=== PATIENT | female | born 1950 | race Caucasian/White ===

== ENCOUNTER 2022-12-22 08:38 | Outpatient (OUT) | payer OTHER, SELFPAY ==
--- NOTE | 2022-12-22 08:52 | US_ITS ---
The [address] [address] Patient Name: BHUPENDRA MIRANDA MRN: [id number] date: 1950 Sex: F Assigned Patient Location: US Current Patient Location: US Accession/Order Number: [id number] Exam Date: 12/22/2022 08:53 Report Date: 12/22/2022 09:41 At the request of: SHAIKH AMRITA Procedure: US right upper quadrant Ultrasound abdomen right upper quadrant HISTORY: Abdominal Pain In Female R10.9 right upper quadrant pain for one year. COMPARISON: None. TECHNIQUE: Dedicated transabdominal right upper quadrant ultrasound was performed. FINDINGS: Gallbladder is surgically absent. The proximal common bile duct measures 5 mm in diameter. There is no intrahepatic bile duct dilatation. Liver demonstrates diffusely increased echogenicity. No discrete liver lesion is seen. The visualized pancreas is normal. Portions of the pancreas are obscured by overlying bowel gas. The right kidney measures 10.3 x 4.8 x 4.5 cm, with a small cyst at the upper pole measuring 0.9 cm. There is no hydronephrosis in the right kidney. There is no fluid in the right upper quadrant. IMPRESSION: 1. Cholecystectomy with normal caliber common bile duct at 5 mm. 2. Diffuse fatty infiltration of the liver. 3. Right kidney with a 0.9 cm cyst. No hydronephrosis. Electronically authenticated by: JUWAN RIOS Date: 12/22/2022 09:41
== END 2022-12-22 08:39 ==
PROVIDERS: PCP Internal Medicine; Visit Provider Internal Medicine
DX: R10.9 Unspecified abdominal pain (principal); Z90.49 Acquired absence of other specified parts of digestive tract
CPT/HCPCS: 76705

== ENCOUNTER 2023-06-26 10:20 | Outpatient (OUT) | payer OTHER, SELFPAY ==
[2023-06-26 10:58] LABS: Basophils Absolute Auto 0.1 10^3/uL (0.0-0.1); Basophils Percent Auto 0.8 % (0.2-2.0); Eosinophils Absolute Auto 0.1 10^3/uL (0.0-0.7); Eosinophils Percent Auto 0.8 % (0.9-7.0); Hematocrit 47.2 % (36.0-48.0); Hemoglobin 14.4 g/dL (12.0-16.0); Immature Granulocytes Abs Auto 0.04 10^3/uL (0.00-0.03); Immature Granulocytes Pct Auto 0.3 % (0.0-0.5); Lymphocytes Absolute Auto 3.2 10^3/uL (1.2-3.8); Lymphocytes Percent Auto 26.1 % (20.5-60.0); Mean Corpuscular HGB Conc 30.5 g/dL (29.9-35.2); Mean Corpuscular Hemoglobin 28.3 pg (26.7-34.0); Mean Corpuscular Volume 92.9 fL (81.0-99.0); Mean Platelet Volume 10.1 fL (9.5-13.5); Monocytes Percent Auto 8.3 % (1.7-12.0); Neutrophils Absolute Auto 7.9 10^3/uL (1.4-6.5); Neutrophils Percent Auto 63.7 % (43.0-75.0); Platelet Count 402 10^3/uL (150-450); Red Blood Count 5.08 10^6/uL (4.20-5.40); Red Cell Distribution Width 15.9 % (11.0-15.0); White Blood Count 12.4 10^3/uL (4.0-11.0)
[2023-06-26 10:59] LABS: Cholesterol 213 mg/dL (<=200); HDL Cholesterol 53 mg/dL (40-60); Thyroid Stimulating Hormone 1.944 uIU/mL (0.358-3.740); Triglycerides 153 mg/dL (<=150); VLDL CHOLESTEROL 30.6 mg/dL
== END 2023-06-26 10:21 | disposition home or self-care (01) ==
LOC: LAB 10:21
PROVIDERS: PCP Internal Medicine; Visit Provider Internal Medicine
DX: D72.829 Elevated white blood cell count, unspecified (principal); G62.9 Polyneuropathy, unspecified; E78.5 Hyperlipidemia, unspecified; G25.81 Restless legs syndrome; K59.04 Chronic idiopathic constipation
CPT/HCPCS: 36415; 80061; 82607; 82728; 82746; 84443; 85025

== ENCOUNTER 2024-01-25 14:31 | Outpatient (OUT) | payer MEDICARE, SELFPAY ==
--- NOTE | 2024-01-25 14:40 | PE_ITS ---
The [address] [address] Patient Name: BHUPENDRA MIRANDA MRN: [id number] date: 1950 Sex: F Assigned Patient Location: PETCT Current Patient Location: PETCT Accession/Order Number: [id number] Exam Date: 01/25/2024 15:39 Report Date: 01/25/2024 23:12 At the request of: SHAIKH AMRITA Procedure: PET skull to mid thigh PET/CT: HISTORY: Pulmonary nodule. COMPARISON: CT chest 12/27/2023, 11/11/2022, CTA abdomen 11/11/2022, CT chest 07/24/2022. TECHNIQUE: The patient was injected with 13.58 mCi of F-18 fluorodeoxyglucose (FDG), and an emission scan was performed from the base of the skull to the mid thigh. Noncontrast CT was performed for attenuation correction and anatomic localization. The blood glucose level was 93 mg/dl. The uptake time was 52 minutes. FINDINGS: HEAD AND NECK: There is a hypermetabolic right parotid nodule on image 20, SUV max 7.1 measuring 6 mm. CHEST: The SUVmax of the mediastinum = 3.2 using the patient's body weight as the normalization method. There is a hypermetabolic pulmonary nodule in the left upper lobe on image 93, SUV max 21.2 measuring 2.4 x 1.8 cm. There is no hypermetabolic mediastinal or hilar adenopathy. ABDOMEN AND PELVIS: There is a focus of increased activity within the ascending colon on image 182 with SUV max 22.4. There is no definite CT correlate. Otherwise normal distribution of activity. MUSCULOSKELETAL SYSTEM: There is intense increased activity adjacent to the right AC joint in the shoulder consistent with degenerative changes. There is an otherwise normal distribution of FDG in the bone marrow. ADDITIONAL CT FINDINGS: There is mild mucosal thickening of the left maxillary sinus consistent with chronic sinusitis. There is severe coronary artery calcification and there is diffuse calcification throughout the thoracoabdominal aorta, iliac and femoral arteries. There is an infrarenal abdominal aortic aneurysm measuring 3.6 x 3.1 cm. This is slightly increased in size compared to the CTA from 11/11/2022 where it was 3.3 x 3.3 cm. The patient is status post hysterectomy. PET/PET skull to mid thigh IMPRESSION: 1. Hypermetabolic left upper lobe pulmonary nodule consistent with malignancy. 2. Hypermetabolic right parotid lesion which may represent a benign parotid neoplasm but a primary malignancy and metastatic disease are not entirely excluded. Consider follow-up CT or MRI of the neck with contrast in 3 months. 3. Focus of increased activity in the ascending colon which may be physiologic in nature but a benign or malignant polyp cannot be excluded. Consider colonoscopy. 4. Additional CT findings as described above including a 3.6 x 3.1 cm abdominal aortic aneurysm. Recommend follow-up every one year. ABDOMINAL AORTIC ANEURYSM MANAGEMENT RECOMMENDATIONS: 2.6-2.9 cm: Follow-up every 5 years* 3.0-3.4 cm: Follow-up every 3 years. 3.5-3.9 cm: Follow-up every 1 year. 4.0-4.4 cm: Follow-up every 1 year. Recommend vascular consultation. 4.5-5.4 cm: Follow-up every 6 months. Recommend vascular consultation. Greater than or equal to 5.5 cm: Referral to vascular surgeon. *For abdominal aortas with maximum diameter of 2.6-2.9 cm meeting criteria for AAA (>50% of proximal normal segment). Reference: J Vasc Surg. 2009 Apr;50(4 Suppl):S2-49 Electronically authenticated by: ROMEL ACOSTA Date: 01/25/2024 23:12
== END 2024-01-25 14:32 | disposition home or self-care (01) ==
PROVIDERS: PCP Internal Medicine; Visit Provider Internal Medicine
DX: R91.8 Other nonspecific abnormal finding of lung field (principal)
CPT/HCPCS: 78815; A9552

== ENCOUNTER 2024-02-12 13:19 | Outpatient (OUT) | payer MEDICARE, SELFPAY ==
--- OUTSIDE RECORDS SUMMARY | 2024-02-12 13:29 | XMS_ITS | CCD ---
Author Organization [facility] Care Team Providers Care Sensor Technician Name Role Phone FAWWAD, RO H Admitting Unavailable FAWWAD, RO H Attending Unavailable FAWWAD, RO H Primary Care Unavailable FAWWAD, RO H Consulting Unavailable FAWWAD, RO H Admitting Unavailable FAWWAD, RO H Attending Unavailable FAWWAD, RO H Primary Care Unavailable DR ROMEL CERVANTES Consulting Unavailable FAWWAD, RO H Consulting Unavailable FAWWAD, RO H Admitting Unavailable FAWWAD, RO H Attending Unavailable FAWWAD, RO H Primary Care Unavailable DR ROMEL CERVANTES Consulting Unavailable FAWWAD, RO H Consulting Unavailable SAMSA ., LEIGH Admitting Unavailable SAMSA ., LEIGH Attending Unavailable FAWWAD, RO H Primary Care Unavailable SAMSA ., LEIGH Consulting Unavailable RASTEGAR, RADHA Consulting Unavailable FAWWAD, RO H Admitting Unavailable FAWWAD, RO H Attending Unavailable FAWWAD, RO H Primary Care Unavailable FAWWAD, RO H Primary Care Unavailable AMANDA PINEDO Admitting Unavailable AMANDA PINEDO Attending Unavailable TIAGO THOMSON Consulting UnavailAMANDA Penn Consulting Unavailable LAYNE HO Consulting Unavailable THOMAS, ANDRES Consulting Unavailable DR ARMANDO EASLEY Admitting Unavailable TRISTA Morgan, DR ROBERTS Attending Unavailable FAWWAD, RO H Primary Care Unavailable DR ARMANDO EASLEY Consulting Unavailable FAWWAD, RO H Admitting Unavailable FAWWAD, RO H Attending Unavailable FAWWAD, RO H Primary Care Unavailable FAWWAD, RO Primary Care Physician Cherelle Bautista Unavailable Nigel Valladares Unavailable [phone] Armando RIVERA Attending Unavailable [facility], [facility] Primary Care Unavailable Lianet, Brigette A Attending Unavailable Lianet, Brigette A Admitting Unavailable [facility], [facility] Primary Care [facility]available [facility] Primary Care Unavailable FAWWAD, [facility] Primary Care Unavailable Lianet, Brigette A Attending Unavailable Armando RIVERA Attending Unavailable FAWWAD, [facility] Primary Care Unavailable Lianet, Brigette A Attending Unavailable FAWWAD, [facility] Primary Care Unavailable Lianet, Brigette A Referring Unavailable Lianet, Brigette A Admitting Unavailable Lianet, Brigette A Attending Unavailable Lianet, Brigette A Referring Unavailable Lianet, Brigette A Admitting Unavailable [facility] Primary Care Unavailable Lianet, Brigette A Attending Unavailable Lianet, Brigette A Admitting Unavailable [facility], [facility] Primary Care Unavailable Aung FARFAN, [facility] Primary Care Provider Shaikh Horan MD Unavailable MD Aung [facility] Primary Care Provider [phone] MD Bernardino Gifford Emergency Provider VONDA Bautista Attending Provider SHAIKH HORAN Attending Unavailable SHAIKH HORAN Attending Unavailable AUNG RO Attending Unavailable SHAIK HORANH Attending Unavailable Bernardino Gifford Attending Unavailable Bernardino Gifford Admitting Unavailable [facility] Primary Care Unavailable [facility], [facility] Primary Care Unavailable Cherelle Bautista Attending Unavailable Cherelle Bautista Admitting Unavailable Cherelle Bautista Attending Unavailable Cherelle Bautista Admitting Unavailable Allergies Allergy Classification Reported Allergen(s) Allergy Type Date of Onset Reaction(s) Facility (1 source) No Known Medication Allergies; 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: [No Known Medication Allergies] Propensity to adverse reactions (disorder) [facility] Repository Medications Current Medications Medication Drug Class(es) Dates Sig (Normalized) Sig (Original) 30 ACTUAT fluticasone furoate 0.2 MG/ACTUAT / umeclidinium 0.0625 MG/ACTUAT / vilanterol 0.025 MG/ACTUAT Dry Powder Inhaler [Trelegy] (2 sources) Trelegy Ellipta 200-62.5-25 MCG/ACT Inhalation for 30 Days Active [id number] 200 actuat albuterol 0.09 mg/actuat metered dose inhaler (3 sources) beta2-Adrenergic Agonist Start: 12-30-2023 Albuterol Sulfate Active INHALATION December 30, 2023 12:00am Start: 07-02-2023 take 2 puff(s) by in halation every four hours albuterol HFA 90 mcg/act inhaler Inhale 2 puffs every 4 (four) hours if needed for shortness of breath 0 07/02/2023 Active aspirin 81 mg delayed release oral tablet (4 sources) Platelet Aggregation Inhibitor, Nonsteroidal Anti-inflammatory Drug Start: 12-27-2023 take 81 mg by mouth once daily Aspirin Active 81 MG PO Daily December 27, 2023 12:00am Baby Aspirin Act thelma atorvastatin 80 mg oral tablet (13 sources) HMG-CoA Reductase Inhibitor Start: 12-27-2023 take 1 tablet by mouth once daily Atorvastatin Active 80 MG PO Daily December 27, 2023 12:00am FreeTextSig: Oral; Note: Source Status: Taking; Qty: 90 Tablet; Provider: Jacquelyn Manning ( ) Start: 07-02-2023 take 1 tablet by edelmira th in the morning atorvastatin (Lipitor) 80 MG tablet Take 1 tablet by mouth in the morning. 0 07/02/2023 Active Start: 06-09-2022 take 1 mg by mouth once daily atorvastatin 80 mg Tab mg tab(s), Oral, Daily, Refills(s) 0 Start Date: 06/09/22 Status: Ordered dicyclomine hydrochloride 20 mg oral tablet (5 sources) Anticholinergic Start: 12-27-2023 take 1 tablet by mouth three times daily Dicyclomine Active 20 MG PO Three times daily December 27, 2023 12:00am FreeTextSig: TAKE 1 TABLET BY MOUTH THREE TIMES DAILY Oral; Note: Source Status: Taking; Refills: 0; Qty: 90 Each; Provider: Aung Ro take 1 tablet by edelmira th three times daily Dicyclomine HCl 20 MG TAKE 1 TABLET BY M OUT THREE TIMES DAILY Oral for 30 Days Active esomeprazole 40 mg delayed release oral capsule (7 sources) Proton Pump Inhibitor Start: 12-24-2022 End: 03-24-2023 take 1 capsule by mouth once daily esomeprazole 40 mg Cap-EC 40 mg = 1 cap(s), Oral, Daily, # 90 cap(s), Refills(s) 0, [facility], 12/24/22 10:00:00 EDT, Height/Length Dosing, 67.6, kg, 12/24/22 10:00:00 EDT, Weight Dosing Start Date: 02/18/23 Status: Ordered ezetimibe 10 mg oral tablet (4 sources) Dietary Cholesterol Absorption Inhibitor Start: 12-27-2023 take 10 mg by mouth once daily in the morning Ezetimibe Active 10 MG PO Every morning December 27, 2023 12:00am Start: 07-09-2023 End: 10-07-2023 take 1 tablet by mouth in the morning ezetimibe (Zetia) 10 MG tablet Indications: Hyperlipidemia, unspecified hyperlipidemia type (CMS/HCC) Take 1 tablet (10 mg) by mouth in the morning. 30 tablet 2 07/09/2023 10/07/2023 Active ferrous sulfate 325 mg delayed release oral tablet (4 sources) Start: 01-06-2023 End: 05-19-2023 take 1 tablet by mouth once daily ferrous sulfate 325 mg oral enteric coated tablet 325 mg = 1 tab(s), Oral, Daily, X 90 day(s), # 90 tab(s), Refills(s) 0, [facility], cm, 12/24/22 10:00:00 EDT, Height/Length Dosing, 67.6, kg, 12/24/22 10:00:00 EDT, Weight Dosing Start Date: 02/18/23 Stop Date: 05/19/23 Status: Ordered Fluticasone-Umec lidin-Vilanter (2 sources) Anticholinergic , Corticosteroid, beta2-Adrenergi c Agonist Start: 12-30-2023 Fluticasone-Umeclidi n-Vilanter (Trelegy Ellipta) 100-62.5-25 mcg blister with device Active INHALATION December 30, 2023 12:00am Fluticasone-Umec lidin-Vilant (Trelegy Ellipta) 200-62.5-25 MCG/ACT aerosol powder (1 source) Start: 08-20-2023 End: 11-18-2023 take 1 puff(s) by inhalation in the morning Fluticasone-Umeclidi n-Vilant (Trelegy Ellipta) 200-62.5-25 MCG/ACT aerosol powder Indications: Moderate COPD (chronic obstructive pulmonary disease) (CMS/HCC) Inhale 1 puff in the morning. 28 each 2 08/20/2023 11/18/2023 Active Fluticasone-Umec lidin-Vilanter (3 sources) Start: 12-27-2023 Fluticasone-Um eclidi n-Vilanter (Trelegy Ellipta) 200-62.5-25 mcg blister with device Active 1 INH INHALATION Daily December 27, 2023 12:00am FreeTextSig: Inhalation; Note: Source Status: Taking; Qty: 60 Each; Provider: Jacquelyn Manning ( ) folic acid 1 mg oral tablet (7 sources) Start: 12-27-2023 take 1 tablet by mouth once daily Folic Acid Active 1 MG PO Daily December 27, 2023 12:00am FreeTextSig: TAKE 1 TABLET BY MOUTH DAILY Oral; Note: Source Status: Taking; Refills: 0; Qty: 30 Each; Provider: Lianet Machuca Start: 02-18-2023 take 1 tablet by edelmira th once daily folic acid 1 mg Tab 1 mg = 1 tab(s), Oral, Daily, # 90 tab(s), Refills(s) 0, Pharmacy: [facility], 159, cm, 12/24/22 10:00:00 EDT, Height/Length Dosing, 67.6, kg, 12/24/22 10:00:00 EDT, Weight Dosing Start Date: 02/18/23 Status: Ordered Start: 01-06-2023 End: 02-05-2023 take 1 tablet by mouth once daily folic acid 1 mg Tab 1 mg = 1 tab(s), Oral, Daily, X 30 day(s), # 30 tab(s), Refills(s) 0, Pharmacy: [facility], 159, cm, 12/24/22 10:00:00 EDT, Height/Length Dosing, 67.6, kg, 12/24/22 10:00:00 EDT, Weight Dosing Start Date: 01/06/23 Stop Date: 02/05/23 Status: Ordered gabapentin 300 mg oral capsule (11 sources) Anti-epileptic Agent Start: 12-27-2023 take 300 mg by mouth three times daily Gabapentin Active 300 MG PO Three times daily December 27, 2023 12:00am Start: 08-04-2023 take 1 capsule by mo uth in the morning, then take 1 capsule by mouth in the evening, then take 1 capsule by mouth at bedtime gabapentin (Neurontin) 300 MG capsule Indications: Other polyneuropathy Take 1 capsule (300 mg) by mouth in the morning and 1 capsule (300 mg) in the evening and 1 capsule (300 mg) before bedtime. 90 capsule 2 08/04/2023 Active Start: 06-09-2022 take 1 mg by mouth t hree times daily gabapentin 300 mg Cap mg cap(s), Oral, TID, Refills(s) 0 Start Date: 06/09/22 Status: Ordered nicotine 4 mg oral lozenge (2 sources) Cholinergic Nicotinic Agonist Start: 07-09-2023 nicotine (Nicotine S tep 1) 21 MG/24HR patch Indications: Tobacco dependency Place 1 patch over 24 hours on the skin 1 (one) time each day at the same time 30 patch 0 07/09/2023 Active Start: 07-09-2023 nicotine polac rilex (Commit) 4 MG lozenge Indications: Tobacco dependency Dissolve 1 lozenge (4 mg) in the mouth every 2 (two) hours if needed for smoking cessation 30 lozenge 1 07/09/2023 Active pantoprazole 40 mg delayed release oral tablet (6 sources) Proton Pump Inhibitor Start: 12-27-2023 take 1 tablet by mouth once daily Pantoprazole Active 40 MG PO Daily December 27, 2023 12:00am FreeTextSig: TAKE 1 TABLET BY MOUTH DAILY Oral; Note: Source Status: Taking; Refills: 0; Qty: 30 Each; Provider: Aung Ro Start: 08-04-2023 take 1 tablet by edelmira th once daily pantoprazole (ProtoNix) 40 MG EC tablet Indications: Gastroesophageal reflux disease without esophagitis TAKE 1 TABLET BY MOUTH EVERY DAY 30 tablet 0 08/04/2023 Active take 1 tablet by edelmira th once daily Pantoprazole Sodium 40 MG TAKE 1 TABLET BY MOUTH DAILY Oral for 30 Days Active Miralax (6 sources) Osmotic Laxative Start: 12-24-2022 MiraLax Refil l(s) 0 Start Date: 12/24/22 Status: Ordered rOPINIRole 0.5 mg oral tablet (5 sources) Nonergot Dopamine Agonist Start: 12-27-2023 take 0.5 mg by mouth once daily at bedtime Ropinirole Active 0.5 MG PO Daily at bedtime December 27, 2023 12:00am Start: 08-20-2023 End: 11-18-2023 take 1 tablet by mouth at bedtime rOPINIRole (Requip) 0.5 MG tablet Indications: Restless Leg Syndrome Take 1 tablet (0.5 mg) by mouth at bedtime 90 tablet 0 08/20/2023 11/18/2023 Active traZODone hydrochloride 100 mg oral tablet (13 sources) Serotonin Reuptake Inhibitor Start: 12-27-2023 take 1 tablet by mouth once daily Trazodone Active 100 MG PO Daily December 27, 2023 12:00am FreeTextSig: TAKE 1 TABLET BY MOUTH DAILY Oral; Note: Source Status: Taking; Refills: 0; Qty: 30 Each; Provider: Aung Ro Start: 07-02-2023 take 1 tablet by edelmira th at bedtime traZODone (Desyrel) 100 MG tablet Take 1 tablet by mouth at bedtime 0 07/02/2023 Active Start: 06-09-2022 traZODONE 100 mg Tab mg tab(s), Oral, Refills(s) 0 Start Date: 06/09/22 Status: Ordered varenicline (2 sources) Partial Cholinergic Nicotinic Agonist Start: 12-30-2023 Varenicline Active TAB PO December 30, 2023 12:00am zolpidem tartrate 10 mg oral tablet (3 sources) gamma-Aminobutyric Acid-ergic Agonist Start: 12-27-2023 take 10 mg by mouth once daily at bedtime Zolpidem Active 10 MG PO Daily at bedtime December 27, 2023 12:00am Completed/Discontinued Medications Medication Drug Class(es) Dates Sig (Normalized) Sig (Original) Albuterol (Eqv-ProAir HFA) 90 mcg/inh inhalation aerosol (6 sources) Start: 08-11-2022 take 2 puff(s) by mouth every four hours as needed Albuterol (Eqv-ProAir HFA) 90 mcg/inh inhalation aerosol Refill(s) 0, 8 gm, INHALE 2 PUFFS BY MOUTH EVERY 4 HOURS NEEDED for SHORTNESS OF BREATH Start Date: 08/11/22 Status: Ordered amLODIPine 10 mg oral tablet (4 sources) Dihydropyridine Calcium Channel Tristian Start: 12-27-2023 End: 12-30-2023 take 10 mg by mouth once daily in the morning Amlodipine Discontinued 10 MG PO Every morning December 27, 2023 12:00am December 30, 2023 9:41am Start: 08-04-2023 End: 11-02-2023 take 1 tablet by mouth in the morning amLODIPine (Norvasc) 10 MG tablet Indications: Primary hypertension (CMS/HCC) Take 1 tablet (10 mg) by mouth in the morning. 30 tablet 2 08/04/2023 11/02/2023 Active ciprofloxacin 500 mg oral tablet (6 sources) Quinolone Antimicrobial Start: 08-14-2022 take 1 tablet by mouth once daily Cipro 500 mg Tab 500 mg = 1 tab(s), Oral, Daily, Take 1 tablet the day before the procedure and 1 tablet after the procedure, # 2 tab(s), Refills(s) 0, Pharmacy: [id number], 159, cm, 08/11/22 13:12:00 EST, Height/Length Dosing, 64, kg, 08/11/22 13:12:0... Start Date: 08/14/22 Status: Ordered polyethylene glycol 3350 [id number] mg / potassium chloride 1480 mg / sodium bicarbonate 5720 mg / sodium chloride 54335 mg powder for oral solution (6 sources) Osmotic Laxative Start: 12-24-2022 NuLYTELY Fuentes oral powder for reconstitution See Instructions, 1 EA, Refill(s) 0, Prior to colonoscopy., [facility], 159, cm, 12/24/22 10:00:00 EDT, Height/Length Dosing, 67.6, kg, 12/24/22 10:00:00 EDT, Weight Dosing Start Date: 12/24/22 Status: Ordered Problems Active Problems Problem Classification Problem Date Documented Date Episodic/Chronic Abdominal pain (14 sources) Unspecified abdominal pain; 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: [Upper abdominal pain] Onset: 11-13-2022 Episodic Aortic; peripheral; and visceral artery aneurysms (3 sources) Aneurysm of infrarenal abdominal aorta ; 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: [Infrarenal abdominal aortic aneurysm, without rupture] Onset: 07-09-2023 07-09-2023 Chronic Chronic obstructive pulmonary disease and bronchiectasis (3 sources) Centrilobular emphysema; 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: [Moderate chronic obstructive pulmonary disease] Onset: 11-02-2022 08-20-2023 Chronic Disorders of lipid metabolism (13 sources) Hyperlipidemia; 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: [Hyperlipidemia, unspecified] Onset: 05-07-2022 06-09-2022 Chronic Esophageal disorders (8 sources) Gastroesophageal reflux disease without esophagitis; 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: [Gastro-esophageal reflux disease without esophagitis] Onset: 12-24-2022 Chronic Essential hypertension (10 sources) Hypertensive disorder; 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: [Essential (primary) hypertension] Onset: 09-03-2022 06-09-2022 Chronic Genitourinary symptoms and ill-defined conditions (12 sources) Mixed incontinence; 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: [Incontinence] Onset: 06-09-2022 Chronic Genitourinary symptoms and ill-defined conditions (20 sources) H/O: urinary disease; 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: [Personal history of other diseases of urinary system] Onset: 05-11-2022 Episodic Malaise and fatigue (1 source) Weakness; 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: [Weakness] Onset: 12-27-2023 Episodic Menopausal disorders (1 source) Postmenopausal atrophic vaginitis; 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: [POSTMENOPAUSAL ATROPHIC VAGINITIS] Onset: 09-03-2022 Chronic Nonspecific chest pain (3 sources) Chest pain, unspecified; 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: [CHEST PAIN UNSPECIFIED] Onset: 11-11-2022 Episodic Occlusion or stenosis of precerebral arteries (5 sources) Left carotid artery stenosis; 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: [Occlusion and stenosis of left carotid artery] Chronic Other aftercare (1 source) Other [facility] (current) drug therapy; 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: [OTH CLOTH FEEDER CURRENT DRUG THERAPY] Onset: 11-13-2022 Episodic Other aftercare (1 source) longterm (current) use of aspirin; 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: [LONGTERM CURRENT USE OF ASPIRIN] Onset: 11-13-2022 Episodic Other and ill-defined heart disease (7 sources) Heart disease 06-09-2022 Chronic Other and unspecified benign neoplasm (7 sources) History of polyp of colon; 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: [Personal history of colonic polyps] Onset: 12-24-2022 Episodic Other circulatory disease (1 source) Personal history of transient ischemic attack (TIA), and cerebral infarction without residual deficits; 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: [PERS HX TIA AND CI NO RESID DEFICIT] Onset: 09-03-2022 Episodic Other circulatory disease (1 source) History of cerebrovascular accident; 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: [Personal history of transient ischemic attack (TIA), and cerebral infarction without residual deficits] Onset: 07-09-2023 07-09-2023 Episodic Other circulatory disease (3 sources) Low blood pressure; 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: [Hypotension, unspecified] 12-27-2023 Episodic Other hereditary and degenerative nervous system conditions (2 sources) Restless legs; 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: [Restless legs syndrome] Onset: 07-09-2023 08-20-2023 Chronic Other lower respiratory disease (4 sources) Other nonspecific abnormal finding of lung field; 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: [OTH NONSPECIFIC ABN FIND LNG FIELD] Onset: 10-27-2022 Episodic Other lower respiratory disease (3 sources) Lung mass; 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: [Other nonspecific abnormal finding of lung field] 12-27-2023 Episodic Other nervous system disorders (1 source) Polyneuropathy; 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: [Polyneuropathy, unspecified] Onset: 07-09-2023 07-09-2023 Chronic Other screening for suspected conditions (not mental disorders or infectious disease) (6 sources) Encounter for screening for malignant neoplasm of respiratory organs; 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: [Encounter for screening mammogram for malignant neoplasm of breast] Onset: 07-09-2022 Episodic Prolapse of female genital organs (2 sources) Cystocele, unspecified; 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: [Rectocele] Onset: 09-03-2022 Chronic Residual codes; unclassified (1 source) Acquired absence of other specified parts of digestive tract; 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: [ACQ ABSENCE OTH PART DIGESTV TRACT] Onset: 11-13-2022 Episodic Residual codes; unclassified (1 source) Acquired absence of both cervix and uterus; 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: [ACQUIRED ABSENCE BOTH CERVIX AND UTERUS] Onset: 09-03-2022 Episodic Substance-related disorders (9 sources) Nicotine dependence, cigarettes, uncomplicated; 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: [Smoker] Onset: 07-24-2022 Chronic Unclassified (1 source) Abdominal aortic aneurysm, without rupture, unspecified; 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: [Abdominal aortic aneurysm, without rupture, unspecified] Onset: 12-30-2023 Unclassified (1 source) Occlusion and stenosis of bilateral carotid arteries; 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: [Occlusion and stenosis of bilateral carotid arteries] Onset: 03-25-2023 Past or Other Problems Problem Classification Problem Date Documented Da te Episodic/Chronic Mood disorders (1 source) Mood disorders Onset: 07-09-2023 07-09-2023 Other circulatory disease (6 sources) History of transient ischemic attack Onset: 05-11-2022 08-11-2022 Episodic Unclassified (1 source) Abdominal aortic aneurysm (AAA) without rupture, unspecified part I71.40 Results Test Name Value Interpretation Reference Range Facility US aortaon 12-30-2023 US aorta [facility] [address] [place] [address] Ultrasound Report Signed Patient: Bhupendra Rubi MR#: [id number] : 1950 Acct:[id number] Age/Sex: 73 / F ADM Date: 12/30/23 Loc: [facility] Room: Type: [facility] Attending Dr: Cherelle Bautista FIELD ENUMERATOR-C Ordering Provider: Cherelle Bautista APRN Date of Service: 12/30/23 US/US aorta: I71.4 Copies to: Cherelle Bautista APRN ULTRASOUND OF THE ABDOMINAL AORTA: CLINICAL INFORMATION: Follow-up known abdominal aortic aneurysm COMPARISON : CT scan 2022 TECHNIQUE AND FINDINGS: Multiple ultrasonographic scans of the abdominal aorta were obtained and show small abdominal aortic aneurysm Following measurement were obtained: Proximal height: 2.59 cm width : 2.6 Mid height: 2.56 cm width : 2.5 Distal height: 3.38 cm width : 3.4 Bilateral common iliac arteries showmild aneurysmal change and measure 1.4 in height and 1.3 in width on the right and 1.6 in height and 1.1 in width on the left US/US aorta IMPRESSION: SMALL ABDOMINAL AORTIC ANEURYSM. BY CT SCAN THIS ANEURYSM IS JUXTARENAL. SMALL BILATERAL ILIAC ANEURYSMS. NO SIGNIFICANT CHANGE FROM PRIOR STUDY. Impression dictated by: Adam Keller M.D.12/30/2023 9:53 AM Dictation Location: [place] [address] Tech: Yakelin Gibson Transcribed By: JOSE MIGUEL 12/30/2353 Dictated By: Adam Keller MD 12/30/2349 Signed By: 12/30/2353 Normal [facility] ABO/Rh Retypeon 12-27-2023 ABO/RH Recheck Result Positive Normal [facility] Comment on above: Result Comment: PERF ORMED BY: [address] [id number] PATHOLOGIST CREAMERY WORKER JENNIFER ALANIZ M.D. Activated partial thrombopla stin time (aPTT) in platelet poor plasma by coagulation aOrdered By: Bernardino Gifford on 12-27-2023 aPTT Coag (PPP) [Time] 24.6 s 25.1-36.5 [facility] Comment on above: A hematocrit value g reater than 55% may lead to inaccurate results in coagulation testing. Patients having hematocrit values >55% require a special collection tube for coagulation studies. Please contact the laboratory at [phone] for redraw instructions. Alanine aminotransferase [En zymatic activity/volume] in Serum or PlasmaOrdered By: Bernardino Gifford on 12-27-2023 ALT [Catalytic activity/Vol] 10 U/L Normal 7-52 [facility] Comment on above: Performed By: #### C MP, CBC, HS TROP, CK #### [address] Albumin [Mass/volume] in Ser um or Plasma by Bromocresol green (BCG) dye binding methoOrdered By: Bernardino Gifford on 12-27-2023 Albumin BCG dye [Mass/Vol] 4.0 g/dL 3.5-5.7 [facility] Alkaline phosphatase [Enzyma tic activity/volume] in Serum or PlasmaOrdered By: Bernardino Gifford on 12-27-2023 ALP [Catalytic activity/Vol] 105 U/L High 34-104 [facility] Comment on above: Performed By: #### C MP, CBC, HS TROP, CK #### [address] Arterial Blood [place] 024 ABG Base Excess -2.4 mmol/L Normal -3.0-3.0 [facility] Comment on above: Performed By: #### C MP, CBC, HS TROP, CK #### [address] ABG Frac Inspired O2 32 % Normal [facility] Comment on above: Performed By: #### C MP, CBC, HS TROP, CK #### [address] ABG Liter Flow 3 Normal [facility] Comment on above: Performed By: #### C MP, CBC, HS TROP, CK #### [address] ABG Oxygen Content 7.5 mmol/L Normal 6.6-9.7 [facility] Comment on above: Performed By: #### C MP, CBC, HS TROP, CK #### [address] ABG Oxygen Saturation 95.5 % Normal 95.0-100.0 [facility] Comment on above: Performed By: #### C MP, CBC, HS TROP, CK #### [address] ABG PCO2 46.7 mm[Hg] High 35.0-45.0 [facility] Comment on above: Performed By: #### C MP, CBC, HS TROP, CK #### [address] ABG PH 7.33 Low 7.35-7.45 [facility] Comment on above: Performed By: #### C MP, CBC, HS TROP, CK #### [address] ABG PO2 84.0 mm[Hg] Normal 80.0-100.0 [facility] Comment on above: Performed By: #### C MP, CBC, HS TROP, CK #### [address] Oxygen Device Nasal Cannula Normal [facility] Comment on above: Performed By: #### C MP, CBC, HS TROP, CK #### [address] Respiratory Critical Normal [facility] Comment on above: Result Comment: Crit ical Value called on: 12/27/2023 at 11:36 PERFORMED BY: [place] [address] PATHOLOGIST CREAMERY WORKER JENNIFER ALANIZ M.D. Performed By: #### C MP, CBC, HS TROP, CK #### [address] VBG Draw Site Left Radial Normal [facility] Comment on above: Performed By: #### C MP, CBC, HS TROP, CK #### [address] Arterial Blood GasOrdered By : Bernardino Gifford on 12-27-2023 CO2 [Moles/Vol] 25.3 mmol/L Normal 23.0-27.0 [facility] Comment on above: Performed By: #### C MP, CBC, HS TROP, CK #### [address] HCO3 (Bld) [Moles/Vol] 23.8 mmol/L Normal 23.0-29.0 [facility] Comment on above: Performed By: #### C MP, CBC, HS TROP, CK #### [address] Aspartate aminotransferase [ Enzymatic activity/volume] in Serum or PlasmaOrdered By: Bernardino Gifford on 12-27-2023 AST [Catalytic activity/Vol] 10 U/L Low 13-39 [facility] Comment on above: Performed By: #### C MP, CBC, HS TROP, CK #### [address] Automated basophil %Ordered By: Bernardino Gifford on 12-27-2023 Basophils/100 WBC (Bld) 0.6 % Normal . [facility] Comment on above: Performed By: #### C MP, CBC, HS TROP, CK #### [address] Automated basophil countOrde red By: Bernardino Gifford on 12-27-2023 Basophils (Bld) [#/Vol] 0.1 10*3/uL Normal 0.0-0.2 [facility] Comment on above: Result Comment: PERF ORMED BY: [place] [address] PATHOLOGIST CREAMERY WORKER JENNIFER ALANIZ M.D. Performed By: #### C MP, CBC, HS TROP, CK #### [address] Automated blood monocyte cou ntOrdered By: Bernardino Gifford on 12-27-2023 Monocytes (Bld) [#/Vol] 1.3 10*3/uL High 0.0-0.8 [facility] Comment on above: Performed By: #### C MP, CBC, HS TROP, CK #### [address] Automated eosinophil %Ordere d By: Bernardino Gifford on 12-27-2023 Eosinophils/100 WBC (Bld) 0.6 % Normal . [facility] Comment on above: Performed By: #### C MP, CBC, HS TROP, CK #### [address] Automated eosinophil countOr dered By: Bernardino Gifford on 12-27-2023 Eosinophils (Bld) [#/Vol] 0.1 10*3/uL Normal 0.0-0.45 [facility] Comment on above: Performed By: #### C MP, CBC, HS TROP, CK #### [address] [place] [address] [place] Automated monocyte %Ordered By: Bernardino Gifford on 12-27-2023 Monocytes/100 WBC (Bld) 9.8 % Normal . [facility] Comment on above: Performed By: #### C MP, CBC, HS TROP, CK #### [address] Automated neutrophil %Ordere d By: Bernardino Gifford on 12-27-2023 Neutrophils/100 WBC (Bld) 61.6 % Normal . [facility] Comment on above: Performed By: #### C MP, CBC, HS TROP, CK #### [address] BNP ser/plasOrdered By: Urbano Gifford on 12-27-2023 Natriuretic peptide B (Bld) [Mass/Vol] 32.0 pg/mL Normal 5-100 [facility] Comment on above: Result Comment: PERF ORMED BY: [place] [address] PATHOLOGIST CREAMERY WORKER JENNIFER ALANIZ M.D. Performed By: #### C MP, CBC, HS TROP, CK #### [address] Bacteria [Presence] in Urine sediment by Light microscopyOrdered By: Bernardino Gifford on 12-27-2023 Bacteria LM Ql (Urine sed) 1+ [HPF] None Seen [facility] Comment on above: Microscopic results may be affected due to low specimen volume. Bilirubin Test strip Ql (U)O rdered By: Bernardino Gifford on 12-27-2023 Bilirubin Ql (U) Negative Negative [facility] Bilirubin.total [Mass/volume ] in Serum or PlasmaOrdered By: Bernardino Gifford on 12-27-2023 Bilirubin [Mass/Vol] 0.3 mg/dL Normal 0.3-1.0 [facility] Comment on above: Performed By: #### C MP, CBC, HS TROP, CK #### [address] Blood Cultureon 12-27-2023 Bacteria identified Cx Nom (Bld) NO GROWTH 5 DAYS PERFORMED BY: [place] [address] PATHOLOGIST CREAMERY WORKER JENNIFER ALANIZ M.D. Normal [facility] Comment on above: Performed By: #### C MP, CBC, HS TROP, CK #### [address] Bacteria identified Cx Nom (Bld) NO GROWTH 5 DAYS PERFORMED BY: [place] [address] PATHOLOGIST CREAMERY WORKER JENNIFER ALANIZ M.D. Normal [facility] Comment on above: Performed By: #### C MP, CBC, HS TROP, CK #### [address] angio chest PE protocolon 12-27-2023 CT angio chest PE protocol [facility] [place] [address] [place] [address] CT Scan Report Signed Patient: Bhupendra Rubi MR#: [id number] 306 : 1950 Acct:[id number] Age/Sex: 73 / F ADM Date: 12/27/23 Loc: ER Room: Type: [facility] ER Attending Dr: Copies to: Bernardino Gifford MD Ordering Provider: Bernardino Gifford MD Date of Service: 12/27/23 CT/CT angio chest PE protocol: Hypotension, elevated D-dimer CTA Chest with PE protocol TECHNIQUE: Axial imaging with 2-D and 3-D reconstruction. 90cc of Isovue-[address] exam was performed using one or more the following dose reduction techniques: Automated exposure control, adjustment of the MA and/or Kv according to patient size, or use of the iterative reconstruction technique. History: Hypertension. Elevated d-dimer COMPARISON: 11/11/22 THYROID: Unremarkable TRACHEA AND BRONCHI: Patent ESOPHAGUS: Unremarkable. HEART: Within normal limits PERICARDIAL EFFUSION: None CORONARY ARTERY CALCIFICATION: None MEDIASTINUM: No adenopathy. No pneumoperitoneum. No mediastinal hematoma. PULMONARY MALCOLM: No hilar mass or adenopathy is seen. THORACIC AORTA Unremarkable PULMONARY EMBOLUS: None LUNG NODULE 2.2 cm mass in the lateral portion of the LEFT upper lobe near the fissure identified. LUNGS: Mild atelectasis. PLEURAL EFFUSION: None PNEUMOTHORAX: No pneumothorax seen. CHEST WALL: No abnormality AXILLA: Unremarkable BONY STRUCTURES Intact UPPER ABDOMEN: Hepatic steatosis. CT/CT angio chest PE protocol IMPRESSION: No acute pulmonary embolus. Development of 2.2 cm LEFT upper lobe peripheral mass. Concern for malignancy. This could be further assessed with PET CT imaging. The basilar atelectasis. Impression dictated by: Adam Berger M.D.12/27/2023 12:14 PM Dictation Location: [place] [address] Transcribed By: [facility] 12/27/23 121 Dictated By: Adam Berger DO 12/27/23 1210 Signed By: 12/27/23 121 Normal [facility] Calcium [Mass/volume] in Ser um or PlasmaOrdered By: Bernardino Gifford on 12-27-2023 Calcium [Mass/Vol] 9.3 mg/dL Normal 8.6-10.3 [facility] Comment on above: Performed By: #### C MP, CBC, HS TROP, CK #### [facility] [address] [place] [address] [place] Carbon dioxide, total [Moles /volume] in Serum or PlasmaOrdered By: Bernardino Gifford on 12-27-2023 CO2 [Moles/Vol] 26.9 mmol/L Normal 21.0-31.0 [facility] Comment on above: Performed By: #### C MP, CBC, HS TROP, CK #### [facility] [address] [place] [address] [place] Chloride [Moles/volume] in S [place] or PlasmaOrdered By: Bernardino Gifford on 12-27-2023 Chloride [Moles/Vol] 104 mmol/L Normal 98-107 [facility] Comment on above: Performed By: #### C MP, CBC, HS TROP, CK #### [facility] [address] [place] [address] [place] Color of Urine by AutoOrdere d By: Bernardino Gifford on 12-27-2023 Color (U) Yellow Normal Yellow [facility] Comment on above: Order Comment: Name Collection Type:: Clean-Voided Midstream Performed By: #### A DDONUAPLUS, CUU #### [address] Complete Blood Count Auto Di ffon 12-27-2023 Mean Corpuscular HGB Conc 33.0 g/dL Normal 32.0-35.0 [facility] Comment on above: Performed By: #### C MP, CBC, HS TROP, CK #### [address] Monocytes/100 WBC (Bld) 19.53 % Normal 0.00-20.00 [facility] Comment on above: Performed By: #### C MP, CBC, HS TROP, CK #### [address] NRBC% 0.1 /100{WBC} Normal 0-0.5 [facility] Comment on above: Performed By: #### C MP, CBC, HS TROP, CK #### [address] Comprehensive Metabolic Pane agata 12-27-2023 Albumin [Mass/Vol] 4.0 g/dL Normal 3.5-5.7 [facility] Comment on above: Performed By: #### C MP, CBC, HS TROP, CK #### [address] Creatinine Clr Calc Pharmacy 50.59 Normal [facility] Comment on above: Result Comment: PERF ORMED BY: [place] [address] PATHOLOGIST CREAMERY WORKER JENNIFER ALANIZ M.D. Performed By: #### C MP, CBC, HS TROP, CK #### [address] GFR/1.73 sq M.predicted MDRD (S/P/Bld) [Vol rate/Area] mL/min/{1.73_m2} Normal [facility] Comment on above: Performed By: #### C MP, CBC, HS TROP, CK #### [address] Creatine kinase [Enzymatic a ctivity/volume] in Serum or PlasmaOrdered By: Bernardino Gifford on 12-27-2023 CK [Catalytic activity/Vol] 41 U/L Normal 30-223 [facility] Comment on above: Performed By: #### C MP, CBC, HS TROP, CK #### [facility] [address] Creatinine [Mass/volume] in Serum or PlasmaOrdered By: Bernardino Gifford on 12-27-2023 Creatinine [Mass/Vol] 0.94 mg/dL Normal 0.60-1.20 [facility] Comment on above: Performed By: #### C MP, CBC, HS TROP, CK #### [facility] [address] D-Dimer High Sensitivityon 0 12-27-2023 D-Dimer High Sensitivity 480 ng/mL High 0-243 [facility] Comment on above: Result Comment: The reference range for D-dimer is <243 ng/mL D-dimer units. D-dimer results must be used in conjunction with a clinical pretest probability (PTP) assessment model for deep vein thrombosis (DVT) and pulmonary embolism (PE). Results <230 ng/mL d-dimer units can be used as a negative predictor in patients with low or moderate probability for DVT/PE. Results above the exclusion threshold of 230 ng/ml D-dimer units for DVT/PE may indicate the need for further diagnostic testing. D-Dimer can be increased in hospitalized patients due to co-morbid conditions. A hematocrit value greater than 55% may lead to inaccurate results in coagulation testing. Patients having hematocrit values >55% require a special collection tube for coagulation studies. Please contact the laboratory at [phone] for redraw instructions. PERFORMED BY: [place] [address] PATHOLOGIST CREAMERY WORKER JENNIFER ALANIZ M.D. Performed By: #### C MP, CBC, HS TROP, CK #### [address] Dipstick and Microscopicon 0 12-27-2023 Bacteria,Urine 1+ High None Seen [facility] Comment on above: Order Comment: Name Collection Type:: Clean-Voided Midstream Result Comment: Micr oscopic results may be affected due to low specimen volume. PERFORMED BY: [place] [address] PATHOLOGIST CREAMERY WORKER JENNIFER ALANIZ M.D. Performed By: #### A DDONUAPLUS, CUU #### [place] [address] [place] Bilirubin,Urine Negative Normal Negative [facility] Comment on above: Order Comment: Name Collection Type:: Clean-Voided Midstream Performed By: #### A DDONUAPLUS, CUU #### [address] Glucose Ql (U) Normal Normal Normal [facility] Comment on above: Order Comment: Name Collection Type:: Clean-Voided Midstream Performed By: #### A DDONUAPLUS, CUU #### [place] [address] [place] Nitrite,Urine Negative Normal Negative [facility] Comment on above: Order Comment: Name Collection Type:: Clean-Voided Midstream Performed By: #### A DDONUAPLUS, CUU #### [place] [address] [place] Occult Blood,Urine Negative Normal Negative [facility] Comment on above: Order Comment: Name Collection Type:: Clean-Voided Midstream Result Comment: PERF ORMED BY: [place] [address] PATHOLOGIST CREAMERY WORKER JENNIFER ALANIZ M.D. Performed By: #### A DDONUAPLUS, CUU #### [place] [address] [place] Protein,Urine Negative Normal Negative [facility] Comment on above: Order Comment: Name Collection Type:: Clean-Voided Midstream Performed By: #### A DDONUAPLUS, CUU #### [address] RBC,Urine None Seen Normal 0-4 [facility] Comment on above: Order Comment: Name Collection Type:: Clean-Voided Midstream Result Comment: Micr oscopic results may be affected due to low specimen volume. Performed By: #### A DDONUAPLUS, CUU #### [address] Specificy [place],Urine 1.043 High 1.00 1-1.03 0 [facility] Comment on above: Order Comment: Name Collection Type:: Clean-Voided Midstream Performed By: #### A DDONUAPLUS, CUU #### [place] [address] [place] Squamous Epithelial Cell,Urine 5-9 High 0-2 [facility] Comment on above: Order Comment: Name Collection Type:: Clean-Voided Midstream Result Comment: Micr oscopic results may be affected due to low specimen volume. Performed By: #### A DDONUAPLUS, CUU #### [address] Urobilinogen,Urine Normal Normal Normal [facility] Comment on above: Order Comment: Name Collection Type:: Clean-Voided Midstream Performed By: #### A DDONUAPLUS, CUU #### [place] [address] [place] WBC,Urine 5-9 High 0-4 [facility] Comment on above: Order Comment: Name Collection Type:: Clean-Voided Midstream Result Comment: Micr oscopic results may be affected due to low specimen volume. Performed By: #### A DDONUAPLUS, CUU #### [address] ECG 12 lead ECGon 12-27-2023 ECG 12 lead ECG [facility] [place] [address] [place] [address] Electrocardiograph Report Signed Patient: Bhupendra Rubi MR#: [id number] 306 : 1950 Acct:[id number] Age/Sex: 73 / F ADM Date: 12/27/23 Loc: ER Room: Type: [facility] ER Attending Dr: Ordering Provider: Bernardino Gifford MD Date of Service: 12/27/23 ECG/ECG 12 lead ECG: Recheck/Abnormal Lab/Rx Copies to: Test Reason : Blood Pressure : 070/050 mmHG Vent. Rate : 079 BPM Atrial Rate : 079 BPM P-R Int : 170 ms QRS Dur : 076 ms QT Int : 366 ms P-R-T Axes : 076 143 072 degrees QTc Int : 419 ms Normal sinus rhythm Possible Right ventricular hypertrophy Abnormal ECG No previous ECGs available Confirmed by BERNARDINO GIFFORD MD ([id number]) on 12/27/2023 7:14:47 PM Referred By: Electronically Signed By:BERNARDINO GIFFORD MD Transcribed By: [facility] Signed By Bernardino Gifford MD 12/11 Normal [facility] Epithelial cells.squamous [# /area] in Urine sediment by Microscopy high power fieldOrdered By: Bernardino Gifford on 12-27-2023 Epithelial cells.squamous LM.HPF (Urine sed) [#/Area] 5-9 [HPF] 0-2 [facility] Comment on above: Microscopic results may be affected due to low specimen volume. Erythrocyte distribution wid th [Ratio] by Automated countOrdered By: Bernardino Gifford on 12-27-2023 Erythrocyte distribution width (RBC) [Ratio] 15.6 % High 11.9-15.3 [facility] Comment on above: Performed By: #### C MP, CBC, HS TROP, CK #### [facility] [address] [place] [address] Erythrocytes [#/area] in Uri ne sediment by Microscopy high power fieldOrdered By: Bernardino Gifford on 12-27-2023 RBC LM.HPF (Urine sed) [#/Area] None seen [HPF] 0-4 [facility] Comment on above: Microscopic results may be affected due to low specimen volume. Erythrocytes [#/volume] in B lood by Automated countOrdered By: Bernardino Gifford on 12-27-2023 RBC (Bld) [#/Vol] 5.03 10*6/uL High 3.60-5.00 [facility] Comment on above: Performed By: #### C MP, CBC, HS TROP, CK #### [facility] [address] [place] [address] Fecal occult blood detection by immunochemistryOrdered By: Bernardino Gifford on 12-27-2023 Hemoglobin.gastrointesti nal Ql (Stl) [facility] Fibrin D-dimer [Presence] in Platelet poor plasma by Latex agglutinationOrdered By: Bernardino Gifford on 12-27-2023 Fibrin D-dimer LA Ql (PPP) 480 ng/mL 0-243 [facility] Comment on above: The reference range for D-dimer is <243 ng/mL D-dimer units.D-dimer results must be used in conjunction with a clinicalpretest probability (PTP) assessment model for deep veinthrombosis (DVT) and pulmonary embolism (PE). Results <230ng/mL d-dimer units can be used as a negative predictor inpatients with low or moderate probability for DVT/PE.Results above the exclusion threshold of 230 ng/ml D-dimerunits for DVT/PE may indicate the need for furtherdiagnostic testing.D-Dimer can be increased in hospitalized patients due toco-morbid conditions.A hematocrit value greater than 55% may lead to inaccurate results in coagulation testing. Patients having hematocrit values >55% require a special collection tube for coagulation studies. Please contact the laboratory at [phone] for redraw instructions. Glucose [Mass/volume] in Ser um or PlasmaOrdered By: Bernardino Gifford on 12-27-2023 Glucose [Mass/Vol] 120 mg/dL High 70-100 [facility] Comment on above: ADA recommended refe rence rangeRandom Glucose Reference Range is dependent on time and content of last meal. Glucose of more than 200 mg/dL in a nonstressed, ambulatory subject supports the diagnosis of Diabetes Mellitus. Result Comment: [place] Glucose Reference Range is dependent on time and content of last meal. Glucose of more than 200 mg/dL in a nonstressed, ambulatory subject supports the diagnosis of Diabetes Mellitus. ADA recommended reference range Performed By: #### C MP, CBC, HS TROP, CK #### [address] Glucose [Mass/volume] in Uri ne by Test stripOrdered By: Bernardino Gifford on 12-27-2023 Glucose Test strip (U) [Mass/Vol] Normal mg/dL Normal [facility] Hematocrit [Volume Fraction] of Blood by Automated countOrdered By: Bernardino Gifford on 12-27-2023 Hematocrit (Bld) [Volume fraction] 44.0 % Normal 34.0-46.4 [facility] Comment on above: Performed By: #### C MP, CBC, HS TROP, CK #### [facility] [address] Hemoglobin Test strip Ql (U) Ordered By: Bernardino Gifford on 12-27-2023 Hemoglobin Ql (U) Negative Negative [facility] Hemoglobin [Mass/volume] in BloodOrdered By: Bernardino Gifford on 12-27-2023 Hemoglobin (Bld) [Mass/Vol] 14.5 g/dL Normal 11.8-15.4 [facility] Comment on above: Performed By: #### C MP, CBC, HS TROP, CK #### [address] INR in Platelet poor plasma by Coagulation assayOrdered By: Bernardino Gifford on 12-27-2023 INR Coag (PPP) [Relative time] 1.0 {INR} Normal [facility] Comment on above: INR Therapeutic Rang e A) Pre- and Peroperative OAT started two weeks before surgery. NOT HIP SURGERY: 1.5 - 2.5 HIP SURGERY: 2 - 3B) Primary and secondary prevention of venous THROMBOSIS: 2 - 3C) Active venous thrombosis, pulmonary embolismand prevention of recurrent venous thrombosis: 2 - 3D) Prevention of arterial thromboembolismincluding patients with mechanical heart valves: 3 - 4.5 Result Comment: INR Therapeutic Range A) Pre- and Peroperative OAT started two weeks before surgery. NOT HIP SURGERY: 1.5 - 2.5 HIP SURGERY: 2 - 3 B) Primary and secondary prevention of venous THROMBOSIS: 2 - 3 C) Active venous thrombosis, pulmonary embolism and prevention of recurrent venous thrombosis: 2 - 3 D) Prevention of arterial thromboembolism including patients with mechanical heart valves: 3 - 4.5 Performed By: #### C MP, CBC, HS TROP, CK #### [address] Ketones [Presence] in Urine by Test stripOrdered By: Bernardino Gifford on 12-27-2023 Ketones Ql (U) Negative Normal Negative [facility] Comment on above: Order Comment: Name Collection Type:: Clean-Voided Midstream Performed By: #### A DDONUAPLUS, CUU #### [place] [address] [place] Lactate [Moles/volume] in Se rum or PlasmaOrdered By: Bernardino Gifford on 12-27-2023 Lactate [Moles/Vol] 1.6 mmol/L Normal 0.5-2.2 [facility] Comment on above: Result Comment: PERF ORMED BY: [place] [address] PATHOLOGIST CREAMERY WORKER JENNIFER ALANIZ M.D. Performed By: #### C MP, CBC, HS TROP, CK #### [address] Leukocyte esterase [Presence ] in Urine by Test stripOrdered By: Bernardino Gifford on 12-27-2023 Leukocyte esterase Test strip Ql (U) 4+ High Negative [facility] Comment on above: Order Comment: Name Collection Type:: Clean-Voided Midstream Performed By: #### A DDONUAPLUS, CUU #### [address] Leukocytes [#/area] in Urine sediment by Microscopy high power fieldOrdered By: Bernardino Gifford on 12-27-2023 WBC LM.HPF (Urine sed) [#/Area] 5-9 [HPF] 0-4 [facility] Comment on above: Microscopic results may be affected due to low specimen volume. Leukocytes [#/volume] correc pilar for nucleated erythrocytes in Blood by Automated counOrdered By: Bernardino Gifford on 12-27-2023 WBC corrected for nucl RBC Auto (Bld) [#/Vol] 13.4 10*3/uL 3.8-11.6 [facility] Leukocytes [#/volume] in Blo od by Automated countOrdered By: Bernardino Gifford on 12-27-2023 WBC (Bld) [#/Vol] 13.4 10*3/uL High 3.8-11.6 [facility] Comment on above: Performed By: #### C MP, CBC, HS TROP, CK #### [address] Lymphocytes [#/volume] in Bl ood by Automated countOrdered By: Bernardino Gifford on 12-27-2023 Lymphocytes (Bld) [#/Vol] 3.7 10*3/uL Normal 1.00-4.8 [facility] Comment on above: Performed By: #### C MP, CBC, HS TROP, CK #### [facility] [address] Lymphocytes/100 leukocytes i n Blood by Automated countOrdered By: Bernardino Gifford on 12-27-2023 Lymphocytes/100 WBC (Bld) 27.4 % Normal . [facility] Comment on above: Performed By: #### C MP, CBC, HS TROP, CK #### [facility] [address] MCH [Entitic mass] by Automa pilar countOrdered By: Bernardino Gifford on 12-27-2023 MCH (RBC) [Entitic mass] 28.9 pg Normal 24.7-34.3 [facility] Comment on above: Performed By: #### C MP, CBC, HS TROP, CK #### [facility] [address] MCHC Auto (RBC) [Mass/Vol]Or dered By: Bernardino Gifford on 12-27-2023 MCHC (RBC) [Mass/Vol] 33.0 g/dL 32.0-35.0 [facility] MCV [Entitic volume] by Auto mated countOrdered By: Bernardino Gifford on 12-27-2023 MCV (RBC) [Entitic vol] 87.6 fL Normal 80-100 [facility] Comment on above: Performed By: #### C MP, CBC, HS TROP, CK #### [facility] [address] [place] [address] Monocyte distribution width [Entitic volume] in Blood by AutomatedOrdered By: Bernardino Gifford on 12-27-2023 Monocyte distribution width Auto (Bld) [Entitic vol] 19.53 % 0.00-20.00 [facility] Neutrophils [#/volume] in Bl ood by Automated countOrdered By: Bernardino Gifford on 12-27-2023 Neutrophils (Bld) [#/Vol] 8.3 10*3/uL High 1.8-7.7 [facility] Comment on above: Performed By: #### C MP, CBC, HS TROP, CK #### [address] Nitrite Test strip Ql (U)Ord ered By: Bernardino Gifford on 12-27-2023 Nitrite Ql (U) Negative Negative [facility] [facility] No Panel InformationOrdered By: Bernardino Gifford on 12-27-2023 Arterial Blood Base Excess -2.4 mmol/L -3.0-3.0 [facility] Arterial Blood Oxygen Content 7.5 mmol/L 6.6-9.7 [facility] Arterial Blood Oxygen Saturation 95.5 % 95.0-100.0 [facility] Arterial Blood Partial Pressure CO2 46.7 mm[Hg] 35.0-45.0 [facility] Arterial Blood Partial Pressure O2 84.0 mm[Hg] 80.0-100.0 [facility] Arterial Blood pH 7.33 7.35-7.45 [facility] Blood Gas Critical Value See comment [facility] Comment on above: Critical Value cahves d on: 12/27/2023 at 11:36 Blood Gas Liter Flow 3 L/min [facility] Blood Gas Sample Site Left radial [facility] FiO2 32 % [facility] Oxygen Delivery Device Nasal cannula [facility] Estimated GFR (CKD-EPI) > 60.0 mL/Min [facility] Creatinine Clearance (Chem 50.59 [facility] Nucleated erythrocytes [Pres ence] in Blood by Automated countOrdered By: Bernardino Gifford on 12-27-2023 Nucleated RBC Auto Ql (Bld) 0.1 /100{WBC} 0-0.5 [facility] Partial Thromboplastin Timeo n 12-27-2023 aPTT Coag (Bld) [Time] 24.6 s Low 25.1-36.5 [facility] Comment on above: Result Comment: A he matocrit value greater than 55% may lead to inaccurate results in coagulation testing. Patients having hematocrit values >55% require a special collection tube for coagulation studies. Please contact the laboratory at [phone] for redraw instructions. Performed By: #### C MP, CBC, HS TROP, CK #### [facility] [address] Platelet mean volume [Entiti c volume] in Blood by Automated countOrdered By: Bernardino Gifford on 12-27-2023 Platelet mean volume (Bld) [Entitic vol] 8.3 fL Normal 6.3-10.7 [facility] Comment on above: Performed By: #### C MP, CBC, HS TROP, CK #### [facility] [address] Platelets [#/volume] in Bloo d by Automated countOrdered By: Bernardino Gifford on 12-27-2023 Platelets (Bld) [#/Vol] 399 10*3/uL Normal 150-450 [facility] Comment on above: Performed By: #### C MP, CBC, HS TROP, CK #### [address] Potassium [Moles/volume] in Serum or PlasmaOrdered By: Bernardino Gifford on 12-27-2023 Potassium [Moles/Vol] 3.7 mmol/L Normal 3.5-5.1 [facility] Comment on above: Performed By: #### C MP, CBC, HS TROP, CK #### [address] Protein Test strip (U) [Mass /Vol]Ordered By: Bernardino Gifford on 12-27-2023 Protein (U) [Mass/Vol] Negative Negative [facility] Protein [Mass/volume] in Ser um or PlasmaOrdered By: Bernardino Gifford on 12-27-2023 Protein [Mass/Vol] 6.8 g/dL Normal 6.4-8.9 [facility] Comment on above: Performed By: #### C MP, CBC, HS TROP, CK #### [address] Prothrombin time (PT)Ordered By: Bernardino Gifford on 12-27-2023 PT Coag (PPP) [Time] 11.5 s Normal 9.0-12.9 [facility] Comment on above: A hematocrit value g reater than 55% may lead to inaccurate results in coagulation testing. Patients having hematocrit values >55% require a special collection tube for coagulation studies. Please contact the laboratory at [phone] for redraw instructions. Result Comment: A he matocrit value greater than 55% may lead to inaccurate results in coagulation testing. Patients having hematocrit values >55% require a special collection tube for coagulation studies. Please contact the laboratory at [phone] for redraw instructions. Performed By: #### C MP, CBC, HS TROP, CK #### [address] Serum globulin measurement b y calculation (mass/volume)Ordered By: Bernardino Gifford on 12-27-2023 Globulin (S) [Mass/Vol] 2.8 g/dL Normal [facility] Comment on above: Performed By: #### C MP, CBC, HS TROP, CK #### [address] Serum or plasma albumin/glob ulin mass ratioOrdered By: Bernardino Gifford on 12-27-2023 Albumin/Globulin [Mass ratio] 1.4 {ratio} Normal [facility] Comment on above: Performed By: #### C MP, CBC, HS TROP, CK #### [address] Serum or plasma anion gap de terminationOrdered By: Bernardino Gifford on 12-27-2023 Anion gap [Moles/Vol] 12.8 mmol/L Normal 6.0-15.0 [facility] Comment on above: Performed By: #### C MP, CBC, HS TROP, CK #### [address] Sodium [Moles/volume] in Ser um or PlasmaOrdered By: Bernardino Gifford on 12-27-2023 Sodium [Moles/Vol] 140 mmol/L Normal 136-145 [facility] Comment on above: Performed By: #### C MP, CBC, HS TROP, CK #### [address] Specific gravity Test strip (U) [Rel density]Ordered By: Bernardino Gifford on 12-27-2023 Specific gravity (U) [Rel density] 1.043 1.001-1.03 0 [facility] Stool Occult Blood (Guaiac)o n 12-27-2023 Stool Occult Blood (Guaiac) Occult Blood Negative for Occult Blood by Guaiac Methodology ---- Reference range = Negative PERFORMED BY: [place] [address] PATHOLOGIST CREAMERY WORKER JENNIFER ALANIZ M.D. Normal [facility] Comment on above: Performed By: #### O B(GUAIAC) #### [address] Troponin I High Sensitivityo n 12-27-2023 Troponin I High Sensitivity < 2.3 Normal 0.0-15.0 [facility] Comment on above: Result Comment: PERF ORMED BY: [place] [address] PATHOLOGIST CREAMERY WORKER JENNIFER ALANIZ M.D. Performed By: #### C MP, CBC, HS TROP, CK #### [place] [id number] Troponin I.cardiac [Mass/vol ume] in Serum or Plasma by Detection limit <= 0.01 ng/Ordered By: Bernardino Gifford on 12-27-2023 Troponin I.cardiac DL <= 0.01 ng/mL [Mass/Vol] < 2.3 pg/mL 0.0-15.0 [facility] Type and Screenon 12-27-2023 ABO and Rh group Nom (Bld) Blood group A Rh(D) positive Normal [facility] Urea nitrogen [Mass/volume] in Serum or PlasmaOrdered By: Bernardino Gifford on 12-27-2023 Urea nitrogen [Mass/Vol] 13 mg/dL Normal 7-25 [facility] Comment on above: Performed By: #### C MP, CBC, HS TROP, CK #### [facility] [address] [place] [address] Urine Cultureon 12-27-2023 Bacteria identified Cx Nom (U) 50,000 colonies/ml mixed bacterial skin contaminants 2 Days PERFORMED BY: [place] [address] PATHOLOGIST CREAMERY WORKER JENNIFER ALANIZ M.D. Normal [facility] Comment on above: Performed By: #### A DDONUAPLUS, CUU #### [address] Urine appearanceOrdered By: Bernardino Gifford on 12-27-2023 Appearance (U) Cloudy Critically abnormal Clear [facility] Comment on above: Order Comment: Name Collection Type:: Clean-Voided Midstream Performed By: #### A DDONUAPLUS, CUU #### [address] Urine culture routineOrdered By: Bernardino Gifford on 12-27-2023 Bacteria identified Cx Nom (U) 2 Days [facility] Urobilinogen Test strip (U) [Mass/Vol]Ordered By: Bernardino Gifford on 12-27-2023 Urobilinogen (U) [Mass/Vol] Normal mg/dL Normal [facility] XR chest 1V portableon 12-26 XR chest 1V portable [facility] [place] [address] XRay Report Signed Patient: Bhupendra Rubi MR#: [id number] : 1950 Acct:[id number] Age/Sex: 73 / F ADM Date: 12/27/23 Loc: ER Room: Type: [facility] ER Attending Dr: Copies to: Bernardino Gifford MD Ordering Provider: Bernardino Gifford MD Date of Service: 12/27/23 XR/XR chest 1V portable: Recheck/Abnormal Lab/Rx Plain film chest Single view HISTORY: RIGHT hand weakness. Low blood pressure. COMPARISON: None FINDINGS: SUPPORT DEVICES: None POSTSURGICAL CHANGES: None HEART: Within normal limits PULMONARY MALCOLM: Within normal limits MEDIASTINUM: Unremarkable LUNGS AND PLEURA: Basilar atelectasis. No pleural effusion. No pneumothorax. Peripheral nodularity of the LEFT midlung. BONY STRUCTURES: Intact ADDITIONAL FINDINGS None XR/XR chest 1V portable IMPRESSION: Moderate LEFT basilar pleural-parenchymal change. Concerning peripheral nodularity of the LEFT midlung seen with CT of the chest. Impression dictated by: Adam Berger M.D.12/27/2023 12:16 PM Dictation Location: [place] [address] Transcribed By: [facility] 12/27/23 1216 Dictated By: Adam Berger DO 12/27/23 1204 Signed By: 12/27/23 1216 Normal [facility] pH of Urine by Test stripOrd ered By: Bernardino Gifford on 12-27-2023 pH (U) 6.0 [pH] Normal 5.0-9.0 [facility] Comment on above: Order Comment: Name Collection Type:: Clean-Voided Midstream Performed By: #### A ETTA HIDALGOU #### [facility] [address] Provider Letteron 06-23-2023 Provider Letter (Inserted Image. Es ble to display) June 23, 2023 BHUPENDRA RUBI [address] [place] [id number] : 1950 Dear Bhupendra, We are reaching out to inform you that Dr. Turner is now approved and credentialed with your insurance. Please call our office at your earliest convenience to schedule the EGD that was recommended at your last visit. Thank you for your prompt attention to this matter. Sincerely, [facility] [phone] Normal [facility] Reminderson 06-17-2023 Reminders - From: Nitza Gilmore To: [facility] - Reminders/Recalls; Sent: 02/16/2023 09:10:01 EDT Show up: 04/01/2023 09:09:00 EDT Subject: Ambulatory Reminder Reminder/Recall PT needs to be called and rescheduled with Dr. Turner when [employer] is a approved insurance. EGD and Colon LVM for pt to call back to schedule. Normal [facility] US carotid doppler BIon 03-13 US carotid doppler BI [facility] [place] [address] [place] [address] Ultrasound Report Signed Patient: Bhupendra Rubi MR#: [id number] : 1950 Acct:[id number] Age/Sex: 72 / U ADM Date: 03/25/23 Loc: [facility] Room: Type: [facility] CLI Attending Dr: Cherelle Bautista FIELD ENUMERATOR-C Ordering Provider: Cherelle Bautista APRN Date of Service: 03/25/23 US/US carotid doppler BI: I65.23 Copies to: Cherelle Bautista APRN CAROTID DUPLEX INDICATION: Left carotid surgery, surveillance study PROCEDURE: Color-flow duplex scanning is used to interrogate the extracranial carotid arterial system, as well as both vertebral arteries. Both carotid bifurcations show some smooth homogeneous plaque formation. The proximal right internal carotid artery shows a highest peak systolic velocity of 130 cm/s with an end-diastolic velocity of 37.3 cm/s . The mid internal carotid artery measures 125 cm/s peak systolic with an end diastolic velocity of 42.5 cm/s . The distal segment measures 116 cm/s peak systolic with an end diastolic velocity of 40.7 cm/s . The velocities of the right common carotid artery are 105 cm/s peak systolic and 23 cm/s end-diastolic and 81.4 cm/s peak systolic and 24.2 cm/s end diastolic distally. The peak systolic velocity ratio of the internal to the common carotid artery is 1.24 . The external carotid artery measures 174 cm/s peak systolic. The right vertebral artery is patent at 73.3 cm/s peak systolic with antegrade flow. The proximal left internal carotid artery shows a highest peak systolic velocity of 82.7 cm/s with an end-diastolic velocity of 23.4 cm/s . The mid internal carotid artery measures 124 cm/s peak systolic with an end diastolic velocity of 36.2 cm/s . The distal segment measures 105 cm/s peak systolic with an end diastolic velocity of 32.5 cm/s . The velocities of the left common carotid artery are 109 cm/s peak systolic and 25.2 cm/s end-diastolic and 96.1 cm/s peak systolic and 25.8 cm/s end diastolic distally. The peak systolic velocity ratio of the internal to the common carotid artery is 1.14 . The external carotid artery measures 91.4 cm/s peak systolic. The left vertebral artery is patent at 49.6 cm/s peak systolic with antegrade flow. US/US carotid doppler BI IMPRESSION: MILD PLAQUE FORMATION IS NOTED BILATERALLY, WITH LESS THAN 50% STENOSIS OF BOTH EXTRACRANIAL INTERNAL CAROTID ARTERY. BOTH VERTEBRAL ARTERIES ARE PATENT WITH ANTEGRADE FLOW. Impression dictated by: Nigel Valladares MD03/25/2023 1:50 PM [facility] Tech: Yakelin Gibson Transcribed By: JOSE MIGUEL 03/25/23 135 Dictated By: Nigel Valladares MD 03/25/23 135 Signed By: 03/25/23 1350 Normal [facility] Physician Referralon 023 Physician Referral [id number]:12 7 Normal [facility] CT Abdomen w/ Contraston CT Abdomen w/ Contrast Exam Date/Time: 01/07/2023 11:09 EDT Reason for Exam: upper abdominal pain;Other (please specify) Report IMPRESSION: PARARENAL/INFILTRATE ABDOMINAL AORTIC ANEURYSM MEASURING UP TO 3.4 X 3.4 CM. RECOMMENDATIONS BELOW. DIFFUSE AORTOILIAC ATHEROSCLEROTIC CHANGE. CT ABDOMEN WITH INTRAVENOUS CONTRAST MEDIUM. History: upper abdominal pain. Generalized abdominal pain for months. Constipation. Technical Factors: CT imaging of the abdomen were obtained and formatted as 5 mm contiguous axial images from the domes of the diaphragm to the pelvic brim. Sagittal and coronal reconstructions were also obtained. Oral contrast medium: Barium sulfate, 900 mL.. Intravenous contrast medium: Isovue-300, 100 mL. Comparison: None Findings: Lungs: Lung bases are clear. Liver: Normal in size, shape, and attenuation. Bile Ducts: Normal in caliber. Gallbladder: Surgically absent. Pancreas: Normal without masses, cysts, ductal dilatation or calcification. Spleen: Normal in size without masses or calcifications. No splenules. Kidneys: Normal in size and enhancement. No hydronephrosis or calculi. Right renal cortical cysts, largest measuring 4 mm lateral midpole. Simple cortical cysts left kidney, largest measuring 1.4 cm, anterior midpole.. Adrenals: Normal. Small bowel: Normal in caliber. Appendix: Not visualized. Colon: Normal in caliber. Report Peritoneum: No ascites, free air, or fluid collections. Vessels: Dilatation abdominal aorta ending at level of renal ostia with maximum AP and transverse dimension 3.4 x 3.4 cm. Diffuse aortoiliac atherosclerotic change. Portal vein, splenic vein, superior mesenteric vein are patent. Lymph nodes: Retroperitoneal: No enlarged retroperitoneal lymph nodes. Mesenteric: No enlarged mesenteric lymph nodes. Ureters: Normal in course and caliber. No calcifications. Abdominal Wall: 8 mm fat-containing periumbilical anterior abdominal wall defect. Bones: No bone lesions. No degenerative changes. No post operative changes. ...... SOCI[employer]Y OF VASCULAR [employer]GERY AAA FOLLOW-UP RECOMMENDATIONS (2009): 2.6 to 2.9 cm: Every 5 years* 3.0 to 3.4 cm: Every 3 years 3.5 to 4.4 cm: Every 12 months 4.5 to 5.4 cm: Every 6 months \X2265\5.5 cm: Referral to vascular surgeon *For aortas with maximum diameter of 2.6 to 2.9 cm meeting the criteria for AAA (\X2265\1.5 times proximal normal segment). Vascular consultation recommended for AAA measuring \X2265\[address] scans at this facility use dose modulation, iterative reconstruction, and/or weight based dosing when appropriate to reduce radiation dose to as low as reasonably achievable. Ordering Provider: , FINAL REPORT Dictated: 01/09/2023 10:42 am Keegan Nunez MD Signed (Electronic Signature): 01/09/2023 10:42 am Signed by: Keegan Nunez MD Transcribed by: WESTON Technologist: WALLY Technical Comments GFR (mL/min/1/73m2) >60 Contrast: Isovue 300 Contrast amount in ml's: 100 Oral contrast amount in ml's: 900 Normal [facility] Consent for Treatmenton 12-12 Consent for Treatment [id number]#[id number]:12 7 Normal [facility] CHEMISTRYOrdered By: SYSTEM SYSTEM on 01-01-2023 Ferritin [Mass/Vol] 20 ng/mL Normal 11 - 307 ng/mL [facility] Remisol Folate [Mass/Vol] 5.0 ng/mL Low >=6.7ng/mL [facility] Remisol Iron [Mass/Vol] 61 ug/dL Normal 35 - 153 mcg/dL [facility] Remisol Iron binding capacity [Mass/Vol] 333 ug/dL Normal 250 - 400 mcg/dL [facility] Remisol Iron saturation [Mass fraction] 18 % Low 20 - 50 % [facility] Remisol Transferrin [Mass/Vol] 238 mg/dL Normal 200 - 370 mg/dL [facility] Remisol Consent for Treatmenton 12-12 Consent for Treatment [id number]:12 7 Normal [facility] Ferritinon 01-01-2023 Ferritin [Mass/Vol] 20 ng/mL Normal 11-307 [facility] Comment on above: Result Comment: NORM ALS MEN <30 YRS 16-132 ng/mL MEN >30 YRS 8-338 ng/mL WOMEN (PREMEN) 6-104 ng/mL WOMEN (POSTMEN) 12-210 ng/mL Performed By: #### 2 [id number], [id number], [id number], [id number], [id number] ####[facility] [address] [place] [address] Folateon 01-01-2023 Folate [Mass/Vol] 5.0 ng/mL Low >=6.7 [facility] Comment on above: Performed By: #### 2 [id number], [id number], 5674110, 8250369, [id number] ####[facility] [address] [place] [address] Ironon 01-01-2023 Iron [Mass/Vol] 61 microgram/dL Normal 35-153 [facility] Comment on above: Performed By: #### 2 [id number], [id number], 6255041, 8155375, [id number] ####[facility] [address] [place] [address] Iron Saturationon 01-01-2023 Iron binding capacity [Mass/Vol] 333 microgram/dL Normal 250-400 [facility] Comment on above: Performed By: #### 2 087926, 1074343, [id number], 2487300, 6374702 ####[facility] [address] [place] [address] Iron saturation [Mass fraction] 18 % Low 20-50 [facility] Comment on above: Performed By: #### 2 038057, 1383851, 8956122, 2828327, 0722918 ####[facility] [address] [place] [address] Transferrinon 01-01-2023 Transferrin [Mass/Vol] 238 mg/dL Normal 200-370 [facility] Comment on above: Performed By: #### 2 895514, 8658663, 3738465, 8579951, 1908040 ####[facility] [address] [place] [address] Pre-Certification Formon Pre-Certification Form [id number]#[id number]:1 27 Normal [facility] Consent for Treatmenton 12-11 Consent for Treatment [id number]:12 7 Normal [facility] US Abdomen, Limitedon 2022 US Abdomen, Limited Exam Date/Time: 12/29/2022 10:46 EDT Reason for Exam: upper abdominal ultrasound for upper abdominal pain;Abdominal pain Report IMPRESSION: NEGATIVE SONOGRAM OF LIVER. SUBOPTIMAL IMAGES OF THE PANCREAS. CLINICAL HISTORY: Abdominal pain, upper abdominal ultrasound for upper abdominal pain COMPARISON: NONE. FINDINGS: Multiple sonographic images of the right upper abdomen were obtained. The liver measures 14.9 cm in length. Echogenicity throughout the liver is unremarkable. Patient is status post cholecystectomy. Common duct is not dilated. Pancreas is not seen because of the overlying bowel gas. There is no hydronephrosis of the right kidney. Ordering Provider: , FINAL REPORT Dictated: 12/29/2022 2:45 pm Ernesto Engel M.D. Signed (Electronic Signature): 12/29/2022 2:45 pm Signed by: Ernesto Engel M.D. Transcribed by: WESTON Technologist: ED Henao [facility] Ambulatory Visit Summaryon 0 12-24-2022 Ambulatory Visit Summary BHUPENDRA RUBI :1950 Visit Date:12/24/2022 Ambulatory Visit Instructions Your Diagnosis Upper abdominal pain Acid reflux History of colon polyps Your Care Team Attending Physician - Brigette Martini CNP Primary Care Physician - SHAIKH HORAN This Is Your Medications List esomeprazole (Nexium 40 mg Cap-EC) polyethylene glycol 3350 with electrolytes (NuLYTELY Fuentes oral powder for reconstitution) Contact prescribing physician if questions or concerns albuterol (Albuterol (Eqv-ProAir HFA) 90 mcg/inh inhalation aerosol) atorvastatin (atorvastatin 80 mg Tab) ciprofloxacin (Cipro 500 mg Tab) gabapentin (gabapentin 300 mg Cap) polyethylene glycol 3350 (MiraLax) trazodone (traZODONE 100 mg Tab) Procedures Performed Introduction of tension free vaginal tape (1989), Cholecystectomy, Hysterectomy, Rotator cuff. Discharge Vitals Temperature (Temporal Artery) 36.4 ?C Heart Rate (Peripheral) 86 Blood Pressure 146/86 Height 63 in Height 159 cm Weight 148.72 lb Weight 67.6 kg BMI 26.74 What to do next Scheduled Follow-Up Appointments Thursday 10:30 AM EDT Where: [facility] Thursday 8:15 AM EDT Where: [facility] You Need to Schedule the Following Appointments Follow Up with Brigette Martini CNP When: Within 1 month Where: You Need to Complete the Following CBC w/ Auto Diff, Blood, Routine collect, 12/24/22, Order for future visit, Lab Collect, Upper abdominal pain, Print Label By Order Location Comprehensive Metabolic Panel, Blood, Routine collect, 12/24/22, Order for future visit, Lab Collect, Upper abdominal pain, Print Label By Order Location US Abdomen, Limited, 12/29/22, Routine, Order for future visit, Transport Mode: Ambulatory, Reason: Abdominal pain, Reason: upper abdominal ultrasound for upper abdominal pain, No, Upper abdominal pain, pp_set_radiology_subspeci alty, Not Required, [facility] Medications What How Much When Why Instructions New esomeprazole (Nexium 40 mg Cap-EC) 1 Capsules By Mouth Every day Acid reflux Duration: 90 Days Pickup at [facility] New polyethylene glycol 3350 with electrolytes (NuLYTELY Fuentes oral powder for reconstitution) See instructions Prior to colonoscopy. Pickup at [facility] Unchanged albuterol (Albuterol (Eqv-ProAir HFA) 90 mcg/ inh inhalation aerosol) 8 gm, INHALE 2 PUFFS BY MOUTH EVERY 4 HOURS NEEDED for SHORTNESS OF BREATH Contact prescribing physician if questions or concerns Unchanged atorvastatin (atorvastatin 80 mg Tab) By Mouth Every day Contact prescribing physician if questions or concerns Unchanged ciprofloxacin (Cipro 500 mg Tab) 1 Tablets By Mouth Every day Take 1 tablet the day before the procedure and 1 tablet after the procedure Contact prescribing physician if questions or concerns Unchanged gabapentin (gabapentin 300 mg Cap) By Mouth 3 times a day Contact prescribing physician if questions or concerns Unchanged polyethylene glycol 3350 (MiraLax) Contact prescribing physician if questions or concerns Unchanged trazodone (traZODONE 100 mg Tab) By Mouth Contact prescribing physician if questions or concerns Pharmacy Information [facility]: [address] [place], [place] [id number] [phone] Allergies No Known Allergies No Known Medication Allergies Problems Ongoing - Any problem that you are currently receiving treatment for. Acid reflux Bilateral flank pain Dysuria Heart disease History of colon polyps History of prolapse of bladder Hyperlipidemia Hypertension Infrequent urination Mixed incontinence Personal history of transient ischemic attack Upper abdominal pain Education Materials Abdominal Pain, Adult Pain in the abdomen (abdominal pain) can be caused by many things. Often, abdominal pain is not serious and it gets better with no treatment or by being treated at home. However, sometimes abdominal pain is serious. Your health care provider will ask questions about your medical history and do a physical exam to try to determine the cause of your abdominal pain. Follow these instructions at home: Medicines ? Take pwmv-yrl-ytlwiii and prescription medicines only as told by your health care provider. ? Do not take a laxative unless told by your health care provider. General instructions ? Watch your condition for any changes. ? Drink enough fluid to keep your urine pale yellow. ? Keep all follow-up visits as told by your health care provider. This is important. Contact a health care provider if: ? Your abdominal pain changes or gets worse. ? You are not hungry or you lose weight without trying. ? You are constipated or have diarrhea for more than 2?3 days. ? You have pain when you urinate or have a bowel movement. ? Your abdominal pain wakes you up at night. ? Your pain (more content not included)... Normal [facility] Auto Diffon 12-24-2022 Basophils/100 WBC (Bld) 1.4 % Normal 0.0-2.[address] [facility] Comment on above: Order Comment: Order Added by Discern Expert. Performed By: #### 2 527692, [id number], 3336220, 7528683 ####[facility] [address] [place] [address] Basophils/Leukocytes Auto (Bld) [Pure # fraction] 0.2 E9/L Normal 0.0-0.2 [facility] Comment on above: Order Comment: Order Added by Discern Expert. Performed By: #### 2 453155, [id number], 3938046, 4552441 ####[facility] [address] [place] [address] Eosinophils/100 WBC (Bld) 0.7 % Normal 0.0-8.0 [facility] Comment on above: Order Comment: Order Added by Abhishek Expert. Performed By: #### 2 986521, 81797516, 4529240, 4997867 ####[facility] [address] [place] [address] Eosinophils/Leukocytes Auto (Bld) [Pure # fraction] 0.1 E9/L Normal 0.0-0.5 [facility] Comment on above: Order Comment: Order Added by Discern Expert. Performed By: #### 2 092337, 87687269, 2149675, 5657374 ####[facility] [address] [place] [address] Lymphocytes/100 WBC (Bld) 19.3 % Normal 14.0-50.0 [facility] Comment on above: Order Comment: Order Added by Discern Expert. Performed By: #### 2 695219, 87042951, 4919528, 1878040 ####[address] [place] [address] Lymphocytes/Leukocytes Auto (Bld) [Pure # fraction] 2.6 E9/L Normal 1.0-4.0 [facility] Comment on above: Order Comment: Order Added by Discern Expert. Performed By: #### 2 836580, 35933921, 5276753, 0296051 ####[address] [address] Monocytes/100 WBC (Bld) 7.8 % Normal 4.0-14.0 [facility] Comment on above: Order Comment: Order Added by Abhishek Expert. Performed By: #### 2 778128, 95443892, 3198828, 7867943 ####[address] [address] Monocytes/Leukocytes Auto (Bld) [Pure # fraction] 1.1 E9/L High 0.2-1.0 [facility] Comment on above: Order Comment: Order Added by Abhishek Expert. Performed By: #### 2 023880, 28094394, 3009167, 1767466 ####[address] [address] Neutrophils/100 WBC (Bld) 70.8 % Normal 36.0-75.0 [facility] Comment on above: Order Comment: Order Added by Abhishek Expert. Performed By: #### 2 407101, 50162955, 2693554, 8122867 ####[address] [place] [address] Neutrophils/Leukocytes Auto (Bld) [Pure # fraction] 9.6 E9/L High 2.0-7.5 [facility] Comment on above: Order Comment: Order Added by Abhishek Expert. Performed By: #### 2 142068, 46054365, 8053289, 8076978 ####[address] [address] CBC w/ Auto Diffon 3 Erythrocyte distribution width (RBC) [Ratio] 15.0 % High 10.9-14.2 [facility] Comment on above: Performed By: #### 2 087602, 89834181, 8633877, 1279303 ####[facility] [address] [place] [address] Hematocrit (Bld) [Volume fraction] 45.9 % Normal 34.0-46.0 [facility] Comment on above: Performed By: #### 2 740607, 11589839, 4042232, 4372778 ####[id number] Hemoglobin (Bld) [Mass/Vol] 14.9 g/dL Normal 12.0-16.0 [facility] Comment on above: Performed By: #### 2 178840, 11022145, 7335969, 0413847 ####[place] MCH (RBC) [Entitic mass] 29.2 pg Normal 27.0-34.0 [facility] Comment on above: Performed By: #### 2 612123, 44453544, 7985643, 0302901 ####[facility] [address] [place] [address] MCHC (RBC) [Mass/Vol] 32.6 g/dL Normal 31.4-36.0 [facility] Comment on above: Performed By: #### 2 880233, 13597655, 1068994, 5301479 ####[facility] [address] [place] [address] MCV (RBC) [Entitic vol] 89.8 fL Normal 80.0-100.[address] [facility] Comment on above: Performed By: #### 2 750420, 39285710, 6230977, 8407791 ####[facility] [address] [place] [address] Platelet mean volume (Bld) [Entitic vol] 8.4 fL Normal 6.4-10.8 [facility] Comment on above: Performed By: #### 2 509420, 74757607, 4366867, 8046125 ####[facility] [address] [place] [address] Platelets (Bld) [#/Vol] 408.0 E9/L Normal 150. 0-500. 0 [facility] Comment on above: Performed By: #### 2 288402, 73456553, 0951900, 0693307 ####[facility] [address] [place] [address] RBC (Bld) [#/Vol] 5.1 E12/L Normal 4.3-5.9 [facility] Comment on above: Performed By: #### 2 206496, 11745453, 3580149, 8247773 ####[facility] [address] [place] [address] WBC corrected for nucl RBC Auto (Bld) [#/Vol] 13.6 E9/L High 4.0-11.0 [facility] Comment on above: Performed By: #### 2 896501, 77010323, 8527769, 3499652 ####[facility] [address] [place] [address] CHEMISTRYOrdered By: SYSTEM SYSTEM on 12-24-2022 Albumin [Mass/Vol] 4.0 g/dL Normal 3.3 - 5.0 gm/dL [facility] Albumin/Globulin [Mass ratio] 1.1 {ratio} Normal 1.1 - 2.2 [facility] ALP [Catalytic activity/Vol] 106 [iU]/d High 21 - 98 Int._Unit/ L [facility] ALT No additional P-5'-P [Catalytic activity/Vol] 16 [iU]/d Normal 6 - 46 Int._Unit/ L [facility] Anion gap [Moles/Vol] 10 mmol/L Normal 6 - 16 mEq/L [facility] AST [Catalytic activity/Vol] 15 [iU]/d Normal 5 - 43 Int._Unit/ L [facility] Bilirubin [Mass/Vol] 0.5 mg/dL Normal 0.0 - 1 .1 mg/dL [facility] Calcium [Mass/Vol] 9.7 mg/dL Normal 8.9 - 11. 1 mg/dL [facility] Chloride [Moles/Vol] 105 mmol/L Normal 101 - 1 11 mmol/L [facility] CO2 [Moles/Vol] 31 mmol/L Normal 21 - 31 mmol/L [facility] Creatinine [Mass/Vol] 1.0 mg/dL Normal 0.5 - 1.3 mg/dL [facility] GFR/1.73 sq M.predicted among non-blacks MDRD (S/P/Bld) [Vol rate/Area] 61 mL/min/1.73 m2 Normal >=59mL/min /1.73 m2 [facility] Chem S Globulin (S) [Mass/Vol] 3.5 g/dL Normal 1.4 - 4.0 gm/dL [facility] Glucose [Mass/Vol] 100 mg/dL Normal 55 - 199 mg/dL [facility] Potassium [Moles/Vol] 4.3 mmol/L Normal 3.5 - 5.3 mmol/L [facility] Protein [Mass/Vol] 7.5 g/dL Normal 6.0 - 7.8 gm/dL [facility] Sodium [Moles/Vol] 142 mmol/L Normal 135 - 145 mmol/L [facility] Urea nitrogen [Mass/Vol] 12 mg/dL Normal 5 - 21 mg/dL [facility] Urea nitrogen/Creatinine [Mass ratio] 12 mg/mg Normal 10 - 20 [facility] CMPon 12-24-2022 Albumin [Mass/Vol] 4.0 g/dL Normal 3.3-5.0 [facility] Comment on above: Performed By: #### 2 802117, 53067693, 2152378, 5833385 ####[facility] [address] [place] [address] Albumin/Globulin (S) [Mass conc ratio] 1.1 Normal 1.1-2.2 [facility] Comment on above: Performed By: #### 2 037442, 46677521, 9736427, 5297137 ####[facility] [address] [place] [address] ALP [Catalytic activity/Vol] 106 Int._Unit/L High 21-98 [facility] Comment on above: Performed By: #### 2 742501, 65644973, 8749536, 7449245 ####[facility] [address] [place] [address] ALT No additional P-5'-P [Catalytic activity/Vol] 16 Int._Unit/L Normal 6-46 [facility] Comment on above: Performed By: #### 2 638586, 09907995, 1806544, 4405519 ####[facility] [address] [place] [address] Anion gap [Moles/Vol] 10 mmol/L Normal 6-16 [facility] Comment on above: Performed By: #### 2 750901, 10737030, 7328321, 3384593 ####[address] [address] AST [Catalytic activity/Vol] 15 Int._Unit/L Normal 5-43 [facility] Comment on above: Performed By: #### 2 134066, 24360791, 8735074, 8477538 ####[facility] [address] [place] [address] Bilirubin [Mass/Vol] 0.5 mg/dL Normal 0.0-1.1 [facility] Comment on above: Performed By: #### 2 457520, 63774858, 4147375, 5101812 ####[facility] [address] [place] [address] Calcium [Mass/Vol] 9.7 mg/dL Normal 8.9-11.1 [facility] Comment on above: Performed By: #### 2 849572, 83642100, 1840637, 8020563 ####[facility] [address] [place] [address] Chloride [Moles/Vol] 105 mmol/L Normal 101-111 [facility] Comment on above: Performed By: #### 2 185880, 25907104, 6933833, 2244824 ####[facility] [address] [place] [address] CO2 [Moles/Vol] 31 mmol/L Normal 21-31 [facility] Comment on above: Performed By: #### 2 102633, 31724649, 1133391, 0883686 ####[facility] [address] [place] [address] Creatinine [Mass/Vol] 1.0 mg/dL Normal 0.5-1.3 [facility] Comment on above: Performed By: #### 2 547576, 28214195, 3408656, 6092448 ####[facility] [address] [place] [address] Globulin (S) [Mass/Vol] 3.5 g/dL Normal 1.4-4.0 [facility] Comment on above: Performed By: #### 2 840948, 35971932, 2996325, 2449362 ####[facility] [address] [place] [address] Glucose [Mass/Vol] 100 mg/dL Normal 55-199 [facility] Comment on above: Result Comment: If t his glucose result represents a fasting glucose, interpretation should refer to the following reference range: 55-99 mg/dL Performed By: #### 2 897340, 95823007, 3289721, 3372858 ####[facility] [address] [place] [address] Potassium [Moles/Vol] 4.3 mmol/L Normal 3.5-5.3 [facility] Comment on above: Performed By: #### 2 889559, 06249144, 8723062, 9696619 ####[facility] [address] [place] [address] Protein [Mass/Vol] 7.5 g/dL Normal 6.0-7.8 [facility] Comment on above: Performed By: #### 2 128411, 06556222, 0001662, 9872336 ####[facility] [address] [place] [address] Sodium [Moles/Vol] 142 mmol/L Normal 135-145 [facility] Comment on above: Performed By: #### 2 595249, 56113028, 5062411, 7554902 ####[facility] [address] [place] [address] Urea nitrogen [Mass/Vol] 12 mg/dL Normal 5-21 [facility] Comment on above: Performed By: #### 2 338340, 30055659, 2208662, 5291828 ####[facility] [address] [place] [address] Urea nitrogen/Creatinine [Mass ratio] 12 No Units Normal 10-20 [facility] Comment on above: Performed By: #### 2 351648, 00402900, 0438779, 0451853 ####[facility] [address] [place] [address] Consent for Procedure/Surger yon 12-24-2022 Consent for Procedure/Surgery [id number]:127 Normal [facility] Consent for Treatmenton 12-11 Consent for Treatment [id number]#[id number]:12 7 Normal [facility] Gastroenterology Office/Clin ic Noteon 12-24-2022 Gastroenterology Office/Clinic Note Chief Complaint Abdominal pain and constipation. HPI Staff Patient is a year old _ who was referred by Dr Horan for abdominal pain that starts on the left side and constipation. History of Present Illness Patient is a 72-year-old female who presents for further evaluation of RUQ pain?referred by her PCP?Dr. Horan. Review of outside records indicates patient with abdominal pain in epigastric and RUQ region. Note indicated patient had CTA of abdomen that was negative for dissection/rupture however showed 3.4 cm abdominal aneurysm?patient to follow-up with PCP regarding. Patient was referred to us here in GI for possible EGD/colonoscopy. PMH of HLD- managed by patient's PCP. Family history of colon cancer: Denies. Family history of colon polyps: Denies. Personal history of colon cancer: Denies. Personal history of colon polyps: Yes, per patient. Anticoagulation therapy: Denies. Antiplatelet therapy: Denies. During today's visit, patient reports over the last 2 years, she has been having upper abdominal pain described as achy and is occurring daily. Abdominal pain occurs without regard to food. She reports having previous colonoscopy over 10 years ago in [place] that was reportedly showed polyps- no record of previous colonoscopy available to review during today's encounter. Is having 1 BM daily or every other day that are formed. She reports having acid reflux that is uncontrolled with nexium 20mg OTC. Is still having acid reflux daily over the last 15-20 years. Denies fevers/chills, nausea/vomiting, black/bloody stools. Denies having any other GI complaints. Review of Systems PHQ Score Initial Depression Screen Score: 0 ROS - Provider Constitutional: no fever, no chills. Skin: no Jaundice. ENMT: Denies dysphagia. Yes acid reflux. Respiratory: no shortness of breath. Cardiovascular: no chest pain. Gastrointestinal: no nausea, no vomiting, no diarrhea, no GI bleeding. Physical Exam Vitals & Measurements T: 36.4 ?C(Temporal Artery) HR: 86(Peripheral) BP: 146/86 HT: 63 in HT: 159 cm WT: 67.6 kg WT: 148.72 lb BMI: 26.74 General: Well developed, well nourished, in no acute distress Head: Normocephalic/atraumatic Lungs: Normal respiratory effort and clear to auscultation Cardio: Regular rate and rhythm, normal S1 and S2, no murmur, no rub Abdomen: Soft, non-distended, non-tender. Normoactive bowel sounds present in all 4 abdominal quadrants, bilaterally. Mental Status: Alert and oriented x3. Normal mood and affect Assessment/Plan BP elevated today at 146/86- BP managed by patient's PCP. Patient to follow-up with PCP regarding elevated BP. 1. Upper abdominal pain (R10.10: Upper abdominal pain, unspecified) Over the last 2 years, has been having upper abdominal pain described as achy and is occurring daily. Abdominal pain occurs without regard to food. Ordered CBC/CMP. Hx. cholecystectomy 25 years ago per patient. Ordered ultrasound of upper abdomen. Ordered EGD to evaluate for PUD. Ordered: CBC w/ Auto Diff Colonoscopy (Hospital Procedure) Comprehensive Metabolic Panel EGD Endoscopy (Hospital Procedure) US Abdomen, Limited 2. Acid reflux (K21.9: Gastro-esophageal reflux disease without esophagitis) Is having acid reflux that is uncontrolled with nexium 20mg OTC. Acid reflux occurring daily despite nexium 20mg daily. Ordered EGD to evaluate for PUD. Educated to stop nexium 20mg OTC. Ordered for patient to start nexium 40mg daily. Ordered: esomeprazole, 40 mg = 1 cap(s), Oral, Daily, X 90 day(s), # 90 cap(s), Refills(s) 0, Pharmacy: [facility], 159, cm, 12/24/22 10:00:00 EDT, Height/Length Dosing, 67.6, kg, 12/24/22 10:00:00 EDT, Weight Dosing EGD Endoscopy (Hospital Procedure) 3. History of colon polyps (Z86.010: Personal history of colonic polyps) Reportedly had previous colonoscopy over 10 years ago in [place] that was reportedly showed polyps- no record of previous colonoscopy available to review during today's encounter. Ordered Colonoscopy. Denies anticoagulation therapy. Ordered: Colonoscopy (Hospital Procedure) Orders: polyethylene glycol 3350 with electrolytes, See Instructions, 1 EA, Refill(s) 0, Prior to colonoscopy., [facility], 159, cm, 12/24/22 10:00:00 EDT, Height/Length Dosing, 67.6, kg, 12/24/22 10:00:00 EDT, Weight Dosing Follow-up With When Contact Information Brigette Martini CNP Within 1 month Additional Instructions: Patient Education Abdominal Pain, Adult Problem List/Past Medical History Ongoing Acid reflux Bilateral flank pain Dysuria Heart disease History of colon polyps History of prolapse of bladder Hyperlipidemia Hypertension Infrequent urination Mixed incontinence Personal history of transient ischemic attack Upper abdominal pain Historical No qualifying data Procedure/Surgical History Introduction of tension free vaginal tape (1989), Cholecystectomy, Hysterectomy, Rotator (more content not included)... Normal [facility] Comment on above: Result Comment: Elec tronically Signed By: Brigette Martini CNP\.br\Date and Time Signed: 12/24/22 10:17 EDT HEMATOLOGYOrdered By: SYSTEM SYSTEM on 12-24-2022 Basophils/100 WBC (Bld) 1.4 % Normal 0.0 - 2.0 % [facility] HemeAutoSS Basophils/Leukocytes Auto (Bld) [Pure # fraction] 0.2 E9/L Normal 0.0 - 0.2 E9/L [facility] HemeAutoSS Eosinophils/100 WBC (Bld) 0.7 % Normal 0.0 - 8.0 % [facility] HemeAutoSS Eosinophils/Leukocytes Auto (Bld) [Pure # fraction] 0.1 E9/L Normal 0.0 - 0.5 E9/L [facility]eAutoSS Lymphocytes/100 WBC (Bld) 19.3 % Normal 14.0 - 50.0 % [facility] HemeAutoSS Lymphocytes/Leukocytes Auto (Bld) [Pure # fraction] 2.6 E9/L Normal 1.0 - 4.0 E9/L [facility]eAutoSS Monocytes/100 WBC (Bld) 7.8 % Normal 4.0 - 14.0 % [facility]eAutoSS Monocytes/Leukocytes Auto (Bld) [Pure # fraction] 1.1 E9/L High 0.2 - 1.0 E9/L [facility]eAutoSS Neutrophils/100 WBC (Bld) 70.8 % Normal 36.0 - 75.0 % [facility] HemeAutoSS Neutrophils/Leukocytes Auto (Bld) [Pure # fraction] 9.6 E9/L High 2.0 - 7.5 E9/L [facility] HemeAutoSS HEMATOLOGYOrdered By: Rolly Ray on 12-24-2022 Erythrocyte distribution width (RBC) [Ratio] 15.0 % High 10.9 - 14.2 % [facility]eAutoSS Hematocrit (Bld) [Volume fraction] 45.9 % Normal 34.0 - 46.0 % [facility] HemeAutoSS Hemoglobin (Bld) [Mass/Vol] 14.9 g/dL Normal 12.0 - 16.0 gm/dL [facility] HemeAutoSS MCH (RBC) [Entitic mass] 29.2 pg Normal 27. 0 - 34.0 pg [facility] HemeAutoSS MCHC (RBC) [Mass/Vol] 32.6 g/dL Normal 31.4 - 36.0 gm/dL [facility] HemeAutoSS MCV (RBC) [Entitic vol] 89.8 fL Normal 80.0 - 100.0 fL [facility] HemeAutoSS Platelet mean volume (Bld) [Entitic vol] 8.4 fL Normal 6.4 - 10.8 fL [facility] HemeAutoSS Platelets (Bld) [#/Vol] 408.0 E9/L Normal 150. 0 - 500.0 E9/L [facility] HemeAutoSS RBC (Bld) [#/Vol] 5.1 E12/L Normal 4.3 - 5.9 E12/L [facility] HemeAutoSS WBC corrected for nucl RBC Auto (Bld) [#/Vol] 13.6 E9/L High 4.0 - 11.0 E9/L [facility] HemeAutoSS Patient Educationon 12-25-19 Patient Education Gastroenterology Abdominal Pain, Adult Pain in the abdomen (abdominal pain) can be caused by many things. Often, abdominal pain is not serious and it gets better with no treatment or by being treated at home. However, sometimes abdominal pain is serious. Your health care provider will ask questions about your medical history and do a physical exam to try to determine the cause of your abdominal pain. Follow these instructions at home: Medicines ? Take hrhh-nom-kcewoen and prescription medicines only as told by your health care provider. ? Do not take a laxative unless told by your health care provider. General instructions ? Watch your condition for any changes. ? Drink enough fluid to keep your urine pale yellow. ? Keep all follow-up visits as told by your health care provider. This is important. Contact a health care provider if: ? Your abdominal pain changes or gets worse. ? You are not hungry or you lose weight without trying. ? You are constipated or have diarrhea for more than 2?3 days. ? You have pain when you urinate or have a bowel movement. ? Your abdominal pain wakes you up at night. ? Your pain gets worse with meals, after eating, or with certain foods. ? You are vomiting and cannot keep anything down. ? You have a fever. ? You have blood in your urine. Get help right away if: ? Your pain does not go away as soon as your health care provider told you to expect. ? You cannot stop vomiting. ? Your pain is only in areas of the abdomen, such as the right side or the left lower portion of the abdomen. Pain on the right side could be caused by appendicitis. ? You have bloody or black stools, or stools that look like tar. ? You have severe pain, cramping, or bloating in your abdomen. ? You have signs of dehydration, such as: ? Dark urine, very little urine, or no urine. ? Cracked lips. ? Dry mouth. ? Sunken eyes. ? Sleepiness. ? Weakness. ? You have trouble breathing or chest pain. Summary ? Often, abdominal pain is not serious and it gets better with no treatment or by being treated at home. However, sometimes abdominal pain is serious. ? Watch your condition for any changes. ? Take cygw-ysk-pirjbjl and prescription medicines only as told by your health care provider. ? Contact a health care provider if your abdominal pain changes or gets worse. ? Get help right away if you have severe pain, cramping, or bloating in your abdomen. This information is not intended to replace advice given to you by your health care provider. Make sure you discuss any questions you have with your health care provider. Document Revised: 08/17/2020 Document Reviewed: 11/07/2019 [employer] Patient Education ? 2022 [employer]. Normal [facility] eGFRon 12-24-2022 GFR/1.73 sq M.predicted among non-blacks MDRD (S/P/Bld) [Vol rate/Area] 61 mL/min/1.73 m2 Normal >=59 [facility] Comment on above: Order Comment: Order added by Discern Expert. Result Comment: Field Coordinator hannah kidney disease could be indicated at eGFR's of less than 60 mL/min/1.73m2. Kidney failure is indicated at less than 15 mL/min/1.73m2. Performed By: #### 2 017941, [id number], 6773917, 9971733 ####[facility] [address] [place] [address] Physician Referralon 023 Physician Referral [id number]#[id number]:12 7 Normal [facility] CBC AUTO DIFFon 11-11-2022 BASO # 0.1 103/ul Normal 0.0-0.1 [facility] Comment on above: Performed By: #### C BC #### [facility] [address] [place] [address] Dr. Anisa Gomez Basophils/100 WBC (Bld) 0.5 % Normal 0.2-2.0 [facility] Comment on above: Performed By: #### C BC #### [facility] [address] [place] [address] Dr. Anisa Gomez EO # 0.1 103/ul Normal 0.0-0.7 [facility] Comment on above: Performed By: #### C BC #### [facility] [address] [place] [address] Dr. Anisa Gomez Eosinophils/100 WBC (Bld) 0.8 % Critically low 0.9-7.0 [facility] Comment on above: Performed By: #### C BC #### [facility] [address] [place] [address] Dr. Anisa Gomez Erythrocyte distribution width (RBC) [Ratio] 15.2 % Critically high 11.0-15.0 [facility] Comment on above: Performed By: #### C BC #### [facility] [address] [place] [address] Dr. Anisa Gomez Hematocrit (Bld) [Volume fraction] 48.8 % Critically high 36.0-48.0 [facility] Comment on above: Performed By: #### C BC #### [facility] [address] [place] [address] Dr. Anisa Gomez Hemoglobin (Bld) [Mass/Vol] 15.8 g/dL Normal 12.0-16.0 [facility] Comment on above: Performed By: #### C BC #### [facility] [address] [place] [address] Dr. Anisa Gomez IG # 0.03 10e3/ul Normal 0.00-0.03 [facility] Comment on above: Performed By: #### C BC #### [facility] [address] [place] [address] Dr. Anisa Gomez IG % 0.2 % Normal 0.0-0.5 [facility] Comment on above: Performed By: #### C BC #### [facility] [address] [place] [address] Dr. Anisa Gomez LYMPH # 3.2 103/ul Normal 1.2-3.8 [facility] Comment on above: Performed By: #### C BC #### [facility] [address] [place] [address] Dr. Anisa Gomez Lymphocytes/100 WBC (Bld) 21.9 % Normal 20.5-60.0 [facility] Comment on above: Performed By: #### C BC #### [facility] [address] [place] [address] Dr. Anisa Gomez MANUAL DIFF REQ NO Normal [facility] Comment on above: Performed By: #### C BC #### [facility] [address] [place] [address] Dr. Anisa Gomez MCH (RBC) [Entitic mass] 29.9 pg Normal 26.7-34.0 [facility] Comment on above: Performed By: #### C BC #### [facility] [address] [place] [address] Dr. Anisa Gomez MCHC (RBC) [Mass/Vol] 32.4 g/dL Normal 29.9-35.2 [facility] Comment on above: Performed By: #### C BC #### [facility] [address] [place] [address] Dr. Anisa Gomez MCV (RBC) [Entitic vol] 92.2 fL Normal 81.0-99.0 [facility] Comment on above: Performed By: #### C BC #### [facility] [address] [place] [address] Dr. Anisa Gomez MONO # 1.2 103/ul Critically high 0.3-0.8 [facility] Comment on above: Performed By: #### C BC #### [facility] [address] [place] [address] Dr. Anisa Gomez Monocytes/100 WBC (Bld) 8.0 % Normal 1.7-12.0 [facility] Comment on above: Performed By: #### C BC #### [facility] [address] [place] [address] Dr. Anisa Gomez NEUT # 9.9 103/ul Critically high 1.4-6.5 [facility] Comment on above: Performed By: #### C BC #### [facility] [address] [place], [place] [id number] Dr. Anisa Gomez Neutrophils/100 WBC (Bld) 68.6 % Normal 43.0-75.0 [facility] Comment on above: Performed By: #### C BC #### [facility] [address] [place] [address] Dr. Anisa Gomez Platelet mean volume (Bld) [Entitic vol] 10.6 fL Normal 9.5-13.5 [facility] Comment on above: Performed By: #### C BC #### [facility] [address] [place] [address] Dr. Anisa Gomez PLT 336 103/ul Normal 150-450 [facility] Comment on above: Performed By: #### C BC #### [facility] [address] [place] [address] Dr. Anisa Gomez RBC 5.29 106/ul Normal 4.20-5.40 [facility] Comment on above: Performed By: #### C BC #### [facility] [address] [place] [address] Dr. Anisa Gomez WBC 14.4 103/ul Critically high 4.0-11.0 [facility] Comment on above: Performed By: #### C BC #### [facility] [address] [place] [address] Dr. Anisa Gomez CTA ABD/PELVIS WO W CONon CTA ABD/PELVIS WO W CON EXAM: CTA ABD/PE LVIS WO W CON TECHNIQUE: Axial angiographic CT images were obtained of the abdomen and pelvis following intravenous contrast administration. Sagittal and coronal reformatted images were also obtained. Dose reduction techniques were achieved by using automated exposure control and/or adjustment of mA and/or kV according to patient size and/or use of iterative reconstruction technique. HISTORY: CHEST PAIN, UNSPECIFIED COMPARISON: None. FINDINGS: Liver: The liver is mildly enlarged up to 19 cm in length. No hepatic mass lesion. Gallbladder: Status post cholecystectomy. No significant biliary dilatation. Pancreas: The pancreas is homogeneous without evidence for mass lesion or inflammation. Spleen: The spleen is unremarkable without evidence for mass lesion. Adrenal glands: The adrenal glands are unremarkable Kidneys and bladder: A couple small benign cortical renal cysts bilaterally. The ureters demonstrate normal caliber. The urinary bladder is unremarkable. GI Tract: Stomach is unremarkable. Visualized small bowel is unremarkable without evidence for obstruction or active inflammation. The appendix is unremarkable.The visualized portion of the large bowel is unremarkable. Reproductive: The uterus has been removed. Lymph nodes: No retroperitoneal or abdominal lymphadenopathy. Vascular: Mild aneurysmal dilatation of the infrarenal abdominal aorta measuring 3.4 cm AP. The celiac, superior mesenteric and inferior mesenteric arteries are patent. Mild atherosclerotic narrowing at the origin of the left renal artery. The right renal arteries widely patent. Iliac arteries are patent bilaterally. Peritoneum: No free intraperitoneal air or fluid. No acute inflammation. Abdominal wall: Degenerative changes of the lumbar spine. IMPRESSION: Mild aneurysmal dilatation of the infrarenal abdominal aorta. No evidence for aortic dissection. No acute inflammatory process of the abdomen or pelvis. Electronically authenticated by: LAYNE HO Date: 2022-11-11 18:26 Normal [facility] CTA CHEST WO W CONon 023 CTA CHEST WO W CON EXAMINATION: CTA [facility] ST WO W CON HISTORY: CHEST PAIN, UNSPECIFIED COMPARISON: CT chest 10/27/2022, 07/24/2022 TECHNIQUE: Thin section transaxial slices were acquired through the chest with intravenous contrast per PE protocol. Coronal and sagittal reconstructed images were reviewed. FINDINGS: PULMONARY ARTERIES: There is good opacification of the pulmonary vasculature. No pulmonary arterial filling defects are present. LUNGS/AIRWAYS: No areas of consolidation are seen. There are a few small nodules in bilateral upper lobes, largest measures 4 mm in the left upper lobe, unchanged since 07/24/2022. No new nodules are seen. Mild centrilobular emphysematous changes are seen. There are bibasilar scarring/mild atelectasis and mild subpleural reticulations in bilateral lower lobes. The central airways are patent. PLEURAL CAVITY: No pleural effusion or pneumothorax. HEART/PERICARDIUM: The heart is normal in size. Trace pericardial effusion. Severe atherosclerotic calcifications in the LAD coronary artery. MEDIASTINAL/HILAR LYMPH NODES: No pathologically enlarged lymph nodes. CHEST WALL/AXILLA/LOWER NECK: Normal. VISUALIZED UPPER ABDOMEN: No acute abnormality. Status post cholecystectomy. Partially visualized abdominal aorta aneurysm. BONES: No acute process.. IMPRESSION: 1. No evidence of pulmonary embolism. 2. No evidence of pneumonia. 3.. Stable small nodules in bilateral upper lobes, measuring up to 4 mm. No new nodules. 4. Coronary atherosclerosis. Trace pericardial effusion Electronically authenticated by: ANDRES UNLU Date: 2022-11-11 17:48 Normal [facility] URINE PROFILEon 3 Bilirubin Ql (U) Negative Normal NEGATIVE [facility] Comment on above: Performed By: #### E RUR ####[facility] [address] [place], [place] [address]Dr. Anisa Gomez Clarity (U) CLEAR Normal CLEAR [facility] Comment on above: Performed By: #### E RUR ####[facility] [address] [place], [place] [address]Dr. Anisa Gomez Color (U) LT. YELLOW Normal YELLOW [facility] Comment on above: Performed By: #### E RUR ####[facility] [address] [place], [place] [address]Dr. Anisa Gomez ERUAHD A micrscopic examina tion will be performed if indicated. Normal [facility] Comment on above: Performed By: #### E RUR ####[facility] [address] [place], [place] [address]Dr. Anisa Gomez Glucose Ql (U) Negative Normal NEGATIVE [facility] Comment on above: Performed By: #### E RUR ####[facility] [address] [place], [place] [address]Dr. Anisa Gomez Hemoglobin Ql (U) Negative Normal NEGATIVE [facility] Comment on above: Performed By: #### E RUR ####[facility] [address] [place], [place] [address]Dr. Anisa Gomez Ketones Ql (U) Negative Normal NEGATIVE [facility] Comment on above: Performed By: #### E RUR ####[facility] [address] [place] [address]Dr. Anisa Gomez LEUKOCYTES Negative Normal NEGATIVE [facility] Comment on above: Performed By: #### E RUR ####[facility] [address] [place], [place] [address]Dr. Anisa Gomez Nitrite Ql (U) Negative Normal NEGATIVE [facility] Comment on above: Performed By: #### E RUR ####[facility] [address] [place], [place] [address]Dr. Anisa Gomez pH (U) 5.5 [pH] Normal 5-9 [facility] Comment on above: Performed By: #### E RUR ####[facility] [address] [place], [place] [address]Dr. Anisa Gomez SPEC GRAVITY >=1.030 Abnormal 1.005-<=1. 025 [facility] Comment on above: Performed By: #### E RUR ####[facility] [address] [place], [place] [address]Dr. Anisa Gomez UA PROTEIN Negative Normal NEGATIVE/ TRACE [facility] Comment on above: Performed By: #### E RUR ####[facility] [address] [place], [place] [address]Dr. Anisa Gomez UR MICRO IND NOT INDICATED Normal [facility] Comment on above: Performed By: #### E RUR ####[facility] [address] [place], [place] [address]Dr. Anisa Gomez Urobilinogen Qn (U) 0.2 {Agustin'U}/dL Normal 0.2 - 1. 0 [facility] Comment on above: Performed By: #### E RUR ####[facility] [address] [place], [place] [address]Dr. Anisa Gomez LIPASEon 11-11-2022 Lipase [Catalytic activity/Vol] 100.0 U/L Normal 73.0-393.0 [facility] Comment on above: Performed By: #### L JANET OVALLE #### [facility] [address] [address] [address] Anisa Gomez LIVER PROFILEon 11-11-2022 Albumin [Mass/Vol] 3.8 g/dL Normal 3.4-5.0 [facility] Comment on above: Performed By: #### L IVER, LIPA #### [facility] [address] [address] [address] Anisa Gomez Albumin/Globulin [Mass ratio] 0.9 {ratio} Normal [facility] Comment on above: Performed By: #### L IVER, LIPA #### [facility] [address] [address] [address] Anisa Gomez ALP [Catalytic activity/Vol] 107 U/L Normal 46-116 [facility] Comment on above: Performed By: #### L IVER, LIPA #### [facility] [address] [place] [address] Dr. Anisa Gomez ALT [Catalytic activity/Vol] 25 U/L Normal 14-59 [facility] Comment on above: Performed By: #### L IVER, LIPA #### [facility] [address] [address] [address] Anisa Gomez AST [Catalytic activity/Vol] 25 U/L Normal 15-37 [facility] Comment on above: Performed By: #### L IVER, LIPA #### [facility] [address] [address] [address] Anisa Gomez BILI, CONJUGATED 0.1 mg/dL Normal 0.0-0.2 [facility] Comment on above: Performed By: #### L IVER, LIPA #### [facility] [address] [address] [address] Anisa Gomez Bilirubin [Mass/Vol] 0.5 mg/dL Normal 0.2-1.0 [facility] Comment on above: Performed By: #### L IVER, LIPA #### [facility] [address] [address] [address] Anisa Gomez Globulin (S) [Mass/Vol] 4.0 g/dL Normal T [facility] Comment on above: Performed By: #### L JAENT OVALLE #### [facility] [address] [place] [address] Dr. Anisa Gomez Protein [Mass/Vol] 7.8 g/dL Normal 6.4-8.2 [facility] Comment on above: Performed By: #### L JANET OVALLE #### [facility] [address] [place] [address] Dr. Anisa Gomez PROF CHEM 8 (BAS METB)on Anion gap [Moles/Vol] 13.2 mmol/L Normal [facility] Comment on above: Performed By: #### B MP #### [facility] [address] [place] [address] Dr. Anisa Gomez Calcium [Mass/Vol] 9.4 mg/dL Normal 8.5-10.1 [facility] Comment on above: Performed By: #### B MP #### [facility] [address] [place] [address] Dr. Anisa Gomez Chloride [Moles/Vol] 103 mmol/L Normal 98-107 [facility] Comment on above: Performed By: #### B MP #### [facility] [address] [place] [address] Dr. Anisa Gomez CO2 [Moles/Vol] 29.3 mmol/L Normal 21.0-32.0 [facility] Comment on above: Performed By: #### B MP #### [facility] [address] [place] [address] Dr. Anisa Gomez Creatinine [Mass/Vol] 1.02 mg/dL Normal 0.55-1.02 [facility] Comment on above: Performed By: #### B MP #### [facility] [address] [place] [address] Dr. Anisa Gomez EGFR-AF SLOVAK 60 mL/min/1.73m2 Normal >=60 [facility] Comment on above: Performed By: #### B MP #### [facility] [address] [place] [address] Dr. Ainsa Gomez EGFR-NON AF SLOVAK 54 mL/min/1.73m2 Critically low >=60 [facility] Comment on above: Performed By: #### B MP #### [facility] [address] [address] [address] Anisa Gomez Glucose [Mass/Vol] 102 mg/dL Normal 74-106 [facility] Comment on above: Performed By: #### B MP #### [facility] [address] [address] [address] Anisa Gomez Potassium [Moles/Vol] 4.5 mmol/L Normal 3.5-5.1 [facility] Comment on above: Performed By: #### B MP #### [facility] [address] [address] [address] Anisa Gomez Sodium [Moles/Vol] 141 mmol/L Normal 136-145 [facility] Comment on above: Performed By: #### B MP #### [facility] [address] [address] [address] Anisa Gomez Urea nitrogen [Mass/Vol] 16.0 mg/dL Normal 7.0-18.0 [facility] Comment on above: Performed By: #### B MP #### [facility] [address] [place] [address] Dr. Anisa Gomez Urea nitrogen/Creatinine [Mass ratio] 15.7 mg/mg Normal [facility] Comment on above: Performed By: #### B MP #### [facility] [address] [place] [address] CHEST WO CONon 11-05-2022 CT CHEST WO CON Begin Addendum # 1 Comparison is done with prior study from 07/24/2022. Previously noted 0.6 cm left upper lobe pulmonary nodule is unchanged in size and appearance. Previously noted right upper lobe nodule is not visualized on the current study. There are multiple nodular opacities in the right upper lobe measuring up to 0.4 cm, likely inflammatory/infectious in etiology. There is right basilar atelectasis. Unchanged partially visualized abdominal aortic aneurysm measuring 2.6 cm. There appears focal displacement of the mural calcification and may represent chronic dissection. Original Report EXAMINATION: CT CHEST WO CON HISTORY: Lung field abnormal COMPARISON: None. TECHNIQUE: CT examination of the chest without IV contrast. Coronal and sagittal reformations were performed. Dose reduction techniques were achieved by using automated exposure control and/or adjustment of mA and/or kV according to patient size and/or use of iterative reconstruction technique. FINDINGS: Lungs: No consolidation, mass, or effusion. There is bilateral centrilobular emphysema. There are multiple bilateral nodular opacities measuring up to 0.4 cm, likely post infectious/inflammatory in etiology. Airways: Normal. Mediastinum: No adenopathy. Aorta: No aneurysm. Cardiac: Normal size. No pericardial effusion. Pulmonary vasculature: Normal morphology. Bones: No acute bony abnormality. Axilla: No adenopathy. Thyroid gland: No abnormality demonstrated on provided imaging. Soft tissues: Unremarkable. Upper abdomen: Small hiatal hernia. Cholecystectomy. Partially visualized abdominal aortic aneurysm measuring 2.6 cm. There appears focal displacement of the mural calcification and may represent chronic dissection. (Series 3, image 96). Other findings: None. IMPRESSION: multiple bilateral nodular opacities measuring up to 0.4 cm, likely post infectious/inflammatory in etiology. Small hiatal hernia. Partially visualized abdominal aortic aneurysm measuring 2.6 cm. There appears focal displacement of the mural calcification and may represent chronic dissection. CT angiogram is recommended for better evaluation. Normal [facility] HEMOGLOBINon 10-27-2022 Hemoglobin (Bld) [Mass/Vol] 14.5 g/dL Normal 12.0-16.0 [facility] Comment on above: Performed By: #### H GB ####[facility] [address] [place], [place] [address]TsCathy Anisa Gomez Operative Reporton 3 Operative Report [id number]:12 7 Normal [facility] Consent for Procedure/Surger yon 08-15-2022 Consent for Procedure/Surgery [id number]:12 7 Normal [facility] Physician Referralon 023 Physician Referral [id number]:12 7 Normal [facility] Ambulatory Visit Summaryon 0 08-11-2022 Ambulatory Visit Summary BHUPENDRA RUBI :1950 Visit Date:08/11/2022 Ambulatory Visit Instructions Your Diagnosis Mixed incontinence Bilateral flank pain Dysuria Infrequent urination Tests Performed Urnls Dip Stick Auto w/o Microscopy POC 98906 Your Care Team Attending Physician - TRISTA FARFAN, Armando Mckay Primary Care Physician - SHAIKH HORAN This Is Your Medications List Contact prescribing physician if questions or concerns albuterol (Albuterol (Eqv-ProAir HFA) 90 mcg/inh inhalation aerosol) atorvastatin (atorvastatin 80 mg Tab) gabapentin (gabapentin 300 mg Cap) trazodone (traZODONE 100 mg Tab) Procedures Performed Introduction of tension free vaginal tape (1989), Cholecystectomy, Hysterectomy, Rotator cuff. Discharge Vitals Heart Rate (Peripheral) 68 Respiratory Rate 16 Blood Pressure 137/80 Height 159 cm Height 63 in Weight 64 kg Weight 140.8 lb BMI 25.32 What to do next You Need to Schedule the Following Appointments Follow Up with TRISTA FARFAN, Armando Mckay, AIDEN When: Where: [facility] [address], [place] [address]- Medications What How Much When Instructions Unchanged albuterol (Albuterol (Eqv-ProAir HFA) 90 mcg/ inh inhalation aerosol) 8 gm, INHALE 2 PUFFS BY MOUTH EVERY 4 HOURS NEEDED for SHORTNESS OF BREATH Contact prescribing physician if questions or concerns Unchanged atorvastatin (atorvastatin 80 mg Tab) Every day Contact prescribing physician if questions or concerns Unchanged gabapentin (gabapentin 300 mg Cap) 3 times a day Contact prescribing physician if questions or concerns Unchanged trazodone (traZODONE 100 mg Tab) Contact prescribing physician if questions or concerns Test Results Urnls Dip Stick Auto w/o Microscopy POC 78057 (08/11/2022) Bilirubin Urine Dipstick - Negative Blood Urine Dipstick - Negative Glucose Urine Dipstick - Negative Ketones Urine Dipstick - Negative Leukocytes Urine Dipstick - Negative Nitrite Urine Dipstick - Negative Protein Urine Dipstick - Negative Specific [place] Urine Dipstick - <=1.005 Urine Appearance Urine Dipstick - Clear Urine Color Urine Dipstick - Light yellow Urobilinogen Urine Dipstick - Normal 0.2-1 EU/dl pH Urine Dipstick - 5.5 Allergies No Known Allergies No Known Medication Allergies Problems Ongoing - Any problem that you are currently receiving treatment for. Bilateral flank pain Dysuria Heart disease History of prolapse of bladder Hyperlipidemia Hypertension Infrequent urination Mixed incontinence Personal history of transient ischemic attack Education Materials Kegel Exercises Kegel exercises can help strengthen your pelvic floor muscles. The pelvic floor is a group of muscles that support your rectum, small intestine, and bladder. In females, pelvic floor muscles also help support the womb (uterus). These muscles help you control the flow of urine and stool. Kegel exercises are painless and simple, and they do not require any equipment. Your provider may suggest Kegel exercises to: ? Improve bladder and bowel control. ? Improve sexual response. ? Improve weak pelvic floor muscles after surgery to remove the uterus (hysterectomy) or (females). ? Improve weak pelvic floor muscles after prostate gland removal or surgery (males). Kegel exercises involve squeezing your pelvic floor muscles, which are the same muscles you squeeze when you try to stop the flow of urine or keep from passing gas. The exercises can be done while sitting, standing, or lying down, but it is best to vary your position. Exercises How to do Kegel exercises: 1. Squeeze your pelvic floor muscles tight. You should feel a tight lift in your rectal area. If you are a female, you should also feel a tightness in your vaginal area. Keep your stomach, buttocks, and legs relaxed. 2. Hold the muscles tight for up to 10 seconds. 3. Breathe normally. 4. Relax your muscles. 5. Repeat as told by your health care provider. Repeat this exercise daily as told by your health care provider. Continue to do this exercise for at least 4?6 weeks, or for as long as told by your health care provider. You may be referred to a physical therapist who can help you learn more about how to do Kegel exercises. Depending on your condition, your health care provider may recommend: ? Varying how long you squeeze your muscles. ? Doing several sets of exercises every day. ? Doing exercises for several weeks. ? Making Kegel exercises a part of your regular exercise routine. This information is not intended to replace advice given to you by your health care provider. Make sure you discuss any questions you have with your health care provider. Document Released: 06/15/2013 Document Revised: 02/16/2019 Document Reviewed: 02/16/2019 [employer] Patient Education ? 2020 [employer] Juliano Clark [facility] Patient Educationon 08-11-19 Patient Education Obstetrics and Gynec ology Kegel Exercises Kegel exercises can help strengthen your pelvic floor muscles. The pelvic floor is a group of muscles that support your rectum, small intestine, and bladder. In females, pelvic floor muscles also help support the womb (uterus). These muscles help you control the flow of urine and stool. Kegel exercises are painless and simple, and they do not require any equipment. Your provider may suggest Kegel exercises to: ? Improve bladder and bowel control. ? Improve sexual response. ? Improve weak pelvic floor muscles after surgery to remove the uterus (hysterectomy) or (females). ? Improve weak pelvic floor muscles after prostate gland removal or surgery (males). Kegel exercises involve squeezing your pelvic floor muscles, which are the same muscles you squeeze when you try to stop the flow of urine or keep from passing gas. The exercises can be done while sitting, standing, or lying down, but it is best to vary your position. Exercises How to do Kegel exercises: 1. Squeeze your pelvic floor muscles tight. You should feel a tight lift in your rectal area. If you are a female, you should also feel a tightness in your vaginal area. Keep your stomach, buttocks, and legs relaxed. 2. Hold the muscles tight for up to 10 seconds. 3. Breathe normally. 4. Relax your muscles. 5. Repeat as told by your health care provider. Repeat this exercise daily as told by your health care provider. Continue to do this exercise for at least 4?6 weeks, or for as long as told by your health care provider. You may be referred to a physical therapist who can help you learn more about how to do Kegel exercises. Depending on your condition, your health care provider may recommend: ? Varying how long you squeeze your muscles. ? Doing several sets of exercises every day. ? Doing exercises for several weeks. ? Making Kegel exercises a part of your regular exercise routine. This information is not intended to replace advice given to you by your health care provider. Make sure you discuss any questions you have with your health care provider. Document Released: 06/15/2013 Document Revised: 02/16/2019 Document Reviewed: 02/16/2019 [employer] Patient Education ? 2019 [employer] Normal [facility] CT LUNG CANCER SCREENINGon 0 07-24-2022 CT LUNG CANCER SCREENING EXAMINATION: CT LUNG CANCER SCREENING HISTORY: Tobacco dependence caused by cigarettes COMPARISON: No relevant comparison available. TECHNIQUE: Axial, Coronal, and Sagittal images were created without the administration of IV contrast material. Dose reduction techniques were achieved by using automated exposure control and/or adjustment of mA and/or kV according to patient size and/or use of iterative reconstruction technique. FINDINGS: LUNGS: 3 small irregular opacities within close proximity to one another within the posterior segment of right upper lobe, largest is 4 mm. Within the inferior lateral aspect of the left upper lobe at level of hilum is a 6 mm irregular opacity with adjacent 3 mm opacity. Mild emphysematous changes and a few scattered blebs and bulla. PLEURA: No mass, effusion, or pneumothorax. VASCULATURE: No abnormality. MALCOLM: No mass or pathologic adenopathy. MEDIASTINUM: No mass or pathologic adenopathy. CARDIAC: No enlargement, pericardial thickening, or significant calcification. AORTA: No aneurysm or dissection. CHEST WALL: No mass or axillary adenopathy BONES: No bone lesion or fracture. LIMITED ABDOMEN: No suspicious findings. Limited images of the upper abdomen. OTHER: Negative. IMPRESSION: 1. Lung-RADS Category 4A- Suspicious. Findings for which additional diagnostic testing and/ or tissue sampling is recommended. 3 month LDCT; PET/CT may be used when there is a >= 8 mm solid component. 2. Irregular nodules versus infiltrates within right upper lobe and left upper lobe as detailed above. Follow-up CT chest without contrast in 3 months is recommended to document stability versus change. Electronically authenticated by: ROMEL CERVANTES Date: 2022-07-24 17:20 Normal [facility] MG MAMM SCREEN 3D BRISSA CADon 07-09-2022 MG MAMM SCREEN 3D BRISSA CAD Patient: BHUPENDRA RUBI Exam Date: 07/09/2022 : 1950 Gender:F Ordering : SHAIKH Eddie HORAN . Admission #: [id number] Family : Order #: [id number] CLICK HERE TO VIEW EXAM RADIOLOGY REPORT PROCEDURE: MAMMOGRAM SCREENING 3D BILATERAL CAD COMPARISON: MG MAMM SCREEN BRISSA W CAD, 05/21/2015. MG MAMM SCREEN BRISSA W CAD, 08/10/2017. INDICATIONS: Screening mammography Calculator Name NCI Breast Cancer Risk Assessment Tool 5 Year Breast Cancer Risk Not Reported. Lifetime Breast Cancer Risk Not Reported. Personal Breast Cancer No Personal Ovarian Cancer No Treatments None Family Cancers None LOCATION: [facility] BREAST COMPOSITION: Heterogeneously dense,which may obscure small masses. FINDINGS: DIAGNOSTIC CATEGORY 1--NEGATIVE. RIGHT BREAST: No significant suspicious finding. No significant change has occurred. LEFT BREAST: No significant suspicious finding. No significant change has occurred. RECOMMENDATIONS: ROUTINE MAMMOGRAM AND CLINICAL EVALUATION IN 12 MONTHS. PLEASE NOTE: A NORMAL MAMMOGRAM DOES NOT EXCLUDE THE POSSIBILITY OF BREAST CANCER. A CLINICALLY SUSPICIOUS PALPABLE LUMP SHOULD BE BIOPSIED. Dictated by: Romel Cervantes M.D. on 07/25/2022 at 08:48 Approved by: Romel Cervantes M.D. on 07/25/2022 at 08:51 Normal [facility] CBC AUTO DIFFon 05-07-2022 BASO # 0.1 103/ul Normal 0.0-0.1 [facility] Comment on above: Performed By: #### C BC #### [facility] [address] [place] [address] Dr. Anisa Gomez Basophils/100 WBC (Bld) 0.7 % Normal 0.2-2.0 [facility] Comment on above: Performed By: #### C BC #### [facility] [address] [place] [address] Dr. Anisa Gomez EO # 0.1 103/ul Normal 0.0-0.7 [facility] Comment on above: Performed By: #### C BC #### [facility] [address] [address] [address] Anisa Gomez Eosinophils/100 WBC (Bld) 0.6 % Critically low 0.9-7.0 [facility] Comment on above: Performed By: #### C BC #### [facility] [address] [place] [address] Dr. Anisa Gomez Erythrocyte distribution width (RBC) [Ratio] 14.9 % Normal 11.0-15.0 [facility] Comment on above: Performed By: #### C BC #### [facility] [address] [place] [address] Dr. Anisa Gomez Hematocrit (Bld) [Volume fraction] 48.4 % Critically high 36.0-48.0 [facility] Comment on above: Performed By: #### C BC #### [facility] [address] [place] [address] Dr. Anisa Gomez Hemoglobin (Bld) [Mass/Vol] 15.6 g/dL Normal 12.0-16.0 [facility] Comment on above: Performed By: #### C BC #### [facility] [address] [place] [address] Dr. Anisa Gomez IG # 0.02 10e3/ul Normal 0.00-0.03 [facility] Comment on above: Performed By: #### C BC #### [facility] [address] [place] [address] Dr. Anisa Gomez IG % 0.2 % Normal 0.0-0.5 [facility] Comment on above: Performed By: #### C BC #### [facility] [address] [place] [address] Dr. Anisa Gomez LYMPH # 2.9 103/ul Normal 1.2-3.8 [facility] Comment on above: Performed By: #### C BC #### [facility] [address] [place] [address] Dr. Anisa Gomez Lymphocytes/100 WBC (Bld) 28.6 % Normal 20.5-60.0 [facility] Comment on above: Performed By: #### C BC #### [facility] [address] [place] [address] Dr. Anisa Gomez MANUAL DIFF REQ NO Normal [facility] Comment on above: Performed By: #### C BC #### [facility] [address] [place] [address] Dr. Anisa Gomez MCH (RBC) [Entitic mass] 29.2 pg Normal 26.7-34.0 [facility] Comment on above: Performed By: #### C BC #### [facility] [address] [address] [address] Anisa Gomez MCHC (RBC) [Mass/Vol] 32.2 g/dL Normal 29.9-35.2 [facility] Comment on above: Performed By: #### C BC #### [facility] [address] [place] [address] Dr. Anisa Gomez MCV (RBC) [Entitic vol] 90.5 fL Normal 81.0-99.0 [facility] Comment on above: Performed By: #### C BC #### [facility] [address] [place] [address] Dr. Anisa Gomez MONO # 1.0 103/ul Critically high 0.3-0.8 [facility] Comment on above: Performed By: #### C BC #### [facility] [address] [place] [address] Dr. Anisa Gomez Monocytes/100 WBC (Bld) 9.5 % Normal 1.7-12.0 [facility] Comment on above: Performed By: #### C BC #### [facility] [address] [place] [address] Dr. Anisa Gomez NEUT # 6.2 103/ul Normal 1.4-6.5 [facility] Comment on above: Performed By: #### C BC #### [facility] [address] [place] [address] Dr. Anisa Gomez Neutrophils/100 WBC (Bld) 60.4 % Normal 43.0-75.0 [facility] Comment on above: Performed By: #### C BC #### [facility] [address] [place] [address] Dr. Anisa Gomez Platelet mean volume (Bld) [Entitic vol] 10.1 fL Normal 9.5-13.5 [facility] Comment on above: Performed By: #### C BC #### [facility] [address] [place] [address] Dr. Anisa Gomez PLT 403 103/ul Normal 150-450 [facility] Comment on above: Performed By: #### C BC #### [facility] [address] [address] [address] Anisa Gomez RBC 5.35 106/ul Normal 4.20-5.40 [facility] Comment on above: Performed By: #### C BC #### [facility] [address] [address] [address] Anisa Gomez WBC 10.2 103/ul Normal 4.0-11.0 [facility] Comment on above: Performed By: #### C BC #### [facility] [address] [address] [address] Anisa Gomez LIPID PROFILEon 05-07-2022 CHOL-HDL RATIO NORM SEE BELOW Normal [facility] Comment on above: Result Comment: 3.3 - 4.4 LOW RISK 4.4 - 7.1 AVERAGE RISK 7.1 - 11.0 MODERATE RISK >11.0 HIGH RISK Performed By: #### L IPID, CMP ####[facility] [address] [id number]. Anisa Gomez Cholesterol [Mass/Vol] 242 mg/dL Critically high <=200 [facility] Comment on above: Performed By: #### L IPID, CMP ####[facility] [address] [id number] Gomez Cholesterol in HDL [Mass/Vol] 49 mg/dL Normal 40-60 [facility] Comment on above: Performed By: #### L IPID, CMP ####[facility] [address] [id number]. Anisa Gomez Cholesterol in LDL [Mass/Vol] 148.4 mg/dL Normal [facility] Comment on above: Performed By: #### L IPID, CMP ####[facility] [address] [id number]. Anisa Gomez Cholesterol.total/Choles terol in HDL [Mass ratio] 4.9 {ratio} Normal [facility] Comment on above: Performed By: #### L IPID, CMP ####[facility] [address] [id number]. Anisa Gomez HDL NORMAL > or = 60 mg/dl - LO W CARDIOVASCULAR RISK <40 mg/dl - HIGH CARDIOVASCULAR RISK Normal [facility] Comment on above: Performed By: #### L IPID, CMP ####[facility] [address] [address]Dr. Anisa Gomez LDL CALC NORMAL SEE BELOW Normal [facility] Comment on above: Result Comment: <100 mg/dl OPTIMAL 100 - 129 mg/dl NEAR OR ABOVE OPTIMAL 130 - 159 mg/dl BORDERLINE HIGH 160 - 189 mg/dl HIGH >190 mg/dl VERY HIGH Performed By: #### L IPID, CMP ####[facility] [address] [id number]. Anisa Gomez Triglyceride [Mass/Vol] 223 mg/dL Critically high <=150 [facility] Comment on above: Performed By: #### L IPID, CMP ####[facility] [address] [address]Dr. Anisa Gomez VLDL CALC 44.6 mg/dL Normal [facility] Comment on above: Performed By: #### L IPID, CMP ####[facility] [address] [address]Dr. Anisa Gomez PROF 14(COMP METB)on 022 Albumin [Mass/Vol] 3.6 g/dL Normal 3.4-5.0 [facility] Comment on above: Performed By: #### L IPID, CMP ####[facility] [address] [address]Dr. Anisa Gomez Albumin/Globulin [Mass ratio] 1.0 {ratio} Normal [facility] Comment on above: Performed By: #### L IPID, CMP ####[facility] [address] [id number]. Anisa Gomez ALP [Catalytic activity/Vol] 95 U/L Normal 46-116 [facility] Comment on above: Performed By: #### L IPID, CMP ####[facility] [address] [id number]. Anisa Gomez ALT [Catalytic activity/Vol] 21 U/L Normal 14-59 [facility] Comment on above: Performed By: #### L IPID, CMP ####[facility] [address] [address]Dr. Anisa Gomez Anion gap [Moles/Vol] 6.3 mmol/L Normal [facility] Comment on above: Performed By: #### L IPID, CMP ####[facility] [address] [address]Dr. Anisa Jason AST [Catalytic activity/Vol] 15 U/L Normal 15-37 [facility] Comment on above: Performed By: #### L IPID, CMP ####[facility] [address] [place], [place] [address]Dr. Anisa Gomez Bilirubin [Mass/Vol] 0.5 mg/dL Normal 0.2-1.0 [facility] Comment on above: Performed By: #### L IPID, CMP ####[facility] [address] [place], [place] [address]Dr. Anisa Gomez Calcium [Mass/Vol] 9.1 mg/dL Normal 8.5-10.1 [facility] Comment on above: Performed By: #### L IPID, CMP ####[facility] [address] [place], [place] [address]Dr. Anisa Gomez Chloride [Moles/Vol] 104 mmol/L Normal 98-107 [facility] Comment on above: Performed By: #### L IPID, CMP ####[facility] [address] [place], [place] [address]Dr. Anisa Gomez CO2 [Moles/Vol] 33.4 mmol/L Critically high 21.0-32.0 [facility] Comment on above: Performed By: #### L IPID, CMP ####[facility] [address] [place], [place] [address]Dr. Anisa Gomez Creatinine [Mass/Vol] 0.90 mg/dL Normal 0.55-1.02 [facility] Comment on above: Performed By: #### L IPID, CMP ####[facility] [address] [place], [place] [address]Dr. Anisa Gomez EGFR-AF SLOVAK >60 Normal >=60 [facility] Comment on above: Performed By: #### L IPID, CMP ####[facility] [address] [address]Dr. Anisa Gomez EGFR-NON AF SLOVAK >60 Normal >=60 [facility] Comment on above: Performed By: #### L IPID, CMP ####[facility] [address] [address]Dr. Anisa Gomez Globulin (S) [Mass/Vol] 3.7 g/dL Normal T [facility] Comment on above: Performed By: #### L IPID, CMP ####[facility] [address] [place], [place] [address]Dr. Anisa Gomez Glucose [Mass/Vol] 67 mg/dL Critically low 74-106 Th [facility] Comment on above: Performed By: #### L IPID, CMP ####[facility] [address] [place], [place] [address]Dr. Anisa Gomez Potassium [Moles/Vol] 3.7 mmol/L Normal 3.5-5.1 [facility] Comment on above: Performed By: #### L IPID, CMP ####[facility] [address] [place], [place] [address]Dr. Anisa Gomez Protein [Mass/Vol] 7.3 g/dL Normal 6.4-8.2 [facility] Comment on above: Performed By: #### L IPID, CMP ####[facility] [address] [place], [place] [address]Dr. Anisa Gomez Sodium [Moles/Vol] 140 mmol/L Normal 136-145 [facility] Comment on above: Performed By: #### L IPID, CMP ####[facility] [address] [place], [place] [address]Dr. Anisa Gomez Urea nitrogen [Mass/Vol] 13.0 mg/dL Normal 7.0-18.0 [facility] Comment on above: Performed By: #### L IPID, CMP ####[facility] [address] [place] [id number] Anisa Gomez Urea nitrogen/Creatinine [Mass ratio] 14.4 mg/mg Normal [facility] Comment on above: Performed By: #### L IPID, CMP ####[facility] [address] [address]Dr. Anisa Gomez UA RANDOM W/MICROSCOPICon BACTERIA NONE SEEN Normal NONE SEEN [facility] Comment on above: Performed By: #### U AMIC #### [facility] [address] [place] [address] Dr. Anisa Gomez Bilirubin Ql (U) Negative Normal NEGATIVE [facility] Comment on above: Performed By: #### U AMIC #### [facility] [address] [place] [address] Dr. Anisa Gomez CAST NONE SEEN Normal NONE SEEN [facility] Comment on above: Performed By: #### U AMIC #### [facility] [address] [place] [address] Dr. Anisa Gomez Clarity (U) CLEAR Normal CLEAR [facility] Comment on above: Performed By: #### U AMIC #### [facility] [address] [address] [address] Anisa Gomez Color (U) YELLOW Normal YELLOW [facility] Comment on above: Performed By: #### U AMIC #### [facility] [address] [place] [address] Dr. Anisa Gomez Crystals LM Nom (Urine sed) NONE SEEN Normal NONE SEEN [facility] Comment on above: Performed By: #### U AMIC #### [facility] [address] [place] [address] Dr. Anisa Gomez Epithelial cells LM Ql (Urine sed) RARE Normal NONE SEEN /RARE [facility] Comment on above: Performed By: #### U AMIC #### [facility] [address] [place] [address] Dr. Anisa Gomez Glucose Ql (U) Negative Normal NEGATIVE [facility] Comment on above: Performed By: #### U AMIC #### [facility] [address] [place] [address] Dr. Anisa Gomez Hemoglobin Ql (U) Negative Normal NEGATIVE [facility] Comment on above: Performed By: #### U AMIC #### [facility] [address] [place] [address] Dr. Anisa Gomez Ketones Ql (U) Negative Normal NEGATIVE [facility] Comment on above: Performed By: #### U AMIC #### [facility] [address] [place] [address] Dr. Anisa Gomez LEUKOCYTES Negative Normal NEGATIVE [facility] Comment on above: Performed By: #### U AMIC #### [facility] [address] [place] [address] Dr. Anisa Gomez MUCOUS NONE SEEN Normal NONE SEEN [facility] Comment on above: Performed By: #### U AMIC #### [facility] [address] [place] [address] Dr. Anisa Gomez Nitrite Ql (U) Negative Normal NEGATIVE [facility] Comment on above: Performed By: #### U AMIC #### [facility] [address] [place] [address] Dr. Anisa Gomez pH (U) 7.0 [pH] Normal 5-9 [facility] Comment on above: Performed By: #### U AMIC #### [facility] [address] [place] [address] Dr. Anisa Gomez RBC 0-2 Normal 0-2 [facility] Comment on above: Performed By: #### U AMIC #### [facility] [address] [place] [address] Dr. Anisa Gomez SPEC GRAVITY 1.010 Normal 1.005-<=1. 025 [facility] Comment on above: Performed By: #### U AMIC #### [facility] [address] [place] [address] Dr. Anisa Gomez UA PROTEIN Negative Normal NEGATIVE/ TRACE [facility] Comment on above: Performed By: #### U AMIC #### [facility] [address] [place] [address] Dr. Anisa Gomez Urobilinogen Qn (U) 0.2 {Agustin'U}/dL Normal 0.2 - 1. 0 [facility] Comment on above: Performed By: #### U AMIC #### [facility] [address] [place], [place] [address] Dr. Anisa Gomez WBC 0-2 Abnormal NONE SEEN [facility] Comment on above: Performed By: #### U AMIC #### [facility] [address] [place], [place] [address] Dr. Anisa Gomez Vital Signs Date Time Vital Sign Value Performing Clinician Facility 12-30-2023 09:35-0400 Body height 157.48 cm MD Shaikh Horan Work Phone: [facility] 12-30-2023 09:35-0400 Body mass index (BMI) [Ratio] 27.4 kg/m2 MD Shaikh Horan Work Phone: [facility] 12-30-2023 09:35-0400 Body temperature 97.3 [degF] MD Shaikh Horan Work Phone: [facility] 12-30-2023 09:35-0400 Body weight 68.03 kg MD Shaikh Horan Work Phone: [facility] 12-30-2023 09:35-0400 Diastolic blood pressure 50 mm[Hg] MD Shaikh Horan Work Phone: [facility] 12-30-2023 09:35-0400 Heart rate 106 /min MD Shaikh Horan Work Phone: [facility] 12-30-2023 09:35-0400 Respiratory rate 18 /min MD Shaikh Horan Work Phone: [facility] 12-30-2023 09:35-0400 SaO2% (BldA) [Mass fraction] 85 % MD Shaikh Horan Work Phone: [facility] 12-30-2023 09:35-0400 Systolic blood pressure 76 mm[Hg] MD Shaikh Horan Work Phone: [facility] 12-27-2023 15:46-0400 Diastolic blood pressure 57 mm[Hg] MD Shaikh Horan Work Phone: [facility] 12-27-2023 15:46-0400 Heart rate 65 /min MD Shaikh Horna Work Phone: [facility] 12-27-2023 15:46-0400 Respiratory rate 20 /min MD Shaikh Horan Work Phone: [facility] 12-27-2023 15:46-0400 Systolic blood pressure 112 mm[Hg] MD Shaikh Horan Work Phone: [facility] 12-27-2023 14:59-0400 Inhaled oxygen flow rate 2 L/min MD Shaikh Horan Work Phone: [facility] 12-27-2023 14:59-0400 SaO2% (BldA) [Mass fraction] 92 % MD Shaikh Horan Work Phone: [facility] 12-27-2023 11:20-0400 Body temperature 97.7 [degF] MD Shaikh Horan Work Phone: [facility] 12-27-2023 10:48-0400 Body height 157.48 cm MD Shaikh Horan Work Phone: [facility] 12-27-2023 10:48-0400 Body weight 70.8 kg MD Shaikh Horan Work Phone: [facility] 03-25-2023 10:00-0400 Body height 157.48 cm Nigel Valladares Other [facility] Other 03-25-2023 10:00-0400 Body mass index (BMI) [Ratio] 27.43 kg/m2 Nigel Valladares Other [facility] Other 03-25-2023 10:00-0400 Body temperature 97.2 [degF] Nigel Jacquelyn Other [facility] Other 03-25-2023 10:00-0400 Body weight 68.04 kg Nigel Jacquelyn Other [facility] Other 03-25-2023 10:00-0400 Diastolic blood pressure 82 mm[Hg] Nigel Valladares Other [facility] Other 03-25-2023 10:00-0400 SaO2% (BldA) [Mass fraction] 91 % Nigel Jacquelyn Other [facility] Other 03-25-2023 10:00-0400 Systolic blood pressure 158 mm[Hg] Nigel Jacquelyn Other [facility] Other 02-09-2023 11:00-0400 Body height 157.48 cm Cherelle Bautista Other [facility] Other 02-09-2023 11:00-0400 Body mass index (BMI) [Ratio] 27.43 kg/m2 Cherelle Bautista Other [facility] Other 02-09-2023 11:00-0400 Body temperature 97.6 [degF] Cherelle Bautista Other [facility] Other 02-09-2023 11:00-0400 Body weight 68.04 kg Cherelle Bautista Other [facility] Other 07-31-2023 11:00-0400 Diastolic blood pressure 74 mm[Hg] Cherelle Bautista Other [facility] Other 02-09-2023 11:00-0400 SaO2% (BldA) [Mass fraction] 92 % Cherelle Bautista Other [facility] Other 02-09-2023 11:00-0400 Systolic blood pressure 122 mm[Hg] Cherelle Bautista Other [facility] Other 12-24-2022 10:00-0400 Diastolic blood pressure 86 mm[Hg] Brigette Esparzametz [facility] 12-24-2022 10:00-0400 Mean blood pressure 106 mm[Hg] Brigette Lianet [facility] 12-24-2022 10:00-0400 Systolic blood pressure 146 mm[Hg] Brigette Lianet [facility] 12-24-2022 09:57-0400 Blood Pressure Location Brigette Lianet [facility] 12-24-2022 09:57-0400 Body temperature 97.52 [degF] Brigette Lianet [facility] 12-24-2022 09:57-0400 Diastolic blood pressure 82 mm[Hg] Brigette Lianet [facility] 12-24-2022 09:57-0400 Heart rate 86 /min Brigette Lianet [facility] 12-24-2022 09:57-0400 Systolic blood pressure 150 mm[Hg] Brigette Lianet [facility] Encounters Encounter Date Encounter Type Care Provider Facility Start: 01-04-2024 End: 01-04-2024 ambulatory SHAIKH AUNG Not Available Start: 12-30-2023 End: 12-30-2023 Patient encounter procedure MD Shaikh Horan Work Phone: [facility] Vascular Surgery Work Phone: Start: 12-30-2023 End: 12-30-2023 ambulatory MD Shaikh Horan Work Phone: [facility] Work Phone: Start: 12-27-2023 End: 12-27-2023 Emergency department patient visit MD Shaikh Horan Work Phone: [facility] Work Phone: Start: 11-09-2023 End: 11-09-2023 ambulatory SHAIKH AUNG Not Available Start: 10-12-2023 End: 10-12-2023 ambulatory RO AUNG Not Available Start: 08-20-2023 Orders Only Shaikh Aung FARFAN Work Phone: [facility] Comment on above: RLS (restless legs s yndrome) (Primary Dx); Moderate COPD (chronic obstructive pulmonary disease) ([facility]) Start: 07-09-2023 Patient encounter procedure Shaikh Aung FARFAN Work Phone: [facility] Start: 07-09-2023 End: 07-09-2023 ambulatory SHAIKH AUNG Not Available Start: 03-25-2023 Office outpatient vi sit 15 minutes Nigel Valladares [facility] Vascular Surgery Start: 03-25-2023 End: 03-25-2023 ambulatory Cherelle Bautista [facility] Other Start: 02-09-2023 End: 02-09-2023 ambulatory Cherelle Bautista Other [facility] Other Start: 02-09-2023 [facility] visit new patient Cherelle grissom [facility] V[facility] Surgery Start: 01-07-2023 End: 01-08-2023 ambulatory Brigette Annette Lianet Facility:[facility] Start: 01-07-2023 End: 01-07-2023 Patient encounter procedure Brigette A Lianet [facility] Start: 01-01-2023 End: 01-02-2023 ambulatory Brigette A Lianet Facility:[facility] Start: 01-01-2023 End: 01-01-2023 Patient encounter procedure Brigette A Lianet [facility] Start: 12-29-2022 End: 12-30-2022 ambulatory Brigetteanju Esparzametz Facility:[facility] Start: 12-29-2022 End: 12-29-2022 Patient encounter procedure Brigette A Lianet [facility] Start: 12-24-2022 End: 12-25-2022 ambulatory Brigette A Lianet Facility:[facility] Start: 12-24-2022 End: 12-25-2022 ambulatory SHAIKH AUNG Facility:[facility] Start: 12-24-2022 End: 12-24-2022 Patient encounter procedure Brigette Annette Lianet [facility] Start: 12-24-2022 End: 02-19-2023 Pre-admission assessment Jorge MERCEDES [facility] Start: 12-24-2022 End: 12-24-2022 Patient encounter procedure Brigette Annette Lianet [facility] Start: 12-12-2022 ambulatory SHAIKH EPID Facility: [facility] Start: 11-11-2022 End: 11-11-2022 ambulatory SHAIKH Anju CHOWDARYD Facility:[facility] Start: 10-27-2022 End: 10-28-2022 ambulatory LEIGHDIANA THOMPSON . Facility:[facility] Start: 09-01-2022 End: 09-02-[address] ARMANDO RIVERA . Facility:[facility] Start: 08-11-2022 End: 08-12-2022 ambulatory Armando RIVERA Facility:[facility] Start: 07-24-2022 End: 07-25-2022 ambulatory SHAIKH Anju FARobertoWAD Facility:[facility] Start: 07-14-2022 ambulatory RO H FAWWAD Facilit y:[facility] Start: 07-09-2022 End: 07-10-2022 ambulatory RO H FAWWAD Facility:[facility] Start: 07-04-2022 ambulatory RO H FAWWAD Facilit y:[facility] Start: 06-09-2022 End: 06-09-2022 Patient encounter procedure Armando RIVERA [facility] Start: 05-07-2022 End: 05-08-2022 ambulatory SHAIKH Anju CHOWDARYD Facility:[facility] Procedures Date Procedure Procedure Detail Performing Clinician Start: 12-30-2023 US scan of aorta MD Reynaldo Horan Work Phone: Start: 12-27-2023 Screening for occult blood in feces MD Shaikh Horan Work Phone: Start: 12-27-2023 Urine culture MD Shaikh Horan Work Phone: Start: 12-27-2023 Antibody screen Bernardino Gifford Comment on above: Result Comment: PERF ORMED BY: [facility] [address] [place] [address] PATHOLOGIST [employer] WORKER JENNIFER ALANIZ M.D. Start: 12-27-2023 CT angiography of thorax MD Shaikh Horan Work Phone: Start: 12-27-2023 Plain chest X-ray MD Janett Horan Work Phone: Start: 07-03-2022 Mammography Shaikh Kendra flowers MD Work Phone: Start: 07-13-1989 Introduction of tens ion free vaginal tape Brigette Cerratoz Cholecystectomy Brigette Magallon saad Hysterectomy Brigette Martini Rotator cuff includi ng muscles and tendons (body structure) Brigette Martini Plan of Treatment Date Care Activity Detail Author Start: 04-12-2026 Screening for malign ant neoplasm of colon [facility] Start: 07-09-2024 Medicare Annual Well ness (AWV) Medicare Annual Wellness (AWV) [facility] Start: 01-10-2024 Influenza vaccination Influenz a Vaccine (#1) [facility] Comment on above: Postponed from 03/13 (Patient Refused) Start: 12-27-2023 Bacteria identified in Blood by Culture [facility] Start: 12-27-2023 Bacteria identified in Urine by Culture [facility] Start: 12-27-2023 Blood culture for bacteria, including anaerobic screen Blood Culture [facility] Start: 10-08-2023 End: 10-08-2023 Patient encounter procedure 10/08/2023 2:00 PM EDT Office Visit [facility] [address] [place] [id number] Shaikh Horan MD [address] [place] [id number] [facility] Start: 07-03-2023 Screening for malign ant neoplasm of breast Mammogram [facility] Start: 1950 Screening for malign ant neoplasm of colon [facility] Patient Education Dealing with L ow Blood Pressure from the Drugs You Take [facility] Work Phone: Patient referral [facility] Work Phone: [place] Thoracic and abdominal aorta [facility] Immunizations Immunization Date Immunization Notes Care Provider Fa cilifatmata 07-09-2022 pneumococcal 20-ananya nt conjugate vaccine Brigette Martini [facility] 07-03-2022 pneumococcal conjuga te vaccine, 13 valent Brigette Martini [facility] Payers Date Payer Category Payer Private Health Insurance [id number] 2023 Private Health Insurance [id number] 2023 Medicare [id number] 2022 Medicare [id number] 2022 Unknown [employer] D [employer] [id number] 2022-Present [address] [place] [address] [id number] 2020 Unknown [id number] Self-pay 1952 Unknown [id number] 2.16.840.1.871202.3.579.2 .593 1952 Unknown [id number] 2.16.840.1.827613.3.579.2 .593 1952 Unknown [id number] 2.16.840.1.792015.3.579.2 .593 1952 Unknown [id number] 2.16.840.1.979441.3.579.2 .593 1952 Unknown [id number] 2.16.840.1.588269.3.579.2 .593 1952 Unknown [id number] 2.16.840.1.108441.3.579.2 .593 1952 Unknown [id number] 2.16.840.1.206698.3.579.2 .593 1952 Unknown [id number] 2.16.840.1.463900.3.579.2 .593 1952 Unknown [id number] 2.16.840.1.390816.3.579.2 .727 1952 Unknown [id number] 2.16.840.1.239917.3.579.2 .727 1952 Unknown [id number] 2.16.840.1.336774.3.579.2 .727 1952 Unknown [id number] 2.16.840.1.380594.3.579.2 .727 1952 Unknown [id number] 2.16.840.1.143735.3.579.2 .727 1952 Unknown [id number] 2.16.840.1.398416.3.579.2 .727 1952 Unknown [id number] 2.16.840.1.071880.3.579.2 .727 1952 Unknown [id number] 2.16.840.1.700262.3.579.2 .1259 1952 Unknown [id number] 2.16.840.1.887921.3.579.2 .1259 1952 Unknown [id number] 2.16.840.1.001814.3.579.2 .1259 1952 Unknown [id number] 2.16.840.1.531458.3.579.2 .1259 Unknown [id number] 2.16.840.1.524490.3.579.2 .531 Unknown [id number] 2.16.840.1.103062.3.579.2 .531 Unknown [id number] 2.16.840.1.784997.3.579.2 .531 Social History Date Type Detail Facility Tobacco smoking status [facility] [employer] Start: 07-09-2023 Sex Assigned At Female F [facility] Start: 12-24-2022 Tobacco smoking status Heavy t obacco smoker (finding) [facility] Tobacco smoking status Never [facility] Start: 07-09-2023 Tobacco smoking stat [facility] Smokes tobacco daily [facility] History of tobacco use Cigarette Smoker [facility] Start: 07-09-2023 Cigarettes smoked current (pack per day) - Reported 1 [facility] Start: 07-09-2023 Tobacco use and exposure Smokeless tobacco non-user [facility] Start: 07-09-2023 Alcohol intake Lifetime non-d meghan (finding) [facility] Start: 1950 Sex Assigned At Not on file [facility] Start: 1950 Sex Assigned At Female F [facility] Start: 12-27-2023 Tobacco smoking stat [facility] Smoker (finding) [facility] Functional Status Date Assessment Result Facility 12-24-2022 Functional Status N/A [facility] Clinical Notes 06-09-2022 to 03-25-2023 Note Date & Type Note Facility 03-25-2023 Evaluation note Encounter Date Diagnosis Assessment Notes Mar, Stenosis of carotid artery, unspecified laterality (ICD-10 - I65.29) This patient has had a prior left carotid surgery 11 years ago. I did review the carotid duplex results with her today. There is no indication for any recurrent stenoses. I will see her back in 2 years I did recommend smoking cessation. She states that she is trying. All her questions were addressed she understands agrees the plan. [facility] Other 07-31-2023 Evaluation note* Encounter Date Diagnosis Assessment Notes Treatment Notes Treatment Clinical Notes Jan, Abdominal aortic aneurysm (AAA) without rupture, unspecified part (ICD-10 - I71.40) We reviewed her abdominal CT imaging from outside facility at the [place] which shows AAA 3.4 cm in greatest diameter. Her risk factors for AAA growth include her daily smoking. We reviewed the AAA handout page by page and all questions were addressed. We will continue to follow her along with routine surveillance testing and obtain repeat duplex studies in our office in 1 year. Depending on size of AAA next year in our office, we will consider 2-year follow-up thereafter. She understands that her smoking does increase the possibility of faster than normal growth. She understands normal growth rate of AAA is about 3 mm/year. She verbalizes understanding of all discussion, agrees with plan, and denies any questions. Jan, Carotid stenosis, left (ICD-10 - I65.22) Patient has had previous stroke and a left carotid endarterectomy in the past. She has not had any and follow-up per her reports. We will obtain carotid duplex studies in our office and continue annual surveillance testing is recommended per SVS guidelines. She remains asymptomatic of her carotid occlusive disease and on good medical therapy. Jan, Current smoker (ICD-10 - F17.200) We reviewed the health risks associated with tobacco smoking. She understands her risk and is unmotivated to quit. [facility] Other 06-14-2023 Hospital Discharge instructions Patient Education 12/24/2022 10:14:32 Abdominal Pain, Adult Abdominal Pain, Adult Pain in the abdomen (abdominal pain) can be caused by many things. Often, abdominal pain is not serious and it gets better with no treatment or by being treated at home. However, sometimes abdominal pain is serious. Your health care provider will ask questions about your medical history and do a physical exam to try to determine the cause of your abdominal pain. Follow these instructions at home: Medicines Take zqxp-yfw-jakmtzn and prescription medicines only as told by your health care provider. Do not take a laxative unless told by your health care provider. General instructions Watch your condition for any changes. Drink enough fluid to keep your urine pale yellow. Keep all follow-up visits as told by your health care provider. This is important. Contact a health care provider if: Your abdominal pain changes or gets worse. You are not hungry or you lose weight without trying. You are constipated or have diarrhea for more than 2 3 days. You have pain when you urinate or have a bowel movement. Your abdominal pain wakes you up at night. Your pain gets worse with meals, after eating, or with certain foods. You are vomiting and cannot keep anything down. You have a fever. You have blood in your urine. Get help right away if: Your pain does not go away as soon as your health care provider told you to expect. You cannot stop vomiting. Your pain is only in areas of the abdomen, such as the right side or the left lower portion of the abdomen. Pain on the right side could be caused by appendicitis. You have bloody or black stools, or stools that look like tar. You have severe pain, cramping, or bloating in your abdomen. You have signs of dehydration, such as: ?Dark urine, very little urine, or no urine. ?Cracked lips. ?Dry mouth. ?Sunken eyes. ?Sleepiness. ?Weakness. You have trouble breathing or chest pain. Summary Often, abdominal pain is not serious and it gets better with no treatment or by being treated at home. However, sometimes abdominal pain is serious. Watch your condition for any changes. Take cbxc-hpo-jkdgomt and prescription medicines only as told by your health care provider. Contact a health care provider if your abdominal pain changes or gets worse. Get help right away if you have severe pain, cramping, or bloating in your abdomen. This information is not intended to replace advice given to you by your health care provider. Make sure you discuss any questions you have with your health care provider. Document Revised: 08/17/2020 Document Reviewed: 11/07/2019 [employer] Patient Education 2022 [employer] System[employer]. Follow Up Care 12/15/2022 11:25:23 With:Brigette Martini CNP Address: When:1 month [facility] 01-30-2023 NoteChief Complaint Referral *Incontinence HPI Staff Evaluation requested by Dr Shaikh Horan due to mixed incontinence, Hx of bladder prolapse, flank pain and S/P pain. Pt is a new pt, never before seen in our office. Does have Hx of TVT Sling 30 yrs ago in [place]. BL flank pain for 1yr. Denies Hx of Kidney Stones. Burning with urination for the past couple of months. Denies Hx of UTI's. Denies Hx of visible blood. Occasional leaking with urgency for 6m. Does not wear protection. Denies Hx of Bladder Medication. PVR today 26 cc. History of Present Illness Tests reviewed: reviewed UA, referral records. I have reviewed the previous health record information and history for this patient from Dr. Diaz. I have reviewed and verified the staff HPI to be accurate for this encounter. There have been no associated fever, chills, flank pain, or blood in the urine. Denies any urinary infections since last encounter. Review of Systems PHQ Score Initial Depression Screen Score: 0 ROS - Provider Constitutional: denies weight loss, denies hot flashes. Eyes: denies eye problems. Gastrointestinal: denies nausea, denies vomiting. Cardiovascular: denies chest pain or angina. Integumentary: no dryness Musculoskeletal: denies musculoskeletal symptoms. ENMT: denies otolaryngeal symptoms. Respiratory: no shortness of breath. Heme/Lymph: denies easy bleeding tendency, denies easy bruising tendency. Psychiatric: no confusion, no anxiety. Genitourinary: See HPI. Physical Exam Vitals & Measurements HR: 68(Peripheral) RR: 16 BP: 137/80 HT: 63 in HT: 159 cm WT: 64 kg WT: 140.8 lb BMI: 25.32 General Appearance: alert , no acute distress, well nourished, well developed female. Head: normocephalic . Eyes: normal orbit and globe. ENMT: normal examination of external ears. Chest: Lungs CTA, respirations non labored . Cardiovascular: regular rate and rhythm. Abdomen: soft, non distended, no tenderness, no mass or organomegaly, no hernia. Genitourinary: bladder nonpalpable, no flank tenderness. Lymph Nodes: unremarkable palpation of the cervical area. Skin: warm, dry, no bruising. Psychiatric: cooperative, affect appropriate for age, normal judgement, euthymic mood. Assessment/Plan 1. Mixed incontinence (N39.46: Mixed incontinence) New patient referred by Dr. Shaikh Horan due to mixed incontinence, hx of bladder prolapse, flank pain and S/P pain. Does have hx of TVT Sling(possible bladder mesh also) 30 yrs ago in [place]. Occasional leaking with urgency ongoing for 6 mos. Does not wear protection, sometimes has to change underwear. Denies hx of bladder medication. PVR today 26 cc. Urge > stress. Mild RANDY. Ongoing for 1 year, worsening. Will schedule cysto with pelvic exam and possible UD. The risks and benefits for cystoscopy have been discussed. The risks include bleeding, infection, and irritation of the bladder and urinary channel, among others. The patient, after being informed of procedural details and after questions have been answered, wishes to proceed. Full informed consent has been obtained. Will order Local anesthesia. 2. Bilateral flank pain (R10.9: Unspecified abdominal pain) Ongoing for 1 yr. Denies hx of kidney stones. Constant. uncertain etiology 3. Dysuria (R30.0: Dysuria) Mild burning with urination for the past couple of months. Denies hx of UTIs. Denies hx of visible blood. UA today negative for blood and infection. 4. Infrequent urination (R39.198: Other difficulties with micturition) Pt voids typically only 3 times per day. Educated the pt on the importance of voiding more frequently. Occasional straining with urination. -start timed voids q2-3hrs Follow-up With When Contact Information TRISTA FARFAN, Armando Mckay, [facility] [address], [place] [address]- Additional Instructions: schedule cysto with possible UD Patient Education Kegel Kathie Chatman, personally scribed for Dr. Rivera on 08/11/2022 14:11:00. . Documentation recorded by the scribe, Kathie Riggs, accurately reflects the services(s) I performed and decisions made by me. Authenticated by Dr. Rivera on 08/11/2022 14:13:27. Problem List/Past Medical History Ongoing Bilateral flank pain Dysuria Heart disease History of prolapse of bladder Hyperlipidemia Hypertension Infrequent urination Mixed incontinence Personal history of transient ischemic attack Historical No qualifying data Procedure/Surgical History Introduction of tension free vaginal tape (1989), Cholecystectomy, Hysterectomy, Rotator cuff. Medications Albuterol (Eqv-ProAir HFA) 90 mcg/inh inhalation aerosol atorvastatin 80 mg Tab, Oral, Daily gabapentin 300 mg Cap, Oral, TID traZODONE 100 mg Tab, Oral Allergies No Known Allergies No Known Medication Allergies Social History Tobacco 10 or more cigarettes (1/2 pack or mo (more content not included)...[facility]Result Comment: Electronically Signed By: Armando RIVERA MD\.br\Date and Time Signed: 08/11/22 14:13 EST\.br\Electronically Co-Signed By: Kathie Riggs\.br\Date and Time Co-Signed: 08/11/22 14:11 EST 06-09-2022 Hospital Discharge instructions Patient Education 06/09/2022 08:13:08 Overactive Bladder, Adult Overactive Bladder, Adult Overactive bladder refers to a condition in which a person has a sudden need to pass urine. The person may leak urine if he or she cannot get to the bathroom fast enough (urinary incontinence). A person with this condition may also wake up several times in the night to go to the bathroom. Overactive bladder is associated with poor nerve signals between your bladder and your brain. Your bladder may get the signal to empty before it is full. You may also have very sensitive muscles thatmake your bladder squeeze too soon. These symptoms might interfere with daily work or social activities. What are the causes? This condition may be associated with or caused by: Urinary tract infection. Infection of nearby tissues, such as the prostate. Prostate enlargement. Surgery on the uterus or urethra. Bladder stones, inflammation, or tumors. Drinking too much caffeine or alcohol. Certain medicines, especially medicines that get rid of extra fluid in the body (diuretics). Muscle or nerve weakness, especially from: ?A spinal cord injury. ?Stroke. ?Multiple sclerosis. ?Parkinson's disease. Diabetes. Constipation. What increases the risk? You may be at greater risk for overactive bladder if you: Are an older adult. Smoke. Are going through menopause. Have prostate problems. Have a neurological disease, such as stroke, dementia, Parkinson's disease, or multiple sclerosis (MS). Eat or drink things that irritate the bladder. These include alcohol, spicy food, and caffeine. Are overweight or obese. What are the signs or symptoms? Symptoms of this condition include: Sudden, strong urge to urinate. Leaking urine. Urinating 8 or more times a day. Waking up to urinate 2 or more times a night. How is this diagnosed? Your health care provider may suspect overactive bladder based on your symptoms. He or she will diagnose this condition by: A physical exam and medical history. Blood or urine tests. You might need bladder or urine tests to help determine what is causing your overactive bladder. You might also need to see a health care provider who specializes in urinary tract problems (urologist). How is this treated? Treatment for overactive bladder depends on the cause of your condition and whether it is mild or severe. You can also make lifestyle changes at home. Options include: Bladder training. This may include: ?Learning to control the urge to urinate by following a schedule that directs you to urinate at regular intervals (timed voiding). ?Doing Kegel exercises to strengthen your pelvic floor muscles, which support your bladder. Toning these muscles can help you control urination, even if your bladder muscles are overactive. Special devices. This may include: ?Biofeedback, which uses sensors to help you become aware of your body's signals. ?Electrical stimulation, which uses electrodes placed inside the body (implanted) or outside the body. These electrodes send gentle pulses of electricity to strengthen the nerves or muscles that control the bladder. ?Women may use a plastic device that fits into the vagina and supports the bladder (pessary). Medicines. ?Antibiotics to treat bladder infection. ?Antispasmodics to stop the bladder from releasing urine at the wrong time. ?Tricyclic antidepressants to relax bladder muscles. ?Injections of botulinum toxin type A directly into the bladder tissue to relax bladder muscles. Lifestyle changes. This may include: ?Weight loss. Talk to your health care provider about weight loss methods that would work best for you. ?Diet changes. This may include reducing how much alcohol and caffeine you consume, or drinking fluids at different times of the day. ?Not smoking. Do not use any products that contain nicotine or tobacco, such as cigarettes and e-cigarettes. If you need help quitting, ask your health care provider. Surgery. ?A device may be implanted to help manage the nerve signals that control urination. ?An electrode may be implanted to stimulate electrical signals in the bladder. ?A procedure may be done to change the shape of the bladder. This is done only in very severe cases. Follow these instructions at home: Lifestyle Make any diet or lifestyle changes that are recommended by your health care provider. These may include: ?Drinking less fluid or drinking fluids at different times of the day. ?Cutting down on caffeine or alcohol. ?Doing Kegel exercises. ?Losing weight if needed. ?Eating a healthy and balanced diet to prevent constipation. This may include: ?Eating foods that are high in fiber, such as fresh fruits and vegetables, whole grains, and beans. ?Limiting foods that are high in fat and processed sugars, such as fried and sweet foods. General instructions Take ntpy-siy-rxivzli and prescription medicines only as told by your health care provider. If you were prescribed an antibiotic medicine, take it as told by your health care provider. Do notstop taking the antibiotic even if you start to feel better. Use any implants or pessary as told by your health care provider. If needed, wear pads to absorb urine leakage. Keep a journal or log to track how much and when you drink and when you feel the need to urinate. This will help your health care provider monitor your condition. Keep all follow-up visits as told by your health care provider. This is important. Contact a health care provider if: You have a fever. Your symptoms do not get better with treatment. Your pain and discomfort get worse. You have more frequent urges to urinate. Get help right away if: You are not able to control your bladder. Summary Overactive bladder refers to a condition in which a person has a sudden need to pass urine. Several conditions may lead to an overactive bladder. Treatment for overactive bladder depends on the cause and severity of your condition. Follow your health care provider's instructions about lifestyle changes, doing Kegel exercises, keeping a journal, and taking medicines. This information is not intended to replace advice given to you by your health care provider. Make sure you discuss any questions you have with your health care provider. Document Released: 04/25/2010 Document Revised: 10/20/2019 Document Reviewed: 07/15/2018 [employer] Patient Education 2020 GCD Systeme. Follow Up Care 05/09/2022 11:00:12 With:TRISTA FARFAN, Armando Mckay, URL Address: [facility] [address] , [place] [address]- When: Unknown [facility] evaluation + Plan note No data available for this section [facility] evaluation + Plan note Future Appointments Appointment Date:12/29/2022 10:30:00 AM Scheduled Provider: Location:[facility] Appointment Type:US Abdominal/Pelvis (FT) Appointment Date:02/18/2023 08:15:00 AM Scheduled Provider: Location:[facility] Appointment Type:Surgery FT Future Scheduled Tests Radiology* US Abdomen, Limited 12/29/22 [facility] Evaluation + Plan note Future Appointments Appointment Date:02/18/2023 08:15:00 AM Scheduled Provider: Location:[facility] Future Appointments Appointment Date:01/07/2023 11:00:00 AM Scheduled Provider: Location:.[facility] Appointment Type:CT Abdomen (FT) Appointment Date:02/18/2023 08:15:00 AM Scheduled Provider: Location:[facility] Appointment Type:Surgery FT Future Scheduled Tests Radiology* CT Abdomen w/ Contrast [facility]07/23 [facility] Diagnosis RLS (restless legs syndrome)- Primary Restless legs syndrome (RLS) Moderate COPD (chronic obstructive pulmonary disease) ([facility]) documented in this encounter [facility] HealthcareEvaluation noteNo assessment information availableFirMercy Health St. [facility] Work Phone: Evaluation note* Diagnosis Onset Date Resolution Status Abdominal aortic aneurysm (A AA) 3.0 cm to 5.0 cm in diameter in female acute [facility] Work Phone: [facility] general Narrative - Reported* Type Description Date Medical History GERD Medical History hypercholesterolemia Surgical History cholecystectomy Surgical History tubal ligation Surgical History shoulder surgery Hospitalization History see above [facility] Other [facility] Narrative - Reported* Type Description Date Medical History GERD Medical History hypercholesterolemia Medical History Carotid stenosis Surgical History cholecystectomy Surgical History tubal ligation Surgical History shoulder surgery Hospitalization History see above [facility] Other Hospital Discharge instructions No data available for this section [facility] Additional Instructions Stop your blood pressure medicine. Follow-up with your doctor without fail for reevaluation of blood pressure and left lung mass.[facility] Work Phone: Progress note No data available for this section [facility] Summary Purpose Family History No Family History Records Found Relationship Condition Age at Onset Recorded Date/T violette father Unknown Not Specified Unknown Advance Directives No Advanced Directives Records Found Advance Directive Response Recorded Date/ Time Advance Directives No March 4:03pm Chief Complaint and Reason for Visit Chief Complaint low bp Chief Complaint low bp I71.4 7 MONTH F/U AAA, ABD US Chief Complaint low bp I71.4 7 MONTH F/U AAA, ABD US Reason for Visit Abdominal aortic ane urysm (AAA) 3.0 cm to 5.0 cm in diameter in female Additional Source Comments INFORMATION SOURCE (unrecogn ized section and content) DATE CREATED AUTHOR 11/24/2022 [facility] DATE CREATED AUTHOR AUTHOR'S ORGANIZ ATION 06/25/2023 [facility] DATE CREATED AUTHOR AUTHOR'S ORGANIZ ATION 01/05/2024 [facility] EPIC DATE CREATED AUTHOR AUTHOR'S ORGANIZ ATION 01/11/2024 [facility] Patient Care team informatio n (unrecognized section and content) Team Status: Active Member Role Status Dates Shaikh Aung MD Primary Care Provider Active Team Status: Inactive Member Role Status Dates Shaikh Anug MD Primary Care Provider Active Start: December 27, 2023 End: December 27, 2023 Bernardino Gifford MD Emergency Provider Active St art: December 27, 2023 End: December 27, 2023 Sensor Technician Relationship Specialty Start Date End Date Shaikh Horan MD PCP - General Internal Medicine 01/26/23 Shaikh Horan MD [address] [place] [address] PCP - Devoted 04/12/23 Personnel Name: SHAIKH HORAN Address: Address: [address] [place] [address] [place] REASON FOR VISIT (unrecogniz ed section and content) Referred by Dr. Horan for 3 .4cm AAA; CTA done at [facility] U/S 930 AM Goals (unrecognized section and content) Goals may be documented in a n alternate section FOR RECORDS PERTAINING TO PATIENTS WHO ARE OR HAVE BEEN ENROLLED IN A CHEMICAL DEPENDENCY/SUBSTANCEABUSE PROGRAM, SOME INFORMATION MAY BE OMITTED. This clinical summary was aggregated from multiple sources. Caution should be exercised in using it in the provision of clinical care. This summary normalizes information from multiple sources, and as a consequence, information in this document may materially change the coding, format and clinical context of patient data. In addition, data may be omitted in some cases. CLINICAL DECISIONS SHOULD BE BASED ON THE PRIMARY CLINICAL RECORDS. [facility] [employer] provides no warranty or guarantee of the accuracy or completeness of information in this document.
--- NOTE | 2024-02-12 14:00 | CA_ITS ---
Patient Name: BHUPENDRA MIRANDA MR#: [id number] : 1950 Exam Date: 02/12/2024 Ordering Doctor: Shaikh Eddie Horan . ECHOCARDIOGRAM REPORT PROCEDURE: CA ECHO DOPPLER COMPLETE INDICATIONS: Syncope and collapse COMPARISON: None. DESCRIPTION: COMPLETE ECHOCARDIOGRAM Real-time transthoracic echocardiography with 2D, M-mode, spectral and color flow Doppler performed. QUALITY: Technical quality was good. LEFT VENTRICLE: Normal chamber size. Proximal septal hypertrophy (sigmoid septum). Mild concentric hypertrophy. Normal systolic function. LV EF: Normal left ventricular ejection fraction, (60%). DIASTOLIC: Normal diastolic function. ATRIAL SEPTUM: Visually appears intact. LEFT ATRIUM: Normal chamber size. RIGHT ATRIUM: Normal chamber size. RIGHT VENTRICLE: Normal chamber size. Normal right ventricular systolic function. TRICUSPID VALVE: Normal mobility and thickness. No stenosis with trivial regurgitation. No evidence of pulmonary hypertension. RVSP 18 mmHg MITRAL VALVE: Normal mobility and thickness. No evidence of mitral valve stenosis. There is no mitral annular calcification. No mitral regurgitation. AORTIC VALVE: Normal trileaflet appearance. Mildly calcified aortic valve. Normal leaflet mobility. No evidence of aortic valve stenosis. No aortic regurgitation. AORTIC ROOT: Normal diameter and appearance. Ascending aorta is normal in size. PULMONIC VALVE: Normal thickness and mobility. No stenosis. No regurgitation. PERICARDIUM: Trivial pericardial effusion. Anterior pericardial fat pad. IVC: Collapses with inspirations. PLEURA: CONCLUSION: 1. Mild concentric left ventricular hypertrophy with normal systolic function. LVEF is estimated at 60%. 2. Normal right ventricular size and systolic function. 3. Normal diastolic function. 4. No significant valvular dysfunction. 5. Normal right-sided pressures. Adult Echocardiography Procedure Report Left Ventricle LVEDD (3.7 - 5.6 cm): 3.59 cm LVESD (2.2 - 4.0 cm): 2.62 cm LVIVS thickness (0.6 - 1.2 cm): 1.29 cm LVPW thickness (0.5 - 1.0 cm): 1.12 cm e': 0.04 m/s E - e': 13.23 LVOT Max Gradient: 2.15 mm[Hg] LVOT Area (cm2): 0.73 m/s Peak Velocity (LVOT): 0.73 m/s Mean Velocity (LVOT): 0.49 m/s LVOT Diameter 2.11 cm Left Atrium LA Volume Index (2D A2C): 17.39 ml/m2 Left Atrium Systolic Dimension: 3.59 cm Mitral Valve MV E to A Ratio: 0.68 Mitral Valve A-Wave Peak Velocity: 0.77 m/s Mitral Valve E-Wave Peak Velocity: 0.52 m/s Right Ventricle Aorta AO Root Diam: 2.69 cm Ascending Ao Diam: 2.56 cm Aortic Valve AoV Area (Peak Kristofer): 2.78 cm2, 2.78 cm2 AoV Area (VTI): 2.83 cm2, 2.83 cm2 Peak Velocity(Antegrade Flow): 0.92 m/s Peak Gradient(Antegrade Flow): 3.40 mm[Hg] Mean Velocity(Antegrade Flow): 0.61 m/s Mean Gradient(Antegrade Flow): 1.71 mm[Hg] Velocity Time Integral: 17.10 cm Tricuspid Valve Peak Velocity (Regurgitant Flow): 1.97 m/s Pulmonic Valve Mean Gradient: 0.76 mm[Hg] Mean Velocity: 0.40 m/s Peak Velocity: 0.61 m/s, 0.62 m/s Peak Gradient: 1.56 mm[Hg], 1.49 mm[Hg] Right Atrium Right Atrium Systolic Pressure: 18.46 ml, 18.46 ml Dictated by: Long Laguerre M.D. on 02/12/2024 at 17:19 Approved by: Long Laguerre M.D. on 02/12/2024 at 17:23
== END 2024-02-12 13:20 | disposition home or self-care (01) ==
LOC: CARD 13:19
PROVIDERS: PCP Internal Medicine; Visit Provider Internal Medicine
DX: R55 Syncope and collapse (principal)
CPT/HCPCS: 93242; 93306

== ENCOUNTER 2024-03-01 07:24 | Outpatient (RCR) | payer MEDICARE, SELFPAY | END 2024-03-12 23:59 | disposition home or self-care (01) | LOC: HEMC 07:24 | PROVIDERS: PCP Internal Medicine; Visit Provider Internal Medicine Hematology & Oncology | DX: R91.1 Solitary pulmonary nodule (principal); D72.829 Elevated white blood cell count, unspecified | CPT/HCPCS: G0463 ==

== ENCOUNTER 2024-03-01 09:29 | Outpatient (OUT) | payer MEDICARE, SELFPAY ==
[2024-03-01 10:07] LABS: Basophils Absolute Auto 0.1 10^3/uL (0.0-0.1); Basophils Percent Auto 0.9 % (0.2-2.0); Eosinophils Absolute Auto 0.1 10^3/uL (0.0-0.7); Eosinophils Percent Auto 1.1 % (0.9-7.0); Hematocrit 43.8 % (36.0-48.0); Hemoglobin 14.2 g/dL (12.0-16.0); Immature Granulocytes Abs Auto 0.03 10^3/uL (0.00-0.03); Immature Granulocytes Pct Auto 0.3 % (0.0-0.5); Lymphocytes Absolute Auto 2.6 10^3/uL (1.2-3.8); Mean Corpuscular HGB Conc 32.4 g/dL (29.9-35.2); Mean Corpuscular Hemoglobin 28.8 pg (26.7-34.0); Mean Corpuscular Volume 88.8 fL (81.0-99.0); Mean Platelet Volume 9.9 fL (9.5-13.5); Monocytes Percent Auto 8.5 % (1.7-12.0); Neutrophils Absolute Auto 7.5 10^3/uL (1.4-6.5); Neutrophils Percent Auto 66.2 % (43.0-75.0); Platelet Count 331 10^3/uL (150-450); Red Blood Count 4.93 10^6/uL (4.20-5.40); Red Cell Distribution Width 14.9 % (11.0-15.0); White Blood Count 11.2 10^3/uL (4.0-11.0)
[2024-03-01 10:17] LABS: Estimated Average Glucose 131 mg/dL; Glycohemoglobin A1C 6.2 % (4.5-6.2)
[2024-03-01 10:43] LABS: Alanine Aminotransferase 26 U/L (14-59); Albumin Globulin Ratio 0.9; Albumin Level 3.2 g/dL (3.4-5.0); Alkaline Phosphatase 100 U/L (46-116); Anion Gap 11.1; Aspartate Amino Transferase 16 U/L (15-37); BUN Creatinine Ratio 14.4; Bilirubin Total 0.5 mg/dL (0.2-1.0); Calcium 9.1 mg/dL (8.5-10.1); Chloride 104 mmol/L (98-107); Cholesterol 237 mg/dL (<=200); Estimated GFR (African America >60 (>=60); Estimated GFR (Non-African Ame >60 (>=60); Globulin 3.5 g/dL; Glucose 103 mg/dL (74-106); HDL Cholesterol 60 mg/dL (40-60); Potassium 4.1 mmol/L (3.5-5.1); Sodium 140 mmol/L (136-145); Total Protein 6.7 g/dL (6.4-8.2); Triglycerides 225 mg/dL (<=150)
== END 2024-03-01 09:30 | disposition home or self-care (01) ==
LOC: LAB 09:32
PROVIDERS: PCP Internal Medicine
DX: Z00.00 Encounter for general adult medical examination without abnormal findings (principal); I10 Essential (primary) hypertension; E78.5 Hyperlipidemia, unspecified; Z86.73 Personal history of transient ischemic attack (TIA), and cerebral infarction without residual deficits; J44.9 Chronic obstructive pulmonary disease, unspecified
CPT/HCPCS: 36415; 80053; 80061; 83036; 84443; 85025

== ENCOUNTER 2024-03-02 12:04 | Outpatient (OUT) | payer MEDICARE, SELFPAY ==
--- OUTSIDE RECORDS SUMMARY | 2024-03-02 12:25 | XMS_ITS | CCD ---
Author Organization [facility] Care Team Providers Care Wood Polisher Name Role Phone FAWWAD, RO H Admitting Unavailable FAWWAD, RO H Attending Unavailable FAWWAD, RO H Primary Care Unavailable FAWWAD, RO H Consulting Unavailable FAWWAD, RO H Admitting Unavailable FAWWAD, RO H Attending Unavailable FAWWAD, RO H Primary Care Unavailable DR CLAUDIO CERVANTES Consulting Unavailable FAWWAD, RO H Consulting Unavailable FAWWAD, RO H Admitting Unavailable FAWWAD, RO H Attending Unavailable FAWWAD, RO H Primary Care Unavailable DR CLAUDIO CERVANTES Consulting Unavailable FAWWAD, RO H Consulting Unavailable SAMSA ., LEIGH Admitting Unavailable SAMSA .LEIGH Attending Unavailable FAWWAD, RO H Primary Care Unavailable SAMSA .LEIGH Consulting Unavailable RASTEGAR, RADHA Consulting Unavailable FAWWAD, RO H Admitting Unavailable FAWWAD, RO H Attending Unavailable FAWWAD, RO H Primary Care Unavailable FAWWAD, RO H Primary Care Unavailable AMANDA PINEDO Admitting Unavailable AMANDA PINEDO Attending Unavailable TIAGO THOMSON Consulting UnavailAMANDA Penn Consulting Unavailable LAYNE HO Consulting Unavailable ANDRES GUZMAN Consulting Unavailable DR JERMAIN EASLEY Admitting Unavailable TRISTA ., DR ROBERTS Attending Unavailable FAWWAD, RO H Primary Care Unavailable DR JERMAIN EASLEY Consulting Unavailable FAWWAD, RO H Admitting Unavailable FAWWAD, RO H Attending Unavailable FAWWAD, RO H Primary Care Unavailable FAWWAD, RO Primary Care Physician Cherelle Bautista Unavailable Nigel Valladares Unavailable [phone] Shaikh Horan MD Primary Care Provider Shaikh Horan MD Unavailable MD Jia Horan Primary Care Provider MD Bernardino Gifford Emergency Provider [phone] VONDA Bautista Attending Provider SHAIKH HOARN Attending Unavailable SHAIKH HORAN Attending Unavailable SHAIKH HORAN Attending Unavailable SHAIKH HORAN Attending Unavailable CHRIS BERMAN Attending UnavailBernardino Marino Attending Unavailable Bernardino Gifford Admitting Unavailable Shaikh Horan Primary Care Unavailable Cherelle Bautista Admitting Unavailable Cherelle Bautista Attending Unavailable Shaikh Horan Primary Care Unavailable Cherelle Bautista Admitting Unavailable Cherelle Bautista Attending Unavailable SHAIKH HORAN Referring Unavailable Arden De Leon Attending Unavailable Allergies Allergy Classification Reported Allergen(s) Allergy Type Date of Onset Reaction(s) Facility (1 source) No Known Medication Allergies; 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: [No Known Medication Allergies] Propensity to adverse reactions (disorder) [facility] Repository Medications Current Medications Medication Drug Class(es) Dates Sig (Normalized) Sig (Original) 30 ACTUAT fluticasone furoate 0.2 MG/ACTUAT / umeclidinium 0.0625 MG/ACTUAT / vilanterol 0.025 MG/ACTUAT Dry Powder Inhaler [Trelegy] (2 sources) Trelegy Ellipta 200-62.5-25 MCG/ACT Inhalation for 30 Days Active [id number] 200 actuat albuterol 0.09 mg/actuat metered dose [...] Act thelma atorvastatin 80 mg oral tablet (14 sources) HMG-CoA Reductase Inhibitor Start: 12-27-2023 take 1 tablet by mouth once daily Atorvastatin Active 80 MG PO Daily December 27, 2023 12:00am FreeTextSig: Oral; Note: Source Status: Taking; Qty: 90 Tablet; Provider: Jacquelyn Manning ( ) Start: 06-09-2022 take 1 tablet by edelmira th in the morning atorvastatin (Lipitor) 80 MG tablet Take 1 tablet by mouth in the morning. 0 07/02/2023 Active dicyclomine hydrochloride 20 mg oral tablet (5 [...] 20 MG TAKE 1 TABLET BY M OUTH THREE TIMES DAILY Oral for 30 Days Active esomeprazole 40 mg delayed release oral capsule (8 sources) Proton Pump Inhibitor Start: 12-24-2022 End: 03-24-2023 take 1 capsule by mouth once daily esomeprazole 40 mg Cap-EC 40 mg = 1 cap(s), Oral, Daily, # 90 cap(s), Refills(s) 0, [facility], cm, 12/24/22 10:00:00 EDT, Height/Length Dosing, [...] day(s), # 90 tab(s), Refills(s) 0, Pharmacy: [facility], 159, cm, 12/24/22 10:00:00 EDT, Height/Length Dosing, [...] ) folic acid 1 mg oral tablet (8 sources) Start: 02-18-2023 take 1 tablet by mouth once daily Folic Acid Active 1 MG PO Daily December 27, 2023 12:00am FreeTextSig: TAKE 1 TABLET BY MOUTH DAILY Oral; Note: Source Status: Taking; Refills: 0; Qty: 30 Each; Provider: Lianet Machuca Start: 01-06-2023 End: 02-05-2023 take 1 tablet by mouth once daily folic acid 1 mg Tab 1 mg = 1 tab(s), Oral, Daily, X 30 day(s), # 30 tab(s), Refills(s) 0, Pharmacy: [id number], 159, cm, 12/24/22 10:00:00 EDT, Height/Length Dosing, 67.6, kg, 12/24/22 10:00:00 EDT, Weight Dosing Start Date: 01/06/23 Stop Date: 02/05/23 Status: Ordered gabapentin 300 mg oral capsule (12 sources) Anti-epileptic Agent Start: 12-27-2023 take 300 mg by mouth three times daily Gabapentin Active 300 MG PO Three times daily December 27, 2023 12:00am Start: 06-09-2022 take 1 capsule by [facility] in the morning, then take 1 capsule by mouth in the evening, then take 1 capsule by mouth at bedtime gabapentin (Neurontin) 300 MG capsule Indications: Other polyneuropathy Take 1 capsule (300 mg) by mouth in the morning and 1 capsule (300 mg) in the evening and 1 capsule (300 mg) before bedtime. 90 capsule 2 08/04/2023 Active nicotine 4 mg oral lozenge (2 sources) [...] DAILY Oral for 30 Days Active Miralax (7 sources) Osmotic Laxative Start: 12-24-2022 MiraLax Refil [...] Active traZODone hydrochloride 100 mg oral tablet (14 sources) Serotonin Reuptake Inhibitor Start: 12-27-2023 take 1 tablet by mouth once daily Trazodone Active 100 MG PO Daily December 27, 2023 12:00am FreeTextSig: TAKE 1 TABLET BY MOUTH DAILY Oral; Note: Source Status: Taking; Refills: 0; Qty: 30 Each; Provider: Aung Ro Start: 06-09-2022 take 1 tablet by edelmira th at bedtime traZODone (Desyrel) 100 MG tablet Take 1 tablet by mouth at bedtime 0 07/02/2023 Active varenicline (2 sources) Partial Cholinergic Nicotinic Agonist [...] Albuterol (Eqv-ProAir HFA) 90 mcg/inh inhalation aerosol (7 sources) Start: 08-11-2022 take 2 puff(s) by [...] 11/02/2023 Active ciprofloxacin 500 mg oral tablet (7 sources) Quinolone Antimicrobial Start: 08-14-2022 take 1 tablet by mouth once daily Cipro 500 mg Tab 500 mg = 1 tab(s), Oral, Daily, Take 1 tablet the day before the procedure and 1 tablet after the procedure, # 2 tab(s), Refills(s) 0, Pharmacy: [id number], 159, cm, 08/11/22 13:12:00 EST, Height/Length Dosing, 64, kg, 08/11/22 13:12:00 EST, Weight Dosing Start Date: 08/14/22 Status: Ordered polyethylene glycol 3350 230087 mg / potassium chloride 1480 mg / sodium bicarbonate 5720 mg / sodium chloride 69263 mg powder for oral solution (7 sources) Osmotic Laxative Start: 12-24-2022 NuLYTELY Fuentes oral powder for reconstitution See Instructions, 1 EA, Refill(s) 0, Prior to colonoscopy., [id number], 159, cm, 12/24/22 10:00:00 EDT, Height/Length Dosing, 67.6, kg, 12/24/22 10:00:00 EDT, Weight Dosing Start Date: 12/24/22 Status: Ordered Problems Active Problems Problem Classification Problem Date Documented Date Episodic/Chronic Abdominal pain (16 sources) Unspecified abdominal pain; 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: [Upper abdominal pain] Onset: 11-13-2022 Episodic Aortic; peripheral; and visceral artery aneurysms (3 sources) Aneurysm of infrarenal abdominal aorta ; 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: [Infrarenal abdominal aortic aneurysm, without rupture] Onset: 07-09-2023 07-09-2023 Chronic Chronic obstructive pulmonary disease and bronchiectasis (3 sources) Centrilobular emphysema; 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: [Moderate chronic obstructive pulmonary disease] Onset: 11-02-2022 08-20-2023 Chronic Disorders of lipid metabolism (14 sources) Hyperlipidemia; 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: [Hyperlipidemia, unspecified] Onset: 05-07-2022 06-09-2022 Chronic Esophageal disorders (9 sources) Gastroesophageal reflux disease without esophagitis; 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: [Gastro-esophageal reflux disease without esophagitis] Onset: 12-24-2022 Chronic Essential hypertension (11 sources) Hypertensive disorder; 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: [Essential (primary) hypertension] Onset: 09-03-2022 06-09-2022 Chronic Genitourinary symptoms and ill-defined conditions (13 sources) Mixed incontinence; 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: [Incontinence] Onset: 06-09-2022 [...] artery] Chronic Other aftercare (1 source) Other swimmer (current) drug therapy; 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: [OTH [facility] CURRENT DRUG THERAPY] Onset: 11-13-2022 Episodic Other aftercare (1 source) long-term (current) use of aspirin; 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: [[employer] CURRENT USE OF ASPIRIN] Onset: 11-13-2022 Episodic Other and ill-defined heart disease (8 sources) Heart disease 06-09-2022 Chronic Other and unspecified benign neoplasm (8 sources) History of polyp of colon; 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: [...] disorders Onset: 07-09-2023 07-09-2023 Other circulatory disease (7 sources) History of transient ischemic attack Onset: 05-11-2022 08-11-2022 Episodic Unclassified (1 source) Abdominal aortic aneurysm (AAA) without rupture, unspecified part I71.40 Results Test Name Value Interpretation Reference Range Facility aortaon 12-30-2023 aorta [facility] [address] [place] [address] Ultrasound Report Signed Patient: Bhupendra Rubi MR#: [id number] 306 : 1950 Acct:[id number] Age/Sex: 73 / F ADM Date: 12/30/23 Loc: EMILIA Room: Type: [facility] Attending Dr: Cherelle FERRARI Ordering Provider: Cherelle Bautista APRN Date of [...] Adam Keller M.D.12/30/2023 9:53 AM Dictation Location: [place] [address] Tech: Yakelindaniela Gibson Transcribed By: JOSE MIGUEL 12/30/23 0953 Dictated By: Adam Keller MD 12/30/23 0949 Signed By: 12/30/23 0953 Normal [facility] ABO/Rh Retypeon 12-27-2023 ABO/RH Recheck Result Positive Normal [facility] Comment on above: Result Comment: PERF ORMED BY: [facility] [address] [place] [address] PATHOLOGIST REFRIGERATION PERSON JENNIFER ALANIZ M.D. Activated partial thrombopla stin time (aPTT) in platelet poor plasma by coagulation aOrdered By: Bernardino Gifford on 12-27-2023 aPTT Coag (PPP) [Time] 24.6 s 25.1-36.5 [facility] Comment on above: A hematocrit value g reater than 55% may lead to inaccurate results in coagulation testing. Patients having hematocrit values >55% require a special collection tube for coagulation studies. Please contact the laboratory at [phone] for redraw instructions. Alanine aminotransferase [En zymatic activity/volume] in Serum or PlasmaOrdered By: Bernardino Gifford on 12-27-2023 ALT [Catalytic activity/Vol] 10 U/L Normal 7-52 [facility] Comment on above: Performed By: #### C MP, CBC, HS TROP, CK #### [address] Albumin [Mass/volume] in Ser um or Plasma by Bromocresol green (BCG) dye binding methoOrdered By: Bernardino Gifford on 12-27-2023 Albumin BCG dye [Mass/Vol] 4.0 g/dL 3.5-5.7 [facility] Alkaline phosphatase [Enzyma tic activity/volume] in Serum or PlasmaOrdered By: Bernardino Gifford on 12-27-2023 ALP [Catalytic activity/Vol] 105 U/L High 34-104 [facility] Comment on above: Performed By: #### C MP, CBC, HS TROP, CK #### [address] Arterial Blood Gason 024 ABG Base Excess -2.4 mmol/L Normal -3.0-3.0 [facility] Comment on above: Performed By: #### C MP, CBC, HS TROP, CK #### [address] ABG Frac Inspired O2 32 % Normal [facility] Comment on above: Performed By: #### C MP, CBC, HS TROP, CK #### [address] ABG Liter Flow 3 Normal [facility] Comment on above: Performed By: #### C MP, CBC, HS TROP, CK #### [address] ABG Oxygen Content 7.5 mmol/L Normal 6.6-9.7 [facility] Comment on above: Performed By: #### C MP, CBC, HS TROP, CK #### [address] ABG Oxygen Saturation 95.5 % Normal 95.0-100.0 [facility] Comment on above: Performed By: #### C MP, CBC, HS TROP, CK #### [address] ABG PCO2 46.7 mm[Hg] High 35.0-45.0 [facility] Comment on above: Performed By: #### C MP, CBC, HS TROP, CK #### [address] ABG PH 7.33 Low 7.35-7.45 [facility] Comment on above: Performed By: #### C MP, CBC, HS TROP, CK #### [address] ABG PO2 84.0 mm[Hg] Normal 80.0-100.0 [facility] Comment on above: Performed By: #### C MP, CBC, HS TROP, CK #### [address] Oxygen Device Nasal Cannula Normal [facility] Comment on above: Performed By: #### C MP, CBC, HS TROP, CK #### [address] Respiratory Critical Normal [facility] Comment on above: Result Comment: Crit ical Value called on: 12/27/2023 at 11:36 PERFORMED BY: [place] [address] PATHOLOGIST REFRIGERATION PERSON JENNIFER ALANIZ M.D. Performed By: #### C MP, CBC, HS TROP, CK #### [address] VBG Draw Site Left Radial Normal [facility] Comment on above: Performed By: #### C MP, CBC, HS TROP, CK #### [address] Arterial Blood GasOrdered By : Bernardino Gifford on 12-27-2023 CO2 [Moles/Vol] 25.3 mmol/L Normal 23.0-27.0 [facility] Comment on above: Performed By: #### C MP, CBC, HS TROP, CK #### [address] HCO3 (Bld) [Moles/Vol] 23.8 mmol/L Normal 23.0-29.0 [facility] Comment on above: Performed By: #### C MP, CBC, HS TROP, CK #### [address] Aspartate aminotransferase [ Enzymatic activity/volume] in Serum or PlasmaOrdered By: Bernardino Gifford on 12-27-2023 AST [Catalytic activity/Vol] 10 U/L Low 13-39 [facility] Comment on above: Performed By: #### C MP, CBC, HS TROP, CK #### [address] Automated basophil %Ordered By: Bernardino Gifford on 12-27-2023 Basophils/100 WBC (Bld) 0.6 % Normal . [facility] Comment on above: Performed By: #### C MP, CBC, HS TROP, CK #### [address] Automated basophil countOrde red By: Bernardino Gifford on 12-27-2023 Basophils (Bld) [#/Vol] 0.1 10*3/uL Normal 0.0-0.2 [facility] Comment on above: Result Comment: PERF ORMED BY: [place] [address] PATHOLOGIST REFRIGERATION PERSON JENNIFER ALANIZ M.D. Performed By: #### C MP, CBC, HS TROP, CK #### [address] Automated blood monocyte cou ntOrdered By: Bernardino Gifford on 12-27-2023 Monocytes (Bld) [#/Vol] 1.3 10*3/uL High 0.0-0.8 [facility] Comment on above: Performed By: #### C MP, CBC, HS TROP, CK #### [address] Automated eosinophil %Ordere d By: Bernardino Gifford on 12-27-2023 Eosinophils/100 WBC (Bld) 0.6 % Normal . [facility] Comment on above: Performed By: #### C MP, CBC, HS TROP, CK #### [facility] [address] [place] [address] Automated eosinophil countOr dered By: Bernardino Gifford on 12-27-2023 Eosinophils (Bld) [#/Vol] 0.1 10*3/uL Normal 0.0-0.45 [facility] Comment on above: Performed By: #### C MP, CBC, HS TROP, CK #### [facility] [address] [place] [address] Automated monocyte %Ordered By: Bernardino Gifford on 12-27-2023 Monocytes/100 WBC (Bld) 9.8 % Normal . [facility] Comment on above: Performed By: #### C MP, CBC, HS TROP, CK #### [facility] [address] [place] [address] Automated neutrophil %Ordere d By: Bernardino Gifford on 12-27-2023 Neutrophils/100 WBC (Bld) 61.6 % Normal . [facility] Comment on above: Performed By: #### C MP, CBC, HS TROP, CK #### [address] BNP ser/plasOrdered By: Urbano Gifford on 12-27-2023 Natriuretic peptide B (Bld) [Mass/Vol] 32.0 pg/mL Normal 5-100 [facility] Comment on above: Result Comment: PERF ORMED BY: [place] [address] PATHOLOGIST REFRIGERATION PERSON JENNIFER ALANIZ M.D. Performed By: #### C MP, CBC, HS TROP, CK #### [address] Bacteria [Presence] in Urine sediment by Light microscopyOrdered By: Bernardino Gifford on 12-27-2023 Bacteria LM Ql (Urine sed) 1+ [HPF] None Seen [facility] Comment on above: Microscopic results may be affected due to low specimen volume. Bilirubin Test strip Ql (U)O rdered By: Bernardino Gifford on 12-27-2023 Bilirubin Ql (U) Negative Negative [facility] Bilirubin.total [Mass/volume ] in Serum or PlasmaOrdered By: Bernardino Gifford on 12-27-2023 Bilirubin [Mass/Vol] 0.3 mg/dL Normal 0.3-1.0 [facility] Comment on above: Performed By: #### C MP, CBC, HS TROP, CK #### [facility] [address] [place] [address] Blood Cultureon 12-27-2023 Bacteria identified Cx Nom (Bld) NO GROWTH 5 DAYS PERFORMED BY: [place] [address] PATHOLOGIST REFRIGERATION PERSON JENNIFER ALANIZ M.D. Normal [facility] Comment on above: Performed By: #### C MP, CBC, HS TROP, CK #### [address] Bacteria identified Cx Nom (Bld) NO GROWTH 5 DAYS PERFORMED BY: [place] [address] PATHOLOGIST REFRIGERATION PERSON JENNIFER ALANIZ M.D. Normal [facility] Comment on above: Performed By: #### C MP, CBC, HS TROP, CK #### [address] angio chest PE protocolon 12-27-2023 CT angio chest PE protocol [facility] [place] [address] CT Scan Report Signed Patient: Bhupendra Rubi MR#: [id number] 306 : 1950 Acct:[id number] Age/Sex: 73 / F ADM Date: 12/27/23 Loc: ER Room: Type: [facility] ER Attending Dr: Copies to: [...] Adam Berger M.D.12/27/2023 12:14 PM Dictation Location: [place] [address] Transcribed By: [facility] 12/27/23 1214 Dictated By: Adam Berger DO 12/27/23 1210 Signed By: 12/27/23 1214 Normal [facility] Calcium [Mass/volume] in Ser um or PlasmaOrdered By: Bernardino Gifford on 12-27-2023 Calcium [Mass/Vol] 9.3 mg/dL Normal 8.6-10.3 [facility] Comment on above: Performed By: #### C MP, CBC, HS TROP, CK #### [facility] [address] [place] [address] [place] Carbon dioxide, total [Moles /volume] in Serum or PlasmaOrdered By: Bernardino Gifford on 12-27-2023 CO2 [Moles/Vol] 26.9 mmol/L Normal 21.0-31.0 [facility] Comment on above: Performed By: #### C MP, CBC, HS TROP, CK #### [facility] [address] [place] [address] [place] Chloride [Moles/volume] in S [place] or PlasmaOrdered By: Bernardino Gifford on 12-27-2023 Chloride [Moles/Vol] 104 mmol/L Normal 98-107 [facility] Comment on above: Performed By: #### C MP, CBC, HS TROP, CK #### [address] Color of Urine by AutoOrdere d By: Bernardino Gifford on 12-27-2023 Color (U) Yellow Normal Yellow [facility] Comment on above: Order Comment: Name Collection Type:: Clean-Voided Midstream Performed By: #### A DDONUAPLUS, CUU #### [address] Complete Blood Count Auto Di ffon 12-27-2023 Mean Corpuscular HGB Conc 33.0 g/dL Normal 32.0-35.0 [facility] Comment on above: Performed By: #### C MP, CBC, HS TROP, CK #### [address] Monocytes/100 WBC (Bld) 19.53 % Normal 0.00-20.00 [facility] Comment on above: Performed By: #### C MP, CBC, HS TROP, CK #### [address] NRBC% 0.1 /100{WBC} Normal 0-0.5 [facility] Comment on above: Performed By: #### C MP, CBC, HS TROP, CK #### [address] Comprehensive Metabolic Pane agata 12-27-2023 Albumin [Mass/Vol] 4.0 g/dL Normal 3.5-5.7 [facility] Comment on above: Performed By: #### C MP, CBC, HS TROP, CK #### [address] Creatinine Clr Calc Pharmacy 50.59 Normal [facility] Comment on above: Result Comment: PERF ORMED BY: [place] [address] PATHOLOGIST REFRIGERATION PERSON JENNIFER ALANIZ M.D. Performed By: #### C MP, CBC, HS TROP, CK #### [address] [place] [address] [place] GFR/1.73 sq M.predicted MDRD (S/P/Bld) [Vol rate/Area] mL/min/{1.73_m2} Normal [facility] Comment on above: Performed By: #### C MP, CBC, HS TROP, CK #### [facility] [address] Creatine kinase [Enzymatic a ctivity/volume] in Serum or PlasmaOrdered By: Bernardino Gifford on 12-27-2023 CK [Catalytic activity/Vol] 41 U/L Normal 30-223 [facility] Comment on above: Performed By: #### C MP, CBC, HS TROP, CK #### [facility] [address] Creatinine [Mass/volume] in Serum or PlasmaOrdered By: Bernardino Gifford on 12-27-2023 Creatinine [Mass/Vol] 0.94 mg/dL Normal 0.60-1.20 [facility] Comment on above: Performed By: #### C MP, CBC, HS TROP, CK #### [place] [id number] [facility]imer High Sensitivityon 0 12-27-2023 D-Dimer High Sensitivity 480 ng/mL High 0-243 [facility] Comment on above: Result Comment: [...] coagulation studies. Please contact the laboratory at [phone] for redraw instructions. PERFORMED BY: [address] [address] PATHOLOGIST REFRIGERATION PERSON JENNIFER ALANIZ M.D. Performed By: #### C MP, CBC, HS TROP, CK #### [facility] [address] [place] [address] [place] Dipstick and Microscopicon 0 12-27-2023 Bacteria,Urine 1+ High None Seen [facility] Comment on above: Order Comment: Name Collection Type:: Clean-Voided Midstream Result Comment: Micr oscopic results may be affected due to low specimen volume. PERFORMED BY: [place] [address] PATHOLOGIST REFRIGERATION PERSON JENNIFER ALANIZ M.D. Performed By: #### A DDONUAPLUS, CUU #### [place] [address] [place] Bilirubin,Urine Negative Normal Negative [facility] Comment on above: Order Comment: Name Collection Type:: Clean-Voided Midstream Performed By: #### A DDONUAPLUS, CUU #### [place] [address] [place] Glucose Ql (U) Normal Normal Normal [facility] Comment on above: Order Comment: Name Collection Type:: Clean-Voided Midstream Performed By: #### A DDONUAPLUS, CUU #### [place] [address] [place] Nitrite,Urine Negative Normal Negative [facility] Comment on above: Order Comment: Name Collection Type:: Clean-Voided Midstream Performed By: #### A DDONUAPLUS, CUU #### [place] [address] [place] Occult Blood,Urine Negative Normal Negative [facility] Comment on above: Order Comment: Name Collection Type:: Clean-Voided Midstream Result Comment: PERF ORMED BY: [place] [address] PATHOLOGIST REFRIGERATION PERSON JENNIFER ALANIZ M.D. Performed By: #### A DDONUAPLUS, CUU #### [place] [address] [place] Protein,Urine Negative Normal Negative [facility] Comment on above: Order Comment: Name Collection Type:: Clean-Voided Midstream Performed By: #### A DDONUAPLUS, CUU #### [address] RBC,Urine None Seen Normal 0-4 [facility] Comment on above: Order Comment: Name Collection Type:: Clean-Voided Midstream Result Comment: Micr oscopic results may be affected due to low specimen volume. Performed By: #### A DDONUAPLUS, CUU #### [address] Specificy [place],Urine 1.043 High 1.00 1-1.03 0 [facility] Comment on above: Order Comment: Name Collection Type:: Clean-Voided Midstream Performed By: #### A DDONUAPLUS, CUU #### [place] [address] [place] Squamous Epithelial Cell,Urine 5-9 High 0-2 [facility] Comment on above: Order Comment: Name Collection Type:: Clean-Voided Midstream Result Comment: Micr oscopic results may be affected due to low specimen volume. Performed By: #### A DDONUAPLUS, CUU #### [address] Urobilinogen,Urine Normal Normal Normal [facility] Comment on above: Order Comment: Name Collection Type:: Clean-Voided Midstream Performed By: #### A DDONUAPLUS, CUU #### [place] [address] [place] WBC,Urine 5-9 High 0-4 [facility] Comment on above: Order Comment: Name Collection Type:: Clean-Voided Midstream Result Comment: Micr oscopic results may be affected due to low specimen volume. Performed By: #### A DDONUAPLUS, CUU #### [address] ECG 12 lead ECGon 12-27-2023 ECG 12 lead ECG [facility] [place] [address] [place] [address] Electrocardiograph Report Signed Patient: Bhupendra Rubi MR#: [id number] 306 : 1950 Acct:[id number] Age/Sex: 73 / F ADM Date: 12/27/23 Loc: ER Room: Type: [facility] ER Attending Dr: Ordering Provider: Bernardino Gifford [...] By Bernardino Gifford MD 12/11 Normal [facility] Epithelial cells.squamous [# /area] in Urine sediment by Microscopy high power fieldOrdered By: Bernardino Gifford on 12-27-2023 Epithelial cells.squamous LM.HPF (Urine sed) [#/Area] 5-9 [HPF] 0-2 [facility] Comment on above: Microscopic results may be affected due to low specimen volume. Erythrocyte distribution wid th [Ratio] by Automated countOrdered By: Bernardino Gifford on 12-27-2023 Erythrocyte distribution width (RBC) [Ratio] 15.6 % High 11.9-15.3 [facility] Comment on above: Performed By: #### C MP, CBC, HS TROP, CK #### [facility] [address] [place] [address] [place] Erythrocytes [#/area] in Uri ne sediment by Microscopy high power fieldOrdered By: Bernardino Gifford on 12-27-2023 RBC LM.HPF (Urine sed) [#/Area] None seen [HPF] 0-4 [facility] Comment on above: Microscopic results may be affected due to low specimen volume. Erythrocytes [#/volume] in B lood by Automated countOrdered By: Bernardino Gifford on 12-27-2023 RBC (Bld) [#/Vol] 5.03 10*6/uL High 3.60-5.00 [facility] Comment on above: Performed By: #### C MP, CBC, HS TROP, CK #### [facility] [address] Fecal occult blood detection by immunochemistryOrdered By: Bernardino Gifford on 12-27-2023 Hemoglobin.gastrointesti nal Ql (Stl) [facility] Fibrin D-dimer [Presence] in Platelet poor plasma by Latex agglutinationOrdered By: Bernardino Gifford on 12-27-2023 Fibrin D-dimer LA Ql (PPP) 480 ng/mL 0-243 [facility] Comment on above: The reference range for [...] coagulation studies. Please contact the laboratory at [phone] for redraw instructions. Glucose [Mass/volume] in Ser um or PlasmaOrdered By: Bernardino Gifford on 12-27-2023 Glucose [Mass/Vol] 120 mg/dL High 70-100 [facility] Comment on above: ADA recommended refe rence rangeRandom Glucose Reference Range is dependent on time and content of last meal. Glucose of more than 200 mg/dL in a nonstressed, ambulatory subject supports the diagnosis of Diabetes Mellitus. Result Comment: [place] Glucose Reference Range is dependent on time and content of last meal. Glucose of more than 200 mg/dL in a nonstressed, ambulatory subject supports the diagnosis of Diabetes Mellitus. ADA recommended reference range Performed By: #### C MP, CBC, HS TROP, CK #### [facility] [address] Glucose [Mass/volume] in Uri ne by Test stripOrdered By: Bernardino Gifford on 12-27-2023 Glucose Test strip (U) [Mass/Vol] Normal mg/dL Normal [facility] Hematocrit [Volume Fraction] of Blood by Automated countOrdered By: Bernardino Gifford on 12-27-2023 Hematocrit (Bld) [Volume fraction] 44.0 % Normal 34.0-46.4 [facility] Comment on above: Performed By: #### C MP, CBC, HS TROP, CK #### [facility] [address] [place] [address] Hemoglobin Test strip Ql (U) Ordered By: Bernardino Gifford on 12-27-2023 Hemoglobin Ql (U) Negative Negative [facility] Hemoglobin [Mass/volume] in BloodOrdered By: Bernardino Gifford on 12-27-2023 Hemoglobin (Bld) [Mass/Vol] 14.5 g/dL Normal 11.8-15.4 [facility] Comment on above: Performed By: #### C MP, CBC, HS TROP, CK #### [facility] [address] [place] [address] INR in Platelet poor plasma by Coagulation assayOrdered By: Bernardino Gifford on 12-27-2023 INR Coag (PPP) [Relative time] 1.0 {INR} Normal [facility] Comment on above: INR Therapeutic Rang e [...] C MP, CBC, HS TROP, CK #### [facility] [address] [place] [address] [place] Ketones [Presence] in Urine by Test stripOrdered By: Bernardino Gifford on 12-27-2023 Ketones Ql (U) Negative Normal Negative [facility] Comment on above: Order Comment: Name Collection Type:: Clean-Voided Midstream Performed By: #### A DDONUAPLUS, CUU #### [facility] [address] [place] [address] [place] Lactate [Moles/volume] in Se rum or PlasmaOrdered By: Bernardino Gifford on 12-27-2023 Lactate [Moles/Vol] 1.6 mmol/L Normal 0.5-2.2 [facility] Comment on above: Result Comment: PERF ORMED BY: [place] [address] PATHOLOGIST REFRIGERATION PERSON JENNIFER ALNAIZ M.D. Performed By: #### C MP, CBC, HS TROP, CK #### [place] [address] [place] Leukocyte esterase [Presence ] in Urine by Test stripOrdered By: Bernardino Gifford on 12-27-2023 Leukocyte esterase Test strip Ql (U) 4+ High Negative [facility] Comment on above: Order Comment: Name Collection Type:: Clean-Voided Midstream Performed By: #### A DDONUAPLUS, CUU #### [place] [address] [place] Leukocytes [#/area] in Urine sediment by Microscopy high power fieldOrdered By: Bernardino Gifford on 12-27-2023 WBC LM.HPF (Urine sed) [#/Area] 5-9 [HPF] 0-4 [facility] Comment on above: Microscopic results may be affected due to low specimen volume. Leukocytes [#/volume] correc pilar for nucleated erythrocytes in Blood by Automated counOrdered By: Bernardino Gifford on 12-27-2023 WBC corrected for nucl RBC Auto (Bld) [#/Vol] 13.4 10*3/uL 3.8-11.6 [facility] Leukocytes [#/volume] in Blo od by Automated countOrdered By: Bernardino Gifford on 12-27-2023 WBC (Bld) [#/Vol] 13.4 10*3/uL High 3.8-11.6 [facility] Comment on above: Performed By: #### C MP, CBC, HS TROP, CK #### [facility] [address] Lymphocytes [#/volume] in Bl ood by Automated countOrdered By: Bernardino Gifford on 12-27-2023 Lymphocytes (Bld) [#/Vol] 3.7 10*3/uL Normal 1.00-4.8 [facility] Comment on above: Performed By: #### C MP, CBC, HS TROP, CK #### [address] Lymphocytes/100 leukocytes i n Blood by Automated countOrdered By: Bernardino Gifford on 12-27-2023 Lymphocytes/100 WBC (Bld) 27.4 % Normal . [facility] Comment on above: Performed By: #### C MP, CBC, HS TROP, CK #### [facility] [address] [place] [address] MCH [Entitic mass] by Automa pilar countOrdered By: Bernardino Gifford on 12-27-2023 MCH (RBC) [Entitic mass] 28.9 pg Normal 24.7-34.3 [facility] Comment on above: Performed By: #### C MP, CBC, HS TROP, CK #### [facility] [address] [place] [address] MCHC Auto (RBC) [Mass/Vol]Or dered By: Bernardino Gifford on 12-27-2023 MCHC (RBC) [Mass/Vol] 33.0 g/dL 32.0-35.0 [facility] MCV [Entitic volume] by Auto mated countOrdered By: Bernardino Gifford on 12-27-2023 MCV (RBC) [Entitic vol] 87.6 fL Normal 80-100 [facility] Comment on above: Performed By: #### C MP, CBC, HS TROP, CK #### [address] [place] [address] [facility] Monocyte distribution width [Entitic volume] in Blood by AutomatedOrdered By: Bernardino Gifford on 12-27-2023 Monocyte distribution width Auto (Bld) [Entitic vol] 19.53 % 0.00-20.00 [facility] Neutrophils [#/volume] in Bl ood by Automated countOrdered By: Bernardino Gifford on 12-27-2023 Neutrophils (Bld) [#/Vol] 8.3 10*3/uL High 1.8-7.7 [facility] Comment on above: Performed By: #### C MP, CBC, HS TROP, CK #### [facility] [address] Nitrite Test strip Ql (U)Ord ered By: Bernardino Gifford on 12-27-2023 Nitrite Ql (U) Negative Negative [facility] No Panel InformationOrdered By: Bernardino Gifford on 12-27-2023 Arterial Blood Base Excess -2.4 mmol/L -3.0-3.0 [facility] Arterial Blood Oxygen Content 7.5 mmol/L 6.6-9.7 [facility] Arterial Blood Oxygen Saturation 95.5 % 95.0-100.0 [facility] Arterial Blood Partial Pressure CO2 46.7 mm[Hg] 35.0-45.0 [facility] Arterial Blood Partial Pressure O2 84.0 mm[Hg] 80.0-100.0 [facility] Arterial Blood pH 7.33 7.35-7.45 [facility] Blood Gas Critical Value See comment [facility] Comment on above: Critical Value chaves d on: 12/27/2023 at 11:36 Blood Gas Liter Flow 3 L/min [facility] Blood Gas Sample Site Left radial [facility] FiO2 32 % [facility] Oxygen Delivery Device Nasal cannula [facility] Estimated GFR (CKD-EPI) > 60.0 mL/Min [facility] Creatinine Clearance (Chem 50.59 [facility] Nucleated erythrocytes [Pres ence] in Blood by Automated countOrdered By: Bernardino Gifford on 12-27-2023 Nucleated RBC Auto Ql (Bld) 0.1 /100{WBC} 0-0.5 [facility] Partial Thromboplastin Timeo n 12-27-2023 aPTT Coag (Bld) [Time] 24.6 s Low 25.1-36.5 [facility] Comment on above: Result Comment: A he matocrit value greater than 55% may lead to inaccurate results in coagulation testing. Patients having hematocrit values >55% require a special collection tube for coagulation studies. Please contact the laboratory at [phone] for redraw instructions. Performed By: #### C MP, CBC, HS TROP, CK #### [facility] [address] Platelet mean volume [Entiti c volume] in Blood by Automated countOrdered By: Bernardino Gifford on 12-27-2023 Platelet mean volume (Bld) [Entitic vol] 8.3 fL Normal 6.3-10.7 [facility] Comment on above: Performed By: #### C MP, CBC, HS TROP, CK #### [facility] [address] [place] [address] Platelets [#/volume] in Bloo d by Automated countOrdered By: Bernardino Gifford on 12-27-2023 Platelets (Bld) [#/Vol] 399 10*3/uL Normal 150-450 [facility] Comment on above: Performed By: #### C MP, CBC, HS TROP, CK #### [facility] [address] [place] [address] Potassium [Moles/volume] in Serum or PlasmaOrdered By: Bernardino Gifford on 12-27-2023 Potassium [Moles/Vol] 3.7 mmol/L Normal 3.5-5.1 [facility] Comment on above: Performed By: #### C MP, CBC, HS TROP, CK #### [place] [address] [place] Protein Test strip (U) [Mass /Vol]Ordered By: Bernardino Gifford on 12-27-2023 Protein (U) [Mass/Vol] Negative Negative [facility] Protein [Mass/volume] in Ser um or PlasmaOrdered By: Bernardino Gifford on 12-27-2023 Protein [Mass/Vol] 6.8 g/dL Normal 6.4-8.9 [facility] Comment on above: Performed By: #### C MP, CBC, HS TROP, CK #### [address] Prothrombin time (PT)Ordered By: Bernardino Gifford on 12-27-2023 PT Coag (PPP) [Time] 11.5 s Normal 9.0-12.9 [facility] Comment on above: A hematocrit value g reater than 55% may lead to inaccurate results in coagulation testing. Patients having hematocrit values >55% require a special collection tube for coagulation studies. Please contact the laboratory at [phone] for redraw instructions. Result Comment: A he matocrit value greater than 55% may lead to inaccurate results in coagulation testing. Patients having hematocrit values >55% require a special collection tube for coagulation studies. Please contact the laboratory at [phone] for redraw instructions. Performed By: #### C MP, CBC, HS TROP, CK #### [address] Serum globulin measurement b y calculation (mass/volume)Ordered By: Bernardino Gifford on 12-27-2023 Globulin (S) [Mass/Vol] 2.8 g/dL Normal [facility] Comment on above: Performed By: #### C MP, CBC, HS TROP, CK #### [address] Serum or plasma albumin/glob ulin mass ratioOrdered By: Bernardino Gifford on 12-27-2023 Albumin/Globulin [Mass ratio] 1.4 {ratio} Normal [facility] Comment on above: Performed By: #### C MP, CBC, HS TROP, CK #### [address] Serum or plasma anion gap de terminationOrdered By: Bernardino Gifford on 12-27-2023 Anion gap [Moles/Vol] 12.8 mmol/L Normal 6.0-15.0 [facility] Comment on above: Performed By: #### C MP, CBC, HS TROP, CK #### [place] [address] [place] Sodium [Moles/volume] in Ser um or PlasmaOrdered By: Bernardino Gifford on 12-27-2023 Sodium [Moles/Vol] 140 mmol/L Normal 136-145 [facility] Comment on above: Performed By: #### C MP, CBC, HS TROP, CK #### [facility] [address] [place] [address] Specific gravity Test strip (U) [Rel density]Ordered By: Bernardino Gifford on 12-27-2023 Specific gravity (U) [Rel density] 1.043 1.001-1.03 0 [facility] Stool Occult Blood (Guaiac)o n 12-27-2023 Stool Occult Blood (Guaiac) Occult Blood Negative for Occult Blood by Guaiac Methodology ---- Reference range = Negative PERFORMED BY: [place] [address] PATHOLOGIST REFRIGERATION PERSON JENNIFER AALNIZ M.D. Normal [facility] Comment on above: Performed By: #### O B(GUAIAC) #### [address] Troponin I High Sensitivityo n 12-27-2023 Troponin I High Sensitivity < 2.3 Normal 0.0-15.0 [facility] Comment on above: Result Comment: PERF ORMED BY: [place] [address] PATHOLOGIST REFRIGERATION PERSON JENNIFER ALANIZ M.D. Performed By: #### C MP, CBC, HS TROP, CK #### [address] Troponin I.cardiac [Mass/vol ume] in Serum or Plasma by Detection limit <= 0.01 ng/Ordered By: Bernardino Gifford on 12-27-2023 Troponin I.cardiac DL <= 0.01 ng/mL [Mass/Vol] < 2.3 pg/mL 0.0-15.0 [facility] Type and Screenon 12-27-2023 ABO and Rh group Nom (Bld) Blood group A Rh(D) positive Normal [facility] Urea nitrogen [Mass/volume] in Serum or PlasmaOrdered By: Bernardino Gifford on 12-27-2023 Urea nitrogen [Mass/Vol] 13 mg/dL Normal 7-25 [facility] Comment on above: Performed By: #### C MP, CBC, HS TROP, CK #### [facility] [address] [place] [address] Urine Cultureon 12-27-2023 Bacteria identified Cx Nom (U) 50,000 colonies/ml mixed bacterial skin contaminants 2 Days PERFORMED BY: [place] [address] PATHOLOGIST REFRIGERATION PERSON JENNIFER ALANIZ M.D. Normal [facility] Comment on above: Performed By: #### A DDONUAPLUS, CUU #### [address] Urine appearanceOrdered By: Bernardino Gifford on 12-27-2023 Appearance (U) Cloudy Critically abnormal Clear [facility] Comment on above: Order Comment: Name Collection Type:: Clean-Voided Midstream Performed By: #### A DDONUAPLUS, CUU #### [address] Urine culture routineOrdered By: Bernardino Gifford on 12-27-2023 Bacteria identified Cx Nom (U) 2 Days [facility] Urobilinogen Test strip (U) [Mass/Vol]Ordered By: Bernardino Gifford on 12-27-2023 Urobilinogen (U) [Mass/Vol] Normal mg/dL Normal [facility] XR chest 1V portableon 12-26 XR chest 1V portable [facility] [place] [address] XRay Report Signed Patient: Bhupendra Rubi MR#: [id number] 306 : 1950 Acct:[id number] Age/Sex: 73 / F ADM Date: 12/27/23 Loc: ER Room: Type: REG ER Attending Dr: Copies to: Bernardino Gifford [...] Adam Berger M.D.12/27/2023 12:16 PM Dictation Location: [place] [address] Transcribed By: [facility] 12/27/23 1216 Dictated By: Adam Berger DO 12/27/23 1204 Signed By: 12/27/23 1216 Normal [facility] pH of Urine by Test stripOrd ered By: Bernardino Gifford on 12-27-2023 pH (U) 6.0 [pH] Normal 5.0-9.0 [facility] Comment on above: Order Comment: Name Collection Type:: Clean-Voided Midstream Performed By: #### A DDETTA AGU #### [facility] [address] [place] [id number] [facility] Provider Letteron 06-23-2023 Provider Letter (Inserted Image. Es ble to display) June 23, 2023 BHUPENDRA RUBI [address] [place] [id number] : 1950 Dear Bhupendra, We are reaching out to inform you that Dr. Turner is now approved and credentialed with your insurance. Please call our office at your earliest convenience to schedule the EGD that was recommended at your last visit. Thank you for your prompt attention to this matter. Sincerely, [facility] [phone] Normal [facility] US carotid doppler BIon 09- US carotid doppler BI [facility] [address] [place] [address] [place] [address] Ultrasound Report Signed Patient: Bhupendra Rubi MR#: [id number] 6 : 1950 Acct:[id number] Age/Sex: 72 / U ADM Date: 03/25/23 Loc: [facility] Room: Type: [facility] Attending Dr: Cherelle Bautista [employer] Ordering Provider: Cherelle Bautista APRN Date of [...] Nigel Valladares MD03/25/2023 1:50 PM Dictation Location: [place] [address] Tech: Yakelin Gibson Transcribed By: [facility] 03/25/23 135 Dictated By: Nigel Valladares MD 03/25/231349 Signed By: 03/25/23 135 Normal [facility] CHEMISTRYOrdered By: [employer] SYSTEM on 01-01-2023 Ferritin [Mass/Vol] 20 ng/mL [...] Normal 200 - 370 mg/dL [facility] CHEMISTRYOrdered By: SYSTEM SYSTEM on 12-24-2022 Albumin [Mass/Vol] 4.0 g/dL Normal 3.3 - 5.0 gm/dL [facility] Albumin/Globulin [Mass ratio] 1.1 {ratio} Normal [...] 31 mmol/L Normal 21 - 31 mmol/L [facility] Creatinine [Mass/Vol] 1.0 mg/dL Normal 0.5 - 1.3 mg/dL [facility] GFR/1.73 sq M.predicted among non-blacks MDRD (S/P/Bld) [Vol rate/Area] 61 mL/min/1.73 m2 Normal >=59mL/min /1.73 m2 [facility] Chem S Globulin (S) [Mass/Vol] 3.5 g/dL Normal 1.4 - 4.0 gm/dL [facility] Glucose [Mass/Vol] 100 mg/dL Normal 55 - 199 mg/dL [facility] Potassium [Moles/Vol] 4.3 mmol/L Normal 3.5 - 5.3 mmol/L [facility] Protein [Mass/Vol] 7.5 g/dL Normal 6.0 - 7.8 gm/dL [facility] Sodium [Moles/Vol] 142 mmol/L Normal 135 - 145 mmol/L [facility] Urea nitrogen [Mass/Vol] 12 mg/dL Normal 5 - 21 mg/dL [facility] Urea nitrogen/Creatinine [Mass ratio] 12 mg/mg Normal 10 - 20 [facility] HEMATOLOGYOrdered By: SYSTEM SYSTEM on 12-24-2022 Basophils/100 [...] 89.8 fL Normal 80.0 - 100.0 fL [facility] Platelet mean volume (Bld) [Entitic vol] 8.4 fL Normal 6.4 - 10.8 fL [facility] Platelets (Bld) [#/Vol] 408.0 E9/L Normal 150. 0 - 500.0 E9/L [facility] RBC (Bld) [#/Vol] 5.1 E12/L Normal 4.3 - 5.9 E12/L [facility] WBC corrected for nucl RBC Auto (Bld) [#/Vol] 13.6 E9/L High 4.0 - 11.0 E9/L [facility] CBC AUTO DIFFon 11-11-2022 BASO # 0.1 103/ul Normal 0.0-0.1 [facility] Comment on above: Performed By: #### C BC #### [facility] [address] [place] [address] [address] Anisa Gomez Basophils/100 WBC (Bld) 0.5 % Normal 0.2-2.0 [facility] Comment on above: Performed By: #### C BC #### [facility] [address] [place] [address] [address] Anisa Gomez EO # 0.1 103/ul Normal 0.0-0.7 [facility] Comment on above: Performed By: #### C BC #### [facility] [address] [place] [address] Dr. Anisa Gomez Eosinophils/100 WBC (Bld) 0.8 % Critically low 0.9-7.0 [facility] Comment on above: Performed By: #### C BC #### [facility] [address] [place] [address] Dr. Anisa Gomez Erythrocyte distribution width (RBC) [Ratio] 15.2 % Critically high 11.0-15.0 [facility] Comment on above: Performed By: #### C BC #### [facility] [address] [place] [address] Dr. Anisa Gomez Hematocrit (Bld) [Volume fraction] 48.8 % Critically high 36.0-48.0 [facility] Comment on above: Performed By: #### C BC #### [facility] [address] [place] [address] Dr. Anisa Gomez Hemoglobin (Bld) [Mass/Vol] 15.8 g/dL Normal 12.0-16.0 [facility] Comment on above: Performed By: #### C BC #### [facility] [address] [place] [address] Dr. Anisa Gomez IG # 0.03 10e3/ul Normal 0.00-0.03 [facility] Comment on above: Performed By: #### C BC #### [facility] [address] [place] [address] Dr. Anisa Gomez IG % 0.2 % Normal 0.0-0.5 [facility] Comment on above: Performed By: #### C BC #### [facility] [address] [place] [address] Dr. Anisa Gomez LYMPH # 3.2 103/ul Normal 1.2-3.8 [facility] Comment on above: Performed By: #### C BC #### [facility] [address] [place] [address] Dr. Anisa Gomez Lymphocytes/100 WBC (Bld) 21.9 % Normal 20.5-60.0 [facility] Comment on above: Performed By: #### C BC #### [facility] [address] [place] [address] Dr. Anisa Gomez MANUAL DIFF REQ NO Normal [facility] Comment on above: Performed By: #### C BC #### [facility] [address] [place] [address] Dr. Anisa Gomez MCH (RBC) [Entitic mass] 29.9 pg Normal 26.7-34.0 [facility] Comment on above: Performed By: #### C BC #### [facility] [address] [place] [address] Dr. Anisa Gomez MCHC (RBC) [Mass/Vol] 32.4 g/dL Normal 29.9-35.2 [facility] Comment on above: Performed By: #### C BC #### [facility] [address] [place] [address] Dr. Anisa Gomez MCV (RBC) [Entitic vol] 92.2 fL Normal 81.0-99.0 [facility] Comment on above: Performed By: #### C BC #### [facility] [address] [place] [address] Dr. Anisa Gomez MONO # 1.2 103/ul Critically high 0.3-0.8 [facility] Comment on above: Performed By: #### C BC #### [facility] [address] [place] [address] Dr. Anisa Gomez Monocytes/100 WBC (Bld) 8.0 % Normal 1.7-12.0 [facility] Comment on above: Performed By: #### C BC #### [facility] [address] [place] [address] Dr. Anisa Gomez NEUT # 9.9 103/ul Critically high 1.4-6.5 [facility] Comment on above: Performed By: #### C BC #### [facility] [address] [place] [address] Dr. Anisa Gomez Neutrophils/100 WBC (Bld) 68.6 % Normal 43.0-75.0 [facility] Comment on above: Performed By: #### C BC #### [facility] [address] [place] [address] Dr. Anisa Gomez Platelet mean volume (Bld) [Entitic vol] 10.6 fL Normal 9.5-13.5 [facility] Comment on above: Performed By: #### C BC #### [facility] [address] [place] [address] Dr. Anisa Gomez PLT 336 103/ul Normal 150-450 [facility] Comment on above: Performed By: #### C BC #### [facility] [address] [place] [address] Dr. Anisa Gomez RBC 5.29 106/ul Normal 4.20-5.40 [facility] Comment on above: Performed By: #### C BC #### [facility] [address] [place] [address] Dr. Anisa Gomez WBC 14.4 103/ul Critically high 4.0-11.0 [facility] Comment on above: Performed By: #### C BC #### [facility] [address] [place] [address] Dr. Anisa Gomez CTA ABD/PELVIS WO W [...] by: LAYNE HO Date: 2022-11-11 18:26 Normal [facility] CTA CHEST WO W CONon 023 CTA CHEST WO W CON EXAMINATION: CTA PHYLLIS ST WO W CON HISTORY: CHEST PAIN, [...] ANDRES UNLU Date: 2022-11-11 17:48 Normal [facility] ER URINE PROFILEon 3 Bilirubin Ql (U) Negative Normal NEGATIVE [facility] Comment on above: Performed By: #### E RUR ####[facility] [id number] [place], [place] [address]Dr. Anisa Gomez Clarity (U) CLEAR Normal CLEAR [facility] Comment on above: Performed By: #### E RUR ####[facility] [address] [place], [place] [address]Dr. Anisa Gomez Color (U) LT. YELLOW Normal YELLOW [facility] Comment on above: Performed By: #### E RUR ####[facility] [id number] [address] [place], [place] [address]Dr. Anisa Gomez ERUAHD A micrscopic examina tion will be performed if indicated. Normal [facility] Comment on above: Performed By: #### E RUR ####[facility] [address] [place], [place] [address]Dr. Anisa Gomez Glucose Ql (U) Negative Normal NEGATIVE [facility] Comment on above: Performed By: #### E RUR ####[facility] Sr[address]rr[address]ne[address] [place], [place] [address]Dr. Anisa Gomez Hemoglobin Ql (U) Negative Normal NEGATIVE [facility] Comment on above: Performed By: #### E RUR ####[facility] [address] [place] [address]Dr. Anisa Gomez Ketones Ql (U) Negative Normal NEGATIVE [facility] Comment on above: Performed By: #### E RUR ####[facility] [address] [place] [address]Dr. Anisa Gomez LEUKOCYTES Negative Normal NEGATIVE [facility] Comment on above: Performed By: #### E RUR ####[facility] [address] [place], [place] [address]Dr. Anisa Gomez Nitrite Ql (U) Negative Normal NEGATIVE [facility] Comment on above: Performed By: #### E RUR ####[facility] Rvwckiosdo[address] [place], [place] [address]Dr. Anisa Gomez pH (U) 5.5 [pH] Normal 5-9 [facility] Comment on above: Performed By: #### E RUR ####[facility] Uc[address]ys[address] [place], [place] [address]Dr. Anisa Gomez SPEC GRAVITY >=1.030 Abnormal 1.005-<=1. 025 [facility] Comment on above: Performed By: #### E RUR ####[facility] [address] [place], [place] [address]Dr. Anisa Gomez UA PROTEIN Negative Normal NEGATIVE/ TRACE [facility] Comment on above: Performed By: #### E RUR ####[facility] Davsawctdb[address] [place], [place] [address]Dr. Anisa Gomez UR MICRO IND NOT INDICATED Normal [facility] Comment on above: Performed By: #### E RUR ####[facility] Q[address] [place], [place] [address]Dr. Anisa Gomez Urobilinogen Qn (U) 0.2 {Agustin'U}/dL Normal 0.2 - 1. 0 [facility] Comment on above: Performed By: #### E RUR ####[facility] V[address]afsuzn[address] [place], [place] [address]Dr. Anisa Gomez LIPASEon 05-02-2023 Lipase [Catalytic activity/Vol] 100.0 U/L Normal 73.0-393.0 [facility] Comment on above: Performed By: #### Debbi OVALLE LIPA #### [facility] [address] [place] [address] Dr. Anisa Gomez LIVER PROFILEon 11-11-2022 Albumin [Mass/Vol] 3.8 g/dL Normal 3.4-5.0 [facility] Comment on above: Performed By: #### L YAMILE LIPA #### [facility] [address] [place] [address] Dr. Anisa Gomez Albumin/Globulin [Mass ratio] 0.9 {ratio} Normal [facility] Comment on above: Performed By: #### Debbi OVALLE LIPA #### [facility] [address] [place] [address] Dr. Anisa Gomez ALP [Catalytic activity/Vol] 107 U/L Normal 46-116 [facility] Comment on above: Performed By: #### Debbi OVALLE LIPA #### [facility] [address] [place] [address] Dr. Anisa Gomez ALT [Catalytic activity/Vol] 25 U/L Normal 14-59 [facility] Comment on above: Performed By: #### Debbi OVALLE LIPA #### [facility] [address] [place] [address] Dr. Anisa Gomez AST [Catalytic activity/Vol] 25 U/L Normal 15-37 [facility] Comment on above: Performed By: #### L YAMILE LIPA #### [facility] [address] [place] [address] Dr. Anisa Gomez BILI, CONJUGATED 0.1 mg/dL Normal 0.0-0.2 [facility] Comment on above: Performed By: #### L YAMILE, LIPA #### [facility] [address] [place] [address] Dr. Anisa Gomez Bilirubin [Mass/Vol] 0.5 mg/dL Normal 0.2-1.0 [facility] Comment on above: Performed By: #### L JANET OVALLE #### [facility] [address] [place] [address] Dr. Anisa Gomez Globulin (S) [Mass/Vol] 4.0 g/dL Normal [facility] Comment on above: Performed By: #### L JANET OVALLE #### [facility] [address] [place] [address] Dr. Anisa Gomez Protein [Mass/Vol] 7.8 g/dL Normal 6.4-8.2 [facility] Comment on above: Performed By: #### L JANET OVALLE #### [facility] [address] [place] [address] Dr. Anisa Gomez PROF CHEM 8 (BAS METB)on Anion gap [Moles/Vol] 13.2 mmol/L Normal [facility] Comment on above: Performed By: #### B MP #### [facility] [address] [place] [address] Dr. Anisa Gomez Calcium [Mass/Vol] 9.4 mg/dL Normal 8.5-10.1 [facility] Comment on above: Performed By: #### B MP #### [facility] [address] [place] [address] Dr. Anisa Gomez Chloride [Moles/Vol] 103 mmol/L Normal 98-107 [facility] Comment on above: Performed By: #### B MP #### [facility] [address] [place] [address] Dr. Anisa Gomez CO2 [Moles/Vol] 29.3 mmol/L Normal 21.0-32.0 [facility] Comment on above: Performed By: #### B MP #### [facility] [address] [place] [address] Dr. Anisa Gomez Creatinine [Mass/Vol] 1.02 mg/dL Normal 0.55-1.02 [facility] Comment on above: Performed By: #### B MP #### [facility] [address] [place] [address] Dr. Anisa Gomez EGFR-AF CAMBODIAN 60 mL/min/1.73m2 Normal >=60 [facility] Comment on above: Performed By: #### B MP #### [facility] [address] [address] [address] Anisa Gomez EGFR-NON AF CAMBODIAN 54 mL/min/1.73m2 Critically low >=60 [facility] Comment on above: Performed By: #### B MP #### [facility] [address] [address] [address] Anisa Gomez Glucose [Mass/Vol] 102 mg/dL Normal 74-106 [facility] Comment on above: Performed By: #### B MP #### [facility] [address] [address] [address] Anisa Gomez Potassium [Moles/Vol] 4.5 mmol/L Normal 3.5-5.1 [facility] Comment on above: Performed By: #### B MP #### [facility] [address] [address] [address] Anisa Gomez Sodium [Moles/Vol] 141 mmol/L Normal 136-145 [facility] Comment on above: Performed By: #### B MP #### [facility] [address] [address] [address] Anisa Gomez Urea nitrogen [Mass/Vol] 16.0 mg/dL Normal 7.0-18.0 [facility] Comment on above: Performed By: #### B MP #### [facility] [id number] Anisa Gomez Urea nitrogen/Creatinine [Mass ratio] 15.7 mg/mg Normal [facility] Comment on above: Performed By: #### B MP #### [facility] [id number] Anisa Gomez [address] CHEST WO CONon [...] is recommended for better evaluation. Normal [facility] HEMOGLOBINon 10-27-2022 Hemoglobin (Bld) [Mass/Vol] 14.5 g/dL Normal 12.0-16.0 [facility] Comment on above: Performed By: #### H GB ####[facility] [address] [place], [place] [address]Qh[address] Cherryann Gomez CT LUNG CANCER SCREENINGon 0 07-24-2022 CT [...] document stability versus change. Electronically authenticated by: CLAUDIO CERVANTES Date: 2022-07-24 17:20 Normal [facility] MAMM SCREEN 3D BRISSA CADon 07-09-2022 MAMM SCREEN 3D BRISSA CAD Patient: BHUPENDRA RUBI Exam Date: 07/09/2022 : 1950 Gender:F Ordering : SHAIKH Eddie HORAN . Admission #: [id number] Family : Order #: [id number] CLICK HERE TO VIEW EXAM RADIOLOGY REPORT [...] No Treatments None Family Cancers None LOCATION: [facility] BREAST COMPOSITION: Heterogeneously dense,which may obscure small [...] PALPABLE LUMP SHOULD BE BIOPSIED. Dictated by: Claudio Cervantes M.D. on 07/25/2022 at 08:48 Approved by: Claudio Cervantes M.D. on 07/25/2022 at 08:51 Normal [facility] CBC AUTO DIFFon 05-07-2022 BASO # 0.1 103/ul Normal 0.0-0.1 [facility] Comment on above: Performed By: #### C BC #### [facility] [address] [place] [address] Dr. Anisa Gomez Basophils/100 WBC (Bld) 0.7 % Normal 0.2-2.0 [facility] Comment on above: Performed By: #### C BC #### [facility] [address] [place] [address] Dr. Anisa Gomez EO # 0.1 103/ul Normal 0.0-0.7 [facility] Comment on above: Performed By: #### C BC #### [facility] [address] [place] [address] Dr. Anisa Gomez Eosinophils/100 WBC (Bld) 0.6 % Critically low 0.9-7.0 [facility] Comment on above: Performed By: #### C BC #### [facility] [address] [place] [address] Dr. Anisa Gomez Erythrocyte distribution width (RBC) [Ratio] 14.9 % Normal 11.0-15.0 [facility] Comment on above: Performed By: #### C BC #### [facility] [address] [place] [address] Dr. Anisa Gomez Hematocrit (Bld) [Volume fraction] 48.4 % Critically high 36.0-48.0 [facility] Comment on above: Performed By: #### C BC #### [facility] [address] [place] [address] Dr. Anisa Gomez Hemoglobin (Bld) [Mass/Vol] 15.6 g/dL Normal 12.0-16.0 [facility] Comment on above: Performed By: #### C BC #### [facility] [address] [place] [address] Dr. Anisa Gomez IG # 0.02 10e3/ul Normal 0.00-0.03 [facility] Comment on above: Performed By: #### C BC #### [facility] [address] [place] [address] Dr. Anisa Gomez IG % 0.2 % Normal 0.0-0.5 [facility] Comment on above: Performed By: #### C BC #### [facility] [address] [place] [address] Dr. Anisa Gomez LYMPH # 2.9 103/ul Normal 1.2-3.8 [facility] Comment on above: Performed By: #### C BC #### [facility] [address] [place] [address] Dr. Anisa Gomez Lymphocytes/100 WBC (Bld) 28.6 % Normal 20.5-60.0 [facility] Comment on above: Performed By: #### C BC #### [facility] [address] [place] [address] Dr. Anisa Gomez MANUAL DIFF REQ NO Normal [facility] Comment on above: Performed By: #### C BC #### [facility] [address] [place] [address] Dr. Anisa Gomez MCH (RBC) [Entitic mass] 29.2 pg Normal 26.7-34.0 [facility] Comment on above: Performed By: #### C BC #### [facility] [address] [place] [address] Dr. Anisa Gomez MCHC (RBC) [Mass/Vol] 32.2 g/dL Normal 29.9-35.2 [facility] Comment on above: Performed By: #### C BC #### [facility] [address] [place] [address] Dr. Anisa Gomez MCV (RBC) [Entitic vol] 90.5 fL Normal 81.0-99.0 [facility] Comment on above: Performed By: #### C BC #### [facility] [address] [address] [address] Anisa Gomez MONO # 1.0 103/ul Critically high 0.3-0.8 [facility] Comment on above: Performed By: #### C BC #### [facility] [address] [place] [address] Dr. Anisa Gomez Monocytes/100 WBC (Bld) 9.5 % Normal 1.7-12.0 [facility] Comment on above: Performed By: #### C BC #### [facility] [address] [place] [address] Dr. Anisa Gomez NEUT # 6.2 103/ul Normal 1.4-6.5 [facility] Comment on above: Performed By: #### C BC #### [facility] [address] [place] [address] Dr. Anisa Gomez Neutrophils/100 WBC (Bld) 60.4 % Normal 43.0-75.0 [facility] Comment on above: Performed By: #### C BC #### [facility] [address] [place] [address] Dr. Anisa Gomez Platelet mean volume (Bld) [Entitic vol] 10.1 fL Normal 9.5-13.5 [facility] Comment on above: Performed By: #### C BC #### [facility] [address] [place] [address] Dr. Anisa Gomez PLT 403 103/ul Normal 150-450 [facility] Comment on above: Performed By: #### C BC #### [facility] [address] [place] [address] Dr. Anisa Gomez RBC 5.35 106/ul Normal 4.20-5.40 [facility] Comment on above: Performed By: #### C BC #### [facility] [address] [place] [address] Dr. Anisa Gomez WBC 10.2 103/ul Normal 4.0-11.0 [facility] Comment on above: Performed By: #### C BC #### [facility] [address] [place], [place] [address] Dr. Anisa Gomez LIPID PROFILEon 05-07-2022 CHOL-HDL RATIO NORM SEE BELOW Normal [facility] Comment on above: Result Comment: 3.3 - 4.4 LOW RISK 4.4 - 7.1 AVERAGE RISK 7.1 - 11.0 MODERATE RISK >11.0 HIGH RISK Performed By: #### L IPID, CMP ####[facility] [address] [place] [id number]. Anisa Gomez Cholesterol [Mass/Vol] 242 mg/dL Critically high <=200 [facility] Comment on above: Performed By: #### L IPID, CMP ####[facility] [address] [place] [address]DrCathy Gomez Cholesterol in HDL [Mass/Vol] 49 mg/dL Normal 40-60 [facility] Comment on above: Performed By: #### L IPID, CMP ####[facility] [address] [place] [address]Dr. Anisa Gomez Cholesterol in LDL [Mass/Vol] 148.4 mg/dL Normal [facility] Comment on above: Performed By: #### L IPID, CMP ####[facility] [address] [place] [id number]. Anisa Gomez Cholesterol.total/Choles terol in HDL [Mass ratio] 4.9 {ratio} Normal [facility] Comment on above: Performed By: #### L IPID, CMP ####[facility] [address] [place] [id number]. Anisa Gomez HDL NORMAL > or = 60 mg/dl - LO W CARDIOVASCULAR RISK <40 mg/dl - HIGH CARDIOVASCULAR RISK Normal [facility] Comment on above: Performed By: #### L IPID, CMP ####[facility] [address] [place] [address]Dr. Anisa Gomez LDL CALC NORMAL SEE BELOW Normal [facility] Comment on above: Result Comment: <100 mg/dl OPTIMAL 100 - 129 mg/dl NEAR OR ABOVE OPTIMAL 130 - 159 mg/dl BORDERLINE HIGH 160 - 189 mg/dl HIGH >190 mg/dl VERY HIGH Performed By: #### L IPID, CMP ####[facility] [address] [place] [address]Dr. Anisa Gomez Triglyceride [Mass/Vol] 223 mg/dL Critically high <=150 [facility] Comment on above: Performed By: #### L IPID, CMP ####[facility] [address] [place] [address]Dr. Anisa Gomez VLDL CALC 44.6 mg/dL Normal [facility] Comment on above: Performed By: #### L IPID, CMP ####[facility] [address] [place] [address]Dr. Anisa Gomez PROF 14(COMP METB)on 022 Albumin [Mass/Vol] 3.6 g/dL Normal 3.4-5.0 [facility] Comment on above: Performed By: #### L IPID, CMP ####[facility] [address]xcys[address] [place], [place] [address]Dr. Anisa Gomez Albumin/Globulin [Mass ratio] 1.0 {ratio} Normal [facility] Comment on above: Performed By: #### L IPID, CMP ####[facility] [address]ucnr[address] [place], [place] [address]Dr. Anisa Gomez ALP [Catalytic activity/Vol] 95 U/L Normal 46-116 [facility] Comment on above: Performed By: #### L IPID, CMP ####[facility] [address]fa[address] [place], [place] [address]Dr. Anisa Gomez ALT [Catalytic activity/Vol] 21 U/L Normal 14-59 [facility] Comment on above: Performed By: #### L IPID, CMP ####[facility] [address] [place] [address]Dr. Anisa Gomez Anion gap [Moles/Vol] 6.3 mmol/L Normal [facility] Comment on above: Performed By: #### L IPID, CMP ####[facility] [address]jl[address] [place], [place] [address]Dr. Anisa Gomez AST [Catalytic activity/Vol] 15 U/L Normal 15-37 [facility] Comment on above: Performed By: #### L IPID, CMP ####[facility] [address] [place], [place] [address]Dr. Cherryann Gomez Bilirubin [Mass/Vol] 0.5 mg/dL Normal 0.2-1.0 [facility] Comment on above: Performed By: #### L IPID, CMP ####[facility] [address]ktqe[address] [place], [place] [address]Dr. Cherryann Gomez Calcium [Mass/Vol] 9.1 mg/dL Normal 8.5-10.1 [facility] Comment on above: Performed By: #### L IPID, CMP ####[facility] [address]ft[address] [place], [place] [address]Dr. Anisa Gomez Chloride [Moles/Vol] 104 mmol/L Normal 98-107 [facility] Comment on above: Performed By: #### L IPID, CMP ####[facility] [address] [place], [place] [address]Dr. Anisa Gomez CO2 [Moles/Vol] 33.4 mmol/L Critically high 21.0-32.0 [facility] Comment on above: Performed By: #### L IPID, CMP ####[facility] [address]fhq[address] [place], [place] [address]Dr. Anisa Gomez Creatinine [Mass/Vol] 0.90 mg/dL Normal 0.55-1.02 [facility] Comment on above: Performed By: #### L IPID, CMP ####[facility] [address]ozma[address] [place], [place] [address]Dr. Anisa Gomez EGFR-AF CAMBODIAN >60 Normal >=60 [facility] Comment on above: Performed By: #### L IPID, CMP ####[facility] [address]zdav[address] [place], [place] [address]Dr. Anisa Gomez EGFR-NON AF CAMBODIAN >60 Normal >=60 [facility] Comment on above: Performed By: #### L IPID, CMP ####[facility] [address] [place], [place] [address]Dr. Anisa Gomez Globulin (S) [Mass/Vol] 3.7 g/dL Normal [facility] Comment on above: Performed By: #### L IPID, CMP ####[facility] [address] [place] [address]Dr. Anisa Gomez Glucose [Mass/Vol] 67 mg/dL Critically low 74-106 [facility] Comment on above: Performed By: #### L IPID, CMP ####[facility] [address] [place] [address]Dr. Cherryann Gomez Potassium [Moles/Vol] 3.7 mmol/L Normal 3.5-5.1 [facility] Comment on above: Performed By: #### L IPID, CMP ####[facility] [address] [place], [place] [address]Dr. Anisa Gomez Protein [Mass/Vol] 7.3 g/dL Normal 6.4-8.2 [facility] Comment on above: Performed By: #### L IPID, CMP ####[facility] [address] [place], [place] [address]Dr. Anisa Gomez Sodium [Moles/Vol] 140 mmol/L Normal 136-145 [facility] Comment on above: Performed By: #### L IPID, CMP ####[facility] [address] [place] [address]Dr. Anisa Gomez Urea nitrogen [Mass/Vol] 13.0 mg/dL Normal 7.0-18.0 [facility] Comment on above: Performed By: #### L IPID, CMP ####[facility] [address] [place] [address]Dr. Anisa Gomez Urea nitrogen/Creatinine [Mass ratio] 14.4 mg/mg Normal [facility] Comment on above: Performed By: #### L IPID, CMP ####[facility] [address] [place] [address]Dr. Anisa Gomez UA RANDOM W/MICROSCOPICon BACTERIA NONE SEEN Normal NONE SEEN [facility] Comment on above: Performed By: #### U AMIC #### [facility] [address] [address] [address] nAisa Gomez Bilirubin Ql (U) Negative Normal NEGATIVE [facility] Comment on above: Performed By: #### U AMIC #### [facility] [address] [address] [address] Anisa Gomez CAST NONE SEEN Normal NONE SEEN [facility] Comment on above: Performed By: #### U AMIC #### [facility] [address] [place] [address] Dr. Anisa Gomez Clarity (U) CLEAR Normal CLEAR [facility] Comment on above: Performed By: #### U AMIC #### [facility] [address] [address] [address] Anisa Gomez Color (U) YELLOW Normal YELLOW [facility] Comment on above: Performed By: #### U AMIC #### [facility] [address] [place] [address] Dr. Anisa Gomez Crystals LM Nom (Urine sed) NONE SEEN Normal NONE SEEN [facility] Comment on above: Performed By: #### U AMIC #### [facility] [address] [place] [address] Dr. Anisa Gomez Epithelial cells LM Ql (Urine sed) RARE Normal NONE SEEN /RARE [facility] Comment on above: Performed By: #### U AMIC #### [facility] [address] [place] [address] Dr. Anisa Gomez Glucose Ql (U) Negative Normal NEGATIVE [facility] Comment on above: Performed By: #### U AMIC #### [facility] [address] [place] [address] Dr. Anisa Gomez Hemoglobin Ql (U) Negative Normal NEGATIVE [facility] Comment on above: Performed By: #### U AMIC #### [facility] [address] [place] [address] Dr. Anisa Gomez Ketones Ql (U) Negative Normal NEGATIVE [facility] Comment on above: Performed By: #### U AMIC #### [facility] [address] [place] [address] Dr. Anisa Gomez LEUKOCYTES Negative Normal NEGATIVE [facility] Comment on above: Performed By: #### U AMIC #### [facility] [address] [address] [address] Anisa Gomez MUCOUS NONE SEEN Normal NONE SEEN [facility] Comment on above: Performed By: #### U AMIC #### [facility] [address] [place] [address] Dr. Anisa Gomez Nitrite Ql (U) Negative Normal NEGATIVE [facility] Comment on above: Performed By: #### U AMIC #### [facility] [address] [place] [address] Dr. nAisa Gomez pH (U) 7.0 [pH] Normal 5-9 [facility] Comment on above: Performed By: #### U AMIC #### [facility] [address] [place] [address] Dr. Anisa Gomez RBC 0-2 Normal 0-2 [facility] Comment on above: Performed By: #### U AMIC #### [facility] [address] [place] [address] Dr. Anisa Gomez SPEC GRAVITY 1.010 Normal 1.005-<=1. 025 [facility] Comment on above: Performed By: #### U AMIC #### [facility] [address] [place] [address] Dr. Anisa Gomez UA PROTEIN Negative Normal NEGATIVE/ TRACE [facility] Comment on above: Performed By: #### U AMIC #### [facility] [address] [place] [address] Dr. Anisa Gomez Urobilinogen Qn (U) 0.2 {Agustin'U}/dL Normal 0.2 - 1. 0 [facility] Comment on above: Performed By: #### U AMIC #### [facility] [address] [place] [address] Dr. Anisa Gomez WBC 0-2 Abnormal NONE SEEN [facility] Comment on above: Performed By: #### U AMIC #### [facility] [address] [place] [address] Dr. Anisa Gomez Vital Signs Date Time Vital Sign Value Performing Clinician Facility 12-30-2023 09:35-0400 Body height 157.48 cm MD Shaikh Horan Work Phone: [facility] 12-30-2023 09:35-0400 Body mass index (BMI) [Ratio] 27.4 kg/m2 MD Shaikh Horan Work Phone: [facility] 12-30-2023 09:35-0400 Body temperature 97.3 [degF] MD Shaikh Horan Work Phone: [facility] 12-30-2023 09:35-0400 Body weight 68.03 kg MD Shaikh Horan Work Phone: [facility] 12-30-2023 09:35-0400 Diastolic blood pressure 50 mm[Hg] MD Shaikh Horan Work Phone: [facility] 12-30-2023 09:35-0400 Heart rate 106 /min MD Shaikh Horan Work Phone: [facility] 12-30-2023 09:35-0400 Respiratory rate 18 /min MD Shaikh Horan Work Phone: [facility] 12-30-2023 09:35-0400 SaO2% (BldA) [Mass fraction] 85 % MD Shaikh Horan Work Phone: [facility] 12-30-2023 09:35-0400 Systolic blood pressure 76 mm[Hg] MD Shaikh Horan Work Phone: [facility] 12-27-2023 15:46-0400 Diastolic blood pressure 57 mm[Hg] MD Shaikh Horan Work Phone: [facility] 12-27-2023 15:46-0400 Heart rate 65 /min MD Shaikh Horan Work Phone: [facility] 12-27-2023 15:46-0400 Respiratory rate 20 /min MD Shaikh Horan Work Phone: [facility] 12-27-2023 15:46-0400 Systolic blood pressure 112 mm[Hg] MD Shaikh Horan Work Phone: [facility] 12-27-2023 14:59-0400 Inhaled oxygen flow rate 2 L/min MD Shaikh Horan Work Phone: [facility] 12-27-2023 14:59-0400 SaO2% (BldA) [Mass fraction] 92 % MD Shaikh Horan Work Phone: [facility] 12-27-2023 11:20-0400 Body temperature 97.7 [degF] MD Shaikh Horan Work Phone: [facility] 12-27-2023 10:48-0400 Body height 157.48 cm MD Shaikh Horan Work Phone: [facility] 12-27-2023 10:48-0400 Body weight 70.8 kg MD Shaikh Horan Work Phone: [facility] 03-25-2023 10:00-0400 Body height 157.48 cm Nigel Valladares Other [facility] Other 03-25-2023 10:00-0400 Body mass index (BMI) [Ratio] 27.43 kg/m2 Nigel Valladares Other [facility] Other 03-25-2023 10:00-0400 Body temperature 97.2 [degF] Nigel Valladares Other [facility] Other 03-25-2023 10:00-0400 Body weight 68.04 kg Nigel Valladares Other [facility] Other 03-25-2023 10:00-0400 Diastolic blood pressure 82 mm[Hg] Nigel Becerraeleanor Other [facility] Other 03-25-2023 10:00-0400 SaO2% (BldA) [Mass fraction] 91 % Nigel Becerraeleanor Other [facility] Other 03-25-2023 10:00-0400 Systolic blood pressure 158 mm[Hg] Nigel Becerraeleanor Other [facility] Other 02-09-2023 11:00-0400 Body height 157.48 cm Cherelle Bautista Other [facility] Other 02-09-2023 11:00-0400 Body mass index (BMI) [Ratio] 27.43 kg/m2 Cherelle Bautista Other [facility] Other 02-09-2023 11:00-0400 Body temperature 97.6 [degF] Cherelle Bautista Other [facility] Other 02-09-2023 11:00-0400 Body weight 68.04 kg Cherelle Bautista Other [facility] Other 02-09-2023 11:00-0400 Diastolic blood pressure 74 mm[Hg] Cherelle Bautista Other [facility] Other 02-09-2023 11:00-0400 SaO2% (BldA) [Mass fraction] 92 % Cherelle Bautista Other [facility] Other 02-09-2023 11:00-0400 Systolic blood pressure 122 mm[Hg] Cherelle Bautista Other [facility] Other 12-24-2022 10:00-0400 Diastolic blood pressure 86 mm[Hg] Brigetteenrique EsparzaLianet [facility] 12-24-2022 10:00-0400 Mean blood pressure 106 mm[Hg] Brigette Lianet [facility] 12-24-2022 10:00-0400 Systolic blood pressure 146 mm[Hg] Brigette Lianet [facility] 12-24-2022 09:57-0400 Blood Pressure Location Brigette Lianet [facility] 12-24-2022 09:57-0400 Body temperature 97.52 [degF] Brigetteenrique EsparzaLianet [facility] 12-24-2022 09:57-0400 Diastolic blood pressure 82 mm[Hg] Brigette Lianet [facility] 12-24-2022 09:57-0400 Heart rate 86 /min Brigette Lianet [facility] 12-24-2022 09:57-0400 Systolic blood pressure 150 mm[Hg] Brigetteenrique EsparzaLianet [facility] Encounters Encounter Date Encounter Type Care Provider Facility Start: 03-01-2024 ambulatory RO AUNG Facility: [facility] Start: 03-01-2024 End: 03-01-2024 Patient encounter procedure Arden De Leon [facility] Start: 02-22-2024 End: 02-22-2024 ambulatory CHRIS BERMAN Not Available Start: 02-19-2024 ambulatory SHAIKH AUNG Facility: [facility] Start: 01-04-2024 End: 01-04-2024 ambulatory SHAIKH AUNG Not Available Start: 12-30-2023 End: 12-30-2023 Patient encounter procedure MD Shaikh Horan Work Phone: [facility] Vascular Surgery Work Phone: Start: 12-30-2023 End: 12-30-2023 ambulatory MD Shaikh Horan Work Phone: [facility] Work Phone: Start: 12-27-2023 End: 12-27-2023 Emergency department patient visit MD Shaikh Horan Work Phone: [facility]Emergency [facility] Work Phone: Start: 11-09-2023 End: 11-09-2023 ambulatory SHAIKH AUNG Not Available Start: 10-12-2023 End: 10-12-2023 ambulatory SHAIKH AUNG Not Available Start: 08-20-2023 Orders Only Shaikh Aung FARFAN Work Phone: [facility] IM Comment on above: RLS (restless legs s yndrome) (Primary Dx); Moderate COPD (chronic obstructive pulmonary disease) ([facility]) Start: 07-09-2023 Patient encounter procedure Shaikh Aung FARFAN Work Phone: [facility] Start: 07-09-2023 End: 07-09-2023 ambulatory SHAIKH AUNG Not Available Start: 03-25-2023 Office outpatient visit 15 minutes Nigel Valladares [facility] Vascular Surgery Start: 03-25-2023 End: 03-25-2023 ambulatory Cherelle Bautista [facility] Other Start: 02-09-2023 End: 02-09-2023 ambulatory Cherelle Bautista Other [facility] Other Start: 02-09-2023 [facility] visit new patient Cherelle Goldstein jaciel STARR Vascular Surgery Start: 01-07-2023 End: 01-07-2023 Patient encounter procedure Brigette Martini [facility] Start: 01-01-2023 End: 01-01-2023 Patient encounter procedure Brigette Matrini [facility] Start: 12-29-2022 End: 12-29-2022 Patient encounter procedure Brigette Martini [facility] Start: 12-24-2022 End: 12-24-2022 Patient encounter procedure Brigette Martini [facility] Start: 12-24-2022 End: 02-19-2023 Pre-admission assessment Jorge MERCEDES [facility] Start: 12-24-2022 End: 12-24-2022 Patient encounter procedure Brigette Martini [facility] Start: 11-11-2022 End: 11-11-2022 ambulatory SHAIKH Enrique HORAN Facility:[facility] Start: 10-27-2022 End: 10-28-2022 ambulatory LEIGH THOMPSON . Facility:[facility] Start: 09-01-2022 End: 09-01-[address] JERMAIN WESTON . Facility:[facility] Start: 07-24-2022 End: 07-25-2022 ambulatory SHAIKH Enrique HORAN Facility:[facility] Start: 07-14-2022 ambulatory SHAIKH Enrique HORAN Facilit y:[facility] Start: 07-09-2022 End: 07-10-2022 ambulatory SHAIKH Enrique HORAN Facility:[facility] Start: 12-23-2022 ambulatory SHAIKH Enrique HORAN Facilit y:[facility] Start: 06-09-2022 End: 06-09-2022 Patient encounter procedure Jermain Mckay TRI[facility] Start: 05-07-2022 End: 05-08-2022 ambulatory SHAIKH Enrique PERCYRENNY Facility:[facility] Procedures Date Procedure Procedure Detail Performing Clinician Start: 12-30-2023 US scan of aorta MD Reynaldo Horan Work Phone: Start: 12-27-2023 Screening for occult blood in feces MD Shaikh Horan Work Phone: Start: 12-27-2023 Urine culture MD Shaikh Horan Work Phone: Start: 12-27-2023 Antibody screen Bernardino Gifford Comment on above: Result Comment: PERF ORMED BY: [facility] [address] [place] [address] PATHOLOGIST REFRIGERATION PERSON JENNIFER ALANIZ M.D. Start: 12-27-2023 CT angiography of thorax MD Shaikh Horan Work Phone: Start: 12-27-2023 Plain chest X-ray MD Janett Horan Work Phone: Start: 07-03-2022 Mammography Shaikh Kendra flowers MD Work Phone: Start: 07-13-1989 Introduction of tens ion free vaginal tape Brigette Martini Cholecystectomy Brigette nash Hysterectomy Brigette Martini Rotator cuff includi ng muscles and tendons (body structure) Brigette Martini Plan of Treatment Date Care Activity Detail Author Start: 04-12-2026 Screening for malign ant neoplasm of colon [facility] Start: 07-09-2024 Medicare Annual Well ness (AWV) Medicare Annual Wellness (AWV) [facility] Start: 01-10-2024 Influenza vaccination Influenz a Vaccine (#1) [facility] Comment on above: Postponed from 03/13 (Patient Refused) Start: 12-27-2023 Bacteria identified in Blood by Culture [facility] Start: 12-27-2023 Bacteria identified in Urine by Culture [facility] Start: 12-27-2023 Blood culture for bacteria, including anaerobic screen Blood Culture [facility] Start: 10-08-2023 End: 10-08-2023 Patient encounter procedure 10/08/2023 2:00 PM EDT Office Visit [facility] [address] [place] [id number] Shaikh Horan MD [address] [place] [id number] [facility] Start: 07-03-2023 Screening for malign ant neoplasm of breast Mammogram [facility] Start: 1950 Screening for malign ant neoplasm of colon [facility] Patient Education Dealing with L ow Blood Pressure from the Drugs You Take [facility] Work Phone: Patient referral [facility] Work Phone: US Thoracic and abdominal aorta [facility] Immunizations Immunization Date Immunization Notes Care Provider Fa [facility] 07-09-2022 pneumococcal 20-ananya nt conjugate vaccine Brigette Martini [facility] 07-03-2022 pneumococcal conjuga te vaccine, 13 valent Brigette Martini [facility] Payers Date Payer Category Payer Private Health Insurance [id number] 2023 Private Health Insurance [id number] 2023 Medicare [id number] 2022 Unknown [employer] [id number] 2022-Present [address] [place] [address] [id number] 2020 Unknown [id number] Self-pay 1950 Unknown [id number] 2.16.840.1.782571.3.579.2 .593 1952 Unknown [id number] 2.16.840.1.930895.3.579.2 .593 1952 Unknown [id number] 2.16.840.1.211105.3.579.2 .593 1952 Unknown [id number] 2.16.840.1.504230.3.579.2 .593 1952 Unknown [id number] 2.16.840.1.858891.3.579.2 .593 1952 Unknown [id number] 2.16.840.1.244849.3.579.2 .593 1952 Unknown [id number] 2.16.840.1.703181.3.579.2 .593 1952 Unknown [id number] 2.16.840.1.913877.3.579.2 .593 1952 Unknown [id number] 2.16.840.1.199084.3.579.2 .1259 1952 Unknown [id number] 2.16.840.1.756189.3.579.2 .1259 1952 Unknown [id number] 2.16.840.1.943102.3.579.2 .1259 1952 Unknown [id number] 2.16.840.1.739476.3.579.2 .1259 1952 Unknown [id number] 2.16.840.1.292740.3.579.2 .1259 1952 Unknown [id number] 2.16.840.1.036468.3.579.2 .727 1952 Unknown [id number] 2.16.840.1.304424.3.579.2 .727 Unknown [id number] 2.16.840.1.287516.3.579.2 .531 Unknown [id number] 2.16.840.1.304674.3.579.2 .531 Unknown [id number] 2.16.840.1.875542.3.579.2 .531 Social History Date Type Detail Facility Tobacco smoking status [facility] Start: 07-09-2023 Sex Assigned At Female F [facility] Start: 12-24-2022 Tobacco smoking status Heavy t obacco smoker (finding) [facility] Tobacco smoking status Never [facility] Start: 07-09-2023 Tobacco smoking stat [facility] Smokes tobacco daily [facility] History of tobacco use Cigarette Smoker [facility] Start: 07-09-2023 Cigarettes smoked current (pack per day) - Reported 1 [facility] Start: 07-09-2023 Tobacco use and exposure Smokeless tobacco non-user [facility] Start: 07-09-2023 Alcohol intake Lifetime non-d meghan (finding) [facility] Start: 1950 Sex Assigned At Not on file [facility] Start: 1950 Sex Assigned At Female F [facility] Start: 12-27-2023 Tobacco smoking stat [facility] Smoker (finding) [facility] Functional Status Date Assessment Result Facility 12-24-2022 Functional Status N/A [facility] Clinical Notes 06-09-2022 to 03-25-2023 [...] were addressed she understands agrees the plan. [facility] Other 07-31-2023 Evaluation note* Encounter Date Diagnosis Assessment Notes Treatment Notes Treatment Clinical Notes Jan, Abdominal aortic aneurysm (AAA) without rupture, unspecified part (ICD-10 - I71.40) We reviewed her abdominal CT imaging from outside facility at the [facility] which shows AAA 3.4 cm in greatest [...] her risk and is unmotivated to quit. [facility] Other 06-14-2023 Hospital Discharge instructions Patient Education [...] Follow these instructions at home: Medicines Take lpji-kpj-pkwefbc and prescription medicines only as told by [...] Watch your condition for any changes. Take jgtu-tiu-xvospsg and prescription medicines only as told by [...] provider. Document Revised: 08/17/2020 Document Reviewed: 11/07/2019 [employer] Patient Education 2022 [employer]. Follow Up Care 12/15/2022 11:25:23 With:Brigette Martini CNP Address: When:1 month [facility] 11-28-2022 Hospital Discharge instructions Patient Education 06/09/2022 08:13:08 [...] fried and sweet foods. General instructions Take coup-pkd-eyqpmkd and prescription medicines only as told by [...] 04/25/2010 Document Revised: 10/20/2019 Document Reviewed: 07/15/2018 [employer] Patient Education 2020 [employer]. Follow Up Care 05/09/2022 11:00:12 With:TRISTA FARFAN, Jermain Mckay, URL Address: [facility] [address] , [place] [address]- When: Unknown [facility] evaluation + Plan note No data available for this section [facility] evaluation + Plan note Future Appointments Appointment Date:12/29/2022 10:30:00 AM Scheduled Provider: Location:.[facility] Appointment Type:US Abdominal/Pelvis (FT) Appointment Date:02/18/2023 08:15:00 AM Scheduled Provider: Location:[facility] Appointment Type:Surgery FT Future Scheduled Tests Radiology* US Abdomen, Limited 12/29/22 [facility] Evaluation + Plan note Future Appointments Appointment Date:02/18/2023 08:15:00 AM Scheduled Provider: Location:[facility] Future Appointments Appointment Date:01/07/2023 11:00:00 AM Scheduled Provider: Location:.[facility] Appointment Type:CT Abdomen (FT) Appointment Date:02/18/2023 08:15:00 AM Scheduled Provider: Location:[facility] Appointment Type:Surgery FT Future Scheduled Tests Radiology* CT Abdomen w/ Contrast [facility]07[facility]23 [facility] Diagnosis RLS (restless legs syndrome)- Primary Restless legs syndrome (RLS) Moderate COPD (chronic obstructive pulmonary disease) (CMS/HCC) documented in this encounter [facility] noteNo assessment information availableFirOhio[facility] Work Phone: Evaluation note* Diagnosis Onset Date Resolution Status Abdominal aortic aneurysm (A AA) 3.0 cm to 5.0 cm in diameter in female acute [facility] Work Phone: [facility] general Narrative - Reported* Type Description Date Medical History GERD Medical History hypercholesterolemia Surgical History cholecystectomy Surgical History tubal ligation Surgical History shoulder surgery Hospitalization History see above [facility] Other [facility] Narrative - Reported* Type Description Date Medical History GERD Medical History hypercholesterolemia Medical History Carotid stenosis Surgical History cholecystectomy Surgical History tubal ligation Surgical History shoulder surgery Hospitalization History see above [facility] Other Hospital Discharge instructions No data available for this section [facility] Additional Instructions Stop your blood pressure medicine. Follow-up with your doctor without fail for reevaluation of blood pressure and left lung mass.[facility] Work Phone: Progress note No data available for this section [facility] [place] Summary Purpose Family History Relationship Condition Age at Onset Recorded Date/T violette father Unknown Not Specified Unknown Advance Directives Advance Directive Response Recorded Date/ Time Advance [...] and content) DATE CREATED AUTHOR 11/24/2022 [facility] DATE CREATED AUTHOR AUTHOR'S ORGANIZ ATION 02/24/2024 [facility] EPIC DATE CREATED AUTHOR AUTHOR'S ORGANIZ ATION 02/28/2024 [facility] DATE CREATED AUTHOR AUTHOR'S ORGANIZ ATION 02/29/2024 [facility] Patient Care team informatio n (unrecognized section and content) Personnel Name: SHAIKH HORAN MD Address: Address: [address] [place] [address] Team Status: Active Member Role Status Dates Shaikh Aung MD Primary Care Provider Active Team Status: Inactive Member Role Status Dates Shaikh Aung MD Primary Care Provider Active Start: December 27, 2023 End: December 27, 2023 Bernardino Gifford MD Emergency Provider Active St art: December 27, 2023 End: December 27, 2023 [employer] Relationship Specialty Start Date End Date Shaikh Horan MD PCP - General Internal Medicine 01/26/23 Shaikh Horan MD [address] [place] [id number] PCP - Devoted 04/12/23 Personnel Name: SHAIKH HORAN Address: Address: [address] [place] [address] REASON FOR VISIT (unrecogniz ed section and content) Referred by Dr. Horan for 3 .4cm AAA; CTA done at [facility] U/S 930 AM Goals (unrecognized section [...] BE BASED ON THE PRIMARY CLINICAL RECORDS. [facility] [employer] [facility]. provides no warranty or guarantee of the accuracy or completeness of information in this document.
== END 2024-03-02 12:05 | disposition home or self-care (01) ==
LOC: PST 12:05
PROVIDERS: Visit Provider Internal Medicine
DX: Z01.818 Encounter for other preprocedural examination (principal); R91.8 Other nonspecific abnormal finding of lung field

== ENCOUNTER 2024-03-09 10:39 | Day surgery (SDC) | payer MEDICARE, SELFPAY ==
[2024-03-02 12:57] VITALS: BP 116/67; PULSE 99; TEMP 36.4; O2SAT 94; BMI 27.4
[2024-03-09] VITALS (18 sets, daily range): BP systolic 118–194; BP diastolic 43–94; PULSE 72–97; TEMP 36.2–36.8; O2SAT 90–97; BMI 26.9
--- OUTSIDE RECORDS SUMMARY | 2024-03-09 11:01 | XMS_ITS | CCD ---
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 Phone FAWWAD, RO H Admitting [...] Physician Cherelle Bautista Unavailable Nigel Valladares Unavailable Shaikh Horan MD Primary Care Provider Shaikh Horan MD Unavailable MD Jia Horan Primary Care Provider MD Bernardino Gifford Emergency Provider VONDA Bautista [...] Medication Allergies] Propensity to adverse reactions (disorder) [facility] Repository Medications Current Medications Medication Drug Class(es) Dates Sig (Normalized) Sig (Original) 30 ACTUAT fluticasone furoate 0.2 MG/ACTUAT / umeclidinium 0.0625 MG/ACTUAT / vilanterol 0.025 MG/ACTUAT Dry Powder Inhaler [Trelegy] (2 sources) Trelegy Ellipta 200-62.5-25 MCG/ACT Inhalation for 30 Days Active [id number] 200 actuat albuterol 0.09 mg/actuat metered dose [...] Daily, # 90 cap(s), Refills(s) 0, [facility], cm, 12/24/22 10:00:00 EDT, Height/Length [...] day(s), # 90 tab(s), Refills(s) 0, Pharmacy: [facility], 159, cm, 12/24/22 10:00:00 EDT, Height/Length Dosing, [...] day(s), # 30 tab(s), Refills(s) 0, Pharmacy: [email or web address], 159, cm, 12/24/22 10:00:00 EDT, Height/Length Dosing, 67.6, kg, 12/24/22 10:00:00 EDT, Weight Dosing Start Date: 01/06/23 Stop Date: 02/05/23 Status: Ordered gabapentin 300 mg oral capsule (12 sources) Anti-epileptic Agent Start: 12-27-2023 take 300 mg by mouth three times daily Gabapentin Active 300 MG PO Three times daily December 27, 2023 12:00am Start: 06-09-2022 take 1 capsule by [facility] in the morning, then take 1 capsule [...] procedure, # 2 tab(s), Refills(s) 0, Pharmacy: [facility], 159, cm, 08/11/22 13:12:00 EST, Height/Length Dosing, 64, kg, 08/11/22 13:12:00 EST, Weight Dosing Start Date: 08/14/22 Status: Ordered polyethylene glycol 3350 192994 mg / potassium chloride 1480 mg / sodium bicarbonate 5720 mg / sodium chloride 36187 mg powder for oral solution (7 sources) Osmotic Laxative Start: 12-24-2022 NuLYTELY Fuentes oral powder for reconstitution See Instructions, 1 EA, Refill(s) 0, Prior to colonoscopy., [email or web address], 159, cm, 12/24/22 10:00:00 EDT, Height/Length [...] artery] Chronic Other aftercare (1 source) 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; 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: [OTH NURSING HOME CURRENT DRUG THERAPY] Onset: 11-13-2022 Episodic Other aftercare (1 source) penitentiary (current) use of aspirin; 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] Onset: 11-13-2022 Episodic [...] Interpretation Reference Range Facility aortaon 12-30-2023 aorta [facility] [address] [place] [address] Ultrasound Report Signed Patient: Bhupendra Rubi MR#: [id number] 306 : 1950 Acct:[id number] Age/Sex: 73 / F ADM Date: 12/30/23 Loc: EMIILA Room: Type: [facility] Attending Dr: Cherelle FERRARI Ordering Provider: Cherelle [...] Adam Keller M.D.12/30/2023 9:53 AM Dictation Location: [place] [address] Tech: Yakelindaniela Gibson Transcribed By: JOSE MIGUEL 12/30/23 0953 Dictated By: Adam Keller MD 12/30/23 0949 Signed By: 12/30/23 0953 Normal [facility] ABO/Rh Retypeon 12-27-2023 ABO/RH Recheck Result Positive Normal [facility] Comment on above: Result Comment: PERF ORMED BY: [facility] [address] [place] [address] PATHOLOGIST FILM TECHNICIAN JENNIFER ALANIZ M.D. Activated partial thrombopla stin time (aPTT) in platelet poor plasma by coagulation aOrdered By: Bernardino Gifford on 12-27-2023 aPTT Coag (PPP) [Time] 24.6 s 25.1-36.5 [facility] Comment on above: A hematocrit value g reater than 55% may lead to inaccurate results in coagulation testing. Patients having hematocrit values >55% require a special collection tube for coagulation studies. Please contact the laboratory at [phone] for redraw instructions. Alanine aminotransferase [En zymatic activity/volume] in Serum or PlasmaOrdered By: Bernardino Gifford on 12-27-2023 ALT [Catalytic activity/Vol] 10 U/L Normal 7-52 [facility] Comment on above: Performed By: #### C MP, CBC, HS TROP, CK #### [address] Albumin [Mass/volume] in Ser um or Plasma by Bromocresol green (BCG) dye binding methoOrdered By: Bernardino Gifford on 12-27-2023 Albumin BCG dye [Mass/Vol] 4.0 g/dL 3.5-5.7 [facility] Alkaline phosphatase [Enzyma tic activity/volume] in Serum or PlasmaOrdered By: Bernardino Gifford on 12-27-2023 ALP [Catalytic activity/Vol] 105 U/L High 34-104 [facility] Comment on above: Performed By: #### C MP, CBC, HS TROP, CK #### [address] Arterial Blood Gason 024 ABG Base Excess -2.4 mmol/L Normal -3.0-3.0 [facility] Comment on above: Performed By: #### C MP, CBC, HS TROP, CK #### [address] ABG Frac Inspired O2 32 % Normal [facility] Comment on above: Performed By: #### C MP, CBC, HS TROP, CK #### [address] ABG Liter Flow 3 Normal [facility] Comment on above: Performed By: #### C MP, CBC, HS TROP, CK #### [address] ABG Oxygen Content 7.5 mmol/L Normal 6.6-9.7 [facility] Comment on above: Performed By: #### C MP, CBC, HS TROP, CK #### [address] ABG Oxygen Saturation 95.5 % Normal 95.0-100.0 [facility] Comment on above: Performed By: #### C MP, CBC, HS TROP, CK #### [address] ABG PCO2 46.7 mm[Hg] High 35.0-45.0 [facility] Comment on above: Performed By: #### C MP, CBC, HS TROP, CK #### [address] ABG PH 7.33 Low 7.35-7.45 [facility] Comment on above: Performed By: #### C MP, CBC, HS TROP, CK #### [address] ABG PO2 84.0 mm[Hg] Normal 80.0-100.0 [facility] Comment on above: Performed By: #### C MP, CBC, HS TROP, CK #### [address] Oxygen Device Nasal Cannula Normal [facility] Comment on above: Performed By: #### C MP, CBC, HS TROP, CK #### [address] Respiratory Critical Normal [facility] Comment on above: Result Comment: Crit ical Value called on: 12/27/2023 at 11:36 PERFORMED BY: [place] [address] PATHOLOGIST FILM TECHNICIAN JENNIFER ALANIZ M.D. Performed By: #### C MP, CBC, HS TROP, CK #### [address] VBG Draw Site Left Radial Normal [facility] Comment on above: Performed By: #### C MP, CBC, HS TROP, CK #### [address] Arterial Blood GasOrdered By : Bernardino Gifford on 12-27-2023 CO2 [Moles/Vol] 25.3 mmol/L Normal 23.0-27.0 [facility] Comment on above: Performed By: #### C MP, CBC, HS TROP, CK #### [address] HCO3 (Bld) [Moles/Vol] 23.8 mmol/L Normal 23.0-29.0 [facility] Comment on above: Performed By: #### C MP, CBC, HS TROP, CK #### [address] Aspartate aminotransferase [ Enzymatic activity/volume] in Serum or PlasmaOrdered By: Bernardino Gifford on 12-27-2023 AST [Catalytic activity/Vol] 10 U/L Low 13-39 [facility] Comment on above: Performed By: #### C MP, CBC, HS TROP, CK #### [address] Automated basophil %Ordered By: Bernardino Gifford on 12-27-2023 Basophils/100 WBC (Bld) 0.6 % Normal . [facility] Comment on above: Performed By: #### C MP, CBC, HS TROP, CK #### [address] Automated basophil countOrde red By: Bernardino Gifford on 12-27-2023 Basophils (Bld) [#/Vol] 0.1 10*3/uL Normal 0.0-0.2 [facility] Comment on above: Result Comment: PERF ORMED BY: [place] [address] PATHOLOGIST FILM TECHNICIAN JENNIFER ALANIZ M.D. Performed By: #### C MP, CBC, HS TROP, CK #### [address] Automated blood monocyte cou ntOrdered By: Bernardino Gifford on 12-27-2023 Monocytes (Bld) [#/Vol] 1.3 10*3/uL High 0.0-0.8 [facility] Comment on above: Performed By: #### C MP, CBC, HS TROP, CK #### [address] Automated eosinophil %Ordere d By: Bernardino Gifford on 12-27-2023 Eosinophils/100 WBC (Bld) 0.6 % Normal . [facility] Comment on above: Performed By: #### C MP, CBC, HS TROP, CK #### [facility] [address] [place] [address] Automated eosinophil countOr dered By: Bernardino Gifford on 12-27-2023 Eosinophils (Bld) [#/Vol] 0.1 10*3/uL Normal 0.0-0.45 [facility] Comment on above: Performed By: #### C MP, CBC, HS TROP, CK #### [facility] [address] [place] [address] Automated monocyte %Ordered By: Bernardino Gifford on 12-27-2023 Monocytes/100 WBC (Bld) 9.8 % Normal . [facility] Comment on above: Performed By: #### C MP, CBC, HS TROP, CK #### [facility] [address] [place] [address] Automated neutrophil %Ordere d By: Bernardino Gifford on 12-27-2023 Neutrophils/100 WBC (Bld) 61.6 % Normal . [facility] Comment on above: Performed By: #### C MP, CBC, HS TROP, CK #### [address] BNP ser/plasOrdered By: Urbano Gifford on 12-27-2023 Natriuretic peptide B (Bld) [Mass/Vol] 32.0 pg/mL Normal 5-100 [facility] Comment on above: Result Comment: PERF ORMED BY: [place] [address] PATHOLOGIST FILM TECHNICIAN JENNIFER ALANIZ M.D. Performed By: #### C MP, CBC, HS TROP, CK #### [address] Bacteria [Presence] in Urine sediment by Light microscopyOrdered By: Bernardino Gifford on 12-27-2023 Bacteria LM Ql (Urine sed) 1+ [HPF] None Seen [facility] Comment on above: Microscopic results may be affected due to low specimen volume. Bilirubin Test strip Ql (U)O rdered By: Bernardino Gifford on 12-27-2023 Bilirubin Ql (U) Negative Negative [facility] Bilirubin.total [Mass/volume ] in Serum or PlasmaOrdered By: Bernardino Gifford on 12-27-2023 Bilirubin [Mass/Vol] 0.3 mg/dL Normal 0.3-1.0 [facility] Comment on above: Performed By: #### C MP, CBC, HS TROP, CK #### [facility] [address] [place] [address] Blood Cultureon 12-27-2023 Bacteria identified Cx Nom (Bld) NO GROWTH 5 DAYS PERFORMED BY: [place] [address] PATHOLOGIST FILM TECHNICIAN JENNIFER ALANIZ M.D. Normal [facility] Comment on above: Performed By: #### C MP, CBC, HS TROP, CK #### [address] Bacteria identified Cx Nom (Bld) NO GROWTH 5 DAYS PERFORMED BY: [place] [address] PATHOLOGIST FILM TECHNICIAN JENNIFER ALANIZ M.D. Normal [facility] Comment on above: Performed By: #### C MP, CBC, HS TROP, CK #### [address] angio chest PE protocolon 12-27-2023 CT angio chest PE protocol [place] [address] CT Scan Report Signed Patient: Bhupendra Rubi MR#: [id number] 306 : 1950 Acct:[id number] Age/Sex: 73 / F ADM Date: 12/27/23 Loc: ER Room: Type: [facility] ER Attending Dr: Copies to: Bernardino Gifford [...] Adam Berger M.D.12/27/2023 12:14 PM Dictation Location: [place] [address] Transcribed By: [facility] 12/27/23 1214 Dictated By: Adam Berger DO 12/27/23 1210 Signed By: 12/27/23 1214 Normal [facility] Calcium [Mass/volume] in Ser um or PlasmaOrdered By: Bernardino Gifford on 12-27-2023 Calcium [Mass/Vol] 9.3 mg/dL Normal 8.6-10.3 [facility] Comment on above: Performed By: #### C MP, CBC, HS TROP, CK #### [facility] [address] [place] [address] [place] Carbon dioxide, total [Moles /volume] in Serum or PlasmaOrdered By: Bernardino Gifford on 12-27-2023 CO2 [Moles/Vol] 26.9 mmol/L Normal 21.0-31.0 [facility] Comment on above: Performed By: #### C MP, CBC, HS TROP, CK #### [facility] [address] [place] [address] [place] Chloride [Moles/volume] in S [place] or PlasmaOrdered By: Bernardino Gifford on 12-27-2023 Chloride [Moles/Vol] 104 mmol/L Normal 98-107 [facility] Comment on above: Performed By: #### C MP, CBC, HS TROP, CK #### [address] Color of Urine by AutoOrdere d By: Bernardino Gifford on 12-27-2023 Color (U) Yellow Normal Yellow [facility] Comment on above: Order Comment: Name Collection Type:: Clean-Voided Midstream Performed By: #### A DDONUAPLUS, CUU #### [address] Complete Blood Count Auto Di ffon 12-27-2023 Mean Corpuscular HGB Conc 33.0 g/dL Normal 32.0-35.0 [facility] Comment on above: Performed By: #### C MP, CBC, HS TROP, CK #### [address] Monocytes/100 WBC (Bld) 19.53 % Normal 0.00-20.00 [facility] Comment on above: Performed By: #### C MP, CBC, HS TROP, CK #### [address] NRBC% 0.1 /100{WBC} Normal 0-0.5 [facility] Comment on above: Performed By: #### C MP, CBC, HS TROP, CK #### [address] Comprehensive Metabolic Pane agata 12-27-2023 Albumin [Mass/Vol] 4.0 g/dL Normal 3.5-5.7 [facility] Comment on above: Performed By: #### C MP, CBC, HS TROP, CK #### [address] Creatinine Clr Calc Pharmacy 50.59 Normal [facility] Comment on above: Result Comment: PERF ORMED BY: [place] [address] PATHOLOGIST FILM TECHNICIAN JENNIFER ALANIZ M.D. Performed By: #### C MP, CBC, HS TROP, CK #### [address] [place] [address] [place] GFR/1.73 sq M.predicted MDRD (S/P/Bld) [Vol rate/Area] mL/min/{1.73_m2} Normal [facility] Comment on above: Performed By: #### C MP, CBC, HS TROP, CK #### [facility] [address] Creatine kinase [Enzymatic a ctivity/volume] in Serum or PlasmaOrdered By: Bernardino Gifford on 12-27-2023 CK [Catalytic activity/Vol] 41 U/L Normal 30-223 [facility] Comment on above: Performed By: #### C MP, CBC, HS TROP, CK #### [facility] [address] Creatinine [Mass/volume] in Serum or PlasmaOrdered By: Bernardino Gifford on 12-27-2023 Creatinine [Mass/Vol] 0.94 mg/dL Normal 0.60-1.20 [facility] Comment on above: Performed By: #### C MP, CBC, HS TROP, CK #### [place] [id number] [facility] D-Dimer High Sensitivityon 0 12-27-2023 D-Dimer High Sensitivity 480 ng/mL High 0-243 [facility] Comment on above: Result [...] coagulation studies. Please contact the laboratory at [phone] for redraw instructions. PERFORMED BY: [address] [address] PATHOLOGIST FILM TECHNICIAN JENNIFER ALANIZ M.D. Performed By: #### C MP, CBC, HS TROP, CK #### [facility] [address] [place] [address] [place] Dipstick and Microscopicon 0 12-27-2023 Bacteria,Urine 1+ High None Seen [facility] Comment on above: Order Comment: Name Collection Type:: Clean-Voided Midstream Result Comment: Micr oscopic results may be affected due to low specimen volume. PERFORMED BY: [place] [address] PATHOLOGIST FILM TECHNICIAN JENNIFER ALANIZ M.D. Performed By: #### A DDONUAPLUS, CUU #### [place] [address] [place] Bilirubin,Urine Negative Normal Negative [facility] Comment on above: Order Comment: Name Collection Type:: Clean-Voided Midstream Performed By: #### A DDONUAPLUS, CUU #### [place] [address] [place] Glucose Ql (U) Normal Normal Normal [facility] Comment on above: Order Comment: Name Collection Type:: Clean-Voided Midstream Performed By: #### A DDONUAPLUS, CUU #### [place] [address] [place] Nitrite,Urine Negative Normal Negative [facility] Comment on above: Order Comment: Name Collection Type:: Clean-Voided Midstream Performed By: #### A DDONUAPLUS, CUU #### [place] [address] [place] Occult Blood,Urine Negative Normal Negative [facility] Comment on above: Order Comment: Name Collection Type:: Clean-Voided Midstream Result Comment: PERF ORMED BY: [place] [address] PATHOLOGIST FILM TECHNICIAN JENNIFER ALANIZ M.D. Performed By: #### A DDONUAPLUS, CUU #### [place] [address] [place] Protein,Urine Negative Normal Negative [facility] Comment on above: Order Comment: Name Collection Type:: Clean-Voided Midstream Performed By: #### A DDONUAPLUS, CUU #### [address] RBC,Urine None Seen Normal 0-4 [facility] Comment on above: Order Comment: Name Collection Type:: Clean-Voided Midstream Result Comment: Micr oscopic results may be affected due to low specimen volume. Performed By: #### A DDONUAPLUS, CUU #### [address] Specificy Anatone,Urine 1.043 High 1.00 1-1.03 0 [facility] Comment on above: Order Comment: Name Collection Type:: Clean-Voided Midstream Performed By: #### A DDONUAPLUS, CUU #### [place] [address] [place] Squamous Epithelial Cell,Urine 5-9 High 0-2 [facility] Comment on above: Order Comment: Name Collection Type:: Clean-Voided Midstream Result Comment: Micr oscopic results may be affected due to low specimen volume. Performed By: #### A DDONUAPLUS, CUU #### [address] Urobilinogen,Urine Normal Normal Normal [facility] Comment on above: Order Comment: Name Collection Type:: Clean-Voided Midstream Performed By: #### A DDONUAPLUS, CUU #### [place] [address] [place] WBC,Urine 5-9 High 0-4 [facility] Comment on above: Order Comment: Name Collection Type:: Clean-Voided Midstream Result Comment: Micr oscopic results may be affected due to low specimen volume. Performed By: #### A DDONUAPLUS, CUU #### [address] ECG 12 lead ECGon 12-27-2023 ECG 12 lead ECG [facility] [place] [address] [place] [address] Electrocardiograph Report Signed Patient: Bhupendra Rubi MR#: [id number] 306 : 1950 Acct:[id number] Age/Sex: 73 / F ADM Date: 12/27/23 Loc: ER Room: Type: [facility] ER Attending Dr: Ordering Provider: Bernardino Gifford [...] By Bernardino Gifford MD 12/11 Normal [facility] Epithelial cells.squamous [# /area] in Urine sediment by Microscopy high power fieldOrdered By: Bernardino Gifford on 12-27-2023 Epithelial cells.squamous LM.HPF (Urine sed) [#/Area] 5-9 [HPF] 0-2 [facility] Comment on above: Microscopic results may be affected due to low specimen volume. Erythrocyte distribution wid th [Ratio] by Automated countOrdered By: Bernardino Gifford on 12-27-2023 Erythrocyte distribution width (RBC) [Ratio] 15.6 % High 11.9-15.3 [facility] Comment on above: Performed By: #### C MP, CBC, HS TROP, CK #### [facility] [address] [place] [address] [place] Erythrocytes [#/area] in Uri ne sediment by Microscopy high power fieldOrdered By: Bernardino Gifford on 12-27-2023 RBC LM.HPF (Urine sed) [#/Area] None seen [HPF] 0-4 [facility] Comment on above: Microscopic results may be affected due to low specimen volume. Erythrocytes [#/volume] in B lood by Automated countOrdered By: Bernardino Gifford on 12-27-2023 RBC (Bld) [#/Vol] 5.03 10*6/uL High 3.60-5.00 [facility] Comment on above: Performed By: #### C MP, CBC, HS TROP, CK #### [facility] [address] Fecal occult blood detection by immunochemistryOrdered By: Bernardino Gifford on 12-27-2023 Hemoglobin.gastrointesti nal Ql (Stl) [facility] Fibrin D-dimer [Presence] in Platelet poor plasma by Latex agglutinationOrdered By: Bernardino Gifford on 12-27-2023 Fibrin D-dimer LA Ql (PPP) 480 ng/mL 0-243 [facility] Comment on above: The reference [...] coagulation studies. Please contact the laboratory at [phone] for redraw instructions. Glucose [Mass/volume] in Ser um or PlasmaOrdered By: Bernardino Gifford on 12-27-2023 Glucose [Mass/Vol] 120 mg/dL High 70-100 [facility] Comment on above: ADA recommended refe rence rangeRandom Glucose Reference Range is dependent on time and content of last meal. Glucose of more than 200 mg/dL in a nonstressed, ambulatory subject supports the diagnosis of Diabetes Mellitus. Result Comment: [place] om Glucose Reference Range is dependent on time and content of last meal. Glucose of more than 200 mg/dL in a nonstressed, ambulatory subject supports the diagnosis of Diabetes Mellitus. ADA recommended reference range Performed By: #### C MP, CBC, HS TROP, CK #### [facility] [address] Glucose [Mass/volume] in Uri ne by Test stripOrdered By: Bernardino Gifford on 12-27-2023 Glucose Test strip (U) [Mass/Vol] Normal mg/dL Normal [facility] Hematocrit [Volume Fraction] of Blood by Automated countOrdered By: Bernardino Gifford on 12-27-2023 Hematocrit (Bld) [Volume fraction] 44.0 % Normal 34.0-46.4 [facility] Comment on above: Performed By: #### C MP, CBC, HS TROP, CK #### [facility] [address] [place] [address] Hemoglobin Test strip Ql (U) Ordered By: Bernardino Gifford on 12-27-2023 Hemoglobin Ql (U) Negative Negative [facility] Hemoglobin [Mass/volume] in BloodOrdered By: Bernardino Gifford on 12-27-2023 Hemoglobin (Bld) [Mass/Vol] 14.5 g/dL Normal 11.8-15.4 [facility] Comment on above: Performed By: #### C MP, CBC, HS TROP, CK #### [facility] [address] [place] [address] INR in Platelet poor plasma by Coagulation assayOrdered By: Bernardino Gifford on 12-27-2023 INR Coag (PPP) [Relative time] 1.0 {INR} Normal [facility] Comment on above: INR Therapeutic [...] C MP, CBC, HS TROP, CK #### [facility] [address] [place] [address] [place] Ketones [Presence] in Urine by Test stripOrdered By: Bernardino Gifford on 12-27-2023 Ketones Ql (U) Negative Normal Negative [facility] Comment on above: Order Comment: Name Collection Type:: Clean-Voided Midstream Performed By: #### A DDONUAPLUS, CUU #### [facility] [address] [place] [address] [place] Lactate [Moles/volume] in Se rum or PlasmaOrdered By: Bernardino Gifford on 12-27-2023 Lactate [Moles/Vol] 1.6 mmol/L Normal 0.5-2.2 [facility] Comment on above: Result Comment: PERF ORMED BY: [place] [address] PATHOLOGIST FILM TECHNICIAN JENNIFER ALANIZ M.D. Performed By: #### C MP, CBC, HS TROP, CK #### [place] [address] [place] Leukocyte esterase [Presence ] in Urine by Test stripOrdered By: Bernardino Gifford on 12-27-2023 Leukocyte esterase Test strip Ql (U) 4+ High Negative [facility] Comment on above: Order Comment: Name Collection Type:: Clean-Voided Midstream Performed By: #### A DDONUAPLUS, CUU #### [place] [address] [place] Leukocytes [#/area] in Urine sediment by Microscopy high power fieldOrdered By: Bernardino Gifford on 12-27-2023 WBC LM.HPF (Urine sed) [#/Area] 5-9 [HPF] 0-4 [facility] Comment on above: Microscopic results may be affected due to low specimen volume. Leukocytes [#/volume] correc pilar for nucleated erythrocytes in Blood by Automated counOrdered By: Bernardino Gifford on 12-27-2023 WBC corrected for nucl RBC Auto (Bld) [#/Vol] 13.4 10*3/uL 3.8-11.6 [facility] Leukocytes [#/volume] in Blo od by Automated countOrdered By: Bernardino Gifford on 12-27-2023 WBC (Bld) [#/Vol] 13.4 10*3/uL High 3.8-11.6 [facility] Comment on above: Performed By: #### C MP, CBC, HS TROP, CK #### [facility] [address] Lymphocytes [#/volume] in Bl ood by Automated countOrdered By: Bernardino Gifford on 12-27-2023 Lymphocytes (Bld) [#/Vol] 3.7 10*3/uL Normal 1.00-4.8 [facility] Comment on above: Performed By: #### C MP, CBC, HS TROP, CK #### [address] Lymphocytes/100 leukocytes i n Blood by Automated countOrdered By: Bernardino Gifford on 12-27-2023 Lymphocytes/100 WBC (Bld) 27.4 % Normal . [facility] Comment on above: Performed By: #### C MP, CBC, HS TROP, CK #### [facility] [address] [place] [address] MCH [Entitic mass] by Automa pilar countOrdered By: Bernardino Gifford on 12-27-2023 MCH (RBC) [Entitic mass] 28.9 pg Normal 24.7-34.3 [facility] Comment on above: Performed By: #### C MP, CBC, HS TROP, CK #### [facility] [address] [place] [address] MCHC Auto (RBC) [Mass/Vol]Or dered By: Bernardino Gifford on 12-27-2023 MCHC (RBC) [Mass/Vol] 33.0 g/dL 32.0-35.0 [facility] MCV [Entitic volume] by Auto mated countOrdered By: Bernardino Gifford on 12-27-2023 MCV (RBC) [Entitic vol] 87.6 fL Normal 80-100 F [facility] Comment on above: Performed By: #### C MP, CBC, HS TROP, CK #### [address] [place] [address] [facility] Monocyte distribution width [Entitic volume] in Blood by AutomatedOrdered By: Bernardino Gifford on 12-27-2023 Monocyte distribution width Auto (Bld) [Entitic vol] 19.53 % 0.00-20.00 [facility] Neutrophils [#/volume] in Bl ood by Automated countOrdered By: Bernardino Gifford on 12-27-2023 Neutrophils (Bld) [#/Vol] 8.3 10*3/uL High 1.8-7.7 [facility] Comment on above: Performed By: #### C MP, CBC, HS TROP, CK #### [facility] [address] Nitrite Test strip Ql (U)Ord ered By: Bernardino Gifford on 12-27-2023 Nitrite Ql (U) Negative Negative [facility] No Panel InformationOrdered By: Bernardino Gifford on 12-27-2023 Arterial Blood Base Excess -2.4 mmol/L -3.0-3.0 [facility] Arterial Blood Oxygen Content 7.5 mmol/L 6.6-9.7 [facility] Arterial Blood Oxygen Saturation 95.5 % 95.0-100.0 [facility] Arterial Blood Partial Pressure CO2 46.7 mm[Hg] 35.0-45.0 [facility] Arterial Blood Partial Pressure O2 84.0 mm[Hg] 80.0-100.0 [facility] Arterial Blood pH 7.33 7.35-7.45 [facility] Blood Gas Critical Value See comment [facility] Comment on above: Critical Value chaves d on: 12/27/2023 at 11:36 Blood Gas Liter Flow 3 L/min [facility] Blood Gas Sample Site Left radial [facility] FiO2 32 % [facility] Oxygen Delivery Device Nasal cannula [facility] Estimated GFR (CKD-EPI) > 60.0 mL/Min [facility] Creatinine Clearance (Chem 50.59 [facility] Nucleated erythrocytes [Pres ence] in Blood by Automated countOrdered By: Bernardino Gifford on 12-27-2023 Nucleated RBC Auto Ql (Bld) 0.1 /100{WBC} 0-0.5 [facility] Partial Thromboplastin Timeo n 12-27-2023 aPTT Coag (Bld) [Time] 24.6 s Low 25.1-36.5 Th e [facility] Comment on above: Result Comment: A he matocrit value greater than 55% may lead to inaccurate results in coagulation testing. Patients having hematocrit values >55% require a special collection tube for coagulation studies. Please contact the laboratory at [phone] for redraw instructions. Performed By: #### C MP, CBC, HS TROP, CK #### [facility] [address] Platelet mean volume [Entiti c volume] in Blood by Automated countOrdered By: Bernardino Gifford on 12-27-2023 Platelet mean volume (Bld) [Entitic vol] 8.3 fL Normal 6.3-10.7 [facility] Comment on above: Performed By: #### C MP, CBC, HS TROP, CK #### [facility] [address] [place] [address] Platelets [#/volume] in Bloo d by Automated countOrdered By: Bernardino Gifford on 12-27-2023 Platelets (Bld) [#/Vol] 399 10*3/uL Normal 150-450 [facility] Comment on above: Performed By: #### C MP, CBC, HS TROP, CK #### [facility] [address] [place] [address] Potassium [Moles/volume] in Serum or PlasmaOrdered By: Bernardino Gifford on 12-27-2023 Potassium [Moles/Vol] 3.7 mmol/L Normal 3.5-5.1 [facility] Comment on above: Performed By: #### C MP, CBC, HS TROP, CK #### [place] [address] [place] Protein Test strip (U) [Mass /Vol]Ordered By: Bernardino Gifford on 12-27-2023 Protein (U) [Mass/Vol] Negative Negative [facility] Protein [Mass/volume] in Ser um or PlasmaOrdered By: Bernardino Gifford on 12-27-2023 Protein [Mass/Vol] 6.8 g/dL Normal 6.4-8.9 [facility] Comment on above: Performed By: #### C MP, CBC, HS TROP, CK #### [address] Prothrombin time (PT)Ordered By: Bernardino Gifford on 12-27-2023 PT Coag (PPP) [Time] 11.5 s Normal 9.0-12.9 [facility] Comment on above: A hematocrit value g reater than 55% may lead to inaccurate results in coagulation testing. Patients having hematocrit values >55% require a special collection tube for coagulation studies. Please contact the laboratory at [phone] for redraw instructions. Result Comment: A he matocrit value greater than 55% may lead to inaccurate results in coagulation testing. Patients having hematocrit values >55% require a special collection tube for coagulation studies. Please contact the laboratory at [phone] for redraw instructions. Performed By: #### C MP, CBC, HS TROP, CK #### [address] Serum globulin measurement b y calculation (mass/volume)Ordered By: Bernardino Gifford on 12-27-2023 Globulin (S) [Mass/Vol] 2.8 g/dL Normal [facility] Comment on above: Performed By: #### C MP, CBC, HS TROP, CK #### [address] Serum or plasma albumin/glob ulin mass ratioOrdered By: Bernardino Gifford on 12-27-2023 Albumin/Globulin [Mass ratio] 1.4 {ratio} Normal [facility] Comment on above: Performed By: #### C MP, CBC, HS TROP, CK #### [address] Serum or plasma anion gap de terminationOrdered By: Bernardino Gifford on 12-27-2023 Anion gap [Moles/Vol] 12.8 mmol/L Normal 6.0-15.0 [facility] Comment on above: Performed By: #### C MP, CBC, HS TROP, CK #### [place] [address] [place] Sodium [Moles/volume] in Ser um or PlasmaOrdered By: Bernardino Gifford on 12-27-2023 Sodium [Moles/Vol] 140 mmol/L Normal 136-145 [facility] Comment on above: Performed By: #### C MP, CBC, HS TROP, CK #### [facility] [address] [place] [address] Specific gravity Test strip (U) [Rel density]Ordered By: Bernardino Gifford on 12-27-2023 Specific gravity (U) [Rel density] 1.043 1.001-1.03 0 [facility] Stool Occult Blood (Guaiac)o n 12-27-2023 Stool Occult Blood (Guaiac) Occult Blood Negative for Occult Blood by Guaiac Methodology ---- Reference range = Negative PERFORMED BY: [place] [address] PATHOLOGIST FILM TECHNICIAN JENNIFER ALANIZ M.D. Normal [facility] Comment on above: Performed By: #### O B(GUAIAC) #### [address] Troponin I High Sensitivityo n 12-27-2023 Troponin I High Sensitivity < 2.3 Normal 0.0-15.0 [facility] Comment on above: Result Comment: PERF ORMED BY: [place] [address] PATHOLOGIST FILM TECHNICIAN JENNIFER ALANIZ M.D. Performed By: #### C MP, CBC, HS TROP, CK #### [address] Troponin I.cardiac [Mass/vol ume] in Serum or Plasma by Detection limit <= 0.01 ng/Ordered By: Bernardino Gifford on 12-27-2023 Troponin I.cardiac DL <= 0.01 ng/mL [Mass/Vol] < 2.3 pg/mL 0.0-15.0 [facility] Type and Screenon 12-27-2023 ABO and Rh group Nom (Bld) Blood group A Rh(D) positive Normal [facility] Urea nitrogen [Mass/volume] in Serum or PlasmaOrdered By: Bernardino Gifford on 12-27-2023 Urea nitrogen [Mass/Vol] 13 mg/dL Normal 7-25 [facility] Comment on above: Performed By: #### C MP, CBC, HS TROP, CK #### [facility] [address] [place] [address] Urine Cultureon 12-27-2023 Bacteria identified Cx Nom (U) 50,000 colonies/ml mixed bacterial skin contaminants 2 Days PERFORMED BY: [place] [address] PATHOLOGIST FILM TECHNICIAN JENNIFER ALANIZ M.D. Normal [facility] Comment on above: Performed By: #### A DDONUAPLUS, CUU #### [address] Urine appearanceOrdered By: Bernardino Gifford on 12-27-2023 Appearance (U) Cloudy Critically abnormal Clear [facility] Comment on above: Order Comment: Name Collection Type:: Clean-Voided Midstream Performed By: #### A DDONUAPLUS, CUU #### [address] Urine culture routineOrdered By: Bernardino Gifford on 12-27-2023 Bacteria identified Cx Nom (U) 2 Days [facility] Urobilinogen Test strip (U) [Mass/Vol]Ordered By: Bernardino Gifford on 12-27-2023 Urobilinogen (U) [Mass/Vol] Normal mg/dL Normal [facility] XR chest 1V portableon 12-26 XR chest 1V portable [place] [address] XRay Report Signed Patient: Bhupendra Rubi MR#: [id number] : 1950 Acct:[id number] Age/Sex: 73 / F ADM Date: 12/27/23 [...] Adam Berger M.D.12/27/2023 12:16 PM Dictation Location: [place] [address] Transcribed By: [facility] 12/27/23 1216 Dictated By: Adam Berger DO 12/27/23 1204 Signed By: 12/27/23 1216 Normal [facility] pH of Urine by Test stripOrd ered By: Bernardino Gifford on 12-27-2023 pH (U) 6.0 [pH] Normal 5.0-9.0 [facility] Comment on above: Order Comment: Name Collection Type:: Clean-Voided Midstream Performed By: #### A DDETTA AGU #### [facility] [address] [place] [id number] [facility] Provider Letteron 06-23-2023 Provider Letter (Inserted Image. Es ble to display) June 23, 2023 BHUPENDRA RUBI [address] [place] [id number] : 1950 Dear Bhupendra, We are reaching out to inform you that Dr. Turner is now approved and credentialed with your insurance. Please call our office at your earliest convenience to schedule the EGD that was recommended at your last visit. Thank you for your prompt attention to this matter. Sincerely, [facility] [phone] [facility] US carotid doppler BIon 09- US carotid doppler BI [facility] [place] [address] [place] [address] Ultrasound Report Signed Patient: Bhupendra Rubi MR#: [id number] 6 : 1950 Acct:[id number] Age/Sex: 72 / U ADM Date: 03/25/23 Loc: [facility] Room: Type: [facility] Attending Dr: Cherelle Bautista DOCUMENTATION SPEC-C Ordering Provider: Cherelle Bautista APRN Date of [...] Nigel Valladares MD03/25/2023 1:50 PM Dictation Location: [place] [address] Tech: Yakelin Gibson Transcribed By: [facility] 03/25/23 135 Dictated By: Nigel Valladares MD 03/25/231349 Signed By: 03/25/23 135 Normal [facility] CHEMISTRYOrdered By: [employer] on 01-01-2023 Ferritin [Mass/Vol] 20 ng/mL [...] 61 mL/min/1.73 m2 Normal >=59mL/min /1.73 m2 [facility] Chem S Globulin (S) [Mass/Vol] 3.5 g/dL [...] 11-11-2022 BASO # 0.1 103/ul Normal 0.0-0.1 [facility] Comment on above: Performed By: #### C BC #### [facility] [address] [place] [address] [address] Anisa Gomez Basophils/100 WBC (Bld) 0.5 % Normal 0.2-2.0 [facility] Comment on above: Performed By: #### C BC #### [facility] [address] [place] [address] [address] Anisa Gomez EO # 0.1 103/ul Normal 0.0-0.7 [facility] Comment on above: Performed By: #### C BC #### [facility] [address] [place] [address] Dr. Anisa Gomez Eosinophils/100 WBC (Bld) 0.8 % Critically low 0.9-7.0 [facility] Comment on above: Performed By: #### C BC #### [facility] [address] [place] [address] Dr. Anisa Gomez Erythrocyte distribution width (RBC) [Ratio] 15.2 % Critically high 11.0-15.0 [facility] Comment on above: Performed By: #### C BC #### [facility] [address] [place] [address] Dr. Anisa Gomez Hematocrit (Bld) [Volume fraction] 48.8 % Critically high 36.0-48.0 [facility] Comment on above: Performed By: #### C BC #### [facility] [address] [place] [address] Dr. Anisa Gomez Hemoglobin (Bld) [Mass/Vol] 15.8 g/dL Normal 12.0-16.0 [facility] Comment on above: Performed By: #### C BC #### [facility] [address] [place] [address] Dr. Anisa Gomez IG # 0.03 10e3/ul Normal 0.00-0.03 [facility] Comment on above: Performed By: #### C BC #### [facility] [address] [place] [address] Dr. Anisa Gomez IG % 0.2 % Normal 0.0-0.5 [facility] Comment on above: Performed By: #### C BC #### [facility] [address] [place] [address] Dr. Anisa Gomez LYMPH # 3.2 103/ul Normal 1.2-3.8 [facility] Comment on above: Performed By: #### C BC #### [facility] [address] [place] [address] Dr. Anisa Gomez Lymphocytes/100 WBC (Bld) 21.9 % Normal 20.5-60.0 [facility] Comment on above: Performed By: #### C BC #### [facility] [address] [place] [address] Dr. Anisa Gomez MANUAL DIFF REQ NO Normal [facility] Comment on above: Performed By: #### C BC #### [facility] [address] [place] [address] Dr. Anisa Gomez MCH (RBC) [Entitic mass] 29.9 pg Normal 26.7-34.0 [facility] Comment on above: Performed By: #### C BC #### [facility] [address] [place] [address] Dr. Anisa Gomez MCHC (RBC) [Mass/Vol] 32.4 g/dL Normal 29.9-35.2 [facility] Comment on above: Performed By: #### C BC #### [facility] [address] [place] [address] Dr. Anisa Gomez MCV (RBC) [Entitic vol] 92.2 fL Normal 81.0-99.0 [facility] Comment on above: Performed By: #### C BC #### [facility] [address] [place] [address] Dr. Anisa Gomez MONO # 1.2 103/ul Critically high 0.3-0.8 [facility] Comment on above: Performed By: #### C BC #### [facility] [address] [place] [address] Dr. Anisa Gomez Monocytes/100 WBC (Bld) 8.0 % Normal 1.7-12.0 [facility] Comment on above: Performed By: #### C BC #### [facility] [address] [place] [address] Dr. Anisa Gomez NEUT # 9.9 103/ul Critically high 1.4-6.5 [facility] Comment on above: Performed By: #### C BC #### [facility] [address] [place] [address] Dr. Anisa Gomez Neutrophils/100 WBC (Bld) 68.6 % Normal 43.0-75.0 [facility] Comment on above: Performed By: #### C BC #### [facility] [address] [place] [address] Dr. Anisa Gomez Platelet mean volume (Bld) [Entitic vol] 10.6 fL Normal 9.5-13.5 [facility] Comment on above: Performed By: #### C BC #### [facility] [address] [place] [address] Dr. Anisa Gomez PLT 336 103/ul Normal 150-450 [facility] Comment on above: Performed By: #### C BC #### [facility] [address] [place] [address] Dr. Anisa Gomez RBC 5.29 106/ul Normal 4.20-5.40 [facility] Comment on above: Performed By: #### C BC #### [facility] [address] [place] [address] Dr. Anisa Gomez WBC 14.4 103/ul Critically high 4.0-11.0 [facility] Comment on above: Performed By: #### C BC #### [facility] [address] [place] [address] Dr. Anisa Gomez CTA ABD/PELVIS WO W [...] by: LAYNE HO Date: 2022-11-11 18:26 Normal [facility] CTA CHEST WO W CONon 023 [...] ANDRES UNLU Date: 2022-11-11 17:48 Normal [facility] ER URINE PROFILEon 3 Bilirubin Ql (U) Negative Normal NEGATIVE [facility] Comment on above: Performed By: #### E RUR ####[facility] [address] [place], [place] [address]Dr. Anisa Gomez Clarity (U) CLEAR Normal CLEAR [facility] Comment on above: Performed By: #### E RUR ####[facility] [address] [place], [place] [address]Dr. Anisa Gomez Color (U) LT. YELLOW Normal YELLOW [facility] Comment on above: Performed By: #### E RUR ####[facility] [address] [place], [place] [address]Dr. Anisa Gomez ERUAHD A micrscopic examina tion will be performed if indicated. Normal [facility] Comment on above: Performed By: #### E RUR ####[facility] [address] [place], [place] [address]Dr. Anisa Gomez Glucose Ql (U) Negative Normal NEGATIVE [facility] Comment on above: Performed By: #### E RUR ####[facility] [address] [place], [place] [address]Dr. Anisa Gomez Hemoglobin Ql (U) Negative Normal NEGATIVE [facility] Comment on above: Performed By: #### E RUR ####[facility] [address] [place] [address]Dr. Anisa Gomez Ketones Ql (U) Negative Normal NEGATIVE [facility] Comment on above: Performed By: #### E RUR ####[facility] [address] [place] [address]Dr. Anisa Gomez LEUKOCYTES Negative Normal NEGATIVE [facility] Comment on above: Performed By: #### E RUR ####[facility] [address] [place], [place] [address]Dr. Anisa Gomez Nitrite Ql (U) Negative Normal NEGATIVE [facility] Comment on above: Performed By: #### E RUR ####[facility] [address] [place], [place] [address]Dr. Anisa Gomez pH (U) 5.5 [pH] Normal 5-9 [facility] Comment on above: Performed By: #### E RUR ####[facility] [address] [place], [place] [address]Dr. Anisa Gomez SPEC GRAVITY >=1.030 Abnormal 1.005-<=1. 025 [facility] Comment on above: Performed By: #### E RUR ####[facility] [address] [place], [place] [address]Dr. Anisa Gomez UA PROTEIN Negative Normal NEGATIVE/ TRACE [facility] Comment on above: Performed By: #### E RUR ####[facility] [address] [place], [place] [address]Dr. Anisa Gomez UR MICRO IND NOT INDICATED Normal [facility] Comment on above: Performed By: #### E RUR ####[facility] [address] [place], [place] [address]Dr. Anisa Gomez Urobilinogen Qn (U) 0.2 {Agustin'U}/dL Normal 0.2 - 1. 0 [facility] Comment on above: Performed By: #### E RUR ####[facility] [address] [place], [place] [address]Dr. Anisa Gomez LIPASEon 05-02-2023 Lipase [Catalytic activity/Vol] 100.0 U/L Normal 73.0-393.0 [facility] Comment on above: Performed By: #### Debbi OVALLE LIPA #### [facility] [address] [place] [address] Dr. Anisa Gomez LIVER PROFILEon 11-11-2022 Albumin [Mass/Vol] 3.8 g/dL Normal 3.4-5.0 [facility] Comment on above: Performed By: #### L YAMILE LIPA #### [facility] [address] [place] [address] Dr. Anisa Gomez Albumin/Globulin [Mass ratio] 0.9 {ratio} Normal [facility] Comment on above: Performed By: #### Debbi OVALLE LIPA #### [facility] [address] [place] [address] Dr. Anisa Gomez ALP [Catalytic activity/Vol] 107 U/L Normal 46-116 [facility] Comment on above: Performed By: #### Debbi OVALLE LIPA #### [facility] [address] [place] [address] Dr. Anisa Gomez ALT [Catalytic activity/Vol] 25 U/L Normal 14-59 [facility] Comment on above: Performed By: #### Debbi OVALLE LIPA #### [facility] [address] [place] [address] Dr. Anisa Gomez AST [Catalytic activity/Vol] 25 U/L Normal 15-37 [facility] Comment on above: Performed By: #### L YAMILE LIPA #### [facility] [address] [place] [address] Dr. Anisa Gomez BILI, CONJUGATED 0.1 mg/dL Normal 0.0-0.2 [facility] Comment on above: Performed By: #### L YAMILE, LIPA #### [facility] [address] [place] [address] Dr. Anisa Gomez Bilirubin [Mass/Vol] 0.5 mg/dL Normal 0.2-1.0 [facility] Comment on above: Performed By: #### L JANET OVALLE #### [facility] [address] [place] [address] Dr. Anisa Gomez Globulin (S) [Mass/Vol] 4.0 g/dL Normal T [facility] Comment on above: Performed By: #### L JANET OVALLE #### [facility] [address] [place] [address] Dr. Anisa Gomez Protein [Mass/Vol] 7.8 g/dL Normal 6.4-8.2 [facility] Comment on above: Performed By: #### L JANET OVALLE #### [facility] [address] [place] [address] Dr. Anisa Gomez PROF CHEM 8 (BAS METB)on Anion gap [Moles/Vol] 13.2 mmol/L Normal [facility] Comment on above: Performed By: #### B MP #### [facility] [address] [place] [address] Dr. Anisa Gomez Calcium [Mass/Vol] 9.4 mg/dL Normal 8.5-10.1 [facility] Comment on above: Performed By: #### B MP #### [facility] [address] [place] [address] Dr. Anisa Gomez Chloride [Moles/Vol] 103 mmol/L Normal 98-107 [facility] Comment on above: Performed By: #### B MP #### [facility] [address] [place] [address] Dr. Anisa Gomez CO2 [Moles/Vol] 29.3 mmol/L Normal 21.0-32.0 [facility] Comment on above: Performed By: #### B MP #### [facility] [address] [place] [address] Dr. Anisa Gomez Creatinine [Mass/Vol] 1.02 mg/dL Normal 0.55-1.02 [facility] Comment on above: Performed By: #### B MP #### [facility] [address] [place] [address] Dr. Anisa Gomez EGFR-AF FINNISH 60 mL/min/1.73m2 Normal >=60 [facility] Comment on above: Performed By: #### B MP #### [facility] [address] [place] [address] [address] Anisa Gomez EGFR-NON AF FINNISH 54 mL/min/1.73m2 Critically low >=60 [facility] Comment on above: Performed By: #### B MP #### [facility] [address] [place] [address] [address] Anisa Gomez Glucose [Mass/Vol] 102 mg/dL Normal 74-106 [facility] Comment on above: Performed By: #### B MP #### [facility] [address] [place] [address] [address] Anisa Gomez Potassium [Moles/Vol] 4.5 mmol/L Normal 3.5-5.1 [facility] Comment on above: Performed By: #### B MP #### [facility] [address] [place] [address] [address] Anisa Gomez Sodium [Moles/Vol] 141 mmol/L Normal 136-145 [facility] Comment on above: Performed By: #### B MP #### [facility] [address] [place] [address] [address] Anisa Gomez Urea nitrogen [Mass/Vol] 16.0 mg/dL Normal 7.0-18.0 [facility] Comment on above: Performed By: #### B MP #### [facility] [id number] Anisa Gomez Urea nitrogen/Creatinine [Mass ratio] 15.7 mg/mg Normal [facility] Comment on above: Performed By: #### B MP #### [facility] [id number] Anisa Gomez [address] CHEST WO CONon [...] is recommended for better evaluation. Normal [facility] HEMOGLOBINon 10-27-2022 Hemoglobin (Bld) [Mass/Vol] 14.5 g/dL Normal 12.0-16.0 [facility] Comment on above: Performed By: #### H GB ####[facility] [address] [place], [place] [address] LUNG CANCER SCREENINGon 0 [...] CLAUDIO CERVANTES Date: 2022-07-24 17:20 Normal [facility] MAMM SCREEN 3D BRISSA CADon 07-09-2022 MAMM SCREEN 3D BRISSA CAD Patient: BHUPENDRA RUBI Exam Date: 07/09/2022 : 1950 Gender:F Ordering : SHAIKH Eddie HORAN . Admission #: [id number] Family : Order #: [id number] CLICK HERE TO VIEW EXAM RADIOLOGY REPORT [...] No Treatments None Family Cancers None LOCATION: [facility] BREAST COMPOSITION: Heterogeneously dense,which may obscure [...] Cervantes M.D. on 07/25/2022 at 08:51 Normal [facility] CBC AUTO DIFFon 05-07-2022 BASO # 0.1 103/ul Normal 0.0-0.1 [facility] Comment on above: Performed By: #### C BC #### [facility] [address] [place] [address] Dr. Anisa Gomez Basophils/100 WBC (Bld) 0.7 % Normal 0.2-2.0 [facility] Comment on above: Performed By: #### C BC #### [facility] [address] [place] [address] Dr. Anisa Gomez EO # 0.1 103/ul Normal 0.0-0.7 [facility] Comment on above: Performed By: #### C BC #### [facility] [address] [place] [address] Dr. Anisa Gomez Eosinophils/100 WBC (Bld) 0.6 % Critically low 0.9-7.0 [facility] Comment on above: Performed By: #### C BC #### [facility] [address] [place] [address] Dr. Anisa Gomez Erythrocyte distribution width (RBC) [Ratio] 14.9 % Normal 11.0-15.0 [facility] Comment on above: Performed By: #### C BC #### [facility] [address] [place] [address] Dr. Anisa Gomez Hematocrit (Bld) [Volume fraction] 48.4 % Critically high 36.0-48.0 [facility] Comment on above: Performed By: #### C BC #### [facility] [address] [place] [address] Dr. Anisa Gomez Hemoglobin (Bld) [Mass/Vol] 15.6 g/dL Normal 12.0-16.0 [facility] Comment on above: Performed By: #### C BC #### [facility] [address] [place] [address] Dr. Anisa Gomez IG # 0.02 10e3/ul Normal 0.00-0.03 [facility] Comment on above: Performed By: #### C BC #### [facility] [address] [place] [address] Dr. Anisa Gomez IG % 0.2 % Normal 0.0-0.5 [facility] Comment on above: Performed By: #### C BC #### [facility] [address] [place] [address] Dr. Anisa Gomez LYMPH # 2.9 103/ul Normal 1.2-3.8 [facility] Comment on above: Performed By: #### C BC #### [facility] [address] [place] [address] Dr. Anisa Gomez Lymphocytes/100 WBC (Bld) 28.6 % Normal 20.5-60.0 [facility] Comment on above: Performed By: #### C BC #### [facility] [address] [place] [address] Dr. Anisa Gomez MANUAL DIFF REQ NO Normal [facility] Comment on above: Performed By: #### C BC #### [facility] [address] [place] [address] Dr. Anisa Gomez MCH (RBC) [Entitic mass] 29.2 pg Normal 26.7-34.0 [facility] Comment on above: Performed By: #### C BC #### [facility] [address] [place] [address] Dr. Anisa Gomez MCHC (RBC) [Mass/Vol] 32.2 g/dL Normal 29.9-35.2 [facility] Comment on above: Performed By: #### C BC #### [facility] [address] [place] [address] Dr. Anisa Gomez MCV (RBC) [Entitic vol] 90.5 fL Normal 81.0-99.0 [facility] Comment on above: Performed By: #### C BC #### [facility] [address] [address] [address] Anisa Gomez MONO # 1.0 103/ul Critically high 0.3-0.8 [facility] Comment on above: Performed By: #### C BC #### [facility] [address] [place] [address] Dr. Anisa Gomez Monocytes/100 WBC (Bld) 9.5 % Normal 1.7-12.0 [facility] Comment on above: Performed By: #### C BC #### [facility] [address] [place] [address] Dr. Anisa Gomez NEUT # 6.2 103/ul Normal 1.4-6.5 [facility] Comment on above: Performed By: #### C BC #### [facility] [address] [place] [address] Dr. Anisa Gomez Neutrophils/100 WBC (Bld) 60.4 % Normal 43.0-75.0 [facility] Comment on above: Performed By: #### C BC #### [facility] [address] [place] [address] Dr. Anisa Gomez Platelet mean volume (Bld) [Entitic vol] 10.1 fL Normal 9.5-13.5 [facility] Comment on above: Performed By: #### C BC #### [facility] [address] [place] [address] Dr. Anisa Gomez PLT 403 103/ul Normal 150-450 [facility] Comment on above: Performed By: #### C BC #### [facility] [address] [place] [address] Dr. Anisa Gomez RBC 5.35 106/ul Normal 4.20-5.40 [facility] Comment on above: Performed By: #### C BC #### [facility] [address] [place] [address] Dr. Anisa Gomez WBC 10.2 103/ul Normal 4.0-11.0 [facility] Comment on above: Performed By: #### C BC #### [facility] [address] [place], [place] [address] Dr. Anisa Gomez LIPID PROFILEon 05-07-2022 CHOL-HDL RATIO NORM SEE BELOW Normal [facility] Comment on above: Result Comment: 3.3 - 4.4 LOW RISK 4.4 - 7.1 AVERAGE RISK 7.1 - 11.0 MODERATE RISK >11.0 HIGH RISK Performed By: #### L IPID, CMP ####[facility] [address] [id number]. Anisa Gomez Cholesterol [Mass/Vol] 242 mg/dL Critically high <=200 [facility] Comment on above: Performed By: #### L IPID, CMP ####[facility] [address] [address]DrCathy Gomez Cholesterol in HDL [Mass/Vol] 49 mg/dL Normal 40-60 [facility] Comment on above: Performed By: #### L IPID, CMP ####[facility] [address] [address]Dr. Anisa Gomez Cholesterol in LDL [Mass/Vol] 148.4 mg/dL Normal [facility] Comment on above: Performed By: #### L IPID, CMP ####[facility] [address] [id number]. Anisa Gomez Cholesterol.total/Choles terol in HDL [Mass ratio] 4.9 {ratio} Normal [facility] Comment on above: Performed By: #### L IPID, CMP ####[facility] [address] [id number]. Anisa Gomez HDL NORMAL > or = 60 mg/dl - LO W CARDIOVASCULAR RISK <40 mg/dl - HIGH CARDIOVASCULAR RISK Normal [facility] Comment on above: Performed By: #### L IPID, CMP ####[facility] [address] [address]Dr. Anisa Gomez LDL CALC NORMAL SEE BELOW Normal [facility] Comment on above: Result Comment: <100 mg/dl OPTIMAL 100 - 129 mg/dl NEAR OR ABOVE OPTIMAL 130 - 159 mg/dl BORDERLINE HIGH 160 - 189 mg/dl HIGH >190 mg/dl VERY HIGH Performed By: #### L IPID, CMP ####[facility] [address] [address]Dr. Anisa Gomez Triglyceride [Mass/Vol] 223 mg/dL Critically high <=150 [facility] Comment on above: Performed By: #### L IPID, CMP ####[facility] [address] [address]Dr. Anisa Gomez VLDL CALC 44.6 mg/dL Normal [facility] Comment on above: Performed By: #### L IPID, CMP ####[facility] [address] [address]Dr. Anisa Gomez PROF 14(COMP METB)on 022 Albumin [Mass/Vol] 3.6 g/dL Normal 3.4-5.0 [facility] Comment on above: Performed By: #### L IPID, CMP ####[facility] [address] [place], [place] [address]Dr. Anisa Gomez Albumin/Globulin [Mass ratio] 1.0 {ratio} Normal [facility] Comment on above: Performed By: #### L IPID, CMP ####[facility] [address] [place], [place] [address]Dr. Anisa Gomez ALP [Catalytic activity/Vol] 95 U/L Normal 46-116 [facility] Comment on above: Performed By: #### L IPID, CMP ####[facility] [address] [place], [place] [address]Dr. Anisa Gomez ALT [Catalytic activity/Vol] 21 U/L Normal 14-59 [facility] Comment on above: Performed By: #### L IPID, CMP ####[facility] [address] [address]Dr. Anisa Gomez Anion gap [Moles/Vol] 6.3 mmol/L Normal [facility] Comment on above: Performed By: #### L IPID, CMP ####[facility] [address] [place], [place] [address]Dr. Anisa Gomez AST [Catalytic activity/Vol] 15 U/L Normal 15-37 [facility] Comment on above: Performed By: #### L IPID, CMP ####[facility] [address] [place], [place] [address]Dr. Cherryann Gomez Bilirubin [Mass/Vol] 0.5 mg/dL Normal 0.2-1.0 [facility] Comment on above: Performed By: #### L IPID, CMP ####[facility] [address] [place], [place] [address]Dr. Cherryann Gomez Calcium [Mass/Vol] 9.1 mg/dL Normal 8.5-10.1 [facility] Comment on above: Performed By: #### L IPID, CMP ####[facility] [address] [place], [place] [address]Dr. Anisa Gomez Chloride [Moles/Vol] 104 mmol/L Normal 98-107 [facility] Comment on above: Performed By: #### L IPID, CMP ####[facility] [address] [place], [place] [address]Dr. Anisa Gomez CO2 [Moles/Vol] 33.4 mmol/L Critically high 21.0-32.0 [facility] Comment on above: Performed By: #### L IPID, CMP ####[facility] [address] [place], [place] [address]Dr. Anisa Gomez Creatinine [Mass/Vol] 0.90 mg/dL Normal 0.55-1.02 [facility] Comment on above: Performed By: #### L IPID, CMP ####[facility] [address] [place], [place] [address]Dr. Anisa Gomez EGFR-AF FINNISH >60 Normal >=60 [facility] Comment on above: Performed By: #### L IPID, CMP ####[facility] [address] [place], [place] [address]Dr. Anisa Gomez EGFR-NON AF FINNISH >60 Normal >=60 [facility] Comment on above: Performed By: #### L IPID, CMP ####[facility] [address] [place], [place] [address]Dr. Anisa Gomez Globulin (S) [Mass/Vol] 3.7 g/dL Normal T [facility] Comment on above: Performed By: #### L IPID, CMP ####[facility] [address] [address]Dr. Anisa Gomez Glucose [Mass/Vol] 67 mg/dL Critically low 74-106 Th [facility] Comment on above: Performed By: #### L IPID, CMP ####[facility] [address] [address]Dr. Cherryann Gomez Potassium [Moles/Vol] 3.7 mmol/L Normal 3.5-5.1 [facility] Comment on above: Performed By: #### L IPID, CMP ####[facility] [address] [place], [place] [address]Dr. Anisa Gomez Protein [Mass/Vol] 7.3 g/dL Normal 6.4-8.2 [facility] Comment on above: Performed By: #### L IPID, CMP ####[facility] [address] [place], [place] [address]Dr. Anisa Gomez Sodium [Moles/Vol] 140 mmol/L Normal 136-145 [facility] Comment on above: Performed By: #### L IPID, CMP ####[facility] [address] [address]Dr. Anisa Gomez Urea nitrogen [Mass/Vol] 13.0 mg/dL Normal 7.0-18.0 [facility] Comment on above: Performed By: #### L IPID, CMP ####[facility] [address] [address]Dr. Anisa Gomez Urea nitrogen/Creatinine [Mass ratio] 14.4 mg/mg Normal [facility] Comment on above: Performed By: #### L IPID, CMP ####[facility] [address] [address]Dr. Anisa Gomez UA RANDOM W/MICROSCOPICon BACTERIA NONE SEEN Normal NONE SEEN [facility] Comment on above: Performed By: #### U AMIC #### [facility] [address] [address] [address] Anisa Gomez Bilirubin Ql (U) Negative Normal NEGATIVE [facility] Comment on above: Performed By: #### U AMIC #### [facility] [address] [address] [address] Anisa Gomez CAST NONE SEEN Normal NONE SEEN [facility] Comment on above: Performed By: #### U AMIC #### [facility] [address] [place] [address] Dr. Anisa Gomez Clarity (U) CLEAR Normal CLEAR [facility] Comment on above: Performed By: #### U AMIC #### [facility] [address] [address] [address] Anisa Gomez Color (U) YELLOW Normal YELLOW [facility] Comment on above: Performed By: #### U AMIC #### [facility] [address] [place] [address] Dr. Anisa Gomez Crystals LM Nom (Urine sed) NONE SEEN Normal NONE SEEN [facility] Comment on above: Performed By: #### U AMIC #### [facility] [address] [place] [address] Dr. Anisa Gomez Epithelial cells LM Ql (Urine sed) RARE Normal NONE SEEN /RARE [facility] Comment on above: Performed By: #### U AMIC #### [facility] [address] [place] [address] Dr. Anisa Gomez Glucose Ql (U) Negative Normal NEGATIVE [facility] Comment on above: Performed By: #### U AMIC #### [facility] [address] [place] [address] Dr. Anisa Gomez Hemoglobin Ql (U) Negative Normal NEGATIVE [facility] Comment on above: Performed By: #### U AMIC #### [facility] [address] [place] [address] Dr. Anisa Gomez Ketones Ql (U) Negative Normal NEGATIVE [facility] Comment on above: Performed By: #### U AMIC #### [facility] [address] [place] [address] Dr. Anisa Gomez LEUKOCYTES Negative Normal NEGATIVE [facility] Comment on above: Performed By: #### U AMIC #### [facility] [address] [address] [address] Anisa Gomez MUCOUS NONE SEEN Normal NONE SEEN [facility] Comment on above: Performed By: #### U AMIC #### [facility] [address] [place] [address] Dr. Anisa Gomez Nitrite Ql (U) Negative Normal NEGATIVE [facility] Comment on above: Performed By: #### U AMIC #### [facility] [address] [place] [address] Dr. Anisa Gomez pH (U) 7.0 [pH] Normal 5-9 [facility] Comment on above: Performed By: #### U AMIC #### [facility] [address] [place] [address] Dr. Anisa Gomez RBC 0-2 Normal 0-2 [facility] Comment on above: Performed By: #### U AMIC #### [facility] [address] [place] [address] Dr. Anisa Gomez SPEC GRAVITY 1.010 Normal 1.005-<=1. 025 [facility] Comment on above: Performed By: #### U AMIC #### [facility] [address] [place] [address] Dr. Anisa Gmoez UA PROTEIN Negative Normal NEGATIVE/ TRACE [facility] Comment on above: Performed By: #### U AMIC #### [facility] [address] [place] [address] Dr. Anisa Gomez Urobilinogen Qn (U) 0.2 {Agustin'U}/dL Normal 0.2 - 1. 0 [facility] Comment on above: Performed By: #### U AMIC #### [facility] [address] [place] [address] Dr. Anisa Gomez WBC 0-2 Abnormal NONE SEEN [facility] Comment on above: Performed By: #### U AMIC #### [facility] [address] [place] [address] Dr. Anisa Gomez Vital Signs Date Time Vital Sign Value Performing Clinician Facility 12-30-2023 09:35-0400 Body height 157.48 cm MD Shaikh Horan Work Phone: [facility] 12-30-2023 09:35-0400 Body mass index (BMI) [Ratio] 27.4 kg/m2 MD Shaikh Horan Work Phone: [facility] 12-30-2023 09:35-0400 Body temperature 97.3 [degF] MD Shaikh Horan Work Phone: [facility] 12-30-2023 09:35-0400 Body weight 68.03 kg MD Shaikh Horan Work Phone: [facility] 12-30-2023 09:35-0400 Diastolic blood pressure 50 mm[Hg] MD Shaikh Horan Work Phone: [facility] 12-30-2023 09:35-0400 Heart rate 106 /min MD Shaikh Horan Work Phone: [facility] 12-30-2023 09:35-0400 Respiratory rate 18 /min MD Shaikh Horan Work Phone: [facility] 12-30-2023 09:35-0400 SaO2% (BldA) [Mass fraction] 85 % MD Shaikh Horan Work Phone: [facility] 12-30-2023 09:35-0400 Systolic blood pressure 76 mm[Hg] MD Shaikh Horan Work Phone: [facility] 12-27-2023 15:46-0400 Diastolic blood pressure 57 mm[Hg] MD Shaikh Horan Work Phone: [facility] 12-27-2023 15:46-0400 Heart rate 65 /min MD Shaikh Horan Work Phone: [facility] 12-27-2023 15:46-0400 Respiratory rate 20 /min MD Shaikh Horan Work Phone: [facility] 12-27-2023 15:46-0400 Systolic blood pressure 112 mm[Hg] MD Shaikh Horan Work Phone: [facility] 12-27-2023 14:59-0400 Inhaled oxygen flow rate 2 L/min MD Shaikh Horan Work Phone: [facility] 12-27-2023 14:59-0400 SaO2% (BldA) [Mass fraction] 92 % MD Shaikh Horan Work Phone: [facility] 12-27-2023 11:20-0400 Body temperature 97.7 [degF] MD Shaikh Horan Work Phone: [facility] 12-27-2023 10:48-0400 Body height 157.48 cm MD Shaikh Horan Work Phone: [facility] 12-27-2023 10:48-0400 Body weight 70.8 kg MD Shaikh Horan Work Phone: [facility] 03-25-2023 10:00-0400 Body height 157.48 cm Nigel Valladares Other [employer] Other 03-25-2023 10:00-0400 Body mass index (BMI) [Ratio] 27.43 kg/m2 Nigel Valladares Other [employer] Other 03-25-2023 10:00-0400 Body temperature 97.2 [degF] Nigel Valladares Other [employer] Other 03-25-2023 10:00-0400 Body weight 68.04 kg Nigel Valladares Other [employer] Other 03-25-2023 10:00-0400 Diastolic blood pressure 82 mm[Hg] Nigel Becerraeleanor Other [employer] Other 03-25-2023 10:00-0400 SaO2% (BldA) [Mass fraction] 91 % Nigel Becerraeleanor Other [employer] Other 03-25-2023 10:00-0400 Systolic blood pressure 158 mm[Hg] Nigel Becerraeleanor Other [employer] Other 02-09-2023 11:00-0400 Body height 157.48 cm Cherelle Bautista Other [employer] Other 02-09-2023 11:00-0400 Body mass index (BMI) [Ratio] 27.43 kg/m2 Cherelle Bautista Other [employer] Other 02-09-2023 11:00-0400 Body temperature 97.6 [degF] Cherelle Bautista Other [employer] Other 02-09-2023 11:00-0400 Body weight 68.04 kg Cherelle Bautista Other [employer] Other 02-09-2023 11:00-0400 Diastolic blood pressure 74 mm[Hg] Cherelle Bautista Other [employer] Other 02-09-2023 11:00-0400 SaO2% (BldA) [Mass fraction] 92 % Cherelle Bautista Other [employer] Other 02-09-2023 11:00-0400 Systolic blood pressure 122 mm[Hg] Cherelle Bautista Other [facility] [employer] Other 12-24-2022 10:00-0400 Diastolic blood pressure 86 mm[Hg] Brigetteenrique [facility]ianet [facility] 12-24-2022 10:00-0400 Mean blood pressure 106 mm[Hg] Brigette Lianet [facility] 12-24-2022 10:00-0400 Systolic blood pressure 146 mm[Hg] Brigette Lianet [facility] 12-24-2022 09:57-0400 Blood Pressure Location Brigette Lianet [facility] 12-24-2022 09:57-0400 Body temperature 97.52 [degF] Brigetteenrique EsparzaLianet [facility] 12-24-2022 09:57-0400 Diastolic blood pressure 82 mm[Hg] Brigette Lianet [facility] 12-24-2022 09:57-0400 Heart rate 86 /min Brigette Lianet [facility] 12-24-2022 09:57-0400 Systolic blood pressure 150 mm[Hg] Brigetteenrique EsparzaLianet [facility] Encounters Encounter Date Encounter Type Care Provider Facility Start: 03-01-2024 End: 03-01-2024 ambulatory SHAIKH AUNG Facility:[facility] Start: 03-01-2024 End: 03-01-2024 Patient encounter procedure Arden De Leon [facility] Start: 02-22-2024 End: 02-22-2024 ambulatory CHRIS BERMAN Not Available Start: 02-19-2024 ambulatory SHAIKH AUNG Facility: [facility] Start: 01-04-2024 End: 01-04-2024 ambulatory SHAIKH AUNG Not Available Start: 12-30-2023 End: 12-30-2023 Patient encounter procedure MD Shaikh Horan Work Phone: [facility] V[facility] Work Phone: Start: 12-30-2023 End: 12-30-2023 ambulatory MD Shaikh Horan Work Phone: [facility] Work Phone: Start: 12-27-2023 End: 12-27-2023 Emergency department patient visit MD Shaikh Horan Work Phone: [facility] Work Phone: Start: 11-09-2023 End: 11-09-2023 ambulatory SHAIKH AUNG Not Available Start: 10-12-2023 End: 10-12-2023 ambulatory SHAIKH AUNG Not Available Start: 08-20-2023 Orders Only Shaikh Aung FARFAN Work Phone: [facility] Comment on above: RLS (restless legs s yndrome) (Primary Dx); Moderate COPD (chronic obstructive pulmonary disease) ([facility]) Start: 07-09-2023 Patient encounter procedure Shaikh Aung FARFAN Work Phone: [facility] Start: 07-09-2023 End: 07-09-2023 ambulatory SHAIKH AUNG Not Available Start: 03-25-2023 Office outpatient visit 15 minutes Nigel Valladares [facility] Vascular Surgery Start: 03-25-2023 End: 03-25-2023 ambulatory Cherelle Bautista [employer] Other Start: 02-09-2023 End: 02-09-2023 ambulatory Cherelle Bautista Other [employer] Other Start: 02-09-2023 [facility] visit new patient Cherelle grissom RO Vascular Surgery Start: 01-07-2023 End: 01-07-2023 Patient encounter procedure Brigette Martini [facility] Start: 01-01-2023 End: 01-01-2023 Patient encounter procedure Brigette Martini [facility] Start: 12-29-2022 End: 12-29-2022 Patient encounter procedure Brigette Martini [facility] Start: 12-24-2022 End: 12-24-2022 Patient encounter procedure Brigette Martini [facility] Start: 12-24-2022 End: 02-19-2023 Pre-admission assessment Jorge MERCEDES [facility] Start: 12-24-2022 End: 12-24-2022 Patient encounter procedure Brigette Martini [facility] Start: 11-11-2022 End: 11-11-2022 ambulatory SHAIKH Enrique HORAN Facility:[facility] Start: 10-27-2022 End: 10-28-2022 ambulatory LEIGH THOMPSON . Facility:[facility] Start: 09-01-2022 End: 09-01-[address] JERMAIN WESTON . Facility:[facility] Start: 07-24-2022 End: 07-25-2022 ambulatory SHAIKH Enrique HORAN Facility:[facility] Start: 07-14-2022 ambulatory SHAIKH Enrique HORAN Facilit y:[facility] Start: 07-09-2022 End: 07-10-2022 ambulatory SHAIKH Enrique HORAN Facility:[facility] Start: 07-04-2022 ambulatory Enrique EPIMaximiliano Facilit y:[facility] Start: 06-09-2022 End: 06-09-2022 Patient encounter procedure Jermain WESTON [facility] Start: 05-07-2022 End: 05-08-2022 ambulatory RO Enrique HORAN Facility:[facility] Procedures Date Procedure Procedure Detail Performing Clinician Start: 12-30-2023 US scan of aorta MD Reynaldo Horan Work Phone: Start: 12-27-2023 Screening for occult blood in feces MD Shaikh Horan Work Phone: Start: 12-27-2023 Urine culture MD Shaikh Horan Work Phone: Start: 12-27-2023 Antibody screen Bernardino Gifford Comment on above: Result Comment: PERF ORMED BY: [address] [place] [address] PATHOLOGIST FILM TECHNICIAN JENNIFER ALANIZ M.D. Start: 12-27-2023 CT angiography [...] 01-10-2024 Influenza vaccination Influenz a Vaccine (#1) [facility] Comment on above: Postponed from 03/13 (Patient Refused) Start: 12-27-2023 Bacteria identified in Blood by Culture [facility] Start: 12-27-2023 Bacteria identified in Urine by Culture [facility] Start: 12-27-2023 Blood culture for bacteria, including anaerobic screen Blood Culture [facility] Start: 10-08-2023 End: 10-08-2023 Patient encounter procedure 10/08/2023 2:00 PM EDT Office Visit [facility] [address] [place] [address] Shaikh Horan MD [address] [place] [address] [facility] Start: 07-03-2023 Screening for malign ant neoplasm of breast Mammogram [facility] Start: 1950 Screening for malign ant neoplasm of colon [facility] Patient Education Dealing with L ow Blood Pressure from the Drugs You Take [facility] Work Phone: Patient referral [facility] Work Phone: US Thoracic and abdominal aorta [facility] Immunizations Immunization Date Immunization Notes Care Provider Fa [facility] 07-09-2022 pneumococcal 20-ananya nt conjugate vaccine Brigette Martini [facility] 07-03-2022 pneumococcal conjuga te vaccine, [address] [facility] Payers Date Payer Category Payer Private Health Insurance [id number] 2023 Private Health Insurance [id number] 2023 Medicare [id number] 2022 Unknown [employer] [id number] 2022-Present [address] [place] JEAN [id number] [id number] 2020 Unknown [id number] Self-pay 1950 Unknown [id number] 1950 Unknown [id number] 2.16.840.1.278171.3.579.2 .593 1950 Unknown [id number] 2.16.840.1.301694.3.579.2 .593 1950 Unknown [id number] 2.16.840.1.389042.3.579.2 .593 1950 Unknown [id number] 2.16.840.1.175084.3.579.2 .593 1950 Unknown [id number] 2.16.840.1.206534.3.579.2 .593 1950 Unknown [id number] 2.16.840.1.968833.3.579.2 .593 1952 Unknown [id number] 2.16.840.1.317485.3.579.2 .593 1950 Unknown [id number] 2.16.840.1.523638.3.579.2 .1259 1950 Unknown [id number] 2.16.840.1.297274.3.579.2 .1259 1950 Unknown [id number] 2.16.840.1.353381.3.579.2 .1259 1950 Unknown [id number] 2.16.840.1.891546.3.579.2 .1259 1950 Unknown [id number] 2.16.840.1.974613.3.579.2 .1259 1950 Unknown [id number] 2.16.840.1.623390.3.579.2 .727 1950 Unknown [id number] 2.16.840.1.640727.3.579.2 .727 Unknown [id number] 2.16.840.1.896586.3.579.2 .531 Unknown [id number] 2.16.840.1.333903.3.579.2 .531 Unknown [id number] 2.16.840.1.384961.3.579.2 .531 Social History Date Type Detail Facility Tobacco smoking status [facility] Start: 07-09-2023 Sex Assigned At Female F [facility] Start: 12-24-2022 Tobacco smoking status Heavy t obacco smoker (finding) [facility] Tobacco smoking status Never [facility] Start: 07-09-2023 Tobacco smoking stat [facility] Smokes tobacco daily [facility] History of tobacco use Cigarette Smoker [facility] Start: 07-09-2023 Cigarettes smoked current (pack per day) - Reported 1 [facility] Start: 07-09-2023 Tobacco use and exposure Smokeless tobacco non-user [facility] Start: 07-09-2023 Alcohol intake Lifetime non-d meghan (finding) [facility] Start: 1950 Sex Assigned At Not on file [facility] Start: 1950 Sex Assigned At Female F [facility] Start: 12-27-2023 Tobacco smoking stat [facility] Smoker (finding) [facility] Functional Status Date Assessment Result Facility 12-24-2022 Functional Status N/A [facility] Clinical Notes 06-09-2022 to 03-25-2023 Note Date & Type Note Facility 03-25-2023 Evaluation note Encounter Date Diagnosis Assessment Notes 13 Mar, 2023 Stenosis of carotid artery, unspecified laterality (ICD-10 [...] were addressed she understands agrees the plan. [employer] Other 07-31-2023 Evaluation note* Encounter Date Diagnosis Assessment Notes Treatment Notes Treatment Clinical Notes Jan, Abdominal aortic aneurysm (AAA) without rupture, unspecified part (ICD-10 - I71.40) We reviewed her abdominal CT imaging from outside facility at the [facility] which shows AAA 3.4 cm in greatest [...] her risk and is unmotivated to quit. [employer] Other 06-14-2023 Hospital Discharge instructions Patient Education [...] Follow these instructions at home: Medicines Take xsba-cxr-noofrlt and prescription medicines only as told by [...] Watch your condition for any changes. Take wobk-maf-jbnjcrp and prescription medicines only as told by [...] provider. Document Revised: 08/17/2020 Document Reviewed: 11/07/2019 [employer] Patient Education 2022 [employer]. Follow Up Care 12/15/2022 11:25:23 With:Brigette Martini CNP Address: When:[address] [facility] 11-28-2022 Hospital Discharge instructions [...] fried and sweet foods. General instructions Take mhnw-gbd-sbgrkin and prescription medicines only as told by [...] 04/25/2010 Document Revised: 10/20/2019 Document Reviewed: 07/15/2018 [employer] Patient Education 2020 [employer]. Follow Up Care 05/09/2022 11:00:12 With:TRISTA FARFAN, Jermain Mckay, URL Address: [facility] [address] , [place] [address]- When: Unknown [facility] evaluation + Plan note No data available for this section [facility] evaluation + Plan note Future Appointments Appointment Date:12/29/2022 10:30:00 AM Scheduled Provider: Location:.[facility] Appointment Type:US Abdominal/Pelvis (FT) Appointment Date:02/18/2023 08:15:00 AM Scheduled Provider: Location:[facility] Appointment Type:Surgery FT Future Scheduled Tests Radiology* US Abdomen, Limited 12/29/22 [facility] Evaluation + Plan note Future Appointments Appointment Date:02/18/2023 08:15:00 AM Scheduled Provider: Location:[facility]ments Appointment Date:01/07/2023 11:00:00 AM Scheduled Provider: Location:.[facility] Appointment Type:CT Abdomen (FT) Appointment Date:02/18/2023 08:15:00 AM Scheduled Provider: Location:[facility] Appointment Type:Surgery FT Future Scheduled Tests Radiology* CT Abdomen w/ Contrast [facility] Diagnosis RLS (restless legs syndrome)- Primary Restless legs syndrome (RLS) Moderate COPD (chronic obstructive pulmonary disease) ([facility]) documented in this encounter [facility] HealthcareEvaluation noteNo assessment information availableFirKettering Health [facility] Work Phone: Evaluation note* Diagnosis Onset Date Resolution Status Abdominal aortic aneurysm (A AA) 3.0 cm to 5.0 cm in diameter in female acute [facility] Work Phone: History general Narrative - Reported* Type Description Date Medical History GERD Medical History hypercholesterolemia Surgical History cholecystectomy Surgical History tubal ligation Surgical History shoulder surgery Hospitalization History see above [employer] Other [facility] general Narrative - Reported* Type Description Date Medical History GERD Medical History hypercholesterolemia Medical History Carotid stenosis Surgical History cholecystectomy Surgical History tubal ligation Surgical History shoulder surgery Hospitalization History see above [employer] Other Hospital Discharge instructions No data available for this section [facility] Additional Instructions Stop your blood pressure medicine. Follow-up with your doctor without fail for reevaluation of blood pressure and left lung mass.[facility] Work Phone: Progress note No data available for this section [facility] [place] Summary Purpose Family History No Family History [...] DATE CREATED AUTHOR AUTHOR'S ORGANIZ ATION 02/24/2024 [facility] EPIC DATE CREATED AUTHOR AUTHOR'S ORGANIZ ATION 02/28/2024 [facility] DATE CREATED AUTHOR AUTHOR'S ORGANIZ ATION 03/03/2024 [facility] Patient Care team informatio n (unrecognized section and content) Personnel Name: SHAIKH HORAN MD Address: Address: [address] [place] [address] Team Status: Active Member Role Status Dates Shaikh Aung MD Primary Care Provider Active Team Status: Inactive Member Role Status Dates Shaikh Aung MD Primary Care Provider Active Start: December 27, 2023 End: December 27, 2023 Bernardino Gifford MD Emergency Provider Active St art: December 27, 2023 End: December 27, 2023 [employer] Relationship Specialty Start Date End Date Shaikh Horan MD PCP - General Internal Medicine 01/26/23 Shaikh Horan MD [address] [place] [address] PCP - Devoted 04/12/23 Personnel Name: SHAIKH HORAN Address: Address: [address] [place] [address] REASON FOR VISIT (unrecogniz ed section and content) Referred by Dr. Horan for 3 .4cm AAA; CTA done at [facility] U/S 930 AM Goals (unrecognized section [...] BE BASED ON THE PRIMARY CLINICAL RECORDS. [facility]. provides no warranty or guarantee of the accuracy or completeness of information in this document.
[2024-03-09] MEDS: LACTATED RINGER'S SOLUTION 1,000 ML 50 ML IV (11:17)
--- NOTE | 2024-03-09 12:40 | FL_ITS ---
[address] [address] Patient Name: BHUPENDRA MIRANDA MRN: [id number] date: 1950 Sex: F Assigned Patient Location: [facility] Current Patient Location: Accession/Order Number: [id number] Exam Date: 03/09/2024 12:45 Report Date: 03/10/2024 07:34 At the request of: LEIGH THOMPSON Procedure: FL Bronchoscopy NO CHARGE EXAM: FL Bronchoscopy NO CHARGE HISTORY: Bronchoscopy COMPARISON: None. TECHNIQUE: 12.5 seconds of fluoroscopy. 1.56 mg FINDINGS: Single intraprocedural image of the chest, situs is not level. Bronchoscopy catheter projects over the mid thorax FL/FL Bronchoscopy NO CHARGE IMPRESSION: Intraprocedural image from bronchoscopy Electronically authenticated by: JEFF MELTON Date: 03/10/2024 07:34
[2024-03-09] MEDS: EPINEPHrine 1 MG/10 ML SYRINGE 2 MG INJ (13:10)
[2024-03-09] MEDS: TRANEXAMIC ACID 1,000 MG/10 ML AMPUL 200 MG IH (13:13)
[2024-03-09] MEDS: LIDOCAINE HCL 1% 100 MG/10 ML MDV 5 ML INJ (13:13)
--- NOTE | 2024-03-09 13:42 | XR_ITS ---
The [address] [address] Patient Name: BHUPENDRA MIRANDA MRN: [id number] date: 1950 Sex: F [facility] Current Patient Location: [facility] Accession/Order Number: [id number] Exam Date: 03/09/2024 14:00 Report Date: 03/09/2024 14:47 At the request of: LEIGH THOMPSON Procedure: XR chest 1V EXAMINATION: XR chest 1V HISTORY: HÉCTOR mass, s/p bronchoscopy -eval for PTX COMPARISON: 12/27/2023 TECHNIQUE: AP portable FINDINGS: LUNGS: The right lung is clear. Focal mass in the left lung measuring 11.4 x 4.2 cm. Left lung volume loss VASCULATURE: No increased pulmonary vasculature. PLEURA: No pneumothorax, effusion, or pleural thickening. CARDIAC: Dominant heart size MEDIASTINUM: No visible mass or adenopathy. Aortic atherosclerosis BONES: No fracture or visible bone lesion. OTHER: Negative. XR/XR chest 1V IMPRESSION: Left lung density/mass No pneumothorax Electronically authenticated by: JEFF MELTON Date: 03/09/2024 14:47
[2024-03-09 14:10] LABS: Hematocrit 38.5 % (36.0-48.0); Hemoglobin 12.3 g/dL (12.0-16.0)
--- NOTE | 2024-03-09 15:45 | P.ON_ITS ---
Date of procedure: 03/09/24 Procedure: Procedure Diagnostic fiberoptic bronchoscopy with bronchoalveolar lavage and transbronc hial biopsies Indication Left upper lung mass Findings 1. No endobronchial lesions 2. Final diagnosis pending pathology Anesthesia 1. General anesthesia - please see their records 2. Lidocaine 1% - 5mL Additional medications: -Epinephrine 2mg -Tranexamic acid 200mg Specimens 1. Bronchoalveolar lavage of the left upper lobe 2. Transbronchial biopsies of the left upper lobe Estimated blood loss 20mL Complications 1. Intra-procedural hypertension 2. Moderate hemorrhage after transbronchial biopsies. Fluoroscopy time 12 seconds History The patient has a left upper lobe mass. It is peripherally based and appeared difficult to reach via standard bronchoscopy with transbronchial biopsies. Discussed with patient risks including pain, bleeding, infection, and pneumothorax - she would be at a higher risk of complications given the location with background emphysema; as well as the risk of a non-diagnostic study given the peripheral location. Informed consent was obtained after risks, benefits, and alternatives were discussed with the patient.? Description Time out was initiated to confirm the correct patient, site, and procedure with all present voicing in the affirmative. Patient was brought to the operating room suite where noninvasive monitoring was utilized.? Sedation & anesthesia were administered by the anesthesia department- please refer to their records for further information.? Tape was placed over the patient's eyes to prevent spillage of secretions.? An 8.5 endotracheal tube was placed by anesthesia. Due to the endotracheal tube, the larynx, vocal cords, and proximal trachea were unable to be examined. The distal trachea was visualized without any gross tracheal lesions. 5mL of 1% lidocaine were instilled topically to the main ulisses.? The main ulisses was sharp without splaying or evidence of underlying mass. The bronchoscope was then advanced through the right main bronchus to the right upper lobe, where the apical, posterior, and anterior segments were visualized.? The bronchoscope was advanced through the bronchus intermedius to the right middle lobe or the medial and lateral segments visualized.? The bronchoscope was then advanced to the right lower lobe superior, medial, anterior, lateral, and posterior basilar segments.? No endobronchial lesions, exudate, or other abnormalities were noted. The bronchoscope was retracted to the main ulisses and advanced through the left main bronchus to the left upper lobe where the upper division apicoposterior and anterior, as well as lingular superior and inferior segments were visualized.? The bronchoscope was then advanced into the left lower lobe where the superior, anteromedial, lateral, and posterior basilar segments visualized.? No endobronchial lesions, exudate, or other abnormalities were noted. By this time, anesthesia noted that the patient was having increased blood pressures. She was administered esmolol and labetalol. Blood pressure and heart rate improved, after which I proceeded to wedge the bronchoscope into the left upper lobe where a bronchoalveolar lavage was obtained. The blood pressure increased again, and additional beta-blockade was administered. The case was discussed with anesthesia, to which we agreed that the patient was acceptable to proceed with transbronchial biopsies. Utilizing fluoroscopy, the biopsy forceps were advanced to a bronchus that appeared to be in the location of the mass seen on the fluoroscopy screen. After the first biopsy was obtained, there was mild bleeding noted in the area. Hemostasis was achieved with simple suctioning.Utilizing fluoroscopy again, a second transbronchial biopsy was obtained. After this biopsy, the patient experienced significant bleeding. Despite performing suction tamponade with the bronchoscope, the bleeding did not subside. The bleeding was constant but non- pulsatile. The bronchoscope was wedged into the subbronchus and 1mg of epinephrine was instilled topically.The bleeding did not subside, and a second 1 mg dose of epinephrine was instilled. Despite this, bleeding remained. Suction tamponade was once again applied via the bronchoscope.The patient was positioned on her left side to reduce bleeding. Next, 200 mg tranexamic acid was instilled which finally stopped the bleeding. The area was observed for 2 minutes and no further bleeding was noted. There was remnant blood throughout the bronchial tree which was suctioned. The bronchoscope was returned back to the bleeding bronchopulmonary segment and no further blood was noted. No further transbronchial biopsies were even considered at this point. The bronchoscope was withdrawn. Family was notified of the patient's condition.The patient was observed closely by anesthesia and was able to be extubated.Oxygen was weaned off in PACU.Postoperative chest x-ray revealed no iatrogenic pneumothorax.H&H was checked, with acceptable hemoglobin of 12.3g/dL. Fungal Serum/urinary labs were ordered. Patient did not remember her follow-up visit; I informed PACU that it is 03/23/2024 at 1100.Patient was ultimately discharged home. Anesthesia: JAREDA Surgeon: Roberto Grossman Condition: stable Disposition: same day
--- NOTE | 2024-03-09 16:20 | PC.NURSE ---
1455: spoke with regarding pts chest xray results,per Dr.Samsa banerjee for pt to lay on her back.
[2024-03-12 20:08] LABS: Coccidioides Ab, IgG, EIA 0.5 EIA Units (.)
[2024-03-13 14:07] LABS: Blastomyces Abs, Qn, DID Negative (Neg:<1:1)
== END 2024-03-09 16:00 | disposition home or self-care (01) ==
PROVIDERS: Visit Provider Internal Medicine
PROC: (CPT 31624; principal; 2024-03-09 12:00)
DX: R91.8 Other nonspecific abnormal finding of lung field (principal); I10 Essential (primary) hypertension; J95.61 Intraoperative hemorrhage and hematoma of a respiratory system organ or structure complicating a respiratory system procedure; Z87.891 Personal history of nicotine dependence; J43.2 Centrilobular emphysema; K11.8 Other diseases of salivary glands; I71.43 Infrarenal abdominal aortic aneurysm, without rupture; R93.3 Abnormal findings on diagnostic imaging of other parts of digestive tract; Z86.73 Personal history of transient ischemic attack (TIA), and cerebral infarction without residual deficits; Z79.51 Long term (current) use of inhaled steroids; Z90.710 Acquired absence of both cervix and uterus; Z90.49 Acquired absence of other specified parts of digestive tract; Z98.51 Tubal ligation status; E78.5 Hyperlipidemia, unspecified; M79.7 Fibromyalgia; G25.81 Restless legs syndrome
CPT/HCPCS: 31624; 31628; 36415; 71045; 85014; 85018; 86612; 86635; 86698; 87385; 88112; 88305; 99999; J0171; J0360; J1290; J1805; J2250; J2405; J2704; J3010

== ENCOUNTER 2024-03-15 14:08 | Outpatient (OUT) | payer MEDICARE, SELFPAY | END 2024-03-15 14:09 | disposition home or self-care (01) | LOC: LAB 14:08 | PROVIDERS: Visit Provider Internal Medicine | DX: R91.8 Other nonspecific abnormal finding of lung field (principal) | CPT/HCPCS: 87385 ==

== ENCOUNTER 2024-04-05 07:25 | Outpatient (RCR) | payer MEDICARE, SELFPAY ==
--- OUTSIDE RECORDS SUMMARY | 2024-03-15 07:31 | XMS_ITS | CCD ---
Author Organization [facility] Care Team Providers Care Caddymaster Name Role Phone FAWWAD, RO H Admitting [...] HO Consulting Unavailable ANDRES GUZMAN Consulting Unavailable TRISTA Morgan, DR ROBERTS Admitting Unavailable TRISTA Morgan, DR ROBERTS Attending Unavailable FAWWAD, RO H Primary Care Unavailable DR ARMANDO EASLEY Consulting Unavailable FAWWAD, RO H Admitting Unavailable FAWWAD, RO H Attending Unavailable FAWWAD, RO H Primary Care Unavailable FAWWAD, RO Primary Care Physician [phone] Cherelle Bautista Unavailable Nigel Valladares Unavailable [phone] Shaikh Horan MD Primary Care Provider Shaikh Horan MD Unavailable MD Jia Horan Primary Care Provider MD Bernardino Gifford Emergency Provider VONDA Bautista Attending Provider SHAIKH HORAN Attending Unavailable AUNG, Attending Unavailable SHAIKH HORAN Attending Unavailable AUNG, Attending Unavailable CHRIS BERMAN Attending UnavailBernardino Marino Attending Unavailable Bernardino Gifford Admitting Unavailable Shaikh Horan Primary Care Unavailable Cherelle Bautista Admitting Unavailable Cherelle Bautista Attending Unavailable Shaikh Horan Primary Care Unavailable Cherelle Bautista Admitting Unavailable Cherelle Bautista Attending Unavailable SHAIKH HORAN Referring Unavailable Arden De Leon Attending Unavailable DO Leigh Thompson Attending Provider Allergies Allergy Classification Reported Allergen(s) Allergy Type Date of Onset Reaction(s) Facility (1 source) No Known Medication Allergies; 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: [No Known Medication Allergies] Propensity to adverse reactions (disorder) [facility] Repository Medications Current Medications Medication Drug Class(es) Dates Sig (Normalized) Sig (Original) 30 ACTUAT fluticasone furoate 0.2 MG/ACTUAT / umeclidinium 0.0625 MG/ACTUAT / vilanterol 0.025 MG/ACTUAT Dry Powder Inhaler [Trelegy] (2 sources) Trelegy Ellipta 200-62.5-25 MCG/ACT Inhalation for 30 Days Active [id number] 200 actuat albuterol 0.09 mg/actuat metered dose inhaler (5 sources) beta2-Adrenergic Agonist Start: 12-30-2023 Albuterol Sulfate Active INHALATION December 30, 2023 12:00am Start: 07-02-2023 take 2 puff(s) by in halation every four hours albuterol HFA 90 mcg/act inhaler Inhale 2 puffs every 4 (four) hours if needed for shortness of breath 0 07/02/2023 Active aspirin 81 mg delayed release oral tablet (6 sources) Platelet Aggregation Inhibitor, Nonsteroidal Anti-inflammatory Drug Start: 12-27-2023 take 81 mg by mouth once daily Aspirin Active 81 MG PO Daily December 27, 2023 12:00am Baby Aspirin Act thelma atorvastatin 80 mg oral tablet (16 sources) HMG-CoA Reductase Inhibitor Start: 06-09-2022 take 1 tablet by mouth once daily Atorvastatin Active 80 MG PO Daily December 27, 2023 12:00am FreeTextSig: Oral; Note: Source Status: Taking; Qty: 90 Tablet; Provider: Jacquelyn Manning ( ) dicyclomine hydrochloride 20 mg oral tablet (7 sources) Anticholinergic Start: 12-27-2023 take 1 tablet by mouth three times daily Dicyclomine Active 20 MG PO Three times daily December 27, 2023 12:00am FreeTextSig: TAKE 1 TABLET BY MOUTH THREE TIMES DAILY Oral; Note: Source Status: Taking; Refills: 0; Qty: 90 Each; Provider: Aung Ro take 1 tablet by [facility] three times daily Dicyclomine HCl 20 MG TAKE 1 TABLET BY [facility] THREE TIMES DAILY Oral for 30 Days Active esomeprazole 40 mg delayed release oral capsule (8 sources) Proton Pump Inhibitor Start: 12-24-2022 End: 03-24-2023 take 1 capsule by mouth once daily esomeprazole 40 mg Cap-EC 40 mg = 1 cap(s), Oral, Daily, # 90 cap(s), Refills(s) 0, Pharmacy: [facility], 159, cm, 12/24/22 10:00:00 EDT, Height/Length Dosing, 67.6, kg, 12/24/22 10:00:00 EDT, Weight Dosing Start Date: 02/18/23 Status: Ordered ezetimibe 10 mg oral tablet (6 sources) Dietary Cholesterol Absorption Inhibitor Start: 12-27-2023 [...] day(s), # 90 tab(s), Refills(s) 0, Pharmacy: [facility], 159, cm, 12/24/22 10:00:00 EDT, Height/Length Dosing, 67.6, kg, 12/24/22 10:00:00 EDT, Weight Dosing Start Date: 02/18/23 Stop Date: 05/19/23 Status: Ordered Fluticasone-Umec lidin-Vilanter (4 sources) Anticholinergic , Corticosteroid, beta2-Adrenergi c Agonist [...] each 2 08/20/2023 11/18/2023 Active Fluticasone-Umec lidin-Vilanter (5 sources) Start: 12-27-2023 Fluticasone-Um eclidi n-Vilanter (Trelegy Ellipta) 200-62.5-25 mcg blister with device Active 1 INH INHALATION Daily December 27, 2023 12:00am FreeTextSig: Inhalation; Note: Source Status: Taking; Qty: 60 Each; Provider: Jacquelyn Manning ( ) folic acid 1 mg oral tablet (10 sources) Start: 02-18-2023 take 1 tablet by [...] day(s), # 30 tab(s), Refills(s) 0, Pharmacy: [id number], 159, cm, 12/24/22 10:00:00 EDT, Height/Length Dosing, 67.6, kg, 12/24/22 10:00:00 EDT, Weight Dosing Start Date: 01/06/23 Stop Date: 02/05/23 Status: Ordered gabapentin 300 mg oral capsule (14 sources) Anti-epileptic Agent Start: 06-09-2022 take 300 mg by mouth three times daily Gabapentin Active 300 MG PO Three times daily December 27, 2023 12:00am nicotine 4 mg oral lozenge (2 sources) Cholinergic Nicotinic Agonist Start: 07-09-2023 nicotine (Nicotine Step 1) 21 MG/24HR patch Indications: Tobacco dependency [...] pantoprazole 40 mg delayed release oral tablet (8 sources) Proton Pump Inhibitor Start: 12-27-2023 take [...] Status: Ordered rOPINIRole 0.5 mg oral tablet (7 sources) Nonergot Dopamine Agonist Start: 12-27-2023 take 0.5 mg by mouth once daily at bedtime Ropinirole Active 0.5 MG PO Daily at bedtime December 27, 2023 12:00am Start: 08-20-2023 End: 11-18-2023 take 1 tablet by mouth at bedtime rOPINIRole (Requip) 0.5 MG tablet Indications: Restless Leg Syndrome Take 1 tablet (0.5 mg) by mouth at bedtime 90 tablet 0 08/20/2023 11/18/2023 Active Sod Picosulf-Mag Ox-Citric Ac (2 sources) Start: 03-01-2024 take 1 dose by mouth once daily Sod Picosulf-Mag Ox-Citric Ac (Clenpiq) 10 mg-3.5 gram- 12 gram/175 mL solution Active 175 ML PO Daily 350 0 March 01, 2024 12:00am take first dose at 3PM evening before colonoscopy; 2nd dose at 9pm the night before colonoscopy traZODone hydrochloride 100 mg oral tablet (16 sources) Serotonin Reuptake Inhibitor Start: 06-09-2022 take 1 tablet by mouth once daily Trazodone Active 100 MG PO Daily December 27, 2023 12:00am FreeTextSig: TAKE 1 TABLET BY MOUTH DAILY Oral; Note: Source Status: Taking; Refills: 0; Qty: 30 Each; Provider: Aung Ro varenicline (4 sources) Partial Cholinergic Nicotinic Agonist Start: 12-30-2023 Varenicline Active TAB PO December 30, 2023 12:00am zolpidem tartrate 10 mg oral tablet (5 sources) gamma-Aminobutyric Acid-ergic Agonist Start: 12-27-2023 take [...] Status: Ordered amLODIPine 10 mg oral tablet (6 sources) Dihydropyridine Calcium Channel Tristian Start: 12-27-2023 [...] procedure, # 2 tab(s), Refills(s) 0, Pharmacy: [id number], 159, cm, 08/11/22 13:12:00 EST, Height/Length Dosing, 64, kg, 08/11/22 13:12:00 EST, Weight Dosing Start Date: 08/14/22 Status: Ordered polyethylene glycol 3350 [id number] mg / potassium chloride 1480 mg / sodium bicarbonate 5720 mg / sodium chloride 67643 mg powder for oral solution (7 sources) Osmotic Laxative Start: 12-24-2022 NuLYTELY Fuentes oral powder for reconstitution See Instructions, 1 EA, Refill(s) 0, Prior to colonoscopy., [id number], 159, cm, 12/24/22 10:00:00 EDT, Height/Length Dosing, 67.6, kg, 12/24/22 10:00:00 EDT, Weight Dosing Start Date: 12/24/22 Status: Ordered Problems Active Problems Problem Classification Problem Date Documented Date Episodic/Chronic Abdominal pain (16 sources) Unspecified abdominal pain; 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: [Upper abdominal pain] Onset: 11-13-2022 Episodic Aortic; peripheral; and visceral artery aneurysms (7 sources) Aneurysm of infrarenal abdominal aorta ; [...] care facility (current) drug therapy; 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: [OTH USP CURRENT DRUG THERAPY] Onset: 11-13-2022 Episodic Other aftercare (1 source) 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; 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: [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] Onset: 11-13-2022 Episodic [...] Onset: 07-09-2023 07-09-2023 Episodic Other circulatory disease (5 sources) Low blood pressure; 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: [Hypotension, unspecified] 12-27-2023 Episodic Other hereditary and degenerative nervous system conditions (2 sources) Restless legs; 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: [Restless legs syndrome] Onset: 07-09-2023 08-20-2023 Chronic Other lower respiratory disease (4 sources) Other nonspecific abnormal finding of lung field; 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: [OTH NONSPECIFIC ABN FIND LNG FIELD] Onset: 10-27-2022 Episodic Other lower respiratory disease (5 sources) Lung mass; 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: [Other nonspecific abnormal [...] Range Facility US aortaon 12-30-2023 US aorta [facility] [address] [place] [address] Ultrasound Report Signed Patient: Bhupendra Rubi MR#: [id number] 306 : 1950 Acct:[id number] Age/Sex: 73 / F ADM Date: 12/30/23 Loc: [facility] Room: [facility] Attending Dr: Cherelle Bautista CORE ASSEMBLY SUPERVISOR-C Ordering Provider: Cherelle Bautista APRN Date [...] Adam Keller M.D.12/30/2023 9:53 AM Dictation Location: [place] [address] Tech: Yakelin Gibson Transcribed By: JOSE MIGUEL 12/30/2353 Dictated By: Adam Keller MD 12/30/2349 Signed By: 12/30/2353 Normal [facility] ABO/Rh Retypeon 12-27-2023 ABO/RH Recheck Result Positive Normal [facility] Comment on above: Result Comment: PERF ORMED BY: [place] [address] PATHOLOGIST GEOTHERMAL OPERATIONS ENGINEER JENNIFER ALANIZ M.D. Activated partial thrombopla stin time (aPTT) in platelet poor plasma by coagulation aOrdered By: Bernardino Gifford on 12-27-2023 aPTT Coag (PPP) [Time] 24.6 s Low 25.1-36.5 [facility] Comment on above: A hematocrit value g reater than 55% may lead to inaccurate results in coagulation testing. Patients having hematocrit values >55% require a special collection tube for coagulation studies. Please contact the laboratory at [phone] for redraw instructions. Alanine aminotransferase [En zymatic activity/volume] in Serum or PlasmaOrdered By: Bernardino Gifford on 12-27-2023 ALT [Catalytic activity/Vol] 10 U/L [facility] Comment on above: Performed By: #### C MP, CBC, HS TROP, CK #### [place] [id number] [facility] Albumin [Mass/volume] in Ser um or Plasma by Bromocresol green (BCG) dye binding methoOrdered By: Bernardino Gifford on 12-27-2023 Albumin BCG dye [Mass/Vol] 4.0 g/dL 3.5-5.7 [facility] Alkaline phosphatase [Enzyma tic activity/volume] in Serum or PlasmaOrdered By: Bernardino Gifford on 12-27-2023 ALP [Catalytic activity/Vol] 105 U/L High 34-104 [facility] Comment on above: Performed By: #### C MP, CBC, HS TROP, CK #### [address] Arterial Blood [place] 024 ABG Base Excess -2.4 mmol/L Normal -3.0-3.0 [facility] Comment on above: Performed By: #### C MP, CBC, HS TROP, CK #### [address] ABG Frac Inspired O2 32 % Normal [facility] Comment on above: Performed By: #### C MP, CBC, HS TROP, CK #### [address] ABG Liter Flow 3 Normal [facility] Comment on above: Performed By: #### C MP, CBC, HS TROP, CK #### [address] ABG Oxygen Content 7.5 mmol/L Normal 6.6-9.7 [facility] Comment on above: Performed By: #### C MP, CBC, HS TROP, CK #### [address] ABG Oxygen Saturation 95.5 % Normal 95.0-100.0 [facility] Comment on above: Performed By: #### C MP, CBC, HS TROP, CK #### [address] ABG PCO2 46.7 mm[Hg] High 35.0-45.0 [facility] Comment on above: Performed By: #### C MP, CBC, HS TROP, CK #### [address] ABG PH 7.33 Low 7.35-7.45 [facility] Comment on above: Performed By: #### C MP, CBC, HS TROP, CK #### [address] ABG PO2 84.0 mm[Hg] Normal 80.0-100.0 [facility] Comment on above: Performed By: #### C MP, CBC, HS TROP, CK #### [address] Oxygen Device Nasal Cannula Normal [facility] Comment on above: Performed By: #### C MP, CBC, HS TROP, CK #### [address] Respiratory Critical Normal [facility] Comment on above: Result Comment: Crit ical Value called on: 12/27/2023 at 11:36 PERFORMED BY: [place] [address] PATHOLOGIST GEOTHERMAL OPERATIONS ENGINEER JENNIFER ALANIZ M.D. Performed By: #### C MP, CBC, HS TROP, CK #### [address] VBG Draw Site Left Radial Normal [facility] Comment on above: Performed By: #### C MP, CBC, HS TROP, CK #### [address] Arterial Blood GasOrdered By : Bernardino Gifford on 12-27-2023 CO2 [Moles/Vol] 25.3 mmol/L 23.0-27.0 [facility] Comment on above: Performed By: #### C MP, CBC, HS TROP, CK #### [address] HCO3 (Bld) [Moles/Vol] 23.8 mmol/L 23.0-29.0 [facility] Comment on above: Performed By: #### C MP, CBC, HS TROP, CK #### [address] Aspartate aminotransferase [ Enzymatic activity/volume] in Serum or PlasmaOrdered By: Bernardino Gifford on 12-27-2023 AST [Catalytic activity/Vol] 10 U/L Low 13-39 [facility] Comment on above: Performed By: #### C MP, CBC, HS TROP, CK #### [address] Automated basophil %Ordered By: Bernardino Gifford on 12-27-2023 Basophils/100 WBC (Bld) 0.6 % . [facility] Comment on above: Performed By: #### C MP, CBC, HS TROP, CK #### [address] Automated basophil countOrde red By: Bernardino Gifford on 12-27-2023 Basophils (Bld) [#/Vol] 0.1 10*3/uL 0.0-0.2 [facility] Comment on above: Result Comment: PERF ORMED BY: [place] [address] PATHOLOGIST GEOTHERMAL OPERATIONS ENGINEER JENNIFER ALANIZ M.D. Performed By: #### C MP, CBC, HS TROP, CK #### [address] Automated blood monocyte cou ntOrdered By: Bernardino Gifford on 12-27-2023 Monocytes (Bld) [#/Vol] 1.3 10*3/uL High 0.0-0.8 [facility] Comment on above: Performed By: #### C MP, CBC, HS TROP, CK #### [address] Automated eosinophil %Ordere d By: Bernardino Gifford on 12-27-2023 Eosinophils/100 WBC (Bld) 0.6 % . [facility] Comment on above: Performed By: #### C MP, CBC, HS TROP, CK #### [address] Automated eosinophil countOr dered By: Bernardino Gifford on 12-27-2023 Eosinophils (Bld) [#/Vol] 0.1 10*3/uL 0.0-0.45 [facility] Comment on above: Performed By: #### C MP, CBC, HS TROP, CK #### [facility] [address] Automated monocyte %Ordered By: Bernardino Gifford on 12-27-2023 Monocytes/100 WBC (Bld) 9.8 % . [facility] Comment on above: Performed By: #### C MP, CBC, HS TROP, CK #### [facility] [address] [place] [address] Automated neutrophil %Ordere d By: Bernardino Gifford on 12-27-2023 Neutrophils/100 WBC (Bld) 61.6 % . [facility] Comment on above: Performed By: #### C MP, CBC, HS TROP, CK #### [address] BNP ser/plasOrdered By: Urbano Gifford on 12-27-2023 Natriuretic peptide B (Bld) [Mass/Vol] 32.0 pg/mL 5-100 [facility] Comment on above: Result Comment: PERF ORMED BY: [place] [address] PATHOLOGIST GEOTHERMAL OPERATIONS ENGINEER JENNIFER ALANIZ M.D. Performed By: #### C MP, CBC, HS TROP, CK #### [address] Bacteria [Presence] in Urine sediment by Light microscopyOrdered By: Bernardino Gifford on 12-27-2023 Bacteria LM Ql (Urine sed) 1+ [HPF] High None Seen [facility] Comment on above: Microscopic results may be affected due to low specimen volume. Bacterial blood cultureOrder ed By: Bernardino Gifford on 12-27-2023 Bacteria identified Cx Nom (Bld) NO GROWTH 5 DAYS [facility] Bacteria identified Cx Nom (Bld) NO GROWTH 5 DAYS [facility] Bilirubin Test strip Ql (U)O rdered By: Bernardino Gifford on 12-27-2023 Bilirubin Ql (U) Negative Negative [facility] Bilirubin.total [Mass/volume ] in Serum or PlasmaOrdered By: Bernardino Gifford on 12-27-2023 Bilirubin [Mass/Vol] 0.3 mg/dL 0.3-1.0 [facility] Comment on above: Performed By: #### C MP, CBC, HS TROP, CK #### [address] Blood Cultureon 12-27-2023 Bacteria identified Cx Nom (Bld) NO GROWTH 5 DAYS PERFORMED BY: [place] [address] PATHOLOGIST GEOTHERMAL OPERATIONS ENGINEER JENNIFER ALANIZ M.D. Normal [facility] Comment on above: Performed By: #### C MP, CBC, HS TROP, CK #### [address] Bacteria identified Cx Nom (Bld) NO GROWTH 5 DAYS PERFORMED BY: [place] [address] PATHOLOGIST GEOTHERMAL OPERATIONS ENGINEER JENNIFER ALANIZ M.D. Normal [facility] Comment on above: Performed By: #### C MP, CBC, HS TROP, CK #### [address] angio chest PE protocolon 12-27-2023 CT angio chest PE protocol [facility] Main [place] [address] [place] [address] CT Scan Report Signed Patient: Bhupendra Rubi MR#: [id number] 306 : 1950 Acct:[id number] Age/Sex: 73 / F ADM Date: 12/27/23 Loc: ER Room: Type: [facility] Attending Dr: Copies to: Bernardino Gifford MD [...] The basilar atelectasis. Impression dictated by: Adam eBrger M.D.12/27/2023 12:14 PM Dictation Location: [place] [address] Transcribed By: [facility] 12/27/23 1214 Dictated By: Adam Berger DO 12/27/23 1210 Signed By: 12/27/23 1214 Normal [facility] Calcium [Mass/volume] in Ser um or PlasmaOrdered By: Bernardino Gifford on 12-27-2023 Calcium [Mass/Vol] 9.3 mg/dL 8.6-10.3 [facility] Comment on above: Performed By: #### C MP, CBC, HS TROP, CK #### [facility] [address] [place] [address] [place] Carbon dioxide, total [Moles /volume] in Serum or PlasmaOrdered By: Bernardino Gifford on 12-27-2023 CO2 [Moles/Vol] 26.9 mmol/L 21.0-31.0 [facility] Comment on above: Performed By: #### C MP, CBC, HS TROP, CK #### [facility] [address] [place] [address] [place] Chloride [Moles/volume] in S [place] or PlasmaOrdered By: Bernardino Gifford on 12-27-2023 Chloride [Moles/Vol] 104 mmol/L 98-107 [facility] Comment on above: Performed By: #### C MP, CBC, HS TROP, CK #### [facility] [address] [place] [address] [place] Color of Urine by AutoOrdere d By: Bernardino Gifford on 12-27-2023 Color (U) Yellow Yellow [facility] Comment on above: Order Comment: Name Collection Type:: Clean-Voided Midstream Performed By: #### A ETTA HIDALGOU #### [address] Complete Blood Count Auto Di ffon 12-27-2023 Mean Corpuscular HGB Conc 33.0 g/dL Normal 32.0-35.0 [facility] Comment on above: Performed By: #### C MP, CBC, HS TROP, CK #### [place] [address] [place] Monocytes/100 WBC (Bld) 19.53 % Normal 0.00-20.00 [facility] Comment on above: Performed By: #### C MP, CBC, HS TROP, CK #### [address] NRBC% 0.1 /100{WBC} Normal 0-0.5 [facility] Comment on above: Performed By: #### C MP, CBC, HS TROP, CK #### [address] Comprehensive Metabolic Pane agata 12-27-2023 Albumin [Mass/Vol] 4.0 g/dL Normal 3.5-5.7 [facility] Comment on above: Performed By: #### C MP, CBC, HS TROP, CK #### [place] [address] [place] Creatinine Clr Calc Pharmacy 50.59 Normal [facility] Comment on above: Result Comment: PERF ORMED BY: [place] [address] PATHOLOGIST GEOTHERMAL OPERATIONS ENGINEER JENNIFER ALANIZ M.D. Performed By: #### C MP, CBC, HS TROP, CK #### [address] GFR/1.73 sq M.predicted MDRD (S/P/Bld) [Vol rate/Area] mL/min/{1.73_m2} Normal [facility] Comment on above: Performed By: #### C MP, CBC, HS TROP, CK #### [address] Creatine kinase [Enzymatic a ctivity/volume] in Serum or PlasmaOrdered By: Bernardino Gifford on 12-27-2023 CK [Catalytic activity/Vol] 41 U/L 30-223 [facility] Comment on above: Performed By: #### C MP, CBC, HS TROP, CK #### [address] Creatinine [Mass/volume] in Serum or PlasmaOrdered By: Bernardino Gifford on 12-27-2023 Creatinine [Mass/Vol] 0.94 mg/dL 0.60-1.20 [facility] Comment on above: Performed By: #### C MP, CBC, HS TROP, CK #### [address] D-Dimer High Sensitivityon 0 12-27-2023 D-Dimer High Sensitivity 480 ng/mL High 0-243 [facility] Comment on above: Result [...] coagulation studies. Please contact the laboratory at [phone] for redraw instructions. PERFORMED BY: [place] [address] PATHOLOGIST GEOTHERMAL OPERATIONS ENGINEER JENNIFER ALANIZ M.D. Performed By: #### C MP, CBC, HS TROP, CK #### [place] [address] [place] Dipstick and Microscopicon 0 12-27-2023 Bacteria,Urine 1+ High None Seen [facility] Comment on above: Order Comment: Name Collection Type:: Clean-Voided Midstream Result Comment: Micr oscopic results may be affected due to low specimen volume. PERFORMED BY: [place] [address] PATHOLOGIST GEOTHERMAL OPERATIONS ENGINEER JENNIFER ALANIZ M.D. Performed By: #### A DDONUAPLUS, CUU #### [place] [address] [place] Bilirubin,Urine Negative Normal Negative [facility] Comment on above: Order Comment: Name Collection Type:: Clean-Voided Midstream Performed By: #### A DDONUAPLUS, CUU #### [place] [address] [place] Glucose Ql (U) Normal Normal Normal [facility] Comment on above: Order Comment: Name Collection Type:: Clean-Voided Midstream Performed By: #### A DDONUAPLUS, CUU #### [place] [address] [place] Nitrite,Urine Negative Normal Negative [facility] Comment on above: Order Comment: Name Collection Type:: Clean-Voided Midstream Performed By: #### A DDONUAPLUS, CUU #### [place] [address] [place] Occult Blood,Urine Negative Normal Negative [facility] Comment on above: Order Comment: Name Collection Type:: Clean-Voided Midstream Result Comment: PERF ORMED BY: [place] [address] PATHOLOGIST GEOTHERMAL OPERATIONS ENGINEER JENNIFER ALANIZ M.D. Performed By: #### A DDONUAPLUS, CUU #### [place] [address] [place] Protein,Urine Negative Normal Negative [facility] Comment on above: Order Comment: Name Collection Type:: Clean-Voided Midstream Performed By: #### A DDONUAPLUS, CUU #### [address] RBC,Urine None Seen Normal 0-4 [facility] Comment on above: Order Comment: Name Collection Type:: Clean-Voided Midstream Result Comment: Micr oscopic results may be affected due to low specimen volume. Performed By: #### A DDONUAPLUS, CUU #### [address] Specificy [place],Urine 1.043 High 1.00 1-1.03 0 [facility] Comment on above: Order Comment: Name Collection Type:: Clean-Voided Midstream Performed By: #### A DDONUAPLUS, CUU #### [place] [address] [place] Squamous Epithelial Cell,Urine 5-9 High 0-2 [facility] Comment on above: Order Comment: Name Collection Type:: Clean-Voided Midstream Result Comment: Micr oscopic results may be affected due to low specimen volume. Performed By: #### A DDONUAPLUS, CUU #### [place] [address] [place] Urobilinogen,Urine Normal Normal Normal [facility] Comment on above: Order Comment: Name Collection Type:: Clean-Voided Midstream Performed By: #### A DDONUAPLUS, CUU #### [place] [address] [place] WBC,Urine 5-9 High 0-4 [facility] Comment on above: Order Comment: Name Collection Type:: Clean-Voided Midstream Result Comment: Micr oscopic results may be affected due to low specimen volume. Performed By: #### A DDONUAPLUS, CUU #### [address] ECG 12 lead ECGon 12-27-2023 ECG 12 lead ECG [facility] Main [facility] [address] [place] [address] Electrocardiograph Report Signed Patient: Bhupendra Rubi MR#: [id number] 306 : 1950 Acct:[id number] Age/Sex: 73 / F ADM Date: 12/27/23 Loc: ER Room: Type: [facility] ER Attending Dr: Ordering Provider: [...] By Bernardino Gifford MD 12/11 Normal [facility] Epithelial cells.squamous [# /area] in Urine sediment by Microscopy high power fieldOrdered By: Bernardino Gifford on 12-27-2023 Epithelial cells.squamous LM.HPF (Urine sed) [#/Area] 5-9 [HPF] High 0-2 [facility] Comment on above: Microscopic results may be affected due to low specimen volume. Erythrocyte distribution wid th [Ratio] by Automated countOrdered By: Bernardino Gifford on 12-27-2023 Erythrocyte distribution width (RBC) [Ratio] 15.6 % High 11.9-15.3 [facility] Comment on above: Performed By: #### C MP, CBC, HS TROP, CK #### [facility] [address] [place] [address] Erythrocytes [#/area] in Uri ne sediment by Microscopy high power fieldOrdered By: Bernardino Gifford on 12-27-2023 RBC LM.HPF (Urine sed) [#/Area] None seen [HPF] 0-4 [facility] Comment on above: Microscopic results may be affected due to low specimen volume. Erythrocytes [#/volume] in B lood by Automated countOrdered By: Bernardino Gifford on 12-27-2023 RBC (Bld) [#/Vol] 5.03 10*6/uL High 3.60-5.00 [facility] Comment on above: Performed By: #### C MP, CBC, HS TROP, CK #### [facility] [address] [id number] [place] Fecal occult blood detection by immunochemistryOrdered By: Bernardino Gifford on 12-27-2023 Hemoglobin.gastrointesti nal Ql (Stl) [facility] Fibrin D-dimer [Presence] in Platelet poor plasma by Latex agglutinationOrdered By: Bernardino Gifford on 12-27-2023 Fibrin D-dimer LA Ql (PPP) 480 ng/mL High 0-243 [facility] Comment on above: The reference range [...] coagulation studies. Please contact the laboratory at [phone] for redraw instructions. Glucose [Mass/volume] in Ser um or PlasmaOrdered By: Bernardino Gifford on 12-27-2023 Glucose [Mass/Vol] 120 mg/dL High 70-100 [facility] Comment on above: ADA recommended refe rence rangeRandom Glucose Reference Range is dependent on time and content of last meal. Glucose of more than 200 mg/dL in a nonstressed, ambulatory subject supports the diagnosis of Diabetes Mellitus. Result Comment: [place] om Glucose Reference Range is dependent on time and content of last meal. Glucose of more than 200 mg/dL in a nonstressed, ambulatory subject supports the diagnosis of Diabetes Mellitus. ADA recommended reference range Performed By: #### C MP, CBC, HS TROP, CK #### [facility] [address] [place] [address] [place] Glucose [Mass/volume] in Uri ne by Test stripOrdered By: Bernardino Gifford on 12-27-2023 Glucose Test strip (U) [Mass/Vol] Normal mg/dL Normal [facility] Hematocrit [Volume Fraction] of Blood by Automated countOrdered By: Bernardino Gifford on 12-27-2023 Hematocrit (Bld) [Volume fraction] 44.0 % 34.0-46.4 [facility] Comment on above: Performed By: #### C MP, CBC, HS TROP, CK #### [facility] [address] Hemoglobin Test strip Ql (U) Ordered By: Bernardino Gifford on 12-27-2023 Hemoglobin Ql (U) Negative Negative [facility] Hemoglobin [Mass/volume] in BloodOrdered By: Bernardino Gifford on 12-27-2023 Hemoglobin (Bld) [Mass/Vol] 14.5 g/dL 11.8-15.4 [facility] Comment on above: Performed By: #### C MP, CBC, HS TROP, CK #### [facility] [address] INR in Platelet poor plasma by Coagulation assayOrdered By: Bernardino Gifford on 12-27-2023 INR Coag (PPP) [Relative time] 1.0 {INR} [facility] Comment on above: INR Therapeutic Rang [...] C MP, CBC, HS TROP, CK #### [facility] [address] Ketones [Presence] in Urine by Test stripOrdered By: Bernardino Gifford on 12-27-2023 Ketones Ql (U) Negative Negative [facility] Comment on above: Order Comment: Name Collection Type:: Clean-Voided Midstream Performed By: #### A GWEN, CUU #### [facility] [address] [place] [address] [place] Lactate [Moles/volume] in Se rum or PlasmaOrdered By: Bernardino Gifford on 12-27-2023 Lactate [Moles/Vol] 1.6 mmol/L 0.5-2.2 [facility] Comment on above: Result Comment: PERF ORMED BY: [place] [address] PATHOLOGIST GEOTHERMAL OPERATIONS ENGINEER JENNIFER ALANIZ M.D. Performed By: #### C MP, CBC, HS TROP, CK #### [facility] [address] [place] [address] [place] Leukocyte esterase [Presence ] in Urine by Test stripOrdered By: Bernardino Gifford on 12-27-2023 Leukocyte esterase Test strip Ql (U) 4+ High Negative [facility] Comment on above: Order Comment: Name Collection Type:: Clean-Voided Midstream Performed By: #### A MELONIEUACEZAR, CUU #### [facility] [address] [place] [address] Leukocytes [#/area] in Urine sediment by Microscopy high power fieldOrdered By: Bernardino Gifford on 12-27-2023 WBC LM.HPF (Urine sed) [#/Area] 5-9 [HPF] High 0-4 [facility] Comment on above: Microscopic results may be affected due to low specimen volume. Leukocytes [#/volume] correc pilar for nucleated erythrocytes in Blood by Automated counOrdered By: Bernardino Gifford on 12-27-2023 WBC corrected for nucl RBC Auto (Bld) [#/Vol] 13.4 10*3/uL High 3.8-11.6 [facility] Leukocytes [#/volume] in Blo od by Automated countOrdered By: Bernardino Gifford on 12-27-2023 WBC (Bld) [#/Vol] 13.4 10*3/uL High 3.8-11.6 [facility] Comment on above: Performed By: #### C MP, CBC, HS TROP, CK #### [facility] [address] Lymphocytes [#/volume] in Bl ood by Automated countOrdered By: Bernardino Gifford on 12-27-2023 Lymphocytes (Bld) [#/Vol] 3.7 10*3/uL 1.00-4.8 [facility] Comment on above: Performed By: #### C MP, CBC, HS TROP, CK #### [address] Lymphocytes/100 leukocytes i n Blood by Automated countOrdered By: Bernardino Gifford on 12-27-2023 Lymphocytes/100 WBC (Bld) 27.4 % . [facility] Comment on above: Performed By: #### C MP, CBC, HS TROP, CK #### [facility] [address] [place] [address] MCH [Entitic mass] by Automa pilar countOrdered By: Bernardino Gifford on 12-27-2023 MCH (RBC) [Entitic mass] 28.9 pg 24.7-34.3 [facility] Comment on above: Performed By: #### C MP, CBC, HS TROP, CK #### [address] MCHC Auto (RBC) [Mass/Vol]Or dered By: Bernardino Gifford on 12-27-2023 MCHC (RBC) [Mass/Vol] 33.0 g/dL 32.0-35.0 [facility] MCV [Entitic volume] by Auto mated countOrdered By: Bernardino Gifford on 12-27-2023 MCV (RBC) [Entitic vol] 87.6 fL 80-100 [facility] Comment on above: Performed By: #### C MP, CBC, HS TROP, CK #### [address] Monocyte distribution width [Entitic volume] in Blood by AutomatedOrdered By: Bernardino Gifford on 12-27-2023 Monocyte distribution width Auto (Bld) [Entitic vol] 19.53 % 0.00-20.00 [facility] Neutrophils [#/volume] in Bl ood by Automated countOrdered By: Bernardino Gifford on 12-27-2023 Neutrophils (Bld) [#/Vol] 8.3 10*3/uL High 1.8-7.7 [facility] Comment on above: Performed By: #### C MP, CBC, HS TROP, CK #### [facility] [address] Nitrite Test strip Ql (U)Ord ered By: Bernardino Gifford on 12-27-2023 Nitrite Ql (U) Negative Negative [facility] No Panel InformationOrdered By: Bernardino Gifford on 12-27-2023 Arterial Blood Base Excess -2.4 mmol/L -3.0-3.0 [facility] Arterial Blood Oxygen Content 7.5 mmol/L 6.6-9.7 [facility] Arterial Blood Oxygen Saturation 95.5 % 95.0-100.0 [facility] Arterial Blood Partial Pressure CO2 46.7 mm[Hg] High 35.0-45.0 [facility] Arterial Blood Partial Pressure O2 84.0 mm[Hg] 80.0-100.0 [facility] Arterial Blood pH 7.33 Low 7.35-7.45 [facility] Blood Gas Critical Value See comment [facility] Comment on above: Critical Value chaves d on: 12/27/2023 at 11:36 Blood Gas Liter Flow 3 L/min [facility] Blood Gas Sample Site Left radial [facility] FiO2 32 % [facility] Oxygen Delivery Device Nasal cannula [facility] Estimated GFR (CKD-EPI) > 60.0 mL/Min [facility] Creatinine Clearance (Chem 50.59 [facility] Nucleated erythrocytes [Pres ence] in Blood by Automated countOrdered By: Bernardino Gifford on 12-27-2023 Nucleated RBC Auto Ql (Bld) 0.1 /100{WBC} 0-0.5 [facility] Partial Thromboplastin Timeo n 12-27-2023 aPTT Coag (Bld) [Time] 24.6 s Low 25.1-36.5 [facility] Comment on above: Result Comment: A he matocrit value greater than 55% may lead to inaccurate results in coagulation testing. Patients having hematocrit values >55% require a special collection tube for coagulation studies. Please contact the laboratory at [phone] for redraw instructions. Performed By: #### C MP, CBC, HS TROP, CK #### [address] Platelet mean volume [Entiti c volume] in Blood by Automated countOrdered By: Bernardino Gifford on 12-27-2023 Platelet mean volume (Bld) [Entitic vol] 8.3 fL 6.3-10.7 [facility] Comment on above: Performed By: #### C MP, CBC, HS TROP, CK #### [address] Platelets [#/volume] in Bloo d by Automated countOrdered By: Bernardino Gifford on 12-27-2023 Platelets (Bld) [#/Vol] 399 10*3/uL 150-450 [facility] Comment on above: Performed By: #### C MP, CBC, HS TROP, CK #### [address] Potassium [Moles/volume] in Serum or PlasmaOrdered By: Bernardino Gifford on 12-27-2023 Potassium [Moles/Vol] 3.7 mmol/L 3.5-5.1 [facility] Comment on above: Performed By: #### C MP, CBC, HS TROP, CK #### [address] Protein Test strip (U) [Mass /Vol]Ordered By: Bernardino Gifford on 12-27-2023 Protein (U) [Mass/Vol] Negative Negative [facility] Protein [Mass/volume] in Ser um or PlasmaOrdered By: Bernardino Gifford on 12-27-2023 Protein [Mass/Vol] 6.8 g/dL 6.4-8.9 [facility] Comment on above: Performed By: #### C MP, CBC, HS TROP, CK #### [address] Prothrombin time (PT)Ordered By: Bernardino Gifford on 12-27-2023 PT Coag (PPP) [Time] 11.5 s 9.0-12.9 [facility] Comment on above: A hematocrit value g reater than 55% may lead to inaccurate results in coagulation testing. Patients having hematocrit values >55% require a special collection tube for coagulation studies. Please contact the laboratory at [phone] for redraw instructions. Result Comment: A he matocrit value greater than 55% may lead to inaccurate results in coagulation testing. Patients having hematocrit values >55% require a special collection tube for coagulation studies. Please contact the laboratory at [phone] for redraw instructions. Performed By: #### C MP, CBC, HS TROP, CK #### [address] Serum globulin measurement b y calculation (mass/volume)Ordered By: Bernardino Gifford on 12-27-2023 Globulin (S) [Mass/Vol] 2.8 g/dL [facility] Comment on above: Performed By: #### C MP, CBC, HS TROP, CK #### [address] Serum or plasma albumin/glob ulin mass ratioOrdered By: Bernardino Gifford on 12-27-2023 Albumin/Globulin [Mass ratio] 1.4 {ratio} [facility] Comment on above: Performed By: #### C MP, CBC, HS TROP, CK #### [address] Serum or plasma anion gap de terminationOrdered By: Bernardino Gifford on 12-27-2023 Anion gap [Moles/Vol] 12.8 mmol/L 6.0-15.0 [facility] Comment on above: Performed By: #### C MP, CBC, HS TROP, CK #### [address] Sodium [Moles/volume] in Ser um or PlasmaOrdered By: Bernardino Gifford on 12-27-2023 Sodium [Moles/Vol] 140 mmol/L 136-145 [facility] Comment on above: Performed By: #### C MP, CBC, HS TROP, CK #### [address] Specific gravity Test strip (U) [Rel density]Ordered By: Bernardino Gifford on 12-27-2023 Specific gravity (U) [Rel density] 1.043 High 1.001-1.03 0 [facility] Stool Occult Blood (Guaiac)o n 12-27-2023 Stool Occult Blood (Guaiac) Occult Blood Negative for Occult Blood by Guaiac Methodology ---- Reference range = Negative PERFORMED BY: [place] [address] PATHOLOGIST GEOTHERMAL OPERATIONS ENGINEER JENNIFER ALANIZ M.D. Normal [facility] Comment on above: Performed By: #### O B(GUAIAC) #### [address] Troponin I High Sensitivityo n 12-27-2023 Troponin I High Sensitivity < 2.3 Normal 0.0-15.0 [facility] Comment on above: Result Comment: PERF ORMED BY: [place] [address] PATHOLOGIST GEOTHERMAL OPERATIONS ENGINEER JENNIFER ALANIZ M.D. Performed By: #### C MP, CBC, HS TROP, CK #### [address] Troponin I.cardiac [Mass/vol ume] in Serum or Plasma by Detection limit <= 0.01 ng/Ordered By: Bernardino Gifford on 12-27-2023 Troponin I.cardiac DL <= 0.01 ng/mL [Mass/Vol] < 2.3 pg/mL 0.0-15.0 [facility] Type and Screenon 12-27-2023 ABO and Rh group Nom (Bld) Blood group A Rh(D) positive Normal [facility] Urea nitrogen [Mass/volume] in Serum or PlasmaOrdered By: Bernardino Gifford on 12-27-2023 Urea nitrogen [Mass/Vol] 13 mg/dL 7-25 [facility] Comment on above: Performed By: #### C MP, CBC, HS TROP, CK #### [facility] [address] [place] [address] Urine Cultureon 12-27-2023 Bacteria identified Cx Nom (U) 50,000 colonies/ml mixed bacterial skin contaminants 2 Days PERFORMED BY: [place] [address] PATHOLOGIST GEOTHERMAL OPERATIONS ENGINEER JENNIFER ALANIZ M.D. Normal [facility] Comment on above: Performed By: #### A DDONUACEZAR, CUU #### [address] Urine appearanceOrdered By: Bernardino Gifford on 12-27-2023 Appearance (U) Cloudy Abnormal Clear [facility] Comment on above: Order Comment: Name Collection Type:: Clean-Voided Midstream Performed By: #### A DDONUAPLUS, CUU #### [address] Urine culture routineOrdered By: Bernardino Gifford on 12-27-2023 Bacteria identified Cx Nom (U) 2 Days [facility] Urobilinogen Test strip (U) [Mass/Vol]Ordered By: Bernardino Gifford on 12-27-2023 Urobilinogen (U) [Mass/Vol] Normal mg/dL Normal [facility] XR chest 1V portableon 12-26 XR chest 1V portable [facility] [place] [address] XRay Report Signed Patient: Bhupendra Rubi MR#: [id number] 306 : 1950 Acct:[id number] Age/Sex: 73 / F ADM Date: 12/27/23 Loc: ER Room: Type: [facility] ER Attending Dr: Copies to: Bernardino Gifford [...] Adam Berger M.D.12/27/2023 12:16 PM Dictation Location: [place] [address] Transcribed By: [facility] 12/27/23 1216 Dictated By: Adam Berger DO 12/27/23 1204 Signed By: 12/27/23 1216 Normal [facility] pH of Urine by Test stripOrd ered By: Bernardino Gifford on 12-27-2023 pH (U) 6.0 [pH] 5.0-9.0 [facility] Comment on above: Order Comment: Name Collection Type:: Clean-Voided Midstream Performed By: #### A DDONUACEZAR, CUU #### [address] Provider Letteron 06-23-2023 Provider Letter (Inserted Image. Es ble to display) June 23, 2023 BHUPENDRA RUBI [address] [place] [id number] : 1950 Dear Bhupendra, We are reaching out to inform you that Dr. Turner is now approved and credentialed with your insurance. Please call our office at your earliest convenience to schedule the EGD that was recommended at your last visit. Thank you for your prompt attention to this matter. Sincerely, [facility] [phone] Normal [facility] US carotid doppler BIon 03-13 US carotid doppler BI [facility] Main [place] [address] [id number] Ultrasound Report Signed Patient: Bhupendra Rubi MR#: [id number] 6 : 1950 Acct:[id number] Age/Sex: 72 / U ADM Date: 03/25/23 Loc: [facility] Room: Type[facility] Attending Dr: Cherelle Bautista [employer]ORE [employer]SEM[employer] SUPERVISOR-C Ordering Provider: Cherelle Bautista APRN Date [...] Nigel Valladares MD03/25/2023 1:50 PM Dictation Location: [place] [address] Tech: Yakelin Gibson Transcribed By: [facility] 03/25/23 1350 Dictated By: Nigel Valladares MD 03/25/23 135 Signed By: 03/25/23 135 Normal [facility] CHEMISTRYOrdered By: SYSTEM SYSTEM on 01-01-2023 Ferritin [...] mmol/L Normal 101 - 1 11 mmol/L [facility] CO2 [Moles/Vol] 31 mmol/L Normal 21 - 31 mmol/L [facility] Creatinine [Mass/Vol] 1.0 mg/dL Normal 0.5 - 1.3 mg/dL [facility] GFR/1.73 sq M.predicted among non-blacks MDRD (S/P/Bld) [Vol rate/Area] 61 mL/min/1.73 m2 Normal >=59mL/min /1.73 m2 [facility] Chem S Globulin (S) [Mass/Vol] 3.5 g/dL [...] 12 mg/dL Normal 5 - 21 mg/dL [facility] Remisol Urea nitrogen/Creatinine [Mass ratio] 12 mg/mg [...] 11-11-2022 BASO # 0.1 103/ul Normal 0.0-0.1 [facility] Comment on above: Performed By: #### C BC #### [facility] [address] [address] [address] Anisa Gomez Basophils/100 WBC (Bld) 0.5 % Normal 0.2-2.0 [facility] Comment on above: Performed By: #### C BC #### [facility] [address] [place] [address] Dr. Anisa Gomez EO # 0.1 103/ul Normal 0.0-0.7 [facility] Comment on above: Performed By: #### C BC #### [facility] [address] [place] [address] Dr. Anisa Gomez Eosinophils/100 WBC (Bld) 0.8 % Critically low 0.9-7.0 [facility] Comment on above: Performed By: #### C BC #### [facility] [address] [place] [address] Dr. Anisa Gomez Erythrocyte distribution width (RBC) [Ratio] 15.2 % Critically high 11.0-15.0 [facility] Comment on above: Performed By: #### C BC #### [facility] [address] [place] [address] Dr. Anisa Gomez Hematocrit (Bld) [Volume fraction] 48.8 % Critically high 36.0-48.0 [facility] Comment on above: Performed By: #### C BC #### [facility] [address] [place] [address] Dr. Anisa Gomez Hemoglobin (Bld) [Mass/Vol] 15.8 g/dL Normal 12.0-16.0 [facility] Comment on above: Performed By: #### C BC #### [facility] [address] [place] [address] Dr. Anisa Gomez IG # 0.03 10e3/ul Normal 0.00-0.03 [facility] Comment on above: Performed By: #### C BC #### [facility] [address] [place] [address] Dr. Anisa Gomez IG % 0.2 % Normal 0.0-0.5 [facility] Comment on above: Performed By: #### C BC #### [facility] [address] [place] [address] Dr. Anisa Gomez LYMPH # 3.2 103/ul Normal 1.2-3.8 [facility] Comment on above: Performed By: #### C BC #### [facility] [address] [place] [address] Dr. Anisa Gomez Lymphocytes/100 WBC (Bld) 21.9 % Normal 20.5-60.0 [facility] Comment on above: Performed By: #### C BC #### [facility] [address] [place] [address] Dr. Anisa Gomez MANUAL DIFF REQ NO Normal [facility] Comment on above: Performed By: #### C BC #### [facility] [address] [place] [address] Dr. Anisa Gomez MCH (RBC) [Entitic mass] 29.9 pg Normal 26.7-34.0 [facility] Comment on above: Performed By: #### C BC #### [facility] [address] [place] [address] Dr. Anisa Gomez MCHC (RBC) [Mass/Vol] 32.4 g/dL Normal 29.9-35.2 [facility] Comment on above: Performed By: #### C BC #### [facility] [address] [place] [address] Dr. Anisa Gomez MCV (RBC) [Entitic vol] 92.2 fL Normal 81.0-99.0 [facility] Comment on above: Performed By: #### C BC #### [facility] [address] [place] [address] Dr. Anisa Gomez MONO # 1.2 103/ul Critically high 0.3-0.8 [facility] Comment on above: Performed By: #### C BC #### [facility] [address] [place] [address] Dr. Anisa Gomez Monocytes/100 WBC (Bld) 8.0 % Normal 1.7-12.0 [facility] Comment on above: Performed By: #### C BC #### [facility] [address] [place] [address] Dr. Anisa Gomez NEUT # 9.9 103/ul Critically high 1.4-6.5 [facility] Comment on above: Performed By: #### C BC #### [facility] [address] [place] [address] Dr. Anisa Gomez Neutrophils/100 WBC (Bld) 68.6 % Normal 43.0-75.0 [facility] Comment on above: Performed By: #### C BC #### [facility] [address] [place] [address] Dr. Anisa Gomez Platelet mean volume (Bld) [Entitic vol] 10.6 fL Normal 9.5-13.5 [facility] Comment on above: Performed By: #### C BC #### [facility] [address] [place] [address] Dr. Anisa Gomez PLT 336 103/ul Normal 150-450 [facility] Comment on above: Performed By: #### C BC #### [facility] [address] [place] [address] Dr. Anisa Gomez RBC 5.29 106/ul Normal 4.20-5.40 [facility] Comment on above: Performed By: #### C BC #### [facility] [address] [place] [address] Dr. Anisa Gomez WBC 14.4 103/ul Critically high 4.0-11.0 [facility] Comment on above: Performed By: #### C BC #### [facility] [address] [place] [address] Dr. Anisa Gomez CTA ABD/PELVIS WO W [...] by: LAYNE HO Date: 2022-11-11 18:[address] [facility] CTA CHEST WO W CONon 023 CTA CHEST WO W CON EXAMINATION: CTA [facility] ST WO W CON HISTORY: CHEST [...] ANDRES UNLU Date: 2022-11-11 17:48 Normal [facility] ER URINE PROFILEon 3 Bilirubin Ql (U) Negative Normal NEGATIVE [facility] Comment on above: Performed By: #### E RUR ####[facility] [address] [place], [place] [address]Dr. Anisa Gomez Clarity (U) CLEAR Normal CLEAR [facility] Comment on above: Performed By: #### E RUR ####[facility] [address] [place], [place] [address]Dr. Anisa Gomez Color (U) LT. YELLOW Normal YELLOW [facility] Comment on above: Performed By: #### E RUR ####[facility] [address] [place], [place] [address]Dr. Anisa SHANKSAHD A micrscopic examina tion will be performed if indicated. Normal [facility] Comment on above: Performed By: #### E RUR ####[facility] [address] [place], [place] [address]Dr. Anisa Gomez Glucose Ql (U) Negative Normal NEGATIVE [facility] Comment on above: Performed By: #### E RUR ####[facility] [address] [place], [place] [address]Dr. Ainsa Gomez Hemoglobin Ql (U) Negative Normal NEGATIVE [facility] Comment on above: Performed By: #### E RUR ####[facility] [address] [place], [place] [address]Dr. Anisa Gomez Ketones Ql (U) Negative Normal NEGATIVE [facility] Comment on above: Performed By: #### E RUR ####[facility] [address] [place] [address]Dr. Anisa Gomez LEUKOCYTES Negative Normal NEGATIVE [facility] Comment on above: Performed By: #### E RUR ####[facility] [id number] [place] [address]Dr. Anisa Gomez Nitrite Ql (U) Negative Normal NEGATIVE [facility] Comment on above: Performed By: #### E RUR ####[facility] [address] [address]Dr. Anisa Gomez pH (U) 5.5 [pH] Normal 5-9 [facility] Comment on above: Performed By: #### E RUR ####[facility] [address] [address]Dr. Anisa Gomez SPEC GRAVITY >=1.030 Abnormal 1.005-<=1. 025 [facility] Comment on above: Performed By: #### E RUR ####[facility] [address] [place], [place] [address]Dr. Anisa Gomez UA PROTEIN Negative Normal NEGATIVE/ TRACE [facility] Comment on above: Performed By: #### E RUR ####[facility] [address] [place], [place] [address]Dr. Anisa Gomez UR MICRO IND NOT INDICATED Normal [facility] Comment on above: Performed By: #### E RUR ####[facility] [address] [address]Dr. Anisa Gomez Urobilinogen Qn (U) 0.2 {Agustin'U}/dL Normal 0.2 - 1. 0 [facility] Comment on above: Performed By: #### E RUR ####[facility] [address] [place], [place] [address]Dr. Anisa Gomez LIPASEon 11-11-2022 Lipase [Catalytic activity/Vol] 100.0 U/L Normal 73.0-393.0 [facility] Comment on above: Performed By: #### JANET BOOTH #### [facility] [address] [address] [address] Anisa Gomez LIVER PROFILEon 11-11-2022 Albumin [Mass/Vol] 3.8 g/dL Normal 3.4-5.0 [facility] Comment on above: Performed By: #### L IVER, LIPA #### [facility] [address] [address] [address] Anisa Gomez Albumin/Globulin [Mass ratio] 0.9 {ratio} Normal [facility] Comment on above: Performed By: #### L IVER, LIPA #### [facility] [address] [address] [address] Anisa Gomez ALP [Catalytic activity/Vol] 107 U/L Normal 46-116 [facility] Comment on above: Performed By: #### L IVKAMRAN, LIPA #### [facility] [address] [place] [address] Dr. Anisa Gomez ALT [Catalytic activity/Vol] 25 U/L Normal 14-59 [facility] Comment on above: Performed By: #### L IVKAMRAN, LIPA #### [facility] [address] [place] [address] Dr. Anisa Gomez AST [Catalytic activity/Vol] 25 U/L Normal 15-37 [facility] Comment on above: Performed By: #### L IVKAMRAN, LIPA #### [facility] [address] [place] [address] Dr. Anisa Gomez BILI, CONJUGATED 0.1 mg/dL Normal 0.0-0.2 [facility] Comment on above: Performed By: #### L IVKAMRAN, LIPA #### [facility] [address] [place] [address] Dr. Anisa Gomez Bilirubin [Mass/Vol] 0.5 mg/dL Normal 0.2-1.0 [facility] Comment on above: Performed By: #### L IVKAMRAN, LIPA #### [facility] [address] [place] [address] Dr. Anisa Gomez Globulin (S) [Mass/Vol] 4.0 g/dL Normal T [facility] Comment on above: Performed By: #### L IVKAMRAN, LIPA #### [facility] [address] [address] [address] Anisa Gomez Protein [Mass/Vol] 7.8 g/dL Normal 6.4-8.2 [facility] Comment on above: Performed By: #### L JANET OVALLE #### [facility] [address] [place] [address] Dr. Anisa Gomez PROF CHEM 8 (BAS METB)on Anion gap [Moles/Vol] 13.2 mmol/L Normal [facility] Comment on above: Performed By: #### B MP #### [facility] [address] [place] [address] Dr. Anisa Gomez Calcium [Mass/Vol] 9.4 mg/dL Normal 8.5-10.1 [facility] Comment on above: Performed By: #### B MP #### [facility] [address] [place] [address] Dr. Anisa Gomez Chloride [Moles/Vol] 103 mmol/L Normal 98-107 [facility] Comment on above: Performed By: #### B MP #### [facility] [address] [place] [address] Dr. Anisa Gomez CO2 [Moles/Vol] 29.3 mmol/L Normal 21.0-32.0 [facility] Comment on above: Performed By: #### B MP #### [facility] [address] [place] [address] Dr. Anisa Gomez Creatinine [Mass/Vol] 1.02 mg/dL Normal 0.55-1.02 [facility] Comment on above: Performed By: #### B MP #### [facility] [address] [place] [address] Dr. Anisa Gomez EGFR-AF ANDORRAN 60 mL/min/1.73m2 Normal >=60 [facility] Comment on above: Performed By: #### B MP #### [facility] [address] [place] [address] Dr. Anisa Gomez EGFR-NON AF ANDORRAN 54 mL/min/1.73m2 Critically low >=60 [facility] Comment on above: Performed By: #### B MP #### [facility] [address] [address] [address] Anisa Gomez Glucose [Mass/Vol] 102 mg/dL Normal 74-106 [facility] Comment on above: Performed By: #### B MP #### [facility] [id number] Anisa Gomez Potassium [Moles/Vol] 4.5 mmol/L Normal 3.5-5.1 [facility] Comment on above: Performed By: #### B MP #### [facility] [address] [address] [address] Anisa Gomez Sodium [Moles/Vol] 141 mmol/L Normal 136-145 [facility] Comment on above: Performed By: #### B MP #### [facility] [address] [address] [address] Anisa Gomez Urea nitrogen [Mass/Vol] 16.0 mg/dL Normal 7.0-18.0 [facility] Comment on above: Performed By: #### B MP #### [facility] [id number] Anisa Gomez Urea nitrogen/Creatinine [Mass ratio] 15.7 mg/mg Normal [facility] Comment on above: Performed By: #### B MP #### [facility] [address] [address] [address] CHEST WO CONon [...] is recommended for better evaluation. Normal [facility] HEMOGLOBINon 10-27-2022 Hemoglobin (Bld) [Mass/Vol] 14.5 g/dL Normal 12.0-16.0 [facility] Comment on above: Performed By: #### H GB ####[facility] [address] [place], [place] [address] CT LUNG CANCER SCREENINGon 0 07-24-2022 [...] by: ROMEL CERVANTES Date: 2022-07-24 17:20 Normal [facility] MAMM SCREEN 3D BRISSA CADon 07-09-2022 MAMM SCREEN 3D BRISSA CAD Patient: BHUPENDRA RUBI Exam Date: 07/09/2022 : 1950 Gender:F Ordering : SHAIKH Eddie HORAN . Admission #: [id number] Family : Order #: [id number] CLICK HERE TO VIEW EXAM RADIOLOGY REPORT PROCEDURE: MAMMOGRAM SCREENING 3D BILATERAL CAD COMPARISON: MAMM SCREEN BRISSA W CAD, 05/21/2015. MAMM SCREEN BRISSA W CAD, 08/10/2017. INDICATIONS: Screening mammography Calculator Name NCI Breast Cancer Risk Assessment Tool 5 Year Breast Cancer Risk Not Reported. Lifetime Breast Cancer Risk Not Reported. Personal Breast Cancer No Personal Ovarian Cancer No Treatments None Family Cancers None LOCATION: [facility] BREAST COMPOSITION: Heterogeneously dense,which may obscure small [...] Cervantes M.D. on 07/25/2022 at 08:51 Normal [facility] CBC AUTO DIFFon 05-07-2022 BASO # 0.1 103/ul Normal 0.0-0.1 [facility] Comment on above: Performed By: #### C BC #### [facility] [address] [place] [address] Dr. Anisa Gomez Basophils/100 WBC (Bld) 0.7 % Normal 0.2-2.0 [facility] Comment on above: Performed By: #### C BC #### [facility] [address] [place] [address] Dr. Anisa Gomez EO # 0.1 103/ul Normal 0.0-0.7 [facility] Comment on above: Performed By: #### C BC #### [facility] [address] [place] [address] Dr. Anisa Gomez Eosinophils/100 WBC (Bld) 0.6 % Critically low 0.9-7.0 [facility] Comment on above: Performed By: #### C BC #### [facility] [address] [place] [address] Dr. Anisa Gomez Erythrocyte distribution width (RBC) [Ratio] 14.9 % Normal 11.0-15.0 [facility] Comment on above: Performed By: #### C BC #### [facility] [address] [place] [address] Dr. Anisa Gomez Hematocrit (Bld) [Volume fraction] 48.4 % Critically high 36.0-48.0 [facility] Comment on above: Performed By: #### C BC #### [facility] [address] [place] [address] Dr. Anisa Gomez Hemoglobin (Bld) [Mass/Vol] 15.6 g/dL Normal 12.0-16.0 [facility] Comment on above: Performed By: #### C BC #### [facility] [address] [place] [address] Dr. Anisa Gomez IG # 0.02 10e3/ul Normal 0.00-0.03 [facility] Comment on above: Performed By: #### C BC #### [facility] [address] [place] [address] Dr. Anisa Gomez IG % 0.2 % Normal 0.0-0.5 [facility] Comment on above: Performed By: #### C BC #### [facility] [address] [place] [address] Dr. Anisa Gomez LYMPH # 2.9 103/ul Normal 1.2-3.8 [facility] Comment on above: Performed By: #### C BC #### [facility] [address] [place] [address] Dr. Anisa Gomez Lymphocytes/100 WBC (Bld) 28.6 % Normal 20.5-60.0 [facility] Comment on above: Performed By: #### C BC #### [facility] [address] [place] [address] Dr. Anisa Gomez MANUAL DIFF REQ NO Normal [facility] Comment on above: Performed By: #### C BC #### [facility] [address] [place] [address] Dr. Anisa Gomez MCH (RBC) [Entitic mass] 29.2 pg Normal 26.7-34.0 [facility] Comment on above: Performed By: #### C BC #### [facility] [address] [place] [address] Dr. Anisa Gomez MCHC (RBC) [Mass/Vol] 32.2 g/dL Normal 29.9-35.2 [facility] Comment on above: Performed By: #### C BC #### [facility] [address] [place] [address] Dr. Anisa Gomez MCV (RBC) [Entitic vol] 90.5 fL Normal 81.0-99.0 [facility] Comment on above: Performed By: #### C BC #### [facility] [address] [place] [address] Dr. Anisa Gomez MONO # 1.0 103/ul Critically high 0.3-0.8 [facility] Comment on above: Performed By: #### C BC #### [facility] [address] [address] [address] Anisa Gomez Monocytes/100 WBC (Bld) 9.5 % Normal 1.7-12.0 [facility] Comment on above: Performed By: #### C BC #### [facility] [address] [address] [address] Anisa Gomez NEUT # 6.2 103/ul Normal 1.4-6.5 [facility] Comment on above: Performed By: #### C BC #### [facility] [address] [address] [address] Anisa Gomez Neutrophils/100 WBC (Bld) 60.4 % Normal 43.0-75.0 [facility] Comment on above: Performed By: #### C BC #### [facility] [address] [place] [address] Dr. Anisa Gomez Platelet mean volume (Bld) [Entitic vol] 10.1 fL Normal 9.5-13.5 [facility] Comment on above: Performed By: #### C BC #### [facility] [address] [place] [address] Dr. Anisa Gomez PLT 403 103/ul Normal 150-450 [facility] Comment on above: Performed By: #### C BC #### [facility] [address] [place] [address] Dr. Anisa Gmoez RBC 5.35 106/ul Normal 4.20-5.40 [facility] Comment on above: Performed By: #### C BC #### [facility] [address] [place] [address] Dr. Anisa Gomez WBC 10.2 103/ul Normal 4.0-11.0 [facility] Comment on above: Performed By: #### C BC #### [facility] [address] [place] [address] Dr. Anisa Gomez LIPID PROFILEon 05-07-2022 CHOL-HDL RATIO NORM SEE BELOW Normal [facility] Comment on above: Result Comment: 3.3 - 4.4 LOW RISK 4.4 - 7.1 AVERAGE RISK 7.1 - 11.0 MODERATE RISK >11.0 HIGH RISK Performed By: #### L IPID, CMP ####[facility] [address] [address]Dr. Anisa Gomez Cholesterol [Mass/Vol] 242 mg/dL Critically high <=200 [facility] Comment on above: Performed By: #### L IPID, CMP ####[facility] [address] [place], [place] [address]Dr. Anisa Gomez Cholesterol in HDL [Mass/Vol] 49 mg/dL Normal 40-60 [facility] Comment on above: Performed By: #### L IPID, CMP ####[facility] [address] [place], [place] [address]Dr. Anisa Gomez Cholesterol in LDL [Mass/Vol] 148.4 mg/dL Normal [facility] Comment on above: Performed By: #### L IPID, CMP ####[facility] [address] [place], [place] [address]Dr. Anisa Gomez Cholesterol.total/Choles terol in HDL [Mass ratio] 4.9 {ratio} Normal [facility] Comment on above: Performed By: #### L IPID, CMP ####[facility] [address] [place], [place] [address]Dr. Anisa Gomez HDL NORMAL > or = 60 mg/dl - LO W CARDIOVASCULAR RISK <40 mg/dl - HIGH CARDIOVASCULAR RISK Normal [facility] Comment on above: Performed By: #### L IPID, CMP ####[facility] [address] [place], [place] [address]Dr. Anisa Gomez LDL CALC NORMAL SEE BELOW Normal [facility] Comment on above: Result Comment: <100 mg/dl OPTIMAL 100 - 129 mg/dl NEAR OR ABOVE OPTIMAL 130 - 159 mg/dl BORDERLINE HIGH 160 - 189 mg/dl HIGH >190 mg/dl VERY HIGH Performed By: #### L IPID, CMP ####[facility] [address] [place], [place] [address]Dr. Anisa Gomez Triglyceride [Mass/Vol] 223 mg/dL Critically high <=150 [facility] Comment on above: Performed By: #### L IPID, CMP ####[facility] [address] [address]Dr. Anisa Gomez VLDL CALC 44.6 mg/dL Normal [facility] Comment on above: Performed By: #### L IPID, CMP ####[facility] [address] [address]Dr. Anisa Gomez PROF 14(COMP METB)on 022 Albumin [Mass/Vol] 3.6 g/dL Normal 3.4-5.0 [facility] Comment on above: Performed By: #### L IPID, CMP ####[facility] [address] [address]Dr. Anisa Gomez Albumin/Globulin [Mass ratio] 1.0 {ratio} Normal [facility] Comment on above: Performed By: #### L IPID, CMP ####[facility] [address] [place], [place] [address]Dr. Anisa Gomez ALP [Catalytic activity/Vol] 95 U/L Normal 46-116 [facility] Comment on above: Performed By: #### L IPID, CMP ####[facility] [address] [place], [place] [address]Dr. Anisa Gomez ALT [Catalytic activity/Vol] 21 U/L Normal 14-59 [facility] Comment on above: Performed By: #### L IPID, CMP ####[facility] [address] [place], [place] [address]Dr. Anisa Gomez Anion gap [Moles/Vol] 6.3 mmol/L Normal [facility] Comment on above: Performed By: #### L IPID, CMP ####[facility] [address] [place], [place] [address]Dr. Anisa Gomez AST [Catalytic activity/Vol] 15 U/L Normal 15-37 [facility] Comment on above: Performed By: #### L IPID, CMP ####[facility] [address] [place], [place] [address]Dr. Anisa Gomez Bilirubin [Mass/Vol] 0.5 mg/dL Normal 0.2-1.0 [facility] Comment on above: Performed By: #### L IPID, CMP ####[facility] [address] [place], [place] [address]Dr. Anisa Gomez Calcium [Mass/Vol] 9.1 mg/dL Normal 8.5-10.1 [facility] Comment on above: Performed By: #### L IPID, CMP ####[facility] [address] [place], [place] [address]Dr. Anisa Gomez Chloride [Moles/Vol] 104 mmol/L Normal 98-107 [facility] Comment on above: Performed By: #### L IPID, CMP ####[facility] [address] [place], [place] [address]Dr. Anisa Gomez CO2 [Moles/Vol] 33.4 mmol/L Critically high 21.0-32.0 [facility] Comment on above: Performed By: #### L IPID, CMP ####[facility] [address] [place], [place] [address]Dr. Anisa Gomez Creatinine [Mass/Vol] 0.90 mg/dL Normal 0.55-1.02 [facility] Comment on above: Performed By: #### L IPID, CMP ####[facility] [address] [place], [place] [address]Dr. Anisa Gomez EGFR-AF ANDORRAN >60 Normal >=60 [facility] Comment on above: Performed By: #### L IPID, CMP ####[facility] [address] [place], [place] [address]Dr. Anisa Gomez EGFR-NON AF ANDORRAN >60 Normal >=60 [facility] Comment on above: Performed By: #### L IPID, CMP ####[facility] [address] [place], [place] [address]Dr. Anisa Gomez Globulin (S) [Mass/Vol] 3.7 g/dL Normal T [facility] Comment on above: Performed By: #### L IPID, CMP ####[facility] [address] [place], [place] [address]Dr. Anisa Gomez Glucose [Mass/Vol] 67 mg/dL Critically low 74-106 Th e [facility] Comment on above: Performed By: #### L IPID, CMP ####[facility] [address] [address]Dr. Anisa Gomez Potassium [Moles/Vol] 3.7 mmol/L Normal 3.5-5.1 [facility] Comment on above: Performed By: #### L IPID, CMP ####[facility] [address] [address]Dr. Anisa Gomez Protein [Mass/Vol] 7.3 g/dL Normal 6.4-8.2 [facility] Comment on above: Performed By: #### L IPID, CMP ####[facility] [address] [place], [place] [address]DrCathy Gomez Sodium [Moles/Vol] 140 mmol/L Normal 136-145 [facility] Comment on above: Performed By: #### L IPID, CMP ####[facility] [address] [address]DrCathy Gomez Urea nitrogen [Mass/Vol] 13.0 mg/dL Normal 7.0-18.0 [facility] Comment on above: Performed By: #### L IPID, CMP ####[facility] [address] [place], [place] [address]Dr. Anisa Gomez Urea nitrogen/Creatinine [Mass ratio] 14.4 mg/mg Normal [facility] Comment on above: Performed By: #### L IPID, CMP ####[facility] [address] [address]DrCathy Gomez UA RANDOM W/MICROSCOPICon BACTERIA NONE SEEN Normal NONE SEEN [facility] Comment on above: Performed By: #### U AMIC #### [facility] [address] [place] [address] Dr. Anisa Gomez Bilirubin Ql (U) Negative Normal NEGATIVE [facility] Comment on above: Performed By: #### U AMIC #### [facility] [address] [place] [address] Dr. Yilan Gomez CAST NONE SEEN Normal NONE SEEN [facility] Comment on above: Performed By: #### U AMIC #### [facility] [address] [place] [address] Dr. Anisa Gomez Clarity (U) CLEAR Normal CLEAR [facility] Comment on above: Performed By: #### U AMIC #### [facility] [address] [place] [address] Dr. Anisa Gomez Color (U) YELLOW Normal YELLOW [facility] Comment on above: Performed By: #### U AMIC #### [facility] [address] [place] [address] Dr. Anisa Gomez Crystals LM Nom (Urine sed) NONE SEEN Normal NONE SEEN [facility] Comment on above: Performed By: #### U AMIC #### [facility] [address] [place] [address] Dr. Anisa Gomez Epithelial cells LM Ql (Urine sed) RARE Normal NONE SEEN /RARE [facility] Comment on above: Performed By: #### U AMIC #### [facility] [address] [place] [address] Dr. Anisa Gomez Glucose Ql (U) Negative Normal NEGATIVE [facility] Comment on above: Performed By: #### U AMIC #### [facility] [address] [place] [address] Dr. Anisa Gomez Hemoglobin Ql (U) Negative Normal NEGATIVE [facility] Comment on above: Performed By: #### U AMIC #### [facility] [address] [place] [address] Dr. Anisa Gomez Ketones Ql (U) Negative Normal NEGATIVE [facility] Comment on above: Performed By: #### U AMIC #### [facility] [address] [place] [address] Dr. Anisa Gomez LEUKOCYTES Negative Normal NEGATIVE [facility] Comment on above: Performed By: #### U AMIC #### [facility] [address] [place] [address] Dr. Anisa Gomez MUCOUS NONE SEEN Normal NONE SEEN [facility] Comment on above: Performed By: #### U AMIC #### [facility] [address] [address] [address] Anisa Gomez Nitrite Ql (U) Negative Normal NEGATIVE [facility] Comment on above: Performed By: #### U AMIC #### [facility] [address] [place] [address] Dr. Anisa Gomez pH (U) 7.0 [pH] Normal 5-9 [facility] Comment on above: Performed By: #### U AMIC #### [facility] [address] [place] [address] Dr. Anisa Gomez RBC 0-2 Normal 0-2 [facility] Comment on above: Performed By: #### U AMIC #### [facility] [address] [place] [address] Dr. Anisa Gomez SPEC GRAVITY 1.010 Normal 1.005-<=1. 025 [facility] Comment on above: Performed By: #### U AMIC #### [facility] [address] [place] [address] Dr. Anisa Gomez UA PROTEIN Negative Normal NEGATIVE/ TRACE [facility] Comment on above: Performed By: #### U AMIC #### [facility] [address] [place] [address] Dr. Anisa Gomez Urobilinogen Qn (U) 0.2 {Agustin'U}/dL Normal 0.2 - 1. 0 [facility] Comment on above: Performed By: #### U AMIC #### [facility] [address] [place] [address] Dr. Anisa Gomez WBC 0-2 Abnormal NONE SEEN [facility] Comment on above: Performed By: #### U AMIC #### [facility] [address] [place] [address] Dr. Anisa Gomez Vital Signs Date Time Vital Sign Value Performing Clinician Facility 12-30-2023 09:35-0400 Body height 157.48 cm MD Shaikh Horan Work Phone: [facility] 12-30-2023 09:35-0400 Body mass index (BMI) [Ratio] 27.4 kg/m2 MD Shaikh Horan Work Phone: [facility] 12-30-2023 09:35-0400 Body temperature 97.3 [degF] MD Shaikh Horan Work Phone: [facility] 12-30-2023 09:35-0400 Body weight 68.03 kg MD Shaikh Horan Work Phone: [facility] 12-30-2023 09:35-0400 Diastolic blood pressure 50 mm[Hg] MD Shaikh Horan Work Phone: [facility] 12-30-2023 09:35-0400 Heart rate 106 /min MD Shaikh Horan Work Phone: [facility] 12-30-2023 09:35-0400 Respiratory rate 18 /min MD Shaikh Horan Work Phone: [facility] 12-30-2023 09:35-0400 SaO2% (BldA) [Mass fraction] 85 % MD Shaikh Horan Work Phone: [facility] 12-30-2023 09:35-0400 Systolic blood pressure 76 mm[Hg] MD Shaikh Horan Work Phone: [facility] 12-27-2023 15:46-0400 Diastolic blood pressure 57 mm[Hg] MD Shaikh Horan Work Phone: [facility] 12-27-2023 15:46-0400 Heart rate 65 /min MD Shaikh Horan Work Phone: [facility] 12-27-2023 15:46-0400 Respiratory rate 20 /min MD Shaikh Horan Work Phone: [facility] 12-27-2023 15:46-0400 Systolic blood pressure 112 mm[Hg] MD Shaikh Horan Work Phone: [facility] 12-27-2023 14:59-0400 Inhaled oxygen flow rate 2 L/min MD Shaikh Horan Work Phone: [facility] 12-27-2023 14:59-0400 SaO2% (BldA) [Mass fraction] 92 % MD Shaikh Horan Work Phone: [facility] 12-27-2023 11:20-0400 Body temperature 97.7 [degF] MD Shaikh Horan Work Phone: [facility] 12-27-2023 10:48-0400 Body height 157.48 cm MD Shaikh Horan Work Phone: [facility] 12-27-2023 10:48-0400 Body weight 70.8 kg MD Shaikh Horan Work Phone: [facility] 03-25-2023 10:00-0400 Body height 157.48 cm Nigel Valladares Other [facility] Other 03-25-2023 10:00-0400 Body mass index (BMI) [Ratio] 27.43 kg/m2 Nigel Valladares Other [facility] Other 03-25-2023 10:00-0400 Body temperature 97.2 [degF] Nigel Valladares Other [facility] Other 03-25-2023 10:00-0400 Body weight 68.04 kg Nigel Valladares Other [facility] Other 03-25-2023 10:00-0400 Diastolic blood pressure 82 mm[Hg] Nigel Valladares Other [facility] Other 03-25-2023 10:00-0400 SaO2% (BldA) [Mass fraction] 91 % Nigel Becerraeleanor Other [facility] Other 03-25-2023 10:00-0400 Systolic blood pressure 158 mm[Hg] Nigel Becerraeleanor Other [facility] Other 02-09-2023 11:00-0400 Body height 157.48 cm Cherelle Michele Other [facility] Other 02-09-2023 11:00-0400 Body mass index (BMI) [Ratio] 27.43 kg/m2 Cherelle Michele Other [facility] Other 02-09-2023 11:00-0400 Body temperature 97.6 [degF] Cherelle Michele Other [facility] Other 02-09-2023 11:00-0400 Body weight 68.04 kg Cherelle Singhdylan Other [facility] Other 02-09-2023 11:00-0400 Diastolic blood pressure 74 mm[Hg] Cherelle Michele Other [facility] Other 02-09-2023 11:00-0400 SaO2% (BldA) [Mass fraction] 92 % Cherelle Michele Other [facility] Other 02-09-2023 11:00-0400 Systolic blood pressure 122 mm[Hg] Cherelle Bautista Other [facility] Other 12-24-2022 10:00-0400 Diastolic blood pressure 86 mm[Hg] Brigette Martini [facility] 12-24-2022 10:00-0400 Mean blood pressure 106 mm[Hg] Brigette Martini [facility] 12-24-2022 10:00-0400 Systolic blood pressure 146 mm[Hg] Brigette Martini [facility] 12-24-2022 09:57-0400 Blood Pressure Location Brigetteanju Martini [facility] 12-24-2022 09:57-0400 Body temperature 97.52 [degF] Brigette Martini [facility] 12-24-2022 09:57-0400 Diastolic blood pressure 82 mm[Hg] Brigette Martini [facility] 12-24-2022 09:57-0400 Heart rate 86 /min Brigette Martini [facility] 12-24-2022 09:57-0400 Systolic blood pressure 150 mm[Hg] Brigette Martini [facility] Encounters Encounter Date Encounter Type Care Provider Facility Start: 03-09-2024 End: 03-09-2024 ambulatory MD Shaikh Horan Work Phone: [facility] Work Phone: Start: 03-09-2024 End: 03-09-2024 Departed Referred MD Shaikh Horan Work Phone: [facility] Start: 03-01-2024 End: 03-01-2024 ambulatory SHAIKH AUNG Facility:[facility] Start: 03-01-2024 End: 03-01-2024 Patient encounter procedure Arden De Leon [facility] Start: 02-22-2024 End: 02-22-2024 ambulatory CHRIS BERMAN Not Available Start: 02-19-2024 ambulatory RO FARENNY Facility: [facility] Start: 01-04-2024 End: 01-04-2024 ambulatory SHAIKH EPIMaximiliano Not Available Start: 12-30-2023 End: 12-30-2023 Patient encounter procedure MD Shaikh Horan Work Phone: [facility] V[facility] Surgery Work Phone: Start: 12-30-2023 End: 12-30-2023 ambulatory MD Shaikh Horan Work Phone: [facility] Work Phone: Start: 12-27-2023 End: 12-27-2023 Emergency department patient visit MD Shaikh Horan Work Phone: [facility] Work Phone: Start: 11-09-2023 End: 11-09-2023 ambulatory SHAIKH JOSHGERMÁN Not Available Start: 10-12-2023 End: 10-12-2023 ambulatory RO AUNG Not Available Start: 08-20-2023 Orders Only Shaikh Aung FARFAN Work Phone: [facility] Comment on above: RLS (restless legs s yndrome) (Primary Dx); Moderate COPD (chronic obstructive pulmonary disease) ([facility]) Start: 07-09-2023 Patient encounter procedure Shaikh Aung FARFAN Work Phone: [facility] Start: 07-09-2023 End: 07-09-2023 ambulatory SHAIKH AUNG Not Available Start: 03-25-2023 Office outpatient visit 15 minutes Nigel Valladares [facility] Start: 03-25-2023 End: 03-25-2023 ambulatory Cherelle Bautista [facility] Other Start: 02-09-2023 End: 02-09-2023 ambulatory Cherelle Bautista Other [facility] Other Start: 02-09-2023 [facility] visit new patient Cherelle grissom [facility] Start: 01-07-2023 End: 01-07-2023 Patient encounter procedure Brigette Cerratoz [facility] Start: 01-01-2023 End: 01-01-2023 Patient encounter procedure Brigette Cerratoz [facility] Start: 12-29-2022 End: 12-29-2022 Patient encounter procedure Brigette Cerratoz [facility] Start: 12-24-2022 End: 12-24-2022 Patient encounter procedure Brigette Martini [facility] Start: 12-24-2022 End: 02-19-2023 Pre-admission assessment Jorge MERCEDES [facility] Start: 12-24-2022 End: 12-24-2022 Patient encounter procedure Brigette Martini [facility] Start: 11-11-2022 End: 11-11-2022 ambulatory SHAIKH Anju HORAN Facility:[facility] Start: 10-27-2022 End: 10-28-2022 ambulatory LEIGH THOMPSON . Facility:[facility] Start: 09-01-2022 End: 09-01-[address] ARMANDO WESTON . Facility:[facility] Start: 07-24-2022 End: 07-25-2022 ambulatory SHAIKH Anju HORAN Facility:[facility] Start: 07-14-2022 ambulatory SHAIKH Anju HORAN Facilit y:[facility] Start: 07-09-2022 End: 07-10-2022 ambulatory SHAIKH Anju HORAN Facility:[facility] Start: 07-04-2022 ambulatory SHAIKH Anju HORAN Facilit y:[facility] Start: 06-09-2022 End: 06-09-2022 Patient encounter procedure Armando WESTON [facility] Start: 05-07-2022 End: 05-08-2022 ambulatory SHAIKH Anju HORAN Facility:[facility] Procedures Date Procedure Procedure Detail Performing Clinician Start: 12-30-2023 US scan of aorta MD Reynaldo Horan Work Phone: Start: 12-27-2023 Blood culture for ba cteria, including anaerobic screen MD Shaikh Horan Work Phone: Start: 12-27-2023 Screening for occult blood in feces MD Shaikh Horan Work Phone: Start: 12-27-2023 Stool Occult Blood (BAILEE) MD Shaikh Horan Work Phone: Start: 12-27-2023 Urine culture MD Shaikh Horan Work Phone: Start: 12-27-2023 Antibody screen Bernardino Gifford Comment on above: Result Comment: PERF ORMED BY: [facility] [address] [place] [address] PATHOLOGIST GEOTHERMAL OPERATIONS ENGINEER JENNIFER ALANIZ M.D. Start: 12-27-2023 CT angiography of thorax MD Shaikh Horan Work Phone: Start: 12-27-2023 Plain chest X-ray MD Janett Horan Work Phone: Start: 07-03-2022 Mammography Shaikh Josh flowers MD Work Phone: Start: 07-13-1989 Introduction of tens ion free vaginal tape Brigette Martini Cholecystectomy Brigette Magallon saad Hysterectomy Brigette Martini Rotator cuff includi ng muscles and tendons (body structure) Brigette Martini Plan of Treatment Date Care Activity Detail Author Start: 04-12-2026 Screening for malign ant neoplasm of colon [facility] Start: 07-09-2024 Medicare Annual Well ness (AWV) Medicare Annual Wellness (AWV) [facility] Start: 01-10-2024 Influenza vaccination Influenz a Vaccine (#1) [facility] Comment on above: Postponed from 03/13 (Patient Refused) Start: 12-27-2023 Bacteria identified in Blood by Culture [facility] Start: 12-27-2023 Bacteria identified in Urine by Culture [facility] Start: 12-27-2023 Blood culture for bacteria, including anaerobic screen Blood Culture [facility] Start: 10-08-2023 End: 10-08-2023 Patient encounter procedure 10/08/2023 2:00 PM EDT Office Visit [facility] [address] [place] [address] Shaikh Horan MD [address] [place] [id number] [facility] Start: 07-03-2023 Screening for malign ant neoplasm of breast Mammogram [facility] Start: 1950 Screening for malign ant neoplasm of colon [facility] Patient Education Dealing with L ow Blood Pressure from the Drugs You Take [facility] Work Phone: Patient referral [facility] Work Phone: US Thoracic and abdominal aorta [facility] Immunizations Immunization Date Immunization Notes Care Provider Fa brenda 07-09-2022 pneumococcal 20-ananya nt conjugate vaccine Brigette Lianet [facility] 07-03-2022 pneumococcal conjuga te vaccine, 13 valent Brigette Esparzametz [facility] Payers Date Payer Category Payer Private Health Insurance [id number] 2023 Private Health Insurance [id number] 2023 Medicare [id number] 2022 Unknown [employer] [id number] 2022-Present [address] [place] [address] [id number] 2020 Unknown [id number] 1959 Self-pay 1950 Unknown [id number] 2.16.840.1.967448.3.579.2 .593 1952 Unknown [id number] 2.16.840.1.581984.3.579.2 .593 1952 Unknown [id number] 2.16.840.1.551205.3.579.2 .593 1952 Unknown [id number] 2.16.840.1.370331.3.579.2 .593 1952 Unknown [id number] 2.16.840.1.469330.3.579.2 .593 1952 Unknown [id number] 2.16.840.1.249799.3.579.2 .593 1952 Unknown [id number] 2.16.840.1.598088.3.579.2 .593 1952 Unknown [id number] 2.16.840.1.233183.3.579.2 .593 1952 Unknown [id number] 2.16.840.1.502071.3.579.2 .1259 1952 Unknown [id number] 2.16.840.1.326192.3.579.2 .1259 1952 Unknown [id number] 2.16.840.1.162112.3.579.2 .1259 1952 Unknown [id number] 2.16.840.1.982256.3.579.2 .1259 1952 Unknown [id number] 2.16.840.1.853544.3.579.2 .1259 1952 Unknown [id number] 2.16.840.1.622554.3.579.2 .727 1952 Unknown [id number] 2.16.840.1.303146.3.579.2 .727 Medicare Medicare [id number] Unknown [id number] 2.16.840.1.284715.3.579.2 .531 Unknown [id number] 2.16.840.1.965112.3.579.2 .531 Unknown [id number] 2.16.840.1.873864.3.579.2 .531 Social History Date Type Detail Facility Tobacco smoking status [facility] Start: 07-09-2023 Sex Assigned At Female F [facility] Start: 12-24-2022 Tobacco smoking status Heavy t obacco smoker (finding) [facility] Tobacco smoking status Never [facility] Start: 07-09-2023 Tobacco smoking stat NHIS Smokes tobacco daily [facility] History of tobacco use Cigarette Smoker [facility] Start: 07-09-2023 Cigarettes smoked current (pack per day) - Reported 1 [facility] Start: 07-09-2023 Tobacco use and exposure Smokeless tobacco non-user [facility] Start: 07-09-2023 Alcohol intake Lifetime non-d meghan (finding) [facility] Start: 1950 Sex Assigned At Not on file [facility] Start: 1950 Sex Assigned At Female F [facility] Start: 12-27-2023 Tobacco smoking stat [facility] Smoker (finding) [facility] Functional Status Date Assessment Result Facility 12-24-2022 Functional Status N/A [facility] Clinical Notes 06-09-2022 to [...] were addressed she understands agrees the plan. [facility] Other 07-31-2023 Evaluation note* Encounter Date Diagnosis Assessment Notes Treatment Notes Treatment Clinical Notes Jan, Abdominal aortic aneurysm (AAA) without rupture, unspecified part (ICD-10 - I71.40) We reviewed her abdominal CT imaging from outside facility at the [facility] which shows AAA 3.4 cm in greatest [...] her risk and is unmotivated to quit. [facility] Other 06-14-2023 Hospital Discharge instructions Patient Education [...] Follow these instructions at home: Medicines Take fsqx-jzl-xoxwxvd and prescription medicines only as told by [...] Watch your condition for any changes. Take ndam-xyj-jmhtdri and prescription medicines only as told by [...] provider. Document Revised: 08/17/2020 Document Reviewed: 11/07/2019 [employer] Patient Education 2022 [employer]. Follow Up Care 12/15/2022 11:25:23 With:Brigette Martini CNP Address: When:1 month [facility] 11-28-2022 Hospital Discharge instructions [...] fried and sweet foods. General instructions Take qnpc-rmq-pofvvek and prescription medicines only as told by [...] 04/25/2010 Document Revised: 10/20/2019 Document Reviewed: 07/15/2018 [employer] Patient Education 2020 [employer]. Follow Up Care 05/09/2022 11:00:12 With:TRISTA FARFAN, Armando Mckay, URL Address: [facility] [address], [place] [address]- When: Unknown [facility] evaluation + Plan note No data available for this section [facility] evaluation + Plan note Future Appointments Appointment Date:12/29/2022 10:30:00 AM Scheduled Provider: Location:.[facility] Appointment Type:US Abdominal/Pelvis (FT) Appointment Date:02/18/2023 08:15:00 AM Scheduled Provider: Location:[facility] Appointment Type:Surgery FT Future Scheduled Tests Radiology* US Abdomen, Limited 12/29/22 [facility] Evaluation + Plan note Future Appointments Appointment Date:02/18/2023 08:15:00 AM Scheduled Provider: Location:[facility] Future Appointments Appointment Date:01/07/2023 11:00:00 AM Scheduled Provider: Location:.[facility] Appointment Type:CT Abdomen (FT) Appointment Date:02/18/2023 08:15:00 AM Scheduled Provider: Location:[facility] Appointment Type:Surgery FT Future Scheduled Tests Radiology* CT Abdomen w/ Contrast [facility]07[facility]23 [facility] Diagnosis RLS (restless legs syndrome)- Primary Restless legs syndrome (RLS) Moderate COPD (chronic obstructive pulmonary disease) ([facility]) [facility]: Evaluation note* Diagnosis Onset Date Resolution Status Abdominal aortic aneurysm (A AA) 3.0 cm to 5.0 cm in diameter in female acute [facility] Work Phone: History general Narrative - Reported* Type Description Date Medical History GERD Medical History hypercholesterolemia Surgical History cholecystectomy Surgical History tubal ligation Surgical History shoulder surgery Hospitalization History see above [facility] Other History general Narrative - Reported* Type Description Date Medical History GERD Medical History hypercholesterolemia Medical History Carotid stenosis Surgical History cholecystectomy Surgical History tubal ligation Surgical History shoulder surgery Hospitalization History see above [facility] Other Hospital Discharge instructions No data available for this section [facility] Additional Instructions Stop your blood pressure medicine. Follow-up with your doctor without fail for reevaluation of blood pressure and left lung mass.[facility] Work Phone: Progress note No data available for this section [facility] Summary Purpose Family History Relationship Condition Age at Onset Recorded Date/T violette father Unknown Not Specified Unknown Relationship Condition Age at Onset Recorded Date/T violette father Unknown mother Unknown Advance Directives Advance Directive Response Recorded Date/ Time Advance Directives No March 4:03pm Chief Complaint and Reason for Visit Chief Complaint low bp Chief Complaint low bp I71.4 7 MONTH F/U AAA, ABD US Chief Complaint low bp I71.4 7 MONTH F/U AAA, ABD US Reason for Visit Abdominal aortic ane urysm (AAA) 3.0 cm to 5.0 cm in diameter in female Chief Complaint low bp I71.4 7 MONTH F/U AAA, ABD US Unknown Unknown Reason for Visit Abdominal aortic ane urysm (AAA) 3.0 cm to 5.0 cm in diameter in female Additional Source Comments INFORMATION SOURCE (unrecogn ized section and content) DATE CREATED AUTHOR 11/24/2022 [facility] DATE CREATED AUTHOR AUTHOR'S ORGANIZ ATION 02/24/2024 [facility] EPIC DATE CREATED AUTHOR AUTHOR'S ORGANIZ ATION 02/28/2024 [facility] DATE CREATED AUTHOR AUTHOR'S ORGANIZ ATION 03/03/2024 [facility] Patient Care team informatio n (unrecognized section and content) Personnel Name: SHAIKH HORAN MD Address: Address: [address] [place], [place] [address] [place] [address] [place] Team Status: Active Member Role Status Dates Shaikh Aung MD Primary Care Provider Active Team Status: Inactive Member Role Status Dates Shaikh Aung MD Primary Care Provider Active Start: December 27, 2023 End: December 27, 2023 Bernardino Gifford MD Emergency Provider Active St art: December 27, 2023 End: December 27, 2023 Caddymaster Relationship Specialty Start Date End Date Shaikh Horan MD PCP - General Internal Medicine 01/26/23 Shaikh Horan MD [address] [place] [id number] PCP - Devoted 04/12/23 Personnel Name: SHAIKH HORAN Address: Address: [address] [place] [address] REASON FOR VISIT (unrecogniz ed section and content) Referred by Dr. Horan for 3 .4cm AAA; CTA done at [facility] U/S 930 AM Goals (unrecognized section [...] BE BASED ON THE PRIMARY CLINICAL RECORDS. [employer] provides no warranty or guarantee of the accuracy or completeness of information in this document.
== END 2024-04-11 23:59 | disposition home or self-care (01) ==
LOC: HEMC 07:25
PROVIDERS: Visit Provider Internal Medicine Hematology & Oncology
DX: R91.8 Other nonspecific abnormal finding of lung field (principal); Z87.891 Personal history of nicotine dependence; D72.829 Elevated white blood cell count, unspecified; R91.1 Solitary pulmonary nodule
CPT/HCPCS: 87385; G0463

== ENCOUNTER 2024-05-03 07:37 | Outpatient (RCR) | payer MEDICARE, SELFPAY | END 2024-05-12 23:59 | disposition home or self-care (01) | LOC: HEMC 07:37 | PROVIDERS: Visit Provider Internal Medicine Hematology & Oncology | DX: D72.829 Elevated white blood cell count, unspecified (principal); R91.1 Solitary pulmonary nodule; Z90.710 Acquired absence of both cervix and uterus; Z90.722 Acquired absence of ovaries, bilateral; J44.9 Chronic obstructive pulmonary disease, unspecified; F17.210 Nicotine dependence, cigarettes, uncomplicated; Z80.1 Family history of malignant neoplasm of trachea, bronchus and lung | CPT/HCPCS: G0463 ==

== ENCOUNTER 2024-05-31 07:40 | Outpatient (RCR) | payer MEDICARE, SELFPAY ==
--- OUTSIDE RECORDS SUMMARY | 2024-05-31 07:43 | XMS_ITS | CCD ---
Author Organization [facility] Care Team Providers Care Carbonation Tester Name Role Phone FAWWAD, HURTADO H Admitting Unavailable FAWWAD, HURTADO H Attending Unavailable FAWWAD, HURTADO H Primary Care Unavailable FAWWAD, HURTADO H Consulting Unavailable FAWWAD, HURTADO H Admitting Unavailable FAWWAD, HURTADO H Attending Unavailable FAWWAD, HURTADO H Primary Care Unavailable DR ROMEL ALONZO Consulting Unavailable FAWWAD, HURTADO H Consulting Unavailable FAWWAD, HURTADO H Admitting Unavailable FAWWAD, HURTADO H Attending Unavailable FAWWAD, HURTADO H Primary Care Unavailable DR ROMEL ALONZO Consulting Unavailable FAWWAD, HURTADO H Consulting Unavailable SAMSA ., LEIGH Admitting Unavailable SAMSA ., LEIGH Attending Unavailable FAWWAD, HURTADO H Primary Care Unavailable SAMSA ., LEIGH Consulting Unavailable RASTEGAR, RADHA Consulting Unavailable FAWWAD, HURTADO H Admitting Unavailable FAWWAD, HURTADO H Attending Unavailable FAWWAD, HURTADO H Primary Care Unavailable FAWWAD, HURTADO H Primary Care Unavailable AMANDA PINEDO Admitting Unavailable AMANDA PINEDO Attending Unavailable TIAGO THOMSON Consulting UnavailAMANDA Penn Consulting Unavailable LAYNE HO Consulting Unavailable ANDRES GUZMAN Consulting Unavailable TRISTA Morgan, DR ROBERTS Admitting Unavailable TRISTA Morgan, DR ROBERTS Attending Unavailable FAWWAD, HURTADO H Primary Care Unavailable DR ARMANDO EASLEY Consulting Unavailable FAWWAD, HURTADO H Admitting Unavailable FAWWAD, HURTADO H Attending Unavailable FAWWAD, HURTADO H Primary Care Unavailable FAWWAD, HURTADO Primary Care Physician [phone] Cherelle Bautista Unavailable Nigel Valladares Unavailable Aung FARFAN, [facility] Primary Care Provider Shaikh Horan MD Unavailable MD Aung [facility] Primary Care Provider MD Bernardino Bhakta Emergency Provider [phone] SANDRA BautistaC Cherelle Mckay Attending Provider AUNG [facility] Referring Unavailable Arden De Leon Attending Unavailable Ngoc DO Leigh German Attending Provider [phone] MD Mikhail Moon Attending Provider [phone] MD Aung [facility] Primary Care Provider April FARFAN [facility] Primary Care Provider Chris Singh NP Unavailable Anne Hartley LPN Unavailable Unavailable [facility] Care Unavailable Asaad, Imad Admitting Unavailable Asaad, Imad Attending Unavailable [facility] Care Unavailable Asaad, Imad Referring Unavailable Drew, Nitza Attending Unavailable Drew, Nitza Admitting Unavailable [facility] Care Unavailable Asaad, Imad Admitting Unavailable Asaad, Imad Attending Unavailable [facility] Care Unavailable Bernardino Bhakta Attending Unavailable Bernardino Bhakta Admitting Unavailable [facility] Primary Care Unavailable Samsa, Leigh P Attending Unavailable Samsa, Leigh P Admitting Unavailable [facility] Primary Care Unavailable Samsa, Leigh P Attending Unavailable Samsa, Leigh P Admitting Unavailable [facility] Primary Care Unavailable Cherelle Bautista Admitting Unavailable Cherelle Bautista Attending Unavailable AUNG, Attending Unavailable AUNG, HURTADO Attending Unavailable SHAIK HORANH Attending Unavailable AUNG, HURTADO Attending Unavailable CHRIS SINGH Attending CHRIS Chiang Attending JAVIER Whitley Attending Unavailable ASAAD, IMAD Referring Unavailable CHRIS SINGH Attending Unavaileduardo WARREN, MOHAMED Referring Unavailable OMBALLI, MOHAMED Attending Unavailable OMBALLI, NEFTALIAMED Attending Unavailable OMBALLI, MOHAMED Referring Unavailable OMBALLI, MOHAMED Referring Unavailable OMBALLI, MOHAMED Referring Unavailable Naeem SURGICAL DENTAL ASSISTANT, Anne Unavailable Unavailable Allergies Allergy Classification Reported Allergen(s) Allergy Type Date of Onset Reaction(s) Facility (1 source) No Known Medication Allergies; 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: [No Known Medication Allergies] Propensity to adverse reactions (disorder) [facility] Repository (1 source) ALLERGIES NOT ON FILE; 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: [ALLERGIES NOT ON FILE] Propensity to adverse reactions (disorder) [facility] Repository Medications Current Medications Medication Drug Class(es) Dates Sig (Normalized) Sig (Original) 30 ACTUAT fluticasone furoate 0.2 MG/ACTUAT / umeclidinium 0.0625 MG/ACTUAT / vilanterol 0.025 MG/ACTUAT Dry Powder Inhaler [Trelegy] (2 sources) Trelegy Ellipta 200-62.5-25 MCG/ACT Inhalation for 30 Days Active [id number] 200 actuat albuterol 0.09 mg/actuat metered dose inhaler (12 sources) beta2-Adrenergic Agonist Start: 12-30-2023 Albuterol Sulfate Active 1 PUFF INHALATION As Directed December 30, 2023 12:00am Start: 12-30-2023 Albuterol Sulf ate Active INHALATION December 30, 2023 12:00am Start: 11-26-2023 take 2 puff(s) by in halation every four hours for wheezing albuterol HFA 90 mcg/act inhaler Indications: Moderate COPD (chronic obstructive pulmonary disease) ([facility]) Inhale 2 puffs every 4 (four) hours if needed for wheezing or shortness of breath 6.7 g 11/26/2023 Active Start: 07-02-2023 take 2 puff(s) by in halation every four hours albuterol HFA 90 mcg/act inhaler Inhale 2 puffs every 4 (four) hours if needed for shortness of breath 0 07/02/2023 Active aspirin 81 mg delayed release oral tablet (10 sources) Platelet Aggregation Inhibitor, Nonsteroidal Anti-inflammatory Drug Start: 12-27-2023 take 81 mg by mouth once daily Aspirin Active 81 MG PO Daily December 27, 2023 12:00am Baby Aspirin Act thelma atorvastatin 80 mg oral tablet (20 sources) HMG-CoA Reductase Inhibitor Start: 06-09-2022 End: 06-05-2024 take 1 tablet by mouth once daily atorvastatin (Lipitor) 80 MG tablet Indications: Hyperlipidemia, unspecified hyperlipidemia type ([facility]) Take 1 tablet (80 mg) by mouth Daily 90 tablet 03/07/2024 06/05/2024 Active 120 actuat budesonide 0.16 mg/actuat / formoterol fumarate 0.0048 mg/actuat / glycopyrrolate 0.009 mg/actuat metered dose inhaler (7 sources) Corticosteroid, beta2-Adrenergi c Agonist Start: 03-11-2024 Wncdkwtxrg-Qbriipcj-P ormoterol (Breztri Aerosphere) 160-9-4.8 mcg/actuation HFA aerosol inhaler Active 2 INH INHALATION every day in the morning and in the evening March 11, 2024 12:00am Start: 03-02-2024 take 2 puff(s) by inhalation in the morning Glkljfy-Dqbxhyyzdvx-Shkqolrmup (Breztri Aerosphere) 160-9-4.8 MCG/ACT aerosol Indications: Moderate COPD (chronic obstructive pulmonary disease) ([facility]) Inhale 2 puffs in the morning and 2 puffs before bedtime. 10.7 g 2 03/02/2024 Active dicyclomine hydrochloride 20 mg oral tablet (11 sources) Anticholinergic Start: 12-27-2023 take 1 tablet by mouth three times daily Dicyclomine Active 20 MG PO Three times daily December 27, 2023 12:00am FreeTextSig: TAKE 1 TABLET BY MOUTH THREE TIMES DAILY Oral; Note: Source Status: Taking; Refills: 0; Qty: 90 Each; Provider: Aung Hurtado take 1 tablet by three times daily Dicyclomine HCl 20 MG TAKE 1 TABLET BY OUTH THREE TIMES DAILY Oral for 30 Days Active esomeprazole 40 mg delayed release oral capsule (8 sources) Proton Pump Inhibitor Start: 12-24-2022 End: 03-24-2023 take 1 capsule by mouth once daily esomeprazole 40 mg Cap-EC 40 mg = 1 cap(s), Oral, Daily, # 90 cap(s), Refills(s) 0, Pharmacy: [facility], 159, cm, 12/24/22 10:00:00 EDT, Height/Length Dosing, 67.6, kg, 12/24/22 10:00:00 EDT, Weight Dosing Start Date: 02/18/23 Status: Ordered ezetimibe 10 mg oral tablet (13 sources) Dietary Cholesterol Absorption Inhibitor Start: 07-09-2023 End: 10-07-2023 take 10 mg by mouth once daily in the morning Ezetimibe Active 10 MG PO Every morning December 27, 2023 12:00am fenofibrate 48 mg oral tablet (3 sources) Peroxisome Proliferator Receptor alpha Agonist Start: 03-07-2024 End: 03-07-2025 take 1 tablet by mouth once daily fenofibrate (Tricor) 48 MG tablet Indications: Mixed hyperlipidemia (CMS/HCC) Take 1 tablet (48 mg) by mouth Daily 30 tablet 03/07/2024 03/07/2025 Active ferrous sulfate 325 mg delayed release oral tablet (4 sources) Start: 01-06-2023 End: 05-19-2023 take 1 tablet by mouth once daily ferrous sulfate 325 mg oral enteric coated tablet 325 mg = 1 tab(s), Oral, Daily, X 90 day(s), # 90 tab(s), Refills(s) 0, Pharmacy: [facility], 159, cm, 12/24/22 10:00:00 EDT, Height/Length Dosing, 67.6, kg, 12/24/22 10:00:00 EDT, Weight Dosing Start Date: 02/18/23 Stop Date: 05/19/23 Status: Ordered Fluticasone-Umecli din-Vilant (Trelegy Ellipta) 200-62.5-25 MCG/ACT aerosol powder (1 source) Start: 08-20-2023 End: 11-18-2023 take 1 puff(s) by inhalation in the morning Fluticasone-Umeclid in-Vilant (Trelegy Ellipta) 200-62.5-25 MCG/ACT aerosol powder Indications: Moderate COPD (chronic obstructive pulmonary disease) ([facility]) Inhale 1 puff in the morning. 28 each 2 08/20/2023 11/18/2023 Active gabapentin 300 mg oral capsule (20 sources) Anti-epileptic Agent Start: 06-09-2022 take 1 capsule by mouth in the morning, then take 1 capsule by mouth in the evening, then take 1 capsule by mouth at bedtime gabapentin (Neurontin) 300 MG capsule Indications: Other polyneuropathy Take 1 capsule (300 mg) by mouth in the morning and 1 capsule (300 mg) in the evening and 1 capsule (300 mg) before bedtime. 270 capsule 11/26/2023 Active linaclotide 0.145 mg oral capsule (3 sources) Guanylate Cyclase-C Agonist Start: 11-26-2023 take 1 capsule by mouth before mealtime linaCLOtide (Linzess) 145 MCG capsule Indications: Irritable bowel syndrome with predominant constipation Take 1 capsule (145 mcg) by mouth in the morning. Take before meals. 90 capsule 11/26/2023 Active nicotine 4 mg oral lozenge (2 [...] pantoprazole 40 mg delayed release oral tablet (16 sources) Proton Pump Inhibitor Start: 11-25-2023 End: 10-29-2024 take 1 tablet by mouth before mealtime pantoprazole (Protonix) 40 MG EC tablet Indications: Gastroesophageal reflux disease without esophagitis Take 1 tablet (40 mg) by mouth in the morning. Take before meals. Do not crush, chew, or split.. 90 tablet 1 05/02/2024 10/29/2024 Active Start: 08-04-2023 take 1 tablet by edelmira once daily pantoprazole (ProtoNix) 40 MG EC tablet Indications: Gastroesophageal reflux disease without esophagitis TAKE 1 TABLET BY MOUTH EVERY DAY 30 tablet 0 08/04/2023 Active take 1 tablet by [facility] once daily Pantoprazole Sodium 40 MG TAKE 1 TABLET BY MOUTH DAILY Oral for 30 Days Active Miralax (7 sources) Osmotic Laxative Start: 12-24-2022 MiraLax Refill(s) 0 Start Date: 12/24/22 Status: Ordered rOPINIRole 0.5 mg oral tablet (14 sources) Nonergot Dopamine Agonist Start: 08-20-2023 End: 11-18-2023 take 0.5 mg by mouth once daily at bedtime Ropinirole Active 0.5 MG PO Daily at bedtime December 27, 2023 12:00am traZODone hydrochloride 100 mg oral tablet (20 sources) Serotonin Reuptake Inhibitor Start: 06-09-2022 End: 05-24-2024 take 1 tablet by mouth at bedtime traZODone (Desyrel) 100 MG tablet Indications: Psychophysiological insomnia Take 1 tablet (100 mg) by mouth at bedtime 90 tablet 1 11/26/2023 Active zolpidem tartrate 10 mg oral tablet (12 sources) gamma-Aminobuty paulette Acid-ergic Agonist Start: 12-14-2023 zolpidem (Ambien) 10 MG tablet Indications: Psychophysiological insomnia Take 1 tablet (10 mg) by mouth as needed at bedtime for sleep 90 tablet 12/14/2023 Active Completed/Discontinued Medications Medication Drug Class(es) Dates Sig [...] Status: Ordered amLODIPine 10 mg oral tablet (10 sources) Dihydropyridine Calcium Channel Tristian Start: 12-27-2023 [...] procedure, # 2 tab(s), Refills(s) 0, Pharmacy: [id number], 159, cm, 08/11/22 13:12:00 EST, Height/Length Dosing, 64, kg, 08/11/22 13:12:00 EST, Weight Dosing Start Date: 08/14/22 Status: Ordered Fluticasone-Umeclid in-Vilanter (8 sources) Anticholinergic, Corticosteroid, beta2-Adrenergic Agonist Start: 12-30-2023 End: 03-11-2024 Fluticasone-Umeclid in-Vilanter (Trelegy Ellipta) 100-62.5-25 mcg blister with device Discontinued INHALATION December 30, 2023 12:00am March 11, 2024 8:20am Start: 12-30-2023 Fluticasone-Um eclidin-Vilanter (Trelegy Ellipta) 100-62.5-25 mcg blister with device Active INHALATION December 30, 2023 12:00am Qszyritbvto-Dpebtzxcu-Zsfnzs er (9 sources) Start: 12-27-2023 End: 03-11-2024 Ulztvawqwdo-Vniaqapzv-Khxddh er (Trelegy Ellipta) 200-62.5-25 mcg blister with device Discontinued 1 INH INHALATION Daily December 27, 2023 12:00am March 11, 2024 8:20am FreeTextSig: Inhalation; Note: Source Status: Taking; Qty: 60 Each; Provider: Jacquelyn Manning ( ) Start: 12-27-2023 Fluticasone-Um eclidin-Vilanter (Trelegy Ellipta) 200-62.5-25 mcg blister with device Active 1 INH INHALATION Daily December 27, 2023 12:00am FreeTextSig: Inhalation; Note: Source Status: Taking; Qty: 60 Each; Provider: Jacquelyn Manning ( ) folic acid 1 mg oral tablet (17 sources) Start: 02-18-2023 End: 05-23-2024 take 1 tablet by mouth once daily folic acid (Folvite) 1 MG tablet Indications: Folic acid deficiency TAKE 1 TABLET (1 MG) BY MOUTH DAILY 30 tablet 2 02/22/2024 05/23/2024 Start: 01-06-2023 End: 02-05-2023 take 1 tablet by mouth once daily folic acid 1 mg Tab 1 mg = 1 tab(s), Oral, Daily, X 30 day(s), # 30 tab(s), Refills(s) 0, Pharmacy: [id number], 159, cm, 12/24/22 10:00:00 EDT, Height/Length Dosing, 67.6, kg, 12/24/22 10:00:00 EDT, Weight Dosing Start Date: 01/06/23 Stop Date: 02/05/23 Status: Ordered polyethylene glycol 3350 [id number] mg / potassium chloride 1480 mg / sodium bicarbonate 5720 mg / sodium chloride 75406 mg powder for oral solution (7 sources) Osmotic Laxative Start: 12-24-2022 NuLYTELY Fuentes oral powder for reconstitution See Instructions, 1 EA, Refill(s) 0, Prior to colonoscopy., [facility], 159, cm, 12/24/22 10:00:00 EDT, Height/Length Dosing, 67.6, kg, 12/24/22 10:00:00 EDT, Weight Dosing Start Date: 12/24/22 Status: Ordered Sod Picosulf-Mag Ox-Citric Ac (6 sources) Start: 03-01-2024 End: 03-11-2024 take 1 dose by mouth once daily Sod Picosulf-Mag Ox-Citric Ac (Clenpiq) 10 mg-3.5 gram- 12 gram/175 mL solution Discontinued 175 ML PO Daily 350 0 March 01, 2024 12:00am March 11, 2024 8:19am take first dose at 3PM evening before colonoscopy; 2nd dose at 9pm the night before colonoscopy Start: 03-01-2024 take 1 dose by mouth once daily Sod Picosulf-Mag Ox-Citric Ac (Clenpiq) 10 mg-3.5 gram- 12 gram/175 mL solution Active 175 ML PO Daily 350 0 March 01, 2024 12:00am take first dose at 3PM evening before colonoscopy; 2nd dose at 9pm the night before colonoscopy varenicline (8 sources) Partial Cholinergic Nicotinic Agonist Start: 12-30-2023 End: 03-11-2024 Varenicline Discontinued TAB PO December 30, 2023 12:00am March 11, 2024 8:23am Start: 12-30-2023 Varenicline Ac tive TAB PO December 30, 2023 12:00am Problems Active Problems Problem Classification Problem Date Documented Date Episodic/Chronic Aortic; peripheral; and visceral artery aneurysms (15 sources) Aneurysm of infrarenal abdominal aorta ; 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: [Infrarenal abdominal aortic aneurysm, without rupture] Onset: 07-09-2023 07-09-2023 Chronic Cancer of colon (3 sources) Carcinoma in situ of ascending colon; 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: [Carcinoma in situ of colon] Onset: 05-10-2024 05-10-2024 Chronic Chronic obstructive pulmonary disease and bronchiectasis (8 sources) Centrilobular emphysema; 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: [Moderate chronic obstructive pulmonary disease] Onset: 11-02-2022 08-20-2023 Chronic Disorders of lipid metabolism (17 sources) Hyperlipidemia; 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: [Hyperlipidemia, unspecified] Onset: 05-07-2022 06-09-2022 Chronic Esophageal disorders (13 sources) Gastroesophageal reflux disease without esophagitis; 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: [Gastro-esophageal reflux disease without esophagitis] Onset: 12-24-2022 Chronic Essential hypertension (14 sources) Hypertensive disorder; 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: [Essential (primary) hypertension] Onset: 09-03-2022 06-09-2022 Chronic Genitourinary symptoms and ill-defined conditions (16 sources) Mixed incontinence; 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: [Incontinence] Onset: 06-09-2022 Chronic Menopausal disorders (1 source) Postmenopausal atrophic vaginitis; 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: [POSTMENOPAUSAL ATROPHIC VAGINITIS] Onset: 09-03-2022 Chronic Nonspecific chest pain (3 sources) Chest pain, unspecified; 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: [CHEST PAIN UNSPECIFIED] Onset: 11-11-2022 Episodic Occlusion or stenosis of precerebral arteries (5 sources) Left carotid artery stenosis; 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: [Occlusion and stenosis of left carotid artery] Chronic Other aftercare (1 source) Other fdc (current) drug therapy; 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: [OTH SENIOR LIVING CURRENT DRUG THERAPY] Onset: 11-13-2022 Episodic Other aftercare (1 source) MCC (current) use of aspirin; 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: [SENIOR LIVING CURRENT USE OF ASPIRIN] Onset: 11-13-2022 Episodic Other and ill-defined heart disease (8 sources) Heart disease 06-09-2022 Chronic Other and unspecified benign neoplasm (1 source) Benign neoplasm of colon, unspecified; 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: [Benign neoplasm of colon, unspecified] Onset: 04-21-2024 Episodic Other circulatory disease (1 source) Personal history of transient ischemic attack (TIA), and cerebral infarction without residual deficits; 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: [PERS HX TIA AND CI NO RESID DEFICIT] Onset: 09-03-2022 Episodic Other circulatory disease (9 sources) Low blood pressure; 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: [Hypotension, unspecified] 12-27-2023 Episodic Other hereditary and degenerative nervous system conditions (5 sources) Restless legs; 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: [Restless legs syndrome] Onset: 07-09-2023 08-20-2023 Chronic Other lower respiratory disease (5 sources) Other nonspecific abnormal finding of lung field; 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: [OTH NONSPECIFIC ABN FIND LNG FIELD] Onset: 10-27-2022 Episodic Other lower respiratory disease (2 sources) Solitary pulmonary nodule; 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: [Solitary pulmonary nodule] Onset: 04-28-2024 Episodic Other nervous system disorders (4 sources) Polyneuropathy; 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: [Polyneuropathy, unspecified] Onset: 07-09-2023 07-09-2023 Chronic Prolapse of female genital organs (2 sources) Cystocele, unspecified; 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: [Rectocele] Onset: 09-03-2022 Chronic Residual codes; unclassified (1 source) Acquired absence of other specified parts of digestive tract; 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: [ACQ ABSENCE OTH PART DIGESTV TRACT] Onset: 11-13-2022 Episodic Residual codes; unclassified (1 source) Acquired absence of both cervix and uterus; 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: [ACQUIRED ABSENCE BOTH CERVIX AND UTERUS] Onset: 09-03-2022 Episodic Substance-related disorders (12 sources) Nicotine dependence, cigarettes, uncomplicated; 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: [Smoker] Onset: 07-24-2022 Chronic Unclassified (1 source) Abdominal aortic aneurysm, without rupture, unspecified; 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: [Abdominal aortic aneurysm, without rupture, unspecified] Onset: 12-30-2023 Past or Other Problems Problem Classification Problem Date Documented Date Episodic/Chronic Abdominal pain (19 sources) Unspecified abdominal pain; 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: [Upper abdominal pain] Onset: 11-13-2022 Episodic Genitourinary symptoms and ill-defined conditions (20 sources) H/O: urinary disease; 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: [Personal history of other diseases of urinary system] Onset: 05-11-2022 Episodic Malaise and fatigue (1 source) Weakness; 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: [Weakness] Onset: 12-27-2023 Episodic Mood disorders (4 sources) Mood disorders Onset: 07-09-2023 07-09-2023 Other and unspecified benign neoplasm (11 sources) History of polyp of colon; 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: [Personal history of colonic polyps] Onset: 12-24-2022 Episodic Other circulatory disease (7 sources) History of transient ischemic attack Onset: 05-11-2022 08-11-2022 Episodic Other circulatory disease (4 sources) History of cerebrovascular accident; 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: [Personal history of transient ischemic attack (TIA), and cerebral infarction without residual deficits] Onset: 07-09-2023 07-09-2023 Episodic Other lower respiratory disease (12 sources) Lung mass; 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: [Other nonspecific abnormal finding of lung field] Onset: 01-04-2024 12-27-2023 Episodic Other screening for suspected conditions (not mental disorders or infectious disease) (10 sources) Encounter for screening for malignant neoplasm of respiratory organs; 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: [Encounter for screening mammogram for malignant neoplasm of breast] Onset: 07-09-2022 Episodic Syncope (3 sources) Syncope and collapse; 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: [Syncope and collapse] Onset: 01-04-2024 01-04-2024 Episodic Unclassified (1 source) Abdominal aortic aneurysm (AAA) without rupture, unspecified part I71.40 Unclassified (3 sources) Onset: 12-08-2023 12-08-2023 Results Test Name Value Interpretation Reference Range Facility Orders Onlyon 05-27-2024 Orders Only [id number] Maximiliano Rubi 1950 F Date Provider Department Center 05/27/2024 CarineMesfin-MARTELL ROJO [facility] [place] Family History Problem Relation Age of Onset Lung cancer Mother Other Sister Family Status - Relation Status Age at Mother Sister [facility] 38on 05-18-2024 38 Attempted to contact patient to schedule a colonoscopy with EMR. Patient is at [facility] already today for an EBUS, and tells me she is having the colonoscopy today, attempted to explain to her the difference in the procedures but she ended up hanging up on me. Will try her tomorrow. [facility] Anesthesiaon 05-18-2024 Anesthesia [id number] Maximiliano Rubi 1950 Provider Department [place] 05/18/[id number], TAYL*[facility] OR [facility] C Family History Problem Relation Age of Onset Lung cancer Mother Other Sister Family Status - Relation Status Age at Mother Sister [facility] HISTOLOGY - TISSUE EXAMon LAB AP ASR DISCLAIMER The interpretation of this case included the use of immunohistochemistry or special stains. These tests have not been cleared or approved by the U.S. Food and Drug Administration. The FDA has determined that such clearance or approval is not necessary. These tests are used for clinical purposes and should not be regarded as investigational or for research. This laboratory is certified to perform high complexity testing under the Clinical Laboratory Improvement Amendments of 1998. [facility] Comment on above: Performed By: #### L [id number] #### [facility] (BEAKER) [address] [place] [address] LAB AP CASE REPORT Normal [facility] Comment on above: Result Comment: Surg ical Pathology Case: [id number] Authorizing Provider: Diana Warren MD Collected: 05/18/2024 1331 Ordering Location: [facility] Main Operating Room Received: 05/18/2024 1432 Pathologist: Javier Mensah MD Specimen: Lung, Left Upper Lobe, Left Upper Lung Mass bx r/o Cancer Performed By: #### L [id number] #### [facility] ([facility]) [address] [place] [address] LAB AP CLINICAL INFORMATION Order Diagnoses [facility] Comment on above: Result Comment: R91. 1 - Lung nodule [ICD-10-CM] Performed By: #### L [id number] #### [facility] ([facility]) [address] [place] [address] LAB AP DIAGNOSIS COMMENT [facility] Comment on above: Result Comment: Immu nohistochemical staining shows the tumor cells are positive for TTF-1 and negative for CK5/6. The controls are satisfactory. PD-L1 testing has been requested with results to follow in an addendum. There is a moderate amount of tumor present in the tissue block which may be suitable for additional ancillary testing, if clinically indicated. Performed By: #### L [id number] #### [facility] ([facility]) [address] [place] [address] LAB AP GROSS DESCRIPTION [facility] Comment on above: Result Comment: A. L chantel, Left Upper Lobe. Received in formalin labeled with the patient's name Bhupendra Rubi and left upper lung mass BX rule out cancer, is a 2.0 x 0.3 x 0.1 cm aggregate of chandler-pink, feathery soft tissue fragments. The specimen is filtered and submitted in toto in 1 cassette. Saniya Carson, Pathologists' Mental Health Director Student Performed By: #### L [id number] #### [facility] ([facility]) [address] [place] [address] LAB AP MICROSCOPIC DESCRIPTION Microscopic examination performed. [facility] Comment on above: Performed By: #### L [id number] #### [facility] ([facility]) [address] [place] [address] LAB AP REPORT FINAL DIAGNOSIS NARRATIVE [facility] Comment on above: Result Comment: A. L chantel, left upper lobe, biopsy: -Adenocarcinoma. Preliminary result electronically signed by Javier Mensah MD on 05/20/2024 at 12:17 PM Performed By: #### L [id number] #### [facility] ([facility]) [address] [place] [address] HPon 05-18-2024 HP ----- ----- Attestation signed by Diana Warren MD at 05/18/2024 11:17 AM Re-explained the procedure to the patient along with the associated risk of pneumothorax, bleeding, hypoxia, and respiratory failure. Patient is agreeable and will proceed with the scheduled robotic bronchoscopy, TBBx, and Ebus TBNA Diana Warren MD Interventional Pulmonary Medicine Pulmonary and Critical Care Medicine [facility] ----- History Reviewed reviewed. The patient was examined and there are no changes. Physical exam as below General: Patient is alert and oriented x3, not in acute distress. HEENT: Atraumatic, normocephalic, PERRLA Neck: Supple neck. Respiratory: Clear breathing sound bilaterally, no wheezing no crackles. Heart: Regular rhythm, no murmur, no rub. Neurology: Can move all extremities, no focal deficit. Abdomen: Soft, not distended, not tender, French sign is negative. Extremities: No cyanosis, no edema. Skin: Warm and dry. Normal [facility] NON-LEATHER LEVELER CYTOLOGY - CELLULAR EXAMon 05-18-2024 LAB AP CASE REPORT Normal [facility] Comment on above: Result Comment: Non- gynecologic Cytology Case: [id number] Authorizing Provider: Diana Warren MD Collected: 05/18/2024 1309 Ordering Location: [facility] Main Operating Room Received: 05/19/2024 1251 Pathologist: Javier Mensah MD Specimens: A) - Lung, Left Upper Lobe B) - Lung, Left Upper Lobe C) - Lymph Node Station 7, Lymph Node Station 7 FNA D) - Lymph Node Station 4R, Lymph Node Station 4R FNA Performed By: #### L [id number] ####[facility] ([facility])[address] [facility] [place] [address] LAB AP CLINICAL INFORMATION Normal [facility] Comment on above: Result Comment: PET avid left upper lobe lung nodule that has increased in size (2.2 cm), 40 pack-year smoking history Performed By: #### L [id number] ####[facility] ([facility])[address] [facility] [place] [place] [address] LAB AP DIAGNOSIS COMMENT Normal [facility] Comment on above: Result Comment: Ther e is a moderate amount of tumor cells present in the cell block of part A and scant tumor in the cell block of part B for additional studies, if clinically indicated. See also concurrent biopsy, [id number]. Performed By: #### L [id number] ####[facility] ([facility])[address] [facility] [place] [address] LAB AP GROSS DESCRIPTION [facility] Comment on above: Result Comment: A. 2 air-dried slides, 2 alcohol-fixed slides, 30 mL CytoLyt with clear, red fluid and clots B. 15 mL cloudy, red fluid C. 30 mL CytoLyt with clear, pink fluid D. 30 mL CytoLyt with clear, pink fluid and white flecks Performed By: #### L [id number] ####[facility] ([facility])[address] [facility] [place] [address] LAB AP INTRAOPERATIVE CONSULTATION [facility] Comment on above: Result Comment: A. L chantel, Left Upper Lobe. Rapid on-site evaluation was performed by Monisha Simmons MD. The material examined during rapid on-site evaluation was deemed adequate for diagnosis. Pass #1: Adequate Pass #2: Adequate Pass #3: Defer - cell block Pass #4: Defer - cell block Pass #5: Defer - cell block Pass #6: Defer - cell block *Only select material is examined during the on-site evaluation. Final diagnosis is pending the review of all material submitted.* Performed By: #### L [id number] ####[facility] ([facility])[address] [place] [address] LAB AP MICROSCOPIC DESCRIPTION [facility] Comment on above: Result Comment: A. S atisfactory for evaluation. Examination of the prepared smears and cell block reveals numerous tumor cells arranged in clusters and as single cells with moderately abundant, vacuolated cytoplasm and enlarged nuclei exhibitng irregular chromatin and prominent nucleoli in a background of lymphocytes, benign bronchial cells, and blood. B. Satisfactory for evaluation. Examination of the ThinPrep slide and cell block reveals tumor cells with similar morphology to those identified in part A. C. Satisfactory for evaluation. Examination of the ThinPrep slide and cell block reveals numerous lymphocytes in a background of benign bronchial cells, cartilage, and blood. D. Satisfactory for evaluation. Examination of the ThinPrep slide and cell block reveals numerous lymphocytes in a background of benign bronchial cells, cartilage, and blood. Performed By: #### L [id number] ####[facility] ([facility])[address] [place] [address] LAB AP REPORT FINAL DIAGNOSIS NARRATIVE [facility] Comment on above: Result Comment: A. L chantel, Left Upper Lobe, Ion-guided fine needle aspiration: - Non-small cell carcinoma. See concurrent surgical biopsy [id number] for results of immunohistochemistry. B. Lung, Left Upper Lobe, bronchoalveolar lavage: - Non-small cell carcinoma C. Lymph Node, Station 7, EBUS-guided fine needle aspiration: - Negative for metastatic malignancy. - Cellular evidence of a lymph node. D. Lymph Node, Station 4R, EBUS-guided fine needle aspiration: - Negative for metastatic malignancy. - Cellular evidence of a lymph node. Performed By: #### L [id number] ####[facility] ([facility])[address] [place] [address] NURSNOTEon 05-18-2024 NURSZACK Warren viewed c hest xray at bedside and gave communications writer verbal permission to discharge patient home. RN reviewed discharge instructions with patient and significant other at bedside. No questions or concerns expressed at this time. [facility] NURSNOTE X ray is at bedside Normal [facility] NURSNOTE STAT Portable Chest X-Ray in PACU. Follow up at [facility] with Carrol Kunz, for lab results in 2-4 weeks. May resume a Regular Diet and home medications if Chest X-Ray is normal. Normal [facility] NURSNOTE Bronch/EBUS Findings : Left Upper Lung Mass Normal [facility] POCT GLUCOSE METER UNSOLICIT ED RESULTSon 05-18-2024 Glucose [Mass/Vol] 96 mg/dL Normal 70-105 [facility] Comment on above: Order Comment: Waive d Testing in the ED is performed under the ED CLIA certificate #[id number]. Result Comment: aepp ink Performed By: #### L [id number] ####[facility] ([facility])[address] [place] [address] Telephoneon 05-18-2024 Telephone [phone] Maximiliano Rubi 1950 F Date Provider Department Center 05/18/2024 [facility]LL [facility] Family History Problem Relation Age of Onset Lung cancer Mother Other Sister Family Status - Relation Status Age at Mother Sister Normal [facility] Prep for Procedureon 024 Prep for Procedure [id number] Maximiliano Rubi 1950 F Date Provider Department Center 05/12/2024 383DIANA OSORIO [facility] Family History Problem Relation Age of Onset Lung cancer Mother Other Sister Family Status - Relation Status Age at Mother Sister Normal [facility] CT CHEST WO IV CONTRASTon CT CHEST WO IV CONTRAST CT CHEST WITHOUT CONTRAST HISTORY: Lung nodule, prebiopsy COMPARISON: PET/CT 01/25/2024 TECHNIQUE: Routine CT chest without contrast. All CT scans at this facility use dose modulation, iterative reconstruction, and/or weight based dosing when appropriate to reduce radiation dose to as low as reasonably achievable. FINDINGS: Emphysema. Mass in the lateral aspect of the left upper lobe measuring 3.2 cm contacting the pleural surface. No additional lung nodules. The central airways are patent. No enlarged thoracic lymph nodes. Visualized chest wall structures are unremarkable. Partially visualized small left renal cyst. Partially visualized infrarenal abdominal aortic aneurysm measuring up to at least 3.2 cm in size. Diffuse atherosclerotic disease in the thoracic aorta. Extensive coronary artery calcifications. No pleural or pericardial effusions. No acute osseous abnormalities or aggressive osseous lesions. IMPRESSION: *Lateral left upper lobe mass measuring 3.2 cm contacting the pleural surface compatible with malignancy. *Emphysema. *Partially visualized infrarenal abdominal aortic aneurysm measuring 3.2 cm. Electronically signed: Leigh Menon MD. Not Vldtd Invalid Interpretation Code [facility] HPon 04-28-2024 HP ----- ----- Attestation signed by Diana Warren MD at 04/29/2024 8:53 AM Total time spent on day of encounter: 30 minutes Attending attestation: GC: I personally spoke with this patient via telephone on the day of the encounter, performed the vazquez portion(s) of the service and participated in the management and confirm the fellow's documentation. Physical examination was not performed and may limit some portions of the clinical encounter. Please note there may be an additional personal documentation from me. ----- Pulmonary Clinic Visit Note Patient: Bhupendra Rubi Age: 73 y.o. : 1950 Account No.: [id number] Referring physician: Dr. Lundberg Chief complaint: Lung nodule HPI Date of phone call: 04/28/24 Chief Complaint: History of Present Illness: 73-year-old female seen with past medical history of centrilobular emphysema/COPD, chronic smoker, hypertension, lung nodule who was referred by Dr. Lundberg for evaluation of the lung nodule. Patient underwent a bronchoscopy with transbronchial biopsy on February 2024, patient had moderate bleeding episode after the endobronchial biopsies. Requiring epinephrine and tranexamic acid. Pathology returned nondiagnostic. For that reason patient was referred to us for further evaluation. Patient initially had CT scan on November 2022 which showed 0.4-0.6 cm left upper lobe nodule which has increased in size and following up CT scan on December 2023 which is 2.2 cm, PET scan on January 2024 FDG avid positive at SUV 21. Was referred to interventional radiology for tissue sampling and because of the location subscapular it was deferred. Transbronchial bronchoscopy in February 2024 nondiagnostic. Today patient feels relatively well. At her baseline. No recent ER visit or hospitalization. No recent worsening of her symptoms. She is currently on Brester inhaler along with albuterol. Does not use a blood thinner. Not on oxygen at home. She is former smoker with extensive history of smoking, quit 4 months ago. Used to smoke about 1 to 2 pack/day for more than 40 years. Patient has family history of lung cancer. Pmhx: COPD Family hx: lung cancer Total time spent in Medical Discussion including obtaining history from the patient, review of labs, tests with the patient, discussion of assessment and plan . The visit was initiated by the patient and conducted [id number] with use of audio-only real time telephone communication between patient and provider for a virtual visit. Verbal consent to provide and bill this service was obtained on: 04/28/24 No signature was obtained due to the COVID-19 pandemic. Past Medical History: Diagnosis Date Anxiety with depression Centrilobular emphysema (CMS/HCC) GERD (gastroesophageal reflux disease) Hyperlipidemia Hypertension Infrarenal abdominal aortic aneurysm (AAA) without rupture (CMS/HCC) Mass of right parotid gland Multiple pulmonary nodules Past Surgical History: Procedure Laterality Date BRONCHOSCOPY 03/09/2024 CHOLECYSTECTOMY COLONOSCOPY HYSTERECTOMY LUNG BIOPSY 03/2024 ROTATOR CUFF REPAIR Bilateral TUBAL LIGATION Allergies: Patient has no known allergies. Prior to Admission medications Medication Sig Start Date End Date Taking? Authorizing Provider albuterol 90 mcg/actuation inhaler every 4 (four) hours. Yes Historical Provider, aspirin 81 mg EC tablet 1 (one) time each day at the same time. 12/27/23 Yes Historical Provider, atorvastatin (Lipitor) 80 mg tablet 1 (one) time each day at the same time. Yes Historical Provider, MD Ponce Aerosphere 160-9-4.8 mcg/actuation HFA aerosol inhaler every 12 (twelve) hours. 03/02/24 Yes Historical Provider, gabapentin (Neurontin) 300 mg capsule 1 capsule 1 (one) time each day at the same time. Yes Historical Provider, pantoprazole (ProtoNix) 40 mg EC tablet Oral for 90 Days 11/25/23 Yes Historical Provider, traZODone (Desyrel) 100 mg tablet 1 (one) time each day at the same time. 06/09/22 Yes Historical Provider, Social history: reports that she has quit smoking. Her smoking use included cigarettes. She does not have any smokeless tobacco history on file. She reports that she does not currently use alcohol. She reports that she does not use drugs. Family History Problem Relation Name Age of Onset Lung cancer Mother Other (blood clots) Sister Review of Systems: CONSTITUTIONAL: no weight loss, no fever, no chills HEENT: no vision changes, no ear pain, no runny nose, no sore throat RESPIRATORY: no dyspnea, no cough, no wheeze, no sputum production CV: no chest pain, no palpitations, no syncope GI: no abdominal pain, no nausea, no vomiting, no diarrhea. MSK: no myalgia, no joint pain. SKIN: no rash, no pruritus. Physical examination (more content not included)... 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6 - Benign neoplasm of colon, unspecified CT CHEST, ABDOMEN AND PELVIS WITH INTRAVENOUS CONTRAST: CLINICAL HISTORY: Abdominal pain. 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 COMPARISON: CT chest 12/27/2023 aortic ultrasound 12/30/2023. TECHNIQUE: TECHNIQUE: Spiral images were obtained through the chest, abdomen and pelvis following the administration of IV contrast. This CT exam was performed using one or more following dose reduction techniques: Automated exposure control, adjustment of the mA and/or kV according to patient size, or use of iterative reconstruction technique. FINDINGS: CT chest: Mediastinum:Thoracic aorta demonstrate moderate calcification without aneurysm. Pulmonary trunk appears nondilated. Small amount of pericardial fluid noted. Prominent right hilar lymph node measuring 6 mm in short axis. No pathologically enlarged lymph nodes are seen. The esophagus is grossly unremarkable. Tiny hiatal hernia. Lungs:Mild increase in size of the subpleural nodule involving the left upper lobe now measuring 2.6 cm in greatest axial dimension, once measuring 2.2 cm on the prior study. No satellite nodules are seen. This appears to be superimposed on emphysema/reticular changes. Bibasilar scarring. No pneumothorax or pleural effusion. Soft tissues/Bones: Soft tissues surrounding the chest wall demonstrate no acute findings. Osseous structures demonstrate degenerative change. CT abdomen and pelvis: Organs:Hepatic steatosis. Gallbladder has been removed. Portal vein pancreas spleen and adrenal glands appear unremarkable. Small cyst left kidney. Subcentimeter low-attenuation lesions involving both kidneys too small for accurate characterization. Fusiform type infrarenal abdominal aortic aneurysm measuring 3.4 cm in greatest axial dimension.[ GI: Distal stomach is grossly unremarkable. Small bowel appears nondilated. Oral contrast is reaching the right colon. Appendix is normal. No acute colonic abnormality is seen. No abnormal wall thickening or inflammatory changes.[ Pelvis:[Urinary bladder is grossly unremarkable. Uterus has been removed. No adnexal mass.] Peritoneum/Retroperitoneu m:No free air or free fluid or lymphadenopathy.[ Abd wall/Bones:Abdominal wall demonstrate no acute findings. Osseous structures demonstrate degenerative change.[ CT/CT chest w con IMPRESSION: Interval increase in size of the subpleural nodule involving the left upper lobe since the prior CT study suspicious for malignancy. Further evaluation with PET/CT is recommended. No acute findings seen within the abdomen or pelvis. 3.4 cm fusiform type infrarenal abdominal aortic aneurysm similar in size to a prior ultrasound study of 12/30/2023. Impression dictated by: Napoleon Jalloh Jr., ElenaOCathy04/21/2024 4:03 PM Dictation Location: [place] [address] Transcribed By: [facility] 04/21/24 1603 Dictated By: Napoleon Jalloh Jr, DO 04/21/24 1556 Signed By: 04/21/24 1603 Normal [facility] Creatinineon 04-21-2024 GFR/1.73 sq M.predicted MDRD (S/P/Bld) [Vol rate/Area] mL/min/{1.73_m2} Normal [facility] Comment on above: Order Comment: STAT FOR CT Result Comment: PERF ORMED BY: [place] [address] PATHOLOGIST CREATIVE STRATEGIST JENNIFER ALANIZ M.D. Performed By: #### C EA #### [address] Creatinine [Mass/volume] in Serum or PlasmaOrdered By: Mikhail Moon on 04-21-2024 Creatinine [Mass/Vol] 0.91 mg/dL Normal 0.60-1.20 [facility] Comment on above: Order Comment: STAT FOR CT Performed By: #### C EA #### [address] No Panel InformationOrdered By: Mikhail Moon on 04-21-2024 Estimated GFR (CKD-EPI) > 60.0 mL/Min [facility] Creatinine Clearance (Chem N/A [facility] Serum or plasma carcinoembry onic antigen measurement (mass/volume)Ordered By: Mikhail Moon on 04-21-2024 Carcinoembryonic Ag [Mass/Vol] 10.0 ng/mL High 0.0-3.0 [facility] Comment on above: Serial tumor marker results determined by assays using different manufacturers or methods may not be comparable.[facility] human services program specialist and method:ANTIONE UNICEL DXI, 2 SITE IMMUNOENZYMATIC SANDWICH ASSAY. Urea nitrogen [Mass/volume] in Serum or PlasmaOrdered By: Mikhail Moon on 04-21-2024 Urea nitrogen [Mass/Vol] 18 mg/dL Normal 7-25 [facility] Comment on above: Order Comment: STAT FOR CT Performed By: #### C EA #### [facility] [address] [place] [address] No Panel InformationOrdered By: Mikhail Moon on 03-25-2024 Miscellaneous Pathology Test See comment [facility] Comment on above: See report. Scanned copy available in EMR. Pathology Request for Lab Co rpon 03-25-2024 Pathology Request for Lab Crys Normal [facility] Comment on above: Order Comment: PATHO LOGY GI SPECIMEN Result Comment: See report. Scanned copy available in EMR. PERFORMED BY: [place] [address] PATHOLOGIST CREATIVE STRATEGIST JENNIFER ALANIZ M.D. Performed By: #### P ATH TO [facility] #### [facility] [address] [place] [address] Perez 03-09-2024 L Specimen: [id number] Received: 03/10/24 Status: TRINIDAD Araiza Num: [id number] Spec Type: Surgical Subm Dr: Leigh Thompson DO Tissues: A Lung CT-Guided Biopsy (BAL HÉCTOR) Procedures: HE/2, Gross/Micro L4 Age/ Patient Sex Location Account Attending Physician Bhupendra Rubi 73/F LABELL [id number] Leigh Thompson DO SPEC NUM: [id number] RECD: 03/10/24 STATUS: TRINIDAD ARAIZA NUM: [id number] LORA: 03/09/[address] [facility] DR: Leigh Thompson DO ENTERED: 03/10/24-[address] [facility] [address]: Praveen Torres SPEC TYPE: Surgical DEPT: JADE [facility] ENTERED BY: [id number] RECV BY: [id number] ORDERED: HE/2, Gross/Micro L4 ORDERED: HE/2, Gross/Micro L4 Pathological Diagnosis Left upper lobe of lung, endobronchial biopsy: -Fragments of benign bronchial mucosa with focal mild stromal chronic inflammation (mild nonspecific chronic bronchitis) in at least 1 fragment, otherwise without malignancy or any glandular dysplasia identified Clinical Information No intrabronchial lesion, bronchoscopy with BAL using fluoroscopy Gross Description The specimen was received in formalin with the patient's name and left upper lobe biopsy and consists of 2 chandler portions of chandler soft tissue both measuring 0.2 cm in greatest dimension. The specimen is entirely submitted in cassette A1. Microscopic Description Microscopic examinations are performed supporting the above interpretation Specimen: [id number] Received: 03/10/24 Status: TRINIDAD Arguellesshonda Num: [id number] Spec Type: Surgical Subm Dr: Leigh Thompson DO Tissues: A Lung CT-Guided Biopsy (BAL HÉCTOR) Procedures: HE/2, Gross/Micro L4 Patient: GreysonBhupendra Akila [id number] (Continued) Specimen: [id number] Received: 03/10/24 (Continued) Signed (signature on file) Jason Gomez MD 03/18/24 0936 Specimen: [id number] Received: 03/10/24 Status: TRINIDAD Araiza Num: [id number] Spec Type: Surgical Subm Dr: Leigh Thompson DO Tissues: A Lung CT-Guided Biopsy (BAL HÉCTOR) Procedures: Carmelo PAYTON/Griffin L4 Patient: Bhupendra Rubi [id number] (Continued) Specimen: [id number] Received: 03/10/24 (Continued) CPT Codes 23018 Specimen: [id number] Received: 03/10/24 Status: TRINIDAD Araiza Num: [id number] Spec Type: Surgical Subm Dr: Leigh Thompson DO Tissues: A Lung CT-Guided Biopsy (BAL HÉCTOR) Procedures: PAMELA/Carmelo Delatorre/Griffin L4 Patient: Bhupendra Rubi [id number] (Continued) Signed (signature on file) Cha_ Jason Gomez MD 03/18/24 0936 [facility] L Specimen: Received: 03/15/24 Status: TRINIDAD Araiza Num: [id number] Spec Type: Cytology Subm Dr: Leigh Thompson DO Tissues: A [facility] ([facility]) Procedures: HE/2, Gross/Micro L4, Cyto Prepstain, PAPSTN Age/ Patient Sex Location Account Attending Physician GreysonBhupendra Akila 73/F LABELL [id number] Leigh Thompson DO SPEC NUM: [id number] RECD: 03/15/24 STATUS: TRINIDAD ARAIZA NUM: [id number] LORA: 03/09/24-[address]: Leigh Thompson DO ENTERED: 03/15/[address]: Praveen Torres SPEC TYPE: Cytology DEPT: [facility] ENTERED BY: [id number] RECV BY: [id number] ORDERED: HE/2, Gross/Micro L4, Cyto Prepstain, PAPSTN ORDERED: HE/2, Gross/Micro L4, Cyto Prepstain, PAPSTN Pathological Diagnosis Left lung upper lobe cytology: Negative for malignant cells. Gross Description Received fresh is 13 ml clear colorless unfixed fluid for cytology said to have been obtained as left upper lobe for cytology. ThinPrep and cell block preparations are prepared for microscopic examination.(ID/wy) CPT Codes 08866 Specimen: Received: 03/15/24 Status: TRINIDAD Araiza Num: [id number] Spec Type: Cytology Subm Dr: Leigh Thompson DO Tissues: A BRONWASH (LEFT UPPER LOBE) Procedures: HE/2, Gross/Micro L4, Cyto Prepstain, PAPSTN Patient: Bhupendra Rubi [id number] (Continued) Signed (signature on file) Diana Massey MD 03/16/24 1430 Normal [facility] US aortaon 12-30-2023 aorta [facility] [address] [place] [address] Ultrasound Report Signed Patient: Bhupendra Rubi MR#: [id number] 306 : 1950 Acct:[id number] Age/Sex: 73 / F ADM Date: 12/30/23 Loc: [facility] Room: Type: [facility] Attending Dr: Cherelle Bautista SENIOR ORACLE ADF DEVELOPERScarletC Ordering Provider: Cherelle Bautista APRN Date of Service: 12/30/23 US/ aorta: I71.4 Copies to: Cherelle Bautista APRN [...] Adam Keller M.D.12/30/2023 9:53 AM Dictation Location: [place] [address] Tech: Yakelin Gibson Transcribed By: JOSE MIGUEL 12/30/2353 Dictated By: Adam Keller MD 12/30/23 0949 Signed By: 12/30/2353 Normal [facility] ABO/Rh Retypeon 12-27-2023 ABO/RH Recheck Result Positive Normal [facility] Comment on above: Result Comment: PERF ORMED BY: [place] [address] PATHOLOGIST CREATIVE STRATEGIST JENNIFER ALANIZ M.D. Activated partial thrombopla stin time (aPTT) in platelet poor plasma by coagulation aOrdered By: Bernardino Bhakta on 12-27-2023 aPTT Coag (PPP) [Time] 24.6 s Low 25.1-36.5 [facility] Comment on above: A hematocrit value g reater than 55% may lead to inaccurate results in coagulation testing. Patients having hematocrit values >55% require a special collection tube for coagulation studies. Please contact the laboratory at [phone] for redraw instructions. Alanine aminotransferase [En zymatic activity/volume] in Serum or PlasmaOrdered By: Bernardino Bhakta on 12-27-2023 ALT [Catalytic activity/Vol] 10 U/L Normal 7-52 [facility] Comment on above: Performed By: #### H S TROP, CK, CMP, CBC #### [facility] [address] [place] [address] [place] Albumin [Mass/volume] in Ser um or Plasma by Bromocresol green (BCG) dye binding methoOrdered By: Bernardino Bhakta on 12-27-2023 Albumin BCG dye [Mass/Vol] 4.0 g/dL 3.5-5.7 [facility] Alkaline phosphatase [Enzyma tic activity/volume] in Serum or PlasmaOrdered By: Bernardino Bhakta on 12-27-2023 ALP [Catalytic activity/Vol] 105 U/L High 34-104 [facility] Comment on above: Performed By: #### H S TROP, CK, CMP, CBC #### [facility] [address] Arterial Blood [place] 024 ABG Base Excess -2.4 mmol/L Normal -3.0-3.0 [facility] Comment on above: Performed By: #### A BG #### Point of Care testing , ABG Frac Inspired O2 32 % Normal [facility] Comment on above: Performed By: #### A BG #### Point of Care testing , ABG Liter Flow 3 Normal [facility] Comment on above: Performed By: #### A BG #### Point of Care testing , ABG Oxygen Content 7.5 mmol/L Normal 6.6-9.7 [facility] Comment on above: Performed By: #### A BG #### Point of Care testing , ABG Oxygen Saturation 95.5 % Normal 95.0-100.0 [facility] Comment on above: Performed By: #### A BG #### Point of Care testing , ABG PCO2 46.7 mm[Hg] High 35.0-45.0 [facility] Comment on above: Performed By: #### A BG #### Point of Care testing , ABG PH 7.33 Low 7.35-7.45 [facility] Comment on above: Performed By: #### A BG #### Point of Care testing , ABG PO2 84.0 mm[Hg] Normal 80.0-100.0 [facility] Comment on above: Performed By: #### A BG #### Point of Care testing , Oxygen Device Nasal Cannula Normal [facility] Comment on above: Performed By: #### A BG #### Point of Care testing , Respiratory Critical Normal [facility] Comment on above: Result Comment: Crit ical Value called on: 12/27/2023 at 11:36 PERFORMED BY: [address] [place] [address] PATHOLOGIST CREATIVE STRATEGIST JENNIFER ALANIZ M.D. Performed By: #### A BG #### Point of Care testing , VBG Draw Site Left Radial Normal [facility] Comment on above: Performed By: #### A BG #### Point of Care testing , Arterial Blood GasOrdered By : Bernardino Bhakta on 12-27-2023 CO2 [Moles/Vol] 25.3 mmol/L Normal 23.0-27.0 [facility] Comment on above: Performed By: #### A BG #### Point of Care testing , HCO3 (Bld) [Moles/Vol] 23.8 mmol/L Normal 23.0-29.0 [facility] Comment on above: Performed By: #### A BG #### Point of Care testing , Aspartate aminotransferase [ Enzymatic activity/volume] in Serum or PlasmaOrdered By: Bernardino Bhakta on 12-27-2023 AST [Catalytic activity/Vol] 10 U/L Low 13-39 [facility] Comment on above: Performed By: #### H S TROP, CK, CMP, CBC #### [facility] [address] [place] [address] Automated basophil %Ordered By: Bernardino Bhakta on 12-27-2023 Basophils/100 WBC (Bld) 0.6 % Normal . [facility] Comment on above: Performed By: #### H S TROP, CK, CMP, CBC #### [facility] [address] Automated basophil countOrde red By: Bernardino Bhakta on 12-27-2023 Basophils (Bld) [#/Vol] 0.1 10*3/uL Normal 0.0-0.2 [facility] Comment on above: Result Comment: PERF ORMED BY: [address] [place] [address] PATHOLOGIST CREATIVE STRATEGIST JENNIFER ALANIZ M.D. Performed By: #### H S TROP, CK, CMP, CBC #### [address] Automated blood monocyte cou ntOrdered By: Bernardino Bhakta on 12-27-2023 Monocytes (Bld) [#/Vol] 1.3 10*3/uL High 0.0-0.8 [facility] Comment on above: Performed By: #### H S TROP, CK, CMP, CBC #### [address] Automated eosinophil %Ordere d By: Bernardino Bhakta on 12-27-2023 Eosinophils/100 WBC (Bld) 0.6 % Normal . [facility] Comment on above: Performed By: #### H S TROP, CK, CMP, CBC #### [address] Automated eosinophil countOr dered By: Bernardino Bhakta on 12-27-2023 Eosinophils (Bld) [#/Vol] 0.1 10*3/uL Normal 0.0-0.45 [facility] Comment on above: Performed By: #### H S TROP, CK, CMP, CBC #### [address] Automated monocyte %Ordered By: Bernardino Bhakta on 12-27-2023 Monocytes/100 WBC (Bld) 9.8 % Normal . [facility] Comment on above: Performed By: #### H S TROP, CK, CMP, CBC #### [address] Automated neutrophil %Ordere d By: Bernardino Bhakta on 12-27-2023 Neutrophils/100 WBC (Bld) 61.6 % Normal . [facility] Comment on above: Performed By: #### H S TROP, CK, CMP, CBC #### [address] BNP ser/plasOrdered By: Urbano Bhakta on 12-27-2023 Natriuretic peptide B (Bld) [Mass/Vol] 32.0 pg/mL Normal 5-100 [facility] Comment on above: Result Comment: PERF ORMED BY: [place] [address] PATHOLOGIST CREATIVE STRATEGIST JENNIFER ALANIZ M.D. Performed By: #### B SENIOR ORACLE ADF DEVELOPER #### [address] Bacteria [Presence] in Urine sediment by Light microscopyOrdered By: Bernardino Bhakta on 12-27-2023 Bacteria LM Ql (Urine sed) 1+ [HPF] High None Seen [facility] Comment on above: Microscopic results may be affected due to low specimen volume. Bacterial blood cultureOrder ed By: Bernardino Bhakta on 12-27-2023 Bacteria identified Cx Nom (Bld) NO GROWTH 5 DAYS [facility] Bacteria identified Cx Nom (Bld) NO GROWTH 5 DAYS [facility] Bilirubin Test strip Ql (U)O rdered By: Bernardino Bhakta on 12-27-2023 Bilirubin Ql (U) Negative Negative [facility] Bilirubin.total [Mass/volume ] in Serum or PlasmaOrdered By: Bernardino Bhakta on 12-27-2023 Bilirubin [Mass/Vol] 0.3 mg/dL Normal 0.3-1.0 [facility] Comment on above: Performed By: #### H S TROP, CK, CMP, CBC #### [address] Blood Cultureon 12-27-2023 Bacteria identified Cx Nom (Bld) NO GROWTH 5 DAYS PERFORMED BY: [place] [address] PATHOLOGIST CREATIVE STRATEGIST JENNIFER ALANIZ M.D. Normal [facility] Comment on above: Performed By: #### C EA #### [address] Bacteria identified Cx Nom (Bld) NO GROWTH 5 DAYS PERFORMED BY: [place] [address] PATHOLOGIST CREATIVE STRATEGIST JENNIFER ALANIZ M.D. Normal [facility] Comment on above: Performed By: #### C EA #### [facility] [address] [place] [id number] [facility] CT angio chest PE protocolon 12-27-2023 CT angio chest PE protocol [facility] [place] [address] [place] [id number] Scan Report Signed Patient: Bhupendra Rubi MR#: [id number] 306 : 1950 Acct:[id number] Age/Sex: 73 / F ADM Date: 12/27/23 Loc: ER Room: Type: [facility] ER Attending Dr: Copies to: Bernardino Bhakta MD Ordering Provider: Bernardino Bhakta MD Date of Service: 12/27/23 CT/CT angio [...] Adam Berger M.D.12/27/2023 12:14 PM Dictation Location: [place] [address] Transcribed By: [facility] 12/27/23 1214 Dictated By: Adam Berger DO 12/27/23 1210 Signed By: 12/27/23 1214 Normal [facility] Calcium [Mass/volume] in Ser um or PlasmaOrdered By: Bernardino Bhakta on 12-27-2023 Calcium [Mass/Vol] 9.3 mg/dL Normal 8.6-10.3 [facility] Comment on above: Performed By: #### H S TROP, CK, CMP, CBC #### [facility] [address] Carbon dioxide, total [Moles /volume] in Serum or PlasmaOrdered By: Bernardino Bhakta on 12-27-2023 CO2 [Moles/Vol] 26.9 mmol/L Normal 21.0-31.0 [facility] Comment on above: Performed By: #### H S TROP, CK, CMP, CBC #### [address] Chloride [Moles/volume] in S [place] or PlasmaOrdered By: Bernardino Bhakta on 12-27-2023 Chloride [Moles/Vol] 104 mmol/L Normal 98-107 [facility] Comment on above: Performed By: #### H S TROP, CK, CMP, CBC #### [address] Color of Urine by AutoOrdere d By: Bernardino Bhakta on 12-27-2023 Color (U) Yellow Normal Yellow [facility] Comment on above: Order Comment: Name Collection Type:: Clean-Voided Midstream Performed By: #### O B(GUAIAC) #### [address] Complete Blood Count Auto Di ffon 12-27-2023 Mean Corpuscular HGB Conc 33.0 g/dL Normal 32.0-35.0 [facility] Comment on above: Performed By: #### H S TROP, CK, CMP, CBC #### [address] Monocytes/100 WBC (Bld) 19.53 % Normal 0.00-20.00 [facility] Comment on above: Performed By: #### H S TROP, CK, CMP, CBC #### [address] NRBC% 0.1 /100{WBC} Normal 0-0.5 [facility] Comment on above: Performed By: #### H S TROP, CK, CMP, CBC #### [address] Comprehensive Metabolic Pane perez 12-27-2023 Albumin [Mass/Vol] 4.0 g/dL Normal 3.5-5.7 [facility] Comment on above: Performed By: #### H S TROP, CK, CMP, CBC #### [address] Creatinine Clr Calc Pharmacy 50.59 Normal [facility] Comment on above: Result Comment: PERF ORMED BY: [place] [address] PATHOLOGIST CREATIVE STRATEGIST JENNIFER ALANIZ M.D. Performed By: #### H S TROP, CK, CMP, CBC #### [address] GFR/1.73 sq M.predicted MDRD (S/P/Bld) [Vol rate/Area] mL/min/{1.73_m2} Normal [facility] Comment on above: Performed By: #### H S TROP, CK, CMP, CBC #### [address] Creatine kinase [Enzymatic a ctivity/volume] in Serum or PlasmaOrdered By: Bernardino Bhakta on 12-27-2023 CK [Catalytic activity/Vol] 41 U/L Normal 30-223 [facility] Comment on above: Performed By: #### H S TROP, CK, CMP, CBC #### [address] Creatinine [Mass/volume] in Serum or PlasmaOrdered By: Bernardino Bhakta on 12-27-2023 Creatinine [Mass/Vol] 0.94 mg/dL Normal 0.60-1.20 [facility] Comment on above: Performed By: #### H S TROP, CK, CMP, CBC #### [place] [id number] [facility] D-Dimer High Sensitivityon 0 12-27-2023 D-Dimer High Sensitivity 480 ng/mL High 0-243 [facility] Comment on above: Result Comment: [...] coagulation studies. Please contact the laboratory at [phone] for redraw instructions. PERFORMED BY: [place] [address] PATHOLOGIST CREATIVE STRATEGIST JENNIFER ALANIZ M.D. Performed By: #### C EA #### [place] [address] [place] Dipstick and Microscopicon 0 12-27-2023 Bacteria,Urine 1+ High None Seen [facility] Comment on above: Order Comment: Name Collection Type:: Clean-Voided Midstream Result Comment: Micr oscopic results may be affected due to low specimen volume. PERFORMED BY: [place] [address] PATHOLOGIST CREATIVE STRATEGIST JENNIFER ALANIZ M.D. Performed By: #### O B(GUAIAC) #### [address] Bilirubin,Urine Negative Normal Negative [facility] Comment on above: Order Comment: Name Collection Type:: Clean-Voided Midstream Performed By: #### O B(GUAIAC) #### [address] Glucose Ql (U) Normal Normal Normal [facility] Comment on above: Order Comment: Name Collection Type:: Clean-Voided Midstream Performed By: #### O B(GUAIAC) #### [address] Nitrite,Urine Negative Normal Negative [facility] Comment on above: Order Comment: Name Collection Type:: Clean-Voided Midstream Performed By: #### O B(GUAIAC) #### [address] Occult Blood,Urine Negative Normal Negative [facility] Comment on above: Order Comment: Name Collection Type:: Clean-Voided Midstream Result Comment: PERF ORMED BY: [place] [address] PATHOLOGIST CREATIVE STRATEGIST JENNIFER ALANIZ M.D. Performed By: #### O B(GUAIAC) #### [address] Protein,Urine Negative Normal Negative [facility] Comment on above: Order Comment: Name Collection Type:: Clean-Voided Midstream Performed By: #### O B(GUAIAC) #### [address] RBC,Urine None Seen Normal 0-4 [facility] Comment on above: Order Comment: Name Collection Type:: Clean-Voided Midstream Result Comment: Micr oscopic results may be affected due to low specimen volume. Performed By: #### O B(GUAIAC) #### [address] Specificy [place],Urine 1.043 High 1.00 1-1.03 0 [facility] Comment on above: Order Comment: Name Collection Type:: Clean-Voided Midstream Performed By: #### O B(GUAIAC) #### [address] Squamous Epithelial Cell,Urine 5-9 High 0-2 [facility] Comment on above: Order Comment: Name Collection Type:: Clean-Voided Midstream Result Comment: Micr oscopic results may be affected due to low specimen volume. Performed By: #### O B(GUAIAC) #### [address] Urobilinogen,Urine Normal Normal Normal [facility] Comment on above: Order Comment: Name Collection Type:: Clean-Voided Midstream Performed By: #### O B(GUAIAC) #### [address] WBC,Urine 5-9 High 0-4 [facility] Comment on above: Order Comment: Name Collection Type:: Clean-Voided Midstream Result Comment: Micr oscopic results may be affected due to low specimen volume. Performed By: #### O B(GUAIAC) #### [address] ECG 12 lead ECGon 12-27-2023 ECG 12 lead ECG [facility] Main [place] [address] [place] [address] Electrocardiograph Report Signed Patient: Bhupendra Rubi MR#: [id number] 306 : 1950 Acct:[id number] Age/Sex: 73 / F ADM Date: 12/27/23 Loc: ER Room: Type: [facility] ER Attending Dr: Ordering Provider: Bernardino Bhakta MD Date of Service: 12/27/23 ECG/ECG 12 [...] No previous ECGs available Confirmed by BERNARDINO BHAKTA MD ([id number]) on 12/27/2023 7:14:47 PM Referred By: Electronically Signed By:BERNARDINO BHAKTA MD Transcribed By: MUS Signed By Bernardino Bhakta MD 12/11 Normal [facility] Epithelial cells.squamous [# /area] in Urine sediment by Microscopy high power fieldOrdered By: Bernardino Bhakta on 12-27-2023 Epithelial cells.squamous LM.HPF (Urine sed) [#/Area] 5-9 [HPF] High 0-2 [facility] Comment on above: Microscopic results may be affected due to low specimen volume. Erythrocyte distribution wid th [Ratio] by Automated countOrdered By: Bernardino Bhakta on 12-27-2023 Erythrocyte distribution width (RBC) [Ratio] 15.6 % High 11.9-15.3 [facility] Comment on above: Performed By: #### H S TROP, CK, CMP, CBC #### [facility] [address] Erythrocytes [#/area] in Uri ne sediment by Microscopy high power fieldOrdered By: Bernardino Bhakta on 12-27-2023 RBC LM.HPF (Urine sed) [#/Area] None seen [HPF] 0-4 [facility] Comment on above: Microscopic results may be affected due to low specimen volume. Erythrocytes [#/volume] in B lood by Automated countOrdered By: Bernardino Bhakta on 12-27-2023 RBC (Bld) [#/Vol] 5.03 10*6/uL High 3.60-5.00 [facility] Comment on above: Performed By: #### H S TROP, CK, CMP, CBC #### [facility] [address] [place] [address] Fecal occult blood detection by immunochemistryOrdered By: Bernardino Bhakta on 12-27-2023 Hemoglobin.gastrointesti nal Ql (Stl) [facility] Fibrin D-dimer [Presence] in Platelet poor plasma by Latex agglutinationOrdered By: Bernardino Bhakta on 12-27-2023 Fibrin D-dimer LA Ql (PPP) 480 ng/mL High 0-243 [facility] Comment on above: The reference range [...] coagulation studies. Please contact the laboratory at [phone] for redraw instructions. Glucose [Mass/volume] in Ser um or PlasmaOrdered By: Bernardino Bhakta on 12-27-2023 Glucose [Mass/Vol] 120 mg/dL High 70-100 [facility] Comment on above: ADA recommended refe rence rangeRandom Glucose Reference Range is dependent on time and content of last meal. Glucose of more than 200 mg/dL in a nonstressed, ambulatory subject supports the diagnosis of Diabetes Mellitus. Result Comment: [place] om Glucose Reference Range is dependent on time and content of last meal. Glucose of more than 200 mg/dL in a nonstressed, ambulatory subject supports the diagnosis of Diabetes Mellitus. ADA recommended reference range Performed By: #### H S TROP, CK, CMP, CBC #### [facility] [address] [place] [address] Glucose [Mass/volume] in Uri ne by Test stripOrdered By: Bernardino Bhakta on 12-27-2023 Glucose Test strip (U) [Mass/Vol] Normal mg/dL Normal [facility] Hematocrit [Volume Fraction] of Blood by Automated countOrdered By: Bernardino Bhakta on 12-27-2023 Hematocrit (Bld) [Volume fraction] 44.0 % Normal 34.0-46.4 [facility] Comment on above: Performed By: #### H S TROP, CK, CMP, CBC #### [address] Hemoglobin Test strip Ql (U) Ordered By: Bernardino Bhakta on 12-27-2023 Hemoglobin Ql (U) Negative Negative [facility] Hemoglobin [Mass/volume] in BloodOrdered By: Bernardino Bhakta on 12-27-2023 Hemoglobin (Bld) [Mass/Vol] 14.5 g/dL Normal 11.8-15.4 [facility] Comment on above: Performed By: #### H S TROP, CK, CMP, CBC #### [facility] [address] [place] [address] [place] INR in Platelet poor plasma by Coagulation assayOrdered By: Bernardino Bhakta on 12-27-2023 INR Coag (PPP) [Relative time] 1.0 {INR} Normal [facility] Comment on above: INR Therapeutic Rang [...] 3 - 4.5 Performed By: #### C EA #### [place] [address] [place] Ketones [Presence] in Urine by Test stripOrdered By: Bernardino Bhakta on 12-27-2023 Ketones Ql (U) Negative Normal Negative [facility] Comment on above: Order Comment: Name Collection Type:: Clean-Voided Midstream Performed By: #### O B(GUAIAC) #### [place] [address] [place] Lactate [Moles/volume] in Se rum or PlasmaOrdered By: Bernardino Bhakta on 12-27-2023 Lactate [Moles/Vol] 1.6 mmol/L Normal 0.5-2.2 [facility] Comment on above: Result Comment: PERF ORMED BY: [place] [address] PATHOLOGIST CREATIVE STRATEGIST JENNIFER ALANIZ M.D. Performed By: #### C EA #### [place] [address] [place] Leukocyte esterase [Presence ] in Urine by Test stripOrdered By: Bernardino Bhakta on 12-27-2023 Leukocyte esterase Test strip Ql (U) 4+ High Negative [facility] Comment on above: Order Comment: Name Collection Type:: Clean-Voided Midstream Performed By: #### O B(GUAIAC) #### [address] Leukocytes [#/area] in Urine sediment by Microscopy high power fieldOrdered By: Bernardino Bhakta on 12-27-2023 WBC LM.HPF (Urine sed) [#/Area] 5-9 [HPF] High 0-4 [facility] Comment on above: Microscopic results may be affected due to low specimen volume. Leukocytes [#/volume] correc pilar for nucleated erythrocytes in Blood by Automated counOrdered By: Bernardino Bhakta on 12-27-2023 WBC corrected for nucl RBC Auto (Bld) [#/Vol] 13.4 10*3/uL High 3.8-11.6 [facility] Leukocytes [#/volume] in Blo od by Automated countOrdered By: Bernardino Bhakta on 12-27-2023 WBC (Bld) [#/Vol] 13.4 10*3/uL High 3.8-11.6 [facility] Comment on above: Performed By: #### H S TROP, CK, CMP, CBC #### [facility] [address] [place] [address] Lymphocytes [#/volume] in Bl ood by Automated countOrdered By: Bernardino Bhakta on 12-27-2023 Lymphocytes (Bld) [#/Vol] 3.7 10*3/uL Normal 1.00-4.8 [facility] Comment on above: Performed By: #### H S TROP, CK, CMP, CBC #### [facility] [address] [place] [address] [place] Lymphocytes/100 leukocytes i n Blood by Automated countOrdered By: Bernardino Bhakta on 12-27-2023 Lymphocytes/100 WBC (Bld) 27.4 % Normal . [facility] Comment on above: Performed By: #### H S TROP, CK, CMP, CBC #### [facility] [address] [place] [address] [place] MCH [Entitic mass] by Automa pilar countOrdered By: Bernardino Bhakta on 12-27-2023 MCH (RBC) [Entitic mass] 28.9 pg Normal 24.7-34.3 [facility] Comment on above: Performed By: #### H S TROP, CK, CMP, CBC #### [facility] [address] MCHC Auto (RBC) [Mass/Vol]Or dered By: Bernardino Bhakta on 12-27-2023 MCHC (RBC) [Mass/Vol] 33.0 g/dL 32.0-35.0 [facility] MCV [Entitic volume] by Auto mated countOrdered By: Bernardino Bhakta on 12-27-2023 MCV (RBC) [Entitic vol] 87.6 fL Normal 80-100 [facility] Comment on above: Performed By: #### H S TROP, CK, CMP, CBC #### [facility] [address] [place] [address] Monocyte distribution width [Entitic volume] in Blood by AutomatedOrdered By: Bernardino Bhakta on 12-27-2023 Monocyte distribution width Auto (Bld) [Entitic vol] 19.53 % 0.00-20.00 [facility] Neutrophils [#/volume] in Bl ood by Automated countOrdered By: Bernardino Bhakta on 12-27-2023 Neutrophils (Bld) [#/Vol] 8.3 10*3/uL High 1.8-7.7 [facility] Comment on above: Performed By: #### H S TROP, CK, CMP, CBC #### [facility] [address] [place] [address] Nitrite Test strip Ql (U)Ord ered By: Bernardino Bhakta on 12-27-2023 Nitrite Ql (U) Negative Negative [facility] No Panel InformationOrdered By: Bernardino Bhakta on 12-27-2023 Arterial Blood Base Excess -2.4 mmol/L -3.0-3.0 [facility] Arterial Blood Oxygen Content 7.5 mmol/L 6.6-9.7 [facility] Arterial Blood Oxygen Saturation 95.5 % 95.0-100.0 [facility] Arterial Blood Partial Pressure CO2 46.7 mm[Hg] High 35.0-45.0 [facility] Arterial Blood Partial Pressure O2 84.0 mm[Hg] 80.0-100.0 [facility] Arterial Blood pH 7.33 Low 7.35-7.45 [facility] Blood Gas Critical Value See comment [facility] Comment on above: Critical Value chaves d on: 12/27/2023 at 11:36 Blood Gas Liter Flow 3 L/min [facility] Blood Gas Sample Site Left radial Fi [facility] FiO2 32 % [facility] Oxygen Delivery Device Nasal cannula [facility] Estimated GFR (CKD-EPI) > 60.0 mL/Min [facility] Creatinine Clearance (Chem 50.59 [facility] Nucleated erythrocytes [Pres ence] in Blood by Automated countOrdered By: Bernardino Bhakta on 12-27-2023 Nucleated RBC Auto Ql (Bld) 0.1 /100{WBC} 0-0.5 [facility] Partial Thromboplastin Timeo n 12-27-2023 aPTT Coag (Bld) [Time] 24.6 s Low 25.1-36.5 [facility] Comment on above: Result Comment: A he matocrit value greater than 55% may lead to inaccurate results in coagulation testing. Patients having hematocrit values >55% require a special collection tube for coagulation studies. Please contact the laboratory at [phone] for redraw instructions. Performed By: #### C EA #### [facility] [address] [place] [address] [place] Platelet mean volume [Entiti c volume] in Blood by Automated countOrdered By: Bernardino Bhakta on 12-27-2023 Platelet mean volume (Bld) [Entitic vol] 8.3 fL Normal 6.3-10.7 [facility] Comment on above: Performed By: #### H S TROP, CK, CMP, CBC #### [facility] [address] [place] [address] [place] Platelets [#/volume] in Bloo d by Automated countOrdered By: Bernardino Bhakta on 12-27-2023 Platelets (Bld) [#/Vol] 399 10*3/uL Normal 150-450 [facility] Comment on above: Performed By: #### H S TROP, CK, CMP, CBC #### [address] Potassium [Moles/volume] in Serum or PlasmaOrdered By: Bernardino Bhakta on 12-27-2023 Potassium [Moles/Vol] 3.7 mmol/L Normal 3.5-5.1 [facility] Comment on above: Performed By: #### H S TROP, CK, CMP, CBC #### [address] Protein Test strip (U) [Mass /Vol]Ordered By: Bernardino Bhakta on 12-27-2023 Protein (U) [Mass/Vol] Negative Negative [facility] Protein [Mass/volume] in Ser um or PlasmaOrdered By: Bernardino Bhakta on 12-27-2023 Protein [Mass/Vol] 6.8 g/dL Normal 6.4-8.9 [facility] Comment on above: Performed By: #### H S TROP, CK, CMP, CBC #### [address] Prothrombin time (PT)Ordered By: Bernardino Bhakta on 12-27-2023 PT Coag (PPP) [Time] 11.5 s Normal 9.0-12.9 [facility] Comment on above: A hematocrit value g reater than 55% may lead to inaccurate results in coagulation testing. Patients having hematocrit values >55% require a special collection tube for coagulation studies. Please contact the laboratory at [phone] for redraw instructions. Result Comment: A he matocrit value greater than 55% may lead to inaccurate results in coagulation testing. Patients having hematocrit values >55% require a special collection tube for coagulation studies. Please contact the laboratory at [phone] for redraw instructions. Performed By: #### C EA #### [address] Serum globulin measurement b y calculation (mass/volume)Ordered By: Bernardino Bhakta on 12-27-2023 Globulin (S) [Mass/Vol] 2.8 g/dL Normal [facility] Comment on above: Performed By: #### H S TROP, CK, CMP, CBC #### [facility] [address] [place] [address] Serum or plasma albumin/glob ulin mass ratioOrdered By: Bernardino Bhakta on 12-27-2023 Albumin/Globulin [Mass ratio] 1.4 {ratio} Normal [facility] Comment on above: Performed By: #### H S TROP, CK, CMP, CBC #### [address] Serum or plasma anion gap de terminationOrdered By: Bernardino Bhakta on 12-27-2023 Anion gap [Moles/Vol] 12.8 mmol/L Normal 6.0-15.0 [facility] Comment on above: Performed By: #### H S TROP, CK, CMP, CBC #### [address] Sodium [Moles/volume] in Ser um or PlasmaOrdered By: Bernardino Bhakta on 12-27-2023 Sodium [Moles/Vol] 140 mmol/L Normal 136-145 [facility] Comment on above: Performed By: #### H S TROP, CK, CMP, CBC #### [address] Specific gravity Test strip (U) [Rel density]Ordered By: Bernardino Bhakta on 12-27-2023 Specific gravity (U) [Rel density] 1.043 High 1.001-1.03 0 [facility] Stool Occult Blood (Guaiac)o n 12-27-2023 Stool Occult Blood (Guaiac) Occult Blood Negative for Occult Blood by Guaiac Methodology ---- Reference range = Negative PERFORMED BY: [place] [address] PATHOLOGIST CREATIVE STRATEGIST JENNIFER ALANIZ M.D. Normal [facility] Comment on above: Performed By: #### O B(GUAIAC) #### [facility] [address] [place] [address] Troponin I High Sensitivityo n 12-27-2023 Troponin I High Sensitivity < 2.3 Normal 0.0-15.0 [facility] Comment on above: Result Comment: PERF ORMED BY: [place] [address] PATHOLOGIST CREATIVE STRATEGIST JENNIFER ALANIZ M.D. Performed By: #### H S TROP, CK, CMP, CBC #### [address] Troponin I.cardiac [Mass/vol ume] in Serum or Plasma by Detection limit <= 0.01 ng/Ordered By: Bernardino Bhakta on 12-27-2023 Troponin I.cardiac DL <= 0.01 ng/mL [Mass/Vol] < 2.3 pg/mL 0.0-15.0 [facility] Type and Screenon 12-27-2023 ABO and Rh group Nom (Bld) Blood group A Rh(D) positive Normal [facility] Urea nitrogen [Mass/volume] in Serum or PlasmaOrdered By: Bernardino Bhakta on 12-27-2023 Urea nitrogen [Mass/Vol] 13 mg/dL Normal 7-25 [facility] Comment on above: Performed By: #### H S TROP, CK, CMP, CBC #### [facility] [address] [place], [place] [id number] [place] Urine Cultureon 12-27-2023 Bacteria identified Cx Nom (U) 50,000 colonies/ml mixed bacterial skin contaminants 2 Days PERFORMED BY: [place] [address] PATHOLOGIST CREATIVE STRATEGIST JENNIFER ALANIZ M.D. Normal [facility] Comment on above: Performed By: #### O B(GUAIAC) #### [facility] [address] [place] [address] Urine appearanceOrdered By: Bernardino Bhakta on 12-27-2023 Appearance (U) Cloudy Critically abnormal Clear [facility] Comment on above: Order Comment: Name Collection Type:: Clean-Voided Midstream Performed By: #### O B(GUAIAC) #### [place] [id number] [facility] Urine culture routineOrdered By: Bernardino Bhakta on 12-27-2023 Bacteria identified Cx Nom (U) 2 Days [facility] Urobilinogen Test strip (U) [Mass/Vol]Ordered By: Bernardino Bhakta on 12-27-2023 Urobilinogen (U) [Mass/Vol] Normal mg/dL Normal [facility] XR chest 1V portableon 12-26 XR chest 1V portable [facility] Main [place] [address] [place] [id number] XRay Report Signed Patient: Bhupendra Rubi MR#: [id number] : 1950 Acct:[id number] Age/Sex: 73 / F ADM Date: 12/27/23 Loc: ER Room: Type: [facility] ER Attending Dr: Copies to: Bernardino Bhakta MD Ordering Provider: Bernardino Bhakta MD Date of Service: 12/27/23 XR/XR chest [...] Adam Berger M.D.12/27/2023 12:16 PM Dictation Location: [place] [address] Transcribed By: [facility] 12/27/23 1216 Dictated By: Adam Berger DO 12/27/23 1204 Signed By: 12/27/23 1216 Juliano [facility] pH of Urine by Test stripOrd ered By: Bernardino Bhakta on 12-27-2023 pH (U) 6.0 [pH] Normal 5.0-9.0 [facility] Comment on above: Order Comment: Name Collection Type:: Clean-Voided Midstream Performed By: #### O B(GUAIAC) #### [facility] [address] [place] [id number] [facility] Provider Letteron 06-23-2023 Provider Letter (Inserted Image. Es ble to display) June 23, 2023 BHUPENDRA RUBI [address] [place], [place] [address], [place] [address] : 1950 Dear Bhupendra, We are reaching out to inform you that Dr. Turner is now approved and credentialed with your insurance. Please call our office at your earliest convenience to schedule the EGD that was recommended at your last visit. Thank you for your prompt attention to this matter. Sincerely, [facility] [phone] Normal [facility] CHEMISTRYOrdered By: SYSTEM SYSTEM on 01-01-2023 Ferritin [...] 61 mL/min/1.73 m2 Normal >=59mL/min /1.73 m2 [facility] Chem S Globulin (S) [Mass/Vol] 3.5 g/dL Normal 1.4 - 4.0 gm/dL [facility] Glucose [Mass/Vol] 100 mg/dL Normal 55 - 199 mg/dL [facility] Potassium [Moles/Vol] 4.3 mmol/L Normal 3.5 [...] 13.6 E9/L High 4.0 - 11.0 E9/L [facility] HemeAutoSS CBC AUTO DIFFon 11-11-2022 BASO # 0.1 103/ul Normal 0.0-0.1 [facility] Comment on above: Performed By: #### C BC #### [facility] [address] [place] [address] [address] Anisa Gomez Basophils/100 WBC (Bld) 0.5 % Normal 0.2-2.0 [facility] Comment on above: Performed By: #### C BC #### [facility] [address] [place] [address] Dr. Anisa Gomez EO # 0.1 103/ul Normal 0.0-0.7 [facility] Comment on above: Performed By: #### C BC #### [facility] [address] [place] [address] Dr. Anisa Gomez Eosinophils/100 WBC (Bld) 0.8 % Critically low 0.9-7.0 [facility] Comment on above: Performed By: #### C BC #### [facility] [address] [place] [address] Dr. Anisa Gomez Erythrocyte distribution width (RBC) [Ratio] 15.2 % Critically high 11.0-15.0 [facility] Comment on above: Performed By: #### C BC #### [facility] [address] [place] [address] Dr. Anisa Gomez Hematocrit (Bld) [Volume fraction] 48.8 % Critically high 36.0-48.0 [facility] Comment on above: Performed By: #### C BC #### [facility] [address] [place] [address] Dr. Anisa Gomez Hemoglobin (Bld) [Mass/Vol] 15.8 g/dL Normal 12.0-16.0 [facility] Comment on above: Performed By: #### C BC #### [facility] [address] [place] [address] Dr. Anisa Gomez IG # 0.03 10e3/ul Normal 0.00-0.03 [facility] Comment on above: Performed By: #### C BC #### [facility] [address] [place] [address] Dr. Anisa Gomez IG % 0.2 % Normal 0.0-0.5 [facility] Comment on above: Performed By: #### C BC #### [facility] [address] [place] [address] Dr. Anisa Gomez LYMPH # 3.2 103/ul Normal 1.2-3.8 [facility] Comment on above: Performed By: #### C BC #### [facility] [address] [place] [address] Dr. Anisa Gomez Lymphocytes/100 WBC (Bld) 21.9 % Normal 20.5-60.0 [facility] Comment on above: Performed By: #### C BC #### [facility] [address] [place] [address] Dr. Anisa Gomez MANUAL DIFF REQ NO Normal [facility] Comment on above: Performed By: #### C BC #### [facility] [address] [place] [address] Dr. Anisa Gomez MCH (RBC) [Entitic mass] 29.9 pg Normal 26.7-34.0 [facility] Comment on above: Performed By: #### C BC #### [facility] [address] [place] [address] Dr. Anisa Gomez MCHC (RBC) [Mass/Vol] 32.4 g/dL Normal 29.9-35.2 [facility] Comment on above: Performed By: #### C BC #### [facility] [address] [place] [address] Dr. Anisa Gomez MCV (RBC) [Entitic vol] 92.2 fL Normal 81.0-99.0 [facility] Comment on above: Performed By: #### C BC #### [facility] [address] [place] [address] Dr. Anisa Gomez MONO # 1.2 103/ul Critically high 0.3-0.8 [facility] Comment on above: Performed By: #### C BC #### [facility] [address] [place] [address] Dr. Anisa Gomez Monocytes/100 WBC (Bld) 8.0 % Normal 1.7-12.0 [facility] Comment on above: Performed By: #### C BC #### [facility] [address] [place] [address] Dr. Anisa Gomez NEUT # 9.9 103/ul Critically high 1.4-6.5 [facility] Comment on above: Performed By: #### C BC #### [facility] [address] [place] [address] Dr. Anisa Gomez Neutrophils/100 WBC (Bld) 68.6 % Normal 43.0-75.0 [facility] Comment on above: Performed By: #### C BC #### [facility] [address] [place] [address] Dr. Anisa Gomez Platelet mean volume (Bld) [Entitic vol] 10.6 fL Normal 9.5-13.5 [facility] Comment on above: Performed By: #### C BC #### [facility] [address] [place] [address] Dr. Anisa Gomez PLT 336 103/ul Normal 150-450 [facility] Comment on above: Performed By: #### C BC #### [facility] [address] [place] [address] Dr. Anisa Gomez RBC 5.29 106/ul Normal 4.20-5.40 [facility] Comment on above: Performed By: #### C BC #### [facility] [address] [place] [address] Dr. Anisa Gomez WBC 14.4 103/ul Critically high 4.0-11.0 [facility] Comment on above: Performed By: #### C BC #### [facility] [address] [place] [address] Dr. Anisa Gomez CTA ABD/PELVIS WO W [...] by: LAYNE HO Date: 2022-11-11 18:26 Normal [facility] CTA CHEST WO W CONon 023 [...] ANDRES UNLU Date: 2022-11-11 17:48 Normal [facility] ER URINE PROFILEon 3 Bilirubin Ql (U) Negative Normal NEGATIVE [facility] Comment on above: Performed By: #### E RUR ####[facility] [address] [place], [place] [address]Dr. Anisa Gomez Clarity (U) CLEAR Normal CLEAR [facility] Comment on above: Performed By: #### E RUR ####[facility] [address] [place], [place] [address]Dr. Anisa Gomez Color (U) LT. YELLOW Normal YELLOW [facility] Comment on above: Performed By: #### E RUR ####[facility] [address] [place], [place] [address]Dr. Anisa Gomez ERUAHD A micrscopic examina tion will be performed if indicated. Normal [facility] Comment on above: Performed By: #### E RUR ####[facility] Enh[address] [place], [place] [address]Dr. Anisa Gomez Glucose Ql (U) Negative Normal NEGATIVE [facility] Comment on above: Performed By: #### E RUR ####[facility] L[address] [place], [place] [address]Dr. Anisa Gomez Hemoglobin Ql (U) Negative Normal NEGATIVE [facility] Comment on above: Performed By: #### E RUR ####[facility] [address] [place] [address]Dr. Anisa Jason Ketones Ql (U) Negative Normal NEGATIVE [facility] Comment on above: Performed By: #### E RUR ####[facility] H[address] [place], [place] [address]Dr. Anisa Jason LEUKOCYTES Negative Normal NEGATIVE [facility] Comment on above: Performed By: #### E RUR ####[facility] By[address] [place], [place] [address]Dr. Anisa Jason Nitrite Ql (U) Negative Normal NEGATIVE [facility] Comment on above: Performed By: #### E RUR ####[facility] [address] [place], [place] [address]Dr. Anisa Gomez pH (U) 5.5 [pH] Normal 5-9 [facility] Comment on above: Performed By: #### E RUR ####[facility] [address] [place], [place] [address]Dr. Cherryann Gomez SPEC GRAVITY >=1.030 Abnormal 1.005-<=1. 025 [facility] Comment on above: Performed By: #### E RUR ####[facility] [address] [place], [place] [address]Dr. Anisa Gomez UA PROTEIN Negative Normal NEGATIVE/ TRACE [facility] Comment on above: Performed By: #### E RUR ####[facility] [address] [place], [place] [address]Dr. Anisa Gomez UR MICRO IND NOT INDICATED Normal [facility] Comment on above: Performed By: #### E RUR ####[facility] [address] [place], [place] [address]Dr. Anisa Gomez Urobilinogen Qn (U) 0.2 {Agustin'U}/dL Normal 0.2 - 1. 0 [facility] Comment on above: Performed By: #### E RUR ####[facility] [address] [place], [place] [address]Dr. Anisa Gomez LIPASEon 11-11-2022 Lipase [Catalytic activity/Vol] 100.0 U/L Normal 73.0-393.0 [facility] Comment on above: Performed By: #### L IVKAMRAN LIPA #### [facility] [address] [place] [address] Dr. Anisa Gomez LIVER PROFILEon 11-11-2022 Albumin [Mass/Vol] 3.8 g/dL Normal 3.4-5.0 [facility] Comment on above: Performed By: #### L IVKAMRAN, LIPA #### [facility] [address] [place] [address] Dr. Anisa Gomez Albumin/Globulin [Mass ratio] 0.9 {ratio} Normal [facility] Comment on above: Performed By: #### L IVKAMRAN LIPA #### [facility] [address] [place] [address] Dr. Anisa Gomez ALP [Catalytic activity/Vol] 107 U/L Normal 46-116 [facility] Comment on above: Performed By: #### L IVKAMRAN LIPA #### [facility] [address] [place] [address] Dr. Anisa Gomez ALT [Catalytic activity/Vol] 25 U/L Normal 14-59 [facility] Comment on above: Performed By: #### L IVKAMRAN, LIPA #### [facility] [address] [place] [address] Dr. Anisa Gomez AST [Catalytic activity/Vol] 25 U/L Normal 15-37 [facility] Comment on above: Performed By: #### L IVER, LIPA #### [facility] [address] [place] [address] Dr. Anisa Gomez BILI, CONJUGATED 0.1 mg/dL Normal 0.0-0.2 [facility] Comment on above: Performed By: #### L IVER, LIPA #### [facility] [address] [place] [address] Dr. Anisa Gomez Bilirubin [Mass/Vol] 0.5 mg/dL Normal 0.2-1.0 [facility] Comment on above: Performed By: #### L JANET OVALLE #### [facility] [address] [place] [address] Dr. Anisa Gomez Globulin (S) [Mass/Vol] 4.0 g/dL Normal [facility] Comment on above: Performed By: #### L CORNEL OVALLEA #### [facility] [address] [place] [address] Dr. Anisa Gomez Protein [Mass/Vol] 7.8 g/dL Normal 6.4-8.2 [facility] Comment on above: Performed By: #### L JANET OVALLE #### [facility] [address] [place] [address] Dr. Anisa Gomez PROF CHEM 8 (BAS METB)on Anion gap [Moles/Vol] 13.2 mmol/L Normal [facility] Comment on above: Performed By: #### B MP #### [facility] [address] [place] [address] Dr. Anisa Gomez Calcium [Mass/Vol] 9.4 mg/dL Normal 8.5-10.1 [facility] Comment on above: Performed By: #### B MP #### [facility] [address] [place] [address] Dr. Anisa Gomez Chloride [Moles/Vol] 103 mmol/L Normal 98-107 [facility] Comment on above: Performed By: #### B MP #### [facility] [address] [place] [address] Dr. Anisa Gomez CO2 [Moles/Vol] 29.3 mmol/L Normal 21.0-32.0 [facility] Comment on above: Performed By: #### B MP #### [facility] [address] [place] [address] Dr. Anisa Gomez Creatinine [Mass/Vol] 1.02 mg/dL Normal 0.55-1.02 [facility] Comment on above: Performed By: #### B MP #### [facility] [address] [place] [address] Dr. Anisa Gomez EGFR-AF NIGERIEN 60 mL/min/1.73m2 Normal >=60 [facility] Comment on above: Performed By: #### B MP #### [facility] [address] [place] [address] [address] Anisa Gomez EGFR-NON AF NIGERIEN 54 mL/min/1.73m2 Critically low >=60 [facility] Comment on above: Performed By: #### B MP #### [facility] [address] [place] [address] [address] Anisa Gomez Glucose [Mass/Vol] 102 mg/dL Normal 74-106 [facility] Comment on above: Performed By: #### B MP #### [facility] [address] [place] [address] [address] Anisa Gomez Potassium [Moles/Vol] 4.5 mmol/L Normal 3.5-5.1 [facility] Comment on above: Performed By: #### B MP #### [facility] [address] [place] [address] [address] Anisa Gomez Sodium [Moles/Vol] 141 mmol/L Normal 136-145 [facility] Comment on above: Performed By: #### B MP #### [facility] [address] [place] [address] [address] Anisa Gomez Urea nitrogen [Mass/Vol] 16.0 mg/dL Normal 7.0-18.0 [facility] Comment on above: Performed By: #### B MP #### [facility] [address] [place] [address] [address] Anisa Gomez Urea nitrogen/Creatinine [Mass ratio] 15.7 mg/mg Normal [facility] Comment on above: Performed By: #### B MP #### [facility] [address] [address] [address] CHEST WO CONon [...] is recommended for better evaluation. Normal [facility] HEMOGLOBINon 10-27-2022 Hemoglobin (Bld) [Mass/Vol] 14.5 g/dL Normal 12.0-16.0 [facility] Comment on above: Performed By: #### H GB ####[facility] [address] [place], [place] [address] Anisa Gomez CT LUNG CANCER SCREENINGon 0 [...] stability versus change. Electronically authenticated by: ROMEL ALONZO Date: 2022-07-24 17:20 Normal [facility] MAMM SCREEN 3D BRISSA CADon 07-09-2022 MAMM SCREEN 3D BRISSA CAD Patient: BHUPENDRA RUBI Exam Date: 07/09/2022 : 1950 Gender:F Ordering : SHAIKH Eddie HORAN . Admission #: [id number] Family : Order #: [id number] CLICK HERE TO VIEW EXAM RADIOLOGY REPORT [...] No Treatments None Family Cancers None LOCATION: [facility] BREAST COMPOSITION: Heterogeneously dense,which may obscure [...] LUMP SHOULD BE BIOPSIED. Dictated by: Romel Alonzo M.D. on 07/25/2022 at 08:48 Approved by: Romel Alonzo M.D. on 07/25/2022 at 08:51 Normal [facility] CBC AUTO DIFFon 05-07-2022 BASO # 0.1 103/ul Normal 0.0-0.1 [facility] Comment on above: Performed By: #### C BC #### [facility] Laboratory [address] [place] [address] Dr. Anisa Gomez Basophils/100 WBC (Bld) 0.7 % Normal 0.2-2.0 [facility] Comment on above: Performed By: #### C BC #### [facility] [address] [place] [address] Dr. Anisa Gomez EO # 0.1 103/ul Normal 0.0-0.7 [facility] Comment on above: Performed By: #### C BC #### [facility] [address] [place] [address] Dr. Anisa Gomez Eosinophils/100 WBC (Bld) 0.6 % Critically low 0.9-7.0 [facility] Comment on above: Performed By: #### C BC #### [facility] [address] [place] [address] Dr. Anisa Gomez Erythrocyte distribution width (RBC) [Ratio] 14.9 % Normal 11.0-15.0 [facility] Comment on above: Performed By: #### C BC #### [facility] [address] [place] [address] Dr. Anisa Gomez Hematocrit (Bld) [Volume fraction] 48.4 % Critically high 36.0-48.0 [facility] Comment on above: Performed By: #### C BC #### [facility] [address] [place] [address] Dr. Anisa Gomez Hemoglobin (Bld) [Mass/Vol] 15.6 g/dL Normal 12.0-16.0 [facility] Comment on above: Performed By: #### C BC #### [facility] [address] [place] [address] Dr. Anisa Gomez IG # 0.02 10e3/ul Normal 0.00-0.03 [facility] Comment on above: Performed By: #### C BC #### [facility] [address] [place] [address] Dr. Anisa Gomez IG % 0.2 % Normal 0.0-0.5 [facility] Comment on above: Performed By: #### C BC #### [facility] [address] [place] [address] Dr. Anisa Gomez LYMPH # 2.9 103/ul Normal 1.2-3.8 [facility] Comment on above: Performed By: #### C BC #### [facility] [address] [place] [address] Dr. Anisa Gomez Lymphocytes/100 WBC (Bld) 28.6 % Normal 20.5-60.0 [facility] Comment on above: Performed By: #### C BC #### [facility] [address] [place] [address] Dr. Anisa Gomez MANUAL DIFF REQ NO Normal [facility] Comment on above: Performed By: #### C BC #### [facility] [address] [place] [address] Dr. Anisa Gomez MCH (RBC) [Entitic mass] 29.2 pg Normal 26.7-34.0 [facility] Comment on above: Performed By: #### C BC #### [facility] [address] [place] [address] Dr. Anisa Gomez MCHC (RBC) [Mass/Vol] 32.2 g/dL Normal 29.9-35.2 [facility] Comment on above: Performed By: #### C BC #### [facility] [address] [place] [address] Dr. Anisa Gomez MCV (RBC) [Entitic vol] 90.5 fL Normal 81.0-99.0 [facility] Comment on above: Performed By: #### C BC #### [facility] [address] [place] [address] Dr. Anisa Gomez MONO # 1.0 103/ul Critically high 0.3-0.8 [facility] Comment on above: Performed By: #### C BC #### [facility] [address] [place] [address] Dr. Anisa Gomez Monocytes/100 WBC (Bld) 9.5 % Normal 1.7-12.0 [facility] Comment on above: Performed By: #### C BC #### [facility] [address] [place] [address] Dr. Anisa Gomez NEUT # 6.2 103/ul Normal 1.4-6.5 [facility] Comment on above: Performed By: #### C BC #### [facility] [address] [place] [address] Dr. Anisa Gomez Neutrophils/100 WBC (Bld) 60.4 % Normal 43.0-75.0 [facility] Comment on above: Performed By: #### C BC #### [facility] [address] [place] [address] Dr. Anisa Gomez Platelet mean volume (Bld) [Entitic vol] 10.1 fL Normal 9.5-13.5 [facility] Comment on above: Performed By: #### C BC #### [facility] [address] [place] [address] Dr. Anisa Gomez PLT 403 103/ul Normal 150-450 [facility] Comment on above: Performed By: #### C BC #### [facility] [address] [place] [address] Dr. Anisa Gomez RBC 5.35 106/ul Normal 4.20-5.40 [facility] Comment on above: Performed By: #### C BC #### [facility] [address] [place] [address] Dr. Anisa Gomez WBC 10.2 103/ul Normal 4.0-11.0 [facility] Comment on above: Performed By: #### C BC #### [facility] [address] [place], [place] [address] Dr. Anisa Gomez LIPID PROFILEon 05-07-2022 CHOL-HDL RATIO NORM SEE BELOW Normal [facility] Comment on above: Result Comment: 3.3 - 4.4 LOW RISK 4.4 - 7.1 AVERAGE RISK 7.1 - 11.0 MODERATE RISK >11.0 HIGH RISK Performed By: #### L IPID, CMP ####[facility] [id number] [place] [id number]. Anisa Gomez Cholesterol [Mass/Vol] 242 mg/dL Critically high <=200 [facility] Comment on above: Performed By: #### L IPID, CMP ####[facility] [id number] [place] [address]Dr. Anisa Gomez Cholesterol in HDL [Mass/Vol] 49 mg/dL Normal 40-60 [facility] Comment on above: Performed By: #### L IPID, CMP ####[facility] [id number] [place] [address]Dr. Anisa Gomez Cholesterol in LDL [Mass/Vol] 148.4 mg/dL Normal [facility] Comment on above: Performed By: #### L IPID, CMP ####[facility] [id number] [place] [id number]. Anisa Gomez Cholesterol.total/Choles terol in HDL [Mass ratio] 4.9 {ratio} Normal [facility] Comment on above: Performed By: #### L IPID, CMP ####[facility] [id number] [place] [id number]. Anisa Gomez HDL NORMAL > or = 60 mg/dl - LO W CARDIOVASCULAR RISK <40 mg/dl - HIGH CARDIOVASCULAR RISK Normal [facility] Comment on above: Performed By: #### L IPID, CMP ####[facility] [id number] [place] [address]Dr. Anisa Gomez LDL CALC NORMAL SEE BELOW Normal [facility] Comment on above: Result Comment: <100 mg/dl OPTIMAL 100 - 129 mg/dl NEAR OR ABOVE OPTIMAL 130 - 159 mg/dl BORDERLINE HIGH 160 - 189 mg/dl HIGH >190 mg/dl VERY HIGH Performed By: #### L IPID, CMP ####[facility] [id number] [place] [address]Dr. Anisa Gomez Triglyceride [Mass/Vol] 223 mg/dL Critically high <=150 [facility] Comment on above: Performed By: #### L IPID, CMP ####[facility] [id number] [place] [address]Dr. Anisa Gomez VLDL CALC 44.6 mg/dL Normal [facility] Comment on above: Performed By: #### L IPID, CMP ####[facility] [address] [place], [place] [address]Dr. Anisa Gomez PROF 14(COMP METB)on 022 Albumin [Mass/Vol] 3.6 g/dL Normal 3.4-5.0 [facility] Comment on above: Performed By: #### L IPID, CMP ####[facility] [address] [place], [place] [address]Dr. Anisa Gomez Albumin/Globulin [Mass ratio] 1.0 {ratio} Normal [facility] Comment on above: Performed By: #### L IPID, CMP ####[facility] [address] [place], [place] [address]Dr. Anisa Gomez ALP [Catalytic activity/Vol] 95 U/L Normal 46-116 [facility] Comment on above: Performed By: #### L IPID, CMP ####[facility] [address] [place], [place] [address]Dr. Anisa Gomez ALT [Catalytic activity/Vol] 21 U/L Normal 14-59 [facility] Comment on above: Performed By: #### L IPID, CMP ####[facility] [address] [place], [place] [address]Dr. Anisa Gomez Anion gap [Moles/Vol] 6.3 mmol/L Normal [facility] Comment on above: Performed By: #### L IPID, CMP ####[facility] [address] [place], [place] [address]Dr. Anisa Gomez AST [Catalytic activity/Vol] 15 U/L Normal 15-37 [facility] Comment on above: Performed By: #### L IPID, CMP ####[facility] [address] [place], [place] [address]Dr. Anisa Gomez Bilirubin [Mass/Vol] 0.5 mg/dL Normal 0.2-1.0 [facility] Comment on above: Performed By: #### L IPID, CMP ####[facility] [address] [place], [place] [address]Dr. Anisa Gomez Calcium [Mass/Vol] 9.1 mg/dL Normal 8.5-10.1 [facility] Comment on above: Performed By: #### L IPID, CMP ####[facility] [address] [place], [place] [address]Dr. Anisa Gomez Chloride [Moles/Vol] 104 mmol/L Normal 98-107 [facility] Comment on above: Performed By: #### L IPID, CMP ####[facility] [address] [place], [place] [address]Dr. Anisa Gomez CO2 [Moles/Vol] 33.4 mmol/L Critically high 21.0-32.0 [facility] Comment on above: Performed By: #### L IPID, CMP ####[facility] [address] [place], [place] [address]Dr. Ansia Jason Creatinine [Mass/Vol] 0.90 mg/dL Normal 0.55-1.02 [facility] Comment on above: Performed By: #### L IPID, CMP ####[facility] [address] [place], [place] [address]Dr. Anisa Gomez EGFR-AF NIGERIEN >60 Normal >=60 [facility] Comment on above: Performed By: #### L IPID, CMP ####[facility] [address] [place], [place] [address]Dr. Anisa Gomez EGFR-NON AF NIGERIEN >60 Normal >=60 [facility] Comment on above: Performed By: #### L IPID, CMP ####[facility] [address] [place], [place] [address]Dr. Anisa Gomez Globulin (S) [Mass/Vol] 3.7 g/dL Normal T [facility] Comment on above: Performed By: #### L IPID, CMP ####[facility] [id number] [place] [address]Dr. Anisa Gomez Glucose [Mass/Vol] 67 mg/dL Critically low 74-106 [facility] Comment on above: Performed By: #### L IPID, CMP ####[facility] [address] [place] [address]Dr. Anisa Jason Potassium [Moles/Vol] 3.7 mmol/L Normal 3.5-5.1 [facility] Comment on above: Performed By: #### L IPID, CMP ####[facility] [address] [place], [place] [address]Dr. Anisa Gomez Protein [Mass/Vol] 7.3 g/dL Normal 6.4-8.2 [facility] Comment on above: Performed By: #### L IPID, CMP ####[facility] [address] [place], [place] [address]Dr. Cherryann Gomez Sodium [Moles/Vol] 140 mmol/L Normal 136-145 [facility] Comment on above: Performed By: #### L IPID, CMP ####[facility] [address] [place], [place] [address]Dr. Anisa Jason Urea nitrogen [Mass/Vol] 13.0 mg/dL Normal 7.0-18.0 [facility] Comment on above: Performed By: #### L IPID, CMP ####[facility] [id number] [place] [address]Dr. Cherryann Gomez Urea nitrogen/Creatinine [Mass ratio] 14.4 mg/mg Normal [facility] Comment on above: Performed By: #### L IPID, CMP ####[facility] [address] [place] [address]Dr. Cherryann Gomez UA RANDOM W/MICROSCOPICon BACTERIA NONE SEEN Normal NONE SEEN [facility] Comment on above: Performed By: #### U AMIC #### [facility] [address] [place] [address] [address] Anisa Gomez Bilirubin Ql (U) Negative Normal NEGATIVE [facility] Comment on above: Performed By: #### U AMIC #### [facility] [address] [place] [address] [address] Anisa Gomez CAST NONE SEEN Normal NONE SEEN [facility] Comment on above: Performed By: #### U AMIC #### [facility] [address] [place] [address] [address] Anisa Gomez Clarity (U) CLEAR Normal CLEAR [facility] Comment on above: Performed By: #### U AMIC #### [facility] [address] [place] [address] [address] Anisa Gomez Color (U) YELLOW Normal YELLOW [facility] Comment on above: Performed By: #### U AMIC #### [facility] [address] [place] [address] Dr. Anisa Gomez Crystals LM Nom (Urine sed) NONE SEEN Normal NONE SEEN [facility] Comment on above: Performed By: #### U AMIC #### [facility] [address] [place] [address] Dr. Anisa Gomez Epithelial cells LM Ql (Urine sed) RARE Normal NONE SEEN /RARE [facility] Comment on above: Performed By: #### U AMIC #### [facility] [address] [place] [address] Dr. Anisa Gomez Glucose Ql (U) Negative Normal NEGATIVE [facility] Comment on above: Performed By: #### U AMIC #### [facility] [address] [place] [address] Dr. Anisa Gomez Hemoglobin Ql (U) Negative Normal NEGATIVE [facility] Comment on above: Performed By: #### U AMIC #### [facility] [address] [place] [address] Dr. Anisa Gomez Ketones Ql (U) Negative Normal NEGATIVE [facility] Comment on above: Performed By: #### U AMIC #### [facility] [address] [place] [address] Dr. Anisa Gomez LEUKOCYTES Negative Normal NEGATIVE [facility] Comment on above: Performed By: #### U AMIC #### [facility] [address] [place] [address] [address] Anisa Gomez MUCOUS NONE SEEN Normal NONE SEEN [facility] Comment on above: Performed By: #### U AMIC #### [facility] [address] [place] [address] Dr. Anisa Gomez Nitrite Ql (U) Negative Normal NEGATIVE [facility] Comment on above: Performed By: #### U AMIC #### [facility] [address] [place] [address] Dr. Anisa Gomez pH (U) 7.0 [pH] Normal 5-9 [facility] Comment on above: Performed By: #### U AMIC #### [facility] [address] [place] [address] Dr. Anisa Gomez RBC 0-2 Normal 0-2 [facility] Comment on above: Performed By: #### U AMIC #### [facility] [address] [place] [address] Dr. Anisa Gomez SPEC GRAVITY 1.010 Normal 1.005-<=1. 025 [facility] Comment on above: Performed By: #### U AMIC #### [facility] [address] [place] [address] Dr. Anisa Gomez UA PROTEIN Negative Normal NEGATIVE/ TRACE [facility] Comment on above: Performed By: #### U AMIC #### [facility] [address] [place] [address] Dr. Anisa Gomez Urobilinogen Qn (U) 0.2 {Agustin'U}/dL Normal 0.2 - 1. 0 [facility] Comment on above: Performed By: #### U AMIC #### [facility] [address] [place] [address] Dr. Anisa Gomez WBC 0-2 Abnormal NONE SEEN [facility] Comment on above: Performed By: #### U AMIC #### [facility] [address] [place] [address] Dr. Anisa Gomez Vital Signs Date Time Vital Sign Value Performing Clinician Facility 05-11-2024 14:25-0400 Body height 157.48 cm MD Shaikh Horan Work Phone: [facility] 05-11-2024 14:25-0400 Body mass index (BMI) [Ratio] 28.5 kg/m2 MD Shaikh Horan Work Phone: [facility] 05-11-2024 14:25-0400 Body temperature 97.8 [degF] MD Shaikh Horan Work Phone: [facility] 05-11-2024 14:25-0400 Body weight 70.76 kg MD Shaikh Horan Work Phone: [facility] 05-11-2024 14:25-0400 Diastolic blood pressure 78 mm[Hg] MD Shaikh Horan Work Phone: [facility] 05-11-2024 14:25-0400 Heart rate 89 /min MD Shaikh Horan Work Phone: [facility] 05-11-2024 14:25-0400 Respiratory rate 16 /min MD Shaikh Horan Work Phone: [facility] 05-11-2024 14:25-0400 SaO2% (BldA) [Mass fraction] 95 % MD Shaikh Horan Work Phone: [facility] 05-11-2024 14:25-0400 Systolic blood pressure 134 mm[Hg] MD Shaikh Horan Work Phone: [facility] 05-10-2024 14:01-0400 Body height 157.5 cm Javier Villanueva DO Work Phone: [facility] 05-10-2024 14:01-0400 Body mass index (BMI) [Ratio] 27.62 kg/m2 Javier Villanueva DO Work Phone: [facility] 05-10-2024 14:01-0400 Body weight 68.49 kg Javier Villanueva DO Work Phone: [facility] 05-10-2024 14:01-0400 Diastolic blood pressure 90 mm[Hg] Javier Villanueva DO Work Phone: [facility] 05-10-2024 14:01-0400 Systolic blood pressure 130 mm[Hg] Javier Villanueva DO Work Phone: [facility] 03-25-2024 11:45-0400 Diastolic blood pressure 90 mm[Hg] MD Shaikh Horan Work Phone: [facility] 03-25-2024 11:45-0400 Heart rate 85 /min MD Shaikh Horan Work Phone: [facility] 03-25-2024 11:45-0400 Respiratory rate 20 /min MD Shaikh Horan Work Phone: [facility] 03-25-2024 11:45-0400 SaO2% (BldA) [Mass fraction] 95 % MD Shaikh Horan Work Phone: [facility] 03-25-2024 11:45-0400 Systolic blood pressure 152 mm[Hg] MD Shaikh Horan Work Phone: [facility] 03-25-2024 10:06-0400 Body height 157.48 cm MD Shaikh Horan Work Phone: [facility] 03-25-2024 10:06-0400 Body weight 65.77 kg MD Shaikh Horan Work Phone: [facility] 12-30-2023 09:35-0400 Body height 157.48 cm MD Shaikh Horan Work Phone: [facility] 12-30-2023 09:35-0400 Body mass index (BMI) [Ratio] 27.4 kg/m2 MD Shaikh Horan Work Phone: [facility] 12-30-2023 09:35-0400 Body temperature 97.3 [degF] MD Shaikh Horan Work Phone: [facility] 12-30-2023 09:35-0400 Body weight 68.03 kg MD Shaikh Horan Work Phone: [facility] 12-30-2023 09:35-0400 Diastolic blood pressure 50 mm[Hg] MD Shaikh Horan Work Phone: [facility] 12-30-2023 09:35-0400 Heart rate 106 /min MD Shaikh Horan Work Phone: [facility] 12-30-2023 09:35-0400 Respiratory rate 18 /min MD Shaikh Horan Work Phone: [facility] 12-30-2023 09:35-0400 SaO2% (BldA) [Mass fraction] 85 % MD Shaikh Horan Work Phone: [facility] 12-30-2023 09:35-0400 Systolic blood pressure 76 mm[Hg] MD Shaikh Horan Work Phone: [facility] 12-27-2023 15:46-0400 Diastolic blood pressure 57 mm[Hg] MD Shaikh Horan Work Phone: [facility] 12-27-2023 15:46-0400 Heart rate 65 /min MD Shaikh Horan Work Phone: [facility] 12-27-2023 15:46-0400 Respiratory rate 20 /min MD Shaikh Horan Work Phone: [facility] 12-27-2023 15:46-0400 Systolic blood pressure 112 mm[Hg] MD Shaikh Horan Work Phone: [facility] 12-27-2023 14:59-0400 Inhaled oxygen flow rate 2 L/min MD Shaikh Horan Work Phone: [facility] 12-27-2023 14:59-0400 SaO2% (BldA) [Mass fraction] 92 % MD Shaikh Horan Work Phone: [facility] 12-27-2023 11:20-0400 Body temperature 97.7 [degF] MD Shaikh Horan Work Phone: [facility] 12-27-2023 10:48-0400 Body height 157.48 cm MD Shaikh Horan Work Phone: [facility] 12-27-2023 10:48-0400 Body weight 70.8 kg MD Shaikh Horan Work Phone: [facility] 03-25-2023 10:00-0400 Body height 157.48 cm Nigel Valladares Other [facility] Other 03-25-2023 10:00-0400 Body mass index (BMI) [Ratio] 27.43 kg/m2 Nigel Valladares Other [facility] Other 03-25-2023 10:00-0400 Body temperature 97.2 [degF] Nigel Valladares Other [facility] Other 03-25-2023 10:00-0400 Body weight 68.04 kg Nigel Valladares Other [facility] Other 03-25-2023 10:00-0400 Diastolic blood pressure 82 mm[Hg] Nigel Valladares Other [facility] Other 03-25-2023 10:00-0400 SaO2% (BldA) [Mass fraction] 91 % Nigel Valladares Other [facility] Other 03-25-2023 10:00-0400 Systolic blood pressure 158 mm[Hg] Nigel Valladares Other [facility] Other 02-09-2023 11:00-0400 Body height 157.48 cm Cherelle Singhdylan Other [facility] Other 02-09-2023 11:00-0400 Body mass index (BMI) [Ratio] 27.43 kg/m2 Cherelle Michele Other [facility] Other 02-09-2023 11:00-0400 Body temperature 97.6 [degF] Cherelle Michele Other [facility] Other 02-09-2023 11:00-0400 Body weight 68.04 kg Cherelle Singhdylan Other [facility] Other 02-09-2023 11:00-0400 Diastolic blood pressure 74 mm[Hg] Cherelle Michele Other [facility] Other 02-09-2023 11:00-0400 SaO2% (BldA) [Mass fraction] 92 % Cherelle Michele Other [facility] Other 02-09-2023 11:00-0400 Systolic blood pressure 122 mm[Hg] Cherelle Bautista Other [facility] Other 12-24-2022 10:00-0400 Diastolic blood pressure 86 mm[Hg] Brigette Martini [facility] 12-24-2022 10:00-0400 Mean blood pressure 106 mm[Hg] Brigette Esparzametz [facility] 12-24-2022 10:00-0400 Systolic blood pressure 146 mm[Hg] Brigette Esparzametz [facility] 12-24-2022 09:57-0400 Blood Pressure Location Brigetteanju EsparzaLianet [facility] 12-24-2022 09:57-0400 Body temperature 97.52 [degF] Brigette Martini [facility] 12-24-2022 09:57-0400 Diastolic blood pressure 82 mm[Hg] Brigette Esparzametz [facility] 12-24-2022 09:57-0400 Heart rate 86 /min Brigette Martini [facility] 12-24-2022 09:57-0400 Systolic blood pressure 150 mm[Hg] Brigette Martini [facility] Encounters Encounter Date Encounter Type Care Provider Facility Start: 05-23-2024 End: 05-23-2024 Bamboo flowsheet Chris Singh [employer] Work Phone: [facility] Start: 05-23-2024 End: 05-23-2024 Bamboo flowsheet Chris Singh [employer] Work Phone: [facility] Start: 05-23-2024 End: 05-23-2024 ambulatory CHRIS SINGH Not Available Start: 05-18-2024 End: 05-18-2024 ambulatory [facility] Start: 05-18-2024 End: 05-18-2024 ambulatory [facility] Start: 05-11-2024 End: 05-11-2024 Patient encounter procedure MD [facility] Work [facility]: Start: 05-11-2024 End: 05-11-2024 ambulatory MD Shaikh Horan Work Phone: [facility] Work Phone: Start: 05-10-2024 End: 05-10-2024 Office outpatient new 45 minutes Javier Villanueva DO Work Phone: [facility] Comment on above: Carcinoma in situ of ascending colon Start: 05-10-2024 End: 05-10-2024 ambulatory JAVIER VILLANUEVA Not Available Start: 05-02-2024 End: 05-02-2024 Refill Chris Singh [employer] Work Phone: [facility] Comment on above: Gastroesophageal ref lux disease without esophagitis Start: 04-28-2024 ambulatory DIANA escobar of [facility] Start: 04-21-2024 End: 04-21-2024 Patient encounter procedure MD Shaikh Horan Work Phone: [facility] [place] Work Phone: Start: 04-21-2024 End: 04-21-2024 ambulatory MD Shaikh Horan Work Phone: [facility] Work Phone: Start: 04-06-2024 ambulatory MD Shaikh Mackey ad Work Phone: [facility] Work Phone: Start: 04-06-2024 Non-patient / Non-visit MD Reynaldo Horan Work Phone: [facility] Work Phone: Start: 03-25-2024 Non-patient / Non-visit MD Reynaldo Horan [facility] Work Phone: Start: 03-25-2024 End: 03-25-2024 Admission to same day surgery center MD Shaikh Horan Work Phone: [facility] Work Phone: Start: 03-25-2024 End: 03-25-2024 ambulatory MD Shaikh Horan Work Phone: [facility] Work Phone: Start: 03-24-2024 End: 03-24-2024 ambulatory CHRIS SINGH Not Available Start: 03-23-2024 End: 03-23-2024 ambulatory [facility] Start: 03-09-2024 End: 03-09-2024 ambulatory MD Shaikh Horan Work Phone: [facility] Work Phone: Start: 03-09-2024 End: 03-09-2024 Departed Referred MD Shaikh Horan Work Phone: [facility] Start: 03-01-2024 End: 03-01-2024 ambulatory [facility] Facility:[facility] Start: 03-01-2024 End: 03-01-2024 Patient encounter procedure Arden De Leon [facility] Start: 02-23-2024 Non-patient / Non-visit MD Reynaldo Horan Work Phone: [facility] Work Phone: Start: 02-22-2024 End: 02-22-2024 ambulatory CHRIS SINGH Not Available Start: 02-19-2024 [facility] Start: 01-04-2024 End: 01-04-2024 ambulatory SHAIKH AUNG Not Available Start: 12-30-2023 End: 12-30-2023 Patient encounter procedure MD Shaikh Horan Work Phone: [facility] Vascular Surgery Work Phone: Start: 12-30-2023 End: 12-30-2023 ambulatory MD Shaikh Horan Work Phone: [facility] Work Phone: Start: 12-27-2023 End: 12-27-2023 Emergency department patient visit MD Shaikh Horan Work Phone: [facility] Work Phone: Start: 11-09-2023 End: 11-09-2023 ambulatory PERCYRobertoGERMÁN Not Available Start: 10-12-2023 End: 10-12-2023 ambulatory HURTADO AUNG Not Available Start: 08-20-2023 Orders Only Shaikh Aung FARFAN Work Phone: [facility] Comment on above: RLS (restless legs s yndrome) (Primary Dx); Moderate COPD (chronic obstructive pulmonary disease) ([facility]) Start: 07-09-2023 Patient encounter procedure Shaikh Aung FARFAN Work Phone: [facility] Start: 07-09-2023 End: 07-09-2023 ambulatory HURTADO AUNG Not Available Start: 03-25-2023 End: 03-25-2023 ambulatory Nigel Valladares Other [facility] Other Start: 03-25-2023 Office outpatient vi sit 15 minutes Nigel Valladares [facility] Vascular Surgery Start: 02-09-2023 End: 02-09-2023 ambulatory Cherelle Bautista Other [facility] Other Start: 02-09-2023 [facility] visit new patient Cherelle grissom [facility] Start: 01-07-2023 End: 01-07-2023 Patient encounter procedure Brigette Martini [facility] Start: 01-01-2023 End: 01-01-2023 Patient encounter procedure Brigette Martini [facility] Start: 12-29-2022 End: 12-29-2022 Patient encounter procedure Brigette Martini [facility] Start: 12-24-2022 End: 12-24-2022 Patient encounter procedure Brigette Martini [facility] Start: 12-24-2022 End: 02-19-2023 Pre-admission assessment Jorge MERCEDES [facility] Start: 12-24-2022 End: 12-24-2022 Patient encounter procedure Brigette Martini [facility] Start: 11-11-2022 End: 11-11-2022 ambulatory [...] Start: 06-09-2022 End: 06-09-2022 Patient encounter procedure Armnado WESTON [facility] Start: 05-07-2022 End: 05-08-2022 ambulatory SHAIKH Anju HORAN Facility:[facility]1 Procedures Date Procedure Procedure Detail Performing Clinician Start: 04-21-2024 Carcinoembryonic antigen cea Shaikh Aung Comment on above: Result Comment: Baljiti slime tumor marker results determined by assays using different manufacturers or methods may not be comparable. [facility] human services program specialist and method: Avectra UNICNeoCodex DXI, 2 SITE IMMUNOENZYMATIC ?SANDWICH? ASSAY. PERFORMED BY: [place] [address] PATHOLOGIST CREATIVE STRATEGIST JENNIFER ALANIZ M.D. Performed By: #### C EA #### [address] Start: 04-21-2024 Computed tomography of abdomen and pelvis with contrast MD Shaikh Horan Work Phone: Start: 04-21-2024 CT of thorax with contrast MD Shaikh Horan Work Phone: Start: 03-25-2024 End: 03-25-2024 Colonoscopy MD Shaikh Horan Work Phone: Start: 12-30-2023 US scan of aorta MD Reynaldo Horan Work Phone: Start: 12-27-2023 Blood culture for ba cteria, including anaerobic screen MD Shaikh Horan Work Phone: Start: 12-27-2023 Screening for occult blood in feces MD Shaikh Hroan Work Phone: Start: 12-27-2023 Stool Occult Blood (BAILEE) MD Shaikh Horan Work Phone: Start: 12-27-2023 Urine culture MD Shaikh Horan Work Phone: Start: 12-27-2023 Antibody screen Shaikh Aung Comment on above: Result Comment: PERF ORMED BY: [facility] [place] [address] PATHOLOGIST CREATIVE STRATEGIST JENNIFER ALANIZ M.D. Start: 12-27-2023 CT angiography [...] Treatment Date Care Activity Detail Author Start: 03-25-2034 Screening for malign ant neoplasm of colon [facility] Start: 04-12-2026 Screening for malign ant neoplasm of colon [facility] Start: 08-01-2024 End: 08-01-2024 Patient encounter procedure 08/01/2024 10:30 AM EST Office Visit [facility] [address] [place] [address] Chris Singh NP [address] [place] [address] [facility] Start: 07-09-2024 Medicare Annual Well ness (AWV) Medicare Annual Wellness (AWV) [facility] Start: 06-23-2024 End: 06-23-2024 Patient encounter procedure 06/23/2024 10:00 AM EST Office Visit [facility] [address] [place] [id number] Chris Singh, SENIOR ORACLE ADF DEVELOPER [address] [place] [address] [facility] Start: 05-31-2024 End: 05-31-2024 Patient encounter procedure 05/31/2024 10:30 AM EST Office Visit [facility] [address] [place] [id number] Javier Villanueva, DO [address] [place] [address] [facility] Start: 05-03-2024 End: 05-03-2024 Patient encounter procedure 05/03/2024 2:00 PM EDT Consult [facility] [address] [place] [phone] Javier Villanueva, DO [address] [place] [address] [facility] Start: 04-06-2024 Patient referral [facility] Work Phone: Start: 03-25-2024 [facility] Start: 03-13-2024 Influenza vaccination Influenz a Vaccine (#1) [facility] Start: 01-10-2024 Influenza vaccination Influenz a Vaccine (#1) [facility] Comment on above: Postponed from 03/13 (Patient Refused) Start: 12-27-2023 Bacteria identified in Blood by Culture [facility] Start: 12-27-2023 Bacteria identified in Urine by Culture [facility] Start: 12-27-2023 Blood culture for bacteria, including anaerobic screen Blood Culture [facility] Start: 10-08-2023 End: 10-08-2023 Patient encounter procedure 10/08/2023 2:00 PM EDT Office Visit [facility] [address] [place] [address] Shaikh Horan MD [address] [place] [address] [facility] Start: 07-03-2023 Screening for malign ant neoplasm of breast Mammogram [facility] Start: 1950 Screening for malign ant neoplasm of colon [facility] Patient Education [facility] Work Phone: Patient referral [facility] Work Phone: US Thoracic and abdominal aorta [facility] Immunizations Immunization Date Immunization Notes Care Provider Fa cility 07-09-2022 pneumococcal 20-ananya nt conjugate vaccine Brigette Martini [facility] 07-03-2022 pneumococcal conjuga te vaccine, 13 valent Brigette Martini [facility] Payers Date Payer Category Payer Medicare (Managed Care) RAMA Wilburn [employer] [id number] 2023 Private Health Insurance [id number] 2023 Private Health Insurance [id number] 2022 Unknown [employer] [id number] 2022-Present [address] [place] JEAN [address] [id number] 2020 Unknown [id number] 1959 Self-pay 1950 Unknown [id number] 2.16.840.1.119514.3.579. 2.593 1952 Unknown [id number] 2.16.840.1.125539.3.579. 2.593 1952 Unknown [id number] 2.16.840.1.423526.3.579. 2.593 1952 Unknown [id number] 2.16.840.1.076197.3.579. 2.593 1952 Unknown [id number] 2.16.840.1.430666.3.579. 2.593 1952 Unknown [id number] 2.16.840.1.117969.3.579. 2.593 1952 Unknown [id number] 2.16.840.1.134250.3.579. 2.593 1952 Unknown [id number] 2.16.840.1.148391.3.579. 2.593 1952 Unknown [id number] 2.16.840.1.825879.3.579. 2.727 1952 Unknown [id number] 2.16.840.1.686794.3.579. 2.727 1952 Unknown [id number] 2.16.840.1.003937.3.579. 2.1259 1952 Unknown [id number] 2.16.840.1.399873.3.579. 2.1259 1952 Unknown [id number] 2.16.840.1.932925.3.579. 2.1259 1952 Unknown [id number] 2.16.840.1.121491.3.579. 2.1259 1952 Unknown [id number] 2.16.840.1.726238.3.579. 2.1259 1952 Unknown [id number] 2.16.840.1.040795.3.579. 2.1259 1952 Unknown [id number] 2.16.840.1.661574.3.579. 2.1259 1952 Unknown [id number] 2.16.840.1.230432.3.579. 2.1259 Medicare [employer] MCR PFFS [id number] Medicare Medicare [id number] Unknown [id number] 2.16.840.1.483378.3.579. 2.531 Unknown [id number] 2.16.840.1.563739.3.579. 2.531 Unknown [id number] 2.16.840.1.804116.3.579. 2.531 Unknown [id number] 2.16.840.1.230975.3.579. 2.531 Unknown [id number] 2.16.840.1.864766.3.579. 2.531 Unknown [id number] 2.16.840.1.172611.3.579. 2.531 Unknown [id number] 2.16.840.1.437835.3.579. 2.531 Social History Date Type Detail Facility Tobacco smoking status [facility] Start: 07-09-2023 End: 12-08-2023 Sex Assigned At Female [facility] Start: 12-24-2022 Tobacco smoking status Heavy t obacco smoker (finding) [facility] Tobacco smoking status Never [facility] Start: 07-09-2023 Tobacco smoking stat us [facility] Smokes tobacco daily [facility] End: 12-28-2023 History of tobacco use Cigarette Smoker [facility] Start: 07-09-2023 End: 12-08-2023 Cigarettes smoked current (pack per day) - Reported 1 [facility] Start: 07-09-2023 End: 01-04-2024 Tobacco use and exposure Smokeless tobacco non-user [facility] Start: 07-09-2023 End: 05-23-2024 Alcohol intake Lifetime non-drinker (finding) [facility] Start: 1950 Sex Assigned At Not on file [facility] Start: 1950 Sex Assigned At Female F [facility] Start: 12-27-2023 End: 12-28-2023 Tobacco smoking status NHIS Smoker (finding) [facility] Start: 01-04-2024 End: 03-25-2024 Tobacco smoking status [facility] Ex-smoker (finding) [facility] History of tobacco use Passive smoker [facility] Within the last year , have you been afraid of your partner or ex-partner? No [facility] Are you now , , , , never or living with a partner? [facility] How often to you hav e a drink containing alcohol? Never [facility] How hard is it for y ou to pay for the very basics like food, housing, medical care, and heating Somewhat hard [facility] Do you feel stress - tense, restless, nervous, or anxious, or unable to sleep at night because your mind is troubled all the time - these days [OSQ] Not at all [facility] (I/We) worried whesandra er (my/our) food would run out before (I/we) got money to buy more. Never true [facility] Goals Date Patient Goal Desired Activity /State Functional Status Date Assessment Result Facility 12-24-2022 Functional Status N/A [facility] Clinical Notes 06-09-2022 to 05-20-2024 Javier Villanueva, - 05/10/2024 2:30 PM EDT Note Date & Type Note Facility 05-20-2024 Note Addendum created 03/05 1439 by Marilia Pennington MD Intraprocedure Meds edited [facility] 05-18-2024 Note Patient: Bhupendra roberts Procedure Summary Date: 05/18/24 Room / Location: [facility] Main Operating Room Anesthesia Start: 1251 Anesthesia Stop: 1422 Procedure: BRONCHOSCOPY Diagnosis: Lung nodule Scheduled Providers: Diana Warren MD; Micky Hilliard MD Responsible Provider: Micky Hilliard MD Anesthesia Type: general ASA Status: 3 Anesthesia Type: general Vitals Value Taken Time BP 162/82 05/18/24 1500 Temp 36 ???C (96.8 ???F) 05/18/24 1418 Pulse 97 05/18/24 1500 Resp 16 05/18/24 1500 SpO2 95 % 05/18/24 1500 Anesthesia Post Evaluation Patient location during evaluation: PACU Patient participation: complete - patient participated Level of consciousness: awake and alert Pain management: adequate Airway patency: patent Cardiovascular status: acceptable Respiratory status: acceptable and nonlabored ventilation Hydration status: acceptable Patient is hemodynamically stable and is able to be discharged from PACU per anesthesia protocol. No notable events documented. [facility] 05-18-2024 Note Patient's significan t other at bedside. He states he was not updated post procedure by Dr. Warren or his fellow Dr. Hamlin. RN notified physician of family's request for update and chest xray was completed, but needs to be read prior to discharge. [facility] 05-18-2024 Note Airway Date/Time: 05/18/2024 12:57 PM Urgency: elective General Information and Staff Patient location during procedure: OR Anesthesiologist: Micky Hilliard MD Resident/METAL CASTING TRADES WORKER/CAA: Marilia Pennington MD Performed: resident/METAL CASTING TRADES WORKER/CAA Indications and Patient Condition Indications for airway management: anesthesia Spontaneous Ventilation: absent Sedation level: deep Preoxygenated: yes Mask difficulty assessment: 1 - vent by mask Final Airway Details Final airway type: endotracheal airway Successful airway: ETT Cuffed: yes Successful intubation technique: direct laryngoscopy Facilitating devices/methods: intubating stylet Endotracheal tube insertion site: oral Blade: Amato Blade size: #3 ETT size (mm): 8.5 Cormack-Lehane Classification: grade I - full view of glottis Placement verified by: chest auscultation and capnometry Measured from: lips ETT to lips (cm): 22 Number of attempts at approach: 1 Number of other approaches attempted: 0 [facility] 05-18-2024 Note Patient: Bhupendra roberts Procedure Information Date/Time: 05/18/24 1230 Scheduled providers: Diana Warren MD; Micky Hilliard MD Procedure: BRONCHOSCOPY Location: [facility] Main Operating Room Relevant Problems Anesthesia Denies anes issues or KARENA Cardio Denies CAD; can walk possibly 4 mets (+) Abdominal aortic aneurysm (AAA) 3.0 cm to 5.0 cm in diameter in female (CMS/HCC) Endo (within normal limits) GI (+) Gastroesophageal reflux disease /Renal Denies renal issues Neuro/Psych 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 Risks discussed including cardiopulmonary issues, CVA, AAA issues. Pt agrees to proceed.) The patient is not a current smoker. Patient did not smoke on day of procedure. Education provided regarding risk of obstructive sleep apnea. intravenous induction Postoperative administration of opioids is intended. Trial extubation is planned. Anesthetic plan and risks discussed with patient. Use of blood products discussed with patient who consented to blood products. Plan discussed with resident. Additional Equipment Requests [facility] 05-12-2024 Note Medications to take AM day of procedure with sips water only: PROTONIX USE BREZTRI INHALER, BRING RESCUE INHALER Medication Hold instructions: NSAIDs (Motrin,Aleve, Advil, Ibuprofen, Naproxen and Aspirin): 5-7 days prior to procedure Vitamins/Supplements: 5-7 days prior to procedure IF YOU ARE GOING HOME AFTER YOUR SURGERY OR PROCEDURE, FOR YOUR SAFETY, YOUR SURGERY WILL BE CANCELLED IF BOTH OF THE FOLLOWING ARE NOT AVAILABLE: An adult non cdl driver over the age of 18, that can receive information about your care after surgery, and drive you home. A responsible adult to stay with you for 24 hours in case of an emergency. Can be same as above. The highest risk of complications is within the first 24 hours after sedation/anesthesia. Nothing to eat or drink after midnight the night before surgery. This includes gum, candy, mints, and lozenges. No alcohol, marijuana, or tobacco products including vaping for 24 hours. Please brush your teeth; don't swallow the toothpaste or water. If you use dentures, wear them but do not use paste. Please leave any other removable dental hardware at home. Do not put in contact lenses. Do not wear perfume, make-up, nail jordanian, or lotions on the day of your surgery or procedure. Follow skin-prep/wipe instructions as below if required. Bring with you: *Insurance card *Photo ID *Medication list *Co-pay for visit/prescriptions If applicable: *Rescue inhalers *Green bracelet from lab *CPAP or BiPAP machine, if staying overnight *Any braces, splints, or equipment ordered preoperatively *Remote controls for implanted devices Leave at home: *Purse/Wallet/Andre- unless needed for co-pay *Cell phone (can leave with family/friend or place in locker if needed) *Jewelry (including piercings and wedding bands) *If not possible, ask the person who is waiting with you to keep them Children under the age of 12 will not be allowed into patient care areas. We will call you between 3pm and 4pm the day before your surgery to give you an arrival time. If you do not receive this call, have any questions, or need to make any changes, please call [phone]. Notify your surgeon if you develop any illness such as a cold, cough, fever, sore throat or vomiting between now and your surgery. Thank you for entrusting us with your care. [facility] Surgical Services Team [facility] 05-10-2024 History of Present illness Narrative Images from the original note were not included. Bhupendra Rubi 1950 Bhupendra Rubi is a 73 y.o. female presents with chief complaint of Consult (Colon polyp ref'd by Red) HPI: HPI Patient is not exactly sure why she is here. She was told that there might be something bad her colon and there needs to be a deeper look. Her family physician set her up with getting a repeat lung biopsy and repeat colonoscopy at the same time. She has not having any blood in the stool. She has not having any abdominal pain. She has not having any change in bowel habits. She is chronic constipation issues which she takes some kind of laxative tablet 4 daily. She did not have any problems with the colonoscopy. MEDICATIONS: ALLERGIES Current Outpatient Medications Medication Instructions albuterol HFA 90 mcg/act inhaler 2 puffs, Inhalation, Every 4 hours PRN atorvastatin (LIPITOR) 80 mg, Oral, Daily Hqdemos-Ylvdvphktds-Mgikaaourf (Breztri Aerosphere) 160-9-4.8 MCG/ACT aerosol 2 puffs, Inhalation, 2 times daily ezetimibe (ZETIA) 10 mg, Oral, Daily fenofibrate (TRICOR) 48 mg, Oral, Daily folic acid (FOLVITE) 1 mg, Oral, Daily gabapentin (NEURONTIN) 300 mg, Oral, 3 times daily linaCLOtide (LINZESS) 145 mcg, Oral, Daily before breakfast pantoprazole (PROTONIX) 40 mg, Oral, Daily before breakfast, Do not crush, chew, or split. rOPINIRole (REQUIP) 0.5 mg, Oral, Nightly traZODone (DESYREL) 100 mg, Oral, Nightly zolpidem (AMBIEN) 10 mg, Oral, Nightly PRN No Known Allergies PAST MEDICAL HISTORY: SOCIAL HISTORY SURGICAL HISTORY: Past Medical History: Diagnosis Date Abdominal pain in female Anxiety and depression (CMS/HCC) Centrilobular emphysema (CMS/HCC) Chronic cough Chronic idiopathic constipation chronic, ongoing for years now. Uses Miralax daily with no benefit. Associated bloating, abdominal discomfort. Scheduled for EG/colonosocpy. Chronic pain disorder Cigarette nicotine dependence with nicotine-induced disorder 1 PPD x 55 years as of 2022. COPD with emphysema (CMS/HCC) Mod obs lung disease with emphysema Chronic smoker. Currently using Trelegy but she ran out of i.t H/O: CVA (cerebrovascular accident) Previous CVA about 10 years ago Residual RUE weakness, numbness and mild dysarthria. Heart disease Heartburn HLD (hyperlipidemia) (CMS/HCC) On Lipitor 80 daily Hypertension (CMS/HCC) Infrarenal abdominal aortic aneurysm (AAA) without rupture (CMS/HCC) CT chest done in 11/02 by Tamera that showed AAA 2.3 cm with possible chronic dissection for which she was asked to go to ED for CTA abdomen/pelvis. On CTA abdomen - she was noted to have 3.4 cm AAA infra renal - no evidence of rupture or dissection Insomnia Has difficulty going to sleep and staying asleep. On trazodone but it does not help anymore. Leukocytosis Noted on CBC when she presented to ED 12/02. Multiple pulmonary nodules determined by computed tomography of lung Peripheral neuropathy Reports tingling/numbness in RLE and RUE since stroke. On gabapentin. Positive FIT (fecal immunochemical test) Never had Colonoscopy. Positive FIT 05/04 She was scheduled for it but it was cancelled by her for personal reasons. RLS (restless legs syndrome) Reports restless feeling at night, she has to constantly move her feet. Ongoing for many years. Involve both LE, mostly RLE Never been treated with dopamine agonists. On Gabapentin currently. Screening for lung cancer Current smoker, smokes one pack a day Has been smoking for over 40 years now Smoking Currently smoking. Smokes 1/2 pack now. Down from 1 PPD. PPD for over 40 years now. Urinary symptom or sign Hx of bladder prolapse, incontinence - had bladder lift for it - she reports that she continues to have urge and stress incontinence. She also reports pain on both flanks and suprapubic pain with polyuria x last 12 months. Denies hematuria, nausea/vomiting. Negative UA Social History Tobacco Use Smoking status: Former Current packs/day: 0.00 Average packs/day: 0.5 packs/day for 55.0 years (27.5 ttl pk-yrs) Types: Cigarettes Quit date: 12/28/2023 Years since quittin.3 Passive exposure: Current Smokeless tobacco: Never Vaping Use Vaping status: Never Used Substance Use Topics Alcohol use: Never Drug use: Never Past Surgical History: Procedure Laterality Date CHOLECYSTECTOMY COLONOSCOPY W/ POLYPECTOMY 03/25/2024 HYSTERECTOMY ROTATOR CUFF REPAIR Bilateral TUBAL LIGATION REVIEW OF SYMPTOMS: Review of Systems Constitutional: Negative for appetite change, fatigue and fever. HENT: Negative for trouble swallowing. Respiratory: Negative for cough and shortness of breath. Cardiovascular: Negative for chest pain. Gastrointestinal: Negative for abdominal pain. Genitourinary: Negative for hematuria. Musculoskeletal: Negative for back pain. Skin: Negative for wound. Neurological: Positive for weakness. Negative for seizures. OBJECTIVE: Visit Vitals BP 130/90 Ht 5' 2 Wt 151 lb BMI 27.62 kg/m Smoking Status Former BSA 1.73 m Physical Exam Constitutional: Appearance: Normal appearance. HENT: Head: Atraumatic. Eyes: General: No scleral icterus. Cardiovascular: Rate and Rhythm: Regular rhythm. Pulmonary: Effort: No respiratory distress. Abdominal: General: There is no distension. Tenderness: There is no abdominal tenderness. Skin: Findings: No bruising. Neurological: Mental Status: She is alert. Gait: Gait normal. ASSESSMENT AND PLAN: Assessment/Plan Diagnoses and all orders for this visit: Carcinoma in situ of ascending colon - Ambulatory referral to General Surgery Patient had colonoscopy with removal of polyp and ascending colon, this was read as high-grade dysplasia / Carcinoma in Situ. Pathology reads fragments of colonic mucosa with high-grade dysplasia: Can not rule out underlying invasive adenocarcinoma . I Communicated with her chief fundraising officer, he felt this was completely removed. I am sending her pathology to [facility] for 2nd opinion. Patient is having her lung mass worked up with a biopsy in [place] and is supposed to get a 2nd colonoscopy there for re-evaluation. I will see her back after the results of those, she also sees Oncology Dr. Russell tomorrow. If there is invasive cancer and this polyp that had been removed would recommend right colectomy. If there is no invasive cancer and this polyp seems to have been completely removed repeat colonosco in 6 months would be good option, I discussed that with Dr. Moon her chief fundraising officer. documented in this encounter [facility] 04-28-2024 Note Attestation signed by Diana Warren MD at 04/29/2024 8:53 AM Total time spent on day of encounter: 30 minutes Attending attestation: GC: I personally spoke with this patient via telephone on the day of the encounter, performed the vazquez portion(s) of the service and participated in the management and confirm the fellow's documentation. Physical examination was not performed and may limit some portions of the clinical encounter. Please note there may be an additional personal documentation from me. Pulmonary Clinic Visit Note Patient: Bhupendra Rubi Age: 73 y.o. : 1950 Account No.: [id number] Referring physician: Dr. Lundberg Chief complaint: Lung nodule HPI Date of phone call: 04/28/24 Chief Complaint: History of Present Illness: 73-year-old female seen with past medical history of centrilobular emphysema/COPD, chronic smoker, hypertension, lung nodule who was referred by Dr. Lundberg for evaluation of the lung nodule. Patient underwent a bronchoscopy with transbronchial biopsy on February 2024, patient had moderate bleeding episode after the endobronchial biopsies. Requiring epinephrine and tranexamic acid. Pathology returned nondiagnostic. For that reason patient was referred to us for further evaluation. Patient initially had CT scan on November 2022 which showed 0.4-0.6 cm left upper lobe nodule which has increased in size and following up CT scan on December 2023 which is 2.2 cm, PET scan on January 2024 FDG avid positive at SUV 21. Was referred to interventional radiology for tissue sampling and because of the location subscapular it was deferred. Transbronchial bronchoscopy in February 2024 nondiagnostic. Today patient feels relatively well. At her baseline. No recent ER visit or hospitalization. No recent worsening of her symptoms. She is currently on Brester inhaler along with albuterol. Does not use a blood thinner. Not on oxygen at home. She is former smoker with extensive history of smoking, quit 4 months ago. Used to smoke about 1 to 2 pack/day for more than 40 years. Patient has family history of lung cancer. Pmhx: COPD Family hx: lung cancer Total time spent in Medical Discussion including obtaining history from the patient, review of labs, tests with the patient, discussion of assessment and plan . The visit was initiated by the patient and conducted [id number]-[id number] with use of audio-only real time telephone communication between patient and provider for a virtual visit. Verbal consent to provide and bill this service was obtained on: 04/28/24 No signature was obtained due to the COVID-19 pandemic. Past Medical History: Diagnosis Date Anxiety with depression Centrilobular emphysema (CMS/HCC) GERD (gastroesophageal reflux disease) Hyperlipidemia Hypertension Infrarenal abdominal aortic aneurysm (AAA) without rupture (CMS/HCC) Mass of right parotid gland Multiple pulmonary nodules Past Surgical History: Procedure Laterality Date BRONCHOSCOPY 03/09/2024 CHOLECYSTECTOMY COLONOSCOPY HYSTERECTOMY LUNG BIOPSY 03/2024 ROTATOR CUFF REPAIR Bilateral TUBAL LIGATION Allergies: Patient has no known allergies. Prior to Admission medications Medication Sig Start Date End Date Taking? Authorizing Provider albuterol 90 mcg/actuation inhaler every 4 (four) hours. Yes Historical Provider, aspirin 81 mg EC tablet 1 (one) time each day at the same time. 12/27/23 Yes Historical Provider, atorvastatin (Lipitor) 80 mg tablet 1 (one) time each day at the same time. Yes Historical Provider, MD Rosario Tang 160-9-4.8 mcg/actuation HFA aerosol inhaler every 12 (twelve) hours. 03/02/24 Yes Historical Provider, gabapentin (Neurontin) 300 mg capsule 1 capsule 1 (one) time each day at the same time. Yes Historical Provider, pantoprazole (ProtoNix) 40 mg EC tablet Oral for 90 Days 11/25/23 Yes Historical Provider, traZODone (Desyrel) 100 mg tablet 1 (one) time each day at the same time. 06/09/22 Yes Historical Provider, Social history: reports that she has quit smoking. Her smoking use included cigarettes. She does not have any smokeless tobacco history on file. She reports that she does not currently use alcohol. She reports that she does not use drugs. Family History Problem Relation Name Age of Onset Lung cancer Mother Other (blood clots) Sister Review of Systems: CONSTITUTIONAL: no weight loss, no fever, no chills HEENT: no vision changes, no ear pain, no runny nose, no sore throat RESPIRATORY: no dyspnea, no cough, no wheeze, no sputum production CV: no chest pain, no palpitations, no syncope GI: no abdominal pain, no nausea, no vomiting, no diarrhea. MSK: no myalgia, no joint pain. SKIN: no rash, no pruritus. Physical examination (more content not included)... [facility] 03-25-2024 Procedure note [facility] 03-25-2023 Evaluation note Encounter Date Diagnosis Assessment [...] were addressed she understands agrees the plan. [facility] Other 07-31-2023 Evaluation note* Encounter Date Diagnosis Assessment Notes Treatment Notes Treatment Clinical Notes Jan, Abdominal aortic aneurysm (AAA) without rupture, unspecified part (ICD-10 - I71.40) We reviewed her abdominal CT imaging from outside facility at the [facility] which shows AAA 3.4 cm in greatest [...] her risk and is unmotivated to quit. [facility] Other 06-14-2023 Hospital Discharge instructions Patient Education [...] Follow these instructions at home: Medicines Take ynyp-fxj-zgijjdd and prescription medicines only as told by [...] Watch your condition for any changes. Take akip-fpw-bqrqhtj and prescription medicines only as told by [...] provider. Document Revised: 08/17/2020 Document Reviewed: 11/07/2019 [employer] Patient Education 2022 [employer]. Follow Up Care 12/15/2022 11:25:23 With:Brigette Martini CNP Address: When:1 month [facility] 11-28-2022 Hospital Discharge instructions Patient [...] fried and sweet foods. General instructions Take unso-hap-udefbiu and prescription medicines only as told by [...] 04/25/2010 Document Revised: 10/20/2019 Document Reviewed: 07/15/2018 [employer] Patient Education 2019 [employer] Follow Up Care 05/09/2022 11:00:12 With:TRISTA FARFAN, Armando Mckay, URL Address: [facility] [address], [place] [address]- When: Unknown [facility] evaluation + Plan note No data available for this section [facility] evaluation + Plan note Future Appointments Appointment Date:12/29/2022 10:30:00 AM Scheduled Provider: Location:.[facility] Appointment Type:US Abdominal/Pelvis (FT) Appointment Date:02/18/2023 08:15:00 AM Scheduled Provider: Location:[facility] Appointment Type:Surgery FT Future Scheduled Tests Radiology* US Abdomen, Limited 12/29/22 [facility] Evaluation + Plan note Future Appointments Appointment Date:02/18/2023 08:15:00 AM Scheduled Provider: Location:[facility] Future Appointments Appointment Date:01/07/2023 11:00:00 AM Scheduled Provider: Location:.[facility] Appointment Type:CT Abdomen (FT) Appointment Date:02/18/2023 08:15:00 AM Scheduled Provider: Location:[facility] Appointment Type:Surgery FT Future Scheduled Tests Radiology* CT Abdomen w/ Contrast [facility] Diagnosis RLS (restless legs syndrome)- Primary Restless legs syndrome (RLS) Moderate COPD (chronic obstructive pulmonary disease) ([facility]) documented in this encounter [facility] HealthcareEvaluation noteNo assessment information [facility] Work Phone: evaluation note* Diagnosis Onset Date Resolution Status Abdominal aortic aneurysm (A AA) 3.0 cm to 5.0 cm in diameter in female acute [facility] Work Phone: Evdrvvcgrj note* Diagnosis Tobacco dependency- Primary Tobacco use disorder Hyperlipidemia, unspecified hyperlipidemia type ([facility]/HCC) H/O: CVA (cerebrovascular accident) Primary hypertension ([facility]/HCC) Unspecified essential hypertension Moderate COPD (chronic obstructive pulmonary disease) ([facility]/HCC) RLS (restless legs syndrome) Restless legs syndrome (RLS) Peripheral polyneuropathy Screening mammogram for breast cancer Medicare annual wellness visit, subsequent RLS (restless legs syndrome)- Primary Restless legs syndrome (RLS) Peripheral polyneuropathy Moderate COPD (chronic obstructive pulmonary disease) ([facility]/HCC) Hyperlipidemia, unspecified hyperlipidemia type ([facility]/HCC) Primary hypertension ([facility]/HCC) Unspecified essential hypertension Chronic abdominal pain Abdominal pain, unspecified site Moderate COPD (chronic obstructive pulmonary disease) ([facility]/HCC)- Primary Primary hypertension ([facility]/HCC) Unspecified essential hypertension Moderate COPD (chronic obstructive pulmonary disease) ([facility]/HCC)- Primary Mass of left lung Primary hypertension ([facility]) Unspecified essential hypertension Syncope and collapse Mass of left lung- Primary Mass of left lung- Primary Primary hypertension ([facility]/HCC)- Primary Unspecified essential hypertension Moderate COPD (chronic obstructive pulmonary disease) ([facility]) Hyperlipidemia, unspecified hyperlipidemia type ([facility]) Gastroesophageal reflux disease without esophagitis Esophageal reflux H/O: CVA (cerebrovascular accident) Wellness examination History of colon polyps Chronic abdominal pain Abdominal pain, unspecified site Primary hypertension ([facility])- Primary Unspecified essential hypertension Hyperlipidemia, unspecified hyperlipidemia type ([facility]) Gastroesophageal reflux disease without esophagitis Esophageal reflux documented in this encounter [facility] Healthcare[facility] note* Diagnosis Tobacco dependency- Primary Tobacco use disorder Hyperlipidemia, unspecified hyperlipidemia type ([facility]/HCC) H/O: CVA (cerebrovascular accident) Primary hypertension ([facility]) Unspecified essential hypertension Moderate COPD (chronic obstructive pulmonary disease) ([facility]/HCC) RLS (restless legs syndrome) Restless legs syndrome (RLS) Peripheral polyneuropathy Screening mammogram for breast cancer Medicare annual wellness visit, subsequent RLS (restless legs syndrome)- Primary Restless legs syndrome (RLS) Peripheral polyneuropathy Moderate COPD (chronic obstructive pulmonary disease) ([facility]/HCC) Hyperlipidemia, unspecified hyperlipidemia type ([facility]CC) Primary hypertension ([facility]CC) Unspecified essential hypertension Chronic abdominal pain Abdominal pain, unspecified site Moderate COPD (chronic obstructive pulmonary disease) ([facility]/HCC)- Primary Primary hypertension ([facility]) Unspecified essential hypertension Moderate COPD (chronic obstructive pulmonary disease) (CMS/HCC)- Primary Mass of left lung Primary hypertension (CMS/HCC) Unspecified essential hypertension Syncope and collapse Mass of left lung- Primary Mass of left lung- Primary Primary hypertension (CMS/HCC)- Primary Unspecified essential hypertension Moderate COPD (chronic obstructive pulmonary disease) (CMS/HCC) Hyperlipidemia, unspecified hyperlipidemia type (CMS/HCC) Gastroesophageal reflux disease without esophagitis Esophageal reflux H/O: CVA (cerebrovascular accident) Wellness examination History of colon polyps Chronic abdominal pain Abdominal pain, unspecified site Primary hypertension (CMS/HCC)- Primary Unspecified essential hypertension Hyperlipidemia, unspecified hyperlipidemia type (CMS/HCC) Carcinoma in situ of ascending colon documented in this encounter [facility] Author Mikhail Moon [facility] March 25, 2024 10:35am Note Date/Time March 25, 2024 10:35am [facility] [address] [place] [address] Gastroenterology H&P Signed Patient: Bhupendra Rubi MR#: [id number] : 1950 Acct:[id number] Age/Sex: 73 / F Adm Date: 4 Loc: Room: Type: [facility] Attending Dr: Mikhail Moon MD Copies to: MD Shaikh Aung Conrad MD~ Date of Service: 03/25/2024 HISTORY & PHYSICAL: Patient's history with special attention to the cardiovascular, pulmonary systems and the current problem was reviewed with the patient immediately prior to the procedure. Present medications and doses reviewed in the EMR. Allergies and pertinent laboratory tests were also reviewedat this time in the EMR. The physical examination, as below, was then performed. Indication, assessment and HPI: 73-year-old female with history of colonic polyps and family history of colon cancer(brother) here for surveillance colonoscopy Family history of GI malignancy? Yes PHYSICAL EXAMINATION General appearance: NAD Skin: No jaundice Head: NC/AT Eyes: Anicteric Neck: Supple Lungs: Normal respiratory effort, no use of accessory muscles Abdomen: nondistended Neuro: Ox3. REVIEW OF SYSTEMS Constitutional: Denies malaise, fevers Cardiovascular: Denies chest pain, palpitations Respiratory: Denies shortness of breath, wheezing Gastrointestinal: As per HPI Genitourinary: Denies dysuria, polyuria Musculoskeletal: Denies joint swelling, joint stiffness Neurological: Denies confusion, numbness, tingling Endocrine: Denies fatigue Written informed consent obtained from the patient. Risks (including but not limited to perforation, infection, bloating, bleeding, need for emergent surgeryand loss of life), benefits and alternatives explained and questions answered. The patient verbalized understanding. Based on history patient is an appropriate candidate for the procedure. Mikhail Moon M.D. Documented By: Mikhail Moon MD 03/25/24 1034 Signed By: <Electronically signed by Mikhail Moon MD> 03/25/24 1035 [facility] Work Phone: History general Narrative - Reported* Type Description Date Medical History GERD Medical History hypercholesterolemia Surgical History cholecystectomy Surgical History tubal ligation Surgical History shoulder surgery Hospitalization History see above [facility] Other History general Narrative - Reported* Type Description Date Medical History GERD Medical History hypercholesterolemia Medical History Carotid stenosis Surgical History cholecystectomy Surgical History tubal ligation Surgical History shoulder surgery Hospitalization History see above [facility] Other Hospital Discharge instructions No data available for this section [facility] Additional Instructions Stop your blood pressure medicine. Follow-up with your doctor without fail for reevaluation of blood pressure and left lung mass.[facility] Work Phone: Hospital Discharge instructionsAmbulatory Orders* Referral to General Surgery Location: None Selected [facility] Work Phone: Progress note No data available for this section [facility] Summary Purpose Family History Relationship Condition Age at Onset Recorded Date/T [place] father Unknown Not Specified Unknown Relationship Condition Age at Onset Recorded Date/T [place] father Unknown mother Unknown Relationship Condition Age at Onset Recorded Date/T [place] father Unknown Cerebrovascular accident (CVA) Unknown mother Unknown Malignant neoplasm of lung Unknown brother Malignant neoplasm of colon Unknown Unknown brother Myocardial infarction Unknown brother Cerebrovascular accident (CVA) Unknown sister Cerebrovascular accident (CVA) Unknown sister Myocardial infarction Unknown Advance Directives Advance Directive Response Recorded Date/ Time Advance Directives No Carly 15t h, 2023 4:03pm Chief Complaint and Reason for Visit [...] MONTH F/U AAA, ABD US Unknown Unknown hX OF COLON POLYPS, ABDOMINAL PAIN hX OF COLON POLYPS, ABDOMINAL PAIN Reason for Visit Abdominal aortic ane urysm (AAA) 3.0 cm to 5.0 cm in diameter in female Chief Complaint Unknown Unknown hX OF COLON POLYPS, ABDOMINAL PAIN hX OF COLON POLYPS, ABDOMINAL PAIN Chief Complaint Unknown Unknown hX OF COLON POLYPS, ABDOMINAL PAIN hX OF COLON POLYPS, ABDOMINAL PAIN D12.6 Chief Complaint Unknown Unknown hX OF COLON POLYPS, ABDOMINAL PAIN hX OF COLON POLYPS, ABDOMINAL PAIN D12.6 NEW - benign neoplasm of colon Additional Source Comments INFORMATION SOURCE (unrecogn ized section and content) DATE CREATED AUTHOR 11/24/2022 [facility] DATE CREATED AUTHOR AUTHOR'S ORGANIZ ATION 03/03/2024 [facility] DATE CREATED AUTHOR AUTHOR'S ORGANIZ ATION 05/15/2024 [facility] DATE CREATED AUTHOR AUTHOR'S ORGANIZ ATION 05/24/2024 [facility] DATE CREATED AUTHOR AUTHOR'S ORGANIZ ATION 05/30/2024 [facility] Patient Care team informatio n (unrecognized section and content) Carbonation Tester Relationship Specialty Start Date End Date Charanjit Chen MD [address] [place] [address] PCP - General Family Medicine 02/11/24 Chris Singh NP [address] [place] [address] Nurse Practitioner Family Medicine 02/11/24 Anne Hartley LPN Licensed Practical Nurse Family Medicine 03/25/24 Team Status: Active Member Role Status Angelica Horan MD Primary Care Provider Active Team Status: Active Member Role Status Angelica Horan MD Primary Care Provider Active Start: February 23, 2024 Keegan Comer DO Attending Provider Active Sta rt: February 23, 2024 Team Status: Inactive Member Role Status Angelica Horan MD Primary Care Provider Active Start: March 09, 2024 End: March 09, 2024 Leigh Thompson DO Attending Provider Active St art: March 09, 2024 End: March 09, 2024 Team Status: Inactive Member Role Status Angelica Horan MD Primary Care Provider Active Start: March 25, 2024 End: March 25, 2024 Mikhail Moon MD Attending Provider Active Start: March 25, 2024 End: March 25, 2024 Team Status: Active Member Role Status Angelica Horan MD Primary Care Provider Active Start: March 25, 2024 Mikhail Moon MD Attending Provider, Other Provider Active Start: March 25, 2024 Team Status: Active Member Role Status Angelica Horan MD Primary Care Provider Active Start: April 06, 2024 Mikhail Moon MD Attending Provider Active Start: April 06, 2024 Personnel Name: SHAIKH HORAN MD Address: Address: [address] [place] [id number] Team Status: Active Member Role Status Angelica Horan MD Primary Care Provider Active Team Status: Inactive Member Role Status Angelica Horan MD Primary Care Provider Active Start: December 27, 2023 End: December 27, 2023 Bernardino Bhakta MD Emergency Provider Active St art: December 27, 2023 End: December 27, 2023 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 Tester Relationship Specialty Start Date End Date Shaikh Horan MD PCP - General Internal Medicine 01/26/23 Shaikh Horan MD [address] [place] [address] PCP - Devoted 04/12/23 Personnel Name: SHAIKH HORAN Address: Address: [address] [place] [address] REASON FOR VISIT (unrecogniz ed section and content) Reason Onset Date Comments Med Refill 05/02/2024 Reason Comments Consult Colon polyp ref'd by [facility] Specialty Diagnoses / Procedures Referred By Dionne t Referred To Contact General Surgery Diagnoses Benign neoplasm of colon, unspecified Procedures [place] OFFICE/OUTPATIENT NEW HIGH MDM 60 MINUTES Mikhail Moon MD [address] [facility] [address] [place] [address] Phone: tel: fax: [facility] [address] [facility] [address] [place] [address] Phone: tel: fax: Referral ID Status Reason Start Date Expiration Date V isits Requested Visits Authorized [id number] Closed Specialty Services Required 04/11/2024 10/08/2024 1 1 Goals (unrecognized section and content) Goals may [...] BE BASED ON THE PRIMARY CLINICAL RECORDS. [employer] provides no warranty or guarantee of the accuracy or completeness of information in this document.
== END 2024-06-02 09:22 | disposition home or self-care (01) ==
LOC: HEMC 07:40
PROVIDERS: Visit Provider Internal Medicine Hematology & Oncology
DX: R91.1 Solitary pulmonary nodule (principal); D72.829 Elevated white blood cell count, unspecified; J44.9 Chronic obstructive pulmonary disease, unspecified; F17.200 Nicotine dependence, unspecified, uncomplicated; Z90.49 Acquired absence of other specified parts of digestive tract; Z90.710 Acquired absence of both cervix and uterus
CPT/HCPCS: G0463

== ENCOUNTER 2024-06-13 01:22 | Inpatient (IN) | payer MEDICARE, SELFPAY ==
[2024-06-13] VITALS (113 sets, daily range): BP systolic 101–162; BP diastolic 49–106; PULSE 62–105; RESP 16; TEMP 36.7–37; O2SAT 77–100; BMI 28.9; BMI 28.6
--- NOTE | 2024-06-13 01:27 | ECG_ITS ---
The [facility] Test Date: 2024-06-13 Pat Name: BHUPENDRA MIRANDA Department: Room: - Gender: Female Internal Grinder: : 1950 Requested By: Order Number: [id number] Reading MD: SARIAH OVERTON Measurements Intervals [place] Rate: 78 P: 74 MD: 178 QRS: 33 QRSD: 88 T: 76 QT: 372 QTc: 405 Interpretive Statements 1100 Sinus rhythm 8101 Low QRS voltage in limb leads 9120 atypical ECG No previous ECG available for comparison Electronically Signed On 06-13-2024 6:56:53 EST by SARIAH OVERTON
--- NOTE | 2024-06-13 01:27 | XR_ITS ---
The [address] [address] Patient Name: BHUPENDRA MIRANDA MRN: [id number] date: 1950 Sex: F Assigned Patient Location: ER Current Patient Location: ER Accession/Order Number: [id number] Exam Date: 06/13/2024 01:50 Report Date: 06/13/2024 04:38 At the request of: BESS PRABHAKAR Procedure: XR chest 1V EXAM: XR chest 1V HISTORY: ams, hypoxia COMPARISON: Portable chest radiograph dated 03/09/2024. TECHNIQUE: AP erect portable chest radiograph performed. FINDINGS: The patient is rotated to the right which accentuates the mediastinal silhouette. Stable mild to moderate enlargement of the cardiac silhouette. Stable moderate atheromatous calcification at the aortic arch. The previously seen pleural-based masslike density within the lateral aspect of the left mid and upper chest is improved with a residual 3.4 cm nodular density within the lateral aspect of the left mid chest. There is mild patchy density at the left lung base suggesting atelectasis and/or infiltrate. There is no pleural effusion or pulmonary vascular congestion. There is no pneumothorax or acute osseous abnormality. XR/XR chest 1V IMPRESSION: The previously seen pleural-based masslike density within the lateral aspect of the left mid and upper chest is improved with a residual 3.4 cm nodular density within the lateral aspect of the left mid chest. There is mild patchy density at the left lung base suggesting atelectasis and/or infiltrate. Electronically authenticated by: GABY WEBSTER Date: 06/13/2024 04:38
--- NOTE | 2024-06-13 01:27 | CT_ITS ---
The [address] [address] Patient Name: BHUPENDRA MIRANDA MRN: [id number] date: 1950 Sex: F Assigned Patient Location: ER Current Patient Location: ER Accession/Order Number: [id number] Exam Date: 06/13/2024 01:50 Report Date: 06/13/2024 02:40 At the request of: BESS PRABHAKAR Procedure: CT stroke head/brain wo con EXAM: CT stroke head/brain wo con HISTORY: AMS COMPARISON: None. TECHNIQUE: Axial images the brain were obtained from the skull base to the vertex without contrast enhancement. Sagittal and coronal reformations were provided. FINDINGS: No acute intracranial hemorrhage, extra-axial fluid collection, midline shift or mass effect is seen. No space-occupying lesion is demonstrated. Superimposed areas of remote infarction and probable chronic microvascular ischemic change are noted. No CT evidence of an acute ischemic event. There are vascular calcifications along the course of the carotid siphon. Mucosal thickening partially opacifies the left maxillary antrum. The visualized paranasal sinuses and mastoids are otherwise well-aerated. CT/CT stroke head/brain wo con IMPRESSION: 1. No CT evidence of an acute intracranial hemorrhage or acute ischemic event. 2. Intracranial volume loss with superimposed remote infarctions and probable superimposed chronic microvascular ischemic change. Electronically authenticated by: ETIENNE REYES Date: 06/13/2024 02:40
--- OUTSIDE RECORDS SUMMARY | 2024-06-13 01:31 | XMS_ITS | CCD ---
Author Organization [facility] Inform ion Partnership [facility] Care Team Providers Care Pool Hand Name Role Phone FAWWAD, HURTADO H Admitting Unavailable FAWWAD, HURTADO H Attending Unavailable FAWWAD, HURTADO H Primary Care Unavailable FAWWAD, HURTADO H Consulting Unavailable FAWWAD, HURTADO H Admitting Unavailable FAWWAD, HURTADO H Attending Unavailable FAWWAD, HURTADO H Primary Care Unavailable DR RMOEL ALONZO Consulting Unavailable FAWWAD, HURTADO H Consulting [...] Care Unavailable AMANDA PINEDO Admitting Unavailable AMANDA IPNEDO Attending Unavailable TIAGO THOMSON Consulting UnavailAMANDA Penn Consulting Unavailable LAYNE HO Consulting Unavailable ANDRES GUZMAN Consulting Unavailable TRISTA Morgan, DR ROBERTS Admitting Unavailable TRISTA ., DR ROBERTS Attending Unavailable FAWWAD, HURTADO H Primary Care Unavailable DR ARMANDO EASLEY Consulting Unavailable FAWWAD, HURTADO H Admitting Unavailable FAWWAD, HURTADO H Attending Unavailable FAWWAD, HURTADO H Primary Care Unavailable FAWWAD, HURTADO Primary Care Physician Cherelle Bautista Unavailable Nigel Valladares Unavailable Aung FARFAN, [facility] Primary Care Provider Shaikh Horan MD Unavailable MD Aung [facility] Primary Care Provider MD Bernardino Bhakta Emergency Provider CLOTILDE Bautista-Remi Mckay Attending Provider [facility] Referring Unavailable Arden De Leon Attending Unavailable DO Ngoc Leigh P Attending Provider MD Mikhail Moon Attending Provider MD Aung [facility] Primary Care Provider [phone] April FARFAN [facility] Primary Care Provider [phone] Chris Singh NP Unavailable Naeem CASSIDY, Anne Unavailable Unavailable [facility] Unavailable Asaad, Imad Admitting Unavailable Asaad, Imad Attending Unavailable [facility] Unavailable Asaad, Imad Referring Unavailable Drew, Nitza Attending Unavailable Drew, Nitza Admitting Unavailable [facility] Care Unavailable Asaad, Imad Admitting Unavailable Asaad, Imad Attending Unavailable [facility] Care Unavailable Bernardino Bhakta Attending Unavailable Bernardino Bhakta Admitting Unavailable [facility] Primary Care Unavailable Samsa, Leigh P Attending Unavailable Samsa, Leigh P Admitting Unavailable [facility] Primary Care Unavailable Samsa, Leigh P Attending Unavailable Samsa, Leigh P Admitting Unavailable [facility] Primary Care Unavailable Cherelle Bautista Admitting Unavailable Cherelle Bautista Attending Unavailable Naeem CERTIFIED NOVELL ENGINEER, Anne Unavailable Unavailable Henok Hendrix MA Unavailable Unavailable [facility] Attending Unavailable [facility] Attending Unavailable [facility] Attending Unavailable SHAIKH HORAN Attending Unavailable CHRIS SINGH Attending CHRIS Chiang Attending UnavailJAVIER Arreola Attending Unavailable ASAAD, IMAD Referring Unavailable CHRIS SINGH Attending JAVIER Whitley Attending Unavailable OMBALLIDIANA Attending Unavailable OMBALLI, MOHAMED Referring Unavailable OMBALLI, MOHAMED Referring Unavailable OMBALLI, MOHAMED Referring Unavailable OMBALLI, MOHAMED Referring Unavailable OMBALLI, MOHAMED Attending Unavailable Allergies Allergy Classification Reported Allergen(s) Allergy Type Date of Onset Reaction(s) Facility (1 source) No Known Medication Allergies; 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: [No Known Medication Allergies] Propensity to adverse reactions (disorder) [facility] Repository (1 source) ALLERGIES NOT ON FILE; 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: [ALLERGIES NOT ON FILE] Propensity to adverse reactions (disorder) [facility] Repository Medications Current Medications Medication Drug Class(es) Dates Sig (Normalized) Sig (Original) 30 ACTUAT fluticasone furoate 0.2 MG/ACTUAT / umeclidinium 0.0625 MG/ACTUAT / vilanterol 0.025 MG/ACTUAT Dry Powder Inhaler [Trelegy] (2 sources) Trelegy Ellipta 200-62.5-25 MCG/ACT Inhalation for 30 Days Active [id number] 200 actuat albuterol 0.09 mg/actuat metered dose inhaler (17 sources) beta2-Adrenergic Agonist Start: 12-30-2023 Albuterol Sulfate Active 1 PUFF INHALATION As Directed December 30, 2023 12:00am Start: 12-30-2023 Albuterol Sulf ate Active INHALATION December 30, 2023 12:00am Start: 11-26-2023 take 2 puff(s) by in halation every four hours for wheezing albuterol HFA 90 mcg/act inhaler Indications: Moderate COPD (chronic obstructive pulmonary disease) ([facility]) Inhale 2 puffs every 4 (four) hours [...] MG tablet Indications: Hyperlipidemia, unspecified hyperlipidemia type ([facility]/HCC) Take 1 tablet (80 mg) by mouth Daily 90 tablet 03/07/2024 06/05/2024 Active 120 actuat budesonide 0.16 mg/actuat / formoterol fumarate 0.0048 mg/actuat / glycopyrrolate 0.009 mg/actuat metered dose inhaler (12 sources) Corticosteroid, beta2-Adrenergi c Agonist Start: 03-11-2024 Husvepysiw-Hawyeycu-V ormoterol (Breztri Aerosphere) 160-9-4.8 mcg/actuation HFA aerosol inhaler Active 2 INH INHALATION every day in the morning and in the evening March 11, 2024 12:00am Start: 03-02-2024 take 2 puff(s) by inhalation in the morning Ybyuqqp-Wifgbgrrcer-Qnyqgmtcva (Breztri Aerosphere) 160-9-4.8 MCG/ACT aerosol Indications: Moderate COPD (chronic obstructive pulmonary disease) ([facility]) Inhale 2 puffs in the morning and [...] Daily, # 90 cap(s), Refills(s) 0, Pharmacy: [facility] (formerly [facility]3], 159, cm, 12/24/22 10:00:00 EDT, Height/Length Dosing, 67.6, kg, 12/24/22 10:00:00 EDT, Weight Dosing Start Date: 02/18/23 Status: Ordered ezetimibe 10 mg oral tablet (18 sources) Dietary Cholesterol Absorption Inhibitor Start: 07-09-2023 End: 10-07-2023 take 1 tablet by mouth in the morning ezetimibe (Zetia) 10 MG tablet Indications: Hyperlipidemia, unspecified hyperlipidemia type (CMS/HCC) Take 1 tablet (10 mg) by mouth in the morning. 30 tablet 2 07/09/2023 Active fenofibrate 48 mg oral tablet (8 sources) Peroxisome Proliferator Receptor alpha Agonist Start: 03-07-2024 End: 03-07-2025 take 1 tablet by mouth once daily fenofibrate (Tricor) 48 MG tablet Indications: Mixed hyperlipidemia (CMS/HCC) Take 1 tablet (48 mg) by mouth Daily 30 tablet 11 03/07/2024 03/07/2025 Active ferrous sulfate 325 mg delayed release oral tablet (4 sources) Start: 01-06-2023 End: 05-19-2023 take 1 tablet by mouth once daily ferrous sulfate 325 mg oral enteric coated tablet 325 mg = 1 tab(s), Oral, Daily, X 90 day(s), # 90 tab(s), Refills(s) 0, Pharmacy: [facility] (formerly [facility]3], 159, cm, 12/24/22 10:00:00 EDT, Height/Length Dosing, 67.6, kg, 12/24/22 10:00:00 EDT, Weight Dosing Start Date: 02/18/23 Stop Date: 05/19/23 Status: Ordered Fluticasone-Umecli din-Vilant (Trelegy Ellipta) 200-62.5-25 MCG/ACT aerosol powder (1 source) Start: 08-20-2023 End: 11-18-2023 take 1 puff(s) by inhalation in the morning Fluticasone-Umeclid in-Vilant (Trelegy Ellipta) 200-62.5-25 MCG/ACT aerosol powder Indications: Moderate COPD (chronic obstructive pulmonary disease) ([facility]) Inhale 1 puff in the morning. 28 [...] 11/26/2023 Active linaclotide 0.145 mg oral capsule (8 sources) Guanylate Cyclase-C Agonist Start: 11-26-2023 take [...] pantoprazole 40 mg delayed release oral tablet (20 sources) Proton Pump Inhibitor Start: 11-25-2023 End: [...] Status: Ordered rOPINIRole 0.5 mg oral tablet (19 sources) Nonergot Dopamine Agonist Start: 08-20-2023 End: 11-18-2023 take 1 tablet by mouth at bedtime rOPINIRole (Requip) 0.5 MG tablet Indications: Restless Leg Syndrome Take 1 tablet (0.5 mg) by mouth at bedtime 90 tablet 08/20/2023 Active traZODone hydrochloride 100 mg oral tablet (20 sources) Serotonin Reuptake Inhibitor Start: 06-09-2022 End: 05-24-2024 take 1 tablet by mouth at bedtime traZODone (Desyrel) 100 MG tablet Indications: Psychophysiological insomnia Take 1 tablet (100 mg) by mouth at bedtime 90 tablet 1 11/26/2023 Active zolpidem tartrate 10 mg oral tablet (17 sources) gamma-Aminobuty paulette Acid-ergic Agonist Start: 12-14-2023 [...] procedure, # 2 tab(s), Refills(s) 0, Pharmacy: [facility], 159, cm, 08/11/22 13:12:00 EST, Height/Length [...] device Active INHALATION December 30, 2023 12:00am Hzkbdhmlmun-Oppmkxcam-Cvrzwx er (9 sources) Start: 12-27-2023 End: 03-11-2024 Johchoimdjm-Detmcggsf-Inznxu er (Trelegy Ellipta) 200-62.5-25 mcg blister with [...] ) folic acid 1 mg oral tablet (19 sources) Start: 02-18-2023 End: 05-23-2024 take 1 [...] day(s), # 30 tab(s), Refills(s) 0, Pharmacy: [facility], 159, cm, 12/24/22 10:00:00 EDT, Height/Length Dosing, 67.6, kg, 12/24/22 10:00:00 EDT, Weight Dosing Start Date: 01/06/23 Stop Date: 02/05/23 Status: Ordered polyethylene glycol 3350 014324 mg / potassium chloride 1480 mg / sodium bicarbonate 5720 mg / sodium chloride 93881 mg powder for oral solution (7 sources) Osmotic Laxative Start: 12-24-2022 NuLYTELY Fuentes oral powder for reconstitution See Instructions, 1 EA, Refill(s) 0, Prior to colonoscopy., [facility], 159, cm, 12/24/22 10:00:00 EDT, Height/Length [...] Episodic/Chronic Aortic; peripheral; and visceral artery aneurysms (20 sources) Aneurysm of infrarenal abdominal aorta ; 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: [Infrarenal abdominal aortic aneurysm, without rupture] Onset: 07-09-2023 07-09-2023 Chronic Cancer of colon (10 sources) Carcinoma in situ of ascending colon; 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: [Carcinoma in situ of colon] Onset: 05-10-2024 05-10-2024 Chronic Chronic obstructive pulmonary disease and bronchiectasis (13 sources) Centrilobular emphysema; 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: [Moderate chronic obstructive pulmonary disease] Onset: 11-02-2022 08-20-2023 Chronic Disorders of lipid metabolism (20 sources) Hyperlipidemia; 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: [Hyperlipidemia, unspecified] Onset: 05-07-2022 06-09-2022 Chronic Esophageal disorders (18 sources) Gastroesophageal reflux disease without esophagitis; 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: [Gastro-esophageal reflux disease without esophagitis] Onset: 12-24-2022 Chronic Essential hypertension (19 sources) Hypertensive disorder; 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: [Essential (primary) hypertension] Onset: 09-03-2022 06-09-2022 Chronic Genitourinary symptoms and ill-defined conditions (20 sources) Mixed incontinence; 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: [Incontinence] Onset: 06-09-2022 Chronic Menopausal disorders (1 source) Postmenopausal atrophic vaginitis; 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: [POSTMENOPAUSAL ATROPHIC VAGINITIS] Onset: 09-03-2022 Chronic Nonspecific chest pain (3 sources) Chest pain, unspecified; 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: [CHEST PAIN UNSPECIFIED] Onset: 11-11-2022 Episodic Occlusion or stenosis of precerebral arteries (5 sources) Left carotid artery stenosis; 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: [Occlusion and stenosis of left carotid artery] Chronic Other aftercare (1 source) Other remote computer terminal operator (current) drug therapy; 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: [OTH CUSTODIAL CURRENT DRUG THERAPY] Onset: 11-13-2022 Episodic Other aftercare (1 source) computer terminal operator (current) use of aspirin; 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: [CUSTODIAL CURRENT USE OF ASPIRIN] Onset: 11-13-2022 Episodic [...] Other hereditary and degenerative nervous system conditions (10 sources) Restless legs; 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: [Restless legs syndrome] Onset: 07-09-2023 08-20-2023 Chronic Other lower respiratory disease (5 sources) Other nonspecific abnormal finding of lung field; 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: [OTH NONSPECIFIC ABN FIND LNG FIELD] Onset: 10-27-2022 Episodic Other lower respiratory disease (2 sources) Solitary pulmonary nodule; 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: [Solitary pulmonary nodule] Onset: 04-28-2024 Episodic Other nervous system disorders (9 sources) Polyneuropathy; 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: [Polyneuropathy, unspecified] Onset: 07-09-2023 [...] AND UTERUS] Onset: 09-03-2022 Episodic Substance-related disorders (17 sources) Nicotine dependence, cigarettes, uncomplicated; 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: [Smoker] Onset: 07-24-2022 Chronic Unclassified (1 source) Abdominal aortic aneurysm, without rupture, unspecified; 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: [Abdominal aortic aneurysm, without rupture, unspecified] Onset: 12-30-2023 Past or Other Problems Problem Classification Problem Date Documented Date Episodic/Chronic Abdominal pain (20 sources) Unspecified abdominal pain; 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: [Upper abdominal pain] Onset: 11-13-2022 Episodic Genitourinary symptoms and ill-defined conditions (20 sources) H/O: urinary disease; 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: [Personal history of other diseases of urinary system] Onset: 05-11-2022 Episodic Malaise and fatigue (1 source) Weakness; 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: [Weakness] Onset: 12-27-2023 Episodic Mood disorders (9 sources) Mood disorders Onset: 07-09-2023 07-09-2023 Other and unspecified benign neoplasm (16 sources) History of polyp of colon; 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: [Personal history of colonic polyps] Onset: 12-24-2022 Episodic Other circulatory disease (7 sources) History of transient ischemic attack Onset: 05-11-2022 08-11-2022 Episodic Other circulatory disease (9 sources) History of cerebrovascular accident; 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: [Personal history of transient ischemic attack (TIA), and cerebral infarction without residual deficits] Onset: 07-09-2023 07-09-2023 Episodic Other lower respiratory disease (19 sources) Lung mass; 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: [Other nonspecific abnormal finding of lung field] Onset: 01-04-2024 12-27-2023 Episodic Other screening for suspected conditions (not mental disorders or infectious disease) (15 sources) Encounter for screening for malignant neoplasm of respiratory organs; 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: [Encounter for screening mammogram for malignant neoplasm of breast] Onset: 07-09-2022 Episodic Syncope (8 sources) Syncope and collapse; 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: [Syncope and collapse] Onset: 01-04-2024 01-04-2024 Episodic Unclassified (1 source) Abdominal aortic aneurysm (AAA) without rupture, unspecified part I71.40 Unclassified (8 sources) Onset: 12-08-2023 12-08-2023 Results Test Name Value Interpretation Reference Range Facility Orders Onlyon 05-27-2024 Orders Only [id number] Maximiliano Ruib césar Wilburn 1950 F Date Provider Department Center 05/27/2024 CarineMesfinMARTELL [facility] Family History Problem Relation Age of Onset Lung cancer Mother Other Sister Family Status - Relation Status Age at Mother Sister Normal [facility] SURGICAL PATHOLOGY REFER ENCE LAB CONSULTon 05-26-2024 [facility] CASE REPORT [facility] Comment on above: Surgical Pathology R eport Case: [id number] Authorizing Provider: Javier Villanueva Collected: 05/24/2024 11:27 AM Ordering Location: [facility] Main Received: 05/24/2024 11:26 AM [facility] Pathologist: Leroy Zayas MD, PhD Specimen: Slide(s), 16 SLIDES [id number] [facility] CLINICAL HISTORY CONSULT REQUESTED [facility] DIAGNOSIS COMMENT [facility] Comment on above: Thank you for allowi ng us the opportunity to review this case in consultation representing the colon polyp biopsies from the 73-year-old female. Per provided letter and patient note, the manager of distribution felt the polyp was completely removed. Histologic sections of the ascending colon polyp demonstrates adenomatous polypoid colonic mucosa with tubulovillous architecture. Areas of high-grade dysplasia characterized by nuclear enlargement, hyperchromasia, nuclear rounding and loss of polarity are seen. As you noted, there are several additional tissue fragments demonstrate irregular focally angulated glands in the background of fibrosis resembling desmoplasia. These findings are worrisome for submucosal invasion. However, given the superficial nature of the biopsy and poor orientation of the tissue, we agree with you that a definitive diagnosis of invasive adenocarcinoma cannot be rendered in this material. Endoscopic and imaging correlation is necessary to ensure entire excision of the lesion. This case was reviewed at the intradepartmental GI/HPB Pathology consensus conference on 05/26/2024, with agreement on the final diagnostic interpretation among the attendees (Eliecer Jaramillo, Esme, Doron, and Devaughn). Thank you for sending this case in consultation. Please do not hesitate to contact the GI consultation service at [phone] with questions or if additional follow-up information becomes available. This case was reviewed in conjunction with the GI pathology fellow, Sangita Rai M.D. F FINAL DIAGNOSIS [facility] Comment on above: A. 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 - See comment. FINAL PERFORMING LAB [facility] Comment on above: Diagnostic interpret ation performed at: [facility], [address] [place] [address], Desk [place] [address] CLIA# [id number] Stenciler: Henri Mireles MD Specimen Type: FORMALIN-FIXED PARAFFIN-EMBEDDED TISSUE SPECIMEN Ordering Facility: External Submitter Address: , , Original Ordering Provider: JAVIER VILLANUEVA [facility] 36on 05-18-2024 36 Attempted to contact patient to schedule a colonoscopy with EMR. Patient is at [facility] already today for an EBUS, and tells me she is having the colonoscopy today, attempted to explain to her the difference in the procedures but she ended up hanging up on me. Will try her tomorrow. Normal [facility] Anesthesiaon 05-18-2024 Anesthesia [id number] Maximiliano Rubi 1950 F Date Provider Department Center 05/18/[id number], TAYL*[facility] OR [facility] Medical C Family History Problem Relation Age of Onset Lung cancer Mother Other Sister Family Status - Relation Status Age at Mother Sister Normal [facility] HISTOLOGY - TISSUE EXAMon LAB AP ADDENDUM 1 Normal [facility] Comment on above: Result Comment: This case ([id number]) was sent to [facility] for PD-L1 22C3 IHC with tumor proportion score (TPS) interpretation and read by Rosie Azevedo MD. The result reads as follows: Tumor Proportion Score: 91-100% Adequacy of specimen: Adequate Addendum electronically signed by Javier Mensah MD on 06/02/2024 at 10:28 AM Performed By: #### L [id number] #### [facility] ([facility]) [address] [place] [address] LAB AP ASR DISCLAIMER The interpretation of [...] the Clinical Laboratory Improvement Amendments of 1998. [facility] Comment on above: Performed By: #### L [id number] #### [facility] ([facility]) [address] [place] [address] LAB AP CASE REPORT Normal [facility] Comment on above: Result Comment: Surg ical Pathology Case: [id number] Authorizing Provider: Diana Warren MD Collected: 05/18/2024 1331 Ordering Location: [facility] Main Operating Room Received: 05/18/2024 1432 Pathologist: Javier Mensah MD Specimen: Lung, Left Upper Lobe, Left Upper Lung Mass bx r/o Cancer Performed By: #### L [id number] #### [facility] ([facility]) [address] [place] [address] LAB AP CLINICAL INFORMATION Order Diagnoses [facility] Comment on above: Result Comment: R91. 1 - Lung nodule [ICD-10-CM] Performed By: #### L [id number] #### [facility] ([facility]) [address] [place] [address] LAB AP DIAGNOSIS COMMENT [facility] Comment on above: Result Comment: Immu [...] if clinically indicated. Performed By: #### L [id number] #### [facility] ([facility]) [address] [facility] [place] [address] LAB AP GROSS DESCRIPTION [facility] Comment on above: Result Comment: Phillip golden, Left Upper Lobe. Received in formalin labeled with the patient's name Bhupendra Rubi and left upper lung mass BX rule out cancer, is a 2.0 x 0.3 x 0.1 cm aggregate of chandler-pink, feathery soft tissue fragments. The specimen is filtered and submitted in toto in 1 cassette. Saniya Carson, Pathologists' [employer] Sawyer Student Performed By: #### L [id number] #### [facility] ([facility]) [address] [facility] [place] [address] LAB AP MICROSCOPIC DESCRIPTION Microscopic examination performed. [facility] Comment on above: Performed By: #### L [id number] #### [facility] ([facility]) [address] [facility] [place] [address] LAB AP REPORT FINAL DIAGNOSIS NARRATIVE [facility] Comment on above: Result Comment: Phillip golden, left upper lobe, biopsy: -Adenocarcinoma. Preliminary result electronically signed by Javier Mensah MD on 05/20/2024 at 12:17 PM Performed By: #### L [id number] #### [facility] ([facility]) [address] [facility] [place] [address] HPon 05-18-2024 HP ----- ----- Attestation signed by Diana Warren MD at 05/18/2024 11:17 AM Re-explained the procedure to the patient along with the associated risk of pneumothorax, bleeding, hypoxia, and respiratory failure. Patient is agreeable and will proceed with the scheduled robotic bronchoscopy, TBBx, and Ebus TBNA Diana Warren MD Interventional Pulmonary Medicine Pulmonary and Critical Care Medicine [facility] Physicians ----- History Reviewed reviewed. The patient [...] edema. Skin: Warm and dry. Normal [facility] NON-MENTAL HEALTH NURSE PRACTITIONER CYTOLOGY - CELLULAR EXAMon 05-18-2024 LAB AP CASE REPORT Normal [facility] Comment on above: Result Comment: Non- gynecologic Cytology Case: [id number] Authorizing Provider: Diana Warren MD Collected: 05/18/2024 1309 Ordering Location: [facility] Main Operating Room Received: 05/19/2024 1251 Pathologist: Javier Mensah MD Specimens: A) - Lung, Left Upper Lobe B) - Lung, Left Upper Lobe C) - Lymph Node Station 7, Lymph Node Station 7 FNA D) - Lymph Node Station 4R, Lymph Node Station 4R FNA Performed By: #### L [id number] ####[facility] (BEAKER)[address] [place] [address] LAB AP CLINICAL INFORMATION Normal [facility] Comment on above: Result Comment: PET avid left upper lobe lung nodule that has increased in size (2.2 cm), 40 pack-year smoking history Performed By: #### L [id number] ####[facility] (BEAKER)[address] [place] [address] LAB AP DIAGNOSIS COMMENT Normal [facility] Comment on above: Result Comment: Ther e is a moderate amount of tumor cells present in the cell block of part A and scant tumor in the cell block of part B for additional studies, if clinically indicated. See also concurrent biopsy, [id number]. Performed By: #### L [id number] ####[facility] ([facility])[address] [place] [address] LAB AP GROSS DESCRIPTION Normal [facility] Comment on above: Result Comment: A. 2 air-dried slides, 2 alcohol-fixed slides, 30 mL CytoLyt with clear, red fluid and clots B. 15 mL cloudy, red fluid C. 30 mL CytoLyt with clear, pink fluid D. 30 mL CytoLyt with clear, pink fluid and white flecks Performed By: #### L [id number] ####[facility] ([facility])[address] [place] [address] LAB AP INTRAOPERATIVE CONSULTATION [facility] Comment on above: Result Comment: A. [...] material submitted.* Performed By: #### L [id number] ####[facility] CORPORATION)[address] [place] [address] LAB AP MICROSCOPIC DESCRIPTION [facility] Comment on above: Result Comment: A. [...] and blood. Performed By: #### L [id number] ####[facility] ([facility])[address] [place] [address] LAB AP REPORT FINAL DIAGNOSIS NARRATIVE Normal [facility] Comment on above: Result Comment: A. L cahntel, Left Upper Lobe, Ion-guided fine needle aspiration: - Non-small cell carcinoma. See concurrent surgical biopsy [id number] for results of immunohistochemistry. B. Lung, Left Upper Lobe, bronchoalveolar lavage: - Non-small cell carcinoma C. Lymph Node, Station 7, EBUS-guided fine needle aspiration: - Negative for metastatic malignancy. - Cellular evidence of a lymph node. D. Lymph Node, Station 4R, EBUS-guided fine needle aspiration: - Negative for metastatic malignancy. - Cellular evidence of a lymph node. Performed By: #### L AB13 ####[facility] ([facility])[address] [place] [address] NURSNOTEon 05-18-[address] Warren viewed c hest xray at bedside and gave specification writer verbal permission to discharge patient home. RN reviewed discharge instructions with patient and significant other at bedside. No questions or concerns expressed at this time. Normal [facility] NURSNOTE X ray is at bedside Normal [facility] NURSNOTE STAT Portable Chest X-Ray in PACU. Follow up at [facility] with Carrol Kunz, for lab results in 2-4 weeks. May resume a Regular Diet and home medications if Chest X-Ray is normal. Normal [facility] NURSNOTE Bronch/EBUS Findings : Left Upper Lung Mass Normal [facility] POCT GLUCOSE METER UNSOLICIT ED RESULTSon 05-18-2024 Glucose [Mass/Vol] 96 mg/dL Normal 70-105 [facility] Comment on above: Order Comment: Waive d Testing in the ED is performed under the ED CLIA certificate #[id number]. Result Comment: aepp ink Performed By: #### L [id number] ####[facility] (BEAKER)[address] [place] [address] Telephoneon 05-18-2024 Telephone [id number] Maximiliano Rubi 1950 F Date Provider Department Center 05/18/2024 EmilyNICKPHISHANELMARTELL [facility] Family History Problem Relation Age of Onset Lung cancer Mother Other Sister Family Status - Relation Status Age at Mother Sister Normal [facility] Prep for Procedureon 024 Prep for Procedure [id number] Maximilaino Rubi 1950 F Date Provider Department Center 05/12/2024 383-DIANA WARREN [facility] Family History Problem Relation Age of Onset Lung cancer Mother Other Sister Family Status - Relation Status Age at Mother Sister Normal [facility] CT CHEST WO IV CONTRASTon CT [...] cm. Electronically signed: Leigh Menon MD. Not Lawanda Invalid [facility]ation [facility] HP ----- ----- Attestation signed by iDana Warren MD at 04/29/2024 8:53 AM Total [...] Age: 73 y.o. : 1950 Account No.: [id number] Referring physician: Dr. Lundberg Chief complaint: Lung [...] was initiated by the patient and conducted ixi-[id number]-bd-face with use of audio-only real time telephone [...] examination (more content not included)... Normal [facility] Telemedicineon 04-28-2024 Telemedicine [id number] Maximiliano Rubitrupti Kasie 1950 F Date Provider Department Center 04/28/2024 Radha-DIANA WARREN [facility] ONC DCC Family History Problem Relation Age of Onset Lung cancer Mother Other Sister Family Status - Relation Status Age at Mother Sister Level of Service:57542 LA PHYS/QHP TELEPHONE EVALUATION 21-30 MIN () Reason for Visit and Comments: New Patient [632] - ADA ACCOMMODATION CONSULTANT referral for lung nodules Normal [facility] CT abdomen pelvis w conon CT abdomen pelvis w con [facility] Main [place] [address] [place] [address] CT Scan Report Signed Patient: Bhupendra Rubi MR#: [id number] 306 : 1950 Acct:[id number] Age/Sex: 73 / F ADM Date: 04/21/24 Loc: CT Room: Type: [facility] Attending Dr: Mikhail Moon MD Copies to: Mikhail Moon MD Ordering Provider: Mikhail Moon MD Date of Service: 04/21/24 CT/CT abdomen pelvis w con: 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 Impression dictated by: Napoleon Jalloh Jr., D.OCathy04/21/2024 4:03 PM Dictation Location: [place] [address] Transcribed By: [facility] 04/21/24 1603 Dictated By: Napoleon Jalloh Jr, DO 04/21/24 1556 Signed By: 04/21/24 1603 Normal [facility] Creatinineon 04-21-2024 GFR/1.73 sq M.predicted MDRD (S/P/Bld) [Vol rate/Area] mL/min/{1.73_m2} Normal [facility] Comment on above: Order Comment: STAT FOR CT Result Comment: PERF ORMED BY: [place] [address] PATHOLOGIST RN PLACEMENT JENNIFER ALANIZ M.D. Performed By: #### C EA #### [address] Creatinine [Mass/volume] in Serum or PlasmaOrdered By: Mikhail Moon on 04-21-2024 Creatinine [Mass/Vol] 0.91 mg/dL Normal 0.60-1.20 [facility] Comment on above: Order Comment: STAT FOR CT Performed By: #### C EA #### [facility] [address] [place] [address] No Panel InformationOrdered By: Mikhail Moon on 04-21-2024 Estimated GFR (CKD-EPI) > 60.0 mL/Min [facility] Creatinine Clearance (Chem N/A [facility] Serum or plasma carcinoembry onic antigen measurement (mass/volume)Ordered By: Mikhail Moon on 04-21-2024 Carcinoembryonic Ag [Mass/Vol] 10.0 ng/mL High 0.0-3.0 [facility] Comment on above: Serial tumor marker results determined by assays using different manufacturers or methods may not be comparable.[facility] instrument technologist and method:ANTIONE [employer] DXI, 2 SITE IMMUNOENZYMATIC SANDWICH ASSAY. Urea nitrogen [Mass/volume] in Serum or PlasmaOrdered By: Mikhail Moon on 04-21-2024 Urea nitrogen [Mass/Vol] 18 mg/dL Normal 7-25 [facility] Comment on above: Order Comment: STAT FOR CT Performed By: #### C EA #### [facility] [address] [place], [place] [id number] [facility] No Panel InformationOrdered By: Mikhail Moon on 03-25-2024 Miscellaneous Pathology Test See comment [facility] Comment on above: See report. Scanned copy available in EMR. Pathology Request for Lab Co rpon 03-25-2024 Pathology Request for Lab Crys Normal [facility] Comment on above: Order Comment: PATHO LOGY GI SPECIMEN Result Comment: See report. Scanned copy available in EMR. PERFORMED BY: [place] [address] PATHOLOGIST RN PLACEMENT JENNIFER ALANIZ M.D. Performed By: #### P ATH TO [facility] #### [address] Perez 03-09-2024 L Specimen: [id number] Received: 03/10/24 Status: TRINIDAD Araiza Num: [id number] Spec Type: Surgical Subm Dr: Leigh Thompson DO Tissues: A Lung CT-Guided Biopsy (BAL HÉCTOR) Procedures: HE/2, Gross/Micro L4 Age/ Patient Sex Location Account Attending Physician Bhupendra Rubi 73/F LABELL [id number] Leigh Thompson DO SPEC NUM: [id number] RECD: 03/10/24 STATUS: TRINIDAD ARAIZA NUM: [id number] LORA: 03/09/[address]: Leigh Thompson DO ENTERED: 03/10/241350 [facility] DR: Praveen Torres SPEC TYPE: Surgical DEPT: JADE GUERRA ENTERED BY: [id number] RECV BY: [id number] ORDERED: HE/2, Gross/Micro L4 ORDERED: HE/2, Gross/Micro [...] are performed supporting the above interpretation Specimen: [id number] Received: 03/10/24 Status: TRINIDAD Araiza Num: [id number] Spec Type: Surgical Subm Dr: Leigh Thompson DO Tissues: A Lung CT-Guided Biopsy (BAL HÉCTOR) Procedures: HE/2, Gross/Micro L4 Patient: Bhupendra Rubi [id number] (Continued) Specimen: [id number] Received: 03/10/24 (Continued) Signed (signature on file) Eren Gomez MD 03/18/24 0936 Specimen: [id number] Received: 03/10/24 Status: TRINIDAD Araiza Num: [id number] Spec Type: Surgical Subm Dr: Leigh Thompson DO Tissues: A Lung CT-Guided Biopsy (BAL HÉCTOR) Procedures: HE/2, Gross/Micro L4 Patient: GreysonBhupendra [id number] (Continued) Specimen: [id number] Received: 03/10/24 (Continued) CPT Codes 60903 Specimen: [id number] Received: 03/10/24 Status: TRINIDAD Arguellesshonda Num: [id number] Spec Type: Surgical Subm Dr: Leigh Thompson DO Tissues: A Lung CT-Guided Biopsy (BAL HÉCTOR) Procedures: HE/2, Gross/Micro L4 Patient: Bhupendra Rubi [id number] (Continued) Signed (signature on file) Jason Gomez MD 03/18/24935 [facility] L Specimen: [id number] Received: 03/15/24 Status: TRINIDAD Araiza Num: [id number] Spec Type: Cytology Subm Dr: Leigh Thompson DO Tissues: A [facility] (LEFT UPPER LOBE) Procedures: HE/2, Gross/Micro L4, Cyto Prepstain, PAPSTN Age/ Patient Sex Location Account Attending Physician Bhupendra Rubi 73/F LABELL [id number] Leigh Thompson DO SPEC NUM: [id number] RECD: 03/15/24 STATUS: GRIFFINRubina ARAIZA NUM: [id number] LORA: 03/09/24-[address]: Leigh Thompson DO ENTERED: 03/15/[address]: Melissa,Lab SPEC TYPE: Cytology DEPT: JADE HUMPHREY ENTERED BY: [id number] RECV BY: [id number] ORDERED: HE/2, Gross/Micro L4, Cyto Prepstain, PAPSTN ORDERED: HE/2, Gross/Micro L4, Cyto Prepstain, PAPSTN Pathological Diagnosis Left lung upper lobe cytology: Negative for malignant cells. Gross Description Received fresh is 13 ml clear colorless unfixed fluid for cytology said to have been obtained as left upper lobe for cytology. ThinPrep and cell block preparations are prepared for microscopic examination.(FL/co) CPT Codes 43722 Specimen: [id number] Received: 03/15/24 Status: TRINIDAD Araiza Num: [id number] Spec Type: Cytology Subm Dr: Leigh Thompson DO Tissues: A BRONLASHANDA (LEFT UPPER LOBE) Procedures: HE/2, Gross/Micro L4, Cyto Prepstain, PAPSTN Patient: Bhupendra Rubi [id number] (Continued) Signed (signature on file) Diana Massey MD 03/16/24 1430 Normal [facility] US aortaon 12-30-2023 US aorta [facility] [address] [place] [address] Ultrasound Report Signed Patient: Bhupendra Rubi MR#: [id number] 306 : 1950 Acct:[id number] Age/Sex: 73 / F ADM Date: 12/30/23 Loc: [facility] Room: Type: [facility] Attending Dr: Cherelle Bautista ADA ACCOMMODATION CONSULTANT-C Ordering Provider: Cherelle Bautista APRN Date of [...] Adam Keller M.D.12/30/2023 9:53 AM Dictation Location: [place] [address] Tech: Yakelin Gibson Transcribed By: JOSE MIGUEL 12/30/23 0953 Dictated By: Adam Keller MD 12/30/23 0949 Signed By: 12/30/23 0953 Normal [facility] ABO/Rh Retypeon 12-27-2023 ABO/RH Recheck Result Positive Normal [facility] Comment on above: Result Comment: PERF ORMED BY: [place] [address] PATHOLOGIST RN PLACEMENT JENNIFER ALANIZ M.D. Activated partial thrombopla stin time (aPTT) in platelet poor plasma by coagulation aOrdered By: Bernardino Bhakta on 12-27-2023 aPTT Coag (PPP) [Time] 24.6 s Low 25.1-36.5 [facility] Comment on above: A hematocrit value g reater than 55% may lead to inaccurate results in coagulation testing. Patients having hematocrit values >55% require a special collection tube for coagulation studies. Please contact the laboratory at [phone] for redraw instructions. Alanine aminotransferase [En zymatic activity/volume] in Serum or PlasmaOrdered By: Bernardino Bhakta on 12-27-2023 ALT [Catalytic activity/Vol] 10 U/L Normal 7-52 [facility] Comment on above: Performed By: #### H S TROP, CK, CMP, CBC #### [facility] [address] [place] [address] Albumin [Mass/volume] in Ser um or Plasma by Bromocresol green (BCG) dye binding methoOrdered By: Bernardino Bhakta on 12-27-2023 Albumin BCG dye [Mass/Vol] 4.0 g/dL 3.5-5.7 [facility] Alkaline phosphatase [Enzyma tic activity/volume] in Serum or PlasmaOrdered By: Bernardino Bhakta on 12-27-2023 ALP [Catalytic activity/Vol] 105 U/L High 34-104 [facility] Comment on above: Performed By: #### H S TROP, CK, CMP, CBC #### [facility] [address] [place] [address] Arterial Blood Gason 024 ABG Base Excess -2.4 mmol/L Normal -3.0-3.0 [facility] Comment on above: Performed By: #### A BG #### Point of Care testing , ABG Frac Inspired O2 32 % Normal [facility] Comment on above: Performed By: #### A BG #### Point of Care testing , ABG Liter Flow 3 Normal [facility] Comment on above: Performed By: #### A BG #### Point of Care testing , ABG Oxygen Content 7.5 mmol/L Normal 6.6-9.7 [facility] Comment on above: Performed By: #### A BG #### Point of Care testing , ABG Oxygen Saturation 95.5 % Normal 95.0-100.0 [facility] Comment on above: Performed By: #### A BG #### Point of Care testing , ABG PCO2 46.7 mm[Hg] High 35.0-45.0 [facility] Comment on above: Performed By: #### A BG #### Point of Care testing , ABG PH 7.33 Low 7.35-7.45 [facility] Comment on above: Performed By: #### A BG #### Point of Care testing , ABG PO2 84.0 mm[Hg] Normal 80.0-100.0 [facility] Comment on above: Performed By: #### A BG #### Point of Care testing , Oxygen Device Nasal Cannula Normal [facility] Comment on above: Performed By: #### A BG #### Point of Care testing , Respiratory Critical Normal [facility] Comment on above: Result Comment: Crit ical Value called on: 12/27/2023 at 11:36 PERFORMED BY: [facility] [address] [place] [address] PATHOLOGIST RN PLACEMENT JENNIFER ALANIZ M.D. Performed By: #### A BG #### Point of Care testing , VBG Draw Site Left Radial Normal [facility] Comment on above: Performed By: #### A BG #### Point of Care testing , Arterial Blood GasOrdered By : Bernardino Bhakta on 12-27-2023 CO2 [Moles/Vol] 25.3 mmol/L Normal 23.0-27.0 [facility] Comment on above: Performed By: #### A BG #### Point of Care testing , HCO3 (Bld) [Moles/Vol] 23.8 mmol/L Normal 23.0-29.0 [facility] Comment on above: Performed By: #### A BG #### Point of Care testing , Aspartate aminotransferase [ Enzymatic activity/volume] in Serum or PlasmaOrdered By: Bernardino Bhakta on 12-27-2023 AST [Catalytic activity/Vol] 10 U/L Low 13-39 [facility] Comment on above: Performed By: #### H S TROP, CK, CMP, CBC #### [facility] [address] [place] [address] Automated basophil %Ordered By: Bernardino Bhakta on 12-27-2023 Basophils/100 WBC (Bld) 0.6 % Normal . [facility] Comment on above: Performed By: #### H S TROP, CK, CMP, CBC #### [facility] [address] [place] [address] Automated basophil countOrde red By: Bernardino Bhakta on 12-27-2023 Basophils (Bld) [#/Vol] 0.1 10*3/uL Normal 0.0-0.2 [facility] Comment on above: Result Comment: PERF ORMED BY: [place] [address] PATHOLOGIST RN PLACEMENT JENNIFER ALANIZ M.D. Performed By: #### H S TROP, CK, CMP, CBC #### [facility] [address] [place] [address] Automated blood monocyte cou ntOrdered By: Bernardino Bhakta on 12-27-2023 Monocytes (Bld) [#/Vol] 1.3 10*3/uL High 0.0-0.8 [facility] Comment on above: Performed By: #### H S TROP, CK, CMP, CBC #### [address] Automated eosinophil %Ordere d By: Bernardino Bhakta on 12-27-2023 Eosinophils/100 WBC (Bld) 0.6 % Normal . [facility] Comment on above: Performed By: #### H S TROP, CK, CMP, CBC #### [address] Automated eosinophil countOr dered By: Bernardino Bhakta on 12-27-2023 Eosinophils (Bld) [#/Vol] 0.1 10*3/uL Normal 0.0-0.45 [facility] Comment on above: Performed By: #### H S TROP, CK, CMP, CBC #### [address] Automated monocyte %Ordered By: Bernardino Bhakta on 12-27-2023 Monocytes/100 WBC (Bld) 9.8 % Normal . [facility] Comment on above: Performed By: #### H S TROP, CK, CMP, CBC #### [address] Automated neutrophil %Ordere d By: Bernadrino Bhakta on 12-27-2023 Neutrophils/100 WBC (Bld) 61.6 % Normal . [facility] Comment on above: Performed By: #### H S TROP, CK, CMP, CBC #### [address] BNP ser/plasOrdered By: Urbano Bhakta on 12-27-2023 Natriuretic peptide B (Bld) [Mass/Vol] 32.0 pg/mL Normal 5-100 [facility] Comment on above: Result Comment: PERF ORMED BY: [place] [address] PATHOLOGIST RN PLACEMENT JENNIFER ALANIZ M.D. Performed By: #### B ADA ACCOMMODATION CONSULTANT #### [address] Bacteria [Presence] in Urine sediment by Light microscopyOrdered By: Bernardino Bhakta on 12-27-2023 Bacteria LM Ql (Urine sed) 1+ [HPF] High None Seen [facility] Comment on above: Microscopic results may be affected due to low specimen volume. Bacterial blood cultureOrder ed By: Bernardino Bhakta on 12-27-2023 Bacteria identified Cx Nom (Bld) NO GROWTH 5 DAYS [facility] Bacteria identified Cx Nom (Bld) NO GROWTH 5 DAYS [facility] Bilirubin Test strip Ql (U)O rdered By: Bernardino Bhakta on 12-27-2023 Bilirubin Ql (U) Negative Negative [facility] Bilirubin.total [Mass/volume ] in Serum or PlasmaOrdered By: Bernardino Bhakta on 12-27-2023 Bilirubin [Mass/Vol] 0.3 mg/dL Normal 0.3-1.0 [facility] Comment on above: Performed By: #### H S TROP, CK, CMP, CBC #### [facility] [address] [place] [address] Blood Cultureon 12-27-2023 Bacteria identified Cx Nom (Bld) NO GROWTH 5 DAYS PERFORMED BY: [place] [address] PATHOLOGIST RN PLACEMENT JENNIFER ALANIZ M.D. Normal [facility] Comment on above: Performed By: #### C EA #### [address] Bacteria identified Cx Nom (Bld) NO GROWTH 5 DAYS PERFORMED BY: [place] [address] PATHOLOGIST RN PLACEMENT JENNIFER ALANIZ M.D. Normal [facility] Comment on above: Performed By: #### C EA #### [address] angio chest PE protocolon 12-27-2023 CT angio chest PE protocol [facility] [place] [address] CT Scan Report Signed Patient: Bhupendra Rubi MR#: [id number] 306 : 1950 Acct:[id number] Age/Sex: 73 / F ADM Date: 12/27/23 Loc: ER Room: Type: [facility] ER Attending Dr: Copies to: Bernardino Bhakta [...] Adam Berger M.D.12/27/2023 12:14 PM Dictation Location: [place] [address] Transcribed By: [facility] 12/27/23 1214 Dictated By: Adam Berger DO 12/27/23 1210 Signed By: 12/27/23 1214 Normal [facility] Calcium [Mass/volume] in Ser um or PlasmaOrdered By: Bernardino Bhakta on 12-27-2023 Calcium [Mass/Vol] 9.3 mg/dL Normal 8.6-10.3 [facility] Comment on above: Performed By: #### H S TROP, CK, CMP, CBC #### [facility] [address] [place] [address] [place] Carbon dioxide, total [Moles /volume] in Serum or PlasmaOrdered By: Bernardino Bhakta on 12-27-2023 CO2 [Moles/Vol] 26.9 mmol/L Normal 21.0-31.0 [facility] Comment on above: Performed By: #### H S TROP, CK, CMP, CBC #### [facility] [address] [place] [id number] [place] Chloride [Moles/volume] in S [place] or PlasmaOrdered By: Bernardino Bhakta on 12-27-2023 Chloride [Moles/Vol] 104 mmol/L Normal 98-107 [facility] Comment on above: Performed By: #### H S TROP, CK, CMP, CBC #### [address] Color of Urine by AutoOrdere d By: Bernardino Bhakta on 12-27-2023 Color (U) Yellow Normal Yellow [facility] Comment on above: Order Comment: Name Collection Type:: Clean-Voided Midstream Performed By: #### O B(GUAIAC) #### [address] Complete Blood Count Auto Di ffon 12-27-2023 Mean Corpuscular HGB Conc 33.0 g/dL Normal 32.0-35.0 [facility] Comment on above: Performed By: #### H S TROP, CK, CMP, CBC #### [address] Monocytes/100 WBC (Bld) 19.53 % Normal 0.00-20.00 [facility] Comment on above: Performed By: #### H S TROP, CK, CMP, CBC #### [address] NRBC% 0.1 /100{WBC} Normal 0-0.5 [facility] Comment on above: Performed By: #### H S TROP, CK, CMP, CBC #### [address] Comprehensive Metabolic Pane perez 12-27-2023 Albumin [Mass/Vol] 4.0 g/dL Normal 3.5-5.7 [facility] Comment on above: Performed By: #### H S TROP, CK, CMP, CBC #### [address] Creatinine Clr Calc Pharmacy 50.59 Normal [facility] Comment on above: Result Comment: PERF ORMED BY: [place] [address] PATHOLOGIST RN PLACEMENT JENNIFER ALANIZ M.D. Performed By: #### H S TROP, CK, CMP, CBC #### [facility] [address] [place] [address] [place] GFR/1.73 sq M.predicted MDRD (S/P/Bld) [Vol rate/Area] mL/min/{1.73_m2} Normal [facility] Comment on above: Performed By: #### H S TROP, CK, CMP, CBC #### [facility] [address] Creatine kinase [Enzymatic a ctivity/volume] in Serum or PlasmaOrdered By: Bernardino Bhakta on 12-27-2023 CK [Catalytic activity/Vol] 41 U/L Normal 30-223 [facility] Comment on above: Performed By: #### H S TROP, CK, CMP, CBC #### [address] Creatinine [Mass/volume] in Serum or PlasmaOrdered By: Bernardino Bhakta on 12-27-2023 Creatinine [Mass/Vol] 0.94 mg/dL Normal 0.60-1.20 [facility] Comment on above: Performed By: #### H S TROP, CK, CMP, CBC #### [place] [id number] [facility] D-Dimer High Sensitivityon 0 12-27-2023 D-Dimer High Sensitivity 480 ng/mL High 0-243 [facility] Comment on above: Result [...] coagulation studies. Please contact the laboratory at [phone] for redraw instructions. PERFORMED BY: [place] [address] PATHOLOGIST RN PLACEMENT JENNIFER ALANIZ M.D. Performed By: #### C EA #### [place] [address] [place] Dipstick and Microscopicon 0 12-27-2023 Bacteria,Urine 1+ High None Seen [facility] Comment on above: Order Comment: Name Collection Type:: Clean-Voided Midstream Result Comment: Micr oscopic results may be affected due to low specimen volume. PERFORMED BY: [place] [address] PATHOLOGIST RN PLACEMENT JENNIFER ALANIZ M.D. Performed By: #### O B(GUAIAC) #### [address] Bilirubin,Urine Negative Normal Negative [facility] Comment on above: Order Comment: Name Collection Type:: Clean-Voided Midstream Performed By: #### O B(GUAIAC) #### [address] Glucose Ql (U) Normal Normal Normal [facility] Comment on above: Order Comment: Name Collection Type:: Clean-Voided Midstream Performed By: #### O B(GUAIAC) #### [place] [address] [place] Nitrite,Urine Negative Normal Negative [facility] Comment on above: Order Comment: Name Collection Type:: Clean-Voided Midstream Performed By: #### O B(GUAIAC) #### [place] [address] [place] Occult Blood,Urine Negative Normal Negative [facility] Comment on above: Order Comment: Name Collection Type:: Clean-Voided Midstream Result Comment: PERF ORMED BY: [place] [address] PATHOLOGIST RN PLACEMENT JENNIFER ALANIZ M.D. Performed By: #### O B(GUAIAC) #### [place] [address] [place] Protein,Urine Negative Normal Negative [facility] Comment on above: Order Comment: Name Collection Type:: Clean-Voided Midstream Performed By: #### O B(GUAIAC) #### [place] [address] [place] RBC,Urine None Seen Normal 0-4 [facility] Comment on above: Order Comment: Name Collection Type:: Clean-Voided Midstream Result Comment: Micr oscopic results may be affected due to low specimen volume. Performed By: #### O B(GUAIAC) #### [address] Specificy [place],Urine 1.043 High 1.00 1-1.03 0 [facility] Comment on above: Order Comment: Name Collection Type:: Clean-Voided Midstream Performed By: #### O B(GUAIAC) #### [place] [address] [place] Squamous Epithelial Cell,Urine 5-9 High 0-2 [facility] Comment on above: Order Comment: Name Collection Type:: Clean-Voided Midstream Result Comment: Micr oscopic results may be affected due to low specimen volume. Performed By: #### O B(GUAIAC) #### [address] Urobilinogen,Urine Normal Normal Normal [facility] Comment on above: Order Comment: Name Collection Type:: Clean-Voided Midstream Performed By: #### O B(GUAIAC) #### [place] [address] [place] WBC,Urine 5-9 High 0-4 [facility] Comment on above: Order Comment: Name Collection Type:: Clean-Voided Midstream Result Comment: Micr oscopic results may be affected due to low specimen volume. Performed By: #### O B(GUAIAC) #### [address] ECG 12 lead ECGon 12-27-2023 ECG 12 lead ECG [facility] Main [place] [address] [place] [address] Electrocardiograph Report Signed Patient: Bhupendra Rubi MR#: [id number] 306 : 1950 Acct:[id number] Age/Sex: 73 / F ADM Date: 12/27/23 Loc: ER Room: Type: [facility] ER Attending Dr: Ordering Provider: Bernardino Bhakta [...] By Bernardino Bhakta MD 12/11 Normal [facility] Epithelial cells.squamous [# /area] in Urine sediment by Microscopy high power fieldOrdered By: Bernardino Bhakta on 12-27-2023 Epithelial cells.squamous LM.HPF (Urine sed) [#/Area] 5-9 [HPF] High 0-2 [facility] Comment on above: Microscopic results may be affected due to low specimen volume. Erythrocyte distribution wid th [Ratio] by Automated countOrdered By: Bernardino Bhakta on 12-27-2023 Erythrocyte distribution width (RBC) [Ratio] 15.6 % High 11.9-15.3 [facility] Comment on above: Performed By: #### H S TROP, CK, CMP, CBC #### [address] Erythrocytes [#/area] in Uri ne sediment by Microscopy high power fieldOrdered By: Bernardino Bhakta on 12-27-2023 RBC LM.HPF (Urine sed) [#/Area] None seen [HPF] 0-4 [facility] Comment on above: Microscopic results may be affected due to low specimen volume. Erythrocytes [#/volume] in B lood by Automated countOrdered By: Bernardino Bhakta on 12-27-2023 RBC (Bld) [#/Vol] 5.03 10*6/uL High 3.60-5.00 [facility] Comment on above: Performed By: #### H S TROP, CK, CMP, CBC #### [facility] [address] Fecal occult blood detection by immunochemistryOrdered By: Bernardino Bhakta on 12-27-2023 Hemoglobin.gastrointesti nal Ql (Stl) [facility] Fibrin D-dimer [Presence] in Platelet poor plasma by Latex agglutinationOrdered By: Bernardino Bhakta on 12-27-2023 Fibrin D-dimer LA Ql (PPP) 480 ng/mL High 0-243 [facility] Comment on above: The reference [...] coagulation studies. Please contact the laboratory at [phone] for redraw instructions. Glucose [Mass/volume] in Ser um or PlasmaOrdered By: Bernardino Bhakta on 12-27-2023 Glucose [Mass/Vol] 120 mg/dL High 70-100 [facility] Comment on above: ADA recommended refe rence rangeRandom Glucose Reference Range is dependent on time and content of last meal. Glucose of more than 200 mg/dL in a nonstressed, ambulatory subject supports the diagnosis of Diabetes Mellitus. Result Comment: [place] om Glucose Reference Range is dependent on time and content of last meal. Glucose of more than 200 mg/dL in a nonstressed, ambulatory subject supports the diagnosis of Diabetes Mellitus. ADA recommended reference range Performed By: #### H S TROP, CK, CMP, CBC #### [facility] [address] [place] [address] Glucose [Mass/volume] in Uri ne by Test stripOrdered By: Bernardino Bhakta on 12-27-2023 Glucose Test strip (U) [Mass/Vol] Normal mg/dL Normal [facility] Hematocrit [Volume Fraction] of Blood by Automated countOrdered By: Bernardino Bhakta on 12-27-2023 Hematocrit (Bld) [Volume fraction] 44.0 % Normal 34.0-46.4 [facility] Comment on above: Performed By: #### H S TROP, CK, CMP, CBC #### [address] Hemoglobin Test strip Ql (U) Ordered By: Bernardino Bhakta on 12-27-2023 Hemoglobin Ql (U) Negative Negative [facility] Hemoglobin [Mass/volume] in BloodOrdered By: Bernardino Bhakta on 12-27-2023 Hemoglobin (Bld) [Mass/Vol] 14.5 g/dL Normal 11.8-15.4 [facility] Comment on above: Performed By: #### H S TROP, CK, CMP, CBC #### [address] INR in Platelet poor plasma by Coagulation assayOrdered By: Bernardino Bhakta on 12-27-2023 INR Coag (PPP) [Relative time] 1.0 {INR} Normal [facility] Comment on above: INR Therapeutic [...] 4.5 Performed By: #### C EA #### [place] [address] [place] Ketones [Presence] in Urine by Test stripOrdered By: Bernardino Bhakta on 12-27-2023 Ketones Ql (U) Negative Normal Negative [facility] Comment on above: Order Comment: Name Collection Type:: Clean-Voided Midstream Performed By: #### O B(GUAIAC) #### [place] [address] [place] Lactate [Moles/volume] in Se rum or PlasmaOrdered By: Bernardino Bhakta on 12-27-2023 Lactate [Moles/Vol] 1.6 mmol/L Normal 0.5-2.2 [facility] Comment on above: Result Comment: PERF ORMED BY: [place] [address] PATHOLOGIST RN PLACEMENT JENNIFER ALANIZ M.D. Performed By: #### C EA #### [place] [address] [place] Leukocyte esterase [Presence ] in Urine by Test stripOrdered By: Bernardino Bhakta on 12-27-2023 Leukocyte esterase Test strip Ql (U) 4+ High Negative [facility] Comment on above: Order Comment: Name Collection Type:: Clean-Voided Midstream Performed By: #### O B(GUAIAC) #### [place] [address] [place] Leukocytes [#/area] in Urine sediment by Microscopy high power fieldOrdered By: Bernardino Bhakta on 12-27-2023 WBC LM.HPF (Urine sed) [#/Area] 5-9 [HPF] High 0-4 [facility] Comment on above: Microscopic results may be affected due to low specimen volume. Leukocytes [#/volume] correc pilar for nucleated erythrocytes in Blood by Automated counOrdered By: Bernardino Bhakta on 12-27-2023 WBC corrected for nucl RBC Auto (Bld) [#/Vol] 13.4 10*3/uL High 3.8-11.6 [facility] Leukocytes [#/volume] in Blo od by Automated countOrdered By: Bernardino Bhakta on 12-27-2023 WBC (Bld) [#/Vol] 13.4 10*3/uL High 3.8-11.6 [facility] Comment on above: Performed By: #### H S TROP, CK, CMP, CBC #### [facility] [address] [place] [address] Lymphocytes [#/volume] in Bl ood by Automated countOrdered By: Bernardino Bhakta on 12-27-2023 Lymphocytes (Bld) [#/Vol] 3.7 10*3/uL Normal 1.00-4.8 [facility] Comment on above: Performed By: #### H S TROP, CK, CMP, CBC #### [facility] [address] [place] [address] Lymphocytes/100 leukocytes i n Blood by Automated countOrdered By: Bernardino Bhakta on 12-27-2023 Lymphocytes/100 WBC (Bld) 27.4 % Normal . [facility] Comment on above: Performed By: #### H S TROP, CK, CMP, CBC #### [facility] [address] [place] [address] MCH [Entitic mass] by Automa pilar countOrdered By: Bernardino Bhakta on 12-27-2023 MCH (RBC) [Entitic mass] 28.9 pg Normal 24.7-34.3 [facility] Comment on above: Performed By: #### H S TROP, CK, CMP, CBC #### [facility] [address] [place] [address] MCHC Auto (RBC) [Mass/Vol]Or dered By: Bernardino Bhakta on 12-27-2023 MCHC (RBC) [Mass/Vol] 33.0 g/dL 32.0-35.0 [facility] MCV [Entitic volume] by Auto mated countOrdered By: Bernardino Bhakta on 12-27-2023 MCV (RBC) [Entitic vol] 87.6 fL Normal 80-100 [facility] Comment on above: Performed By: #### H S TROP, CK, CMP, CBC #### [facility] [address] Monocyte distribution width [Entitic volume] in Blood by AutomatedOrdered By: Bernardino Bhakta on 12-27-2023 Monocyte distribution width Auto (Bld) [Entitic vol] 19.53 % 0.00-20.00 [facility] Neutrophils [#/volume] in Bl ood by Automated countOrdered By: Bernardino Bhakta on 12-27-2023 Neutrophils (Bld) [#/Vol] 8.3 10*3/uL High 1.8-7.7 [facility] Comment on above: Performed By: #### H S TROP, CK, CMP, CBC #### [facility] [address] Nitrite Test strip Ql (U)Ord ered By: Bernardino Bhakta on 12-27-2023 Nitrite Ql (U) Negative Negative [facility] No Panel InformationOrdered By: Bernardino Bhakta on 12-27-2023 Arterial Blood Base Excess -2.4 mmol/L -3.0-3.0 [facility] Arterial Blood Oxygen Content 7.5 mmol/L 6.6-9.7 [facility] Arterial Blood Oxygen Saturation 95.5 % 95.0-100.0 [facility] Arterial Blood Partial Pressure CO2 46.7 mm[Hg] High 35.0-45.0 [facility] Arterial Blood Partial Pressure O2 84.0 mm[Hg] 80.0-100.0 [facility] Arterial Blood pH 7.33 Low 7.35-7.45 [facility] Blood Gas Critical Value See comment [facility] Comment on above: Critical Value chaves d on: 12/27/2023 at 11:36 Blood Gas Liter Flow 3 L/min [facility] Blood Gas Sample Site Left radial [facility] FiO2 32 % [facility] Oxygen Delivery Device Nasal cannula [facility] Estimated GFR (CKD-EPI) > 60.0 mL/Min [facility] Pharmacy Creatinine Clearance (Chem 50.59 [facility] Nucleated erythrocytes [Pres ence] in Blood by Automated countOrdered By: Bernardino Bhakta on 12-27-2023 Nucleated RBC Auto Ql (Bld) 0.1 /100{WBC} 0-0.5 [facility] Partial Thromboplastin Timeo n 12-27-2023 aPTT Coag (Bld) [Time] 24.6 s Low 25.1-36.5 [facility] Comment on above: Result Comment: A he matocrit value greater than 55% may lead to inaccurate results in coagulation testing. Patients having hematocrit values >55% require a special collection tube for coagulation studies. Please contact the laboratory at [phone] for redraw instructions. Performed By: #### C EA #### [address] Platelet mean volume [Entiti c volume] in Blood by Automated countOrdered By: Bernardino Bahkta on 12-27-2023 Platelet mean volume (Bld) [Entitic vol] 8.3 fL Normal 6.3-10.7 [facility] Comment on above: Performed By: #### H S TROP, CK, CMP, CBC #### [address] Platelets [#/volume] in Bloo d by Automated countOrdered By: Bernardino Bhakta on 12-27-2023 Platelets (Bld) [#/Vol] 399 10*3/uL Normal 150-450 [facility] Comment on above: Performed By: #### H S TROP, CK, CMP, CBC #### [address] Potassium [Moles/volume] in Serum or PlasmaOrdered By: Bernardino Bhakta on 12-27-2023 Potassium [Moles/Vol] 3.7 mmol/L Normal 3.5-5.1 [facility] Comment on above: Performed By: #### H S TROP, CK, CMP, CBC #### [address] Protein Test strip (U) [Mass /Vol]Ordered By: Bernardino Bhakta on 12-27-2023 Protein (U) [Mass/Vol] Negative Negative [facility] Protein [Mass/volume] in Ser um or PlasmaOrdered By: Bernardino Bhakta on 12-27-2023 Protein [Mass/Vol] 6.8 g/dL Normal 6.4-8.9 [facility] Comment on above: Performed By: #### H S TROP, CK, CMP, CBC #### [address] Prothrombin time (PT)Ordered By: Bernardino Bhakta on 12-27-2023 PT Coag (PPP) [Time] 11.5 s Normal 9.0-12.9 [facility] Comment on above: A hematocrit value g reater than 55% may lead to inaccurate results in coagulation testing. Patients having hematocrit values >55% require a special collection tube for coagulation studies. Please contact the laboratory at [phone] for redraw instructions. Result Comment: A he matocrit value greater than 55% may lead to inaccurate results in coagulation testing. Patients having hematocrit values >55% require a special collection tube for coagulation studies. Please contact the laboratory at [phone] for redraw instructions. Performed By: #### C EA #### [address] Serum globulin measurement b y calculation (mass/volume)Ordered By: Bernardino Bhakta on 12-27-2023 Globulin (S) [Mass/Vol] 2.8 g/dL Normal [facility] Comment on above: Performed By: #### H S TROP, CK, CMP, CBC #### [address] Serum or plasma albumin/glob ulin mass ratioOrdered By: Bernardino Bhakta on 12-27-2023 Albumin/Globulin [Mass ratio] 1.4 {ratio} Normal [facility] Comment on above: Performed By: #### H S TROP, CK, CMP, CBC #### [address] Serum or plasma anion gap de terminationOrdered By: Bernardino Bhakta on 12-27-2023 Anion gap [Moles/Vol] 12.8 mmol/L Normal 6.0-15.0 [facility] Comment on above: Performed By: #### H S TROP, CK, CMP, CBC #### [address] [address] [place] Sodium [Moles/volume] in Ser um or PlasmaOrdered By: Bernardino Bhakta on 12-27-2023 Sodium [Moles/Vol] 140 mmol/L Normal 136-145 [facility] Comment on above: Performed By: #### H S TROP, CK, CMP, CBC #### [facility] [address] [place] [address] Specific gravity Test strip (U) [Rel density]Ordered By: Bernardino Bhakta on 12-27-2023 Specific gravity (U) [Rel density] 1.043 High 1.001-1.03 0 [facility] Stool Occult Blood (Guaiac)o n 12-27-2023 Stool Occult Blood (Guaiac) Occult Blood Negative for Occult Blood by Guaiac Methodology ---- Reference range = Negative PERFORMED BY: [place] [address] PATHOLOGIST RN PLACEMENT JENNIFER ALANIZ M.D. Normal [facility] Comment on above: Performed By: #### O B(GUAIAC) #### [address] Troponin I High Sensitivityo n 12-27-2023 Troponin I High Sensitivity < 2.3 Normal 0.0-15.0 [facility] Comment on above: Result Comment: PERF ORMED BY: [place] [address] PATHOLOGIST RN PLACEMENT JENNIFER ALANIZ M.D. Performed By: #### H S TROP, CK, CMP, CBC #### [facility] [address] [place] [address] Troponin I.cardiac [Mass/vol ume] in Serum or Plasma by Detection limit <= 0.01 ng/Ordered By: Bernardino Bhakta on 12-27-2023 Troponin I.cardiac DL <= 0.01 ng/mL [Mass/Vol] < 2.3 pg/mL 0.0-15.0 [facility] Type and Screenon 12-27-2023 ABO and Rh group Nom (Bld) Blood group A Rh(D) positive Normal [facility] Urea nitrogen [Mass/volume] in Serum or PlasmaOrdered By: Bernardino Bhakta on 12-27-2023 Urea nitrogen [Mass/Vol] 13 mg/dL Normal 7-25 [facility] Comment on above: Performed By: #### H S TROP, CK, CMP, CBC #### [facility] [address] [place] [address] Urine Cultureon 12-27-2023 Bacteria identified Cx Nom (U) 50,000 colonies/ml mixed bacterial skin contaminants 2 Days PERFORMED BY: [place] [address] PATHOLOGIST RN PLACEMENT JENNIFER ALANIZ M.D. Normal [facility] Comment on above: Performed By: #### O B(GUAIAC) #### [address] Urine appearanceOrdered By: Bernardino Bhakta on 12-27-2023 Appearance (U) Cloudy Critically abnormal Clear [facility] Comment on above: Order Comment: Name Collection Type:: Clean-Voided Midstream Performed By: #### O B(GUAIAC) #### [address] Urine culture routineOrdered By: Bernardino Bhakta on 12-27-2023 Bacteria identified Cx Nom (U) 2 Days [facility] Urobilinogen Test strip (U) [Mass/Vol]Ordered By: Bernardino Bhakta on 12-27-2023 Urobilinogen (U) [Mass/Vol] Normal mg/dL Normal [facility] XR chest 1V portableon 12-26 XR chest 1V portable [facility] [place] [address] XRay Report Signed Patient: Bhupendra Rubi MR#: [id number] 306 : 1950 Acct:[id number] Age/Sex: 73 / F ADM Date: 12/27/23 Loc: ER Room: Type: [facility] ER Attending Dr: Copies to: Bernardino Bhakta [...] CT of the chest. Impression dictated by: dAam Berger M.D.12/27/2023 12:16 PM Dictation Location: [place] [address] Transcribed By: [facility] 12/27/23 1216 Dictated By: Adam Berger DO 12/27/23 1204 Signed By: 12/27/23 1216 Normal [facility] pH of Urine by Test stripOrd ered By: Bernardino Bhakta on 12-27-2023 pH (U) 6.0 [pH] Normal 5.0-9.0 [facility] Comment on above: Order Comment: Name Collection Type:: Clean-Voided Midstream Performed By: #### O B(GUAIAC) #### [facility] [address] [place] [id number] [facility] Provider Letteron 06-23-2023 Provider Letter (Inserted Image. Es ble to display) June 23, 2023 BHUPENDRA RUBI [address] [place] [id number] : 1950 Dear Bhupendra, We are reaching out to inform you that Dr. Turner is now approved and credentialed with your insurance. Please call our office at your earliest convenience to schedule the EGD that was recommended at your last visit. Thank you for your prompt attention to this matter. Sincerely, [facility] [phone] Normal [facility] CHEMISTRYOrdered By: SYSTEM SYSTEM on 01-01-2023 [...] 61 mL/min/1.73 m2 Normal >=59mL/min /1.73 m2 [facility] Chem S Globulin (S) [Mass/Vol] 3.5 g/dL Normal 1.4 - 4.0 gm/dL [facility] Remisol Glucose [Mass/Vol] 100 mg/dL Normal 55 [...] 15.0 % High 10.9 - 14.2 % [facility] Hematocrit (Bld) [Volume fraction] 45.9 % Normal 34.0 - 46.0 % [facility] Hemoglobin (Bld) [Mass/Vol] 14.9 g/dL Normal 12.0 - 16.0 gm/dL [facility] MCH (RBC) [Entitic mass] 29.2 pg Normal 27. 0 - 34.0 pg [facility] MCHC (RBC) [Mass/Vol] 32.6 g/dL Normal 31.4 - 36.0 gm/dL [facility] MCV (RBC) [Entitic vol] 89.8 fL Normal 80.0 - 100.0 fL [facility] Platelet mean volume (Bld) [Entitic vol] 8.4 fL Normal 6.4 - 10.8 fL [facility] Platelets (Bld) [#/Vol] 408.0 E9/L Normal 150. 0 - 500.0 E9/L [facility] RBC (Bld) [#/Vol] 5.1 E12/L Normal 4.3 - 5.9 E12/L [facility] WBC corrected for nucl RBC Auto (Bld) [#/Vol] 13.6 E9/L High 4.0 - 11.0 E9/L [facility] CBC AUTO DIFFon 11-11-2022 BASO # 0.1 103/ul Normal 0.0-0.1 [facility] Comment on above: Performed By: #### C BC #### [facility] [address] [place] [address] Dr. Anisa Gomez Basophils/100 WBC (Bld) 0.5 % Normal 0.2-2.0 [facility] Comment on above: Performed By: #### C BC #### [facility] [address] [place] [address] Dr. Anisa Gomez EO # 0.1 103/ul Normal 0.0-0.7 [facility] Comment on above: Performed By: #### C BC #### [facility] [address] [place] [address] Dr. Anisa Gomez Eosinophils/100 WBC (Bld) 0.8 % Critically low 0.9-7.0 [facility] Comment on above: Performed By: #### C BC #### [facility] [address] [place] [address] Dr. Anisa Gomez Erythrocyte distribution width (RBC) [Ratio] 15.2 % Critically high 11.0-15.0 [facility] Comment on above: Performed By: #### C BC #### [facility] [address] [place] [address] Dr. Anisa Gomez Hematocrit (Bld) [Volume fraction] 48.8 % Critically high 36.0-48.0 [facility] Comment on above: Performed By: #### C BC #### [facility] [address] [place] [address] Dr. Anisa Gomez Hemoglobin (Bld) [Mass/Vol] 15.8 g/dL Normal 12.0-16.0 [facility] Comment on above: Performed By: #### C BC #### [facility] [address] [place] [address] Dr. Anisa Gomez IG # 0.03 10e3/ul Normal 0.00-0.03 [facility] Comment on above: Performed By: #### C BC #### [facility] [address] [place] [address] Dr. Anisa Gomez IG % 0.2 % Normal 0.0-0.5 [facility] Comment on above: Performed By: #### C BC #### [facility] [address] [place] [address] Dr. Anisa Gomez LYMPH # 3.2 103/ul Normal 1.2-3.8 [facility] Comment on above: Performed By: #### C BC #### [facility] [address] [place] [address] Dr. Anisa Gomez Lymphocytes/100 WBC (Bld) 21.9 % Normal 20.5-60.0 [facility] Comment on above: Performed By: #### C BC #### [facility] [address] [place] [address] Dr. Anisa Gomez MANUAL DIFF REQ NO Normal [facility] Comment on above: Performed By: #### C BC #### [facility] [address] [place] [address] Dr. Anisa Gomez MCH (RBC) [Entitic mass] 29.9 pg Normal 26.7-34.0 [facility] Comment on above: Performed By: #### C BC #### [facility] [address] [place] [address] Dr. Anisa Gomez MCHC (RBC) [Mass/Vol] 32.4 g/dL Normal 29.9-35.2 [facility] Comment on above: Performed By: #### C BC #### [facility] [address] [place] [address] Dr. Anisa Gomez MCV (RBC) [Entitic vol] 92.2 fL Normal 81.0-99.0 [facility] Comment on above: Performed By: #### C BC #### [facility] [address] [place] [address] Dr. Anisa Gomez MONO # 1.2 103/ul Critically high 0.3-0.8 [facility] Comment on above: Performed By: #### C BC #### [facility] [address] [place] [address] Dr. Anisa Gomez Monocytes/100 WBC (Bld) 8.0 % Normal 1.7-12.0 [facility] Comment on above: Performed By: #### C BC #### [facility] [address] [place] [address] Dr. Anisa Gomez NEUT # 9.9 103/ul Critically high 1.4-6.5 [facility] Comment on above: Performed By: #### C BC #### [facility] [address] [place] [address] Dr. Anisa Gomez Neutrophils/100 WBC (Bld) 68.6 % Normal 43.0-75.0 [facility] Comment on above: Performed By: #### C BC #### [facility] [address] [place] [address] Dr. Anisa Gomez Platelet mean volume (Bld) [Entitic vol] 10.6 fL Normal 9.5-13.5 [facility] Comment on above: Performed By: #### C BC #### [facility] [address] [place] [address] Dr. Anisa Gomez PLT 336 103/ul Normal 150-450 [facility] Comment on above: Performed By: #### C BC #### [facility] [address] [place] [address] Dr. Anisa Gomez RBC 5.29 106/ul Normal 4.20-5.40 [facility] Comment on above: Performed By: #### C BC #### [facility] [facility] [address] [place] [address] Dr. Anisa Gomez WBC 14.4 103/ul Critically high 4.0-11.0 [facility] Comment on above: Performed By: #### C BC #### [facility] [address] [place] [address] Dr. Anisa Gomez CTA ABD/PELVIS WO W [...] by: LAYNE HO Date: 2022-11-11 18:26 Normal [facility] CTA CHEST WO W CONon [...] atherosclerosis. Trace pericardial effusion Electronically authenticated by: [facility] Date: 2022-11-11 17:48 Normal [facility] ER URINE PROFILEon 3 Bilirubin Ql (U) Negative Normal NEGATIVE [facility] Comment on above: Performed By: #### E RUR ####[facility] [address] [place], [place] [address]Dr. Cherryann Gomez Clarity (U) CLEAR Normal CLEAR [facility] Comment on above: Performed By: #### E RUR ####[facility] [address] [place], [place] [address]Dr. Anisa Gomez Color (U) LT. YELLOW Normal YELLOW [facility] Comment on above: Performed By: #### E RUR ####[facility] [address] [place], [place] [address]Dr. Anisa Gomez ERUAHD A micrscopic examina tion will be performed if indicated. Normal [facility] Comment on above: Performed By: #### E RUR ####[facility] [address]ox[address] [place], [place] [address]Dr. Cherryann Gomez Glucose Ql (U) Negative Normal NEGATIVE [facility] Comment on above: Performed By: #### E RUR ####[facility] Cedywwmdhf[address] [place], [place] [address]Dr. Cherryann Gomez Hemoglobin Ql (U) Negative Normal NEGATIVE [facility] Comment on above: Performed By: #### E RUR ####[facility] [address]xh[address] [place], [place] [address]Dr. Anisa Gomez Ketones Ql (U) Negative Normal NEGATIVE [facility] Comment on above: Performed By: #### E RUR ####[facility] [address]ncprnbief[address] [place], [place] [address]Dr. Cherrylan Gomez LEUKOCYTES Negative Normal NEGATIVE [facility] Comment on above: Performed By: #### E RUR ####[facility] Qxsibyqhrx[address] [place], [place] [address]Dr. Cherrylan Gomez Nitrite Ql (U) Negative Normal NEGATIVE [facility] Comment on above: Performed By: #### E RUR ####[facility] [address] [place] [address]Dr. Anisa Gomez pH (U) 5.5 [pH] Normal 5-9 [facility] Comment on above: Performed By: #### E RUR ####[facility] [address] [place] [address]DrCathy Gomez SPEC GRAVITY >=1.030 Abnormal 1.005-<=1. 025 [facility] Comment on above: Performed By: #### E RUR ####[facility] N[address]zy[address] [place], [place] [address]Dr. Anisa Gomez UA PROTEIN Negative Normal NEGATIVE/ TRACE [facility] Comment on above: Performed By: #### E RUR ####[facility] H[address] [place], [place] [address]Dr. Anisa Gomez UR MICRO IND NOT INDICATED Normal [facility] Comment on above: Performed By: #### E RUR ####[facility] Eaeajfcbqx[address] [place], [place] [address]Dr. Anisa Gomez Urobilinogen Qn (U) 0.2 {Agustin'U}/dL Normal 0.2 - 1. 0 [facility] Comment on above: Performed By: #### E RUR ####[facility] Jac[address] [place], [place] [address]DrCathy Gomez LIPASEon 11-11-2022 Lipase [Catalytic activity/Vol] 100.0 U/L Normal 73.0-393.0 [facility] Comment on above: Performed By: #### JANET BOOTH #### [facility] [address] [place] [address] Dr. Anisa Gomez LIVER PROFILEon 11-11-2022 Albumin [Mass/Vol] 3.8 g/dL Normal 3.4-5.0 [facility] Comment on above: Performed By: #### JANET BOOTH #### [facility] [address] [place] [address] Dr. Anisa Gomez Albumin/Globulin [Mass ratio] 0.9 {ratio} Normal [facility] Comment on above: Performed By: #### L IVER, LIPA #### [facility] [address] [address] [address] Anisa Gomez ALP [Catalytic activity/Vol] 107 U/L Normal 46-116 [facility] Comment on above: Performed By: #### L IVER, LIPA #### [facility] [address] [address] [address] Anisa Gomez ALT [Catalytic activity/Vol] 25 U/L Normal 14-59 [facility] Comment on above: Performed By: #### L IVER, LIPA #### [facility] [address] [address] [address] Anisa Gomez AST [Catalytic activity/Vol] 25 U/L Normal 15-37 [facility] Comment on above: Performed By: #### L IVER, LIPA #### [facility] [address] [place] [address] Dr. Anisa Gomez BILI, CONJUGATED 0.1 mg/dL Normal 0.0-0.2 [facility] Comment on above: Performed By: #### L IVER, LIPA #### [facility] [address] [address] [address] Anisa Gomez Bilirubin [Mass/Vol] 0.5 mg/dL Normal 0.2-1.0 [facility] Comment on above: Performed By: #### L IVER, LIPA #### [facility] [address] [place] [address] Dr. Anisa Gomez Globulin (S) [Mass/Vol] 4.0 g/dL Normal T [facility] Comment on above: Performed By: #### L IVER, LIPA #### [facility] [address] [place] [address] Dr. Anisa Gomez Protein [Mass/Vol] 7.8 g/dL Normal 6.4-8.2 [facility] Comment on above: Performed By: #### L IVER, LIPA #### [facility] [address] [place] [address] Dr. Anisa Gomez PROF CHEM 8 (BAS METB)on Anion gap [Moles/Vol] 13.2 mmol/L Normal Th [facility] Comment on above: Performed By: #### B MP #### [facility] [address] [address] [address] Anisa Gomez Calcium [Mass/Vol] 9.4 mg/dL Normal 8.5-10.1 [facility] Comment on above: Performed By: #### B MP #### [facility] [address] [address] [address] Anisa Gomez Chloride [Moles/Vol] 103 mmol/L Normal 98-107 [facility] Comment on above: Performed By: #### B MP #### [facility] [address] [address] [address] Anisa Gomez CO2 [Moles/Vol] 29.3 mmol/L Normal 21.0-32.0 [facility] Comment on above: Performed By: #### B MP #### [facility] [address] [address] [address] Anisa Gomez Creatinine [Mass/Vol] 1.02 mg/dL Normal 0.55-1.02 [facility] Comment on above: Performed By: #### B MP #### [facility] [address] [address] [address] Anisa Gomez EGFR-AF GABONESE 60 mL/min/1.73m2 Normal >=60 Th [facility] Comment on above: Performed By: #### B MP #### [facility] [address] [address] [address] Anisa Gomez EGFR-NON AF GABONESE 54 mL/min/1.73m2 Critically low >=60 [facility] Comment on above: Performed By: #### B MP #### [facility] [address] [address] [address] Anisa Gomez Glucose [Mass/Vol] 102 mg/dL Normal 74-106 [facility] Comment on above: Performed By: #### B MP #### [facility] [address] [address] [address] Anisa Gomez Potassium [Moles/Vol] 4.5 mmol/L Normal 3.5-5.1 [facility] Comment on above: Performed By: #### B MP #### [facility] [address] [place], [place] [address] Dr. Anisa oGmez Sodium [Moles/Vol] 141 mmol/L Normal 136-145 [facility] Comment on above: Performed By: #### B MP #### [facility] [address] [place], [place] [address] Dr. Anisa Gomez Urea nitrogen [Mass/Vol] 16.0 mg/dL Normal 7.0-18.0 [facility] Comment on above: Performed By: #### B MP #### [facility] [address] [place], [place] [address] Dr. Anisa Gomez Urea nitrogen/Creatinine [Mass ratio] 15.7 mg/mg Normal [facility] Comment on above: Performed By: #### B MP #### [facility] [address] [place], [place] [address] CHEST WO CONon [...] is recommended for better evaluation. Normal [facility] HEMOGLOBINon 10-27-2022 Hemoglobin (Bld) [Mass/Vol] 14.5 g/dL Normal 12.0-16.0 [facility] Comment on above: Performed By: #### H GB ####[facility] [address] [place], [place] [address]Mw. Anisa Gomez CT LUNG CANCER SCREENINGon 0 [...] by: ROMEL ALONZO Date: 2022-07-24 17:20 Normal [facility] [place] [facility] MAMM SCREEN 3D BRISSA CADon 07-09-2022 MG MAMM SCREEN 3D BRISSA CAD Patient: BHUPENDRA URBI Exam Date: 07/09/2022 : 1950 Gender:F Ordering : SHAIKH Eddie HORAN . Admission #: [id number] Family : Order #: [id number] CLICK HERE TO VIEW EXAM RADIOLOGY REPORT PROCEDURE: MAMMOGRAM SCREENING 3D BILATERAL CAD COMPARISON: MG MAMM SCREEN BRISSA W CAD, 05/21/2015. MAMM SCREEN BRISSA W CAD, 08/10/2017. INDICATIONS: Screening mammography Calculator Name NCI Breast Cancer Risk Assessment Tool 5 Year Breast Cancer Risk Not Reported. Lifetime Breast Cancer Risk Not Reported. Personal Breast Cancer No Personal Ovarian Cancer No Treatments None Family Cancers None LOCATION: [facility] BREAST COMPOSITION: Heterogeneously dense,which may obscure [...] Alonzo M.D. on 07/25/2022 at 08:51 Normal [facility] CBC AUTO DIFFon 05-07-2022 BASO # 0.1 103/ul Normal 0.0-0.1 [facility] Comment on above: Performed By: #### C BC #### [facility] [address] [address] [address] Anisa Gomez Basophils/100 WBC (Bld) 0.7 % Normal 0.2-2.0 T [facility] Comment on above: Performed By: #### C BC #### [facility] [address] [place] [address] Dr. Anisa Gomez EO # 0.1 103/ul Normal 0.0-0.7 [facility] Comment on above: Performed By: #### C BC #### [facility] [address] [place] [address] Dr. Anisa Gomez Eosinophils/100 WBC (Bld) 0.6 % Critically low 0.9-7.0 [facility] Comment on above: Performed By: #### C BC #### [facility] [address] [place] [address] Dr. Anisa Gomez Erythrocyte distribution width (RBC) [Ratio] 14.9 % Normal 11.0-15.0 [facility] Comment on above: Performed By: #### C BC #### [facility] [address] [place] [address] Dr. Anisa Gomez Hematocrit (Bld) [Volume fraction] 48.4 % Critically high 36.0-48.0 [facility] Comment on above: Performed By: #### C BC #### [facility] [address] [place] [address] Dr. Anisa Gomez Hemoglobin (Bld) [Mass/Vol] 15.6 g/dL Normal 12.0-16.0 [facility] Comment on above: Performed By: #### C BC #### [facility] [address] [place] [address] Dr. Anisa Gomez IG # 0.02 10e3/ul Normal 0.00-0.03 [facility] Comment on above: Performed By: #### C BC #### [facility] [address] [place] [address] Dr. Anisa Gomez IG % 0.2 % Normal 0.0-0.5 [facility] Comment on above: Performed By: #### C BC #### [facility] [address] [place] [address] Dr. Anisa Gomez LYMPH # 2.9 103/ul Normal 1.2-3.8 [facility] Comment on above: Performed By: #### C BC #### [facility] [address] [place] [address] Dr. Anisa Gomez Lymphocytes/100 WBC (Bld) 28.6 % Normal 20.5-60.0 [facility] Comment on above: Performed By: #### C BC #### [facility] [address] [place] [address] Dr. Anisa Gomez MANUAL DIFF REQ NO Normal [facility] Comment on above: Performed By: #### C BC #### [facility] [address] [place] [address] Dr. Anisa Gomez MCH (RBC) [Entitic mass] 29.2 pg Normal 26.7-34.0 [facility] Comment on above: Performed By: #### C BC #### [facility] [address] [place] [address] Dr. Anisa Gomez MCHC (RBC) [Mass/Vol] 32.2 g/dL Normal 29.9-35.2 [facility] Comment on above: Performed By: #### C BC #### [facility] [address] [place] [address] Dr. Anisa Gomez MCV (RBC) [Entitic vol] 90.5 fL Normal 81.0-99.0 [facility] Comment on above: Performed By: #### C BC #### [facility] [address] [place] [address] Dr. Anisa Gomez MONO # 1.0 103/ul Critically high 0.3-0.8 [facility] Comment on above: Performed By: #### C BC #### [facility] [address] [place] [address] Dr. Anisa Gomez Monocytes/100 WBC (Bld) 9.5 % Normal 1.7-12.0 [facility] Comment on above: Performed By: #### C BC #### [facility] [address] [place] [address] Dr. Anisa Gomez NEUT # 6.2 103/ul Normal 1.4-6.5 [facility] Comment on above: Performed By: #### C BC #### [facility] [address] [address] [address] Anisa Gomez Neutrophils/100 WBC (Bld) 60.4 % Normal 43.0-75.0 [facility] Comment on above: Performed By: #### C BC #### [facility] [address] [address] [address] Anisa Gomez Platelet mean volume (Bld) [Entitic vol] 10.1 fL Normal 9.5-13.5 [facility] Comment on above: Performed By: #### C BC #### [facility] [address] [address] [address] Anisa Gomez PLT 403 103/ul Normal 150-450 [facility] Comment on above: Performed By: #### C BC #### [facility] [address] [place] [address] Dr. Anisa Gomez RBC 5.35 106/ul Normal 4.20-5.40 [facility] Comment on above: Performed By: #### C BC #### [facility] [address] [address] [address] Anisa Gomez WBC 10.2 103/ul Normal 4.0-11.0 [facility] Comment on above: Performed By: #### C BC #### [facility] [address] [address] [address] Anisa Gomez LIPID PROFILEon 05-07-2022 CHOL-HDL RATIO NORM SEE BELOW Normal [facility] Comment on above: Result Comment: 3.3 - 4.4 LOW RISK 4.4 - 7.1 AVERAGE RISK 7.1 - 11.0 MODERATE RISK >11.0 HIGH RISK Performed By: #### L IPID, CMP ####[facility] [address] [place] [address]Dr. Anisa Gomez Cholesterol [Mass/Vol] 242 mg/dL Critically high <=200 [facility] Comment on above: Performed By: #### L IPID, CMP ####[facility] [address] [place] [address]Dr. Anisa Gomez Cholesterol in HDL [Mass/Vol] 49 mg/dL Normal 40-60 [facility] Comment on above: Performed By: #### L IPID, CMP ####[facility] [address] [place] [address]Dr. Anisa Gomez Cholesterol in LDL [Mass/Vol] 148.4 mg/dL Normal [facility] Comment on above: Performed By: #### L IPID, CMP ####[facility] [address] [place] [address]Dr. Anisa Gomez Cholesterol.total/Choles terol in HDL [Mass ratio] 4.9 {ratio} Normal [facility] Comment on above: Performed By: #### L IPID, CMP ####[facility] [address] [place] [address]Dr. Anisa Gomez HDL NORMAL > or = 60 mg/dl - LO W CARDIOVASCULAR RISK <40 mg/dl - HIGH CARDIOVASCULAR RISK Normal [facility] Comment on above: Performed By: #### L IPID, CMP ####[facility] [address] [place] [address]Dr. Anisa Gomez LDL CALC NORMAL SEE BELOW Normal [facility] Comment on above: Result Comment: <100 mg/dl OPTIMAL 100 - 129 mg/dl NEAR OR ABOVE OPTIMAL 130 - 159 mg/dl BORDERLINE HIGH 160 - 189 mg/dl HIGH >190 mg/dl VERY HIGH Performed By: #### L IPID, CMP ####[facility] [address] [place] [address]Dr. Anisa Gomez Triglyceride [Mass/Vol] 223 mg/dL Critically high <=150 [facility] Comment on above: Performed By: #### L IPID, CMP ####[facility] [address] [address]Dr. Anisa Gomez VLDL CALC 44.6 mg/dL Normal [facility] Comment on above: Performed By: #### L IPID, CMP ####[facility] [address] [place] [address]Dr. Anisa Gomez PROF 14(COMP METB)on 022 Albumin [Mass/Vol] 3.6 g/dL Normal 3.4-5.0 [facility] Comment on above: Performed By: #### L IPID, CMP ####[facility] [address] [place] [address]Dr. Anisa Gomez Albumin/Globulin [Mass ratio] 1.0 {ratio} Normal [facility] Comment on above: Performed By: #### L IPID, CMP ####[facility] [address] [place] [address]Dr. Anisa Gomez ALP [Catalytic activity/Vol] 95 U/L Normal 46-116 [facility] Comment on above: Performed By: #### L IPID, CMP ####[facility] [address] [place] [address]Dr. Anisa Gomez ALT [Catalytic activity/Vol] 21 U/L Normal 14-59 [facility] Comment on above: Performed By: #### L IPID, CMP ####[facility] [address] [place], [place] [address]Dr. Anisa Gomez Anion gap [Moles/Vol] 6.3 mmol/L Normal [facility] Comment on above: Performed By: #### L IPID, CMP ####[facility] [address] [place], [place] [address]Dr. Anisa Gomez AST [Catalytic activity/Vol] 15 U/L Normal 15-37 [facility] Comment on above: Performed By: #### L IPID, CMP ####[facility] [address] [place] [address]Dr. Anisa Gomez Bilirubin [Mass/Vol] 0.5 mg/dL Normal 0.2-1.0 [facility] Comment on above: Performed By: #### L IPID, CMP ####[facility] [address] [place], [place] [address]Dr. Anisa Goemz Calcium [Mass/Vol] 9.1 mg/dL Normal 8.5-10.1 [facility] Comment on above: Performed By: #### L IPID, CMP ####[facility] [address] [place], [place] [address]Dr. Anisa Gomez Chloride [Moles/Vol] 104 mmol/L Normal 98-107 [facility] Comment on above: Performed By: #### L IPID, CMP ####[facility] [address] [place] [address]Dr. Anisa Gomez CO2 [Moles/Vol] 33.4 mmol/L Critically high 21.0-32.0 [facility] Comment on above: Performed By: #### L IPID, CMP ####[facility] [address] [place], [place] [address]Dr. Anisa Gomez Creatinine [Mass/Vol] 0.90 mg/dL Normal 0.55-1.02 [facility] Comment on above: Performed By: #### L IPID, CMP ####[facility] [address] [place], [place] [address]Dr. Anisa Gomez EGFR-AF GABONESE >60 Normal >=60 [facility] Comment on above: Performed By: #### L IPID, CMP ####[facility] [address] [place], [place] [address]Dr. Anisa Gomez EGFR-NON AF GABONESE >60 Normal >=60 [facility] Comment on above: Performed By: #### L IPID, CMP ####[facility] [address] [place], [place] [address]Dr. Anisa Gomez Globulin (S) [Mass/Vol] 3.7 g/dL Normal T [facility] Comment on above: Performed By: #### L IPID, CMP ####[facility] [address] [place], [place] [address]Dr. Anisa Gomez Glucose [Mass/Vol] 67 mg/dL Critically low 74-106 Th [facility] Comment on above: Performed By: #### L IPID, CMP ####[facility] [address] [place], [place] [address]Dr. Anisa Gomez Potassium [Moles/Vol] 3.7 mmol/L Normal 3.5-5.1 [facility] Comment on above: Performed By: #### L IPID, CMP ####[facility] [address] [place], [place] [address]Dr. Anisa Gomez Protein [Mass/Vol] 7.3 g/dL Normal 6.4-8.2 [facility] Comment on above: Performed By: #### L IPID, CMP ####[facility] [address] [place] [address]Dr. Anisa Gomez Sodium [Moles/Vol] 140 mmol/L Normal 136-145 [facility] Comment on above: Performed By: #### L IPID, CMP ####[facility] [address] [place] [address]Dr. Anisa Gomez Urea nitrogen [Mass/Vol] 13.0 mg/dL Normal 7.0-18.0 [facility] Comment on above: Performed By: #### L IPID, CMP ####[facility] [address] [place] [address]Dr. nAisa Gomez Urea nitrogen/Creatinine [Mass ratio] 14.4 mg/mg Normal [facility] Comment on above: Performed By: #### L IPID, CMP ####[facility] [address] [place] [address]Dr. Anisa Gomez UA RANDOM W/MICROSCOPICon BACTERIA NONE SEEN Normal NONE SEEN [facility] Comment on above: Performed By: #### U AMIC #### [facility] [address] [place] [address] Dr. Anisa Gomez Bilirubin Ql (U) Negative Normal NEGATIVE [facility] Comment on above: Performed By: #### U AMIC #### [facility] [address] [address] [address] Anisa Gomez CAST NONE SEEN Normal NONE SEEN [facility] Comment on above: Performed By: #### U AMIC #### [facility] [address] [address] [address] Anisa Gomez Clarity (U) CLEAR Normal CLEAR [facility] Comment on above: Performed By: #### U AMIC #### [facility] [address] [place] [address] Dr. Anisa Gomez Color (U) YELLOW Normal YELLOW [facility] Comment on above: Performed By: #### U AMIC #### [facility] [address] [address] [address] Anisa Gomez Crystals LM Nom (Urine sed) NONE SEEN Normal NONE SEEN [facility] Comment on above: Performed By: #### U AMIC #### [facility] [address] [address] [address] Anisa Gomez Epithelial cells LM Ql (Urine sed) RARE Normal NONE SEEN /RARE [facility] Comment on above: Performed By: #### U AMIC #### [facility] [address] [address] [address] Anisa Gomez Glucose Ql (U) Negative Normal NEGATIVE [facility] Comment on above: Performed By: #### U AMIC #### [facility] [address] [place] [address] Dr. Anisa Gomez Hemoglobin Ql (U) Negative Normal NEGATIVE [facility] Comment on above: Performed By: #### U AMIC #### [facility] [address] [address] [address] Anisa Gomez Ketones Ql (U) Negative Normal NEGATIVE [facility] Comment on above: Performed By: #### U AMIC #### [facility] [address] [address] [address] Anisa Gomez LEUKOCYTES Negative Normal NEGATIVE [facility] Comment on above: Performed By: #### U AMIC #### [facility] [address] [address] [address] Anisa Gomez MUCOUS NONE SEEN Normal NONE SEEN [facility] Comment on above: Performed By: #### U AMIC #### [facility] [address] [address] [address] Anisa Gomez Nitrite Ql (U) Negative Normal NEGATIVE [facility] Comment on above: Performed By: #### U AMIC #### [facility] [address] [place] [address] Dr. Anisa Gomez pH (U) 7.0 [pH] Normal 5-9 [facility] Comment on above: Performed By: #### U AMIC #### [facility] [address] [address] [address] Anisa Gomez RBC 0-2 Normal 0-2 [facility] Comment on above: Performed By: #### U AMIC #### [facility] [address] [place] [address] Dr. Anisa Gomez SPEC GRAVITY 1.010 Normal 1.005-<=1. 025 [facility] Comment on above: Performed By: #### U AMIC #### [facility] [address] [address] [address] Anisa Gomez UA PROTEIN Negative Normal NEGATIVE/ TRACE [facility] Comment on above: Performed By: #### U AMIC #### [facility] [address] [address] [address] Anisa Gomez Urobilinogen Qn (U) 0.2 {Agustin'U}/dL Normal 0.2 - 1. 0 [facility] Comment on above: Performed By: #### U AMIC #### [facility] [address] [place] [address] Dr. Anisa Gomez WBC 0-2 Abnormal NONE SEEN [facility] Comment on above: Performed By: #### U AMIC #### [facility] [address] [place] [address] Dr. Anisa Gomez Vital Signs Date Time Vital Sign Value Performing Clinician Facility 05-23-2024 10:[id number] Body height 157.5 cm Chris Singh ADA ACCOMMODATION CONSULTANT Work Phone: [facility] 05-23-2024 10:17-050 Body mass index (BMI) [Ratio] 28.9 kg/m2 Chris Singh ADA ACCOMMODATION CONSULTANT Work Phone: [facility] 05-23-2024 10:17-0500 Body temperature 96.8 [degF] Chris Singh ADA ACCOMMODATION CONSULTANT Work Phone: [facility] 05-23-2024 10:17-0500 Body weight 71.67 kg Chris Singh ADA ACCOMMODATION CONSULTANT Work Phone: [facility] 05-23-2024 10:17-0500 Diastolic blood pressure 84 mm[Hg] Chris Singh ADA ACCOMMODATION CONSULTANT Work Phone: [facility] 05-23-2024 10:17-0500 Heart rate 78 /min Chris Singh ADA ACCOMMODATION CONSULTANT Work Phone: [facility] 05-23-2024 10:17-0500 Respiratory rate 16 /min Chris Singh ADA ACCOMMODATION CONSULTANT Work Phone: [facility] 05-23-2024 10:17-0500 SaO2% (BldA) [Mass fraction] 90 % Chris Singh ADA ACCOMMODATION CONSULTANT Work Phone: [facility] 05-23-2024 10:17-0500 Systolic blood pressure 128 mm[Hg] Chris Singh ADA ACCOMMODATION CONSULTANT Work Phone: [facility] 05-11-2024 14:25-0400 Body height 157.48 cm MD Shaikh Horan Work Phone: [facility] 05-11-2024 14:25-0400 Body mass index (BMI) [Ratio] 28.5 kg/m2 MD Shaikh Horan Work Phone: [facility] 05-11-2024 14:25-0400 Body temperature 97.8 [degF] MD Shaikh Horan Work Phone: [facility] 05-11-2024 14:25-0400 Body weight 70.76 kg MD Shaikh Horan Work Phone: [facility] 05-11-2024 14:25-0400 Diastolic blood pressure 78 mm[Hg] MD Shaikh Horan Work Phone: [facility] 05-11-2024 14:25-0400 Heart rate 89 /min MD Shaikh Horan Work Phone: [facility] 05-11-2024 14:25-0400 Respiratory rate 16 /min MD Shaikh Horan Work Phone: [facility] 05-11-2024 14:25-0400 SaO2% (BldA) [Mass fraction] 95 % MD Shaikh Horan Work Phone: [facility] 05-11-2024 14:25-0400 Systolic blood pressure 134 mm[Hg] MD Shaikh Horna Work Phone: [facility] 05-10-2024 14:01-0400 Body height 157.5 cm Javier Villanueva [employer] Work Phone: [facility] 05-10-2024 14:01-0400 Body mass index (BMI) [Ratio] 27.62 kg/m2 Javier Villanueva [employer] Work Phone: [facility] 05-10-2024 14:01-0400 Body weight 68.49 kg Javier [employer] Work Phone: [facility] 05-10-2024 14:01-0400 Diastolic blood pressure 90 mm[Hg] Javier Villanueva [employer] Work Phone: [facility] 05-10-2024 14:01-0400 Systolic blood pressure 130 mm[Hg] Javier Villanueva [employer] Work Phone: [facility] 03-25-2024 11:45-0400 Diastolic blood pressure 90 mm[Hg] MD Shaikh Horan Work Phone: [facility] 03-25-2024 11:45-0400 Heart rate 85 /min MD Shaikh Horan Work Phone: [facility] 03-25-2024 11:45-0400 Respiratory rate 20 /min MD Shaikh Horan Work Phone: [facility] 03-25-2024 11:45-0400 SaO2% (BldA) [Mass fraction] 95 % MD Shaikh Horan Work Phone: [facility] 03-25-2024 11:45-0400 Systolic blood pressure 152 mm[Hg] MD Shaikh Hroan Work Phone: [facility] 03-25-2024 10:06-0400 Body height 157.48 cm MD Shaikh Horan Work Phone: [facility] 03-25-2024 10:06-0400 Body weight 65.77 kg MD Shaikh Horan Work Phone: [facility] 12-30-2023 09:35-0400 Body height 157.48 cm MD Shaikh Horan Work Phone: [facility] 12-30-2023 09:35-0400 Body mass index (BMI) [Ratio] 27.4 kg/m2 MD Shaikh Horan Work Phone: [facility] 12-30-2023 09:35-0400 Body temperature 97.3 [degF] MD Shaikh Horan Work Phone: [facility] 12-30-2023 09:35-0400 Body weight 68.03 kg MD Shaikh Horan Work Phone: [facility] 12-30-2023 09:35-0400 Diastolic blood pressure 50 mm[Hg] MD Shaikh Horan Work Phone: [facility] 12-30-2023 09:35-0400 Heart rate 106 /min MD Shaikh Horan Work Phone: [facility] 12-30-2023 09:35-0400 Respiratory rate 18 /min MD Shaikh Horan Work Phone: [facility] 12-30-2023 09:35-0400 SaO2% (BldA) [Mass fraction] 85 % MD Shaikh Horan Work Phone: [facility] 12-30-2023 09:35-0400 Systolic blood pressure 76 mm[Hg] MD Shaikh Horan Work Phone: [facility] 12-27-2023 15:46-0400 Diastolic blood pressure 57 mm[Hg] MD Shaikh Horan Work Phone: [facility] 12-27-2023 15:46-0400 Heart rate 65 /min MD Shaikh Horan Work Phone: [facility] 12-27-2023 15:46-0400 Respiratory rate 20 /min MD Shaikh Horan Work Phone: [facility] 12-27-2023 15:46-0400 Systolic blood pressure 112 mm[Hg] MD Shaikh Horan Work Phone: [facility] 12-27-2023 14:59-0400 Inhaled oxygen flow rate 2 L/min MD Shaikh Horan Work Phone: [facility] 12-27-2023 14:59-0400 SaO2% (BldA) [Mass fraction] 92 % MD Shaikh Horan Work Phone: [facility] 12-27-2023 11:20-0400 Body temperature 97.7 [degF] MD Shaikh Horan Work Phone: [facility] 12-27-2023 10:48-0400 Body height 157.48 cm MD Shaikh Horan Work Phone: [facility] 12-27-2023 10:48-0400 Body weight 70.8 kg MD Shaikh Horan Work Phone: [facility] 03-25-2023 10:00-0400 Body height 157.48 cm Nigel Valladares Other [employer] Other 03-25-2023 10:00-0400 Body mass index (BMI) [Ratio] 27.43 kg/m2 Nigel Jacquelyn Other [employer] Other 03-25-2023 10:00-0400 Body temperature 97.2 [degF] Nigel Jacquelyn Other [employer] Other 03-25-2023 10:00-0400 Body weight 68.04 kg Nigel Jacquelyn Other [employer] Other 03-25-2023 10:00-0400 Diastolic blood pressure 82 mm[Hg] Nigel Jacquelyn Other [employer] Other 03-25-2023 10:00-0400 SaO2% (BldA) [Mass fraction] 91 % Nigel Jacquelyn Other [employer] Other 03-25-2023 10:00-0400 Systolic blood pressure 158 mm[Hg] Nigel Becerraeleanor Other [employer] Other 02-09-2023 11:00-0400 Body height 157.48 cm Cherelle Bautista Other [employer] Other 02-09-2023 11:00-0400 Body mass index (BMI) [Ratio] 27.43 kg/m2 Cherelle Bautista Other [employer] Other 02-09-2023 11:00-0400 Body temperature 97.6 [degF] Cherelle Bautista Other [employer] Other 02-09-2023 11:00-0400 Body weight 68.04 kg Cherelle Bautista Other [employer] Other 02-09-2023 11:00-0400 Diastolic blood pressure 74 mm[Hg] Cherelle Bautista Other [employer] Other 02-09-2023 11:00-0400 SaO2% (BldA) [Mass fraction] 92 % Cherelle Bautista Other [employer] Other 02-09-2023 11:00-0400 Systolic blood pressure 122 mm[Hg] Cherelle Bautista Other [employer] [facility] [employer] Other 12-24-2022 10:00-0400 Diastolic blood pressure 86 mm[Hg] Brigette Esparzametz [facility] 12-24-2022 10:00-0400 Mean blood pressure 106 mm[Hg] Brigette Esparzametz [facility] 12-24-2022 10:00-0400 Systolic blood pressure 146 mm[Hg] Brigette Lianet [facility] 12-24-2022 09:57-0400 Blood Pressure Location Brigette Lianet [facility] 12-24-2022 09:57-0400 Body temperature 97.52 [degF] Brigette Esparzametz [facility] 12-24-2022 09:57-0400 Diastolic blood pressure 82 mm[Hg] Brigette Lianet [facility] 12-24-2022 09:57-0400 Heart rate 86 /min Brigette Lianet [facility] 12-24-2022 09:57-0400 Systolic blood pressure 150 mm[Hg] Brigette Lianet [facility] Encounters Encounter Date Encounter Type Care Provider Facility Start: 05-31-2024 End: 05-31-2024 Office outpatient visit 15 minutes Javier Villanueva DO Work Phone: [facility] Comment on above: 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) Start: 05-31-2024 End: 05-31-2024 ambulatory JAVIER VILLANUEVA Not Available Start: 05-24-2024 End: 05-26-2024 Clinisync Result Encounter Javier Villanueva DO Work Phone: [facility] Unsolicited Start: 05-24-2024 End: 05-26-2024 Clinisync Result Encounter Javier Villanueva DO Work Phone: [facility] Unsolicited Start: 05-23-2024 End: 05-23-2024 Bamboo flowsheet Chris Singh ADA ACCOMMODATION CONSULTANT Work Phone: [facility] Start: 05-23-2024 End: 05-23-2024 Bamboo flowsheet Chris Singh ADA ACCOMMODATION CONSULTANT Work Phone: [facility] Start: 05-23-2024 End: 05-23-2024 Office outpatient visit 15 minutes Chris Singh ADA ACCOMMODATION CONSULTANT Work Phone: [facility] Comment on above: Mass of left lung (P rimary Dx) Start: 05-23-2024 End: 05-23-2024 ambulatory CHRIS SINGH Not Available Start: 05-18-2024 End: 05-18-2024 ambulatory [facility] Start: 05-18-2024 End: 05-18-2024 ambulatory [facility] Start: 05-11-2024 End: 05-11-2024 Patient encounter procedure MD Shaikh Horan [facility] Work Phone: Start: 05-11-2024 End: 05-11-2024 ambulatory MD Shaikh Horan Work Phone: [facility] Work Phone: Start: 05-10-2024 End: 05-10-2024 Office outpatient new 45 minutes Javier Villanueva DO Work Phone: [facility] Comment on above: Carcinoma in situ of ascending colon Start: 05-10-2024 End: 05-10-2024 ambulatory JAVIER VILLANUEVA Not Available Start: 05-02-2024 End: 05-02-2024 Refill Chris Samantha ADA ACCOMMODATION CONSULTANT Work Phone: [facility] Comment on above: Gastroesophageal ref lux disease without esophagitis Start: 04-28-2024 ambulatory DIANA [facility]obar of [facility] Start: 04-21-2024 End: 04-21-2024 Patient encounter procedure MD Shaikh Horan Work Phone: [facility]CT Scan [facility] [place] Work Phone: Start: 04-21-2024 End: 04-21-2024 ambulatory MD Shaikh Horan Work Phone: [facility] Work Phone: Start: 04-06-2024 ambulatory MD Shaikh Key kovacs Work Phone: [facility] Work Phone: Start: 04-06-2024 Non-patient / Non-visit MD Reynaldo Horan Work Phone: [facility] Work Phone: Start: 03-25-2024 Non-patient / Non-visit MD Reynaldo Horan Work Phone: [facility] Gastroenterology Work Phone: Start: 03-25-2024 End: 03-25-2024 Admission to same day surgery center MD Shaikh Horan Work Phone: [facility]-Dig[facility] Work Phone: Start: 03-25-2024 End: 03-25-2024 ambulatory MD Shaikh Horan Work Phone: [facility] Work Phone: Start: 03-24-2024 End: 03-24-2024 ambulatory CHRIS SINGH Not Available Start: 03-23-2024 End: 03-23-2024 [facility] Start: 03-09-2024 End: 03-09-2024 ambulatory MD Shaikh Horan Work Phone: [facility] Work Phone: Start: 03-09-2024 End: 03-09-2024 Departed Referred MD Shaikh Horan Work Phone: [facility]-LAB Path Spec [facility] Start: 03-01-2024 End: 03-01-2024 ambulatory SHAIKH JOSHGERMÁN Facility:[facility] Start: 03-01-2024 End: 03-01-2024 Patient encounter procedure rAden De Leon [facility] Start: 02-23-2024 Non-patient / Non-visit MD Reynaldo Horan Work Phone: [facility] Work Phone: Start: 02-22-2024 End: 02-22-2024 ambulatory CHRIS SINGH Not Available Start: 02-19-2024 ambulatory HURTADO AUNG Facility: [facility] Start: 01-04-2024 End: 01-04-2024 ambulatory SHAIKH EPIMaximiliano Not Available Start: 12-30-2023 End: 12-30-2023 Patient encounter procedure MD Shaikh Horan Work Phone: [facility] Work Phone: Start: 12-30-2023 End: 12-30-2023 ambulatory MD Shaikh Horan Work Phone: [facility] Work Phone: Start: 12-27-2023 End: 12-27-2023 Emergency department patient visit MD Shaikh Horan Work Phone: [facility]-Emergency Room Work Phone: Start: 11-09-2023 End: 11-09-2023 ambulatory SHAIKH AUNG Not Available Start: 10-12-2023 End: 10-12-2023 ambulatory SHAIKH AUNG Not Available Start: 08-20-2023 Orders Only Shaikh Aung FARFAN Work Phone: [facility] Comment on above: RLS (restless legs s yndrome) (Primary Dx); Moderate COPD (chronic obstructive pulmonary disease) ([facility]) Start: 07-09-2023 Patient encounter procedure Shaikh Aung FARFAN Work Phone: [facility] Start: 07-09-2023 End: 07-09-2023 ambulatory SHAIKH AUNG Not Available Start: 03-25-2023 End: 03-25-2023 ambulatory Nigel Valladares Other [employer] Other Start: 03-25-2023 Office outpatient vi sit [address] [facility] Vascular Surgery Start: 02-09-2023 End: 02-09-2023 ambulatory Cherelle Michele Other [employer] Other Start: 02-09-2023 FQ visit new patient Cherelle Singhingrid grissom [facility] Start: 01-07-2023 End: 01-07-2023 Patient encounter procedure [facility] Start: 01-01-2023 End: 01-01-2023 Patient encounter procedure [facility] Start: 12-29-2022 End: 12-29-2022 Patient encounter procedure [facility] Start: 12-24-2022 End: 12-24-2022 Patient encounter procedure [facility] Start: 12-24-2022 End: 02-19-2023 Pre-admission assessment [facility] Start: 12-24-2022 End: 12-24-2022 Patient encounter procedure Brigette Martini [facility] Start: 11-11-2022 End: 11-11-2022 ambulatory SHAIKH Anju HORAN Facility:[facility] Start: 10-27-2022 End: 10-28-2022 ambulatory LEIGH THOMPSON . Facility:[facility] Start: 09-01-2022 End: 09-01-[address] ARMANDO WESTON . Facility:[facility] Start: 07-24-2022 End: 07-25-2022 ambulatory HURTADO H FAWWAD Facility:[facility] Start: 07-14-2022 ambulatory HURTADO H FAWWAD Facilit y:[facility] Start: 07-09-2022 End: 07-10-2022 ambulatory HURTADO H FAWWAD Facility:[facility] Start: 07-04-2022 ambulatory HURTADO H FAWWAD Facilit y:[facility] Start: 06-09-2022 End: 06-09-2022 Patient encounter procedure Armando WESTON [facility] Start: 05-07-2022 End: 05-08-2022 ambulatory SHAIKH Anju HORAN Facility:[facility] Procedures Date Procedure Procedure Detail Performing Clinician Start: 05-24-2024 [facility]OLO [facility] REFERENCE LAB CONSULT Javier Villanueva DO Work Phone: Start: 04-21-2024 Carcinoembryonic antigen cea Shaikh Aung Comment on above: Result Comment: Seri al tumor marker results determined by assays using different manufacturers or methods may not be comparable. [facility] instrument technologist and method: [employer] D[employer], 2 SITE IMMUNOENZYMATIC ?SANDWICH? ASSAY. PERFORMED BY: [place] [address] PATHOLOGIST RN PLACEMENT JENNIFER ALANIZ M.D. Performed By: #### C EA #### [address] Start: 04-21-2024 Computed tomography of abdomen [...] on above: Result Comment: PERF ORMED BY: [facility] [address] [place] [address] PATHOLOGIST RN PLACEMENT JENNIFER ALANIZ M.D. Start: 12-27-2023 CT angiography [...] ant neoplasm of colon [facility] Start: 04-12-2026 Screening for malign ant neoplasm of colon [facility] Start: 08-01-2024 End: 08-01-2024 Patient encounter procedure 08/01/2024 10:30 AM EST Office Visit [facility] [address] [place] [address] Chris Singh NP [address] [place] [address] [facility] Start: 07-09-2024 Medicare Annual Well ness (AWV) Medicare Annual Wellness (AWV) [facility] Start: 06-29-2024 End: 06-29-2024 Patient encounter procedure 06/29/2024 9:45 AM EST Office [facility] [address] [place] [id number] Javier Villanueva DO [address] [place] [address] [facility] Start: 06-23-2024 End: 06-23-2024 Patient encounter procedure 06/23/2024 10:00 AM EST Office Visit [facility] [address] [place] [address] Chris Singh NP [address] [place] [address] [facility] Start: 05-31-2024 End: 05-31-2024 Patient encounter procedure 05/31/2024 10:30 AM EST [facility] [address] [place] [phone] Javier Villanueva, DO [address] [place] [address] [facility] Start: 05-03-2024 End: 05-03-2024 Patient encounter procedure 05/03/2024 2:00 PM EDT Consult [facility] [address] [place] [phone] Javier Villanueva, DO [address] [place] [address] [facility] Start: 04-06-2024 Patient referral [facility] Work Phone: Start: 03-25-2024 [facility] Start: 03-13-2024 Influenza vaccination Influenz a Vaccine (#1) [facility] Start: 01-10-2024 Influenza vaccination Influenz a Vaccine (#1) [facility] Comment on above: Postponed from 03/13 (Patient Refused) Start: 12-27-2023 Bacteria identified in Blood by Culture [facility] Start: 12-27-2023 Bacteria identified in Urine by Culture [facility] Start: 12-27-2023 Blood culture for bacteria, including anaerobic screen Blood Culture [facility] Start: 10-08-2023 End: 10-08-2023 Patient encounter procedure 10/08/2023 2:00 PM EDT Office Visit [facility] [address] [place] [address] Shaikh Horan MD [address] [place] [id number] [facility] Start: 07-03-2023 Screening for malign ant neoplasm of breast Mammogram [facility] Start: 1950 Screening for malign ant neoplasm of colon [facility] Patient Education [facility] Work Phone: Patient referral [facility] Work Phone: US Thoracic and abdominal aorta [facility] Immunizations Immunization Date Immunization Notes Care Provider Fa cility 07-09-2022 pneumococcal 20-ananya nt conjugate vaccine Brigette Martini [facility] 07-03-2022 pneumococcal conjuga te vaccine, 13 valent Brigette Martini [facility] Payers Date Payer Category Payer Medicare (Managed Care) RAMA Wilburn [employer] [id number] 2023 Private Health Insurance [id number] 2023 Private Health Insurance [id number] 2022 Unknown [employer] [id number] 2022-Present [address] [place] JEAN [id number] 2020 Unknown [id number] Self-pay 1950 Unknown [id number] 2.16.840.1.364014.3.579. 2.593 1952 Unknown [id number] 2.16.840.1.148255.3.579. 2.593 1952 Unknown [id number] 2.16.840.1.527542.3.579. 2.593 1952 Unknown [id number] 2.16.840.1.699991.3.579. 2.593 1952 Unknown [id number] 2.16.840.1.316326.3.579. 2.593 1952 Unknown [id number] 2.16.840.1.908615.3.579. 2.593 1952 Unknown [id number] 2.16.840.1.390533.3.579. 2.593 1952 Unknown [id number] 2.16.840.1.262786.3.579. 2.593 1952 Unknown [id number] 2.16.840.1.959693.3.579. 2.727 1952 Unknown [id number] 2.16.840.1.282909.3.579. 2.727 1952 Unknown [id number] 2.16.840.1.534351.3.579. 2.1259 1952 Unknown [id number] 2.16.840.1.916858.3.579. 2.125 1952 Unknown [id number] 2.16.840.1.051518.3.579. 2.1258 1952 Unknown [id number] 2.16.840.1.544289.3.579. 2.1258 1952 Unknown [id number] 2.16.840.1.211316.3.579. 2.1258 1952 Unknown [id number] 2.16.840.1.402913.3.579. 2.1258 1952 Unknown [id number] 2..840.1.608558.3.579. 2.1258 1952 Unknown [id number] 2..840.1.646093.3.579. 2.1258 1952 Unknown [id number] 2.840.1.330826.3.579. 2.1258 Medicare [employer] MCR PFFS [id number] Medicare Medicare [id number] Unknown [id number] 2.840.1.363302.3.579. 2.531 Unknown [id number] 2.840.1.389091.3.579. 2.531 Unknown [id number] 2.840.1.030493.3.579. 2.531 Unknown [id number] 2.16840.1.510299.3.579. 2.531 Unknown [id number] 2.16840.1.784048.3.579. 2.531 Unknown [id number] 2.16.840.1.855684.3.579. 2.531 Unknown [id number] 2.840.1.983607.3.579. 2.531 Social History Date Type Detail Facility Tobacco smoking status [facility] Start: 07-09-2023 End: 12-08-2023 Sex Assigned At Female [facility] Start: 12-24-2022 Tobacco smoking status Heavy t obacco smoker (finding) [facility] Tobacco smoking status Never [facility] Start: 07-09-2023 Tobacco smoking stat us [facility] Smokes tobacco daily [facility] End: 12-28-2023 [...] Start: 1950 Sex Assigned At Female [facility] Start: 12-27-2023 End: 12-28-2023 Tobacco smoking status NHIS Smoker (finding) [facility] Start: 01-04-2024 End: 03-25-2024 Tobacco smoking status [facility] Ex-smoker (finding) [facility] History of tobacco use Passive smoker [facility] [...] Not at all [facility] (I/We) worried wheth er (my/our) food would run out before (I/we) got money to buy more. Never true [facility] Goals Date Patient Goal Desired Activity /State Functional Status Date Assessment Result Facility 12-24-2022 Functional Status N/A [facility] Clinical Notes 06-09-2022 to 05-31-2024 Javier Villanueva, DO - 05/31/2024 10:30 AM Ghassan Singh, ADA ACCOMMODATION CONSULTANT - 05/31/2024 9:44 AM KORINABradelaide Singh, ADA ACCOMMODATION CONSULTANT - 05/23/2024 10:30 AM ESTPatient Instructions Note Date & Type Note Facility 05-31-2024 History of Present illness Narrative Images from the original note were not included. Bhupendra Rubi 1950 Bhupendra Rubi is a 73 y.o. female presents with chief complaint of Follow-up HPI: HPI patient had her lung biopsy. She is waiting for results on that. She is scheduled to have her repeat colonoscopy on June 21. She is having that done in [place]. She has not having any abdominal pain. She has not having any blood in his stool. SUBJECTIVE: MEDICATIONS: ALLERGIES Current Outpatient Medications Medication Instructions albuterol HFA 90 mcg/act inhaler 2 puffs, Inhalation, Every 4 hours PRN atorvastatin (LIPITOR) 80 mg, Oral, Daily Yqlwpnq-Vzbxiwdlacg-Aansjgmjit (Breztri Aerosphere) 160-9-4.8 MCG/ACT aerosol 2 puffs, Inhalation, 2 times daily ezetimibe (ZETIA) 10 mg, Oral, Daily fenofibrate (TRICOR) 48 mg, Oral, Daily gabapentin (NEURONTIN) 300 mg, [...] (CMS/HCC) CT chest done in 11/02 by Pulkasie that showed AAA 2.3 cm with possible [...] Types: Cigarettes Quit date: 12/28/2023 Years since quittin.4 Passive exposure: Current Smokeless tobacco: Never Vaping [...] back pain. Skin: Negative for wound. Neurological: Negative for seizures. OBJECTIVE: Visit Vitals OB Status Hysterectomy Smoking Status Former Physical Exam Constitutional: Appearance: Normal appearance. She is not ill-appearing. HENT: Head: Atraumatic. Eyes: General: No scleral icterus. Cardiovascular: Rate and Rhythm: Regular rhythm. Pulmonary: Effort: No respiratory distress. Abdominal: General: There is no distension. Tenderness: There is no abdominal tenderness. Neurological: Mental Status: She is alert. Gait: Gait normal. ASSESSMENT AND PLAN: Assessment/Plan Diagnoses and all orders for this visit: Carcinoma in situ of ascending colon Patient had polyp with carcinoma in Situ of ascending colon, Dr. Moon had felt this was completely removed. I had this sent for 2nd opinion at [facility] and they did not identify any clear malignancy. It said that there was some findings that were worrisome for submucosal invasion however definitive diagnosis of adenocarcinoma could not be given. Patient will have a repeat colonoscopy to see if any residual or suspicious findings. That will guide next step in management on decision for observation versus colectomy. Additionally she is pending lung biopsy for possible lung cancer. I gave her information on the pathology report and my contact information for her to take to her manager of distribution and I asked her to have them contact me with the results from the procedure. I will see her back a week after her colonoscopy. documented in this encounter [facility] 05-31-2024 History of Present illness Narrative Associated Problem(s): Mass of left lung Bronchoscopy done: PET SCAN indicated advancing growth of lung nodules; Had EBUS. Following with Dr. Lundberg- Ratna closely. Referral sent to GI: Increased activity into ascending colon on PET scan. Had colonoscopy, is scheduled for additional. Pathology reports pending. Images from the original note were not included. Subjective Patient ID: Bhupendra Rubi is a 73 y.o. female who presents for Follow-up. HPI Following with Frank CAICEDO- Dr. Mohr General Surgery- Dr. Villanueva Pulmonology- Dr. Ngoc Kirby is here today for a routine follow up. She recently was referred to kerry, pulmonary, and gen surgery for lung mass. 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 Recently had EBUS at [facility], is scheduled for colonoscopy as well. Is following closely with all specialists. There is pending pathology. She reports she is feeling very overwhelmed and uncertain of all of her diagnosis. I did reach out to kerry Wytat while in office with patient who was very pleasant and offered to see patient in office same week to further discuss ongoing cancer diagnosis in further detail. Pt states she will reach out to office to schedule. Pt requests to wait on influenza vaccine until she discusses with Dr. Lundberg and other specialists . Offered pt support groups and referral for therapy, while she was appreciative she stated she has too much on her plate already to add an additional appointment. Denies any further complaints or concerns at this time. Review of Systems Constitutional: Positive for fatigue. Negative for activity change, appetite change, chills, diaphoresis, fever and unexpected weight change. HENT: Negative for congestion, ear pain, rhinorrhea, sinus pressure, sinus pain, sneezing, sore throat, trouble swallowing and voice change. Eyes: Negative for visual disturbance. Respiratory: Positive for cough and shortness of breath. Negative for chest tightness and wheezing. Cough/shortness of breath with exertion. Baseline for patient Cardiovascular: Negative for chest pain, palpitations and leg swelling. Gastrointestinal: Positive for constipation. Negative for abdominal distention, abdominal pain, blood in stool, diarrhea and vomiting. Genitourinary: Negative for decreased urine volume, dysuria, flank pain, frequency, hematuria and urgency. Musculoskeletal: Negative for arthralgias, gait problem, joint swelling and myalgias. Skin: Negative for rash. Neurological: Negative for dizziness, tremors, syncope, weakness, light-headedness and headaches. Psychiatric/Behavioral: Negative for decreased concentration and suicidal ideas. The patient is not nervous/anxious. Hematological: Does not bruise/bleed easily. Endocrine: Negative for cold intolerance, heat intolerance, polydipsia, polyphagia and polyuria. Objective Physical Exam Vitals reviewed. Constitutional: Appearance: Normal appearance. HENT: Head: Normocephalic and atraumatic. Right Ear: Tympanic membrane normal. Left Ear: Tympanic membrane normal. Nose: Nose normal. Mouth/Throat: Mouth: Mucous membranes are moist. Pharynx: Oropharynx is clear. Eyes: Pupils: Pupils are equal, round, and reactive to light. Cardiovascular: Rate and Rhythm: Normal rate and regular rhythm. Pulses: Normal pulses. Heart sounds: Normal heart sounds. Pulmonary: Effort: Pulmonary effort is normal. Breath sounds: Normal breath sounds. Abdominal: General: Abdomen is flat. Bowel sounds are normal. Palpations: Abdomen is soft. Musculoskeletal: General: Normal range of motion. Cervical back: Normal range of motion. Skin: General: Skin is warm and dry. Capillary Refill: Capillary refill takes less than 2 seconds. Neurological: General: No focal deficit present. Mental Status: She is alert and oriented to person, place, and time. Psychiatric: Mood and Affect: Mood normal. Behavior: Behavior normal. Assessment/Plan Problem List Items Addressed This Visit Mass of left lung - Primary Bronchoscopy done: PET SCAN indicated advancing growth of lung nodules; Had EBUS. Following with Dr. Lundberg- Anisa/onco closely. Referral sent to GI: Increased activity into ascending colon on PET scan. Had colonoscopy, is scheduled for additional. Pathology reports pending. documented in this encounter [facility] 05-23-2024 Instructions Chris Singh NP - 05/23/2024 10:30 AM EST Follow up with Dr. Lundberg's office this week. Have colonoscopy scheduled. Call if you need anything! documented in this encounter [facility] 05-20-2024 Note Addendum created 03/05 1439 by Marilia Pennington MD Intraprocedure Meds edited [facility] 05-18-2024 Note Patient: Bhupendra roberts Procedure Summary Date: 05/18/24 Room / Location: [facility] Main Operating Room Anesthesia Start: 1251 Anesthesia [...] anesthesia protocol. No notable events documented. [facility] 05-18-2024 Note Patient's significan t other at bedside. He states he was not updated post procedure by Dr. Warren or his fellow Dr. Hamlin. RN notified physician of family's request for update and chest xray was completed, but needs to be read prior to discharge. [facility] 05-18-2024 Note Airway Date/Time: 05/18/2024 12:57 PM Urgency: elective General Information and Staff Patient location during procedure: OR Anesthesiologist: Micky Hilliard MD Resident/FREIGHT ADJUSTER/CAA: Marilia Pennington MD Performed: resident/FREIGHT ADJUSTER/CAA Indications and Patient Condition Indications for airway [...] Number of other approaches attempted: 0 [facility] 05-18-2024 Note Patient: Bhupendra roberts Procedure Information Date/Time: 05/18/24 1230 Scheduled providers: Diana Warren MD; Micky Hilliard MD Procedure: BRONCHOSCOPY Location: [facility] Main Operating Room Relevant Problems Anesthesia Denies anes issues or KARENA Cardio Denies CAD; can walk possibly 4 mets (+) Abdominal aortic aneurysm (AAA) 3.0 cm to 5.0 cm in diameter in female (CMS/HCC) Endo (within normal limits) GI (+) Gastroesophageal reflux disease /Renal Denies renal issues Neuro/Psych 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 Do not wear perfume, make-up, nail greek, or lotions on the day of your [...] need to make any changes, please call [phone]. Notify your surgeon if you develop any illness such as a cold, cough, fever, sore throat or vomiting between now and your surgery. Thank you for entrusting us with your care. [facility] Surgical Services Team [facility] 05-10-2024 History of Present illness Narrative [...] PRN atorvastatin (LIPITOR) 80 mg, Oral, Daily Xhynejg-Lxjjulylqcy-Shoxgxnteq (Breztri Aerosphere) 160-9-4.8 MCG/ACT aerosol 2 puffs, [...] Infrarenal abdominal aortic aneurysm (AAA) without rupture ([facility]/HCC) CT chest done in 11/02 by Pulkasie that showed AAA 2.3 cm with possible [...] invasive adenocarcinoma . I Communicated with her manager of distribution, he felt this was completely removed. I am sending her pathology to [facility] for 2nd opinion. Patient is having her lung mass worked up with a biopsy in [place] and is supposed to get a 2nd [...] I discussed that with Dr. Moon her manager of distribution. documented in this encounter [facility] 04-28-2024 Note Attestation signed by Diana Warren [...] Age: 73 y.o. : 1950 Account No.: [id number] Referring physician: Dr. Lundberg Chief complaint: Lung [...] was initiated by the patient and conducted wkc-uzxl-cn-face with use of audio-only real time telephone [...] Physical examination (more content not included)... [facility] 03-25-2024 Procedure note [facility] 03-25-2023 Evaluation note Encounter Date Diagnosis Assessment [...] were addressed she understands agrees the plan. [employer] Other 07-31-2023 Evaluation note* Encounter Date Diagnosis Assessment Notes Treatment Notes Treatment Clinical Notes Jan, Abdominal aortic aneurysm (AAA) without rupture, unspecified part (ICD-10 - I71.40) We reviewed her abdominal CT imaging from outside facility at the [facility] which shows AAA 3.4 cm in [...] her risk and is unmotivated to quit. [employer] Other 06-14-2023 Hospital Discharge instructions Patient Education [...] Follow these instructions at home: Medicines Take fwuj-gav-gihulbt and prescription medicines only as told by [...] Watch your condition for any changes. Take bfym-gxy-xxrzvul and prescription medicines only as told by [...] provider. Document Revised: 08/17/2020 Document Reviewed: 11/07/2019 [employer] Patient Education 2022 [employer]. Follow Up Care 12/15/2022 11:25:23 With:Brigette Martini CNP Address: When:1 month [facility] 11-28-2022 Hospital Discharge instructions [...] fried and sweet foods. General instructions Take pbxr-hbc-vgsxhty and prescription medicines only as told by [...] 04/25/2010 Document Revised: 10/20/2019 Document Reviewed: 07/15/2018 [employer] Patient Education 2020 [employer]. Follow Up Care 05/09/2022 11:00:12 With:TRISTA FARFAN, Armando Mckay, URL Address: [facility] [address], [place] [address]- When: Unknown [facility] evaluation + Plan note No data available for this section [facility] evaluation + Plan note Future Appointments Appointment Date:12/29/2022 10:30:00 AM Scheduled Provider: Location:.[facility] Appointment Type:US Abdominal/Pelvis (FT) Appointment Date:02/18/2023 08:15:00 AM Scheduled Provider: Location:[facility] Appointment Type:Surgery FT Future Scheduled Tests Radiology* US Abdomen, Limited 12/29/22 [facility] Evaluation + Plan note Future Appointments Appointment Date:02/18/2023 08:15:00 AM Scheduled Provider: Location:[facility] Future Appointments Appointment Date:01/07/2023 11:00:00 AM Scheduled Provider: Location:FT.CAT SCAN Appointment Type:CT Abdomen (FT) Appointment Date:02/18/2023 08:15:00 AM Scheduled Provider: Location:[facility] Appointment Type:Surgery FT Future Scheduled Tests Radiology* CT Abdomen w/ Contrast [facility]07[facility]23 [facility] Diagnosis RLS (restless legs syndrome)- Primary Restless legs syndrome (RLS) Moderate COPD (chronic obstructive pulmonary disease) (CMS/[facility]) documented in this encounter [facility] HealthcareEvaluation noteNo assessment information availableW[facility] Work Phone: Evaluation note* Diagnosis Onset Date Resolution Status Abdominal aortic aneurysm (A AA) 3.0 cm to 5.0 cm in diameter in female acute [facility] Work Phone: Evaluation note* Diagnosis Tobacco dependency- Primary Tobacco use disorder Hyperlipidemia, unspecified hyperlipidemia type (CMS/HCC) H/O: CVA (cerebrovascular accident) Primary hypertension (CMS/HCC) Unspecified essential hypertension Moderate COPD (chronic obstructive pulmonary disease) (CMS/HCC) RLS (restless legs syndrome) Restless legs syndrome (RLS) Peripheral polyneuropathy Screening mammogram for breast cancer Medicare annual wellness visit, subsequent RLS (restless legs syndrome)- Primary Restless legs syndrome (RLS) Peripheral polyneuropathy Moderate COPD (chronic obstructive pulmonary disease) (CMS/HCC) Hyperlipidemia, unspecified hyperlipidemia type (CMS/HCC) Primary hypertension (CMS/HCC) Unspecified essential hypertension Chronic abdominal pain Abdominal pain, unspecified site Moderate COPD (chronic obstructive pulmonary disease) (CMS/HCC)- Primary Primary hypertension (CMS/HCC) Unspecified essential hypertension Moderate COPD (chronic obstructive [...] essential hypertension Hyperlipidemia, unspecified hyperlipidemia type (CMS/HCC) Gastroesophageal reflux disease without esophagitis Esophageal reflux documented in this encounter [facility] HealthcareEvaluation note* Diagnosis Tobacco dependency- Primary Tobacco use disorder Hyperlipidemia, unspecified hyperlipidemia type (CMS/HCC) H/O: CVA (cerebrovascular accident) Primary hypertension (CMS/HCC) Unspecified essential hypertension Moderate COPD (chronic obstructive pulmonary disease) (CMS/HCC) RLS (restless legs syndrome) Restless legs syndrome (RLS) Peripheral polyneuropathy Screening mammogram for breast cancer Medicare annual wellness visit, subsequent RLS (restless legs syndrome)- Primary Restless legs syndrome (RLS) Peripheral polyneuropathy Moderate COPD (chronic obstructive pulmonary disease) (CMS/HCC) Hyperlipidemia, unspecified hyperlipidemia type (CMS/HCC) Primary hypertension (CMS/HCC) Unspecified essential hypertension Chronic abdominal pain Abdominal pain, unspecified site Moderate COPD (chronic obstructive pulmonary disease) (CMS/HCC)- Primary Primary hypertension (CMS/HCC) Unspecified essential hypertension Moderate COPD (chronic obstructive [...] of ascending colon documented in this encounter [facility]* Diagnosis Tobacco dependency- Primary Tobacco use disorder Hyperlipidemia, unspecified hyperlipidemia type (CMS/HCC) H/O: CVA (cerebrovascular accident) Primary hypertension (CMS/HCC) Unspecified essential hypertension Moderate COPD (chronic obstructive pulmonary disease) (CMS/HCC) RLS (restless legs syndrome) Restless legs syndrome (RLS) Peripheral polyneuropathy Screening mammogram for breast cancer Medicare annual wellness visit, subsequent RLS (restless legs syndrome)- Primary Restless legs syndrome (RLS) Peripheral polyneuropathy Moderate COPD (chronic obstructive pulmonary disease) (CMS/HCC) Hyperlipidemia, unspecified hyperlipidemia type (CMS/HCC) Primary hypertension (CMS/HCC) Unspecified essential hypertension Chronic abdominal pain Abdominal pain, unspecified site Moderate COPD (chronic obstructive pulmonary disease) (CMS/HCC)- Primary Primary hypertension (CMS/HCC) Unspecified essential hypertension Moderate COPD (chronic obstructive [...] essential hypertension Hyperlipidemia, unspecified hyperlipidemia type (CMS/HCC) Mass of left lung- Primary [facility] encounter [facility]* Diagnosis Tobacco dependency- Primary Tobacco use disorder Hyperlipidemia, unspecified hyperlipidemia type (CMS/HCC) H/O: CVA (cerebrovascular accident) Primary hypertension (CMS/HCC) Unspecified essential hypertension Moderate COPD (chronic obstructive pulmonary disease) (CMS/HCC) RLS (restless legs syndrome) Restless legs syndrome (RLS) Peripheral polyneuropathy Screening mammogram for breast cancer Medicare annual wellness visit, subsequent RLS (restless legs syndrome)- Primary Restless legs syndrome (RLS) Peripheral polyneuropathy Moderate COPD (chronic obstructive pulmonary disease) (CMS/HCC) Hyperlipidemia, unspecified hyperlipidemia type (CMS/HCC) Primary hypertension (CMS/HCC) Unspecified essential hypertension Chronic abdominal pain Abdominal pain, unspecified site Moderate COPD (chronic obstructive pulmonary disease) (CMS/HCC)- Primary Primary hypertension (CMS/HCC) Unspecified essential hypertension Moderate COPD (chronic obstructive [...] essential hypertension Hyperlipidemia, unspecified hyperlipidemia type (CMS/HCC) Mass of left lung- Primary Carcinoma in situ of ascending colon- Primary documented in this encounter [facility] and physical note Author Mikhail Moon [facility] March 25, 2024 10:35am Note Date/Time March 25, 2024 10:35am [facility] [address] [place] [address] Gastroenterology H&P Signed Patient: Bhupendra Rubi MR#: [id number] : 1950 Acct:[id number] Age/Sex: 73 / F Adm Date: 4 Loc: Room: Type: [facility] Attending Dr: Mikhail Moon MD Copies to: [...] signed by Mikhail Moon MD> 03/25/24 1035 [facility] Work Phone: History general Narrative - Reported* Type Description Date Medical History GERD Medical History hypercholesterolemia Surgical History cholecystectomy Surgical History tubal ligation Surgical History shoulder surgery Hospitalization History see above [employer] Other History general Narrative - Reported* Type Description Date Medical History GERD Medical History hypercholesterolemia Medical History Carotid stenosis Surgical History cholecystectomy Surgical History tubal ligation Surgical History shoulder surgery Hospitalization History see above [employer] Other Hospital Discharge instructions No data available for this section [facility] Additional Instructions Stop your blood pressure medicine. Follow-up with your doctor without fail for reevaluation of blood pressure and left lung mass.[facility] Work Phone: Hospital Discharge instructionsAmbulatory Orders* Referral to General Surgery Location: None Selected [facility] Work Phone: Progress note No data available for this section [facility] [place] Summary Purpose Family History No Family History [...] Unknown sister Myocardial infarction Unknown Advance Directives No Advanced Directives Records [...] DATE CREATED AUTHOR AUTHOR'S ORGANIZ ATION 03/03/2024 [facility] DATE CREATED AUTHOR AUTHOR'S ORGANIZ ATION 05/15/2024 [facility] DATE CREATED AUTHOR AUTHOR'S ORGANIZ ATION 06/02/2024 [facility] EPIC DATE CREATED AUTHOR AUTHOR'S ORGANIZ ATION 06/05/2024 [facility] Patient Care team informatio n (unrecognized section and content) Pool Hand Relationship Specialty Start Date End Date Charanjit Chen MD [address] [place] [address] PCP - General Family Medicine 02/11/24 Chris Singh NP [address] [facility] [place] [address] Nurse Practitioner Family Medicine 02/11/24 Anne Hartley LPN Licensed Practical Nurse Family Medicine 03/25/24 Team Status: Active Member Role Status Angelica Horan MD Primary Care Provider Active Team Status: Active Member Role Status Dates Shaikh Aung MD Primary Care Provider Active Start: February 23, 2024 Keegan Comer DO Attending Provider Active Sta rt: February 23, 2024 Team Status: Inactive Member Role Status Dates Shaikh Aung MD Primary Care Provider Active Start: March [...] 2024 Team Status: Active Member Role Status Dates Shaikh Aung MD Primary Care Provider Active Start: March 25, 2024 Mikhail Moon MD Attending Provider, Other Provider Active Start: March 25, 2024 Team Status: Active Member Role Status Dates Shaikh Aung MD Primary Care Provider Active Start: April 06, 2024 Mikhail Moon MD Attending Provider Active Start: April 06, 2024 Personnel Name: SHAIKH HORAN MD Address: Address[address] [place] [id number] Team Status: Active Member Role Status Dates Shaikh Aung MD Primary Care Provider Active Team Status: Inactive Member Role Status Dates Shaikh Aung MD Primary Care Provider Active Start: December 27, 2023 End: December 27, 2023 Bernardino Bhakta MD Emergency Provider Active St art: December 27, 2023 End: December 27, 2023 Pool Hand Relationship Specialty Start Date End Date Shaikh Horan MD PCP - General Internal Medicine 01/26/23 Shaikh Horan MD [address] [place] [address] PCP - Devoted 04/12/23 Personnel Name: SHAIKH HORAN Address: Address: [address] [place] [id number] REASON FOR VISIT (unrecogniz ed section and content) Reason Onset Date Comments Med Refill 05/02/2024 Reason Comments Consult Colon polyp ref'd by Red Specialty Diagnoses / Procedures Referred By Contac t Referred To Contact General Surgery Diagnoses Benign neoplasm of colon, unspecified Procedures LA OFFICE/OUTPATIENT NEW HIGH MDM 60 MINUTES Mikhail Moon MD [address] [address] Phone: tel: fax: [facility] [address] [address] Phone: tel: fax: Referral ID Status Reason Start Date Expiration Date V isits Requested Visits Authorized [id number] Closed Specialty Services Required 04/11/2024 10/08/2024 1 1 Reason Comments Follow-up Goals (unrecognized section and content) Goals may [...] BE BASED ON THE PRIMARY CLINICAL RECORDS. [facility] [employer] [facility]. provides no warranty or guarantee of the accuracy or completeness of information in this document.
[2024-06-13 01:36] LABS: Basophils Absolute Auto 0.1 10^3/uL (0.0-0.1); Basophils Percent Auto 0.5 % (0.2-2.0); Eosinophils Absolute Auto 0.2 10^3/uL (0.0-0.7); Eosinophils Percent Auto 1.5 % (0.9-7.0); Hematocrit 38.9 % (36.0-48.0); Immature Granulocytes Abs Auto 0.04 10^3/uL (0.00-0.03); Immature Granulocytes Pct Auto 0.4 % (0.0-0.5); Lymphocytes Absolute Auto 3.1 10^3/uL (1.2-3.8); Lymphocytes Percent Auto 29.4 % (20.5-60.0); Mean Corpuscular HGB Conc 30.8 g/dL (29.9-35.2); Mean Corpuscular Hemoglobin 28.2 pg (26.7-34.0); Mean Corpuscular Volume 91.3 fL (81.0-99.0); Monocytes Absolute Auto 1.2 10^3/uL (0.3-0.8); Neutrophils Absolute Auto 6.1 10^3/uL (1.4-6.5); Neutrophils Percent Auto 57.2 % (43.0-75.0); Platelet Count 196 10^3/uL (150-450); Red Blood Count 4.26 10^6/uL (4.20-5.40); Red Cell Distribution Width 14.7 % (11.0-15.0); White Blood Count 10.7 10^3/uL (4.0-11.0)
[2024-06-13 01:41] LABS: Glucometer 104 mg/dL (74-106)
[2024-06-13 01:55] LABS: Lactate/Lactic Acid 1.3 mmol/L (0.4-2.0)
[2024-06-13 02:01] LABS: Alanine Aminotransferase 13 U/L (14-59); Albumin Globulin Ratio 0.6; Albumin Level 2.6 g/dL (3.4-5.0); Alkaline Phosphatase 121 U/L (46-116); Anion Gap 8.5; Aspartate Amino Transferase 25 U/L (15-37); BUN Creatinine Ratio 10.4; Bilirubin Total 0.5 mg/dL (0.2-1.0); Calcium 8.8 mg/dL (8.5-10.1); Carbon Dioxide 33.3 mmol/L (21.0-32.0); Chloride 103 mmol/L (98-107); Estimated GFR (African America >60 (>=60 mL/min/1.73m^2); Estimated GFR (Non-African Ame 51 (>=60 mL/min/1.73m^2); Globulin 4.3 g/dL; Glucose 93 mg/dL (74-106); Potassium 4.8 mmol/L (3.5-5.1); Salicylate <2.8 mg/dL (<=19.9); Sodium 140 mmol/L (136-145); Total Protein 6.9 g/dL (6.4-8.2); Troponin I High Sensitivity 6.5 pg/mL (4.0-51.3)
[2024-06-13 02:03] LABS: Acetaminophen <2.0 ug/mL (10.0-30.0)
[2024-06-13 02:10] LABS: Ethanol <3 mg/dL
[2024-06-13 02:18] LABS: Bilirubin Urine NEGATIVE (NEGATIVE); Blood Urine NEGATIVE (NEGATIVE); Clarity Urine CLEAR (CLEAR); Color Urine YELLOW (YELLOW); Glucose Urine UA NEGATIVE (NEGATIVE); Ketones Urine NEGATIVE (NEGATIVE); Leukocyte Esterase Urine NEGATIVE (NEGATIVE); Nitrite Urine NEGATIVE (NEGATIVE); Protein Urine TRACE mg/dL (NEG/TRACE); Specific Gravity Urine >=1.030 (1.005-1.025)
[2024-06-13 02:19] LABS: Allen Test POSITIVE (POSITIVE); Base Excess ABG 4.7 mmol/L (-2.0-2.0); HCO3 ABG 30.6 mmol/L (22.0-26.0); Liters per Minute 3.5; O2 Mode NASAL CANNULA; Oxygen Saturation ABG 95.8 %; PO2 ABG 81.3 mmHg (80.0-100.0); Puncture Site R RADIAL; pH ABG 7.332 (7.350-7.450)
[2024-06-13 02:20] LABS: ABG PCO2 57.8 mmHg (35.0-45.0)
[2024-06-13 02:22] LABS: Urine Microscopic Indicated NO
[2024-06-13 02:26] LABS: Amphetamine Screen Urine NEGATIVE (NEGATIVE); Barbiturates Screen Urine NEGATIVE (NEGATIVE); Benzodiazepines Screen Urine NEGATIVE (NEGATIVE); Buprenorphine Screen Urine NEGATIVE (NEGATIVE); Cannabinoid Screen Urine NEGATIVE (NEGATIVE); Cocaine Screen Urine NEGATIVE (NEGATIVE); Methadone Screen Urine NEGATIVE (NEGATIVE); Methamphetamines Screen Urine NEGATIVE (NEGATIVE); Opiate Screen Urine NEGATIVE (NEGATIVE); Oxycodone Screen Urine NEGATIVE (NEGATIVE); Phencyclidine Screen Urine POSITIVE (NEGATIVE); Tricyclic Antidepressant Urine NEGATIVE (NEGATIVE)
--- NOTE | 2024-06-13 06:42 | CT_ITS ---
The [address] [address] Patient Name: BHUPENDRA MIRANDA MRN: [id number] date: 1950 Sex: F Assigned Patient Location: ER Current Patient Location: Accession/Order Number: [id number] Exam Date: 06/13/2024 07:40 Report Date: 06/13/2024 08:21 At the request of: BESS PRABHAKAR Procedure: CT angio chest EXAM: CT angio chest HISTORY: Hypoxia. COMPARISON: Chest radiographs dated 06/13/2024 and 03/09/2024 and PET/CT examination dated 01/25/2024. TECHNIQUE: Routine CTA chest with intravenous contrast. Dose reduction techniques were achieved by using automated exposure control and/or adjustment of mA and/or kV according to patient size and/or use of iterative reconstruction technique. FINDINGS: There is mild cardiomegaly. There are multivessel coronary calcifications. There is mild aortic valvular calcification. There is moderately severe atheromatous plaque along the thoracic and abdominal aorta and great vessels off the aortic arch. There is contrast within the pulmonary arteries. There is no pulmonary embolus. There is no right heart strain. There is consolidation of both posterior costophrenic angle suggesting atelectasis and/or infiltrates. There is mild right middle lobe and lingular atelectasis. There is paraseptal emphysema. New 6.2 mm noncalcified left upper lobe nodule (series 4 image 28). There is a 2.6 x 2.4 x 3.5 cm spiculated pleural-based left upper lobe mass which is larger compared to the PET/CT examination however more extensive masslike density was seen peripherally within the left mid and upper chest on the previous chest radiograph. This is highly suspicious for malignancy. The irregular areas of hypoattenuation within the mass suggests necrosis. There are no pathologically enlarged lymph nodes. The trachea, esophagus and imaged portions of the thyroid gland are unremarkable. The liver may be fatty infiltrated. There are mild discogenic degenerative changes along the spine. CT/CT angio chest IMPRESSION: There is no pulmonary embolus. There is consolidation at both posterior costophrenic angle suggesting atelectasis and/or infiltrates. There is paraseptal emphysema. New 6.2 mm noncalcified left upper lobe nodule (series 4 image 28). There is a 2.6 x 2.4 x 3.5 cm spiculated pleural-based left upper lobe mass which is larger compared to the PET/CT examination however more extensive masslike density was seen peripherally within the left mid and upper chest on the previous chest radiograph. This is highly suspicious for malignancy. The irregular areas of hypoattenuation within the mass suggests necrosis. There are no pathologically enlarged lymph nodes. Appropriate clinical management is recommended. Mild cardiomegaly. Atherosclerotic disease as described. The liver may be fatty infiltrated. Electronically authenticated by: GABY WEBSTER Date: 06/13/2024 08:21
--- NOTE | 2024-06-13 06:47 | ED_ITS ---
HPI - Altered Mental Status General Chief Complaint: Altered Mental Status Stated Complaint: ALTERED MENTAL Time Seen by Provider: 06/13/24 01:27 Source: other Source comment: EMS Mode of arrival: ambulance Limitations: altered mental status History of Present Illness HPI narrative: 73-year-old female to the emergency department with chief complaint of tremor, altered mental status. Family reports that the patient took her nighttime medications and then had some tremors. They became concerned that she would not respond. She was brought to the emergency department by EMS for evaluation. No falls or injuries. She is otherwise been at her baseline health. She has lung cancer not currently being treated. Related Data Home Medications ?Medication ?Instructions ?Recorded ?Confirmed albuterol sulfate 90 mcg/actuation 2 inh inhalation Q4H PRN shortness 03/02/24 03/09/24 aerosol inhaler of breath or wheezing aspirin 81 mg tablet,delayed 81 mg PO DAILY 03/02/24 03/09/24 release (Adult Aspirin Regimen) atorvastatin 80 mg tablet 80 mg PO DAILY 03/02/24 06/13/24 budesonide 160 mcg-glycopyr 9 2 inh inhalation BID 03/02/24 03/09/24 mcg-formot 4.8 mcg/actuation HFA inhaler (Breztri Aerosphere) gabapentin 300 mg capsule 300 mg PO DAILY 03/02/24 03/09/24 linaclotide 145 mcg capsule 145 mcg PO DAILY PRN diarrhea 03/02/24 03/09/24 (Linzess) pantoprazole 40 mg tablet,delayed 40 mg PO DAILY 03/02/24 06/13/24 release trazodone 100 mg tablet 100 mg PO QPM 03/02/24 06/13/24 zolpidem 10 mg tablet 10 mg PO QPM 03/02/24 06/13/24 baclofen 10 mg tablet 10 mg PO Q8H 06/13/24 06/13/24 dicyclomine 20 mg tablet 20 mg PO QID 06/13/24 06/13/24 fenofibrate nanocrystallized 48 mg 48 mg PO DAILY 06/13/24 06/13/24 tablet ferrous sulfate 325 mg (65 mg 325 mg PO DAILY 06/13/24 06/13/24 iron) tablet,delayed release folic acid 1 mg tablet 1 mg PO DAILY 06/13/24 06/13/24 isosorbide mononitrate 30 mg 30 mg PO DAILY 06/13/24 06/13/24 tablet,extended release 24 hr ropinirole 5 mg tablet 5 mg PO BEDTIME 06/13/24 06/13/24 Allergies Allergy/AdvReac Type Severity Reaction Status Date / Time No Known Drug Allergies Allergy Verified 03/02/24 12:42 Review of Systems ROS Status of ROS 10 or more systems reviewed and unremark able except as noted in history and below [facility] Medical History (Updated 06/13/24 @ 06:53 by Osmel Smith MD) Neck pain ?M54.2 - Cervicalgia (ICD-10) Fibromyalgia ?M79.7 - Fibromyalgia (ICD-10) Back pain ?M54.9 - Dorsalgia, unspecified (ICD-10) Anemia ?D64.9 - Anemia, unspecified (ICD-10) Mass of right parotid gland ?K11.8 - Other diseases of salivary glands (ICD-10) AAA (abdominal aortic aneurysm) ?I71.40 - Abdominal aortic aneurysm, without rupture, unspecified (ICD-10) Bipolar disorder ?F31.9 - Bipolar disorder, unspecified (ICD-10) Dyspnea on exertion ?R06.09 - Other forms of dyspnea (ICD-10) Pulmonary nodule ?R91.1 - Solitary pulmonary nodule (ICD-10) Emphysema lung ?J43.9 - Emphysema, unspecified (ICD-10) Restless leg ?G25.81 - Restless legs syndrome (ICD-10) GERD (gastroesophageal reflux disease) ?K21.9 - Gastro-esophageal reflux disease without esophagitis (ICD-10) Constipation ?K59.00 - Constipation, unspecified (ICD-10) Diarrhea ?R19.7 - Diarrhea, unspecified (ICD-10) IBS (irritable bowel syndrome) ?K58.9 - Irritable bowel syndrome without diarrhea (ICD-10) High cholesterol ?E78.00 - Pure hypercholesterolemia, unspecified (ICD-10) Hypertension ?I10 - Essential (primary) hypertension (ICD-10) Mass of left lung (2023) ?R91.8 - Other nonspecific abnormal finding of lung field (ICD-10) Right arm weakness ?R29.898 - Other symptoms and signs involving the musculoskeletal system (ICD-10) CVA (cerebral vascular accident) (2013) ?I63.9 - Cerebral infarction, unspecified (ICD-10) Surgical History History of colonoscopy ?Z98.890 - Other specified postprocedural states (ICD-10) History of hysterectomy ?Z90.710 - Acquired absence of both cervix and uterus (ICD-10) History of cholecystectomy ?Z90.49 - Acquired absence of other specified parts of digestive tract (ICD- 10) History of repair of rotator cuff ?Z98.890 - Other specified postprocedural states (ICD-10) History of arthroscopy of shoulder ?Z98.890 - Other specified postprocedural states (ICD-10) History of tubal ligation ?Z98.51 - Tubal ligation status (ICD-10) Family History Other Family history of DVT Family history of lung cancer Family history of stroke Social History (Updated 03/09/24 @ 11:07 by Magui Mckeon, RACHELL) Within the past year, how often did you have a drink containing alcohol: monthly or less Smoking status: Former smoker Second hand tobacco smoke exposure: No Non-prescribed substance use: denies use 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 GENERAL: Somnolent female in no distress NEURO: Alert and oriented x4. Arouses to painful stimuli and answers questions appropriately, then falls back asleep quickly. Moves all extremities. Face is symmetric and expressive. EYES: PERRL. No scleral icterus or conjunctival injection. No discharge. HENT: Normocephalic, atraumatic. Hearing is grossly intact. Nares grossly patent and without discharge. Mucous membranes moist. NECK: No JVD. Patient moves neck without restriction. CARDIO: Rhythm regular. Normal rate. No murmur, rub, or gallop. Pulses equal bilaterally in the upper and lower extremity. No lower extremity edema. PULM: Lungs clear to auscultation in all isidro. No wheezes, rales, or rhonchi. No conversational dyspnea. No splinting, stridor, or accessory muscle use. GI/: Abdomen is soft and non-tender. Normoactive bowel sounds. EXTREMITIES: Symmetric muscle bulk. No joint swelling. No clubbing, cyanosis, or deformity. SKIN: Warm and dry. Normal turgor. No rash or lesions appreciated. PSYCH: Mood, affect, and interaction is appropriate to the setting. Constitutional Vital Signs, click to edit/add: Last Vital Signs Temp 98.6 F 06/13/24 01:46 Pulse 70 06/13/24 06:10 Resp 14 06/13/24 05:31 BP 132/67 06/13/24 06:00 Pulse Ox 95 06/13/24 06:10 O2 Del Method Nasal Cannula 06/13/24 05:00 O2 Flow Rate 2 06/13/24 05:00 Course Vital Signs Vital signs: Vital Signs Blood Pressure 111/70 06/13/24 01:24 Temperature 98.6 F 06/13/24 01:46 Pulse Rate 70 06/13/24 06:10 Respiratory Rate 14 06/13/24 05:31 Blood Pressure 132/67 06/13/24 06:00 Pulse Oximetry 95 06/13/24 06:10 Oxygen Delivery Method Nasal Cannula 06/13/24 05:00 Oxygen Delivery Flow Rate 2 06/13/24 05:00 MDM - Altered Mental Status MDM Narrative Medical decision making narrative: 73-year-old female arrives out of concern for tremor and somnolence. She is hypoxic, placed on nasal cannula. Otherwise stable vitals. CT head, chest x- ray, basic labs are ordered. EMS reports that she took baclofen, Ambien prior to arrival. Lab work reviewed and noted. There are no significant abnormalities from her baseline. Chest x-ray redemonstrates her known mass. CT head without acute findings. EKG without evidence of ischemia. After several hours in the department the patient becomes more alert. She is able to answer questions. She has never had hypoxia like this before. Denies any fever, sweats, chills, cough. Given her history of cancer and hypoxia with otherwise clear lungs we will proceed with a CT angiogram for better evaluation to rule out a PE. Patient and her agree with this plan. Care was signed out to Dr. Mckeon. Medical Records Attestation: I reviewed the patient's medical records. Lab Data Attestation: I reviewed the patient's lab results. Labs: Lab Results 06/13/24 06/13/24 06/13/24 Range/Units 01:30 01:40 02:08 WBC 10.7 (4.0-11.0) 10^3/uL RBC 4.26 (4.20-5.40) 10^6/uL Hgb 12.0 (12.0-16.0) g/dL Hct 38.9 (36.0-48.0) % MCV 91.3 (81.0-99.0) fL MCH 28.2 (26.7-34.0) pg MCHC 30.8 (29.9-35.2) g/dL RDW 14.7 (11.0-15.0) % Plt Count 196 (150-450) 10^3/uL MPV 11.0 (9.5-13.5) fL Neut % (Auto) 57.2 (43.0-75.0) % Lymph % (Auto) 29.4 (20.5-60.0) % [place] % (Auto) 11.0 (1.7-12.0) % Eos % (Auto) 1.5 (0.9-7.0) % Baso % (Auto) 0.5 (0.2-2.0) % Neut # (Auto) 6.1 (1.4-6.5) 10^3/uL Lymph # (Auto) 3.1 (1.2-3.8) 10^3/uL [place] # (Auto) 1.2 H (0.3-0.8) 10^3/uL Eos # (Auto) 0.2 (0.0-0.7) 10^3/uL Baso # (Auto) 0.1 (0.0-0.1) 10^3/uL Abs Immat Gran (auto) 0.04 H (0.00-0.03) 10^3/uL Imm/Tot Granulo (auto) 0.4 (0.0-0.5) % Puncture Site ABG pH (7.350-7.450) ABG pCO2 (35.0-45.0) mmHg ABG pO2 (80.0-100.0) mmHg ABG HCO3 (22.0-26.0) mmol/L ABG O2 Saturation % ABG Base Excess (-2.0-2.0) mmol/L Lars Test (POSITIVE) O2 Liters/Min Expiratory Pressure Sodium 140 (136-145) mmol/L Potassium 4.8 (3.5-5.1) mmol/L Chloride 103 (98-107) mmol/L Carbon Dioxide 33.3 H (21.0-32.0) mmol/L Anion Gap 8.5 BUN 11.0 (7.0-18.0) mg/dL Creatinine 1.06 H (0.55-1.02) mg/dL Est GFR ( Amer) >60 (>=60 mL/min/1.73m^2) Est GFR (Non-Af Amer) 51 L (>=60 mL/min/1.73m^2) BUN/Creatinine Ratio 10.4 Glucose 93 (74-106) mg/dL Lactate 1.3 (0.4-2.0) mmol/L Calcium 8.8 (8.5-10.1) mg/dL Total Bilirubin 0.5 (0.2-1.0) mg/dL AST 25 (15-37) U/L ALT 13 L (14-59) U/L Alkaline Phosphatase 121 H (46-116) U/L Troponin I High Sens 6.5 (4.0-51.3) pg/mL Total Protein 6.9 (6.4-8.2) g/dL Albumin 2.6 L (3.4-5.0) g/dL Globulin 4.3 g/dL Albumin/Globulin Ratio 0.6 Urine Color Yellow (YELLOW) Urine Clarity Clear (CLEAR) Urine pH 6.0 (5.0-9.0) Ur Specific [place] >=1.030 A (1.005-1.025) Urine Protein Trace (NEG/TRACE) mg/dL Urine Glucose (UA) Negative (NEGATIVE) mg/dL Urine Ketones Negative (NEGATIVE) mg/dL Urine Occult Blood Negative (NEGATIVE) Urine Nitrite Negative (NEGATIVE) Urine Bilirubin Negative (NEGATIVE) Urine Urobilinogen 1.0 (0.2-1.0) EU/dL Ur Leukocyte Esterase Negative (NEGATIVE) Salicylates <2.8 (<=19.9) mg/dL Urine Opiates Screen Negative (NEGATIVE) Ur Buprenorphine Scrn Negative (NEGATIVE) Ur Oxycodone Screen Negative (NEGATIVE) Urine Methadone Screen Negative (NEGATIVE) Acetaminophen <2.0 L (10.0-30.0) ug/mL Ur Barbiturates Screen Negative (NEGATIVE) U Tricyclic Antidepress Negative (NEGATIVE) Ur Phencyclidine Scrn Positive A (NEGATIVE) Ur Amphetamines Screen Negative (NEGATIVE) U Methamphetamines Scrn Negative (NEGATIVE) U Benzodiazepines Scrn Negative (NEGATIVE) Urine Cocaine Screen Negative (NEGATIVE) U Cannabinoids Screen Negative (NEGATIVE) Ethanol Quant <3 mg/dL POC Glucose 104 (74-106) mg/dL 06/13/24 Range/Units 02:15 WBC (4.0-11.0) 10^3/uL RBC (4.20-5.40) 10^6/uL Hgb (12.0-16.0) g/dL Hct (36.0-48.0) % MCV (81.0-99.0) fL MCH (26.7-34.0) pg MCHC (29.9-35.2) g/dL RDW (11.0-15.0) % Plt Count (150-450) 10^3/uL MPV (9.5-13.5) fL Neut % (Auto) (43.0-75.0) % Lymph % (Auto) (20.5-60.0) % [place] % (Auto) (1.7-12.0) % Eos % (Auto) (0.9-7.0) % Baso % (Auto) (0.2-2.0) % Neut # (Auto) (1.4-6.5) 10^3/uL Lymph # (Auto) (1.2-3.8) 10^3/uL [place] # (Auto) (0.3-0.8) 10^3/uL Eos # (Auto) (0.0-0.7) 10^3/uL Baso # (Auto) (0.0-0.1) 10^3/uL Abs Immat Gran (auto) (0.00-0.03) 10^3/uL Imm/Tot Granulo (auto) (0.0-0.5) % Puncture Site R radial ABG pH 7.332 L (7.350-7.450) ABG pCO2 57.8 H* (35.0-45.0) mmHg ABG pO2 81.3 (80.0-100.0) mmHg ABG HCO3 30.6 H (22.0-26.0) mmol/L ABG O2 Saturation 95.8 % ABG Base Excess 4.7 H (-2.0-2.0) mmol/L Lars Test Positive (POSITIVE) O2 Liters/Min 3.5 Expiratory Pressure Not Reportable Sodium (136-145) mmol/L Potassium (3.5-5.1) mmol/L Chloride (98-107) mmol/L Carbon Dioxide (21.0-32.0) mmol/L Anion Gap BUN (7.0-18.0) mg/dL Creatinine (0.55-1.02) mg/dL Est GFR ( Amer) (>=60 mL/min/1.73m^2) Est GFR (Non-Af Amer) (>=60 mL/min/1.73m^2) BUN/Creatinine Ratio Glucose (74-106) mg/dL Lactate (0.4-2.0) mmol/L Calcium (8.5-10.1) mg/dL Total Bilirubin (0.2-1.0) mg/dL AST (15-37) U/L ALT (14-59) U/L Alkaline Phosphatase (46-116) U/L Troponin I High Sens (4.0-51.3) pg/mL Total Protein (6.4-8.2) g/dL Albumin (3.4-5.0) g/dL Globulin g/dL Albumin/Globulin Ratio Urine Color (YELLOW) Urine Clarity (CLEAR) Urine pH (5.0-9.0) Ur Specific [place] (1.005-1.025) Urine Protein (NEG/TRACE) mg/dL Urine Glucose (UA) (NEGATIVE) mg/dL Urine Ketones (NEGATIVE) mg/dL Urine Occult Blood (NEGATIVE) Urine Nitrite (NEGATIVE) Urine Bilirubin (NEGATIVE) Urine Urobilinogen (0.2-1.0) EU/dL Ur Leukocyte Esterase (NEGATIVE) Salicylates (<=19.9) mg/dL Urine Opiates Screen (NEGATIVE) Ur Buprenorphine Scrn (NEGATIVE) Ur Oxycodone Screen (NEGATIVE) Urine Methadone Screen (NEGATIVE) Acetaminophen (10.0-30.0) ug/mL Ur Barbiturates Screen (NEGATIVE) U Tricyclic Antidepress (NEGATIVE) Ur Phencyclidine Scrn (NEGATIVE) Ur Amphetamines Screen (NEGATIVE) U Methamphetamines Scrn (NEGATIVE) U Benzodiazepines Scrn (NEGATIVE) Urine Cocaine Screen (NEGATIVE) U Cannabinoids Screen (NEGATIVE) Ethanol Quant mg/dL POC Glucose (74-106) mg/dL ABG Data Attestation: I have reviewed the pertinent ABG results. ECG Data Attestation: I personally reviewed and interpreted this ECG as follows: (Normal sinus rhythm. No STEMI. Normal QTc.) Critical Care Time Critical Care Time Critical Care Time: Yes Total Critical Care Time: 32 Attestation: Critical Care Procedure Note Authorized and Performed by: Osmel Smith DO Total critical care time: 32 min Due to a high probability of clinically significant, life threatening deterioration, the patient required my highest level of preparedness to intervene emergently and I personally spent this critical care time directly and personally managing the patient. This critical care time included obtaining a history; examining the patient; pulse oximetry; ordering and review of studies; arranging urgent treatment with development of a management plan; evaluation of patient's response to treatment; frequent reassessment; and, discussions with other providers. This critical care time was performed to assess and manage the high probability of imminent, life-threatening deterioration that could result in multi-organ failure. It was exclusive of separately billable procedures and treating other patients and teaching time. Please see MDM section and the rest of the note for further information on patient assessment and treatment. Discharge Plan Discharge Chief Complaint: Altered Mental Status Clinical Impression: Altered mental status, Acute hypoxemic respiratory failure Patient Disposition: Still a Patient Prescriptions / Home Meds: No Action albuterol sulfate 90 mcg/actuation HFA aerosol inhaler 2 inh INHALATION Q4H PRN (Reason: shortness of breath or wheezing) aspirin [Adult Aspirin Regimen] 81 mg tablet,delayed release (DR/EC) 81 mg PO DAILY atorvastatin 80 mg tablet 80 mg PO DAILY Breztri Aerosphere 160-9-4.8 mcg/actuation HFA aerosol inhaler 2 inh inhalation BID gabapentin 300 mg capsule 300 mg PO DAILY pantoprazole 40 mg tablet,delayed release (DR/EC) 40 mg PO DAILY trazodone 100 mg tablet 100 mg PO QPM Linzess 145 mcg capsule 145 mcg PO DAILY PRN (Reason: diarrhea) zolpidem 10 mg tablet 10 mg PO QPM dicyclomine 20 mg tablet 20 mg PO QID fenofibrate nanocrystallized 48 mg tablet 48 mg PO DAILY isosorbide mononitrate 30 mg tablet extended release 24 hr 30 mg PO DAILY ropinirole 5 mg tablet 5 mg PO BEDTIME baclofen 10 mg tablet 10 mg PO Q8H ferrous sulfate 325 mg (65 mg iron) tablet,delayed release (DR/EC) 325 mg PO DAILY folic acid 1 mg tablet 1 mg PO DAILY Print Language: French Referrals: CHRIS BERMAN [Primary Care Provider] - 1 week
--- NOTE | 2024-06-13 09:00 | ED.GENADUL1 ---
HPI HPI - General Adult General Chief complaint: Altered Mental Status Stated complaint: ALTERED MENTAL Time Seen by Provider: 06/13/24 01:27 Source: other Source information: EMS Mode of arrival: ambulance Limitations: altered mental status History of Present Illness HPI narrative: 73-year-old female presents to the emergency department and was initially seen by Dr. Smith and signed out to me after discussing the case with him thoroughly. Please see his full history and physical exam. Related Data Home Medications ?Medication ?Instructions ?Recorded ?Confirmed albuterol sulfate 90 mcg/actuation 2 inh inhalation Q4H PRN shortness 03/02/24 06/13/24 aerosol inhaler of breath or wheezing aspirin 81 mg tablet,delayed 81 mg PO DAILY 03/02/24 06/13/24 release (Adult Aspirin Regimen) atorvastatin 80 mg tablet 80 mg PO DAILY 03/02/24 06/13/24 budesonide 160 mcg-glycopyr 9 2 inh inhalation BID 03/02/24 06/13/24 mcg-formot 4.8 mcg/actuation HFA inhaler (Breztri Aerosphere) gabapentin 300 mg capsule 300 mg PO Q8H 03/02/24 06/13/24 linaclotide 145 mcg capsule 145 mcg PO DAILY PRN diarrhea 03/02/24 06/13/24 (Linzess) pantoprazole 40 mg tablet,delayed 40 mg PO DAILY 03/02/24 06/13/24 release trazodone 100 mg tablet 100 mg PO QPM 03/02/24 06/13/24 zolpidem 10 mg tablet 10 mg PO QPM 03/02/24 06/13/24 baclofen 10 mg tablet 10 mg PO Q8H 06/13/24 06/13/24 dicyclomine 20 mg tablet 20 mg PO QID 06/13/24 06/13/24 fenofibrate nanocrystallized 48 mg 48 mg PO DAILY 06/13/24 06/13/24 tablet ferrous sulfate 325 mg (65 mg 325 mg PO DAILY 06/13/24 06/13/24 iron) tablet,delayed release folic acid 1 mg tablet 1 mg PO DAILY 06/13/24 06/13/24 isosorbide mononitrate 30 mg 30 mg PO DAILY 06/13/24 06/13/24 tablet,extended release 24 hr ropinirole 5 mg tablet 5 mg PO BEDTIME 06/13/24 06/13/24 Allergies Allergy/AdvReac Type Severity Reaction Status Date / Time No Known Drug Allergies Allergy Verified 03/02/24 12:42 Opioid HPI Opioid Management Most Recent Opioid Data: Last Pain Scale 8 03/09/24 10:59 03/09/24 Ur Phencyclidine Scrn Positive (NEGATIVE) A 06/13/24 02:08 06/13/24 [facility] Medical History (Updated 06/13/24 @ 06:53 by Osmel Smith MD) Neck pain ?M54.2 - Cervicalgia (ICD-10) Fibromyalgia ?M79.7 - Fibromyalgia (ICD-10) Back pain ?M54.9 - Dorsalgia, unspecified (ICD-10) Anemia ?D64.9 - Anemia, unspecified (ICD-10) Mass of right parotid gland ?K11.8 - Other diseases of salivary glands (ICD-10) AAA (abdominal aortic aneurysm) ?I71.40 - Abdominal aortic aneurysm, without rupture, unspecified (ICD-10) Bipolar disorder ?F31.9 - Bipolar disorder, unspecified (ICD-10) Dyspnea on exertion ?R06.09 - Other forms of dyspnea (ICD-10) Pulmonary nodule ?R91.1 - Solitary pulmonary nodule (ICD-10) Emphysema lung ?J43.9 - Emphysema, unspecified (ICD-10) Restless leg ?G25.81 - Restless legs syndrome (ICD-10) GERD (gastroesophageal reflux disease) ?K21.9 - Gastro-esophageal reflux disease without esophagitis (ICD-10) Constipation ?K59.00 - Constipation, unspecified (ICD-10) Diarrhea ?R19.7 - Diarrhea, unspecified (ICD-10) IBS (irritable bowel syndrome) ?K58.9 - Irritable bowel syndrome without diarrhea (ICD-10) High cholesterol ?E78.00 - Pure hypercholesterolemia, unspecified (ICD-10) Hypertension ?I10 - Essential (primary) hypertension (ICD-10) Mass of left lung (2023) ?R91.8 - Other nonspecific abnormal finding of lung field (ICD-10) Right arm weakness ?R29.898 - Other symptoms and signs involving the musculoskeletal system (ICD-10) CVA (cerebral vascular accident) (2013) ?I63.9 - Cerebral infarction, unspecified (ICD-10) Surgical History History of colonoscopy ?Z98.890 - Other specified postprocedural states (ICD-10) History of hysterectomy ?Z90.710 - Acquired absence of both cervix and uterus (ICD-10) History of cholecystectomy ?Z90.49 - Acquired absence of other specified parts of digestive tract (ICD-10) History of repair of rotator cuff ?Z98.890 - Other specified postprocedural states (ICD-10) History of arthroscopy of shoulder ?Z98.890 - Other specified postprocedural states (ICD-10) History of tubal ligation ?Z98.51 - Tubal ligation status (ICD-10) Family History Other Family history of DVT Family history of lung cancer Family history of stroke Social History (Updated 03/09/24 @ 11:07 by Magui Mckeon, RN) Within the past year, how often did you have a drink containing alcohol: monthly or less Smoking status: Former smoker Second hand tobacco smoke exposure: No Non-prescribed substance use: denies use Previous occupational history: [employer] Highest level of school completed/degree received: 10th grade Exam Constitutional Vital Signs, click to edit/add: Last Vital Signs Temp 98.6 F 06/13/24 01:46 Pulse 65 06/13/24 08:30 Resp 11 L 06/13/24 08:30 BP 124/61 06/13/24 08:30 Pulse Ox 91 L 06/13/24 08:30 O2 Del Method Nasal Cannula 06/13/24 05:00 O2 Flow Rate 2 06/13/24 05:00 Course Vital Signs Vital signs: Vital Signs Blood Pressure 111/70 06/13/24 01:24 Temperature 98.6 F 06/13/24 01:46 Pulse Rate 65 06/13/24 08:30 Respiratory Rate 11 L 06/13/24 08:30 Blood Pressure 124/61 06/13/24 08:30 Pulse Oximetry 91 L 06/13/24 08:30 Oxygen Delivery Method Nasal Cannula 06/13/24 05:00 Oxygen Delivery Flow Rate 2 06/13/24 05:00 Medical Decision Making MDM Narrative Medical decision making narrative: CTA shows known lung mass which apparently has been biopsied and is known to be cancerous. She continues to be drowsy though she seems to be increasingly alert when spoken to. She was able to answer all orientation questions correctly. She is however hypoxic when oxygen is taken off and she goes down to 80%. BiPAP is being ordered and she is being admitted to ICU. Differential Diagnosis Differential Diagnosis: Altered mental status, medication side effects, hypoxemia Lab Data Lab results reviewed: Yes I reviewed the patient's lab results Labs: Lab Results 06/13/24 06/13/24 06/13/24 Range/Units 01:30 01:40 02:08 WBC 10.7 (4.0-11.0) 10^3/uL RBC 4.26 (4.20-5.40) 10^6/uL Hgb 12.0 (12.0-16.0) g/dL Hct 38.9 (36.0-48.0) % MCV 91.3 (81.0-99.0) fL MCH 28.2 (26.7-34.0) pg MCHC 30.8 (29.9-35.2) g/dL RDW 14.7 (11.0-15.0) % Plt Count 196 (150-450) 10^3/uL MPV 11.0 (9.5-13.5) fL Neut % (Auto) 57.2 (43.0-75.0) % Lymph % (Auto) 29.4 (20.5-60.0) % [place] % (Auto) 11.0 (1.7-12.0) % Eos % (Auto) 1.5 (0.9-7.0) % Baso % (Auto) 0.5 (0.2-2.0) % Neut # (Auto) 6.1 (1.4-6.5) 10^3/uL Lymph # (Auto) 3.1 (1.2-3.8) 10^3/uL [place] # (Auto) 1.2 H (0.3-0.8) 10^3/uL Eos # (Auto) 0.2 (0.0-0.7) 10^3/uL Baso # (Auto) 0.1 (0.0-0.1) 10^3/uL Abs Immat Gran (auto) 0.04 H (0.00-0.03) 10^3/uL Imm/Tot Granulo (auto) 0.4 (0.0-0.5) % Puncture Site ABG pH (7.350-7.450) ABG pCO2 (35.0-45.0) mmHg ABG pO2 (80.0-100.0) mmHg ABG HCO3 (22.0-26.0) mmol/L ABG O2 Saturation % ABG Base Excess (-2.0-2.0) mmol/L Lars Test (POSITIVE) O2 Liters/Min Expiratory Pressure Sodium 140 (136-145) mmol/L Potassium 4.8 (3.5-5.1) mmol/L Chloride 103 (98-107) mmol/L Carbon Dioxide 33.3 H (21.0-32.0) mmol/L Anion Gap 8.5 BUN 11.0 (7.0-18.0) mg/dL Creatinine 1.06 H (0.55-1.02) mg/dL Est GFR ( Amer) >60 (>=60 mL/min/1.73m^2) Est GFR (Non-Af Amer) 51 L (>=60 mL/min/1.73m^2) BUN/Creatinine Ratio 10.4 Glucose 93 (74-106) mg/dL Lactate 1.3 (0.4-2.0) mmol/L Calcium 8.8 (8.5-10.1) mg/dL Total Bilirubin 0.5 (0.2-1.0) mg/dL AST 25 (15-37) U/L ALT 13 L (14-59) U/L Alkaline Phosphatase 121 H (46-116) U/L Troponin I High Sens 6.5 (4.0-51.3) pg/mL Total Protein 6.9 (6.4-8.2) g/dL Albumin 2.6 L (3.4-5.0) g/dL Globulin 4.3 g/dL Albumin/Globulin Ratio 0.6 Urine Color Yellow (YELLOW) Urine Clarity Clear (CLEAR) Urine pH 6.0 (5.0-9.0) Ur Specific [place] >=1.030 A (1.005-1.025) Urine Protein Trace (NEG/TRACE) mg/dL Urine Glucose (UA) Negative (NEGATIVE) mg/dL Urine Ketones Negative (NEGATIVE) mg/dL Urine Occult Blood Negative (NEGATIVE) Urine Nitrite Negative (NEGATIVE) Urine Bilirubin Negative (NEGATIVE) Urine Urobilinogen 1.0 (0.2-1.0) EU/dL Ur Leukocyte Esterase Negative (NEGATIVE) Salicylates <2.8 (<=19.9) mg/dL Urine Opiates Screen Negative (NEGATIVE) Ur Buprenorphine Scrn Negative (NEGATIVE) Ur Oxycodone Screen Negative (NEGATIVE) Urine Methadone Screen Negative (NEGATIVE) Acetaminophen <2.0 L (10.0-30.0) ug/mL Ur Barbiturates Screen Negative (NEGATIVE) U Tricyclic Antidepress Negative (NEGATIVE) Ur Phencyclidine Scrn Positive A (NEGATIVE) Ur Amphetamines Screen Negative (NEGATIVE) U Methamphetamines Scrn Negative (NEGATIVE) U Benzodiazepines Scrn Negative (NEGATIVE) Urine Cocaine Screen Negative (NEGATIVE) U Cannabinoids Screen Negative (NEGATIVE) Ethanol Quant <3 mg/dL POC Glucose 104 (74-106) mg/dL 06/13/24 Range/Units 02:15 WBC (4.0-11.0) 10^3/uL RBC (4.20-5.40) 10^6/uL Hgb (12.0-16.0) g/dL Hct (36.0-48.0) % MCV (81.0-99.0) fL MCH (26.7-34.0) pg MCHC (29.9-35.2) g/dL RDW (11.0-15.0) % Plt Count (150-450) 10^3/uL MPV (9.5-13.5) fL Neut % (Auto) (43.0-75.0) % Lymph % (Auto) (20.5-60.0) % [place] % (Auto) (1.7-12.0) % Eos % (Auto) (0.9-7.0) % Baso % (Auto) (0.2-2.0) % Neut # (Auto) (1.4-6.5) 10^3/uL Lymph # (Auto) (1.2-3.8) 10^3/uL [place] # (Auto) (0.3-0.8) 10^3/uL Eos # (Auto) (0.0-0.7) 10^3/uL Baso # (Auto) (0.0-0.1) 10^3/uL Abs Immat Gran (auto) (0.00-0.03) 10^3/uL Imm/Tot Granulo (auto) (0.0-0.5) % Puncture Site R radial ABG pH 7.332 L (7.350-7.450) ABG pCO2 57.8 H* (35.0-45.0) mmHg ABG pO2 81.3 (80.0-100.0) mmHg ABG HCO3 30.6 H (22.0-26.0) mmol/L ABG O2 Saturation 95.8 % ABG Base Excess 4.7 H (-2.0-2.0) mmol/L Lars Test Positive (POSITIVE) O2 Liters/Min 3.5 Expiratory Pressure Not Reportable Sodium (136-145) mmol/L Potassium (3.5-5.1) mmol/L Chloride (98-107) mmol/L Carbon Dioxide (21.0-32.0) mmol/L Anion Gap BUN (7.0-18.0) mg/dL Creatinine (0.55-1.02) mg/dL Est GFR ( Amer) (>=60 mL/min/1.73m^2) Est GFR (Non-Af Amer) (>=60 mL/min/1.73m^2) BUN/Creatinine Ratio Glucose (74-106) mg/dL Lactate (0.4-2.0) mmol/L Calcium (8.5-10.1) mg/dL Total Bilirubin (0.2-1.0) mg/dL AST (15-37) U/L ALT (14-59) U/L Alkaline Phosphatase (46-116) U/L Troponin I High Sens (4.0-51.3) pg/mL Total Protein (6.4-8.2) g/dL Albumin (3.4-5.0) g/dL Globulin g/dL Albumin/Globulin Ratio Urine Color (YELLOW) Urine Clarity (CLEAR) Urine pH (5.0-9.0) Ur Specific [place] (1.005-1.025) Urine Protein (NEG/TRACE) mg/dL Urine Glucose (UA) (NEGATIVE) mg/dL Urine Ketones (NEGATIVE) mg/dL Urine Occult Blood (NEGATIVE) Urine Nitrite (NEGATIVE) Urine Bilirubin (NEGATIVE) Urine Urobilinogen (0.2-1.0) EU/dL Ur Leukocyte Esterase (NEGATIVE) Salicylates (<=19.9) mg/dL Urine Opiates Screen (NEGATIVE) Ur Buprenorphine Scrn (NEGATIVE) Ur Oxycodone Screen (NEGATIVE) Urine Methadone Screen (NEGATIVE) Acetaminophen (10.0-30.0) ug/mL Ur Barbiturates Screen (NEGATIVE) U Tricyclic Antidepress (NEGATIVE) Ur Phencyclidine Scrn (NEGATIVE) Ur Amphetamines Screen (NEGATIVE) U Methamphetamines Scrn (NEGATIVE) U Benzodiazepines Scrn (NEGATIVE) Urine Cocaine Screen (NEGATIVE) U Cannabinoids Screen (NEGATIVE) Ethanol Quant mg/dL POC Glucose (74-106) mg/dL Imaging Data Chest x-ray: Radiologist's impression: ITS Impressions Brain CT 06/13/24 01:27 IMPRESSION: 1. No CT evidence of an acute intracranial hemorrhage or acute ischemic event. 2. Intracranial volume loss with superimposed remote infarctions and probable superimposed chronic microvascular ischemic change. Electronically authenticated by: ETIENNE REYES Date: 06/13/2024 02:40 Chest X-Ray 06/13/24 01:27 IMPRESSION: The previously seen pleural-based masslike density within the lateral aspect of the left mid and upper chest is improved with a residual 3.4 cm nodular density within the lateral aspect of the left mid chest. There is mild patchy density at the left lung base suggesting atelectasis and/or infiltrate. Electronically authenticated by: GABY WEBSTER Date: 06/13/2024 04:38 Chest CTA 06/13/24 06:42 IMPRESSION: There is no pulmonary embolus. There is consolidation at both posterior costophrenic angle suggesting atelectasis and/or infiltrates. There is paraseptal emphysema. New 6.2 mm noncalcified left upper lobe nodule (series 4 image 28). There is a 2.6 x 2.4 x 3.5 cm spiculated pleural-based left upper lobe mass which is larger compared to the PET/CT examination however more extensive masslike density was seen peripherally within the left mid and upper chest on the previous chest radiograph. This is highly suspicious for malignancy. The irregular areas of hypoattenuation within the mass suggests necrosis. There are no pathologically enlarged lymph nodes. Appropriate clinical management is recommended. Mild cardiomegaly. Atherosclerotic disease as described. The liver may be fatty infiltrated. Electronically authenticated by: GABY WEBSTER Date: 06/13/2024 08:21 Discharge Plan Discharge Chief Complaint: Altered Mental Status Clinical Impression: Altered mental status, Acute hypoxemic respiratory failure Patient Disposition: Admitted As Inpatient Time of Disposition Decision: 08:59 Condition: Fair
[2024-06-13 13:23] LABS: pH ABG 7.371 (7.350-7.450)
[2024-06-13 13:24] LABS: Allen Test POSITIVE (POSITIVE); Base Excess ABG 6.9 mmol/L (-2.0-2.0); HCO3 ABG 32.2 mmol/L (22.0-26.0); Liters per Minute 3; O2 Mode NC; PO2 ABG 73.9 mmHg (80.0-100.0); Puncture Site RR
[2024-06-13 13:26] LABS: ABG PCO2 55.6 mmHg (35.0-45.0)
--- NOTE | 2024-06-13 13:38 | MR_ITS ---
The [address] [address] Patient Name: BHUPENDRA MIRANDA MRN: [facility]:[id number] date: 1950 Sex: F Assigned Patient Location: ICU Current Patient Location: ICU Accession/Order Number: [id number] Exam Date: 06/13/2024 06:45 Report Date: 06/14/2024 08:09 At the request of: SHAIKH AMRITA Procedure: MR head/brain wo/w con EXAM: MR head/brain wo/w con HISTORY: New onset Seizure, hx of small cell lung cancer COMPARISON: CT head 06/13/2024. TECHNIQUE: Multiplanar multisequence MR imaging of the brain was performed with and without intravenous contrast. FINDINGS: Calvarium/skull base: No focal marrow replacing lesion suggestive of neoplasm. Orbits: Grossly unremarkable. Paranasal sinuses: Imaged portions clear Brain: No restricted diffusion. Remote tiny police patrol lieutenant infarct involving the left cerebellum. Remote infarct involving the posterior left MCA distribution with additional smaller areas of remote infarct involving the right frontal lobe and left greater than right caudate. Small remote lacunar infarct involving the right thalamus. Associated gliosis is noted with superimposed mild T2 FLAIR signal hyperintensities which most commonly relates to sequela of small vessel disease. No abnormal intracranial enhancement. No mass effect, hemorrhage, or hydrocephalus. Grossly normal flow-related signal in the major intracranial arteries and dural sinuses. MR/MR head/brain wo/w con IMPRESSION: 1. No acute intracranial process. Typically no evidence for acute ischemia or mass. 2. Chronic changes described above. Electronically authenticated by: OSCAR CURTIS Date: 06/14/2024 08:09
[2024-06-13] MEDS: BACLOFEN 10 MG TABLET PO ×2 (13:39→21:12)
[2024-06-13] MEDS: CEFTRIAXONE 1,000 MG in 0.9 % SODIUM CHLORIDE 50 ML 100 MG IV (13:39)
[2024-06-13] MEDS: ENOXAPARIN SODIUM 40 MG/0.4 ML SYRINGE SUBQ (13:39)
[2024-06-13] MEDS: GABAPENTIN 300 MG CAPSULE PO ×2 (13:39→21:12)
--- NOTE | 2024-06-13 13:39 | P.HP_ITS ---
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 This was witnessed by her partner who informed me that patient was confused and would not respond to him. The event lasted about 15 minutes and had resolved by the time EMS arrived. Afterwards patient was confused/drowsy and had no recollection of the event. She was brought over to ER for further evaluation. Her work up was unremarkable except for mild hypercapnia noted on ABG. She also had PCP in her urine but she denies using drugs. I know her as a patient when I was doing outpatient and I am inclined towards believing her based on my prior interactions with her. She has no hx of substance abuse in the past. She also had CT chest that revealed possible b/l infiltrates vs atelectasis and worsening/increased size of her lung mass. She had CTH that did not reveal any sig/acute finding. Patient had already become more awake and alert when I got involved in her care. She was briefly placed on BIPAP but then taken off. She also needed 2 L O2 via NC overnight with Pulse OX as low as 87%. She denies any resp complaints and denies cough, fever or SOB. Patient does not remember anything about what happened at home and her first memory is that she was in ED. I spoke to her partner who told me that she had similar incident/event happened in December when she was in the car with him. She had shaking movement of her upper body with confusion that lasted a few minutes. She was taken to [facility] and discharged from ED and was told that low BP had caused her symptoms. Patient is currently on 2 L O2 via NC, and alert/oriented with no active complaints to offer. Opioid HPI Opioid Management Most Recent Pain and Opioid Data: Last Pain Scale 8 03/09/24 10:59 03/09/24 Last Pain Assessment 06/13/24 14:00 Last ORT Total Score 2 06/13/24 10:47 06/13/24 Last ORT Risk Category Low Risk 06/13/24 10:47 06/13/24 Ur Phencyclidine Scrn Positive (NEGATIVE) A 06/13/24 02:08 Review of Systems ROS Status of ROS 10 or more systems reviewed and unremark able except as noted in history and below [facility] Medical History (Updated 06/13/24 @ 14:02 by Shaikh Aung MD) H/O stroke without residual deficits ?Z86.73 - Personal history of transient ischemic attack (TIA), and cerebral infarction without residual deficits (ICD-10) COPD (chronic obstructive pulmonary disease) ?J44.9 - Chronic obstructive pulmonary disease, unspecified (ICD-10) Small cell lung cancer ?C34.90 - Malignant neoplasm of unspecified part of unspecified bronchus or lung (ICD-10) Neck pain ?M54.2 - Cervicalgia (ICD-10) Fibromyalgia ?M79.7 - Fibromyalgia (ICD-10) Back pain ?M54.9 - Dorsalgia, unspecified (ICD-10) Anemia ?D64.9 - Anemia, unspecified (ICD-10) Mass of right parotid gland ?K11.8 - Other diseases of salivary glands (ICD-10) AAA (abdominal aortic aneurysm) ?I71.40 - Abdominal aortic aneurysm, without rupture, unspecified (ICD-10) Bipolar disorder ?F31.9 - Bipolar disorder, unspecified (ICD-10) Dyspnea on exertion ?R06.09 - Other forms of dyspnea (ICD-10) Pulmonary nodule ?R91.1 - Solitary pulmonary nodule (ICD-10) Emphysema lung ?J43.9 - Emphysema, unspecified (ICD-10) Restless leg ?G25.81 - Restless legs syndrome (ICD-10) GERD (gastroesophageal reflux disease) ?K21.9 - Gastro-esophageal reflux disease without esophagitis (ICD-10) Constipation ?K59.00 - Constipation, unspecified (ICD-10) Diarrhea ?R19.7 - Diarrhea, unspecified (ICD-10) IBS (irritable bowel syndrome) ?K58.9 - Irritable bowel syndrome without diarrhea (ICD-10) High cholesterol ?E78.00 - Pure hypercholesterolemia, unspecified (ICD-10) Hypertension ?I10 - Essential (primary) hypertension (ICD-10) Mass of left lung (2023) ?R91.8 - Other nonspecific abnormal finding of lung field (ICD-10) Right arm weakness ?R29.898 - Other symptoms and signs involving the musculoskeletal system (ICD-10) CVA (cerebral vascular accident) (2014) ?I63.9 - Cerebral infarction, unspecified (ICD-10) Surgical History History of colonoscopy ?Z98.890 - Other specified postprocedural states (ICD-10) History of hysterectomy ?Z90.710 - Acquired absence of both cervix and uterus (ICD-10) History of cholecystectomy ?Z90.49 - Acquired absence of other specified parts of digestive tract (ICD- 10) History of repair of rotator cuff ?Z98.890 - Other specified postprocedural states (ICD-10) History of arthroscopy of shoulder ?Z98.890 - Other specified postprocedural states (ICD-10) History of tubal ligation ?Z98.51 - Tubal ligation status (ICD-10) Family History Other Family history of DVT Family history of lung cancer Family history of stroke Social History (Updated 03/09/24 @ 11:07 by Magui Mckeon, RN) Within the past year, how often did you have a drink containing alcohol: monthly or less Smoking status: Former smoker Second hand tobacco smoke exposure: No Non-prescribed substance use: denies use Previous occupational history: [employer] Highest level of school completed/degree received: 10th grade Little interest or pleasure in doing things: not at all Feeling down, depressed, or hopeless: not at all Meds Home Medications and Allergies Home Medications ?Medication ?Instructions ?Recorded ?Confirmed ?Type albuterol sulfate 90 mcg/actuation 2 inh inhalation Q4H PRN shortness 03/02/24 06/13/24 History aerosol inhaler of breath or wheezing aspirin 81 mg tablet,delayed 81 mg PO DAILY 03/02/24 06/13/24 History release (Adult Aspirin Regimen) atorvastatin 80 mg tablet 80 mg PO DAILY 03/02/24 06/13/24 History budesonide 160 mcg-glycopyr 9 2 inh inhalation BID 03/02/24 06/13/24 History mcg-formot 4.8 mcg/actuation HFA inhaler (Breztri Aerosphere) gabapentin 300 mg capsule 300 mg PO Q8H 03/02/24 06/13/24 History linaclotide 145 mcg capsule 145 mcg PO DAILY PRN diarrhea 03/02/24 06/13/24 History (Linzess) pantoprazole 40 mg tablet,delayed 40 mg PO DAILY 03/02/24 06/13/24 History release trazodone 100 mg tablet 100 mg PO QPM 03/02/24 06/13/24 History zolpidem 10 mg tablet 10 mg PO QPM 03/02/24 06/13/24 History baclofen 10 mg tablet 10 mg PO Q8H 06/13/24 06/13/24 History dicyclomine 20 mg tablet 20 mg PO QID 06/13/24 06/13/24 History fenofibrate nanocrystallized 48 mg 48 mg PO DAILY 06/13/24 06/13/24 History tablet ferrous sulfate 325 mg (65 mg 325 mg PO DAILY 06/13/24 06/13/24 History iron) tablet,delayed release folic acid 1 mg tablet 1 mg PO DAILY 06/13/24 06/13/24 History isosorbide mononitrate 30 mg 30 mg PO DAILY 06/13/24 06/13/24 History tablet,extended release 24 hr ropinirole 5 mg tablet 5 mg PO BEDTIME 06/13/24 06/13/24 History Allergies Allergy/AdvReac Type Severity Reaction Status Date / Time No Known Drug Allergies Allergy Verified 03/02/24 12:42 Exam Constitutional Vital Signs, click to edit/add: Last Vital Signs Temp 98.0 F 06/13/24 10:47 Pulse 64 06/13/24 12:20 Resp 20 06/13/24 10:53 BP 156/83 H 06/13/24 12:07 Pulse Ox 98 06/13/24 12:20 O2 Del Method BIPAP 06/13/24 12:33 O2 Flow Rate 3 06/13/24 10:47 FiO2 30 06/13/24 12:33 Documenting provider has reviewed patient's vital signs: yes Common normals: no apparent distress and oriented x3 General appearance: cooperative HENMT Common normals: normocephalic and head/scalp atraumatic Head and scalp: normocephalic and atraumatic Eye Common normals: conjunctivae normal and no scleral icterus Conjunctiva: conjunctiva(e) normal Respiratory Common normals: normal respiratory effort and clear to auscultation bilaterally Effort & inspection: able to speak in complete sentences Auscultation: clear to auscultation bilaterally Cardio Common normals: regular rate, S1 normal heart sound and S2 normal heart sound Rate: regular rate Heart sounds: S1 normal and S2 normal GI Common normals: Normal to inspection, nondistended, normoactive bowel sounds present, soft to palpation, non-tender and no hepatosplenomegaly Palpation: soft and no hepatosplenomegaly Extremity Common normals: no clubbing, cyanosis or edema Neuro Common normals: oriented x3 and moves all extremities Other: Mild left sided weakness, mild dysarthria and expressive aphasia from prior stroke Psych Common normals: mental status grossly normal, denies hallucinations, denies homicidal ideation and denies suicidal ideation Results Labs Labs: Short CBC 06/13/24 Range/Units 01:30 WBC 10.7 (4.0-11.0) 10^3/uL Hgb 12.0 (12.0-16.0) g/dL Hct 38.9 (36.0-48.0) % Plt Count 196 (150-450) 10^3/uL BMP 06/13/24 01:30 Sodium 140 Potassium 4.8 Chloride 103 Carbon Dioxide 33.3 H BUN 11.0 Creatinine 1.06 H Glucose 93 Calcium 8.8 Liver Function 06/13/24 Range/Units 01:30 Total Bilirubin 0.5 (0.2-1.0) mg/dL AST 25 (15-37) U/L ALT 13 L (14-59) U/L Alkaline Phosphatase 121 H (46-116) U/L Albumin 2.6 L (3.4-5.0) g/dL Urine 06/13/24 Range/Units 02:08 Urine Color Yellow (YELLOW) Urine Clarity Clear (CLEAR) Urine pH 6.0 (5.0-9.0) Ur Specific [place] >=1.030 A (1.005-1.025) Urine Protein Trace (NEG/TRACE) mg/dL Urine Glucose (UA) Negative (NEGATIVE) mg/dL ABG ABG results: 06/13/24 06/13/24 02:15 13:17 ABG pH 7.332 L 7.371 ABG pCO2 57.8 H* 55.6 H* ABG pO2 81.3 73.9 L ABG HCO3 30.6 H 32.2 H ABG O2 Saturation 95.8 95.0 ABG Base Excess 4.7 H 6.9 H Assessment and Plan Assessment and Plan (1) Acute hypercapnic respiratory failure: Assessment and Plan: Mild hypercapnia noted on ABG. There likely is mild chronic component to it. Repeat ABG tomorrow. Bipap as needed and qhs. (2) Acute hypoxemic respiratory failure: Assessment and Plan: 87% on RA, was unable to be weaned off. basal infiltrates vs pna on CT chest. Wean off as tolerated. (3) Witnessed seizure-like activity: Assessment and Plan: Suspected generalized seizures - two similar episodes. No prior hx of seizures Currently being worked up for small cell lung cancer. No abnormal finding on CTH. Brain MRI with/w/o contrast ordered as new onset seizures could be due to metastatic lung cancer. Tele neuro consulted. (4) Basal pneumonia of both lungs: Assessment and Plan: Started on rocephin/azithromycin. Associated with hypoxia/hypercapnia. PSI index --> 131 Points, risk class V. Risk of mortality 27-29% Needs close monitoring, treatment given her risk factors including hx of CVA, Neoplastic disease, pH less 7.35. (5) Small cell lung cancer: Assessment and Plan: New diagnosis, has not started treatment yet. MRI brain ordered to r/o metastatic disease. Qualifiers: Laterality: left Lung location: upper lobe of lung Qualified Code(s): C34.12 - Malignant neoplasm of upper lobe, left bronchus or lung (6) Metabolic encephalopathy: Assessment and Plan: This could be post ictal confusion vs mild hypercapnia related. She is back to her baseline. I am leaning more towards post ictal confusion based on the sequence of events and improvement in her mental status before BIPAP was even started. (7) COPD (chronic obstructive pulmonary disease): Assessment and Plan: no active wheezing or bronchospasm. C/w breztri. C/w duonebs as needed Qualifiers: COPD type: emphysema Emphysema type: centrilobular Qualified Code(s): J43.2 - Centrilobular emphysema (8) Dyspnea on exertion: Assessment and Plan: Chronic PRECIADO due to COPD/lung cancer. Requiring O2 supplementation (9) Restless leg: Assessment and Plan: C/w requip (10) IBS (irritable bowel syndrome): Assessment and Plan: On Linzesyanci Qualifiers: Irritable bowel syndrome type: with constipation Qualified Code(s): K58.1 - Irritable bowel syndrome with constipation (11) Hypertension: Assessment and Plan: Stable. IVhydralazine as needed. Resume home medications. Qualifiers: Hypertension type: primary hypertension Qualified Code(s): I10 - Essential (primary) hypertension (12) Fibromyalgia: Assessment and Plan: c.w gabapentin. Monitor closely for hypercapnia (13) H/O stroke without residual deficits: Assessment and Plan: c/w statin, statin
[2024-06-13] MEDS: IPRATROPIUM/ALBUTEROL SULFATE 3 ML AMPUL.NEB IH ×2 (16:30→22:53)
[2024-06-13] MEDS: LACOSAMIDE 50 MG TABLET 200 MG PO (17:24)
[2024-06-13] MEDS: DICYCLOMINE HCL 10 MG CAPSULE 20 MG PO ×2 (17:24→21:12)
[2024-06-13] MEDS: TRAZODONE HCL 50 MG TABLET 100 MG PO (21:11)
[2024-06-13] MEDS: ROPINIROLE HCL 1 MG TABLET 5 MG PO (21:12)
[2024-06-13] MEDS: BUDESONIDE 0.5 MG/2 ML AMPULE NEB IH (22:54)
[2024-06-14] VITALS (31 sets, daily range): BP systolic 108–164; BP diastolic 49–76; PULSE 66–89; RESP 16; TEMP 36.3–36.6; O2SAT 89–99
[2024-06-14] MEDS: IPRATROPIUM/ALBUTEROL SULFATE 3 ML AMPUL.NEB IH ×3 (04:10→16:26)
[2024-06-14 05:56] LABS: Basophils Absolute Auto 0.1 10^3/uL (0.0-0.1); Basophils Percent Auto 0.4 % (0.2-2.0); Eosinophils Absolute Auto 0.1 10^3/uL (0.0-0.7); Eosinophils Percent Auto 0.9 % (0.9-7.0); Hematocrit 39.7 % (36.0-48.0); Immature Granulocytes Abs Auto 0.03 10^3/uL (0.00-0.03); Immature Granulocytes Pct Auto 0.3 % (0.0-0.5); Lymphocytes Absolute Auto 2.6 10^3/uL (1.2-3.8); Mean Corpuscular HGB Conc 30.2 g/dL (29.9-35.2); Mean Corpuscular Hemoglobin 27.5 pg (26.7-34.0); Mean Corpuscular Volume 91.1 fL (81.0-99.0); Mean Platelet Volume 10.6 fL (9.5-13.5); Monocytes Percent Auto 8.3 % (1.7-12.0); Neutrophils Absolute Auto 7.9 10^3/uL (1.4-6.5); Neutrophils Percent Auto 68.1 % (43.0-75.0); Platelet Count 329 10^3/uL (150-450); Red Blood Count 4.36 10^6/uL (4.20-5.40); Red Cell Distribution Width 14.6 % (11.0-15.0); White Blood Count 11.7 10^3/uL (4.0-11.0)
[2024-06-14 06:26] LABS: Alanine Aminotransferase 14 U/L (14-59); Albumin Level 2.6 g/dL (3.4-5.0); Alkaline Phosphatase 124 U/L (46-116); Anion Gap 10.7; Aspartate Amino Transferase 10 U/L (15-37); BUN Creatinine Ratio 9.9; Bilirubin Total 0.4 mg/dL (0.2-1.0); Calcium 8.9 mg/dL (8.5-10.1); Carbon Dioxide 33.7 mmol/L (21.0-32.0); Chloride 103 mmol/L (98-107); Estimated GFR (African America >60 (>=60 mL/min/1.73m^2); Estimated GFR (Non-African Ame 54 (>=60 mL/min/1.73m^2); Glucose 117 mg/dL (74-106); Potassium 4.4 mmol/L (3.5-5.1); Sodium 143 mmol/L (136-145); Total Protein 6.6 g/dL (6.4-8.2)
[2024-06-14 06:29] LABS: Albumin Globulin Ratio 0.7
[2024-06-14] MEDS: GABAPENTIN 300 MG CAPSULE PO ×2 (08:47→21:09)
[2024-06-14] MEDS: OMEPRAZOLE 40 MG CAPSULE.DR PO (08:47)
[2024-06-14] MEDS: FERROUS SULFATE 325 MG TABLET PO (08:47)
[2024-06-14] MEDS: ASPIRIN 81 MG TABLET.DR PO (08:47)
[2024-06-14] MEDS: ENOXAPARIN SODIUM 40 MG/0.4 ML SYRINGE SUBQ (08:47)
[2024-06-14] MEDS: FOLIC ACID 1 MG TABLET PO (08:47)
[2024-06-14] MEDS: LACOSAMIDE 50 MG TABLET 100 MG PO (08:48)
[2024-06-14] MEDS: BACLOFEN 10 MG TABLET PO ×2 (08:48→21:43)
[2024-06-14] MEDS: ISOSORBIDE MONONITRATE 30 MG TAB.ER.24H PO (08:48)
[2024-06-14] MEDS: DICYCLOMINE HCL 10 MG CAPSULE 20 MG PO ×2 (08:48→21:08)
[2024-06-14] MEDS: AZITHROMYCIN 250 MG TABLET 500 MG PO (08:48)
[2024-06-14] MEDS: FENOFIBRATE 54 MG TABLET PO (08:50)
--- NOTE | 2024-06-14 09:40 | CM.NOTE ---
Rounds made with Dr. Horan, pt lethargic this AM. Results of MRI discussed with pt, pt will also need EEG and ABG today. Teleneuro also consulted for further recommendations.
--- NOTE | 2024-06-14 10:32 | PT.DAILY ---
Physical Therapy Daily Note PT Daily Note/Assess Start: 06/14/24 10:29 Freq: Status: Active Protocol: Document 06/14/24 09:00 SALUD (Rec: 06/14/24 10:32 SALUD [id number]) Visit Not Completed Visit Not Completed Visit Not Completed Due to: Pt level of alertness Other Reason Visit Not Completed Patient very tired this AM, hard to arouse. Does wake up and answer some questions but then would doze off. Notified nursing. Physical Therapy Daily Note/Assessment Time In/Time Out Time In 09:00 Time Out 09:00 GG. Functional Abilities and Goals-Complete for Swing Bed Patients Only [id number]. Self-Care [id number]. Mobility
--- NOTE | 2024-06-14 10:35 | PM.IMPN1 ---
Progress Note: A&P Assessment and Plan (1) Acute hypercapnic respiratory failure: Assessment and Plan: Due to PNA/underlying COPD. Was on BIAP at night. Patient drowsy and lethargic in the morning. Ordered ABG (2) Acute hypoxemic respiratory failure: Assessment and Plan: Still needing 3 L, c/w IV abx. Wean off O2 as tolerated. (3) Witnessed seizure-like activity: Assessment and Plan: Neurology consulted. Started on Vimpat. MRI w contrast - no acute finding, no evidence of mets. EEG pending. However, patient drowsy/lethargic in the morning. If her ABG is normal//not indicative of hypercapnia, we will have to consider subclinical seizures overnight resulting in her current mental status and in that case, she may have to be transferred for Video EEG/[facility] monitoring. (4) Basal pneumonia of both lungs: Assessment and Plan: On IV rocephin/azithromycin. Still needing O2. Mild cough but no resp distress. (5) Small cell lung cancer: Assessment and Plan: Increased size on CT. No mets in brain on MRI. Has not started treatment yet. Qualifiers: Laterality: left Lung location: upper lobe of lung Qualified Code(s): C34.12 - Malignant neoplasm of upper lobe, left bronchus or lung (6) Metabolic encephalopathy: Assessment and Plan: Had improved and was at her baseline yesterday. But lethargic/drowsy today in the morning. No acute finding on MRI. Repeat ABG. If no hypercapnia, will discuss with neurology for possible sub clinical seizures, continuous video EEG monitoring. (7) COPD (chronic obstructive pulmonary disease): Assessment and Plan: No active bronchospasm. C/w duonebs Qualifiers: COPD type: emphysema Emphysema type: centrilobular Qualified Code(s): J43.2 - Centrilobular emphysema (8) Dyspnea on exertion: Assessment and Plan: Chronic, unchanged. Monitor. (9) Restless leg: Assessment and Plan: C/w requip (10) IBS (irritable bowel syndrome): Assessment and Plan: On Linzess. Qualifiers: Irritable bowel syndrome type: with constipation Qualified Code(s): K58.1 - Irritable bowel syndrome with constipation (11) Hypertension: Assessment and Plan: Stable BP. Qualifiers: Hypertension type: primary hypertension Qualified Code(s): I10 - Essential (primary) hypertension (12) Fibromyalgia: Assessment and Plan: c/w gabapentin (13) H/O stroke without residual deficits: Assessment and Plan: C/w ASA, statin. Internal Medicine - PN: Subj Subjective Interval history: Seen and examined. No overnight events. Patient used BIPAP overnight. However, lethargic/drowsy in the morning. Still on 3 L O2 via NC. Exam Constitutional Vital Signs, click to edit/add: Last Vital Signs Temp 97.8 F 06/14/24 07:58 Pulse 71 06/14/24 10:00 Resp 19 06/14/24 06:00 BP 164/76 H 06/14/24 07:52 Pulse Ox 94 L 06/14/24 08:00 O2 Del Method BIPAP 06/14/24 04:10 O2 Flow Rate 3 06/14/24 07:58 FiO2 3 06/14/24 04:10 Documenting provider has reviewed patient's vital signs: yes Common normals: no apparent distress and oriented x3 General appearance: cooperative Respiratory Common normals: normal respiratory effort and no use of accessory muscles Effort & inspection: able to speak in complete sentences Other: Coarse breath sounds Cardio Common normals: regular rate, S1 normal heart sound and S2 normal heart sound Rate: regular rate Heart sounds: S1 normal and S2 normal GI Common normals: Normal to inspection, nondistended, normoactive bowel sounds present, soft to palpation, non-tender and no hepatosplenomegaly Palpation: soft and no hepatosplenomegaly Extremity Common normals: no clubbing, cyanosis or edema Neuro Common normals: oriented x3 and moves all extremities Other: Mild left sided weakness, mild dysarthria and expressive aphasia from prior stroke Psych Common normals: mental status grossly normal, denies hallucinations, denies homicidal ideation and denies suicidal ideation Internal Medicine - PN: Obj Da Labs Labs: Laboratory Results - last 24 hr 06/13/24 06/14/24 13:17 04:47 WBC 11.7 H RBC 4.36 Hgb 12.0 Hct 39.7 MCV 91.1 MCH 27.5 MCHC 30.2 RDW 14.6 Plt Count 329 MPV 10.6 Neut % (Auto) 68.1 Lymph % (Auto) 22.0 Perry % (Auto) 8.3 Eos % (Auto) 0.9 Baso % (Auto) 0.4 Neut # (Auto) 7.9 H Lymph # (Auto) 2.6 Perry # (Auto) 1.0 H Eos # (Auto) 0.1 Baso # (Auto) 0.1 Abs Immat Gran (auto) 0.03 Imm/Tot Granulo (auto) 0.3 Puncture Site Rr ABG pH 7.371 ABG pCO2 55.6 H* ABG pO2 73.9 L ABG HCO3 32.2 H ABG O2 Saturation 95.0 ABG Base Excess 6.9 H Lars Test Positive O2 Liters/Min 3 Sodium 143 Potassium 4.4 Chloride 103 Carbon Dioxide 33.7 H Anion Gap 10.7 BUN 10.0 Creatinine 1.01 Est GFR ( Amer) >60 Est GFR (Non-Af Amer) 54 L BUN/Creatinine Ratio 9.9 Glucose 117 H Calcium 8.9 Total Bilirubin 0.4 AST 10 L ALT 14 Alkaline Phosphatase 124 H Total Protein 6.6 Albumin 2.6 L Globulin 4.0 Albumin/Globulin Ratio 0.7
[2024-06-14] MEDS: BUDESONIDE 0.5 MG/2 ML AMPULE NEB IH (10:45)
--- NOTE | 2024-06-14 10:51 | REH.PTDLY ---
Physical Therapy Daily Note PT Daily Note/Assess Start: 06/14/24 10:29 Freq: Status: Active Protocol: Document 06/14/24 10:49 CORBIN (Rec: 06/14/24 10:51 CORBIN [id number]) Visit Not Completed Visit Not Completed Due to: Pt level of alertness Other Reason Visit Not Completed Second attempt from therapy dept to rx pt. Pt is very lethargic, opens eyes for about 15 seconds to say she got sick during the night and is not feeling well and then closes eyes again and does not respond to any further questions. Unable to rx today due to this. Nursing notified. Physical Therapy Daily Note/Assessment Time In 10:48 Time Out 10:51
[2024-06-14 11:04] LABS: Allen Test POSITIVE (POSITIVE); Base Excess ABG 7.9 mmol/L (-2.0-2.0); HCO3 ABG 32.7 mmol/L (22.0-26.0); Oxygen Saturation ABG 94.5 %; pH ABG 7.402 (7.350-7.450)
[2024-06-14 11:05] LABS: ABG PCO2 52.5 mmHg (35.0-45.0); Liters per Minute 3; O2 Mode NC
[2024-06-14] MEDS: CEFTRIAXONE 1,000 MG in 0.9 % SODIUM CHLORIDE 50 ML 100 MG IV (13:25)
--- NOTE | 2024-06-14 13:52 | CM.NOTE ---
Important Message From Medicare discussed with pt, pt verbalizes understanding and signs paper. Original given to pt and copy placed in pt's chart.
--- NOTE | 2024-06-14 15:37 | CT_ITS ---
The [address] [address] Patient Name: BHUPENDRA MIRANDA MRN: [id number] date: 1950 Sex: F Assigned Patient Location: ICU Current Patient Location: ICU Accession/Order Number: [id number] Exam Date: 06/14/2024 16:05 Report Date: 06/14/2024 16:40 At the request of: SHAIKH AMRITA Procedure: CT head/brain wo con CT HEAD WITHOUT CONTRAST. INDICATION: Confused. COMPARISON: 06/13/2022 TECHNIQUE: Axial CT head images from the skull base to the vertex without IV contrast were acquired. Coronal and sagittal reformats were also obtained. FINDINGS: EXTRA-AXIAL SPACE: Age-appropriate ventricles. No acute extra-axial collection. No extra-axial mass. No midline shift. CEREBRUM: There are areas of periventricular and deep white matter low-attenuation, which is nonspecific but likely reflective of chronic microvascular ischemic disease.. There is left frontal parietal lobe encephalomalacia.. No CT evidence of acute large territorial cortical infarct, hemorrhage or mass effect. CEREBELLUM: No focal abnormality. No CT evidence of acute infarct, hemorrhage or mass effect. BRAINSTEM: No focal abnormality. No CT evidence of acute infarct, hemorrhage or mass effect. EXTRACRANIAL STRUCTURES. There is mucosal thickening of the left maxillary sinus. Mastoid air cells are clear. Orbits are unremarkable. No discrete pituitary mass. Intact calvarium. CT/CT head/brain wo con IMPRESSION: No acute intracranial abnormality. Electronically authenticated by: JUNITO WILKINSON Date: 06/14/2024 16:40
--- NOTE | 2024-06-14 17:49 | PC.NURSE ---
drew mcneill made aware of [facility] transport and room number at [facility]
--- NOTE | 2024-06-14 18:13 | P.DS_ITS ---
DS: Providers Provider Date of admission: 06/13/24 10:38 Primary care physician: CHRIS BERMAN Admitting clinician: Shaikh Aung Attending physician on admission: Shaikh Aung Consults: 06/13/24 12:33 Physical Therapy Eval and Treat Routine Reason for consultation: Ambulatory dysfunction/weakness 06/13/24 13:38 Consult to TeleNeurology Routine Reason for consultation: Suspected seizures Attending physician on discharge: Shaikh Aung Discharging clinician: Shaikh Aung Anticipated date of discharge: 06/14/24 DS: Diagnosis Discharge Diagnosis (1) Acute hypercapnic respiratory failure: (2) Acute hypoxemic respiratory failure: (3) Witnessed seizure-like activity: (4) Basal pneumonia of both lungs: (5) Small cell lung cancer: Qualifiers: Laterality: left Lung location: upper lobe of lung Qualified Code(s): C34.12 - Malignant neoplasm of upper lobe, left bronchus or lung (6) Metabolic encephalopathy: (7) COPD (chronic obstructive pulmonary disease): Qualifiers: COPD type: emphysema Emphysema type: centrilobular Qualified Code(s): J43.2 - Centrilobular emphysema (8) Dyspnea on exertion: (9) Restless leg: (10) IBS (irritable bowel syndrome): Qualifiers: Irritable bowel syndrome type: with constipation Qualified Code(s): K58.1 - Irritable bowel syndrome with constipation (11) Hypertension: Qualifiers: Hypertension type: primary hypertension Qualified Code(s): I10 - Essential (primary) hypertension (12) Fibromyalgia: (13) H/O stroke without residual deficits: DS: Summary Hospital Course Hospital Course: 73-year-old female with past medical history of COPD, CVA with residual dysarthria, mild expressive aphasia and hemiparesis, diagnosed with small cell lung cancer recently and has not started on treatment yet was in her usual state of health when she took her nighttime medications at home and afterwards started to started to uncontrollably have shaking movement of her upper body. This was witnessed by her partner who informed me that patient was confused and did not respond to her. The event lasted about 15 minutes and had resolved by the time EMS arrived. Afterwards patient was confused/drowsy and had no recollection of the event. She was brought over to ER for further evaluation. Her work up in was unremarkable except for mild hypercapnia noted on ABG. She also had PCP in her urine but she denies using drugs. I know her as a patient when I was doing outpatient and I am inclined towards believing her based on my prior interactions with her. She has no hx of substance abuse in the past. She also had CT chest that revealed possible b/l basal infiltrates vs atelectasis and worsening/increased size of her lung mass. She had CTH that did not reveal any sig/acute finding. Patient had already become more awake and alert or was more or less at her baseline by the time I evaluated. Her mental status had improved before she was put on BIPAP. Repeat ABG showed chronic hypercapnia that was well compensated. She denies any resp complaints and denies cough, fever or SOB. Patient does not remember anything about what happened at home and her first memory of the event is that she was in ED. I spoke to her partner who told me that she had similar incident/event happened in December when she was in the car with him. She had shaking movement of her upper body with confusion that lasted a few minutes. She was taken to [facility] ED and discharged from ED and was told that low BP had caused her symptoms. Patient was started on Rocephin/azithromycin for CAP, although we have low suspicion for it. She was evaluated by Tele neuro who recommended starting patient on Vimpat as her presenting illness/event was concerning for Seizure. She had an MRI w/w/o contrast - no acute abnormality was noted. Next morning, patient was extremely confused, lethargic, and would barely wake up. Repeat ABG showed chronic hypercapnia that was well compensated. Repeat CTH did not reveal any sig finding. Patient was evaluated by tele neurology again and their recommendation was to transfer patient to tertiary care facility for continuous video EEG monitoring as her current mental status was suspected to be from subclinical seizures. Her Vimpat was increased to 150 mg q12. Patient was accepted for transfer. She is safe for transport and will be discharged to [facility]. During evening, patient had started to wake up more and was more alert but still lethargic and confused. Status at Discharge Overall status at discharge: patient is not back to baseline Time Spent with Patient Time attestation: Total time spent providing and/or coordinating discharge services: Time spent: greater than 30 minutes Exam Constitutional Vital Signs, click to edit/add: Last Vital Signs Temp 97.8 F 06/14/24 07:58 Pulse 74 06/14/24 18:00 Resp 14 06/14/24 14:00 BP 118/63 06/14/24 15:52 Pulse Ox 94 L 06/14/24 16:29 O2 Del Method Nasal Cannula 06/14/24 16:29 O2 Flow Rate 3 06/14/24 16:29 FiO2 3 06/14/24 04:10 Documenting provider has reviewed patient's vital signs: yes Common normals: no apparent distress General appearance: lethargic Orientation/consciousness: Yes confused Respiratory Common normals: normal respiratory effort and no use of accessory muscles Effort & inspection: able to speak in complete sentences Other: Coarse breath sounds Cardio Common normals: regular rate, S1 normal heart sound and S2 normal heart sound Rate: regular rate Heart sounds: S1 normal and S2 normal Extremity Common normals: no clubbing, cyanosis or edema Neuro Common normals: moves all extremities Sensorium/orientation: lethargic and somnolent Other: Mild left sided weakness, mild dysarthria and expressive aphasia from prior stroke Psych Common normals: denies hallucinations DS: Data Data Completed and Pending Labs on day of discharge: Labs from last 24 hours 06/14/24 06/14/24 10:56 04:47 WBC 11.7 H RBC 4.36 Hgb 12.0 Hct 39.7 MCV 91.1 MCH 27.5 MCHC 30.2 RDW 14.6 Plt Count 329 MPV 10.6 Neut % (Auto) 68.1 Lymph % (Auto) 22.0 [place] % (Auto) 8.3 Eos % (Auto) 0.9 Baso % (Auto) 0.4 Neut # (Auto) 7.9 H Lymph # (Auto) 2.6 [place] # (Auto) 1.0 H Eos # (Auto) 0.1 Baso # (Auto) 0.1 Abs Immat Gran (auto) 0.03 Imm/Tot Granulo (auto) 0.3 ABG pH 7.402 ABG pCO2 52.5 H* ABG pO2 70.0 L ABG HCO3 32.7 H ABG O2 Saturation 94.5 ABG Base Excess 7.9 H Lars Test Positive O2 Liters/Min 3 Sodium 143 Potassium 4.4 Chloride 103 Carbon Dioxide 33.7 H Anion Gap 10.7 BUN 10.0 Creatinine 1.01 Est GFR ( Amer) >60 Est GFR (Non-Af Amer) 54 L BUN/Creatinine Ratio 9.9 Glucose 117 H Calcium 8.9 Total Bilirubin 0.4 AST 10 L ALT 14 Alkaline Phosphatase 124 H Total Protein 6.6 Albumin 2.6 L Globulin 4.0 Albumin/Globulin Ratio 0.7 Discharge Plan Discharge Disposition: Xfer Acute Care Hospital Condition: Fair
[2024-06-14] MEDS: ATORVASTATIN CALCIUM 40 MG TABLET 80 MG PO (21:09)
--- NOTE | 2024-06-14 21:22 | PC.NURSE ---
2114 - RN to bedside for VS assessment. Pt updated on pending transfer. Pt displayed a manic episode of anxiety/aggression when told she was being picked up by [facility] and being transferred to [facility] for further testing. She begins to demand to speak with family. Son Mauricio called by phone number provided, . Pt displays rambling speech regarding I am being transferred , and I'm going to [place] . Pt also repeats that I don't know what is going on , and why are they transferring me ? Attempts to reorient patient, and discuss situation with patient and son are unsuccessful. Son hangs up with patient. Pt then demands to speak with Josh . Pathologist Assistant clarifies who Josh is, and finds phone number, . Pt again describes situation to Josh, and repeats same statements to him. Josh asks patient to speak with the RN. Pathologist Assistant discusses situation with significant other with patient's permission. Josh given permission to come up to patient's room until patient is transferred. Josh states that I will be there in 15 minutes .
[2024-06-14] MEDS: TRAZODONE HCL 50 MG TABLET 100 MG PO (21:44)
[2024-06-14] MEDS: ROPINIROLE HCL 1 MG TABLET 5 MG PO (21:44)
[2024-06-14] MEDS: LACOSAMIDE 50 MG TABLET 150 MG PO (21:44)
== END 2024-06-14 22:40 | disposition short-term general hospital (02) | DRG 189 ==
LOC: ER 08:59 → ICU 10:44
PROVIDERS: Student in an Organized Health Care Education/Training Program; Admitting Provider Internal Medicine; Emergency Provider Emergency Medicine; Visit Provider Internal Medicine
DX: J96.02 Acute respiratory failure with hypercapnia (principal); J18.9 Pneumonia, unspecified organism; G93.41 Metabolic encephalopathy; C34.12 Malignant neoplasm of upper lobe, left bronchus or lung; I69.354 Hemiplegia and hemiparesis following cerebral infarction affecting left non-dominant side; J96.01 Acute respiratory failure with hypoxia; R56.9 Unspecified convulsions; J43.2 Centrilobular emphysema; G25.81 Restless legs syndrome; K58.1 Irritable bowel syndrome with constipation; I10 Essential (primary) hypertension; M79.7 Fibromyalgia; I69.322 Dysarthria following cerebral infarction; Z87.891 Personal history of nicotine dependence; Z79.899 Other long term (current) drug therapy; Z79.82 Long term (current) use of aspirin; F31.9 Bipolar disorder, unspecified; E78.00 Pure hypercholesterolemia, unspecified; Z90.710 Acquired absence of both cervix and uterus; Z90.49 Acquired absence of other specified parts of digestive tract; Z98.51 Tubal ligation status; I69.320 Aphasia following cerebral infarction; R40.0 Somnolence; G93.89 Other specified disorders of brain
CPT/HCPCS: 36415; 36600; 51702; 70450; 70553; 71045; 71275; 80053; 80179; 80307; 80320; 80329; 81003; 82805; 83605; 84484; 85025; 93005; 94640; 94660; 94761; 95816; 97162; 99291; 99292; A9575; J0696; J1650; Q9967

== ENCOUNTER 2024-07-19 07:42 | Outpatient (RCR) | payer MEDICARE, SELFPAY | END 2024-07-20 09:22 | disposition home or self-care (01) | LOC: HEMC 07:42 | PROVIDERS: Visit Provider Internal Medicine Hematology & Oncology | DX: C34.12 Malignant neoplasm of upper lobe, left bronchus or lung (principal); R91.1 Solitary pulmonary nodule; D72.829 Elevated white blood cell count, unspecified; J44.9 Chronic obstructive pulmonary disease, unspecified; F17.210 Nicotine dependence, cigarettes, uncomplicated; Z80.1 Family history of malignant neoplasm of trachea, bronchus and lung; Z90.710 Acquired absence of both cervix and uterus; Z90.49 Acquired absence of other specified parts of digestive tract | CPT/HCPCS: G0463 ==

== ENCOUNTER 2024-10-04 07:44 | Outpatient (RCR) | payer MEDICARE, SELFPAY ==
[2024-10-04 13:55] LABS: Basophils Absolute Auto 0.1 10^3/uL (0.0-0.1); Basophils Percent Auto 0.7 % (0.2-2.0); Eosinophils Absolute Auto 0.1 10^3/uL (0.0-0.7); Eosinophils Percent Auto 1.4 % (0.9-7.0); Hematocrit 43.8 % (36.0-48.0); Hemoglobin 13.9 g/dL (12.0-16.0); Immature Granulocytes Abs Auto 0.03 10^3/uL (0.00-0.03); Immature Granulocytes Pct Auto 0.3 % (0.0-0.5); Lymphocytes Absolute Auto 1.9 10^3/uL (1.2-3.8); Lymphocytes Percent Auto 18.9 % (20.5-60.0); Mean Corpuscular HGB Conc 31.7 g/dL (29.9-35.2); Mean Corpuscular Hemoglobin 27.5 pg (26.7-34.0); Mean Corpuscular Volume 86.7 fL (81.0-99.0); Mean Platelet Volume 9.7 fL (9.5-13.5); Monocytes Absolute Auto 0.9 10^3/uL (0.3-0.8); Monocytes Percent Auto 9.2 % (1.7-12.0); Neutrophils Absolute Auto 6.8 10^3/uL (1.4-6.5); Neutrophils Percent Auto 69.5 % (43.0-75.0); Platelet Count 402 10^3/uL (150-450); Red Blood Count 5.05 10^6/uL (4.20-5.40); Red Cell Distribution Width 16.6 % (11.0-15.0); White Blood Count 9.8 10^3/uL (4.0-11.0)
[2024-10-04 14:04] LABS: Erythrocyte Sedimentation Rate 78 mm/hr (<=30)
[2024-10-04 14:28] LABS: Alanine Aminotransferase 16 U/L (14-59); Albumin Globulin Ratio 0.9; Albumin Level 3.5 g/dL (3.4-5.0); Alkaline Phosphatase 133 U/L (46-116); Anion Gap 12.5; Aspartate Amino Transferase 12 U/L (15-37); BUN Creatinine Ratio 14.7; Bilirubin Total 0.3 mg/dL (0.2-1.0); C Reactive Protein 1.02 mg/dL (<=0.50); Calcium 9.4 mg/dL (8.5-10.1); Carbon Dioxide 29.2 mmol/L (21.0-32.0); Chloride 103 mmol/L (98-107); Estimated GFR (African America >60 (>=60 mL/min/1.73m^2); Estimated GFR (Non-African Ame 53 (>=60 mL/min/1.73m^2); Globulin 3.9 g/dL; Glucose 97 mg/dL (74-106); Potassium 3.7 mmol/L (3.5-5.1); Sodium 141 mmol/L (136-145); Total Protein 7.4 g/dL (6.4-8.2)
[2024-10-04 14:35] LABS: Percent Iron Saturation 9.7 %
== END 2024-10-05 07:59 | disposition home or self-care (01) ==
LOC: HEMC 07:44
PROVIDERS: Visit Provider Internal Medicine Hematology & Oncology
DX: C34.12 Malignant neoplasm of upper lobe, left bronchus or lung (principal); R91.1 Solitary pulmonary nodule; D72.829 Elevated white blood cell count, unspecified; Z90.49 Acquired absence of other specified parts of digestive tract; Z98.51 Tubal ligation status; Z90.710 Acquired absence of both cervix and uterus; F17.210 Nicotine dependence, cigarettes, uncomplicated; J44.9 Chronic obstructive pulmonary disease, unspecified; Z80.1 Family history of malignant neoplasm of trachea, bronchus and lung; R56.9 Unspecified convulsions
CPT/HCPCS: 36415; 80053; 82728; 83540; 83550; 85025; 85652; 86140; G0463

== ENCOUNTER 2024-10-04 14:10 | Inpatient (IN) | payer MEDICARE, SELFPAY ==
[2024-10-04] VITALS (20 sets, daily range): BP systolic 145–185; BP diastolic 76–107; PULSE 76–107; TEMP 36.5–36.8; O2SAT 88–100; BMI 27.8
--- NOTE | 2024-10-04 14:12 | ECG_ITS ---
[facility] Test Date: 2024-10-04 Pat Name: BHUPENDRA MIRANDA Department: Room: - Gender: Female [employer]ist: : 1950 Requested By: [id number] Order Number: [id number] Reading MD: ANITRA SOARES M.D. Measurements Intervals [place] Rate: 90 P: 62 WY: 188 QRS: -26 QRSD: 84 T: 81 QT: 346 QTc: 394 Interpretive Statements 1100 Sinus rhythm 7202 Moderate left axis deviation 9110 Borderline ECG Compared to ECG 06/13/2024 01:30:24 Left-axis deviation now present Electronically Signed On 10-04-2024 17:44:31 EDT by ANITRA SOARES M.D.
--- NOTE | 2024-10-04 14:18 | ED_ITS ---
HPI - Neuro Symptoms/Deficit General Chief Complaint: Neuro Symptoms/Deficit Stated Complaint: POSSIBLE STROKE Time Seen by Provider: 10/04/24 14:11 Source: patient Mode of arrival: walk-in Limitations: no limitations History of Present Illness HPI Narrative: Patient is a 74-year-old female with a history of previous CVA, lung cancer who most recently received radiation 1 month ago in [place] sent to the emergency department by her oncologist in clinic. She presented for her regular follow-up today but was noted by the nurse to have worsening expressive aphasia and complaint of worsening weakness in the right upper extremity. She has a history of weakness to the right hand and forearm since a CVA 12 years ago. She was seen in [place] for that. She states she feels in the last several weeks that her right upper arm and shoulder have been more weak. She had a fall in the bathtub several weeks ago and she was not evaluated for this. She thinks she may have passed out. She reports continued right-sided rib pain since the fall. She is able to ambulate. She takes an aspirin daily with no other blood thinners. Patient's is at bedside. She is unable to definitively say when her speech changes and upper extremity weakness have worsened, the patient's is also unable to determine exactly when this may have happened. Nurse from the oncology office states that the patient's symptoms are new since her visit 1 month ago. Related Data Home Medications ?Medication ?Instructions ?Recorded ?Confirmed albuterol sulfate 90 mcg/actuation 2 inh inhalation Q4H PRN shortness 03/02/24 06/13/24 aerosol inhaler of breath or wheezing aspirin 81 mg tablet,delayed 81 mg PO DAILY 03/02/24 06/13/24 release (Adult Aspirin Regimen) atorvastatin 80 mg tablet 80 mg PO DAILY 03/02/24 06/13/24 budesonide 160 mcg-glycopyr 9 2 inh inhalation BID 03/02/24 06/13/24 mcg-formot 4.8 mcg/actuation HFA inhaler (Breztri Aerosphere) gabapentin 300 mg capsule 300 mg PO Q8H 03/02/24 06/13/24 linaclotide 145 mcg capsule 145 mcg PO DAILY PRN diarrhea 03/02/24 06/13/24 (Linzess) pantoprazole 40 mg tablet,delayed 40 mg PO DAILY 03/02/24 06/13/24 release trazodone 100 mg tablet 100 mg PO QPM 03/02/24 06/13/24 zolpidem 10 mg tablet 10 mg PO QPM 03/02/24 06/13/24 baclofen 10 mg tablet 10 mg PO Q8H 06/13/24 06/13/24 dicyclomine 20 mg tablet 20 mg PO QID 06/13/24 06/13/24 fenofibrate nanocrystallized 48 mg 48 mg PO DAILY 06/13/24 06/13/24 tablet ferrous sulfate 325 mg (65 mg 325 mg PO DAILY 06/13/24 06/13/24 iron) tablet,delayed release folic acid 1 mg tablet 1 mg PO DAILY 06/13/24 06/13/24 isosorbide mononitrate 30 mg 30 mg PO DAILY 06/13/24 06/13/24 tablet,extended release 24 hr ropinirole 5 mg tablet 5 mg PO BEDTIME 06/13/24 06/13/24 Allergies Allergy/AdvReac Type Severity Reaction Status Date / Time No Known Drug Allergies Allergy Verified 10/04/24 14:18 Review of Systems ROS Constitutional Denies: fever or chills Ears, nose, mouth, and throat Denies: throat pain or nasal congestion Cardiovascular Reports: chest pain Respiratory Denies: shortness of breath Gastrointestinal Denies: abdominal pain, nausea, vomiting or diarrhea Musculoskeletal Denies: back pain or neck pain Integumentary/Breast Denies: rash Neurological Reports: numbness in extremities, weakness in extremities and dizziness; Denies: headache Hematologic/Lymphatic Denies: easy bruising or easy bleeding [facility] Medical History (Updated 10/04/24 @ 16:33 by TIAGO Olmstead) H/O stroke without residual deficits ?Z86.73 - Personal history of transient ischemic attack (TIA), and cerebral infarction without residual deficits (ICD-10) COPD (chronic obstructive pulmonary disease) ?J44.9 - Chronic obstructive pulmonary disease, unspecified (ICD-10) Small cell lung cancer ?C34.90 - Malignant neoplasm of unspecified part of unspecified bronchus or lung (ICD-10) Neck pain ?M54.2 - Cervicalgia (ICD-10) Fibromyalgia ?M79.7 - Fibromyalgia (ICD-10) Back pain ?M54.9 - Dorsalgia, unspecified (ICD-10) Anemia ?D64.9 - Anemia, unspecified (ICD-10) Mass of right parotid gland ?K11.8 - Other diseases of salivary glands (ICD-10) AAA (abdominal aortic aneurysm) ?I71.40 - Abdominal aortic aneurysm, without rupture, unspecified (ICD-10) Bipolar disorder ?F31.9 - Bipolar disorder, unspecified (ICD-10) Dyspnea on exertion ?R06.09 - Other forms of dyspnea (ICD-10) Pulmonary nodule ?R91.1 - Solitary pulmonary nodule (ICD-10) Emphysema lung ?J43.9 - Emphysema, unspecified (ICD-10) Restless leg ?G25.81 - Restless legs syndrome (ICD-10) GERD (gastroesophageal reflux disease) ?K21.9 - Gastro-esophageal reflux disease without esophagitis (ICD-10) Constipation ?K59.00 - Constipation, unspecified (ICD-10) Diarrhea ?R19.7 - Diarrhea, unspecified (ICD-10) IBS (irritable bowel syndrome) ?K58.9 - Irritable bowel syndrome without diarrhea (ICD-10) High cholesterol ?E78.00 - Pure hypercholesterolemia, unspecified (ICD-10) Hypertension ?I10 - Essential (primary) hypertension (ICD-10) Mass of left lung (2023) ?R91.8 - Other nonspecific abnormal finding of lung field (ICD-10) Right arm weakness ?R29.898 - Other symptoms and signs involving the musculoskeletal system (ICD-10) CVA (cerebral vascular accident) (2013) ?I63.9 - Cerebral infarction, unspecified (ICD-10) Surgical History History of colonoscopy ?Z98.890 - Other specified postprocedural states (ICD-10) History of hysterectomy ?Z90.710 - Acquired absence of both cervix and uterus (ICD-10) History of cholecystectomy ?Z90.49 - Acquired absence of other specified parts of digestive tract (ICD- 10) History of repair of rotator cuff ?Z98.890 - Other specified postprocedural states (ICD-10) History of arthroscopy of shoulder ?Z98.890 - Other specified postprocedural states (ICD-10) History of tubal ligation ?Z98.51 - Tubal ligation status (ICD-10) Family History Other Family history of DVT Family history of lung cancer Family history of stroke Social History Within the past year, how often did you have a drink containing alcohol: monthly or less Smoking status: Former smoker Second hand tobacco smoke exposure: No Non-prescribed substance use: denies use 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 Highest level of school completed/degree received: 10th grade Little interest or pleasure in doing things: not at all Feeling down, depressed, or hopeless: not at all Exam Narrative Exam Narrative: Gen.: Awake, alert, in no distress Head: Normocephalic, atraumatic ENT: Moist mucous membranes Respiratory: No respiratory distress, lungs clear bilaterally Cardio: Regular rate and rhythm Gastrointestinal: Abdomen is soft, nondistended and nontender to palpation Extremities: Patient is unable to AB duct the right arm at the shoulder, she is able to externally rotate the forearm at the elbow with some movement of the hand although 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 Psych: Normal mood and affect Neuro: Mild expressive aphasia noted although the patient is able to follow commands and answer questions. NIH stroke scale of 4 for weakness of the right upper arm, expressive aphasia Skin: Warm, dry, intact Constitutional Vital Signs, click to edit/add: Last Vital Signs Temp 98 F 10/04/24 14:14 Pulse 76 10/04/24 16:10 Resp 14 10/04/24 16:10 BP 146/78 H 10/04/24 16:01 Pulse Ox 97 10/04/24 16:10 O2 Del Method Room Air 10/04/24 14:14 Course Vital Signs Vital signs: Vital Signs Temperature 98 F 10/04/24 14:14 Pulse Rate 107 H 10/04/24 14:14 Respiratory Rate 16 10/04/24 14:14 Blood Pressure 157/103 H 10/04/24 14:14 Pulse Oximetry 100 10/04/24 14:14 Oxygen Delivery Method Room Air 10/04/24 14:14 Temperature 98 F 10/04/24 14:14 Pulse Rate 76 10/04/24 16:10 Respiratory Rate 14 10/04/24 16:10 Blood Pressure 146/78 H 10/04/24 16:01 Pulse Oximetry 97 10/04/24 16:10 Oxygen Delivery Method Room Air 10/04/24 14:14 MDM - Neuro Symptoms/Deficit MDM Narrative Medical decision making narrative: Patient was immediately sent for noncontrast CT of the brain with stroke protocol on arrival to the ER. This shows old chronic changes and old stroke with no evidence of acute process or metastasis. Labs obtained, CT angio of the head and neck show the patient has vessel stenosis with no acute occlusion. CT of the chest was performed due to fall several weeks ago with no evidence of acute lung or rib abnormalities. She is resting comfortably on reevaluation with stable vital signs. I discussed the case with [place] stroke interventionalists, Dr. Short who is in agreement with keeping the patient at this facility for MRI. She likely has had another stroke in the last several weeks. She is agreeable to staying for observation and is hemodynamically stable at time of admission. SUPERVISED APC VISIT, PHYSICIAN ATTESTATION: Based on the medical record the care appears appropriate. ? Medical Records Attestation: I reviewed the patient's medical records. Lab Data Attestation: I reviewed the patient's lab results. Labs: Lab Results 10/04/24 Range/Units 14:35 WBC 9.3 (4.0-11.0) 10^3/uL RBC 4.77 (4.20-5.40) 10^6/uL Hgb 13.4 (12.0-16.0) g/dL Hct 41.6 (36.0-48.0) % MCV 87.2 (81.0-99.0) fL MCH 28.1 (26.7-34.0) pg MCHC 32.2 (29.9-35.2) g/dL RDW 16.6 H (11.0-15.0) % Plt Count 374 (150-450) 10^3/uL MPV 9.5 (9.5-13.5) fL Neut % (Auto) 68.7 (43.0-75.0) % Lymph % (Auto) 20.0 L (20.5-60.0) % Sawyer % (Auto) 8.9 (1.7-12.0) % Eos % (Auto) 1.4 (0.9-7.0) % Baso % (Auto) 0.8 (0.2-2.0) % Neut # (Auto) 6.4 (1.4-6.5) 10^3/uL Lymph # (Auto) 1.9 (1.2-3.8) 10^3/uL Sawyer # (Auto) 0.8 (0.3-0.8) 10^3/uL Eos # (Auto) 0.1 (0.0-0.7) 10^3/uL Baso # (Auto) 0.1 (0.0-0.1) 10^3/uL Abs Immat Gran (auto) 0.02 (0.00-0.03) 10^3/uL Imm/Tot Granulo (auto) 0.2 (0.0-0.5) % PT 10.9 (9.0-11.6) sec INR 1.03 Sodium 139 (136-145) mmol/L Potassium 3.3 L (3.5-5.1) mmol/L Chloride 103 (98-107) mmol/L Carbon Dioxide 27.9 (21.0-32.0) mmol/L Anion Gap 11.4 BUN 14.0 (7.0-18.0) mg/dL Creatinine 1.02 (0.55-1.02) mg/dL Est GFR ( Amer) >60 (>=60 mL/min/1.73m^2) Est GFR (Non-Af Amer) 53 L (>=60 mL/min/1.73m^2) BUN/Creatinine Ratio 13.7 Glucose 97 (74-106) mg/dL Lactate 1.0 (0.4-2.0) mmol/L Calcium 9.0 (8.5-10.1) mg/dL Total Bilirubin 0.3 (0.2-1.0) mg/dL AST 11 L (15-37) U/L ALT 18 (14-59) U/L Alkaline Phosphatase 119 H (46-116) U/L Troponin I High Sens 6.8 (4.0-51.3) pg/mL Total Protein 6.9 (6.4-8.2) g/dL Albumin 3.2 L (3.4-5.0) g/dL Globulin 3.7 g/dL Albumin/Globulin Ratio 0.9 TSH 1.824 (0.358-3.740) uIU/mL ECG Data Attestation: I personally reviewed and interpreted this ECG as follows: (Normal sinus rhythm at a rate of 90, no acute ST elevation or ectopy. EKG reviewed by attending physician) Discharge Plan Discharge Chief Complaint: Neuro Symptoms/Deficit Patient Disposition: Admitted as Observation Time of Disposition Decision: 16:33 Prescriptions / Home Meds: No Action albuterol sulfate 90 mcg/actuation HFA aerosol inhaler 2 inh INHALATION Q4H PRN (Reason: shortness of breath or wheezing) aspirin [Adult Aspirin Regimen] 81 mg tablet,delayed release (DR/EC) 81 mg PO DAILY atorvastatin 80 mg tablet 80 mg PO DAILY Breztri Aerosphere 160-9-4.8 mcg/actuation HFA aerosol inhaler 2 inh inhalation BID gabapentin 300 mg capsule 300 mg PO Q8H pantoprazole 40 mg tablet,delayed release (DR/EC) 40 mg PO DAILY trazodone 100 mg tablet 100 mg PO QPM Linzess 145 mcg capsule 145 mcg PO DAILY PRN (Reason: diarrhea) zolpidem 10 mg tablet 10 mg PO QPM dicyclomine 20 mg tablet 20 mg PO QID fenofibrate nanocrystallized 48 mg tablet 48 mg PO DAILY isosorbide mononitrate 30 mg tablet extended release 24 hr 30 mg PO DAILY ropinirole 5 mg tablet 5 mg PO BEDTIME baclofen 10 mg tablet 10 mg PO Q8H ferrous sulfate 325 mg (65 mg iron) tablet,delayed release (DR/EC) 325 mg PO DAILY folic acid 1 mg tablet 1 mg PO DAILY Print Language: Khmer Referrals: CHRIS BERMAN [Primary Care Provider] - 1 week
[2024-10-04 14:41] LABS: Basophils Absolute Auto 0.1 10^3/uL (0.0-0.1); Basophils Percent Auto 0.8 % (0.2-2.0); Eosinophils Absolute Auto 0.1 10^3/uL (0.0-0.7); Eosinophils Percent Auto 1.4 % (0.9-7.0); Hematocrit 41.6 % (36.0-48.0); Hemoglobin 13.4 g/dL (12.0-16.0); Immature Granulocytes Abs Auto 0.02 10^3/uL (0.00-0.03); Immature Granulocytes Pct Auto 0.2 % (0.0-0.5); Lymphocytes Absolute Auto 1.9 10^3/uL (1.2-3.8); Mean Corpuscular HGB Conc 32.2 g/dL (29.9-35.2); Mean Corpuscular Hemoglobin 28.1 pg (26.7-34.0); Mean Corpuscular Volume 87.2 fL (81.0-99.0); Mean Platelet Volume 9.5 fL (9.5-13.5); Monocytes Absolute Auto 0.8 10^3/uL (0.3-0.8); Monocytes Percent Auto 8.9 % (1.7-12.0); Neutrophils Absolute Auto 6.4 10^3/uL (1.4-6.5); Neutrophils Percent Auto 68.7 % (43.0-75.0); Platelet Count 374 10^3/uL (150-450); Red Blood Count 4.77 10^6/uL (4.20-5.40); Red Cell Distribution Width 16.6 % (11.0-15.0); White Blood Count 9.3 10^3/uL (4.0-11.0)
[2024-10-04 14:55] LABS: INR 1.03; Prothrombin Time 10.9 sec (9.0-11.6)
[2024-10-04 15:03] LABS: Alanine Aminotransferase 18 U/L (14-59); Albumin Globulin Ratio 0.9; Albumin Level 3.2 g/dL (3.4-5.0); Alkaline Phosphatase 119 U/L (46-116); Anion Gap 11.4; Aspartate Amino Transferase 11 U/L (15-37); BUN Creatinine Ratio 13.7; Bilirubin Total 0.3 mg/dL (0.2-1.0); Carbon Dioxide 27.9 mmol/L (21.0-32.0); Chloride 103 mmol/L (98-107); Estimated GFR (African America >60 (>=60 mL/min/1.73m^2); Estimated GFR (Non-African Ame 53 (>=60 mL/min/1.73m^2); Globulin 3.7 g/dL; Glucose 97 mg/dL (74-106); Potassium 3.3 mmol/L (3.5-5.1); Sodium 139 mmol/L (136-145); Total Protein 6.9 g/dL (6.4-8.2)
[2024-10-04 15:09] LABS: Thyroid Stimulating Hormone 1.824 uIU/mL (0.358-3.740); Troponin I High Sensitivity 6.8 pg/mL (4.0-51.3)
--- NOTE | 2024-10-04 17:05 | PC.NURSE ---
swallow eval done at bedside, pt was able to swallow 30ml x 3 of water without difficulty
[2024-10-04 17:06] LABS: Bilirubin Urine NEGATIVE (NEGATIVE); Blood Urine NEGATIVE (NEGATIVE); Clarity Urine CLEAR (CLEAR); Color Urine LT. YELLOW (YELLOW); Glucose Urine UA NEGATIVE (NEGATIVE); Ketones Urine NEGATIVE (NEGATIVE); Leukocyte Esterase Urine SMALL (NEGATIVE); Nitrite Urine NEGATIVE (NEGATIVE); Protein Urine NEGATIVE (NEG/TRACE); Specific Gravity Urine <=1.005 (1.005-1.025); Urobilinogen Urine 0.2 EU/dL (0.2-1.0); pH Urine 6.5 (5.0-9.0)
[2024-10-04 17:20] LABS: Bacteria Urine SMALL #/HPF (NONE SEEN); Cast Seen? NONE SEEN #/LPF (NONE SEEN); Crystals Seen? None Seen #/HPF (None Seen); Mucus Urine NONE SEEN (NONE SEEN); RBC Urine 0-2 #/HPF (0-2); Squamous Epithelial Cell Urine FEW #/LPF (NONE/RARE); Urine Culture Indicated YES-FRMC
--- OUTSIDE RECORDS SUMMARY | 2024-10-04 17:40 | XMS_ITS | CCD ---
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 Name Role Phone FAWWAD, HURTADO H Admitting [...] Physician Cherelle Bautista Unavailable Nigel Valladares Unavailable [phone] Aung FARFAN, Hurtado Primary Care Provider Shaikh Horan MD Unavailable MD [facility] Primary Care Provider [phone] MD Bernardino Bhakta Emergency Provider VONDA Bautista Attending Provider SHAIKH HORAN Referring Unavailable Arden De Leon Attending Unavailable DO Leigh Thompson Attending Provider MD Mikhail Moon Attending Provider MD [facility] Primary Care Provider [phone] Charanjit Chen MD Primary Care Provider Samantha STRUCTURAL RIGGER, Chris Unavailable Naeem MANAGER INPATIENT, Anne Unavailable Unavailable Naeem MANAGER INPATIENT, Anne Unavailable Unavailable Henok Hendrix MA Unavailable Unavailable Roseboom MANAGER INPATIENT, Ardana Unavailable Unavailable Roseboom MANAGER INPATIENT, Ardana Unavailable Unavailable Samantha VEHICLE WASHER-BEHAVIORISTChris Primary Care Pr ovider OMBALLI, MOHAMED Referring Unavailable OMBALLI, MOHAMED Referring Unavailable NURIA, ERYN Referring Unavailable NAWRAS, ALI Attending Unavailable NAWRAS, ALI Admitting Unavailable OMBALLI, MOHAMED Attending Unavailable OMBALLI, MOHAMED Attending Unavailable OMBALLI, MOHAMED Referring Unavailable OMBALLI, MOHAMED Referring Unavailable Reynaldo Horan MDikh Primary Care Provider Nitza Russell MD Attending Provider Mikhail Moon MD Referring Provider [phone] Samantha STRUCTURAL RIGGER, Chris Unavailable CHRIS SINGH Attending UnavailROMEL Vidal Attending Unavailable NURIA, ERYN Referring Unavailable KIANNA ROMAN Attending Unavailable FARENNY, Attending Unavailable AUNG, HURTADO Attending Unavailable AUNG, Attending Unavailable CHRIS SINGH Attending Unavaileduardo SINGH, CHRIS Attending UnavailJAVIER Arreola Attending Unavailable ASAAD, IMAD Referring Unavailable CHRIS SINGH Attending UnavailJAVIER Arreola Attending Unavailable Asaad, Imad Attending Unavailable [facility] Primary Care Unavailable Asaad, Imad Admitting Unavailable Asaad, Imad Referring Unavailable Lianet, Maríaleena R Admitting Unavailable Judit Martini R Attending Unavailable Chris Singh Primary Care Unavaila ble Asaad, Imad Admitting Unavailable Asaad, Imad Attending Unavailable [facility] Primary Care Unavailable Bernardino Bhakta Admitting Unavailable Bernardino Bhakta Attending Unavailable [facility] Care Unavailable Samsa, Leigh P Admitting Unavailable Samsa, Leigh P Attending Unavailable [facility] Primary Care Unavailable Samsa, Leigh P Admitting Unavailable Samsa, Leigh P Attending Unavailable [facility] Unavailable Cherelle Bautista Attending Unavailable [facility] Unavailable Cherelle Bautista Admitting Unavailable Allergies Allergy Classification Reported Allergen(s) Allergy Type Date of Onset Reaction(s) Facility (1 source) No Known Medication Allergies; 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: [No Known Medication Allergies] Propensity to adverse reactions (disorder) [facility] [place] Repository (1 source) ALLERGIES NOT ON FILE; 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: [ALLERGIES NOT ON FILE] Propensity to adverse reactions (disorder) [facility] Repository Medications Current Medications Medication Drug Class(es) Dates Sig (Normalized) Sig (Original) 30 ACTUAT fluticasone furoate 0.2 MG/ACTUAT / umeclidinium 0.0625 MG/ACTUAT / vilanterol 0.025 MG/ACTUAT Dry Powder Inhaler [Trelegy] (2 sources) Trelegy Ellipta 200-62.5-25 MCG/ACT Inhalation for 30 Days Active [id number] 200 actuat albuterol 0.09 mg/actuat metered dose inhaler (20 sources) beta2-Adrenergic Agonist Start: 12-30-2023 Albuterol Sulfate 90 mcg/actuation HFA aerosol inhaler Active 1 PUFF INHALATION As Directed December 29, 2023 11:00pm Start: 12-30-2023 Albuterol Sulf ate Active INHALATION December 30, 2023 12:00am Start: 11-26-2023 take 2 puff(s) by in halation every four hours for wheezing albuterol HFA 90 mcg/act inhaler Indications: Moderate COPD (chronic obstructive pulmonary disease) (CMS/HCC) Inhale 2 puffs every 4 (four) hours if needed for wheezing or shortness of breath 6.7 g 11/26/2023 Active Start: 07-02-2023 take 2 puff(s) by in halation every four hours albuterol HFA 90 mcg/act inhaler Inhale 2 puffs every 4 (four) hours if needed for shortness of breath 0 07/02/2023 Active aspirin 81 mg delayed release oral tablet (11 sources) Platelet Aggregation Inhibitor, Nonsteroidal Anti-inflammatory Drug Start: 12-27-2023 take 1 tablet by mouth once daily Aspirin 81 mg tablet,delayed release (DR/EC) Active 81 MG PO Daily December 26, 2023 11:00pm Baby Aspirin Act thelma atorvastatin 80 mg oral tablet (20 sources) HMG-CoA Reductase Inhibitor Start: 06-09-2022 End: 06-05-2024 take 1 tablet by mouth once daily atorvastatin (Lipitor) 80 MG tablet Indications: Hyperlipidemia, unspecified hyperlipidemia type ([facility]) Take 1 tablet (80 mg) by mouth Daily 90 tablet 03/07/2024 Active 120 actuat budesonide 0.16 mg/actuat / formoterol fumarate 0.0048 mg/actuat / glycopyrrolate 0.009 mg/actuat metered dose inhaler (20 sources) Corticosteroid, beta2-Adrenergi c Agonist Start: 03-11-2024 Puaydnptjh-Lcqtxfrv-S ormoterol (Breztri Aerosphere) 160-9-4.8 mcg/actuation HFA aerosol inhaler Active 2 INH INHALATION every day in the morning and in the evening March 10, 2024 11:00pm Start: 03-02-2024 End: 06-27-2024 take 2 puff(s) by inhalation in the morning Shlwufo-Vxxuaymbxiq-Uyllfmbvmy (Breztri Aerosphere) 160-9-4.8 MCG/ACT aerosol Indications: Moderate COPD (chronic obstructive pulmonary disease) (CMS/HCC) Inhale 2 puffs in the morning and 2 puffs before bedtime. 10.7 g 2 06/27/2024 Active esomeprazole 40 mg delayed release oral capsule (8 sources) Proton Pump Inhibitor Start: 12-24-2022 End: 03-24-2023 take 1 capsule by mouth once daily esomeprazole 40 mg Cap-EC 40 mg = 1 cap(s), Oral, Daily, # 90 cap(s), Refills(s) 0, Pharmacy: [facility], 159, cm, 12/24/22 10:00:00 EDT, Height/Length Dosing, 67.6, kg, 12/24/22 10:00:00 EDT, Weight Dosing Start Date: 02/18/23 Status: Ordered ezetimibe 10 mg oral tablet (20 sources) Dietary Cholesterol Absorption Inhibitor Start: 07-09-2023 End: 07-28-2024 take 1 tablet by mouth in the morning ezetimibe (Zetia) 10 MG tablet Indications: Hyperlipidemia, unspecified hyperlipidemia type (CMS/HCC) Take 1 tablet (10 mg) by mouth in the morning. 30 tablet 2 07/09/2023 Active fenofibrate 48 mg oral tablet (18 sources) Peroxisome Proliferator Receptor alpha Agonist Start: 03-07-2024 End: 03-07-2025 take 1 tablet by mouth once daily fenofibrate (Tricor) 48 MG tablet Indications: Mixed hyperlipidemia (CMS/HCC) Take 1 tablet (48 mg) by mouth Daily 30 tablet 11 03/07/2024 08/02/2024 Discontinued ferrous sulfate 325 mg oral tablet (5 sources) Start: 2024 take 1 tablet by mouth once daily Ferrous Sulfate 325 mg (65 mg iron) tablet Active 325 MG PO Daily 2024 12:00am Start: 01-06-2023 End: 05-19-2023 take 1 tablet by mouth once daily ferrous sulfate 325 mg oral enteric coated tablet 325 mg = 1 tab(s), Oral, Daily, X 90 day(s), # 90 tab(s), Refills(s) 0, Pharmacy: [facility], 159, cm, 12/24/22 10:00:00 EDT, Height/Length Dosing, 67.6, kg, 12/24/22 10:00:00 EDT, Weight Dosing Start Date: 02/18/23 Stop Date: 05/19/23 Status: Ordered Fluticasone Furoate-Vilanterol (1 source) Corticosteroid, beta2-Adrenergic Agonist Start: 2024 Fluticasone Furoate-Vilanterol 200-25 mcg/dose blister with device Active 1 INH INHALATION Daily 2024 12:00am Fluticasone-Umeclidin -Vilant (Trelegy Ellipta) 200-62.5-25 MCG/ACT aerosol powder (1 source) Start: 08-20-2023 End: 11-18-2023 take 1 puff(s) by inhalation in the morning Fluticasone-Umeclidi n-Vilant (Trelegy Ellipta) 200-62.5-25 MCG/ACT aerosol powder Indications: Moderate COPD (chronic obstructive pulmonary disease) ([facility]) Inhale 1 puff in the morning. 28 each 2 08/20/2023 11/18/2023 Active gabapentin 300 mg oral capsule (20 sources) Anti-epileptic Agent Start: 06-09-2022 End: 10-31-2024 take 1 capsule by mouth in the morning, then take 1 capsule by mouth in the evening, then take 1 capsule by mouth at bedtime gabapentin (Neurontin) 300 MG capsule Indications: Other polyneuropathy Take 1 capsule (300 mg) by mouth in the morning and 1 capsule (300 mg) in the evening and 1 capsule (300 mg) before bedtime. 270 capsule 08/02/2024 10/31/2024 Active lacosamide 100 mg oral tablet (14 sources) Anti-epileptic Agent Start: 09-26-2024 End: 10-26-2024 take 1 tablet by mouth in the morning lacosamide (Vimpat) 100 MG tablet Indications: Alteration of awareness Take 1 tablet (100 mg) by mouth in the morning and 1 tablet (100 mg) before bedtime. 60 tablet 1 09/26/2024 10/26/2024 Active Start: 06-17-2024 End: 09-26-2024 take 1 tablet by mouth in the morning lacosamide (Vimpat) 150 mg tablet tablet Take 150 mg by mouth in the morning and 150 mg in the evening. 06/17/2024 09/26/2024 Discontinued (Reorder) lamoTRIgine 150 mg oral tablet (20 sources) Mood Stabilizer, Anti-epileptic Agent Start: 09-26-2024 End: 10-26-2024 take 1 tablet by mouth in the morning lamoTRIgine (LaMICtal) 150 MG tablet Indications: Alteration of awareness Take 1 tablet (150 mg) by mouth in the morning. 30 tablet 2 09/26/2024 10/26/2024 Active Start: 07-28-2024 End: 09-26-2024 lamoTRIgine (LaMICtal) 100 M G tablet Take 100 mg by mouth in the morning. Do not start before July 28, 2024. 07/28/2024 09/26/2024 Discontinued (Reorder) Start: 07-28-2024 take 1 tablet by edelmira th in the morning lamoTRIgine (LaMICtal) 100 mg tablet Take 1 tablet (100 mg total) by mouth in the morning. Script 2., start taking only after finishing script 1.. 60 tablet 3 07/28/2024 Active Start: 07-28-2024 take 1 tablet by edelmira th in the morning lamoTRIgine (LaMICtal) 100 mg tablet Take 1 tablet (100 mg total) by mouth in the morning. Script 2., start taking only after finishing script 1.. 60 tablet 3 07/28/2024 Active Start: 07-28-2024 lamoTRIgine (L aMICtal) 100 MG tablet Take 100 mg by mouth in the morning. Do not start before July 28, 2024. 07/28/2024 Active Start: 06-17-2024 End: 08-02-2024 lamoTRIgine (LaMICtal) 25 MG tablet Take by mouth 06/17/2024 08/02/2024 Discontinued linaclotide 0.145 mg oral capsule (20 sources) Guanylate Cyclase-C Agonist Start: 11-26-2023 End: 08-02-2024 take 1 capsule by mouth before mealtime linaCLOtide (Linzess) 145 MCG capsule Indications: Irritable bowel syndrome with predominant constipation Take 1 capsule (145 mcg) by mouth in the morning. Take before meals. 90 capsule 11/26/2023 08/02/2024 Discontinued losartan potassium 25 mg oral tablet (12 sources) Angiotensin 2 Receptor Tristian Start: 06-18-2024 take 1 tablet by mouth in the morning losartan (Cozaar) 25 MG tablet Take 25 mg by mouth in the morning. 06/18/2024 Active nicotine 4 mg oral lozenge (2 [...] chew, or split.. 90 tablet 1 05/02/2024 08/02/2024 Discontinued Start: 08-04-2023 take 1 tablet by edelmira th once daily pantoprazole (ProtoNix) 40 MG EC tablet Indications: Gastroesophageal reflux disease without esophagitis TAKE 1 TABLET BY MOUTH EVERY DAY 30 tablet 0 08/04/2023 Active take 1 tablet by edelmira th once daily Pantoprazole Sodium 40 MG TAKE 1 TABLET BY MOUTH DAILY Oral for 30 Days Active polyethylene glycol 3350 70667 mg powder for oral solution (8 sources) Osmotic Laxative Start: 2024 Polyethylene Glycol 3350 (Miralax) 17 gram/dose powder Active 17 GM PO Daily 2024 12:00am Start: 12-24-2022 MiraLax Refill (s) 0 Start Date: 12/24/22 Status: Ordered rOPINIRole 0.5 mg oral tablet (20 sources) Nonergot Dopamine Agonist Start: 08-20-2023 End: 09-26-2024 take 1 tablet by mouth at bedtime rOPINIRole (Requip) 0.5 MG tablet Indications: Restless Leg Syndrome Take 1 tablet (0.5 mg) by mouth at bedtime 90 tablet 08/20/2023 09/26/2024 Discontinued traZODone hydrochloride 100 mg oral tablet (20 sources) Serotonin Reuptake Inhibitor Start: 06-09-2022 End: 01-29-2025 take 1 tablet by mouth at bedtime traZODone (Desyrel) 100 MG tablet Indications: Psychophysiological insomnia Take 1 tablet (100 mg) by mouth at bedtime 90 tablet 1 08/02/2024 01/29/2025 Active zolpidem tartrate 10 mg oral tablet (20 sources) gamma-Aminobuty paulette Acid-ergic Agonist Start: 12-14-2023 End: 08-02-2024 zolpidem (Ambien) 10 MG tablet Indications: Psychophysiological insomnia Take 1 tablet (10 mg) by mouth as needed at bedtime for sleep 90 tablet 12/14/2023 08/02/2024 Discontinued Completed/Discontinued Medications Medication Drug Class(es) Dates Sig [...] Status: Ordered amLODIPine 10 mg oral tablet (11 sources) Dihydropyridine Calcium Channel Tristian Start: 12-27-2023 End: 12-30-2023 take 1 tablet by mouth once daily in the morning Amlodipine 10 mg tablet Discontinued 10 MG PO Every morning December 26, 2023 11:00pm December 30, 2023 8:41am Start: 08-04-2023 End: 11-02-2023 take 1 tablet [...] procedure, # 2 tab(s), Refills(s) 0, Pharmacy: [facility], 159, cm, 08/11/22 13:12:00 EST, Height/Length Dosing, 64, kg, 08/11/22 13:12:00 EST, Weight Dosing Start Date: 08/14/22 Status: Ordered dicyclomine hydrochloride 20 mg oral tablet (20 sources) Anticholinergic Start: 11-26-2023 End: 07-28-2024 take 1 tablet by mouth three times daily Dicyclomine 20 mg tablet Discontinued 20 MG PO Three times daily December 26, 2023 11:00pm July 28, 2024 2:22pm FreeTextSig: TAKE 1 TABLET BY MOUTH THREE TIMES DAILY Oral; Note: Source Status: Taking; Refills: 0; Qty: 90 Each; Provider: Aung Hurtado take 1 tablet by edelmira three times daily Dicyclomine HCl 20 MG TAKE 1 TABLET BY [facility] THREE TIMES DAILY Oral for 30 Days Active Vbhnhvrnwjd-Tpcwftvck-Abzqnl er (9 sources) Anticholinergic, Corticosteroid, beta2-Adrenergic Agonist Start: 12-30-2023 End: 03-11-2024 Hjbfchbborp-Miondkpxu-Pqcvci er (Trelegy Ellipta) 100-62.5-25 mcg blister with device Discontinued INHALATION December 29, 2023 11:00pm March 11, 2024 7:20am Start: 12-30-2023 End: 03-11-2024 Apdwidtgpbf-Mhfzhbild-Ykzpwi er (Trelegy Ellipta) 100-62.5-25 mcg blister with device Discontinued INHALATION December 30, 2023 12:00am March 11, 2024 8:20am Start: 12-30-2023 Fluticasone-Um eclidin-Vilanter (Trelegy Ellipta) 100-62.5-25 mcg blister with device Active INHALATION December 30, 2023 12:00am Dqtwhfsfioc-Ptnxfedvk-Jvzhzp er (10 sources) Start: 12-27-2023 End: 03-11-2024 Ujosytspmuo-Jrygpjmrx-Qjfdve er (Trelegy Ellipta) 200-62.5-25 mcg blister with device Discontinued 1 INH INHALATION Daily December 26, 2023 11:00pm March 11, 2024 7:20am FreeTextSig: Inhalation; Note: Source Status: Taking; Qty: 60 Each; Provider: Jacquelyn Manning ( ) Start: 12-27-2023 End: 03-11-2024 Xljxqlzbetc-Kgjhijelt-Mpptgq er (Trelegy Ellipta) 200-62.5-25 mcg blister with [...] ) folic acid 1 mg oral tablet (20 sources) Start: 02-18-2023 End: 07-28-2024 take 1 tablet by mouth once daily Folic Acid 1 mg tablet Discontinued 1 MG PO Daily December 26, 2023 11:00pm July 28, 2024 2:23pm FreeTextSig: TAKE 1 TABLET BY MOUTH DAILY Oral; Note: Source Status: Taking; Refills: 0; Qty: 30 Each; Provider: Lianet Machuca Start: 01-06-2023 End: 02-05-2023 take 1 tablet by mouth once daily folic acid 1 mg Tab 1 mg = 1 tab(s), Oral, Daily, X 30 day(s), # 30 tab(s), Refills(s) 0, Pharmacy: [facility], 159, cm, 12/24/22 10:00:00 EDT, Height/Length Dosing, 67.6, kg, 12/24/22 10:00:00 EDT, Weight Dosing Start Date: 01/06/23 Stop Date: 02/05/23 Status: Ordered polyethylene glycol 3350 [id number] mg / potassium chloride 1480 mg / sodium bicarbonate 5720 mg / sodium chloride 80252 mg powder for oral solution (7 sources) Osmotic Laxative Start: 12-24-2022 NuLYTELY Fuentes oral powder for reconstitution See Instructions, 1 EA, Refill(s) 0, Prior to colonoscopy., [facility], 159, cm, 12/24/22 10:00:00 EDT, Height/Length Dosing, 67.6, kg, 12/24/22 10:00:00 EDT, Weight Dosing Start Date: 12/24/22 Status: Ordered Sod Picosulf-Mag Ox-Citric Ac (7 sources) Start: 03-01-2024 End: 03-11-2024 take 1 dose by mouth once daily Sod Picosulf-Mag Ox-Citric Ac (Clenpiq) 10 mg-3.5 gram- 12 gram/175 mL solution Discontinued 175 ML PO Daily 350 0 February 29, 2024 11:00pm March 11, 2024 7:19am take first dose at 3PM evening before colonoscopy; 2nd dose at 9pm the night before colonoscopy Start: 03-01-2024 End: 03-11-2024 take 1 dose [...] tive TAB PO December 30, 2023 12:00am Varenicline Tartrate 0.5 mg (11)- 1 mg (42) tablets,dose pack (1 source) Start: 12-30-2023 End: 03-11-2024 Varenicline Tartrate 0.5 mg (11)- 1 mg (42) tablets,dose pack Discontinued TAB PO December 29, 2023 11:00pm March 11, 2024 7:23am Problems Active Problems Problem Classification Problem Date Documented Da te Episodic/Chronic Aortic; peripheral; and visceral artery aneurysms (20 sources) Aneurysm of infrarenal abdominal aorta ; 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: [Infrarenal abdominal aortic aneurysm, without rupture] Onset: 3 07-09-2023 Chronic Cancer of bronchus; lung (3 sources) Non-small cell lung cancer; 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: [Malignant neoplasm of unspecified part of unspecified bronchus or lung] Onset: 5 07-27-2024 Chronic Cancer of colon (19 sources) Carcinoma in situ of ascending colon; 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: [Carcinoma in situ of colon] Onset: 4 05-10-2024 Chronic Chronic obstructive pulmonary disease and bronchiectasis (20 sources) Centrilobular emphysema; 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: [Moderate chronic obstructive pulmonary disease] Onset: 3 08-20-2023 Chronic Disorders of lipid metabolism (20 sources) Hyperlipidemia; 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: [Hyperlipidemia, unspecified] Onset: 2 06-09-2022 Chronic Epilepsy; convulsions (2 sources) Seizure related finding; 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: [Unspecified convulsions] Onset: 4 06-15-2024 Episodic Esophageal disorders (20 sources) Gastroesophageal reflux disease without esophagitis; 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: [Gastro-esophageal reflux disease without esophagitis] Onset: Chronic Essential hypertension (20 sources) Hypertensive disorder; 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: [Essential (primary) hypertension] Onset: 3 06-09-2022 Chronic Genitourinary symptoms and ill-defined conditions (20 sources) Mixed incontinence; 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: [Incontinence] Onset: 2 Chronic Menopausal disorders (1 source) Postmenopausal atrophic vaginitis; 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: [POSTMENOPAUSAL ATROPHIC VAGINITIS] Onset: 3 Chronic Miscellaneous mental health disorders (2 sources) Psychophysiologic insomnia; 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: [Psychophysiologic insomnia] 08-02-2024 Chronic Nonspecific chest pain (3 sources) Chest pain, unspecified; 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: [CHEST PAIN UNSPECIFIED] Onset: 3 Episodic Occlusion or stenosis of precerebral arteries (5 sources) Left carotid artery stenosis; 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: [Occlusion and stenosis of left carotid artery] Chronic Other aftercare (1 source) Other fdc (current) drug therapy; 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: [OTH DIGITAL ANALYTICS MANAGER CURRENT DRUG THERAPY] Onset: 3 Episodic Other aftercare (1 source) alf (current) use of aspirin; 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: [DIGITAL ANALYTICS MANAGER CURRENT USE OF ASPIRIN] Onset: 3 Episodic Other and ill-defined heart disease (8 sources) Heart disease 06-09-2022 Chronic Other and unspecified benign neoplasm (2 sources) Polyp of colon; 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: [Polyp of colon] Onset: 4 Episodic Other and unspecified benign neoplasm (1 source) Adenomatous polyp of colon ; 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: [Benign neoplasm of colon, unspecified] 05-12-2024 Episodic Other circulatory disease (1 source) Personal history of transient ischemic attack (TIA), and cerebral infarction without residual deficits; 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: [PERS HX TIA AND CI NO RESID DEFICIT] Onset: 3 Episodic Other circulatory disease (20 sources) History of cerebrovascular accident; 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: [Personal history of transient ischemic attack (TIA), and cerebral infarction without residual deficits] Onset: 3 07-09-2023 Episodic Other circulatory disease (10 sources) Low blood pressure; 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: [Hypotension, unspecified] 12-27-2023 Episodic Other circulatory disease (1 source) History of hypotension; 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: [Personal history of other diseases of the circulatory system] 05-12-2024 Episodic Other circulatory disease (1 source) Personal history of other diseases of the circulatory system; 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: [Personal history of other diseases of circulatory system] 05-11-2024 Episodic Other gastrointestinal disorders (2 sources) Other specified diseases of intestine; 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: [Other specified diseases of intestine] Onset: 4 Episodic Other hereditary and degenerative nervous system conditions (20 sources) Restless legs; 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: [Restless legs syndrome] Onset: 3 08-20-2023 Chronic Other lower respiratory disease (5 sources) Other nonspecific abnormal finding of lung field; 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: [Swelling, mass, or lump in chest] Onset: 3 Episodic Other lower respiratory disease (2 sources) Solitary pulmonary nodule; 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: [Solitary pulmonary nodule] Onset: 4 Episodic Other nervous system disorders (20 sources) Polyneuropathy; 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: [Polyneuropathy, unspecified] Onset: 3 07-09-2023 Chronic Prolapse of female genital organs (2 sources) Cystocele, unspecified; 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: [Rectocele] Onset: 3 Chronic Residual codes; unclassified (1 source) Acquired absence of other specified parts of digestive tract; 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: [ACQ ABSENCE OTH PART DIGESTV TRACT] Onset: 3 Episodic Residual codes; unclassified (1 source) Acquired absence of both cervix and uterus; 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: [ACQUIRED ABSENCE BOTH CERVIX AND UTERUS] Onset: 3 Episodic Residual codes; unclassified (4 sources) Lack of awareness; 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: [Unspecified symptoms and signs involving cognitive functions and awareness] 08-02-2024 Episodic Substance-related disorders (20 sources) Nicotine dependence, cigarettes, uncomplicated; 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: [Smoker] Onset: 3 Chronic Unclassified (1 source) Abdominal aortic aneurysm, without rupture, unspecified; 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: [Abdominal aortic aneurysm, without rupture, unspecified] Onset: 4 Past or Other Problems Problem Classification Problem Date Documented Da te Episodic/Chronic Abdominal pain (20 sources) Unspecified abdominal pain; 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: [Upper abdominal pain] Onset: 11-13-2022 Episodic Genitourinary symptoms and ill-defined conditions (20 sources) H/O: urinary disease; 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: [Personal history of other diseases of urinary system] Onset: 05-11-2022 Episodic Malaise and fatigue (1 source) Weakness; 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: [Weakness] Onset: 12-27-2023 Episodic Mood disorders (20 sources) Mood disorders Onset: 07-09-2023 Resolved: 08-02-2024 07-09-2023 Other and unspecified benign neoplasm (20 sources) History of polyp of colon; 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: [Personal history of colonic polyps] Onset: 12-24-2022 Episodic Other and unspecified benign neoplasm (2 sources) Benign neoplasm of colon, unspecified; 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: [Benign neoplasm of colon] Onset: 04-21-2024 05-11-2024 Episodic Other circulatory disease (7 sources) History of transient ischemic attack Onset: 05-11-2022 08-11-2022 Episodic Other lower respiratory disease (20 sources) Lung mass; 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: [Other nonspecific abnormal finding of lung field] Onset: 01-04-2024 12-27-2023 Episodic Other screening for suspected conditions (not mental disorders or infectious disease) (20 sources) Encounter for screening for malignant neoplasm of respiratory organs; 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: [Encounter for screening mammogram for malignant neoplasm of breast] Onset: 07-09-2022 Episodic Syncope (20 sources) Syncope and collapse; 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: [Syncope and collapse] Onset: 01-04-2024 01-04-2024 Episodic Unclassified (1 source) Abdominal aortic aneurysm (AAA) without rupture, unspecified part I71.40 Unclassified (20 sources) Onset: 12-08-2023 12-08-2023 Results Test Name Value Interpretation Reference Range Facility HISTOLOGY - TISSUE EXAMon LAB AP CASE REPORT Normal [place] [facility] Comment on above: Result Comment: Surg ical Pathology Case: [id number] Authorizing Provider: Florinda Sandoval MD Collected: 06/21/2024 1421 Ordering Location: [facility] Received: 06/21/2024 1505 [facility] Endoscopy Pathologist: Alexandrea Bonds MD Specimens: A) - Large Intestine, Right/Ascending Colon, polyp across to tatto site B) - Large Intestine, Right/Ascending Colon, polyp adjcent to tatto site C) - Large Intestine, Right/Ascending Colon, polypectomy site bx r/o adenoma D) - Large Intestine, Hepatic Flexure Performed By: #### L [id number] #### [facility] (BEAKER) [address] [place] [address] LAB AP CLINICAL INFORMATION Order Diagnoses Normal [facility] Comment on above: Result Comment: K63. 5 - Polyp of ascending colon, unspecified type [ICD-10-CM] K63.89 - Colonic mass [ICD-10-CM] Performed By: #### L [id number] #### [facility] (BEAKER) [address] [place] [address] LAB AP GROSS DESCRIPTION [facility] Comment on above: Result Comment: A. L arge Intestine, Right/Ascending Colon. The specimen is received in formalin in a container labeled Bhupendra M Greyson and polyp across to tatto site. It consists of 5 chandler-pink, smooth soft tissue fragments, 0.1 to 0.4 cm in greatest dimension. The specimen is submitted entirely in 1 cassette. Carrie Abdalla, student fellow B. Large Intestine, Right/Ascending Colon. The specimen is received in formalin in a container labeled Bhupendra M Greyson and polyp adjcent to tatto site. It consists of 7 chandler-pink, ragged, focally erythematous soft tissue fragments, 0.2 to 0.4 cm in greatest dimension. The specimen is submitted entirely in 1 cassette. Carrie Abdalla, student fellow C. Large Intestine, Right/Ascending Colon. The specimen is received in formalin in a container labeled Bhupendra M Greyson and polypectomy site bx r/o adenoma. It consists of four chandler-so, ragged soft tissue fragments, 0.1 to 1.1 cm in greatest dimension. The specimen is submitted entirely in 1 cassette. Carrie Abdalla, student fellow D. Large Intestine, Hepatic Flexure. The specimen is received in formalin in a container labeled Bhupendra M Greyson and unspecified. It consists of 6 chandler-so, irregular, focally erythematous soft tissue fragments, 0.1 to 0.6 cm in greatest dimension. The specimen is submitted entirely in 1 cassette. Carrie Abdalla, student fellow Performed By: #### L [id number] #### [facility] (BEAK[facility]) [address] [place] [address] LAB AP MICROSCOPIC DESCRIPTION Microscopic examination performed. [facility] Comment on above: Performed By: #### L [id number] #### [facility] (BEAKER) [address] [place] [address] LAB AP REPORT FINAL DIAGNOSIS NARRATIVE Normal [facility] Comment on above: Result Comment: A. C olon, ascending polyp across tattoo site, biopsy: - Tubular adenoma B. Colon, ascending polyp adjacent to tattoo site, biopsy: - Tubular adenoma C. Colon, ascending polypectomy site, biopsy: - Benign colonic mucosa - No evidence of dysplasia D. Colon, hepatic flexure polyp, biopsy: - Hyperplastic polyp Performed By: #### L [id number] #### [facility] (BEAKER) [address] [place] [address] HPon 06-21-2024 HP History Of Present Illness Bhupendra Rubi is a 73 y.o. female with history of lung cancer who had a recent colonoscopy that revealed ascending colon polyp/mass that revealed high-grade dysplasia, invasive carcinoma could not be ruled out. The patient is scheduled to have a colonoscopy for possible endoscopic mucosal resection. Past Medical History She has a past medical history of Anxiety with depression, Centrilobular emphysema (CMS/HCC), Colon polyp, GERD (gastroesophageal reflux disease), Hyperlipidemia, Hypertension, Infrarenal abdominal aortic aneurysm (AAA) without rupture (CMS/HCC), Mass of right parotid gland, Motion sickness, Multiple pulmonary nodules, and Stroke (CMS/HCC). Surgical History She has a past surgical history that includes Hysterectomy; Cholecystectomy; Rotator cuff repair (Bilateral); Tubal ligation; Bronchoscopy; Colonoscopy; and Lung biopsy. Social History She reports that she quit smoking about 6 months ago. Her smoking use included cigarettes. She does not have any smokeless tobacco history on file. She reports that she does not currently use alcohol. She reports that she does not use drugs. Family History Family History Problem Relation Name Age of Onset Lung cancer Mother Other (blood clots) Sister Allergies Patient has no known allergies. Medications (Not in a hospital admission) Review of Systems Constitutional: Negative. Respiratory: Negative. Cardiovascular: Negative. Gastrointestinal: Negative. Genitourinary: Negative. Skin: Negative. Last Recorded Vitals Visit Vitals BP 163/86 Pulse 93 Temp 36.3 ???C (97.3 ???F) (Temporal) Resp 18 Ht 1.575 m (5' 2 ) Wt 66.8 kg (147 lb 4.3 oz) SpO2 94% BMI 26.94 kg/m??? Smoking Status Former BSA 1.71 m??? Physical Exam HEENT: Anicteric sclera, conjunctiva Chest: Unremarkable Heart: Unremarkable Abdomen: Soft, no tenderness Lower extremities: No edema Relevant Lab Results No results found for: NA , K , CL , CO2 , BUN , CREATININE , GLUCOSE , CALCIUM , ANIONGAP , EGFR , BCR Relevant Imaging Results FL in OR Narrative: Study: CT chest without contrast Sign And Symptoms:Pulmonary nodule . Comparison: None. Impression: Impression: *Axial noncontrast CT images of the chest demonstrate surgical localization and bronchoscopy for pulmonary nodule biopsy. There is dependent changes and atelectasis in both lungs. Reference air kerma is 179 mGy. Electronically signed: Bernardino Chaves. XR chest 1 view Narrative: Single view chest History: Difficulty breathing, shortness of breath Comparison: None Findings: Single portable view of the chest. No focal opacity, effusion or pneumothorax. Cardiomediastinal silhouette is within normal limits. Atherosclerotic changes of the thoracic aorta. Left mid lung consolidation or mass is noted. Impression: Impression: No evidence of acute cardiopulmonary process. Left midlung lateral mass. Electronically signed: Bernardino Chaves. Bronchoscopy Robotic Assisted (ion), EBUS with 3 or more stations Interventional Pulmonary Medicine Procedure Type: Robotic assisted bronchoscopy CT augmented, EBUS guided TBNA Date of procedure: 05/18/2024 Indication: Left upper lobe mass, mediastinal adenopathy Attending: Diana Warren MD Fellow(s): Boubacar FARFAN Consent/timeout: Obtained/performed Anesthesia: General Description of the procedure: Procedure was done in the OR. Airway maintained with ET tube. The bronchoscope was passed via the ET tube and advanced to the tracheobronchial tree. The visualized portion of trachea is normal. The ulisses is sharp. There is inspected at least to the second subsegmental level and there were no endobronchial lesions or mucosal abnormalities. The robotic bronchoscope was then activated. Registration completed. Successfully navigated to the left upper lobe nodule. We used a radial ultrasound. We were able to obtain a concentric view. 21-gauge needle was used to obtain a TBNA/FNA under ultrasound and fluoroscopic guidance. 6 passes obtained from the left upper lobe nodule. Under fluoroscopic guidance the forceps was deployed. The O-arm was used to confirm tool in lesion. Transbronchial biopsy from the left upper lobe nodule was performed. 5 passes obtained. Bronchoalveolar lavage left upper lobe was performed by flushing the catheter. 20 cc obtained. The robotic bronchoscope was then deactivated. EBUS scope was introduced. Lymph node examined biopsy was performed as follows: Station 4R was 8 mm. EBUS guided TBNA using a 21-gauge needle was performed. 4 passes obtained Station 7 was 8 mm. EBUS guided TBNA using a 21-gauge needle was performed. 4 passes obtained Station 4L was less than 5 mm. No biopsies were taken Station 10L, 11L were less than 5 mm. No biopsies were taken [employer] O arm CT scan was performed. 3-D reconstructions were performed on an independent workstation. I pers (more content not included)... Normal [facility] POCT GLUCOSE METER UNSOLICIT ED RESULTSon 06-21-2024 Glucose [Mass/Vol] 106 mg/dL High 70-105 [facility] Comment on above: Order Comment: Waive d Testing in the ED is performed under the ED CLIA certificate #[id number]. Result Comment: jhag eman Performed By: #### L [id number] #### [facility] ([facility]ER) [address] [place] [address] Telephoneon 06-15-2024 Telephone [id number] Maximiliano Rubi 1950 F Date Provider Department Center 06/15/2024 [id number] LACY [facility] ONC [facility] Family History Problem Relation Age of Onset Lung cancer Mother Other Sister Family Status - Relation Status Age at Mother Sister Reason for Visit and Comments: Appointment [375] - Tried calling patient to get scheduled for F/U appt 06/16, left a voicemail twice. CJ Normal [facility] Prep for Procedureon 024 Prep for Procedure [id number] Maximiliano Rubi 1950 F Date Provider Department Center 06/13/2024 Mckenzie-FLORINDA SANDOVAL [facility] Family History Problem Relation Age of Onset Lung cancer Mother Other Sister Family Status - Relation Status Age at Mother Sister Normal [facility] Orders Onlyon 05-27-2024 Orders Only [id number] Maximiliano Rubi 1950 F Date Provider Department Center 05/27/2024 MARTELL DALLAS [facility] Family History Problem Relation Age of Onset Lung cancer Mother Other Sister Family Status - Relation Status Age at Mother Sister Normal [facility] SURGICAL PATHOLOGY REFER ENCE LAB CONSULTon 05-26-[address] [facility] Comment on above: Surgical Pathology R eport Case: [id number] Authorizing Provider: Javier Villanueva Collected: 05/24/2024 11:27 AM Ordering Location: [facility] Received: 05/24/2024 11:26 AM [facility] Pathologist: Leroy Zayas MD, PhD Specimen: Slide(s), 16 SLIDES [id number] [facility] COM[facility] Comment on above: Thank you for allowi ng us the opportunity to review this case in consultation representing the colon polyp biopsies from the 73-year-old female. Per provided letter and patient note, the sales representative marine supplies felt the polyp was completely removed. Histologic [...] to contact the GI consultation service at [phone] with questions or if additional follow-up information becomes available. This case was reviewed in conjunction with the GI pathology fellow, Sangita Rai M.D. [facility] FINAL DIAGNOSIS [facility] Comment on above: A. 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 - See comment. FINAL PERFORMING LAB [facility] Comment on above: Diagnostic interpret ation performed at: [facility], [address] [place] [address], [place] [address] CLIA# [id number] Bearing Maker: Henri Mireles MD Specimen Type: FORMALIN-FIXED PARAFFIN-EMBEDDED TISSUE SPECIMEN Ordering Facility: External Submitter Address: , , Original Ordering Provider: JAVIER VILLANUEVA [facility] 36on 05-18-2024 36 Attempted to contact patient to schedule a colonoscopy with EMR. Patient is at [facility] already today for an EBUS, and tells me she is having the colonoscopy today, attempted to explain to her the difference in the procedures but she ended up hanging up on me. Will try her tomorrow. Normal [facility] Anesthesiaon 05-18-2024 Anesthesia [id number] Maximiliano Rubi 1950 F Date Provider Department Center 05/18/[id number], TAYL*[facility] [place] [facility] Family History Problem Relation Age of Onset Lung cancer Mother Other Sister Family Status - Relation Status Age at Mother Sister Normal [facility] HISTOLOGY - TISSUE EXAMon LAB AP ADDENDUM 1 Normal [facility] Comment on above: Result Comment: This case ([id number]) was sent to [facility] for PD-L1 22C3 IHC with tumor proportion score (TPS) interpretation and read by Rosie Azevedo MD. The result reads as follows: Tumor Proportion Score: 91-100% Adequacy of specimen: Adequate Addendum electronically signed by Javier Mensah MD on 06/02/2024 at 10:28 AM Performed By: #### L [id number] #### [facility] ([facility]AKER) [address] [place] [address] LAB AP ASR DISCLAIMER The interpretation of [...] the Clinical Laboratory Improvement Amendments of 1998. [facility] Comment on above: Performed By: #### L [id number] #### [facility] (BEAKER) [address] [place] [address] LAB AP CASE REPORT Normal [facility] Comment on above: Result Comment: Surg ical Pathology Case: [id number] Authorizing Provider: Diana Warren MD Collected: 05/18/2024 1331 Ordering Location: [facility] Main Operating Room Received: 05/18/2024 1432 Pathologist: Javier Mensah MD Specimen: Lung, Left Upper Lobe, Left Upper Lung Mass bx r/o Cancer Performed By: #### L [id number] #### [facility] ([facility] [place] [address] [place] [address] LAB AP CLINICAL INFORMATION Order Diagnoses [facility] Comment on above: Result Comment: R91. 1 - Lung nodule [ICD-10-CM] Performed By: #### L [id number] #### [facility] ([facility] [place] [address] [place] [address] LAB AP DIAGNOSIS COMMENT [facility] Comment on above: Result Comment: Immu [...] if clinically indicated. Performed By: #### L [id number] #### [facility] (BEAKER) [address] [place] [address] LAB AP GROSS DESCRIPTION [facility] Comment on above: Result Comment: A. L chantel, Left Upper Lobe. Received in formalin labeled with the patient's name Bhupendra Rubi and left upper lung mass BX rule out cancer, is a 2.0 x 0.3 x 0.1 cm aggregate of chandler-pink, feathery soft tissue fragments. The specimen is filtered and submitted in toto in 1 cassette. Saniya Carson, Pathologists' Manager Instrumentation Student Performed By: #### L [id number] #### [facility] (BEAKER) [address] [place] [address] LAB AP MICROSCOPIC DESCRIPTION Microscopic examination performed. [facility] Comment on above: Performed By: #### L [id number] #### [facility] (BEAKER) [address] [place] [address] LAB AP REPORT FINAL DIAGNOSIS NARRATIVE [facility] Comment on above: Result Comment: Phillip golden, left upper lobe, biopsy: -Adenocarcinoma. Preliminary result electronically signed by Javier Mensah MD on 05/20/2024 at 12:17 PM Performed By: #### L [id number] #### [facility] (BEAKER) [address] [place] [address] HPon 05-18-2024 ----- ----- Attestation signed by Diana Warren MD at 05/18/2024 11:17 AM Re-explained the procedure to the patient along with the associated risk of pneumothorax, bleeding, hypoxia, and respiratory failure. Patient is agreeable and will proceed with the scheduled robotic bronchoscopy, TBBx, and Ebus TBNA Diana Warren MD Interventional Pulmonary Medicine Pulmonary and Critical Care Medicine [facility] ----- History Reviewed reviewed. The patient [...] no edema. Skin: Warm and dry. Normal [facility] NON-LOG LOADER HELPER CYTOLOGY - CELLULAR EXAMon 05-18-2024 LAB AP CASE REPORT Normal [facility] Comment on above: Result Comment: Non- gynecologic Cytology Case: [id number] Authorizing Provider: Diana Warren MD Collected: 05/18/2024 [...] 4R FNA Performed By: #### L [id number] ####[facility] (BEAKER)[address] [place] [address] LAB AP CLINICAL INFORMATION Normal [facility] Comment on above: Result Comment: PET avid left upper lobe lung nodule that has increased in size (2.2 cm), 40 pack-year smoking history Performed By: #### L [id number] ####[facility] (BEAKER)[address] [place] [address] LAB AP DIAGNOSIS COMMENT Normal [facility] Comment on above: Result Comment: Ther e is a moderate amount of tumor cells present in the cell block of part A and scant tumor in the cell block of part B for additional studies, if clinically indicated. See also concurrent biopsy, [id number]. Performed By: #### L [id number] ####[facility] ([place])[address] [place] [address] LAB AP GROSS DESCRIPTION Normal [facility] Comment on above: Result Comment: A. 2 air-dried slides, 2 alcohol-fixed slides, 30 mL CytoLyt with clear, red fluid and clots B. 15 mL cloudy, red fluid C. 30 mL CytoLyt with clear, pink fluid D. 30 mL CytoLyt with clear, pink fluid and white flecks Performed By: #### L [id number] ####[facility] ([place])[address] [place] [address] LAB AP INTRAOPERATIVE CONSULTATION Normal [facility] Comment on above: Result Comment: A. [...] material submitted.* Performed By: #### L [id number] ####[facility] ([facility])[address] [place] [address] LAB AP MICROSCOPIC DESCRIPTION Normal [facility] Comment on above: Result Comment: A. [...] and blood. Performed By: #### L [id number] ####[facility] ([facility])[address] [place] [address] LAB AP REPORT FINAL DIAGNOSIS NARRATIVE Normal [facility] Comment on above: Result Comment: A. L chantel, Left Upper Lobe, Ion-guided fine needle aspiration: - Non-small cell carcinoma. See concurrent surgical biopsy [id number] for results of immunohistochemistry. B. Lung, Left Upper Lobe, bronchoalveolar lavage: - Non-small cell carcinoma C. Lymph Node, Station 7, EBUS-guided fine needle aspiration: - Negative for metastatic malignancy. - Cellular evidence of a lymph node. D. Lymph Node, Station 4R, EBUS-guided fine needle aspiration: - Negative for metastatic malignancy. - Cellular evidence of a lymph node. Performed By: #### L [id number] ####[facility] (BEAKER)[address] [place] [address] NURSNOTEon 05-18-[address] Warren viewed c hest xray at bedside and gave sheet writer verbal permission to discharge patient home. RN reviewed discharge instructions with patient and significant other at bedside. No questions or concerns expressed at this time. Normal [facility] NURSNOTE X ray is at bedside Normal [facility] NURSNOTE STAT Portable Chest X-Ray in PACU. Follow up at [facility] with Carrol Kunz, for lab results in 2-4 weeks. May resume a Regular Diet and home medications if Chest X-Ray is normal. Normal [facility] NURSNOTE Bronch/EBUS Findings : Left Upper Lung Mass Normal [facility] POCT GLUCOSE METER UNSOLICIT ED RESULTSon 05-18-2024 Glucose [Mass/Vol] 96 mg/dL Normal 70-105 [facility] Comment on above: Order Comment: Waive d Testing in the ED is performed under the ED CLIA certificate #[id number]. Result Comment: aepp ink Performed By: #### L [id number] ####[facility] (BEAKER)[address] [place] [address] Telephoneon 05-18-2024 Telephone [id number] Maximiliano Rubi 1950 F Date Provider Department Center 05/18/2024 CarineMesfinMARTELL RIBERA [facility] Family History Problem Relation Age of Onset Lung cancer Mother Other Sister Family Status - Relation Status Age at Mother Sister Normal [facility] Prep for Procedureon 024 Prep for Procedure [id number] GreysonMaximiliano litrupti Wilburn 1950 F Date Provider Department Center 05/12/2024 383-DIANA WARREN [facility] [place] Family History Problem Relation Age of Onset Lung cancer Mother Other Sister Family Status - Relation Status Age at Mother Sister Normal [facility] CT CHEST WO IV CONTRASTon CT [...] Menon MD. Not Vldtd Invalid Interpretation Code [facility] HPon 04-28-2024 HP ----- ----- Attestation [...] Age: 73 y.o. : 1950 Account No.: [id number] Referring physician: Dr. Lundberg Chief complaint: Lung [...] was initiated by the patient and conducted [id number] with use of audio-only real time telephone [...] Physical examination (more content not included)... 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 Normal [facility] CT abdomen pelvis w conon CT abdomen pelvis w con [facility] [place] [address] [place] [address] CT Scan Report Signed Patient: Bhupendra Rubi MR#: [id number] 306 : 1950 Acct:[id number] Age/Sex: 73 / F ADM Date: 04/21/24 Loc: CT Room: Type: [facility] Attending Dr: Mikhail Moon MD Copies to: Mikhail Moon MD Ordering Provider: Mikhail Moon MD Date of Service: 04/21/24 CT/CT abdomen pelvis w con: D12.6 - Benign neoplasm of colon, unspecified ([id number]) CT/CT chest w con: D12.6 - Benign [...] Jalloh Jr., D.OCathy04/21/2024 4:03 PM Dictation Location: [place] [address] Transcribed By: [facility] 04/21/24 1603 Dictated By: Napoleon Jalloh Jr, DO 04/21/24 1556 Signed By: 04/21/24 1603 Normal [facility] Creatinineon 04-21-2024 GFR/1.73 sq M.predicted MDRD (S/P/Bld) [Vol rate/Area] mL/min/{1.73_m2} Normal [facility] Comment on above: Order Comment: STAT FOR CT Result Comment: PERF ORMED BY: [place] [address] PATHOLOGIST DIETICIAN JENNIFER ALANIZ M.D. Performed By: #### C EA #### [facility] [address] [place] [address] Creatinine [Mass/volume] in Serum or PlasmaOrdered By: Imbethanie Moon on 04-21-2024 Creatinine [Mass/Vol] 0.91 mg/dL Normal 0.60-1.20 [facility] Comment on above: Order Comment: STAT FOR CT Performed By: #### C EA #### [facility] [address] [place] [address] No Panel InformationOrdered By: Imad Asaad on 04-21-2024 Estimated GFR (CKD-EPI) > 60.0 mL/Min [facility] Creatinine Clearance (Chem N/A [facility] Serum or plasma carcinoembry onic antigen measurement (mass/volume)Ordered By: Imad Dakotaad on 04-21-2024 Carcinoembryonic Ag [Mass/Vol] 10.0 ng/mL High 0.0-3.0 [facility] Comment on above: Serial tumor marker results determined by assays using different manufacturers or methods may not be comparable.[facility] scanning tech and method:ANTIONE UNICEL DXI, 2 SITE IMMUNOENZYMATIC SANDWICH ASSAY. Urea nitrogen [Mass/volume] in Serum or PlasmaOrdered By: Imad Asaad on 04-21-2024 Urea nitrogen [Mass/Vol] 18 mg/dL Normal 7-25 [facility] Comment on above: Order Comment: STAT FOR CT Performed By: #### C EA #### [address] No Panel InformationOrdered By: Imad Dakotaad on 03-25-2024 Miscellaneous Pathology Test See comment [facility] Comment on above: See report. Scanned copy available in EMR. Pathology Request for Lab Co rpon 03-25-2024 Pathology Request for Lab Crys Normal [facility] Comment on above: Order Comment: PATHO LOGY GI SPECIMEN Result Comment: See report. Scanned copy available in EMR. PERFORMED BY: [place] [address] PATHOLOGIST DIETICIAN JENNIFER ALANIZ M.D. Performed By: #### P ATH TO [facility] #### [address] HISTOPLASMA GAL'BARB AG UR on 03-17-2024 HISTOPLASMA GAL'BARB AG UR Negative <0.2 ng/mL [facility] Comment on above: Performed at: [address] [id number] Ip Paralegal: Erick Khalil MD, Phone: [phone] URINE [facility] ALL HGB HCTon 03-09-2024 Hematocrit (Bld) [Volume fraction] 38.5 % 36.0 - 48.0 % [facility] Hemoglobin (Bld) [Mass/Vol] 12.3 g/dL 12.0 - 16.0 g/dL [facility] 03-09-2024 L Specimen: [id number] Received: 03/10/24 Status: TRINIDAD Araiza Num: [id number] Spec Type: Surgical Subm Dr: Leigh Thompson DO Tissues: A Lung CT-Guided Biopsy (BAL HÉCTOR) Procedures: HE/2, Gross/Micro L4 Age/ Patient Sex Location Account Attending Physician Bhupendra Rubi 73/F [place] [id number] Leigh Thompson DO SPEC NUM: [id number] RECD: 03/10/24 STATUS: TRINIDAD ARAIZA NUM: [id number] LORA: 03/09/[address]: Leigh Thompson DO ENTERED: 03/10/24-[address]: Pravene Villalobos SPEC TYPE: Surgical DEPT: [facility] ENTERED BY: [id number] RECV BY: [id number] ORDERED: HE/2, Gross/Micro L4 ORDERED: PAMELANandini Gross/Micro L4 Pathological Diagnosis Left upper lobe [...] are performed supporting the above interpretation Specimen: [id number] Received: 03/10/24 Status: TRINIDAD Araiza Num: [id number] Spec Type: Surgical Subm Dr: Leigh Thompson DO Tissues: A Lung CT-Guided Biopsy (BAL HÉCTOR) Procedures: PAMELANandini Gross/Micro L4 Patient: Bhupendra Rubi [id number] (Continued) Specimen: [id number] Received: 03/10/24 (Continued) Signed (signature on file) Jason Gomez MD 03/18/24 0936 Specimen: [id number] Received: 03/10/24 Status: TRINIDAD Brii Num: [id number] Spec Type: Surgical Subm Dr: Leigh Thompson DO Tissues: A Lung CT-Guided Biopsy (BAL HÉCTOR) Procedures: HE/Nandini, Gross/Micro L4 Patient: Bhupendra Rubi [id number] (Continued) Specimen: [id number] Received: 03/10/24 (Continued) CPT Codes 03049 Specimen: [id number] Received: 03/10/24 Status: TRINIDAD Araiza Num: [id number] Spec Type: Surgical Subm Dr: Leigh Thompson DO Tissues: A Lung CT-Guided Biopsy (BAL HÉCTOR) Procedures: PAMELA/Nandini, Gross/Micro L4 Patient: Bhupendra Rubi [id number] (Continued) Signed (signature on file) Jason Gomez MD 03/18/2436 Normal [facility] L Specimen: [id number] Received: 03/15/24-4436 Status: TRINIDAD Araiza Num: [id number] Spec Type: Cytology Subm Dr: Leigh Thompson DO Tissues: A BRONWASH (LEFT UPPER LOBE) Procedures: HE/2, Gross/Micro L4, Cyto Prepstain, PAPSTN Age/ Patient Sex Location Account Attending Physician GreysonBhupendra Wilburn 73/F [place] [id number] Leigh Thompson DO SPEC NUM: [id number] RECD: 03/15/24 STATUS: GRIFFINRubina ARAIZA NUM: [id number] LORA: 03/09/24-[address]: Leigh Thompson DO ENTERED: 03/15/[address]: Griselda,Lab SPEC TYPE: Cytology DEPT: [facility] ENTERED BY: [id number] RECV BY: [id number] ORDERED: HE/2, Gross/Micro L4, Cyto Prepstain, PAPSTN ORDERED: HE/2, Gross/Micro L4, Cyto Prepstain, PAPSTN Pathological Diagnosis Left lung upper lobe cytology: Negative for malignant cells. Gross Description Received fresh is 13 ml clear colorless unfixed fluid for cytology said to have been obtained as left upper lobe for cytology. ThinPrep and cell block preparations are prepared for microscopic examination.(LA/al) CPT Codes 28958 Specimen: [id number] Received: 03/15/24 Status: TRINIDAD Brii Num: [id number] Spec Type: Cytology Subm Dr: Leigh Thompson DO Tissues: A [facility] (LEFT UPPER LOBE) Procedures: HE/2, Gross/Micro L4, Cyto Prepstain, PAPSTN Patient: Bhupendra Rubi [id number] (Continued) Signed (signature on file) Diana Massey MD 03/16/24 1430 Normal [facility] ALL CBC WITH AUTO DIFFon BASOPHILS ABSOLUTE AUTO 0.1 N [facility] Basophils/100 WBC (Bld) 0.9 % 0.2 - 2.0 % [facility] Eosinophils/100 WBC (Bld) 1.1 % 0.9 - 7.0 % [facility] Erythrocyte distribution width (RBC) [Ratio] 14.9 % 11.0 - 15.0 % [facility] Hematocrit (Bld) [Volume fraction] 43.8 % 36.0 - 48.0 % [facility] Hemoglobin (Bld) [Mass/Vol] 14.2 g/dL 12.0 - 16.0 g/dL [facility] IMMATURE GRANULOCYTES ABS AUTO 0.03 [facility] Immature granulocytes/100 WBC (Bld) 0.3 % 0.0 - 0.5 % [facility] Interpretation and review of laboratory results Abnormal [facility] LYMPHOCYTES ABSOLUTE AUTO 2.6 [facility] Lymphocytes/100 WBC (Bld) 23.0 % 20.5 - 60.0 % [facility] MCH (RBC) [Entitic mass] 28.8 pg 26. 7 - 34.[address] [facility] MCHC (RBC) [Mass/Vol] 32.4 g/dL 29.9 - 35.2 g/dL [facility] MCV (RBC) [Entitic vol] 88.8 fL 81.0 - 99.0 fL [facility] MONOCYTES ABSOLUTE AUTO 1.0 High N [facility] Monocytes/100 WBC (Bld) 8.5 % 1.7 - 12.0 % [facility] NEUTROPHILS ABSOLUTE AUTO 7.[address] [facility] Neutrophils/100 WBC (Bld) 66.2 % 43.0 - 75.0 % [facility] Platelet mean volume (Bld) [Entitic vol] 9.9 fL 9.5 - 13.[address] [facility] TBH EO # 0.1 [facility] PLT 331 [facility] TB RBC 4.93 [facility] TB WBC 11.[address] [facility] US aortaon 12-30-2023 US aorta [facility] [address] [place] [address] Ultrasound Report Signed Patient: Bhupendra Rubi MR#: [id number] 306 : 1950 Acct:[id number] Age/Sex: 73 / F ADM Date: 12/30/23 Loc: [facility] Room: Type: [facility] Attending Dr: Cherelle Bautista STRUCTURAL RIGGER-C Ordering Provider: Cherelle Bautisat APRN Date of Service: 12/30/23 US/US aorta: [...] Adam Keller M.D.12/30/2023 9:53 AM Dictation Location: [place] [address] Tech: Yakelin Gibson Transcribed By: JOSE MIGUEL 12/30/23952 Dictated By: Adam Keller MD 12/30/2349 Signed By: 12/30/23952 Normal [facility] ABO/Rh Retypeon 12-27-2023 ABO/RH Recheck Result Positive Normal [facility] Comment on above: Result Comment: PERF ORMED BY: [place] [address] PATHOLOGIST DIETICIAN JENNIFER ALANIZ M.D. Activated partial thrombopla stin time (aPTT) in platelet poor plasma by coagulation aOrdered By: Bernardino Bhakta on 12-27-2023 aPTT Coag (PPP) [Time] 24.6 s Low 25.1-36.5 [facility] Comment on above: A hematocrit value g reater than 55% may lead to inaccurate results in coagulation testing. Patients having hematocrit values >55% require a special collection tube for coagulation studies. Please contact the laboratory at [phone] for redraw instructions. Alanine aminotransferase [En zymatic activity/volume] in Serum or PlasmaOrdered By: Bernardino Bhakta on 12-27-2023 ALT [Catalytic activity/Vol] 10 U/L Normal 7-52 [facility] Comment on above: Performed By: #### H S TROP, CK, CMP, CBC #### [facility] [address] [place] [address] [place] Albumin [Mass/volume] in Ser um or Plasma by Bromocresol green (BCG) dye binding methoOrdered By: Bernardino Bhakta on 12-27-2023 Albumin BCG dye [Mass/Vol] 4.0 g/dL 3.5-5.7 [facility] Alkaline phosphatase [Enzyma tic activity/volume] in Serum or PlasmaOrdered By: Bernardino Bhakta on 12-27-2023 ALP [Catalytic activity/Vol] 105 U/L High 34-104 [facility] Comment on above: Performed By: #### H S TROP, CK, CMP, CBC #### [facility] [address] [place] [address] Arterial Blood Gason 024 ABG Base Excess -2.4 mmol/L Normal -3.0-3.0 [facility] Comment on above: Performed By: #### A BG #### Point of Care testing , ABG Frac Inspired O2 32 % Normal [facility] Comment on above: Performed By: #### A BG #### Point of Care testing , ABG Liter Flow 3 Normal [facility] Comment on above: Performed By: #### A BG #### Point of Care testing , ABG Oxygen Content 7.5 mmol/L Normal 6.6-9.7 [facility] Comment on above: Performed By: #### A BG #### Point of Care testing , ABG Oxygen Saturation 95.5 % Normal 95.0-100.0 [facility] Comment on above: Performed By: #### A BG #### Point of Care testing , ABG PCO2 46.7 mm[Hg] High 35.0-45.0 [facility] Comment on above: Performed By: #### A BG #### Point of Care testing , ABG PH 7.33 Low 7.35-7.45 [facility] Comment on above: Performed By: #### A BG #### Point of Care testing , ABG PO2 84.0 mm[Hg] Normal 80.0-100.0 [facility] Comment on above: Performed By: #### A BG #### Point of Care testing , Oxygen Device Nasal Cannula Normal [facility] Comment on above: Performed By: #### A BG #### Point of Care testing , Respiratory Critical Normal [facility] Comment on above: Result Comment: Crit ical Value called on: 12/27/2023 at 11:36 PERFORMED BY: [facility] [place] [address] PATHOLOGIST DIETICIAN JENNIFER ALANIZ M.D. Performed By: #### A BG #### Point of Care testing , VBG Draw Site Left Radial Normal [facility] Comment on above: Performed By: #### A BG #### Point of Care testing , Arterial Blood GasOrdered By : Bernardino Bhakta on 12-27-2023 CO2 [Moles/Vol] 25.3 mmol/L Normal 23.0-27.0 [facility] Comment on above: Performed By: #### A BG #### Point of Care testing , HCO3 (Bld) [Moles/Vol] 23.8 mmol/L Normal 23.0-29.[address] [facility] Comment on above: Performed By: #### A BG #### Point of Care testing , Aspartate aminotransferase [ Enzymatic activity/volume] in Serum or PlasmaOrdered By: Bernardino Bhakta on 12-27-2023 AST [Catalytic activity/Vol] 10 U/L Low 13-39 [facility] Comment on above: Performed By: #### H S TROP, CK, CMP, CBC #### [address] Automated basophil %Ordered By: Bernardino Bhakta on 12-27-2023 Basophils/100 WBC (Bld) 0.6 % Normal . [facility] Comment on above: Performed By: #### H S TROP, CK, CMP, CBC #### [address] Automated basophil countOrde red By: Bernardino Bhakta on 12-27-2023 Basophils (Bld) [#/Vol] 0.1 10*3/uL Normal 0.0-0.2 [facility] Comment on above: Result Comment: PERF ORMED BY: [place] [address] PATHOLOGIST DIETICIAN JENNIFER ALANIZ M.D. Performed By: #### H S TROP, CK, CMP, CBC #### [address] Automated blood monocyte cou ntOrdered By: Bernardino Bhakta on 12-27-2023 Monocytes (Bld) [#/Vol] 1.3 10*3/uL High 0.0-0.8 [facility] Comment on above: Performed By: #### H S TROP, CK, CMP, CBC #### [place] [id number] [place] Automated eosinophil %Ordere d By: Bernardino Bhakta on 12-27-2023 Eosinophils/100 WBC (Bld) 0.6 % Normal . [facility] Comment on above: Performed By: #### H S TROP, CK, CMP, CBC #### [address] Automated eosinophil countOr dered By: Bernardino Bhakta on 12-27-2023 Eosinophils (Bld) [#/Vol] 0.1 10*3/uL Normal 0.0-0.45 [facility] Comment on above: Performed By: #### H S TROP, CK, CMP, CBC #### [address] Automated monocyte %Ordered By: Bernardino Bhakta on 12-27-2023 Monocytes/100 WBC (Bld) 9.8 % Normal . [facility] Comment on above: Performed By: #### H S TROP, CK, CMP, CBC #### [address] Automated neutrophil %Ordere d By: Bernardino Bhakta on 12-27-2023 Neutrophils/100 WBC (Bld) 61.6 % Normal . [facility] Comment on above: Performed By: #### H S TROP, CK, CMP, CBC #### [address] BNP ser/plasOrdered By: Urbano Bhakta on 12-27-2023 Natriuretic peptide B (Bld) [Mass/Vol] 32.0 pg/mL Normal 5-100 [facility] Comment on above: Result Comment: PERF ORMED BY: [place] [address] PATHOLOGIST DIETICIAN JENNIFER ALANIZ M.D. Performed By: #### B STRUCTURAL RIGGER #### [address] Bacteria [Presence] in Urine sediment by Light microscopyOrdered By: Bernardino Bhakta on 12-27-2023 Bacteria LM Ql (Urine sed) 1+ [HPF] High None Seen [facility] Comment on above: Microscopic results may be affected due to low specimen volume. Bacterial blood cultureOrder ed By: Bernardino Bhakta on 12-27-2023 Bacteria identified Cx Nom (Bld) NO GROWTH 5 DAYS [facility] Bacteria identified Cx Nom (Bld) NO GROWTH 5 DAYS [facility] Bilirubin Test strip Ql (U)O rdered By: Bernardino Bhakta on 12-27-2023 Bilirubin Ql (U) Negative Negative [facility] Bilirubin.total [Mass/volume ] in Serum or PlasmaOrdered By: Bernardino Bhakta on 12-27-2023 Bilirubin [Mass/Vol] 0.3 mg/dL Normal 0.3-1.0 [facility] Comment on above: Performed By: #### H S TROP, CK, CMP, CBC #### [facility] [address] [place] [address] Blood Cultureon 12-27-2023 Bacteria identified Cx Nom (Bld) NO GROWTH 5 DAYS PERFORMED BY: [place] [address] PATHOLOGIST DIETICIAN JENNIFER ALANIZ M.D. Normal [facility] Comment on above: Performed By: #### C EA #### [address] Bacteria identified Cx Nom (Bld) NO GROWTH 5 DAYS PERFORMED BY: [place] [address] PATHOLOGIST DIETICIAN JENNIFER ALANIZ M.D. Normal [facility] Comment on above: Performed By: #### C EA #### [address] angio chest PE protocolon 12-27-2023 CT angio chest PE protocol [facility] [place] [address] CT Scan Report Signed Patient: Bhupendra Rubi MR#: [id number] 306 : 1950 Acct:[id number] Age/Sex: 73 / F ADM Date: 12/27/23 Loc: ER Room: Type: [facility] ER Attending Dr: Copies to: [...] Adam Berger M.D.12/27/2023 12:14 PM Dictation Location: [place] [address] Transcribed By: [facility] 12/27/23 1214 Dictated By: Adam Berger DO 12/27/23 1210 Signed By: 12/27/23 1214 Normal [facility] Calcium [Mass/volume] in Ser um or PlasmaOrdered By: Bernardino Bhakta on 12-27-2023 Calcium [Mass/Vol] 9.3 mg/dL Normal 8.6-10.3 [facility] Comment on above: Performed By: #### H S TROP, CK, CMP, CBC #### [facility] [address] Carbon dioxide, total [Moles /volume] in Serum or PlasmaOrdered By: Bernardino Bhakta on 12-27-2023 CO2 [Moles/Vol] 26.9 mmol/L Normal 21.0-31.0 [facility] Comment on above: Performed By: #### H S TROP, CK, CMP, CBC #### [address] Chloride [Moles/volume] in S [place] or PlasmaOrdered By: Bernardino Bhakta on 12-27-2023 Chloride [Moles/Vol] 104 mmol/L Normal 98-107 [facility] Comment on above: Performed By: #### H S TROP, CK, CMP, CBC #### [address] Color of Urine by AutoOrdere d By: Bernardino Bhakta on 12-27-2023 Color (U) Yellow Normal Yellow [facility] Comment on above: Order Comment: Name Collection Type:: Clean-Voided Midstream Performed By: #### O B(GUAIAC) #### [address] Complete Blood Count Auto Di ffon 12-27-2023 Mean Corpuscular HGB Conc 33.0 g/dL Normal 32.0-35.0 [facility] Comment on above: Performed By: #### H S TROP, CK, CMP, CBC #### [address] Monocytes/100 WBC (Bld) 19.53 % Normal 0.00-20.00 [facility] Comment on above: Performed By: #### H S TROP, CK, CMP, CBC #### [address] NRBC% 0.1 /100{WBC} Normal 0-0.5 [facility] Comment on above: Performed By: #### H S TROP, CK, CMP, CBC #### [address] Comprehensive Metabolic Pane perez 12-27-2023 Albumin [Mass/Vol] 4.0 g/dL Normal 3.5-5.7 [facility] Comment on above: Performed By: #### H S TROP, CK, CMP, CBC #### [address] [place] [address] [place] Creatinine Clr Calc Pharmacy 50.59 Normal [facility] Comment on above: Result Comment: PERF ORMED BY: [place] [address] PATHOLOGIST DIETICIAN JENNIFER ALANIZ M.D. Performed By: #### H S TROP, CK, CMP, CBC #### [address] GFR/1.73 sq M.predicted MDRD (S/P/Bld) [Vol rate/Area] mL/min/{1.73_m2} Normal [facility] Comment on above: Performed By: #### H S TROP, CK, CMP, CBC #### [address] Creatine kinase [Enzymatic a ctivity/volume] in Serum or PlasmaOrdered By: Bernardino Bhakta on 12-27-2023 CK [Catalytic activity/Vol] 41 U/L Normal 30-223 [facility] Comment on above: Performed By: #### H S TROP, CK, CMP, CBC #### [address] Creatinine [Mass/volume] in Serum or PlasmaOrdered By: Bernardino Bhakta on 12-27-2023 Creatinine [Mass/Vol] 0.94 mg/dL Normal 0.60-1.20 [facility] Comment on above: Performed By: #### H S TROP, CK, CMP, CBC #### [address] D-Dimer High Sensitivityon 0 12-27-2023 D-Dimer High Sensitivity 480 ng/mL High 0-243 [facility] Comment on above: [...] coagulation studies. Please contact the laboratory at [phone] for redraw instructions. PERFORMED BY: [place] [address] PATHOLOGIST DIETICIAN JENNIFER ALANIZ M.D. Performed By: #### C EA #### [place] [address] [place] Dipstick and Microscopicon 0 12-27-2023 Bacteria,Urine 1+ High None Seen [facility] Comment on above: Order Comment: Name Collection Type:: Clean-Voided Midstream Result Comment: Micr oscopic results may be affected due to low specimen volume. PERFORMED BY: [place] [address] PATHOLOGIST DIETICIAN JENNIFER ALANIZ M.D. Performed By: #### O B(GUAIAC) #### [place] [address] [place] Bilirubin,Urine Negative Normal Negative [facility] Comment on above: Order Comment: Name Collection Type:: Clean-Voided Midstream Performed By: #### O B(GUAIAC) #### [address] Glucose Ql (U) Normal Normal Normal [facility] Comment on above: Order Comment: Name Collection Type:: Clean-Voided Midstream Performed By: #### O B(GUAIAC) #### [place] [address] [place] Nitrite,Urine Negative Normal Negative [facility] Comment on above: Order Comment: Name Collection Type:: Clean-Voided Midstream Performed By: #### O B(GUAIAC) #### [place] [id number] [place] Occult Blood,Urine Negative Normal Negative [facility] Comment on above: Order Comment: Name Collection Type:: Clean-Voided Midstream Result Comment: PERF ORMED BY: [place] [address] PATHOLOGIST DIETICIAN JENNIFER ALANIZ M.D. Performed By: #### O B(GUAIAC) #### [place] [address] [place] Protein,Urine Negative Normal Negative [facility] Comment on above: Order Comment: Name Collection Type:: Clean-Voided Midstream Performed By: #### O B(GUAIAC) #### [place] [address] [place] RBC,Urine None Seen Normal 0-4 [facility] Comment on above: Order Comment: Name Collection Type:: Clean-Voided Midstream Result Comment: Micr oscopic results may be affected due to low specimen volume. Performed By: #### O B(GUAIAC) #### [place] [address] [place] Specificy Keldron,Urine 1.043 High 1.00 1-1.03 0 [facility] Comment on above: Order Comment: Name Collection Type:: Clean-Voided Midstream Performed By: #### O B(GUAIAC) #### [place] [address] [place] Squamous Epithelial Cell,Urine 5-9 High 0-2 [facility] Comment on above: Order Comment: Name Collection Type:: Clean-Voided Midstream Result Comment: Micr oscopic results may be affected due to low specimen volume. Performed By: #### O B(GUAIAC) #### [place] [address] [place] Urobilinogen,Urine Normal Normal Normal [facility] Comment on above: Order Comment: Name Collection Type:: Clean-Voided Midstream Performed By: #### O B(GUAIAC) #### [place] [address] [place] WBC,Urine 5-9 High 0-4 [facility] Comment on above: Order Comment: Name Collection Type:: Clean-Voided Midstream Result Comment: Micr oscopic results may be affected due to low specimen volume. Performed By: #### O B(GUAIAC) #### [facility] [address] [place] [address] ECG 12 lead ECGon 12-27-2023 ECG 12 lead ECG [facility] [place] [address] [place] [address] Electrocardiograph Report Signed Patient: Bhupendra Rubi MR#: [id number] 306 : 1950 Acct:[id number] Age/Sex: 73 / F ADM Date: 12/27/23 Loc: ER Room: Type: [facility] ER Attending Dr: Ordering Provider: Bernardino Bhakta [...] By Bernardino Bhakta MD 12/11 Normal [facility] Epithelial cells.squamous [# /area] in Urine sediment by Microscopy high power fieldOrdered By: Bernardino Bhakta on 12-27-2023 Epithelial cells.squamous LM.HPF (Urine sed) [#/Area] 5-9 [HPF] High 0-2 [facility] Comment on above: Microscopic results may be affected due to low specimen volume. Erythrocyte distribution wid th [Ratio] by Automated countOrdered By: Bernardino Bhakta on 12-27-2023 Erythrocyte distribution width (RBC) [Ratio] 15.6 % High 11.9-15.3 [facility] Comment on above: Performed By: #### H S TROP, CK, CMP, CBC #### [facility] [address] [place] [address] Erythrocytes [#/area] in Uri ne sediment by Microscopy high power fieldOrdered By: Bernardino Bhakta on 12-27-2023 RBC LM.HPF (Urine sed) [#/Area] None seen [HPF] 0-4 [facility] Comment on above: Microscopic results may be affected due to low specimen volume. Erythrocytes [#/volume] in B lood by Automated countOrdered By: Bernardino Bhakta on 12-27-2023 RBC (Bld) [#/Vol] 5.03 10*6/uL High 3.60-5.00 [facility] Comment on above: Performed By: #### H S TROP, CK, CMP, CBC #### [facility] [address] Fecal occult blood detection by immunochemistryOrdered By: Bernardino Bhakta on 12-27-2023 Hemoglobin.gastrointesti nal Ql (Stl) [facility] Fibrin D-dimer [Presence] in Platelet poor plasma by Latex agglutinationOrdered By: Bernardino Bhakta on 12-27-2023 Fibrin D-dimer LA Ql (PPP) 480 ng/mL High 0-243 [facility] Comment on above: The reference range [...] coagulation studies. Please contact the laboratory at [phone] for redraw instructions. Glucose [Mass/volume] in Ser um or PlasmaOrdered By: Bernardino Bhakta on 12-27-2023 Glucose [Mass/Vol] 120 mg/dL High 70-100 [facility] Comment on above: ADA recommended refe rence rangeRandom Glucose Reference Range is dependent on time and content of last meal. Glucose of more than 200 mg/dL in a nonstressed, ambulatory subject supports the diagnosis of Diabetes Mellitus. Result Comment: [facility] [place] Glucose Reference Range is dependent on time and content of last meal. Glucose of more than 200 mg/dL in a nonstressed, ambulatory subject supports the diagnosis of Diabetes Mellitus. ADA recommended reference range Performed By: #### H S TROP, CK, CMP, CBC #### [address] Glucose [Mass/volume] in Uri ne by Test stripOrdered By: Bernardino Bhakta on 12-27-2023 Glucose Test strip (U) [Mass/Vol] Normal mg/dL Normal [facility] Hematocrit [Volume Fraction] of Blood by Automated countOrdered By: Bernardino Bhakta on 12-27-2023 Hematocrit (Bld) [Volume fraction] 44.0 % Normal 34.0-46.4 [facility] Comment on above: Performed By: #### H S TROP, CK, CMP, CBC #### [address] Hemoglobin Test strip Ql (U) Ordered By: Bernardino Bhakta on 12-27-2023 Hemoglobin Ql (U) Negative Negative [facility] Hemoglobin [Mass/volume] in BloodOrdered By: Bernardino Bhakta on 12-27-2023 Hemoglobin (Bld) [Mass/Vol] 14.5 g/dL Normal 11.8-15.4 [facility] Comment on above: Performed By: #### H S TROP, CK, CMP, CBC #### [address] INR in Platelet poor plasma by Coagulation assayOrdered By: Bernardino Bhakta on 12-27-2023 INR Coag (PPP) [Relative time] 1.0 {INR} Normal [facility] Comment on above: INR Therapeutic Rang [...] 4.5 Performed By: #### C EA #### [place] [address] [place] Ketones [Presence] in Urine by Test stripOrdered By: Bernardino Bhakta on 12-27-2023 Ketones Ql (U) Negative Normal Negative [facility] Comment on above: Order Comment: Name Collection Type:: Clean-Voided Midstream Performed By: #### O B(GUAIAC) #### [place] [address] [place] Lactate [Moles/volume] in Se rum or PlasmaOrdered By: Bernardino Bhakta on 12-27-2023 Lactate [Moles/Vol] 1.6 mmol/L Normal 0.5-2.2 [facility] Comment on above: Result Comment: PERF ORMED BY: [place] [address] PATHOLOGIST DIETICIAN JENNIFER ALANIZ M.D. Performed By: #### C EA #### [place] [address] [place] Leukocyte esterase [Presence ] in Urine by Test stripOrdered By: Bernardino Bhakta on 12-27-2023 Leukocyte esterase Test strip Ql (U) 4+ High Negative [facility] Comment on above: Order Comment: Name Collection Type:: Clean-Voided Midstream Performed By: #### O B(GUAIAC) #### [place] [address] [place] Leukocytes [#/area] in Urine sediment by Microscopy high power fieldOrdered By: Bernardino Bhakta on 12-27-2023 WBC LM.HPF (Urine sed) [#/Area] 5-9 [HPF] High 0-4 [facility] Comment on above: Microscopic results may be affected due to low specimen volume. Leukocytes [#/volume] correc pilar for nucleated erythrocytes in Blood by Automated counOrdered By: Bernardino Bhakta on 12-27-2023 WBC corrected for nucl RBC Auto (Bld) [#/Vol] 13.4 10*3/uL High 3.8-11.6 [facility] Leukocytes [#/volume] in Blo od by Automated countOrdered By: Bernardino Bhakta on 12-27-2023 WBC (Bld) [#/Vol] 13.4 10*3/uL High 3.8-11.6 [facility] Comment on above: Performed By: #### H S TROP, CK, CMP, CBC #### [facility] [address] [place] [address] [place] Lymphocytes [#/volume] in Bl ood by Automated countOrdered By: Bernardino Bhakta on 12-27-2023 Lymphocytes (Bld) [#/Vol] 3.7 10*3/uL Normal 1.00-4.8 [facility] Comment on above: Performed By: #### H S TROP, CK, CMP, CBC #### [facility] [address] [place] [address] [place] Lymphocytes/100 leukocytes i n Blood by Automated countOrdered By: Bernardino Bhakta on 12-27-2023 Lymphocytes/100 WBC (Bld) 27.4 % Normal . [facility] Comment on above: Performed By: #### H S TROP, CK, CMP, CBC #### [facility] [address] [place] [address] MCH [Entitic mass] by Automa pilar countOrdered By: Bernardino Bhakta on 12-27-2023 MCH (RBC) [Entitic mass] 28.9 pg Normal 24.7-34.3 [facility] Comment on above: Performed By: #### H S TROP, CK, CMP, CBC #### [facility] [address] [place] [address] MCHC Auto (RBC) [Mass/Vol]Or dered By: Bernardino Bhakta on 12-27-2023 MCHC (RBC) [Mass/Vol] 33.0 g/dL 32.0-35.0 [facility] MCV [Entitic volume] by Auto mated countOrdered By: Bernardino Bhakta on 12-27-2023 MCV (RBC) [Entitic vol] 87.6 fL Normal 80-100 [facility] Comment on above: Performed By: #### H S TROP, CK, CMP, CBC #### [facility] [address] Monocyte distribution width [Entitic volume] in Blood by AutomatedOrdered By: Bernardino Bhakta on 12-27-2023 Monocyte distribution width Auto (Bld) [Entitic vol] 19.53 % 0.00-20.00 [facility] Neutrophils [#/volume] in Bl ood by Automated countOrdered By: Bernardino Bhakta on 12-27-2023 Neutrophils (Bld) [#/Vol] 8.3 10*3/uL High 1.8-7.7 [facility] Comment on above: Performed By: #### H S TROP, CK, CMP, CBC #### [facility] [address] Nitrite Test strip Ql (U)Ord ered By: Bernardino Bhakta on 12-27-2023 Nitrite Ql (U) Negative Negative [facility] No Panel InformationOrdered By: Bernardino Bhakta on 12-27-2023 Arterial Blood Base Excess -2.4 mmol/L -3.0-3.0 [facility] Arterial Blood Oxygen Content 7.5 mmol/L 6.6-9.7 [facility] Arterial Blood Oxygen Saturation 95.5 % 95.0-100.0 [facility] Arterial Blood Partial Pressure CO2 46.7 mm[Hg] High 35.0-45.0 [facility] Arterial Blood Partial Pressure O2 84.0 mm[Hg] 80.0-100.0 [facility] Arterial Blood pH 7.33 Low 7.35-7.45 [facility] Blood Gas Critical Value See comment [facility] Comment on above: Critical Value andie rosenberg on: 12/27/2023 at 11:36 Blood Gas Liter Flow 3 L/min [facility] Blood Gas Sample Site Left radial Fi [facility] FiO2 32 % [facility] Oxygen Delivery Device Nasal cannula [facility] Estimated GFR (CKD-EPI) > 60.0 mL/Min [facility] Creatinine Clearance (Chem 50.59 [facility] Nucleated erythrocytes [Pres ence] in Blood by Automated countOrdered By: Bernardino Bhakta on 12-27-2023 Nucleated RBC Auto Ql (Bld) 0.1 /100{WBC} 0-0.5 [facility] Partial Thromboplastin Timeo n 12-27-2023 aPTT Coag (Bld) [Time] 24.6 s Low 25.1-36.5 Th [facility] Comment on above: Result Comment: A he matocrit value greater than 55% may lead to inaccurate results in coagulation testing. Patients having hematocrit values >55% require a special collection tube for coagulation studies. Please contact the laboratory at [phone] for redraw instructions. Performed By: #### C EA #### [facility] [address] [place] [address] [place] Platelet mean volume [Entiti c volume] in Blood by Automated countOrdered By: Bernardino Bhakta on 12-27-2023 Platelet mean volume (Bld) [Entitic vol] 8.3 fL Normal 6.3-10.7 [facility] Comment on above: Performed By: #### H S TROP, CK, CMP, CBC #### [facility] [address] [place] [address] [place] Platelets [#/volume] in Bloo d by Automated countOrdered By: Bernardino Bhakta on 12-27-2023 Platelets (Bld) [#/Vol] 399 10*3/uL Normal 150-450 [facility] Comment on above: Performed By: #### H S TROP, CK, CMP, CBC #### [facility] [address] [place] [address] [place] Potassium [Moles/volume] in Serum or PlasmaOrdered By: Brenardino Bhakta on 12-27-2023 Potassium [Moles/Vol] 3.7 mmol/L Normal 3.5-5.1 [facility] Comment on above: Performed By: #### H S TROP, CK, CMP, CBC #### [facility] [address] [place] [address] [place] Protein Test strip (U) [Mass /Vol]Ordered By: Bernardino Bhakta on 12-27-2023 Protein (U) [Mass/Vol] Negative Negative [facility] Protein [Mass/volume] in Ser um or PlasmaOrdered By: Bernardino Bhakta on 12-27-2023 Protein [Mass/Vol] 6.8 g/dL Normal 6.4-8.9 [facility] Comment on above: Performed By: #### H S TROP, CK, CMP, CBC #### [address] Prothrombin time (PT)Ordered By: Bernardino Bhakta on 12-27-2023 PT Coag (PPP) [Time] 11.5 s Normal 9.0-12.9 [facility] Comment on above: A hematocrit value g reater than 55% may lead to inaccurate results in coagulation testing. Patients having hematocrit values >55% require a special collection tube for coagulation studies. Please contact the laboratory at [phone] for redraw instructions. Result Comment: A he matocrit value greater than 55% may lead to inaccurate results in coagulation testing. Patients having hematocrit values >55% require a special collection tube for coagulation studies. Please contact the laboratory at [phone] for redraw instructions. Performed By: #### C EA #### [address] Serum globulin measurement b y calculation (mass/volume)Ordered By: Bernardino Bhakta on 12-27-2023 Globulin (S) [Mass/Vol] 2.8 g/dL Normal [facility] Comment on above: Performed By: #### H S TROP, CK, CMP, CBC #### [address] Serum or plasma albumin/glob ulin mass ratioOrdered By: Bernardino Bhakta on 12-27-2023 Albumin/Globulin [Mass ratio] 1.4 {ratio} Normal [facility] Comment on above: Performed By: #### H S TROP, CK, CMP, CBC #### [address] Serum or plasma anion gap de terminationOrdered By: Bernardino Bhakta on 12-27-2023 Anion gap [Moles/Vol] 12.8 mmol/L Normal 6.0-15.0 [facility] Comment on above: Performed By: #### H S TROP, CK, CMP, CBC #### [facility] [address] [place] [address] Sodium [Moles/volume] in Ser um or PlasmaOrdered By: Bernardino Bhakta on 12-27-2023 Sodium [Moles/Vol] 140 mmol/L Normal 136-145 [facility] Comment on above: Performed By: #### H S TROP, CK, CMP, CBC #### [address] Specific gravity Test strip (U) [Rel density]Ordered By: Bernardino Bhakta on 12-27-2023 Specific gravity (U) [Rel density] 1.043 High 1.001-1.03 0 [facility] Stool Occult Blood (Guaiac)o n 12-27-2023 Stool Occult Blood (Guaiac) Occult Blood Negative for Occult Blood by Guaiac Methodology ---- Reference range = Negative PERFORMED BY: [place] [address] PATHOLOGIST DIETICIAN JENNIFER ALANIZ M.D. Normal [facility] Comment on above: Performed By: #### O B(GUAIAC) #### [address] Troponin I High Sensitivityo n 12-27-2023 Troponin I High Sensitivity < 2.3 Normal 0.0-15.0 [facility] Comment on above: Result Comment: PERF ORMED BY: [place] [address] PATHOLOGIST DIETICIAN JENNIFER ALANIZ M.D. Performed By: #### H S TROP, CK, CMP, CBC #### [address] Troponin I.cardiac [Mass/vol ume] in Serum or Plasma by Detection limit <= 0.01 ng/Ordered By: Bernardino Bhakta on 12-27-2023 Troponin I.cardiac DL <= 0.01 ng/mL [Mass/Vol] < 2.3 pg/mL 0.0-15.0 [facility] Type and Screenon 12-27-2023 ABO and Rh group Nom (Bld) Blood group A Rh(D) positive Normal [facility] Urea nitrogen [Mass/volume] in Serum or PlasmaOrdered By: Bernardino Bhakta on 12-27-2023 Urea nitrogen [Mass/Vol] 13 mg/dL Normal 7- [facility] Comment on above: Performed By: #### H S TROP, CK, CMP, CBC #### [facility] [address] [place] [address] Urine Cultureon 12-27-2023 Bacteria identified Cx Nom (U) 50,000 colonies/ml mixed bacterial skin contaminants 2 Days PERFORMED BY: [place] [address] PATHOLOGIST DIETICIAN JENNIFER ALANIZ M.D. Normal [facility] Comment on above: Performed By: #### O B(GUAIAC) #### [facility] [address] [place] [address] Urine appearanceOrdered By: Bernardino Bhakta on 12-27-2023 Appearance (U) Cloudy Critically abnormal Clear [facility] Comment on above: Order Comment: Name Collection Type:: Clean-Voided Midstream Performed By: #### O B(GUAIAC) #### [facility] [address] [place] [address] Urine culture routineOrdered By: Bernardino Bhakta on 12-27-2023 Bacteria identified Cx Nom (U) 2 Days [facility] Urobilinogen Test strip (U) [Mass/Vol]Ordered By: Bernardino Bhakta on 12-27-2023 Urobilinogen (U) [Mass/Vol] Normal mg/dL Normal [facility] XR chest 1V portableon 12-26 XR chest 1V portable [facility] [place] [address] [place] [address] XRay Report Signed Patient: Bhupendra Rubi MR#: [id number] : 1950 Acct:[id number] Age/Sex: 73 / F ADM Date: 12/27/23 Loc: ER Room: Type: [facility] ER Attending Dr: Copies to: [...] Adam Berger M.D.12/27/2023 12:16 PM Dictation Location: [place] [address] Transcribed By: [facility] 12/27/23 1216 Dictated By: Adam Berger DO 12/27/23 1204 Signed By: 12/27/23 1216 Normal [facility] pH of Urine by Test stripOrd ered By: Bernardino Bhakta on 12-27-2023 pH (U) 6.0 [pH] Normal 5.0-9.0 [facility] Comment on above: Order Comment: Name Collection Type:: Clean-Voided Midstream Performed By: #### O B(GUAIAC) #### [facility] [address] Provider Letteron 06-23-2023 Provider Letter (Inserted Image. Es ble to display) June 23, 2023 BHUPENDRA RUBI [address] [place] [id number] : 1950 Dear Bhupendra, We are reaching out to inform you that Dr. Turner is now approved and credentialed with your insurance. Please call our office at your earliest convenience to schedule the EGD that was recommended at your last visit. Thank you for your prompt attention to this matter. Sincerely, [facility] [phone] Normal [facility] CHEMISTRYOrdered By: SYSTEM SYSTEM on 01-01-2023 Ferritin [...] 61 mL/min/1.73 m2 Normal >=59mL/min /1.73 m2 FT Chem S Globulin (S) [Mass/Vol] 3.5 g/dL [...] 9.6 E9/L High 2.0 - 7.5 E9/L FT HemeAutoSS HEMATOLOGYOrdered By: Rolly Ray on 12-24-2022 [...] 11-11-2022 BASO # 0.1 103/ul Normal 0.0-0.1 [facility] Comment on above: Performed By: #### C BC #### [facility] [address] [place] [address] [address] [address] Anisa Gomez Basophils/100 WBC (Bld) 0.5 % Normal 0.2-2.0 [facility] Comment on above: Performed By: #### C BC #### [facility] [address] [place] [address] [address] Anisa Gomez EO # 0.1 103/ul Normal 0.0-0.7 [facility] Comment on above: Performed By: #### C BC #### [facility] [address] [place] [address] Dr. Anisa Gomez Eosinophils/100 WBC (Bld) 0.8 % Critically low 0.9-7.0 [facility] Comment on above: Performed By: #### C BC #### [facility] [address] [place] [address] Dr. Anisa Gomez Erythrocyte distribution width (RBC) [Ratio] 15.2 % Critically high 11.0-15.0 [facility] Comment on above: Performed By: #### C BC #### [facility] [address] [place] [address] Dr. Anisa Gomez Hematocrit (Bld) [Volume fraction] 48.8 % Critically high 36.0-48.0 [facility] Comment on above: Performed By: #### C BC #### [facility] [address] [place] [address] Dr. Anisa Gomez Hemoglobin (Bld) [Mass/Vol] 15.8 g/dL Normal 12.0-16.0 [facility] Comment on above: Performed By: #### C BC #### [facility] [address] [place] [address] Dr. Anisa Gomez IG # 0.03 10e3/ul Normal 0.00-0.03 [facility] Comment on above: Performed By: #### C BC #### [facility] [address] [place] [address] Dr. Anisa Gomez IG % 0.2 % Normal 0.0-0.5 [facility] Comment on above: Performed By: #### C BC #### [facility] [address] [place] [address] Dr. Anisa Gomez LYMPH # 3.2 103/ul Normal 1.2-3.8 [facility] Comment on above: Performed By: #### C BC #### [facility] [address] [place] [address] Dr. Anisa Gomez Lymphocytes/100 WBC (Bld) 21.9 % Normal 20.5-60.0 [facility] Comment on above: Performed By: #### C BC #### [facility] [address] [place] [address] Dr. Anisa Gomez MANUAL DIFF REQ NO Normal [facility] Comment on above: Performed By: #### C BC #### [facility] [address] [place] [address] Dr. Anisa Gomez MCH (RBC) [Entitic mass] 29.9 pg Normal 26.7-34.0 [facility] Comment on above: Performed By: #### C BC #### [facility] [address] [place] [address] Dr. Anisa Gomez MCHC (RBC) [Mass/Vol] 32.4 g/dL Normal 29.9-35.2 [facility] Comment on above: Performed By: #### C BC #### [facility] [address] [place] [address] Dr. Anisa Gomez MCV (RBC) [Entitic vol] 92.2 fL Normal 81.0-99.0 [facility] Comment on above: Performed By: #### C BC #### [facility] [address] [place] [address] Dr. Anisa Gomez MONO # 1.2 103/ul Critically high 0.3-0.8 [facility] Comment on above: Performed By: #### C BC #### [facility] [address] [place] [address] Dr. Anisa Gomez Monocytes/100 WBC (Bld) 8.0 % Normal 1.7-12.0 [facility] Comment on above: Performed By: #### C BC #### [facility] [address] [place] [address] Dr. Anisa Gomez NEUT # 9.9 103/ul Critically high 1.4-6.5 [facility] Comment on above: Performed By: #### C BC #### [facility] [address] [place] [address] Dr. Anisa Gomez Neutrophils/100 WBC (Bld) 68.6 % Normal 43.0-75.0 [facility] Comment on above: Performed By: #### C BC #### [facility] [address] [place] [address] Dr. Anisa Gomez Platelet mean volume (Bld) [Entitic vol] 10.6 fL Normal 9.5-13.5 [facility] Comment on above: Performed By: #### C BC #### [facility] [address] [place] [address] Dr. Anisa Gomez PLT 336 103/ul Normal 150-450 [facility] Comment on above: Performed By: #### C BC #### [facility] [address] [place] [address] Dr. Anisa Gomez RBC 5.29 106/ul Normal 4.20-5.40 [facility] Comment on above: Performed By: #### C BC #### [facility] [address] [place] [address] Dr. Anisa Gomez WBC 14.4 103/ul Critically high 4.0-11.0 [facility] Comment on above: Performed By: #### C BC #### [facility] [address] [place] [address] Dr. Anisa Gomez CTA ABD/PELVIS WO W [...] by: LAYNE HO Date: 2022-11-11 18:26 Normal [facility] CTA CHEST W CONon 023 CTA CHEST W CON EXAMINATION: CTA PHYLLIS ST WO [...] Trace pericardial effusion Electronically authenticated by: ANDRES HALLU Date: 2022-11-11 17:48 Normal [facility] ER URINE PROFILEon 3 Bilirubin Ql (U) Negative Normal NEGATIVE [facility] Comment on above: Performed By: #### E RUR ####[facility] [address] [place], [place] [address]Dr. Anisa Gomez Clarity (U) CLEAR Normal CLEAR [facility] Comment on above: Performed By: #### E RUR ####[facility] [address] [place], [place] [address]Dr. Cherrylan Gomez Color (U) LT. YELLOW Normal YELLOW [facility] Comment on above: Performed By: #### E RUR ####[facility] [address] [place], [place] [address]Dr. Anisa Gomez ERUAHD A micrscopic examina tion will be performed if indicated. Normal [facility] Comment on above: Performed By: #### E RUR ####[facility] [address] [place], [place] [address]Dr. Cherrylan Gomez Glucose Ql (U) Negative Normal NEGATIVE [facility] Comment on above: Performed By: #### E RUR ####[facility] [address] [place], [place] [address]Dr. Cherrylan Gomez Hemoglobin Ql (U) Negative Normal NEGATIVE [facility] Comment on above: Performed By: #### E RUR ####[facility] [address] [place], [place] [address]Dr. Cherrylan Gomez Ketones Ql (U) Negative Normal NEGATIVE [facility] Comment on above: Performed By: #### E RUR ####[facility] [address] [place], [place] [address]Dr. Cherrylan Gomez LEUKOCYTES Negative Normal NEGATIVE [facility] Comment on above: Performed By: #### E RUR ####[facility] [address] [place], [place] [id number]. Anisa Gomez Nitrite Ql (U) Negative Normal NEGATIVE [facility] Comment on above: Performed By: #### E RUR ####[facility] [address] [place] [address]Dr. Anisa Gomez pH (U) 5.5 [pH] Normal 5-9 [facility] Comment on above: Performed By: #### E RUR ####[facility] [address] [place] [address]DrCathy Gomez SPEC GRAVITY >=1.030 Abnormal 1.005-<=1. 025 [facility] Comment on above: Performed By: #### E RUR ####[facility] [address] [place], [place] [address]Dr. Anisa Gomez UA PROTEIN Negative Normal NEGATIVE/ TRACE [facility] Comment on above: Performed By: #### E RUR ####[facility] [address] [place], [place] [address]DrCathy Gomez UR MICRO IND NOT INDICATED Normal [facility] Comment on above: Performed By: #### E RUR ####[facility] [address] [place], [place] [address]DrCathy Gomez Urobilinogen Qn (U) 0.2 {Agustin'U}/dL Normal 0.2 - 1. 0 [facility] Comment on above: Performed By: #### E RUR ####[facility] [address] [place], [place] [address]DrCathy Gomez LIPASEon 11-11-2022 Lipase [Catalytic activity/Vol] 100.0 U/L Normal 73.0-393.0 [facility] Comment on above: Performed By: #### JANET BOOTH #### [facility] [address] [place] [address] Dr. Anisa Gomez LIVER PROFILEon 11-11-2022 Albumin [Mass/Vol] 3.8 g/dL Normal 3.4-5.0 [facility] Comment on above: Performed By: #### JANET BOOTH #### [facility] [address] [place] [address] Dr. Anisa Gomez Albumin/Globulin [Mass ratio] 0.9 {ratio} Normal [facility] Comment on above: Performed By: #### L YAMILE LIPA #### [facility] [address] [place] [address] Dr. Anisa Gomez ALP [Catalytic activity/Vol] 107 U/L Normal 46-116 [facility] Comment on above: Performed By: #### L YAMILE LIPA #### [facility] [address] [place] [address] Dr. Anisa Gomez ALT [Catalytic activity/Vol] 25 U/L Normal 14-59 [facility] Comment on above: Performed By: #### L YAMILE LIPA #### [facility] [address] [place] [address] Dr. Anisa Gomez AST [Catalytic activity/Vol] 25 U/L Normal 15-37 [facility] Comment on above: Performed By: #### L YAMILE LIPA #### [facility] [address] [place] [address] Dr. Anisa Gomez BILI, CONJUGATED 0.1 mg/dL Normal 0.0-0.2 [facility] Comment on above: Performed By: #### Debbi OVALLE LIPA #### [facility] [address] [place] [address] Dr. Anisa Gomez Bilirubin [Mass/Vol] 0.5 mg/dL Normal 0.2-1.0 [facility] Comment on above: Performed By: #### L YAMILE LIPA #### [facility] [address] [place] [address] Dr. Anisa Gomez Globulin (S) [Mass/Vol] 4.0 g/dL Normal T [facility] Comment on above: Performed By: #### L YAMILE LIPA #### [facility] [address] [place] [address] Dr. Anisa Gomez Protein [Mass/Vol] 7.8 g/dL Normal 6.4-8.2 [facility] Comment on above: Performed By: #### L IVER, LIPA #### [facility] [address] [place] [address] [address] Anisa Gomez PROF CHEM 8 (BAS METB)on Anion gap [Moles/Vol] 13.2 mmol/L Normal [facility] Comment on above: Performed By: #### B MP #### [facility] [address] [place] [address] [address] Anisa Gomez Calcium [Mass/Vol] 9.4 mg/dL Normal 8.5-10.1 [facility] Comment on above: Performed By: #### B MP #### [facility] [address] [place] [address] [address] Anisa Gomez Chloride [Moles/Vol] 103 mmol/L Normal 98-107 [facility] Comment on above: Performed By: #### B MP #### [facility] [address] [place] [address] Dr. Anisa Gomez CO2 [Moles/Vol] 29.3 mmol/L Normal 21.0-32.0 [facility] Comment on above: Performed By: #### B MP #### [facility] [address] [address] [address] Anisa Gomez Creatinine [Mass/Vol] 1.02 mg/dL Normal 0.55-1.02 [facility] Comment on above: Performed By: #### B MP #### [facility] [address] [address] [address] Anisa Gomez EGFR-AF BHUTANESE 60 mL/min/1.73m2 Normal >=60 [facility] Comment on above: Performed By: #### B MP #### [facility] [address] [address] [address] Anisa Gomez EGFR-NON AF BHUTANESE 54 mL/min/1.73m2 Critically low >=60 [facility] Comment on above: Performed By: #### B MP #### [facility] [address] [address] [address] Anisa Gomez Glucose [Mass/Vol] 102 mg/dL Normal 74-106 [facility] Comment on above: Performed By: #### B MP #### [facility] [address] [place], [place] [address] Dr. Anisa Gomez Potassium [Moles/Vol] 4.5 mmol/L Normal 3.5-5.1 [facility] Comment on above: Performed By: #### B MP #### [facility] [address] [place], [place] [address] Dr. Anisa Gomez Sodium [Moles/Vol] 141 mmol/L Normal 136-145 [facility] Comment on above: Performed By: #### B MP #### [facility] [address] [place], [place] [address] Dr. Anisa Gomez Urea nitrogen [Mass/Vol] 16.0 mg/dL Normal 7.0-18.0 [facility] Comment on above: Performed By: #### B MP #### [facility] [address] [address] [address] Anisa Gomez Urea nitrogen/Creatinine [Mass ratio] 15.7 mg/mg Normal [facility] Comment on above: Performed By: #### B MP #### [facility] [address] [place], [place] [address] CHEST WO CONon [...] is recommended for better evaluation. Normal [facility] HEMOGLOBINon 10-27-2022 Hemoglobin (Bld) [Mass/Vol] 14.5 g/dL Normal 12.0-16.0 [facility] Comment on above: Performed By: #### H GB ####[facility] [id number] [address] Anisa Gomez CT LUNG CANCER SCREENINGon 0 [...] ROMEL ALONZO Date: 2022-07-24 17:20 Normal [facility] MAMM SCREEN 3D BRISSA CADon 07-09-2022 MG MAMM SCREEN 3D BRISSA CAD Patient: BHUPENDRA RUBI Exam Date: 07/09/2022 : 1950 Gender:F Ordering : SHAIKH Eddie HORAN . Admission #: [id number] Family : Order #: [id number] CLICK HERE TO VIEW EXAM RADIOLOGY REPORT [...] Treatments None Family Cancers None LOCATION: [facility] BREAST COMPOSITION: Heterogeneously dense,which may obscure small [...] M.D. on 07/25/2022 at 08:51 Normal [facility] CBC AUTO DIFFon 05-07-2022 BASO # 0.1 103/ul Normal 0.0-0.1 [facility] Comment on above: Performed By: #### C BC #### [facility] [address] [address] [address] Anisa Gomez Basophils/100 WBC (Bld) 0.7 % Normal 0.2-2.0 [facility] Comment on above: Performed By: #### C BC #### [facility] [address] [address] [address] Anisa Gomez EO # 0.1 103/ul Normal 0.0-0.7 [facility] Comment on above: Performed By: #### C BC #### [facility] [address] [place] [address] Dr. Anisa Gomez Eosinophils/100 WBC (Bld) 0.6 % Critically low 0.9-7.0 [facility] Comment on above: Performed By: #### C BC #### [facility] [address] [place] [address] Dr. Anisa Gomez Erythrocyte distribution width (RBC) [Ratio] 14.9 % Normal 11.0-15.0 [facility] Comment on above: Performed By: #### C BC #### [facility] [address] [place] [address] Dr. Anisa Gomez Hematocrit (Bld) [Volume fraction] 48.4 % Critically high 36.0-48.0 [facility] Comment on above: Performed By: #### C BC #### [facility] [address] [place] [address] Dr. Anisa Gomez Hemoglobin (Bld) [Mass/Vol] 15.6 g/dL Normal 12.0-16.0 [facility] Comment on above: Performed By: #### C BC #### [facility] [address] [place] [address] Dr. Anisa Gomez IG # 0.02 10e3/ul Normal 0.00-0.03 [facility] Comment on above: Performed By: #### C BC #### [facility] [address] [place] [address] Dr. Anisa Gomez IG % 0.2 % Normal 0.0-0.5 [facility] Comment on above: Performed By: #### C BC #### [facility] [address] [place] [address] Dr. Anisa Gomez LYMPH # 2.9 103/ul Normal 1.2-3.8 [facility] Comment on above: Performed By: #### C BC #### [facility] [address] [place] [address] Dr. Anisa Gomez Lymphocytes/100 WBC (Bld) 28.6 % Normal 20.5-60.0 [facility] Comment on above: Performed By: #### C BC #### [facility] [address] [place] [address] Dr. Anisa Gomez MANUAL DIFF REQ NO Normal [facility] Comment on above: Performed By: #### C BC #### [facility] [address] [place] [address] Dr. Anisa Gomez MCH (RBC) [Entitic mass] 29.2 pg Normal 26.7-34.0 [facility] Comment on above: Performed By: #### C BC #### [facility] [address] [place] [address] Dr. Anisa Gomez MCHC (RBC) [Mass/Vol] 32.2 g/dL Normal 29.9-35.2 [facility] Comment on above: Performed By: #### C BC #### [facility] [address] [place] [address] Dr. Anisa Gomez MCV (RBC) [Entitic vol] 90.5 fL Normal 81.0-99.0 [facility] Comment on above: Performed By: #### C BC #### [facility] [address] [place] [address] Dr. Anisa Gomez MONO # 1.0 103/ul Critically high 0.3-0.8 [facility] Comment on above: Performed By: #### C BC #### [facility] [address] [place] [address] Dr. Anisa Gomez Monocytes/100 WBC (Bld) 9.5 % Normal 1.7-12.0 [facility] Comment on above: Performed By: #### C BC #### [facility] [address] [address] [address] Anisa Gomez NEUT # 6.2 103/ul Normal 1.4-6.5 [facility] Comment on above: Performed By: #### C BC #### [facility] [address] [address] [address] Anisa Gomez Neutrophils/100 WBC (Bld) 60.4 % Normal 43.0-75.0 [facility] Comment on above: Performed By: #### C BC #### [facility] [address] [address] [address] Anisa Gomez Platelet mean volume (Bld) [Entitic vol] 10.1 fL Normal 9.5-13.5 [facility] Comment on above: Performed By: #### C BC #### [facility] [address] [place] [address] Dr. Anisa Gomez PLT 403 103/ul Normal 150-450 [facility] Comment on above: Performed By: #### C BC #### [facility] [address] [address] [address] Anisa Gomez RBC 5.35 106/ul Normal 4.20-5.40 [facility] Comment on above: Performed By: #### C BC #### [facility] [address] [address] [address] Anisa Gomez WBC 10.2 103/ul Normal 4.0-11.0 [facility] Comment on above: Performed By: #### C BC #### [facility] [address] [address] [address] Anisa Gomez LIPID PROFILEon 05-07-2022 CHOL-HDL RATIO NORM SEE BELOW Normal [facility] Comment on above: Result Comment: 3.3 - 4.4 LOW RISK 4.4 - 7.1 AVERAGE RISK 7.1 - 11.0 MODERATE RISK >11.0 HIGH RISK Performed By: #### L IPID, CMP ####[facility] [id number] [address]Dr. Anisa Gomez Cholesterol [Mass/Vol] 242 mg/dL Critically high <=200 [facility] Comment on above: Performed By: #### L IPID, CMP ####[facility] [id number] [id number]. Cherryann Jason Cholesterol in HDL [Mass/Vol] 49 mg/dL Normal 40-60 [facility] Comment on above: Performed By: #### L IPID, CMP ####[facility] [id number] [id number]. Anisa Gomez Cholesterol in LDL [Mass/Vol] 148.4 mg/dL Normal [facility] Comment on above: Performed By: #### L IPID, CMP ####[facility] [address] [id number]. Anisa Gomez Cholesterol.total/Choles terol in HDL [Mass ratio] 4.9 {ratio} Normal [facility] Comment on above: Performed By: #### L IPID, CMP ####[facility] [address] [address]Dr. Anisa Gomez HDL NORMAL > or = 60 mg/dl - LO W CARDIOVASCULAR RISK <40 mg/dl - HIGH CARDIOVASCULAR RISK Normal [facility] Comment on above: Performed By: #### L IPID, CMP ####[facility] [address] [id number]. Anisa Gomez LDL CALC NORMAL SEE BELOW Normal [facility] Comment on above: Result Comment: <100 mg/dl OPTIMAL 100 - 129 mg/dl NEAR OR ABOVE OPTIMAL 130 - 159 mg/dl BORDERLINE HIGH 160 - 189 mg/dl HIGH >190 mg/dl VERY HIGH Performed By: #### L IPID, CMP ####[facility] [id number] [id number]. Anisa Gomez Triglyceride [Mass/Vol] 223 mg/dL Critically high <=150 [facility] Comment on above: Performed By: #### L IPID, CMP ####[facility] [address] [id number]. Anisa Gomez VLDL CALC 44.6 mg/dL Normal [facility] Comment on above: Performed By: #### L IPID, CMP ####[facility] [id number] [address]Dr. Anisa Gomez PROF 14(COMP METB)on 022 Albumin [Mass/Vol] 3.6 g/dL Normal 3.4-5.0 [facility] Comment on above: Performed By: #### L IPID, CMP ####[facility] [address] [address]Dr. Anisa Gomez Albumin/Globulin [Mass ratio] 1.0 {ratio} Normal [facility] Comment on above: Performed By: #### L IPID, CMP ####[facility] [address] [address]Dr. Anisa Gomez ALP [Catalytic activity/Vol] 95 U/L Normal 46-116 [facility] Comment on above: Performed By: #### L IPID, CMP ####[facility] [address] [address]Dr. Anisa Gomez ALT [Catalytic activity/Vol] 21 U/L Normal 14-59 [facility] Comment on above: Performed By: #### L IPID, CMP ####[facility] [address] [address]Dr. Anisa Gomez Anion gap [Moles/Vol] 6.3 mmol/L Normal [facility] Comment on above: Performed By: #### L IPID, CMP ####[facility] [address] [address]Dr. Anisa Gomez AST [Catalytic activity/Vol] 15 U/L Normal 15-37 [facility] Comment on above: Performed By: #### L IPID, CMP ####[facility] [address] [address]Dr. Anisa Gomez Bilirubin [Mass/Vol] 0.5 mg/dL Normal 0.2-1.0 [facility] Comment on above: Performed By: #### L IPID, CMP ####[facility] [address] [address]Dr. Anisa Gomez Calcium [Mass/Vol] 9.1 mg/dL Normal 8.5-10.1 [facility] Comment on above: Performed By: #### L IPID, CMP ####[facility] [address] [address]Dr. Anisa Gomez Chloride [Moles/Vol] 104 mmol/L Normal 98-107 [facility] Comment on above: Performed By: #### L IPID, CMP ####[facility] [address] [address]Dr. Anisa Gomez CO2 [Moles/Vol] 33.4 mmol/L Critically high 21.0-32.0 [facility] Comment on above: Performed By: #### L IPID, CMP ####[facility] [address] [place], [place] [address]Dr. Anisa Gomez Creatinine [Mass/Vol] 0.90 mg/dL Normal 0.55-1.02 [facility] Comment on above: Performed By: #### L IPID, CMP ####[facility] [address] [place], [place] [address]Dr. Anisa Gomez EGFR-AF BHUTANESE >60 Normal >=60 [facility] Comment on above: Performed By: #### L IPID, CMP ####[facility] [address] [place], [place] [address]Dr. Anisa Gomez EGFR-NON AF BHUTANESE >60 Normal >=60 [facility] Comment on above: Performed By: #### L IPID, CMP ####[facility] [address] [place], [place] [address]Dr. Anisa Gomez Globulin (S) [Mass/Vol] 3.7 g/dL Normal T [facility] Comment on above: Performed By: #### L IPID, CMP ####[facility] [address] [address]Dr. Anisa Gomez Glucose [Mass/Vol] 67 mg/dL Critically low 74-106 [facility] Comment on above: Performed By: #### L IPID, CMP ####[facility] [address] [place], [place] [address]Dr. Anisa Gomez Potassium [Moles/Vol] 3.7 mmol/L Normal 3.5-5.1 [facility] Comment on above: Performed By: #### L IPID, CMP ####[facility] [address] [address]Dr. Anisa Gomez Protein [Mass/Vol] 7.3 g/dL Normal 6.4-8.2 [facility] Comment on above: Performed By: #### L IPID, CMP ####[facility] [address] [place], [place] [address]Dr. Anisa Gomez Sodium [Moles/Vol] 140 mmol/L Normal 136-145 [facility] Comment on above: Performed By: #### L IPID, CMP ####[facility] [address] [place], [place] [address]Dr. Anisa Gomez Urea nitrogen [Mass/Vol] 13.0 mg/dL Normal 7.0-18.0 [facility] Comment on above: Performed By: #### L IPID, CMP ####[facility] [address] [place], [place] [address]Dr. Anisa Gomez Urea nitrogen/Creatinine [Mass ratio] 14.4 mg/mg Normal [facility] Comment on above: Performed By: #### L IPID, CMP ####[facility] [address] [place], [place] [address]DrCathy Gomez UA RANDOM W/MICROSCOPICon BACTERIA NONE SEEN Normal NONE SEEN [facility] Comment on above: Performed By: #### U AMIC #### [facility] [address] [place] [address] Dr. Anisa Gomez Bilirubin Ql (U) Negative Normal NEGATIVE [facility] Comment on above: Performed By: #### U AMIC #### [facility] [address] [place] [address] Dr. Anisa Gomez CAST NONE SEEN Normal NONE SEEN [facility] Comment on above: Performed By: #### U AMIC #### [facility] [address] [place] [address] Dr. Anisa Gomez Clarity (U) CLEAR Normal CLEAR [facility] Comment on above: Performed By: #### U AMIC #### [facility] [address] [address] [address] Anisa Gomez Color (U) YELLOW Normal YELLOW [facility] Comment on above: Performed By: #### U AMIC #### [facility] [address] [place] [address] Dr. Anisa Gomez Crystals LM Nom (Urine sed) NONE SEEN Normal NONE SEEN [facility] Comment on above: Performed By: #### U AMIC #### [facility] [address] [place] [address] Dr. Anisa Gomez Epithelial cells LM Ql (Urine sed) RARE Normal NONE SEEN /RARE [facility] Comment on above: Performed By: #### U AMIC #### [facility] [address] [place] [address] Dr. Anisa Gomez Glucose Ql (U) Negative Normal NEGATIVE [facility] Comment on above: Performed By: #### U AMIC #### [facility] [address] [place] [address] Dr. Anisa Gomez Hemoglobin Ql (U) Negative Normal NEGATIVE [facility] Comment on above: Performed By: #### U AMIC #### [facility] [address] [place] [address] Dr. Anisa Gomez Ketones Ql (U) Negative Normal NEGATIVE [facility] Comment on above: Performed By: #### U AMIC #### [facility] [address] [place] [address] Dr. Anisa Gomez LEUKOCYTES Negative Normal NEGATIVE [facility] Comment on above: Performed By: #### U AMIC #### [facility] [address] [place] [address] Dr. Anisa Gomez MUCOUS NONE SEEN Normal NONE SEEN [facility] Comment on above: Performed By: #### U AMIC #### [facility] [address] [place] [address] Dr. Anisa Gomez Nitrite Ql (U) Negative Normal NEGATIVE [facility] Comment on above: Performed By: #### U AMIC #### [facility] [address] [place] [address] Dr. Anisa Gomez pH (U) 7.0 [pH] Normal 5-9 [facility] Comment on above: Performed By: #### U AMIC #### [facility] [address] [address] [address] Anisa Gomez RBC 0-2 Normal 0-2 [facility] Comment on above: Performed By: #### U AMIC #### [facility] [address] [address] [address] Anisa Gomez SPEC GRAVITY 1.010 Normal 1.005-<=1. 025 [facility] Comment on above: Performed By: #### U AMIC #### [facility] [address] [address] [address] Anisa Gomez UA PROTEIN Negative Normal NEGATIVE/ TRACE [facility] Comment on above: Performed By: #### U AMIC #### [facility] [address] [place] [address] Dr. Anisa Gomez Urobilinogen Qn (U) 0.2 {Agustin'U}/dL Normal 0.2 - 1. 0 [facility] Comment on above: Performed By: #### U AMIC #### [facility] [address] [address] [address] Anisa Gomez WBC 0-2 Abnormal NONE SEEN [facility] Comment on above: Performed By: #### U AMIC #### [facility] [address] [place] [address] Dr. Anisa Gomez Vital Signs Date Time Vital Sign Value Performing Clinician Facility 09-26-2024 10: Body height 157.5 cm [employer] Work Phone: [facility] 09-26-2024 10: Body mass index (BMI) [Ratio] 27.44 kg/m2 [employer] Work Phone: [facility] 09-26-2024 10: Body weight 68.04 kg [employer] Work Phone: [facility] 09-26-2024 10: Diastolic blood pressure 84 mm[Hg] Kianna Lowe PA Work Phone: [facility] 09-26-2024 10:21-0400 Systolic blood pressure 138 mm[Hg] Kianna Abel ORDOÑEZ Work Phone: [facility] 08-02-2024 11:57-0500 Body height 157.5 cm Romel Sampson MD Work Phone: [facility] 08-02-2024 11:57-0500 Body mass index (BMI) [Ratio] 27.8 kg/m2 Romel Sampson MD Work Phone: [facility] 08-02-2024 11:57-0500 Body weight 68.95 kg Romel Sampson MD Work Phone: [facility] 08-02-2024 11:57-0500 Diastolic blood pressure 84 mm[Hg] Romel Sampson MD Work Phone: [facility] 08-02-2024 11:57-0500 Systolic blood pressure 118 mm[Hg] Romel Sampson MD Work Phone: [facility] 08-02-2024 10:51-0500 Body height 157.5 cm Chris Singh [employer] Work Phone: [facility] 08-02-2024 10:51-0500 Body mass index (BMI) [Ratio] 28.53 kg/m2 Chris Singh [employer] Work Phone: [facility] 08-02-2024 10:51-0500 Body temperature 97.11 [degF] Chris Singh [employer] Work Phone: [facility] 08-02-2024 10:51-0500 Body weight 70.76 kg Chris Singh [employer] Work Phone: [facility] 08-02-2024 10:51-0500 Diastolic blood pressure 76 mm[Hg] Chris Singh [employer] Work Phone: [facility] 08-02-2024 10:51-0500 Heart rate 107 /min Chris Singh [employer] Work Phone: [facility] 08-02-2024 10:51-0500 Respiratory rate 16 /min Chris Garciatrick [employer] Work Phone: [facility] 08-02-2024 10:51-0500 SaO2% (BldA) [Mass fraction] 95 % Chris Buchananpatrick [employer] Work Phone: [facility] 08-02-2024 10:51-0500 Systolic blood pressure 128 mm[Hg] Chris Garciatrick [employer] Work Phone: [facility] 07-28-2024 14:17-0500 Body height 159.51 cm Shaikh Aung FARFAN Work Phone: [facility] 07-28-2024 14:17-0500 Body mass index (BMI) [Ratio] 27.2 kg/m2 Shaikh Aung FARFAN Work Phone: [facility] 07-28-2024 14:17-0500 Body temperature 97.1 [degF] Shaikh Aung FARFAN Work Phone: [facility] 07-28-2024 14:17-0500 Body weight 69.39 kg Shaikh Aung FARFAN Work Phone: [facility] 07-28-2024 14:17-0500 Diastolic blood pressure 83 mm[Hg] Shaikh Aung FARFAN Work Phone: [facility] 07-28-2024 14:17-0500 Heart rate 97 /min Shaikh Aung FARFAN Work Phone: [facility] 07-28-2024 14:17-0500 Respiratory rate 18 /min Shaikh Aung FARFAN Work Phone: [facility] 07-28-2024 14:17-0500 SaO2% (BldA) [Mass fraction] 93 % Shaikh Aung FARFAN Work Phone: [facility] 07-28-2024 14:17-0500 Systolic blood pressure 143 mm[Hg] Shaikh Aung FARFAN Work Phone: [facility] 05-23-2024 10:17-0500 Body height 157.5 cm Chris Singh [employer] Work Phone: [facility] 05-23-2024 10:17-0500 Body mass index (BMI) [Ratio] 28.9 kg/m2 Chris Singh [employer] Work Phone: [facility] 05-23-2024 10:17-0500 Body temperature 96.8 [degF] Chris Singh [employer] Work Phone: [facility] 05-23-2024 10:17-0500 Body weight 71.67 kg Chris Singh [employer] Work Phone: [facility] 05-23-2024 10:17-0500 Diastolic blood pressure 84 mm[Hg] Chris Singh [employer] Work Phone: [facility] 05-23-2024 10:17-0500 Heart rate 78 /min Chris Singh [employer] Work Phone: [facility] 05-23-2024 10:17-0500 Respiratory rate 16 /min Chris Singh [employer] Work Phone: [facility] 05-23-2024 10:17-0500 SaO2% (BldA) [Mass fraction] 90 % Chris Singh [employer] Work Phone: [facility] 05-23-2024 10:17-0500 Systolic blood pressure 128 mm[Hg] Chris Singh [employer] Work Phone: [facility] 05-11-2024 14:25-0400 Body height 157.48 cm MD Shaikh Horan Work Phone: [facility] 05-11-2024 14:25-0400 Body mass index (BMI) [Ratio] 28.5 kg/m2 MD Shaikh Horan Work Phone: [facility] 05-11-2024 14:25-0400 Body temperature 97.8 [degF] MD Shaikh Horan Work Phone: [facility] 05-11-2024 14:25-0400 Body weight 70.76 kg MD Shaikh Horan Work Phone: [facility] 05-11-2024 14:25-0400 Diastolic blood pressure 78 mm[Hg] MD Shaikh Horan Work Phone: [facility] 05-11-2024 14:25-0400 Heart rate 89 /min MD Shaikh Horan Work Phone: [facility] 05-11-2024 14:25-0400 Respiratory rate 16 /min MD Shaikh Horan Work Phone: [facility] 05-11-2024 14:25-0400 SaO2% (BldA) [Mass fraction] 95 % MD Shaikh Horan Work Phone: [facility] 05-11-2024 14:25-0400 Systolic blood pressure 134 mm[Hg] MD Shaikh Horan Work Phone: [facility] 05-10-2024 14:01-0400 Body height 157.5 cm Javier Jpryan MELGAR Work Phone: [facility] 05-10-2024 14:01-0400 Body mass index (BMI) [Ratio] 27.62 kg/m2 Javier Villanueva DO Work Phone: [facility] 05-10-2024 14:01-0400 Body weight 68.49 kg Javier Villanueva DO Work Phone: [facility] 05-10-2024 14:01-0400 Diastolic blood pressure 90 mm[Hg] Javier Villanueva DO Work Phone: [facility] 05-10-2024 14:01-0400 Systolic blood pressure 130 mm[Hg] Javier Villanueva DO Work Phone: [facility] 03-25-2024 11:45-0400 Diastolic blood pressure 90 mm[Hg] MD Shaikh Horan Work Phone: [facility] 03-25-2024 11:45-0400 Heart rate 85 /min MD Shaikh Horan Work Phone: [facility] 03-25-2024 11:45-0400 Respiratory rate 20 /min MD Shaikh Horan Work Phone: [facility] 03-25-2024 11:45-0400 SaO2% (BldA) [Mass fraction] 95 % MD Shaikh Horan Work Phone: [facility] 03-25-2024 11:45-0400 Systolic blood pressure 152 mm[Hg] MD Shaikh Horan Work Phone: [facility] 03-25-2024 10:06-0400 Body height 157.48 cm MD Shaikh Horan Work Phone: [facility] 03-25-2024 10:06-0400 Body weight 65.77 kg MD Shaikh Horan Work Phone: [facility] 03-24-2024 11:14-0400 Body height 157.5 cm Chris Singh [employer] Work Phone: [facility] 03-24-2024 11:14-0400 Body mass index (BMI) [Ratio] 27.25 kg/m2 Chris Singh [employer] Work Phone: [facility] 03-24-2024 11:14-0400 Body temperature 98.91 [degF] Chris Singh [employer] Work Phone: [facility] 03-24-2024 11:14-0400 Body weight 67.59 kg Chris Singh [employer] Work Phone: [facility] 03-24-2024 11:14-0400 Diastolic blood pressure 80 mm[Hg] Chris Singh [employer] Work Phone: [facility] 03-24-2024 11:14-0400 Heart rate 96 /min Chris Singh [employer] Work Phone: [facility] Comment on above: 93% O2 03-24-2024 11:14-0400 Systolic blood pressure 116 mm[Hg] Chris Singh STRUCTURAL RIGGER Work Phone: [facility] 12-30-2023 09:35-0400 Body height 157.48 cm MD Shaikh Horan Work Phone: [facility] 12-30-2023 09:35-0400 Body mass index (BMI) [Ratio] 27.4 kg/m2 MD Shaikh Horan Work Phone: [facility] 12-30-2023 09:35-0400 Body temperature 97.3 [degF] MD Shaikh Horan Work Phone: [facility] 12-30-2023 09:35-0400 Body weight 68.03 kg MD Shaikh Horan Work Phone: [facility] 12-30-2023 09:35-0400 Diastolic blood pressure 50 mm[Hg] MD Shaikh Horan Work Phone: [facility] 12-30-2023 09:35-0400 Heart rate 106 /min MD Shaikh Horan Work Phone: [facility] 12-30-2023 09:35-0400 Respiratory rate 18 /min MD Shaikh Horan Work Phone: [facility] 12-30-2023 09:35-0400 SaO2% (BldA) [Mass fraction] 85 % MD Shaikh Horan Work Phone: [facility] 12-30-2023 09:35-0400 Systolic blood pressure 76 mm[Hg] MD Shaikh Horan Work Phone: [facility] 12-27-2023 15:46-0400 Diastolic blood pressure 57 mm[Hg] MD Shaikh Horan Work Phone: [facility] 12-27-2023 15:46-0400 Heart rate 65 /min MD Shaikh Horan Work Phone: [facility] 12-27-2023 15:46-0400 Respiratory rate 20 /min MD Shaikh Horan Work Phone: [facility] 12-27-2023 15:46-0400 Systolic blood pressure 112 mm[Hg] MD Shaikh Horan Work Phone: [facility] 12-27-2023 14:59-0400 Inhaled oxygen flow rate 2 L/min MD Shaikh Horan Work Phone: [facility] 12-27-2023 14:59-0400 SaO2% (BldA) [Mass fraction] 92 % MD Shaikh Horan Work Phone: [facility] 12-27-2023 11:20-0400 Body temperature 97.7 [degF] MD Shaikh Horan Work Phone: [facility] 12-27-2023 10:48-0400 Body height 157.48 cm MD Shaikh Horan Work Phone: [facility] 12-27-2023 10:48-0400 Body weight 70.8 kg MD Shaikh Horan Work Phone: [facility] 03-25-2023 10:00-0400 Body height 157.48 cm Nigel Valladares Other [employer] Other 03-25-2023 10:00-0400 Body mass index (BMI) [Ratio] 27.43 kg/m2 Nigel Valladares Other [employer] Other 03-25-2023 10:00-0400 Body temperature 97.2 [degF] Nigel Valladares Other [employer] Other 03-25-2023 10:00-0400 Body weight 68.04 kg Nigel Valladares Other [employer] Other 03-25-2023 10:00-0400 Diastolic blood pressure 82 mm[Hg] Nigel Valladares Other [employer] Other 03-25-2023 10:00-0400 SaO2% (BldA) [Mass fraction] 91 % Nigel Valladares Other [employer] Other 03-25-2023 10:00-0400 Systolic blood pressure 158 mm[Hg] Nigel Valladares Other [employer] Other 02-09-2023 11:00-0400 Body height 157.48 cm Cherelle Bautista Other [employer] Other 02-09-2023 11:00-0400 Body mass index (BMI) [Ratio] 27.43 kg/m2 Cherelle Bautista Other [employer] Other 02-09-2023 11:00-0400 Body temperature 97.6 [degF] Cherelle Bautista Other [employer] Other 02-09-2023 11:00-0400 Body weight 68.04 kg Cherelle Bautista Other [employer] Other 02-09-2023 11:00-0400 Diastolic blood pressure 74 mm[Hg] Cherelle Bautista Other [employer] Other 02-09-2023 11:00-0400 SaO2% (BldA) [Mass fraction] 92 % Cherelle Bautista Other [employer] Other 02-09-2023 11:00-0400 Systolic blood pressure 122 mm[Hg] Cherelle Bautista Other [employer] Other 12-24-2022 10:00-0400 Diastolic blood pressure 86 mm[Hg] Brigette Martini [facility] 12-24-2022 10:00-0400 Mean blood pressure 106 mm[Hg] Brigette Esparzametz [facility] 12-24-2022 10:00-0400 Systolic blood pressure 146 mm[Hg] Brigette Esparzametz [facility] 12-24-2022 09:57-0400 Blood Pressure Location Brigetteenrique EsparzaLianet [facility] 12-24-2022 09:57-0400 Body temperature 97.52 [degF] Brigette Esparzametz [facility] 12-24-2022 09:57-0400 Diastolic blood pressure 82 mm[Hg] Brigette Esparzametz [facility] 12-24-2022 09:57-0400 Heart rate 86 /min Brigette Martini [facility] 12-24-2022 09:57-0400 Systolic blood pressure 150 mm[Hg] Brigette Martini [facility] Encounters Encounter Date Encounter Type Care Provider Facility Start: 09-26-2024 End: 09-26-2024 Bamboo flowsheet Kianna Lowe PA Work Phone: [facility] Start: 09-26-2024 End: 09-26-2024 Bamboo flowsheet Kianna Lowe PA Work Phone: [facility] Start: 09-26-2024 End: 09-26-2024 Office outpatient visit 25 minutes Kianna Lowe PA Work Phone: [facility] Comment on above: Alteration of awaren ess (Primary Dx); History of stroke Start: 09-26-2024 End: 09-26-2024 ambulatory KIANNA LOWE Not Available Start: 09-12-2024 ambulatory Imad Asaad Facility:[facility] Start: 08-02-2024 End: 08-02-2024 Bamboo flowsheet Chris Singh STRUCTURAL RIGGER Work Phone: [facility] Start: 08-02-2024 End: 08-02-2024 Bamboo flowsheet Chris Singh STRUCTURAL RIGGER Work Phone: [facility] Start: 08-02-2024 End: 08-02-2024 Office outpatient visit 40 minutes Romel Sampson MD Work Phone: [facility] Comment on above: Alteration of awaren ess; History of stroke Start: 08-02-2024 End: 08-02-2024 ambulatory ROMEL SAMPSON Not Available Start: 08-02-2024 End: 08-02-2024 Patient encounter procedure Chris Singh STRUCTURAL RIGGER Work Phone: [facility] Comment on above: Medicare annual well ness visit, subsequent (Primary Dx); Other polyneuropathy; Psychophysiological insomnia Start: 08-02-2024 End: 08-02-2024 ambulatory CHRIS GARCIATRICK Not Available Start: 07-28-2024 Registered Recurring Shaikh Izzy gunn [facility] Work Phone: Start: 07-28-2024 End: 07-28-2024 ambulatory Shaikh Aung FARFAN Work Phone: [facility] Work Phone: Start: 07-28-2024 End: 07-28-2024 Patient encounter procedure Shaikh Aung FARFAN Work Phone: [facility] Work Phone: Start: 07-18-2024 End: 07-18-2024 Telephone encounter [facility] Comment on above: lacosamide (VIMPAT) Start: 06-27-2024 End: 06-27-2024 Orders Only Chris Singh STRUCTURAL RIGGER Work Phone: [facility] Comment on above: Moderate COPD (chron ic obstructive pulmonary disease) (CMS/HCC) Start: 06-21-2024 End: 07-04-2024 Telephone encounter Casi [facility] Comment on above: Hospital Follow-up Start: 06-21-2024 End: 06-21-2024 ambulatory [facility] Start: 06-13-2024 End: 06-14-2024 Non-patient / Non-visit Shaikh Aung FARFAN Work Phone: [facility] Physician [facility] Work Phone: Start: 05-31-2024 End: 05-31-2024 Office outpatient visit 15 minutes Javier Villanueva DO Work Phone: [facility] Comment on above: 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) Start: 05-31-2024 End: 05-31-2024 ambulatory JAVIER VILLANUEVA Not Available Start: 05-24-2024 End: 05-26-2024 Clinisync Result Encounter Javier Khalil Kay DO Work Phone: [facility] Unsolicited Start: 05-24-2024 End: 05-26-2024 Clinisync Result Encounter Javier Khalil Deisichani DO Work Phone: [facility] Unsolicited Start: 05-23-2024 End: 05-23-2024 Bamboo flowsheet Chris Singh STRUCTURAL RIGGER Work Phone: [facility] Start: 05-23-2024 End: 05-23-2024 Bamboo flowsheet Chris Singh STRUCTURAL RIGGER Work Phone: [facility] Start: 05-23-2024 End: 05-23-2024 Office outpatient visit 15 minutes Chris Singh STRUCTURAL RIGGER Work Phone: [facility] Comment on above: Mass of left lung (P rimary Dx) Start: 05-23-2024 End: 05-23-2024 ambulatory CHRIS SINGH Not Available Start: 05-18-2024 End: 05-18-2024 ambulatory [facility] Start: 05-18-2024 End: 05-18-2024 ambulatory [facility] Start: 05-11-2024 End: 05-11-2024 ambulatory MD Shaikh Horan Work Phone: [facility] Work Phone: Start: 05-11-2024 End: 05-11-2024 Patient encounter procedure MD Shaikh Horan Work Phone: [facility] Work Phone: Start: 05-10-2024 End: 05-10-2024 Office outpatient new 45 minutes Javier Villanueva DO Work Phone: [facility] Comment on above: Carcinoma in situ of ascending colon Start: 05-10-2024 End: 05-10-2024 ambulatory JAVIER Remi VILLANUEVA Not Available Start: 05-02-2024 End: 05-02-2024 Refill Chris Samantha STRUCTURAL RIGGER Work Phone: [facility] Comment on above: Gastroesophageal ref lux disease without esophagitis Start: 04-28-2024 ambulatory DIANA escobar [facility] Start: 04-21-2024 End: 04-21-2024 Patient encounter procedure MD Shaikh Horan Work Phone: [facility] [place] Work Phone: Start: 04-21-2024 End: 04-21-2024 ambulatory MD Shaikh Horan Work Phone: [facility] Work Phone: Start: 04-06-2024 ambulatory MD Shaikh Key kovacs Work Phone: [facility] Work Phone: Start: 04-06-2024 Non-patient / Non-visit MD Reynaldo Horan Work Phone: [facility] Work Phone: Start: 03-25-2024 Non-patient / Non-visit MD Reynaldo Horan Work Phone: [facility] Physician Group-[facility] Gastroenterology Work Phone: Start: 03-25-2024 End: 03-25-2024 Admission to same day surgery center MD Shaikh Horan Work Phone: [facility] Work Phone: Start: 03-25-2024 End: 03-25-2024 ambulatory MD Shaikh Horan Work Phone: [facility] Work Phone: Start: 03-24-2024 End: 03-24-2024 Bamboo flowsheet Chris Singh STRUCTURAL RIGGER Work Phone: [facility] Start: 03-24-2024 End: 03-24-2024 Bamboo flowsheet Chris Singh STRUCTURAL RIGGER Work Phone: [facility] Start: 03-24-2024 End: 03-24-2024 Office outpatient visit 15 minutes Chris Singh STRUCTURAL RIGGER Work Phone: [facility] Comment on above: Primary hypertension (CMS/HCC) (Primary Dx); Hyperlipidemia, unspecified hyperlipidemia type (CMS/HCC) Start: 03-24-2024 End: 03-24-2024 ambulatory CHRIS SINGH Not Available Start: 03-23-2024 End: 03-23-2024 ambulatory [facility] Start: 03-15-2024 End: 03-17-2024 Clinisync Result Encounter Generic External Data Provider [facility] Unsolicited Start: 03-15-2024 End: 03-17-2024 Clinisync Result Encounter Generic External Data Provider [facility] Unsolicited Start: 03-09-2024 End: 03-09-2024 Clinisync Result Encounter Generic External Data Provider [facility] Unsolicited Start: 03-09-2024 End: 03-09-2024 Clinisync Result Encounter Generic External Data Provider [facility] Unsolicited Start: 03-09-2024 End: 03-09-2024 ambulatory MD Shaikh Horan Work Phone: [facility] Work Phone: Start: 03-09-2024 End: 03-09-2024 Departed Referred MD Shaikh Horan Work Phone: [facility]LAB [facility] Start: 03-07-2024 End: 03-07-2024 Refill Chris Singh STRUCTURAL RIGGER Work Phone: [facility] Comment on above: Mixed hyperlipidemia (CMS/HCC) (Primary Dx); Hyperlipidemia, unspecified hyperlipidemia type (CMS/HCC) Start: 03-02-2024 End: 03-02-2024 Refill Chris Singh STRUCTURAL RIGGER Work Phone: [facility] Comment on above: Moderate COPD (chron ic obstructive pulmonary disease) (CMS/HCC) (Primary Dx) Start: 03-01-2024 End: 03-01-2024 Clinisync Result Encounter Chris Singh STRUCTURAL RIGGER Work Phone: [facility] Unsolicited Start: 03-01-2024 End: 03-01-2024 Clinisync Result Encounter Chris Singh STRUCTURAL RIGGER Work Phone: [facility] Unsolicited Start: 03-01-2024 End: 03-01-2024 ambulatory SHAIKH AUNG Facility:[facility] Start: 03-01-2024 End: 03-01-2024 Patient encounter procedure Arden De Leon [facility] Start: 02-23-2024 Non-patient / Non-visit MD Reynaldo Horan Work Phone: [facility] Work Phone: Start: 02-22-2024 End: 02-22-2024 ambulatory CHRIS SINGH Not Available Start: 02-19-2024 ambulatory SHAIKH AUNG Facility: [facility] Start: 01-04-2024 End: 01-04-2024 ambulatory SHAIKH AUNG Not Available Start: 12-30-2023 End: 12-30-2023 Patient encounter procedure MD Shaikh Horan Work Phone: [facility] Physician [facility] Vascular Surgery Work Phone: Start: 12-30-2023 End: 12-30-2023 ambulatory MD Shaikh Horan Work Phone: [facility] Work Phone: Start: 12-27-2023 End: 12-27-2023 Emergency department patient visit MD Shaikh Horan Work Phone: [facility]-Emergency Room Work Phone: Start: 11-09-2023 End: 11-09-2023 ambulatory SHAIKH JOSHLASHANDAMaximiliano Not Available Start: 10-12-2023 End: 10-12-2023 ambulatory SHAIKH EPIMaximiliano Not Available Start: 08-20-2023 Orders Only Shaikh Aung FARFAN Work Phone: [facility] Comment on above: RLS (restless legs s yndrome) (Primary Dx); Moderate COPD (chronic obstructive pulmonary disease) ([facility]) Start: 07-09-2023 Patient encounter procedure Shaikh Aung FARFAN Work Phone: [facility] Start: 03-25-2023 End: 03-25-2023 ambulatory Nigel Valladares Other [employer] Other Start: 03-25-2023 Office outpatient vi sit 15 minutes Nigel Valladares [facility] Vascular Surgery Start: 02-09-2023 End: 02-09-2023 ambulatory Cherelle Singhdylan Other [employer] Other Start: 02-09-2023 FQ visit new patient Cherelle Singhingrid grissom [facility] Vascular Surgery Start: 01-07-2023 End: 01-07-2023 Patient encounter procedure Brigette Martini [facility] Start: 01-01-2023 End: 01-01-2023 Patient encounter procedure Brigette Martini [facility] Start: 12-29-2022 End: 12-29-2022 Patient encounter procedure Brigette Martini [facility] Start: 12-24-2022 End: 12-24-2022 Patient encounter procedure Brigette Martini [facility] Start: 12-24-2022 End: 02-19-2023 Pre-admission assessment Jorge MERCEDES [facility] Start: 12-24-2022 End: 12-24-2022 Patient encounter procedure Brigette Martini [facility] Start: 11-11-2022 End: 11-11-2022 ambulatory HURTADO H FAWWAD Facility:[facility] Start: 10-27-2022 End: 10-28-2022 ambulatory LEIGH THOMPSON . Facility:[facility] Start: 09-01-2022 End: 09-01-[address] ARMANDO WESTON . Facility:[facility] Start: 07-24-2022 End: 07-25-2022 ambulatory HURTADO H FAWWAD Facility:[facility] Start: 07-14-2022 ambulatory HURTADO H FAWWAD Facilit y:[facility] Start: 07-09-2022 End: 07-10-2022 ambulatory HURTADO H FAWWAD Facility:[facility] Start: 07-04-2022 ambulatory HUTRADO H FAWWAD Facilit y:[facility] Start: 06-09-2022 End: 06-09-2022 Patient encounter procedure Armando WESTON [facility] Start: 05-07-2022 End: 05-08-2022 ambulatory HURTADO H FAWWAD Facility:[facility] Procedures Date Procedure Procedure Detail Performing Clinician Start: 06-21-2024 Colonoscopy Chris serrano NP Work Phone: Start: 05-24-2024 [facility]OLO [facility] REFERENCE LAB CONSULT Javier Villanueva DO Work Phone: Start: 04-21-2024 Carcinoembryonic antigen cea Imad Asaad Comment on above: Result Comment: Demarco palencia tumor marker results determined by assays using different manufacturers or methods may not be comparable. [facility] Laboratory scanning tech and method: ANTIONE UNICEL DXI, 2 SITE IMMUNOENZYMATIC ?SANDWICH? ASSAY. PERFORMED BY: [facility] [address] [id number] PATHOLOGIST DIETICIAN JENNIFER ALANIZ M.D. Performed By: #### C EA #### [place] [id number] [facility] Start: 04-21-2024 Computed tomography of abdomen and pelvis with contrast MD Shaikh Horan Work Phone: Start: 04-21-2024 CT of thorax with contrast MD Shaikh Horan Work Phone: Start: 03-25-2024 End: 03-25-2024 Colonoscopy MD Shaikh Horan Work Phone: Start: 03-15-2024 HISTOPLASMA GAL'BARB AG UR Generic External Data Provider Start: 03-09-2024 ALL HGB HCT Generic Ex ternal Data Provider Start: 03-01-2024 ALL CBC WITH AUTO DIFF Chris Singh [employer]UCTURAL RIGGER Work Phone: Start: 12-30-2023 US scan of [...] Horan Work Phone: Start: 12-27-2023 Antibody screen Imad As aad Comment on above: Result Comment: PERF ORMED BY: [facility] [place] [address] PATHOLOGIST DIETICIAN JENNIFER ALANIZ M.D. Start: 12-27-2023 CT angiography of thorax MD Shaikh Horan Work Phone: Start: 12-27-2023 Plain chest X-ray MD Janett Horan Work Phone: Start: 07-03-2022 Mammography Shaikh Josh flowers MD Work Phone: Start: 07-13-1989 Introduction of tens ion free vaginal tape Brigette Martini Cholecystectomy Brigette nash Hysterectomy Brigetteenrique Martini Rotator cuff includi ng muscles and tendons (body structure) Brigette Martini Plan of Treatment Date Care Activity Detail Author Start: 06-21-2034 Screening for malign ant neoplasm of colon [facility] Start: 03-25-2034 Screening for malign ant neoplasm of colon [facility] Start: 04-12-2026 Screening for malign ant neoplasm of colon [facility] Start: 08-02-2025 Medicare Annual Well ness (AWV) Medicare Annual Wellness (AWV) [facility] Start: 06-15-2025 Adult BMI Screening Adult BMI Screen ing [facility] Start: 06-15-2025 Tobacco Screening Tobacco Screening [facility] Start: 10-24-2024 End: 10-24-2024 Patient encounter procedure 10/24/2024 9:20 AM EDT Office Visit [facility] [address] [place] [address] Kianna Roman PA [address] [place], [place] [id number] [facility] Start: 09-26-2024 End: 09-26-2024 Patient encounter procedure [facility] Comment on above: Arrived Start: 09-13-2024 End: 09-13-2024 Patient encounter procedure 09/13/2024 10:00 AM EST Office Visit [facility] [address] [place] [address] Chris Singh NP [address] [place] [address] [facility] Start: 08-02-2024 End: 08-02-2024 Patient encounter procedure [facility] Comment on above: Arrived Start: 08-01-2024 End: 08-01-2024 Patient encounter procedure 08/01/2024 10:30 AM EST Office Visit [facility] [address] [place] [address] Chris Singh NP [address] [place] [address] [facility] Start: 07-09-2024 Medicare Annual Well ness (AWV) Medicare Annual Wellness (AWV) [facility] Start: 06-29-2024 End: 06-29-2024 Patient encounter procedure 06/29/2024 9:45 AM EST Office [facility] [address] [id number] Javier Villanueva DO [address] [facility] [address] [place] [address] [facility] Start: 06-23-2024 End: 03-24-2025 Lipid 1996 panel - Serum or Plasma Lipid panel Lab Routine Hyperlipidemia, unspecified hyperlipidemia type (CMS/HCC) Expected: 06/23/2024 (Approximate), Expires: 03/24/2025 [facility] Work Phone: Comment on above: Expected: 06/23/2024 (Approximate), Expires: 03/24/2025 Start: 06-23-2024 End: 06-23-2024 Patient encounter procedure 06/23/2024 10:00 AM EST Office Visit [facility] [address] [place] [address] Chris Singh NP [address] [place] [address] [facility] Start: 05-31-2024 End: 05-31-2024 Patient encounter procedure 05/31/2024 10:30 AM EST [facility] [address] [place] [phone] Javier Villanueva, DO [address] [place] [address] [facility] Start: 05-03-2024 End: 05-03-2024 Patient encounter procedure 05/03/2024 2:00 PM EDT Consult [facility] [address] [place] [phone] Javier Villanueva, DO [address] [place] [address] [facility] Start: 04-06-2024 Patient referral [facility] Work Phone: Start: 03-25-2024 [facility] Start: 03-24-2024 End: 03-24-2024 Patient encounter procedure [facility] Comment on above: Arrived Start: 03-13-2024 Influenza vaccination [facility] Start: 01-10-2024 Influenza vaccination Influenza Vacc ine (#1) [facility] Comment on above: Postponed from 03/13 (Patient Refused) Start: 12-27-2023 Bacteria identified in Blood by Culture [facility] Start: 12-27-2023 Bacteria identified in Urine by Culture [facility] Start: 12-27-2023 Blood culture for bacteria, including anaerobic screen Blood Culture [facility] Start: 10-08-2023 End: 10-08-2023 Patient encounter procedure 10/08/2023 2:00 PM EDT Office Visit [facility] [address] [place] [address] Shaikh Horan MD [address] [place] [address] [facility] Start: 07-03-2023 Screening for malign ant neoplasm of breast Mammogram [facility] Start: 2017 Fall Risk Screening Fall Risk Screen ing [facility] Start: 2002 Administration of varicella zoster vaccine Zoster (Shingles) Vaccine (1 of 2) [facility] Start: 1971 DTaP,Tdap and Td Vaccines (1 - Tdap) DTaP,Tdap and Td Vaccines (1 - Tdap) [facility] Start: 1970 Adult BMI Follow Up Plan Adult BMI F ollow Up Plan [facility] Start: 1964 Depression Screening Depression Scre ening [facility] Start: 1952 Screening for malign ant neoplasm of colon [facility] CT with contrast for radiotherapy planning [facility] Patient Education [facility] Work Phone: Patient referral [facility] Work Phone: US Thoracic and abdominal aorta [facility] Immunizations Immunization Date Immunization Notes Care Provider Fa cilifatmata 07-09-2022 pneumococcal 20-ananya nt conjugate vaccine Brigette Martini [facility] Griselda 07-03-2022 pneumococcal conjuga te vaccine, 13 valent Brigette Martini [facility] Payers Date Payer Category Payer Medicare [id number] 2024 Medicare HMO [employer] MEDICARE [id number] 2023 Medicare (Managed Care) 1.2. [id number] 2023 Private Health Insurance [id number] 2023 Private Health Insurance [id number] 2022 Unknown [employer] [id number] 2022-Present [address] [place] [address] [id number] [id number] 2020 Unknown [id number] 2013 Medicare [id number] 2013 Medicare [id number] 1959 Self-pay 1952 Unknown [id number] 2.16.840.1.886472.3.579. 2.593 1952 Unknown [id number] 2.16.840.1.835809.3.579. 2.593 1952 Unknown [id number] 2.16.840.1.806995.3.579. 2.593 1952 Unknown [id number] 2.16.840.1.800597.3.579. 2.593 1952 Unknown [id number] 2.16.840.1.862801.3.579. 2.593 1952 Unknown [id number] 2.16.840.1.874009.3.579. 2.593 1952 Unknown [id number] 2.16.840.1.726380.3.579. 2.593 1952 Unknown [id number] 2.16.840.1.897392.3.579. 2.593 1952 Unknown [id number] 2.16.840.1.890197.3.579. 2.727 1952 Unknown [id number] 2.16.840.1.290045.3.579. 2.727 1952 Unknown [id number] 2.16.840.1.392889.3.579. 2.1259 1952 Unknown [id number] 2.16.840.1.917547.3.579. 2.1259 1952 Unknown [id number] 2.16.840.1.575222.3.579. 2.1259 1952 Unknown [id number] 2.16.840.1.634955.3.579. 2.1259 1952 Unknown [id number] 2.16.840.1.958299.3.579. 2.1259 1952 Unknown [id number] 2.16.840.1.215266.3.579. 2.125 1952 Unknown [id number] 2.16.840.1.780871.3.579. 2.1259 1952 Unknown [id number] 2.16.840.1.649588.3.579. 2.1259 1952 Unknown [id number] 2.16.840.1.908678.3.579. 2.1259 1952 Unknown [id number] 2.16.840.1.848091.3.579. 2.1259 1952 Unknown [id number] 2.16.840.1.561143.3.579. 2.1259 Medicare [employer] MCR PFFS [id number] Unknown [id number] 2.16.840.1.568120.3.579. 2.531 Unknown [id number] 2.16.840.1.482710.3.579. 2.531 Unknown [id number] 2.16.840.1.542035.3.579. 2.531 Unknown [id number] 2.16.840.1.546128.3.579. 2.531 Unknown [id number] 2.16.840.1.993294.3.579. 2.531 Unknown [id number] 2.16.840.1.674834.3.579. 2.531 Unknown [id number] 2.16.840.1.950657.3.579. 2.531 Social History Date Type Detail Facility Tobacco smoking status Execu tive [facility] Griselda Start: 07-09-2023 End: 12-08-2023 Sex Assigned At Female [facility] Start: 12-24-2022 Tobacco smoking status Heavy t obacco smoker (finding) [facility] Tobacco smoking status Never [facility] Start: 07-09-2023 [facility] End: 12-28-2023 History of tobacco use Cigarette Smoker [facility] Start: 07-09-2023 End: 12-08-2023 Cigarettes smoked current (pack per day) - Reported 1 [facility] Start: 07-09-2023 End: 01-04-2024 Tobacco use and exposure Smokeless tobacco non-user [facility] Start: 07-09-2023 End: 09-26-2024 Alcohol intake Lifetime non-drinker (finding) [facility] Start: 1950 Sex Assigned At Not on file [facility] Start: 1950 Sex Assigned At Female F [facility] Start: 12-27-2023 End: 12-28-2023 Tobacco smoking status [facility] Smoker (finding) [facility] Start: 01-04-2024 End: 03-25-2024 Tobacco smoking status [facility] Ex-smoker (finding) [facility] History of tobacco use Passive smoker [...] to buy more. Never true [facility] Start: 06-15-2024 Alcoholic beverage intake Ex-drinker (finding) [facility] Start: 06-13-2024 End: 07-28-2024 Sex Female (finding) [facility] Goals Date Patient Goal Desired Activity /State Personal health goal Comment on above: Formatting of this n ote might be different from the original. Evaluation of progress towards goal: Significant other hopes patient will be able to return home Functional Status Date Assessment Result Facility 12-24-2022 Functional Status N/A [facility] Clinical Notes 06-09-2022 to 09-26-2024 TIAGO Garcia - 09/26/2024 10:40 AM Millie Sampson MD - 08/02/2024 12:30 PM Ghassan Singh CLOTILDE - 08/02/2024 11:00 AM ESTTelephone Encounter - Lay Chacon - 07/18/2024 2:17 PM EST Note Date & Type Note Facility 09-26-2024 History of Present illness Narrative Images from the original note were not included. Subjective Bhupendra Rubi is a 74 y.o. year old female Chief Complaint Patient presents with Seizures Past Medical History: Diagnosis Date Abdominal pain [...] 12 months. Denies hematuria, nausea/vomiting. Negative UA Past Surgical History: Procedure Laterality Date CHOLECYSTECTOMY COLONOSCOPY W/ POLYPECTOMY 03/25/2024 CT ANGIOGRAM HEART CORONARY 06/15/2024 CT ANGIOGRAM TAVR 06/15/2024 HYSTERECTOMY ROTATOR CUFF REPAIR Bilateral TUBAL LIGATION Family History Problem Relation Name Age of Onset Cancer Mother Lung Other cancer Sister Blood Clots Stroke Son Cancer Mother's Sister Social History Tobacco Use Smoking status: Former Current packs/day: 0.00 Average packs/day: 0.5 packs/day for 55.0 years (27.5 ttl pk-yrs) Types: Cigarettes Quit date: 12/28/2023 Years since quittin.7 Passive exposure: Current Smokeless tobacco: Never Substance Use Topics Alcohol use: Never Medication Documentation Review Audit Reviewed by Yakelin Powell MA (Business Development Associate) on 09/26/24 at 1022 Medication Order Taking? Sig Documenting Provider Last Dose Status albuterol HFA 90 mcg/act inhaler [id number] Inhale 2 puffs every 4 (four) hours if needed for wheezing or shortness of breath Shaikh Aung MD Active atorvastatin (Lipitor) 80 MG tablet [id number] Take 1 tablet (80 mg) by mouth Daily Chris Singh NP 08/02/24 235 Wmbziil-Xrdvcvtvgeh-Hcvmrasrvb (Breztri Aerosphere) 160-9-4.8 MCG/ACT aerosol [id number] Inhale 2 puffs in the morning and 2 puffs before bedtime. Chris Singh NP Active ezetimibe (Zetia) 10 MG tablet [id number] Take 1 tablet (10 mg) by mouth in the morning. Shaikh Aung MD 08/02/24 2359 gabapentin (Neurontin) 300 MG capsule [id number] Take 1 capsule (300 mg) by mouth in the morning and 1 capsule (300 mg) in the evening and 1 capsule (300 mg) before bedtime. Chris Singh NP Active lacosamide (Vimpat) 150 mg tablet tablet [id number] Take 150 mg by mouth in the morning and 150 mg in the evening. Active lamoTRIgine (LaMICtal) 100 MG tablet [id number] Take 100 mg by mouth in the morning. Do not start before July 28, 2024. Active losartan (Cozaar) 25 MG tablet [id number] Take 25 mg by mouth in the morning. Active rOPINIRole (Requip) 0.5 MG tablet [id number] Take 1 tablet (0.5 mg) by mouth at bedtime Shaikh Aung MD Active traZODone (Desyrel) 100 MG tablet [id number] Take 1 tablet (100 mg) by mouth at bedtime Chris Singh NP Active HPI HPI SEIZURE -2 seizures in June -admits LOC and body shaking -denies any tongue biting or incontinence -denies any recent head injury -currently on Vimpat and Lamictal -states that on Thursday she lost consciousness -she denies fever, illness, sleep deprivation -she denies missed doses of medication -she does not know how long she was unconscious for -she states that she was in the tub and felt dizzy -she woke up and had to crawl across the floor to call her boyfriend for help -she did not go to the ER -3 months ago she finished radiation -no longer taking trazodone -she felt this was making her lose consciousness -she has increase in tremulousness -she notes that she had this in the past but this has increased since June when she was started on medications. ROS Review of Systems Constitutional: Positive for fatigue. Neurological: Positive for seizures. Psychiatric/Behavioral: Positive for sleep disturbance. Objective Visit Vitals BP 138/84 (BP Location: Left arm, Patient Position: Sitting) Ht 5' 2 Wt 150 lb BMI 27.44 kg/m OB Status Hysterectomy Smoking Status Former BSA 1.72 m Neurological Exam Mental Status Awake, alert and oriented to person, place and time. Speech is normal. Language is fluent with no aphasia. Cranial Nerves CN II: Visual isidro full to confrontation. CN III, IV, : Extraocular movements intact bilaterally. Normal lids and orbits bilaterally. Pupils equal round and reactive to light bilaterally. CN V: Facial sensation is normal. CN VII: Full and symmetric facial movement. CN VIII: Hearing is normal. CN IX, X: Palate elevates symmetrically. Normal gag reflex. CN XI: Shoulder shrug strength is normal. CN XII: Tongue midline without atrophy or fasciculations. Sensory Decraesed to touch and pin prick in the right side. Coordination Lveagn-gq-hxtx, rapid alternating movements and ssen-ai-nmtd normal bilaterally without dysmetria. Gait Normal casual, toe, heel and tandem gait. Motor Examination RUE Strength deltoid, biceps, triceps, wrist extensors, wrist extensors, wrist flexor, cnp strength 4/5. LUE Strength deltoid, biceps, triceps, wrist extensors, wrist extensors, wrist flexor, cnp strength 5/5. RLE Strength illopsoas, quadriceps, tibialis anterior, and gastrocnemius strength 5/5. LLE Strength illopsoas, quadriceps, tibialis anterior, and gastrocnemius strength 5/5. Increased tone in the right side Reflexes: RUE biceps reflex 3, brachioradialis reflex 3 LUE biceps reflex 2, brachioradialis reflex 2 RLE knee reflex 3, LLE knee reflex 2, Assessment and Plan Diagnoses and all orders for this visit: Alteration of awareness - lacosamide (Vimpat) 100 MG tablet; Take 1 tablet (100 mg) by mouth in the morning and 1 tablet (100 mg) before bedtime. - lamoTRIgine (LaMICtal) 150 MG tablet; Take 1 tablet (150 mg) by mouth in the morning. History of stroke Patient has a history of COPD, CVA with residual dysarthria, mild expressive aphasia and hemiparesis, diagnosed with small cell lung cancer and starts radiation tomorrow who presents after having having a seizure-like episode in June and went to [facility] and then transferred to [place]. The episode that she had presented as upper body shaking with confusion after that lasted about 15 minutes and was over by the time EMS arrived. She had an MRI of the brain 06/2024 with no acute abnormality noted. The patient had a LTME that revealed left fronto-central dysfunction but no clear epileptiform discharges or seizures were seen. She was stated on Vimpat and titrated up on Lamictal. She notes that she has increase in tremulousness since she has been on medications. PLAN: Due to tremulousness, lower Vimpat to 100mg PO BID for seizure prevention. Adjust Lamitcal to 150mg daily for seizure prevention to compensate for lowering of Vimpat. I counseled the patient on the side effects of medications. She notes that she cannot sleep and stopped taking trazodone as she has been on this for over 10 years and didn't want to take with her other medications. Consider mirtazapine if she has not tried in the past. I counseled the patient on seizure precautions at length including no driving. Follow up in 4 weeks documented in this encounter [facility] 08-02-2024 History of Present illness Narrative Images from the original note were not included. Subjective Bhupendra Rubi is a 74 y.o. year old female Chief Complaint Patient presents with Seizures Past Medical History: Diagnosis Date Abdominal pain [...] 12 months. Denies hematuria, nausea/vomiting. Negative UA Past Surgical History: Procedure Laterality Date CHOLECYSTECTOMY COLONOSCOPY W/ POLYPECTOMY 03/25/2024 CT ANGIOGRAM HEART CORONARY 06/15/2024 CT ANGIOGRAM TAVR 06/15/2024 HYSTERECTOMY ROTATOR CUFF REPAIR Bilateral TUBAL LIGATION Family History Problem Relation Name Age of Onset Cancer Mother Lung Other cancer Sister Blood Clots Stroke Son Cancer Mother's Sister Social History Tobacco Use Smoking status: Former Current packs/day: 0.00 Average packs/day: 0.5 packs/day for 55.0 years (27.5 ttl pk-yrs) Types: Cigarettes Quit date: 12/28/2023 Years since quittin.5 Passive exposure: Current Smokeless tobacco: Never Substance Use Topics Alcohol use: Never Medication Documentation Review Audit Reviewed by Lashaun Reynaga MA (Business Development Associate) on 08/02/24 at 1158 Medication Order Taking? Sig Documenting Provider Last Dose Status albuterol HFA 90 mcg/act inhaler [id number] Inhale 2 puffs every 4 (four) hours if needed for wheezing or shortness of breath Shaikh Aung MD Active atorvastatin (Lipitor) 80 MG tablet [id number] Take 1 tablet (80 mg) by mouth Daily Chris Singh NP Active Kxmvjzt-Puzbizzjqht-Izcryjjytv (Breztri Aerosphere) 160-9-4.8 MCG/ACT aerosol [id number] Inhale 2 puffs in the morning and 2 puffs before bedtime. Chris Singh NP Active ezetimibe (Zetia) 10 MG tablet [id number] Take 1 tablet (10 mg) by mouth in the morning. Shaikh Aung MD Active Discontinued 08/02/24 1054 Discontinued 08/02/24 1118 gabapentin (Neurontin) 300 MG capsule [id number] Take 1 capsule (300 mg) by mouth in the morning and 1 capsule (300 mg) in the evening and 1 capsule (300 mg) before bedtime. Chris Singh NP Active lacosamide (Vimpat) 150 mg tablet tablet [id number] Take 150 mg by mouth in the morning and 150 mg in the evening. Active lamoTRIgine (LaMICtal) 100 MG tablet [id number] Take 100 mg by mouth in the morning. Do not start before July 28, 2024. Active Discontinued 08/02/24 1055 Discontinued 08/02/24 1055 losartan (Cozaar) 25 MG tablet [id number] Take 25 mg by mouth in the morning. Active Discontinued 08/02/24 1056 rOPINIRole (Requip) 0.5 MG tablet [id number] Take 1 tablet (0.5 mg) by mouth at bedtime Shaikh Aung MD 05/23/24 4332 Discontinued 08/02/24 1118 traZODone (Desyrel) 100 MG tablet [id number] Take 1 tablet (100 mg) by mouth at bedtime Chris Singh NP Active Discontinued 08/02/24 1057 HPI HPI Ms. Rubi is a 74 year old female who I was asked to see in neurological consultation at the request of Dr. Lundberg for seizures. She states that she has had 2 seizures. She was seen at [facility] and [facility] and was transferred to [place]. She admits LOC and body shaking. She denies any tongue biting or incontinence. She denies any recent head injury. She was diagnosed with lung cancer about 8 months ago. She is starting radiation tomorrow. She is currently on Vimpat and Lamictal. She takes these daily and denies any missed doses. She denies any seizures since starting medication. She is not sleeping well at night. She gets about 5 hours of sleep a night. She is on Trazodone and this helps her get to sleep but does not help her stay asleep. She denies any other concerns. ROS Review of Systems Constitutional: Positive for fatigue. Neurological: Positive for seizures. Psychiatric/Behavioral: Positive for sleep disturbance. Objective Visit Vitals BP 118/84 Ht 5' 2 Wt 152 lb BMI 27.80 kg/m OB Status Hysterectomy Smoking Status Former BSA 1.74 m Neurological Exam Mental Status Awake, alert and oriented to person, place and time. Speech is normal. Language is fluent with no aphasia. Cranial Nerves CN II: Visual acuity is normal. Visual isidro full to confrontation. CN III, IV, : Extraocular movements intact bilaterally. Normal lids and orbits bilaterally. Pupils equal round and reactive to light bilaterally. CN V: Facial sensation is normal. CN VII: Full and symmetric facial movement. CN VIII: Hearing is normal. CN IX, X: Palate elevates symmetrically. Normal gag reflex. CN XI: Shoulder shrug strength is normal. CN XII: Tongue midline without atrophy or fasciculations. Sensory Decraesed to touch and pin prick in the right side. Coordination Eanqdx-rd-ajsv, rapid alternating movements and nadm-af-awad normal bilaterally without dysmetria. Gait Normal casual, toe, heel and tandem gait. Motor Examination RUE Strength deltoid, biceps, triceps, wrist extensors, wrist extensors, wrist flexor, cnp strength 4/5. LUE Strength deltoid, biceps, triceps, wrist extensors, wrist extensors, wrist flexor, cnp strength 5/5. RLE Strength illopsoas, quadriceps, tibialis anterior, and gastrocnemius strength 5/5. LLE Strength illopsoas, quadriceps, tibialis anterior, and gastrocnemius strength 5/5. Increased tone in the right side Reflexes: RUE biceps reflex 3, brachioradialis reflex 3 LUE biceps reflex 2, brachioradialis reflex 2 RLE knee reflex 3, ankle reflex 3 LLE knee reflex 2, ankle reflex 2 Assessment and Plan Diagnoses and all orders for this visit: Alteration of awareness History of stroke The patient is a 74 year old female with a history of COPD, CVA with residual dysarthria, mild expressive aphasia and hemiparesis, diagnosed with small cell lung cancer and starts radiation tomorrow who presents after having having a seizure-like episode in June and went to [facility] and then transferred to [place]. The episode that she had presented as upper body shaking with confusion after that lasted about 15 minutes and was over by the time EMS arrived. She had an MRI of the brain with no acute abnormality noted. The patient had a LTME that revealed left fronto-central dysfunction but no clear epileptiform discharges or seizures were seen. She was stated on Vimpat and is currently titrating up on Lamictal. PLAN: I counseled the patient on the possible diagnosis, prognosis, and possible treatment options. I have reviewed the records from [facility] and [place] Continue Vimpat 150 mg bid for seizure prevention She is currently doing titration of Lamictal and will be maintained on 100 mg qam. I counseled the patient on seizure precautions at length including no driving. The patient states understanding. I will see the patient back in 8 weeks to review the diagnostic testing and make further recommendations based upon the above results and the patient's response to this therapeutic plan. I will see the patient sooner should she develop new symptoms, worsening symptoms, or side effects from medications. documented in this encounter [facility] 08-02-2024 History of Present illness Narrative Subjective : Chief Complaint: Bhupendra Rubi is an 74 y.o. female here for an annual wellness visit. I have reviewed and reconciled the history and medication list with the patient today. Current Outpatient Medications Medication Sig Dispense Refill albuterol HFA 90 mcg/act inhaler Inhale 2 puffs every 4 (four) hours if needed for wheezing or shortness of breath 6.7 g 0 atorvastatin (Lipitor) 80 MG tablet Take 1 tablet (80 mg) by mouth Daily 90 tablet 0 Bwjmxzv-Kvjcmzxhnwa-Yrmuvtppyr (Breztri Aerosphere) 160-9-4.8 MCG/ACT aerosol Inhale 2 puffs in the morning and 2 puffs before bedtime. 10.7 g 2 ezetimibe (Zetia) 10 MG tablet Take 1 tablet (10 mg) by mouth in the morning. 30 tablet 2 lacosamide (Vimpat) 150 mg tablet tablet Take 150 mg by mouth in the morning and 150 mg in the evening. lamoTRIgine (LaMICtal) 100 MG tablet Take 100 mg by mouth in the morning. Do not start before July 28, 2024. losartan (Cozaar) 25 MG tablet Take 25 mg by mouth in the morning. gabapentin (Neurontin) 300 MG capsule Take 1 capsule (300 mg) by mouth in the morning and 1 capsule (300 mg) in the evening and 1 capsule (300 mg) before bedtime. 270 capsule 0 rOPINIRole (Requip) 0.5 MG tablet Take 1 tablet (0.5 mg) by mouth at bedtime 90 tablet 0 traZODone (Desyrel) 100 MG tablet Take 1 tablet (100 mg) by mouth at bedtime 90 tablet 1 No current facility-administered medications for this visit. Review of Systems Constitutional: Negative for activity change, appetite change, chills, diaphoresis, fatigue, fever and unexpected weight change. HENT: Negative for congestion, ear pain, rhinorrhea, sinus pressure, sinus pain, sneezing, sore throat, trouble swallowing and voice change. Eyes: Negative for visual disturbance. Respiratory: Negative for cough, chest tightness, shortness of breath and wheezing. Cardiovascular: Negative for chest pain, palpitations and leg swelling. Gastrointestinal: Negative for abdominal distention, abdominal pain, blood in stool, constipation, diarrhea and vomiting. Genitourinary: Negative for decreased [...] intolerance, heat intolerance, polydipsia, polyphagia and polyuria. List of current healthcare providers: Patient Care Team: Charanjit Chen MD as PCP - General (Family Medicine) Chris Singh NP as Nurse Practitioner (Family Medicine) Henok Hendrix MA (Family Medicine) Medicare Annual Visit Over the past 2 weeks, how often have you been bothered by any of the following problems? Little interest or pleasure in doing things: Several days Feeling down, depressed, or hopeless: Not at all Patient Health Questionnaire-2 Score: 1 Over the past 2 weeks, how often have you been bothered by any of the following problems? Trouble falling or staying asleep, or sleeping too much: Several days Feeling tired or having little energy: Several days Poor appetite or overeating: Nearly every day Feeling bad about yourself - or that you are a failure or have let yourself or your family down: Not at all Trouble concentrating on things, such as reading the newspaper or watching television: Nearly every day Moving or speaking so slowly that other people could have noticed? Or the opposite - being so fidgety or restless that you have been moving around a lot more than usual.: Several days Thoughts that you would be better off or hurting yourself in some way: Not at all Patient Health Questionnaire-9 Score: 10 Mcginnis Fall Risk History of Falling, Immediate or Within 3 Months: No Health Risk Assessment Form Do you need help eating, bathing, using the toilet, dressing, or getting around your home?: No Can you prepare your own meals?: Yes Can you do your own housework without help?: No Can you shop for groceries or clothes without help?: Yes Do you exercise for about 20 minutes 3 or more days a week?: No How confident are you that you can control and manage most of your health problems?: Somewhat confident Cognitive Screening Three Word Registration: Minerva Duran, Finger Clock Drawing: Partial Clock - 1 Three Word Recall: 0 words correct - 0 Total Score (0-5 Points): 1 Advance Care Planning Do you have a living will?: Yes Do you have a medical power of workers compensation defense attorney?: Yes Who is your medical power of workers compensation defense attorney?: charito son Objective : BP 128/76 Pulse 107 Temp 97.1 F Resp 16 Ht 5' 2 Wt 156 lb SpO2 95% BMI 28.53 kg/m No results found. Physical Exam Vitals reviewed. Constitutional: Appearance: Normal appearance. HENT: Right Ear: Tympanic membrane normal. Left Ear: [...] soft. Musculoskeletal: General: Normal range of motion. Skin: General: Skin is warm and dry. Capillary Refill: Capillary refill takes less than 2 seconds. Neurological: Mental Status: She is alert and oriented to person, place, and time. Assessment/Plan : The following health maintenance schedule was reviewed with the patient and provided in printed form in the after visit summary: Health Maintenance Topic Date Due Mammogram 07/03/2023 Influenza Vaccine (1) Never done Medicare Annual Wellness (AWV) 07/09/2024 Colorectal Cancer Screening 06/21/2034 Pneumococcal Vaccine: 65+ Years Completed Advance Care Planning Patient has Advance Care Directives. Will bring copies to be scanned into chart at next OV. No orders of the defined types were placed in this encounter. Electronically signed by Chris Singh NP on August 02, 2024 documented in this encounter [facility] 07-18-2024 Miscellaneous Notes Henok from [facility] called to request a refill of the patient's lacosamide (VIMPAT) 150 mg tablet. Pump Installation And Servicer informed her that the prescription was sent on 06/17/2024 with 3 refills to [facility] Ellen voiced understanding and stated she would inform the patient documented in this encounter [facility] 07-18-2024 Telephone encounter Note Henok from [facility] called to request a refill of the patient's lacosamide (VIMPAT) 150 mg tablet. Pump Installation And Servicer informed her that the prescription was sent on 06/17/2024 with 3 refills to [facility] Ellen voiced understanding and stated she would inform the patient [facility] 06-21-2024 Note Patient: Bhupendra roberts Procedure Summary Date: 06/21/24 Room / Location: [facility] Anesthesia Start: 1343 Anesthesia Stop: 1444 Procedure: DIAGNOSTIC COLONOSCOPY Diagnosis: Polyp of ascending colon, unspecified type Colonic mass Scheduled Providers: Jacki Rivas MD; MENDEZ Guzman; Florinda Sandoval MD Responsible Provider: Jacki Rivas MD Anesthesia Type: general ASA Status: 3 Anesthesia Type: general Vitals Value Taken Time BP 150/78 06/21/24 1513 Temp 36.2 ???C (97.2 ???F) 06/21/24 1443 Pulse 89 06/21/24 1513 Resp 18 06/21/24 1513 SpO2 93 % 06/21/24 1513 Anesthesia Post Evaluation Patient location during evaluation: PACU Patient participation: complete - patient participated Level of consciousness: awake Pain score: 0 Pain management: adequate Airway patency: patent Cardiovascular status: acceptable Respiratory status: acceptable Patient is hemodynamically stable and is able to be discharged from PACU per anesthesia protocol. No notable events documented. [facility] 06-21-2024 Note Airway Date/Time: 06/21/2024 1:49 PM Urgency: elective General Information and Staff Patient location during procedure: OR Anesthesiologist: Jacki Rivas MD Resident/BOOKING SUPERVISOR/CAA: MENDEZ Guzman Performed: resident/BOOKING SUPERVISOR/CAA Indications and Patient Condition Indications for airway management: anesthesia Spontaneous Ventilation: absent Sedation level: deep Preoxygenated: yes Mask difficulty assessment: 1 - vent by mask Final Airway Details Final airway type: endotracheal airway Successful airway: ETT Cuffed: yes Successful intubation technique: video laryngoscopy Facilitating devices/methods: intubating stylet Endotracheal tube insertion site: oral Blade: Amato Blade size: #3 ETT size (mm): 7.0 Cormack-Lehane Classification: grade I - full view of glottis Placement verified by: chest auscultation and capnometry Measured from: lips ETT to lips (cm): 22 Number of attempts at approach: 1 Number of other approaches attempted: 0 [facility] 06-21-2024 Note Patient: Bhupendra roberts Procedure Information Date/Time: 06/21/24 1200 Scheduled providers: Jacki Rivas MD; MENDEZ Guzman; Florinda Sandoval MD Procedure: DIAGNOSTIC COLONOSCOPY Location: [facility] Past Medical History: Diagnosis Date Anxiety with depression Centrilobular emphysema (CMS/HCC) Colon polyp GERD (gastroesophageal reflux disease) Hyperlipidemia Hypertension Infrarenal abdominal aortic aneurysm (AAA) without rupture (CMS/HCC) Mass of right parotid gland Motion sickness Multiple pulmonary nodules Stroke (CMS/HCC) Relevant Problems Cardio (+) Abdominal aortic aneurysm (AAA) 3.0 cm to 5.0 cm in diameter in female (CMS/HCC) GI (+) Gastroesophageal reflux disease Neuro/Psych (+) CVA (cerebral vascular accident) (CMS/HCC) Pulmonary (+) Moderate COPD (chronic obstructive pulmonary disease) (CMS/HCC) Clinical information reviewed: Tobacco Allergies Meds Med Hx Surg Hx Fam Hx Soc Hx Physical Exam Airway Mallampati: II TM distance: >3 FB Neck ROM: full Cardiovascular - normal exam Dental (+) upper dentures, lower dentures Pulmonary - normal exam Abdominal - normal exam Other findings: RUE weakness s/p previous CVA Patient denies any seizure activity since being treated last week at [facility] Anesthesia Plan ASA 3 general (Due to new onset seizure like activity, spoke with neurologist who took care of patient at [facility]. Recommendation by neurology was to give IV Keppra 1gm prior to procedure, but was OK to proceed due to nature of patient's disease process. ) The patient is not a current smoker. Patient was not previously instructed to abstain from smoking on day of procedure. Patient did not smoke on day of procedure. intravenous induction Anesthetic plan and risks discussed with patient. Plan discussed with CAA. Discussed with patient plan to proceed after giving IV Keppra, per neurology recommendations for this procedure. Also discussed with patient that recent new onset seizure activity may place her at increased risk of neuro events in perioperative period. Additional Equipment Requests [facility] 06-21-2024 Note Patient: Bhupendra roberts Procedure Summary Date: 06/21/24 Room / Location: [facility] Anesthesia Start: 1343 Anesthesia Stop: 1444 Procedure: DIAGNOSTIC COLONOSCOPY Diagnosis: Polyp of ascending colon, unspecified type Colonic mass Scheduled Providers: Jacki Rivas MD; MENDEZ Guzman; Florinda Sandoval MD Responsible Provider: Jacki Rivas MD Anesthesia Type: general ASA Status: 3 Anesthesia Post Transport Note Transport to: PACU O2 Route: room air Patient Monitor: direct observation Transport: uneventful Patient condition is: stable [facility] 06-21-2024 Miscellaneous Notes ----- Message from Bailey Alba MD sent at 06/17/2024 2:34 PM EST ----- Please schedule this patient for a follow-up appointment in the resident clinic in 4-6 weeks of discharge Diagnosis: New onset seizures 1st attempt: [employer] contacted patient and left a voicemail offering to schedule in with our clinic for a hospital follow up appointment as we have received a provider message requesting to see patient in office. [employer] provided callback number for scheduling or to address any questions or concerns they may have. 2nd attempt: Left message for patient documented in this [facility] encounter Note ----- Message from Bailey Alba MD sent at 06/17/2024 2:34 PM EST ----- Please schedule this patient for a follow-up appointment in the resident clinic in 4-6 weeks of discharge Diagnosis: New onset seizures [employer] 06-21-2024 Telephone encounter Note 1st attempt: [employer] contacted patient and left a voicemail offering to schedule in with our clinic for a hospital follow up appointment as we have received a provider message requesting to see patient in office. [employer] provided callback number for scheduling or to address any questions or concerns they may have. [facility] [employer] 06-21-2024 Telephone encounter Note 2nd attempt: Left message for patient [facility] [employer] 05-31-2024 History of Present illness Narrative Images from the original note were not included. Bhupendra Rubi 1950 Bhupendra Rubi is a 73 y.o. female presents with chief complaint of Follow-up HPI: HPI patient had her lung biopsy. She is waiting for results on that. She is scheduled to have her repeat colonoscopy on June 21. She is having that done in [place]. She has not having any abdominal pain. She has not having any blood in his stool. 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 I will see her back a week after her colonoscopy. documented in this encounter [facility] 05-31-2024 History of Present illness Narrative Associated [...] follow up. She recently was referred to anisa/onc, pulmonary, and gen surgery for lung mass. 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 Recently had EBUS at [facility], is scheduled for colonoscopy as well. Is following closely with all specialists. There is pending pathology. She reports she is feeling very overwhelmed and uncertain of all of her diagnosis. I did reach out to kerry Wyatt while in office with patient who was [...] nodules; Had EBUS. Following with Dr. Lundberg- Heme/onco closely. Referral sent to GI: Increased activity into ascending colon on PET scan. Had colonoscopy, is scheduled for additional. Pathology reports pending. documented in this encounter [facility] 05-23-2024 Instructions Chris Singh NP - 05/23/2024 10:30 AM EST Follow up with Dr. Lundberg's office this week. Have colonoscopy scheduled. Call if you need anything! documented in this encounter [facility] 05-20-2024 Note Addendum created 03/05 1439 by Marilia Pennington MD Intraprocedure Meds edited [facility] 05-18-2024 Note Patient: Bhupendra roberts Procedure [...] per anesthesia protocol. No notable events documented. [facility] 05-18-2024 Note Patient's significan t other at bedside. He states he was not updated post procedure by Dr. Warren or his fellow Dr. Hamlin. RN notified physician of family's request for update and chest xray was completed, but needs to be read prior to discharge. [facility] 05-18-2024 Note Airway Date/Time: 05/18/2024 12:57 PM Urgency: elective General Information and Staff Patient location during procedure: OR Anesthesiologist: Micky Hilliard MD Resident/BOOKING SUPERVISOR/CAA: Marilia Pennington MD Performed: resident/BOOKING SUPERVISOR/CAA Indications and Patient Condition Indications for airway [...] 1 Number of other approaches attempted: 0 [facility] 05-18-2024 Note Patient: Bhupendra roberts Procedure [...] (+) Moderate COPD (chronic obstructive pulmonary disease) ([facility]/HCC) Clinical information reviewed: Tobacco Allergies Meds Problems [...] Plan discussed with resident. 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 Do not wear perfume, make-up, nail luxembourgish, or lotions on the day of your [...] need to make any changes, please call [phone]. Notify your surgeon if you develop any illness such as a cold, cough, fever, sore throat or vomiting between now and your surgery. Thank you for entrusting us with your care. [facility] Surgical Services Team [facility] 05-11-2024 Evaluation note Diagnosis Onset Date Resolution High grade dysplasia in colonic adenoma acute May 11 1:25pm History of hypotension acute Oc tober 2023 1:25pm Mass of upper lobe of left lung acute May 11 1:25pm Non-small cell lung cancer acute July 28 1:45pm [facility] Work Phone: 1(889) 596-638710-29-2024 History of Present illness Narrative* Javier Villanueva, DO - 05/10/2024 2:30 PM EDT Images from the original note were not included. Bhupendra Rubi 1950 Bhupendra Rubi is a 73 y.o. female presents with chief complaint of Consult (Colon polyp ref'd by Red) HPI: HPI Patient is not exactly sure why she is here. She was told that there might be something bad hercolon and there needs to be a deeper [...] PRN atorvastatin (LIPITOR) 80 mg, Oral, Daily Phcfdvv-Ggpabjbwudg-Dksqmtozvm (Breztri Aerosphere) 160-9-4.8 MCG/ACT aerosol 2 puffs, [...] Infrarenal abdominal aortic aneurysm (AAA) without rupture ([facility]/HCC) CT chest done in 11/02 by Tamera that showed AAA 2.3 cm with possible chronic dissection for which shewas asked to go to ED for CTA [...] invasive adenocarcinoma . I Communicated with her sales representative [employer], he felt this was completely removed. I am sending her pathology to [facility] for 2nd opinion. Patient is having her lung mass worked up with a biopsy in [place] and is supposed to get a 2nd [...] I discussed that with Dr. Moon her sales representative [employer]. [id number] Note Attestation signed by Diana Warren MD [...] Age: 73 y.o. : 1950 Account No.: [id number] Referring physician: Dr. Lundberg Chief complaint: Lung [...] was initiated by the patient and conducted rfh-dnxm-mk-face with use of audio-only real time telephone [...] no pruritus. Physical examination (more content not included)...[facility]09-13-2024 History of Present illness Narrative* Chris Singh NP - 03/25/2024 1:46 PM EDTAssociated Problem(s): Mass of left lung Bronchoscopy done: PET SCAN indicated advancing growth of lung nodules; Following with Dr. Lundberg- Anisa/onco closely. Referral sent to GI: Increased activity into ascending colon on PET scan. Recommended colonoscopy: Having colonoscopy tomorrow * Chris Singh NP - 03/25/2024 1:45 PM EDTAssociated Problem(s): Hypertension (CMS/HCC) Currently taking Checks BP at home; Averages are 120's-130's. Denies orthostatic changes, dizziness, cough, shortness of breath, swelling in extremities. Continue current regimen. Given BP log, advised pt to record BP and bring log back with them to next visit. * Chris Singh NP - 03/24/2024 11:57 AM EDTAssociated Problem(s): Hyperlipidemia (CMS/HCC) Initiated statin therapy 2 weeks ago in addtion to [facility]; Lipid panel elevated. Recheck in 3 months * Chris Singh NP - 03/24/2024 11:30 AM EDT Images from the original note were not included. Subjective Patient ID: Bhupendra Rubi is a 73 y.o. female who presents for Follow-up (1mo F/U). HPI 1 month follow up: Saw Pulmonology- Bronchoscopy done: PET SCAN indicated advancing growth of lung nodules; Following with Dr. Lundberg- Anisa/onco closely. Referral sent to GI: Increased activity into ascending colon on PET scan. Recommended colonoscopy: Having colonoscopy tomorrow ECHO and Holter reviewed with patient; HLD: Initiated statin therapy 2 weeks ago in addtion to [facility]: HTN: Currently taking Checks BP at home; Averages are 120's-130's. Denies orthostatic changes, dizziness, cough, shortness of breath, swelling in extremities. Continue current regimen. Given BP log, advised pt to record BP and bring log back with them to next visit. Cards referral? Review of Systems Objective Physical Exam Assessment/Plan Problem List Items Addressed This Visit Hyperlipidemia (CMS/HCC) Initiated statin therapy 2 weeks ago in addtion to [facility]; Lipid panel elevated. Recheck in 3 months Relevant Orders Lipid panel Hypertension (CMS/HCC) - Primary Currently taking Checks BP at home; Averages are 120's-130's. Denies orthostatic changes, dizziness, cough, shortness of breath, swelling in extremities. Continue current regimen. Given BP log, advised pt to record BP and bring log back with them to next visit. [facility] this [facility]* Patient Instructions* Chris Singh NP - 03/24/2024 11:30 AM EDT Keep all appointments with specialists as scheduled Call if you need anything! documented in this [facility]09-13-2023 Evaluation note* Encounter Date Diagnosis Assessment Notes Treatment Notes Treatment Clinical Notes Mar, Stenosis of carotid artery, unspecified [...] were addressed she understands agrees the plan. [employer] Other 07-31-2023 Evaluation note* Encounter Date Diagnosis Assessment Notes Treatment Notes Treatment Clinical Notes Jan, Abdominal aortic aneurysm (AAA) without rupture, unspecified part (ICD-10 - I71.40) We reviewed her abdominal CT imaging from outside facility at the [facility] which shows AAA 3.4 cm in greatest [...] her risk and is unmotivated to quit. [employer] Other 06-14-2023 Hospital Discharge instructions Patient Education [...] Follow these instructions at home: Medicines Take jhru-peb-wkybfeg and prescription medicines only as told by [...] Watch your condition for any changes. Take ghui-hkk-rkrghof and prescription medicines only as told by [...] provider. Document Revised: 08/17/2020 Document Reviewed: 11/07/2019 [employer]. Patient Education 2022 [employer]. Follow Up Care 12/15/2022 11:25:23 With:Brigette Martini CNP Address: When:1 month [facility] 11-28-2022 Hospital Discharge instructions [...] fried and sweet foods. General instructions Take hnxz-qcb-vtxkyqy and prescription medicines only as told by [...] 04/25/2010 Document Revised: 10/20/2019 Document Reviewed: 07/15/2018 [employer]. Patient Education 2019 [employer]. Follow Up Care 05/09/2022 11:00:12 With:TRISTA FARFAN, Armando Mckay, URL Address: [facility] [address], [place] [address]- When: Unknown [facility] evaluation + Plan note No data available for this section [facility] evaluation + Plan note Future Appointments Appointment Date:12/29/2022 10:30:00 AM Scheduled Provider: Location:.[facility] Appointment Type:US Abdominal/Pelvis (FT) Appointment Date:02/18/2023 08:15:00 AM Scheduled Provider: Location:[facility] Appointment Type:Surgery FT Future Scheduled Tests Radiology* US Abdomen, Limited 12/29/22 [facility] Evaluation + Plan note Future Appointments Appointment Date:02/18/2023 08:15:00 AM Scheduled Provider: Location:[facility] Future Appointments Appointment Date:01/07/2023 11:00:00 AM Scheduled Provider: Location:.[facility] Appointment Type:CT Abdomen (FT) Appointment Date:02/18/2023 08:15:00 AM Scheduled Provider: Location:[facility] Appointment Type:Surgery FT Future Scheduled Tests Radiology* CT Abdomen w/ Contrast [facility] Diagnosis RLS (restless legs syndrome)- Primary Restless legs syndrome (RLS) Moderate COPD (chronic obstructive pulmonary disease) (CMS/HCC) [facility] noteNo assessment information available[facility] Work Phone: evaluation note* Diagnosis Onset Date Resolution Status Abdominal aortic aneurysm (A AA) 3.0 cm to 5.0 cm in diameter in female acute [facility] Work Phone: Evaluation note* Diagnosis Tobacco dependency- Primary Tobacco use disorder Hyperlipidemia, unspecified hyperlipidemia type ([facility]/HCC) H/O: CVA (cerebrovascular accident) Primary hypertension ([facility]/HCC) Unspecified essential hypertension Moderate COPD (chronic obstructive pulmonary disease) ([facility]/HCC) RLS (restless legs syndrome) Restless legs syndrome (RLS) Peripheral polyneuropathy Screening mammogram for breast cancer Medicare annual wellness visit, subsequent RLS (restless legs syndrome)- Primary Restless legs syndrome (RLS) Peripheral polyneuropathy Moderate COPD (chronic obstructive pulmonary disease) ([facility]/HCC) Hyperlipidemia, unspecified hyperlipidemia type ([facility]/HCC) Primary hypertension ([facility]/HCC) Unspecified essential hypertension Chronic abdominal pain Abdominal pain, unspecified site Moderate COPD (chronic obstructive pulmonary disease) ([facility]/HCC)- Primary Primary hypertension ([facility]/HCC) Unspecified essential hypertension Moderate COPD (chronic obstructive pulmonary disease) ([facility]/HCC)- Primary Mass of left lung Primary hypertension ([facility]) Unspecified essential hypertension Syncope and collapse Mass of left lung- Primary Mass of left lung- Primary Primary hypertension ([facility]/HCC)- Primary Unspecified essential hypertension Moderate COPD (chronic obstructive pulmonary disease) ([facility]/HCC) Hyperlipidemia, unspecified hyperlipidemia type ([facility]/HCC) Gastroesophageal reflux disease without esophagitis Esophageal reflux H/O: CVA (cerebrovascular accident) Wellness examination History of colon polyps Chronic abdominal pain Abdominal pain, unspecified site Primary hypertension ([facility]/HCC)- Primary Unspecified essential hypertension Hyperlipidemia, unspecified hyperlipidemia type ([facility]/HCC) Gastroesophageal reflux disease without esophagitis Esophageal reflux [facility]* Diagnosis Tobacco dependency- Primary Tobacco use disorder Hyperlipidemia, unspecified hyperlipidemia type ([facility]/HCC) H/O: CVA (cerebrovascular accident) Primary hypertension ([facility]) Unspecified essential hypertension Moderate COPD (chronic obstructive pulmonary disease) ([facility]/HCC) RLS (restless legs syndrome) Restless legs syndrome (RLS) Peripheral polyneuropathy Screening mammogram for breast cancer Medicare annual wellness visit, subsequent RLS (restless legs syndrome)- Primary Restless legs syndrome (RLS) Peripheral polyneuropathy Moderate COPD (chronic obstructive pulmonary disease) ([facility]/HCC) Hyperlipidemia, unspecified hyperlipidemia type ([facility]/HCC) Primary hypertension ([facility]/HCC) Unspecified essential hypertension Chronic abdominal pain Abdominal pain, unspecified site Moderate COPD (chronic obstructive pulmonary disease) ([facility]/HCC)- Primary Primary hypertension (CMS/HCC) Unspecified essential hypertension [...] of ascending colon documented in this encounter [facility]* Diagnosis Tobacco dependency- Primary Tobacco [...] left lung- Primary documented in this encounter [facility]* Diagnosis Tobacco dependency- [...] Primary Mass of left lung Primary hypertension ([facility]/HCC) Unspecified essential hypertension Syncope and collapse Mass of left lung- Primary Mass of left lung- Primary Primary hypertension (CMS/HCC)- Primary Unspecified essential hypertension Moderate COPD (chronic obstructive pulmonary disease) ([facility]/HCC) Hyperlipidemia, unspecified hyperlipidemia type ([facility]/HCC) Gastroesophageal reflux disease without esophagitis Esophageal reflux H/O: CVA (cerebrovascular accident) Wellness examination History of colon polyps Chronic abdominal pain Abdominal pain, unspecified site Primary hypertension ([facility]/HCC)- Primary Unspecified essential hypertension Hyperlipidemia, unspecified hyperlipidemia type ([facility]/HCC) Mass of left lung- Primary Carcinoma in situ of ascending colon- Primary [facility]* Diagnosis Primary hypertension ([facility]/HCC)- Primary Unspecified essential hypertension Hyperlipidemia, unspecified hyperlipidemia type ([facility]/HCC) [facility]* Diagnosis Tobacco dependency- Primary Tobacco use disorder Hyperlipidemia, unspecified hyperlipidemia type ([facility]/HCC) H/O: CVA (cerebrovascular accident) Primary hypertension (CMS/HCC) Unspecified essential hypertension Moderate COPD (chronic obstructive pulmonary disease) ([facility]/HCC) RLS (restless legs syndrome) Restless legs syndrome (RLS) Peripheral polyneuropathy Screening mammogram for breast cancer Medicare annual wellness visit, subsequent RLS (restless legs syndrome)- Primary Restless legs syndrome (RLS) Peripheral polyneuropathy Moderate COPD (chronic obstructive pulmonary disease) ([facility]/HCC) Hyperlipidemia, unspecified hyperlipidemia type ([facility]/HCC) Primary hypertension (CMS/HCC) Unspecified essential hypertension Chronic [...] type (CMS/HCC) Mass of left lung- Primary Moderate COPD (chronic obstructive pulmonary disease) (CMS/HCC) documented in [facility] encounter [facility]* Diagnosis Moderate COPD (chronic obstructive pulmonary disease) (CMS/HCC)- Primary [facility]* Diagnosis Mixed hyperlipidemia (CMS/HCC)- Primary Mixed hyperlipidemia Hyperlipidemia, unspecified hyperlipidemia type (CMS/HCC) [facility]* [...] hypertension Moderate COPD (chronic obstructive pulmonary disease) ([facility]/HCC) Hyperlipidemia, unspecified hyperlipidemia type (CMS/HCC) Gastroesophageal reflux disease without esophagitis Esophageal reflux H/O: CVA (cerebrovascular accident) Wellness examination History of colon polyps Chronic abdominal pain Abdominal pain, unspecified site Primary hypertension (CMS/HCC)- Primary Unspecified essential hypertension Hyperlipidemia, unspecified hyperlipidemia type (CMS/HCC) Mass of left lung- Primary Medicare annual wellness visit, subsequent- Primary Other polyneuropathy Psychophysiological insomnia Persistent disorder of initiating or maintaining sleep [facility]* Diagnosis Tobacco dependency- Primary Tobacco use disorder Hyperlipidemia, unspecified hyperlipidemia type ([facility]/HCC) H/O: CVA (cerebrovascular accident) Primary hypertension ([facility]/HCC) Unspecified essential hypertension Moderate COPD (chronic obstructive pulmonary disease) ([facility]/HCC) RLS (restless legs syndrome) Restless legs syndrome (RLS) Peripheral polyneuropathy Screening mammogram for breast cancer Medicare annual wellness visit, subsequent RLS (restless legs syndrome)- Primary Restless legs syndrome (RLS) Peripheral polyneuropathy Moderate COPD (chronic obstructive pulmonary disease) ([facility]/HCC) Hyperlipidemia, unspecified hyperlipidemia type (CMS/HCC) Primary hypertension ([facility]/HCC) Unspecified essential hypertension Chronic abdominal pain Abdominal pain, unspecified site Moderate COPD (chronic obstructive pulmonary disease) (CMS/HCC)- Primary Primary hypertension ([facility]/HCC) Unspecified essential hypertension Moderate COPD (chronic obstructive pulmonary disease) (CMS/HCC)- Primary Mass of left lung Primary hypertension (CMS/HCC) Unspecified essential hypertension Syncope and collapse Mass of left lung- Primary Mass of left lung- Primary Primary hypertension ([facility]/HCC)- Primary Unspecified essential hypertension Moderate COPD (chronic obstructive pulmonary disease) ([facility]/HCC) Hyperlipidemia, unspecified hyperlipidemia type (CMS/HCC) Gastroesophageal reflux disease without esophagitis Esophageal reflux H/O: CVA (cerebrovascular accident) Wellness examination History of colon polyps Chronic abdominal pain Abdominal pain, unspecified site Primary hypertension (CMS/HCC)- Primary Unspecified essential hypertension Hyperlipidemia, unspecified hyperlipidemia type ([facility]/HCC) Mass of left lung- Primary Alteration of awareness History of stroke Transient ischemic attack (TIA), and cerebral infarction without residual deficits documented in this encounter [facility]* Diagnosis Tobacco dependency- Primary Tobacco use disorder Hyperlipidemia, unspecified hyperlipidemia type ([facility]/HCC) H/O: CVA (cerebrovascular accident) Primary hypertension (CMS/HCC) [...] type (CMS/HCC) Mass of left lung- Primary Alteration of awareness- Primary History of stroke Transient ischemic attack (TIA), and cerebral infarction without residual deficits documented in this encounter [facility] and physical note Author Mikhail Moon [facility] March 25, 2024 10:35am Note Date/Time March 25, 2024 10:35am [facility] [address] [place] [address] Gastroenterology H&P Signed Patient: Bhupendra Rubi MR#: [id number] : 1950 Acct:[id number] Age/Sex: 73 / F Adm Date: 4 Loc: Room: Type: [facility] Attending Dr: Mikhail Moon MD Copies [...] signed by Mikhail Moon MD> 03/25/24 1035 [facility] [employer] Work Phone: History general Narrative - Reported* Type Description Date Medical History GERD Medical History hypercholesterolemia Surgical History cholecystectomy Surgical History tubal ligation Surgical History shoulder surgery Hospitalization History see above [employer] Other History general Narrative - Reported* Type Description Date Medical History GERD Medical History hypercholesterolemia Medical History Carotid stenosis Surgical History cholecystectomy Surgical History tubal ligation Surgical History shoulder surgery Hospitalization History see above [employer] Other Hospital Discharge instructions No data available for this section [facility] Additional Instructions Stop your blood pressure medicine. Follow-up with your doctor without fail for reevaluation of blood pressure and left lung mass.[facility] Work Phone: Hospital Discharge instructionsAmbulatory Orders* Referral to General Surgery Location: None Selected [facility] Work Phone: InstructionsNot on filedocumented in this encounter [facility] filedocumented in this encounter [facility] No data available for this section [facility] Summary Purpose Family History No Family History [...] Date/ Time Advance Directives No March 4:03pm Date Activated Date Inactivated Comments 06/15/2024 1:10 PM 06/17/2024 7:37 PM Advance Directive Response Recorded Date/ Time Advance Directives No March 3:03pm Chief Complaint and Reason for Visit Chief [...] D12.6 NEW - benign neoplasm of colon Chief Complaint Admit Date NEW - benign neoplasm of colon April 142023 1:25pm New Patient, Lung Cancer July 28 1:45pm BENIGN NEOPLASM OF COLON July 28 1:50pm Reason for Visit Admit Date High grade dysplasia in colonic adenoma May 11, 2024 1:25pm History of hypotension May 11 1:25pm Mass of upper lobe of left lung May 11, 2024 1:25pm Non-small cell lung cancer July 28, 2024 1:45pm Additional Source Comments INFORMATION SOURCE (unrecogn ized section and content) DATE CREATED AUTHOR 11/24/2022 [facility] DATE CREATED AUTHOR AUTHOR'S ORGANIZ ATION 03/03/2024 [facility] DATE CREATED AUTHOR AUTHOR'S ORGANIZ ATION 07/24/2024 [facility] DATE CREATED AUTHOR AUTHOR'S ORGANIZ ATION 09/27/2024 [facility] DATE CREATED AUTHOR AUTHOR'S ORGANIZ ATION 10/01/2024 [facility] Patient Care team informatio n (unrecognized section and content) Team Status: Active Member Role Status Dates VONDA Hinton Primary Care Provider Nestor tiluis fernando Team Status: Inactive Member Role Status Dates Shaikh Aung MD Primary Care Provider Active Start: May 11, 2024 End: May 11, 2024 Nitza Russell MD Attending Provider Active Start: May 11, 2024 End: May 11, 2024 Mikhail Moon MD Referring Provider Active Start: May 11, 2024 End: May 11, 2024 Team Status: Active Member Role Status Dates Shaikh Aung MD Primary Care Provide r, Referring Provider Active Start: June 13, 2024 End: June 14, 2024 Keegan Comer DO Attending Provider Active Sta rt: June 13, 2024 End: June 14, 2024 Team Status: Inactive Member Role Status Dates Judit Martini MD Attending Provider Active Start: July 28, 2024 End: July 28, 2024 SANDRA HintonC Primary Care Provider Ac tive Start: July 28, 2024 End: July 28, 2024 Eyrn Lundberg MD Referring Provider Active St art: July 28, 2024 End: July 28, 2024 Team Status: Active Member Role Status Angelica Horan MD Primary Care Provider Active Start: July 28, 2024 Nitza Russell MD Attending Provider Active Start: July 28, 2024 Mikhail Moon MD Referring Provider Active Start: July 28, 2024 Calender Roll Press Operator Relationship Specialty Start Date End Date Chris Singh, VEHICLE WASHER-BEHAVIORIST [address] [place] [address] PCP - General Nurse Practitioner 06/13/24 [employer] Operator Relationship Specialty Start Date End Date Charanjit Chen MD [address] [place] [address] PCP - General Family Medicine 02/11/24 Chris Singh NP [address] [place] [address] Nurse Practitioner Family Medicine 02/11/24 Anne Hartley LPN Licensed Practical Nurse [facility] Medicine 03/25/24 Team Status: Active Member Role Status Dates [...] SHAIKH HORAN MD Address: Address: [address] [place] [address] Team Status: Active Member Role Status Dates Shaikh Aung MD Primary Care Provider Active Team Status: Inactive Member Role Status Dates Shaikh Aung MD Primary Care Provider Active Start: December 27, 2023 End: December 27, 2023 Bernardino Bhakta MD Emergency Provider Active St art: December 27, 2023 End: December 27, 2023 Calender Roll Press Operator Relationship Specialty Start Date End Date Shaikh Horan MD PCP - General Internal Medicine 01/26/23 Shaikh Horan MD [address] [place] [address] PCP - Devoted 04/12/23 Personnel Name: SHAIKH HORAN Address: Address: [address] [place] [address] REASON FOR VISIT (unrecogniz ed section and content) Reason Onset Date Comments Med Refill 05/02/2024 Reason Comments Consult Colon polyp ref'd by Red Specialty Diagnoses / Procedures Referred By Dionne t Referred To Contact General Surgery Diagnoses Benign neoplasm of colon, unspecified Procedures [place] OFFICE/OUTPATIENT NEW HIGH MDM 60 MINUTES Mikhail Moon MD [address] [address] Phone: tel: fax: [facility] [address] [place] [address] Phone: tel: fax: Referral ID Status Reason Start Date Expiration Date V isits Requested Visits Authorized [id number] Closed Specialty Services Required 04/11/2024 10/08/2024 1 1 Reason Comments Follow-up Reason Comments Follow-up 1mo F/U Reason Onset Date Comments Hospital Follow-up 06/21/2024 Reason Onset Date Comments lacosamide (VIMPAT) 07/18/2024 Reason Comments Medicare Annual Wellness Visit Subsequen t Reason Comments Seizures Specialty Diagnoses / Procedures Referred By Contac t Referred To Contact Neurology Diagnoses Other seizures ([facility]) Procedures [place] OFFICE/OUTPATIENT NEW LOW MDM 30 MINUTES Eryn Lundberg MD [address] [place] [address] Phone: tel: fax: Romel [place] MD [address] [place] [address] Phone: tel: fax: Referral ID Status Reason Start Date Expiration Date V isits Requested Visits Authorized [id number] Closed Consult and Treat 07/22/2024 01/18/2025 1 1 Goals (unrecognized section and content) [...] BE BASED ON THE PRIMARY CLINICAL RECORDS. [email or web address] provides no warranty or guarantee of the accuracy or completeness of information in this document.
[2024-10-04] MEDS: TRAZODONE HCL 50 MG TABLET 100 MG PO (21:38)
[2024-10-04] MEDS: GABAPENTIN 300 MG CAPSULE PO (21:38)
[2024-10-04] MEDS: ACETAMINOPHEN 500 MG TABLET 1000 MG PO (21:38)
[2024-10-04] MEDS: HYDRALAZINE HCL 20 MG/ML VIAL 10 MG IVP (21:39)
--- NOTE | 2024-10-04 22:30 | ECG_ITS ---
[facility] Test Date: 2024-10-04 Pat Name: BHUPENDRA MIRANDA Department: Room: [facility] Gender: Female Can Sterilizer: : 1950 Requested By: [id number] Order Number: [id number] Reading MD: ANITRA SOARES M.D. Measurements Intervals [place] Rate: 71 P: 67 MN: 181 QRS: -44 QRSD: 86 T: 78 QT: 399 QTc: 436 Interpretive Statements SINUS RHYTHM Cannot rule out inferior myocardial infarction, probably old Abnormal ECG Compared to ECG 10/04/2024 14:30:19 Borderline criteria for inferior myocardial infarction are now present Electronically Signed On 10-05-2024 7:46:22 EDT by ANITRA SOARES M.D.
[2024-10-04] MEDS: 0.9 % SODIUM CHLORIDE 1,000 ML 1000 ML IV (22:55)
--- NOTE | 2024-10-04 23:34 | PC.NURSE ---
2209- pt called out stating that something is happening RN and MARKETING ASSIST[employer] in room to assist. Pt hyperventilating and stating she had pain on her right side. when RN asked patient to explain the pain she said she did not know. Lung sounds were clear anterior and posterior bilaterally. Vital signs were BP 111/59; HR 95; 95% room air and respirations 40. 2218 Night hospitalist was notified of change in condition 2231 night hospitalist placed orders for EKG, CXR, and labs 2239- pt got her self up to the bathroom. then called out stating she was dizzy, nauseous, and light headed. RN then stood with the patient while she was on the toilet while MARKET[employer]IST[employer] got a wheelchair to get the patient back to bed. At this point the patient's speech became garbled and rambling and not making sense. RN and MARKETING [employer]IST[employer] lifted patient off the toilet and onto the wheelchair then transferred her back into the bed. 2244- BP 67/42 pt lethargic and unresponsive. 2246- night hospitalist updated 2249- EKG completed 2251- [facility]- CRX completed 2255- nursing supervisor intermediates and ER physician in room to assess patient. 2304- NS bolus (100ml) started; pt placed on 2L Nasal cannula increased from 90% to 96%; respirations down to 20 2308- labs drawn 2309- BP 86/47; HR 73; 95% 2 L nasal cannula; pt still struggling to find her words 2311- night hospitalist updated 2314- [facility] 2316- IV placed in R forearm 2318- RN asked night [facility] hospitalist if she wanted us to call tele neuro again and she stated no 2319- night hospitalist ordered head CT; pt states she feels like her heart is beating out of her chest she still feels dizzy and has a headache, but she is vague on where in her head it hurts; BP 90/54; HR 76; respirations 16; 96% 2L nasal cannula 2329- pt down for CT head 2347- BP 100/56; HR 84; 96% 2 L nasal cannula; respirations 16; pt states her head feels cloudy 2349- night hospitalist notified of critical D-dimer 1.13 2350- [facility] hospitalist ordered CTA chest
[2024-10-04 23:44] LABS: Alanine Aminotransferase 16 U/L (14-59); Albumin Globulin Ratio 0.9; Albumin Level 2.9 g/dL (3.4-5.0); Alkaline Phosphatase 108 U/L (46-116); Anion Gap 14.7; Aspartate Amino Transferase 10 U/L (15-37); BUN Creatinine Ratio 8.9; Bilirubin Total 0.3 mg/dL (0.2-1.0); Calcium 8.9 mg/dL (8.5-10.1); Carbon Dioxide 26.7 mmol/L (21.0-32.0); Chloride 105 mmol/L (98-107); Estimated GFR (African America 39 (>=60 mL/min/1.73m^2); Estimated GFR (Non-African Ame 32 (>=60 mL/min/1.73m^2); Globulin 3.2 g/dL; Glucose 173 mg/dL (74-106); Magnesium 1.6 mg/dL (1.8-2.4); Potassium 3.4 mmol/L (3.5-5.1); Sodium 143 mmol/L (136-145); Total Protein 6.1 g/dL (6.4-8.2); Troponin I High Sensitivity 6.6 pg/mL (4.0-51.3)
[2024-10-04 23:47] LABS: D Dimer 1.13 mg/L FEU (<=0.59)
[2024-10-05] VITALS (18 sets, daily range): BP systolic 99–198; BP diastolic 60–94; PULSE 77–111; TEMP 36.2–37; O2SAT 90–97
--- NOTE | 2024-10-05 | MR_ITS ---
The [address] [address] Patient Name: BHUPENDRA MIRANDA MRN: [id number] date: 1950 Sex: F Assigned Patient Location: [place] Current Patient Location: [place] Accession/Order Number: [id number] Exam Date: 10/05/2024 12:54 Report Date: 10/05/2024 13:03 At the request of: STARLA ZAVALA MD Procedure: MR head/brain wo con EXAMINATION: MRI OF THE BRAIN WITHOUT CONTRAST CLINICAL HISTORY: Expressive aphasia, weakness, Lung cancer COMPARISON: CT head 10/05/2024 and MRI brain 06/14/2024 TECHNIQUE: Multiecho, multiplanar imaging of the brain was performed without enhancement. Findings: No restricted diffusion to suggest acute territorial infarct. Mild generalized involutional changes of the brain parenchyma identified with prominence of the ventricles and sulci. Evidence of encephalomalacia involving left posterior frontal and involving the left parietal lobe and temporal lobe related to remote left MCA distribution stroke with associated ex vacuo dilatation of the temporal horn and trigone left lateral ventricle.. Remote stroke right frontal lobe with resultant gliosis. Linear foci remote stroke involving the left cerebellum. Remote strokes both caudate nuclei right greater than left. Otherwise moderate periventricular and subcortical T2 prolongation suggestive of chronic small vessel ischemic disease. Remote GRE signal left MCA stroke. Major intracranial arterial vascular flow voids are preserved. Mild to moderate prominent left-sided paranasal sinus mucosal thickening. MR/MR head/brain wo con IMPRESSION: Moderate chronic small vessel ischemic disease with evidence of remote bilateral MCA strokes, greatest on the left. No evidence of acute stroke or midline shift. Impression dictated by: John Meyer M.D.10/05/2024 1:03 PM Dictation Location: [place] [address] Electronically authenticated by: [id number] Y Date: 10/05/2024 13:03
[2024-10-05] MEDS: MAGNESIUM SULFATE IN WATER 2 GM/50 ML PREMIX IV (00:50)
--- NOTE | 2024-10-05 01:00 | PC.NURSE ---
0000- IV mag ordered 0001- CT head results sent to night hospitalist 0007- NS bolus completed; BP 103/57 0009- radiology called stating they are unable to use more contrast since she had a CTA of the head and neck within 24 hours. night hospitalist made aware and stated to complete the scan when she can have the contrast again 0018- BP 101/61; HR 87: 93% 2 L nasal Cannula; respirations 16 0040- BP 94/57; 92% 2 L; HR 78; respirations 14 0051- 94/57; 91% 2 L; HR 76; respirations 14
[2024-10-05] MEDS: 0.9 % SODIUM CHLORIDE 1,000 ML 125 ML IV ×3 (01:59→20:48)
[2024-10-05 06:33] LABS: Anion Gap 7.5; BUN Creatinine Ratio 13.2; C Reactive Protein 1.03 mg/dL (<=0.50); Calcium 8.6 mg/dL (8.5-10.1); Carbon Dioxide 29.6 mmol/L (21.0-32.0); Chloride 108 mmol/L (98-107); Estimated GFR (African America 53 (>=60 mL/min/1.73m^2); Estimated GFR (Non-African Ame 44 (>=60 mL/min/1.73m^2); Glucose 109 mg/dL (74-106); Potassium 4.1 mmol/L (3.5-5.1); Sodium 141 mmol/L (136-145)
[2024-10-05 06:42] LABS: Chol HDL Ratio 3.4; Cholesterol 176 mg/dL (<=200); HDL Cholesterol 52 mg/dL (40-60); Triglycerides 165 mg/dL (<=150)
[2024-10-05 06:56] LABS: Estimated Average Glucose 134 mg/dL; Glycohemoglobin A1C 6.3 % (4.5-6.2)
[2024-10-05] MEDS: ATORVASTATIN CALCIUM 40 MG TABLET 80 MG PO (08:59)
[2024-10-05] MEDS: ASPIRIN 81 MG TABLET.DR PO (09:00)
[2024-10-05] MEDS: FERROUS SULFATE 325 MG TABLET PO (09:00)
[2024-10-05] MEDS: PANTOPRAZOLE SODIUM 40 MG TABLET.DR PO (09:00)
[2024-10-05] MEDS: FOLIC ACID 1 MG TABLET PO (09:02)
--- NOTE | 2024-10-05 10:20 | CM.NOTE ---
Rounds made with Dr. Chen, RN reports change in assessment. Dr. Chen assess pt and stroke alert called d/t change in symptoms. Dr. Chen spoke with neurologist on telephone for further recommendations. Pt awaiting MRI for today and will have stat CT of head. No discharge today. Pt will have PT , OT and speech evaluations today for discharge planning.
[2024-10-05 10:40] LABS: Glucometer 96 mg/dL (74-106)
--- NOTE | 2024-10-05 11:36 | P.HP_ITS ---
HPI H&P: HPI History of Present Illness Chief complaint: POSSIBLE STROKE Expressive aphasia arm weakness Narrative: 74 y/o female with a history of prior stroke resulting in right sided weakness and expressive aphasia sent to ER from oncology for worsening symptoms. History of lung cancer and completed radiation. Seen for follow up and oncology was concerned of worsening weakness. Reports increased falls over past few weeks and pain in right side. Follows with neurology for seizure disorder. Last visit was 09/26/24 and at that time vimpat was decreased and added lamictal. To ER and CT head showed old stroke but no acute change. CTA head and neck showed narrowing but no occlusion. Admitted for treatment. BP elevated in hospital and given IV hydralazine. BP decreased and became hypotensive. [place] off and lightheaded. Developed dysphasia and not able to speak. Developed worsening weakness on right side. CT head negative. Developed SOB and placed on oxygen. Continued to have weakness and now weakness in leg which was not present on admission. Opioid HPI Opioid Management Most Recent Pain and Opioid Data: Last Pain Scale 0 10/05/24 10:00 10/05/24 Last Pain Assessment 10/05/24 10:00 Last MAR Pain Assessment 10/05/24 00:43 Last ORT Total Score 2 10/04/24 17:22 10/04/24 Last ORT Risk Category Low Risk 10/04/24 17:22 10/04/24 Ur Phencyclidine Scrn Positive (NEGATIVE) A 06/13/24 02:08 Review of Systems ROS Constitutional Denies: fever, chills or fatigue Cardiovascular Denies: chest pain, palpitations or edema Respiratory Reports: shortness of breath; Denies: cough or wheezing Gastrointestinal Denies: abdominal pain, nausea, vomiting or diarrhea Genitourinary Denies: painful urination Neurological Reports: headache, weakness in extremities and slurred speech [facility] Medical History (Updated 10/05/24 @ 11:17 by Charanjit Chen MD) COPD (chronic obstructive pulmonary disease) ?J44.9 - Chronic obstructive pulmonary disease, unspecified (ICD-10) Expressive aphasia ?R47.01 - Aphasia (ICD-10) Right arm weakness ?R29.898 - Other symptoms and signs involving the musculoskeletal system (ICD-10) Altered mental status ?R41.82 - Altered mental status, unspecified (ICD-10) Acute hypoxemic respiratory failure ?J96.01 - Acute respiratory failure with hypoxia (ICD-10) Witnessed seizure-like activity ?R56.9 - Unspecified convulsions (ICD-10) Metabolic encephalopathy ?G93.41 - Metabolic encephalopathy (ICD-10) Basal pneumonia of both lungs ?J18.9 - Pneumonia, unspecified organism (ICD-10) H/O stroke without residual deficits ?Z86.73 - Personal history of transient ischemic attack (TIA), and cerebral infarction without residual deficits (ICD-10) Neck pain ?M54.2 - Cervicalgia (ICD-10) Fibromyalgia ?M79.7 - Fibromyalgia (ICD-10) Back pain ?M54.9 - Dorsalgia, unspecified (ICD-10) Anemia ?D64.9 - Anemia, unspecified (ICD-10) Mass of right parotid gland ?K11.8 - Other diseases of salivary glands (ICD-10) AAA (abdominal aortic aneurysm) ?I71.40 - Abdominal aortic aneurysm, without rupture, unspecified (ICD-10) Bipolar disorder ?F31.9 - Bipolar disorder, unspecified (ICD-10) Dyspnea on exertion ?R06.09 - Other forms of dyspnea (ICD-10) Pulmonary nodule ?R91.1 - Solitary pulmonary nodule (ICD-10) Emphysema lung ?J43.9 - Emphysema, unspecified (ICD-10) Restless leg ?G25.81 - Restless legs syndrome (ICD-10) GERD (gastroesophageal reflux disease) ?K21.9 - Gastro-esophageal reflux disease without esophagitis (ICD-10) Constipation ?K59.00 - Constipation, unspecified (ICD-10) Diarrhea ?R19.7 - Diarrhea, unspecified (ICD-10) IBS (irritable bowel syndrome) ?K58.9 - Irritable bowel syndrome without diarrhea (ICD-10) High cholesterol ?E78.00 - Pure hypercholesterolemia, unspecified (ICD-10) Mass of left lung (2023) ?R91.8 - Other nonspecific abnormal finding of lung field (ICD-10) Right arm weakness ?R29.898 - Other symptoms and signs involving the musculoskeletal system (ICD-10) CVA (cerebral vascular accident) (2013) ?I63.9 - Cerebral infarction, unspecified (ICD-10) Surgical History History of colonoscopy ?Z98.890 - Other specified postprocedural states (ICD-10) History of hysterectomy ?Z90.710 - Acquired absence of both cervix and uterus (ICD-10) History of cholecystectomy ?Z90.49 - Acquired absence of other specified parts of digestive tract (ICD- 10) History of repair of rotator cuff ?Z98.890 - Other specified postprocedural states (ICD-10) History of arthroscopy of shoulder ?Z98.890 - Other specified postprocedural states (ICD-10) History of tubal ligation ?Z98.51 - Tubal ligation status (ICD-10) Family History Other Family history of DVT Family history of lung cancer Family history of stroke Social History (Updated 10/04/24 @ 17:45 by Indira Meyers RN) Within the past year, how often did you have a drink containing alcohol: monthly or less Within the past year, how often did you have six or more drinks on one occasion: never Smoking status: Former smoker Second hand tobacco smoke exposure: No Non-prescribed substance use: denies use Previous occupational history: [employer] Known occupational exposures/hazards: No Highest level of school completed/degree received: 9th grade Are you now , , , , never or living with a partner: living with partner In a typical week, how many times do you talk on the telephone with family, friends, or neighbors: 3 or more times per week Little interest or pleasure in doing things: not at all Feeling down, depressed, or hopeless: not at all Feel stressed/tense/nervous/anxious/difficulty sleeping: only a little Meds Home Medications and Allergies Home Medications ?Medication ?Instructions ?Recorded ?Confirmed ?Type albuterol sulfate 90 mcg/actuation 2 inh inhalation Q4H PRN shortness 03/02/24 10/04/24 History aerosol inhaler of breath or wheezing aspirin 81 mg tablet,delayed 81 mg PO DAILY 03/02/24 10/04/24 History release (Adult Aspirin Regimen) atorvastatin 80 mg tablet 80 mg PO DAILY 03/02/24 10/04/24 History budesonide 160 mcg-glycopyr 9 2 inh inhalation BID 03/02/24 10/04/24 History mcg-formot 4.8 mcg/actuation HFA inhaler (Breztri Aerosphere) gabapentin 300 mg capsule 300 mg PO Q8H 03/02/24 10/04/24 History linaclotide 145 mcg capsule 145 mcg PO DAILY PRN diarrhea 03/02/24 10/04/24 History (Linzess) pantoprazole 40 mg tablet,delayed 40 mg PO DAILY 03/02/24 10/04/24 History release trazodone 100 mg tablet 100 mg PO QPM 03/02/24 10/04/24 History ferrous sulfate 325 mg (65 mg 325 mg PO DAILY 06/13/24 10/04/24 History iron) tablet,delayed release folic acid 1 mg tablet 1 mg PO DAILY 06/13/24 10/04/24 History lacosamide 100 mg tablet 100 mg PO Q12H 10/05/24 10/05/24 History lacosamide 150 mg tablet 150 mg PO Q12H 10/05/24 10/05/24 History Allergies Allergy/AdvReac Type Severity Reaction Status Date / Time No Known Drug Allergies Allergy Verified 10/04/24 14:18 Exam Constitutional Vital Signs, click to edit/add: Last Vital Signs Temp 97.8 F 10/05/24 07:29 Pulse 78 10/05/24 10:00 Resp 18 10/05/24 08:32 BP 156/92 H 10/05/24 07:29 Pulse Ox 95 10/05/24 11:34 O2 Del Method Nasal Cannula 10/05/24 11:34 O2 Flow Rate 1 10/05/24 07:29 Documenting provider has reviewed patient's vital signs: yes Common normals: no apparent distress, oriented x3 and alert HENMT Common normals: normocephalic Eye Common normals: PERRL and EOMs intact bilaterally Respiratory Common normals: normal respiratory effort Auscultation: diminished lung sounds Cardio Common normals: regular rate, regular rhythm, no gallops, no murmurs and no rub GI Common normals: Normal to inspection, nondistended, normoactive bowel sounds present and non-tender Extremity Common normals: no pedal edema Neuro Motor exam: strength 5/5 throughout (Weakness in right arm and leg about 3/5, 5/5 on left) Results Labs Labs: Short CBC 10/04/24 Range/Units 14:35 WBC 9.3 (4.0-11.0) 10^3/uL Hgb 13.4 (12.0-16.0) g/dL Hct 41.6 (36.0-48.0) % Plt Count 374 (150-450) 10^3/uL BMP 10/04/24 10/04/24 10/05/24 14:35 23:09 05:45 Sodium 139 143 141 Potassium 3.3 L 3.4 L 4.1 Chloride 103 105 108 H Carbon Dioxide 27.9 26.7 29.6 BUN 14.0 14.0 16.0 Creatinine 1.02 1.58 H 1.21 H Glucose 97 173 H 109 H Calcium 9.0 8.9 8.6 Liver Function 10/04/24 10/04/24 Range/Units 14:35 23:09 Total Bilirubin 0.3 0.3 (0.2-1.0) mg/dL AST 11 L 10 L (15-37) U/L ALT 18 16 (14-59) U/L Alkaline Phosphatase 119 H 108 (46-116) U/L Albumin 3.2 L 2.9 L (3.4-5.0) g/dL Urine 10/04/24 Range/Units 15:40 Urine Color Lt. 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 Episodes of aphasia and increased weakness on right side. CT head ordered due to worsening symptoms. Tele-stroke consulted and awaiting MRI. If no bleed will load with plavix and continue aspirin. Resumed home medication including vimpat and lamictal. Developed SOB and check CTA chest. Add solu-medrol for likely COPD exacerbation. Will change to inpatient status due to worsening symptoms.
--- NOTE | 2024-10-05 12:39 | SWNOTE1 ---
SW met with pt to discuss dc needs. SW and pt were talking about recommendations of SNF for a short time. SW explained this would be under her insurance. Pt then voiced she was feeling dizzy. SW did ask if she needed a nurse. Pt then stated not right now. As SW and pt continued to talk, nurse came in. At that time nurse and student assisted pt back to bed. SW to stop back in later as the doctor came in as well.
[2024-10-05] MEDS: LAMOTRIGINE 100 MG TABLET 150 MG PO (12:53)
[2024-10-05] MEDS: LACOSAMIDE 50 MG TABLET 100 MG PO ×2 (12:53→20:48)
[2024-10-05] MEDS: ACETAMINOPHEN 500 MG TABLET 1000 MG PO ×2 (12:55→21:49)
[2024-10-05] MEDS: METHYLPREDNISOLONE SOD SUCC PF 125 MG/2 ML VIAL 60 MG IVP ×3 (12:55→23:11)
--- NOTE | 2024-10-05 13:43 | SWNOTE1 ---
SW spoke with pt about discharge planning. SW explained to pt that it may be beneficial to have a plan A and plan B in place. Pt did voice she is hoping to go home at discharge. She also voiced that she wants to find out what is going on with her as well as she is not sure if she had a stroke or did not have a stroke. SW did explain to pt that she is not ready for discharge today and she will not discharge until she is medically stable. SW explained that once she is stable for discharge, will she be strong enough to return home or will she need rehab at nursing facility. Pt then stated she wants to stay here as her doctors are here. SW explained to pt that she will be staying here until she is stable. SW advised that sometimes people have had a decline or have many things going on and need a short term rehab stay to build themselves back up before returning home. SW explained many people go to rehab at a halfway for a little bit and return home within a few weeks. Pt did ask if it was a halfway. SW stated it would be at a halfway, but on the rehab side of the halfway. SW did take out the list from Medicare.gov and shower patient the different nursing facilities in the area. Pt does live in [place]. Pt again voiced she is not sure as she may want to see how she is doing in a few days. SW again expressed that sometimes insurance takes a few days to get back to us and it may be beneficial to have a plan in place in case she can't return home. At this time pt voiced she has to rolan, nurse called. SW to stop back in.
--- NOTE | 2024-10-05 13:44 | PC.NURSE ---
1000 - RN updated on pt progress per PT. States that pt is doing well up in bedside chair. Pt denies any needs or concerns. 1030 - RN to bedside. Pt c/o new onset headache, with dizziness. also c/o shortness of breath. Pt assisted back to bed with noted increased weakness in RLE and noted ataxia on right side. Placed in position of comfort. VS 194/94 - 87-18-97.1-96% 2L NC. 1037 - FSBS - 96. Dr. Teresa Chen contacted and to bedside. NIH 6. Noted right facial droop, increase in expressive aphasia, Right sided limb ataxia in both upper and lower extremities, right upper limb drift, and right lower limb drift. 1044 - Stroke alert called. Tele Stroke on phone. Updated on change in pt's status, neuro changes, and NIH. Dr Jackson spoke with Dr. Teresa Chen. Plan of care established. VS - 176/83 -83 - 18 - 97% 2L NC. 1055 - 18g IV initiated in L FA. X1 attempt. Tolerated well. 1056 - Neuro symptoms unchanged. 191/88 -85 -20 -97% 2L NC. 1105 - Pt escorted to Radiology Dept per stretcher with RN. CT completed as ordered. Escorted back to room. 1120 - Returned to room from CT. 1125 - Updated Hospitalist regarding pt's condition. Noted decreased ataxia and improved speech. Decreased facial droop. 1130 - TeleNeuro in room and interactive with pt. RN present. Orders and plan of care discussed. 1147 - Pt to MRI.
[2024-10-05] MEDS: CLOPIDOGREL BISULFATE 75 MG TABLET 300 MG PO (14:14)
[2024-10-05] MEDS: GABAPENTIN 300 MG CAPSULE PO ×2 (14:16→21:25)
--- NOTE | 2024-10-05 14:45 | SWNOTE1 ---
SW stopped back in and spoke with pt and her boyfriend (correction from previous note, not her ). CAM explained the situation to pt's boyfriend that it is recommended pt go to SNF for some rehab for a short time. Initially pt's boyfriend stated that she can do that at home and he helps care for her. Pt then interrupted and stated therapy recommends she goes to SNF for rehab. CAM explained again to pt and boyfriend that it would be a short term rehab stay for strengthening and how long she is there is determined by her insurance. SW provided list from Medicare.gov with star ratings. After reviewing the star rating pt and boyfriend decided on the [facility] due to being close to hospital and star rating. CAM to send referral. Pt voiced her son will be coming in soon, SW advised that SW will be back in tomorrow and if the plans change that is alright. Referral sent to [facility]. Referral included face sheet, ED note, H&P, provider notes, case management report, nursing notes, diagnostic imaging, med list, and PT/OT notes.
[2024-10-05] MEDS: APIXABAN 5 MG TABLET PO (17:07)
[2024-10-05] MEDS: ALBUTEROL SULFATE 2.5 MG/3 ML VIAL NEB IH (20:13)
[2024-10-05] MEDS: BUDESONIDE 0.5 MG/2 ML AMPULE NEB IH (20:13)
[2024-10-05] MEDS: TRAZODONE HCL 50 MG TABLET 100 MG PO (22:09)
[2024-10-06] VITALS (24 sets, daily range): BP systolic 124–164; BP diastolic 64–88; PULSE 79–120; TEMP 36.2–36.6; O2SAT 92–96
[2024-10-06] MEDS: ALBUTEROL SULFATE 2.5 MG/3 ML VIAL NEB IH ×4 (04:33→20:00)
[2024-10-06] MEDS: GABAPENTIN 300 MG CAPSULE PO ×3 (05:04→20:54)
[2024-10-06] MEDS: METHYLPREDNISOLONE SOD SUCC PF 125 MG/2 ML VIAL 60 MG IVP ×2 (05:04→11:25)
[2024-10-06] MEDS: 0.9 % SODIUM CHLORIDE 1,000 ML 125 ML IV ×3 (05:05→22:17)
[2024-10-06 05:44] LABS: Basophils Percent Auto 0.2 % (0.2-2.0); Hematocrit 46.8 % (36.0-48.0); Hemoglobin 14.5 g/dL (12.0-16.0); Immature Granulocytes Abs Auto 0.08 10^3/uL (0.00-0.03); Immature Granulocytes Pct Auto 0.5 % (0.0-0.5); Lymphocytes Absolute Auto 1.3 10^3/uL (1.2-3.8); Lymphocytes Percent Auto 7.6 % (20.5-60.0); Mean Corpuscular Hemoglobin 27.4 pg (26.7-34.0); Mean Corpuscular Volume 88.5 fL (81.0-99.0); Mean Platelet Volume 9.8 fL (9.5-13.5); Monocytes Absolute Auto 0.2 10^3/uL (0.3-0.8); Monocytes Percent Auto 0.9 % (1.7-12.0); Neutrophils Absolute Auto 15.7 10^3/uL (1.4-6.5); Neutrophils Percent Auto 90.8 % (43.0-75.0); Platelet Count 463 10^3/uL (150-450); Red Blood Count 5.29 10^6/uL (4.20-5.40); Red Cell Distribution Width 16.7 % (11.0-15.0); White Blood Count 17.3 10^3/uL (4.0-11.0)
[2024-10-06 06:09] LABS: Anion Gap 14.8; BUN Creatinine Ratio 9.9; Carbon Dioxide 25.1 mmol/L (21.0-32.0); Chloride 107 mmol/L (98-107); Estimated GFR (African America 53 (>=60 mL/min/1.73m^2); Estimated GFR (Non-African Ame 44 (>=60 mL/min/1.73m^2); Glucose 160 mg/dL (74-106); Potassium 3.9 mmol/L (3.5-5.1); Sodium 143 mmol/L (136-145)
[2024-10-06] MEDS: ATORVASTATIN CALCIUM 40 MG TABLET 80 MG PO (08:19)
[2024-10-06] MEDS: APIXABAN 5 MG TABLET PO ×2 (08:19→20:54)
[2024-10-06] MEDS: ASPIRIN 81 MG TABLET.DR PO (08:19)
[2024-10-06] MEDS: LACOSAMIDE 50 MG TABLET 100 MG PO ×2 (08:20→20:54)
[2024-10-06] MEDS: FOLIC ACID 1 MG TABLET PO (08:20)
[2024-10-06] MEDS: FERROUS SULFATE 325 MG TABLET PO (08:20)
[2024-10-06] MEDS: PANTOPRAZOLE SODIUM 40 MG TABLET.DR PO (08:21)
[2024-10-06] MEDS: LAMOTRIGINE 100 MG TABLET 150 MG PO (08:21)
--- NOTE | 2024-10-06 08:33 | CM.NOTE ---
Important Message From Medicare discussed with pt, pt verbalizes understanding and signs paper. Original given to pt and copy placed in pt's chart.
[2024-10-06] MEDS: ACETAMINOPHEN 500 MG TABLET 1000 MG PO (09:37)
--- NOTE | 2024-10-06 10:00 | CM.NOTE ---
Rounds made with Dr. Chen, discussed with pt about skilled rehab. Pt unsure at this time if she is in agreement to go. Discussed with pt AM labs and MRI results. Awaiting PT and OT to evaluate pt today for further discharge planning.
--- NOTE | 2024-10-06 10:37 | SWNOTE1 ---
CAM received a call from [facility] and pt is approved to go already. CAM let doctor know, who is in pt's room. Pt is now voicing she wants to go home and do therapy at home. CAM let pt know that her insurance has approved her to go to rehab. Pt had concerns about a co-pay. SW assured her that she will not have a co-pay until day 21, and she likely will not need rehab for that long. Pt did voice some frustrations that she is not sure why she needs rehab. Therapy came in to room as well. OT and SW did talk to pt about her safety at home and how she would be able to get around at home and being a fall risk. At this time pt is going to work with OT/PT and determine if she can safely return home. CAM to stop back in. CAM updated [facility].
[2024-10-06] MEDS: BUDESONIDE 0.5 MG/2 ML AMPULE NEB IH ×2 (11:07→20:00)
--- NOTE | 2024-10-06 11:20 | P.PN_ITS ---
Progress Note: Subjective Subjective Interval history: Patient improved this am. Continues to have severe weakness and problems with transfer but overall right sided weakness improved. No further episodes of lightheaded and not feeling well. C/o OH. Decreased appetite but no emesis or diarrhea. SOB improved and now cough but feels like not able to get out phlegm. MRI without acute stroke. No chest pain or palpitations. Exam Constitutional Vital Signs, click to edit/add: Last Vital Signs Temp 98 F 10/06/24 07:50 Pulse 102 H 10/06/24 10:00 Resp 18 10/06/24 07:50 BP 159/86 H 10/06/24 07:50 Pulse Ox 94 L 10/06/24 07:50 O2 Del Method Nasal Cannula 10/06/24 07:50 O2 Flow Rate 1 10/06/24 07:50 Documenting provider has reviewed patient's vital signs: yes Common normals: no apparent distress, oriented x3 and alert HENMT Common normals: normocephalic Eye Common normals: PERRL and EOMs intact bilaterally Respiratory Common normals: normal respiratory effort Auscultation: diminished lung sounds Cardio Common normals: regular rate, regular rhythm, no gallops, no murmurs and no rub GI Common normals: Normal to inspection, nondistended, normoactive bowel sounds present and non-tender Extremity Common normals: no pedal edema Progress Note: Objective Labs Labs: Short CBC 10/06/24 Range/Units 05:23 WBC 17.3 H (4.0-11.0) 10^3/uL Hgb 14.5 (12.0-16.0) g/dL Hct 46.8 (36.0-48.0) % Plt Count 463 H (150-450) 10^3/uL BMP 10/06/24 05:23 Sodium 143 Potassium 3.9 Chloride 107 Carbon Dioxide 25.1 BUN 12.0 Creatinine 1.21 H Glucose 160 H Calcium 9.0 Progress Note: A&P Assessment and Plan (1) Hemiparesis of right dominant side as late effect of cerebral infarction: (2) 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 Review of outpatient records shows side effects from Vimpat and neurology recently decreased dose. Possible medication side effects was adding to symptoms. Son reported strong family his tory of prothrombin gene mutation and started Eliquis in addition to aspirin. COPD improved with solu-medrdol and wean O2 as tolerated. Add mucinex and PEP. PT recommends SNF due to severe weakness. Monitor labs and vitals. If remains stable possibly ready for discharge in next 1-2 days.
--- NOTE | 2024-10-06 11:23 | PT.DAILY ---
Physical Therapy Daily Note PT Daily Note/Assess Start: 10/06/24 11:07 Freq: Status: Active Protocol: Document 10/06/24 10:35 SALUD (Rec: 10/06/24 11:23 SALUD [id number]) Physical Therapy Daily Note/Assessment Time In/Time Out Time In 10:33 Time Out 11:03 Subjective Subjective Patient reports feeling good and is not having any pain but is having a lot of anxiety about being in the hospital. Therapeutic Exercise Time Therapeutic Exercise 10 Minutes (minutes) Therapeutic Exercise 1 Units Therapeutic Exercise Treatment Therapeutic Exercise Supine Exercises: Treatment GS x 10 QS x 10 SLR x 10 Heel slides x 10 Hip abduction x 10 Ankle pumps x 10 Therapeutic Activity Treatment Bed Mobility Ability Standby Assistance Chair Transfer Minimum Assist Ability Therapeutic Activity Patient ambulated 20 feet, 10 feet with wilferdo cane and Comments 10 feet with RW mod A x 2 with assistance required for IV pole. Patient is very unsafe with AD and requires mod A x2 and MAX VC for safety. Total Physical Therapy Time Total Therapy 10 Minutes Total Physical 1 Therapy Units Summary Daily Note Summary Patient ambulates 20 feet, 10 feet with wilfredo cane and 10 feet with RW. Patient is unsafe with ambulation and requires mod A x 2 and MAX VC and assistance with IV pole for safety. VC given to slow down and take time with ambulation and movement to decrease risk of falls. Patient in bed with rails up, call light in reach, alarm placed, and all needs met post treatment. Recommend SNF at [facility]. Edit Result 10/06/24 10:35 SALUD (Rec: 10/06/24 11:23 SALUD [id number]) Physical Therapy Daily Note/Assessment Therapeutic Activity Time Therapeutic Activity 13 Minutes (minutes) Therapeutic Activity 1 Units Total Physical Therapy Time Total Therapy 23 Minutes Total Physical 2 Therapy Units
[2024-10-06] MEDS: GUAIFENESIN 600 MG TAB.ER.12H PO ×2 (11:25→22:17)
[2024-10-06] MEDS: LORAZEPAM 2 MG/ML VIAL 0.5 MG IV (11:51)
--- NOTE | 2024-10-06 13:06 | SWNOTE1 ---
SW and case management went back in and spoke with pt. Pt's boyfriend in room as well. Case management and SW did explain the benefits of going to rehab and reiterated that her insurance will cover and that she would only have a co-pay if she went to [facility]. It was also reiterated she she does have the right to leave rehab at anytime if she does not want to be there. Pt did agree that since her insurance will cover, she will give it a try. CAM did update doctor. Pt is not leaving today as she is not medically stable. CAM updated [facility].
--- NOTE | 2024-10-06 13:22 | SWNOTE1 ---
CAM completed HENS. CAM sent updated physician notes, PT/OT, labs, vitals, and nursing notes to [facility].
[2024-10-06] MEDS: CEFTRIAXONE 1,000 MG in 0.9 % SODIUM CHLORIDE 50 ML 100 MG IV (15:53)
--- NOTE | 2024-10-06 17:20 | PC.NURSE ---
tele neuro called and spoke to RN, state they dont think anything is happening acutely, but her previous stroke sx are being exacerbated by other acute illness. Dr. Chen notified, no orders recieved
[2024-10-06] MEDS: TRAZODONE HCL 50 MG TABLET 100 MG PO (20:54)
[2024-10-07] VITALS (13 sets, daily range): BP systolic 136–151; BP diastolic 62–85; PULSE 77–95; TEMP 36.6–36.7; O2SAT 89–100
[2024-10-07] MEDS: ALBUTEROL SULFATE 2.5 MG/3 ML VIAL NEB IH ×2 (04:11→10:43)
[2024-10-07 05:56] LABS: Basophils Percent Auto 0.1 % (0.2-2.0); Hematocrit 34.8 % (36.0-48.0); Immature Granulocytes Pct Auto 0.5 % (0.0-0.5); Lymphocytes Absolute Auto 1.5 10^3/uL (1.2-3.8); Lymphocytes Percent Auto 7.2 % (20.5-60.0); Mean Corpuscular HGB Conc 31.6 g/dL (29.9-35.2); Mean Corpuscular Hemoglobin 27.6 pg (26.7-34.0); Mean Corpuscular Volume 87.2 fL (81.0-99.0); Mean Platelet Volume 9.7 fL (9.5-13.5); Monocytes Absolute Auto 1.5 10^3/uL (0.3-0.8); Neutrophils Absolute Auto 18.2 10^3/uL (1.4-6.5); Neutrophils Percent Auto 85.2 % (43.0-75.0); Platelet Count 372 10^3/uL (150-450); Red Blood Count 3.99 10^6/uL (4.20-5.40); Red Cell Distribution Width 17.2 % (11.0-15.0); White Blood Count 21.3 10^3/uL (4.0-11.0)
[2024-10-07] MEDS: GABAPENTIN 300 MG CAPSULE PO (06:06)
[2024-10-07 06:10] LABS: Anion Gap 11.7; BUN Creatinine Ratio 21.7; Calcium 8.4 mg/dL (8.5-10.1); Chloride 110 mmol/L (98-107); Estimated GFR (African America >60 (>=60 mL/min/1.73m^2); Estimated GFR (Non-African Ame >60 (>=60 mL/min/1.73m^2); Glucose 100 mg/dL (74-106); Potassium 4.7 mmol/L (3.5-5.1); Sodium 143 mmol/L (136-145)
[2024-10-07] MEDS: 0.9 % SODIUM CHLORIDE 1,000 ML 125 ML IV (08:51)
[2024-10-07] MEDS: ACETAMINOPHEN 500 MG TABLET 1000 MG PO (08:51)
[2024-10-07] MEDS: LACOSAMIDE 50 MG TABLET 100 MG PO (08:52)
[2024-10-07] MEDS: ATORVASTATIN CALCIUM 40 MG TABLET 80 MG PO (08:52)
[2024-10-07] MEDS: ASPIRIN 81 MG TABLET.DR PO (08:52)
[2024-10-07] MEDS: APIXABAN 5 MG TABLET PO (08:52)
[2024-10-07] MEDS: LAMOTRIGINE 100 MG TABLET 150 MG PO (08:52)
[2024-10-07] MEDS: FOLIC ACID 1 MG TABLET PO (08:52)
[2024-10-07] MEDS: FERROUS SULFATE 325 MG TABLET PO (08:52)
[2024-10-07] MEDS: CEFTRIAXONE 1,000 MG in 0.9 % SODIUM CHLORIDE 50 ML 100 MG IV (08:53)
[2024-10-07] MEDS: PANTOPRAZOLE SODIUM 40 MG TABLET.DR PO (08:53)
[2024-10-07] MEDS: BUDESONIDE 0.5 MG/2 ML AMPULE NEB IH (10:43)
--- NOTE | 2024-10-07 10:52 | SWNOTE1 ---
Pt will be discharged today. Doctor spoke with pt and she is agreeable to SNF at [facility]. SW stopped in and pt did voiced she is going to rehab. SW assured pt that it will be beneficial to her and get her stronger. Pt in agreement. SW to set up transport.
--- NOTE | 2024-10-07 11:00 | SWNOTE1 ---
CAM faxed dc med rec, updated labs, and vitals to [facility].
--- NOTE | 2024-10-07 11:10 | CM.NOTE ---
Rounds made with Dr. Chen. Dr. Chen reviews plan of care with [facility]. Discharge to [facility] today. Understanding verbalized.
--- NOTE | 2024-10-07 11:11 | CM.NOTE ---
Dr. Chen informed of urine culture results and sensativity results.
--- NOTE | 2024-10-07 11:28 | SWNOTE1 ---
SW called and set up trips transportation and they will be here around 12:00 to transport. SW notified nurse, patient, and the [facility] of time. Pt is going there skilled. Pt completed HENS and faxed dc med rec to [facility]. SW took packet to the floor.
--- NOTE | 2024-10-07 11:30 | PM.DS1 ---
DS: Providers Provider Date of admission: 10/04/24 17:07 Primary care physician: CHRIS BERMAN Consults: 10/04/24 16:16 Consult to Telestroke Routine Reason for consultation: Weakness, aphasia 10/04/24 17:59 Occupational Therapy Eval and Treat Routine Reason for consultation: Weakness Physical Therapy Eval and Treat Routine Reason for consultation: Weakness Speech Therapy Eval and Treat Routine Reason for consultation: Expressive aphasia 10/05/24 Speech Therapy Eval and Treat Routine Reason for consultation: Failed Dysphagia screening 10/05/24 13:36 Consult to Telestroke Routine Reason for consultation: Neurological changes Has provider been notified: Yes DS: Diagnosis Discharge Diagnosis (1) Hemiparesis of right dominant side as late effect of cerebral infarction: (2) 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 74 y/o female with a history of prior stroke resulting in right sided weakness and expressive aphasia sent to ER from oncology for worsening symptoms. History of lung cancer and completed radiation. Seen for follow up and oncology was concerned of worsening weakness. Reports increased falls over past few weeks and pain in right side. Follows with neurology for seizure disorder. Last visit was 09/26/24 and at that time vimpat was decreased and added lamictal. To ER and CT head showed old stroke but no acute change. CTA head and neck showed narrowing but no occlusion. Admitted for treatment. Hospital course: BP elevated in hospital and given IV hydralazine. BP decreased and became hypotensive. Hunter off and lightheaded. Developed dysphasia and not able to speak. Developed worsening weakness on right side. CT head negative. Developed SOB and placed on oxygen. Continued to have weakness and now weakness in leg which was not present on admission. Discussed with tele-neurology who recommended load with plavix and MRI. MRI performed and negative for acute stroke. US carotids showed mild narrowing but no flow stenosis. Son reported family history of prothrombin gene mutation and son and patient's siblings have had strokes. Added Eliquis. Started PT/OT for weakness and recommended SNF. Added solu-medrol for SOB. After dose of steroids had an episode and felt off. Hunter like heart racing and lightheaded. Increased weakness. Patient appeared to be having anxiety attack and given IV ativan which helped. Steroids stopped. Did well in hospital and vitals stable. Urine showed UTI due to klebsiella and added rocephin. Discharged to SNF in stable condition. Will take cefdinir x 10 days. Continue Eliquis and resume home medication without change. Time Spent with Patient Time attestation: Total time spent providing and/or coordinating discharge services: Time spent: greater than 30 minutes Exam Constitutional Vital Signs, click to edit/add: Last Vital Signs Temp 98.1 F 10/07/24 08:33 Pulse 95 H 10/07/24 09:54 Resp 18 10/07/24 08:33 BP 151/85 H 10/07/24 08:33 Pulse Ox 100 10/07/24 10:46 O2 Del Method Room Air 10/07/24 10:46 O2 Flow Rate 1 10/07/24 03:08 Documenting provider has reviewed patient's vital signs: yes Common normals: no apparent distress, oriented x3 and alert HENMT Common normals: normocephalic Eye Common normals: PERRL and EOMs intact bilaterally Respiratory Common normals: normal respiratory effort and clear to auscultation bilaterally Cardio Common normals: regular rate, regular rhythm, no gallops, no murmurs and no rub GI Common normals: Normal to inspection, nondistended, normoactive bowel sounds present and non-tender Extremity Common normals: no pedal edema DS: Data Data Completed and Pending Labs on day of discharge: Labs from last 24 hours 10/07/24 05:27 WBC 21.3 H RBC 3.99 L Hgb 11.0 L Hct 34.8 L MCV 87.2 MCH 27.6 MCHC 31.6 RDW 17.2 H Plt Count 372 MPV 9.7 Neut % (Auto) 85.2 H Lymph % (Auto) 7.2 L Ponce % (Auto) 7.0 Eos % (Auto) 0.0 L Baso % (Auto) 0.1 L Neut # (Auto) 18.2 H Lymph # (Auto) 1.5 Ponce # (Auto) 1.5 H Eos # (Auto) 0.0 Baso # (Auto) 0.0 Abs Immat Gran (auto) 0.10 H Imm/Tot Granulo (auto) 0.5 Sodium 143 Potassium 4.7 Chloride 110 H Carbon Dioxide 26.0 Anion Gap 11.7 BUN 18.0 Creatinine 0.83 Est GFR ( Amer) >60 Est GFR (Non-Af Amer) >60 BUN/Creatinine Ratio 21.7 Glucose 100 Calcium 8.4 L Preliminary micro results at discharge 10/04/24 15:40 Urine Culture - Preliminary Urine,Clean Catch Pending - Specimen sent to [facility] Discharge Plan Discharge Disposition: Xfer SNF Condition: Good Discharge Medications: New Eliquis 5 mg Tablet 5 mg PO BID Qty: 60 0RF cefdinir 300 mg capsule 300 mg PO BID 10 Days Qty: 20 0RF lorazepam [Ativan] 0.5 mg tablet 0.5 mg PO TID PRN (Reason: anxiety) 5 Days Qty: 15 0RF Continued albuterol sulfate 90 mcg/actuation HFA aerosol inhaler 2 inh INHALATION Q4H PRN (Reason: shortness of breath or wheezing) aspirin [Adult Aspirin Regimen] 81 mg tablet,delayed release (DR/EC) 81 mg PO DAILY atorvastatin 80 mg tablet 80 mg PO DAILY Breztri Aerosphere 160-9-4.8 mcg/actuation HFA aerosol inhaler 2 inh inhalation BID gabapentin 300 mg capsule 300 mg PO Q8H pantoprazole 40 mg tablet,delayed release (DR/EC) 40 mg PO DAILY trazodone 100 mg tablet 100 mg PO QPM Linzess 145 mcg capsule 145 mcg PO DAILY PRN (Reason: diarrhea) ferrous sulfate 325 mg (65 mg iron) tablet,delayed release (DR/EC) 325 mg PO DAILY folic acid 1 mg tablet 1 mg PO DAILY lamotrigine 150 mg tablet 150 mg PO QAM lacosamide 100 mg tablet 100 mg PO Q12H Qty: 60 0RF Print Language: Thai [employer] Instructions: Discharge to [facility] skilled Forms: Portal Instructions
[2024-10-07] MEDS: GUAIFENESIN 600 MG TAB.ER.12H PO (11:34)
--- NOTE | 2024-10-09 10:22 | PC.NURSE ---
Lead Ramp Service Man reviewed the C&S and prt is on cefdinir 300 mg bid x 10 days. Lead Ramp Service Man reviewed with Dr. Jama and no new orders at this time
== END 2024-10-07 12:20 | DRG 71 ==
LOC: ER 16:33 → MS 17:32
PROVIDERS: Physician Assistant; Registered Nurse; Admitting Provider Family Medicine; Emergency Provider Emergency Medicine; Visit Provider Family Medicine
DX: I67.9 Cerebrovascular disease, unspecified (principal); C34.12 Malignant neoplasm of upper lobe, left bronchus or lung; I69.351 Hemiplegia and hemiparesis following cerebral infarction affecting right dominant side; N39.0 Urinary tract infection, site not specified; I69.320 Aphasia following cerebral infarction; R91.1 Solitary pulmonary nodule; G40.909 Epilepsy, unspecified, not intractable, without status epilepticus; B96.1 Klebsiella pneumoniae [K. pneumoniae] as the cause of diseases classified elsewhere; Z90.49 Acquired absence of other specified parts of digestive tract; I10 Essential (primary) hypertension; Z98.51 Tubal ligation status; Z90.710 Acquired absence of both cervix and uterus; Z80.1 Family history of malignant neoplasm of trachea, bronchus and lung; J43.9 Emphysema, unspecified; Z92.3 Personal history of irradiation; Z91.81 History of falling; R47.02 Dysphasia; Z15.89 Genetic susceptibility to other disease; Z79.01 Long term (current) use of anticoagulants; Z87.891 Personal history of nicotine dependence; E78.00 Pure hypercholesterolemia, unspecified; Z79.82 Long term (current) use of aspirin; M79.7 Fibromyalgia; G25.81 Restless legs syndrome; K21.9 Gastro-esophageal reflux disease without esophagitis; R51.9 Headache, unspecified; R42 Dizziness and giddiness; I71.40 Abdominal aortic aneurysm, without rupture, unspecified; F31.9 Bipolar disorder, unspecified
CPT/HCPCS: 36415; 70450; 70496; 70498; 70551; 71045; 71250; 71275; 80048; 80053; 80061; 81001; 82728; 83036; 83540; 83550; 83605; 83735; 83880; 84443; 84484; 85025; 85378; 85610; 85652; 86140; 87086; 87150; 87186; 92523; 92610; 93005; 93880; 93970; 94640; 94667; 94668; 94761; 96365; 96366; 96375; 97110; 97161; 97165; 97530; 97535; 99285; G0378; G0463; J0360; J0696; J2060; J2919; J3475; Q9967

== ENCOUNTER 2024-12-03 13:37 | Emergency (ER) | payer MEDICARE, SELFPAY ==
--- OUTSIDE RECORDS SUMMARY | 2024-08-23 07:30 | XMS_ITS ---
Author Organization [facility] in [place] Address [address] [place] [address] Care Team Providers Care Dental Prosthetist Name Role Phone Wendy Burden CNP Primary Care Provider Unavail Eryn Johnson Unavailable [phone] REASON FOR VISIT MD Encounters Encounter Location Date Provider Diagnosis [facility] [address] [place] [phone] 08/23/2024 Eryn Lundberg Plan Of Treatment Next Appt Details Provider Name:Eryn Lundberg , 12/27/2024 02:00:00 PM, [address] [place] [address], [phone], Provider Name:Roberto Grossman, 11/28/2025 11:00:00 AM, [address] [place] [address], [phone], Progress Notes * Mirta MITCHELL MDOB:[birth year] (74 yo F)Acc No.[id number]:08/23/2024 UNLOCKED PROGRESS NOTE Progress Notes Patient: Mirta DICKERSON Provider: Annette Lundberg M.D. :1950 A ge:74 Y S ex:Female Date:08/23/2024 Address:[address] [facility], [place], [id number] Pcp:Wendy Burden CNP Subjective: * Chief Complaints: * 1 . MD. * Medical History: Objective: * Vitals: Assessment: Plan: * Treatment: * * Electronic signature of Ria Lundberg MD, [id number] on 12/03/2024 at 01:45 PM EDT Sign off status: Pending Visit Status: C ANC (Cancelled) * Provider: Annette Lundberg M.D. Date: 0 08/23/2024 Generated for [facility]/[place]/eTtigistsmitting on: 0 12/03/2024 01:45 PM EDT
--- OUTSIDE RECORDS SUMMARY | 2024-10-04 09:30 | XMS_ITS ---
Author Organization [facility] in [place] Address [address] [place] [address] Care Team Providers Care Scales Inspector Name Role Phone Wendy Burden CNP Primary Care Provider Unavail Eryn Johnson Unavailable [phone] REASON FOR VISIT MD Encounters Encounter Location Date Provider Diagnosis [facility] [address] [place] [phone] 10/04/2024 Eryn Lundberg Plan Of Treatment Next Appt Details Provider Name:Eryn Lundberg , 12/27/2024 02:00:00 PM, [address] [place] [address], [phone], Provider Name:Roberto Grossman, 11/28/2025 11:00:00 AM, [address] [place] [address], [phone], Progress Notes * Mirta MITCHELL MDOB:[birth year] (74 yo F)Acc No.[id number]:10/04/2024 UNLOCKED PROGRESS NOTE Progress Notes Patient: Mirta DICKERSON Provider: Annette Lundberg M.D. :1950 A ge:74 Y S ex:Female Date:10/04/2024 Address:[address] [facility], [place], [id number] Pcp:Wendy Burden CNP Subjective: * Chief Complaints: * 1 . MD. * Medical History: Objective: * Vitals: Assessment: Plan: * Treatment: * * Electronic signature of Ria Lundberg MD, [id number] on 12/03/2024 at 01:45 PM EDT Sign off status: Pending Visit Status: A [facility] (Voice) * Provider: Annette Lundberg M.D. Date: 0 10/04/2024 Generated for [place]/eTransmitting on: 0 12/03/2024 01:45 PM EDT
--- OUTSIDE RECORDS SUMMARY | 2024-11-14 11:19 | XMS_ITS ---
Author Name Auto Generated Organization OHIP Support Name Relationship Address Phone Ambrose Riddlee Next of Kin [address] [place] [address] + CELIOJAKE SOLIMANMIE Next of Kin [address] [facility] [address] + LEA BELL Next of Kin Unknown [phone] CelioJake solimanmie Next of Kin [address] [place] [facility] [place] [address] + CELIO, GARETH Next of Kin [address] [facility] [address] + LEA BELL Next of Kin Unknown [phone] CELIOJAKEGARETH Next of Kin [address] [facility] [place] [facility] [address] + LEA BELL Next of Kin Unknown [phone] CELIOJAKEGARETH Next of Kin [address] [facility] [place] [facility] [address] + AMBER BELL Next of Kin Unknown [phone] CELIO, GARETH Next of Kin [address] [facility] [place] [address] + CELIO, GARETH Next of Kin [address] [facility] [place] [address] + ABMER BELL Next of Kin Unknown [phone] AMBER BELL Next of Kin Unknown [phone] AMBER BELL Next of Kin Unknown [phone] AMBER BELL Next of Kin Unknown [phone] CELIO, GARETH Next of Kin Unknown [phone] AMBER BELL Next of Kin Unknown [phone] Celio, Gareth Next of Kin [address] [place] [facility] [place] [address] + Celio, Gareth Next of Kin [address] [place] [address] + CELIO, GARETH Next of Kin Unknown [phone] Celio, Gareth Next of Kin [address] [place] [facility] [place] [address] + Celio, Gareth Next of Kin [address] [place] [address] + CELIO, GARETH Next of Kin Unknown [phone] CELIO, GARETH Next of Kin Unknown [phone] Celio, Gareth Next of Kin [address] [place] [address] + Celio, Gareth Next of Kin [address] [facility] [place] [address] + Care Team Providers Care Engineering Faculty Name Role Phone BRIANA, MOHAMED Referring Unavailable OMBALLI, MOHAMED Referring Unavailable OMBALLI, MOHAMED Referring Unavailable OMBALLI, MOHAMED Attending Unavailable OMBALLI, MOHAMED Attending Unavailable OMBALLI, MOHAMED Referring Unavailable NRUIA, ALESSIA Referring Unavailable NAWRAS, ALI Admitting Unavailable NAWRAS, ALI Attending Unavailable OMBALLI, MOHAMED Referring Unavailable SHAIKH CROWE Attending Unavailable CHRIS SINGH Attending UnavailCHRIS Salinas Attending UnavailJAVIER Arreola Attending Unavailable ASAAD, IMAD Referring Unavailable CHRIS SINGH Attending UnavailJAVIER Arreola Attending Unavailable CHRIS SINGH Attending UnavailROMEL Vidal Attending Unavailable NURIA, ALESSIA Referring Unavailable BUNNY TANG Attending Unavailable AZIZA MACDONALD Attending Unavailable Asaad, Imad Referring Unavailable Lianet Norleena R Admitting Unavailable LianetAnjelena R Attending Unavailable Chris Singh Primary Care Unavaila ble Magui Cordero Admitting Unavailable GrechnyMagui Attending Unavailable Samsa, Roberto P Admitting Unavailable Samsa, Roberto P Attending Unavailable Fawwad, Hurtado Primary Care Unavailable Samsa, Roberto P Admitting Unavailable Samsa, Roberto P Attending Unavailable Fawwad, [facility] Primary [facility] Unavailable Cherelle Bautista R Attending Unavailable Fawwad, [facility] Primary [facility] Unavailable Cherelle Bautista R Admitting Unavailable Fawwad, [facility] Primary [facility] Unavailable Asaad, Imad Admitting Unavailable Asaad, Imad Attending Unavailable Asaad, Imad Attending Unavailable Fawwad, [facility] Primary Care Unavailable Asaad, Imad Admitting Unavailable Bernardino Bhakta Admitting Unavailable Bernardino Bhakta Attending Unavailable [facility], [facility] Unavailable [facility] Referring Unavailable Arden De Leon Attending Unavailable PROBLEMS DATE TYPE CONDITION / CODE ATTENDING STATUS [facility] 11/14/2024 Unknown Malignant neopla sm of upper lobe, left bronchus or lung / C34.12(ICD-10) Judit Martini R [facility] 06/21/2024 Admitting Diagnosis Polyp of colon / K63.5(ICD-10) FLORINDA SANDOVAL [facility] 06/21/2024 Admitting Diagnosis Other specified diseases of intestine / K63.89(ICD-10) FLORINDA SANDOVAL [facility] 05/18/2024 Admitting Diagnosis Solitary pulmonary nodule / R91.1(ICD-10) NA [facility] 04/28/2024 Admitting Diagnosis Simple chronic bronchitis / J41.0(ICD-10) DIANA WARREN [facility] 04/21/2024 Unknown Benign neoplasm of colon, unspecified / D12.6(ICD-10) Asaad, Imad [facility] 03/25/2024 Unknown Encounter for screening for malignant neoplasm of colon / Z12.11(ICD-10) Asaad, Imad Active [facility] 12/30/2023 Unknown Abdominal aortic aneurysm, without rupture, unspecified / I71.40(ICD-10) Cherelle Bautista [facility] 12/27/2023 Unknown Weakness / R53.1(ICD-10) Bernardino Bhakta [facility] PROCEDURES No Procedure Records Found RESULTS URINE CULTURE Observed: 10/04/2024 3:40 PM Status: F Source: [facility] ORGANISM: Klebsiella pneumon iae (O:KLEPNE) Harrington Count >100,000 Aerobic BAILEE Charge (NMIC56) SUSCEPTIBILITY ORGANISM: O:KLEPNE ANTIBIOTIC INTERPRETATION BAILEE Amikacin S <16 Amoxacillin/K Clavulanate S <8 Ampicillin/Sulbactam S <4 Aztreonam S <4 Cefazolin S <2 Cefepime S <2 Ceftazidime S <1 Ceftazidime/Avibactam S <4 Ceftolozane/Tazobactam S <2 Ceftriaxone S <1 Cefuroxime S <4 Ciprofloxacin S <0.25 Ertapenem S <0.5 Gentamicin S <2 Levofloxacin S <0.5 Meropenem S <1 Meropenem/Vaborbactam S <2 Nitrofurantoin S <32 Piperacillin/Tazobactam S <8 Tetracycline S <4 Tigecycline S <2 Tobramycin S <2 Trimethoprim/Sulfamethoxazole S <0.5 S = SUSCEPTIBLE I = INTERMEDIATE R = RESISTANT BLANK = DATA NOT AVAILABLE, OR DRUG NOT ADVISABLE OR TESTED R* = RESISTANCE DUE TO EXTENDED SPECTRUM BETA-LACTAMASES ESBL = EXTENDED SPECTRUM BETA-LACTAMASE TFG = THYMIDINE-DEPENDENT STRAIN RUBA = BETA-LACTAMASE POSITIVE IB = INDUCIBLE BETA-LACTAMASE. APPEARS IN PLACE OF 'S' WITH SPECIES KNOWN TO POSSESS INDUCIBLE BETA-LACTAMASES. POTENTIALLY THEY MAY BECOME RESISTANT TO ALL B-LACTAM DRUGS. PERFORMED BY: [place] [address] [place] [address] PATHOLOGIST [employer] DIANA MASSEY M.D. Performed By: #### CUU #### [facility] [address] ANES Observed: 06/21/2024 3:20 PM Status: COMPLETED Source: [facility] Patient: Bhupendra Rubi Procedure Summary Date: 06/21/24 Room / Location: [facility] Endoscopy Anesthesia Start: 1343 Anesthesia Stop: 1444 [...] per anesthesia protocol. No notable events documented. HISTOLOGY - TISSUE EXAM Collected: 06/21/2024 2:21 PM Status: UNK Source: [facility] TYPE CODE TESTS RESULT OUT OF RANGE REFERENCE UNITS PATHOLOGY 1499 LAB AP CASE REPORT Result Comment: Surgical Pat hology Case: [id number] Authorizing Provider: Florinda Sandoval MD Collected: 06/21/2024 1421 Ordering Location: [facility] Received: 06/21/2024 1505 [facility] Endoscopy Pathologist: Alexandrea Bonds MD Specimens: A) - Large Intestine, Right/Ascending Colon, polyp across to tatto site B) - Large Intestine, Right/Ascending Colon, polyp adjcent to tatto site C) - Large Intestine, Right/Ascending Colon, polypectomy site bx r/o adenoma D) - Large Intestine, Hepatic Flexure PATHOLOGY 34 LAB AP REPORT FINAL DIAGNOSIS NARRATIVE Result Comment: A. Colon, as cending polyp across tattoo site, biopsy: - Tubular adenoma B. Colon, ascending polyp adjacent to tattoo site, biopsy: - Tubular adenoma C. Colon, ascending polypectomy site, biopsy: - Benign colonic mucosa - No evidence of dysplasia D. Colon, hepatic flexure polyp, biopsy: - Hyperplastic polyp OLOGY 29 LAB AP CLINICAL INFORMATION Order Diagnoses Result Comment: K63.5 - Poly p of ascending colon, unspecified type [ICD-10-CM] K63.89 - Colonic mass [ICD-10-CM] PATHOLOGY [id number] LAB AP GROSS DESCRIPTION Result Comment: A. Large Int estine, Right/Ascending Colon. The specimen is received in formalin in a container labeled Bhupendra M Stephen and polyp across to tatto site. It consists of 5 chandler-pink, smooth soft tissue fragments, 0.1 to 0.4 cm in greatest dimension. The specimen is submitted entirely in 1 cassette. amado Hung fellowB. Large Intestine, Right/Ascending Colon. The specimen is received in formalin in a container labeled Bhupendra M Stephen and polyp adjcent to tatto site. It consists of 7 chandler-pink, ragged, focally erythematous soft tissue fragments, 0.2 to 0.4 cm in greatest dimension. The specimen is submitted entirely in 1 cassette. amado Hung fellowC. Large Intestine, Right/Ascending Colon. The specimen is received in formalin in a container labeled Bhupendra M Stephen and polypectomy site bx r/o adenoma. It consists of four chandler-so, ragged soft tissue fragments, 0.1 to 1.1 cm in greatest dimension. The specimen is submitted entirely in 1 cassette. Carrie Abdalla student fellowD. Large Intestine, Hepatic Flexure. The specimen is received in formalin in a container labeled Bhupendra M Stephen and unspecified. It consists of 6 chandler-so, irregular, focally erythematous soft tissue fragments, 0.1 to 0.6 cm in greatest dimension. The specimen is submitted entirely in 1 cassette. Carrie Abdalla, student fellow PATHOLOGY 32 LAB AP MICROSCOPIC DESCRIPTION Microscopic examination performed. Performed By: #### [id number] # ### [facility] ([facility]) [address] [place] [address] PROCEDURE Observed: 06/21/2024 2:01 PM Status: COMPLETED Source: [facility] Airway Date/Time: 06/21/2024 1:49 PM Urgency: elective General Information and Staff Patient location during procedure: OR Anesthesiologist: Jacki Rivas MD Resident/CAR JOCKEY/CAA: MENDEZ Guzman Performed: resident/CAR JOCKEY/CAA Indications and Patient Condition Indications for airway [...] 1 Number of other approaches attempted: 0 ANES Observed: 06/21/2024 12:04 PM Status: COMPLETED Source: [facility] Patient: Bhupendra Rubi Procedure Information Date/Time: 06/21/24 1200 Scheduled providers: Jacki Rivas MD; MENDEZ Guzman; Florinda Sandoval MD Procedure: DIAGNOSTIC COLONOSCOPY Location: [facility] Past Medical History: Diagnosis Date Anxiety [...] activity since being treated last week at [facility] Anesthesia Plan ASA 3 general (Due to new onset seizure like activity, spoke with neurologist who took care of patient at [facility]. Recommendation by neurology was to give [...] events in perioperative period. Additional Equipment Requests HP Observed: 06/21/2024 12:00 PM Status: COMPLETED Source: [facility] History Of Present Illness Bhupendra Rubi is a 73 y.o. female with history of lung cancer who had a recent colonoscopy that revealed ascending colon polyp/mass that revealed high-grade dysplasia, invasive carcinoma could not be ruled out. The patient is scheduled to have a colonoscopy for possible endoscopic mucosal resection.Past Medical History She has a past medical [...] than 5 mm. No biopsies were taken Egenera O arm CT scan was performed. 3-D reconstructions were performed on an independent workstation. I personally performed the entire procedure above and interpreted the O arm CT and 3-D reconstructions. 1 spin was performed during this procedure Blood loss: Minimal Complications: None apparent Postprocedure impression and recommendations: Left upper lobe nodule status post robotic assisted bronchoscopy CT augmented TBNA/FNA, transbronchial biopsy, bronchoalveolar lavage Mediastinal adenopathy status post EBUS guided TBNA of station 7, 4R Stat chest x-ray Recovery per PACU Await cytology and histology May discharge if chest x-ray is clear Diana Warren MD Interventional Pulmonary Medicine Pulmonary and Critical Care Medicine [facility] CT chest wo IV contrast Narrative: CT CHEST WITHOUT CONTRAST HISTORY: Lung nodule, [...] acute osseous abnormalities or aggressive osseous lesions. Impression: *Lateral left upper lobe mass measuring 3.2 cm contacting the pleural surface compatible with malignancy. *Emphysema. *Partially visualized infrarenal abdominal aortic aneurysm measuring 3.2 cm. Electronically signed: Roberto Menon MD. Assessment/Plan Bhupendra Rubi is a 73 y.o. female with history of lung cancer who had a recent colonoscopy that revealed ascending colon polyp/mass that revealed high-grade dysplasia, invasive carcinoma could not be ruled out. The patient is scheduled to have a colonoscopy for possible endoscopic mucosal resection. [id number] Observed: 06/21/2024 12:00 PM Status: COMPLETED Source: [facility] Patient: Bhupendra Rubi Procedure Summary Date: 06/21/24 Room / Location: [facility] Anesthesia Start: 1343 Anesthesia Stop: 1444 Procedure: DIAGNOSTIC COLONOSCOPY Diagnosis: Polyp of ascending colon, unspecified type Colonic mass Scheduled Providers: Jacki Rivas MD; MENDEZ Guzman; Florinda Sandoval MD Responsible Provider: Jacki Rivas MD Anesthesia Type: general ASA Status: 3 Anesthesia Post Transport Note Transport to: PACU O2 Route: room air Patient Monitor: direct observation Transport: uneventful Patient condition is: stable POCT GLUCOSE METER UNSOLICIT ED RESULTS Collected: 06/21/2024 11:45 AM Status: UNK Source: [facility] Order Comment: Waived Testin g in the ED is performed under the ED CLIA certificate #[id number]. TYPE CODE TESTS RESULT OUT OF RANGE REFERENCE UNITS LAB 885 POCT GLUCOSE 106 High 70-105 mg/dL Result Comment: thiago Performed By: #### [id number] #### [facility] ([facility]) [address] [place] [address] TELEPHONE Observed: 06/15/2024 12:00 AM Status: COMPLETED Source: [facility] [id number] Bhupendra Rubi F Date Provider Department Center 06/15/2024 [id number] LACY [facility] ONC D[facility] Family History Problem Relation Age of Onset Lung cancer Mother Other Sister Family Status - Relation Status Age at Mother Sister Reason for Visit and Comments: Appointment [375] - Tried calling patient to get scheduled for F/U appt 06/16, left a voicemail twice. CJ PREP FOR PROCEDURE Observed: 06/13/2024 12:00 AM Status: COMPLETED Source: [facility] [id number] Bhupendra Rubi Date Provider Department Center 06/13/2024 FLORINDA GTZ [facility] Family History Problem Relation Age of Onset Lung cancer Mother Other Sister Family Status - Relation Status Age at Mother Sister ORDERS ONLY Observed: 05/27/2024 12:00 AM Status: COMPLETED Source: [facility] [id number] Bhupendra Rubi Provider Department Center 05/27/2024 MARTELL DALLAS [facility] Family History Problem Relation Age of Onset Lung cancer Mother Other Sister Family Status - Relation Status Age at Mother Sister 29 Observed: 05/20/2024 2:39 PM Status: COMPLETED Source: [facility] Addendum created 05/20/24 14 39 by Marilia Pennington MD Intraprocedure Meds edited ANES Observed: 05/18/2024 3:33 PM Status: COMPLETED Source: [facility] Patient: Bhupendra Rubi Procedure Summary Date: 05/18/24 Room / Location: [facility] Main Operating Room Anesthesia Start: 1251 Anesthesia [...] per anesthesia protocol. No notable events documented. NURSNOTE Observed: 05/18/2024 3:25 PM Status: COMPLETED Source: [facility] Dr. Warren viewed chest xra y at bedside and gave policy writer verbal permission to discharge patient home. RN reviewed discharge instructions with patient and significant other at bedside. No questions or concerns expressed at this time. NURSNOTE Observed: 05/18/2024 3:10 PM Status: COMPLETED Source: [facility] Patient's significant other at bedside. He states he was not updated post procedure by Dr. Warren or his fellow Dr. Hamlin. RN notified physician of family's request for update and chest xray was completed, but needs to be read prior to discharge. NURSNOTE Observed: 05/18/2024 2:32 PM Status: COMPLETED Source: [facility] X ray is at bedside NURSNOTE Observed: 05/18/2024 2:03 PM Status: COMPLETED Source: [facility] STAT Portable Chest X-Ray in PACU. Follow up at [facility] with Carrol Kunz, for lab results in 2-4 weeks. May resume a Regular Diet and home medications if Chest X-Ray is normal. NURSNOTE Observed: 05/18/2024 2:01 PM Status: COMPLETED Source: [facility] Bronch/EBUS Findings: Left U pper Lung Mass HISTOLOGY - TISSUE EXAM Collected: 12/2023 1:31 PM Status: UNK Source: [facility] TYPE CODE TESTS RESULT OUT OF RANGE REFERENCE UNITS PATHOLOGY 1499 LAB AP CASE REPORT Result Comment: Surgical Pat hology Case: [id number] Authorizing Provider: Diana Warren MD Collected: 05/18/2024 1331 Ordering Location: [facility] Main Operating Room Received: 05/18/2024 1432 Pathologist: Javier Mensah MD Specimen: Lung, Left Upper Lobe, Left Upper Lung Mass bx r/o Cancer PATHOLOGY 34 LAB AP REPORT FINAL DIAGNOSIS NARRATIVE Result Comment: A. Lung, lef t upper lobe, biopsy: -Adenocarcinoma. Preliminary result electronically signed by Javier Mensah MD on 05/20/2024 at 12:17 PM PATHOLOGY 29 LAB AP CLINICAL INFORMATION Order Diagnoses Result Comment: R91.1 - Lung nodule [ICD-10-CM] PATHOLOGY [id number] LAB AP GROSS DESCRIPTION Result Comment: A. Lung, Lef t Upper Lobe. Received in formalin labeled with the patient's name Bhupendra Rubi and left upper lung mass BX rule out cancer, is a 2.0 x 0.3 x 0.1 cm aggregate of chandler-pink, feathery soft tissue fragments. The specimen is filtered and submitted in toto in 1 cassette. Saniya Carson, Pathologists' Geological Scout Student PATHOLOGY 32 LAB AP MICROSCOPIC DESCRIPTION Microscopic examination performed. PATHOLOGY 769 LAB AP ASR DISCLAIMER The interpretation of [...] the Clinical Laboratory Improvement Amendments of 1998. PATHOLOGY 35 LAB AP DIAGNOSIS COMMENT Result Comment: Immunohistoc hemical staining shows the tumor cells are positive for TTF-1 and negative for CK5/6. The controls are satisfactory. PD-L1 testing has been requested with results to follow in an addendum. There is a moderate amount of tumor present in the tissue block which may be suitable for additional ancillary testing, if clinically indicated. PATHOLOGY 37 LAB AP ADDENDUM 1 Result Comment: This case ([id number]) was sent to [employer] for PD-L1 22C3 IHC with tumor proportion score (TPS) interpretation and read by Rosie Azevedo MD. The result reads as follows: Tumor Proportion Score: 91-100% Adequacy of specimen: Adequate Addendum electronically signed by Javier Mensah MD on 06/02/2024 at 10:28 AM Performed By: #### [id number] # ### [facility] ([facility]) [address] [place] [address] PROCEDURE Observed: 05/18/2024 1:14 PM Status: COMPLETED Source: [facility] Airway Date/Time: 05/18/2024 12:57 PM Urgency: elective General Information and Staff Patient location during procedure: OR Anesthesiologist: Micky Hilliard MD Resident/CAR JOCKEY/CAA: Marilia Pennington MD Performed: resident/CAR JOCKEY/CAA Indications and Patient Condition Indications for airway [...] 1 Number of other approaches attempted: 0 NON-MANAGER MONEY CYTOLOGY - CELLULAR EXAM Collected: 05/18/2024 1:09 PM Status: UNK Source: [facility] TYPE CODE TESTS RESULT OUT OF RANGE REFERENCE UNITS PATHOLOGY 1499 LAB AP CASE REPORT Result Comment: Non-gynecolo gic Cytology Case: [id number] Authorizing Provider: Diana Warren MD Collected: 05/18/2024 1309 Ordering Location: [facility] Main Operating Room Received: 05/19/2024 1251 Pathologist: Javier Mensah MD Specimens: A) - Lung, Left Upper Lobe B) - Lung, Left Upper Lobe C) - Lymph Node Station 7, Lymph Node Station 7 FNA D) - Lymph Node Station 4R, Lymph Node Station 4R FNA PATHOLOGY 34 LAB AP REPORT FINAL DIAGNOSIS NARRATIVE Result Comment: A. Lung, Lef t Upper Lobe, Ion-guided fine needle aspiration: - Non-small cell carcinoma. See concurrent surgical biopsy [id number] for results of immunohistochemistry. B. Lung, Left Upper Lobe, bronchoalveolar lavage: - Non-small cell carcinoma C. Lymph Node, Station 7, EBUS-guided fine needle aspiration: - Negative for metastatic malignancy. - Cellular evidence of a lymph node. D. Lymph Node, Station 4R, EBUS-guided fine needle aspiration: - Negative for metastatic malignancy. - Cellular evidence of a lymph node. OLOGY 35 LAB AP DIAGNOSIS COMMENT Result Comment: There is a m oderate amount of tumor cells present in the cell block of part A and scant tumor in the cell block of part B for additional studies, if clinically indicated. See also concurrent biopsy, [id number]. PATHOLOGY 32 LAB AP MICROSCOPIC DESCRIPTION Result Comment: A. Satisfact ory for evaluation. Examination of the prepared smears [...] of benign bronchial cells, cartilage, and blood. PATHOLOGY 29 LAB AP CLINICAL INFORMATION Result Comment: PET avid lef t upper lobe lung nodule that has increased in size (2.2 cm), 40 pack-year smoking history PATHOLOGY [id number] LAB AP INTRAOPERATIVE CONSULTATION Result Comment: A. Lung, Lef t Upper Lobe. Rapid on-site evaluation was performed [...] pending the review of all material submitted.* PATHOLOGY 30 LAB AP GROSS DESCRIPTION Result Comment: A. 2 air-dri ed slides, 2 alcohol-fixed slides, 30 mL CytoLyt with clear, red fluid and clots B. 15 mL cloudy, red fluid C. 30 mL CytoLyt with clear, pink fluid D. 30 mL CytoLyt with clear, pink fluid and white flecks Performed By: #### [id number] ### # [facility] ([facility]) [address] [place] [address] Observed: 05/18/2024 12:30 PM Status: COMPLETED Source: [facility] Attestation signed by Diana Warren MD at 05/18/2024 11:17 AM Re-explained the procedure to the patient along with the associated risk of pneumothorax, bleeding, hypoxia, and respiratory failure. Patient is agreeable and will proceed with the scheduled robotic bronchoscopy, TBBx, and Ebus TBNA Diana Warren MD Interventional Pulmonary Medicine Pulmonary and Critical Care Medicine [facility] History Reviewed reviewed. The patient was examined [...] cyanosis, no edema. Skin: Warm and dry. 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 Additional Equipment Requests POCT GLUCOSE METER UNSOLICIT ED RESULTS Collected: 05/18/2024 11:10 AM Status: UNK Source: [facility] Order Comment: Waived Testin g in the ED is performed under the ED CLIA certificate #[id number]. TYPE CODE TESTS RESULT OUT OF RANGE REFERENCE UNITS LAB 885 POCT GLUCOSE 96 70-105 mg/dL Result Comment: aeppink Performed By: #### [id number] #### [facility] ([facility]) [address] [place] [address] 36 Observed: 05/18/2024 10:18 AM Status: COMPLETED Source: [facility] Attempted to contact patient to schedule a colonoscopy with EMR. Patient is at [facility] already today for an EBUS, and tells me she is having the colonoscopy today, attempted to explain to her the difference in the procedures but she ended up hanging up on me. Will try her tomorrow. ANESTHESIA Observed: 05/18/2024 12:00 AM Status: COMPLETED Source: [facility] [id number] Bhupendra Rubi F Date Provider Department Center 05/18/[id number], TAYL*[facility] OR [facility] Family History Problem Relation Age of Onset Lung cancer Mother Other Sister Family Status - Relation Status Age at Mother Sister TELEPHONE Observed: 05/18/2024 12:00 AM Status: COMPLETED Source: [facility] [id number] Bhupendra Rubi 0 1950 F Date Provider Department Center 05/18/2024 CarineMesfinMARTELL RIBERA [facility] JADYN Family History Problem Relation Age of Onset Lung cancer Mother Other Sister Family Status - Relation Status Age at Mother Sister [id number] Observed: 05/12/2024 12:38 PM Status: COMPLETED Source: [facility] Medications to take AM day o procedure with sips water only: PROTONIX USE BREZTRI INHALER, BRING RESCUE INHALER Medication Hold instructions: NSAIDs (Motrin,Aleve, Advil, Ibuprofen, Naproxen and Aspirin): 5-7 days prior to procedure Vitamins/Supplements: 5-7 days prior to procedure IF YOU ARE GOING HOME AFTER YOUR SURGERY OR PROCEDURE, FOR YOUR SAFETY, YOUR SURGERY WILL BE CANCELLED IF BOTH OF THE FOLLOWING ARE NOT AVAILABLE: 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 Do not wear perfume, make-up, nail mongolian, or lotions on the day of your [...] need to make any changes, please call [phone]. Notify your surgeon if you develop any illness such as a cold, cough, fever, sore throat or vomiting between now and your surgery. Thank you for entrusting us with your care. [facility] Surgical Services Team PREP FOR PROCEDURE Observed: 05/12/2024 12:00 AM Status: COMPLETED Source: [facility] [id number] Bhupendra Rubi [facility] Provider Department Center 05/12/2024 DIANA MONTANEZ [facility] Family History Problem Relation Age of Onset Lung cancer Mother Other Sister Family Status - Relation Status Age at Mother Sister TELEMEDICINE Observed: 04/28/2024 3:00 PM Status: COMPLETED Source: [facility] [id number] Bhupendra Rubi Provider Department [place] 04/28/2024 DIANA MONTANEZ [facility] Family History Problem Relation Age of Onset Lung cancer Mother Other Sister Family Status - Relation Status Age at Mother Sister Level of Service:[id number] [place] PHYS/QHP TELEPHONE EVALUATION 21-30 MIN () Reason for Visit and Comments: New 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 : 1950 Account No.: [id number] Referring physician: Dr. Lundberg Chief complaint: Lung [...] was initiated by the patient and conducted bqe-kcoj-dr-face with use of audio-only real time telephone [...] pain. SKIN: no rash, no pruritus. Physical examination: Labs Results: No results found for: HGB , HCT , WBC , BUN , CREATININE , NA , K , BICARB , CO2 , PH , PHART , PHVEN , NEO0JWG , NGB4HPZ , IYH9ZGW , PO2POC , PO2ART , PO2VEN , IBJ2LUU , HZB4FIX Radiology: No Chest X-ray results found for the past [address] results found for the past 12 months Assessment and Plan: Diagnoses and all orders for this visit: Lung nodule - CT chest wo IV contrast - Bronchoscopy Robotic Assisted (ion), EBUS with 3 or more stations; Future - [place] in [place]; Future Simple chronic bronchitis (CMS/HCC) Left upper lobe lung nodule, FDG PET avid high risk COPD Former smoker Plan: -Will proceed with an robotic assisted bronchoscopy for tissue sampling with possible EBUS-TB FNA. Discussed inpatient details. Patient is agreeable - Patient was informed to fast from midnight day prior to procedure. -Patient will need to have chest CT scan prior to procedure for procedure mapping. Thank you Dr. Lundberg for allowing us to participate to be in care of Ms. Rubi Total time spent in Medical Discussion: 15 minutes. Total 30 minutes. The visit was initiated by the patient and conducted bio-kzxc-vb-face with use of audio-only real time telephone communication between patient and provider for a virtual visit. Verbal consent to provide and bill for this service was obtained on 04/28/2024. No signature was obtained due to the COVID-19 pandemic. Sameera Humphries MD [facility] Pulmonary/Critical Care Fellow PROGRESS Observed: 04/28/2024 3:00 PM Status: COMPLETED Source: [facility] Attestation signed by Diana Warren MD at [...] Age: 73 y.o. : 1950 Account No.: [id number] Referring physician: Dr. Lundberg Chief complaint: Lung [...] was initiated by the patient and conducted aam-hhyr-gr-face with use of audio-only real time telephone [...] pain. SKIN: no rash, no pruritus. Physical examination: Labs Results: No results found for: HGB , HCT , WBC , BUN , CREATININE , NA , K , BICARB , CO2 , PH , PHART , PHVEN , ABE7UZP , FAQ0ROR , DOC8GTW , PO2POC , PO2ART , PO2VEN , HOB8TDO , PXW6NHE Radiology: No Chest X-ray results found for the past [address] results found for the past 12 months Assessment and Plan: Diagnoses and all orders for this visit: Lung nodule - CT chest wo IV contrast - Bronchoscopy Robotic Assisted (ion), EBUS with 3 or more stations; Future - [place] in [place]; Future Simple chronic bronchitis (CMS/HCC) Left upper lobe lung nodule, FDG PET avid high risk COPD Former smoker Plan: -Will proceed with an robotic assisted bronchoscopy for tissue sampling with possible EBUS-TB FNA. Discussed inpatient details. Patient is agreeable - Patient was informed to fast from midnight day prior to procedure. -Patient will need to have chest CT scan prior to procedure for procedure mapping. Thank you Dr. Lundberg for allowing us to participate to be in care of Ms. Rubi Total time spent in Medical Discussion: 15 minutes. Total 30 minutes. The visit was initiated by the patient and conducted ihp-hvil-kv-face with use of audio-only real time telephone communication between patient and provider for a virtual visit. Verbal consent to provide and bill for this service was obtained on 04/28/2024. No signature was obtained due to the COVID-19 pandemic. Sameera Humphries MD [facility] Pulmonary/Critical Care Fellow CT CHEST WO IV CONTRAST Observed: 2023 12:00 AM Status: UNK Source: [facility] CT CHEST WITHOUT CONTRAST HISTORY: Lung nodule, [...] aortic aneurysm measuring 3.2 cm. Electronically signed: Roberto Menon MD. 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 Small cyst left kidney. Subcentimeter low- attenuation lesions involving both kidneys too small for [...] Uterus has been removed. No adnexal mass.] Peritoneum/Retroperitoneum:No free air or free fluid or lymphadenopathy.[ [...] 12/30/2023. Impression dictated by: Napoleon Jalloh Jr., D.O.04/21/2024 4:03 PM Dictation Location: [place] [address] Transcribed By: [facility] 04/21/24 1603 Dictated By: Napoleon Jalloh Jr, DO 04/21/24 1556 Signed By: <Electronically signed by Napoleon Jalloh Jr, DO in OV> 04/21/24 1603 CARCINOEMBRYONIC ANTIGEN Collected: 04/21/2024 2:54 P M Status: F Source: [facility] TYPE CODE TESTS RESULT OUT OF RANGE REFERENCE UNITS LAB CEA Carcinoembryonic Antigen 10.0 High 0.0-3.0 ng/mL Result Comment: Serial tumor marker results determined by assays using different manufacturers or methods may not be comparable. [facility] licensed appraiser and method: [employer] DXI, 2 SITE IMMUNOENZYMATIC ?SANDWICH? ASSAY. PERFORMED BY: [place] [address] PATHOLOGIST SWEET PICKLE MAKER JENNIFER ALANIZ M.D. Performed By: #### CEA #### [facility] [address] [place] [address] BLOOD UREA NITROGEN Collected: 04/21/2024 2:[address] atus: F Source: [facility] Order Comment: STAT FOR CT TYPE CODE TESTS RESULT OUT OF RANGE REFERENCE UNITS LAB BUN Blood Urea Nitrogen 18 Normal 7-25 mg/dL Performed By: #### BUN, CREA T #### [facility] [address] [place] [address] CREATININE Collected: 04/21/2024 2:54 PM Status: F Source: [facility] Order Comment: STAT FOR CT TYPE CODE TESTS RESULT OUT OF RANGE REFERENCE UNITS LAB CREATT Creatinine 0.91 Normal 0.60-1.20 mg/dL LAB GFReNR Estimated GFR > 60.0 Result Comment: PERFORMED BY : [place] [address] PATHOLOGIST SWEET PICKLE MAKER JENNIFER ALANIZ M.D. Performed By: #### BUN, CREA T #### [facility] [address] [place] [address] PATHOLOGY REQUEST FOR LAB KRYSTAL Collected: 03/25/2024 10:44 AM Status: F Source: [facility] Order Comment: PATHOLOGY GI SPECIMEN TYPE CODE TESTS RESULT OUT OF RANGE REFERENCE UNITS LAB PATH [facility] Pathology Request for Lab Krystal Result Comment: See report. Scanned copy available in EMR. PERFORMED BY: [place] [address] PATHOLOGIST SWEET PICKLE MAKER JENNIFER ALANIZ M.D. Performed By: #### PATH TO [facility] #### [facility] [address] [place] [id number] [facility] L Observed: 03/09/2024 2:25 PM Status: F Source: [facility] Specimen: [id number] Received: 03/10/24 Status: TRINIDAD Araiza Num: [id number] Spec Type: Surgical Subm Dr: Roberto Grossman DO Tissues: A Lung CT-Guided Biopsy (BAL HÉCTOR) Procedures: HE/2, Gross/Micro L4 Age/ Patient Sex Location Account Attending Physician Bhupendra Rubi 73/F LABELL [id number] Roberto Grossman DO SPEC NUM: [id number] RECD: 03/10/24 STATUS: TRINIDAD ARAIZA NUM: [id number] LORA: 03/09/[address]: Roberto Grossman DO ENTERED: 03/10/241350 OT DR: Melissa,Lab SPEC TYPE: Surgical DEPT: JADE GUERRA ENTERED BY: [id number] RECV BY: [id number] ORDERED: HE/2, Gross/Micro L4 ORDERED: HE/2, Gross/Micro [...] examinations are performed supporting the above interpretation ----- ------- Specimen: [id number] Received: 03/10/24 Status: TRINIDAD Araiza Num: [id number] Spec Type: Surgical Subm Dr: Roberto Grossman DO Tissues: A Lung CT-Guided Biopsy (BAL HÉCTOR) Procedures: Carmelo PAYTON/Micro L4 ----- ------- Patient: Bhupendra Rubi [id number] (Continued) ----- ------- Specimen: [id number] Received: 03/10/24 (Continued) Signed (signature on file) Jason Gomez MD 03/18/24 0936 ----- ------- Specimen: [id number] Received: 03/10/24 Status: TRINIDAD Araiza Num: [id number] Spec Type: Surgical Subm Dr: Roberto Grossman DO Tissues: A Lung CT-Guided Biopsy (BAL HÉCTOR) Procedures: HE/2, Gross/Micro L4 ----- ------- Patient: Bhupendra Rubi [id number] (Continued) ----- ------- Specimen: [id number] Received: 03/10/24 (Continued) CPT Codes 98463 ----- ------- ----- ------- Specimen: [id number] Received: 03/10/24 Status: TRINIDAD Araiza Num: [id number] Spec Type: Surgical Subm Dr: Roberto Grossman DO Tissues: A Lung CT-Guided Biopsy (BAL HÉCTOR) Procedures: PAMELA/2Carmelo/Micro L4 ----- ------- Patient: Bhupendra Rubi [id number] (Continued) ----- ------- Signed (signature on file) Chin-Mason Gomez MD 03/18/24 0936 L Observed: 03/09/2024 1:00 PM Status: F Source: [facility] Specimen: [id number] Received: 03/15/24 Status: TRINIDAD Araiza Num: [id number] Spec Type: Cytology Subm Dr: Roberto Grossman DO Tissues: A [facility] (LEFT UPPER LOBE) Procedures: HE/2, Gross/Micro L4, Cyto Prepstain, PAPSTN Age/ Patient Sex Location Account Attending Physician Bhupendra Rubi 73/F LABELL [id number] Roberto Grossman DO SPEC NUM: [id number] RECD: 03/15/24 STATUS: TRIINDAD ARAIZA NUM: [id number] LORA: 03/09/[address] [facility] [address]: Roberto Grossman DO ENTERED: 03/15/[address]: Praveen Torres SPEC TYPE: Cytology DEPT: JADE HUMPHREY ENTERED BY: [id number] RECV BY: [id number] ORDERED: HE/2, Gross/Micro L4, Cyto Prepstain, PAPSTN ORDERED: HE/2, Gross/Micro L4, Cyto Prepstain, PAPSTN Pathological Diagnosis Left lung upper lobe cytology: Negative for malignant cells. Gross Description Received fresh is 13 ml clear colorless unfixed fluid for cytology said to have been obtained as left upper lobe for cytology. ThinPrep and cell block preparations are prepared for microscopic examination.(KS/nh) CPT Codes 80168 ----- ------- ----- ------- Specimen: [id number] Received: 03/15/24 Status: TRINIDAD Araiza Num: [id number] Spec Type: Cytology Subm Dr: Roberto Grossman DO Tissues: A BRONWASH (LEFT UPPER LOBE) Procedures: HE/2, Gross/Micro L4, Cyto Prepstain, PAPSTN ----- ------- Patient: Bhupendra Rubi [id number] (Continued) ----- ------- Signed (signature on file) Diana Massey MD 03/16/24 1430 US AORTA Observed: 12/30/2023 9:49 AM Status: COMPLETED Source: [facility] [address] [place] [id number] Ultrasound Report Signed Patient: Bhupendra Rubi MR#: [id number] 306 : 1950 Acct:[id number] Age/Sex: 73 / F ADM Date: 12/30/23 Loc: [facility] Room: Type: [facility] Attending Dr: Cherelle Bautista 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 Ordering Provider: Cherelle Bautista APRN Date of [...] Adam Keller M.D.12/30/2023 9:53 AM Dictation Location: [place] [address] Tech: Yakelindaniela Gibson Transcribed By: JOSE MIGUEL 12/30/2353 Dictated By: Adam Keller MD 12/30/23 0949 Signed By: <Electronically signed by MD Adam Keller in OV> 12/30/2353 DIPSTICK AND MICROSCOPIC Collected: 12:19 PM Status: F Source: [facility] Order Comment: Name Collecti on Type:: Clean-Voided Midstream TYPE CODE TESTS RESULT OUT OF RANGE REFERENCE UNITS LAB UCOL Color,Urine Yellow Yellow LAB UAPP Appearance,Uri ne Cloudy Abnormal Alert Clear LAB USG Specificy [place],Urine 1.043 High 1.001-1.030 LAB UPH pH,Urine 6.0 Normal 5.0-9.0 LAB ULE Leukocyte Esterase,Urine 4+ High Negative LAB UNIT Nitrite,Urine Negative Negative LAB UPRO Protein,Urine Negative Negative LAB UGL Glucose,Urine (UA) Normal Normal LAB UKET Ketones,Urine Negative Negative LAB UURO Urobilinogen,U rine Normal Normal LAB UBIL Bilirubin,Urin e Negative Negative LAB UBLD Occult Blood,Urine Negative Negative Result Comment: PERFORMED BY : [place] [address] PATHOLOGIST SWEET PICKLE MAKER JENNIFER ALANIZ M.D. LAB URBC RBC,Urine None Seen 0-4 Result Comment: Microscopic results may be affected due to low specimen volume. LAB UWBC WBC,Urine 5-9 High 0-4 Result Comment: Microscopic results may be affected due to low specimen volume. LAB USQEPI Squamous Epithelial Cell,Urine 5-9 High 0-2 Result Comment: Microscopic results may be affected due to low specimen volume. LAB UBACT Bacteria,Urine 1+ High None Seen Result Comment: Microscopic results may be affected due to low specimen volume. PERFORMED BY: [place] [address] PATHOLOGIST SWEET PICKLE MAKER JENNIFER ALANIZ M.D. Performed By: #### CUU, JHOAN NUAPLUS #### [place] [id number] [facility] URINE CULTURE Observed: 12/27/2023 12:19 PM Status: F Source: [facility] 50,000 colonies/ml mixed bacterial skin contaminants 2 Days PERFORMED BY: [place] [address] PATHOLOGIST SWEET PICKLE MAKER JENNIFER ALANIZ M.D. Performed By: #### CUU, JHOAN NUAPLUS #### [place] [id number] [facility] CT ANGIO CHEST PE PROTOCOL Observed: 12/27/2023 12:10 PM Status: COMPLETED Source: [facility] Main [place] [address] [place] [address] CT Scan Report Signed Patient: Bhupendra Rubi MR#: [id number] 306 : 1950 Acct:[id number] Age/Sex: 73 / F ADM Date: 12/27/23 Loc: ER Room: Type: [facility] ER Attending Dr: Copies to: Bernardino Bhakta [...] Adam Berger M.D.12/27/2023 12:14 PM Dictation Location: [place] [address] Transcribed By: [facility] 12/27/23 1214 Dictated By: Adam Berger DO 12/27/23 1210 Signed By: <Electronically signed by Adam eBrger DO in OV> 12/27/23 1214 XR CHEST 1V PORTABLE Observed: 12:04 PM Status: COMPLETED Source: [facility] Main [place] [address] [place] [address] XRay Report Signed Patient: Bhupendra Rubi MR#: [id number] 306 : 1950 Acct:[id number] Age/Sex: 73 / F ADM Date: 12/27/23 Loc: ER Room: Type: [facility] ER Attending Dr: Copies to: Bernardino Bhakta [...] Adam Berger M.D.12/27/2023 12:16 PM Dictation Location: [place] [address] Transcribed By: [facility] 12/27/23 1216 Dictated By: Adam Berger DO 12/27/23 1204 Signed By: <Electronically signed by Adam Berger DO in OV> 12/27/23 1216 ARTERIAL BLOOD GAS Collected: 12/27/2023 11:[address] atus: F Source: [facility] TYPE CODE TESTS RESULT OUT OF RANGE REFERENCE UNITS LAB ARTPH ABG PH 7.33 Low 7.35-7.45 LAB ARTPCO2 ABG PCO2 46.7 High 35.0-45.0 mm[Hg] LAB ARTPO2 ABG PO2 84.0 Normal 80.0-100.0 mm[Hg] LAB ARTHCO3 ABG HCO3 23.8 Normal 23.0-29.0 mmol/L LAB ARTBE ABG Base Excess -2.4 Normal -3.0-3.0 mmol/L LAB [id number] ABG Oxygen Saturation 95.5 Normal 95.0-100.0 % LAB [id number] ABG Oxygen Content 7.5 Normal 6.6-9.7 mmol/L LAB ARTTCO2 ABG TCO2 25.3 Normal 23.0-27.0 mmol/L LAB ARTFIO2 ABG Frac Inspired O2 32 % LAB ARTLITFLOW ABG Liter Flow 3 LAB VBDRAW VBG Draw Site Left Radial LAB OXYDEV Oxygen Device Nasal Cannula LAB RESPCRIT Respiratory Critical Result Comment: Critical [place] ue called on: 12/27/2023 at 11:36 PERFORMED BY: [place] [address] PATHOLOGIST SWEET PICKLE MAKER JENNIFER ALANIZ M.D. Performed By: #### ABG #### Point of Care testing , ABO/RH RETYPE Collected: 11:32 AM Status: F Source: [facility] TYPE CODE TESTS RESULT OUT OF RANGE REFERENCE UNITS LAB BT2V ABO/RH Recheck Result A Positive Result Comment: PERFORMED BY : [place] [address] PATHOLOGIST SWEET PICKLE MAKER JENNIFER ALANIZ M.D. STOOL OCCULT BLOOD (GUAIAC) Observed: 12/27/2023 11:23 AM Status: F Source: [facility] Occult Blood Negative for Occult Blood by Guaiac Methodology Reference range = Negative PERFORMED BY: [place] [address] PATHOLOGIST SWEET PICKLE MAKER JENNIFER ALANIZ M.D. Performed By: #### OB(GUAIAC ) #### [place] [id number] [place] TYPE AND SCREEN Collected: 12/27/2023 10:54 AM Statu s: F Source: [facility] TYPE CODE TESTS RESULT OUT OF RANGE REFERENCE UNITS LAB BTV Blood Type A Positive LAB ABS Antibody Screen NEGATIVE Result Comment: PERFORMED BY : [place] [address] PATHOLOGIST SWEET PICKLE MAKER JENNIFER ALANIZ M.D. LACTIC ACID Collected: 10:54 AM Status: F Source: [facility] TYPE CODE TESTS RESULT OUT OF RANGE REFERENCE UNITS LAB LACTIC Lactic Acid 1.6 0.5-2.2 mmol/L Result Comment: PERFORMED BY : [place] [address] PATHOLOGIST SWEET PICKLE MAKER JENNIFER ALANIZ M.D. Performed By: #### DDIMER, L ACTIC, PTT, PT #### [facility] [address] [place] [address] BLOOD CULTURE Observed: 12/27/2023 10:54 AM Status: F Source: [facility] NO GROWTH 5 DAYS PERFORMED BY: [place] [address] PATHOLOGIST SWEET PICKLE MAKER JENNIFER ALANIZ M.D. Performed By: #### CUBLD ### # [facility] [address] [place] [address] ECG 12 LEAD ECG Observed: 12/27/2023 10:48 AM Status: COMPLETED Source: [facility] [place] [address] Electrocardiograph Report Signed Patient: Bhupendra Rubi MR#: [id number] 306 : 1950 Acct:[id number] Age/Sex: 73 / F ADM Date: 12/27/23 Loc: ER Room: Type: [facility] ER Attending Dr: Ordering Provider: Bernardino [...] MUS Signed By Bernardino Bhakta MD 12/11 COMPLETE BLOOD COUNT AUTO DIFF Collected: 12/27/2023 10:45 AM Status: F Source: [facility] TYPE CODE TESTS RESULT OUT OF RANGE REFERENCE UNITS LAB WBC White Blood Count 13.4 High 3.8-11.6 10*3/uL LAB UNWBC Uncorrected WBC 13.4 High 3.8-11.6 10*3/uL LAB RBC Red Blood Count 5.03 High 3.60-5.00 LAB HGB Hemoglobin 14.5 Normal 11.8-15.4 g/dL LAB HCT Hematocrit 44.0 Normal 34.0-46.4 % LAB MCV Mean Corpuscular Volume 87.6 Normal 80-100 fL LAB MCH Mean Corpuscular Hemoglobin 28.9 Normal 24.7-34.3 pg LAB MCHC Mean Corpuscular HGB Conc 33.0 Normal 32.0-35.0 g/dL LAB RDW Red Cell Distribution Width 15.6 High 11.9-15.3 % LAB PLT Platelet Count 399 Normal 150-450 10*3/uL LAB MPV Mean Platelet Volume 8.3 Normal 6.3-10.7 fL LAB MDW Monocyte Distribution Width 19.53 Normal 0.00-20.00 % LAB NE% Neutrophils % (Auto) 61.6 . % LAB LY% Lymphocytes % (Auto) 27.4 . % LAB MO% Monocytes % (Auto) 9.8 . % LAB EO% Eosinophils % (Auto) 0.6 . % LAB BA% Basophils % (Auto) 0.6 . % LAB NRBC% NRBC% 0.1 Normal 0-0.5 /100{WBC } LAB NE# Neutrophils # (Auto) 8.3 High 1.8-7.7 10*3/uL LAB LY# Lymphocytes # (Auto) 3.7 Normal 1.00-4.8 10*3/uL LAB MO# Monocytes # (Auto) 1.3 High 0.0-0.8 10*3/uL LAB EO# Eosinophils # (Auto) 0.1 Normal 0.0-0.45 10*3/uL LAB BA# Basophils # (Auto) 0.1 Normal 0.0-0.2 10*3/uL Result Comment: PERFORMED BY : [place] [address] PATHOLOGIST SWEET PICKLE MAKER JENNIFER ALANIZ M.D. Performed By: #### HS TROP, CK, CMP, CBC #### [address] [address] [facility] COMPREHENSIVE METABOLIC PANEL Collected: 12/27/2023 1 0:45 AM Status: F Source: [facility] TYPE CODE TESTS RESULT OUT OF RANGE REFERENCE UNITS LAB GLU Glucose 120 High 70-100 mg/dL Result Comment: Random Gluco se Reference Range is dependent on time and content of last meal. Glucose of more than 200 mg/dL in a nonstressed, ambulatory subject supports the diagnosis of Diabetes Mellitus. ADA recommended reference range LAB BUN Blood Urea Nitrogen 13 Normal 7-25 mg/d L LAB CREATT Creatinine 0.94 Normal 0.60-1.20 mg/dL LAB GFReNR Estimated GFR > 60.0 LAB NA Sodium 140 Normal 136-145 mmol/L LAB K Potassium 3.7 Normal 3.5-5.1 mmol/L LAB CL Chloride 104 Normal 98-107 mmol/L LAB CO2 Carbon Dioxide 26.9 Normal 21.0-31.0 mmol/L LAB GAP Anion Gap 12.8 Normal 6.0-15.0 LAB CA Calcium 9.3 Normal 8.6-10.3 mg/dL LAB TP Total Protein 6.8 Normal 6.4-8.9 g/dL LAB ALB Albumin Level 4.0 Normal 3.5-5.7 g/dL LAB GLOB Globulin 2.8 g/dL LAB AGRATIO Albumin/Globulin Ratio 1.4 LAB BILIT Bilirubin,Total 0.3 Normal 0.3-1.0 mg/dL LAB AST Aspartate Amino Transferase 10 Low 13-39 U/L LAB ALT Alanine Aminotransferase 10 Normal 7-52 U/L LAB ALP Alkaline Phosphatase 105 High 34-104 U/L LAB CRCLPHA Creatinine Clr C alc Pharmacy 50.59 Result Comment: PERFORMED BY : [facility] [address] [place] [address] PATHOLOGIST SWEET PICKLE MAKER JENNIFER ALANIZ M.D. Performed By: #### HS TROP, CK, CMP, CBC #### [place] [id number] [facility] CREATINE KINASE Collected: 10:45 AM Status: F Source: [facility] TYPE CODE TESTS RESULT OUT OF RANGE REFERENCE UNITS LAB CK Creatine Kinase 41 Normal 30-223 U/L Performed By: #### HS TROP, CK, CMP, CBC #### [address] TROPONIN I HIGH SENSITIVITY Collected: 12/27/2023 10: 45 AM Status: F Source: [facility] TYPE CODE TESTS RESULT OUT OF RANGE REFERENCE UNITS LAB HS TROP Troponin I High Sensitivity < 2.3 Normal 0.0-15.0 Result Comment: PERFORMED BY : [place] [address] PATHOLOGIST SWEET PICKLE MAKER JENNIFER ALANIZ M.D. Performed By: #### HS TROP, CK, CMP, CBC #### [address] PROTHROMBIN TIME INR Collected: 10:45 AM Status: F Source: [facility] TYPE CODE TESTS RESULT OUT OF RANGE REFERENCE UNITS LAB R PT Prothrombin Time 11.5 Normal 9.0-12.9 s Result Comment: A hematocrit value greater than 55% may lead to inaccurate results in coagulation testing. Patients having hematocrit values >55% require a special collection tube for coagulation studies. Please contact the laboratory at [phone] for redraw instructions. LAB INR INR 1.0 Result Comment: INR Therapeu tic Range A) Pre- and Peroperative OAT started [...] valves: 3 - 4.5 Performed By: #### DDIMER, L ACTIC, PTT, PT #### [place] [id number] [facility] PARTIAL THROMBOPLASTIN TIME Collected: 12/27/2023 10: 45 AM Status: F Source: [facility] TYPE CODE TESTS RESULT OUT OF RANGE REFERENCE UNITS LAB PTT Partial Thromboplastin Time 24.6 Low 25.1-36.5 s Result Comment: A hematocrit value greater than 55% may lead to inaccurate results in coagulation testing. Patients having hematocrit values >55% require a special collection tube for coagulation studies. Please contact the laboratory at [phone] for redraw instructions. Performed By: #### DDIMER, L ACTIC, PTT, PT #### [facility] [address] [place], [place] [id number] [facility] D-DIMER HIGH SENSITIVITY Collected: 12/27/2023 10:45 AM Status: F Source: [facility] TYPE CODE TESTS RESULT OUT OF RANGE REFERENCE UNITS LAB DDIMER D-Dimer High Sensitivity 480 High 0-243 ng/mL Result Comment: The referenc e range for D-dimer is <243 ng/mL D-dimer [...] coagulation studies. Please contact the laboratory at [phone] for redraw instructions. PERFORMED BY: [place] [address] PATHOLOGIST [employer] JENNIFER ALANIZ M.D. Performed By: #### DDIMER, L ACTIC, PTT, PT #### [facility] [address] [place], [place] [address] [facility] BLOOD CULTURE Observed: 12/27/2023 10:45 AM Status: F Source: [facility] NO GROWTH 5 DAYS PERFORMED BY: [place] [id number] PATHOLOGIST [employer] JENNIFER ALANIZ M.D. Performed By: #### CUBLD ### # [facility] [address] [place] [id number] [facility] B-TYPE NATRIURETIC PEPTIDE Collected: 12/27/2023 10:4 0 AM Status: F Source: [facility] TYPE CODE TESTS RESULT OUT OF RANGE REFERENCE UNITS LAB BNP B-Type Natriuretic Peptide 32.0 Normal 5-100 pg/mL Result Comment: PERFORMED BY : [place] [address] PATHOLOGIST [employer] JENNIFER ALANIZ M.D. Performed By: #### BNP #### [facility] [address] ALLERGIES DATE TYPE / CODE NAME / CODE REACTION SEVERITY SOURCE 07/28/2024 Drug Allergy/0517009 02(SNOMED CT) No Known Allergies/[id number]( RXNORM) Unknown [facility] SYSTEMIC/612809 006(SNOMED CT) NO KNOWN ALLERGIES [facility] SYSTEMIC/003122 006(SNOMED CT) ALLERGIES NOT ON FILE [facility] /143068120(SN OMED CT) No Known Allergies [facility] /[id number](SN OMED CT) No Known Medication Allergies [facility] ENCOUNTERS ADMIT/DISCHARGE ACCOUNT NUMBER ADMITTING ENCOUNTER CLASS LOCATION SOURCE 11/14/2024 [id number] Judit Martini [facility] 10/27/2024/10/28/19 [id number] Ambulatory Building:[facility] 10/04/2024/10/05/19 [id number] Magui Cordero [facility] 09/26/2024/09/27/19 [id number] Ambulatory Building:R NEURO [facility] 08/02/2024/08/02/19 [id number] Ambulatory Building:BSR NEURO [facility] 08/02/2024/08/02/19 [id number] Ambulatory Building:[facility] 06/21/2024/06/21/20 [id number] FLORINDA SANDOVAL Ambulatory Building:[facility] C [facility] 05/31/2024/05/31/20 24 [id number] Ambulatory Building:[facility] Kevin [facility] EPIC 05/23/2024/05/23/20 24 [id number] Ambulatory Building:[facility] 05/18/2024/05/18/20 24 [id number] Ambulatory Building:[facility] C XRAY [facility] 05/18/2024/05/18/20 24 [id number] Ambulatory Building:[facility] XRAY [facility] 05/18/2024/05/18/20 24 [id number] Ambulatory Building:[facility] 05/18/2024/05/18/20 24 [id number] Ambulatory Buildin [id number] [facility] 05/10/2024/05/10/20 24 [id number] Ambulatory Building:YOANDY Brown [facility] 04/28/2024 [id number] Ambulatory Buildin 0 [facility] 04/21/2024/04/21/20 24 [id number] [facility] 03/25/2024/03/25/[id number] [facility] 03/24/2024/03/24/20 24 [id number] Ambulatory Building:[facility] 03/23/2024/03/23/20 24 [id number] Ambulatory Buildin [id number] [facility] 03/09/2024/03/09/20 24 [id number] [facility] 03/09/2024/03/09/20 24 [id number] Roberto Grossman [facility] 03/01/2024/03/01/20 24 [id number] Ambulatory [place] DHBuilding:F isher-[facility] 02/22/2024/02/22/20 [id number] Ambulatory Building:[facility] FAMMED [facility] EPIC 02/19/2024 [id number] Ambulatory MelissaBuliliane ding: [facility] 02/19/2024 [id number] Ambulatory Ronanuild ing: [facility] 01/04/2024/01/04/20 24 [id number] Ambulatory Building:NOM SCWMIM [facility] EPIC 12/30/2023/12/30/19 24 [id number] Cherelle Bautista [facility] 12/27/2023/12/27/19 [id number] [facility] PAYERS ENCOUNTER GUARANTOR PAYER SUBSCRIBER SOURCE 11/14/2024 Bhupendra Rubi[address] [place] [address]Gkm: (HP) Primary Insurance:[facility] PFFSPolicy Number: [id number] Date:2024-07-13 Bhupendra Lucas: [id number] [place] [address]Tig: (HP) [facility] 11/14/2024 Secondary Insurance:Self PayPolicy Number: Effective Date:2024-07-28 [facility] 10/27/2024 BHUPENDRA LUCAS: [place], [place] [address]Fqa: (HP) Primary Insurance:[employer] MEDICARE ADVANTAGEPolicy Number: [id number] Date:2024-07-13 BHUPENDRA LUCAS: [id number] [place] [address] [facility] EP[facility] 10/04/2024 Bhupendra Rubi[address] [facility] [address] [facility], [place] [address]Abh: (HP) Primary Insurance:Self PayPolicy Number: Effective Date:2024-10-04 [facility] 09/26/2024 BHUPENDRA Akila PIERSONB: [address] [facility] [address] [facility] [place] [address]Czi: (HP) Primary Insurance:MEDICAREPoli cy Number: [id number] Date:8169-01-11Eyco Name:Medicare BHUPENDRA M DANGELOB: [id number] [facility] [place] [address] [facility] EPIC 08/02/2024 BHUPENDRA PIERSONB: [address] [facility] [address] [facility] [place], [place] [address]Isq: (HP) Primary Insurance:[employer] MEDICARE ADVANTAGEPolicy Number: [id number] Date:2024-08-02 BHUPENDRA Akila PIERSONB: [id number] [address] [facility] [address] [facility] [place] [address] [facility] EP[facility] 08/02/2024 BHUPENDRA PIERSONB: [address] [facility] [address] [place] [address]Ouh: (HP) Primary Insurance:[facility] MEDICARE ADVANTAGEPolicy Number: [id number] Date:2024-08-02 BHUPENDRA Akila PIERSONB: [id number] [address] [facility] [address] [facility] [place] [address] [facility] EP[facility] 06/21/2024 Primary Insurance:HUMANA MEDICARE ADVANTAGEPolicy Number: [id number] Date:2024-02-11 BHUPENDRA PIERSONB: [id number] [facility] [place] [address] [facility] 05/31/2024 BHUPENDRA PIERSONB: [address] [facility] [place] [address]Tks: (HP) Primary Insurance:HUMANA MEDICARE ADVANTAGEPolicy Number: [id number] Date:2023-11-11 BHUPENDRA LUCAS: [id number] [facility] [place] [address] [facility] EPIC 05/23/2024 BHUPENDRA PIERSONB: [address] [facility] [place] [place] [address]Fcd: (HP) Primary Insurance:HUMANA MEDICARE ADVANTAGEPolicy Number: [id number] Date:2023-11-11 BHUPENDRA LUCAS: [id number] [facility] [place] [place] [address] [facility] 05/18/2024 Primary Insurance:HUMANA MEDICARE ADVANTAGEPolicy Number: [id number] Date:2024-02-11 BHUPENDRA LUCAS: [id number] [place] [address] [facility] 05/18/2024 Primary Insurance:HUMANA MEDICARE ADVANTAGEPolicy Number: [id number] Date:2024-02-11 BHUPENDRA LUCAS: [id number] [place] [address] [facility] 05/18/2024 Primary Insurance:HUMANA MEDICARE ADVANTAGEPolicy Number: [id number] Date:2024-02-11 BHUPENDRA LUCAS: [id number] [place] [address] [facility] 05/18/2024 Primary Insurance:HUMANA MEDICARE ADVANTAGEPolicy Number: [id number] Date:2024-02-11 BHUPENDRA LUCAS: [id number] [place] [address] [facility] 05/10/2024 BHUPENDRA LUCAS: [place], [place] [address]Gid: (HP) Primary Insurance:HUMANA MEDICARE ADVANTAGEPolicy Number: [id number] Date:2023-11-11 BHUPENDRA M LANCE: [id number] [place] [address] [facility] 04/28/2024 Primary Insurance:HUMANA MEDICARE ADVANTAGEPolicy Number: [id number] Date:2024-02-11 BHUPENDRA Akila LUCAS: [id number] [place] [address] [facility] 04/21/2024 Bhupendra Wilburn [id number] [place] [address]Bqd: (HP) Primary Insurance:[employer] HMOPolicy Number: [id number] Date:2303-86-43QE [address] [place] [address]YV: Bhupendra Akila Lucas: [id number] [place] [address]Mlr: (HP) [facility] 04/21/2024 Secondary Insurance:Self PayPolicy Number: Effective Date:2024-04-19 [facility]IVEN[facility] 03/25/2024 Bhupendra Akila [id number] [place] [address]Byh: (HP) Primary Insurance:[employer] Plus HMOPolicy Number: [id number] Date:4252-13-32HT [address] [place] [address]OU: Bhupendra Lucas: [id number] [place] [address]Lgl: (HP) [facility] 03/25/2024 Secondary Insurance:Self PayPolicy Number: Effective Date:2024-02-29 NOT GIVENThe [facility] 03/24/2024 BHUPENDRA Wilburn LANCE: [place], [place] [address]Pqy: (HP) Primary Insurance:HUMANA MEDICARE ADVANTAGEPolicy Number: [id number] Date:2023-11-11 BHUPENDRA Wilburn DANGELOB: [id number] [place] [address] [facility] 03/09/2024 Bhupendra Cortes8 [place] [address]Ncv: (HP) Primary Insurance:Self PayPolicy Number: Effective Date:2024-03-09 NOT [facility]IVEN[facility] 03/09/2024 Bhupendra TempleWmasqaai486 [place] [address]Mbr: (HP) Primary Insurance:Self PayPolicy Number: Effective Date:2024-03-09 NOT GIVENThe [facility] 03/01/2024 BHUPENDRA Wilburn LANCE: [facility] CTel: ~~( 41 (HP) Primary Insurance:HUMANAPolicy Number: [id number] Date:[id number] [address]TP: BHUPENDRA Akila TUCKER [facility] 02/22/2024 BHUPENDRA M LANCE: [place], [place] [address]Ykd: (HP) Primary Insurance:HUMANA MEDICARE ADVANTAGEPolicy Number: [id number] Date:2023-11-11 BHUPENDRA Wilburn LANCE: [id number] [place] [address] [facility] 02/19/2024 BHUPENDRA M DANGELOB: [facility] CTel: ~~( 41 (HP) Primary Insurance:MEDICAREPoli cy Number: [id number] Date:2701-45-49NM [address] [address]QB: 651 BHUPENDRA M GARRETT [facility] 01/04/2024 BHUPENDRA Wilburn LANCE: [place], [place] [address]Mza: (HP) Primary Insurance:HUMANA MEDICARE ADVANTAGEPolicy Number: [id number] Date:2023-11-11 BHUPENDRA Wilburn LANCE: [id number] [place] [address] [facility] 12/30/2023 Bhupendra Wilburn [id number] [place] [address]Rya: (HP) Primary Insurance:[facility] PFFSPolicy Number: [id number] Date:5375-51-90BG [address] [place] [address]EB: Bhupendra M DangeloB: [id number] [place] [address]Vwc: (HP) [facility] 12/30/2023 Secondary Insurance:Self PayPolicy Number: Effective Date:2023-11-10 NOT [facility]IVENThe [facility] 12/27/2023 Bhupendra Wilburn Pkbytbas108 [place] [address]Phe: (HP) Primary Insurance:[employer] [facility] PFFSPolicy Number: [id number] Date:7576-32-21ED [address] [place] [address]QF: Bhupendra M DangeloB: [id number] [place] [address]Maz: (HP) [facility] 12/27/2023 Secondary Insurance:Self PayPolicy Number: Effective Date:2023-12-27 NOT GIVENUNK [facility]
--- OUTSIDE RECORDS SUMMARY | 2024-11-30 07:00 | XMS_ITS ---
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 11/30/2024 residential (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 steroids (ICD-10 - [...] these issues are better directed to neurology. terminal make up operator (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 stero ids .Patient was counseled to rinse & gargle with water after inhaled corticosteroid use. Next Appt Details Follow Up: 1 Year, Reason: C OPD Provider Name:Eryn Lundberg , 12/27/2024 02:00:00 PM, [address] [place], [address], Provider Name:Roberto Grossman, 11/28/2025 11:00:00 AM, [address] [place], [address], Procedure Notes * Category Sub-Category Detail Notes PFT Data: 10/27/2022-FEV1/F VC: 63%-FEV1: 56% (1.17L)-FVC: 67%-APH36-40%: 22%-Bronchodilator response: None-RV: 95%-T%-DLCO 38%-Flow-volume loop: Moderate obstruction Alpha-1 Antitrypsin Screening Date: 07/30/2022 Genotype: M/M Progress Notes * Mirta MITCHELL MDOB:[birth year] (74 yo F)Acc No.[id number]:11/30/2024 Follow Up Patient: Mirta DICKERSON Provider: Jonathan Grossman DO :1950 A ge:74 Y S ex:Female Date:11/30/2024 Address:[address] [place] [address], [place], [id number] Pcp:Wendy Burden, ENVIRONMENTAL REMEDIATION CONSULTANT Check In:10:41 AM ESTCheck O ut:11:27 AM EST Subjective: * Chief [...] of stroke-like symptoms. She was sent to [facility] ER ~10/04/2024. w/up was done but did [...] C34.92 Adenocarcinoma of le ft lung Modified On:06/01/2024W/U Status:confirmed I71.43 Infrarenal abdominal aortic aneurysm, without rupture Modified On:03/02/2024/U Status:confirmed J43.2 Centrilobular emphys rodney Modified On:11/05/2022/U Status:confirmed Z79.51 terminal make up operator (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 steroids Modified On:03/02/2024/U Status:confirmed * Medical History: * Surgical History: h ysterectomy Cholecystectomy rotator cuff tear repair-bilateral tubal ligation Bronchoscopy 03/09/2024[facility] 05/18/2024 * Hospitalization/Major Diagno stic Procedure: [facility] 10/04/2024 * Family History: M other: Lung [...] iscellaneous: O 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 D rugs/Alcohol: D rugs H [...] 1 tablet Orally Once a day Breztri Aerosphere(Wtyqgig-Hhogoiovcxr-Popoiqyyns) 160-9-4.8 MCG/ACT Aerosol 2 puffs Inhalation Twice [...] tablet Orally Once a day Taking Breztri Aerosphere(Feaeqfb-Lqdjmprefqq-Sartyyqicx) 160-9-4.8 MCG/ACT Aerosol 2 puffs Inhalation Twice [...] -FEV1/FVC: 63% -FEV1: 56% (1.17L) -FVC: 67% -EBM04-65%: 22% -Bronchodilator response: None -RV: 95% -T% [...] Reason: D rug declined by patient B MA ACTION PLAN Above Normal BMI Follow-up D ietary management education, guidance, and counseling * Follow Up: 1 Year (Reason: COPD) * * Sign off status: Completed Visit Status: C HK (Check Out) true * Provider: Jonathan Grossman DO Date: 11/30/2024 Generated for Rosette parks/Warren/Vivianitting on: 12/03/2024 01:46 PM EDT History and Physical Notes * HPI [...] Skin No cyanosis Eyes Ears Nose Mouth [place] and moist. Uppe r and lower dentures [...]
[2024-12-03] VITALS (9 sets, daily range): BP systolic 147–174; BP diastolic 100–102; PULSE 74–104; TEMP 36.6; O2SAT 92–98
--- OUTSIDE RECORDS SUMMARY | 2024-12-03 13:45 | XMS_ITS | Encounter Summary ---
Author Organization [facility] Address [id number] [address] [place] [address] Care Team Providers Care Pigs Feet Cleaner Name Role Phone Betty Singh RETAIL STOCKER-DATA DEVELOPER Primary Care Pr ovider Encounter Details Date Type Department Care Team (Late st Contact Info) Description 06/13/2024 Orders Only [facility] [address] [place] [phone] Transcribe, Orders Support User Pain (Primary Dx) Social History Tobacco Use Types Packs/Day Years Used Date Smoking Tobacco: Never Assessed [facility] Utilities Answer Date Recorded In the past 12 months has e electric, gas, oil, or water company threatened to shut off services in your home? Patient unable to answer 06/15/2024 AUDIT-C Answer Date Recorded Q1: How often do you have a drink containing alcohol? Patient unable to answer 06/15/2024 Q2: How many drinks containi ng alcohol do you have on a typical day when you are drinking? Patient unable to answer Q3: How often do you have si x or more drinks on one occasion? Patient unable to answer 06/15/2024 PRAPARE - Transportation Answer Date Re corded In the past 12 months, has l ack of transportation kept you from medical appointments or from getting medications? Patient unable to answer 06/15/2024 In the past 12 months, has l ack of transportation kept you from meetings, work, or from getting things needed for daily living? Patient unable to answer 06/15/2024 Housing Instability Answer Date Recorde d Are you worried or concerned that in the next two months you may not have stable housing that you own, rent or stay in as a part of a household? Patient unable to answer 06/15/2024 Hunger Screening Answer Date Recorded Within the past 12 months we worried whether our food would run out before we got money to buy more. Patient unable to answer 06/15/2024 Within the past 12 months th e food we bought just didn't last and we didn't have money to get more. Patient unable to answer 06/15/2024 Comments Unknown Sex and Gender Information Value Date Recorded Sex Assigned at Not on file Legal Sex Female 10:06 AM EST Gender Identity Not on file Sexual Orientation Not on file documented as of this encounter Functional Status * Audit-C Score Answer Date of Assessment Author -1 06/15/2024 6:59 PM Stacia Medellin RN * Intimate Partner Violence Question Answer Date of Assessment Author Within the last year, have you been humiliated or emotionally abused in other ways by your partner or ex-partner? Patient unable to answer 06/15/2024 6:59 PM Stacia Medellin RN Within the last year, have you been afraid of your partner or ex-partner? Patient unable to answer 06/15/2024 6:59 PM Stacia Medellin RN Within the last year, have you been raped or forced to have any kind of sexual activity by your partner or ex-partner? Patient unable to answer 06/15/2024 6:59 PM Stacia Medellin RN Within the last year, have you been kicked, hit, slapped, or otherwise physically hurt by your partner or ex-partner? Patient unable to answer 06/15/2024 6:59 PM Stacia Medellin RN * Question Answer Date of Assessment Author Q1: How often do you have a drink containing alcohol? Patient unable to answer 06/15/2024 6:59 PM Stacia Medellin RN Q2: How many drinks containing alcohol do you have on a typical day when you are drinking? Patient unable to answer 06/15/2024 6:59 PM Stacia Medellin RN Q3: How often do you have six or more drinks on one occasion? Patient unable to answer 06/15/2024 6:59 PM Stacia Medellin RN * Question Answer Date of Assessment Author Functional Status Independent 06/15/2024 6:55 PM Stacia Medellin RN documented as of this encounter Plan of Treatment Not on file documented as of this encounter Goals Goal Patient Goal Type Associated Problems Recent Progress Patient-Stated? Author return home General Yes Brigitte Be RN Note: Evaluation of progress towards goal: Significant other hopes patient will be able to return home documented as of this encounter Results * CT brain without contrast stroke alert (06/13/2024 2:00 AM EST) us Scanning Provider External IMG CT ORDERABLES Fin al Result documented in this encounter Visit Diagnoses Diagnosis Pain- Primary Generalized pain documented in this encounter Additional Health Concerns Infection Onset Date Last Indicated Resolved Time Meningitis Rule-Out 06/15/2024 06/15/2024 06/15/20 6:18 PM EST documented as of this encounter Care Teams Pigs Feet Cleaner Relationship Specialty Start Date End Date Betty Singh, RETAIL STOCKER-DATA DEVELOPER [address] [place] [address] PCP - General Nurse Practitioner 06/13/24 documented as of this encounter
--- OUTSIDE RECORDS SUMMARY | 2024-12-03 13:45 | XMS_ITS | Encounter Summary ---
Author Organization [facility] Address [address] [place] [address] Care Team Providers Care Tile Burner Name Role Phone Charanjit Chen MD Primary Care Provider Betty Singh NP Unavailable [phone] Anne Hartley LPN Unavailable Unavailable Henok Hendrix MA Unavailable Unavailable Encounter Details Date Type Department Care Team (Latest Contact Info) Description 05/24/2024 Abstract [facility] Javier Villanueva, DO [address] [address] Social History Tobacco Use Types Packs/Day Years Used Date Smoking Tobacco: Former Cigarettes 0.5 55 Q uit: 12/28/2023 Passive Smoke Exposure: Current Smokeless Tobacco: Never Alcohol Use Standard Drinks/Week Comments Never 0 (1 standard drink = 0.6 oz pur e alcohol) Humiliation, Afraid, Rape, and Kick questionnair e Answer Date Recorded Within the last year, have y ou been afraid of your partner or ex-partner? No 12/08/2023 Within the last year, have y ou been humiliated or emotionally abused in other ways by your partner or ex-partner? No Within the last year, have y ou been kicked, hit, slapped, or otherwise physically hurt by your partner or ex-partner? No 12/08/2023 Within the last year, have y ou been raped or forced to have any kind of sexual activity by your partner or ex-partner? No 12/08/2023 Social Connection and Isolat ion Panel [NHANES] Answer Date Recorded In a typical week, how many times do you talk on the phone with family, friends, or neighbors? More than three times a week 12/08/2023 How often do you get togethe r with friends or relatives? Once a week 12/08/2023 How often do you attend chur or hinduism services? Never 12/08/2023 Do you belong to any clubs o r organizations such as christianity groups, unions, fraternal or athletic groups, or school groups? No 12/08/2023 How often do you attend meet ings of the clubs or organizations you belong to? Never 12/08/2023 Are you , , di vorced, , never , or living with a partner? 12/08/2023 AUDIT-C Answer Date Recorded Q1: How often do you have a drink containing alcohol? Never 12/08/2023 Q2: How many drinks containi ng alcohol do you have on a typical day when you are drinking? Patient does not drink Q3: How often do you have si x or more drinks on one occasion? Never 12/08/2023 Overall Financial Resource Strain (CARDIA) Answe r Date Recorded How hard is it for you to pa y for the very basics like food, housing, medical care, and heating? Somewhat hard 12/08/2023 PHQ-2 Answer Date Recorded Patient Health Questionnaire-2 Score 0 03/24/2024 [facility] - Occupational Stress Questionnaire Answer Date Recorded Do you feel stress - tense, restless, nervous, or anxious, or unable to sleep at night because your mind is troubled all the time - these days? Not at all 12/08/2023 Exercise Vital Sign Answer Date Recorde d On average, how many days pe r week do you engage in moderate to strenuous exercise (like a brisk walk)? 7 days 12/08/2023 On average, how many minutes do you engage in exercise at this level? 20 min 12/08/2023 Hunger Vital Sign Answer Date Recorded Within the past 12 months, y ou worried that your food would run out before you got the money to buy more. Never true 12/08/19 24 Within the past 12 months, t he food you bought just didn't last and you didn't have money to get more. Never true 12/08/2023 PRAPARE - Transportation Answer Date Re corded In the past 12 months, has l ack of transportation kept you from medical appointments or from getting medications? No 11/11 In the past 12 months, has l ack of transportation kept you from meetings, work, or from getting things needed for daily living? No 12/08/2023 Housing Stability Vital Sign Answer Lauri e Recorded In the last 12 months, was t here a time when you were not able to pay the mortgage or rent on time? No 12/08/2023 In the last 12 months, how many places have you lived? 1 12/08/2023 In the last 12 months, was t here a time when you did not have a steady place to sleep or slept in a fci (including now)? No 12/08/2023 Comments No Sex and Gender Information Value Date Recorded Sex Assigned at Not on file Legal Sex Female 12:29 PM EDT Gender Identity Not on file Sexual Orientation Not on file documented as of this encounter Plan of Treatment Upcoming Encounters Date Type Department Care Team (Late st Contact Info) Description 01/26/2025 10:30 AM EDT Office Visit [facility] [address] [place] [address] Wendy Burden NP [address] [place] [id number] documented as of this encounter Visit Diagnoses Not on filedocumented in this encounter Additional Health Concerns Assessment Noted Time PHQ-9 Depression Total Score: 5 07/09/20 23 2:09 PM EST A fall risk assessment has been complete d for the patient 12/08/2023 9:26 AM EDT documented as of this encounter Care Teams Tile Burner Relationship Specialty Start Date End Date Charanjit Chen MD [address] [place] [id number] PCP - General Family Medicine 02/11/24 Betty Singh NP [address] [place] [address] Nurse Practitioner Family Medicine 02/11/24 11/20/24 Anne Hartley LPN Licensed Practical Nurse Family Medicine 03/25/2405/24 Henok Hendrix MA Family Medicine 05/24/24 documented as of this encounter
--- OUTSIDE RECORDS SUMMARY | 2024-12-03 13:45 | XMS_ITS | Referral Summary ---
Author Organization [facility] Address [address] [place] [address] Care Team Providers Care Data Warehousing Architect Name Role Phone Eryn Lundberg MD Unavailable [phone] Eryn Lundberg MD Primary Care Provider Allergies No known active allergies Medications Medication Sig Dispensed Refills Start Date End Date Status albuterol 90 mcg/actuation inhaler every 4 (four) hours. Act thelma aspirin 81 mg EC tablet 1 (one) time each day at the same time. 12/27/2023 Active atorvastatin (Lipitor) 80 mg tablet 1 (one) time each day at the same time. Active Breztri Aerosphere 160-9-4.8 mcg/actuation HFA aerosol inhaler every 12 (twelve) hours. 03/02/2024 Active gabapentin (Neurontin) 300 mg capsule 1 capsule 1 (one) time each day at the same time. Active pantoprazole (ProtoNix) 40 mg EC tablet before breakfast. 11/25/2023 Active traZODone (Desyrel) 100 mg tablet 1 (one) time each day at the same time. 06/09/2022 Active Suprep Bowel Prep Kit 17.5-3.13-1.6 gram recon solnIndications:Col onic mass USE DIRECTED per office instructions for 2 (TWO) doses 354 mL 05/27/2024 Active lacosamide (Vimpat) 150 mg tablet tablet Take 150 mg by mouth twice a day. 06/17/2024 Active losartan (Cozaar) 25 mg tablet Take 25 mg by mouth in the morning. 06/18/2024 Active Active Problems Problem Noted Date Diagnosed Date Gastroesophageal reflux disease 05/18/2024 CVA (cerebral vascular accident) 05/18/2024 Abdominal aortic aneurysm (A AA) 3.0 cm to 5.0 cm in diameter in female 04/27/2024 Heart disease 04/27/2024 Mass of left lung 01/04/2024 Overview (04/27/2024): Last Assessment & Plan: Bronchoscopy done: PET SCAN indicated advancing growth of lung nodules; Following with Dr. Lundberg- Anisa/onco closely. Referral sent to GI: Increased activity into ascending colon on PET scan. Recommended colonoscopy: Having colonoscopy tomorrow RLS (restless legs syndrome) 07/09/2023 Overview (04/27/2024): Last Assessment & Plan: Well controlled on Requip. Cw/ same. Normal Ferritin, B12 levels. Peripheral polyneuropathy 07/09/2023 Overview (04/27/2024): Last Assessment & Plan: Controlled with gabapentin. Normal b12, folate. Moderate COPD (chronic obstructive pulmonary dis ease) 07/09/2023 Overview (04/27/2024): Last Assessment & Plan: Stop Trelegy Will order Noemí-Ellipta and see if insurance will cover. Follow up with Pulmonology [facility]. Hyperlipidemia 07/09/2023 Overview (04/27/2024): Last Assessment & Plan: Initiated statin therapy 2 weeks ago in addtion to Zetia; Lipid panel elevated. Recheck in 3 months H/O: CVA (cerebrovascular accident) 05/11/2022 Overview (04/27/2024): Last Assessment & Plan: Residual dysarthria, right hemiparesis. On ASA, Statin. BP at goal. Encouraged smoking cessation Immunizations Name Administration Dates Next Due Pneumococcal Conjugate PCV 13 07/03/2022 Pneumococcal Conjugate PCV 20 07/09/2022 Social History Tobacco Use Types Packs/Day Years Used Date Smoking Tobacco: Former Cigarettes Q uit: 12/2023 Tobacco Cessation:Counseling Given: Not Answered Alcohol Use Standard Drinks/Week Comments Not Currently 0 (1 standard drink = 0.6 oz pur e alcohol) PHQ-2 Answer Date Recorded Patient Health Questionnaire-2 Score 0 04/28/2024 Sex and Gender Information Value Date Recorded Sex Assigned at Not on file Gender Identity Not on file Sexual Orientation Not on file Last Filed Vital Signs Vital Sign Reading Time Taken Comments Blood Pressure 148/72 06/21/2024 3:28 PM EST Pulse 87 06/21/2024 3:28 PM EST Temperature 36.1 C (97 F) 06/21/2024 3:28 PM EST Respiratory Rate 17 06/21/2024 3:28 PM EST Oxygen Saturation 95% 06/21/2024 3:28 PM EST Inhaled Oxygen Concentration - - Weight 66.8 kg (147 lb 4.3 oz) 06/21/2024 11:40 AM EST Height 157.5 cm (5' 2 ) 06/21/2024 11:40 AM EST Body Mass Index 26.94 06/21/2024 11:40 AM EST Plan of Treatment Not on file Procedures Procedure Name Priority Date/Time Associated Diagnosis Comments DIAGNOSTIC COLONOSCOPY Routine 06/21/2024 2:40 PM EST Polyp of ascending colon, unspecified type Colonic mass from Last 3 Months or Most Recently Relevant to Health Maintenance Results * Diagnostic Colonoscopy w EMR (06/21/2024 2:40 PM EST) Anatomical Region Laterality Modality Endoscopy Narrative 06/22/2024 1:32 AM EST Table formatting from the original result was not included. Colonoscopy Procedure Note Procedure: Colonoscopy with snare polypectomy and biopsy Indications: Mirta Mitchell is a 73 y.o. female with history of lung cancer who had a recent colonoscopy that revealed 2.5 cm ascending colon polyp/mass that was removed in piecemeal and the site was tattooed. The pathology results revealed high-grade dysplasia, invasive carcinoma could not be ruled out. The patient is scheduled to have a colonoscopy to reassess the site of the polypectomy. Sedation: General Medications: No administrations occurring from 1334 to 1451 on 06/21/24 Attending Physician: Florinda Richard MD Procedure Details Informed consent was obtained for the procedure, including sedation. Risks of perforation, hemorrhage, adverse drug reaction and aspiration were discussed. The patient was placed in the left lateral decubitus position. The patient was monitored continuously with ECG tracing, pulse oximetry, blood pressure monitoring, and direct observations. A rectal examination was performed. The colonoscope was inserted into the rectum and advanced under direct vision to the cecum, which was identified by the ileocecal valve and appendiceal orifice. A careful inspection was made as the colonoscope was withdrawn, including a retroflexed view of the rectum; findings and interventions are described below. Appropriate photodocumentation was obtained. Findings: Digital rectal examination was unremarkable. Colonoscopy to the cecum revealed benign looking intermediate-grade the stricture in the sigmoid colon. The adult colonoscope passed through the stricture with moderate difficulties. The examination of the ascending colon revealed a tattoo salvatore. The site of previous polypectomy was identified across from the tattoo salvatore. The scar looked clean with no residual polyp. Multiple biopsies were obtained. 2 polyps were noted in the ascending colon 1 was across from the tattoo and the second was adjacent to the tattoo. The polyps measured 6 mm in size. Both polyps were removed with cold snare, retrieved and sent for histopathological examination. A third polyp was noted at the hepatic flexure and measured 6 mm in size. The polyp was removed with cold snare, retrieved and sent for histopathological examination. Retroflexion in the rectum revealed small external hemorrhoids. Quality of colonic prep: fair Withdrawal time: 28 minutes Procedure Events Event Event Time CLN SCOPE IN 06/21/2024 1:57 PM CLN CECUM REACHED 06/21/2024 2:06 PM CLN SCOPE OUT 06/21/2024 2:34 PM Specimens: ID Type Source Tests Collected by Time A : polyp across to tatto site Polyp Large Intestine, Right/Ascending Colon HISTOLOGY - TISSUE EXAM Marlo Borden LPN 06/21/2024 1421 B : polyp adjcent to tatto site Polyp Large Intestine, Right/Ascending Colon HISTOLOGY - TISSUE EXAM Marlo Borden LPN 06/21/2024 1421 C : polypectomy site bx r/o adenoma Biopsy Large Intestine, Right/Ascending Colon HISTOLOGY - TISSUE EXAM Marlo Borden KHANH 06/21/2024 1425 D : Polyp Large Intestine, Hepatic Flexure HISTOLOGY - TISSUE EXAM Marlo Borden KHANH 06/21/2024 1429 Complications: None Estimated blood loss: Minimal Disposition: Home Condition: stable Impression: Unremarkable examination of the site of previous polypectomy in the ascending colon that was recognized by the adjacent tattoo salvatore. Multiple biopsies were obtained. 2 small ascending colon polyps were identified each measured 6 mm in size as described above. Both polyps were removed with cold snare, retrieved and sent for histopathological examination. 1 small polyp noted at the hepatic flexure measured 6 mm in size, removed with cold snare, retrieved and sent for histopathological examination. Benign looking intermediate-grade sigmoid colon stricture. The adult colonoscope traversed the stricture with moderate resistance. Small external hemorrhoids Recommendations: Follow-up histopathology results. Further plan depends upon the histopathology results. If the biopsies of the site of previous polypectomy in the ascending colon were unremarkable, consider follow-up colonoscopy in 6 months. Attending Attestation: I performed the procedure. Eryn Lundberg MD ENDOSCOPY PROCEDURE ORDERABLES from Last 3 Months or Most Recently Relevant to Health Maintenance Care Teams Data Warehousing Architect Relationship Specialty Start Date End Date Eryn Lundberg MD [address] [place] [address] [address] [place] [address] PCP - General Oncology 06/21/24 Eryn Lundberg MD [address] [place] [address] [address] [place] [address] Consulting Physician Oncology 05/27/24
--- OUTSIDE RECORDS SUMMARY | 2024-12-03 13:45 | XMS_ITS | Encounter Summary ---
Author Organization [facility] Address [address] [place] [address] Care Team Providers Care Legal Job Titles Name Role Phone Charanjit Chen MD Primary Care Provider Betty Singh NP Unavailable [phone] Henok Hendrix MA Unavailable Unavailable Encounter Details Date Type Department Care Team (Late st Contact Info) Description 06/15/2024 Orders Only [facility] [address] [place] [id number] Shaikh Horan MD [address] [facility] [place] [id number] Social History Tobacco Use Types Packs/Day Years [...] 12/08/2023 How often do you attend chur ch or yazidi services? Never 12/08/2023 Do you belong to any clubs o r organizations such as evangelical groups, unions, fraternal or athletic groups, or [...] Recorded Patient Health Questionnaire-2 Score 0 03/24/2024 [facility] - Occupational Stress [...] place to sleep or slept in a custodial (including now)? No 12/08/2023 Comments No Sex [...] Office Visit [facility] [address] [place] [address] Wendy Burden NP [address] [place] [address] documented as of this encounter Procedures Procedure Name Priority Date/Time Associated Diagnosis Comments CT HEAD WO IV CONTRAST Routine 06/13/2024 7:51 AM EST documented in this encounter Results * CT head wo IV contrast (06/13/2024 7:51 AM EST) Anatomical Region Laterality Modality Head, Neck Computed Tomogra phy us Shaikh Aung FARFAN IMG CT PROCEDURES Final Result documented in this encounter Visit Diagnoses Not on filedocumented in this encounter Additional Health Concerns Assessment Noted Time PHQ-9 Depression Total Score: 5 07/09/20 23 2:09 PM EST A fall risk assessment has been complete d for the patient 12/08/2023 9:26 AM EDT documented as of this encounter Care Teams Legal Job Titles Relationship Specialty Start Date End Date Charanjit Chen MD [address] [place] [address] PCP - General Family Medicine 02/11/24 Betty Singh NP [address] [place] [address] Nurse Practitioner Family Medicine 02/11/24 11/20/24 Henok Hendrix MA Family Medicine 05/24/24 documented as of this encounter
--- OUTSIDE RECORDS SUMMARY | 2024-12-03 13:45 | XMS_ITS | Encounter Summary ---
Author Organization [facility] Address [address] [place] [address] Care Team Providers Care Assistant Golf Course Superintendent Name Role Phone Flower Stokes LPN Unavailable Unavailable Charanjit Chen MD Primary Care Provider [phone] Betty Singh NP Unavailable Anne Hartley LPN Unavailable Unavailable Henok Hendrix MA Unavailable Unavailable Encounter Details Date Type Department Care Team (Late st Contact Info) Description 03/09/2024 Clinisync Result Encounter [facility] External Department Unsolicited Provider, Generic External Data Social History Tobacco Use Types Packs/Day Years [...] often do you attend chur ch or confucianism services? Never 12/08/2023 Do you belong to any clubs o r organizations such as jehovah's witness groups, unions, fraternal or athletic groups, or [...] Date Recorded Patient Health Questionnaire-2 Score 0 02/22/2024 [facility] Answer Date Recorded [...] the money to buy more. Never true 05/28/20 24 Within the past 12 months, t [...] place to sleep or slept in a group home (including now)? No 12/08/2023 Comments Unknown Sex and Gender Information Value Date Recorded Sex Assigned at Not on file Legal Sex Female 12:29 PM EDT Gender Identity Not on file Sexual Orientation Not on file documented as of this encounter Plan of Treatment Upcoming Encounters Date Type Department Care Team (Late st Contact Info) Description 01/26/2025 10:30 AM EDT Office Visit [facility] [address] [place] [address] Wendy Burden NP [address] [place] [address] documented as of this encounter Procedures Procedure Name Priority Date/Time Associated Diagnosis Comments XR CHEST 1 V 03/09/2024 2:47 PM EDT COCCIDIOIDES ABS, IGG/IGM, EIA Routine 03/09/2024 2:39 PM EDT HISTOPLASMA CAPSULATUM ABS. Routine 03/09/2024 2:39 PM EDT BLASTOMYCES ABS, QN, DID Routine 03/09/2024 2:39 PM EDT documented in this encounter Results * XR CHEST 1 V (03/09/2024 2:47 PM EDT) Anatomical Region Laterality Modality Other 03/09/2024 2:47 PM EDT Narrative 03/09/2024 2:49 [place] [address] XRay Report Signed Patient: BHUPENDRA MIRANDA MR#: [id number] : 1950 Acct:[id number] Age/Sex: 73 / F ADM Date: 03/09/24 Loc: SURGOUT Attending Dr: Leigh Thompson D.O. Ordering Physician: Leigh Thompson D.O. Date of Service: 03/09/24 Procedure(s): XR chest 1V Accession Number(s): [id number] cc: BETTY SINGH; Leigh Thompson D.O. [place] [id number] Patient Name: BHUPENDRA MIRANDA MRN: [facility]:[id number] date: 1950 Sex: F Assigned Patient Location: [facility] Current Patient Location: [facility] Accession/Order Number: [id number] Exam Date: 03/09/2024 14:00 Report Date: 03/09/2024 14:47 At the request of: LEIGH THOMPSON Procedure: XR chest 1V EXAMINATION: XR chest 1V HISTORY: HÉCTOR mass, s/p bronchoscopy -eval for PTX COMPARISON: 12/27/2023 TECHNIQUE: AP portable FINDINGS: LUNGS: The right lung is clear. Focal mass in the left lung measuring 11.4 x 4.2 cm. Left lung volume loss VASCULATURE: No increased pulmonary vasculature. PLEURA: No pneumothorax, effusion, or pleural thickening. CARDIAC: Dominant heart size MEDIASTINUM: No visible mass or adenopathy. Aortic atherosclerosis BONES: No fracture or visible bone lesion. OTHER: Negative. XR/XR chest 1V IMPRESSION: Left lung density/mass No pneumothorax Electronically authenticated by: JEFF MELTON Date: 03/09/2024 14:47 Dictated By: Jeff Melton M.D. Signed By: 03/09/24 1449 DD/ 46 TD/TT: Magistrate Assistant: Procedure Note Radiology, Radiologist, - 03/09/2024 [facility] [place] [id number] XRay Report Signed Patient: BHUPENDRA MIRANDA MMR#: [id number] : 1950cct:[id number] Age/Sex: 73 / FADM Date: 03/09/24 Loc: SURGOUT Attending Dr: Leigh Thompson D.O. Ordering Physician: Leigh Thompson D.O. Date of Service: 03/09/24 Procedure(s): XR chest 1V Accession Number(s): [id number] cc: BETTY SINGH; Leigh Thompson D.O. [facility] [place] [id number] Patient Name: BHUPENDRA MIRANDA MRN: [facility]:[id number] date: 1950 Sex: F [facility] Location: [facility] Accession/Order Number: [id number] Exam Date: 03/09/2024 14:00 Report Date: 03/09/2024 14:47 At the request of: LEIGH THOMPSON Procedure: XR chest 1V EXAMINATION: XR chest 1V HISTORY: HÉCTOR mass, s/p bronchoscopy -eval for PTX COMPARISON: 12/27/2023 TECHNIQUE: AP portable FINDINGS: LUNGS: The right lung is clear. Focal mass in the left lung measuring 11.4x 4.2 cm. Left lung volume loss VASCULATURE: No increased pulmonary vasculature. PLEURA: No pneumothorax, effusion, or pleural thickening. CARDIAC: Dominant heart size MEDIASTINUM: No visible mass or adenopathy. Aortic atherosclerosis BONES: No fracture or visible bone lesion. OTHER: Negative. XR/XR chest 1V IMPRESSION: Left lung density/mass No pneumothorax Electronically authenticated by: JEFF MELTON Date: 03/09/2024 14:47 Dictated By: Jeff Melton M.D. Signed By:03/09/24 144 DD/ 46 TD/TT: Magistrate Assistant: [facility] External Data Provider [facility] Final Result * COCCIDIOIDES ABS, IGG/IGM, EIA (03/09/2024 2:39 PM EDT) COCCIDABS.1 0.5 . EIA Units [facility] Comment: Negative <1.0 Indeterminate 1.0-1.4 Positive >1.4 COCCIDABS.2 0.0 . EIA Units [facility] Comment: Negative <1.0 Indeterminate 1.0-1.4 Positive >1.4 Performed at: [address] [id number] Hand Tube Winder: Andrea Stevens MD, Phone: [phone] 03/09/2024 2:39 PM EDT 03/09/2024 2:43 PM EDT Narrative [facility] - 03/12/2024 8:08 PM EDT [facility] External Data Provider LAB BLOOD ORDERAB LES Final Result Performing Organization Address City/[facility]/ZIP Co de Phone Number [facility] * HISTOPLASMA CAPSULATUM ABS. (03/09/2024 2:39 PM EDT) HISTOPLASMA MYCELIAL CF AB. Negative Neg:<1:2 [facility] HISTOPLASMA YEAST CF AB Negative Neg:<1:2 [facility] Comment: Performed at: [address] [id number] Hand Tube Winder: Erick Khalil MD, Phone: [phone] 03/09/2024 2:39 PM EDT 03/09/2024 2:43 PM EDT Narrative [facility] - 03/13/2024 2:07 PM EDT Generic External Data Provider LAB BLOOD ORDERAB LES Final Result [facility] * BLASTOMYCES ABS, QN, DID (03/09/2024 2:39 PM EDT) BLASTOMYCES ABS, QN, DID Negative Neg:<1:1 [facility] Comment: Performed at: - [facility] [id number] Hand Tube Winder: Erick Khalil MD, Phone: [phone] 03/09/2024 2:39 PM EDT 03/09/2024 2:43 PM EDT Narrative [facility] - 03/13/2024 2:07 PM EDT us Generic External Data Provider LAB BLOOD ORDERAB LES Final Result [facility] documented in this encounter Visit Diagnoses Not on filedocumented in this encounter Additional Health Concerns Assessment Noted Time PHQ-9 Depression Total Score: 5 07/09/20 23 2:09 PM EST A fall risk assessment has been complete d for the patient 12/08/2023 9:26 AM EDT documented as of this encounter Care Teams Assistant Golf Course Superintendent Relationship Specialty Start Date End Date Charanjit Chen MD [address] [place] [address] PCP - General Family Medicine 02/11/24 Flower Stokes LPN Licensed Practical Nurse Family Medicine 11/26/23 Betty Singh NP [address] [place] [address] Nurse Practitioner Family Medicine 02/11/24 11/20/24 Anne Hartley LPN Licensed Practical Nurse Family Medicine 03/25/2405/24 Henok Hendrix MA Family Medicine 05/24/24 documented as of this encounter
--- OUTSIDE RECORDS SUMMARY | 2024-12-03 13:45 | XMS_ITS | Encounter Summary ---
Author Organization [facility] Address [address] [place] [address] Care Team Providers Care Client Experience Manager Name Role Phone Charanjit Chen MD Primary Care Provider Betty Singh NP Unavailable [phone] Henok Hendrix MA Unavailable Unavailable Encounter Details Date Type Department Care Team (Late st Contact Info) Description 06/14/2024 Orders Only [facility] [address] [place] [address] Shaikh Horan MD [address] [facility] [place] [address] Social History Tobacco Use Types Packs/Day Years [...] often do you attend chur ch or faith services? Never 12/08/2023 Do you belong to any clubs o r organizations such as jainism groups, unions, fraternal or athletic groups, or [...] Recorded Patient Health Questionnaire-2 Score 0 03/24/2024 [facility] of Occupat ional Health - Occupational Stress [...] place to sleep or slept in a snf (including now)? No 12/08/2023 Comments No Sex and Gender Information Value Date Recorded Sex Assigned at Not on file Legal Sex Female 12:29 PM EDT Gender Identity Not on file Sexual Orientation Not on file documented as of this encounter Plan of Treatment Upcoming Encounters Date Type Department Care Team (Late Contact Info) Description 01/26/2025 10:30 AM EDT Office Visit [facility] [address] [place] [address] Wendy Burden NP [address] [place] [address] documented as of this encounter Procedures Procedure Name Priority Date/Time Associated Diagnosis Comments MRI HEAD/BRAIN WO CONTRAS Routine 06/13/2024 9:11 AM EST documented in this encounter Results * MRI HEAD/BRAIN WO CONTRAS (06/13/2024 9:11 AM EST) Anatomical Region Laterality Modality Radiographic Meagan ging us Shaikh Aung [facility] IMG XR PROCEDURES Final Result documented in this encounter Visit Diagnoses Not on filedocumented in this encounter Additional Health Concerns Assessment Noted Time PHQ-9 Depression Total Score: 5 07/09/20 23 2:09 PM EST A fall risk assessment has been complete d for the patient 12/08/2023 9:26 AM EDT documented as of this encounter Care Teams Client Experience Manager Relationship Specialty Start Date End Date Charanjit Chen MD [address] [place] [address] PCP - General Family Medicine 02/11/24 Betty Singh NP [address] [place] [address] Nurse Practitioner Family Medicine 02/11/24 11/20/24 Henok Hendrix MA Family Medicine 05/24/24 documented as of this encounter
--- OUTSIDE RECORDS SUMMARY | 2024-12-03 13:45 | XMS_ITS | Encounter Summary ---
Author Organization [facility] Address [address] [place] [address] Care Team Providers Care Options Trader Name Role Phone Flower Stokes LPN Unavailable Unavailable Charanjit Chen MD Primary Care Provider Betty Singh NP Unavailable Anne Hartley LPN Unavailable Unavailable Henok Hendrix MA Unavailable Unavailable Encounter Details Date Type Department Care Team (Late st Contact Info) Description 02/22/2024 Clinisync Result Encounter [facility] External Department Unsolicited Shaikh Horan MD [address] [place] [address] Social History Tobacco Use Types Packs/Day Years [...] often do you attend chur ch or jainism services? Never 12/08/2023 Do you belong to any clubs o r organizations such as episcopalian groups, unions, fraternal or athletic groups, or [...] Recorded Patient Health Questionnaire-2 Score 0 02/22/2024 [facility] of Occupat ional Health - Occupational [...] a snf (including now)? No 12/08/2023 Comments Unknown Sex and Gender Information Value Date Recorded Sex Assigned at Not on file Legal Sex Female 12:29 PM EDT Gender Identity Not on file Sexual Orientation Not on file documented as of this encounter Functional Status * Over the past 2 weeks, how often have you been bothered by any of the following problems? Question Answer Date of Assessment Author Little interest or pleasure in doing things Not at all 02/22/2024 2:08 PM EDT Henok Hendrix M A Feeling down, depressed, or hopeless Not at all 02/22/2024 2:08 PM EDT Henok Hendrix M A Patient Health Questionnaire -2 Score 0 02/22/2024 2:08 PM EDT Henok Hendrix M A documented as of this encounter Plan of Treatment Upcoming Encounters Date Type Department Care Team (Late st Contact Info) Description 01/26/2025 10:30 AM EDT Office Visit [facility] [address] [place] [address] Wendy Burden NP [address] [place] [address] documented as of this encounter Procedures Procedure Name Priority Date/Time Associated Diagnosis Comments CA HOLTER MONITOR 2-7 DAYS 02/22/2024 1:27 PM EDT documented in this encounter Results * CA HOLTER MONITOR 2-7 DAYS (02/22/2024 1:27 PM EDT) Anatomical Region Laterality Modality Other 02/22/2024 1:27 PM EDT Narrative 02/23/2024 6:56 [place] [address] Cardiology Report Signed Patient: BHUPENDRA MIRANDA MR#: [id number] : 1950 Acct:[id number] Age/Sex: 73 / F ADM Date: 02/12/24 Loc: CARD Attending Dr: Shaikh Aung Davidson Ordering Physician: Shaikh Lety Horan Date of Service: 02/12/24 Procedure(s): CA holter montior 2-7 days Accession Number(s): [id number] cc: Shaikh Lety Horan [facility] Test Date: 2024-02-22 Pat Name: BHUPENDRA MIRANDA Department: Room: - Gender: Female Principal Secretary: : 1950 Requested By: SHAIKH AUNG Order Number: [id number] Reading MD: KEEGAN COMER Interpretive Statements Predominant rhythm is sinus with average rate of 84 bpm Tachycardia - max rate of 144 bpm (sinus tachy) Bradycardia - min rate of 52 bpm Ventricular ectopy - 544 total, <1% - 538 PVC - 6 couplets Patient triggered events: none IMpression: Predominant rhythm is sinus with average rate of 84 bpm Fastest rate of 144 bpm (sinus tachy) and slowest rateof 52 bpm Longest sinus tach of 2h 23min 29sec with rates betweem 118-138 bpm Longest sinus ravinder of 15min 51sec with rates between 57-59 bpm 544 VE beats <1%, 538 PVC, 6 couplets No atrial fib No pauses or blocks Electronically Signed On 02-23-2024 6:55:55 EDT by KEEGAN COMER Dictated By: Keegan Comer D.O. Signed By: 02/23/24 0656 02/23/24 0656 DD/ 1327 TD/TT: Gas Engineer: Procedure Note Radiology, Radiologist, MD - 02/23/2024 [place] [address] Cardiology Report Signed Patient: BHUPENDRA MIRANDA MMR#: [id number] : 1950cct:[id number] Age/Sex: 73 / FADM Date: 02/12/24 Loc: CARD Attending Dr: Shaikh Aung Davidson Ordering Physician: Shaikh Lety Horan Date of Service: 02/12/24 Procedure(s): CA holter montior 2-7 days Accession Number(s): [id number] cc: Shaikh Lety oHran [facility] Test Date: 2024-02-22 Pat Name: BHUPENDRA MIRANDA Department: Room: - Gender: Female Principal Secretary: : 1950 Requested By: SHAIKH AUNG Order Number: [id number] Reading MD: KEEGAN COMER Interpretive Statements Predominant rhythm is sinus with average rate of 84 bpm Tachycardia - max rate of 144 bpm (sinus tachy) Bradycardia - min rate of 52 bpm Ventricular ectopy - 544 total, <1% - 538 PVC - 6 couplets Patient triggered events: none IMpression: Predominant rhythm is sinus with average rate of 84 bpm Fastest rate of 144 bpm (sinus tachy) and slowest rateof 52 bpm Longest sinus tach of 2h 23min 29sec with rates betweem 118-138 bpm Longest sinus ravinder of 15min 51sec with rates between 57-59 bpm 544 VE beats <1%, 538 PVC, 6 couplets No atrial fib No pauses or blocks Electronically Signed On 02-23-2024 6:55:55 EDT by KEEGAN COMER Dictated By: Keegan Comer D.O. Signed By:02/23/24 0656 02/23/24 0656 DD/ 1327 TD/TT: Gas Engineer: us Shaikh Aung [facility]AN [facility] Final Result documented in this encounter Visit Diagnoses Not on filedocumented in this encounter Additional Health Concerns Assessment Noted Time PHQ-9 Depression Total Score: 5 07/09/20 23 2:09 PM EST A fall risk assessment has been complete d for the patient 12/08/2023 9:26 AM EDT documented as of this encounter Care Teams Options Trader Relationship Specialty Start Date End Date Charanjit Chen MD [address] [place] [address] PCP - General Family Medicine 02/11/24 Flower Stokes LPN Licensed Practical Nurse Family Medicine 11/26/23 Betty Singh NP [address] [place] [address] Nurse Practitioner Family Medicine 02/11/24 11/20/24 Anne Hartley LPN Licensed Practical Nurse Family Medicine 03/25/2405/24 Henok Hendrix MA Family Medicine 05/24/24 documented as of this encounter
--- OUTSIDE RECORDS SUMMARY | 2024-12-03 13:45 | XMS_ITS | Encounter Summary ---
Author Organization [facility] Address [address] [place] [address] Care Team Providers Care Pilling Machine Operator Name Role Phone Charanjit Chen MD Primary Care Provider Betty Singh DIRECTOR SERVICE Unavailable Anne Hartley LPN Unavailable Unavailable Henok Hendrix MA Unavailable Unavailable Encounter Details Date Type Department Care Team (Late st Contact Info) Description 04/22/2024 Orders Only [facility] [address] [place] [address] Betty Singh NP Social History Tobacco Use Types Packs/Day Years [...] often do you attend chur ch or hoahaoism services? Never 12/08/2023 Do you belong to any clubs o r organizations such as orthodoxy groups, unions, fraternal or athletic groups, or [...] Recorded Patient Health Questionnaire-2 Score 0 03/24/2024 [facility] of Occupat ional Health - Occupational [...] place to sleep or slept in a senior care (including now)? No 12/08/2023 Comments Unknown Sex [...] Office Visit [facility] [address] [place] [address] Wendy Burden NP [address] [place] [address] documented as of this encounter Procedures Procedure Name Priority Date/Time Associated Diagnosis Comments MISCELLANEOUS LAB TEST Routine 04/21/2024 9:22 AM EDT documented in this encounter Results * - Miscellaneous Test (04/21/2024 9:22 AM EDT) Betty Singh NP LAB BLOOD ORDERABLES Fin al Result documented in this encounter Visit Diagnoses Not on filedocumented in this encounter Additional Health Concerns Assessment Noted Time PHQ-9 Depression Total Score: 5 07/09/20 23 2:09 PM EST A fall risk assessment has been complete d for the patient 12/08/2023 9:26 AM EDT documented as of this encounter Care Teams Pilling Machine Operator Relationship Specialty Start Date End Date Charanjit Chen MD [address] [place] [address] PCP - General Family Medicine 02/11/24 Betty Singh NP [address] [place] [address] Nurse Practitioner Family Medicine 02/11/24 11/20/24 Anne Hartley LPN Licensed Practical Nurse Family Medicine 03/25/2405/24 Henok Hendrix MA Family Medicine 05/24/24 documented as of this encounter
--- OUTSIDE RECORDS SUMMARY | 2024-12-03 13:45 | XMS_ITS | Encounter Summary ---
Author Organization [facility] Address [address] [place] [address] Care Team Providers Care Auto Technician Mechanic Name Role Phone Flower Stokes LPN Unavailable Unavailable Charanjit Chen MD Primary Care Provider [phone] Betty Singh NP Unavailable [phone] Anne Hartley LPN Unavailable Unavailable Henok Hendrix MA Unavailable Unavailable Encounter Details Date Type Department Care Team (Late st Contact Info) Description 03/10/2024 Clinisync Result Encounter [facility] External Department Unsolicited [...] often do you attend chur ch or tenriism services? Never 12/08/2023 Do you belong to any clubs o r organizations such as mandaen groups, unions, fraternal or athletic groups, or [...] Recorded Patient Health Questionnaire-2 Score 0 02/22/2024 [facility] Questionnaire Answer Date [...] place to sleep or slept in a skilled nursing (including now)? No 12/08/2023 Comments Unknown Sex and Gender Information Value Date Recorded Sex Assigned at Not on file Legal Sex Female 12:29 PM EDT Gender Identity Not on file Sexual Orientation Not on file documented as of this encounter Plan of Treatment Upcoming Encounters Date Type Department Care Team (Late st Contact Info) Description 01/26/2025 10:30 AM EDT Office Visit [facility] [address] [place] [address] Wendy Burden NP [address] [place] [address] documented as of this encounter Procedures Procedure Name Priority Date/Time Associated Diagnosis Comments BRONCHOSCOPY W OR WO FLUORO 03/10/2024 7:34 AM EDT documented in this encounter Results * BRONCHOSCOPY W OR WO FLUORO (03/10/2024 7:34 AM EDT) Anatomical Region Laterality Modality Radiographic Meagan ging 03/10/2024 7:34 AM EDT Narrative 03/10/2024 7:36 AM EDT The [address] [address] Fluoroscopy Report Signed Patient: BHUPENDRA MIRANDA MR#: [id number] : 1950 Acct:[id number] Age/Sex: 73 / F ADM Date: 03/09/24 Loc: SURGOUT Attending Dr: Leigh Thompson D.O. Ordering Physician: Leigh Thompson D.O. Date of Service: 03/09/24 Procedure(s): FL Bronchoscopy NO CHARGE Accession Number(s): [id number] cc: BETTY SINGH; Leigh Thompson D.O. [facility] [place] [id number] Patient Name: BHUPENDRA MIRANDA MRN: [facility]:[id number] date: 1950 Sex: F Assigned Patient Location: [facility] Current Patient Location: Accession/Order Number: [id number] Exam Date: 03/09/2024 12:45 Report Date: 03/10/2024 07:34 At the request of: LEIGH THOMPSON Procedure: FL Bronchoscopy NO CHARGE EXAM: FL Bronchoscopy NO CHARGE HISTORY: Bronchoscopy COMPARISON: None. TECHNIQUE: 12.5 seconds of fluoroscopy. 1.56 mg FINDINGS: Single intraprocedural image of the chest, situs is not level. Bronchoscopy catheter projects over the mid thorax FL/FL Bronchoscopy NO CHARGE IMPRESSION: Intraprocedural image from bronchoscopy Electronically authenticated by: JEFF MELTON Date: 03/10/2024 07:34 Dictated By: Jeff Melton M.D. Signed By: 03/10/24 0736 DD/ 0734 TD/TT: Ophthalmology Surgical Technician: Procedure Note Radiology, Radiologist, MD - 03/10/2024 [place] [address] Fluoroscopy Report Signed Patient: BHUPENDRA MIRANDA MMR#: [id number] : 1950cct:[id number] Age/Sex: 73 / FADM Date: 03/09/24 Loc: SURGOUT Attending Dr: Leigh Thompson D.O. Ordering Physician: Leigh Thompson D.O. Date of Service: 03/09/24 Procedure(s): FL Bronchoscopy NO CHARGE Accession Number(s): [id number] cc: LYNETTE SINGH Nathan D.O. [address] [address] Patient Name: BHUPENDRA MIRANDA MRN: [facility]:[id number] date: 1950 Sex: F Assigned Patient Location: SURGOUT Current Patient Location: Accession/Order Number: [id number] Exam Date: 03/09/2024 12:45 Report Date: 03/10/2024 07:34 At the request of: LEIGH THOMPSON Procedure: FL Bronchoscopy NO CHARGE EXAM: FL Bronchoscopy NO CHARGE HISTORY: Bronchoscopy COMPARISON: None. TECHNIQUE: 12.5 seconds of fluoroscopy. 1.56 mg FINDINGS: Single intraprocedural image of the chest, situs is not level.Bronchoscopy catheter projects over the mid thorax FL/FL Bronchoscopy NO CHARGE IMPRESSION: Intraprocedural image from bronchoscopy Electronically authenticated by: JEFF MELTON Date: 03/10/2024 07:34 Dictated By: Jeff Melton M.D. Signed By:03/10/2436 DD/ TD/TT: Ophthalmology Surgical Technician: us Generic External Data Provider IMG XR PROCEDURES Final Result documented in this encounter Visit Diagnoses Not on filedocumented in this encounter Additional Health Concerns Assessment Noted Time PHQ-9 Depression Total Score: 5 07/09/20 23 2:09 PM EST A fall risk assessment has been complete d for the patient 12/08/2023 9:26 AM EDT documented as of this encounter Care Teams Auto Technician Mechanic Relationship Specialty Start Date End Date Charanjit Chen MD [address] [place] [id number] PCP - General Family Medicine 02/11/24 Flower Stokes LPN Licensed Practical Nurse Family Medicine 11/26/23 Betty Singh NP [address] [place] [address] Nurse Practitioner Family Medicine 02/11/24 11/20/24 Anne Hartley LPN Licensed Practical Nurse Family Medicine 03/25/2405/24 Henok Hendrix MA Family Medicine 05/24/24 documented as of this encounter
--- OUTSIDE RECORDS SUMMARY | 2024-12-03 13:45 | XMS_ITS | Clinical Summary ---
Author Organization [facility] Address [address] [place] [address] Care Team Providers Care Trimmer Meat Name Role Phone Eryn Lundberg MD Unavailable [phone] Eryn Lundberg MD Primary Care Provider [phone] Allergies No known active allergies Medications Medication [...] 13 07/03/2022 Pneumococcal Conjugate PCV 20 07/09/2022 Family History Medical History Relation Name Comments Lung cancer Mother blood clots Sister Relation Name Status Comments Mother Sister Social History Tobacco Use Types Packs/Day Years [...] 06/21/2024 11:40 AM EST Plan of Treatment Health Maintenance Due Date Last Done Comments CT Colonography 1952 FIT-DNA 1952 FIT 1952 FOBT 1950 Medicare Annual Wellness (AWV) 1950 Sigmoidoscopy 1952 Adult Tetanus 1974 Mammogram 1992 Zoster Vaccines (1 of 2) 2002 COVID-19 Vaccine (2023-2 5 season) 2024 Influenza Vaccine (Season Ended) 2025 Depression Screening 04/28/2025 04/28/2024 Fall Risk Screening 04/28/2025 04/28/2024 Colonoscopy 06/21/2034 06/21/2024 Colorectal Cancer Screening 06/21/2034 Pneumococcal Vaccine: 65+ Years Completed 07/09/2022, 07/03/2022 HIB Vaccines Aged Out No longer eligi ble based on patient's age to complete this topic HPV Vaccines Aged Out No longer eligi ble based on patient's age to complete this topic IPV Vaccines Aged Out No longer eligi ble based on patient's age to complete this topic Meningococcal B Vaccine Aged Out No l onger eligible based on patient's age to complete this topic Meningococcal Vaccine Aged Out No agata alice eligible based on patient's age to complete this topic Rotavirus Vaccines Aged Out No longer eligible based on patient's age to complete this topic Procedures Procedure Name Priority Date/Time Associated Diagnosis [...] - TISSUE EXAM Marlo Borden LPN 06/21/2024 1425 D : Polyp Large Intestine, Hepatic Flexure HISTOLOGY - TISSUE EXAM Marlo Borden LPN 06/21/2024 1429 Complications: None Estimated blood loss: [...] Recently Relevant to Health Maintenance Care Teams Trimmer Meat Relationship Specialty Start Date End Date Eryn Lundberg MD [address] [place] [address] [address] [place] [address] PCP - General Oncology 06/21/24 Eryn Lundberg MD [address] [place] [address] [address] [place] [address] Consulting Physician Oncology 05/27/24
--- OUTSIDE RECORDS SUMMARY | 2024-12-03 13:45 | XMS_ITS | Encounter Summary ---
Author Organization [facility] Address [address] [place] [address] Care Team Providers Care Transportation Aide Name Role Phone Charanjit Chen MD Primary Care Provider [phone] Henok Hendrix MA Unavailable Unavailable Encounter Details Date Type Department Care Team (Late st Contact Info) Description 12/02/[address] [facility] [address] [place] [address] Henok Hendrix MA Social History Tobacco Use Types Packs/Day Years [...] often do you attend chur ch or protestant services? Never 12/08/2023 Do you belong to any clubs o r organizations such as alevism groups, unions, fraternal or athletic groups, or [...] Answer Date Recorded Patient Health Questionnaire-2 Score 1 08/02/2024 [facility] - Occupational Stress Questionnaire Answer Date Recorded [...] place to sleep or slept in a long term (including now)? No 12/08/2023 Comments No Sex and Gender Information Value Date Recorded Sex Assigned at Not on file Legal Sex Female 12:29 PM EDT Gender Identity Not on file Sexual Orientation Not on file documented as of this encounter Progress Notes * Henok Hendrix MA - 12/02/2024 8:51 AM EDT Plant Protection Supervisor spoke with pt this morning. Pt was informed that Wendy sent in a stat referral to [facility] for her. Office number was provided to pt. Pt also informed should she fall again and its accompanied with vomiting that she needs to go to ER. Wendy recommended she go to [facility]. If there would be something she would need admitted for she would get a neuro consult sooner that way as well. Pt stated she hasn't fallen since that day. When she did fall she denies hitting her head. But she did voice understanding and is agreeable to go if needed. Pt is still experiencing shaking in both arms and is still having difficulty eating, cutting up herfood, writing etc. When I gave her the office number I had to give her one number at a time so she could attempt to write it down. She did read back the correct number though. Will change outreach to monthly due to patient's current condition. Care Plan updated as well. documented in this encounter Plan of Treatment Upcoming Encounters Date Type Department Care Team (Late st Contact Info) Description 01/26/2025 10:30 AM EDT Office Visit [facility] [address] [place] [address] Wendy Burden NP [address] [place] [address] documented as of this encounter Visit Diagnoses Diagnosis Moderate COPD (chronic obstructive pulmonary disease) (CMS/HCC)- Primary Hypertension, unspecified type (CMS/HCC) documented in this encounter Additional Health Concerns Assessment Noted Time PHQ-9 Depression Total Score: 10 025 11:00 AM EST A fall risk assessment has been complete d for the patient 12/08/2023 9:26 AM EDT documented as of this encounter Care Teams Transportation Aide Relationship Specialty Start Date End Date Charanjit Chen MD [address] [place] [place] [address] PCP - General Family Medicine 02/11/24 Henok Hendrix MA Family Medicine 05/24/24 documented as of this encounter
--- OUTSIDE RECORDS SUMMARY | 2024-12-03 13:46 | XMS_ITS | Encounter Summary ---
Author Organization [facility] Address [address] [place] [address] Care Team Providers Care Senior Executive Compensation Analyst Name Role Phone Unavailable Primary Care Provider Unavailabl e Source Comments In the event this information is protected by the Federal Confidentiality of Alcohol and Drug AbusePatient Records regulations: The Federal rules restrict any use of the information to criminally investigate or prosecute any alcohol or drug abuse patient.[facility] Encounter Details Date Type Department Care Team (Late st Contact Info) Description 05/24/2024 Lab Requisition [facility] [address] [place] [address] Javier Villanueva [address] [phone] Person encountering health services to consult on behalf of another person Social History Tobacco Use Types Packs/Day Years Used Date Smoking Tobacco: Never Assessed Comments Unknown Sex and Gender Information Value Date Recorded Sex Assigned at Not on file Legal Sex Female 2:11 PM EST Gender Identity Not on file Sexual Orientation Not on file documented as of this encounter Plan of Treatment Not on file documented as of this encounter Procedures Procedure Name Priority Date/Time Associated Diagnosis Comments SURGICAL PATHOLOGY REFERENCE LAB CONSULT Routine 05/24/2024 11:27 AM EST Person encountering health services to consult on behalf of another person documented in this encounter Results * SURGICAL PATHOLOGY REFERENCE LAB CONSULT (05/24/2024 11:27 AM EST) Case Report Surgical Pathology Report Case: [id number] Authorizing Provider: Javier Villanueva Collected: 05/24/2024 11:27 AM Ordering Location: [facility] Received: 05/24/2024 11:26 AM [facility] Pathologist: Leroy Zayas MD, PhD Specimen: Slide(s), 16 SLIDES [id number] 05/26/2024 1:51 PM EST [facility] FINAL DIAGNOSIS A. 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 - See comment. 05/26/2024 1:51 PM EST [facility] at 1351 EST Diagnosis Comment Thank you for allowing us the opportunity to review this case in consultation representing the colon polyp biopsies from the 73-year-old female. Per provided letter and patient note, the title insurance sales representative felt the polyp was completely removed. Histologic [...] to contact the GI consultation service at [phone] with questions or if additional follow-up information becomes available. This case was reviewed in conjunction with the GI pathology fellow, Sangita Rai M.D. 05/26/2024 1:51 PM EST [facility] Clinical History CONSULT REQUESTED 05/26/2024 1:51 PM EST [facility] Performing Lab Diagnostic interpretation performed at: [facility], [address] [place] [address] CLIA# [id number] Manager Programs: Henri Mireles MD 05/26/2024 1:51 PM EST [facility] Blocks or Slides MICROSCOPE SLIDE / Unknown 05/24/2024 11:27 AM EST 05/24/2024 11:26 AM EST us Javier Villanueva SURGICAL PATHOLOGY Final Result [facility] [address] [place], [place] [id number], documented in this encounter Visit Diagnoses Diagnosis Person encountering health services to consult on behalf of another person Other person consulting on behalf of another person documented in this encounter
--- OUTSIDE RECORDS SUMMARY | 2024-12-03 13:46 | XMS_ITS ---
Author Organization [facility] Address [address] [place] [address] Care Team Providers Care Mucker Cofferdam Name Role Phone Charanjit Chen MD Primary Care Provider [phone] Henok Hendrix MA Unavailable Unavailable 30 Day Monitoring Program Status:Closed (Closed) Start date:10/19/2024 Enrollment date:10/19/2024 Enrollment reason:Identified from transitional care managment End date:11/21/2024 Close reason:Actively enrolled in CCM Continued Care and Services Coordination
--- OUTSIDE RECORDS SUMMARY | 2024-12-03 13:46 | XMS_ITS | Encounter Summary ---
Author Organization [facility] Address [address] [place] [address] Care Team Providers Care Senior Military Analyst Name Role Phone Shaikh NAHEED Horan Primary Care Provider [phone] Flower Stokes LPN Unavailable Unavailable Charanjit Chen MD Primary Care Provider [phone] Betty Singh HARDBOARD FACTORY WORKER Unavailable [phone] Anne Hartley INJECTION MOLDING MACHINE OFFBEARER Unavailable Unavailable Henok Hendrix MA Unavailable Unavailable Encounter Details Date Type Department Care Team (Late st Contact Info) Description 12/30/2023 Abstract [facility] [address] [place] [address] Shaikh Horan MD [address] [place] [phone] Social History Tobacco Use Types Packs/Day Years Used Date Smoking Tobacco: Every Day Cigarettes 0.5 55 Passive Smoke Exposure: Current Smokeless Tobacco: Never [...] How often do you attend chur or jain services? Never 12/08/2023 Do you belong to any clubs o r organizations such as taoism groups, unions, fraternal or athletic groups, or [...] Date Recorded Patient Health Questionnaire-2 Score 0 11/09/2023 [facility] - Occupational Stress [...] place to sleep or slept in a jail (including now)? No 12/08/2023 Comments Unknown Sex [...] Visit [facility] [address] [place] [address] Wendy Burden NP [address] [place] [address] documented as of this encounter Visit Diagnoses Not on filedocumented in this encounter Additional Health Concerns Assessment Noted Time PHQ-9 Depression Total Score: 5 07/09/20 23 2:09 PM EST A fall risk assessment has been complete d for the patient 12/08/2023 9:26 AM EDT documented as of this encounter Care Teams Senior Military Analyst Relationship Specialty Start Date End Date Shaikh Horan MD [address] [place] [phone] PCP - General Internal Medicine 10/12/23 02/10/24 Charanjit Cehn MD [address] [place] [phone] PCP - General Family Medicine 02/11/24 Flower Stokes LPN Licensed Practical Nurse Family Medicine 11/26/23 Betty Singh NP [address] [place] [address] Nurse Practitioner Family Medicine 02/11/24 11/20/24 Anne Hartley LPN Licensed Practical Nurse Family Medicine 03/25/2405/24 Henok Hendrix MA Family Medicine 05/24/24 documented as of this encounter
--- OUTSIDE RECORDS SUMMARY | 2024-12-03 13:46 | XMS_ITS | Clinical Summary ---
Author Organization [facility] Address [address] [place] [address] Care Team Providers Care Cost Accountant Name Role Phone Unavailable Primary Care Provider Unavailabl e Social History Tobacco Use Types Packs/Day Years Used Date Smoking Tobacco: Never Assessed Comments Unknown Sex and Gender Information Value Date Recorded Sex Assigned at Not on file Legal Sex Female 2:11 PM EST Gender Identity Not on file Sexual Orientation Not on file Plan of Treatment Not on file Insurance [employer]
--- OUTSIDE RECORDS SUMMARY | 2024-12-03 13:46 | XMS_ITS | Encounter Summary ---
Author Organization [facility] Address [address] [place] [address] Care Team Providers Care Rehab Therapy Manager Name Role Phone Charanjit Chen MD Primary Care Provider [phone] Henok Hendrix MA Unavailable Unavailable Reason for Referral * Consultation (Stat) - Authorized Specialty Diagnoses / Procedures Referred By Dionne michael Referred To Contact Neurology Diagnoses Cerebrovascular accident (CVA), unspecified mechanism (CMS/HCC) Syncope and collapse Peripheral polyneuropathy Procedures [place] OFFICE/OUTPATIENT NEW HIGH MDM 60 MINUTES Wendy Burden NP [address] [place] [address] Phone: tel: fax: Matti Almaraz MD [address] [place] [address] Phone: tel: fax: Referral ID Status Reason Start Date Expiration Date Visits Requested Visits Authorized [id number] Authorized Specialty Services Required 12/01/2024 05/30/2025 1 1 Encounter Details Date Type Department Care Team (Late st Contact Info) Description 12/01/2024 Orders Only [facility] [address] [place] [address] Wendy Burden NP [address] [place] [address] Cerebrovascular accident (CVA), unspecified mechanism (CMS/HCC) (Primary Dx); Syncope and collapse; Peripheral polyneuropathy Social History Tobacco Use Types Packs/Day Years [...] week 12/08/2023 How often do you attend [facility] or hinduism services? Never 12/08/2023 Do you belong to any clubs o r organizations such as methodist groups, unions, fraternal or athletic groups, or [...] Recorded Patient Health Questionnaire-2 Score 1 08/02/2024 [facility] Occupat ional Health - Occupational [...] place to sleep or slept in a correction (including now)? No 12/08/2023 Comments No Sex and Gender Information Value Date Recorded Sex Assigned at Not on file Legal Sex Female 12:29 PM EDT Gender Identity Not on file Sexual Orientation Not on file documented as of this encounter Plan of Treatment Upcoming Encounters Date Type Department Care Team (Late st Contact Info) Description 01/26/2025 10:30 AM EDT Office Visit [facility] [address] [place] [address] Wendy Burden NP [address] [place] [address] Scheduled Referrals Name Type Priority Associated Diagnoses Orde r Schedule Ambulatory referral to Neurology Outpatient Referral STAT Cerebrovascular accident (CVA), unspecified mechanism (CMS/HCC) Syncope and collapse Peripheral polyneuropathy Expected: 12/01/2024 (Approximate), Expires: 06/03/2025 documented as of this encounter Visit Diagnoses Diagnosis Cerebrovascular accident (CVA), unspecified mechanism (CMS/HCC)- Primary Syncope and collapse Peripheral polyneuropathy documented in this encounter Additional Health Concerns Assessment Noted Time PHQ-9 Depression Total Score: 10 025 11:00 AM EST A fall risk assessment has been complete d for the patient 12/08/2023 9:26 AM EDT documented as of this encounter Care Teams Rehab Therapy Manager Relationship Specialty Start Date End Date Charanjit Chen MD [address] [place] [address] PCP - General Family Medicine 02/11/24 Henok Hendrix MA Family Medicine 05/24/24 documented as of this encounter
--- OUTSIDE RECORDS SUMMARY | 2024-12-03 13:46 | XMS_ITS | Encounter Summary ---
Author Organization [facility] Address [id number] [address] [place] [address] Care Team Providers Care Coal Hauler Name Role Phone Singh, Betty Jonathan GYM ATTENDANT-MARKET MASTER Primary Care Pr ovider Encounter Details Date Type Department Care Team (Late st Contact Info) Description 06/15/2024 Orders Only [facility] [address] [place] [phone] Transcribe, Orders Support User Pain (Primary Dx) Social History Tobacco Use Types Packs/Day Years Used Date Smoking Tobacco: Former Cigarettes Smokeless Tobacco: Never Alcohol Use Standard Drinks/Week Comments Not Currently 0 (1 standard drink = 0.6 oz pur e alcohol) [facility] Utilities Answer Date Recorded In the past 12 months has [employer], oil, or water [employer] threatened to shut off services in your [...] [place] RN documented as of this encounter Mental Status * Question Answer Entry Date Author Overall Cognitive Status X 06/17/2024 10:31 AM Isabella Rosen OTR/L documented in this encounter Plan of Treatment Not on file documented as of this encounter Goals Goal Patient Goal Type Associated Problems Recent Progress Patient-Stated? Author return home General Yes Brigitte Be RN Note: Evaluation of progress towards goal: Significant other hopes patient will be able to return home documented as of this encounter Results * CT brain without contrast (06/14/2024 4:15 PM EST) us Scanning Provider External IMG CT ORDERABLES Fin al Result documented in this encounter Visit Diagnoses Diagnosis Pain- Primary Generalized pain documented in this encounter Additional Health Concerns Infection Onset Date Last Indicated Resolved Time Meningitis Rule-Out 06/15/2024 06/15/2024 06/15/20 6:18 PM EST documented as of this encounter Care Teams Coal Hauler Relationship Specialty Start Date End Date Betty Singh, GYM ATTENDANT-MARKET MASTER [address] [place] [address] PCP - General Nurse Practitioner 06/13/24 documented as of this encounter
--- OUTSIDE RECORDS SUMMARY | 2024-12-03 13:46 | XMS_ITS | Clinical Summary ---
Author Organization [facility] Address [address] [place] [address] Care Team Providers Care Ux Specialist Name Role Phone Charanjit Chen MD Primary Care Provider [phone] Henok Hendrix MA Unavailable Unavailable Allergies No known active allergies Medications albuterol HFA 90 mcg/act inhalerIndications :Moderate COPD (chronic obstructive pulmonary disease) (CMS/HCC) Inhale 2 puffs every 4 (four) hours if needed for wheezing or shortness of breath 6.7 g 11/26/19 24 Active Budeson-Glycopyrro l-Formoterol (Breztri Aerosphere) 160-9-4.8 MCG/ACT aerosolIndications :Moderate COPD (chronic obstructive pulmonary disease) (CMS/HCC) Inhale 2 puffs in the morning and 2 puffs before bedtime. 10.7 g 2 06/27/20 24 Active gabapentin (Neurontin) 300 MG capsuleIndications :Other polyneuropathy Take 1 capsule (300 mg) by mouth in the morning and 1 capsule (300 mg) in the evening and 1 capsule (300 mg) before bedtime. 270 capsule 08/02/19 25 Active lacosamide (Vimpat) 100 MG tabletIndications: Alteration of awareness Take 1 tablet (100 mg) by mouth in the morning and 1 tablet (100 mg) before bedtime. 60 tablet 1 09/27/19 25 Active lamoTRIgine (LaMICtal) 150 MG tabletIndications: Alteration of awareness Take 1 tablet (150 mg) by mouth in the morning. 30 tablet 2 09/27/19 25 Active apixaban (Eliquis) 5 MG tabletIndications: Cerebrovascular accident (CVA), unspecified mechanism (CMS/HCC) Take 1 tablet (5 mg) by mouth in the morning and 1 tablet (5 mg) before bedtime. 180 tablet 10/28/19 25 025 Active atorvastatin (Lipitor) 80 MG tabletIndications: Cerebrovascular accident (CVA), unspecified mechanism (CMS/HCC) Take 1 tablet (80 mg) by mouth Daily 90 tablet 10/28/19 25 025 Active losartan (Cozaar) 25 MG tabletIndications: Primary hypertension (CMS/HCC) Take 1 tablet (25 mg) by mouth Daily 90 tablet 1 10/28/19 25 025 Active traZODone (Desyrel) 100 MG tabletIndications: Psychophysiologica l insomnia Take 1 tablet (100 mg) by mouth at bedtime 90 tablet 1 10/29/19 25 025 Active LORazepam (Ativan) 0.5 MG tabletIndications: Anxiety Take 1 tablet (0.5 mg) by mouth Daily as needed for anxiety for up to 15 days 15 tablet 11/16/19 25 Active LORazepam (Ativan) 0.5 MG tabletIndications: Anxiety Take 1 tablet (0.5 mg) by mouth Daily as needed for anxiety for up to 7 days 7 tablet 10/29/19 25 025 Discontinu ed(Reorder ) cephalexin (Keflex) 500 MG capsuleIndications :Urinary tract infection symptoms,UTI symptoms Take 1 capsule (500 mg) by mouth in the morning and 1 capsule (500 mg) before bedtime. Do all this for 7 days. 14 capsule 11/03/19 25 025 Active Problems Problem Noted Date Diagnosed Date UTI symptoms 11/02/2024 Overview (11/02/2024): Pt came in today to the office to check for UTI symptoms via POCT urinalysis dipstick Anxiety 10/28/2024 Malignant neoplasm of unspec ified part of left bronchus or lung 10/27/2024 Adenocarcinoma of left lung 10/27/2024 Assessment & Plan (10/27/2024 4:59 PM EDT): Continue with oncology Centrilobular emphysema 10/27/2024 alf (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 steroids 10/11 Mass of right parotid gland 10/27/2024 Prediabetes 10/06/2024 Family history of prothrombin gene mutation 09/11 CVA (cerebral vascular accident) 05/18/2024 Assessment & Plan (10/28/2024 11:55 AM EDT): recent hospitalization at [facility] around 10/04/24, was also sent to [facility] for rehab as well Current meds: eliquis (although this was not sent to pharmacy) I did send in script for this We discussed need for home health PT/OT-she refuses too many bills and states its just a way for them to get money I did explain that if she changed her mind to let me know. Pt expresses frustration with her health. She is told when she sees neurology that there is nothing wrong, and said the same when in hospital. I explained to her that when she has had repeat scans, they are not finding NEW strokes, however her symptoms could be TIA's, and we discussed what that means etc. I did offer her to see a new Neurologist as she is frustrated with current, but she declined and said she would still continue to go to be seen Gastroesophageal reflux disease 05/18/2024 Carcinoma in situ of ascending colon 05/10/2024 Heart disease 04/27/2024 Mass of left lung 01/04/2024 Assessment & Plan (05/31/2024 9:44 AM EST): Bronchoscopy done: PET SCAN indicated advancing growth of lung nodules; Had EBUS. Following with Dr. Olamide Lange/bib closely. Referral sent to GI: Increased activity into ascending colon on PET scan. Had colonoscopy, is scheduled for additional. Pathology reports pending. Assessment & Plan (03/25/2024 1:46 PM EDT): Bronchoscopy done: PET SCAN indicated advancing growth of lung nodules; Following with Dr. Olamide Lange/bib closely. Referral sent to GI: Increased activity into ascending colon on PET scan. Recommended colonoscopy: Having colonoscopy tomorrow Assessment & Plan (01/26/2024 9:26 AM EDT): 2.2 cm left upper lobe mass on CTA performed at [facility] on 12/27/23 in ED visit. Smoker - recently quit LDCT 08/04 - No left upper lobe mass. PET scan - lung nodule in left upper lobe is hypermetabolic. Refer to Oncology. Dr Grossman, also made aware. Assessment & Plan (01/06/2024 2:59 PM EDT): 2.2 cm left upper lobe mass on CTA performed at [facility] on 12/27/23 in ED visit. Smoker - quite one week ago. LDCT 08/04 - No left upper lobe mass. Given the appearance, size, hx of longt erm smoking - finding on CTA chest is very concerning for a malignancy. Will order PETCT - discussed with Dr Grossman. Will follow up after PET. Assessment & Plan (01/04/2024 3:42 PM EDT): 2.2 cm left upper lobe mass on CTA performed at [facility] on 12/27/23 in ED visit. Smoker - quite one week ago. She is established with Dr Grossman and will reach out to him to see him for an earlier appointment to discuss this new finding. Previous hx of suspicious lung nodules. Syncope and collapse 01/04/2024 Assessment & Plan (01/04/2024 4:03 PM EDT): Syncope - preceded by lightheaded, nauseous. Passed out for 1 min. She feels intermittently dizzy and lightheaded and as a result she was taken off of her antihypertensives, she was previously on amlodipine/imdur. Was confused after regaining consciousness. Patient went to [facility]. CTA - No PE Will get an ECHO to assess cardiac structure and order holter monitor. History of colon polyps 10/12/2023 Assessment & Plan (02/22/2024 2:51 PM EDT): Would like GI referral- IBS and changes in bowel habits; Had cologuard done in 2022 But would like Colonoscopy done as well./ History of prolapse of bladder 10/12/2023 Mixed incontinence 10/12/2023 Chronic abdominal pain 10/12/2023 Assessment & Plan (02/22/2024 2:51 PM EDT): Would like GI referral- IBS and changes in bowel habits; Had cologuard done in 2022 But would like Colonoscopy done as well. Assessment & Plan (10/12/2023 2:00 PM EDT): Chronic abdominal pain. Usually responds to dicyclomine and improves with bowel movement. She still has not gotten in touch with GI. She will call and make an appointment. Infrarenal abdominal aortic aneurysm (AAA) witho ut rupture 07/09/2023 Hyperlipidemia 07/09/2023 Assessment & Plan (10/27/2024 6:44 AM EDT): On statin therapy Check labs yearly and prn dose changes Assessment & Plan (03/24/2024 11:57 AM EDT): Initiated statin therapy 2 weeks ago in addtion to Zetia; Lipid panel elevated. Recheck in 3 months Assessment & Plan (02/22/2024 2:31 PM EDT): Continue Zetia as directed. Labs ordered. Assessment & Plan (10/12/2023 1:58 PM EDT): Lipid panel 07/04 - LDL 130, cholesterol 213 Hx of CVA, HTN, current smoker. Above treatment goal. On 80 mg Lipitor.Zetia was added to her regimen Check lipid panel Assessment & Plan (07/09/2023 11:09 PM EST): Lipid panel 07/04 - LDL 130, cholesterol 213 Hx of CVA, HTN, current smoker. Above treatment goal. On 80 mg Lipitor. She reports compliance with statin. Add Zetia. Follow up Lipid panel in 2 months. Hypertension 07/09/2023 Assessment & Plan (10/27/2024 5:04 PM EDT): Does not take any medications for this, at closer look, she was taking losartan 25mg daily, however I think that it may have been omitted when in hospital, so I will re order, as I do not think it should be discontinued Assessment & Plan (03/25/2024 1:45 PM EDT): Currently taking Checks BP at home; Averages are 120's-130's. Denies orthostatic changes, dizziness, cough, shortness of breath, swelling in extremities. Continue current regimen. Given BP log, advised pt to record BP and bring log back with them to next visit. Assessment & Plan (02/22/2024 2:30 PM EDT): BP today 130/100- slightly elevated Continue to monitor BP at home (Stopped Isosorbide previously due to syncope) Assessment & Plan (01/04/2024 3:38 PM EDT): On average less than 110/90 Denies lightheadedness, dizziness, syncope, presyncope. Patient encouraged to continue with home BP monitoring and call office if he experiences orthostatic symptoms or persistently elevated BP. Not on amlodipine anymore and it was discontinued. Not on Imdur Assessment & Plan (11/09/2023 1:37 PM EDT): BP too tightly controlled. On average less than 110/90 Tolerating Anti hypertensive w/o adverse effects. Denies lightheadedness, dizziness, syncope, presyncope. Patient encouraged to continue with home BP monitoring and call office if he experiences orthostatic symptoms or persistently elevated BP. Not on amlodipine anymore and it was discontinued. Assessment & Plan (10/12/2023 1:57 PM EDT): BP too tightly controlled. On average less than 110/90 Tolerating Anti hypertensive w/o adverse effects. Denies lightheadedness, dizziness, syncope, presyncope. Patient encouraged to continue with home BP monitoring and call office if he experiences orthostatic symptoms or persistently elevated BP. discontinue amlodipine. Assessment & Plan (07/09/2023 11:06 PM EST): BP well controlled. On average less than 130/90. Tolerating Anti hypertensive w/o adverse effects. Denies lightheadedness, dizziness, syncope, presyncope. Patient encouraged to continue with home BP monitoring and call office if he experiences orthostatic symptoms or persistently elevated BP. C/w amlodipine Peripheral polyneuropathy 07/09/2023 Assessment & Plan (10/27/2024 6:46 AM EDT): Follows with Neurology for this Current meds: lacosamide, gabapentin Assessment & Plan (10/12/2023 1:54 PM EDT): Controlled with gabapentin. Normal b12, folate. RLS (restless legs syndrome) 07/09/2023 Assessment & Plan (10/12/2023 1:53 PM EDT): Well controlled on Requip. Cw/ same. Normal Ferritin, B12 levels. Assessment & Plan (07/09/2023 11:05 PM EST): Well controlled on Requip. Cw/ same. Normal Ferritin, B12 levels. Moderate COPD (chronic obstructive pulmonary dis ease) 07/09/2023 Assessment & Plan (02/22/2024 2:44 PM EDT): Stop Trelegy Will order Noemí-Ellipta and see if insurance will cover. Follow up with Pulmonology MAR[facility]. Assessment & Plan (01/04/2024 3:29 PM EDT): Reports improvement in overall respiratory symptoms since she started using trelegy. Former smoker - quite 7 days ago with Chantix C/w trelegy. Assessment & Plan (11/09/2023 1:36 PM EDT): Reports improvement in overall respiratory symptoms since she started using trelegy. Current smoker. She reports decreased functional capacity due to chronic PRECIADO, and intermittent cough but has not been able to use any of the inhalers prescribed to her due to high deductible plan. She uses albuterol as needed. Patient encouraged to quit smoking. We had to provide her trelegy samples. Assessment & Plan (10/12/2023 1:55 PM EDT): Current smoker. Patient was referred to Pulmonary medicine. She reports decreased functional capacity due to chronic PRECIADO, and intermittent cough but has not been able to use any of the inhalers prescribed to her due to high deductible plan. She uses albuterol as needed. Patient encouraged to quit smoking. I will provide her samples of trelegy to see if she responds to it. Assessment & Plan (07/09/2023 11:06 PM EST): Current smoker. Patient was referred to Pulmonary medicine. She reports decreased functional capacity due to chronic PRECIADO, and intermittent cough but has not been able to use any of the inhalers prescribed to her due to high deductible plan. She uses albuterol as needed. Patient encouraged to quit smoking. Tobacco dependency 07/09/2023 Assessment & Plan (10/27/2024 6:45 AM EDT): The patient has been advised of the risks of continued smoking: stroke, ID, all forms of cancer, lung disease, and . Options for quitting smoking include: cold turkey, hypnosis, acupuncture, nicotine replacement meds (gum, lozenges, and patches), Buproprion, and Varenicline. At this time pt is encouraged to evaluate their goals for wanting to quit smoking, and reach out to provider when ready to start this process Assessment & Plan (07/09/2023 11:09 PM EST): Patient counseled on smoking/tobacco cessation. Patient educated on harmful effects of smoking cigarettes/tobacco including increased risk of cardiovascular diseases, chronic lung disease and multiple cancers. Patient was educated and informed of different behavioral and therapeutic interventions that can help with smoking/tobacco use. Patient's questions/concerns were addressed and answered related to therapeutic options. Patient was offered help and encouraged to reach out to provider if/when they are ready to quit. A total of over 3 minutes and up to 10 minutes were spent on Smoking/Tobacco use counseling. Prescribed nicotine patches and gum for the patient. Screening mammogram for breast cancer 07/09/2023 Assessment & Plan (07/09/2023 11:09 PM EST): Ordered mammogram. Medicare annual wellness visit, subsequent 07/09 Assessment & Plan (07/09/2023 11:12 PM EST): Patient here for Medicare Wellness. Chronic conditions stable. Reviewed labs and adjusted regimen for HLD. Patient counseled on smoking cessation - prescribed nicotine patches. Reviewed medical, surgical and social hx. Reviewed medications. Patient is scheduled for colonoscopy to follow up on Positive Cologuard. Mammogram ordered. Resolved Problems Problem Noted Date Diagnosed Date Resolved Date Urinary tract infection symptoms 11/02/2024 11/02/2024 Tobacco user 10/27/2024 10/27/2024 Acid reflux 07/09/2023 10/27/2024 Assessment & Plan (02/22/2024 2:31 PM EDT): Continue Pantoprazole as directed H/O: CVA (cerebrovascular accident) 07/09/2023 10/27/2024 Assessment & Plan (07/09/2023 11:07 PM EST): Residual dysarthria, right hemiparesis. On ASA, Statin. BP at goal. Encouraged smoking cessation Encounters Date Type Department Care Team Description 12/02/2024 Patient Outreach [facility] [id number] [place] [address] Henok Hendrix MA 12/01/[address] [facility] [address] [place] [address] Wendy Burden NP Cerebrovascular accident (CVA), unspecified mechanism (CMS/HCC) (Primary Dx); Syncope and collapse; Peripheral polyneuropathy 11/21/2024 Patient Outreach [facility] [address] [place] [address] Henok Hendrix MA 11/15/[address] [facility] [facility] [address] [place] [address] Wendy Burden NP Anxiety 11/15/2024 Orders Only [facility] [address] [place] [address] Wendy Burden NP Mixed hyperlipidemia (CMS/HCC) (Primary Dx) 11/14/2024 Patient Outreach [facility] [address] [place] [address] Henok Hendrix DE 11/09/2024 Patient Outreach [facility] [address] [place] [address] Henok Hendrix MA 11/08/2024 Patient Outreach [facility] [address] [place] [address] Henok Hendrix DE 11/02/2024 Patient Outreach [address] [place] [address] Henok Hendrix DE 11/02/2024 Refill [facility] [address] [place] [address] Wendy Burden NP Urinary tract infection symptoms (Primary Dx); UTI symptoms 11/01/2024 Patient Outreach [facility] [address] [place] [address] Henok Hendrix DE 10/28/2024 Refill [facility] [address] [place] [address] Wendy Burden NP Anxiety (Primary Dx); Psychophysiological insomnia 10/27/2024 10:30 AM EDT Office Visit [facility] [address] [place] [address] Wendy Burden NP Cerebrovascular accident (CVA), unspecified mechanism (CMS/HCC) (Primary Dx); Malignant neoplasm of unspecified part of left bronchus or lung (CMS/HCC); Adenocarcinoma of left lung (CMS/HCC); Mixed hyperlipidemia (CMS/HCC); Tobacco dependency; Peripheral polyneuropathy; Primary hypertension (CMS/HCC); Screening mammogram for breast cancer 10/27/2024 Patient Outreach [facility] [address] [place] [address] Henok Hendrix MA 10/27/2024 Patient Outreach [place] [address] [place] [address] Henok Hendrix MA 10/19/2024 Patient Outreach [address] [place] [address] Charlotte Us LPN 10/11/2024 Patient Outreach [address] [place] [address] Betty Naqvi MA 10/05/2024 Orders Only [facility] [address] [place] [address] Charanjit Chen MD 10/04/2024 Clinisync Result Encounter [facility] External Department Unsolicited Provider, Generic External Data 09/26/2024 10:40 AM EDT Office Visit [facility] [address] [address] Kianna Roman PA Alteration of awareness (Primary Dx); History of stroke 09/26/2024 Refill [facility] [address] [place] [address] Charanjit Chen MD Primary hypertension (CMS/HCC) (Primary Dx) 09/26/2024 Telephone [facility] [address] [address] Kianna Roman PA 09/26/2024 Bamboo flowsheet [facility] [address] [address] Kianna Roman PA from Last 3 Months Immunizations Immunization Administration Dates Next Due Pneumococcal Conjugate PCV 13 07/03/2022 Pneumococcal Conjugate PCV 20 07/09/2022 Family History Medical History Relation Name Comments Cancer Mother Lung Cancer Mother's Sister 1 Other cancer Sister Blood Clots Stroke Son Relation Name Status Comments Mother Mother's Sister 1 Mother's Sister 2 Alive Sister Son Social History Tobacco Use Types Packs/Day Years Used Date Smoking Tobacco: Former Cigarettes 0.5 55 Q uit: 12/28/2023 Passive Smoke Exposure: Current Smokeless Tobacco: Never Tobacco Cessation:Counseling Given: Not Answered Alcohol Use Standard Drinks/Week Comments Never 0 [...] How often do you attend chur or worship services? Never 12/08/2023 Do you belong to any clubs o r organizations such as baptism groups, unions, fraternal or athletic groups, or [...] Recorded Patient Health Questionnaire-2 Score 1 08/02/2024 [facility] - Occupational Stress Questionnaire Answer Date [...] senior care (including now)? No 12/08/2023 Comments No Sex and Gender Information Value Date Recorded Sex Assigned at Not on file Legal Sex Female 12:29 PM EDT Gender Identity Not on file Sexual Orientation Not on file Last Filed Vital Signs Vital Sign Reading Time Taken Comments Blood Pressure 112/78 10/27/2024 10:38 AM EDT Pulse 96 10/27/2024 10:38 AM EDT Temperature 36.9 C (98.5 F) 10/27/2024 10:38 AM EDT Respiratory Rate 20 10/27/2024 10:38 AM EDT Oxygen Saturation 89% 10/27/2024 10:38 AM EDT Inhaled Oxygen Concentration - - Weight 69.6 kg (153 lb 6.4 oz) 10/27/2024 10:38 AM EDT Height 157.5 cm (5' 2 ) 09/26/2024 10:21 AM EDT Body Mass Index 28.06 09/26/2024 10:21 AM EDT Plan of Treatment Upcoming Encounters Date Type Department Care Team (Late st Contact Info) Description 01/26/2025 10:30 AM EDT Office Visit [facility] [address] [place] [address] Wendy Burden NP [address] [place] [address] Health Maintenance Due Date Last Done Comments CT Colonography 1952 FIT 1952 FOBT 1950 Sigmoidoscopy 1950 Mammogram 07/03/2023 07/03/2022 Influenza Vaccine (Season Ended) 2025 Medicare Annual Wellness (AWV) 08/02/2025 0 08/02/2024, 07/09/2023, 07/09/2023 FIT-DNA 04/12/2026 04/12/2023 Colonoscopy 06/21/2034 06/21/2024, 06/12, 03/25/2024 Colorectal Cancer Screening 06/21/2034 Pneumococcal Vaccine: 65+ Years Completed , 07/03/2022 Procedures Procedure Name Priority Date/Time Associated Diagnosis Comments POCT URINALYSIS REFLEX Routine 11/02/2024 12:25 PM EDT POCT URINALYSIS DIPSTICK Routine 11/02/2024 12:22 PM EDT UTI symptoms MRI HEAD/BRAIN WO CONTRAS Routine 10/05/2024 1:54 PM EDT URINE CULTURE - [facility] Routine 10/04/2024 3:40 PM EDT [facility] FERRITIN Routine 10/04/2024 1:42 PM EDT METRO IRON AND TIBC Routine 10/04/2024 1 :42 PM EDT ALL C REACTIVE PROTEIN Routine 10/04/2024 1:42 PM EDT [facility] CMP (CMP) (FOR REMOTE [facility] USE) Routine 10/04/2024 1:42 PM EDT ALL SED RATE Routine 10/04/2024 1:42 PM EDT ALL CBC WITH AUTO DIFF Routine 10/04/2024 1:42 PM EDT from Last 3 Months Results * Urinalysis with reflex microscopic (11/02/2024 12:25 PM EDT) Urine Urine specimen obtained by clean catch procedure / Unknown Wendy Burden NP POINT OF CARE TEST ENTER/EDIT O RDERABLES Final Result * (ABNORMAL) POCT Urinalysis dipstick (11/02/2024 12:22 PM EDT) Color, UA Yellow Clarity, UA Clear Glucose, UA Negative Negative - 2000(110) ++++ mg/dL Bilirubin, UA Negative Negative - 4(70) +++ mg/dL Ketones, UA Negative Negative - 160(16) ++++ mg/dL Spec Grav, UA 1.030 1 - 1.03 Blood, UA Negative Negative - 50 Marbin/mcL pH, UA 6.0 5 - 9 Protein, UA Trace Negative - 1999(20) ++++ mg/dL Urobilinogen, UA 0.2 0.2 - 12 mg/dL Leukocytes, UA Positive Negative - 500+++ Padma/mcL Comment:small Nitrite, UA Negative Negative - Positive Urine 11/02/2024 12:2 2 PM EDT Wendy Jenise BREAKER BOSS POINT OF CARE TEST ENTER/EDIT O RDERABLES Final Result * MRI HEAD/BRAIN WO CONTRAS (10/05/2024 1:54 PM EDT) Anatomical Region Laterality Modality Radiographic Meagan ging Charanjit Chen MD IMG XR PROCEDURES Final Result * (ABNORMAL) URINE CULTURE - [facility] (10/04/2024 3:40 PM EDT) [facility] URINE CULTURE - [facility] Urine Culture - [facility] Testing performed at [facility] URINE CULTURE - [facility] [address] [place] [address] [facility] URINE CULTURE - [facility] O:KLEPNE Isolated [facility] URINE CULTURE - [facility] Urine Culture - FR Wayside Count [facility] URINE CULTURE - [facility] >100,000 CFU/ml [facility] URINE CULTURE - [facility] Organism: 1.1 Antibiotic Interpretation BAILEE Status [facility] URINE CULTURE - FR Amikacin S F(S) [facility] URINE CULTURE - [facility] Amoxicillin/Clavul anate S F(S) [facility] URINE CULTURE - [facility] Aztreonam S F(S) [facility] URINE CULTURE - [facility] Ceftazidime S F(S) [facility] URINE CULTURE - [facility] Ceftazidime/Avibac hamlin S F(S) [facility] URINE CULTURE - [facility] Ceftolozane/Tazoba ctam S F(S) [facility] URINE CULTURE - [facility] Ciprofloxacin S F(S) [facility] URINE CULTURE - [facility] Ertapenem S F(S) [facility] URINE CULTURE - [facility] Gentamicin S F(S) [facility] URINE CULTURE - [facility] Levofloxacin S F(S) [facility] URINE CULTURE - [facility] Meropenem S F(S) [facility] URINE CULTURE - [facility] Meropenem/Vaborbac hamlin S F(S) [facility] URINE CULTURE - [facility] Nitrofurantoin S F(S) [facility] URINE CULTURE - [facility] Tetracycline S F(S) [facility] URINE CULTURE - [facility] Tigecycline S F(S) [facility] URINE CULTURE - [facility] Tobramycin S F(S) [facility] URINE CULTURE - [facility] Ampicillin/Sulbact am S F(S) [facility] URINE CULTURE - [facility] Cefazolin S F(S) [facility] URINE CULTURE - [facility] Cefepime S F(S) [facility] URINE CULTURE - [facility] Ceftriaxone S F(S) [facility] URINE CULTURE - [facility] [facility] Cefuroxime S F(S) TBH URINE CULTURE - FR Piperacillin/Tazob actam S F(S) TBH URINE CULTURE - FR Trimethoprim/Sulfa S F(S) TBH 10/04/2024 3:40 PM EDT 10/04/2024 4:31 PM EDT Narrative CLINISYNC - 10/07/2024 2:16 PM EDT Generic External Data Provider LAB BLOOD ORDERAB LES Final Result Performing Organization Address [facility] Co de Phone Number [facility] * (ABNORMAL) METRO IRON AND TIBC (10/04/2024 1:42 PM EDT) TBH IRON 33.0(L) 50.0 - 170.0 ug/dL TBH TBH TOTAL IRON BINDING CAPACITY 340.0 250.0 - 450.0 ug/dL TBH TBH PERCENT IRON SATURATION 9.7 % TBH 10/04/2024 1:42 PM EDT 10/04/2024 1:48 PM EDT Narrative CLINISYNC - 10/04/2024 2:35 PM EDT Generic External Data Provider DANIE F inal Result Performing Organization Address [facility] Co de Phone Number [facility] * [facility] FERRITIN (10/04/2024 1:42 PM EDT) FERRITIN 29.0 8.0 - 252.0 ng/mL TBH 10/04/2024 1:42 PM EDT 10/04/2024 1:48 PM EDT Narrative CLINISYNC - 10/04/2024 2:39 PM EDT Generic External Data Provider CLINISYNC F inal Result CLINISYNC TBH * (ABNORMAL) [facility] CMP (CMP) (FOR REMOTE [facility] USE) (10/04/2024 1:42 PM EDT) SODIUM 141 136 - 145 mmol/L TBH POTASSIUM 3.7 3.5 - 5.1 mmol/L TBH CHLORIDE 103 98 - 107 mmol/L TBH CARBON DIOXIDE 29.2 21.0 - 32.0 mmol/L TBH ANION GAP 12.5 TBH GLUCOSE 97 74 - 106 mg/dL TBH BLOOD UREA NITROGEN 15.0 7.0 - 18.0 mg/dL TBH CREATININE 1.02 0.55 - 1.02 mg/dL TBH TBH EGFR-AF [place] >60 >=60 mL/min/1. 73m 2 TBH TBH EGFR-NON AF [place] 53(L) >=60 mL/min/1. 73m 2 TBH BUN CREATININE RATIO 14.7 TBH CALCIUM 9.4 8.5 - 10.1 mg/dL TBH BILIRUBIN TOTAL 0.3 0.2 - 1.0 mg/dL TBH ASPARTATE AMINO TRANSFERASE 12(L) 15 - 37 U/L TBH ALANINE AMINOTRANSFERASE 16 14 - 59 U/L TBH ALKALINE PHOSPHATASE 133(H) 46 - 116 U/L TBH TOTAL PROTEIN 7.4 6.4 - 8.2 g/dL TBH ALBUMIN LEVEL 3.5 3.4 - 5.0 g/dL TBH GLOBULIN 3.9 g/dL TBH ALBUMIN GLOBULIN RATIO 0.9 TBH 10/04/2024 1:42 PM EDT 10/04/2024 1:48 PM EDT Narrative CLINISYNC - 10/04/2024 2:34 PM EDT Generic External Data Provider CLINISYNC F inal Result CLINISYNC TBH * (ABNORMAL) ALL SED RATE (10/04/2024 1:42 PM EDT) [facility] SED RATE 78(H) <=30 mm/hr TB 10/04/2024 1:42 PM EDT 10/04/2024 1:48 PM EDT Narrative CLINISYNC - 10/04/2024 2:04 PM EDT us Generic External Data Provider CLINISYNC F inal Result [facility] * (ABNORMAL) ALL CBC WITH AUTO DIFF (10/04/2024 1:42 PM EDT) [facility] WBC 9.8 4.0 - 11.0 10 3/uL TBH TB RBC 5.05 4.20 - 5.40 10 6/uL TBH TBH HGB 13.9 12.0 - 16.0 g/dL TB TB HCT 43.8 36.0 - 48.0 % TB TB MCV 86.7 81.0 - 99.0 fL TB TB MCH 27.5 26.7 - 34.0 pg TBH TB MCHC 31.7 29.9 - 35.2 g/dL TB TB RDW 16.6(H) 11.0 - 15.0 % TBH TB PLT 402 150 - 450 10 3/uL TBH TB MPV 9.7 9.5 - 13.5 fL TB NEUTROPHILS PERCENT AUTO 69.5 43.0 - 75.0 % TBH LYMPHOCYTES PERCENT AUTO 18.9(L) 20.5 - 60.0 % TBH MONOCYTES PERCENT AUTO 9.2 1.7 - 12.0 % TBH TBH EO % 1.4 0.9 - 7.0 % TBH BASOPHILS PERCENT AUTO 0.7 0.2 - 2.0 % TBH IMMATURE GRANULOCYTES PCT AUTO 0.3 0.0 - 0.5 % TBH NEUTROPHILS ABSOLUTE AUTO 6.8(H) 1.4 - 6.5 10 3/uL TBH LYMPHOCYTES ABSOLUTE AUTO 1.9 1.2 - 3.8 10 3/uL TBH MONOCYTES ABSOLUTE AUTO 0.9(H) 0.3 - 0.8 10 3/uL TBH TBH EO # 0.1 0.0 - 0.7 10 3/uL TBH BASOPHILS ABSOLUTE AUTO 0.1 0.0 - 0.1 10 3/uL TBH IMMATURE GRANULOCYTES ABS AUTO 0.03 0.00 - 0.03 10 3/uL TBH 10/04/2024 1:42 PM EDT 10/04/2024 1:48 PM EDT Narrative CLINISYNC - 10/04/2024 1:56 PM EDT Generic External Data Provider CLINISYNC F inal Result CLINISYNC TBH * (ABNORMAL) ALL C REACTIVE PROTEIN (10/04/2024 1:42 PM EDT) C REACTIVE PROTEIN 1.02(H) <=0.50 mg/dL TBH 10/04/2024 1:42 PM EDT 10/04/2024 1:48 PM EDT Narrative CLINISYNC - 10/04/2024 2:34 PM EDT Generic External Data Provider CLINISYNC F inal Result CLINISYNC TBH from Last [address] [place] [address] [address] [place] [address] MEDICARE ADVANTAGE Care Teams Ux Specialist Relationship Specialty Start Date End Date Charanjit Cehn MD [address] [place] [address] PCP - General Family Medicine 02/11/24 Henok Hendrix MA Family Medicine 05/24/24
--- OUTSIDE RECORDS SUMMARY | 2024-12-03 13:46 | XMS_ITS | Encounter Summary ---
Author Organization [facility] Healthcare Address [address] [place] [address] Care Team Providers Care Correction Officer Penitentiary Name Role Phone Charanjit Chen MD Primary Care Provider Henok Hendrix MA Unavailable Unavailable Encounter Details Date Type Department Care Team (Late st Contact Info) Description 11/21/2024 Patient Outreach [facility] [address] [place] [address] Henok Hendrix MA Social History Tobacco Use [...] any clubs o r organizations such as gnosticism groups, unions, fraternal or athletic groups, or [...] Recorded Patient Health Questionnaire-2 Score 1 08/02/2024 [facility] - Occupational Stress Questionnaire Answer Date Recorded [...] place to sleep or slept in a longterm (including now)? No 12/08/2023 Comments No Sex and Gender Information Value Date Recorded Sex Assigned at Not on file Legal Sex Female 12:29 PM EDT Gender Identity Not on file Sexual Orientation Not on file documented as of this encounter Progress Notes * Henok Hendrix MA - 11/21/2024 10:23 AM EDT Pt contacted for last weekly outreach call. She said she fell again and this time vomited after thefall. Pt denied any injury but she is having more difficulty with her Rt arm, shakiness and weakness. She said she cannot cut her food, Josh has to do it for her. It's also getting more difficult tofeed herself due to the shaking. Pt said she does have an appt with Neurology but she does not wantto go there anymore. She didn't care for the provider. Furnace Mechanic asked if she thought about seeing another Neurologist as discussed with Wendy during her last appt. And she said her son sees a Neurologist up in [place] but isn't sure if they come to [place]. Furnace Mechanic called [facility] and they do still come to [place]. They have a MD and an CLINICAL LABORATORY AIDES TEACHER that are there several times a week. Furnace Mechanic called pt back and told her this. She agrees to see them. I will send message to Wendy ELL[place]ORTH and ask her to send referral to that office for pt. Pt asked they contact Josh to schedule the appt as she has trouble remembering. \ Pt became tearful and voiced frustration with not knowing what is happening as she was told she hasnot had another stroke, but she knows something is wrong. This isn't normal, she said. Furnace Mechanic gave reassurance and reminded her that Wendy feels she is having mini strokes and the importance of getting back into Neurology. She does remember Wendy discussing this with her at her last appt and is hopeful someone will figure this out soon. Furnace Mechanic also confirmed with Jennifer at [facility] office of upcoming appt on 12/27. Furnace Mechanic also confirmedwith Bailey at Dr Martini's office that pt has appt on 01/[address] up [address] on 01/16. Bailey is faxing over her last office notes and I will scan into her chart for provider, Wendy. Pt currently enrolled into CCM program and will change outreach to contact pt monthly. * Henok Hendrix MA - 11/21/2024 10:23 AM EDT Pt was informed that provider sent a STAT referral to Dr Almaraz. Phone number provided to pt. Pt also informed of recommendation to go to [facility] ER should she fall again especially if she does throwup afterwards as they can admit her if needed and she will get a neuro consult sooner that way. Pt said when she last fell she did not hit her head but she did throw up after. Pt voiced understanding and will go should this happen again. documented in this encounter Plan of Treatment Upcoming Encounters Date Type Department Care Team (Late st Contact Info) Description 01/26/2025 10:30 AM EDT Office Visit [facility] [address] [place] [address] Wendy Burden NP [address] [place] [address] documented as of this encounter Visit Diagnoses Diagnosis Moderate COPD (chronic obstructive pulmonary disease) (CMS/HCC)- Primary Hypertension, unspecified type (CMS/HCC) documented in this encounter Additional Health Concerns Assessment Noted Time PHQ-9 Depression Total Score: 10 025 11:00 AM EST A fall risk assessment has been complete d for the patient 12/08/2023 9:26 AM EDT documented as of this encounter Care Teams Correction Officer Penitentiary Relationship Specialty Start Date End Date Charanjit Chen MD [address] [place] [address] PCP - General Family Medicine 02/11/24 Henok Hendrix MA Family Medicine 05/24/24 documented as of this encounter
--- OUTSIDE RECORDS SUMMARY | 2024-12-03 13:46 | XMS_ITS | Encounter Summary ---
Author Organization [facility] Address [address] [place] [address] Care Team Providers Care Shellfish Grower Name Role Phone Flower Stokes LPN Unavailable Unavailable Charanjit Chen MD Primary Care Provider [phone] Betty Singh NP Unavailable [phone] Anne Hartley LPN Unavailable Unavailable Henok Hendrix MA Unavailable Unavailable Encounter Details Date Type Department Care Team (Late st Contact Info) Description 02/12/2024 Clinisync Result Encounter [facility] External Department Unsolicited Shaikh Horan MD [address] [place] [address] Social History Tobacco Use Types Packs/Day Years [...] often do you attend chur ch or jewish services? Never 12/08/2023 Do you belong to any clubs o r organizations such as jew groups, unions, fraternal or athletic groups, or [...] Date Recorded Patient Health Questionnaire-2 Score 0 01/04/2024 [facility] - Occupational Stress [...] place to sleep or slept in a penitentiary (including now)? No 12/08/2023 Comments Unknown Sex [...] Visit [facility] [address] [place] [address] Wendy Burden NP [address] [place] [address] documented as of this encounter Procedures Procedure Name Priority Date/Time Associated Diagnosis Comments CA ECHO DOPPLER COMPLETE 02/12/2024 5:23 PM EDT documented in this encounter Results * CA ECHO DOPPLER COMPLETE (02/12/2024 5:23 PM EDT) Anatomical Region Laterality Modality Other 02/12/2024 5:23 PM EDT Narrative 02/12/2024 5:24 [place] [address] Cardiology Report Signed Patient: BHUPENDRA MIRANDA MR#: [id number] : 1950 Acct:[id number] Age/Sex: 73 / F ADM Date: 02/12/24 Loc: CARD Attending Dr: Shaikh Aung Davidson Ordering Physician: Shaikh Lety Horan Date of Service: 02/12/24 Procedure(s): CA echo doppler complete Accession Number(s): [id number] cc: Shaikh Lety Horan Patient Name: BHUPENDRA MIRANDA MR#: [id number] : 1950 Exam Date: 02/12/2024 Ordering Doctor: Shaikh Eddie Horan . ECHOCARDIOGRAM REPORT PROCEDURE: CA ECHO DOPPLER COMPLETE INDICATIONS: Syncope and collapse COMPARISON: None. DESCRIPTION: COMPLETE ECHOCARDIOGRAM Real-time transthoracic echocardiography with 2D, M-mode, spectral and color flow Doppler performed. QUALITY: Technical quality was good. LEFT VENTRICLE: Normal chamber size. Proximal septal hypertrophy (sigmoid septum). Mild concentric hypertrophy. Normal systolic function. LV EF: Normal left ventricular ejection fraction, (60%). DIASTOLIC: Normal diastolic function. ATRIAL SEPTUM: Visually appears intact. LEFT ATRIUM: Normal chamber size. RIGHT ATRIUM: Normal chamber size. RIGHT VENTRICLE: Normal chamber size. Normal right ventricular systolic function. TRICUSPID VALVE: Normal mobility and thickness. No stenosis with trivial regurgitation. No evidence of pulmonary hypertension. RVSP 18 mmHg MITRAL VALVE: Normal mobility and thickness. No evidence of mitral valve stenosis. There is no mitral annular calcification. No mitral regurgitation. AORTIC VALVE: Normal trileaflet appearance. Mildly calcified aortic valve. Normal leaflet mobility. No evidence of aortic valve stenosis. No aortic regurgitation. AORTIC ROOT: Normal diameter and appearance. Ascending aorta is normal in size. PULMONIC VALVE: Normal thickness and mobility. No stenosis. No regurgitation. PERICARDIUM: Trivial pericardial effusion. Anterior pericardial fat pad. IVC: Collapses with inspirations. PLEURA: CONCLUSION: 1. Mild concentric left ventricular hypertrophy with normal systolic function. LVEF is estimated at 60%. 2. Normal right ventricular size and systolic function. 3. Normal diastolic function. 4. No significant valvular dysfunction. 5. Normal right-sided pressures. Adult Echocardiography Procedure Report Left Ventricle LVEDD (3.7 - 5.6 cm): 3.59 cm LVESD (2.2 - 4.0 cm): 2.62 cm LVIVS thickness (0.6 - 1.2 cm): 1.29 cm LVPW thickness (0.5 - 1.0 cm): 1.12 cm e': 0.04 m/s E - e': 13.23 LVOT Max Gradient: 2.15 mm[Hg] LVOT Area (cm2): 0.73 m/s Peak Velocity (LVOT): 0.73 m/s Mean Velocity (LVOT): 0.49 m/s LVOT Diameter 2.11 cm Left Atrium LA Volume Index (2D A2C): 17.39 ml/m2 Left Atrium Systolic Dimension: 3.59 cm Mitral Valve MV E to A Ratio: 0.68 Mitral Valve A-Wave Peak Velocity: 0.77 m/s Mitral Valve E-Wave Peak Velocity: 0.52 m/s Right Ventricle Aorta AO Root Diam: 2.69 cm Ascending Ao Diam: 2.56 cm Aortic Valve AoV Area (Peak Kristofer): 2.78 cm2, 2.78 cm2 AoV Area (VTI): 2.83 cm2, 2.83 cm2 Peak Velocity(Antegrade Flow): 0.92 m/s Peak Gradient(Antegrade Flow): 3.40 mm[Hg] Mean Velocity(Antegrade Flow): 0.61 m/s Mean Gradient(Antegrade Flow): 1.71 mm[Hg] Velocity Time Integral: 17.10 cm Tricuspid Valve Peak Velocity (Regurgitant Flow): 1.97 m/s Pulmonic Valve Mean Gradient: 0.76 mm[Hg] Mean Velocity: 0.40 m/s Peak Velocity: 0.61 m/s, 0.62 m/s Peak Gradient: 1.56 mm[Hg], 1.49 mm[Hg] Right Atrium Right Atrium Systolic Pressure: 18.46 ml, 18.46 ml Dictated by: Anitra Soares M.D. on 02/12/2024 at 17:19 Approved by: Anitra Soares M.D. on 02/12/2024 at 17:23 Dictated By: ANITRA SOARES Signed By: 02/12/241723 DD/ 22 TD/TT: Hair Worker: Procedure Note Radiology, Radiologist, - 02/12/2024 [place] [address] Cardiology Report Signed Patient: BHUPENDRA MIRANDA MMR#: [id number] : 1950cct:[id number] Age/Sex: 73 / FADM Date: 02/12/24 Loc: CARD Attending Dr: Shaikh Aung Davidson Ordering Physician: Shaikh Lety Horan Date of Service: 02/12/24 Procedure(s): CA echo doppler complete Accession Number(s): [id number] cc: Shaikh Lety Horan Patient Name: BHUPENDRA MIRANDA MR#: [id number] : 1950 Exam Date: 02/12/2024 Ordering Doctor: Shaikh Eddie Horan . ECHOCARDIOGRAM REPORT PROCEDURE: CA ECHO DOPPLER COMPLETE INDICATIONS: Syncope and collapse COMPARISON: None. DESCRIPTION: COMPLETE ECHOCARDIOGRAM Real-time transthoracic echocardiography with 2D, M-mode, spectral and color flow Dopplerperformed. QUALITY: Technical quality was good. LEFT VENTRICLE: Normal chamber size. Proximal septal hypertrophy(sigmoid septum). Mild concentric hypertrophy. Normal systolic function. LV EF: Normal left ventricular ejection fraction, (60%). DIASTOLIC: Normal diastolic function. ATRIAL SEPTUM: Visually appears intact. LEFT ATRIUM: Normal chamber size. RIGHT ATRIUM: Normal chamber size. RIGHT VENTRICLE: Normal chamber size. Normal right ventricularsystolic function. TRICUSPID VALVE: Normal mobility and thickness. No stenosis withtrivial regurgitation. No evidence of pulmonary hypertension. RVSP 18 mmHg MITRAL VALVE: Normal mobility and thickness. No evidence of mitralvalve stenosis. There is no mitral annular calcification. No mitralregurgitation. AORTIC VALVE: Normal trileaflet appearance. Mildly calcified aorticvalve. Normal leaflet mobility. No evidence of aortic valve stenosis. No aortic regurgitation. AORTIC ROOT: Normal diameter and appearance. Ascending aorta is normalin size. PULMONIC VALVE: Normal thickness and mobility. No stenosis. No regurgitation. PERICARDIUM: Trivial pericardial effusion. Anterior pericardial fatpad. IVC: Collapses with inspirations. PLEURA: CONCLUSION: 1. Mild concentric left ventricular hypertrophy with normal systolicfunction. LVEF is estimated at 60%. 2. Normal right ventricular size and systolic function. 3. Normal diastolic function. 4. No significant valvular dysfunction. 5. Normal right-sided pressures. Adult Echocardiography Procedure Report Left Ventricle LVEDD (3.7 - 5.6 cm): 3.59 cm LVESD (2.2 - 4.0 cm): 2.62 cm LVIVS thickness (0.6 - 1.2 cm): 1.29 cm LVPW thickness (0.5 - 1.0 cm): 1.12 cm e': 0.04 m/s E - e': 13.23 LVOT Max Gradient: 2.15 mm[Hg] LVOT Area (cm2): 0.73 m/s Peak Velocity (LVOT): 0.73 m/s Mean Velocity (LVOT): 0.49 m/s LVOT Diameter 2.11 cm Left Atrium LA Volume Index (2D A2C): 17.39 ml/m2 Left Atrium Systolic Dimension: 3.59 cm Mitral Valve MV E to A Ratio: 0.68 Mitral Valve A-Wave Peak Velocity: 0.77 m/s Mitral Valve E-Wave Peak Velocity: 0.52 m/s Right Ventricle Aorta AO Root Diam: 2.69 cm Ascending Ao Diam: 2.56 cm Aortic Valve AoV Area (Peak Kristofer): 2.78 cm2, 2.78 cm2 AoV Area (VTI): 2.83 cm2, 2.83 cm2 Peak Velocity(Antegrade Flow): 0.92 m/s Peak Gradient(Antegrade Flow): 3.40 mm[Hg] Mean Velocity(Antegrade Flow): 0.61 m/s Mean Gradient(Antegrade Flow): 1.71 mm[Hg] Velocity Time Integral: 17.10 cm Tricuspid Valve Peak Velocity (Regurgitant Flow): 1.97 m/s Pulmonic Valve Mean Gradient: 0.76 mm[Hg] Mean Velocity: 0.40 m/s Peak Velocity: 0.61 m/s, 0.62 m/s Peak Gradient: 1.56 mm[Hg], 1.49 mm[Hg] Right Atrium Right Atrium Systolic Pressure: 18.46 ml, 18.46 ml Dictated by: Anitra Soares M.D. on 02/12/2024 at 17:19 Approved by: Anitra Soares M.D. on 02/12/2024 at 17:23 Dictated By: ANITRA SOARES Signed By:02/12/241723 DD/ 22 TD/TT: Hair Worker: us Shaikh Aung [facility] Final Result documented in this encounter Visit Diagnoses Not on filedocumented in this encounter Additional Health Concerns Assessment Noted Time PHQ-9 Depression Total Score: 5 07/09/20 23 2:09 PM EST A fall risk assessment has been complete d for the patient 12/08/2023 9:26 AM EDT documented as of this encounter Care Teams Shellfish Grower Relationship Specialty Start Date End Date Charanjit Chen MD [address] [place] [address] PCP - General Family Medicine 02/11/24 Flower Stokes LPN Licensed Practical Nurse Family Medicine 11/26/23 Betty Singh NP [address] [place] [address] Nurse Practitioner Family Medicine 02/11/24 11/20/24 Anne Hartley LPN Licensed Practical Nurse Family Medicine 03/25/2405/24 Henok Hendrix MA Family Medicine 05/24/24 documented as of this encounter
--- OUTSIDE RECORDS SUMMARY | 2024-12-03 13:46 | XMS_ITS | Encounter Summary ---
Author Organization [facility] Address [address] [place] [address] Care Team Providers Care Sql Server Bi Developer Name Role Phone Shaikh NAHEED Horan Unavailable [phone] Shaikh NAHEED Horan Primary Care Provider [phone] Flower Stokes LPN Unavailable Unavailable Charanjit Chen MD Primary Care Provider [phone] Betty Singh QUALITY ASSURANCE ANALYST Unavailable Anne Hartley LPN Unavailable Unavailable Henok Hendrix MA Unavailable Unavailable Reason for Visit * Reason Comments Med Refill Encounter Details Date Type Department Care Team (Late st Contact Info) Description 11/10[facility]2023 [facility] [address] [place] [address] Shaikh Horan MD [address] [place] [address] Primary hypertension (CMS/HCC) Social History Tobacco Use Types Packs/Day Years Used Date Smoking Tobacco: Every Day Cigarettes 0.5 55 Passive Smoke Exposure: Current Smokeless Tobacco: Never Alcohol Use Standard Drinks/Week Comments Never 0 (1 standard drink = 0.6 oz pur e alcohol) PHQ-2 Answer Date Recorded Patient Health Questionnaire-2 Score 0 11/09/2023 Comments Unknown Sex and Gender Information Value Date Recorded Sex Assigned at Not on file Legal Sex Female 12:29 PM EDT Gender Identity Not on file Sexual Orientation Not on file documented as of this encounter Miscellaneous Notes * Telephone Encounter - Shaikh Aung MD - 11/11/2023 11:37 AM EDT Discontinued documented in this encounter Plan of Treatment Upcoming Encounters Date Type Department Care Team (Late st Contact Info) Description 01/26/2025 10:30 AM EDT Office Visit [facility] [address] [place] [address] Wendy Burden NP [address] [place] [address] documented as of this encounter Visit Diagnoses Diagnosis Primary hypertension (CMS/HCC) Unspecified essential hypertension documented in this encounter Additional Health Concerns Assessment Noted Time PHQ-9 Depression Total Score: 5 07/09/20 23 2:09 PM EST documented as of this encounter Care Teams Sql Server Bi Developer Relationship Specialty Start Date End Date Shaikh Horan MD [address] [place] [address] PCP - Devoted 04/12/23 11/10/23 Shaikh Horan MD [address] [place] [address] PCP - General Internal Medicine 10/12/23 02/10/24 Charanjit Chen MD [address] [place] [address] PCP - General Family Medicine 02/11/24 Flower Stokes LPN Licensed Practical Nurse Family Medicine 11/26/23 Betty Singh NP [address] [place] [address] Nurse Practitioner Family Medicine 02/11/24 11/20/24 Anne Hartley LPN Licensed Practical Nurse Family Medicine 03/25/2405/24 Henok Hendrix MA Family Medicine 05/24/24 documented as of this encounter
--- OUTSIDE RECORDS SUMMARY | 2024-12-03 13:46 | XMS_ITS | Encounter Summary ---
Author Organization [facility] Address [address] [place] [address] Care Team Providers Care Door Frame Assembler Machine Name Role Phone Shaikh NAHEED Horan Primary Care Provider [phone] Flower Stokes LPN Unavailable Unavailable Charanjit Chen MD Primary Care Provider [phone] Betty Singh NP Unavailable [phone] Anne Hartley SALES PERSON Unavailable Unavailable Henok Hendrix MA Unavailable Unavailable Encounter Details Date Type Department Care Team (Late st Contact Info) Description 01/25/2024 Clinisync Result Encounter [facility] Unsolicited Shaikh Horan MD [address] [place] [id number] Social History Tobacco Use Types Packs/Day Years [...] How often do you attend chur or pentecostalism services? Never 12/08/2023 Do you belong to any clubs o r organizations such as jewish groups, unions, fraternal or athletic groups, or [...] Recorded Patient Health Questionnaire-2 Score 0 01/04/2024 [facility] - Occupational Stress [...] place to sleep or slept in a prison (including now)? No 12/08/2023 Comments Unknown Sex [...] Visit [facility] [address] [place] [address] Wendy Burden NP [address] [place] [address] documented as of this encounter Procedures Procedure Name Priority Date/Time Associated Diagnosis Comments PET SKULL BASE TO MID THIGH 01/25/2024 11:12 PM EDT documented in this encounter Results * PET/CT skull base to mid thigh (01/25/2024 11:12 PM EDT) Anatomical Region Laterality Modality Body Computed Tomogra phy 01/25/2024 11:1 2 PM EDT Narrative 01/25/2024 11:14 PM EDT The [address] [address] PET Report Signed Patient: BHUPENDRA MIRANDA MR#: [id number] : 1950 Acct:[id number] Age/Sex: 73 / F ADM Date: 01/25/24 Loc: PETCT Attending Dr: Shaikh Aung Davidson Ordering Physician: Shaikh Lety Horan Date of Service: 01/25/24 Procedure(s): PET skull to mid thigh Accession Number(s): [id number] cc: Shaikh Lety Horan The [place] [id number] Patient Name: BHUPENDRA MIRANDA MRN: [id number] date: 1950 Sex: F Assigned Patient Location: PETCT Current Patient Location: PETCT Accession/Order Number: [id number] Exam Date: 01/25/2024 15:39 Report Date: 01/25/2024 23:12 At the request of: SHAIKH AUNG Procedure: PET skull to mid thigh PET/CT: HISTORY: Pulmonary nodule. COMPARISON: CT chest 12/27/2023, 11/11/2022, CTA abdomen 11/11/2022, CT chest 07/24/2022. TECHNIQUE: The patient was injected with 13.58 mCi of F-18 fluorodeoxyglucose (FDG), and an emission scan was performed from the base of the skull to the mid thigh. Noncontrast CT was performed for attenuation correction and anatomic localization. The blood glucose level was 93 mg/dl. The uptake time was 52 minutes. FINDINGS: HEAD AND NECK: There is a hypermetabolic right parotid nodule on image 20, SUV max 7.1 measuring 6 mm. CHEST: The SUVmax of the mediastinum = 3.2 using the patient's body weight as the normalization method. There is a hypermetabolic pulmonary nodule in the left upper lobe on image 93, SUV max 21.2 measuring 2.4 x 1.8 cm. There is no hypermetabolic mediastinal or hilar adenopathy. ABDOMEN AND PELVIS: There is a focus of increased activity within the ascending colon on image 182 with SUV max 22.4. There is no definite CT correlate. Otherwise normal distribution of activity. MUSCULOSKELETAL SYSTEM: There is intense increased activity adjacent to the right AC joint in the shoulder consistent with degenerative changes. There is an otherwise normal distribution of FDG in the bone marrow. ADDITIONAL CT FINDINGS: There is mild mucosal thickening of the left maxillary sinus consistent with chronic sinusitis. There is severe coronary artery calcification and there is diffuse calcification throughout the thoracoabdominal aorta, iliac and femoral arteries. There is an infrarenal abdominal aortic aneurysm measuring 3.6 x 3.1 cm. This is slightly increased in size compared to the CTA from 11/11/2022 where it was 3.3 x 3.3 cm. The patient is status post hysterectomy. PET/PET skull to mid thigh IMPRESSION: 1. Hypermetabolic left upper lobe pulmonary nodule consistent with malignancy. 2. Hypermetabolic right parotid lesion which may represent a benign parotid neoplasm but a primary malignancy and metastatic disease are not entirely excluded. Consider follow-up CT or MRI of the neck with contrast in 3 months. 3. Focus of increased activity in the ascending colon which may be physiologic in nature but a benign or malignant polyp cannot be excluded. Consider colonoscopy. 4. Additional CT findings as described above including a 3.6 x 3.1 cm abdominal aortic aneurysm. Recommend follow-up every one year. ABDOMINAL AORTIC ANEURYSM MANAGEMENT RECOMMENDATIONS: 2.6-2.9 cm: Follow-up every 5 years* 3.0-3.4 cm: Follow-up every 3 years. 3.5-3.9 cm: Follow-up every 1 year. 4.0-4.4 cm: Follow-up every 1 year. Recommend vascular consultation. 4.5-5.4 cm: Follow-up every 6 months. Recommend vascular consultation. Greater than or equal to 5.5 cm: Referral to vascular surgeon. *For abdominal aortas with maximum diameter of 2.6-2.9 cm meeting criteria for AAA (>50% of proximal normal segment). Reference: J Vasc Surg. 2008;50(4 Suppl):S2-49 Electronically authenticated by: CLAUDIO OROZCO Date: 01/25/2024 23:12 Dictated By: Claudio Orozco M.D. Signed By: 01/25/242313 DD/ 11 TD/TT: Marketing Representative: Procedure Note Radiology, Radiologist, MD - 01/25/2024 [place] [address] PET Report Signed Patient: BHUPENDRA MIRANDA MMR#: [id number] : 1950cct:[id number] Age/Sex: 73 / FADM Date: 01/25/24 Loc: PETCT Attending Dr: Shaikh Aung Davidson Ordering Physician: Shaikh Lety Horan Date of Service: 01/25/24 Procedure(s): PET skull to mid thigh Accession Number(s): [id number] cc: Shaikh Lety Horan [address] [address] Patient Name: BHUPENDRA MIRANDA MRN: [facility]:[id number] date: 1950 Sex: F Assigned Patient Location: PETCT Current Patient Location: PETCT Accession/Order Number: [id number] Exam Date: 01/25/2024 15:39 Report Date: 01/25/2024 23:12 At the request of: SHAIKH AUNG Procedure: PET skull to mid thigh PET/CT: HISTORY: Pulmonary nodule. COMPARISON: CT chest 12/27/2023, 11/11/2022, CTA abdomen 11/11/2022, CT chest 07/24/2022. TECHNIQUE: The patient was injected with 13.58 mCi of F-18fluorodeoxyglucose (FDG), and an emission scan was performed from the base of the skull tothe mid thigh. Noncontrast CT was performed for attenuation correction andanatomic localization. The blood glucose level was 93 mg/dl. The uptake time was 52 minutes. FINDINGS: HEAD AND NECK: There is a hypermetabolic right parotid nodule on image 20,SUV max 7.1 measuring 6 mm. CHEST: The SUVmax of the mediastinum = 3.2 using the patient's body weightas the normalization method. There is a hypermetabolic pulmonary nodule inthe left upper lobe on image 93, SUV max 21.2 measuring 2.4 x 1.8 cm. There isno hypermetabolic mediastinal or hilar adenopathy. ABDOMEN AND PELVIS: There is a focus of increased activity within the ascending colon on image 182 with SUV max 22.4. There is no definite CT correlate. Otherwise normal distribution of activity. MUSCULOSKELETAL SYSTEM: There is intense increased activity adjacent tothe right AC joint in the shoulder consistent with degenerative changes. Thereis an otherwise normal distribution of FDG in the bone marrow. ADDITIONAL CT FINDINGS: There is mild mucosal thickening of the leftmaxillary sinus consistent with chronic sinusitis. There is severe coronary artery calcification and there is diffuse calcification throughout the thoracoabdominal aorta, iliac and femoral arteries. There is an infrarenal abdominal aortic aneurysm measuring 3.6 x 3.1 cm. This is slightlyincreased in size compared to the CTA from 11/11/2022 where it was 3.3 x 3.3 cm. Thepatient is status post hysterectomy. PET/PET skull to mid thigh IMPRESSION: 1. Hypermetabolic left upper lobe pulmonary nodule consistent withmalignancy. 2. Hypermetabolic right parotid lesion which may represent a benignparotid neoplasm but a primary malignancy and metastatic disease are not entirely excluded. Consider follow-up CT or MRI of the neck with contrast in 3months. 3. Focus of increased activity in the ascending colon which may bephysiologic in nature but a benign or malignant polyp cannot be excluded. Consider colonoscopy. 4. Additional CT findings as described above including a 3.6 x 3.1 cm abdominal aortic aneurysm. Recommend follow-up every one year. ABDOMINAL AORTIC ANEURYSM MANAGEMENT RECOMMENDATIONS: 2.6-2.9 cm: Follow-up every 5 years* 3.0-3.4 cm: Follow-up every 3 years. 3.5-3.9 cm: Follow-up every 1 year. 4.0-4.4 cm: Follow-up every 1 year. Recommend vascular consultation. 4.5-5.4 cm: Follow-up every 6 months. Recommend vascular consultation. Greater than or equal to 5.5 cm: Referral to vascular surgeon. *For abdominal aortas with maximum diameter of 2.6-2.9 cm meeting criteriafor AAA (>50% of proximal normal segment). Reference: J Vasc Surg. 2009 Apr;50(4 Suppl):S2-49 Electronically authenticated by: CLAUDIO OROZCO Date: 01/25/2024 23:12 Dictated By: Claudio Orozco M.D. Signed By:01/25/242313 DD/ 11 TD/TT: Marketing Representative: us Shaikh Aung FARFAN IMG CT PROCEDURES Final Result documented in this encounter Visit Diagnoses Not on filedocumented in this encounter Additional Health Concerns Assessment Noted Time PHQ-9 Depression Total Score: 5 07/09/20 23 2:09 PM EST A fall risk assessment has been complete d for the patient 12/08/2023 9:26 AM EDT documented as of this encounter Care Teams Door Frame Assembler Machine Relationship Specialty Start Date End Date Shaikh Horan MD [address] [place] [phone] PCP - General Internal Medicine 10/12/23 02/10/24 Charanjit Chen MD [address] [place] [phone] PCP - General Family Medicine 02/11/24 Flower Stokes LPN Licensed Practical Nurse Family Medicine 11/26/23 Betty Singh NP [address] [place] [phone] Nurse Practitioner Family Medicine 02/11/24 11/20/24 Anne Hartley LPN Licensed Practical Nurse Family Medicine 03/25/2405/24 Henok Hendrix MA Family Medicine 05/24/24 documented as of this encounter
--- OUTSIDE RECORDS SUMMARY | 2024-12-03 13:46 | XMS_ITS | Encounter Summary ---
Author Organization [facility] Address [id number] [address] [place] [address] Care Team Providers Care Director Of Strategic Sourcing Name Role Phone Betty Singh FLEET MAINTENANCE MANAGER-HEAVY TRUCK DRIVER Primary Care Pr ovider Encounter Details Date Type Department Care Team (Late st Contact Info) Description 06/14/2024 Orders Only [facility] [address] [place] [phone] Transcribe, Orders Support User Pain (Primary Dx) Social History Tobacco Use Types Packs/Day Years Used Date Smoking Tobacco: Never Assessed [facility] Utilities Answer Date Recorded In the past [...] unable to answer 06/15/2024 6:59 PM Stacia eMdellin RN Within the last year, have you [...] Patient unable to answer 06/15/2024 6:59 PM EST Stacia Velasquez RN Q3: How often do you have six or more drinks on one occasion? Patient unable to answer 06/15/2024 6:59 PM Stacia Medellin RN * Question Answer Date of Assessment Author Functional Status Independent 06/15/2024 6:55 PM EST Stacia Velasquez RN documented as of this encounter Mental Status * Question Answer Entry Date Author Overall Cognitive Status X 06/17/2024 10:31 AM EST Isabella Boyd OTR/Debbi documented in this encounter Plan of Treatment Not on file documented as of this encounter Goals Goal Patient Goal Type Associated Problems Recent Progress Patient-Stated? Author return home General Yes Brigitte Be RN Note: Evaluation of progress towards goal: Significant other hopes patient will be able to return home documented as of this encounter Results * MR brain with and without contrast (06/14/2024 7:05 AM EST) us Scanning Provider External IMG MRI ORDERABLES Fi nal Result documented in this encounter Visit Diagnoses Diagnosis Pain- Primary Generalized pain documented in this encounter Additional Health Concerns Infection Onset Date Last Indicated Resolved Time Meningitis Rule-Out 06/15/2024 06/15/2024 06/15/20 6:18 PM EST documented as of this encounter Care Teams Director Of Strategic Sourcing Relationship Specialty Start Date End Date Betty Singh, FLEET MAINTENANCE MANAGER-HEAVY TRUCK DRIVER [address] [place] [address] PCP - General Nurse Practitioner 06/13/24 documented as of this encounter
--- OUTSIDE RECORDS SUMMARY | 2024-12-03 13:47 | XMS_ITS | Patient Health Record ---
Author Organization [facility] in [place] Address [address] [place] [address] Care Team Providers Care Wind Site Manager Name Role Phone SylviaenriqueWendy nunez CNP Primary Care Provider Unavail able Eryn Lundberg Unavailable [phone] Leigh Thompson Unavailable [phone] Allergies No Known Allergies Results Component Value Reference Range Notes Histoplasma capsulatum Abs. Reviewed date:03/15/2024 07:20:53 AM Interpretation: Performing Lab: Notes/Report: [facility] , Histoplasma Mycelial CF Ab. Negative Neg:<1:2 Histoplasma Yeast CF Ab Negative Neg:<1:[address] [place] [phone] Alodize Machine Operator: Erick Khalil MD, Phone: [phone] Performed at: [facility] Performing Lab: see note LC - [facility] LB Blastomyces Abs, Qn, DID Reviewed date:03/15/2024 07:20:56 AM Interpretation: Performing Lab: Notes/Report: [facility] , Blastomyces Abs, Qn, DID Negative Neg:<1:1 Alodize Machine Operator: Erick Khalil MD, Phone: [phone] [facility] [place], [place] [phone] Performed at: [facility] Performing Lab: see note LC - [facility] LB Coccidioides Abs, IgG/IgM, E IA Reviewed date:03/15/2024 07:21:06 AM Interpretation: Performing Lab: Notes/Report: [facility] , Coccidioides Ab, IgG, EIA 0.5 . EIA Units Positive >1.4 Negative <1.0 Indeterminate 1.0-1.4 Coccidioides Ab, IgM, EIA 0.0 . EIA Units Negative <1.0 Positive >1.4 Alodize Machine Operator: Andrea Stevens MD, Phone: [phone] Performed at: [facility] [address] [place] [phone] Indeterminate 1.0-1.4 Performing Lab: see note - [facility] LB CBC AUTO DIFF (Not yet revie wed by provider) Interpretation: Performing Lab: Notes/Report: [facility] , White Blood Count 9.8 4.0-11.0 10 3/uL Red Blood Count 5.05 4.20-5.40 10 6/uL Hemoglobin 13.9 12.0-16.0 g/dL Hematocrit 43.8 36.0-48.0 % Mean Corpuscular Volume 86.7 81.0-99.0 fL Mean Corpuscular Hemoglobin 27.5 26.7-34.0 pg Mean Corpuscular HGB Conc 31.7 29.9-35.2 g/dL Red Cell Distribution Width 16.6 11.0-15.0 % Platelet Count 402 150-450 10 3/uL Mean Platelet Volume 9.7 9.5-13.5 fL Neutrophils Percent Auto 69.5 43.0-75.0 % Lymphocytes Percent Auto 18.9 20.5-60.0 % Monocytes Percent Auto 9.2 1.7-12.0 % Eosinophils Percent Auto 1.4 0.9-7.0 % Basophils Percent Auto 0.7 0.2-2.0 % Immature Granulocytes Pct Auto 0.3 0.0-0.5 % Neutrophils Absolute Auto 6.8 1.4-6.5 10 3/uL Lymphocytes Absolute Auto 1.9 1.2-3.8 10 3/uL Monocytes Absolute Auto 0.9 0.3-0.8 10 3/uL Eosinophils Absolute Auto 0.1 0.0-0.7 10 3/uL Basophils Absolute Auto 0.1 0.0-0.1 10 3/uL Immature Granulocytes Abs Auto 0.03 0.00-0.03 10 3/uL Performing Lab: see note - [facility] LB Erythrocyte Sedimentation Ra te (Not yet reviewed by provider) Interpretation: Performing Lab: Notes/Report: [facility] , Erythrocyte Sedimentation Rate 78 <=30 mm/hr Performing Lab: see note - [facility] LB CRP (Not yet reviewed by pro vider) Interpretation: Performing Lab: Notes/Report: [facility] , C Reactive Protein 1.02 <=0.50 mg/dL Performing Lab: see note - [facility] LB Histoplasma Gal'yony Ag Ur Reviewed date:03/22/2024 10:19:52 AM Interpretation: Performing Lab: Notes/Report: URINE [facility] , Histoplasma Gal'yony Ag Ur Negative <0.2 ng/mL Alodize Machine Operator: Erick Khalil MD, Phone: [phone] [facility] [place], [place] [phone] Performed at: - [facility] [place] Performing Lab: see note - [facility] LB FL Bronchoscopy NO CHARGE Reviewed date:03/15/2024 07:19:34 AM Interpretation: Performing Lab: Notes/Report: Source Facility: [place] [address] Fluoroscopy Report Signed Patient: BHUPENDRA MIRANDA MR#: [id number] : 1950 Acct:[id number] Age/Sex: 73 / F ADM Date: 03/09/24 Loc: [facility] Attending Dr: Leigh Thompson D.O. Ordering Physician: Leigh Thompson D.O. Date of Service: 03/09/24 Procedure(s): FL Bronchoscopy NO CHARGE Accession Number(s): [id number] cc: LYNETTE BERMAN Nathan D.O. The [place] [address] Patient Name: BHUPENDRA MIRANDA MRN: [id number] date: 1950 Sex: F Assigned Patient Location: [facility] Current Patient Location: Accession/Order Number: [id number] Exam Date: 03/09/2024 12:45 Report Date: 03/10/2024 [...] Dictated By: Jeff Melton M.D. Signed By: 03/10/24735 DD/ 3 TD/TT: Animal Keeper Head: [place] [address] Fluoroscopy Report Signed Patient: DO RA Akila MIRANDA MR#: [id number] : 1950 Acct:[id number] Age/Sex: 73 / F ADM Date: 03/09/24 Loc: [facility] Attending Dr: Leigh Thompson D.O. Ordering Physician: Leigh Thompson D.O. Date of Service: 03/09/24 Procedure(s): FL Bronchoscopy NO CHARGE Accession Number(s): [id number] cc: LYNETTE BERMAN Nathan D.O. [place] [address] Patient Name: BHUPENDRA MIRANDA MRN: [id number] date: 1950 Sex: F Assigned Patient Location: [facility] Current Patient Location: Accession/Order Numb er: [id number] Exam Date: 03/09/2024 12:45 Report Date: 03/10/2024 07:34 At the request of: LEIGH THOMPSON Procedure: FL Bronchoscopy NO CHARGE EXAM: FL Bronchoscop y NO CHARGE HISTORY: Bronchoscopy COMPARISON: None. TECHNIQUE: 12.5 seco nds of fluoroscopy. 1.56 mg FINDINGS: Single intraprocedur al image of the chest, situs is not level. Bronchoscopy catheter projects ov er the mid thorax F L/FL Bronchoscopy NO CHARGE IMPRESSION: Intraprocedural imag e from bronchoscopy Electronically authenticated by: JEFF MELTON Date: 03/10/2024 07:34 Dictated By: Maximiliano Melton M.D. Signed By: 03/10/24 0736 DD/ 0734 TD/TT: Animal Keeper Head: XR chest 1V Reviewed date:03/09/2024 03:15:59 PM Interpretation: Performing Lab: Notes/Report: Source Facility: [place] [address] XRay Report Signed Patient: BHUPENDRA MIRANDA MR#: [id number] : 1950 Acct:[id number] Age/Sex: 73 / F ADM Date: 03/09/24 Loc: SURGOUT Attending Dr: Leigh Thompson D.O. Ordering Physician: Leigh Thompson D.O. Date of Service: 03/09/24 Procedure(s): XR chest 1V Accession Number(s): [id number] cc: CHRIS BERMAN; Leigh Thompson D.O. [place] [address] Patient Name: BHUPENDRA MIRANDA MRN: [id number] date: 1950 Sex: F Assigned Patient Location: [facility] Current Patient Location: [facility] Accession/Order Number: [id number] Exam Date: 03/09/2024 14:00 Report Date: 03/09/2024 [...] Signed By: 03/09/24 1449 DD/ 46 TD/TT: Animal Keeper Head: The [address] [address] XRay Report Signed Patient: DO RA Akila MIRANDA MR#: [id number] : 1950 Acct:[id number] Age/Sex: 73 / F ADM Date: 03/09/24 Loc: SURGOUT Attending Dr: Leigh Thompson D.O. Ordering Physician: Leigh Thompson D.O. Date of Service: 03/09/24 Procedure(s): XR nella st 1V Accession Number(s): [id number] cc: CHRIS BERMAN; Leigh Thompson D.O. [address] [address] Patient Name: BHUPENDRA MIRANDA MRN: [facility]:[id number] date: 1950 Sex: F Assigned Patient Location: [facility] Current Patient Location: [facility] Accession/Order Numb er: [id number] Exam Date: 03/09/2024 14:00 Report Date: 03/09/2024 14:47 At the request of: LEIGH THOMPSON Procedure: XR chest 1V EXAMINATION: XR chest 1V HISTORY: HÉCTOR mass, s /p bronchoscopy -eval for PTX COMPARISON: 12/27/2023 TECHNIQUE: AP portable FINDINGS: LUNGS: The right keyon g is clear. Focal mass in the left lung measuring 11.4 x 4.2 cm. Left lung vo lume loss VASCULATURE: No increased pulmonary vasculature. PLEURA: No pneumotho rax, effusion, or pleural thickening. CARDIAC: Dominant he art size MEDIASTINUM: No visi ble mass or adenopathy. Aortic atherosclerosis BONES: No fracture o r visible bone lesion. OTHER: Negative. X R/XR chest 1V IMPRESSION: Left lung density/mass No pneumothorax Electronically authenticated by: JEFF MELTON Date: 03/09/2024 14:47 Dictated By: Steven Melton M.D. Signed By: 03/09/24 1449 DD/ 1447 TD/TT: Animal Keeper Head: HEMOGRAM AND PLATEL Reviewed date:03/09/2024 03:16:09 PM Interpretation: Performing Lab: Notes/Report: [facility] , Hemoglobin 12.3 12.0-16.0 g/dL Hematocrit 38.5 36.0-48.0 % Performing Lab: see note ML - [facility] LB HISTOPLASMA ANTIGEN, URINE Reviewed date:03/21/2024 07:02:23 AM Interpretation: Performing Lab: Notes/Report: PROF 14(COMP METB) (Not yet reviewed by provider) Interpretation: Performing Lab: Notes/Report: [facility] , Sodium 141 136-145 mmol/L Potassium 3.7 3.5-5.1 mmol/L Chloride 103 98-107 mmol/L Carbon Dioxide 29.2 21.0-32.0 mmol/L Anion Gap 12.5 Glucose 97 74-106 mg/dL Blood Urea Nitrogen 15.0 7.0-18.0 mg/dL Creatinine 1.02 0.55-1.02 mg/dL Estimated GFR ( Rima >60 >=60 mL/min/1.73m 2 Estimated GFR (Non- Anu 53 >=60 mL/min/1.73m 2 BUN Creatinine Ratio 14.7 Calcium 9.4 8.5-10.1 mg/dL Bilirubin Total 0.3 0.2-1.0 mg/dL Aspartate Amino Transferase 12 15-37 U/L Alanine Aminotransferase 16 14-59 U/L Alkaline Phosphatase 133 46-116 U/L Total Protein 7.4 6.4-8.2 g/dL Albumin Level 3.5 3.4-5.0 g/dL Globulin 3.9 Albumin Globulin Ratio 0.9 Performing Lab: see note ML - [facility] LB IRON AND TIBC (Not yet revie wed by provider) Interpretation: Performing Lab: Notes/Report: [facility] , Iron 33.0 50.0-170.0 ug/dL Total Iron Binding Capacity 340.0 250.0-450.0 ug/dL Percent Iron Saturation 9.7 Performing Lab: see note ML - [facility] LB FERRITIN (Not yet reviewed b y provider) Interpretation: Performing Lab: Notes/Report: [facility] , Ferritin 29.0 8.0-252.0 ng/mL Performing Lab: see note ML - [facility] LB Reason For Referral Reason Interventional radio logy referral for CT-guided biopsy of HÉCTOR PET + lesion Diagnosis 1 Multiple pulmonary n odules (R91.8) Referral Organization [facility] Referring Provider First Name Leigh Referring Provider Last Name Ngoc Referring Provider Speciality Pulmonolog y Referred Organization [facility] Referred Address [address] [facility],[place] Referred Provider Specialty Radiology General Notes Christian Connelly 02/22 11:15:08 AM >Images pushed via PACS to [facility] by Jeanne in Radiology. Orders and clinicals faxed to IR at [facility]. Patient advised via telephone., Christian Connelly 03/07/2024 02:42:01 PM >Leigh Thompson 02/22/2024 11:50:40 AM >*, *Referral placed for IR RE: CT-guided biopsy, Christian Connelly 02/22/2024 01:20:14 PM > *, Will await for Denny to call our office. I called and left a voicemail for the patient to call our office. Thanks, Christian Connelly 02/23/2024 09:20:26 AM > *, *, I called and spoke with Denny at 's office to find out if ordered the CT Biopsy for the patient. Denny states is there today, and he will find out and let our office know. Thanks, Christian Connelly 02/23/2024 11:01:07 AM > I called the patient and spoke with her. Patient states she has no idea what all is being done but did see . Patient stated she is confused on what exactly is being ordered but is supposed to be seen by our office. I advised the patient she needs a CT-Guided Lung Biopsy and I would send the order to [facility] where it can be done. Patient states she is not sure what any of the above means. I explained the CT Guided Procedure via telephone to the patient. Patient verbalized understanding. I called and left a voicemail for [facility] IR to find out if a order was already sent by another provider. Order to be sent to [facility]., Christian Connelly 02/23/2024 11:14:16 AM > Orders and clinicals faxed to [facility] IR. Will await a response from [facility] IR nurse. Thank You, Christian Connelly 02/23/2024 03:36:33 PM > *, *, Amy from [facility] IR called back and states she received our order and clinicals but nothing from anyone else. Amy states she will speak with the Radiologist to see if this is something they can get too and let our office know tomorrow. Thanks, Leigh Thompson 02/24/2024 10:29:06 AM > *, *Will await their response, Christian Connelly 02/25/2024 01:35:17 PM > Amy returned my call from [facility] and states the physician she spoke to states the mass is in a very difficult/challenging spot. The physician is willing to give it a try but no guarantee he will be successful. Amy states the physician is not back until 03/28/2024 if we are wanting to get the patient scheduled? I advised Amy I would speak with when he is back in the office next week (Thursday). Amy verbalized understanding and states she is out until Thursday as well. Please Advise? Thank You, Leigh Thompson 03/01/2024 07:25:27 AM > *, * At this point, I would suggest patient just come in and we can review the CT and discuss options., Christian Connelly 03/01/2024 08:14:05 AM > *, *, I called and spoke with the patient. Patient was advised that it would be best if she came into the office to discuss the following above. Patient was offered an appt. today at 1400 but she was unable to accept the appt. stating she has to be in [place] today. Patient was scheduled for an appt. tomorrow (03/02/2024 @ 0830). Patient asked where our office was located? Patient was advised to come to [facility]. Patient verbalized understanding and confirmed the appt. date and time via telephone. Thanks, Christian Connelly 03/01/2024 11:59:36 AM > *, *, I called and left a voicemail for Amy at [facility] IR to let her know that I will update her tomorrow after the patient is seen in the office. Thanks, Leigh Thompson 03/01/2024 02:10:24 PM > *, *Concerning she did not remember where our office is, considering she has been coming here for several years, most recently 12/23/2023., Christian Connelly 03/01/2024 02:32:16 PM > Agree. Patient appears to be very confused in the past conversations I have had with her via telephone. Thanks, I called and left a voicemail for Amy at [facility] to let her know the update regarding the patient. 03/07/2024 1441 Andrzej BOAT PILOT.Maricel Riley 03/09/2024 11:53:46 AM >Amy from [facility] returned my call and was advised the patient is scheduled for a Bronch today and to hold off on any further scheduling at this point. Amy states she will await to hear from our office if she needs to have a CT Guided Biopsy. Referral Priority Routine Reason HÉCTOR nodule - non-shaheen gnostic bronchoscopy @ [facility] - please eval for interventional procedures Diagnosis 1 Multiple pulmonary n odules (R91.8) Referral Organization [facility] [place] Referring Provider First Name Leigh Referring Provider Last Name Ngoc Referring Provider Speciality Pulmonolog y Referred Provider Diana Gonzalez Referred Provider Specialty Pulmonary Di seases General Notes Christian Connelly 03/23 01:59:26 PM >Images pushed from [facility] via PACS to [facility]., Christian Connelly 03/23/2024 02:00:05 PM >Referral faxed to 's office. Jeanne notified in Radiology to push the images via PACS., Christian Connelly 03/29/2024 09:31:12 AM >I called and spoke with Nitza at office to find out if the patient was scheduled yet? Per Nitza - a voicemail was left on 03/25/2024 for the patient to call 's office to schedule. Nitza states they have not heard back from her yet?, Christian Connelly 03/29/2024 11:01:00 AM >Per Bernice SOUSA at [facility] 's office-the patient is scheduled for 04/28/2024 @ 1500. Patient is aware of the appt. date and time per Dereje Maloneman Christian 05/02/2024 04:13:41 PM >Consult note received via fax. Scanned to . Referral Priority Routine Referral Appointment Date 04/28/2024 Medications Medication SIG (Take, Route, Frequency, Duration) Notes Start Date End Date Status Gabapentin 300 MG 1 capsule Orally Onc e a day Active Lacosamide 100 MG Oral for 30 Days Active lamoTRIgine 150 MG Oral for 30 Days Active LORazepam 0.5 MG TAKE 1 TABLET BY ABDIAZIZ TH DAILY NEEDED FOR ANXIETY Oral for 15 Days Active Aspirin 81 81 MG 1 tablet Orally Once a day Active Atorvastatin Calcium 80 MG 1 tablet Oral ly Once a day Active Eliquis 5 MG TAKE 1 TABLET BY ABDIAZIZ TH IN THE MORNING then TAKE 1 TABLET BY MOUTH BEFORE bedtime Oral for 30 Days Active Albuterol Sulfate HFA 108 (90 Base) MCG/ACT 2 puffs as needed for SOB Inhalation every 4 hrs for 90 days Active Pantoprazole Sodium 40 MG Oral for 90 Days Active traZODone HCl 100 MG 1 tablet at bedtime Orally Once a day Active Breztri Aerosphere 160-9-4.8 MCG/ACT 2 puffs Inhalation Twice a day for 90 days Rinse after use Active Immunizations Vaccine Route Administration Date Status Comme nts Pneumococcal (Prevnar 13) Unknown 07/03/2022 Administer ed Pneumococcal (Prevnar 20) Unknown 07/09/2022 Administer ed Social History Tobacco Use: Social History Observation Description Date Details (start date - stop date) Current Smoker NA - NA Tobacco Control (Standard) Question Answer Notes Tobacco use: Current every day smoker Additional Findings: Tobacco user Light cigarett e smoker (1-9 cigs/day) Problems Problem Type SNOMED Code ICD Code Onset Dates Problem Status W/U Status Risk Notes Problem Centrilobular emphysema (24985701) Centrilobular emphysema (J43.2) Active confirmed Problem 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) Active confirmed Problem Mental 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 (763174340) Cigarette nicotine dependence with nicotine-induced disorder (F17.219) Active confirmed Problem History of cerebrovascular accident (107171724) History of stroke (Z86.73) Active confirmed Problem Adenocarcinoma of left lung (12734644229321294 ) Adenocarcinoma of left lung (C34.92) Active confirmed Problem Aneurysm of infrarenal abdominal aorta (disorder) (536369118) Infrarenal abdominal aortic aneurysm, without rupture (I71.43) Active confirmed Vital Signs Heart Rate 114 /min 11/30/2024 Temperature 96.4 degrees Fahrenheit 11/30/2024 Respiratory Rate 18 /min 11/30/2024 Oximetry 91 % 11/30/2024 Blood pressure diastolic 87 mm Hg 11/30/2024 Height 63 in 11/30/2024 Blood pressure systolic 148 mm Hg 11/30/2024 Weight 149.2 lbs 11/30/2024 BMI 26.43 kg/m2 11/30/2024 Procedures Procedure Date Ordered Date Performed Result Body Sit e Smoking/Tobacco Counseling 3 min up to 10-performed 12/23/2023 12/23/2023 N/A Encounters Encounter Location Date Provider Diagnosis [facility] [place] [address] [place] [address] 12/21/2023 [facility] Pulmonary [facility] [address] [place] [address] 01/05/2024 [facility] Pulmonary [facility] [address] [place] [address] 01/26/2024 [facility] [address] [place] [address] 02/22/2024 [facility] Multiple pulmonary nodules R91.8 [facility] [address] [place] [address] 03/02/2024 [facility] Pulmonary [facility] [address] [place] [address] 03/02/2024 [facility] Pulmonary [facility] [address] [place] [address] 03/07/2024 [facility] Pulmonary [facility] [address] [place] [address] 03/09/2024 [facility] [address] [place] [address] 03/10/2024 [facility] Multiple pulmonary nodules R91.8 [facility] [address] [place] [address] 04/05/2024 [facility] [place] [address] [place] [address] 05/18/2024 [facility] On[facility] [address] [place] [address] 10/04/2024 Eryn Lundberg [facility] [address] [place] [address] 12/23/2023 Leigh [facility] Centrilobular emphys rodney J43.2 ; Multiple pulmonary nodules R91.8 ; Cigarette nicotine dependence with nicotine-induced disorder F17.219 and Encounter for screening for malignant neoplasm of respiratory organs Z12.2 [facility] [address] [place] [address] 11/30/2024 Leigh [facility] Centrilobular emphys rodney J43.2 ; Adenocarcinoma of left lung C34.92 ; Cigarette nicotine dependence with nicotine-induced disorder F17.219 ; History of stroke Z86.73 and 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 [address] [place] [address] 03/09/2024 [facility] Pulmonary [facility] [address] [place] [address] 03/02/2024 Leigh [facility] Centrilobular emphys rodney J43.2 ; Multiple pulmonary nodules R91.8 ; Cigarette nicotine dependence in remission F17.211 ; Mass of right parotid gland K11.8 ; Infrarenal abdominal aortic aneurysm, without rupture I71.43 ; Abnormal computed tomography of large intestine R93.3 ; History of stroke Z86.73 and snf (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 steroids Z79.51 [facility] [address] [place] [address] 03/23/2024 Leigh Thompson Centrilobular emphys rodney J43.2 ; Multiple pulmonary nodules R91.8 ; Cigarette nicotine dependence in remission F17.211 ; Mass of right parotid gland K11.8 ; Infrarenal abdominal aortic aneurysm, without rupture I71.43 ; Abnormal computed tomography of large intestine R93.3 ; History of stroke Z86.73 and 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 Z79.51 [facility] On[facility] [address] [place] [address], [place] [address] 07/19/2024 Eryn [facility] Oncology [address] [place] [address], [place] [address] 02/18/2024 Eryn [facility] Oncology [address] [place] [address], [place] [address] 05/03/2024 Eryn [facility] On[facility] [address] [place] [address], [place] [address] 04/05/2024 Eryn [facility] Oncology [address] [place] [address], [place] [address] 03/15/2024 Eryn [facility] Oncology [address] [place] [address], [place] [address] 03/01/2024 Eryn [facility] Oncology [address] [place] [address], [place] [address] 05/31/2024 Eryn [facility] On[facility] [address] [place] [address], [place] [address] 08/23/2024 Eryn Toño Assessments Encounter Date Diagnosis (ICD Code) Assessment Notes Treatment Notes Treatment Clinical Notes Section Notes 12/23/2023 Centrilobular emphysema (ICD-10 - J43.2) Breathing is compensated currently - changed insurance plans to [employer] which covered Trelegy ($15/month) which she is able to afford. She is using albuterol ~1 time a week. She voiced she is happy with her control. She does have coarse breath sounds/wheezes on forced exhalation however. Next step is to work on smoking cessation. Refilled inhalers. F/U 1 year or sooner PRN. 12/23/2023 Multiple pulmonary nodules (ICD-10 - R91.8) Reviewed prior imaging from October and November 2022 - stable 0.4 - 0.6cm nodules. Resume LDCT screening at this time. 03/02/2024 Centrilobular emphysema (ICD-10 - J43.2) Patient's breathing was doing okay on Trelegy, however she developed hoarseness -something that the patient never divulged to me during prior visits. Unbeknownst to me, she was changed to Breztri. She states she is tolerating Breztri much better without any hoarseness. She states her breathing is doing okay, especially after stopping smoking. I agree with Breztri encourage patient to continue it. She stated she did not require any refills at this time. With his suspected lung cancer comes potential chemo and radiation. Last pulmonary function test was 10/27/2022. I would recommend repeating PFT but at this current time she has too much going on. Will discuss ordering PFT at her follow-up visit. 03/02/2024 Multiple pulmonary nodules (ICD-10 - R91.8) Previously stable 0.4/0.6cm HÉCTOR nodule noted on chest CT 11/11/2022 is now 2.2cm on LDCT 12/27/2023, with PET 01/25/2024 identifying it as FDG avid at SUV 21.2. This is cancer until proven otherwise. Even though the patient has smoking history, the peripheral nature and sudden increase in size ranks adenocarcinoma high on the differential. I personally reviewed the imaging. As there is no direct bronchus coursing to the nodule, I referred patient to interventional radiology for evaluation of a CT-guided biopsy as I felt that would be the better approach to obtain a tissue sample. Unfortunately interventional radiology does not feel that they would be able to obtain a sample given the subscapular location. To prevent further time passing without a plan, the patient was brought here today to discuss options. The last approach that was not initially discussed would be referral to thoracic surgeon for VATS to obtain a biopsy. Disregarding other abnormal PET findings, the absence of hilar and mediastinal lymphadenopathy would make a lobectomy for possible consideration. However, PFT from noted a prebronchodilator FEV1 of 1.17L which would qualify patient for lobectomy (threshold is >1.5L). The patient voiced that she wants to avoid surgery if at all possible. I returned to bronchoscopy as an option. I once again reviewed the chest CT imaging and showed the patient my concerns about the lack of a bronchus coursing to the lung nodule. I stated that I can attempt a bronchoscopy with transbronchial biopsies under fluoroscopic guidance, but there is a increased risk of a nondiagnostic study. However, considering lack of options, this may be the least invasive approach available to the patient. Discussed risks of bronchoscopy with the patient in order to obtain informed consent, including, but not limited to: pain, aspiration of gastric contents, hemoptysis (from mild to massive hemorrhage), infection, hoarseness (with rare risk of temporary or permanent vocal cord damage/paralysis), pneumothorax which may require chest tube placement, acute respiratory failure with need for non-invasive or invasive ventilation (temporary to long-term), ICU observation/admissio n, , a non-diagnostic study, or any other unforeseen complication. Risks of general anesthesia were deferred to the anesthesia department. I reviewed that she has a higher risk of pneumothorax than the general population given her underlying emphysema as well as peripheral nature of the nodule. Once again reiterated the likelihood of a nondiagnostic study. The patient voiced that she would accept the risk of a nondiagnostic study so that we are at least doing something. The patient signed consent. Plan will be to perform bronchoscopy with bronchoalveolar lavage of the left upper lobe for cytology and cultures, and transbronchial biopsies under fluoroscopic guidance of the left upper lobe. In order to decrease the risk of bleeding, the patient was instructed to stop her aspirin beginning today; she may restart that the day after the procedure. With the patient's history of confusion, I asked multiple times throughout the encounter if she had questions. She voiced understanding every time. I asked her boyfriend if he had any questions and he voiced no. Bronchoscopy has been scheduled for next week. Will follow-up with patient in approximately 2 weeks to review pathology. If pathology is negative, then patient will need to consider referral to thoracic surgery for VATS to obtain a biopsy. 03/23/2024 Centrilobular emphysema (ICD-10 - J43.2) Prior treatments: Breztri > Trelegy Continue Breztri. Will eventually require repeat PFT. 06/01/2024 Centrilobular emphysema (ICD-10 - J43.2) Prior treatments: Breztri > Trelegy Patient is doing okay at this time on Breztri. Albuterol uses about once a week. Previously consider repeating PFT, but as she does not appear to be a candidate for lobectomy/pneumonect dana, will hold off on repeating a PFT at this current time. 06/01/2024 Adenocarcinoma of left lung (ICD-10 - C34.92) HÉCTOR biopsy positive for adenocarcinoma. She is already established with Dr. Lundberg. Patient is going to have radiation therapy to the area - she voiced she is not particularly pleased she needs to go to [place] for radiation treatments. Explained to her that from this point on, I do not have any involvement with the particular treatment of the cancer, but with any associated adverse effects that affect her pulmonary status, I would help address/treat those. Patient voiced understanding. 11/30/2024 Centrilobular emphysema (ICD-10 - J43.2) Prior treatments: Breztri > Trelegy She is doing okay on Breztri, no exacerbations. Continue current treatment. 11/30/2024 Adenocarcinoma of left lung (ICD-10 - C34.92) HÉCTOR adenocarcinoma. Follows with Dr. Lundberg and Dr. Martini, had radiation only. 02/22/2024 Multiple pulmonary nodules (ICD-10 - R91.8) 03/10/2024 Multiple pulmonary nodules (ICD-10 - R91.8) 11/30/2024 Cigarette nicotine dependence with nicotine-induced disorder (ICD-10 - F17.219) She restarted smoking. Discussed smoking cessation - she states no way. Explained the multiple issues associated with smoking, including the COPD, lung cancer, and stroke she has already had. 06/01/2024 Hypoxemia (ICD-10 - R09.02) SpO2 was 85% today on room air upon arrival. Explained to patient that technically she qualifies for supplemental O2. She states she did not feel grossly short of breath. She also stated that she would not wear O2 at this current time. Since she would not adhere to therapy, will not prescribe any O2 for now. Will need to monitor closely; it may be with upcoming treatment for her lung cancer she may become more symptomatic requiring supplemental O2. 03/23/2024 Multiple pulmonary nodules (ICD-10 - R91.8) Previously stable 0.4/0.6cm HÉCTOR nodule noted on chest CT 11/11/2022 is now 2.2cm on LDCT 12/27/2023, with PET 01/25/2024 identifying it as FDG avid at SUV 21.2. Interventional radiology at [facility] was not confident about obtaining a tissue sample given the location subscapular. Bronchoscopy on 03/09/2024 was nondiagnostic. Prior to the bronchoscopy, I counseled her that the location was difficult for transbronchial biopsies as well, with only a 50% estimated chance that I could get a positive tissue sample. Discussed options including referral to thoracic surgeon for excision of the lesion versus referral to interventional pulmonology for advanced biopsy techniques. The less invasive option is interventional pulmonology, which patient voiced agreement. Will refer to interventional pulmonology - If they are unable to get it, or not confident on the odds of a positive biopsy, then I would refer her to thoracic surgery. 03/02/2024 Cigarette nicotine dependence in remission (ICD-10 - F17.211) Patient quit smoking on Father's Day of this year and has not had any further cigarettes despite completing a course of Chantix. I lauded her for her efforts. I encouraged her to keep up the cessation. 12/23/2023 Cigarette nicotine dependence with nicotine-induced disorder (ICD-10 - F17.219) Discussed smoking cessation for 3 minutes. Patient was counseled on the benefits of smoking cessation including decreased risk of lung cancer and development of respiratory illnesses (e.g. COPD). Smoking cessation strategies discussed/considered include nicotine replacement therapy, bupropion (Wellbutrin/Zyban), varenicline (Chantix), alternative treatments (e.g. acupuncture, hypnosis), and cold turkey. Previously was on Chantix with some benefit, but then it was not covered by prior insurance. She now has [employer] and asked to see if it would be covered. When I entered the Rx, green smiley face showed up for generic varenicline, so I suggested we try it to see what the coverage is. 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 Clinical suspicion of this is a benign tumor such as a pleomorphic adenoma or Warhin's duct tumor. Recommendations are to follow-up with a head CT within 3-6 months. I will defer this to her PCP or Dr. Lundberg for further monitoring and management. 03/23/2024 Cigarette nicotine dependence in remission (ICD-10 - F17.211) Patient quit smoking on Father's Day . Continue the good work. 06/01/2024 Cigarette nicotine dependence in remission (ICD-10 - F17.211) Patient quit smoking on Father's Day and has not restarted. Will not be LDCT candidate d/t lung cancer. 11/30/2024 History of stroke (ICD-10 - Z86.73) Had symptoms in September, no acute findings. She is frustrated, very anxious. Unfortunately, I explained I am not a neurologist and these issues are better directed to neurology. 11/30/2024 snf (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 steroids (ICD-10 - Z79.51) .Patient was counseled to rinse & gargle with water after inhaled corticosteroid use. 06/01/2024 Mass of right parotid gland (ICD-10 - K11.8) Deferred to PCP/oncology. 03/23/2024 Mass of right parotid gland (ICD-10 - K11.8) Incidental PET positive 6mm right parotid gland nodule with SUV 7.1. Clinical suspicion of this is a benign tumor such as a pleomorphic adenoma or Warhin's duct tumor. Recommendations are to follow-up with a head CT within 3-6 months. Deferred to PCP/oncology. 03/02/2024 Infrarenal abdominal aortic aneurysm, without rupture (ICD-10 - I71.43) Increase in size of the AAA from 3.1cm from 11/11/2022 to 3.6cm on 01/25/2024. Deferring to PCP regarding continued monitoring. 03/02/2024 Abnormal computed tomography of large intestine (ICD-10 - R93.3) Incidental PET positive SUV 22.4 region of the ascending colon. Etiology is unclear. Last colonoscopy was over 10 years ago. Patient states that she has an appointment to see a healthcare provider regarding a colonoscopy. Unclear if there is any relationship between this and the lung nodule. 03/23/2024 Infrarenal abdominal aortic aneurysm, without rupture (ICD-10 - I71.43) Increase in size of the AAA from 3.1cm from 11/11/2022 to 3.6cm on 01/25/2024. Deferring to PCP regarding continued monitoring. 06/01/2024 Abnormal computed tomography of large intestine (ICD-10 - R93.3) Incidental PET positive SUV 22.4 region of the ascending colon. Patient is going to require additional prep and repeat colonoscopy. 06/01/2024 History of stroke (ICD-10 - Z86.73) Patient is bringing someone to her visits to help her understand/remember the conversation. 03/23/2024 Abnormal computed tomography of large intestine (ICD-10 - R93.3) Incidental PET positive SUV 22.4 region of the ascending colon. Etiology is unclear. Last colonoscopy was over 10 years ago. Patient states that she has an appointment to see a healthcare provider regarding a colonoscopy. Unclear if there is any relationship between this and the lung nodule. 03/02/2024 History of stroke (ICD-10 - Z86.73) Patient has episodes of confusion which is concerning. Patient was encouraged to have her boyfriend assist her with medical visits. I also encouraged patient to get a notebook to write down questions and other items from her medical visits. 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 03/23/2024 History of stroke (ICD-10 - Z86.73) Patient is bringing someone to her visits to help her understand/remember the conversation. 06/01/2024 snf (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 steroids (ICD-10 - Z79.51) .Patient was counseled to rinse & gargle with water after inhaled corticosteroid use. 03/23/2024 snf (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 steroids (ICD-10 - Z79.51) .Patient was counseled to rinse & gargle with water after inhaled corticosteroid use. 12/23/2023 Other 03/02/2024 Other 06/01/2024 Other Increase in size of the AAA from 3.1cm from 11/11/2022 to 3.6cm on 01/25/2024. Deferring to PCP regarding continued monitoring. Previously stable 0.4/0.6cm HÉCTOR nodule noted on chest CT 11/11/2022 is now 2.2cm on LDCT 12/27/2023, with PET 01/25/2024 identifying it as FDG avid at SUV 21.2. Interventional radiology at [facility] was not confident about obtaining a tissue sample given the location subscapular. Bronchoscopy on 03/09/2024 was nondiagnostic. Prior to the bronchoscopy, I counseled her that the location was difficult for transbronchial biopsies as well, with only a 50% estimated chance that I could get a positive tissue sample. Discussed options including referral to thoracic surgeon for excision of the lesion versus referral to interventional pulmonology for advanced biopsy techniques. The less invasive option is interventional pulmonology, which patient voiced agreement. Will refer to interventional pulmonology - If they are unable to get it, or not confident on the odds of a positive biopsy, then I would refer her to thoracic surgery. 11/30/2024 Other Plan Of Treatment Pending Test Test Name Order Date CT Chest Low Dose for Screening* 024 CBC AUTO DIFF 10/04/2024 CRP 10/04/2024 FERRITIN 10/04/2024 IRON AND TIBC 10/04/2024 PROF 14(COMP METB) 10/04/2024 Erythrocyte Sedimentation Rate Next Appt Details Provider Name:Eryn Lundberg , 12/27/2024 02:00:00 PM, [address] [place], [address], Provider Name:Leigh Thompson, 11/28/2025 11:00:00 AM, [address] [place], [address], Insurance Providers Payer Name Payer Address Payer Phone Subscriber Number Group Number Insured Name Patient Relationship to Insured Coverage Start Date Coverage End Date [employer] AD[employer]AN [address] [place] [address] [id number] [id number] Apolinar Mirandaa Self - patient is the insured Medical (General) History Medical History History ICD Code Centrilobular emphysema J43.2 Multiple pulmonary nodules R91.8 Gastroesophageal reflux disease K21.9 Essential Hypertension I10 Hyperlipidemia E78.5 Anxiety and depression F41.9 History of stroke Z86.73 Abnormal computed tomography of large in testine R93.3 Mass of right parotid gland K11.8 Infrarenal abdominal aortic aneurysm, wi thout rupture I71.43 Adenocarcinoma of left lung C34.92 Cigarette nicotine dependence with nicot ine-induced disorder F17.219 Surgical History Surgery Date(Month/Year) [facility] 05/18/2024 Bronchoscopy 03/09/2024 tubal ligation rotator cuff tear repair-bilateral Cholecystectomy hysterectomy Hospitalization History Reason Date(Month/Year) [facility] 10/04/2024
--- OUTSIDE RECORDS SUMMARY | 2024-12-03 13:47 | XMS_ITS | Encounter Summary ---
Author Organization [facility] Address [address] [place] [address] Care Team Providers Care Electric Installer Name Role Phone Shaikh NAHEED Horan Primary Care Provider [phone] Shaikh NAHEED Horan Unavailable [phone] Shaikh NAHEED Horan Primary Care Provider [phone] Flower Stokes LPN Unavailable Unavailable Charanjit Chen MD Primary Care Provider [phone] Betty Singh DEVELOPMENT ANALYST Unavailable [phone] Anne Hartley MIXER TENDER Unavailable Unavailable Henok Hendrix MA Unavailable Unavailable Reason for Visit * Reason Comments Med Refill Encounter Details Date Type Department Care Team (Late st Contact Info) Description 07/02/2023 [facility] [address] [place] [address] Shaikh Horan MD [address] [place] [phone] Gastroesophageal reflux disease without esophagitis (Primary Dx); Other polyneuropathy Social History Tobacco Use Types Packs/Day Years Used Date Smoking Tobacco: Never Assessed Comments Unknown Sex and Gender Information Value Date Recorded Sex Assigned at Not on file Legal Sex Female 12:29 PM EDT Gender Identity Not on file Sexual Orientation Not on file documented as of this encounter Miscellaneous Notes * Telephone Encounter - Shaikh Aung MD - 07/07/2023 1:11 PM EST Approving, but needs appt for additional refills. documented in this encounter Plan of Treatment Upcoming Encounters Date Type Department Care Team (Late st Contact Info) Description 01/26/2025 10:30 AM EDT Office Visit [facility] [address] [place] [address] Wendy Burden NP [address] [place] [phone] documented as of this encounter Visit Diagnoses Diagnosis Gastroesophageal reflux disease without esophagitis- Primary Esophageal reflux Other polyneuropathy documented in this encounter Care Teams Electric Installer Relationship Specialty Start Date End Date Shaikh Horan MD PCP - General Internal Medicine 01/26/23 10/11/23 Shaikh Horan MD [address] [place] [phone] PCP - Devoted 04/12/23 11/10/23 Shaikh Horan MD [address] [place] [phone] PCP - General Internal Medicine 10/12/23 02/10/24 Charanjit Chen MD [address] [place] [phone] PCP - General Family Medicine 02/11/24 Flower Stokes LPN Licensed Practical Nurse Family Medicine 11/26/23 Betty Singh NP [address] [place] [address] Nurse Practitioner Family Medicine 02/11/24 11/20/24 Anne Hartley LPN Licensed Practical Nurse Family Medicine 03/25/2405/24 Henok Hendrix MA Family Medicine 05/24/24 documented as of this encounter
--- OUTSIDE RECORDS SUMMARY | 2024-12-03 13:47 | XMS_ITS | Clinical Summary ---
Author Organization [employer] tem Address [id number] [address] [place] [address] Care Team Providers Care Line Cook Name Role Phone Singh, Betty Jonathan AUTOMOTIVE WORKER-LEASING SALES CONSULTANT Primary Care Pr ovider Allergies No known active allergies Medications pantoprazole (PROTONIX) 40 mg EC tablet Take 1 tablet (40 mg total) by mouth every morning before breakfast. 4 Active atorvastatin (LIPITOR) 80 mg tablet Take 1 tablet (80 mg total) by mouth in the morning. 4 Active traZODone (DESYREL) 100 mg tablet Take 1 tablet (100 mg total) by mouth nightly. 4 Active lacosamide (VIMPAT) 150 mg tabletIndicatio ns:Witnessed seizure-like activity (CMS-HCC) Take 1 tablet (150 mg total) by mouth in the morning and 1 tablet (150 mg total) before bedtime. 60 tablet 3 4 Active lamoTRIgine (LaMICtal) 100 mg tablet Take 1 tablet (100 mg total) by mouth in the morning. Script 2., start taking only after finishing script 1.. 60 tablet 3 5 Active losartan (COZAAR) 25 mg tablet Take 1 tablet (25 mg total) by mouth in the morning. 30 tablet 3 4 Active Active Problems Problem Noted Date Diagnosed Date Witnessed seizure-like activity 06/15/2024 Encounters Date Type Department Care Team Description 10/07/2024 Orders Only [facility] [address] [place] [phone] Transcribe, Orders Support User Pain (Primary Dx) 10/05/2024 11:55 AM EDT Ancillary Procedure [facility] [address] [place] [phone] Pain 10/05/2024 11:15 AM EDT Ancillary Procedure [facility] [address] [place] [address] [phone] Pain 10/05/2024 Orders Only [facility] [address] [place] [phone] Transcribe, Orders Support User Pain (Primary Dx) 10/04/2024 4:26 PM EDT - 10/07/2024 11:23 AM EDT Emergency [facility] [address] [place] [phone] Discharge Disposition: Telemedicine Discharge 10/04/2024 3:25 PM EDT Ancillary Procedure [facility] [address] [place] [phone] Pain 10/04/2024 3:20 PM EDT Ancillary Procedure [facility] [address] [place] [phone] Pain 10/04/2024 2:25 PM EDT Ancillary Procedure [facility] [address] [place] [phone] Pain from Last 3 Months Immunizations Immunization Administration Dates Next Due Pneumococcal Conjugate 13-Valent 07/03/2022 Pneumococcal Conjugate 20-valent 07/09/2022 Social History Tobacco Use Types Packs/Day Years Used Date Smoking Tobacco: Former Cigarettes Smokeless Tobacco: Never Tobacco Cessation:Counseling Given: Not Answered Alcohol Use Standard Drinks/Week Comments Not Currently 0 (1 standard drink = 0.6 oz pur e alcohol) [facility] Utilities Answer Date Recorded In the past 12 months has [facility] [employer], oil, or [employer] threatened to shut off services in your [...] Sign Reading Time Taken Comments Blood Pressure 158/85 06/17/2024 3:[address] Alba aware of BP Pulse 94 06/17/2024 3:01 PM EST Temperature 36.9 C (98.4 F) 06/17/2024 3:01 PM EST Respiratory Rate 18 06/17/2024 3:01 PM EST Oxygen Saturation 92% 06/17/2024 3:0 1 PM EST Inhaled Oxygen Concentration - - Weight 73 kg (160 lb 15 oz) 06/15/2024 12:30 AM EST Height 160 cm (5' 2.99 ) 06/15/2024 7:3 1 AM EST Body Mass Index 28.52 06/15/2024 12:30 AM EST Plan of Treatment Health Maintenance Due Date Last Done Comments Depression Screening 1962 Adult BMI Follow Up Plan 1970 DTaP,Tdap and Td Vaccines (1 - Tdap) 1971 Zoster (Shingles) Vaccine (1 of 2) 2002 Fall Risk Screening 2017 Influenza Vaccine 03/13/2025 Adult BMI Screening 06/15/2025 06/15/2024 Tobacco Screening 06/15/2025 06/15/2024 Goals Goal Patient Goal Type Associated Problems Recent Progress Patient-Stated? Author return home General Yes Brigitte Be, RN Note: Evaluation of progress towards goal: Significant other hopes patient will be able to return home Medical Devices Not on file Procedures Procedure Name Priority Date/Time Associated Diagnosis Comments MR BRAIN WO CONT Routine 10/05/2024 11:[address] BRAIN WO CONT STROKE ALERT STAT Reading 10/05/2024 11:[address] CTA CAROTID Routine 10/04/2024 3:[address] CTA HEAD Routine 10/04/2024 3:[address] BRAIN WO CONT STROKE ALERT STAT Reading 10/04/2024 2:25 PM EDT Pain from Last 3 Months Results * MR brain without contrast (10/05/2024 11:55 AM EDT) us Scanning Provider External IMG MRI ORDERABLES Fi nal Result * CT brain without contrast stroke alert (10/05/2024 11:15 AM EDT) Only the most recent of2 resultswithin the time period is included. us Scanning Provider External IMG CT ORDERABLES Fin al Result * CT angiogram carotid (10/04/2024 3:25 PM EDT) us Scanning Provider External IMG CT ORDERABLES Fin al Result * CT angiogram head (10/04/2024 3:20 PM EDT) us Scanning Provider External IMG CT ORDERABLES Fin al Result from Last 3 Months Insurance COUNT INCLUDES THE [facility]IC[facility] Advance Directives * Full Code (Latest Code Status on File) Date Activated Date Inactivated Comments 06/15/2024 1:10 PM 06/17/2024 7:37 PM Care Teams Line Cook Relationship Specialty Start Date End Date Betty Singh, AUTOMOTIVE WORKER-LEASING SALES CONSULTANT [address] [place] [address] PCP - General Nurse Practitioner 06/13/24
--- OUTSIDE RECORDS SUMMARY | 2024-12-03 13:47 | XMS_ITS | Encounter Summary ---
Author Organization [facility] Address [address] [place] [address] Care Team Providers Care Cotton Puller Name Role Phone Charanjit Chen MD Primary Care Provider Betty Singh DESTATICIZER FEEDER Unavailable [phone] Henok Hendrix MA Unavailable Unavailable Encounter Details Date Type Department Care Team (Late st Contact Info) Description 10/05/2024 Orders Only [facility] [address] [place] [address] Charanjit Chen MD [address] [place] [phone] Social History Tobacco Use Types Packs/Day Years [...] How often do you attend chur or buddhism services? Never 12/08/2023 Do you belong to any clubs o r organizations such as sabianist groups, unions, fraternal or athletic groups, or [...] Recorded Patient Health Questionnaire-2 Score 1 08/02/2024 [facility] - Occupational Stress [...] place to sleep or slept in a nursing home (including now)? No 12/08/2023 Comments No Sex [...] Office Visit [facility] [address] [place] [address] Wendy Burden NP [address] [place] [address] documented as of this encounter Procedures Procedure Name Priority Date/Time Associated Diagnosis Comments MRI HEAD/BRAIN WO CONTRAS Routine 10/05/2024 1:54 PM EDT documented in this encounter Results * MRI HEAD/BRAIN WO CONTRAS (10/05/2024 1:54 PM EDT) Anatomical Region Laterality Modality Radiographic Meagan ging us Charanjit Chen MD IMG XR PROCEDURES Final Result documented in this encounter Visit Diagnoses Not on filedocumented in this encounter Additional Health Concerns Assessment Noted Time PHQ-9 Depression Total Score: 10 025 11:00 AM EST A fall risk assessment has been complete d for the patient 12/08/2023 9:26 AM EDT documented as of this encounter Care Teams Cotton Puller Relationship Specialty Start Date End Date Charanjit Chen MD [address] [place] [address] PCP - General Family Medicine 02/11/24 Betty Singh NP [address] [place] [address] Nurse Practitioner Family Medicine 02/11/24 11/20/24 Henok Hendrix MA Family Medicine 05/24/24 documented as of this encounter
--- OUTSIDE RECORDS SUMMARY | 2024-12-03 13:47 | XMS_ITS ---
Author Organization [facility] Address [address] [place] [address] Care Team Providers Care Appliance Mechanic Name Role Phone Charanjit Chen MD Primary Care Provider [phone] Henok Hendrix MA Unavailable Unavailable Chronic Care Management (CCM) Status:Enrolled (Active) Start date:11/26/2023 Enrollment date:12/02/2023 Enrollment reason:Referred by provider Overview Please assess for Care Management needs. 12/02/23, 9:28 AM - Flower Stokes LPN- Patient gives verbal consent to be enrolled in CCM Program and understands there could be a bill for this service. Case Team Name Relationship Phone Henok Hendrix MA(Responsible Staff) Continued Care and Services Coordination
--- OUTSIDE RECORDS SUMMARY | 2024-12-03 13:47 | XMS_ITS | Encounter Summary ---
Author Organization [facility] Address [id number] [address] [place] [address] Care Team Providers Care Manager Story Name Role Phone Singh, Betty Jonathan GROMMET MAN-PSYCHOLOGY PHYSICIAN Primary Care Pr ovider Encounter Details Date Type Department Care Team (Late st Contact Info) Description 10/07/2024 Orders Only [facility] [address] [place] [phone] Transcribe, Orders Support User Pain (Primary Dx) Social History Tobacco Use Types Packs/Day Years Used Date Smoking Tobacco: Former Cigarettes Smokeless Tobacco: Never Alcohol Use Standard Drinks/Week Comments Not Currently 0 (1 standard drink = 0.6 oz pur e alcohol) [facility] Utilities Answer Date Recorded In the past 12 months has [employer], oil, or water [employer] threatened to shut off services in your [...] of this encounter Results * MR brain without contrast (10/05/2024 11:55 AM EDT) us Scanning Provider External IMG MRI ORDERABLES Fi nal Result documented in this encounter Visit Diagnoses Diagnosis Pain- Primary Generalized pain documented in this encounter Care Teams Manager Story Relationship Specialty Start Date End Date Betty Singh, GROMMET MAN-PSYCHOLOGY PHYSICIAN [address] [place] [address] PCP - General Nurse Practitioner 06/13/24 documented as of this encounter
--- OUTSIDE RECORDS SUMMARY | 2024-12-03 13:47 | XMS_ITS | Encounter Summary ---
Author Organization [facility] Address [address] [place] [address] Care Team Providers Care Manager Of Training Name Role Phone Shaikh NAHEED Horan Primary Care Provider [phone] Shaikh NAHEED Horan Unavailable [phone] Shaikh NAHEED Horan Primary Care Provider [phone] Flower Stokes LPN Unavailable Unavailable Charanjit Chen MD Primary Care Provider [phone] Betty Singh CONSTRUCTION JOB TITLES Unavailable [phone] Anne Hartley LITERATURE TEACHER Unavailable Unavailable Henok Hendrix MA Unavailable Unavailable Reason for Visit * Reason Comments Med Refill Encounter Details Date Type Department Care Team (Late st Contact Info) Description 08/06/2023 [facility] [address] [place] [address] Shaikh Horan MD [address] [place] [phone] Social History Tobacco Use Types Packs/Day Years Used Date Smoking Tobacco: Every Day Cigarettes 1 55 Smokeless Tobacco: Never Alcohol Use Standard Drinks/Week Comments Never 0 (1 standard drink = 0.6 oz pur e alcohol) PHQ-2 Answer Date Recorded Patient Health Questionnaire-2 Score 2 07/09/2023 Comments Unknown Sex and Gender Information Value Date Recorded Sex Assigned at Not on file Legal Sex Female 12:29 PM EDT Gender Identity Not on file Sexual Orientation Not on file documented as of this encounter Plan of Treatment Upcoming Encounters Date Type Department Care Team (Late st Contact Info) Description 01/26/2025 10:30 AM EDT Office Visit [facility] [address] [place] [address] Wendy Burden NP [address] [place] [phone] documented as of this encounter Visit Diagnoses Not on filedocumented in this encounter Additional Health Concerns Assessment Noted Time PHQ-9 Depression Total Score: 5 07/09/20 23 2:09 PM EST documented as of this encounter Care Teams Manager Of Training Relationship Specialty Start Date End Date Shaikh Horan MD PCP - General Internal Medicine 01/26/23 10/11/23 Shaikh Horan MD [address] [place] [address] PCP - Devoted 04/12/23 11/10/23 Shaikh Horan MD [address] [place] [phone] PCP - General Internal Medicine 10/12/23 02/10/24 Charanjit Chen MD [address] [place] [address] PCP - General Family Medicine 02/11/24 Flower Stokes LPN Licensed Practical Nurse Family Medicine 11/26/23 Betty Signh NP [address] [place] [address] Nurse Practitioner Family Medicine 02/11/24 11/20/24 Anne Hartley LPN Licensed Practical Nurse Family Medicine 03/25/2405/24 Henok Hendrix MA Family Medicine 05/24/24 documented as of this encounter
--- OUTSIDE RECORDS SUMMARY | 2024-12-03 13:47 | XMS_ITS | Encounter Summary ---
Author Organization [facility] Address [address] [place] [address] Care Team Providers Care Lithographic Proofer Apprentice Name Role Phone Shaikh NAHEED Horan Primary Care Provider [phone] Shaikh NAHEED Horan Unavailable [phone] Shaikh NAHEED Horan Primary Care Provider [phone] Flower Stokes LPN Unavailable Unavailable Charanjit Chen MD Primary Care Provider [phone] Betty Singh ASP DEVELOPER Unavailable [phone] Anne Hartley FIRST CALENDER WORKER Unavailable Unavailable Henok Hendrix MA Unavailable Unavailable Reason for Visit * Reason Comments Med Refill Encounter Details Date Type Department Care Team (Late st Contact Info) Description 08/03/2023 [facility] [address] [place] [address] Shaikh Horan MD [address] [place] [phone] Primary hypertension (CMS/HCC) (Primary Dx); Gastroesophageal reflux disease without esophagitis; Other polyneuropathy Social History Tobacco Use Types [...] Telephone Encounter - Shaikh Aung MD - 08/04/2023 9:14 AM EST Approving, but needs appt for additional refills. documented in this encounter Plan of Treatment Upcoming Encounters Date Type Department Care Team (Late st Contact Info) Description 01/26/2025 10:30 AM EDT Office Visit [facility] [address] [place] [address] Wendy Burden NP [address] [place] [phone] documented as of this encounter Visit Diagnoses Diagnosis Primary hypertension (CMS/HCC)- Primary Unspecified essential hypertension Gastroesophageal reflux disease without esophagitis Esophageal reflux Other polyneuropathy documented in this encounter Additional Health Concerns Assessment Noted Time PHQ-9 Depression Total Score: 5 07/09/20 23 2:09 PM EST documented as of this encounter Care Teams Lithographic Proofer Apprentice Relationship Specialty Start Date End Date Shaikh Horan MD PCP - General Internal Medicine 01/26/23 10/11/23 Shaikh Horan MD [address] [place] [phone] PCP - Devoted 04/12/23 11/10/23 Shaikh Horan MD [address] [place] [phone] PCP - General Internal Medicine 10/12/23 02/10/24 Charanjit Chen MD [address] [place] [address] PCP - General Family Medicine 02/11/24 Flower Stokes LPN Licensed Practical Nurse Family Medicine 11/26/23 Betty Singh NP [address] [place] [address] Nurse Practitioner Family Medicine 02/11/24 11/20/24 Anne Hartley LPN Licensed Practical Nurse Family Medicine 03/25/2405/24 Henok Hendrix MA Family Medicine 05/24/24 documented as of this encounter
--- OUTSIDE RECORDS SUMMARY | 2024-12-03 13:47 | XMS_ITS | Encounter Summary ---
Author Organization [facility] Address [id number] [address] [place] [address] Care Team Providers Care Manager Business Name Role Phone Singh, Betty Jonathan SOCIAL MEDIA MANAGER-PNEUMATIC TUBE OPERATOR Primary Care Pr ovider Encounter Details Date Type Department Care Team (Late st Contact Info) Description 10/05/2024 Orders Only [facility] [address] [place] [phone] Transcribe, Orders Support User Pain (Primary Dx) Social History Tobacco Use Types Packs/Day Years Used Date Smoking Tobacco: Former Cigarettes Smokeless Tobacco: Never Alcohol Use Standard Drinks/Week Comments Not Currently 0 (1 standard drink = 0.6 oz pur e alcohol) [facility] Utilities Answer Date Recorded In the past 12 months has [employer], oil, or water [employer] threatened to shut off services in your [...] contrast stroke alert (10/05/2024 11:15 AM EDT) us Scanning Provider External IMG CT ORDERABLES Fin al Result * CT angiogram carotid (10/04/2024 3:25 PM EDT) us Scanning Provider External IMG CT ORDERABLES Fin al Result * CT angiogram head (10/04/2024 3:20 PM EDT) us Scanning Provider External IMG CT ORDERABLES Fin al Result * CT brain without contrast stroke alert (10/04/2024 2:25 PM EDT) us Scanning Provider External IMG CT ORDERABLES Fin al Result documented in this encounter Visit Diagnoses Diagnosis Pain- Primary Generalized pain documented in this encounter Care Teams Manager Business Relationship Specialty Start Date End Date Betty Singh, SOCIAL MEDIA MANAGER-PNEUMATIC TUBE OPERATOR [address] [place] [address] PCP - General Nurse Practitioner 06/13/24 documented as of this encounter
--- NOTE | 2024-12-03 13:54 | ECG_ITS ---
[facility] Test Date: 2024-12-03 Pat Name: BHUPENDRA MIRANDA Department: Room: - Gender: Female Java Performance Engineer: : 1950 Requested By: [id number] Order Number: [id number] [place] MD: ANITRA SOARES M.D. Measurements Intervals [place] Rate: 105 P: 61 MD: 188 QRS: -33 QRSD: 84 T: 80 QT: 318 QTc: 379 Interpretive Statements 1120 Sinus tachycardia 7200 Abnormal left axis deviation 8003 Consistent with pulmonary disease 9150 abnormal ECG Compared to ECG 10/04/2024 22:48:27 Left-axis deviation now present Sinus rhythm no longer present Myocardial infarct finding no longer present Electronically Signed On 12-04-2024 13:46:18 EDT by ANITRA SOARES M.D.
--- NOTE | 2024-12-03 13:55 | XR_ITS ---
The [address] [address] Patient Name: BHUPENDRA MIRANDA MRN: [id number] date: 1950 Sex: F Assigned Patient Location: ER Current Patient Location: ER Accession/Order Number: [id number] Exam Date: 12/03/2024 14:30 Report Date: 12/03/2024 14:37 At the request of: BRICE RUIZ MD Procedure: XR chest 1V XR chest 1V 12/03/2024 2:25 PM SIGNS AND SYMPTOMS: Chest pain PROTOCOL: Frontal radiograph of the chest COMPARISON: 10/05/2024 FINDINGS: The trachea is midline. Atherosclerotic changes are present in the thoracic aorta. There is cardiomegaly. Opacity is noted at the left lung base possibly representing atelectasis and/or a left basilar pleural effusion. However, there is a relatively large pericardial fat pad in this location on the previous CT. There is a similar masslike pleural-based density along the left upper lobe laterally image 2.3 cm. The bony thorax is intact. Postoperative changes are noted in the right shoulder. XR/XR chest 1V IMPRESSION: There is a similar masslike pleural-based density along the left upper lobe laterally image 2.3 cm. Opacity is noted at the left lung base possibly representing atelectasis and/or a left basilar pleural effusion. However, there is a relatively large pericardial fat pad in this location on the previous CT. There is cardiomegaly. Impression dictated by: Aj Salazar M.D. 12/03/2024 2:37 PM Dictation Location: [place] [address] Electronically authenticated by: [id number] Y Date: 12/03/2024 14:37
--- NOTE | 2024-12-03 13:55 | ED.GENADUL1 ---
HPI HPI - General Adult General Chief complaint: Chest Pain Stated complaint: R UNDER ARM PAIN Time Seen by Provider: 12/03/24 13:44 Source: patient Mode of arrival: walk-in History of Present Illness HPI narrative: 74-year-old female presents for pain on the right side of her chest which she has had for 3 months. She is a poor historian. Initially she told me that it started a month ago but her corrected her and told me it started 3 months ago. She was in this hospital about a month and a half ago and at that time developed some weakness in her leg but had a negative MRI. She has had no trauma or cough. Movement seems to make it worse. She points to her right upper lateral rib region to indicate where the pain is. She is on Eliquis. Related Data Home Medications ?Medication ?Instructions ?Recorded ?Confirmed albuterol sulfate 90 mcg/actuation 2 inh inhalation Q4H PRN shortness 03/02/24 12/03/24 aerosol inhaler of breath or wheezing aspirin 81 mg tablet,delayed 81 mg PO DAILY 03/02/24 12/03/24 release (Adult Aspirin Regimen) atorvastatin 80 mg tablet 80 mg PO DAILY 03/02/24 12/03/24 budesonide 160 mcg-glycopyr 9 2 inh inhalation BID 03/02/24 12/03/24 mcg-formot 4.8 mcg/actuation HFA inhaler (Breztri Aerosphere) linaclotide 145 mcg capsule 145 mcg PO DAILY PRN diarrhea 03/02/24 12/03/24 (Linzess) pantoprazole 40 mg tablet,delayed 40 mg PO DAILY 03/02/24 12/03/24 release trazodone 100 mg tablet 100 mg PO QPM 03/02/24 12/03/24 ferrous sulfate 325 mg (65 mg 325 mg PO DAILY 06/13/24 12/03/24 iron) tablet,delayed release folic acid 1 mg tablet 1 mg PO DAILY 06/13/24 12/03/24 lamotrigine 150 mg tablet 150 mg PO QAM 10/05/24 12/03/24 losartan 25 mg tablet 25 mg PO QAM 12/03/24 12/03/24 Previous Rx's ?Medication ?Instructions ?Recorded apixaban 5 mg tablet (Eliquis) 5 mg PO BID #60 tabs 03/28/25 lacosamide 100 mg tablet 100 mg PO Q12H #60 tabs 10/07/24 acetaminophen 300 mg-codeine 30 mg 1 tab PO Q6H PRN pain 5 days #20 12/03/24 tablet tabs Allergies Allergy/AdvReac Type Severity Reaction Status Date / Time No Known Drug Allergies Allergy Verified 10/04/24 14:18 Opioid HPI Opioid Management Most Recent Opioid Data: Last Pain Scale 4 10/07/24, 09:50 Last ORT Total Score 2 10/04/24, 17:22 Last ORT Risk Category Low Risk 10/04/24, 17:22 Ur Phencyclidine Scrn, (NEGATIVE) Positive A 06/13/24, 02:08 Review of Systems ROS Narrative A ten point review of systems is negative except as noted above. 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) ?I69.320 - Aphasia following cerebral infarction (ICD-10) Hemiparesis of right dominant side as late effect of cerebral infarction ?I69.351 - Hemiplegia and hemiparesis following cerebral infarction affecting right dominant side (ICD-10) Small cell lung cancer ?C34.90 - Malignant neoplasm of unspecified part of unspecified bronchus or lung (ICD-10) Hypertension ?I10 - Essential (primary) hypertension (ICD-10) Anxiety ?F41.9 - Anxiety disorder, unspecified (ICD-10) COPD (chronic obstructive pulmonary disease) ?J44.9 - Chronic obstructive pulmonary disease, unspecified (ICD-10) Expressive aphasia ?R47.01 - Aphasia (ICD-10) Right arm weakness ?R29.898 - Other symptoms and signs involving the musculoskeletal system (ICD-10) Altered mental status ?R41.82 - Altered mental status, unspecified (ICD-10) Acute hypoxemic respiratory failure ?J96.01 - Acute respiratory failure with hypoxia (ICD-10) Witnessed seizure-like activity ?R56.9 - Unspecified convulsions (ICD-10) Metabolic encephalopathy ?G93.41 - Metabolic encephalopathy (ICD-10) Basal pneumonia of both lungs ?J18.9 - Pneumonia, unspecified organism (ICD-10) H/O stroke without residual deficits ?Z86.73 - Personal history of transient ischemic attack (TIA), and cerebral infarction without residual deficits (ICD-10) Neck pain ?M54.2 - Cervicalgia (ICD-10) Fibromyalgia ?M79.7 - Fibromyalgia (ICD-10) Back pain ?M54.9 - Dorsalgia, unspecified (ICD-10) Anemia ?D64.9 - Anemia, unspecified (ICD-10) Mass of right parotid gland ?K11.8 - Other diseases of salivary glands (ICD-10) AAA (abdominal aortic aneurysm) ?I71.40 - Abdominal aortic aneurysm, without rupture, unspecified (ICD-10) Bipolar disorder ?F31.9 - Bipolar disorder, unspecified (ICD-10) Dyspnea on exertion ?R06.09 - Other forms of dyspnea (ICD-10) Pulmonary nodule ?R91.1 - Solitary pulmonary nodule (ICD-10) Emphysema lung ?J43.9 - Emphysema, unspecified (ICD-10) Restless leg ?G25.81 - Restless legs syndrome (ICD-10) GERD (gastroesophageal reflux disease) ?K21.9 - Gastro-esophageal reflux disease without esophagitis (ICD-10) Constipation ?K59.00 - Constipation, unspecified (ICD-10) Diarrhea ?R19.7 - Diarrhea, unspecified (ICD-10) IBS (irritable bowel syndrome) ?K58.9 - Irritable bowel syndrome without diarrhea (ICD-10) High cholesterol ?E78.00 - Pure hypercholesterolemia, unspecified (ICD-10) Mass of left lung (2023) ?R91.8 - Other nonspecific abnormal finding of lung field (ICD-10) Right arm weakness ?R29.898 - Other symptoms and signs involving the musculoskeletal system (ICD-10) CVA (cerebral vascular accident) (2013) ?I63.9 - Cerebral infarction, unspecified (ICD-10) Surgical History History of colonoscopy ?Z98.890 - Other specified postprocedural states (ICD-10) History of hysterectomy ?Z90.710 - Acquired absence of both cervix and uterus (ICD-10) History of cholecystectomy ?Z90.49 - Acquired absence of other specified parts of digestive tract (ICD-10) History of repair of rotator cuff ?Z98.890 - Other specified postprocedural states (ICD-10) History of arthroscopy of shoulder ?Z98.890 - Other specified postprocedural states (ICD-10) History of tubal ligation ?Z98.51 - Tubal ligation status (ICD-10) Family History Other Family history of DVT Family history of lung cancer Family history of stroke Social History (Updated 10/04/24 @ 17:45 by Indira Meyers RN) Within the past year, how often did you have a drink containing alcohol: monthly or less Within the past year, how often did you have six or more drinks on one occasion: never Smoking status: Former smoker Second hand tobacco smoke exposure: No Non-prescribed substance use: denies use Previous occupational history: [employer] Known occupational exposures/hazards: No Highest level of school completed/degree received: 9th grade Are you now , , , , never or living with a partner: living with partner In a typical week, how many times do you talk on the telephone with family, friends, or neighbors: 3 or more times per week Little interest or pleasure in doing things: not at all Feeling down, depressed, or hopeless: not at all Feel stressed/tense/nervous/anxious/difficulty sleeping: only a little Exam Narrative Exam Narrative: Nurses note and vital signs reviewed and patient is not hypoxic. General: The patient appears well and in no apparent distress. Patient is resting comfortably on cart. Skin: Warm, dry, no pallor noted. There is no rash noted. Head: Normocephalic, atraumatic Eye: Normal conjunctiva, no drainage Ears, Nose, Mouth, and Throat: oral mucosa is moist. Nares patent. Cardiovascular: Regular Rate and Rhythm Respiratory: Patient is in no distress, no accessory muscle use, lungs are clear to auscultation, no wheezing, rales or rhonchi; chest wall has no crepitus bruise rash or other skin defect Back: non-tender GI: Soft and nontender Musculoskeletal: The patient has no evidence of calf tenderness, no pitting edema, symmetrical pulses noted bilaterally Neurological: Awake and alert Psychiatric: Cooperative Constitutional Vital Signs, click to edit/add: Last Vital Signs Temp 97.8 F 12/03/24 13:42 Pulse 91 H 12/03/24 14:50 Resp 22 H 12/03/24 14:50 BP 147/100 H 12/03/24 14:39 Pulse Ox 97 12/03/24 14:50 O2 Del Method Room Air 12/03/24 13:42 Course Vital Signs Vital signs: Vital Signs Temperature 97.8 F 12/03/24 13:42 Pulse Rate 74 12/03/24 13:42 Respiratory Rate 20 12/03/24 13:42 Blood Pressure 174/102 H 12/03/24 13:42 Pulse Oximetry 92 L 12/03/24 13:42 Oxygen Delivery Method Room Air 12/03/24 13:42 Temperature 97.8 F 12/03/24 13:42 Pulse Rate 91 H 12/03/24 14:50 Respiratory Rate 22 H 12/03/24 14:50 Blood Pressure 147/100 H 12/03/24 14:39 Pulse Oximetry 97 12/03/24 14:50 Oxygen Delivery Method Room Air 12/03/24 13:42 Medical Decision Making MDM Narrative Medical decision making narrative: Her workup is negative. She has had this symptom for 3 months. Have no clinical suspicion of pulmonary embolism and she is on Eliquis. She will be treated symptomatically. Treatment diagnosis and follow-up were discussed with the patient. She has known lung cancer and has received radiation therapy. The mass in her chest is previously known. Differential Diagnosis Differential Diagnosis: Myocardial infarction, atypical chest pain, chest wall pain, pneumothorax Lab Data Lab results reviewed: Yes I reviewed the patient's lab results Labs: Lab Results 12/03/24 Range/Units 14:02 WBC 10.9 (4.0-11.0) 10^3/uL RBC 5.30 (4.20-5.40) 10^6/uL Hgb 14.6 (12.0-16.0) g/dL Hct 46.7 (36.0-48.0) % MCV 88.1 (81.0-99.0) fL MCH 27.5 (26.7-34.0) pg MCHC 31.3 (29.9-35.2) g/dL RDW 15.9 H (11.0-15.0) % Plt Count 369 (150-450) 10^3/uL MPV 9.7 (9.5-13.5) fL Neut % (Auto) 66.4 (43.0-75.0) % Lymph % (Auto) 23.7 (20.5-60.0) % [place] % (Auto) 8.2 (1.7-12.0) % Eos % (Auto) 0.7 L (0.9-7.0) % Baso % (Auto) 0.8 (0.2-2.0) % Neut # (Auto) 7.3 H (1.4-6.5) 10^3/uL Lymph # (Auto) 2.6 (1.2-3.8) 10^3/uL [place] # (Auto) 0.9 H (0.3-0.8) 10^3/uL Eos # (Auto) 0.1 (0.0-0.7) 10^3/uL Baso # (Auto) 0.1 (0.0-0.1) 10^3/uL Abs Immat Gran (auto) 0.02 (0.00-0.03) 10^3/uL Imm/Tot Granulo (auto) 0.2 (0.0-0.5) % Sodium 141 (136-145) mmol/L Potassium 3.9 (3.5-5.1) mmol/L Chloride 104 (98-107) mmol/L Carbon Dioxide 31.0 (21.0-32.0) mmol/L Anion Gap 9.9 BUN 13.0 (7.0-18.0) mg/dL Creatinine 0.92 (0.55-1.02) mg/dL Est GFR ( Amer) >60 (>=60 mL/min/1.73m^2) Est GFR (Non-Af Amer) >60 (>=60 mL/min/1.73m^2) BUN/Creatinine Ratio 14.1 Glucose 107 H (74-106) mg/dL Calcium 9.3 (8.5-10.1) mg/dL Troponin I High Sens 7.8 (4.0-51.3) pg/mL Imaging Data Chest x-ray: Radiologist's impression: ITS Impressions Chest X-Ray 12/03/24 13:55 IMPRESSION: There is a similar masslike pleural-based density along the left upper lobe laterally image 2.3 cm. Opacity is noted at the left lung base possibly representing atelectasis and/or a left basilar pleural effusion. However, there is a relatively large pericardial fat pad in this location on the previous CT. There is cardiomegaly. Impression dictated by: Aj Salazar M.D. 12/03/2024 2:37 PM Dictation Location: [place] [id number] Electronically authenticated by: [id number] Y Date: 12/03/2024 14:37 ECG Data Attestation: I personally reviewed and interpreted this ECG as follows: (EKG on my interpretation shows sinus rhythm with rate of 105) Discharge Plan Discharge Chief Complaint: Chest Pain Clinical Impression: Chest wall pain Patient Disposition: Home, Self-Care Time of Disposition Decision: 15:09 Condition: Good Mode of Transportation: Private Vehicle Prescriptions / Home Meds: New acetaminophen-codeine 300-30 mg tablet 1 tab PO Q6H PRN (Reason: pain) 5 Days Qty: 20 0RF No Action albuterol sulfate 90 mcg/actuation HFA aerosol inhaler 2 inh INHALATION Q4H PRN (Reason: shortness of breath or wheezing) aspirin [Adult Aspirin Regimen] 81 mg tablet,delayed release (DR/EC) 81 mg PO DAILY atorvastatin 80 mg tablet 80 mg PO DAILY Breztri Aerosphere 160-9-4.8 mcg/actuation HFA aerosol inhaler 2 inh inhalation BID pantoprazole 40 mg tablet,delayed release (DR/EC) 40 mg PO DAILY trazodone 100 mg tablet 100 mg PO QPM Linzess 145 mcg capsule 145 mcg PO DAILY PRN (Reason: diarrhea) ferrous sulfate 325 mg (65 mg iron) tablet,delayed release (DR/EC) 325 mg PO DAILY folic acid 1 mg tablet 1 mg PO DAILY lamotrigine 150 mg tablet 150 mg PO QAM Eliquis 5 mg Tablet 5 mg PO BID Qty: 60 0RF lacosamide 100 mg tablet 100 mg PO Q12H Qty: 60 0RF losartan 25 mg tablet 25 mg PO QAM Print Language: Chinese Instructions: Chest Wall Pain (ED) Referrals: Wendy Burden NP [Primary Care Provider, Family Practice] - 1 week
[2024-12-03 14:11] LABS: Basophils Absolute Auto 0.1 10^3/uL (0.0-0.1); Basophils Percent Auto 0.8 % (0.2-2.0); Eosinophils Absolute Auto 0.1 10^3/uL (0.0-0.7); Eosinophils Percent Auto 0.7 % (0.9-7.0); Hematocrit 46.7 % (36.0-48.0); Hemoglobin 14.6 g/dL (12.0-16.0); Immature Granulocytes Abs Auto 0.02 10^3/uL (0.00-0.03); Immature Granulocytes Pct Auto 0.2 % (0.0-0.5); Lymphocytes Absolute Auto 2.6 10^3/uL (1.2-3.8); Lymphocytes Percent Auto 23.7 % (20.5-60.0); Mean Corpuscular HGB Conc 31.3 g/dL (29.9-35.2); Mean Corpuscular Hemoglobin 27.5 pg (26.7-34.0); Mean Corpuscular Volume 88.1 fL (81.0-99.0); Mean Platelet Volume 9.7 fL (9.5-13.5); Monocytes Absolute Auto 0.9 10^3/uL (0.3-0.8); Monocytes Percent Auto 8.2 % (1.7-12.0); Neutrophils Absolute Auto 7.3 10^3/uL (1.4-6.5); Neutrophils Percent Auto 66.4 % (43.0-75.0); Platelet Count 369 10^3/uL (150-450); Red Cell Distribution Width 15.9 % (11.0-15.0); White Blood Count 10.9 10^3/uL (4.0-11.0)
[2024-12-03 14:31] LABS: Anion Gap 9.9; BUN Creatinine Ratio 14.1; Calcium 9.3 mg/dL (8.5-10.1); Chloride 104 mmol/L (98-107); Estimated GFR (African America >60 (>=60 mL/min/1.73m^2); Estimated GFR (Non-African Ame >60 (>=60 mL/min/1.73m^2); Glucose 107 mg/dL (74-106); Potassium 3.9 mmol/L (3.5-5.1); Sodium 141 mmol/L (136-145)
[2024-12-03 14:37] LABS: Troponin I High Sensitivity 7.8 pg/mL (4.0-51.3)
== END 2024-12-03 15:21 | disposition home or self-care (01) ==
PROVIDERS: Emergency Provider Emergency Medicine; PCP Nurse Practitioner
DX: R07.89 Other chest pain (principal); I51.7 Cardiomegaly; R91.8 Other nonspecific abnormal finding of lung field; C34.90 Malignant neoplasm of unspecified part of unspecified bronchus or lung
CPT/HCPCS: 36415; 71045; 80048; 84484; 85025; 93005; 99285

== ENCOUNTER 2024-12-14 10:45 | Outpatient (OUT) | payer MEDICARE, SELFPAY ==
--- OUTSIDE RECORDS SUMMARY | 2024-12-14 11:04 | XMS_ITS | CCD ---
Author Organization [facility] Inform ion Partnership [facility] Care Team Providers Care Anodizing Line Operator Name Role Phone FAWWAD, HURTADO H [...] Bautista Unavailable Nigel Valladares Unavailable Aung FARFAN, Hurtado Primary Care Provider Shaikh Horan MD Unavailable MD Aung [facility] Primary Care Provider [phone] MD Yony Bernardino Emergency Provider CLOTILDE Bautista-C Cherelle Mckay Attending Provider SHAIKH HORAN Referring Unavailable Arden De Leon Attending Unavailable DO Leigh Thompson Attending Provider MD Mikhail Moon Attending Provider MD Aung [facility] Primary Care Provider [phone] Charanjit Chen MD Primary Care Provider Samantha ASSISTANT HOUSEKEEPING MANAGER, Chris Unavailable Naeem HOUSE MOVER SUPERVISOR, Anne Unavailable Unavailable Naeem HOUSE MOVER SUPERVISOR, Anne Unavailable Unavailable Henok Hendrix MA Unavailable Unavailable Kike HOUSE MOVER SUPERVISOR, Ardana Unavailable Unavailable Pinon HOUSE MOVER SUPERVISOR, Ardana Unavailable Unavailable Singh BEE WORKER-ARBOR PRESS OPERATOR, Chris Castillo Primary Care Pr ovider OMBALLI, MOHAMED Referring Unavailable OMBALLI, MOHAMED Referring Unavailable NURIA, ERYN Referring Unavailable NAWRAS, ALI Attending Unavailable NAWRAS, ALI Admitting Unavailable OMBALLI, MOHAMED Attending Unavailable OMBALLI, MOHAMED Attending Unavailable OMBALLI, MOHAMED Referring Unavailable OMBALLI, MOHAMED Referring Unavailable Reynaldo Horan MDikh Primary Care Provider Nitza Russell MD Attending Provider Mikhail Moon MD Referring Provider Samantha ASSISTANT HOUSEKEEPING MANAGER, Chris Unavailable Mikhail Moon MD Referring Provider Samantha ASSISTANT HOUSEKEEPING MANAGER-C, [facility] er Judit Martini MD Attending Provider Magui Cordero PA-C Attending Provider Red FARFAN, Imbethanie Referring Provider Samantha ASSISTANT HOUSEKEEPING MANAGER-C, [facility] er Judit Martini MD Attending Provider SHAIKH HORAN Attending Unavailable SHAIKH HORAN Attending Unavailable SAMANTHA, CHRIS Attending Unavaileduardo e SAMANTHA, CHRIS Attending UnavailJAVIER Arreola Attending Unavailable ASAAD, IMAD Referring Unavailable SINGH, CHRIS Attending UnavailJAVIER Arreola Attending Unavailable SAMANTHA, CHRIS Attending UnavailROMEL Vidal Attending Unavailable NURIA, ERYN Referring Unavailable KIANNA ROMAN Attending Unavailable WENDY BURDEN Attending Unavailable Red FARFAN, Mikhail Referring Provider [phone] Samantha MABRY-C, [facility] er Judit Martini MD Attending Provider Asabethanie, Imad Referring Unavailable Judit Martini R Admitting Unavailable Judit Martini Attending Unavailable [facility] Primary Care Unavaila ble Samsa, Leigh P Admitting Unavailable Samsa, Leigh P Attending Unavailable [facility] Primary Care Unavailable Samsa, Leigh P Admitting Unavailable Samsa, Leigh P Attending Unavailable [facility] Primary Care Unavailable Magui Cordero Admitting Unavailable Magui Cordero Attending Unavailable Cherelle Bautista Attending Unavailable [facility] Primary Care Unavailable Cherelle Bautista Admitting Unavailable [facility], [facility] Primary Care Unavailable Asaad, Imad Admitting Unavailable Asaad, Imad Attending Unavailable Asaad, Imad Attending Unavailable [facility] Primary Care Unavailable Asaad, Imad Admitting Unavailable Bernardino Bhakta Admitting Unavailable Bernardino Bhakta Attending Unavailable Shaikh Horan Primary [facility] Unavailable Allergies Allergy Classification Reported Allergen(s) Allergy Type Date of Onset Reaction(s) Facility (1 source) No Known Medication Allergies; 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: [No Known Medication Allergies] Propensity to adverse reactions (disorder) [facility] Repository (1 source) ALLERGIES NOT ON FILE; 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: [ALLERGIES NOT ON FILE] Propensity to adverse reactions (disorder) [facility] Repository Medications Current Medications Medication Drug Class(es) Dates Sig (Normalized) Sig (Original) 30 ACTUAT fluticasone furoate 0.2 MG/ACTUAT / umeclidinium 0.0625 MG/ACTUAT / vilanterol 0.025 MG/ACTUAT Dry Powder Inhaler [Trelegy] (2 sources) Trelegy Ellipta 200-62.5-25 MCG/ACT Inhalation for 30 Days Active [id number] 200 actuat albuterol 0.09 mg/actuat metered dose [...] Indications: Moderate COPD (chronic obstructive pulmonary disease) ([facility]) Inhale 2 puffs every 4 (four) hours if needed for wheezing or shortness of breath 6.7 g 11/26/2023 Active Start: 07-02-2023 take 2 puff(s) by in halation every four hours albuterol HFA 90 mcg/act inhaler Inhale 2 puffs every 4 (four) hours if needed for shortness of breath 0 07/02/2023 Active apixaban 5 mg oral tablet (10 sources) Factor Xa Inhibitor Start: 10-27-2024 End: 01-25-2025 take 1 tablet by mouth in the morning apixaban (Eliquis) 5 MG tablet Indications: Cerebrovascular accident (CVA), unspecified mechanism ([facility]/HCC) Take 1 tablet (5 mg) by mouth in the morning and 1 tablet (5 mg) before bedtime. 180 tablet 10/27/2024 01/25/2025 Active aspirin 81 mg delayed release oral tablet (14 sources) Platelet Aggregation Inhibitor, Nonsteroidal Anti-inflammatory Drug Start: 12-27-2023 take 1 tablet by mouth once daily Aspirin 81 mg tablet,delayed release (DR/EC) Active 81 MG PO Daily December 27, 2023 12:00am Baby Aspirin Act thelma atorvastatin 80 mg oral tablet (20 sources) HMG-CoA Reductase Inhibitor Start: 06-09-2022 End: 01-25-2025 take 1 tablet by mouth once daily Atorvastatin 80 mg tablet Active 80 MG PO Daily December 27, 2023 12:00am FreeTextSig: Oral; Note: Source Status: Taking; Qty: 90 Tablet; Provider: Jacquelyn Manning ( ) 120 actuat budesonide 0.16 mg/actuat / formoterol fumarate 0.0048 mg/actuat / glycopyrrolate 0.009 mg/actuat metered dose inhaler (20 sources) Corticosteroid, beta2-Adrenergic Agonist Start: 03-11-2024 Budesonide-Glycopy r-Formoterol (Breztri Aerosphere) 160-9-4.8 mcg/actuation HFA aerosol inhaler Active 2 INH INHALATION every day in the morning and in the evening March 11, 2024 12:00am Start: 03-02-2024 End: 06-27-2024 take 2 puff(s) by inhalation in the morning Cwwzpzi-Msxajetzpas-Pzjasqjrui (Breztri Aerosphere) 160-9-4.8 MCG/ACT aerosol Indications: Moderate COPD (chronic obstructive pulmonary disease) (CMS/HCC) Inhale 2 puffs in the morning and 2 puffs before bedtime. 10.7 g 2 06/27/2024 Active cephalexin 500 mg oral capsule (1 source) Cephalosporin Antibacterial Start: 11-02-2024 End: 11-09-2024 take 1 capsule by mouth in the morning cephalexin (Keflex) 500 MG capsule Indications: Urinary tract infection symptoms , UTI symptoms Take 1 capsule (500 mg) by mouth in the morning and 1 capsule (500 mg) before bedtime. Do all this for 7 days. 14 capsule 11/02/2024 11/09/2024 Active esomeprazole 40 mg delayed release oral capsule (8 sources) Proton Pump Inhibitor Start: 12-24-2022 End: 03-24-2023 take 1 capsule by mouth once daily esomeprazole 40 mg Cap-EC 40 mg = 1 cap(s), Oral, Daily, # 90 cap(s), Refills(s) 0, Pharmacy: [facility], 159, cm, 12/24/22 10:00:00 EDT, Height/Length Dosing, 67.6, kg, 12/24/22 10:00:00 EDT, Weight Dosing Start Date: 02/18/23 Status: Ordered fenofibrate 48 mg oral tablet (18 sources) Peroxisome Proliferator Receptor alpha Agonist Start: 03-07-2024 End: 03-07-2025 take 1 tablet by mouth once daily fenofibrate (Tricor) 48 MG tablet Indications: Mixed hyperlipidemia (CMS/HCC) Take 1 tablet (48 mg) by mouth Daily 30 tablet 11 03/07/2024 08/02/2024 Discontinued ferrous sulfate 325 mg oral tablet (8 sources) Start: 2024 take 1 tablet by mouth once daily Ferrous Sulfate 325 mg (65 mg iron) tablet Active 325 MG PO Daily 2024 1:00am Start: 01-06-2023 End: 05-19-2023 take 1 tablet by mouth once daily ferrous sulfate 325 mg oral enteric coated tablet 325 mg = 1 tab(s), Oral, Daily, X 90 day(s), # 90 tab(s), Refills(s) 0, Pharmacy: [facility], 159, cm, 12/24/22 10:00:00 EDT, Height/Length Dosing, 67.6, kg, 12/24/22 10:00:00 EDT, Weight Dosing Start Date: 02/18/23 Stop Date: 05/19/23 Status: Ordered Fluticasone Furoate-Vilanterol (4 sources) Corticosteroid, beta2-Adrenergic Agonist Start: 2024 Fluticasone Furoate-Vilanterol 200-25 mcg/dose blister with device Active 1 INH INHALATION Daily 2024 1:00am Start: 2024 Fluticasone Fu roate-Vilanterol 200-25 mcg/dose blister with device Active 1 INH INHALATION Daily 2024 12:00am Cvpdcbpwuxw-Vgnucvkze-Owonqu (Trelegy Ellipta) 200-62.5-25 MCG/ACT aerosol powder (1 source) Start: 08-20-2023 End: 11-18-2023 take 1 puff(s) by inhalation in the morning Phormhdpwll-Kzrnzedtd-Mzlaxs (Trelegy Ellipta) 200-62.5-25 MCG/ACT aerosol powder Indications: Moderate COPD (chronic obstructive pulmonary disease) (CMS/HCC) Inhale 1 puff in the morning. 28 each 2 08/20/2023 11/18/2023 Active lacosamide 100 mg oral table t (20 sources) Anti- epile ptic Agent Start: 09-26-2024 End: 10-26-2024 take 1 tablet by mouth in the morning lacosamide (Vimpat) 100 MG tablet Indications: Alteration of awareness Take 1 tablet (100 mg) by mouth in the morning and 1 tablet (100 mg) before bedtime. 60 tablet 1 09/26/2024 Active Start: 06-17-2024 End: 09-26-2024 take 1 tablet by mouth twice daily Lacosamide 150 mg tablet Active 150 MG PO Twice daily July 28, 2024 1:00am lamoTRIgine 150 mg oral tablet (20 sources) Mood Stabilizer, Anti-epileptic Agent Start: 09-26-2024 End: 10-26-2024 take 1 tablet by mouth in the morning lamoTRIgine (LaMICtal) 150 MG tablet Indications: Alteration of awareness Take 1 tablet (150 mg) by mouth in the morning. 30 tablet 2 09/26/2024 Active Start: 07-28-2024 End: 09-26-2024 lamoTRIgine (LaMICtal) [...] 2024. 07/28/2024 Active Start: 06-17-2024 End: 08-02-2024 take 1 tablet by mouth once daily Lamotrigine 25 mg tablet Active 25 MG PO Daily July 28, 2024 1:00am linaclotide 0.145 mg oral capsule (20 sources) Guanylate Cyclase-C Agonist Start: 11-26-2023 End: 08-02-2024 take 1 capsule by mouth once daily Linaclotide (Linzess) 145 mcg capsule Active 145 MCG PO Daily 2024 1:00am LORazepam 0.5 mg oral tablet (5 sources) Benzodiazepine Start: 10-28-2024 End: 11-30-2024 take 1 tablet by mouth every twenty-four hours as needed for anxiety and anxiety and anxiety LORazepam (Ativan) 0.5 MG tablet Indications: Anxiety Take 1 tablet (0.5 mg) by mouth Daily as needed for anxiety for up to 15 days 15 tablet 11/15/2024 11/30/2024 Active losartan potassium 25 mg oral tablet (20 sources) Angiotensin 2 Receptor Tristian Start: 06-18-2024 End: 01-25-2025 take 1 tablet by mouth once daily Losartan 25 mg tablet Active 25 MG PO Daily July 28, 2024 1:00am nicotine 4 mg oral lozenge (2 sources) [...] smoking cessation 30 lozenge 1 07/09/2023 Active polyethylene glycol 3350 88474 mg powder for oral solution (11 sources) Osmotic Laxative Start: 2024 Polyethylene Glycol 3350 (Miralax) 17 gram/dose powder Active 17 GM PO Daily 2024 1:00am Start: 12-24-2022 MiraLax Refill (s) 0 Start Date: 12/24/22 Status: Ordered traZODone hydrochloride 100 mg oral tablet (20 sources) Serotonin Reuptake Inhibitor Start: 06-09-2022 End: 01-29-2025 take 1 tablet by mouth once daily Trazodone 100 mg tablet Active 100 MG PO Daily December 27, 2023 12:00am FreeTextSig: TAKE 1 TABLET BY MOUTH DAILY Oral; Note: Source Status: Taking; Refills: 0; Qty: 30 Each; Provider: Aung Hurtado Completed/Discontinued Medications Medication Drug Class(es) Dates Sig [...] Status: Ordered amLODIPine 10 mg oral tablet (14 sources) Dihydropyridine Calcium Channel Tristian Start: 12-27-2023 [...] procedure, # 2 tab(s), Refills(s) 0, Pharmacy: [id number], 159, cm, 08/11/22 13:12:00 EST, Height/Length Dosing, 64, kg, 08/11/22 13:12:00 EST, Weight Dosing Start Date: 08/14/22 Status: Ordered dicyclomine hydrochloride 20 mg oral tablet (20 sources) Anticholinergic Start: 11-26-2023 End: 07-28-2024 take 1 tablet by mouth three times daily Dicyclomine 20 mg tablet Discontinued 20 MG PO Three times daily December 27, 2023 12:00am July 28, 2024 3:22pm FreeTextSig: TAKE 1 TABLET BY MOUTH THREE TIMES DAILY Oral; Note: Source Status: Taking; Refills: 0; Qty: 90 Each; Provider: Aung Hurtado take 1 tablet by edelmira three times daily Dicyclomine HCl 20 MG TAKE 1 TABLET BY M OUT THREE TIMES DAILY Oral for 30 Days Active ezetimibe 10 mg oral tablet (20 sources) Dietary Cholesterol Absorption Inhibitor Start: 07-09-2023 End: 07-28-2024 take 1 tablet by mouth once daily in the morning Ezetimibe 10 mg tablet Discontinued 10 MG PO Every morning December 27, 2023 12:00am July 28, 2024 3:22pm Fluticasone-Umecl idin-Vilanter (12 sources) Anticholinergic, Corticosteroid, beta2-Adrenergic Agonist Start: 12-30-2023 End: 03-11-2024 Fluticasone-Umeclid in-Vilanter (Trelegy Ellipta) 100-62.5-25 mcg blister with device Discontinued INHALATION December 29, 2023 11:00pm March 11, 2024 7:20am Start: 12-30-2023 End: 03-11-2024 Gqpxjylocqe-Nyduxfeqp-Rqggpv er (Trelegy Ellipta) 100-62.5-25 mcg blister with device Discontinued INHALATION December 30, 2023 12:00am March 11, 2024 8:20am Start: 12-30-2023 Fluticasone-Um eclidin-Vilanter (Trelegy Ellipta) 100-62.5-25 mcg blister with device Active INHALATION December 30, 2023 12:00am Petulnqhjmm-Adavtnyyb-Dyroln er (13 sources) Start: 12-27-2023 End: 03-11-2024 Qxykpepykxb-Wgxmkydnr-Kjgowl er (Trelegy Ellipta) 200-62.5-25 mcg blister with device Discontinued 1 INH INHALATION Daily December 26, 2023 11:00pm March 11, 2024 7:20am FreeTextSig: Inhalation; Note: Source Status: Taking; Qty: 60 Each; Provider: Jacquelyn Manning ( ) Start: 12-27-2023 End: 03-11-2024 Napqhneurnn-Laeazjhgd-Mmdnhh er (Trelegy Ellipta) 200-62.5-25 mcg blister with [...] tablet Discontinued 1 MG PO Daily December 27, 2023 12:00am July 28, 2024 3:23pm FreeTextSig: TAKE 1 TABLET BY MOUTH DAILY Oral; Note: Source Status: Taking; Refills: 0; Qty: 30 Each; Provider: Lianet Machuca Start: 01-06-2023 End: 02-05-2023 take 1 tablet by mouth once daily folic acid 1 mg Tab 1 mg = 1 tab(s), Oral, Daily, X 30 day(s), # 30 tab(s), Refills(s) 0, Pharmacy: [id number], 159, cm, 12/24/22 10:00:00 EDT, Height/Length Dosing, 67.6, kg, 12/24/22 10:00:00 EDT, Weight Dosing Start Date: 01/06/23 Stop Date: 02/05/23 Status: Ordered gabapentin 300 mg oral capsule (20 sources) Anti-epileptic Agent Start: 06-09-2022 End: 10-31-2024 take 1 capsule by mouth three times daily Gabapentin 300 mg capsule Discontinued 300 MG PO Three times daily December 27, 2023 12:00am July 28, 2024 3:23pm pantoprazole 40 mg delayed release oral tablet (20 sources) Proton Pump Inhibitor Start: 11-25-2023 End: 10-29-2024 take 1 tablet by mouth once daily Pantoprazole 40 mg tablet,delayed release (DR/EC) Discontinued 40 MG PO Daily December 27, 2023 12:00am July 28, 2024 3:23pm FreeTextSig: TAKE 1 TABLET BY MOUTH DAILY Oral; Note: Source Status: Taking; Refills: 0; Qty: 30 Each; Provider: Aung Hurtado Start: 08-04-2023 take 1 tablet by edelmira th once daily pantoprazole (ProtoNix) 40 MG EC tablet Indications: Gastroesophageal reflux disease without esophagitis TAKE 1 TABLET BY MOUTH EVERY DAY 30 tablet 0 08/04/2023 Active take 1 tablet by edelmira th once daily Pantoprazole Sodium 40 MG TAKE 1 TABLET BY MOUTH DAILY Oral for 30 Days Active polyethylene glycol 3350 062023 mg / potassium chloride 1480 mg / sodium bicarbonate 5720 mg / sodium chloride 81030 mg powder for oral solution (7 sources) Osmotic Laxative Start: 12-24-2022 NuLYTELY Fuentes oral powder for reconstitution See Instructions, 1 EA, Refill(s) 0, Prior to colonoscopy., [id number], 159, cm, 12/24/22 10:00:00 EDT, Height/Length Dosing, 67.6, kg, 12/24/22 10:00:00 EDT, Weight Dosing Start Date: 12/24/22 Status: Ordered rOPINIRole 0.5 mg oral tablet (20 sources) Nonergot Dopamine Agonist Start: 08-20-2023 End: 09-26-2024 take 1 tablet by mouth once daily at bedtime Ropinirole 0.5 mg tablet Discontinued 0.5 MG PO Daily at bedtime December 27, 2023 12:00am July 28, 2024 3:23pm Sod Picosulf-Mag Ox-Citric Ac (10 sources) Start: 03-01-2024 End: 03-11-2024 take 1 [...] mg (11)- 1 mg (42) tablets,dose pack (4 sources) Start: 12-30-2023 End: 03-11-2024 Varenicline Tartrate 0.5 mg (11)- 1 mg (42) tablets,dose pack Discontinued TAB PO December 30, 2023 12:00am March 11, 2024 8:23am Start: 12-30-2023 End: 03-11-2024 Varenicline Tartrate 0.5 mg (11)- 1 mg (42) tablets,dose pack Discontinued TAB PO December 29, 2023 11:00pm March 11, 2024 7:23am zolpidem tartrate 10 mg oral tablet (20 sources) gamma-Aminobutyric Acid-ergic Agonist Start: 12-14-2023 End: 08-02-2024 take 1 tablet by mouth once daily at bedtime as needed Zolpidem 10 mg tablet Discontinued 10 MG PO Daily at bedtime as needed for insomnia December 27, 2023 12:00am July 28, 2024 3:23pm Problems Active Problems Problem Classification Problem Date Documented Da te Episodic/Chronic Acute cerebrovascular disease (8 sources) Cerebrovascular accident; 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: [Cerebral infarction, unspecified] Onset: 4 10-27-2024 Chronic Anxiety disorders (6 sources) Anxiety; 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: [Anxiety disorder, unspecified] Onset: 5 10-28-2024 Chronic Aortic; peripheral; and visceral artery aneurysms (20 sources) Aneurysm of infrarenal abdominal aorta ; 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: [Infrarenal abdominal aortic aneurysm, without rupture] Onset: 3 07-09-2023 Chronic Cancer of bronchus; lung (20 sources) Non-small cell lung cancer; 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: [Malignant neoplasm of unspecified part of unspecified bronchus or lung] Onset: 5 07-27-2024 Chronic Cancer of colon (20 sources) Carcinoma in situ of ascending colon; 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: [Carcinoma in situ of colon] Onset: 4 05-10-2024 Chronic Chronic obstructive pulmonary disease and bronchiectasis (20 sources) Centrilobular emphysema; 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: [Moderate chronic obstructive pulmonary disease] Onset: 3 08-20-2023 Chronic Diabetes mellitus without complication (6 sources) Prediabetes; 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: [Prediabetes] Onset: 5 10-06-2024 Episodic Diseases of mouth; excluding dental (6 sources) Mass of right parotid gland; 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: [Other diseases of salivary glands] Onset: 5 10-27-2024 Episodic Disorders of lipid metabolism (20 sources) Hyperlipidemia; 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: [Hyperlipidemia, unspecified] Onset: 2 06-09-2022 Chronic Epilepsy; convulsions (2 sources) Seizure related finding; 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: [Unspecified convulsions] Onset: 4 06-15-2024 Episodic Esophageal disorders (20 sources) Gastroesophageal reflux disease without esophagitis; 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: [Gastro-esophageal reflux disease without esophagitis] Onset: 3 Resolved: 5 Chronic Essential hypertension (20 sources) Hypertensive disorder; 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: [Essential (primary) hypertension] Onset: 3 06-09-2022 Chronic Genitourinary symptoms and ill-defined conditions (20 sources) Mixed incontinence; 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: [Incontinence] Onset: 2 Chronic Genitourinary symptoms and ill-defined conditions (20 sources) H/O: urinary disease; 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: [Personal history of other diseases of urinary system] Onset: 2 Resolved: 5 Episodic Menopausal disorders (1 source) Postmenopausal atrophic vaginitis; 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: [POSTMENOPAUSAL ATROPHIC VAGINITIS] Onset: 3 Chronic Miscellaneous mental health disorders (3 sources) Psychophysiologic insomnia; 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: [Psychophysiologic insomnia] 08-02-2024 Chronic Nonspecific chest pain (3 sources) Chest pain, unspecified; 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: [CHEST PAIN UNSPECIFIED] Onset: 3 Episodic Occlusion or stenosis of precerebral arteries (5 sources) Left carotid artery stenosis; 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: [Occlusion and stenosis of left carotid artery] Chronic Other aftercare (1 source) Other intermediate designer (current) drug therapy; 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: [OTH DETENTION CURRENT DRUG THERAPY] Onset: 3 Episodic Other aftercare (1 source) intermediate designer (current) use of aspirin; 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: [DETENTION CURRENT USE OF ASPIRIN] Onset: 3 Episodic Other aftercare (6 sources) Long-term current use of inhaled steroid; 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: [intermediate designer (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 steroids] Onset: 5 10-27-2024 Episodic Other and ill-defined heart disease (14 sources) Heart disease; 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: [Heart disease, unspecified] Onset: 4 06-09-2022 Chronic Other and unspecified benign neoplasm (2 sources) Polyp of colon; 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: [Polyp of colon] Onset: 4 Episodic Other and unspecified benign neoplasm (4 sources) Adenomatous polyp of colon ; 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: [Benign neoplasm of colon, unspecified] 05-12-2024 Episodic Other circulatory disease (1 source) Personal history of transient ischemic attack (TIA), and cerebral infarction without residual deficits; 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: [PERS HX TIA AND CI NO RESID DEFICIT] Onset: 3 Episodic Other circulatory disease (13 sources) Low blood pressure; 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: [Hypotension, unspecified] 12-27-2023 Episodic Other circulatory disease (4 sources) History of hypotension; 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: [Personal history of [...] involving cognitive functions and awareness] 08-02-2024 Episodic Residual codes; unclassified (6 sources) Family history of gene mutation; 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: [Family history of diseases of the blood and blood-forming organs and certain disorders involving the immune mechanism] Onset: 5 10-06-2024 Episodic Substance-related disorders (20 sources) Nicotine dependence, cigarettes, uncomplicated; 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: [Smoker] Onset: 3 Chronic Unclassified (1 source) Abdominal aortic aneurysm, without rupture, unspecified; 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: [Abdominal aortic aneurysm, without rupture, unspecified] Onset: 4 Past or Other Problems Problem Classification Problem Date Documented Date Episodic/Chronic Abdominal pain (20 sources) Unspecified abdominal pain; 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: [Upper abdominal pain] Onset: 11-13-2022 Episodic Malaise and fatigue (1 source) Weakness; [...] Onset: 05-11-2022 08-11-2022 Episodic Other circulatory disease (20 sources) History of cerebrovascular accident; 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: [Personal history of transient ischemic attack (TIA), and cerebral infarction without residual deficits] Onset: 07-09-2023 Resolved: 10-27-2024 07-09-2023 Episodic Other lower respiratory disease (20 sources) Lung mass; 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: [Other nonspecific abnormal finding of lung field] Onset: 01-04-2024 12-27-2023 Episodic Other screening for suspected conditions (not mental disorders or infectious disease) (20 sources) Encounter for screening for malignant neoplasm of respiratory organs; 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: [Encounter for screening mammogram for malignant neoplasm of breast] Onset: 07-09-2022 Episodic Residual codes; unclassified (6 sources) Tobacco user; 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: [Tobacco use] Onset: 10-27-2024 Resolved: 10-27-2024 10-27-2024 Episodic Syncope (20 sources) Syncope and collapse; 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: [Syncope and collapse] Onset: 01-04-2024 01-04-2024 Episodic Unclassified (1 source) Abdominal aortic aneurysm (AAA) without rupture, unspecified part I71.40 Unclassified (20 sources) Onset: 12-08-2023 12-08-2023 Results Test Name Value Interpretation Reference Range Facility Urine Cultureon 10-04-2024 Bacteria identified Cx Nom (U) ORGANISM: Klebsiella pneumoniae (O:KLEPNE) [place] Count >100,000 Aerobic BAILEE Charge (NMIC56) SUSCEPTIBILITY [...] <4 Tigecycline S <2 Tobramycin S <2 Trimethoprim/Sulfamethoxa zole S <0.5 S = SUSCEPTIBLE I = [...] RESISTANT TO ALL B-LACTAM DRUGS. PERFORMED BY: [facility] [address] [place] [address] PATHOLOGIST SOCIAL MEDIA ANALYST DIANA MASSEY M.D. Normal [facility] Comment on above: Performed By: #### C UU ####[facility] [id number] [place] [address] [facility] Urine cultureOrdered By: Amanda Cordero on 10-04-2024 Bacteria identified Cx Nom (U) Abnormal [facility] HISTOLOGY - TISSUE EXAMon LAB AP CASE REPORT Normal [facility] Comment on above: Result Comment: Surg ical Pathology Case: [id number] Authorizing Provider: Florinda Richard MD Collected: 06/21/2024 1421 Ordering Location: [facility] Received: 06/21/2024 1505 [facility] Endoscopy Pathologist: Alexandrea Bonds MD Specimens: A) - Large Intestine, Right/Ascending Colon, polyp across to tatto site B) - Large Intestine, Right/Ascending Colon, polyp adjcent to tatto site C) - Large Intestine, Right/Ascending Colon, polypectomy site bx r/o adenoma D) - Large Intestine, Hepatic Flexure Performed By: #### L [id number] #### [facility] ([facility]) [address] [place] [address] LAB AP CLINICAL INFORMATION Order Diagnoses Normal [facility] Comment on above: Result Comment: K63. 5 - Polyp of ascending colon, unspecified type [ICD-10-CM] K63.89 - Colonic mass [ICD-10-CM] Performed By: #### L [id number] #### [facility] ([facility]) [address] [place] [address] LAB AP GROSS DESCRIPTION Normal [facility] Comment on above: Result Comment: A. L arge Intestine, Right/Ascending Colon. The specimen is received in formalin in a container labeled Bhupendra Rubi and polyp across to tatto site. It [...] in formalin in a container labeled Bhupendra Kasie Stephen and unspecified. It consists of 6 chandler-so, irregular, focally erythematous soft tissue fragments, 0.1 to 0.6 cm in greatest dimension. The specimen is submitted entirely in 1 cassette. Carrie Abdalla, student fellow Performed By: #### L [id number] #### [facility] ([facility]) [address] [place] [address] LAB AP MICROSCOPIC DESCRIPTION Microscopic examination performed. [facility] Comment on above: Performed By: #### L [id number] #### [facility] ([facility]) [address] [place] [address] LAB AP REPORT FINAL DIAGNOSIS NARRATIVE [facility] Comment on above: Result Comment: A. C olon, ascending polyp across tattoo site, biopsy: - Tubular adenoma B. Colon, ascending polyp adjacent to tattoo site, biopsy: - Tubular adenoma C. Colon, ascending polypectomy site, biopsy: - Benign colonic mucosa - No evidence of dysplasia D. Colon, hepatic flexure polyp, biopsy: - Hyperplastic polyp Performed By: #### L [id number] #### [facility] ([facility]) [address] [place] [address] HPon 06-21-2024 History Of Present Illness Bhupendra Rubi is [...] I pers (more content not included)... Normal [facility] POCT GLUCOSE METER UNSOLICIT ED RESULTSon 06-21-2024 Glucose [Mass/Vol] 106 mg/dL High 70-105 [facility] Comment on above: Order Comment: Waive d Testing in the ED is performed under the ED CLIA certificate #[id number]. Result Comment: jhag eman Performed By: #### L [id number] #### [facility] ([facility]) [address] [place] [address] Telephoneon 06-15-2024 Telephone [id number] Maximiliano Rubi 1950 F Date Provider Department Center 06/15/2024 83959-HOSIVABHBRAD LACY DCC ONC DCC Family History Problem Relation Age of Onset Lung cancer Mother Other Sister Family Status - Relation Status Age at Mother Sister Reason for Visit and Comments: Appointment [375] - Tried calling patient to get scheduled for F/U appt 06/16, left a voicemail twice. CJ [facility] Prep for Procedureon 024 Prep for Procedure [id number] Maximiliano Rubi 1950 Provider Department Center 06/13/2024 375FLORINDA BLANCAS [facility] [place] Family History Problem Relation Age of Onset Lung cancer Mother Other Sister Family Status - Relation Status Age at Mother Sister [facility] Orders Onlyon 05-27-2024 Orders Only [id number] Maximiliano Rubi 1950 Date Provider Department Center 05/27/2024 MARTELL DALLAS [facility] [place] Family History Problem Relation Age of Onset Lung cancer Mother Other Sister Family Status - Relation Status Age at Mother Sister [facility] SURGICAL PATHOLOGY REFER ENCE LAB CONSULTon 05-26-2024 [facility] CASE REPORT [facility] Comment on above: Surgical Pathology R eport Case: [id number] Authorizing Provider: Javier Villanueva Collected: 05/24/2024 11:27 AM Ordering Location: [facility] Received: 05/24/2024 11:26 AM [facility] Laboratory Pathologist: Leroy Zayas MD, PhD Specimen: Slide(s), 16 SLIDES [id number] [facility] CLINICAL HISTORY CONSULT REQUESTED [facility] DIAGNOSIS COMMENT [facility] Comment on above: Thank you for allowi ng us the opportunity to review this case in consultation representing the colon polyp biopsies from the 73-year-old female. Per provided letter and patient note, the occupational health physiotherapist felt the polyp was completely removed. Histologic [...] to contact the GI consultation service at [phone] with questions or if additional follow-up information becomes available. This case was reviewed in conjunction with the GI pathology fellow, Sangita Rai M.D. F FINAL DIAGNOSIS [facility] Comment on above: A. 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 - See comment. MEDICAL CENTER FINAL PERFORMING LAB [facility] Comment on above: Diagnostic interpret ation performed at: [facility], [address] [place] [address], Desk [address]# [id number] Buildings [employer]ounds Supervisor: Henri Mireles MD Specimen Type: FORMALIN-FIXED PARAFFIN-EMBEDDED TISSUE SPECIMEN Ordering Facility: AP External Submitter Address: , , Original Ordering Provider: JAVIER SURYA VILLANUEVA [facility] 36on 05-18-2024 36 Attempted to contact patient to schedule a colonoscopy with EMR. Patient is at [facility] already today for an EBUS, and tells me she is having the colonoscopy today, attempted to explain to her the difference in the procedures but she ended up hanging up on me. Will try her tomorrow. Normal [facility] Anesthesiaon 05-18-2024 Anesthesia [id number] Maximiliano Rubi M 1950 F Date Provider Department Center 05/18/202479033-SBIYPWEF-MHJYG, TAYL*[facility] OR [facility] C Family History Problem Relation Age of Onset Lung cancer Mother Other Sister Family Status - Relation Status Age at Mother Sister [facility] HISTOLOGY - TISSUE EXAMon LAB AP ADDENDUM [address] [facility] Comment on above: Result Comment: This case ([id number]) was sent to [facility] for PD-L1 22C3 IHC with tumor proportion score (TPS) interpretation and read by Rosie Azevedo MD. The result reads as follows: Tumor Proportion Score: 91-100% Adequacy of specimen: Adequate Addendum electronically signed by Javier Mensah MD on 06/02/2024 at 10:28 AM Performed By: #### L [id number] #### [facility] ([facility]) [address] [place] [address] LAB AP ASR DISCLAIMER The interpretation of [...] the Clinical Laboratory Improvement Amendments of 1998. [facility] Comment on above: Performed By: #### L [id number] #### [facility] ([facility]) [address] [place] [address] LAB AP CASE REPORT Normal [facility] Comment on above: Result Comment: Surg ical Pathology Case: [id number] Authorizing Provider: Diana Warren MD Collected: 05/18/2024 1331 Ordering Location: [facility] Main Operating Room Received: 05/18/2024 1432 Pathologist: Javier Mensah MD Specimen: Lung, Left Upper Lobe, Left Upper Lung Mass bx r/o Cancer Performed By: #### L [id number] #### [facility] ([facility]) [address] [place] [address] LAB AP CLINICAL INFORMATION Order Diagnoses [facility] Comment on above: Result Comment: R91. 1 - Lung nodule [ICD-10-CM] Performed By: #### L [id number] #### [facility] ([facility]) [address] [place] [address] LAB AP DIAGNOSIS COMMENT [facility] Comment on above: Result Comment: Immu [...] if clinically indicated. Performed By: #### L [id number] #### [facility] ([facility]) [address] [place] [address] LAB AP GROSS DESCRIPTION [facility] Comment on above: Result Comment: A. L chantel, Left Upper Lobe. Received in formalin labeled with the patient's name Bhupendra Rubi and left upper lung mass BX rule out cancer, is a 2.0 x 0.3 x 0.1 cm aggregate of chandler-pink, feathery soft tissue fragments. The specimen is filtered and submitted in toto in 1 cassette. Saniya Carson, Pathologists' Farm Owner Operator Student Performed By: #### L [id number] #### [facility] ([facility]) [address] [place] [address] LAB AP MICROSCOPIC DESCRIPTION Microscopic examination performed. [facility] Comment on above: Performed By: #### L [id number] #### [facility] (BEAK[facility]) [address] [place] [address] LAB AP REPORT FINAL DIAGNOSIS NARRATIVE [facility] Comment on above: Result Comment: Phillip golden, left upper lobe, biopsy: -Adenocarcinoma. Preliminary result electronically signed by Javier Mensah MD on 05/20/2024 at 12:17 PM Performed By: #### L [id number] #### [facility] ([facility]) [address] [place] [address] HPon 05-18-2024 HP ----- ----- Attestation signed by Diana Warren MD at 05/18/2024 11:17 AM Re-explained the procedure to the patient along with the associated risk of pneumothorax, bleeding, hypoxia, and respiratory failure. Patient is agreeable and will proceed with the scheduled robotic bronchoscopy, TBBx, and Ebus TBNA Diana Warren MD Interventional Pulmonary Medicine Pulmonary and Critical Care Medicine [facility] Physicians ----- History Reviewed reviewed. The patient [...] no edema. Skin: Warm and dry. Normal [facility] NON-TAN ROOM SUPERVISOR CYTOLOGY - CELLULAR EXAMon 05-18-2024 LAB AP [facility] Comment on above: Result Comment: Non- gynecologic Cytology Case: [id number] Authorizing Provider: Diana Warren MD Collected: 05/18/2024 1309 Ordering Location: [facility] Main Operating Room Received: 05/19/2024 1251 Pathologist: Javier Mensah MD Specimens: A) - Lung, Left Upper Lobe B) - Lung, Left Upper Lobe C) - Lymph Node Station 7, Lymph Node Station 7 FNA D) - Lymph Node Station 4R, Lymph Node Station 4R FNA Performed By: #### L [id number] ####[facility] ([facility]ER)[address] [place] [address] LAB AP CLINICAL INFORMATION [facility] Comment on above: Result Comment: PET avid left upper lobe lung nodule that has increased in size (2.2 cm), 40 pack-year smoking history Performed By: #### L [id number] ####[facility] ([facility]AKER)[address] [place] [address] LAB AP DIAGNOSIS COMMENT [facility] Comment on above: Result Comment: Ther e is a moderate amount of tumor cells present in the cell block of part A and scant tumor in the cell block of part B for additional studies, if clinically indicated. See also concurrent biopsy, [id number]. Performed By: #### L [id number] ####[facility] (BEAKER)[address] [place] [address] LAB AP GROSS DESCRIPTION [facility] Comment on above: Result Comment: A. 2 air-dried slides, 2 alcohol-fixed slides, 30 mL CytoLyt with clear, red fluid and clots B. 15 mL cloudy, red fluid C. 30 mL CytoLyt with clear, pink fluid D. 30 mL CytoLyt with clear, pink fluid and white flecks Performed By: #### L [id number] ####[facility] ([facility]AKER)[address] [place] [address] LAB AP INTRAOPERATIVE CONSULTATION [facility] Comment on above: Result [...] material submitted.* Performed By: #### L [id number] ####[facility] ([facility]ER)[address] [place] [address] LAB AP MICROSCOPIC DESCRIPTION [facility] Comment on above: Result [...] and blood. Performed By: #### L [id number] ####[facility] (BEAKER)[address] [place] [address] LAB AP REPORT FINAL DIAGNOSIS NARRATIVE [facility] Comment on above: Result Comment: A. L chantel, Left Upper Lobe, Ion-guided fine needle aspiration: - Non-small cell carcinoma. See concurrent surgical biopsy [id number] for results of immunohistochemistry. B. Lung, Left Upper Lobe, bronchoalveolar lavage: - Non-small cell carcinoma C. Lymph Node, Station 7, EBUS-guided fine needle aspiration: - Negative for metastatic malignancy. - Cellular evidence of a lymph node. D. Lymph Node, Station 4R, EBUS-guided fine needle aspiration: - Negative for metastatic malignancy. - Cellular evidence of a lymph node. Performed By: #### L [id number] ####[facility] ([facility]AKER)[address] [place] [address] NURSNOTEon 05-18-[address] Warren viewed c hest xray at bedside and gave abstract writer verbal permission to discharge patient home. RN reviewed discharge instructions with patient and significant other at bedside. No questions or concerns expressed at this time. Normal [facility] NURSNOTE X ray is at bedside Normal [facility] NURSNOTE STAT Portable Chest X-Ray in PACU. Follow up at [facility] with Carrol Kunz, for lab results in 2-4 weeks. May resume a Regular Diet and home medications if Chest X-Ray is normal. Normal [facility] NURSNOTE Bronch/EBUS Findings : Left Upper Lung Mass Normal [facility] POCT GLUCOSE METER UNSOLICIT ED RESULTSon 05-18-2024 Glucose [Mass/Vol] 96 mg/dL Normal 70-105 [facility] Comment on above: Order Comment: Waive d Testing in the ED is performed under the ED CLIA certificate #[id number]. Result Comment: aepp ink Performed By: #### L [id number] ####[facility] ([facility])[address] [place] [address] Telephoneon 05-18-2024 Telephone [id number] Maximiliano Rubi 1950 F Date Provider Department Center 05/18/2024 396MARTELL CHILDS [facility] JADYN Family History Problem Relation Age of Onset Lung cancer Mother Other Sister Family Status - Relation Status Age at Mother Sister [facility] Prep for Procedureon 024 Prep for Procedure [id number] Maximiliano Rubi M 1950 F Date Provider Department Center 05/12/2024 383-DIANA WARREN [facility] JADYN Family History Problem Relation Age of Onset Lung cancer Mother Other Sister Family Status - Relation Status Age at Mother Sister Normal [facility] CT CHEST WO IV CONTRASTon CT [...] Menon MD. Not Vldtd Invalid Interpretation Code [facility] HPon 04-28-2024 ----- ----- Attestation signed by Diana Warren [...] Age: 73 y.o. : 1950 Account No.: [id number] Referring physician: Dr. Lundberg Chief complaint: Lung [...] was initiated by the patient and conducted [id number]-[id number] with use of audio-only real time telephone [...] Physical examination (more content not included)... Normal 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 CT abdomen pelvis w conon CT abdomen pelvis w con [facility] Main Volin [address] [place] [address] CT Scan Report Signed Patient: Bhupendra Rubi MR#: [id number] : 1950 Acct:[id number] Age/Sex: 73 / F ADM Date: 04/21/24 Loc: CT Room: Type: [facility] Attending Dr: Mikhail Moon MD Copies to: Mikhail Moon MD Ordering Provider: Mikhail Moon MD Date of Service: 04/21/24 CT/CT abdomen pelvis w con: D12.6 - Benign neoplasm of colon, unspecified ([id number]) CT/CT chest w con: D12.6 - Benign [...] Jalloh Jr., D.OCathy04/21/2024 4:03 PM Dictation Location: [place] [address] Transcribed By: [facility] 04/21/24 1603 Dictated By: Napoleon Jalloh Jr, DO 04/21/24 1556 Signed By: 04/21/24 1603 Normal [facility] Creatinineon 04-21-2024 GFR/1.73 sq M.predicted MDRD (S/P/Bld) [Vol rate/Area] mL/min/{1.73_m2} Normal [facility] Comment on above: Order Comment: STAT FOR CT Result Comment: PERF ORMED BY: [facility] [address] [place] [address] PATHOLOGIST SOCIAL MEDIA ANALYST JENNIFER ALANIZ M.D. Performed By: #### B UN, CREAT ####[facility] [place] [id number] [facility] Creatinine [Mass/volume] in Serum or PlasmaOrdered By: Mikhail Moon on 04-21-2024 Creatinine [Mass/Vol] 0.91 mg/dL Normal 0.60-1.20 [facility] Comment on above: Order Comment: STAT FOR CT Performed By: #### B UN, CREAT ####[facility] Whs[address] No Panel InformationOrdered By: Imad Asaad on 04-21-2024 Estimated GFR (CKD-EPI) > 60.0 mL/Min [facility] Creatinine Clearance (Chem N/A [facility] Serum or plasma carcinoembry onic antigen measurement (mass/volume)Ordered By: bethanie Moon on 04-21-2024 Carcinoembryonic Ag [Mass/Vol] 10.0 ng/mL High 0.0-3.0 [facility] Comment on above: Serial tumor marker results determined by assays using different manufacturers or methods may not be comparable.[facility] correctional program officer and method:[employer] DXI, 2 SITE IMMUNOENZYMATIC SANDWICH ASSAY. Urea nitrogen [Mass/volume] in Serum or PlasmaOrdered By: bethanie Moon on 04-21-2024 Urea nitrogen [Mass/Vol] 18 mg/dL Normal 7-25 [facility] Comment on above: Order Comment: STAT FOR CT Performed By: #### B UN, CREAT ####[facility] Iam[address] No Panel InformationOrdered By: Mikhail Moon on 03-25-2024 Miscellaneous Pathology Test See comment [facility] Comment on above: See report. Scanned copy available in EMR. Pathology Request for Lab Co rpon 03-25-2024 Pathology Request for Lab Crys Normal [facility] Comment on above: Order Comment: PATHO LOGY GI SPECIMEN Result Comment: See report. Scanned copy available in EMR. PERFORMED BY: [address] [place] [address] PATHOLOGIST SOCIAL MEDIA ANALYST JENNIFER ALANIZ M.D. Performed By: #### P ATH TO [facility] #### [facility] [address] [place] [address] [facility] HISTOPLASMA GAL'BARB AG UR on 03-17-2024 HISTOPLASMA GAL'BARB AG UR Negative <0.2 ng/mL [facility] Comment on above: Performed at: [address] [id number] Dynamometer Mechanic: Erick Khalil MD, Phone: [phone] [facility] HCTon 03-09-2024 Hematocrit (Bld) [Volume fraction] 38.5 % 36.0 - 48.0 % [facility] Hemoglobin (Bld) [Mass/Vol] 12.3 g/dL 12.0 - 16.0 g/dL [facility] Perez 03-09-2024 L Specimen: [id number] Received: 03/10/24 Status: TRINIDAD Araiza Num: [id number] Spec Type: Surgical Subm Dr: Leigh Thompson DO Tissues: A Lung CT-Guided Biopsy (BAL HÉCTOR) Procedures: HE/2, Gross/Micro L4 Age/ Patient Sex Location Account Attending Physician Bhupendra Rubi 73/F LABELL [id number] Leigh Thompson DO SPEC NUM: [id number] RECD: 03/10/24 STATUS: TRINIDAD ARAIZA NUM: [id number] LORA: 03/09/[address]: Leigh Thompson DO ENTERED: 03/10/241350 [facility] DR: Griselda,Praveen SPEC TYPE: Surgical DEPT: JADE GUERRA ENTERED BY: [id number] RECV BY: [id number] ORDERED: HE/2, Gross/Micro L4 ORDERED: HE/2, Gross/Micro [...] are performed supporting the above interpretation Specimen: [id number] Received: 03/10/24 Status: TRINIDAD Araiza Num: [id number] Spec Type: Surgical Subm Dr: Leigh Thompson DO Tissues: A Lung CT-Guided Biopsy (BAL HÉCTOR) Procedures: HE/2, Gross/Micro L4 Patient: Bhupendra Rubi [id number] (Continued) Specimen: [id number] Received: 03/10/24 (Continued) Signed (signature on file) Cha Gomez MD 03/18/24 0936 Specimen: [id number] Received: 03/10/24 Status: TRINIDAD Brii Num: [id number] Spec Type: Surgical Subm Dr: Leigh Thompson DO Tissues: A Lung CT-Guided Biopsy (BAL HÉCTOR) Procedures: HE/2, Gross/Micro L4 Patient: Bhupendra Rubi [id number] (Continued) Specimen: [id number] Received: 03/10/24 (Continued) CPT Codes 38075 Specimen: [id number] Received: 03/10/24 Status: TRINIDAD Araiza Num: [id number] Spec Type: Surgical Subm Dr: Leigh Thompson DO Tissues: A Lung CT-Guided Biopsy (BAL HÉCTOR) Procedures: HE/2, Gross/Micro L4 Patient: Bhupendra Rubi [id number] (Continued) Signed (signature on file) Chin-Mason Gomez MD 03/18/24 0936 Normal [facility] L Specimen: [id number] Received: 03/15/24 Status: TRINIDAD Brii Num: [id number] Spec Type: Cytology Subm Dr: Leigh Thompson DO Tissues: [facility] Procedures: HE/2, Gross/Micro L4, Cyto Prepstain, PAPSTN Age/ Patient Sex Location Account Attending Physician Bhupendra Rubi 73/F LABELL [id number] Leigh Thompson DO SPEC NUM: [id number] RECD: 03/15/24 STATUS: TRINIDAD ROSENBAUMReed NUM: [id number] LORA: 03/09/24-[address]: Leigh Thompson DO ENTERED: 03/15/[address]: Griselda,Lab SPEC TYPE: Cytology DEPT: JADE HUMPHREY ENTERED BY: [id number] RECV BY: [id number] ORDERED: HE/2, Gross/Micro L4, Cyto Prepstain, PAPSTN ORDERED: HE/2, Gross/Micro L4, Cyto Prepstain, PAPSTN Pathological Diagnosis Left lung upper lobe cytology: Negative for malignant cells. Gross Description Received fresh is 13 ml clear colorless unfixed fluid for cytology said to have been obtained as left upper lobe for cytology. ThinPrep and cell block preparations are prepared for microscopic examination.(LA/sd) CPT Codes 27122 Specimen: [id number] Received: 03/15/24 Status: TRINIDAD Araiza Num: [id number] Spec Type: Cytology Subm Dr: Leigh Thompson DO Tissues: A BRONWASH (LEFT UPPER LOBE) Procedures: HE/2, Gross/Micro L4, Cyto Prepstain, PAPSTN Patient: Bhupendra Rubi [id number] (Continued) Signed (signature on file) Diana Massey MD 03/16/24 1430 Normal [facility] ALL CBC WITH AUTO DIFFon BASOPHILS ABSOLUTE AUTO 0.1 N [facility] Basophils/100 WBC (Bld) 0.9 % 0.2 - 2.0 % [facility] Eosinophils/100 WBC (Bld) 1.1 % 0.9 - 7.0 % [facility] Erythrocyte distribution width (RBC) [Ratio] 14.9 % 11.0 - 15.0 % [facility] Hematocrit (Bld) [Volume fraction] 43.8 % 36.0 - 48.0 % [facility] Hemoglobin (Bld) [Mass/Vol] 14.2 g/dL 12.0 - 16.0 g/dL [facility] IMMATURE GRANULOCYTES ABS AUTO 0.03 [facility] Immature granulocytes/100 WBC (Bld) 0.3 % 0.0 - 0.5 % [facility] Interpretation and review of laboratory results Abnormal [facility] LYMPHOCYTES ABSOLUTE AUTO 2.6 [facility] Lymphocytes/100 WBC (Bld) 23.0 % 20.5 - 60.0 % [facility] MCH (RBC) [Entitic mass] 28.8 pg 26. 7 - 34.0 pg [facility] MCHC (RBC) [Mass/Vol] 32.4 g/dL 29.9 - 35.2 g/dL [facility] MCV (RBC) [Entitic vol] 88.8 fL 81.0 - 99.0 fL [facility] MONOCYTES ABSOLUTE AUTO 1.0 High N [facility] Monocytes/100 WBC (Bld) 8.5 % 1.7 - 12.0 % [facility] NEUTROPHILS ABSOLUTE AUTO 7.5 High [facility] Neutrophils/100 WBC (Bld) 66.2 % 43.0 - 75.0 % [facility] Platelet mean volume (Bld) [Entitic vol] 9.9 fL 9.5 - 13.5 fL [facility] TBH EO # 0.1 [facility] PLT [address] [facility] TB RBC 4.93 [facility] TB WBC 11.2 High [facility] [facility] US aortaon 12-30-2023 US aorta [facility] [address] [place] [address] Ultrasound Report Signed Patient: Bhupendra Rubi MR#: [id number] 306 : 1950 Acct:[id number] Age/Sex: 73 / F ADM Date: 12/30/23 Loc: [facility] Room: Type: [facility] Attending Dr: Cherelle Bautista 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 Activated partial thrombopla stin time (aPTT) in platelet poor plasma by coagulation aOrdered By: Bernardino Bhakta on 12-27-2023 aPTT Coag (PPP) [Time] 24.6 s Low 25.1-36.5 [facility] Comment on above: A hematocrit value g reater than 55% may lead to inaccurate results in coagulation testing. Patients having hematocrit values >55% require a special collection tube for coagulation studies. Please contact the laboratory at [phone] for redraw instructions. Alanine aminotransferase [En zymatic activity/volume] in Serum or PlasmaOrdered By: Bernardino Bhakta on 12-27-2023 ALT [Catalytic activity/Vol] 10 U/L Normal 7-52 [facility] Comment on above: Performed By: #### H S TROP, CK, CMP, CBC #### [facility] [address] [place] [id number] [facility] Albumin [Mass/volume] in Ser um or Plasma by Bromocresol green (BCG) dye binding methoOrdered By: Bernardino Bhakta on 12-27-2023 Albumin BCG dye [Mass/Vol] 4.0 g/dL 3.5-5.7 [facility] Alkaline phosphatase [Enzyma tic activity/volume] in Serum or PlasmaOrdered By: Bernardino Bhakta on 12-27-2023 ALP [Catalytic activity/Vol] 105 U/L High 34-104 [facility] Comment on above: Performed By: #### H S TROP, CK, CMP, CBC #### [facility] [address] [place] [id number] [facility] Arterial Blood Gason 024 ABG Base Excess -2.4 mmol/L Normal -3.0-3.0 [facility] Comment on above: Performed By: #### A BG ####Point of Care testing, ABG Frac Inspired O2 32 % Normal [facility] Comment on above: Performed By: #### A BG ####Point of Care testing, ABG Liter Flow 3 Normal [facility] Comment on above: Performed By: #### A BG ####Point of Care testing, ABG Oxygen Content 7.5 mmol/L Normal 6.6-9.7 [facility] Comment on above: Performed By: #### A BG ####Point of Care testing, ABG Oxygen Saturation 95.5 % Normal 95.0-100.0 [facility] Comment on above: Performed By: #### A BG ####Point of Care testing, ABG PCO2 46.7 mm[Hg] High 35.0-45.0 [facility] Comment on above: Performed By: #### A BG ####Point of Care testing, ABG PH 7.33 Low 7.35-7.45 [facility] Comment on above: Performed By: #### A BG ####Point of Care testing, ABG PO2 84.0 mm[Hg] Normal 80.0-100.0 [facility] Comment on above: Performed By: #### A BG ####Point of Care testing, Oxygen Device Nasal Cannula Normal [facility] Comment on above: Performed By: #### A BG ####Point of Care testing, Respiratory Critical Normal [facility] Comment on above: Result Comment: Crit ical Value called on: 12/27/2023 at 11:36 PERFORMED BY: [facility] [address] [place] [address] PATHOLOGIST SOCIAL MEDIA ANALYST JENNIFER ALANIZ M.D. Performed By: #### A BG ####Point of Care testing, VBG Draw Site Left Radial Normal [facility] Comment on above: Performed By: #### A BG ####Point of Care testing, Arterial Blood GasOrdered By : Bernardino Bhakta on 12-27-2023 CO2 [Moles/Vol] 25.3 mmol/L Normal 23.0-27.0 [facility] Comment on above: Performed By: #### A BG ####Point of Care testing, HCO3 (Bld) [Moles/Vol] 23.8 mmol/L Normal 23.0-29.0 [facility] Comment on above: Performed By: #### A BG ####Point of Care testing, Aspartate aminotransferase [ Enzymatic activity/volume] in Serum or PlasmaOrdered By: Bernardino Bhakta on 12-27-2023 AST [Catalytic activity/Vol] 10 U/L Low 13-39 [facility] Comment on above: Performed By: #### H S TROP, CK, CMP, CBC #### [address] Automated basophil %Ordered By: Bernardino Bhakta on 12-27-2023 Basophils/100 WBC (Bld) 0.6 % Normal . [facility] Comment on above: Performed By: #### H S TROP, CK, CMP, CBC #### [address] Automated basophil countOrde red By: Bernardino Bhakta on 12-27-2023 Basophils (Bld) [#/Vol] 0.1 10*3/uL Normal 0.0-0.2 [facility] Comment on above: Result Comment: PERF ORMED BY: [place] [address] PATHOLOGIST SOCIAL MEDIA ANALYST JENNIFER ALANIZ M.D. Performed By: #### H S TROP, CK, CMP, CBC #### [address] Automated blood monocyte cou ntOrdered By: Bernardino Bhakta on 12-27-2023 Monocytes (Bld) [#/Vol] 1.3 10*3/uL High 0.0-0.8 [facility] Comment on above: Performed By: #### H S TROP, CK, CMP, CBC #### [address] Automated eosinophil %Ordere d By: Benrardino Bhakta on 12-27-2023 Eosinophils/100 WBC (Bld) 0.6 % Normal . [facility] Comment on above: Performed By: #### H S TROP, CK, CMP, CBC #### [address] Automated eosinophil countOr dered By: Bernardino Bhakta on 12-27-2023 Eosinophils (Bld) [#/Vol] 0.1 10*3/uL Normal 0.0-0.45 [facility] Comment on above: Performed By: #### H S TROP, CK, CMP, CBC #### [facility] [address] Automated monocyte %Ordered By: Bernardino Bhakta on 12-27-2023 Monocytes/100 WBC (Bld) 9.8 % Normal . [facility] Comment on above: Performed By: #### H S TROP, CK, CMP, CBC #### [facility] [address] Automated neutrophil %Ordere d By: Bernardino Bhakta on 12-27-2023 Neutrophils/100 WBC (Bld) 61.6 % Normal . [facility] Comment on above: Performed By: #### H S TROP, CK, CMP, CBC #### [facility] [address] [place] [address] BNP ser/plasOrdered By: Urbano Bhakta on 12-27-2023 Natriuretic peptide B (Bld) [Mass/Vol] 32.0 pg/mL Normal 5-100 [facility] Comment on above: Result Comment: PERF ORMED BY: [place] [address] PATHOLOGIST SOCIAL MEDIA ANALYST JENNIFER ALANIZ M.D. Performed By: #### B ASSISTANT HOUSEKEEPING MANAGER #### [address] Bacteria [Presence] in Urine sediment by Light microscopyOrdered By: Bernardino Bhakta on 12-27-2023 Bacteria LM Ql (Urine sed) 1+ [HPF] High None Seen [facility] Comment on above: Microscopic results may be affected due to low specimen volume. Bacterial blood cultureOrder ed By: Bernardino Bhakta on 12-27-2023 Bacteria identified Cx Nom (Bld) NO GROWTH 5 DAYS [facility] Bacteria identified Cx Nom (Bld) NO GROWTH 5 DAYS [facility] Bilirubin Test strip Ql (U)O rdered By: Bernardino Bhakta on 12-27-2023 Bilirubin Ql (U) Negative Negative [facility] Bilirubin.total [Mass/volume ] in Serum or PlasmaOrdered By: Bernardino Bhakta on 12-27-2023 Bilirubin [Mass/Vol] 0.3 mg/dL Normal 0.3-1.0 [facility] Comment on above: Performed By: #### H S TROP, CK, CMP, CBC #### [address] Blood Cultureon 12-27-2023 Bacteria identified Cx Nom (Bld) NO GROWTH 5 DAYS PERFORMED BY: [place] [address] PATHOLOGIST SOCIAL MEDIA ANALYST JENNIFER ALANIZ M.D. Normal [facility] Comment on above: Performed By: #### C EA #### [address] Bacteria identified Cx Nom (Bld) NO GROWTH 5 DAYS PERFORMED BY: [place] [address] PATHOLOGIST SOCIAL MEDIA ANALYST JENNIFER ALANIZ M.D. Normal [facility] Comment on above: Performed By: #### C EA #### [address] angio chest PE protocolon 12-27-2023 CT angio chest PE protocol [facility] Main [facility] [address] [place] [address] CT Scan Report Signed Patient: Bhupendra Rubi MR#: [id number] 306 : 1950 Acct:[id number] Age/Sex: 73 / F ADM Date: 12/27/23 Loc: ER Room: Type: [facility] Attending Dr: Copies to: Bernardino Bhakta MD [...] Adam Berger M.D.12/27/2023 12:14 PM Dictation Location: [place] [address] Transcribed By: [facility] 12/27/23 1214 Dictated By: Adam Berger DO 12/27/23 1210 Signed By: 12/27/23 1214 Normal [facility] Calcium [Mass/volume] in Ser um or PlasmaOrdered By: Bernardino Bhakta on 12-27-2023 Calcium [Mass/Vol] 9.3 mg/dL Normal 8.6-10.3 [facility] Comment on above: Performed By: #### H S TROP, CK, CMP, CBC #### [facility] [address] Carbon dioxide, total [Moles /volume] in Serum or PlasmaOrdered By: Bernardino Bhakta on 12-27-2023 CO2 [Moles/Vol] 26.9 mmol/L Normal 21.0-31.0 [facility] Comment on above: Performed By: #### H S TROP, CK, CMP, CBC #### [facility] [address] [place] [address] [place] Chloride [Moles/volume] in S [place] or PlasmaOrdered By: Bernardino Bhakta on 12-27-2023 Chloride [Moles/Vol] 104 mmol/L Normal 98-107 [facility] Comment on above: Performed By: #### H S TROP, CK, CMP, CBC #### [facility] [address] [place] [address] Color of Urine by AutoOrdere d By: Bernardino Bhakta on 12-27-2023 Color (U) Yellow Normal Yellow [facility] Comment on above: Order Comment: Name Collection Type:: Clean-Voided Midstream Performed By: #### C EA #### [address] Complete Blood Count Auto Di ffon 12-27-2023 Mean Corpuscular HGB Conc 33.0 g/dL Normal 32.0-35.0 [facility] Comment on above: Performed By: #### H S TROP, CK, CMP, CBC #### [address] Monocytes/100 WBC (Bld) 19.53 % Normal 0.00-20.00 [facility] Comment on above: Performed By: #### H S TROP, CK, CMP, CBC #### [address] NRBC% 0.1 /100{WBC} Normal 0-0.5 [facility] Comment on above: Performed By: #### H S TROP, CK, CMP, CBC #### [address] Comprehensive Metabolic Pane perez 12-27-2023 Albumin [Mass/Vol] 4.0 g/dL Normal 3.5-5.7 [facility] Comment on above: Performed By: #### H S TROP, CK, CMP, CBC #### [address] Creatinine Clr Calc Pharmacy 50.59 Normal [facility] Comment on above: Result Comment: PERF ORMED BY: [place] [address] PATHOLOGIST SOCIAL MEDIA ANALYST JENNIFER ALANIZ M.D. Performed By: #### H S TROP, CK, CMP, CBC #### [address] GFR/1.73 sq M.predicted MDRD (S/P/Bld) [Vol rate/Area] mL/min/{1.73_m2} Normal [facility] Comment on above: Performed By: #### H S TROP, CK, CMP, CBC #### [address] Creatine kinase [Enzymatic a ctivity/volume] in Serum or PlasmaOrdered By: Bernardino Bhakta on 12-27-2023 CK [Catalytic activity/Vol] 41 U/L Normal 30-223 [facility] Comment on above: Performed By: #### H S TROP, CK, CMP, CBC #### [address] Creatinine [Mass/volume] in Serum or PlasmaOrdered By: Bernardino Bhakta on 12-27-2023 Creatinine [Mass/Vol] 0.94 mg/dL Normal 0.60-1.20 [facility] Comment on above: Performed By: #### H S TROP, CK, CMP, CBC #### [address] D-Dimer High Sensitivityon 0 12-27-2023 D-Dimer High Sensitivity 480 ng/mL High 0-243 [facility] Comment on above: [...] coagulation studies. Please contact the laboratory at [phone] for redraw instructions. PERFORMED BY: [place] [address] PATHOLOGIST SOCIAL MEDIA ANALYST JENNIFER ALANIZ M.D. Performed By: #### D DIMER, LACTIC, PTT, PT ####[facility] [id number] [place] [address] [place] Dipstick and Microscopicon 0 12-27-2023 Bacteria,Urine 1+ High None Seen [facility] Comment on above: Order Comment: Name Collection Type:: Clean-Voided Midstream Result Comment: Micr oscopic results may be affected due to low specimen volume. PERFORMED BY: [facility] [address] [place] [address] PATHOLOGIST SOCIAL MEDIA ANALYST JENNIFER ALANIZ M.D. Performed By: #### C EA #### [place] [address] [place] Bilirubin,Urine Negative Normal Negative [facility] Comment on above: Order Comment: Name Collection Type:: Clean-Voided Midstream Performed By: #### C EA #### [address] Glucose Ql (U) Normal Normal Normal [facility] Comment on above: Order Comment: Name Collection Type:: Clean-Voided Midstream Performed By: #### C EA #### [place] [address] [place] Nitrite,Urine Negative Normal Negative [facility] Comment on above: Order Comment: Name Collection Type:: Clean-Voided Midstream Performed By: #### C EA #### [place] [address] [place] Occult Blood,Urine Negative Normal Negative [facility] Comment on above: Order Comment: Name Collection Type:: Clean-Voided Midstream Result Comment: PERF ORMED BY: [facility] [address] [place] [address] PATHOLOGIST SOCIAL MEDIA ANALYST JENNIFER ALANIZ M.D. Performed By: #### C EA #### [place] [address] [place] Protein,Urine Negative Normal Negative [facility] Comment on above: Order Comment: Name Collection Type:: Clean-Voided Midstream Performed By: #### C EA #### [place] [address] [place] RBC,Urine None Seen Normal 0-4 [facility] Comment on above: Order Comment: Name Collection Type:: Clean-Voided Midstream Result Comment: Micr oscopic results may be affected due to low specimen volume. Performed By: #### C EA #### [facility] [address] Specificy [place],Urine 1.043 High 1.00 1-1.03 0 [facility] Comment on above: Order Comment: Name Collection Type:: Clean-Voided Midstream Performed By: #### C EA #### [place] [address] [place] Squamous Epithelial Cell,Urine 5-9 High 0-2 [facility] Comment on above: Order Comment: Name Collection Type:: Clean-Voided Midstream Result Comment: Micr oscopic results may be affected due to low specimen volume. Performed By: #### C EA #### [address] Urobilinogen,Urine Normal Normal Normal [facility] Comment on above: Order Comment: Name Collection Type:: Clean-Voided Midstream Performed By: #### C EA #### [place] [address] [place] WBC,Urine 5-9 High 0-4 [facility] Comment on above: Order Comment: Name Collection Type:: Clean-Voided Midstream Result Comment: Micr oscopic results may be affected due to low specimen volume. Performed By: #### C EA #### [address] ECG 12 lead ECGon 12-27-2023 ECG 12 lead ECG [facility] Main [facility] [address] [place] [address] Electrocardiograph Report Signed Patient: Bhupendra Rubi MR#: [id number] 306 : 1950 Acct:[id number] Age/Sex: 73 / F ADM Date: 12/27/23 Loc: ER Room: Type: [facility] ER Attending Dr: Ordering Provider: Bernardino [...] By Bernardino Bhakta MD 12/11 Normal [facility] Epithelial cells.squamous [# /area] in Urine sediment by Microscopy high power fieldOrdered By: Bernardino Bhakta on 12-27-2023 Epithelial cells.squamous LM.HPF (Urine sed) [#/Area] 5-9 [HPF] High 0-2 [facility] Comment on above: Microscopic results may be affected due to low specimen volume. Erythrocyte distribution wid th [Ratio] by Automated countOrdered By: Bernardino Bhakta on 12-27-2023 Erythrocyte distribution width (RBC) [Ratio] 15.6 % High 11.9-15.3 [facility] Comment on above: Performed By: #### H S TROP, CK, CMP, CBC #### [facility] [address] [place] [address] Erythrocytes [#/area] in Uri ne sediment by Microscopy high power fieldOrdered By: Bernardino Bhakta on 12-27-2023 RBC LM.HPF (Urine sed) [#/Area] None seen [HPF] 0-4 [facility] Comment on above: Microscopic results may be affected due to low specimen volume. Erythrocytes [#/volume] in B lood by Automated countOrdered By: Bernardino Bhakta on 12-27-2023 RBC (Bld) [#/Vol] 5.03 10*6/uL High 3.60-5.00 [facility] Comment on above: Performed By: #### H S TROP, CK, CMP, CBC #### [facility] [address] [place] [address] Fecal occult blood detection by immunochemistryOrdered By: Bernardino Bhakta on 12-27-2023 Hemoglobin.gastrointesti nal Ql (Stl) [facility] Fibrin D-dimer [Presence] in Platelet poor plasma by Latex agglutinationOrdered By: Bernardino Bhakta on 12-27-2023 Fibrin D-dimer LA Ql (PPP) 480 ng/mL High 0-243 [facility] Comment on above: The reference [...] coagulation studies. Please contact the laboratory at [phone] for redraw instructions. Glucose [Mass/volume] in Ser um or PlasmaOrdered By: Bernardino Bhakta on 12-27-2023 Glucose [Mass/Vol] 120 mg/dL High 70-100 [facility] Comment on above: ADA recommended refe rence rangeRandom Glucose Reference Range is dependent on time and content of last meal. Glucose of more than 200 mg/dL in a nonstressed, ambulatory subject supports the diagnosis of Diabetes Mellitus. Result Comment: Longs om Glucose Reference Range is dependent on time and content of last meal. Glucose of more than 200 mg/dL in a nonstressed, ambulatory subject supports the diagnosis of Diabetes Mellitus. ADA recommended reference range Performed By: #### H S TROP, CK, CMP, CBC #### [facility] [address] [place] [address] Glucose [Mass/volume] in Uri ne by Test stripOrdered By: Bernardino Bhakta on 12-27-2023 Glucose Test strip (U) [Mass/Vol] Normal mg/dL Normal [facility] Hematocrit [Volume Fraction] of Blood by Automated countOrdered By: Bernardino Bhakta on 12-27-2023 Hematocrit (Bld) [Volume fraction] 44.0 % Normal 34.0-46.4 [facility] Comment on above: Performed By: #### H S TROP, CK, CMP, CBC #### [facility] [address] Hemoglobin Test strip Ql (U) Ordered By: Bernardino Bhakta on 12-27-2023 Hemoglobin Ql (U) Negative Negative [facility] Hemoglobin [Mass/volume] in BloodOrdered By: Bernardino Bhakta on 12-27-2023 Hemoglobin (Bld) [Mass/Vol] 14.5 g/dL Normal 11.8-15.4 [facility] Comment on above: Performed By: #### H S TROP, CK, CMP, CBC #### [facility] [address] INR in Platelet poor plasma by Coagulation assayOrdered By: Bernardino Bhakta on 12-27-2023 INR Coag (PPP) [Relative time] 1.0 {INR} Normal [facility] Comment on above: INR Therapeutic [...] valves: 3 - 4.5 Performed By: #### D DIMER, LACTIC, PTT, PT ####[facility] [id number] Ketones [Presence] in Urine by Test stripOrdered By: Bernardino Bhakta on 12-27-2023 Ketones Ql (U) Negative Normal Negative [facility] Comment on above: Order Comment: Name Collection Type:: Clean-Voided Midstream Performed By: #### C EA #### [facility] [address] [place] [address] [place] Lactate [Moles/volume] in Se rum or PlasmaOrdered By: Bernardino Bhakta on 12-27-2023 Lactate [Moles/Vol] 1.6 mmol/L Normal 0.5-2.2 [facility] Comment on above: Result Comment: PERF ORMED BY: [address] [place] [address] PATHOLOGIST SOCIAL MEDIA ANALYST JENNIFER ALANIZ M.D. Performed By: #### D DIMER, LACTIC, PTT, PT ####[facility] Leukocyte esterase [Presence ] in Urine by Test stripOrdered By: Bernardino Bhakta on 12-27-2023 Leukocyte esterase Test strip Ql (U) 4+ High Negative [facility] Comment on above: Order Comment: Name Collection Type:: Clean-Voided Midstream Performed By: #### C EA #### [facility] [address] Leukocytes [#/area] in Urine sediment by Microscopy high power fieldOrdered By: Bernardino Bhakta on 12-27-2023 WBC LM.HPF (Urine sed) [#/Area] 5-9 [HPF] High 0-4 [facility] Comment on above: Microscopic results may be affected due to low specimen volume. Leukocytes [#/volume] correc pilar for nucleated erythrocytes in Blood by Automated counOrdered By: Bernardino Bhakta on 12-27-2023 WBC corrected for nucl RBC Auto (Bld) [#/Vol] 13.4 10*3/uL High 3.8-11.6 [facility] Leukocytes [#/volume] in Blo od by Automated countOrdered By: Bernardino Bhakta on 12-27-2023 WBC (Bld) [#/Vol] 13.4 10*3/uL High 3.8-11.6 [facility] Comment on above: Performed By: #### H S TROP, CK, CMP, CBC #### [facility] [address] [place] [address] [place] Lymphocytes [#/volume] in Bl ood by Automated countOrdered By: Bernardino Bhakta on 12-27-2023 Lymphocytes (Bld) [#/Vol] 3.7 10*3/uL Normal 1.00-4.8 [facility] Comment on above: Performed By: #### H S TROP, CK, CMP, CBC #### [facility] [address] Lymphocytes/100 leukocytes i n Blood by Automated countOrdered By: Bernardino Bhakta on 12-27-2023 Lymphocytes/100 WBC (Bld) 27.4 % Normal . [facility] Comment on above: Performed By: #### H S TROP, CK, CMP, CBC #### [facility] [address] MCH [Entitic mass] by Automa pilar countOrdered By: Bernardino Bhakta on 12-27-2023 MCH (RBC) [Entitic mass] 28.9 pg Normal 24.7-34.3 [facility] Comment on above: Performed By: #### H S TROP, CK, CMP, CBC #### [facility] [address] [place] [address] MCHC Auto (RBC) [Mass/Vol]Or dered By: Bernardino Bhakta on 12-27-2023 MCHC (RBC) [Mass/Vol] 33.0 g/dL 32.0-35.0 [facility] MCV [Entitic volume] by Auto mated countOrdered By: Bernardino Bhakta on 12-27-2023 MCV (RBC) [Entitic vol] 87.6 fL Normal 80-100 [facility] Comment on above: Performed By: #### H S TROP, CK, CMP, CBC #### [facility] [address] [place] [address] Monocyte distribution width [Entitic volume] in Blood by AutomatedOrdered By: Bernardino Bhakta on 12-27-2023 Monocyte distribution width Auto (Bld) [Entitic vol] 19.53 % 0.00-20.00 [facility] Neutrophils [#/volume] in Bl ood by Automated countOrdered By: Bernardino Bhakta on 12-27-2023 Neutrophils (Bld) [#/Vol] 8.3 10*3/uL High 1.8-7.7 [facility] Comment on above: Performed By: #### H S TROP, CK, CMP, CBC #### [facility] [facility] [address] Nitrite Test strip Ql (U)Ord ered By: Bernardino Bhakta on 12-27-2023 Nitrite Ql (U) Negative Negative [facility] No Panel InformationOrdered By: Bernardino Bhakta on 12-27-2023 Arterial Blood Base Excess -2.4 mmol/L -3.0-3.0 [facility] Arterial Blood Oxygen Content 7.5 mmol/L 6.6-9.7 [facility] Arterial Blood Oxygen Saturation 95.5 % 95.0-100.0 [facility] Arterial Blood Partial Pressure CO2 46.7 mm[Hg] High 35.0-45.0 [facility] Arterial Blood Partial Pressure O2 84.0 mm[Hg] 80.0-100.0 [facility] Arterial Blood pH 7.33 Low 7.35-7.45 [facility] Blood Gas Critical Value See comment [facility] Comment on above: Critical Value chaves d on: 12/27/2023 at 11:36 Blood Gas Liter Flow 3 L/min [facility] Blood Gas Sample Site Left radial [facility] FiO2 32 % [facility] Oxygen Delivery Device Nasal cannula [facility] Estimated GFR (CKD-EPI) > 60.0 mL/Min [facility] Pharmacy Creatinine Clearance (Chem 50.59 [facility] Nucleated erythrocytes [Pres ence] in Blood by Automated countOrdered By: Bernardino Bhakta on 12-27-2023 Nucleated RBC Auto Ql (Bld) 0.1 /100{WBC} 0-0.5 [facility] Partial Thromboplastin Timeo n 12-27-2023 aPTT Coag (Bld) [Time] 24.6 s Low 25.1-36.5 [facility] Comment on above: Result Comment: A he matocrit value greater than 55% may lead to inaccurate results in coagulation testing. Patients having hematocrit values >55% require a special collection tube for coagulation studies. Please contact the laboratory at [phone] for redraw instructions. Performed By: #### D DIMER, LACTIC, PTT, PT ####[facility] [id number] Platelet mean volume [Entiti c volume] in Blood by Automated countOrdered By: Bernardino Bhakta on 12-27-2023 Platelet mean volume (Bld) [Entitic vol] 8.3 fL Normal 6.3-10.7 [facility] Comment on above: Performed By: #### H S TROP, CK, CMP, CBC #### [facility] [address] Platelets [#/volume] in Bloo d by Automated countOrdered By: Bernardino Bhakta on 12-27-2023 Platelets (Bld) [#/Vol] 399 10*3/uL Normal 150-450 [facility] Comment on above: Performed By: #### H S TROP, CK, CMP, CBC #### [address] Potassium [Moles/volume] in Serum or PlasmaOrdered By: Bernardino Bhakta on 12-27-2023 Potassium [Moles/Vol] 3.7 mmol/L Normal 3.5-5.1 [facility] Comment on above: Performed By: #### H S TROP, CK, CMP, CBC #### [address] Protein Test strip (U) [Mass /Vol]Ordered By: Bernardino Bhakta on 12-27-2023 Protein (U) [Mass/Vol] Negative Negative [facility] Protein [Mass/volume] in Ser um or PlasmaOrdered By: Bernardino Bhakta on 12-27-2023 Protein [Mass/Vol] 6.8 g/dL Normal 6.4-8.9 [facility] Comment on above: Performed By: #### H S TROP, CK, CMP, CBC #### [address] Prothrombin time (PT)Ordered By: Bernardino Bhakta on 12-27-2023 PT Coag (PPP) [Time] 11.5 s Normal 9.0-12.9 [facility] Comment on above: A hematocrit value g reater than 55% may lead to inaccurate results in coagulation testing. Patients having hematocrit values >55% require a special collection tube for coagulation studies. Please contact the laboratory at [phone] for redraw instructions. Result Comment: A he matocrit value greater than 55% may lead to inaccurate results in coagulation testing. Patients having hematocrit values >55% require a special collection tube for coagulation studies. Please contact the laboratory at [phone] for redraw instructions. Performed By: #### D DIMER, LACTIC, PTT, PT ####[facility] [id number] Serum globulin measurement b y calculation (mass/volume)Ordered By: Bernardino Bhakta on 12-27-2023 Globulin (S) [Mass/Vol] 2.8 g/dL Normal [facility] Comment on above: Performed By: #### H S TROP, CK, CMP, CBC #### [address] Serum or plasma albumin/glob ulin mass ratioOrdered By: Bernardion Bhakta on 12-27-2023 Albumin/Globulin [Mass ratio] 1.4 {ratio} Normal [facility] Comment on above: Performed By: #### H S TROP, CK, CMP, CBC #### [address] Serum or plasma anion gap de terminationOrdered By: Bernardino Bhakta on 12-27-2023 Anion gap [Moles/Vol] 12.8 mmol/L Normal 6.0-15.0 [facility] Comment on above: Performed By: #### H S TROP, CK, CMP, CBC #### [address] Sodium [Moles/volume] in Ser um or PlasmaOrdered By: Bernardino Bhakta on 12-27-2023 Sodium [Moles/Vol] 140 mmol/L Normal 136-145 [facility] Comment on above: Performed By: #### H S TROP, CK, CMP, CBC #### [address] Specific gravity Test strip (U) [Rel density]Ordered By: Bernardino Bhakta on 12-27-2023 Specific gravity (U) [Rel density] 1.043 High 1.001-1.03 0 [facility] Stool Occult Blood (Guaiac)o n 12-27-2023 Stool Occult Blood (Guaiac) Occult Blood Negative for Occult Blood by Guaiac Methodology ---- Reference range = Negative PERFORMED BY: [place] [address] PATHOLOGIST SOCIAL MEDIA ANALYST JENNIFER ALANIZ M.D. Normal [facility] Comment on above: Performed By: #### O B(GUAIAC) #### [facility] [address] [place] [address] Troponin I High Sensitivityo n 12-27-2023 Troponin I High Sensitivity < 2.3 Normal 0.0-15.0 [facility] Comment on above: Result Comment: PERF ORMED BY: [place] [address] PATHOLOGIST SOCIAL MEDIA ANALYST JENNIFER ALANIZ M.D. Performed By: #### H S TROP, CK, CMP, CBC #### [facility] [address] [place] [address] Troponin I.cardiac [Mass/vol ume] in Serum or Plasma by Detection limit <= 0.01 ng/Ordered By: Bernardino Bhakta on 12-27-2023 Troponin I.cardiac DL <= 0.01 ng/mL [Mass/Vol] < 2.3 pg/mL 0.0-15.0 [facility] Type and Screenon 12-27-2023 ABO and Rh group Nom (Bld) Blood group A Rh(D) positive Normal [facility] Urea nitrogen [Mass/volume] in Serum or PlasmaOrdered By: Bernardino Bhakta on 12-27-2023 Urea nitrogen [Mass/Vol] 13 mg/dL Normal 7-25 [facility] Comment on above: Performed By: #### H S TROP, CK, CMP, CBC #### [facility] [address] [place] [address] Urine Cultureon 12-27-2023 Bacteria identified Cx Nom (U) 50,000 colonies/ml mixed bacterial skin contaminants 2 Days PERFORMED BY: [place] [address] PATHOLOGIST SOCIAL MEDIA ANALYST JENNIFER ALANIZ M.D. Normal [facility] Comment on above: Performed By: #### C EA #### [address] Urine appearanceOrdered By: Bernardino Bhakta on 12-27-2023 Appearance (U) Cloudy Critically abnormal Clear [facility] Comment on above: Order Comment: Name Collection Type:: Clean-Voided Midstream Performed By: #### C EA #### [address] Urine culture routineOrdered By: Bernardino Bhakta on 12-27-2023 Bacteria identified Cx Nom (U) 2 Days [facility] Urobilinogen Test strip (U) [Mass/Vol]Ordered By: Bernardino Bhakta on 12-27-2023 Urobilinogen (U) [Mass/Vol] Normal mg/dL Normal [facility] XR chest 1V portableon 12-26 XR chest 1V portable [facility] Main Vol[facility] [address] [place] [address] XRay Report Signed Patient: Bhupendra Rubi MR#: [id number] : 1950 Acct:[id number] Age/Sex: 73 / F ADM Date: 12/27/23 Loc: ER Room: Type: [facility] ER Attending Dr: Copies to: Bernardino Bhakta [...] Adam [facility] M.D.12/27/2023 12:16 PM Dictation Location: [place] [address] Transcribed By: [facility] 12/27/23 1216 Dictated By: Adam [facility] DO 12/27/23 1204 Signed By: 12/27/23 1216 Normal [facility] pH of Urine by Test stripOrd ered By: Bernardino Bhakta on 12-27-2023 pH (U) 6.0 [pH] Normal 5.0-9.0 [facility] Comment on above: Order Comment: Name Collection Type:: Clean-Voided Midstream Performed By: #### C EA #### [facility] [address] Provider Letteron 06-23-2023 Provider Letter (Inserted Image. Es ble to display) June 23, 2023 BHUPENDRA RUBI [address] [place] [id number] : 1950 Dear Bhupendra, We are reaching out to inform you that Dr. Turner is now approved and credentialed with your insurance. Please call our office at your earliest convenience to schedule the EGD that was recommended at your last visit. Thank you for your prompt attention to this matter. Sincerely, [facility] [phone] Normal [facility] CHEMISTRYOrdered By: SYSTEM SYSTEM on 01-01-2023 [...] 32.6 g/dL Normal 31.4 - 36.0 gm/dL [facility] HemeAutoSS MCV (RBC) [Entitic vol] 89.8 fL Normal 80.0 - 100.0 fL FT HemeAutoSS Platelet mean volume (Bld) [Entitic vol] 8.4 fL Normal 6.4 - 10.8 fL FT HemeAutoSS Platelets (Bld) [#/Vol] 408.0 E9/L Normal 150. 0 - 500.0 E9/L FT HemeAutoSS RBC (Bld) [#/Vol] 5.1 E12/L Normal 4.3 - 5.9 E12/L [facility] HemeAutoSS WBC corrected for nucl RBC Auto (Bld) [#/Vol] 13.6 E9/L High 4.0 - 11.0 E9/L [facility] HemeAutoSS CBC AUTO DIFFon 11-11-2022 BASO # 0.1 103/ul Normal 0.0-0.1 [facility] Comment on above: Performed By: #### C BC #### [facility] [address] [place] [address] Dr. Anisa Gomez Basophils/100 WBC (Bld) 0.5 % Normal 0.2-2.0 [facility] Comment on above: Performed By: #### C BC #### [facility] [address] [place] [address] Dr. Anisa Gomez EO # 0.1 103/ul Normal 0.0-0.7 [facility] Comment on above: Performed By: #### C BC #### [facility] [address] [place] [address] Dr. Anisa Gomez Eosinophils/100 WBC (Bld) 0.8 % Critically low 0.9-7.0 [facility] Comment on above: Performed By: #### C BC #### [facility] [address] [place] [address] Dr. Anisa Gomez Erythrocyte distribution width (RBC) [Ratio] 15.2 % Critically high 11.0-15.0 [facility] Comment on above: Performed By: #### C BC #### [facility] [address] [place] [address] Dr. Anisa Gomez Hematocrit (Bld) [Volume fraction] 48.8 % Critically high 36.0-48.0 [facility] Comment on above: Performed By: #### C BC #### [facility] [address] [place] [address] Dr. Anisa Gomez Hemoglobin (Bld) [Mass/Vol] 15.8 g/dL Normal 12.0-16.0 [facility] Comment on above: Performed By: #### C BC #### [facility] [address] [place] [address] Dr. Anisa Gomez IG # 0.03 10e3/ul Normal 0.00-0.03 [facility] Comment on above: Performed By: #### C BC #### [facility] [address] [place] [address] Dr. Anisa Gomez IG % 0.2 % Normal 0.0-0.5 [facility] Comment on above: Performed By: #### C BC #### [facility] [address] [place] [address] Dr. Anisa Gomez LYMPH # 3.2 103/ul Normal 1.2-3.8 [facility] Comment on above: Performed By: #### C BC #### [facility] [address] [place] [address] Dr. Anisa Gomez Lymphocytes/100 WBC (Bld) 21.9 % Normal 20.5-60.0 [facility] Comment on above: Performed By: #### C BC #### [facility] [address] [place] [address] Dr. Anisa Gomez MANUAL DIFF REQ NO Normal [facility] Comment on above: Performed By: #### C BC #### [facility] [address] [place] [address] Dr. Anisa Gomez MCH (RBC) [Entitic mass] 29.9 pg Normal 26.7-34.0 [facility] Comment on above: Performed By: #### C BC #### [facility] [address] [place] [address] Dr. Anisa Gomez MCHC (RBC) [Mass/Vol] 32.4 g/dL Normal 29.9-35.2 [facility] Comment on above: Performed By: #### C BC #### [facility] [address] [place] [address] Dr. Anisa Gomez MCV (RBC) [Entitic vol] 92.2 fL Normal 81.0-99.0 [facility] Comment on above: Performed By: #### C BC #### [facility] [address] [place] [address] [address] Anisa Gomez MONO # 1.2 103/ul Critically high 0.3-0.8 [facility] Comment on above: Performed By: #### C BC #### [facility] [address] [place] [address] Dr. Anisa Gomez Monocytes/100 WBC (Bld) 8.0 % Normal 1.7-12.0 [facility] Comment on above: Performed By: #### C BC #### [facility] [address] [place] [address] Dr. Anisa Gomez NEUT # 9.9 103/ul Critically high 1.4-6.5 [facility] Comment on above: Performed By: #### C BC #### [facility] [address] [place] [address] Dr. Anisa Gomez Neutrophils/100 WBC (Bld) 68.6 % Normal 43.0-75.0 [facility] Comment on above: Performed By: #### C BC #### [facility] [address] [place] [address] Dr. Anisa Gomez Platelet mean volume (Bld) [Entitic vol] 10.6 fL Normal 9.5-13.5 [facility] Comment on above: Performed By: #### C BC #### [facility] [address] [place] [address] Dr. Anisa Gomez PLT 336 103/ul Normal 150-450 [facility] Comment on above: Performed By: #### C BC #### [facility] [address] [place] [address] Dr. Anisa Gomez RBC 5.29 106/ul Normal 4.20-5.40 [facility] Comment on above: Performed By: #### C BC #### [facility] [address] [place], [place] [address] Dr. Anisa Gomez WBC 14.4 103/ul Critically high 4.0-11.0 [facility] Comment on above: Performed By: #### C BC #### [facility] [address] [place], [place] [address] Dr. Anisa Gomez CTA ABD/PELVIS WO W [...] by: LAYNE HO Date: 2022-11-11 18:26 Normal [facility] CTA CHEST WO W CONon 023 [...] ANDRES UNLU Date: 2022-11-11 17:48 Normal [facility] ER URINE PROFILEon 3 Bilirubin Ql (U) Negative Normal NEGATIVE [facility] Comment on above: Performed By: #### E RUR ####[facility] [address] [place] [address]Dr. Anisa Gomez Clarity (U) CLEAR Normal CLEAR [facility] Comment on above: Performed By: #### E RUR ####[facility] [address] [place] [address]Dr. Anisa Gomez Color (U) LT. YELLOW Normal YELLOW [facility] Comment on above: Performed By: #### E RUR ####[facility] [address] [place], [place] [address]Dr. Anisa Gomez ERUAHD A micrscopic examina tion will be performed if indicated. Normal [facility] Comment on above: Performed By: #### E RUR ####[facility] [address] [place], [place] [address]Dr. Anisa Gomez Glucose Ql (U) Negative Normal NEGATIVE [facility] Comment on above: Performed By: #### E RUR ####[facility] [address] [place], [place] [address]Dr. Anisa Gomez Hemoglobin Ql (U) Negative Normal NEGATIVE [facility] Comment on above: Performed By: #### E RUR ####[facility] [address] [place], [place] [address]Dr. Anisa Gomez Ketones Ql (U) Negative Normal NEGATIVE [facility] Comment on above: Performed By: #### E RUR ####[facility] [address] [place], [place] [address]Dr. Anisa Gomez LEUKOCYTES Negative Normal NEGATIVE [facility] Comment on above: Performed By: #### E RUR ####[facility] [address] [place], [place] [address]Dr. Anisa Gomez Nitrite Ql (U) Negative Normal NEGATIVE [facility] Comment on above: Performed By: #### E RUR ####[facility] [address] [place], [place] [address]Dr. Anisa Gomez pH (U) 5.5 [pH] Normal 5-9 [facility] Comment on above: Performed By: #### E RUR ####[facility] [address] [place], [place] [address]Dr. Anisa Gomez SPEC GRAVITY >=1.030 Abnormal 1.005-<=1. 025 [facility] Comment on above: Performed By: #### E RUR ####[facility] [address] [place], [place] [address]Dr. Anisa Gomez UA PROTEIN Negative Normal NEGATIVE/ TRACE [facility] Comment on above: Performed By: #### E RUR ####[facility] [address] [place] [address]DrCathy Gomez UR MICRO IND NOT INDICATED Normal [facility] Comment on above: Performed By: #### E RUR ####[facility] [address] [place] [address]Dr. Anisa Gomez Urobilinogen Qn (U) 0.2 {Agustin'U}/dL Normal 0.2 - 1. 0 [facility] Comment on above: Performed By: #### E RUR ####[facility] [address] [place] [address]Dr. Anisa Gomez LIPASEon 11-11-2022 Lipase [Catalytic activity/Vol] 100.0 U/L Normal 73.0-393.0 [facility] Comment on above: Performed By: #### JANET BOOTH #### [facility] [address] [place] [address] Dr. Anisa Gomez LIVER PROFILEon 11-11-2022 Albumin [Mass/Vol] 3.8 g/dL Normal 3.4-5.0 [facility] Comment on above: Performed By: #### JANET BOOTH #### [facility] [address] [place] [address] Dr. Anisa Gomez Albumin/Globulin [Mass ratio] 0.9 {ratio} Normal [facility] Comment on above: Performed By: #### JANET BOOTH #### [facility] [address] [place] [address] Dr. Anisa Gomez ALP [Catalytic activity/Vol] 107 U/L Normal 46-116 [facility] Comment on above: Performed By: #### JANET BOOTH #### [facility] [address] [place] [address] Dr. Anisa Gomez ALT [Catalytic activity/Vol] 25 U/L Normal 14-59 [facility] Comment on above: Performed By: #### JANET BOOTH #### [facility] [address] [place] [address] Dr. Anisa Gomez AST [Catalytic activity/Vol] 25 U/L Normal 15-37 [facility] Comment on above: Performed By: #### L YAMILE LIPA #### [facility] [address] [place] [address] Dr. Anisa Gomez BILI, CONJUGATED 0.1 mg/dL Normal 0.0-0.2 [facility] Comment on above: Performed By: #### L YAMILE LIPA #### [facility] [address] [place] [address] Dr. Anisa Gomez Bilirubin [Mass/Vol] 0.5 mg/dL Normal 0.2-1.0 [facility] Comment on above: Performed By: #### L YAMILE LIPA #### [facility] [address] [place] [address] Dr. Anisa Gomez Globulin (S) [Mass/Vol] 4.0 g/dL Normal [facility] Comment on above: Performed By: #### L YAMILE LIPA #### [facility] [address] [place] [address] Dr. Anisa Gomez Protein [Mass/Vol] 7.8 g/dL Normal 6.4-8.2 [facility] Comment on above: Performed By: #### L YAMILE LIPA #### [facility] [address] [place] [address] Dr. Anisa Gomez PROF CHEM 8 (BAS METB)on Anion gap [Moles/Vol] 13.2 mmol/L Normal [facility] Comment on above: Performed By: #### B MP #### [facility] [address] [place] [address] Dr. Anisa Gomez Calcium [Mass/Vol] 9.4 mg/dL Normal 8.5-10.1 [facility] Comment on above: Performed By: #### B MP #### [facility] [address] [place] [address] Dr. Anisa Gomez Chloride [Moles/Vol] 103 mmol/L Normal 98-107 [facility] Comment on above: Performed By: #### B MP #### [facility] [address] [place] [address] [address] Anisa Gomez CO2 [Moles/Vol] 29.3 mmol/L Normal 21.0-32.0 [facility] Comment on above: Performed By: #### B MP #### [facility] [address] [place] [address] [address] Anisa Gomez Creatinine [Mass/Vol] 1.02 mg/dL Normal 0.55-1.02 [facility] Comment on above: Performed By: #### B MP #### [facility] [address] [place] [address] [address] Anisa Gomez EGFR-AF HONDURAN 60 mL/min/1.73m2 Normal >=60 [facility] Comment on above: Performed By: #### B MP #### [facility] [address] [place] [address] [address] Anisa Gomez EGFR-NON AF HONDURAN 54 mL/min/1.73m2 Critically low >=60 [facility] Comment on above: Performed By: #### B MP #### [facility] [address] [place] [address] [address] Anisa Gomez Glucose [Mass/Vol] 102 mg/dL Normal 74-106 [facility] Comment on above: Performed By: #### B MP #### [facility] [address] [place] [address] [address] Anisa oGmez Potassium [Moles/Vol] 4.5 mmol/L Normal 3.5-5.1 [facility] Comment on above: Performed By: #### B MP #### [facility] [address] [place] [address] [address] Anisa Gomez Sodium [Moles/Vol] 141 mmol/L Normal 136-145 [facility] Comment on above: Performed By: #### B MP #### [facility] [address] [place] [address] [address] Anisa Gomez Urea nitrogen [Mass/Vol] 16.0 mg/dL Normal 7.0-18.0 [facility] Comment on above: Performed By: #### B MP #### [facility] [address] [place], [place] [address] Dr. Anisa Gomez Urea nitrogen/Creatinine [Mass ratio] 15.7 mg/mg Normal [facility] Comment on above: Performed By: #### B MP #### [facility] [address] [place], [place] [address] CHEST WO CONon [...] is recommended for better evaluation. Normal [facility] HEMOGLOBINon 10-27-2022 Hemoglobin (Bld) [Mass/Vol] 14.5 g/dL Normal 12.0-16.0 [facility] Comment on above: Performed By: #### H GB ####[facility] [address] [place], [place] [address]. Anisa Gomez CT LUNG CANCER SCREENINGon 0 [...] ROMEL ALONZO Date: 2022-07-24 17:20 Normal [facility] MG MAMM SCREEN 3D BRISSA CADon 07-09-2022 MG MAMM SCREEN 3D BRISSA CAD Patient: BHUPENDRA RUBI Exam Date: 07/09/2022 : 1950 Gender:F Ordering : SHAIKH Eddie MORENOGERMÁN . Admission #: [id number] Family : Order #: [id number] CLICK HERE TO VIEW EXAM RADIOLOGY REPORT [...] Treatments None Family Cancers None LOCATION: [facility] BREAST COMPOSITION: Heterogeneously dense,which may obscure [...] Alonzo M.D. on 07/25/2022 at 08:51 Normal [facility] CBC AUTO DIFFon 05-07-2022 BASO # 0.1 103/ul Normal 0.0-0.1 [facility] Comment on above: Performed By: #### C BC #### [facility] [address] [place] [address] [address] Anisa Gomez Basophils/100 WBC (Bld) 0.7 % Normal 0.2-2.0 [facility] Comment on above: Performed By: #### C BC #### [facility] [address] [place] [address] [address] Anisa Gomez EO # 0.1 103/ul Normal 0.0-0.7 [facility] Comment on above: Performed By: #### C BC #### [facility] [address] [place] [address] [address] Anisa Gomez Eosinophils/100 WBC (Bld) 0.6 % Critically low 0.9-7.0 [facility] Comment on above: Performed By: #### C BC #### [facility] [address] [place] [address] Dr. Anisa Gomez Erythrocyte distribution width (RBC) [Ratio] 14.9 % Normal 11.0-15.0 [facility] Comment on above: Performed By: #### C BC #### [facility] [address] [place] [address] Dr. Anisa Gomez Hematocrit (Bld) [Volume fraction] 48.4 % Critically high 36.0-48.0 [facility] Comment on above: Performed By: #### C BC #### [facility] [facility] [address] [place] [address] Dr. Anisa Gomez Hemoglobin (Bld) [Mass/Vol] 15.6 g/dL Normal 12.0-16.0 [facility] Comment on above: Performed By: #### C BC #### [facility] [address] [place] [address] Dr. Anisa Gomez IG # 0.02 10e3/ul Normal 0.00-0.03 [facility] Comment on above: Performed By: #### C BC #### [facility] [address] [place] [address] Dr. Anisa Gomez IG % 0.2 % Normal 0.0-0.5 [facility] Comment on above: Performed By: #### C BC #### [facility] [address] [place] [address] Dr. Anisa Gomez LYMPH # 2.9 103/ul Normal 1.2-3.8 [facility] Comment on above: Performed By: #### C BC #### [facility] [address] [place] [address] Dr. Anisa Gomez Lymphocytes/100 WBC (Bld) 28.6 % Normal 20.5-60.0 [facility] Comment on above: Performed By: #### C BC #### [facility] [address] [place] [address] Dr. Anisa Gomez MANUAL DIFF REQ NO Normal [facility] Comment on above: Performed By: #### C BC #### [facility] [address] [place] [address] Dr. Anisa Gomez MCH (RBC) [Entitic mass] 29.2 pg Normal 26.7-34.0 [facility] Comment on above: Performed By: #### C BC #### [facility] [address] [place] [address] Dr. Anisa Gomez MCHC (RBC) [Mass/Vol] 32.2 g/dL Normal 29.9-35.2 [facility] Comment on above: Performed By: #### C BC #### [facility] [address] [place] [address] Dr. Anisa Gomez MCV (RBC) [Entitic vol] 90.5 fL Normal 81.0-99.0 [facility] Comment on above: Performed By: #### C BC #### [facility] [address] [place] [address] Dr. Anisa Gomez MONO # 1.0 103/ul Critically high 0.3-0.8 [facility] Comment on above: Performed By: #### C BC #### [facility] [address] [place] [address] Dr. Anisa Gomez Monocytes/100 WBC (Bld) 9.5 % Normal 1.7-12.0 [facility] Comment on above: Performed By: #### C BC #### [facility] [address] [place] [address] Dr. Anisa Gomez NEUT # 6.2 103/ul Normal 1.4-6.5 [facility] Comment on above: Performed By: #### C BC #### [facility] [address] [place] [address] Dr. Anisa Gomez Neutrophils/100 WBC (Bld) 60.4 % Normal 43.0-75.0 [facility] Comment on above: Performed By: #### C BC #### [facility] [address] [place] [address] Dr. Anisa Gomez Platelet mean volume (Bld) [Entitic vol] 10.1 fL Normal 9.5-13.5 [facility] Comment on above: Performed By: #### C BC #### [facility] [address] [address] [address] Anisa Gomez PLT 403 103/ul Normal 150-450 [facility] Comment on above: Performed By: #### C BC #### [facility] [address] [address] [address] Anisa Gomez RBC 5.35 106/ul Normal 4.20-5.40 [facility] Comment on above: Performed By: #### C BC #### [facility] [address] [address] [address] Anisa Gomez WBC 10.2 103/ul Normal 4.0-11.0 [facility] Comment on above: Performed By: #### C BC #### [facility] [address] [address] [address] Anisa Gomez LIPID PROFILEon 05-07-2022 CHOL-HDL RATIO NORM SEE BELOW Normal [facility] Comment on above: Result Comment: 3.3 - 4.4 LOW RISK 4.4 - 7.1 AVERAGE RISK 7.1 - 11.0 MODERATE RISK >11.0 HIGH RISK Performed By: #### L IPID, CMP ####[facility] [address] [id number]. Anisa Gomez Cholesterol [Mass/Vol] 242 mg/dL Critically high <=200 [facility] Comment on above: Performed By: #### L IPID, CMP ####[facility] [address] [id number]. Anisa Gomez Cholesterol in HDL [Mass/Vol] 49 mg/dL Normal 40-60 [facility] Comment on above: Performed By: #### L IPID, CMP ####[facility] [address] [id number] Gomez Cholesterol in LDL [Mass/Vol] 148.4 mg/dL Normal [facility] Comment on above: Performed By: #### L IPID, CMP ####[facility] [address] [id number] Gomez Cholesterol.total/Choles terol in HDL [Mass ratio] 4.9 {ratio} Normal [facility] Comment on above: Performed By: #### L IPID, CMP ####[facility] [address] [address]Dr. Anisa Gomez HDL NORMAL > or = 60 mg/dl - LO W CARDIOVASCULAR RISK <40 mg/dl - HIGH CARDIOVASCULAR RISK Normal [facility] Comment on above: Performed By: #### L IPID, CMP ####[facility] [address] [address]Dr. Anisa Gomez LDL CALC NORMAL SEE BELOW Normal [facility] Comment on above: Result Comment: <100 mg/dl OPTIMAL 100 - 129 mg/dl NEAR OR ABOVE OPTIMAL 130 - 159 mg/dl BORDERLINE HIGH 160 - 189 mg/dl HIGH >190 mg/dl VERY HIGH Performed By: #### L IPID, CMP ####[facility] [address] [address]Dr. Anisa Gomez Triglyceride [Mass/Vol] 223 mg/dL Critically high <=150 [facility] Comment on above: Performed By: #### L IPID, CMP ####[facility] [address] [address]Dr. Anisa Gomez VLDL CALC 44.6 mg/dL Normal [facility] Comment on above: Performed By: #### L IPID, CMP ####[facility] [address] [address]Dr. Anisa Gomez PROF 14(COMP METB)on 022 Albumin [Mass/Vol] 3.6 g/dL Normal 3.4-5.0 [facility] Comment on above: Performed By: #### L IPID, CMP ####[facility] [address] [address]Dr. Anisa Gomez Albumin/Globulin [Mass ratio] 1.0 {ratio} Normal [facility] Comment on above: Performed By: #### L IPID, CMP ####[facility] [address] [address]Dr. Anisa Gomez ALP [Catalytic activity/Vol] 95 U/L Normal 46-116 [facility] Comment on above: Performed By: #### L IPID, CMP ####[facility] [address] [address]Dr. Anisa Gomez ALT [Catalytic activity/Vol] 21 U/L Normal 14-59 [facility] Comment on above: Performed By: #### L IPID, CMP ####[facility] [address] [place], [place] [address]Dr. Anisa Gomez Anion gap [Moles/Vol] 6.3 mmol/L Normal [facility] Comment on above: Performed By: #### L IPID, CMP ####[facility] [address] [place], [place] [address]Dr. Anisa Jason AST [Catalytic activity/Vol] 15 U/L Normal 15-37 [facility] Comment on above: Performed By: #### L IPID, CMP ####[facility] [address] [place], [place] [address]Dr. Anisa Gomez Bilirubin [Mass/Vol] 0.5 mg/dL Normal 0.2-1.0 [facility] Comment on above: Performed By: #### L IPID, CMP ####[facility] [address] [place], [place] [address]Dr. Anisa Gomez Calcium [Mass/Vol] 9.1 mg/dL Normal 8.5-10.1 [facility] Comment on above: Performed By: #### L IPID, CMP ####[facility] [address] [place], [place] [address]Dr. Anisa Gomez Chloride [Moles/Vol] 104 mmol/L Normal 98-107 [facility] Comment on above: Performed By: #### L IPID, CMP ####[facility] [address] [place], [place] [address]Dr. Anisa Gomez CO2 [Moles/Vol] 33.4 mmol/L Critically high 21.0-32.0 [facility] Comment on above: Performed By: #### L IPID, CMP ####[facility] [address] [place], [place] [address]Dr. Anisa Gomez Creatinine [Mass/Vol] 0.90 mg/dL Normal 0.55-1.02 [facility] Comment on above: Performed By: #### L IPID, CMP ####[facility] [address] [address]Dr. Anisa Jason EGFR-AF HONDURAN >60 Normal >=60 [facility] Comment on above: Performed By: #### L IPID, CMP ####[facility] [address] [address]Dr. Anisa Gomez EGFR-NON AF HONDURAN >60 Normal >=60 [facility] Comment on above: Performed By: #### L IPID, CMP ####[facility] [address] [address]Dr. Anisa Gomez Globulin (S) [Mass/Vol] 3.7 g/dL Normal [facility] Comment on above: Performed By: #### L IPID, CMP ####[facility] [address] [address]Dr. Anisa Gomez Glucose [Mass/Vol] 67 mg/dL Critically low 74-106 [facility] Comment on above: Performed By: #### L IPID, CMP ####[facility] [address] [place], [place] [address]Dr. Anisa Gomez Potassium [Moles/Vol] 3.7 mmol/L Normal 3.5-5.1 [facility] Comment on above: Performed By: #### L IPID, CMP ####[facility] [address] [address]Dr. Anisa Gomez Protein [Mass/Vol] 7.3 g/dL Normal 6.4-8.2 [facility] Comment on above: Performed By: #### L IPID, CMP ####[facility] [address] [address]Dr. Anisa Gomez Sodium [Moles/Vol] 140 mmol/L Normal 136-145 [facility] Comment on above: Performed By: #### L IPID, CMP ####[facility] [address] [place], [place] [address]Dr. Anisa Gomez Urea nitrogen [Mass/Vol] 13.0 mg/dL Normal 7.0-18.0 [facility] Comment on above: Performed By: #### L IPID, CMP ####[facility] [address] [address]Dr. Anisa Gomez Urea nitrogen/Creatinine [Mass ratio] 14.4 mg/mg Normal [facility] Comment on above: Performed By: #### L IPID, CMP ####[facility] [address] [address]Dr. Anisa Gomez UA RANDOM W/MICROSCOPICon BACTERIA NONE SEEN Normal NONE SEEN [facility] Comment on above: Performed By: #### U AMIC #### [facility] [address] [place] [address] Dr. Anisa Gomez Bilirubin Ql (U) Negative Normal NEGATIVE [facility] Comment on above: Performed By: #### U AMIC #### [facility] [address] [place] [address] Dr. Anisa Gomez CAST NONE SEEN Normal NONE SEEN [facility] Comment on above: Performed By: #### U AMIC #### [facility] [address] [place] [address] Dr. Anisa Gomez Clarity (U) CLEAR Normal CLEAR [facility] Comment on above: Performed By: #### U AMIC #### [facility] [address] [place] [address] Dr. Anisa Gomez Color (U) YELLOW Normal YELLOW [facility] Comment on above: Performed By: #### U AMIC #### [facility] [address] [place] [address] Dr. Anisa Gomez Crystals LM Nom (Urine sed) NONE SEEN Normal NONE SEEN [facility] Comment on above: Performed By: #### U AMIC #### [facility] [address] [place] [address] Dr. Anisa Gomez Epithelial cells LM Ql (Urine sed) RARE Normal NONE SEEN /RARE [facility] Comment on above: Performed By: #### U AMIC #### [facility] [address] [address] [address] Anisa Gomez Glucose Ql (U) Negative Normal NEGATIVE [facility] Comment on above: Performed By: #### U AMIC #### [facility] [address] [address] [address] Anisa Gomez Hemoglobin Ql (U) Negative Normal NEGATIVE [facility] Comment on above: Performed By: #### U AMIC #### [facility] [address] [place] [address] Dr. Anisa Gomez Ketones Ql (U) Negative Normal NEGATIVE [facility] Comment on above: Performed By: #### U AMIC #### [facility] [address] [place] [address] Dr. Anisa Gomez LEUKOCYTES Negative Normal NEGATIVE [facility] Comment on above: Performed By: #### U AMIC #### [facility] [address] [place] [address] Dr. Anisa Gomez MUCOUS NONE SEEN Normal NONE SEEN [facility] Comment on above: Performed By: #### U AMIC #### [facility] [address] [place] [address] Dr. Anisa Gomez Nitrite Ql (U) Negative Normal NEGATIVE [facility] Comment on above: Performed By: #### U AMIC #### [facility] [address] [place] [address] Dr. Anisa Gomez pH (U) 7.0 [pH] Normal 5-9 [facility] Comment on above: Performed By: #### U AMIC #### [facility] [address] [place] [address] Dr. Anisa Gomez RBC 0-2 Normal 0-2 [facility] Comment on above: Performed By: #### U AMIC #### [facility] [address] [place] [address] Dr. Anisa Gomez SPEC GRAVITY 1.010 Normal 1.005-<=1. 025 [facility] Comment on above: Performed By: #### U AMIC #### [facility] [address] [place] [address] Dr. Anisa Gomez UA PROTEIN Negative Normal NEGATIVE/ TRACE [facility] Comment on above: Performed By: #### U AMIC #### [facility] [address] [place], [place] [address] Dr. Anisa Gomez Urobilinogen Qn (U) 0.2 {Agustin'U}/dL Normal 0.2 - 1. 0 [facility] Comment on above: Performed By: #### U AMIC #### [facility] [address] [address] [address] Anisa Gomez WBC 0-2 Abnormal NONE SEEN [facility] Comment on above: Performed By: #### U AMIC #### [facility] [address] [place], [place] [address] Dr. Anisa oGmez Vital Signs Date Time Vital Sign Value Performing Clinician Facility 10-27-2024 10:38-0400 Body mass index (BMI) [Ratio] 28.06 kg/m2 Wendy Burden ASSISTANT HOUSEKEEPING MANAGER Work Phone: [facility] 10-27-2024 10:38-0400 Body temperature 98.49 [degF] Wendy Burden ASSISTANT HOUSEKEEPING MANAGER Work Phone: [facility] 10-27-2024 10:38-0400 Body weight 69.58 kg Wendy Burden ASSISTANT HOUSEKEEPING MANAGER Work Phone: [facility] 10-27-2024 10:38-0400 Diastolic blood pressure 78 mm[Hg] Wendy Jenise ASSISTANT HOUSEKEEPING MANAGER Work Phone: [facility] 10-27-2024 10:38-0400 Heart rate 96 /min Wendy Jenise ASSISTANT HOUSEKEEPING MANAGER Work Phone: [facility] 10-27-2024 10:38-0400 Respiratory rate 20 /min Wendy Jenise ASSISTANT HOUSEKEEPING MANAGER Work Phone: [facility] 10-27-2024 10:38-0400 SaO2% (BldA) [Mass fraction] 89 % Wendy Burden ASSISTANT HOUSEKEEPING MANAGER Work Phone: [facility] 10-27-2024 10:38-0400 Systolic blood pressure 112 mm[Hg] Wendy Burden ASSISTANT HOUSEKEEPING MANAGER Work Phone: [facility] 09-26-2024 10:21-0400 Body height 157.5 cm Kianna Lowe PA Work Phone: [facility] 09-26-2024 10:21-0400 Body mass index (BMI) [Ratio] 27.44 kg/m2 Kianna Lowe PA Work Phone: [facility] 09-26-2024 10:21-0400 Body weight 68.04 kg Kianna Lowe PA Work Phone: [facility] 09-26-2024 10:21-0400 Diastolic blood pressure 84 mm[Hg] Kianna Lowe PA Work Phone: [facility] 09-26-2024 10:21-0400 Systolic blood pressure 138 mm[Hg] Kianna Lowe PA Work Phone: [facility] 08-02-2024 11:57-0500 Body height 157.5 cm Romel Sampson MD Work Phone: [facility] 08-02-2024 11:57-0500 Body mass index (BMI) [Ratio] 27.8 kg/m2 Romel Sampson MD Work Phone: [facility] 08-02-2024 11:57-0500 Body weight 68.95 kg Romel Sampson MD Work Phone: [facility] 08-02-2024 11:57-0500 Diastolic blood pressure 84 mm[Hg] Romel Sampson MD Work Phone: [facility] 08-02-2024 11:57-0500 Systolic blood pressure 118 mm[Hg] Romel Sampson MD Work Phone: [facility] 08-02-2024 10:51-0500 Body height 157.5 cm Chris Singh ASSISTANT HOUSEKEEPING MANAGER Work Phone: [facility] 08-02-2024 10:51-0500 Body mass index (BMI) [Ratio] 28.53 kg/m2 Chris Singh ASSISTANT HOUSEKEEPING MANAGER Work Phone: [facility] 08-02-2024 10:51-0500 Body temperature 97.11 [degF] Chris Singh ASSISTANT HOUSEKEEPING MANAGER Work Phone: [facility] 08-02-2024 10:51-0500 Body weight 70.76 kg Chris Singh ASSISTANT HOUSEKEEPING MANAGER Work Phone: [facility] 08-02-2024 10:51-0500 Diastolic blood pressure 76 mm[Hg] Chris Singh ASSISTANT HOUSEKEEPING MANAGER Work Phone: [facility] 08-02-2024 10:51-0500 Heart rate 107 /min Chris Singh ASSISTANT HOUSEKEEPING MANAGER Work Phone: [facility] 08-02-2024 10:51-0500 Respiratory rate 16 /min Chris Singh ASSISTANT HOUSEKEEPING MANAGER Work Phone: [facility] 08-02-2024 10:51-0500 SaO2% (BldA) [Mass fraction] 95 % Chris Singh ASSISTANT HOUSEKEEPING MANAGER Work Phone: [facility] 08-02-2024 10:51-0500 Systolic blood pressure 128 mm[Hg] Chris Singh ASSISTANT HOUSEKEEPING MANAGER Work Phone: [facility] 07-28-2024 14:17-0500 Body height 159.51 cm Shaikh Aung FARFAN Work Phone: [facility] 07-28-2024 14:17-0500 Body mass index (BMI) [Ratio] 27.2 kg/m2 Shaikh Aung FARFAN Work Phone: [facility] 07-28-2024 14:17-0500 Body temperature 97.1 [degF] Shaikh Aung FARFAN Work Phone: [facility] 07-28-2024 14:17-0500 Body weight 69.39 kg Shaikh Aung FARFAN Work Phone: [facility] 07-28-2024 14:17-0500 Diastolic blood pressure 83 mm[Hg] Shaikh Aung FARFAN Work Phone: [facility] 07-28-2024 14:17-0500 Heart rate 97 /min Shaikh Aung FARFAN Work Phone: [facility] 07-28-2024 14:17-0500 Respiratory rate 18 /min Shaikh Aung FARFAN Work Phone: [facility] 07-28-2024 14:17-0500 SaO2% (BldA) [Mass fraction] 93 % Shaikh Aung FARFAN Work Phone: [facility] 07-28-2024 14:17-0500 Systolic blood pressure 143 mm[Hg] Shaikh Aung FARFAN Work Phone: [facility] 05-23-2024 10:17-0500 Body height 157.5 cm Chris Singh ASSISTANT HOUSEKEEPING MANAGER Work Phone: [facility] 05-23-2024 10:17-0500 Body mass index (BMI) [Ratio] 28.9 kg/m2 Chris Singh ASSISTANT HOUSEKEEPING MANAGER Work Phone: [facility] 05-23-2024 10:17-0500 Body temperature 96.8 [degF] Chris Singh ASSISTANT HOUSEKEEPING MANAGER Work Phone: [facility] 05-23-2024 10:17-0500 Body weight 71.67 kg Chris Singh ASSISTANT HOUSEKEEPING MANAGER Work Phone: [facility] 05-23-2024 10:17-0500 Diastolic blood pressure 84 mm[Hg] Chris Singh ASSISTANT HOUSEKEEPING MANAGER Work Phone: [facility] 05-23-2024 10:17-0500 Heart rate 78 /min Chris Singh ASSISTANT HOUSEKEEPING MANAGER Work Phone: [facility] 05-23-2024 10:17-0500 Respiratory rate 16 /min Chris Buchananpatrick ASSISTANT HOUSEKEEPING MANAGER Work Phone: [facility] 05-23-2024 10:17-0500 SaO2% (BldA) [Mass fraction] 90 % Chris Singh ASSISTANT HOUSEKEEPING MANAGER Work Phone: [facility] 05-23-2024 10:17-0500 Systolic blood pressure 128 mm[Hg] Chris Singh ASSISTANT HOUSEKEEPING MANAGER Work Phone: [facility] 05-11-2024 14:25-0400 Body height 157.48 cm MD Shaikh Horan Work Phone: [facility] 05-11-2024 14:25-0400 Body mass index (BMI) [Ratio] 28.5 kg/m2 MD Shaikh Horan Work Phone: [facility] 05-11-2024 14:25-0400 Body temperature 97.8 [degF] MD Shaikh Horan Work Phone: [facility] 05-11-2024 14:25-0400 Body weight 70.76 kg MD Shaikh Horan Work Phone: [facility] 05-11-2024 14:25-0400 Diastolic blood pressure 78 mm[Hg] MD Shaikh Horan Work Phone: [facility] 05-11-2024 14:25-0400 Heart rate 89 /min MD Shaikh Horan Work Phone: [facility] 05-11-2024 14:25-0400 Respiratory rate 16 /min MD Shaikh Horan Work Phone: [facility] 05-11-2024 14:25-0400 SaO2% (BldA) [Mass fraction] 95 % MD Shaikh Horan Work Phone: [facility] 05-11-2024 14:25-0400 Systolic blood pressure 134 mm[Hg] MD Shaikh Horan Work Phone: [facility] 05-10-2024 14:01-0400 Body height 157.5 cm Javier Villanueva DO Work Phone: [facility] 05-10-2024 14:01-0400 Body mass index (BMI) [Ratio] 27.62 kg/m2 Javier Villanueva DO Work Phone: [facility] 05-10-2024 14:01-0400 Body weight 68.49 kg Javier Villanueva DO Work Phone: [facility] 05-10-2024 14:01-0400 Diastolic blood pressure 90 mm[Hg] Javier Villanueva DO Work Phone: [facility] 05-10-2024 14:01-0400 Systolic blood pressure 130 mm[Hg] Javier Villanueva DO Work Phone: [facility] 03-25-2024 11:45-0400 Diastolic blood pressure 90 mm[Hg] MD Shaikh Horan Work Phone: [facility] 03-25-2024 11:45-0400 Heart rate 85 /min MD Shaikh Horan Work Phone: [facility] 03-25-2024 11:45-0400 Respiratory rate 20 /min MD Shaikh Horan Work Phone: [facility] 03-25-2024 11:45-0400 SaO2% (BldA) [Mass fraction] 95 % MD Shaikh Horan Work Phone: [facility] 03-25-2024 11:45-0400 Systolic blood pressure 152 mm[Hg] MD Shaikh Horan Work Phone: [facility] 03-25-2024 10:06-0400 Body height 157.48 cm MD Shaikh Horan Work Phone: [facility] 03-25-2024 10:06-0400 Body weight 65.77 kg MD Shaikh Horan Work Phone: [facility] 03-24-2024 11:14-0400 Body height 157.5 cm Chris Singh ASSISTANT HOUSEKEEPING MANAGER Work Phone: [facility] 03-24-2024 11:14-0400 Body mass index (BMI) [Ratio] 27.25 kg/m2 Chris Singh ASSISTANT HOUSEKEEPING MANAGER Work Phone: [facility] 03-24-2024 11:14-0400 Body temperature 98.91 [degF] Chris Singh ASSISTANT HOUSEKEEPING MANAGER Work Phone: [facility] 03-24-2024 11:14-0400 Body weight 67.59 kg Chris Singh ASSISTANT HOUSEKEEPING MANAGER Work Phone: [facility] 03-24-2024 11:14-0400 Diastolic blood pressure 80 mm[Hg] Chris Singh ASSISTANT HOUSEKEEPING MANAGER Work Phone: [facility] 03-24-2024 11:14-0400 Heart rate 96 /min Chris Singh ASSISTANT HOUSEKEEPING MANAGER Work Phone: [facility] Comment on above: 93% O2 03-24-2024 11:14-0400 Systolic blood pressure 116 mm[Hg] Chris Singh ASSISTANT HOUSEKEEPING MANAGER Work Phone: [facility] 12-30-2023 09:35-0400 Body height 157.48 cm MD Shaikh Horan Work Phone: [facility] 12-30-2023 09:35-0400 Body mass index (BMI) [Ratio] 27.4 kg/m2 MD Shaikh Horan Work Phone: [facility] 12-30-2023 09:35-0400 Body temperature 97.3 [degF] MD Shaikh Horan Work Phone: [facility] 12-30-2023 09:35-0400 Body weight 68.03 kg MD Shaikh Horan Work Phone: [facility] 12-30-2023 09:35-0400 Diastolic blood pressure 50 mm[Hg] MD Shaikh Horan Work Phone: [facility] 12-30-2023 09:35-0400 Heart rate 106 /min MD Shaikh Horan Work Phone: [facility] 12-30-2023 09:35-0400 Respiratory rate 18 /min MD Shaikh Horan Work Phone: [facility] 12-30-2023 09:35-0400 SaO2% (BldA) [Mass fraction] 85 % MD Shaikh Horan Work Phone: [facility] 12-30-2023 09:35-0400 Systolic blood pressure 76 mm[Hg] MD Shaikh Horan Work Phone: [facility] 12-27-2023 15:46-0400 Diastolic blood pressure 57 mm[Hg] MD Shaikh Horan Work Phone: [facility] 12-27-2023 15:46-0400 Heart rate 65 /min MD Shaikh Horan Work Phone: [facility] 12-27-2023 15:46-0400 Respiratory rate 20 /min MD Shaikh Horan Work Phone: [facility] 12-27-2023 15:46-0400 Systolic blood pressure 112 mm[Hg] MD Shaikh Horan Work Phone: [facility] 12-27-2023 14:59-0400 Inhaled oxygen flow rate 2 L/min MD Shaikh Horan Work Phone: [facility] 12-27-2023 14:59-0400 SaO2% (BldA) [Mass fraction] 92 % MD Shaikh Horan Work Phone: [facility] 12-27-2023 11:20-0400 Body temperature 97.7 [degF] MD Shaikh Horan Work Phone: [facility] 12-27-2023 10:48-0400 Body height 157.48 cm MD Shaikh Horan Work Phone: [facility] 12-27-2023 10:48-0400 Body weight 70.8 kg MD Shaikh Horan Work Phone: [facility] 03-25-2023 10:00-0400 Body height 157.48 cm Nigel Valladares Other [employer] Other 03-25-2023 10:00-0400 Body mass index (BMI) [Ratio] 27.43 kg/m2 Nigel Valladares Other [employer] Other 03-25-2023 10:00-0400 Body temperature 97.2 [degF] Nigel Valladares Other [employer] Other 03-25-2023 10:00-0400 Body weight 68.04 kg Nigel Valladares Other [employer] Other 03-25-2023 10:00-0400 Diastolic blood pressure 82 mm[Hg] Nigel Valladares Other [employer] Other 03-25-2023 10:00-0400 SaO2% (BldA) [Mass fraction] 91 % Nigel Valladares Other [employer] Other 03-25-2023 10:00-0400 Systolic blood pressure 158 mm[Hg] Nigel Langenberg Other [employer] Other 02-09-2023 11:00-0400 Body height 157.48 cm Cherelle Bautista Other [employer] Other 02-09-2023 11:00-0400 Body mass index (BMI) [Ratio] 27.43 kg/m2 Cherelle Bautista Other [employer] Other 02-09-2023 11:00-0400 Body temperature 97.6 [degF] Cherelle Bautista Other [employer] Other 02-09-2023 11:00-0400 Body weight 68.04 kg Cherelle Bautista Other [employer] Other 02-09-2023 11:00-0400 Diastolic blood pressure 74 mm[Hg] Cherelle Bautista Other [employer] Other 02-09-2023 11:00-0400 SaO2% (BldA) [Mass fraction] 92 % Cherelle Bautista Other [employer] Other 02-09-2023 11:00-0400 Systolic blood pressure 122 mm[Hg] Cherelle Singhdylan Other [employer] Other 12-24-2022 10:00-0400 Diastolic blood pressure 86 mm[Hg] Brigette Martini [facility] 12-24-2022 10:00-0400 Mean blood pressure 106 mm[Hg] Brigette Martini [facility] 12-24-2022 10:00-0400 Systolic blood pressure 146 mm[Hg] Brigette Martini [facility] 12-24-2022 09:57-0400 Blood Pressure Location Brigette Martini [facility] 12-24-2022 09:57-0400 Body temperature 97.52 [degF] Brigette Martini [facility] 12-24-2022 09:57-0400 Diastolic blood pressure 82 mm[Hg] Brigette Martini [facility] 12-24-2022 09:57-0400 Heart rate 86 /min Brigette Martini [facility] 12-24-2022 09:57-0400 Systolic blood pressure 150 mm[Hg] Brigette Martini [facility] Encounters Encounter Date Encounter Type Care Provider Facility Start: 11-15-2024 End: 11-15-2024 Orders Only Wendy Burden ASSISTANT HOUSEKEEPING MANAGER Work Phone: [facility] Comment on above: Mixed hyperlipidemia (CMS/HCC) (Primary Dx) Anxiety Start: 11-14-2024 Registered Recurring Mikhail rosenberg MD Work Phone: [facility] Work Phone: Start: 11-14-2024 End: 11-14-2024 ambulatory Mikhail Moon MD Work Phone: [facility] Work Phone: Start: 11-14-2024 End: 11-14-2024 Patient encounter procedure Mikhail Moon MD Work Phone: [facility] Work Phone: Start: 11-02-2024 End: 11-02-2024 Refill Wendy Burden ASSISTANT HOUSEKEEPING MANAGER Work Phone: [facility] Comment on above: Urinary tract infect ion symptoms (Primary Dx); UTI symptoms Start: 10-28-2024 End: 10-28-2024 Refill Wendy Burden ASSISTANT HOUSEKEEPING MANAGER Work Phone: [facility] Comment on above: Anxiety (Primary Dx) ; Psychophysiological insomnia Start: 10-27-2024 End: 10-27-2024 Transitional care manage srvc 14 day discharge Wendy Burden ASSISTANT HOUSEKEEPING MANAGER Work Phone: [facility] Comment on above: Cerebrovascular acci dent (CVA), unspecified mechanism (CMS/HCC) (Primary Dx); Malignant neoplasm of unspecified part of left bronchus or lung (CMS/HCC); Adenocarcinoma of left lung (CMS/HCC); Mixed hyperlipidemia (CMS/HCC); Tobacco dependency; Peripheral polyneuropathy; Primary hypertension (CMS/HCC); Screening mammogram for breast cancer Start: 10-27-2024 End: 10-27-2024 ambulatory WENDY BURDEN Not Available Start: 10-10-2024 Registered Recurring Mikhail rosenberg MD Work Phone: [facility] Work Phone: Start: 10-10-2024 End: 10-10-2024 ambulatory Mikhail Moon MD Work Phone: [facility] Work Phone: Start: 10-10-2024 End: 10-10-2024 Patient encounter procedure Mikhail Moon MD Work Phone: [facility] Work Phone: Start: 10-04-2024 End: 10-04-2024 ambulatory Mikhail Moon MD Work Phone: [facility] Work Phone: Start: 10-04-2024 End: 10-04-2024 Departed Referred Mikhail Moon MD Work Phone: [facility] Start: 09-26-2024 End: 09-26-2024 Bamboo flowsheet Kianna Lowe PA Work Phone: [facility] Start: 09-26-2024 End: 09-26-2024 Bamboo flowsheet Kianna Lowe PA Work Phone: [facility] Start: 09-26-2024 End: 09-26-2024 Office outpatient visit 25 minutes Kianna Lowe PA Work Phone: [facility] Comment on above: Alteration of awaren ess (Primary Dx); History of stroke Start: 09-26-2024 End: 09-26-2024 ambulatory KIANNA LOWE Not Available Start: 09-12-2024 Registered Recurring Mikhail rosenberg MD Work Phone: [facility] Work Phone: Start: 09-12-2024 Non-patient / Non-visit Mikhail cordova MD Work Phone: [facility] Amb[facility] Work Phone: Start: 09-05-2024 Non-patient / Non-visit Mikhail cordova MD Work Phone: [facility] Work Phone: Start: 08-29-2024 Non-patient / Non-visit Mikhail cordova MD Work Phone: [facility] Work Phone: Start: 08-12-2024 Non-patient / Non-visit Mikhail cordova MD Work Phone: [facility] Work Phone: Start: 08-06-2024 Non-patient / Non-visit Mikhail cordova MD Work Phone: [facility] Work Phone: Start: 08-04-2024 Non-patient / Non-visit Mikhail cordova MD Work Phone: [facility] Work Phone: Start: 08-02-2024 End: 08-02-2024 Bamboo flowsheet Chris Samantha ASSISTANT HOUSEKEEPING MANAGER Work Phone: [facility] Start: 08-02-2024 End: 08-02-2024 Bamboo flowsheet Chris Singh ASSISTANT HOUSEKEEPING MANAGER Work Phone: [facility] Start: 08-02-2024 End: 08-02-2024 Office outpatient visit 40 minutes Romel Sampson MD Work Phone: [facility] Comment on above: Alteration of awaren ess; History of stroke Start: 08-02-2024 End: 08-02-2024 ambulatory ROMEL SAMPSON Not Available Start: 08-02-2024 End: 08-02-2024 Patient encounter procedure Chris Singh ASSISTANT HOUSEKEEPING MANAGER Work Phone: [facility] Comment on above: Medicare annual well ness visit, subsequent (Primary Dx); Other polyneuropathy; Psychophysiological insomnia Start: 08-02-2024 End: 08-02-2024 ambulatory CHRIS SINGH Not Available Start: 07-28-2024 Registered Recurring Shaikh Izzy gunn MD Work Phone: [facility] Work Phone: Start: 07-28-2024 End: 07-28-2024 ambulatory Shaikh Aung FARFAN Work Phone: [facility] Work Phone: Start: 07-28-2024 End: 07-28-2024 Patient encounter procedure Shaikh Aung FARFAN Work Phone: [facility] Amb[facility] Work Phone: Start: 07-18-2024 End: 07-18-2024 Telephone encounter [facility] Comment on above: lacosamide (VIMPAT) Start: 06-27-2024 End: 06-27-2024 Orders Only Chris Jimeneztrick ASSISTANT HOUSEKEEPING MANAGER Work Phone: [facility] Comment on above: Moderate COPD (chron ic obstructive pulmonary disease) ([facility]/HCC) Start: 06-21-2024 End: 07-04-2024 Telephone encounter Casi [facility]ws [facility] Comment on above: Hospital Follow-up Start: 06-21-2024 End: 06-21-2024 ambulatory [facility] Start: 06-13-2024 End: 06-14-2024 Non-patient / Non-visit Shaikh Aung FARFAN Work Phone[facility] Work Phone: Start: 05-31-2024 End: 05-31-2024 Office [...] 05-23-2024 End: 05-23-2024 Bamboo flowsheet Chris Singh ASSISTANT HOUSEKEEPING MANAGER Work Phone: [facility] Start: 05-23-2024 End: 05-23-2024 Bamboo flowsheet Chris Singh ASSISTANT HOUSEKEEPING MANAGER Work Phone: [facility] Start: 05-23-2024 End: 05-23-2024 Office outpatient visit 15 minutes Chris Buchananpatrick ASSISTANT HOUSEKEEPING MANAGER Work Phone: [facility] Comment on above: Mass of left lung (P rimary Dx) Start: 05-23-2024 End: 05-23-2024 ambulatory CHRIS SINGH Not Available Start: 05-18-2024 End: 05-18-2024 ambulatory [facility] Start: 05-18-2024 End: 05-18-2024 ambulatory [facility] Start: 05-11-2024 End: 05-11-2024 ambulatory MD Shaikh Horan Work Phone: [facility] Work Phone: Start: 05-11-2024 End: 05-11-2024 Patient encounter procedure MD Shaikh Hoarn Work Phone: [facility] Work Phone: Start: 05-10-2024 End: 05-10-2024 Office outpatient new 45 minutes Javier Villanueva DO Work Phone: [facility] Comment on above: Carcinoma in situ of ascending colon Start: 05-10-2024 End: 05-10-2024 ambulatory JAVIER VILLANUEVA Not Available Start: 05-02-2024 End: 05-02-2024 Refill Chris Singh ASSISTANT HOUSEKEEPING MANAGER Work Phone: [facility] Comment on above: Gastroesophageal ref lux disease without esophagitis Start: 04-28-2024 ambulatory [facility] Start: 04-21-2024 End: 04-21-2024 Patient encounter procedure MD Shaikh Horan Work Phone: [facility] Scan [facility] Work Phone: Start: 04-21-2024 End: 04-21-2024 ambulatory MD Shaikh Horan Work Phone: [facility] Work Phone: Start: 04-06-2024 ambulatory MD Shaikh Mackey ad Work Phone: [facility] Work Phone: Start: 04-06-2024 Non-patient / Non-visit MD Reynaldo Horan Work Phone: [facility] Work Phone: Start: 03-25-2024 Non-patient / Non-visit MD Reynaldo Horan Work Phone: [facility] Gastroenterology Work Phone: Start: 03-25-2024 End: 03-25-2024 Admission to same day surgery center MD Shaikh Horan Work Phone: [facility]Dig[facility] Work Phone: Start: 03-25-2024 End: 03-25-2024 ambulatory MD Shaikh Horan Work Phone: [facility] Work Phone: Start: 03-24-2024 End: 03-24-2024 Bamboo flowsheet Chris Singh ASSISTANT HOUSEKEEPING MANAGER Work Phone: [facility] Start: 03-24-2024 End: 03-24-2024 Bamboo flowsheet Chris Singh ASSISTANT HOUSEKEEPING MANAGER Work Phone: [facility] Start: 03-24-2024 End: 03-24-2024 Office outpatient visit 15 minutes Chris Singh ASSISTANT HOUSEKEEPING MANAGER Work Phone: [facility] Comment on above: Primary hypertension (CMS/HCC) (Primary Dx); Hyperlipidemia, unspecified hyperlipidemia type (CMS/HCC) Start: 03-24-2024 End: 03-24-2024 ambulatory CHRIS SINGH Not Available Start: 03-23-2024 End: 03-23-2024 ambulatory [facility] Start: 03-15-2024 End: 03-17-2024 Clinisync Result Encounter [...] 03-09-2024 ambulatory MD Shaikh Horan Work Phone: [facility] Work Phone: Start: 03-09-2024 End: 03-09-2024 Departed Referred MD Shaikh Horan Work Phone: [facility] Path Spec [facility] Start: 03-07-2024 End: 03-07-2024 Refill Chris Singh ASSISTANT HOUSEKEEPING MANAGER Work Phone: [facility] Comment on above: Mixed hyperlipidemia (CMS/HCC) (Primary Dx); Hyperlipidemia, unspecified hyperlipidemia type (CMS/HCC) Start: 03-02-2024 End: 03-02-2024 Refill Chris Singh ASSISTANT HOUSEKEEPING MANAGER Work Phone: [facility] Comment on above: Moderate COPD (chron ic obstructive pulmonary disease) (CMS/HCC) (Primary Dx) Start: 03-01-2024 End: 03-01-2024 Clinisync Result Encounter Chris Singh ASSISTANT HOUSEKEEPING MANAGER Work Phone: [facility] Unsolicited Start: 03-01-2024 End: 03-01-2024 Clinisync Result Encounter Chris Singh ASSISTANT HOUSEKEEPING MANAGER Work Phone: [facility] Unsolicited Start: 03-01-2024 End: 03-01-2024 ambulatory SHAIKH AUNG Facility:[facility] Start: 03-01-2024 End: 03-01-2024 Patient encounter procedure Arden De Leon [facility] Start: 02-23-2024 Non-patient / Non-visit MD Reynaldo Horan Work Phone: [facility] Work Phone: Start: 02-22-2024 End: 02-22-2024 ambulatory CHRIS SAMANTHA Not Available Start: 02-19-2024 ambulatory SHAIKH AUNG Facility: [facility] Start: 01-04-2024 End: 01-04-2024 ambulatory SHAIKH AUNG Not Available Start: 12-30-2023 End: 12-30-2023 Patient encounter procedure MD Shaikh Horan Work Phone: [facility] Vascular Surgery Work Phone: Start: 12-30-2023 End: 12-30-2023 ambulatory MD Shaikh Horan Work Phone: [facility] Work Phone: Start: 12-27-2023 End: 12-27-2023 Emergency department patient visit MD Shaikh Horan Work Phone: [facility] Work Phone: Start: 11-09-2023 End: 11-09-2023 ambulatory SHAIKH AUNG Not Available Start: 08-20-2023 Orders Only Shaikh Aung FARFAN Work Phone: [facility] Comment on above: RLS (restless legs s yndrome) (Primary Dx); Moderate COPD (chronic obstructive pulmonary disease) ([facility]/HCC) Start: 07-09-2023 Patient encounter procedure Shaikh Aung FARFAN Work Phone: [facility] Start: 03-25-2023 End: 03-25-2023 ambulatory Nigel Valladares Other [employer] Other Start: 03-25-2023 Office outpatient vi sit 15 minutes Nigel Valldaares [facility] Vascular Surgery Start: 02-09-2023 End: 02-09-2023 ambulatory Cherelle Bautista Other [facility] [employer] Other Start: 02-09-2023 [facility] visit new patient Cherelle grissom [facility] Vascular Surgery Start: 01-07-2023 End: 01-07-2023 Patient encounter procedure Brigette Annette Lianet [facility] Start: 01-01-2023 End: 01-01-2023 Patient encounter procedure Brigette Annette Lianet [facility] Start: 12-29-2022 End: 12-29-2022 Patient encounter procedure Brigette A Lianet [facility] Start: 12-24-2022 End: 12-24-2022 Patient encounter procedure Brigetteanju Esparzametz [facility] Start: 12-24-2022 End: 02-19-2023 Pre-admission assessment Jorge MERCEDES [facility] Start: 12-24-2022 End: 12-24-2022 Patient encounter procedure Brigetteanju Martini [facility] Start: 11-11-2022 End: 11-11-2022 [...] encounter procedure Armando WESTON [facility] Start: 05-07-2022 End: 05-08-2022 ambulatory HURTADO H FAWWAD Facility:[facility]1 Procedures Date Procedure Procedure Detail Performing Clinician Start: 10-04-2024 Urine culture Mikhail rosenberg MD Work Phone: Start: 06-21-2024 Colonoscopy Chris serrano NP Work Phone: Start: 05-24-2024 [facility] SURGICAL PATHOLO [facility] REFERENCE LAB CONSULT Javier Villanueva DO Work Phone: Start: 04-21-2024 Carcinoembryonic antigen cea Mikhail Moon Comment on above: Result Comment: Demarco palencia tumor marker results determined by assays using different manufacturers or methods may not be comparable. [facility] correctional program officer and method: ANTIONE UNICEL DXI, 2 SITE IMMUNOENZYMATIC ?SANDWICH? ASSAY. PERFORMED BY: [place] [address] PATHOLOGIST SOCIAL MEDIA ANALYST JENNIFER ALANIZ M.D. Performed By: #### C #### [address] Start: 04-21-2024 Computed tomography of abdomen [...] ALL CBC WITH AUTO DIFF Chris Singh ASSISTANT HOUSEKEEPING MANAGER Work Phone: Start: 12-30-2023 US scan of [...] on above: Result Comment: PERF ORMED BY: [facility] [address] [place] [address] PATHOLOGIST SOCIAL MEDIA ANALYST JENNIFER ALANIZ M.D. Start: 12-27-2023 CT angiography [...] Screening for malign ant neoplasm of colon [facility] Start: 03-25-2034 Screening for malign ant neoplasm of colon [facility] Start: 04-12-2026 Screening for malign ant neoplasm of colon [facility] Start: 08-02-2025 Medicare Annual Well ness (AWV) Medicare Annual Wellness (AWV) [facility] Start: 06-15-2025 Adult BMI Screening Adult BMI Screen ing [facility] Start: 06-15-2025 Tobacco Screening Tobacco Screening [facility] Start: 03-13-2025 Influenza vaccination Influenz a Vaccine (Season Ended) [facility] Start: 01-26-2025 End: 01-26-2025 Patient encounter procedure 01/26/2025 10:30 AM EDT Office Visit [facility] [address] [place] [phone] Wendy Burden NP [address] [place] [address] [facility] Start: 11-15-2024 End: 11-15-2025 Lipid 1996 panel - Serum or Plasma Lipid panel Lab Routine Mixed hyperlipidemia (CMS/HCC) Expected: 11/15/2024 (Approximate), Expires: 11/15/2025 [facility] Work Phone: Comment on above: Expected: 11/15/2024 (Approximate), Expires: 11/15/2025 Start: 10-27-2024 End: 12-27-2025 MG Breast - bilateral Screening Bilateral screening mammogram Imaging Routine Screening mammogram for breast cancer Expected: 10/27/2024 (Approximate), Expires: 12/27/2025 [facility] Work Phone: Comment on above: Expected: 10/27/2024 (Approximate), Expires: 12/27/2025 Start: 10-24-2024 End: 10-24-2024 Patient encounter procedure 10/24/2024 9:20 AM EDT Office Visit [facility] [address] [place] [address] Kianna Roman PA [address] [place] [address] [facility] Start: 10-04-2024 Urine culture [facility] Start: 10-04-2024 Bacteria identified in Urine by Culture Urine Culture [facility] Start: 09-26-2024 End: 09-26-2024 Patient encounter procedure [facility] Comment on above: Arrived Start: 09-13-2024 End: 09-13-2024 Patient encounter procedure 09/13/2024 10:00 AM EST Office Visit [facility] [address] [place] [phone] Chris Singh NP [address] [place] [phone] [facility] Start: 08-02-2024 End: 08-02-2024 Patient encounter procedure [facility] Comment on above: Arrived Start: 08-01-2024 End: 08-01-2024 Patient encounter procedure 08/01/2024 10:30 AM EST Office Visit [facility] [address] [place] [address] Chris Singh NP [address] [place] [address] [facility] Start: 07-09-2024 Medicare Annual Well ness (AWV) Medicare Annual Wellness (AWV) [facility] Start: 06-29-2024 End: 06-29-2024 Patient encounter procedure 06/29/2024 9:45 AM EST Office [facility] [address] [place] [id number] Javier Villanueva DO [address] [place], [place] [id number] [facility] Start: 06-23-2024 End: 03-24-2025 Lipid 1996 panel - Serum or Plasma Lipid panel Lab Routine Hyperlipidemia, unspecified hyperlipidemia type (CMS/HCC) Expected: 06/23/2024 (Approximate), Expires: 03/24/2025 [facility] Work Phone: Comment on above: Expected: 06/23/2024 (Approximate), Expires: 03/24/2025 Start: 06-23-2024 End: 06-23-2024 Patient encounter procedure 06/23/2024 10:00 AM EST Office Visit [facility] [address] [place] [address] Chris Singh, CLOTILDE [address] [place] [address] [facility] Start: 05-31-2024 End: 05-31-2024 Patient encounter procedure 05/31/2024 10:30 AM EST [facility] [address] [place] [address] Javier Villanueva, [address] [place] [address] [facility] [address] [facility] Start: 05-03-2024 End: 05-03-2024 Patient encounter procedure 05/03/2024 2:00 PM EDT Consult [facility] [address] [place] [phone] Javier Villanueva, [address] [place], [place] [id number] [facility] Start: 04-06-2024 Patient referral [facility] Work Phone: Start: 03-25-2024 [facility] Start: 03-24-2024 End: 03-24-2024 Patient encounter procedure [facility] Comment on above: Arrived Start: 03-13-2024 Influenza vaccination N [facility] Start: 01-10-2024 Influenza vaccination Influenza Vacc ine (#1) [facility] Comment on above: Postponed from 03/13 (Patient Refused) Start: 12-27-2023 Bacteria identified in Blood by Culture [facility] Start: 12-27-2023 Bacteria identified in Urine by Culture [facility] Start: 12-27-2023 Blood culture for bacteria, including anaerobic screen Blood Culture [facility] Start: 10-08-2023 End: 10-08-2023 Patient encounter procedure 10/08/2023 2:00 PM EDT Office Visit [facility] [address] [place] [phone] Shaikh Horan MD [address] [place] [phone] [facility] Start: 07-03-2023 Screening for malign ant neoplasm of breast Mammogram [facility] Start: 2017 Fall Risk Screening Fall Risk Screen ing [facility] Start: 2002 Administration of varicella zoster vaccine Zoster (Shingles) Vaccine (1 of 2) [facility] Start: 1971 DTaP,Tdap and Td Vaccines (1 - Tdap) DTaP,Tdap and Td Vaccines (1 - Tdap) [facility] Start: 1970 Adult BMI Follow Up Plan Adult BMI F ollow Up Plan [facility] Start: 1964 Depression Screening Depression Scre ening [facility] Start: 1952 Screening for malign ant neoplasm of colon [facility] CT Chest WO contrast [facility] CT with contrast for radiotherapy planning [facility] Patient Education [facility] Work Phone: Patient referral [facility] Work Phone: US Thoracic and abdominal aorta [facility] Immunizations Immunization Date Immunization Notes Care Provider Fa cility 07-09-2022 pneumococcal 20-ananya nt conjugate vaccine Brigette Lianet [facility] 07-03-2022 pneumococcal conjuga te vaccine, 13 valent Brigette Lianet [facility] Payers Date Payer Category Payer Medicare [id number] 2024 Medicare HMO [employer] MEDICARE [id number] 2023 Medicare (Managed Care) [id number] 2023 Private Health Insurance [id number] 2023 Private Health Insurance [id number] 2022 Unknown [employer] [facility] [id number] 2022-Present [address] [place] [phone] [id number]. 2.7.3.957852.315 2020 Unknown [id number] 2013 Medicare [id number]. 1.13.693. 2.7.3.094154.315 2013 Medicare [id number] 1959 Self-pay 1952 Unknown [id number] 2.16.840.1.916225.3.579. 2.593 1952 Unknown [id number] 2.16.840.1.594416.3.579. 2.593 1952 Unknown [id number] 2.16.840.1.033924.3.579. 2.593 1952 Unknown [id number] 2.16.840.1.190132.3.579. 2.593 1952 Unknown [id number] 2.16.840.1.974291.3.579. 2.593 1952 Unknown [id number] 2.16.840.1.257950.3.579. 2.593 1952 Unknown [id number] 2.16.840.1.079782.3.579. 2.593 1952 Unknown [id number] 2.16.840.1.701292.3.579. 2.593 1952 Unknown [id number] 2.16.840.1.298272.3.579. 2.727 1952 Unknown [id number] 2.16.840.1.496397.3.579. 2.727 1952 Unknown [id number] 2.16.840.1.075572.3.579. 2.1259 1952 Unknown [id number] 2.16.840.1.434903.3.579. 2.1259 1952 Unknown [id number] 2.16.840.1.190643.3.579. 2.1259 1952 Unknown [id number] 2.16.840.1.013801.3.579. 2.1259 1952 Unknown [id number] 2.16.840.1.226533.3.579. 2.1259 1952 Unknown [id number] 2.16.840.1.158521.3.579. 2.1259 1952 Unknown [id number] 2.16.840.1.884611.3.579. 2.9 1952 Unknown [id number] 2.16.840.1.140776.3.579. 2.1258 1952 Unknown [id number] 2.16.840.1.429546.3.579. 2.1258 1952 Unknown [id number] 2.16.840.1.260587.3.579. 2.1258 1952 Unknown [id number] 2.16.840.1.163495.3.579. 2.1259 Medicare [employer] [facility] P[facility] [id number] Unknown [id number] 2.16.840.1.289608.3.579. 2.531 Unknown [id number] 2.16.840.1.177677.3.579. 2.531 Unknown [id number] 2.16.840.1.368052.3.579. 2.531 Unknown [id number] 2.16.840.1.234827.3.579. 2.531 Unknown [id number] 2.16.840.1.579425.3.579. 2.531 Unknown [id number] 2.16.840.1.396350.3.579. 2.531 Unknown [id number] 2.16.840.1.490782.3.579. 2.531 Unknown [id number] 2.16.840.1.655723.3.579. 2.531 Social History Date Type Detail Facility Tobacco smoking status Execu t[facility] Start: 07-09-2023 End: 12-08-2023 Sex Assigned At Female [facility] Start: 12-24-2022 Tobacco smoking status Heavy t obacco smoker (finding) [facility] Tobacco smoking status Never [facility] Start: 07-09-2023 Tobacco smoking stat us [facility] Smokes tobacco daily [facility] End: 12-28-2023 History of tobacco use Cigarette Smoker [facility] Start: 07-09-2023 End: 12-08-2023 Cigarettes smoked current (pack per day) - Reported 1 [facility] Start: 07-09-2023 End: 01-04-2024 Tobacco use and exposure Smokeless tobacco non-user [facility] Start: 07-09-2023 End: 10-27-2024 Alcohol intake Lifetime non-drinker (finding) [facility] Start: 1950 Sex Assigned At Not on file [facility] Start: 1950 Sex Assigned At Female F [facility] Start: 12-27-2023 End: 12-28-2023 Tobacco smoking status NHIS Smoker (finding) [facility] Start: 03-25-2024 End: 07-28-2024 Tobacco smoking status [facility] Ex-smoker (finding) [facility] History of tobacco use Passive [...] Start: 06-15-2024 Alcoholic beverage intake Ex-drinker (finding) [facility] Start: 06-13-2024 End: 11-14-2024 Sex Female (finding) [employer] [facility] Goals Date Patient Goal Desired Activity /State Personal health goal Comment on above: Formatting of this n ote might be different from the original. Evaluation of progress towards goal: Significant other hopes patient will be able to return home Functional Status Date Assessment Result Facility 12-24-2022 Functional Status N/A [facility] Clinical Notes 06-09-2022 to 10-27-2024 Wendy Burden NP - 10/27/2024 4:59 PM Karthik Burden NP - 10/27/2024 10:30 AM Karthik Burden, CLOTILDE - 10/27/2024 6:54 AM Karthik Burden NP - 10/27/2024 6:46 AM EDTPatient Instructions Note Date & Type Note Facility 10-27-2024 History of Presen t illness Narrative Associated Problem(s): Adenocarcinoma of left lung (CMS/HCC) Continue with oncology Images from the original note were not included. Bhupendra Rubi is a 74 y.o. female presents with chief complaint of No chief complaint on file. HPI: Here for hospital/ long term fu: [facility] ER for CVA 10/04/24, then to [facility] for rehab See notes for hospital notes etc. She still continues to have intermittent dizziness, she is frustrated as every one keeps telling her they can't find anything wrong to her sxs. She does not want home health and will not take iron, as it causes stool discoloration She denies CP/dyspnea, no swelling in legs SUBJECTIVE: MEDICATIONS: Current Outpatient Medications Medication Instructions albuterol HFA 90 mcg/act inhaler 2 puffs, Inhalation, Every 4 hours PRN apixaban (ELIQUIS) 5 mg, Oral, 2 times daily atorvastatin (LIPITOR) 80 mg, Oral, Daily Pzivupy-Mwyldntsurg-Jhxhtuiyta (Breztri Aerosphere) 160-9-4.8 MCG/ACT aerosol 2 puffs, Inhalation, 2 times daily gabapentin (NEURONTIN) 300 mg, Oral, 3 times daily lacosamide (VIMPAT) 100 mg, Oral, 2 times daily lamoTRIgine (LAMICTAL) 150 mg, Oral, Daily RT losartan (COZAAR) 25 mg, Oral, Daily traZODone (DESYREL) 100 mg, Oral, Nightly ALLERGIES: No Known Allergies REVIEW OF SYMPTOMS: Review of Systems Constitutional: Negative for appetite change, chills and fever. HENT: Negative for congestion, ear pain and sore throat. Eyes: Negative for pain, discharge, redness and visual disturbance. Respiratory: Negative for cough, shortness of breath and wheezing. Cardiovascular: Negative for chest pain, palpitations and leg swelling. Gastrointestinal: Negative for abdominal pain, blood in stool, constipation, diarrhea, nausea and vomiting. Genitourinary: Negative for difficulty urinating, dysuria and frequency. Musculoskeletal: Positive for arthralgias. Negative for back pain, joint swelling and myalgias. Skin: Negative for rash and wound. Neurological: Positive for dizziness and weakness. Negative for tremors, seizures, syncope and headaches. Psychiatric/Behavioral: Negative for behavioral problems, self-injury and suicidal ideas. The patient is nervous/anxious. Hematological: Does not bruise/bleed easily. Endocrine: Negative for polydipsia, polyphagia and polyuria. Allergic/Immunologic: Negative for environmental allergies and food allergies. PAST MEDICAL HISTORY Past Medical History: Diagnosis Date Abdominal pain [...] HYSTERECTOMY ROTATOR CUFF REPAIR Bilateral TUBAL LIGATION family history includes Cancer in her mother and mother's sister; Other cancer in her sister; Stroke in her son. OBJECTIVE: Visit Vitals BP 112/78 (BP Location: Left arm, Patient Position: Sitting) Pulse 96 Temp 98.5 F (Temporal) Resp 20 Wt 153 lb 6.4 oz SpO2 (!) 89% BMI 28.06 kg/m OB Status Hysterectomy Smoking Status Former BSA 1.74 m Physical Exam Vitals and nursing note reviewed. Constitutional: General: She is not in acute distress. Appearance: Normal appearance. HENT: Head: Normocephalic and atraumatic. Right Ear: Tympanic membrane, ear canal and external ear normal. Left Ear: Tympanic membrane, ear canal and external ear normal. Nose: Nose normal. No congestion or rhinorrhea. Mouth/Throat: Mouth: Mucous membranes are moist. Pharynx: No oropharyngeal exudate or posterior oropharyngeal erythema. Eyes: Extraocular Movements: Extraocular movements intact. Conjunctiva/sclera: Conjunctivae normal. Comments: +nystagmus Neck: Vascular: No carotid bruit. Cardiovascular: Rate and Rhythm: Normal rate and regular rhythm. Pulses: Normal pulses. Heart sounds: Normal heart sounds. No murmur heard. Pulmonary: Effort: Pulmonary effort is normal. Breath sounds: Normal breath sounds. No wheezing or rhonchi. Abdominal: General: Bowel sounds are normal. There is no distension. Palpations: Abdomen is soft. There is no mass. Tenderness: There is no abdominal tenderness. Musculoskeletal: Cervical back: Normal range of motion and neck supple. Right lower leg: No edema. Left lower leg: No edema. Comments: Weakness to RUE Is able to abduct her right shoulder, however decreased ROM to right FA Gait unsteady Lymphadenopathy: Cervical: No cervical adenopathy. Skin: General: Skin is warm and dry. Capillary Refill: Capillary refill takes 2 to 3 seconds. Findings: No rash. Neurological: General: No focal deficit present. Mental Status: She is alert and oriented to person, place, and time. Motor: Weakness present. Gait: Gait abnormal. Deep Tendon Reflexes: Reflexes normal. Psychiatric: Mood and Affect: Mood normal. Behavior: Behavior normal. Thought Content: Thought content normal. Judgment: Judgment normal. ASSESSMENT AND PLAN: Follow up in about 3 months (around 01/26/2025) for Recheck. Problem List Items Addressed This Visit Hyperlipidemia (CMS/HCC) On statin therapy Check labs yearly and prn dose changes Hypertension (CMS/HCC) Does not take any medications for this, at closer look, she was taking losartan 25mg daily, however I think that it may have been omitted when in hospital, so I will re order, as I do not think it should be discontinued Relevant Medications losartan (Cozaar) 25 MG tablet Peripheral polyneuropathy Follows with Neurology for this Current meds: lacosamide, gabapentin Tobacco dependency The patient has been advised of the risks of continued smoking: stroke, IA, all forms of cancer, lung disease, and . Options for quitting smoking include: cold turkey, hypnosis, acupuncture, nicotine replacement meds (gum, lozenges, and patches), Buproprion, and Varenicline. At this time pt is encouraged to evaluate their goals for wanting to quit smoking, and reach out to provider when ready to start this process Screening mammogram for breast cancer Relevant Orders Bilateral screening mammogram Malignant neoplasm of unspecified part of left bronchus or lung (CMS/HCC) Adenocarcinoma of left lung (CMS/HCC) Continue with oncology CVA (cerebral vascular accident) (CMS/HCC) - Primary recent hospitalization at [facility] around 10/04/24, was also sent [...] she changed her mind to let me know Relevant Medications apixaban (Eliquis) 5 MG tablet atorvastatin (Lipitor) 80 MG tablet Associated Problem(s): Hypertension (CMS/HCC) Does not take any medications for this, at closer look, she was taking losartan 25mg daily, however I think that it may have been omitted when in hospital, so I will re order, as I do not think it should be discontinued Associated Problem(s): Peripheral polyneuropathy Follows with Neurology for this Current meds: lacosamide, gabapentin Associated Problem(s): Tobacco dependency The patient has been advised of the risks of continued smoking: stroke, IA, all forms of cancer, lung disease, and . Options for quitting smoking include: cold turkey, hypnosis, acupuncture, nicotine replacement meds (gum, lozenges, and patches), Buproprion, and Varenicline. At this time pt is encouraged to evaluate their goals for wanting to quit smoking, and reach out to provider when ready to start this process Associated Problem(s): Hyperlipidemia (CMS/HCC) On statin therapy Check labs yearly and prn dose changes Associated Problem(s): CVA (cerebral vascular accident) (CMS/HCC) recent hospitalization at [facility] around 10/04/24, was also sent [...] she changed her mind to let me know documented in this encounter [facility] 10-27-2024 Instructions Wendy Burden NP - 10/27/2024 10:30 AM EDT Mammogram: [facility], they will call to schedule you Please call Neurology office to get an appointment documented in this encounter [facility] 09-26-2024 History of Presen t illness Narrative Images from the original note [...] Review Audit Reviewed by Yakelin Powell MA (Architectural Inspector) on 09/26/24 at 1022 Medication Order Taking? Sig Documenting Provider Last Dose Status albuterol HFA 90 mcg/act inhaler [id number] Inhale 2 puffs every 4 (four) hours if needed for wheezing or shortness of breath Shaikh Aung MD Active atorvastatin (Lipitor) 80 MG tablet [id number] Take 1 tablet (80 mg) by mouth Daily Chris Singh NP 08/02/24 2359 Fpivuat-Pdpkxbluagt-Ztsjhxzckv (Breztri Aerosphere) 160-9-4.8 MCG/ACT aerosol [id number] Inhale 2 puffs in the morning and 2 puffs before bedtime. Chris Singh NP Active ezetimibe (Zetia) 10 MG tablet [id number] Take 1 tablet (10 mg) by mouth in the morning. Shaikh Aung MD 08/02/24 2359 gabapentin (Neurontin) 300 MG capsule [id number] Take 1 capsule (300 mg) by mouth in the morning and 1 capsule (300 mg) in the evening and 1 capsule (300 mg) before bedtime. Chris Singh NP Active lacosamide (Vimpat) 150 mg tablet tablet [id number] Take 150 mg by mouth in the morning and 150 mg in the evening. Active lamoTRIgine (LaMICtal) 100 MG tablet [id number] Take 100 mg by mouth in the morning. Do not start before July 28, 2024. Active losartan (Cozaar) 25 MG tablet [id number] Take 25 mg by mouth in the morning. Active rOPINIRole (Requip) 0.5 MG tablet [id number] Take 1 tablet (0.5 mg) by mouth at bedtime Shaikh Aung MD Active traZODone (Desyrel) 100 MG tablet [id number] Take 1 tablet (100 mg) by mouth [...] pin prick in the right side. Coordination Aghimo-un-rtij, rapid alternating movements and gvga-sp-gobg normal bilaterally without dysmetria. Gait Normal casual, toe, heel and tandem gait. Motor Examination RUE Strength deltoid, biceps, triceps, wrist extensors, wrist extensors, wrist flexor, international account representative strength 4/5. LUE Strength deltoid, biceps, triceps, wrist extensors, wrist extensors, wrist flexor, international account representative strength 5/5. RLE Strength illopsoas, quadriceps, tibialis [...] seizure-like episode in June and went to [facility] and then transferred to [place]. The episode that she had presented as [...] in 4 weeks documented in this encounter [facility] 08-02-2024 History of Presen t illness Narrative Images from the original note [...] Review Audit Reviewed by Lashaun Reynaga MA (Architectural Inspector) on 08/02/24 at 1158 Medication Order Taking? Sig Documenting Provider Last Dose Status albuterol HFA 90 mcg/act inhaler [id number] Inhale 2 puffs every 4 (four) hours if needed for wheezing or shortness of breath Shaikh Aung MD Active atorvastatin (Lipitor) 80 MG tablet [id number] Take 1 tablet (80 mg) by mouth Daily Chris Singh NP Active Nmaounj-Pmbludhqikv-Ccdpccylde (Breztri Aerosphere) 160-9-4.8 MCG/ACT aerosol [id number] Inhale 2 puffs in the morning and 2 puffs before bedtime. Chris Singh NP Active ezetimibe (Zetia) 10 MG tablet [id number] Take 1 tablet (10 mg) by mouth in the morning. Shaikh Aung MD Active Discontinued 08/02/24 1054 Discontinued 08/02/24 1118 gabapentin (Neurontin) 300 MG capsule [id number] Take 1 capsule (300 mg) by mouth in the morning and 1 capsule (300 mg) in the evening and 1 capsule (300 mg) before bedtime. Chris Singh NP Active lacosamide (Vimpat) 150 mg tablet tablet [id number] Take 150 mg by mouth in the morning and 150 mg in the evening. Active lamoTRIgine (LaMICtal) 100 MG tablet [id number] Take 100 mg by mouth in the morning. Do not start before July 28, 2024. Active Discontinued 08/02/24 1055 Discontinued 08/02/24 1055 losartan (Cozaar) 25 MG tablet [id number] Take 25 mg by mouth in the morning. Active Discontinued 08/02/24 1056 rOPINIRole (Requip) 0.5 MG tablet [id number] Take 1 tablet (0.5 mg) by mouth at bedtime Shaikh Aung MD 05/23/24 2359 Discontinued 08/02/24 1118 traZODone (Desyrel) 100 MG tablet [id number] Take 1 tablet (100 mg) by mouth at bedtime Chris Singh NP Active Discontinued 08/02/24 1057 HPI HPI Ms. Rubi is a 74 year old female who I was asked to see in neurological consultation at the request of Dr. Lundberg for seizures. She states that she has had 2 seizures. She was [place] [facility] and was transferred to [place]. She admits LOC and body shaking. She [...] pin prick in the right side. Coordination Skvlub-ko-kgnm, rapid alternating movements and ilyi-ck-gxkh normal bilaterally without dysmetria. Gait Normal casual, toe, heel and tandem gait. Motor Examination RUE Strength deltoid, biceps, triceps, wrist extensors, wrist extensors, wrist flexor, international account representative strength 4/5. LUE Strength deltoid, biceps, triceps, wrist extensors, wrist extensors, wrist flexor, international account representative strength 5/5. RLE Strength illopsoas, quadriceps, tibialis [...] seizure-like episode in June and went to [facility] and then transferred to [place]. The episode that she had presented as [...] options. I have reviewed the records from [facility] and golden Continue Vimpat 150 mg bid for seizure [...] effects from medications. documented in this encounter [facility] 08-02-2024 History of Presen t illness Narrative Subjective : Chief Complaint: Bhupendra [...] mg) by mouth Daily 90 tablet 0 Xvtnecy-Wlezxmpxytx-Rasotxdgus (Breztri Aerosphere) 160-9-4.8 MCG/ACT aerosol Inhale 2 [...] Do you have a medical power of gi asst?: Yes Who is your medical power of gi asst?: charito son Objective : BP 128/76 Pulse [...] August 02, 2024 documented in this encounter [facility] 07-28-2024 Evaluation note Diagnosis Onset Date Resolution Non-small cell lung cancer acute July 28 1:45pm [facility] Work Phone: [phone]) 108-622901-06-2025 Miscellaneous Notes* Telephone Encounter - Lay Chacon - 07/18/2024 2:17 PM EST Henok from [facility] called to request a refill of the patient's lacosamide (VIMPAT) 150 mg tablet. Cloth Piecer informed her that the prescription was sent on 06/17/2024 with 3 refills to [facility] Ellen voiced understanding and stated she would inform the patient [facility] Telephone encounter Note* Telephone Encounter - Lay Chacon - 07/18/2024 2:17 PM EST Henok from [facility] called to request a refill of the patient's lacosamide (VIMPAT) 150 mg tablet. Cloth Piecer informed her that the prescription was sent on 06/17/2024 with 3 refills to [facility] Ellen voiced understanding and stated she would inform the patient [facility]12-10-2024 NotePatient: Bhupendra Rubi Procedure Summary Date: 06/21/24 Room / Location: [facility] Anesthesia Start: 1343 Anesthesia Stop: 1444 Procedure: DIAGNOSTIC COLONOSCOPY Diagnosis: Polyp of ascending colon, unspecified type Colonic mass Scheduled Providers: Jacki Rivas MD; MENDEZ Guzman; Florinda Richard MD Responsible Provider: Jacki Rivas MD Anesthesia [...] PACU per anesthesia protocol. No notable events documented.[facility]12-10-2024 Note Airway Date/Time: 06/21/2024 1:49 PM Urgency: elective General Information and Staff Patient location during procedure: OR Anesthesiologist: Jacki Rivas MD Resident/LADDERMAN/CAA: MENDEZ Guzman Performed: resident/LADDERMAN/CAA Indications and Patient Condition Indications for airway [...] approach: 1 [facility] of other [facility]: [facility] NotePatient: Bhupendra Rubi Procedure Information Date/Time: 06/21/24 1200 Scheduled providers: Jacki Rivas MD; MENDEZ Guzman; Florinda Richard MD Procedure: DIAGNOSTIC COLONOSCOPY Location: [facility] Past Medical History: Diagnosis Date Anxiety [...] (+) Moderate COPD (chronic obstructive pulmonary disease) ([facility]/HCC) Clinical information reviewed: Tobacco Allergies Meds Med Hx Surg Hx Fam Hx Soc Hx Physical Exam Airway Mallampati: II TM distance: >3 FB Neck ROM: full Cardiovascular - normal exam Dental (+) upper dentures, lower dentures Pulmonary - normal exam Abdominal - normal exam Other findings: RUE weakness s/p previous CVA Patient denies any seizure activity since being treated last week at [facility] Anesthesia Plan ASA 3 general (Due to new onset seizure like activity, spoke with neurologist who took care of patient at [facility]. Recommendation by neurology was to give [...] neuro events in perioperative period. [facility] Note Patient: Bhupendra Rubi Procedure Summary Date: 06/21/24 Room / Location: [facility] Anesthesia Start: 1343 Anesthesia Stop: 1444 Procedure: DIAGNOSTIC COLONOSCOPY Diagnosis: Polyp of ascending colon, unspecified type Colonic mass Scheduled Providers: Jacki Rivas MD; MENDEZ Guzman; Florinda Richard MD Responsible Provider: Jacki Rivas MD Anesthesia Type: general ASA Status: 3 Anesthesia Post Transport Note Transport to: PACU O2 Route: room air Patient Monitor: direct observation Transport: uneventful [facility] Miscellaneous Notes* Telephone Encounter - Casi Fitzgerald - 06/21/2024 8:11 AM EST ----- Message from Bailey Alba MD sent at 06/17/2024 2:34 PM EST ----- Please schedule this patient for a follow-up appointment in the resident clinic in 4-6 weeks of discharge Diagnosis: New onset seizures * Telephone Encounter - Kateryna Covarrubias - 06/21/2024 8:11 AM EST 1st attempt: Cloth Piecer contacted patient and left a voicemail offering to schedule in with our clinic for a hospital follow up appointment as we have received a provider message requesting to see patient in office. Cloth Piecer provided callback number for scheduling or to address any questions or concerns they may have. * Telephone Encounter - Ange Solorzano - 06/21/2024 8:11 AM EST 2nd attempt: Left message for patient [facility] Telephone encounter Note* Telephone Encounter - Casi Fitzgerald - 06/21/2024 8:11 AM EST ----- Message from Bailey Alba MD sent at 06/17/2024 2:34 PM EST ----- Please schedule this patient for a follow-up appointment in the resident clinic in 4-6 weeks of discharge Diagnosis: New onset seizures [facility]12-10-2024 Telephone encounter Note* Telephone Encounter - Kateryna Covarrubias - 06/21/2024 8:11 AM EST 1st attempt: Cloth Piecer contacted patient and left a voicemail offering to schedule in with our clinic for a hospital follow up appointment as we have received a provider message requesting to see patient in office. Cloth Piecer provided callback number for scheduling or to address any questions or concerns they may have. [facility]12-10-2024 Telephone encounter Note* Telephone Encounter - Ange Solorzano - 06/21/2024 8:11 AM EST 2nd attempt: Left message for patient [facility]11-19-2024 History of Present illness Narrative* Javier Villanueva DO - 05/31/2024 10:30 AM EST Images from the original note were not included. Bhupendra Klineley 1950 Bhupendra Ruib is a 73 y.o. female presents with chief complaint of Follow-up HPI: HPI patient had her lung biopsy. She is waiting for results on that. She is scheduled to have her repeat colonoscopy on June 21. She is having that done in [place]. She has not having any abdominal pain. She has not having any blood in his stool. SUBJECTIVE: MEDICATIONS: ALLERGIES Current Outpatient Medications Medication Instructions albuterol HFA 90 mcg/act inhaler 2 puffs, Inhalation, Every 4 hours PRN atorvastatin (LIPITOR) 80 mg, Oral, Daily Kaeqinp-Zniyroaopcl-Aopitcxavu (Breztri Aerosphere) 160-9-4.8 MCG/ACT aerosol 2 puffs, [...] Infrarenal abdominal aortic aneurysm (AAA) without rupture ([facility]/HCC) CT chest done in 11/02 by Tamera [...] colon, Dr. Moon had felt this was completelyremoved. I had this sent for 2nd opinion at [facility] and they did not identify any [...] information for her to take to her gastroen terologist and I asked her to have them contact me with the results from the procedure. I will see her back a week after her colonoscopy. [facility] in [facility] [id number] History of Present illness Narrative* Chris Singh NP - 05/31/2024 9:44 AM ESTAssociated Problem(s): Mass of left lung Bronchoscopy done: PET SCAN indicated advancing growth of lung nodules; Had EBUS. Following with Dr. Lundberg- Ratna closely. Referral sent to GI: Increased activity into ascending colon on PET scan. Had colonoscopy, is scheduled for additional. Pathology reports pending. * Chris Singh NP - 05/23/2024 10:30 AM EST Images from the original note were not included. Subjective Patient ID: Bhupendra Rubi is a 73 y.o. female who presents for Follow-up. HPI Following with Frank Lundberg GI- Dr. Mohr General Surgery- Dr. Villanueva Pulmonology- Dr. Ngoc Kirby is here today for a routine follow up. She recently was referred to felicianoonc, pulmonary, and gen surgery for lung mass. 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 Recently had EBUS at [facility], is scheduled for colonoscopy as well. Is following closely with allspecialists. There is pending pathology. She reports she [...] Neurological: Negative for dizziness, tremors, syncope, weakness, light- headedness and headaches. Psychiatric/Behavioral: Negative for decreased concentration and suicidal ideas. The patient is notnervous/anxious. Hematological: Does not bruise/bleed easily. Endocrine: Negative [...] additional. Pathology reports pending. documented in this [facility]11-11-2024 Instructions* Patient Instructions* Chris Singh NP - 05/23/2024 10:30 AM EST Follow up with Dr. Lundberg's office this week. Have colonoscopy scheduled. Call if you need anything! documented in this [facility]11-08-2024 NoteAddendum created 05/20/24 1439 by Marilia Pennington MD [facility]11-06-2024 Note Patient: Bhupendra Rubi Procedure Summary Date: 05/18/24 Room / Location: [facility] Main Operating Room Anesthesia Start: 1251 Anesthesia [...] PACU per anesthesia protocol. No notable events documented.[facility]11-06-2024 Note Patient's significant other at bedside. He states he was not updated post procedure by Dr. Warren or his fellow Dr. Hamlin. RN notified physician of family's request for update and chest xray was completed, but needs to be read prior to discharge.[facility]11-06-2024 NoteAirway Date/Time: 05/18/2024 12:57 PM Urgency: elective General Information and Staff Patient location during procedure: OR Anesthesiologist: Micky Hilliard MD Resident/LADDERMAN/CAA: Marilia Pennington MD Performed: resident/LADDERMAN/CAA Indications and Patient Condition Indications for airway [...] approach: 1 Number of other approaches [facility]: [facility] NotePatient: Bhupendra Rubi Procedure Information Date/Time: 05/18/24 1230 Scheduled providers: Diana Warren MD; Micky Hilliard MD Procedure: BRONCHOSCOPY Location: [facility] Main Operating Room Relevant Problems Anesthesia Denies [...] products. Plan discussed with resident. Additional 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 Do not wear perfume, make-up, nail sri lankan, or lotions on the day of your [...] need to make any changes, please call [phone]. Notify your surgeon if you develop any illness such as a cold, cough, fever, sore throat or vomiting between now and your surgery. Thank you for entrusting us with your care. [facility] Surgical [facility]St[facility]10[facility] Evaluation note* Diagnosis Onset Date Resolution Status Admit Date High grade dysplasia in colonic adenoma acute May 11 1:25pm History of hypotension acute Oc tober 2023 1:25pm Mass of upper lobe of left lung acute May 11 1:25pm Non-small cell lung cancer acute July 28, 2024 1:45pm [facility] Work Phone: [phone] History of Present illness Narrative* Javier Villanueva, DO - 05/10/2024 2:30 PM EDT Images from the original note were not included. Bhupendra Rubi 1950 Bhupendra Rubi is a 73 y.o. female presents with chief complaint of Consult (Colon polyp ref'd by Asaad) HPI: HPI Patient is not exactly sure [...] PRN atorvastatin (LIPITOR) 80 mg, Oral, Daily Iyitthq-Xefcjlmxjyy-Efhuhqegtk (Breztri Aerosphere) 160-9-4.8 MCG/ACT aerosol 2 puffs, [...] invasive adenocarcinoma . I Communicated with her occupational health physiotherapist, he felt this was completely removed. I am sending her pathology to [facility] for 2nd opinion. Patient is having her lung mass worked up with a biopsy in [place] and is supposed to get a 2nd [...] I discussed that with Dr. Moon her occupational health physiotherapist. documented in this encounterL[facility] [id number] Note Attestation signed by Diana Warren MD [...] Age: 73 y.o. : 1950 Account No.: [id number] Referring physician: Dr. Lundberg Chief complaint: Lung [...] was initiated by the patient and conducted hiu-josq-cv-face with use of audio-only real time telephone [...] no pruritus. Physical examination (more content not included)...[facility]09-13-2024 History of Present illness Narrative* Chris [...] them to next visit. documented in this [facility]09-13-2024 Procedure [facility]09-12-2024 Instructions* Patient Instructions* Chris Singh NP - 03/24/2024 11:30 AM EDT Keep all appointments with specialists as scheduled Call if you need anything! documented in this [facility]09-13-2023 Evaluation note* Encounter Date Diagnosis Assessment Notes [...] were addressed she understands agrees the plan. [facility] 07-31-2023 Evaluation note* Encounter Date Diagnosis Assessment Notes Treatment Notes Treatment Clinical Notes Jan, Abdominal aortic aneurysm (AAA) without rupture, unspecified part (ICD-10 - I71.40) We reviewed her abdominal CT imaging from outside facility at the [facility] which shows AAA 3.4 cm in [...] her risk and is unmotivated to quit. [facility] Other 06-14-2023 Hospital Discharge instructions Patient Education [...] Follow these instructions at home: Medicines Take jhhb-reh-qzzpgpf and prescription medicines only as told by [...] Watch your condition for any changes. Take yiwv-uqy-fjhcmqf and prescription medicines only as told by [...] provider. Document Revised: 08/17/2020 Document Reviewed: 11/07/2019 [employer] Patient Education 2022 [id number]. Follow Up Care 12/15/2022 11:25:23 With:Brigette Martini CNP Address: When:1 month [facility] 11-28-2022 Hospital Discharge instructions [...] fried and sweet foods. General instructions Take sybm-igx-eteghzg and prescription medicines only as told by [...] 04/25/2010 Document Revised: 10/20/2019 Document Reviewed: 07/15/2018 [employer] Patient Education 2020 [id number]. Follow Up Care 05/09/2022 11:00:12 With:TRISTA FARFAN, Armando Mckay, URL Address: [facility] [address], [place] [address]- When: Unknown [facility] evaluation + Plan note No data available for this section [facility] evaluation + Plan note Future Appointments Appointment Date:12/29/2022 10:30:00 AM Scheduled Provider: Location:FT.[facility] Appointment Type:US Abdominal/Pelvis (FT) Appointment Date:02/18/2023 08:15:00 AM Scheduled Provider: Location:[facility] Appointment Type:Surgery FT Future Scheduled Tests Radiology* US Abdomen, Limited 12/29/22 [facility] Evaluation + Plan note Future Appointments Appointment Date:02/18/2023 08:15:00 AM Scheduled Provider: Location:[facility] Future Appointments Appointment Date:01/07/2023 11:00:00 AM Scheduled Provider: Location:.[facility]AN Appointment Type:CT Abdomen (FT) Appointment Date:02/18/2023 08:15:00 AM Scheduled Provider: Location:[facility] Appointment Type:Surgery FT Future Scheduled Tests Radiology* CT Abdomen w/ Contrast 01[facility]07/23 [facility] Diagnosis RLS (restless legs syndrome)- Primary Restless legs syndrome (RLS) Moderate COPD (chronic obstructive pulmonary disease) (CMS/HCC) documented in this encounter [facility] HealthcareEvaluation noteNo assessment information availableBl[facility] Work Phone: evaluation note* Diagnosis Onset Date Resolution Status Abdominal aortic aneurysm (A AA) 3.0 cm to 5.0 cm in diameter in female acute [facility] Work Phone: evaluation note* Diagnosis Tobacco dependency- Primary Tobacco use [...] Unspecified essential hypertension Hyperlipidemia, unspecified hyperlipidemia type ([facility]/HCC) Gastroesophageal reflux disease without esophagitis Esophageal reflux documented in this encounter [facility] HealthcareEvaluation note* Diagnosis Tobacco dependency- Primary Tobacco [...] pulmonary disease) (CMS/HCC) Hyperlipidemia, unspecified hyperlipidemia type ([facility]/HCC) Gastroesophageal reflux disease without esophagitis Esophageal reflux H/O: CVA (cerebrovascular accident) Wellness examination History of colon polyps Chronic abdominal pain Abdominal pain, unspecified site Primary hypertension (CMS/HCC)- Primary Unspecified essential hypertension Hyperlipidemia, unspecified hyperlipidemia type ([facility]/HCC) Carcinoma in situ of ascending colon documented in this encounter [facility] HealthcareEvaluation note* Diagnosis Tobacco dependency- Primary Tobacco use disorder Hyperlipidemia, unspecified hyperlipidemia type ([facility]/HCC) H/O: CVA (cerebrovascular accident) Primary hypertension (CMS/HCC) [...] left lung- Primary documented in this encounter [facility] HealthcareEvaluation note* Diagnosis Tobacco dependency- Primary Tobacco [...] encounter [facility]* Diagnosis Primary hypertension (CMS/HCC)- Primary Unspecified essential hypertension Hyperlipidemia, unspecified hyperlipidemia type (CMS/HCC) documented in [...] in this encounter [facility]* Diagnosis Moderate COPD (chronic obstructive pulmonary disease) (CMS/HCC)- Primary documented in this encounter [facility]* Diagnosis Mixed hyperlipidemia (CMS/HCC)- Primary Mixed hyperlipidemia Hyperlipidemia, unspecified hyperlipidemia type (CMS/HCC) documented in this encounter [facility] HealthcareEvaluation note* Diagnosis Tobacco dependency- Primary Tobacco use disorder Hyperlipidemia, unspecified hyperlipidemia type ([facility]) H/O: CVA (cerebrovascular accident) Primary hypertension ([facility]/HCC) Unspecified essential hypertension Moderate COPD (chronic obstructive pulmonary disease) ([facility]) RLS (restless legs syndrome) Restless legs syndrome (RLS) Peripheral polyneuropathy Screening mammogram for breast cancer Medicare annual wellness visit, subsequent RLS (restless legs syndrome)- Primary Restless legs syndrome (RLS) Peripheral polyneuropathy Moderate COPD (chronic obstructive pulmonary disease) ([facility]) Hyperlipidemia, unspecified hyperlipidemia type ([facility]/HCC) Primary hypertension ([facility]) Unspecified essential hypertension Chronic abdominal pain Abdominal pain, unspecified site Moderate COPD (chronic obstructive pulmonary disease) ([facility]/HCC)- Primary Primary hypertension ([facility]) Unspecified essential hypertension Moderate COPD (chronic obstructive pulmonary disease) ([facility])- Primary Mass of left lung Primary hypertension ([facility]) Unspecified essential hypertension Syncope and collapse Mass of left lung- Primary Mass of left lung- Primary Primary hypertension ([facility])- Primary Unspecified essential hypertension Moderate COPD (chronic obstructive pulmonary disease) ([facility]) Hyperlipidemia, unspecified hyperlipidemia type ([facility]) Gastroesophageal reflux disease without esophagitis Esophageal reflux H/O: CVA (cerebrovascular accident) Wellness examination History of colon polyps Chronic abdominal pain Abdominal pain, unspecified site Primary hypertension ([facility])- Primary Unspecified essential hypertension Hyperlipidemia, unspecified hyperlipidemia type ([facility]) Mass of left lung- Primary Medicare annual wellness visit, subsequent- Primary Other polyneuropathy Psychophysiological insomnia Persistent disorder of initiating or maintaining sleep documented in this encounter [facility]* Diagnosis Tobacco dependency- Primary Tobacco use disorder Hyperlipidemia, unspecified hyperlipidemia type ([facility]) H/O: CVA (cerebrovascular accident) Primary hypertension ([facility]) Unspecified essential hypertension Moderate COPD (chronic obstructive pulmonary disease) ([facility]) RLS (restless legs syndrome) Restless legs syndrome (RLS) Peripheral polyneuropathy Screening mammogram for breast cancer Medicare annual wellness visit, subsequent RLS (restless legs syndrome)- Primary Restless legs syndrome (RLS) Peripheral polyneuropathy Moderate COPD (chronic obstructive pulmonary disease) ([facility]) Hyperlipidemia, unspecified hyperlipidemia type ([facility]) Primary hypertension ([facility]) Unspecified essential hypertension Chronic abdominal pain Abdominal [...] without residual deficits documented in this encounter [facility] HealthcareEvaluation note* Diagnosis Tobacco dependency- Primary Tobacco [...] without residual deficits documented in this encounter [facility]Evaluation note* Diagnosis Tobacco dependency- Primary Tobacco [...] type (CMS/HCC) Mass of left lung- Primary Cerebrovascular accident (CVA), unspecified mechanism (CMS/HCC)- Primary Malignant neoplasm of unspecified part of left bronchus or lung (CMS/HCC) Adenocarcinoma of left lung (CMS/HCC) Mixed hyperlipidemia (CMS/HCC) Mixed hyperlipidemia Tobacco dependency Tobacco use disorder Peripheral polyneuropathy Primary hypertension (CMS/HCC) Unspecified essential hypertension Screening mammogram for breast cancer documented in this encounter [facility] HealthcareEvaluation note* Diagnosis Tobacco dependency- Primary Tobacco [...] type (CMS/HCC) Mass of left lung- Primary Cerebrovascular accident (CVA), unspecified mechanism (CMS/HCC)- Primary Malignant neoplasm of unspecified part of left bronchus or lung (CMS/HCC) Adenocarcinoma of left lung (CMS/HCC) Mixed hyperlipidemia (CMS/HCC) Mixed hyperlipidemia Tobacco dependency Tobacco use disorder Peripheral polyneuropathy Primary hypertension (CMS/HCC) Unspecified essential hypertension Screening mammogram for breast cancer Anxiety- Primary Anxiety state, unspecified Psychophysiological insomnia Persistent disorder of initiating or [...] type (CMS/HCC) Mass of left lung- Primary Cerebrovascular accident (CVA), unspecified mechanism (CMS/HCC)- Primary Malignant neoplasm of unspecified part of left bronchus or lung (CMS/HCC) Adenocarcinoma of left lung (CMS/HCC) Mixed hyperlipidemia (CMS/HCC) Mixed hyperlipidemia Tobacco dependency Tobacco use disorder Peripheral polyneuropathy Primary hypertension (CMS/HCC) Unspecified essential hypertension Screening mammogram for breast cancer Urinary tract infection symptoms- Primary UTI symptoms documented in this encounter [facility] HealthcareEvaluation note* Diagnosis Tobacco dependency- Primary Tobacco [...] type (CMS/HCC) Mass of left lung- Primary Cerebrovascular accident (CVA), unspecified mechanism (CMS/HCC)- Primary Malignant neoplasm of unspecified part of left bronchus or lung (CMS/HCC) Adenocarcinoma of left lung (CMS/HCC) Mixed hyperlipidemia (CMS/HCC) Mixed hyperlipidemia Tobacco dependency Tobacco use disorder Peripheral polyneuropathy Primary hypertension (CMS/HCC) Unspecified essential hypertension Screening mammogram for breast cancer Mixed hyperlipidemia (CMS/HCC)- Primary Mixed hyperlipidemia documented in this encounter [facility] HealthcareEvaluation note* Diagnosis Tobacco dependency- Primary Tobacco [...] type (CMS/HCC) Mass of left lung- Primary Cerebrovascular accident (CVA), unspecified mechanism (CMS/HCC)- Primary Malignant neoplasm of unspecified part of left bronchus or lung (CMS/HCC) Adenocarcinoma of left lung (CMS/HCC) Mixed hyperlipidemia (CMS/HCC) Mixed hyperlipidemia Tobacco dependency Tobacco use disorder Peripheral polyneuropathy Primary hypertension (CMS/HCC) Unspecified essential hypertension Screening mammogram for breast cancer Anxiety Anxiety state, unspecified documented in this encounter [facility]* Diagnosis Onset Date Resolution Status Admit Date Non-small cell lung cancer acute November 14, 2024 11:18am [facility] Work Phone: History and physical note Author Mikhail Moon [facility] March 25, 2024 10:35am Note Date/Time March 25, 2024 10:35am [facility] [address] [place] [address] Gastroenterology H&P Signed Patient: Bhupendra Rubi MR#: [id number] : 1950 Acct:[id number] Age/Sex: 73 / F Adm Date: 4 Loc: Room: Type: [facility] Attending Dr: Mikhail Moon MD Copies [...] signed by Mikhail Moon MD> 03/25/24 1035 [facility] Work Phone: History general Narrative - Reported* Type Description Date Medical History GERD Medical History hypercholesterolemia Surgical History cholecystectomy Surgical History tubal ligation Surgical History shoulder surgery Hospitalization History see above [facility] Other [facility] general Narrative - Reported* Type Description Date Medical History GERD Medical History hypercholesterolemia Medical History Carotid stenosis Surgical History cholecystectomy Surgical History tubal ligation Surgical History shoulder surgery Hospitalization History see above [facility] Other Hospital Discharge instructions No data available for this section [facility] Additional Instructions Stop your blood pressure medicine. Follow-up with your doctor without fail for reevaluation of blood pressure and left lung mass.[facility] Work Phone: Hospital Discharge instructionsAmbulatory Orders* Referral to General Surgery Location: None Selected [facility] Work Phone: InstructionsNot on filedocumented in this encounter [facility]ructionsNot on filedocumented in this encounter [facility] No data available for this section [facility] Summary Purpose Family History No Family History [...] 1:25pm New Patient, Lung Cancer July 28 2 025 1:45pm BENIGN NEOPLASM OF COLON July 28 025 1:50pm Reason for Visit Admit Date High grade dysplasia in colonic adenoma May 11, 2024 1:25pm History of hypotension May 11 1:25pm Mass of upper lobe of left lung May 11, 2024 1:25pm Non-small cell lung cancer July 28, 2024 1:45pm Chief Complaint Admit Date New Patient, Lung Cancer Ioana 16th, 2 025 1:45pm Lung Cancer August 04, 2024 9 :06am Lung Cancer August 06, 2024 5 :13pm Lung Cancer August 12, 2024 9 :23am Lung Cancer August 29, 2024 9:46am Lung Cancer September 05, 2024 10:52am Lung Cancer September 12, 2024 10:2 4am Lung Cancer September 12, 2024 2:58 pm Unknown October 04, 2024 3:4 0pm Reason for Visit Admit Date Non-small cell lung cancer July 28, 2024 1:45pm Chief Complaint Admit Date New Patient, Lung Cancer July 28, 2 025 1:45pm Lung Cancer August 04, 2024 9 :06am Lung Cancer August 06, 2024 5 :13pm Lung Cancer August 12, 2024 9 :23am Lung Cancer August 29, 2024 9:46am Lung Cancer September 05, 2024 10:52am Lung Cancer September 12, 2024 10:2 4am Unknown October 04, 2024 3:4 0pm Virtual 1 Month Follow Up, Lung October 102024 10:40am Lung Cancer October 10, 2024 10: 48am Chief Complaint Admit Date Lung Cancer August 29, 2024 9:46am Lung Cancer September 05, 2024 10:52am Lung Cancer September 12, 2024 10:2 4am Unknown October 04, 2024 3:4 0pm Virtual 1 Month Follow Up, Lung October 102024 10:40am Follow Up, Rescheduled Multiple Times Eduardo wilde 2024 11:18am Lung Cancer November 14, 2024 11:19a m Reason for Visit Admit Date Non-small cell lung cancer November 14, 2024 11:18am Additional Source Comments INFORMATION SOURCE (unrecogn ized section and content) DATE CREATED AUTHOR 11/24/2022 [facility] DATE CREATED AUTHOR AUTHOR'S ORGANIZ ATION 03/03/2024 [facility] DATE CREATED AUTHOR AUTHOR'S ORGANIZ ATION 07/24/2024 [facility] DATE CREATED AUTHOR AUTHOR'S ORGANIZ ATION 10/29/2024 [facility] EPIC DATE CREATED AUTHOR AUTHOR'S ORGANIZ ATION 11/25/2024 [facility] Patient Care team informatio n (unrecognized section and content) Team Status: Active Member Role Status Dates NON STAFF Primary Care Provider Active Team Status: Active Member Role Status Dates Nitza Russell MD Other Provider Active Start: 2024 Mikhail Moon MD Referring Provider Active Start: August 29, 2024 Chris Singh , ASSISTANT HOUSEKEEPING MANAGER-C Primary Care Provider Ac tive Start: August 29, 2024 Judit Martini MD Attending Provider Active Start: August 29, 2024 Team Status: Active Member Role Status Dates Nitza Russell MD Other Provider Active Start: 2024 Mikhail Moon MD Referring Provider Active Start: September 05, 2024 Chris Singh , ASSISTANT HOUSEKEEPING MANAGER-C Primary Care Provider Ac tive Start: September 05, 2024 Judit Martini MD Attending Provider Active Start: September 05, 2024 Team Status: Active Member Role Status Dates Mikhail Moon MD Referring Provider Active Start: September 12, 2024 Chris Singh , ASSISTANT HOUSEKEEPING MANAGER-C Primary Care Provider Ac tive Start: September 12, 2024 Judit Martini MD Attending Provid er, Other Provider Active Start: September 12, 2024 Team Status: Inactive Member Role Status Dates Magui Cordero PA-C Attending Provider Active Start: October 04, 2024 End: October 04, 2024 Team Status: Inactive Member Role Status Dates Tammie Shah APRN Attending Provider Acti ve Start: October 10, 2024 End: October 10, 2024 NON STAFF Primary Care Provider Active Start: October 10, 2024 End: October 10, 2024 Team Status: Inactive Member Role Status Dates NON STAFF Primary Care Provider Active Start: November 14, 2024 End: November 14, 2024 Tammie Shah APRN Attending Provider Acti ve Start: November 14, 2024 End: November 14, 2024 Team Status: Active Member Role Status Dates Mikhail Moon MD Referring Provider Active Start: November 14, 2024 Chris Singh ASSISTANT HOUSEKEEPING MANAGER-C Primary Care Provider Ac tive Start: November 14, 2024 uJdit Martini MD Attending Provider Active Start: November 14, 2024 Team Status: Active Member Role Status Dates NON STAFF Primary Care Provider Active Team Status: Inactive Member Role Status Dates Judit Martini MD Attending Provider Active Start: July 28, 2024 End: July 28, 2024 Chris Singh ASSISTANT HOUSEKEEPING MANAGER-C Primary Care Provider Ac tive Start: July 28, 2024 End: July 28, 2024 Eryn Lundberg MD Referring Provider Active St art: July 28, 2024 End: July 28, 2024 Team Status: Active Member Role Status Dates Nitza Russell MD Other Provider Active Start: 2024 Mikhail Moon MD Referring Provider Active Start: August 04, 2024 Chris Singh ASSISTANT HOUSEKEEPING MANAGER-C Primary Care Provider Ac tive Start: August 04, 2024 Judit Martini MD Attending Provider Active Start: August 04, 2024 Team Status: Active Member Role Status Dates Nitza Russell MD Other Provider Active Start: 2024 Mikhail Moon MD Referring Provider Active Start: August 06, 2024 Chris Singh ASSISTANT HOUSEKEEPING MANAGER-C Primary Care Provider Ac tive Start: August 06, 2024 Natividad Correa MD Attending Provider Active Start: August 06, 2024 Team Status: Active Member Role Status Dates Nitza Russell MD Other Provider Active Start: 2024 Mikhail Moon MD Referring Provider Active Start: August 12, 2024 Chris Singh ASSISTANT HOUSEKEEPING MANAGER-C Primary Care Provider Ac tive Start: August 12, 2024 Judit Martini MD Attending Provider Active Start: August 12, 2024 Team Status: Active Member Role Status Dates Nitza Russell MD Other Provider Active Start: 2024 Mikhail Moon MD Referring Provider Active Start: August 29, 2024 Chris Singh ASSISTANT HOUSEKEEPING MANAGER-C Primary Care Provider Ac tive Start: August 29, 2024 Judit Martini MD Attending Provider Active Start: August 29, 2024 Team Status: Active Member Role Status Dates Nitza Russell MD Other Provider Active Start: 2024 Mikhail Moon MD Referring Provider Active Start: September 05, 2024 Chris Singh ASSISTANT HOUSEKEEPING MANAGER-C Primary Care Provider Ac tive Start: September 05, 2024 Judit Martini MD Attending Provider Active Start: September 05, 2024 Team Status: Active Member Role Status Dates Mikhail Moon MD Referring Provider Active Start: September 12, 2024 Chris Singh ASSISTANT HOUSEKEEPING MANAGER-C Primary Care Provider Ac tive Start: September 12, 2024 Judit Martini MD Attending Provid er, Other Provider Active Start: September 12, 2024 Team Status: Inactive Member Role Status Dates DONNLEL OlmsteadC Attending Provider Active Start: October 04, 2024 End: October 04, 2024 Team Status: Inactive Member Role Status Dates Ashlynmariella Shah APRN Attending Provider Acti ve Start: October 10, 2024 End: October 10, 2024 NON STAFF Primary Care Provider Active Start: October 10, 2024 End: October 10, 2024 Team Status: Active Member Role Status Dates Mikhail Moon MD Referring Provider Active Start: October 10, 2024 Chris Singh , ASSISTANT HOUSEKEEPING MANAGER-C Primary Care Provider Ac tive Start: October 10, 2024 Judit Martini MD Attending Provider Active Start: October 10, 2024 Team Status: Active Member Role Status Dates Chris Singh ASSISTANT HOUSEKEEPING MANAGER-C Primary Care Provider Ac tive Team Status: Inactive Member Role Status Dates [...] July 28, 2024 End: July 28, 2024 Chris Singh ASSISTANT HOUSEKEEPING MANAGER-C Primary Care Provider Ac tive Start: July 28, 2024 End: July 28, 2024 Eryn Lundberg MD Referring Provider Active St art: July 28, 2024 End: July 28, 2024 Team Status: Active Member Role Status Angelica Horan MD Primary Care Provider Active Start: July 28, 2024 Nitza Russell MD Attending Provider Active Start: July 28, 2024 Mikhail Moon MD Referring Provider Active Start: July 28, 2024 Anodizing Line Operator Relationship Specialty Start Date End Date Chris Singh, BEE WORKER-ARBOR PRESS OPERATOR [address] [place] [address] PCP - General Nurse Practitioner 06/13/24 Anodizing Line Operator Relationship Specialty Start Date End Date Charanjit Chen MD [address] [place] [address] PCP - General Family Medicine 02/11/24 Chris Singh NP [address] [place] [address] Nurse Practitioner Family Medicine 02/11/24 Anne Hartley [...] Name: SHAIKH HORAN MD Address: Address: [address] [place] [address] Team Status: Active Member Role Status Angelica Horan MD Primary Care Provider Active Team Status: Inactive Member Role Status Dates Shaikh Aung MD Primary Care Provider Active Start: December 27, 2023 End: December 27, 2023 Bernardino Bhakta MD Emergency Provider Active St art: December 27, 2023 End: December 27, 2023 Anodizing Line Operator Relationship Specialty Start Date End Date Shaikh Horan MD PCP - General Internal Medicine 01/26/23 Shaikh Horan MD [address] [place] [phone] PCP - Devoted 04/12/23 Personnel Name: SHAIKH HORAN Address: Address: [address] [address] US REASON FOR VISIT (unrecogniz ed section and content) Reason Onset Date Comments Med Refill 05/02/2024 Reason Comments Consult Colon polyp ref'd by Red Specialty Diagnoses / Procedures Referred By Contmaeve t Referred To Contact General Surgery Diagnoses Benign neoplasm of colon, unspecified Procedures LA OFFICE/OUTPATIENT NEW HIGH MDM 60 MINUTES Mikhail Moon MD [address] [place] [address] Phone: tel: fax: [facility] [address] [place] [address] Phone: tel: fax: Referral ID Status Reason Start Date Expiration Date V isits Requested Visits Authorized [id number] Closed Specialty Services Required 04/11/2024 10/08/2024 1 1 Reason Comments Follow-up Reason Comments Follow-up 1mo F/U Reason Onset Date Comments Hospital Follow-up 06/21/2024 Reason Onset Date Comments lacosamide (VIMPAT) 07/18/2024 Reason Comments Medicare Annual Wellness Visit Subsequen t Reason Comments Seizures Specialty Diagnoses / Procedures Referred By Contac t Referred To Contact Neurology Diagnoses Other seizures ([facility]) Procedures LA OFFICE/OUTPATIENT NEW LOW MDM 30 MINUTES Eryn Lundberg MD [address] [place] [address] Phone: tel: fax: Romel Sampson MD [address] [place] [address] Phone: tel: fax: Referral ID Status Reason Start Date Expiration Date V isits Requested Visits Authorized [id number] Closed Consult and Treat 07/22/2024 01/18/2025 1 [...] BE BASED ON THE PRIMARY CLINICAL RECORDS. [employer] [facility]. provides no warranty or guarantee of the accuracy or completeness of information in this document.
[2024-12-14 11:14] LABS: Basophils Absolute Auto 0.1 10^3/uL (0.0-0.1); Basophils Percent Auto 0.7 % (0.2-2.0); Eosinophils Absolute Auto 0.1 10^3/uL (0.0-0.7); Eosinophils Percent Auto 1.3 % (0.9-7.0); Hematocrit 42.7 % (36.0-48.0); Hemoglobin 13.6 g/dL (12.0-16.0); Immature Granulocytes Abs Auto 0.03 10^3/uL (0.00-0.03); Immature Granulocytes Pct Auto 0.3 % (0.0-0.5); Lymphocytes Absolute Auto 2.8 10^3/uL (1.2-3.8); Mean Corpuscular HGB Conc 31.9 g/dL (29.9-35.2); Mean Corpuscular Hemoglobin 28.2 pg (26.7-34.0); Mean Corpuscular Volume 88.4 fL (81.0-99.0); Mean Platelet Volume 9.8 fL (9.5-13.5); Monocytes Percent Auto 9.3 % (1.7-12.0); Neutrophils Absolute Auto 6.7 10^3/uL (1.4-6.5); Neutrophils Percent Auto 62.4 % (43.0-75.0); Platelet Count 375 10^3/uL (150-450); Red Blood Count 4.83 10^6/uL (4.20-5.40); Red Cell Distribution Width 15.9 % (11.0-15.0); White Blood Count 10.7 10^3/uL (4.0-11.0)
[2024-12-14 12:11] LABS: Alanine Aminotransferase 19 U/L (14-59); Albumin Globulin Ratio 0.9; Albumin Level 3.2 g/dL (3.4-5.0); Alkaline Phosphatase 108 U/L (46-116); Anion Gap 11.7; Aspartate Amino Transferase 11 U/L (15-37); BUN Creatinine Ratio 22.2; Bilirubin Total 0.4 mg/dL (0.2-1.0); Calcium 9.2 mg/dL (8.5-10.1); Carbon Dioxide 30.4 mmol/L (21.0-32.0); Chloride 105 mmol/L (98-107); Estimated GFR (African America >60 (>=60 mL/min/1.73m^2); Estimated GFR (Non-African Ame >60 (>=60 mL/min/1.73m^2); Globulin 3.6 g/dL; Glucose 107 mg/dL (74-106); Potassium 4.1 mmol/L (3.5-5.1); Sodium 143 mmol/L (136-145); Total Protein 6.8 g/dL (6.4-8.2)
== END 2024-12-14 10:46 | disposition home or self-care (01) ==
LOC: LAB 10:47
PROVIDERS: PCP Nurse Practitioner; Visit Provider Internal Medicine Hematology & Oncology
DX: R91.1 Solitary pulmonary nodule (principal); D72.829 Elevated white blood cell count, unspecified; C34.12 Malignant neoplasm of upper lobe, left bronchus or lung
CPT/HCPCS: 36415; 80053; 85025

== ENCOUNTER 2024-12-22 10:36 | Outpatient (OUT) | payer MEDICARE, SELFPAY ==
--- OUTSIDE RECORDS SUMMARY | 2024-12-21 16:00 | XMS_ITS | Encounter Summary ---
Author Organization [facility] Address [address] [place] [address] Care Team Providers Care Web Services Developer Name Role Phone Charanjit Chen MD Primary Care Provider [phone] Henok Hendrix MA Unavailable Unavailable Reason for Referral * Imaging (Urgent) - Authorized Specialty Diagnoses / Procedures Referred By Dionne michael Referred To Contact Radiology Diagnoses Infrarenal abdominal aortic aneurysm (AAA) without rupture Chronic abdominal pain Procedures CT abdomen pelvis w IV contrast Wendy Burden NP [address] [place] [address] Phone: tel: fax: [facility] [address] [place] [address] Referral ID Status Reason Start Date Expiration Date V isits Requested Visits Authorized [id number] Authorized 12/21/2024 06/19/2025 1 1 Reason for Visit * Reason Comments ER Follow-up Encounter Details Date Type Department Care Team ([facility] Contact Info) Description 12/21/2024 4:00 PM EDT Office Visit [facility] [address] [place] [phone] eWndy Burden NP [address] [place] [address] Epigastric pain (Primary Dx); Gastroesophageal reflux disease, unspecified whether esophagitis present; Infrarenal abdominal aortic aneurysm (AAA) without rupture; Chronic abdominal pain; Dysuria; Tobacco dependency Social History Tobacco Use Types Packs/Day Years [...] week 12/08/2023 How often do you attend [facility] or evangelical services? Never 12/08/2023 Do you belong to any clubs o r organizations such as adventism groups, unions, fraternal or athletic groups, or [...] Recorded Patient Health Questionnaire-2 Score 1 08/02/2024 [facility] - Occupational Stress [...] place to sleep or slept in a mcc (including now)? No 12/08/2023 Comments No Sex and Gender Information Value Date Recorded Sex Assigned at Not on file Legal Sex Female 12:29 PM EDT Gender Identity Not on file Sexual Orientation Not on file documented as of this encounter Last Filed Vital Signs Vital Sign Reading Time Taken Comments Blood Pressure 98/66 12/21/2024 4:27 PM EDT Pulse 104 12/21/2024 4:27 PM EDT Temperature 36.8 C (98.3 F) 12/21/2024 4:27 PM EDT Respiratory Rate 18 12/21/2024 4:27 PM EDT Oxygen Saturation 93% 12/21/2024 4:27 PM EDT Inhaled Oxygen Concentration - - Weight 67 kg (147 lb 9.6 oz) 12/21/2024 4:27 PM EDT Height - - Body Mass Index 27 09/26/2024 10:21 AM EDT documented in this encounter Patient Instructions * Patient Instructions* Wendy Burden NP - 12/21/2024 4:00 PM EDT We will order CT scan abd/pelvis area First get labs completed for me Stop nexium (esomeprazole), we will trial pantoprazole 40mg daily documented in this encounter Progress Notes * Wendy Burden NP - 12/21/2024 6:35 PM EDTAssociated Problem(s): Tobacco dependency The patient has been advised of the risks of continued smoking: stroke, [place], all forms of cancer, lung disease, and . Options for quitting smoking include: cold turkey, hypnosis, acupuncture, nicotine replacement meds(gum, lozenges, and patches), Buproprion, and Varenicline. At this time pt is encouraged to evaluate their goals for wanting to quit smoking, and reach out toprovider when ready to start this process * Wendy Burden NP - 12/21/2024 6:35 PM EDTAssociated Problem(s): Gastroesophageal reflux disease Stop esomeprazole Trial pantoprazole * Wendy Burden NP - 12/21/2024 6:34 PM EDTAssociated Problem(s): Infrarenal abdominal aortic aneurysm (AAA) without rupture Hx of this, doubt pain related to this Will get updated CT * Wendy Burden NP - 12/21/2024 6:34 PM EDTAssociated Problem(s): Epigastric pain Stop esomeprazole Trial pantoprazole Check labs * Wendy Burden NP - 12/21/2024 6:33 PM EDTAssociated Problem(s): Dysuria Check urine and culture * Wendy Burden NP - 12/21/2024 6:33 PM EDTAssociated Problem(s): Chronic abdominal pain DD: constipation, GERD, UTI, ulcer Hx colon cancer Check labs, check CT Changed PPI from nexium to pantoprazole, and add anti spasmodic * HETAL GODWIN - 12/21/2024 4:00 PM EDT Pt states that when she was in the hospital she had explained to them that she was having abdominalpain, they had proceeded to do a chest xray when she was wanting a CT/MRI of the abdomin. Pt has been having pain for about a year in the abdomin area and states that pain was was light however has become painful and unbearable. Pt is asking for tylenol with coding. Pt is currently taking 3 tylenol 2x daily. Pt has pain when laying sitting eating; everything. * Wendy Burden, BONDING AND COMPOSITE FABRICATOR - 12/21/2024 4:00 PM EDT Images from the original note were not included. Mirta Mitchell is a 74 y.o. female presents with chief complaint of ER Follow-up HPI: Abdominal Pain This is a recurrent problem. The current episode started more than 1 month ago. The problem occurs constantly. The pain is located in the epigastric region. The pain is at a severity of 8/10. The pain is moderate. The quality of the pain is aching and sharp. The abdominal pain does not radiate. Associated symptoms include constipation and dysuria. Pertinent negatives include no anorexia, arthralgias, diarrhea, fever, frequency, headaches, hematuria, melena, myalgias, nausea or vomiting. Nothingaggravates the pain. The pain is relieved by Certain positions. The treatment provided no relief. Her past medical history is significant for colon cancer (hx) and GERD. There is no history of PUD or ulcerative colitis. SUBJECTIVE: MEDICATIONS: Current Outpatient Medications Medication Instructions acetaminophen-codeine (Tylenol w/ Codeine #3) 300-30 MG tablet TAKE 1 TABLET BY MOUTH EVERY 6 HOURSAS NEEDED FOR PAIN FOR 5 DAYS albuterol HFA 90 mcg/act inhaler 2 puffs, Inhalation, Every 4 hours PRN apixaban (ELIQUIS) 5 mg, Oral, 2 times daily atorvastatin (LIPITOR) 80 mg, Oral, Daily Ortpxsx-Xswhxovrrvi-Nkjaioqqso (Breztri Aerosphere) 160-9-4.8 MCG/ACT aerosol 2 puffs, Inhalation, 2 times daily gabapentin (NEURONTIN) 300 mg, Oral, 3 times daily hyoscyamine (LEVSIN/SL) 0.125 mg, Oral, Every 8 hours PRN lacosamide (VIMPAT) 100 mg, Oral, 2 times daily lamoTRIgine (LAMICTAL) 150 mg, Oral, Daily RT LORazepam (ATIVAN) 0.5 mg, Oral, Daily PRN losartan (COZAAR) 25 mg, Oral, Daily pantoprazole (PROTONIX) 40 mg, Oral, 2 times daily, Do not crush, chew, or split. traZODone (DESYREL) 100 mg, Oral, Nightly ALLERGIES: No Known Allergies REVIEW OF SYMPTOMS: Review of Systems Constitutional: Negative for appetite change, chills and fever. HENT: Negative for congestion, ear pain and sore throat. Eyes: Negative for pain, discharge, redness and visual disturbance. Respiratory: Negative for cough, shortness of breath and wheezing. Cardiovascular: Negative for chest pain, palpitations and leg swelling. Gastrointestinal: Positive for abdominal pain and constipation. Negative for anorexia, blood in stool, diarrhea, melena, nausea and vomiting. Genitourinary: Positive for dysuria. Negative for difficulty urinating, frequency and hematuria. Musculoskeletal: Negative for arthralgias, back pain, joint swelling and myalgias. Skin: Negative for rash and wound. Neurological: Negative for dizziness, tremors, seizures, syncope and headaches. Psychiatric/Behavioral: Negative for behavioral problems, self-injury and suicidal ideas. The patient is nervous/anxious. Hematological: Does not bruise/bleed easily. Endocrine: Negative for polydipsia, polyphagia and polyuria. Allergic/Immunologic: Negative for environmental allergies and food allergies. PAST MEDICAL HISTORY Past Medical History: Diagnosis Date Abdominal pain in female Anxiety and depression Centrilobular emphysema (HCC) Chronic cough Chronic idiopathic constipation chronic, ongoing for years now. Uses Miralax daily with no benefit. Associated bloating, abdominal discomfort. Scheduled for EG/colonosocpy. Chronic pain disorder Cigarette nicotine dependence with nicotine-induced disorder 1 PPD x 55 years as of 2022. COPD with emphysema (HCC) Mod obs lung disease with emphysema Chronic smoker. Currently using Trelegy but she ran out of i.t H/O: CVA (cerebrovascular accident) Previous CVA about 10 years ago Residual RUE weakness, numbness and mild dysarthria. Heart disease Heartburn HLD (hyperlipidemia) On Lipitor 80 daily Hypertension Infrarenal abdominal aortic aneurysm (AAA) without rupture CT chest done in 11/02 by Pulm [...] in her son. OBJECTIVE: Visit Vitals BP 98/66 (BP Location: Left arm, Patient Position: Sitting, BP Cuff Size: Adult long) Pulse 104 Temp 98.3 ??F (Temporal) Resp 18 Wt 147 lb 9.6 oz SpO2 93% BMI 27.00 kg/m?? OB Status Hysterectomy Smoking Status Former BSA 1.71 m?? Physical Exam Vitals and nursing note reviewed. Constitutional: General: She is not in acute distress. Appearance: Normal appearance. She is not ill-appearing. HENT: Head: Normocephalic and atraumatic. Right Ear: External ear normal. Left Ear: External ear normal. Nose: Nose normal. Mouth/Throat: Mouth: Mucous membranes are moist. Eyes: Extraocular Movements: Extraocular movements intact. Conjunctiva/sclera: Conjunctivae normal. Cardiovascular: Rate and Rhythm: Normal rate and regular rhythm. Pulses: Normal pulses. Heart sounds: Normal heart sounds. No murmur heard. Pulmonary: Effort: Pulmonary effort is normal. Breath sounds: Normal breath sounds. No wheezing or rhonchi. Abdominal: General: Bowel sounds are normal. There is no distension. Palpations: Abdomen is soft. There is no mass. Tenderness: There is no abdominal tenderness (generalized tenderness). Musculoskeletal: General: Normal range of motion. Cervical back: Normal range of motion and neck supple. Right lower leg: No edema. Left lower leg: No edema. Lymphadenopathy: Cervical: No cervical adenopathy. Skin: General: [...] ASSESSMENT AND PLAN: Follow up in about 4 weeks (around 01/18/2025) for Recheck. Problem List Items Addressed This Visit Infrarenal abdominal aortic aneurysm (AAA) without rupture Hx of this, doubt pain related to this Will get updated CT Relevant Orders CT abdomen pelvis w IV contrast Tobacco dependency The patient has been advised of the risks of continued smoking: stroke, [place], all forms of cancer, lung disease, and . Options for quitting smoking include: cold turkey, hypnosis, acupuncture, nicotine replacement meds(gum, lozenges, and patches), Buproprion, and Varenicline. At this time pt is encouraged to evaluate their goals for wanting to quit smoking, and reach out toprovider when ready to start this process Chronic abdominal pain DD: constipation, GERD, UTI, ulcer Hx colon cancer Check labs, check CT Changed PPI from nexium to pantoprazole, and add anti spasmodic Relevant Medications hyoscyamine (Levsin/SL) 0.125 MG SL tablet Other Relevant Orders CT abdomen pelvis w IV contrast Comprehensive metabolic panel Gastroesophageal reflux disease - Primary Stop esomeprazole Trial pantoprazole Relevant Medications pantoprazole (ProtoNix) 40 MG EC tablet Dysuria Check urine and culture Relevant Orders Comprehensive metabolic panel Urinalysis with reflex microscopic (clean catch) Urine culture (clean catch) Epigastric pain Stop esomeprazole Trial pantoprazole Check labs Relevant Medications hyoscyamine (Levsin/SL) 0.125 MG SL tablet Other Relevant Orders Comprehensive metabolic panel Amylase Lipase documented in this encounter Plan of Treatment Upcoming Encounters Date Type Department Care Team (Late st Contact Info) Description 01/26/2025 10:30 AM EDT [facility] [address] [place] [address] Wendy Burden NP [address] [place] [address] Scheduled Orders Name Type Priority Associated Diagnoses Order Schedule CT abdomen pelvis w IV contrast Imaging High Priority Infrarenal abdominal aortic aneurysm (AAA) without rupture Chronic abdominal pain Expected: 12/21/2024 (Approximate), Expires: 12/21/2025 Comprehensive metabolic panel Lab Routine Chronic abdominal pain Dysuria Epigastric pain Expected: 12/21/2024 (Approximate), Expires: 12/21/2025 Amylase Lab Routine Epigastric pain Expected: 12/21/2024 (Approximate), Expires: 12/21/2025 Lipase Lab Routine Epigastric pain Expected: 12/21/2024 (Approximate), Expires: 12/21/2025 Urinalysis with reflex microscopic (clean catch) Lab Routine Dysuria Expected: 12/21/2024 (Approximate), Expires: 12/21/2025 Urine culture (clean catch) Microbiology Routine Dysuria Expected: 12/21/2024 (Approximate), Expires: 12/21/2025 documented as of this encounter Visit Diagnoses Diagnosis Epigastric pain- Primary Abdominal pain, epigastric Gastroesophageal reflux disease, unspecified whether esophagitis present Infrarenal abdominal aortic aneurysm (AAA) without rupture Chronic abdominal pain Abdominal pain, unspecified site Dysuria Tobacco dependency Tobacco use disorder documented in this encounter Additional Health Concerns Assessment Noted Time PHQ-9 Depression Total Score: 10 08/02/ 025 11:00 AM EST A fall risk assessment has been complete d for the patient 12/08/2023 9:26 AM EDT documented as of this encounter Care Teams Web Services Developer Relationship Specialty Start Date End Date Charanjit Chen MD [address] [place] [phone] PCP - General Family Medicine 02/11/24 Henok Hendrix MA Family Medicine 05/24/24 documented as of this encounter
--- OUTSIDE RECORDS SUMMARY | 2024-12-22 10:40 | XMS_ITS | Encounter Summary ---
Author Organization [facility] Address [address] [place] [address] Care Team Providers Care Welding Machine Operator Thermit Name Role Phone Charanjit Chen MD Primary Care Provider [phone] Betty Singh FEED MILL OPERATOR Unavailable Anne Hartley LPN Unavailable Unavailable Henok Hendrix MA Unavailable Unavailable Encounter Details Date Type Department Care Team (Late st Contact Info) Description 04/22/2024 Orders Only [facility] [address] [place] [address] Betty Singh NP Social History [...] often do you attend chur ch or baptism services? Never 12/08/2023 Do you belong to any clubs o r organizations such as synagogue groups, unions, fraternal or athletic groups, or [...] Recorded Patient Health Questionnaire-2 Score 0 03/24/2024 [facility] - Occupational [...] a fci (including now)? No 12/08/2023 Comments Unknown Sex [...] Visit [facility] [address] [place] [address] Wendy Burden NP [address] [place] [address] documented as of this encounter Procedures Procedure [...] documented as of this encounter Care Teams Welding Machine Operator Thermit Relationship Specialty Start Date End Date Charanjit Chen MD [address] [place] [address] PCP - General Family Medicine 02/11/24 Betty Singh NP [address] [place] [address] Nurse Practitioner Family Medicine 02/11/24 11/20/24 Anne Hartley LPN Licensed Practical Nurse Family Medicine 03/25/2405/24 Henok Hendrix MA Family Medicine 05/24/24 documented as of this encounter
--- OUTSIDE RECORDS SUMMARY | 2024-12-22 10:40 | XMS_ITS | Encounter Summary ---
Author Organization [facility] Address [address] [place] [address] Care Team Providers Care Esthetician/Owner Name Role Phone Charanjit Chen MD Primary Care Provider [phone] Betty Singh SUSTAINABILITY PURCHASING AGENT Unavailable Henok Hendrix MA Unavailable Unavailable Encounter Details Date Type Department Care Team (Late st Contact Info) Description 07/18/2024 Orders Only [facility] [address] [place] [address] Betty Singh NP Social History Tobacco Use [...] How often do you attend chur or anglican services? Never 12/08/2023 Do you belong to [...] Recorded Patient Health Questionnaire-2 Score 0 03/24/2024 [facility] - Occupational Stress Questionnaire Answer Date [...] a penitentiary (including now)? No 12/08/2023 Comments No Sex [...] Office Visit [facility] [address] [place] [address] Wendy Burden NP [address] [place] [address] documented as of this encounter Visit Diagnoses Not on filedocumented in this encounter Additional Health Concerns Assessment Noted Time PHQ-9 Depression Total Score: 5 07/09/20 23 2:09 PM EST A fall risk assessment has been complete d for the patient 12/08/2023 9:26 AM EDT documented as of this encounter Care Teams Esthetician/Owner Relationship Specialty Start Date End Date Charanjit Chen MD [address] [place] [address] PCP - General Family Medicine 02/11/24 Betty Singh NP [address] [place] [address] Nurse Practitioner Family Medicine 02/11/24 11/20/24 Henok Hendrix MA Family Medicine 05/24/24 documented as of this encounter
--- OUTSIDE RECORDS SUMMARY | 2024-12-22 10:40 | XMS_ITS | Encounter Summary ---
Author Organization [facility] Address [address] [place] [address] Care Team Providers Care Accounting Machine Mechanic Name Role Phone Flower Stokes LPN Unavailable Unavailable Charanjit Chen MD Primary Care Provider [phone] Betty Singh NP Unavailable [phone] Anne Hartley LPN Unavailable Unavailable Henok Hendrix [...] often do you attend chur ch or adventism services? Never 12/08/2023 Do you belong to any clubs o r organizations such as yarsanism groups, unions, fraternal or athletic groups, or [...] Recorded Patient Health Questionnaire-2 Score 0 02/22/2024 [facility] Questionnaire Answer Date Recorded [...] place to sleep or slept in a intermediate (including now)? No 12/08/2023 Comments Unknown Sex [...] Visit [facility] [address] [place] [address] Wendy Burden NP [address] [place] [address] documented as of this encounter Procedures Procedure Name Priority Date/Time Associated Diagnosis Comments BRONCHOSCOPY W OR WO FLUORO 03/10/2024 7:34 AM EDT documented in this encounter Results * BRONCHOSCOPY W OR WO FLUORO (03/10/2024 7:34 AM EDT) Anatomical Region Laterality Modality Radiographic Meagan ging 03/10/2024 7:34 AM EDT Narrative 03/10/2024 7:36 AM EDT The [address] [address] Fluoroscopy Report Signed Patient: BHUPENDRA MIRANDA MR#: [id number] : 1950 Acct:[id number] Age/Sex: 73 / F ADM Date: 03/09/24 Loc: SURGOUT Attending Dr: Leigh Thompson D.O. Ordering Physician: Leigh Thompson D.O. Date of Service: 03/09/24 Procedure(s): FL Bronchoscopy NO CHARGE Accession Number(s): [id number] cc: BETTY SINGH; Leigh Thompson D.O. The [place] [id number] Patient Name: BHUPENDRA MIRANDA MRN: [facility]:[id number] date: 1950 Sex: F Assigned Patient Location: [facility] Current Patient Location: Accession/Order Number: [id number] Exam Date: 03/09/2024 12:45 Report Date: 03/10/2024 [...] Signed By: 03/10/24 0736 DD/ 0734 TD/TT: Scale Adjuster: Procedure Note Radiology, Radiologist, MD - 03/10/2024 [place] [address] Fluoroscopy Report Signed Patient: BHUPENDRA MIRANDA MMR#: [id number] : 1950cct:[id number] Age/Sex: 73 / FADM Date: 03/09/24 Loc: SURGOUT Attending Dr: Leigh Thompson D.O. Ordering Physician: Leigh Thompson D.O. Date of Service: 03/09/24 Procedure(s): FL Bronchoscopy NO CHARGE Accession Number(s): [id number] cc: LYNETTE SINGH Nathan D.O. [address] [address] Patient Name: BHUPENDRA MIRANDA MRN: [id number] date: 1950 Sex: F Assigned Patient Location: SURGOUT Current Patient Location: Accession/Order Number: [id number] Exam Date: 03/09/2024 12:45 Report Date: 03/10/2024 [...] Jeff Melton M.D. Signed By:03/10/2436 DD/ TD/TT: Scale Adjuster: us Generic External Data Provider IMG XR PROCEDURES Final Result documented in this encounter Visit Diagnoses Not on filedocumented in this encounter Additional Health Concerns Assessment Noted Time PHQ-9 Depression Total Score: 5 07/09/20 23 2:09 PM EST A fall risk assessment has been complete d for the patient 12/08/2023 9:26 AM EDT documented as of this encounter Care Teams Accounting Machine Mechanic Relationship Specialty Start Date End Date Charanjit Chen MD [address] [place] [id number] PCP - General Family Medicine 02/11/24 Flower Stokes LPN Licensed Practical Nurse Family Medicine 11/26/23 Betty Singh NP [address] [place] [address] Nurse Practitioner Family Medicine 02/11/24 11/20/24 Anne Hartley LPN Licensed Practical Nurse Family Medicine 03/25/2405/24 Henok Hendrix MA Family Medicine 05/24/24 documented as of this encounter
--- OUTSIDE RECORDS SUMMARY | 2024-12-22 10:40 | XMS_ITS | Encounter Summary ---
Author Organization [facility] Address [address] [place] [address] Care Team Providers Care Heat Treat Operator Name Role Phone Eryn Lundberg MD Unavailable [phone] Eryn Lundberg MD Primary Care Provider [phone] Encounter Details Date Type Department Care Team (Late st Contact Info) Description 12/15/2024 Telephone [facility] Endoscopy [address] [place] [address] Annetta Medrano, RACHELL Social History Tobacco Use Types Packs/Day Years Used Date Smoking Tobacco: Former Cigarettes Q uit: 12/2023 Alcohol Use Standard Drinks/Week Comments Not Currently 0 (1 standard drink = 0.6 oz pur e alcohol) PHQ-2 Answer Date Recorded Patient Health Questionnaire-2 Score 0 04/28/2024 Comments Unknown Sex and Gender Information Value Date Recorded Sex Assigned at Not on file Legal Sex Female 2:59 PM EDT Gender Identity Not on file Sexual Orientation Not on file documented as of this encounter Miscellaneous Notes * Telephone Encounter - Annetta Medrano RN - 12/15/2024 4:42 PM EDT Message left for patient to call and schedule a 6 month follow up Colonoscopy with Dr. Florinda Richard. She is s/p Colonoscopy with EMR documented in this encounter Plan of Treatment Not on file documented as of this encounter Visit Diagnoses Not on filedocumented in this encounter Care Teams Heat Treat Operator Relationship Specialty Start Date End Date Eryn Lundberg MD [address] [place] [address] [address] [place] [address] PCP - General Oncology 06/21/24 Eryn Lundberg MD [address] [place], [place] [address] [address] [place] [address] Consulting Physician Oncology 05/27/24 documented as of this encounter
--- OUTSIDE RECORDS SUMMARY | 2024-12-22 10:40 | XMS_ITS | Clinical Summary ---
Author Organization [facility] Address [address] [place] [address] Care Team Providers Care Mechanical Engineering Director Name Role Phone Eryn Lundberg MD Unavailable [phone] Eryn Lundberg MD Primary Care Provider [phone] Allergies No known active allergies Medications albuterol 90 mcg/actuation inhaler every 4 (four) hours. Active aspirin 81 mg EC tablet 1 (one) time each day at the same time. 4 Active atorvastatin (Lipitor) 80 mg tablet 1 (one) time each day at the same time. Active Breztri Aerosphere 160-9-4.8 mcg/actuation HFA aerosol inhaler every 12 (twelve) hours. 4 Active gabapentin (Neurontin) 300 mg capsule 1 capsule 1 (one) time each day at the same time. Active pantoprazole (ProtoNix) 40 mg EC tablet before breakfast. 4 Active traZODone (Desyrel) 100 mg tablet 1 (one) time each day at the same time. 2 Active Suprep Bowel Prep Kit 17.5-3.13-1.6 gram recon solnIndications :Colonic mass USE DIRECTED per office instructions for 2 (TWO) doses 354 mL 4 Active lacosamide (Vimpat) 150 mg tablet tablet Take 150 mg by mouth twice a day. 4 Active losartan (Cozaar) 25 mg tablet Take 25 mg by mouth in the morning. 4 Active Active Problems Problem Noted Date [...] Encounters Date Type Department Care Team Description 12/15/2024 Telephone [facility] Endoscopy [address] [place] [address] Annetta Medrano RN from Last 3 Months Immunizations Immunization Administration [...] 06/21/2024 Colorectal Cancer Screening 06/21/2034 Pneumococcal Vaccine: 50+ Years Completed 07/09/2022, 07/03/2022 HIB Vaccines Aged [...] procedure. Eryn Lundberg MD ENDOSCOPY PROCEDURE ORDERABLES Final Result from Last 3 Months or Most Recently Relevant to Health Maintenance Insurance [facility] MEDICARE ADVANTAGE Care Teams Mechanical Engineering Director Relationship Specialty Start Date End Date Eryn Lundberg MD [address] [place] [address] [address] [place] [address] PCP - General Oncology 06/21/24 Eryn Lundberg MD [address] [place] [address] [address] [place] [address] Consulting Physician Oncology 05/27/24
--- OUTSIDE RECORDS SUMMARY | 2024-12-22 10:40 | XMS_ITS | Referral Summary ---
Author Organization [facility] Address [address] [place] [address] Care Team Providers Care Traffic Sign Erection Supervisor Name Role Phone Eryn Lundberg MD Unavailable [phone] Eryn Lundberg MD Primary Care Provider [phone] Encounters Date Type Department Care Team Description 12/15/2024 Telephone [facility] Endoscopy [address] [place] [address] Annetta Medrano, RACHELL from Last 3 Months Allergies No known active allergies Medications albuterol [...] BP at goal. Encouraged smoking cessation Immunizations Immunization Administration Dates Next Due Pneumococcal [...] Right/Ascending Colon HISTOLOGY - TISSUE EXAM Marlo Borden, ASSISTANT HEAD CASHIER 06/21/2024 1421 B : polyp adjcent to [...] Most Recently Relevant to Health Maintenance Insurance [facility] MEDICARE ADVANTAGE Care Teams Traffic Sign Erection Supervisor Relationship Specialty Start Date End Date Eryn Lundberg MD [address] [place] [address] [address] [place] [address] PCP - General Oncology 06/21/24 Eryn Lundberg MD [address] [place] [address] [address] [place] [address] Consulting Physician Oncology 05/27/24
--- OUTSIDE RECORDS SUMMARY | 2024-12-22 10:40 | XMS_ITS | Encounter Summary ---
Author Organization [facility] Address [address] [place] [address] Care Team Providers Care Sorority Mother Name Role Phone Charanjit Chen MD Primary Care Provider [phone] Betty Singh NP Unavailable [phone] Henok Hendrix MA Unavailable Unavailable Encounter Details Date Type Department Care Team (Late st Contact Info) Description 06/15/2024 Orders Only [facility] [address] [place] [address] Shaikh Horan MD [address] [facility] [place] [address] Social History Tobacco Use Types Packs/Day Years [...] often do you attend chur ch or orthodox services? Never 12/08/2023 Do you belong to [...] Recorded Patient Health Questionnaire-2 Score 0 03/24/2024 [facility] of Occupat ional Health - Occupational [...] place to sleep or slept in a detention (including now)? No 12/08/2023 Comments No Sex [...] Office Visit [facility] [address] [place] [address] Wendy Burden NP [address] [place] [address] documented as of this encounter Procedures Procedure [...] documented as of this encounter Care Teams Sorority Mother Relationship Specialty Start Date End Date Charanjit Chen MD [address] [place] [address] PCP - General Family Medicine 02/11/24 Betty Singh NP [address] [place] [address] Nurse Practitioner Family Medicine 02/11/24 11/20/24 Henok Hendrix MA Family Medicine 05/24/24 documented as of this encounter
--- OUTSIDE RECORDS SUMMARY | 2024-12-22 10:40 | XMS_ITS | Encounter Summary ---
Author Organization [facility] Address [address] [place] [address] Care Team Providers Care Can Filling Machine Operator Name Role Phone Charanjit Chen MD Primary Care Provider Betty Singh NP Unavailable [phone] Henok Hendrix MA Unavailable Unavailable Encounter Details Date Type Department Care Team (Late st Contact Info) Description 06/14/2024 Orders Only [facility] [address] [place] [address] Shaikh Horan MD [address] [facility] [place] [address] Social History Tobacco Use Types Packs/Day Years [...] often do you attend chur ch or jew services? Never 12/08/2023 Do you belong to any clubs o r organizations such as rastafari groups, unions, fraternal or athletic groups, or [...] Recorded Patient Health Questionnaire-2 Score 0 03/24/2024 [facility] of Occupat ional Health - [...] place to sleep or slept in a assisted (including now)? No 12/08/2023 Comments No Sex [...] Office Visit [facility] [address] [place] [address] Wendy Burden NP [address] [place] [address] documented as of this encounter Procedures Procedure [...] documented as of this encounter Care Teams Can Filling Machine Operator Relationship Specialty Start Date End Date Charanjit Chen MD [address] [place] [address] PCP - General Family Medicine 02/11/24 Betty Singh NP [address] [place] [address] Nurse Practitioner Family Medicine 02/11/24 11/20/24 Henok Hendrix MA Family Medicine 05/24/24 documented as of this encounter
--- OUTSIDE RECORDS SUMMARY | 2024-12-22 10:40 | XMS_ITS | Encounter Summary ---
Author Organization [facility] Address [address] [place] [address] Care Team Providers Care Production Control Technologist Name Role Phone Charanjit Chen MD Primary Care Provider [phone] Betty Singh NP Unavailable [phone] Anne Hartley LPN Unavailable Unavailable Henok Hendrix MA Unavailable Unavailable Encounter Details Date Type Department Care Team (Latest Contact Info) Description 05/24/2024 Abstract [facility] Javier Villanueva, DO [address] [address] Social History Tobacco Use Types Packs/Day Years [...] How often do you attend chur or adventism services? Never 12/08/2023 Do you [...] place to sleep or slept in a half-way (including now)? No 12/08/2023 Comments No Sex [...] Office Visit [facility] [address] [place] [address] Wendy Burden NP [address] [place] [address] documented as of this encounter Visit Diagnoses Not on filedocumented in this encounter Additional Health Concerns Assessment Noted Time PHQ-9 Depression Total Score: 5 07/09/20 23 2:09 PM EST A fall risk assessment has been complete d for the patient 12/08/2023 9:26 AM EDT documented as of this encounter Care Teams Production Control Technologist Relationship Specialty Start Date End Date Charanjit Chen MD [address] [place] [address] PCP - General Family Medicine 02/11/24 Betty Singh NP [address] [place] [address] Nurse Practitioner Family Medicine 02/11/24 11/20/24 Anne Hartley LPN Licensed Practical Nurse Family Medicine 03/25/2405/24 Henok Hendrix MA Family Medicine 05/24/24 documented as of this encounter
--- OUTSIDE RECORDS SUMMARY | 2024-12-22 10:40 | XMS_ITS | Encounter Summary ---
[facility] Address [id number] [address] [place] [address] Care Team Providers Care Bunghole Borer Name Role Phone Betty Singh DIRECTOR MUSIC-STRUCTURAL STEEL WORKER APPRENTICE Primary Care Pr ovider Reason for Visit * Reason Onset Date Comments referral 12/19/2024 Encounter Details Date Type Department Care Team (Late st Contact Info) Description 12/19/2024 Telephone [facility] Neurology, A Department of [facility] [address] [facility] [address] [place] [address] Brenna Morel referral Social History Tobacco Use Types Packs/Day Years Used Date Smoking Tobacco: Former Cigarettes Smokeless Tobacco: Never Alcohol Use Standard Drinks/Week Comments Not Currently 0 (1 standard drink = 0.6 oz pur e alcohol) [facility] Utilities Answer Date Recorded In the past 12 months has [employer], gas, oil, or water [employer] threatened to shut off services in your [...] encounter Miscellaneous Notes * Telephone Encounter - Brenna Morel - 12/19/2024 12:56 PM EDT What is the reason for the call? referral If appointment requested, what is the reason for the appointment? New patient Is there a referral in the chart? yes Were they seen in the hospital? What hospital were they seen at? yes, 10/05/24 patient was seen telestroke with Dr. Abdi Kimble and patient was admitted to [place]. What is a good call back number? [place] [phone] Please Advise. Would patient need to schedule new patient appointment with stroke or general neurology? Patient significant other is requesting a call back to schedule. Thank you so much. * Telephone Encounter - Stephanie Crawford RN - 12/19/2024 12:56 PM EDT Okay to schedule with carlos/fellow/homar. * Telephone Encounter - Isabella Stokes - 12/19/2024 12:56 PM EDT Was in the middle of scheduling an appt with the patient when policy writer sales was giving the address and sherealized we are located in [place]. She stated she doesn't want [place] and that she will not go to [place]. She then disconnected the call Game Room Attendant canceled the appt. documented in this encounter Plan of Treatment Not on file documented as of this encounter Goals Goal Patient Goal Type Associated Problems Recent Progress Patient-Stated? Author return home General Yes Brigitte Be, RACHELL Note: Evaluation of progress towards goal: Significant other hopes patient will be able to return home documented as of this encounter Visit Diagnoses Not on filedocumented in this encounter Care Teams Bunghole Borer Relationship Specialty Start Date End Date Betty Singh, DIRECTOR MUSIC-STRUCTURAL STEEL WORKER APPRENTICE [address] [place] [address] PCP - General Nurse Practitioner 06/13/24 documented as of this encounter
--- OUTSIDE RECORDS SUMMARY | 2024-12-22 10:40 | XMS_ITS | Encounter Summary ---
Author Organization [facility] Address [id number] [address] [place] [address] Care Team Providers Care Slackline Operator Name Role Phone Betty Singh BOAT WORKER-BULK PLANT OPERATOR Primary Care Pr ovider Encounter Details Date Type Department Care Team (Late st Contact Info) Description 06/13/2024 Orders Only [facility] [address] [place] [phone] Transcribe, Orders Support User Pain (Primary Dx) Social History Tobacco Use Types Packs/Day Years Used Date Smoking Tobacco: Never Assessed [facility] Utilities Answer Date Recorded In the [...] documented as of this encounter Care Teams Slackline Operator Relationship Specialty Start Date End Date Betty Singh, BOAT WORKER-BULK PLANT OPERATOR [address] [place] [address] PCP - General Nurse Practitioner 06/13/24 documented as of this encounter
--- OUTSIDE RECORDS SUMMARY | 2024-12-22 10:41 | XMS_ITS | Encounter Summary ---
Author Organization [facility] Address [address] [place] [address] Care Team Providers Care M48/M60 Tank Driver Name Role Phone Charanjit Chen MD Primary Care Provider [phone] Henok Hendrix MA Unavailable Unavailable Encounter Details Date Type Department Care Team (Late st Contact Info) Description 12/14/2024 Clinisync Result Encounter [facility] External Department Unsolicited [...] How often do you attend chur or druze services? Never 12/08/2023 Do you belong to any clubs o r organizations such as zoroastrian groups, unions, fraternal or athletic groups, or [...] Recorded Patient Health Questionnaire-2 Score 1 08/02/2024 [facility] [...] place to sleep or slept in a usp (including now)? No 12/08/2023 Comments No Sex [...] EDT Office Visit [facility] [address] [place] [address] Wendy Burden NP [address] [place] [address] documented as of this encounter Procedures Procedure Name Priority Date/Time Associated Diagnosis Comments [facility] CMP (CMP) (FOR REMOTE [facility] USE) Routine 12/14/2024 11:00 AM EDT ALL CBC WITH AUTO DIFF Routine 12/14/2024 11:00 AM EDT documented in this encounter Results * (ABNORMAL) [facility] CMP (CMP) (FOR REMOTE [facility] USE) (12/14/2024 11:00 AM EDT) SODIUM 143 136 - 145 mmol/L [facility] POTASSIUM 4.1 3.5 - 5.1 mmol/L [facility] CHLORIDE 105 98 - 107 mmol/L [facility] CARBON DIOXIDE 30.4 21.0 - 32.0 mmol/L [facility] ANION GAP 11.7 TB[facility] GLUCOSE 107(H) 74 - 106 mg/dL [facility] BLOOD UREA NITROGEN 20.0(H) 7.0 - 18.0 mg/dL [facility] CREATININE 0.90 0.55 - 1.02 mg/dL TBH TBH EGFR-AF SAO TOMEAN >60 >=60 mL/min/1. 73m 2 TBH TBH EGFR-NON AF SAO TOMEAN >60 >=60 mL/min/1. 73m 2 TB[facility] BUN CREATININE RATIO 22.2 TBH CALCIUM 9.2 8.5 - 10.1 mg/dL [facility] BILIRUBIN TOTAL 0.4 0.2 - 1.0 mg/dL [facility] ASPARTATE AMINO TRANSFERASE 11(L) 15 - 37 U/L [facility] ALANINE AMINOTRANSFERASE 19 14 - 59 U/L TBH ALKALINE PHOSPHATASE 108 46 - 116 U/L [facility] TOTAL PROTEIN 6.8 6.4 - 8.2 g/dL [facility] ALBUMIN LEVEL 3.2(L) 3.4 - 5.0 g/dL [facility] GLOBULIN 3.6 g/dL [facility] ALBUMIN GLOBULIN RATIO 0.9 TB[facility] 12/14/2024 11:0 0 AM EDT 12/14/2024 11:08 AM EDT Narrative [facility] - 12/14/2024 12:15 PM EDT Generic External Data Provider [facility] * ([facility]AL) ALL CBC WITH AUTO DIFF (12/14/2024 11:00 AM EDT) TB WBC 10.7 4.0 - 11.0 10 3/uL TBH TBH RBC 4.83 4.20 - 5.40 10 6/uL TBH TBH HGB 13.6 12.0 - 16.0 g/dL TBH TBH HCT 42.7 36.0 - 48.0 % TBH TBH MCV 88.4 81.0 - 99.0 fL TBH TBH MCH 28.2 26.7 - 34.0 pg TBH TBH MCHC 31.9 29.9 - 35.2 g/dL TBH TBH RDW 15.9(H) 11.0 - 15.0 % TBH TBH PLT 375 150 - 450 10 3/uL TBH TBH MPV 9.8 9.5 - 13.5 fL TBH NEUTROPHILS PERCENT AUTO 62.4 43.0 - 75.0 % TBH LYMPHOCYTES PERCENT AUTO 26.0 20.5 - 60.0 % TBH MONOCYTES PERCENT AUTO 9.3 1.7 - 12.0 % TBH TBH EO % 1.3 0.9 - 7.0 % TBH BASOPHILS PERCENT AUTO 0.7 0.2 - 2.0 % TB[facility] IMMATURE GRANULOCYTES PCT AUTO 0.3 0.0 - 0.5 % TBH NEUTROPHILS ABSOLUTE AUTO 6.7(H) 1.4 - 6.5 10 3/uL TBH LYMPHOCYTES ABSOLUTE AUTO 2.8 1.2 - 3.8 10 3/uL TB[facility] MONOCYTES ABSOLUTE AUTO 1.0(H) 0.3 - 0.8 10 3/uL TBH TBH EO # 0.1 0.0 - 0.7 10 3/uL TBH BASOPHILS ABSOLUTE AUTO 0.1 0.0 - 0.1 10 3/uL TB[facility] IMMATURE GRANULOCYTES ABS AUTO 0.03 0.00 - 0.03 10 3/uL [facility] 12/14/2024 11:0 0 AM EDT 12/14/2024 11:08 AM EDT Narrative [facility] - 12/14/2024 11:16 AM EDT us Generic External Data Provider [facility] documented in this encounter Visit Diagnoses Not on filedocumented in this encounter Additional Health Concerns Assessment Noted Time PHQ-9 Depression Total Score: 10 025 11:00 AM EST A fall risk assessment has been complete d for the patient 12/08/2023 9:26 AM EDT documented as of this encounter Care Teams M48/M60 Tank Driver Relationship Specialty Start Date End Date Charanjit Chen MD [address] [place] [address] PCP - General Family Medicine 02/11/24 Henok Hendrix MA Family Medicine 05/24/24 documented as of this encounter
--- OUTSIDE RECORDS SUMMARY | 2024-12-22 10:41 | XMS_ITS | Encounter Summary ---
Author Organization [facility] Address [address] [place] [address] Care Team Providers Care Crusher Foreman Name Role Phone Shaikh NAHEED Horan Unavailable [phone] Shaikh NAHEED Horan Primary Care Provider [phone] Flower Stokes LPN Unavailable Unavailable Charanjit Chen MD Primary Care Provider [phone] Betty Singh NP Unavailable [phone] Anne Hartley LPN Unavailable Unavailable Henok Hendrix MA Unavailable Unavailable Reason for Visit * Reason Comments Med Refill Encounter Details Date Type Department Care Team (Late st Contact Info) Description 11/10/2023 [facility] [address] [place] [address] Shaikh Horan MD [address] [place] [address] Primary hypertension Social History Tobacco Use Types Packs/Day Years [...] Visit [facility] [address] [place] [address] Wendy Burden NP [address] [place] [phone] documented as of this encounter Visit Diagnoses Diagnosis Primary hypertension Unspecified essential hypertension documented in this encounter Additional Health Concerns Assessment Noted Time PHQ-9 Depression Total Score: 5 07/09/20 23 2:09 PM EST documented as of this encounter Care Teams Crusher Foreman Relationship Specialty Start Date End Date Shaikh Horan MD [address] [place] [phone] PCP - Devoted 04/12/23 11/10/23 Shaikh Horan MD [address] [place] [phone] PCP - General Internal Medicine 10/12/23 02/10/24 Charanjit Chen MD [address] [place] [phone] PCP - General Family Medicine 02/11/24 Flower Stokes LPN Licensed Practical Nurse Family Medicine 11/26/23 Betty Singh NP [address] [place] [address] Nurse Practitioner Family Medicine 02/11/24 11/20/24 Anne Hartley LPN Licensed Practical Nurse Family Medicine 03/25/2405/24 Henok Hendrix MA Family Medicine 05/24/24 documented as of this encounter
--- OUTSIDE RECORDS SUMMARY | 2024-12-22 10:41 | XMS_ITS | Clinical Summary ---
Author Organization [facility] Address [address] [place] [address] Care Team Providers Care Instructor Product Inspection Name Role Phone Unavailable Primary Care Provider [...]
--- OUTSIDE RECORDS SUMMARY | 2024-12-22 10:41 | XMS_ITS | Encounter Summary ---
Author Organization [facility] Address [id number] [address] [place] [address] Care Team Providers Care Cinder Crusher Operator Name Role Phone Singh, Betty Jonathan INSTRUMENT OPERATOR-UC ARCHITECT Primary Care Pr ovider Encounter Details Date Type Department Care Team (Late st Contact Info) Description 06/15/2024 Orders Only [facility] [address] [place] [phone] Transcribe, Orders Support User Pain (Primary Dx) Social History Tobacco Use Types Packs/Day Years Used Date Smoking Tobacco: Former Cigarettes Smokeless Tobacco: Never Alcohol Use Standard Drinks/Week Comments Not Currently 0 (1 standard drink = 0.6 oz pur e alcohol) [facility] Utilities Answer Date Recorded In the past 12 months has [employer], oil, or water [employer] threatened to shut off services in your [...] documented as of this encounter Care Teams Cinder Crusher Operator Relationship Specialty Start Date End Date Betty Singh, INSTRUMENT OPERATOR-UC ARCHITECT [address] [place] [address] PCP - General Nurse Practitioner 06/13/24 documented as of this encounter
--- OUTSIDE RECORDS SUMMARY | 2024-12-22 10:41 | XMS_ITS | Encounter Summary ---
Author Organization [facility] Address [address] [place] [address] Care Team Providers Care Certified Dialysis Technician Name Role Phone Shaikh NAHEED Horan Primary Care Provider [phone] Shaikh NAHEED Horan Unavailable [phone] Shaikh NAHEED Horan Primary Care Provider [phone] Flower Stokes LPN Unavailable Unavailable Charanjit Chen MD Primary Care Provider [phone] Betty Singh CALIBRATOR BAROMETERS Unavailable [phone] Anne Hartley [employer]ER Unavailable Unavailable Henok Hendrix MA Unavailable Unavailable Reason for Visit * Reason Comments Med Refill Encounter Details Date Type Department Care Team (Late st Contact Info) Description 08/03/2023 [facility] [address] [place] [address] Shaikh Horan MD [address] [place] [phone] Primary hypertension (Primary Dx); Gastroesophageal reflux disease without esophagitis; [...] Visit [facility] [address] [place] [address] Wendy Burden, CALIBRATOR BAROMETERS [address] [place] [phone] documented as of this encounter Visit Diagnoses Diagnosis Primary hypertension- Primary Unspecified essential hypertension Gastroesophageal reflux disease without esophagitis Esophageal reflux Other polyneuropathy documented in this encounter Additional Health Concerns Assessment Noted Time PHQ-9 Depression Total Score: 5 07/09/20 23 2:09 PM EST documented as of this encounter Care Teams Certified Dialysis Technician Relationship Specialty Start Date End Date Shaikh Horan MD PCP - General Internal Medicine 01/26/23 10/11/23 Shaikh Horan MD [address] [place] [phone] PCP - Devoted 04/12/23 11/10/23 Shaikh Horan MD [address] [place] [phone] PCP - General Internal Medicine 10/12/23 02/10/24 Charanjit Chen MD [address] [place] [phone] PCP - General Family Medicine 02/11/24 Flower Stokes LPN Licensed Practical Nurse Family Medicine 11/26/23 Betty Singh NP [address] [place] [phone] Nurse Practitioner Family Medicine 02/11/24 11/20/24 Anne Hartley LPN Licensed Practical Nurse Family Medicine 03/25/2405/24 Henok Hendrix MA Family Medicine 05/24/24 documented as of this encounter
--- OUTSIDE RECORDS SUMMARY | 2024-12-22 10:41 | XMS_ITS ---
Author Organization [facility] Address [address] [place] [address] Care Team Providers Care Diamond Selector Name Role Phone Charanjit Chen MD Primary Care Provider [phone] Henok Hendrix MA Unavailable Unavailable Emergency Department Transitional Care Management (TCM) Status:Closed (Closed) Start date:12/03/2024 Enrollment date:12/07/2024 Enrollment reason:Identified using hospital discharge data End date:12/08/2024 Close reason:Actively enrolled in CCM Overview Discharged from [facility] ER on 12/03. Please contact within 2 days of discharge for ERTOC and schedule a follow-up appointment if needed. Continued Care and Services Coordination
--- OUTSIDE RECORDS SUMMARY | 2024-12-22 10:41 | XMS_ITS | Clinical Summary ---
Author Organization [facility] Address [address] [place] [address] Care Team Providers Care Plate Filler Name Role Phone Charanjit Chen MD Primary Care Provider [phone] Henok Hendrix MA Unavailable Unavailable Allergies No known active allergies Medications albuterol HFA 90 mcg/act inhalerIndications :Moderate COPD (chronic obstructive pulmonary disease) ([facility]) Inhale 2 puffs every 4 (four) hours if needed for wheezing or shortness of breath 6.7 g 11/26/19 24 Active Budeson-Glycopyrro l-Formoterol (Breztri Aerosphere) 160-9-4.8 MCG/ACT aerosolIndications :Moderate COPD (chronic obstructive pulmonary disease) ([facility]) Inhale 2 puffs in the morning and 2 puffs before bedtime. 10.7 g 2 06/27/20 24 Active gabapentin (Neurontin) 300 MG capsuleIndications :Other polyneuropathy Take 1 capsule (300 mg) by mouth in the morning and 1 capsule (300 mg) in the evening and 1 capsule (300 mg) before bedtime. 270 capsule 08/02/19 25 Active lamoTRIgine (LaMICtal) 150 MG tabletIndications: Alteration of awareness Take 1 tablet (150 mg) by mouth in the morning. 30 tablet 2 09/27/19 25 Active apixaban (Eliquis) 5 MG tabletIndications: Cerebrovascular accident (CVA), unspecified mechanism (HCC) Take 1 tablet (5 mg) by mouth in the morning and 1 tablet (5 mg) before bedtime. 180 tablet 10/28/19 25 025 Active atorvastatin (Lipitor) 80 MG tabletIndications: Cerebrovascular accident (CVA), unspecified mechanism (HCC) Take 1 tablet (80 mg) by mouth Daily 90 tablet 10/28/19 25 025 Active losartan (Cozaar) 25 MG tabletIndications: Primary hypertension Take 1 tablet (25 mg) by mouth [...] 15 days 15 tablet 11/16/19 25 Active acetaminophen-code ine (Tylenol w/ Codeine #3) 300-30 MG tablet TAKE 1 TABLET BY MOUTH EVERY 6 HOURS NEEDED FOR PAIN FOR 5 DAYS 12/04/19 25 Active lacosamide (Vimpat) 100 MG tabletIndications: Alteration of awareness Take 1 tablet (100 mg) by mouth in the morning and 1 tablet (100 mg) before bedtime. 60 tablet 1 12/20/19 25 025 Active pantoprazole (ProtoNix) 40 MG EC tabletIndications: Gastroesophageal reflux disease, unspecified whether esophagitis present Take 1 tablet (40 mg) by mouth in the morning and 1 tablet (40 mg) before bedtime. Do not crush, chew, or split. 60 tablet 1 12/22/19 25 025 Active hyoscyamine (Levsin/SL) 0.125 MG SL tabletIndications: Chronic abdominal pain,Epigastric pain Take 1 tablet (0.125 mg) by mouth every 8 (eight) hours if needed for cramping for up to 7 days 21 tablet 12/22/19 25 025 Active lacosamide (Vimpat) 100 MG tabletIndications: Alteration of awareness Take 1 tablet (100 mg) by mouth in the morning and 1 tablet (100 mg) before bedtime. 60 tablet 1 09/27/19 25 12/19/2 025 Discontin ued(Reord er) Active Problems Problem Noted Date Diagnosed Date Dysuria 12/21/2024 Assessment & Plan (12/21/2024 6:33 PM EDT): Check urine and culture Epigastric pain 12/21/2024 Assessment & Plan (12/21/2024 6:34 PM EDT): Stop esomeprazole Trial pantoprazole Check labs UTI symptoms 11/02/2024 Overview (11/02/2024): Pt came in today to the office to check for UTI symptoms via POCT urinalysis dipstick Anxiety 10/28/2024 Malignant neoplasm of unspec ified part of left bronchus or lung 10/27/2024 Adenocarcinoma of left lung 10/27/2024 Assessment & Plan (10/27/2024 4:59 PM EDT): Continue with oncology Centrilobular emphysema 10/27/2024 long-term (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 steroids 10/11 Mass of right parotid gland 10/27/2024 Prediabetes 10/06/2024 Family history of prothrombin gene mutation 09/11 CVA (cerebral vascular accident) 05/18/2024 Assessment & Plan (10/28/2024 11:55 AM EDT): recent hospitalization at [facility] around 10/04/24, was also sent to [facility] [...] to be seen Gastroesophageal reflux disease 05/18/2024 Assessment & Plan (12/21/2024 6:35 PM EDT): Stop esomeprazole Trial pantoprazole Carcinoma in situ of ascending colon 05/10/2024 Heart disease 04/27/2024 Mass of left lung 01/04/2024 Assessment & Plan (05/31/2024 9:44 AM EST): Bronchoscopy done: PET SCAN indicated advancing growth of lung nodules; Had EBUS. Following with Dr. Olamide Lange/onco closely. Referral sent to GI: Increased activity into ascending colon on PET scan. Had colonoscopy, is scheduled for additional. Pathology reports pending. Assessment & Plan (03/25/2024 1:46 PM EDT): Bronchoscopy done: PET SCAN indicated advancing growth of lung nodules; Following with Dr. Olamide Lange/oncjaciel closely. Referral sent to GI: Increased activity into ascending colon on PET scan. Recommended colonoscopy: Having colonoscopy tomorrow Assessment & Plan (01/26/2024 9:26 AM EDT): 2.2 cm left upper lobe mass on CTA performed at [facility] on 12/27/23 in ED visit. Smoker - recently quit LDCT 08/04 - No left upper lobe mass. PET scan - lung nodule in left upper lobe is hypermetabolic. Refer to Oncology. Dr Grossman, also made aware. Assessment & Plan (01/06/2024 2:59 PM EDT): 2.2 cm left upper lobe mass on CTA performed at [facility] on 12/27/23 in ED visit. Smoker - [...] upper lobe mass on CTA performed at [facility] on 12/27/23 in ED visit. Smoker - [...] confused after regaining consciousness. Patient went to [facility]. CTA - No PE Will get an [...] Chronic abdominal pain 10/12/2023 Assessment & Plan (12/21/2024 6:33 PM EDT): DD: constipation, GERD, UTI, ulcer Hx colon cancer Check labs, check CT Changed PPI from nexium to pantoprazole, and add anti spasmodic Assessment & Plan (02/22/2024 2:51 PM EDT): [...] aortic aneurysm (AAA) witho ut rupture 07/09/2023 Assessment & Plan (12/21/2024 6:34 PM EDT): Hx of this, doubt pain related to this Will get updated CT Hyperlipidemia 07/09/2023 Assessment & Plan (10/27/2024 6:44 [...] smoking. Tobacco dependency 07/09/2023 Assessment & Plan (12/21/2024 6:35 PM EDT): The patient has been advised of the risks of continued smoking: stroke, MT, all forms of cancer, lung disease, and . Options for quitting smoking include: cold turkey, hypnosis, acupuncture, nicotine replacement meds (gum, lozenges, and patches), Buproprion, and Varenicline. At this time pt is encouraged to evaluate their goals for wanting to quit smoking, and reach out to provider when ready to start this process Assessment & Plan (10/27/2024 6:45 AM EDT): The patient has been advised of the risks of continued smoking: stroke, MT, all forms of cancer, lung disease, and [...] Encounters Date Type Department Care Team Description 12/21/2024 4:00 PM EDT Office Visit [facility] [address] [place] [phone] Wendy Burden NP Epigastric pain (Primary Dx); Gastroesophageal reflux disease, unspecified whether esophagitis present; Infrarenal abdominal aortic aneurysm (AAA) without rupture; Chronic abdominal pain; Dysuria; Tobacco dependency 12/21/2024 Bamboo flowsheet [facility] [address] [place] [address] Wendy Burden NP 12/19/2024 Refill [facility] [address] [place] [address] Wendy Burden NP Alteration of awareness 12/14/2024 Clinisync Result Encounter [facility] External Department Unsolicited Provider, Generic External Data 12/07/2024 Patient Outreach [place] [address] [place] [address] Henok Hendrix MA 12/06/2024 Orders Only [facility] [address] [place] [address] Adam Mckeon MD 12/02/2024 Patient Outreach [address] [place] [address] Henok Hendrix MA 12/01/2024 Orders Only [facility] [address] [place] [address] Wendy Burden NP Cerebrovascular accident (CVA), unspecified mechanism (HCC) (Primary Dx); Syncope and collapse; Peripheral polyneuropathy 11/21/2024 Patient Outreach [place] [address] [place] [address] Henok Hendrix MA 11/15/2024 Refill [facility] [address] [place] [address] Wendy Burden NP Anxiety 11/15/2024 Orders Only [facility] [address] [place] [address] Wendy Burden NP Mixed hyperlipidemia (Primary Dx) 11/14/2024 Patient Outreach [place] [address] [place] [address] Henok Hendrix MA 11/09/2024 Patient Outreach [place] [address] [place] [address] Henok Hendrix MA 11/08/2024 Patient Outreach [place] [address] [place] [place] [address] Henok Hendrix MA 11/02/2024 Patient Outreach [place] [address] [place] [address] Henok Hendrix [place] 11/02/2024 Refill [facility] [address] [place] [address] Wendy Burden NP Urinary tract infection symptoms (Primary Dx); UTI symptoms 11/01/2024 Patient Outreach [place] [address] [place] [address] Henok Hendrix MA 10/28/2024 Refill [facility] [address] [place] [address] Wendy Burden NP Anxiety (Primary Dx); Psychophysiological insomnia 10/27/2024 10:30 AM EDT Office Visit [facility] [address] [place] [address] Wendy Burden NP Cerebrovascular accident (CVA), unspecified mechanism (HCC) (Primary Dx); Malignant neoplasm of unspecified part of left bronchus or lung (HCC); Adenocarcinoma of left lung (HCC); Mixed hyperlipidemia ; Tobacco dependency; Peripheral polyneuropathy; Primary hypertension ; Screening mammogram for breast cancer 10/27/2024 Patient Outreach [place] [address] [place] [address] Henok Hendrix MA 10/27/2024 Patient Outreach [place] [address] [place] [address] Henok Hendrix [place] 10/19/2024 Patient Outreach [place] [address] [place] [address] Charlotte Us LPN 10/11/2024 Patient Outreach [place] [address] [place] [address] Betty Naqvi MA 10/05/2024 Orders Only [facility] [address] [place] [address] Charanjit Chen MD 10/04/2024 Clinisync Result Encounter [facility] External Department Unsolicited Provider, Generic External Data 09/26/2024 10:40 AM EDT Office Visit [place] [address] [address] Kianna Roman PA Alteration of awareness (Primary Dx); History of stroke 09/26/2024 Refill [facility] [address] [place] [address] Charanjit Chen MD Primary hypertension (Primary Dx) 09/26/2024 Telephone [place] [address] [address] Kianna Roman PA 09/26/2024 Bamboo flowsheet [place] [address] [address] Kianna Roman PA from Last [...] often do you attend chur ch or spiritism services? Never 12/08/2023 Do you belong to any clubs o r organizations such as muslim groups, unions, fraternal or athletic groups, or [...] Recorded Patient Health Questionnaire-2 Score 1 08/02/2024 [facility] Questionnaire Answer Date [...] a intermediate (including now)? No 12/08/2023 Comments No Sex [...] 9.6 oz) 12/21/2024 4:27 PM EDT Height 157.5 cm (5' 2 ) 09/26/2024 10:21 AM EDT Body Mass Index 27 09/26/2024 10:21 AM EDT Plan of Treatment Upcoming Encounters Date Type Department Care Team (Late st Contact Info) Description 01/26/2025 10:30 AM EDT Office Visit [facility] [address] [place] [address] Wendy Burden NP [address] [place] [address] Health Maintenance Due Date Last Done Comments [...] Diagnosis Comments [facility] CMP (CMP) (FOR [facility] USE) Routine 12/14/2024 11:00 AM EDT ALL CBC WITH AUTO DIFF Routine 12/14/2024 11:00 AM EDT XR CHEST 1 VIEW Routine 12/06/2024 9:54 AM EDT POCT URINALYSIS REFLEX Routine 11/02/2024 12:25 PM EDT POCT URINALYSIS DIPSTICK Routine 11/02/2024 12:22 PM EDT UTI symptoms MRI HEAD/BRAIN WO CONTRAS Routine 10/05/2024 1:54 PM EDT [place] [facility] Routine 10/04/2024 3:40 PM EDT [facility] FERRITIN Routine 10/04/2024 1:42 PM EDT METRO IRON AND TIBC Routine 10/04/2024 1 :42 PM EDT ALL C REACTIVE PROTEIN Routine 10/04/2024 1:42 PM EDT [facility] CMP (CMP) (FOR [facility] USE) Routine 10/04/2024 1:42 PM EDT ALL SED RATE Routine 10/04/2024 1:42 PM EDT ALL CBC WITH AUTO DIFF Routine 10/04/2024 1:42 PM EDT from Last 3 Months Results * (ABNORMAL) [facility] CMP (CMP) (FOR [facility] USE) (12/14/2024 11:00 AM EDT) Only the most recent of2 resultswithin the time period is included. SODIUM 143 136 - 145 mmol/L [facility] POTASSIUM 4.1 3.5 - 5.1 mmol/L [facility] CHLORIDE 105 98 - 107 mmol/L [facility] CARBON DIOXIDE 30.4 21.0 - 32.0 mmol/L [facility] ANION GAP 11.7 TB[facility] GLUCOSE 107(H) 74 - 106 mg/dL [facility] BLOOD UREA NITROGEN 20.0(H) 7.0 - 18.0 mg/dL [facility] CREATININE 0.90 0.55 - 1.02 mg/dL [facility] TBH EGFR-AF SPANISH >60 >=60 mL/min/1. 73m 2 TBH TBH EGFR-NON AF SPANISH >60 >=60 mL/min/1. 73m 2 TBH BUN [...] Narrative [facility]INIS[facility]NC - 12/14/2024 12:15 PM EDT us Generic External Data Provider CLINISYNC F inal Result [facility] * (ABNORMAL) ALL CBC WITH AUTO DIFF (12/14/2024 11:00 AM EDT) Only the most recent of2 resultswithin the time period is included. [facility] WBC 10.7 4.0 - 11.0 10 3/uL [...] Narrative CLINISYNC - 12/14/2024 11:16 AM EDT Generic External Data Provider RADHAARNAUDDHIRAJ Danika georges Result DAN[facility] * XR chest 1 view (12/06/2024 9:54 AM EDT) Anatomical Region Laterality Modality Chest Radiographic Meagan ging Adam Mckeon MD IMG XR PROCEDURES Final Resul t * Urinalysis with reflex microscopic (11/02/2024 12:25 [...] - 9 Protein, UA Trace Negative - 2000(20) ++++ mg/dL Urobilinogen, UA 0.2 0.2 - 12 mg/dL Leukocytes, UA Positive Negative - 500+++ Padma/mcL Comment:small Nitrite, UA Negative Negative - Positive Urine 11/02/2024 12:2 2 PM EDT Wendy Burden NP POINT OF CARE TEST ENTER/EDIT O RDERABLES Final Result * MRI HEAD/BRAIN WO CONTRAS (10/05/2024 1:54 PM EDT) Anatomical Region Laterality Modality Radiographic Meagan ging Charanjit Chen MD IMG XR PROCEDURES Final Result * (ABNORMAL) [place] [facility] (10/04/2024 3:40 PM EDT) [facility] URINE CULTURE - [facility] [place] Culture - [facility] Testing performed [facility]URE [place] [facility] [address] [place] [address] [facility] URINE CULTURE - [facility] O:KLEPNE Isolated [facility] URINE CULTURE - FR Urine Culture - FR [place] Count [facility] URINE CULTURE - FR >100,000 CFU/ml [facility] URINE CULTURE [place] [facility] Organism: 1.1 Antibiotic Interpretation BAILEE Status [facility] URINE CULTURE - FR Amikacin S F(S) TB URINE CULTURE - FR Amoxicillin/Clavul anate S F(S) TB URINE CULTURE - [facility] Aztreonam S F(S) TB URINE CULTURE - [facility] Ceftazidime S F(S) TB URINE CULTURE - [facility] Ceftazidime/Avibac hamlin S F(S) TB URINE CULTURE - [facility] Ceftolozane/Tazoba ctam S F(S) TB URINE CULTURE - [facility] Ciprofloxacin S F(S) TB URINE CULTURE - [facility] Ertapenem S F(S) TB[facility] URINE CULTURE - [facility] Gentamicin S F(S) TB URINE CULTURE - [facility] Levofloxacin S F(S) TB URINE CULTURE - [facility] Meropenem S F(S) [facility] URINE CULTURE - [facility] Meropenem/Vaborbac hamlin S F(S) [facility] URINE CULTURE - [facility] Nitrofurantoin S F(S) TB[facility] URINE CULTURE - [facility] Tetracycline S F(S) TB URINE CULTURE - [facility] Tigecycline S F(S) TB[facility] URINE CULTURE - [facility] Tobramycin S F(S) [facility] URINE CULTURE - [facility] Ampicillin/Sulbact am S F(S) TB[facility] URINE CULTURE - [facility] Cefazolin S F(S) TB[facility] URINE CULTURE - [facility] Cefepime S F(S) TB URINE CULTURE - [facility] Ceftriaxone S F(S) TB URINE CULTURE - [facility] Cefuroxime S F(S) TB URINE CULTURE - [facility] Piperacillin/Tazob actam S F(S) [facility] [place]URE [place] [facility] Trimethoprim/Sulfa S F(S) [facility] 10/04/2024 3:40 PM EDT 10/04/2024 4:31 PM EDT Narrative CLINISYNC - 10/07/2024 2:16 PM EDT Generic External Data Provider LAB BLOOD ORDERAB LES Final Result Performing Organization Address City/[facility]/ZIP Co de Phone Number [facility] * (ABNORMAL) METRO IRON AND TIBC (10/04/2024 1:42 PM EDT) Pathologist [facility] TB IRON 33.0(L) 50.0 - 170.0 ug/dL TBH TBH TOTAL IRON BINDING CAPACITY 340.0 250.0 - 450.0 ug/dL TBH TBH PERCENT IRON SATURATION 9.7 % TB 10/04/2024 1:42 PM EDT 10/04/2024 1:48 PM EDT Narrative CLINISYNC - 10/04/2024 2:35 PM EDT Generic External Data Provider CLINISYNC F inal Result Performing Organization Address [facility] de Phone Number [facility] * [facility] FERRITIN (10/04/2024 1:42 PM EDT) [facility] FERRITIN 29.0 8.0 - 252.0 ng/mL TB 10/04/2024 1:42 PM EDT 10/04/2024 1:48 PM EDT Narrative CLINISYNC - 10/04/2024 2:39 PM EDT Generic External Data Provider CLINISYNC F inal Result Performing Organization Address [facility] Co de Phone Number ZACKARYNY [facility] * (ABNORMAL) ALL SED RATE (10/04/2024 1:42 PM EDT) Pathologist [facility] TB SED RATE 78(H) <=30 mm/hr TB 10/04/2024 [...] CLINISYNC [facility] from Last 3 Months Insurance [facility] MEDICARE ADVANTAGE Care Teams Plate Filler Relationship Specialty Start Date End Date Charanjit Chen MD [address] [place] [address] PCP - General Family Medicine 02/11/24 Henok Hendrix MA Family Medicine 05/24/24
--- OUTSIDE RECORDS SUMMARY | 2024-12-22 10:41 | XMS_ITS | Encounter Summary ---
Author Organization [facility] Address [address] [place] [address] Care Team Providers Care Milieu Coordinator Name Role Phone Shaikh NAHEED Horan Primary Care Provider [phone] Shaikh NAHEED Horan Unavailable [phone] Shaikh NAHEED Horan Primary Care Provider [phone] [facility] LPN Unavailable Unavailable Charanjit Chen MD Primary Care Provider [phone] Betty Singh WRINKLE CHASER Unavailable [phone] Anne Hartley PLUMBING MANAGER Unavailable Unavailable Henok Hendrix MA Unavailable Unavailable Reason for Visit * Reason Comments Med Refill Encounter Details Date Type Department Care Team (Late st Contact Info) Description 08/06/2023 [facility] [address] [place] [address] Shaikh Horan MD [address] [place] [address] Social History Tobacco Use Types Packs/Day Years [...] [facility] [address] [place] [address] Wendy Burden NP [address] [place] [address] documented as of this encounter Visit Diagnoses Not on filedocumented in this encounter Additional Health Concerns Assessment Noted Time PHQ-9 Depression Total Score: 5 07/09/20 23 2:09 PM EST documented as of this encounter Care Teams Milieu Coordinator Relationship Specialty Start Date End Date Shaikh Horan MD PCP - General Internal Medicine 01/26/23 10/11/23 Shaikh Horan MD [address] [place] [address] PCP - Devoted 04/12/23 11/10/23 Shaikh Horan MD [address] [place] [address] PCP - General Internal Medicine 10/12/23 02/10/24 Charanjit Chen MD [address] [place] [address] PCP - General Family Medicine 02/11/24 [place] LPN Licensed Practical Nurse Family Medicine 11/26/23 Betty Singh NP [address] [place] [address] Nurse Practitioner Family Medicine 02/11/24 11/20/24 Anne Hartley LPN Licensed Practical Nurse Family Medicine 03/25/2405/24 Henok Hendrix MA Family Medicine 05/24/24 documented as of this encounter
--- OUTSIDE RECORDS SUMMARY | 2024-12-22 10:41 | XMS_ITS | Encounter Summary ---
Author Organization [facility] Address [address] [place] [address] Care Team Providers Care Drill Press Tender Name Role Phone Shaikh NAHEED Horan Primary Care Provider [phone] [facility] LPN Unavailable Unavailable Charanjit Chen MD Primary Care Provider [phone] Betty Singh [employer] [facility] Unavailable [phone] Anne Hartley FLIGHT ENGINEER INSTRUCTOR Unavailable Unavailable Henok Hendrix MA Unavailable Unavailable Encounter Details Date Type Department Care Team (Late st Contact Info) Description 12/30/2023 Abstract [facility] [address] [place] [address] Shaikh Horan MD [address] [place] [address] Social History Tobacco Use Types Packs/Day Years [...] How often do you attend chur or advent services? Never 12/08/2023 Do you belong to any clubs o r organizations such as anabaptist groups, unions, fraternal or athletic groups, or [...] Recorded Patient Health Questionnaire-2 Score 0 11/09/2023 [facility] of Occupat ional Health - Occupational Stress [...] nursing home (including now)? No 12/08/2023 Comments Unknown [...] Visit [facility] [address] [place] [address] Wendy Burden NP [address] [place] [address] documented as of this encounter Visit Diagnoses Not on filedocumented in this encounter Additional Health Concerns Assessment Noted Time PHQ-9 Depression Total Score: 5 07/09/20 23 2:09 PM EST A fall risk assessment has been complete d for the patient 12/08/2023 9:26 AM EDT documented as of this encounter Care Teams Drill Press Tender Relationship Specialty Start Date End Date Shaikh Horan MD [address] [place] [address] PCP - General Internal Medicine 10/12/23 02/10/24 Charanjit Chen MD [address] [place] [address] PCP - General Family Medicine 02/11/24 F[place] LPN Licensed Practical Nurse Family Medicine 11/26/23 Betty Singh NP [address] [place] [address] Nurse Practitioner Family Medicine 02/11/24 11/20/24 Anne Hartley LPN Licensed Practical Nurse Family Medicine 03/25/2405/24 Henok Hendrix MA Family Medicine 05/24/24 documented as of this encounter
--- OUTSIDE RECORDS SUMMARY | 2024-12-22 10:41 | XMS_ITS | Encounter Summary ---
Author Organization [facility] Address [address] [place] [address] Care Team Providers Care Roll Icer Name Role Phone Shaikh NAHEED Horan Primary Care Provider [phone] Shaikh NAHEED Horan Unavailable [phone] Shaikh NAHEED Horan Primary Care Provider [phone] Flower Stokes LPN Unavailable Unavailable Charanjit Chen MD Primary Care Provider [phone] Betty Singh BIOTECHNICIAN Unavailable [phone] Anne Hartley RN CCU Unavailable Unavailable Henok Hendrix MA Unavailable Unavailable Reason for Visit * Reason Comments Med Refill Encounter Details Date Type Department Care Team (Late st Contact Info) Description 07/02/2023 [facility] [address] [place] [address] Shaikh Horan MD [address] [place] [address] Gastroesophageal reflux disease without esophagitis (Primary Dx); [...] [facility] [address] [place] [address] Wendy Burden NP [address] [place] [address] documented as of this encounter Visit Diagnoses Diagnosis Gastroesophageal reflux disease without esophagitis- Primary Esophageal reflux Other polyneuropathy documented in this encounter Care Teams Roll Icer Relationship Specialty Start Date End Date Shaikh Horan MD PCP - General Internal Medicine 01/26/23 10/11/23 Shaikh Horan MD [address] [place] [phone] PCP - Devoted 04/12/23 11/10/23 Shaikh Horan MD [address] [place] [address] PCP - General Internal Medicine 10/12/23 02/10/24 Charanjit Chen MD [address] [place] [phone] PCP - General Family Medicine 02/11/24 Flower Stokes LPN Licensed Practical Nurse Family Medicine 11/26/23 Betty Singh NP [address] [place] [address] Nurse Practitioner Family Medicine 02/11/24 11/20/24 Anne Hartley LPN Licensed Practical Nurse Family Medicine 03/25/2405/24 Henok Hendrix MA Family Medicine 05/24/24 documented as of this encounter
--- OUTSIDE RECORDS SUMMARY | 2024-12-22 10:41 | XMS_ITS ---
Author Organization [facility] Address [address] [place] [address] Care Team Providers Care Youth Accommodation Support Worker Name Role Phone Charanjit Chen MD Primary Care Provider [phone] Henok Hendrix MA Unavailable Unavailable Chronic Care [...]
--- OUTSIDE RECORDS SUMMARY | 2024-12-22 10:41 | XMS_ITS | Encounter Summary ---
Author Organization [facility] Address [address] [place] [address] Care Team Providers Care Hay Rake Operator Name Role Phone Charanjit Chen MD Primary Care Provider [phone] Henok Hendrix MA Unavailable Unavailable Encounter Details Date Type Department Care Team (Late st Contact Info) Description 12/21/2024 Bamboo flowsheet [facility] [address] [place] [address] Wendy Burden, SHAREPOINT ADMINISTRATOR [address] [place] [address] Social History Tobacco Use Types Packs/Day Years [...] How often do you attend chur or protestant services? Never 12/08/2023 Do you belong to any clubs o r organizations such as religion groups, unions, fraternal or athletic groups, or [...] Recorded Patient Health Questionnaire-2 Score 1 08/02/2024 [facility] - Occupational Stress Questionnaire Answer Date [...] to sleep or slept in a senior living (including now)? No 12/08/2023 Comments No Sex [...] Visit [facility] [address] [place] [address] Wendy Burden NP [address] [place] [address] documented as of this encounter Visit Diagnoses Not on filedocumented in this encounter Additional Health Concerns Assessment Noted Time PHQ-9 Depression Total Score: 10 025 11:00 AM EST A fall risk assessment has been complete d for the patient 12/08/2023 9:26 AM EDT documented as of this encounter Care Teams Hay Rake Operator Relationship Specialty Start Date End Date Charanjit Chen MD [address] [place] [address] PCP - General Family Medicine 02/11/24 Henok Hendrix MA Family Medicine 05/24/24 documented as of this encounter
--- OUTSIDE RECORDS SUMMARY | 2024-12-22 10:41 | XMS_ITS | Encounter Summary ---
Author Organization [facility] Address [address] [place] [address] Care Team Providers Care Paper Wood Cutter Name Role Phone Unavailable Primary Care Provider Unavailabl e Source Comments In the event this information is protected by the Federal Confidentiality of Alcohol and Drug AbusePatient Records regulations: The Federal rules restrict any use of the information to criminally investigate or prosecute any alcohol or drug abuse patient.[facility] Encounter Details Date Type Department Care Team (Late st Contact Info) Description 05/24/2024 Lab Requisition [facility] [address] [place] [address] Javier Villanueva [address] [phone] Person encountering health services to consult on [...] EST) Case Report Surgical Pathology Report Case: [id number] Authorizing Provider: Javier Villanueva Collected: 05/24/2024 11:27 AM Ordering Location: [facility] Received: 05/24/2024 11:26 AM [facility] Pathologist: Leroy Zayas MD, PhD Specimen: Slide(s), 16 SLIDES [id number] 05/26/2024 1:51 PM EST [facility] FINAL DIAGNOSIS A. 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 - See comment. 05/26/2024 1:51 PM EST [facility] at 1351 EST Diagnosis Comment Thank you for allowing us the opportunity to review this case in consultation representing the colon polyp biopsies from the 73-year-old female. Per provided letter and patient note, the umbrella cutter felt the polyp was completely removed. Histologic [...] to contact the GI consultation service at [phone] with questions or if additional follow-up information becomes available. This case was reviewed in conjunction with the GI pathology fellow, Sangita Rai M.D. 05/26/2024 1:51 PM EST [facility] Clinical History CONSULT REQUESTED 05/26/2024 1:51 PM EST [facility] Performing Lab Diagnostic interpretation performed at: [facility], [address] [place] [address] CLIA# [id number] Glycerin Operator: Henri Mireles MD 05/26/2024 1:51 PM EST [facility] Blocks or Slides MICROSCOPE SLIDE / Unknown 05/24/2024 11:27 AM EST 05/24/2024 11:26 AM EST us Javier Villanueva SURGICAL PATHOLOGY Final Result [facility] [address] [place], [place] [id number], documented in this encounter Visit Diagnoses Diagnosis Person encountering health services to consult on behalf of another person Other person consulting on behalf of another person documented in this encounter
--- OUTSIDE RECORDS SUMMARY | 2024-12-22 10:41 | XMS_ITS | Encounter Summary ---
Author Organization [facility] Address [address] [place] [address] Care Team Providers Care Copyright Manager Name Role Phone Charanjit Chen MD Primary Care Provider [phone] Henok Hendrix MA Unavailable Unavailable Encounter Details Date Type Department Care Team (Late st Contact Info) Description 12/07/2024 Patient Outreach [facility] [address] [place] [address] Henok Hendrix MA Social History Tobacco Use [...] often do you attend chur ch or cheondoism services? Never 12/08/2023 Do you belong to any clubs o r organizations such as christian groups, unions, fraternal or athletic groups, or [...] Patient Health Questionnaire-2 Score 1 08/02/2024 [facility] - Occupational Stress Questionnaire Answer Date [...] place to sleep or slept in a retirement (including now)? No 12/08/2023 Comments No Sex and Gender Information Value Date Recorded Sex Assigned at Not on file Legal Sex Female 12:29 PM EDT Gender Identity Not on file Sexual Orientation Not on file documented as of this encounter Progress Notes * Henok Hendrix MA - 12/07/2024 11:59 PM EDT Images from the original note were not included. Flowsheet Row Patient Outreach from 12/07/2024 in [facility] with Henok Hendrix MA Hospital Information ED, Hospital or Snf Facility Discharge? ED Patient has been contacted within 2 days of being seen in the ED Yes Diagnosis chest wall pain Discharge Date 12/03/24 Discharged To: Home Setting Discharge Hospital [facility] Engagement Admission Date 12/03/24 Medications Discharge medications reviewed and reconciled from hospital? Yes Is the patient having any side effects they believe may be caused by any medication additions or changes? No Does the patient have all medications ordered at discharge? Yes Nursing Interventions No intervention needed Prescription Comments Tylenol with Codeine Is the patient taking all medications as directed (includes completed medication regime)? Yes Nursing Interventions Nurse provided patient education Appointments Does the patient have a primary care provider? Yes [Gunner FARFAN / Tejinder ELLSWORTH] Nursing Interventions Verified appointment date/time/provider [12/21 1600] Does the patient have any upcoming specialty appointments? No Nursing Interventions Advised patient to keep appointment Self Management Does patient have home health? no What Durable Medical Equipment (DME) was ordered? none Patient Teaching Does the patient have access to their discharge instructions? Yes Nursing Interventions Reviewed instructions with patient What is the patient's perception of their health status since discharge? Same Is the patient/caregiver able to teach back the hierarchy of who to call/visit for symptoms/problems? PCP, Specialist, Home Health nurse, Urgent Care, ED, 911 Yes If the patient is a current smoker, are they able to teach back resources for cessation? [id number] Wrap Up Is the patient/caregiver familiar with Advance Care Planning? Yes Would the patient like more information on Advance Care Planning? No Wrap Up Additional Comments EKG, chest XR, Labs Pt presented for chest pain in Rt upper lateral rib area. Records in chart for review. Pt is taking medication without adverse reaction, tolerating well. Pt is still having the chest pain but the medication is helping with relief. Pt did not understand why they prescribed that med, so financial underwriter explained to her that they may have felt her pain was muscular. Meds reconciled in chart, ER YONI completed at this time. documented in this encounter Plan of Treatment Upcoming Encounters Date Type Department Care Team (Late st Contact Info) Description 01/26/2025 10:30 AM EDT Office Visit [facility] [address] [place] [address] Wendy Burden NP [address] [place] [address] documented as of this encounter Visit Diagnoses Diagnosis 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 Hypertension, unspecified type documented in this encounter Additional Health Concerns Assessment Noted Time PHQ-9 Depression Total Score: 10 025 11:00 AM EST A fall risk assessment has been complete d for the patient 12/08/2023 9:26 AM EDT documented as of this encounter Care Teams Copyright Manager Relationship Specialty Start Date End Date Charanjit Chen MD [address] [place] [address] PCP - General Family Medicine 02/11/24 Henok Hendrix MA Family Medicine 05/24/24 documented as of this encounter
--- OUTSIDE RECORDS SUMMARY | 2024-12-22 10:41 | XMS_ITS | Encounter Summary ---
Author Organization [facility] Address [address] [place] [address] Care Team Providers Care Corporate Buyer Name Role Phone Flower Stokes LPN Unavailable Unavailable Charanjit Chen MD Primary Care Provider [phone] Betty Singh NP Unavailable [phone] Anne Hartley LPN Unavailable Unavailable Henok Hendrix [...] often do you attend chur ch or mormon services? Never 12/08/2023 Do you belong to any clubs o r organizations such as buddhism groups, unions, fraternal or athletic groups, or [...] Recorded Patient Health Questionnaire-2 Score 0 02/22/2024 [facility] Questionnaire Answer Date [...] a longterm (including now)? No 12/08/2023 Comments Unknown Sex [...] Office Visit [facility] [address] [place] [address] Wendy Burden NP [address] [place] [address] documented as of this encounter Procedures Procedure [...] PM EDT Narrative 03/09/2024 2:49 [place] [address] XRay Report Signed Patient: BHUPENDRA MIRANDA MR#: [id number] : 1950 Acct:[id number] Age/Sex: 73 / F ADM Date: 03/09/24 Loc: SURGOUT Attending Dr: Leigh Thompson D.O. Ordering Physician: Leigh Thompson D.O. Date of Service: 03/09/24 Procedure(s): XR chest 1V Accession Number(s): [id number] cc: BETTY SINGH; Leigh Thompson D.O. [place] [id number] Patient Name: BHUPENDRA MIRANDA MRN: [id number] date: 1950 Sex: F Assigned Patient Location: [facility] Current Patient Location: [facility] Accession/Order Number: [id number] Exam Date: 03/09/2024 14:00 Report Date: 03/09/2024 [...] Signed By: 03/09/24 1449 DD/ 46 TD/TT: Tile And Marble Installer: Procedure Note Radiology, Radiologist, - 03/09/2024 [facility] [place] [id number] XRay Report Signed Patient: BHUPENDRA MIRANDA MMR#: [id number] : 1950cct:[id number] Age/Sex: 73 / FADM Date: 03/09/24 Loc: SURGOUT Attending Dr: Legih Thompson D.O. Ordering Physician: Leigh Thompson D.O. Date of Service: 03/09/24 Procedure(s): XR chest 1V Accession Number(s): [id number] cc: BETTY SINGH; Leigh Thompson D.O. [facility] [place] [id number] Patient Name: BHUPENDRA MIRANDA MRN: [facility]:[id number] date: 1950 Sex: F Assigned [facility] Current Patient Location: [facility] Accession/Order Number: [id number] Exam Date: 03/09/2024 14:00 Report Date: 03/09/2024 [...] M.D. Signed By:03/09/24 144 DD/ 46 TD/TT: Tile And Marble Installer: [facility] [place] Data [place] [facility] Final Result * COCCIDIOIDES ABS, IGG/IGM, EIA (03/09/2024 2:39 PM EDT) COCCIDABS.1 0.5 . EIA Units [facility] Comment: Negative <1.0 Indeterminate 1.0-1.4 Positive >1.4 COCCIDABS.2 0.0 . EIA Units [facility] Comment: Negative <1.0 Indeterminate 1.0-1.4 Positive >1.4 Performed at: [address] [id number] Sample Supervisor: Andrea Stevens MD, Phone: [phone] 03/09/2024 2:39 PM EDT 03/09/2024 2:43 PM EDT Narrative [facility] - 03/12/2024 8:[address] [facility] [place] Data [place] LAB BLOOD ORDERAB LES Final Result Performing Organization Address City/[facility]/ZIP Co de Phone Number [facility] * HISTOPLASMA CAPSULATUM ABS. (03/09/2024 2:39 PM EDT) HISTOPLASMA MYCELIAL CF AB. Negative Neg:<1:2 [facility] HISTOPLASMA YEAST CF AB Negative Neg:<1:2 [facility] Comment: Performed at: [address] [id number] Sample Supervisor: Erick Khalil MD, Phone: [phone] 03/09/2024 2:39 PM EDT 03/09/2024 2:43 PM EDT Narrative [facility] - 03/13/2024 2:07 PM EDT Generic External Data Provider LAB BLOOD ORDERAB LES Final [facility] * BLASTOMYCES ABS, QN, DID (03/09/2024 2:39 PM EDT) BLASTOMYCES ABS, QN, DID Negative Neg:<1:1 [facility] Comment: Performed at: - [facility] [id number] Sample Supervisor: Erick Khalil MD, Phone: [phone] 03/09/2024 2:39 PM EDT 03/09/2024 2:43 PM EDT Narrative [facility] - 03/13/2024 2:07 PM EDT us Generic External Data Provider LAB BLOOD ORDERAB LES Final Result [facility] documented in this encounter Visit Diagnoses Not on filedocumented in this encounter Additional Health Concerns Assessment Noted Time PHQ-9 Depression Total Score: 5 07/09/20 23 2:09 PM EST A fall risk assessment has been complete d for the patient 12/08/2023 9:26 AM EDT documented as of this encounter Care Teams Corporate Buyer Relationship Specialty Start Date End Date Charanjit Chen MD [address] [place] [address] PCP - General Family Medicine 02/11/24 Flower Stokes LPN Licensed Practical Nurse Family Medicine 11/26/23 Betty Singh NP [address] [place] [address] Nurse Practitioner Family Medicine 02/11/24 11/20/24 Anne Hartley LPN Licensed Practical Nurse Family Medicine 03/25/2405/24 Henok Hendrix MA Family Medicine 05/24/24 documented as of this encounter
--- OUTSIDE RECORDS SUMMARY | 2024-12-22 10:41 | XMS_ITS | Clinical Summary ---
Author Organization [facility] Address [id number] [address] [place] [address] Care Team Providers Care Piercing Mill Operator Name Role Phone Singh, Betty Jonathan FOLDER TAPER OPERATOR-TAI CHI INSTRUCTOR Primary Care Pr ovider Allergies No known [...] Encounters Date Type Department Care Team Description 12/19/2024 Telephone [facility] A Department of [facility] [address] [facility] [address] [place] [address] Brenna Morel referral 10/07/2024 Orders Only [facility] [place] [address] Transcribe, Orders Support User Pain (Primary Dx) 10/05/2024 11:55 AM EDT Ancillary Procedure [facility] [address] [place] [phone] Pain 10/05/2024 11:15 AM EDT Ancillary Procedure [facility] [address] [place] [address] Pain 10/05/2024 Orders Only [facility] [address] [place] [address] Transcribe, Orders Support User Pain (Primary Dx) 10/04/2024 4:26 PM EDT - 10/07/2024 11:23 AM EDT Emergency [facility] St[facility] [address] [place] [phone] Discharge Disposition: Telemedicine Discharge 10/04/2024 3:25 PM EDT Ancillary Procedure [facility] [place] [address] Pain 10/04/2024 3:20 PM EDT Ancillary Procedure [facility] [address] [place] [phone] Pain 10/04/2024 2:25 PM EDT Ancillary Procedure [facility] [address] [place] [phone] Pain from Last 3 Months Immunizations Immunization Administration Dates Next Due Pneumococcal Conjugate 13-Valent 07/03/2022 Pneumococcal Conjugate 20-valent 07/09/2022 Social History Tobacco Use Types Packs/Day Years Used Date Smoking Tobacco: Former Cigarettes Smokeless Tobacco: Never Tobacco Cessation:Counseling Given: Not Answered Alcohol Use Standard Drinks/Week Comments Not Currently 0 (1 standard drink = 0.6 oz pur e alcohol) [facility] Utilities Answer Date Recorded In the past 12 months has th e electric, gas, oil, or water company [...] al Result from Last 3 Months Insurance [facility] MEDICARE Advance Directives * Full Code (Latest Code Status on File) Date Activated Date Inactivated Comments 06/15/2024 1:10 PM 06/17/2024 7:37 PM Care Teams Piercing Mill Operator Relationship Specialty Start Date End Date Betty Singh, FOLDER TAPER OPERATOR-TAI CHI INSTRUCTOR [address] [place] [address] PCP - General Nurse Practitioner 06/13/24
--- OUTSIDE RECORDS SUMMARY | 2024-12-22 10:41 | XMS_ITS | Encounter Summary ---
Author Organization [facility] Address [address] [place] [address] Care Team Providers Care Feed Mill Operator Name Role Phone Charanjit Chen MD Primary Care Provider [phone] Betty Singh STAINED GLASS JOINER Unavailable [phone] Henok Hendrix MA Unavailable Unavailable Encounter Details Date Type Department Care Team (Late st Contact Info) Description 10/05/2024 Orders Only [facility] [address] [place] [address] Charanjit Chen MD [address] [place] [address] Social History Tobacco Use Types Packs/Day Years [...] How often do you attend chur or alevism services? Never 12/08/2023 Do you belong to any clubs o r organizations such as rastafarian groups, unions, fraternal or athletic groups, or [...] Recorded Patient Health Questionnaire-2 Score 1 08/02/2024 [facility] - [...] Office Visit [facility] [address] [place] [address] Wendy Burden NP [address] [place] [address] documented as of this encounter Procedures Procedure [...] documented as of this encounter Care Teams Feed Mill Operator Relationship Specialty Start Date End Date Charanjit Chen MD [address] [place] [address] PCP - General Family Medicine 02/11/24 Btety Singh NP [address] [place] [address] Nurse Practitioner Family Medicine 02/11/24 11/20/24 Henok Hendrix MA Family Medicine 05/24/24 documented as of this encounter
--- OUTSIDE RECORDS SUMMARY | 2024-12-22 10:41 | XMS_ITS | Encounter Summary ---
Author Organization [facility] Address [id number] [address] [place] [address] Care Team Providers Care Medical Transcriber Name Role Phone Singh, Betty Jonathan SIDING APPLICATOR-CHAR FILTER OPERATOR Primary Care Pr ovider Encounter Details Date Type Department Care Team (Late st Contact Info) Description 10/05/2024 Orders Only [facility] [address] [place] [phone] Transcribe, Orders Support User Pain (Primary Dx) Social History Tobacco Use Types Packs/Day Years Used Date Smoking Tobacco: Former Cigarettes Smokeless Tobacco: Never Alcohol Use Standard Drinks/Week Comments Not Currently 0 (1 standard drink = 0.6 oz pur e alcohol) [facility] Utilities Answer Date Recorded In the past 12 months has centrose, oil, or water [employer] threatened to shut off services in your [...] pain documented in this encounter Care Teams Medical Transcriber Relationship Specialty Start Date End Date Betty Singh, SIDING APPLICATOR-CHAR FILTER OPERATOR [address] [place] [address] PCP - General Nurse Practitioner 06/13/24 documented as of this encounter
--- OUTSIDE RECORDS SUMMARY | 2024-12-22 10:41 | XMS_ITS | Encounter Summary ---
Author Organization [facility] Address [id number] [address] [place] [address] Care Team Providers Care Slat Basket Maker Name Role Phone Betty Singh CONVEYANCER-JIG HAND Primary Care Pr ovider Encounter Details Date Type Department Care Team (Late st Contact Info) Description 06/14/2024 Orders Only [facility] [address] [place] [phone] Transcribe, Orders Support User Pain (Primary Dx) Social History Tobacco Use Types Packs/Day Years Used Date Smoking Tobacco: Never Assessed [facility] Utilities Answer Date Recorded In the [...] documented as of this encounter Care Teams Slat Basket Maker Relationship Specialty Start Date End Date Betty Singh, CONVEYANCER-JIG HAND [address] [place] [address] PCP - General Nurse Practitioner 06/13/24 documented as of this encounter
--- OUTSIDE RECORDS SUMMARY | 2024-12-22 10:41 | XMS_ITS | Encounter Summary ---
Author Organization [facility] Address [address] [place] [address] Care Team Providers Care Heel Scorer Name Role Phone Charanjit Chen MD Primary Care Provider [phone] Henok Hendrix MA Unavailable Unavailable Encounter Details Date Type Department Care Team (Late st Contact Info) Description 12/19/2024 Refill [facility] [address] [place] [place] [address] Wendy Burden, CLOTILDE [address] [place] [address] Alteration of awareness Social History Tobacco Use Types Packs/Day Years [...] How often do you attend chur or mandaen services? Never 12/08/2023 Do you belong to any clubs o r organizations such as sabianism groups, unions, fraternal or athletic groups, or [...] Recorded Patient Health Questionnaire-2 Score 1 08/02/2024 [facility]at ionks Health - Occupational Stress Questionnaire Answer Date [...] Visit [facility] [address] [place] [address] Wendy Burden NP [address] [place] [address] documented as of this encounter Visit Diagnoses Diagnosis Alteration of awareness documented in this encounter Additional Health Concerns Assessment Noted Time PHQ-9 Depression Total Score: 10 025 11:00 AM EST A fall risk assessment has been complete d for the patient 12/08/2023 9:26 AM EDT documented as of this encounter Care Teams Heel Scorer Relationship Specialty Start Date End Date Charanjit Chen MD [address] [place] [address] PCP - General Family Medicine 02/11/24 Henok Hendrix MA Family Medicine 05/24/24 documented as of this encounter
--- OUTSIDE RECORDS SUMMARY | 2024-12-22 10:41 | XMS_ITS | Encounter Summary ---
Author Organization [facility] Address [address] [place] [address] Care Team Providers Care Therapeutic Sales Specialist Name Role Phone Flower Stokes LPN Unavailable Unavailable Charanjit Chen MD Primary Care Provider [phone] Betty Singh NP Unavailable [phone] Anne Hartley LPN Unavailable Unavailable Henok Hendrix MA Unavailable Unavailable Encounter Details Date Type Department Care Team (Late st Contact Info) Description 02/12/2024 Clinisync Result Encounter [facility] External Department Unsolicited Shaikh Horan MD [address] [place] [address] Social History Tobacco Use Types Packs/Day Years [...] often do you attend chur ch or advent services? Never 12/08/2023 Do you belong to any clubs o r organizations such as taoist groups, unions, fraternal or athletic groups, or [...] Recorded Patient Health Questionnaire-2 Score 0 01/04/2024 [facility] of Occupat ional Health - Occupational [...] place to sleep or slept in a long-term (including now)? No 12/08/2023 Comments Unknown Sex [...] Visit [facility] [address] [place] [address] Wendy Burden NP [address] [place] [address] documented as of this encounter Procedures Procedure Name Priority Date/Time Associated Diagnosis Comments CA ECHO DOPPLER COMPLETE 02/12/2024 5:23 PM EDT documented in this encounter Results * CA ECHO DOPPLER COMPLETE (02/12/2024 5:23 PM EDT) Anatomical Region Laterality Modality Other 02/12/2024 5:23 PM EDT Narrative 02/12/2024 5:24 [place] [address] Cardiology Report Signed Patient: BHUPENDRA MIRANDA MR#: [id number] : 1950 Acct:[id number] Age/Sex: 73 / F ADM Date: 02/12/24 Loc: CARD Attending Dr: Shaikh Aung Davidson Ordering Physician: Shaikh Lety Horan Date of Service: 02/12/24 Procedure(s): CA echo doppler complete Accession Number(s): [id number] cc: Shaikh Lety Horan Patient Name: BHUPENDRA MIRANDA MR#: [id number] : 1950 Exam Date: 02/12/2024 Ordering Doctor: [...] SOARES Signed By: 02/12/241723 DD/ 22 TD/TT: General Labor: Procedure Note Radiology, Radiologist, - 02/12/2024 [place] [address] Cardiology Report Signed Patient: BHUPENDRA MIRANDA MMR#: [id number] : 1950cct:[id number] Age/Sex: 73 / FADM Date: 02/12/24 Loc: CARD Attending Dr: Shaikh Aung Davidson Ordering Physician: Shaikh Lety Horan Date of Service: 02/12/24 Procedure(s): CA echo doppler complete Accession Number(s): [id number] cc: Shaikh Lety Horan Patient Name: BHUPENDRA MIRANDA MR#: [id number] : 1950 Exam Date: 02/12/2024 Ordering Doctor: [...] ANITRA SOARES Signed By:02/12/241723 DD/ 22 TD/TT: General Labor: us Shaikh Aung [facility] Final Result documented in this encounter Visit Diagnoses Not on filedocumented in this encounter Additional Health Concerns Assessment Noted Time PHQ-9 Depression Total Score: 5 07/09/20 23 2:09 PM EST A fall risk assessment has been complete d for the patient 12/08/2023 9:26 AM EDT documented as of this encounter Care Teams Therapeutic Sales Specialist Relationship Specialty Start Date End Date Charanjit Chen MD [address] [place] [address] PCP - General Family Medicine 02/11/24 Flower Stokes LPN Licensed Practical Nurse Family Medicine 11/26/23 Betty Singh NP [address] [place] [address] Nurse Practitioner Family Medicine 02/11/24 11/20/24 Anne Hartley LPN Licensed Practical Nurse Family Medicine 03/25/2405/24 Henok Hendrix MA Family Medicine 05/24/24 documented as of this encounter
--- OUTSIDE RECORDS SUMMARY | 2024-12-22 10:41 | XMS_ITS | Encounter Summary ---
Author Organization [facility] Address [address] [place] [address] Care Team Providers Care Detacher Name Role Phone Charanjit Chen MD Primary Care Provider [phone] Henok Hendrix MA Unavailable Unavailable Encounter Details Date Type Department Care Team (Late st Contact Info) Description 12/06/2024 Orders Only [facility] [address] [place] [address] Adam Mckeon MD [address] [place] [address] Social History Tobacco Use Types Packs/Day Years [...] How often do you attend chur or sikh services? Never 12/08/2023 Do you belong to [...] [facility] of Occupat ionct Health - Occupational Stress Questionnaire Answer Date [...] Office Visit [facility] [address] [place] [address] Wendy Burden NP [address] [place] [address] documented as of this encounter Procedures Procedure Name Priority Date/Time Associated Diagnosis Comments XR CHEST 1 VIEW Routine 12/06/2024 9:54 AM EDT documented in this encounter Results * XR chest 1 view (12/06/2024 9:54 AM EDT) Anatomical Region Laterality Modality Chest Radiographic Meagan ging Adam Mckeon MD IMG XR PROCEDURES Final Resul t documented in this encounter Visit Diagnoses Not on filedocumented in this encounter Additional Health Concerns Assessment Noted Time PHQ-9 Depression Total Score: 10 08/02/ 025 11:00 AM EST A fall risk assessment has been complete d for the patient 12/08/2023 9:26 AM EDT documented as of this encounter Care Teams Detacher Relationship Specialty Start Date End Date Charanjit Chen MD [address] [place] [address] PCP - General Family Medicine 02/11/24 Henok Hendrix MA Family Medicine 05/24/24 documented as of this encounter
--- OUTSIDE RECORDS SUMMARY | 2024-12-22 10:41 | XMS_ITS | Encounter Summary ---
Author Organization [facility] Address [address] [place] [address] Care Team Providers Care Ankle Patch Molder Name Role Phone Flower Stokes LPN Unavailable Unavailable Charanjit Chen MD Primary Care Provider [phone] Betty Singh NP Unavailable Anne Hartley LPN Unavailable Unavailable Henok Hendrix MA Unavailable Unavailable Encounter Details Date Type Department Care Team (Late st Contact Info) Description 02/22/2024 Clinisync Result Encounter [facility] External Department Unsolicited Shaikh Horan MD [address] [place] [address] Social History Tobacco Use Types Packs/Day Years [...] often do you attend chur ch or restorationism services? Never 12/08/2023 Do you belong to any clubs o r organizations such as scientology groups, unions, fraternal or athletic groups, or [...] Recorded Patient Health Questionnaire-2 Score 0 02/22/2024 [facility] of Occupat ional Health - [...] Visit [facility] [address] [place] [address] Wendy Burden NP [address] [place] [address] documented as of this encounter Procedures Procedure Name Priority Date/Time Associated Diagnosis Comments CA HOLTER MONITOR 2-7 DAYS 02/22/2024 1:27 PM EDT documented in this encounter Results * CA HOLTER MONITOR 2-7 DAYS (02/22/2024 1:27 PM EDT) Anatomical Region Laterality Modality Other 02/22/2024 1:27 PM EDT Narrative 02/23/2024 6:56 [place] [address] Cardiology Report Signed Patient: BHUPENRDA MIRANDA MR#: [id number] : 1950 Acct:[id number] Age/Sex: 73 / F ADM Date: 02/12/24 Loc: CARD Attending Dr: Shaikh Aung Davidson Ordering Physician: Shaikh Lety Horan Date of Service: 02/12/24 Procedure(s): CA holter montior 2-7 days Accession Number(s): [id number] cc: Shaikh Lety Horan [facility] Test Date: 2024-02-22 Pat Name: BHUPENDRA MIRANDA Department: Room: - Gender: Female New Media Strategist: : 1950 Requested By: SHAIKH AUNG Order Number: [id number] Reading MD: KEEGAN COMER Interpretive Statements Predominant [...] 02/23/24 0656 02/23/24 0656 DD/ 1327 TD/TT: Algorithm Developer: Procedure Note Radiology, Radiologist, MD - 02/23/2024 [place] [address] Cardiology Report Signed Patient: BHUPENDRA MIRANDA MMR#: [id number] : 1950cct:[id number] Age/Sex: 73 / FADM Date: 02/12/24 Loc: CARD Attending Dr: Shaikh Aung Davidson Ordering Physician: Shaikh Lety Horan Date of Service: 02/12/24 Procedure(s): CA holter montior 2-7 days Accession Number(s): [id number] cc: Shaikh Lety Horan [facility] Test Date: 2024-02-22 Pat Name: BHUPENDRA MIRANDA Department: Room: - Gender: Female New Media Strategist: : 1950 Requested By: SHAIKH AUNG Order Number: [id number] Reading MD: KEEGAN COMER Interpretive Statements Predominant [...] By:02/23/24 0656 02/23/24 0656 DD/ 1327 TD/TT: Algorithm Developer: us Shaikh Aung [facility] Final Result documented in this encounter Visit Diagnoses Not on filedocumented in this encounter Additional Health Concerns Assessment Noted Time PHQ-9 Depression Total Score: 5 07/09/20 23 2:09 PM EST A fall risk assessment has been complete d for the patient 12/08/2023 9:26 AM EDT documented as of this encounter Care Teams Ankle Patch Molder Relationship Specialty Start Date End Date Charanjit Chen MD [address] [place] [address] PCP - General Family Medicine 02/11/24 Flower Stokes LPN Licensed Practical Nurse Family Medicine 11/26/23 Betty Singh NP [address] [place] [address] Nurse Practitioner Family Medicine 02/11/24 11/20/24 Anne Hartley LPN Licensed Practical Nurse Family Medicine 03/25/2405/24 Henok Hendrix MA Family Medicine 05/24/24 documented as of this encounter
--- OUTSIDE RECORDS SUMMARY | 2024-12-22 10:41 | XMS_ITS | Encounter Summary ---
Author Organization [facility] Address [address] [place] [address] Care Team Providers Care Screen Vent Binder Name Role Phone Shaikh NAHEED Horan Primary Care Provider [phone] Flower Stokes LPN Unavailable Unavailable Charanjit Chen MD Primary Care Provider [phone] Btety Singh INSTRUCTIONAL MATERIALS DIRECTOR Unavailable [phone] Anne Hartley CREDIT PRODUCTS OFFICER Unavailable Unavailable Henok Hendrix MA Unavailable Unavailable Encounter Details Date Type Department Care Team (Late st Contact Info) Description 01/25/2024 Clinisync Result Encounter [facility] External Department Unsolicited Shaikh Horan MD [address] [place] [address] Social History Tobacco Use Types Packs/Day Years [...] How often do you attend chur or denominational services? Never 12/08/2023 Do you belong to [...] Recorded Patient Health Questionnaire-2 Score 0 01/04/2024 [facility] of Occupat ional Health - Occupational Stress [...] place to sleep or slept in a residential (including now)? No 12/08/2023 Comments Unknown Sex [...] Visit [facility] [address] [place] [address] Wendy Burden NP [address] [place] [address] documented as of this encounter Procedures Procedure Name Priority Date/Time Associated Diagnosis Comments PET SKULL BASE TO MID THIGH 01/25/2024 11:12 PM EDT documented in this encounter Results * PET/CT skull base to mid thigh (01/25/2024 11:12 PM EDT) Anatomical Region Laterality Modality Body Computed Tomogra phy 01/25/2024 11:1 2 PM EDT Narrative 01/25/2024 11:14 PM EDT The [address] [address] PET Report Signed Patient: BHUPENDRA MIRANDA MR#: [id number] : 1950 Acct:[id number] Age/Sex: 73 / F ADM Date: 01/25/24 Loc: PETCT Attending Dr: Shaikh Aung Davidson Ordering Physician: Shaikh Lety Horan Date of Service: 01/25/24 Procedure(s): PET skull to mid thigh Accession Number(s): [id number] cc: Shaikh Lety Horan The [place] [id number] Patient Name: BHUPENDRA MIRANDA MRN: [id number] date: 1950 Sex: F Assigned Patient Location: PETCT Current Patient Location: PETCT Accession/Order Number: [id number] Exam Date: 01/25/2024 15:39 Report Date: 01/25/2024 [...] M.D. Signed By: 01/25/242313 DD/ 11 TD/TT: Blind Hanger: Procedure Note Radiology, Radiologist, MD - 01/25/2024 [place] [address] PET Report Signed Patient: BHUPENDRA MIRANDA MMR#: [id number] : 1950cct:[id number] Age/Sex: 73 / FADM Date: 01/25/24 Loc: PETCT Attending Dr: Shaikh Aung Davidson Ordering Physician: Shaikh Lety Horan Date of Service: 01/25/24 Procedure(s): PET skull to mid thigh Accession Number(s): [id number] cc: Shaikh Lety Horan [address] [address] Patient Name: BHUPENDRA MIRANDA MRN: [facility]:[id number] date: 1950 Sex: F Assigned Patient Location: PETCT Current Patient Location: PETCT Accession/Order Number: [id number] Exam Date: 01/25/2024 15:39 Report Date: 01/25/2024 [...] Orozco M.D. Signed By:01/25/242313 DD/ 11 TD/TT: Blind Hanger: us Shaikh Aung [facility] PROCEDURES Final Result documented in this encounter Visit Diagnoses Not on filedocumented in this encounter Additional Health Concerns Assessment Noted Time PHQ-9 Depression Total Score: 5 07/09/20 23 2:09 PM EST A fall risk assessment has been complete d for the patient 12/08/2023 9:26 AM EDT documented as of this encounter Care Teams Screen Vent Binder Relationship Specialty Start Date End Date Shaikh Horan MD [address] [place] [address] PCP - General Internal Medicine 10/12/23 02/10/24 Charanjit Chen MD [address] [place] [address] PCP - General Family Medicine 02/11/24 Flower Stokes LPN Licensed Practical Nurse Family Medicine 11/26/23 Betty Singh NP [address] [place] [address] Nurse Practitioner Family Medicine 02/11/24 11/20/24 Anne Hartley LPN Licensed Practical Nurse Family Medicine 03/25/2405/24 Henok Hendrix MA Family Medicine 05/24/24 documented as of this encounter
--- OUTSIDE RECORDS SUMMARY | 2024-12-22 10:42 | XMS_ITS | Encounter Summary ---
Author Organization [facility] Address [id number] [address] [place] [address] Care Team Providers Care Manager Contact Name Role Phone Singh, Betty Jonathan TONE REGULATOR-SORT LINE Primary Care Pr ovider Encounter Details Date Type Department Care Team (Late st Contact Info) Description 10/07/2024 Orders Only [facility] [address] [place] [address] Transcribe, Orders Support User Pain (Primary Dx) Social History Tobacco Use Types Packs/Day Years Used Date Smoking Tobacco: Former Cigarettes Smokeless Tobacco: Never Alcohol Use Standard Drinks/Week Comments Not Currently 0 (1 standard drink = 0.6 oz pur e alcohol) [facility] Utilities Answer Date Recorded In the past 12 months has [employer], oil, or water [employer] threatened to shut off services in your [...] documented in this encounter Care Teams Manager Contact Relationship Specialty Start Date End Date Betty Singh, TONE REGULATOR-SORT LINE [address] [place] [address] PCP - General Nurse Practitioner 06/13/24 documented as of this encounter
[2024-12-22 11:06] LABS: Bilirubin Urine NEGATIVE (NEGATIVE); Blood Urine NEGATIVE (NEGATIVE); Clarity Urine CLEAR (CLEAR); Color Urine LT. YELLOW (YELLOW); Glucose Urine UA NEGATIVE (NEGATIVE); Ketones Urine NEGATIVE (NEGATIVE); Leukocyte Esterase Urine SMALL (NEGATIVE); Nitrite Urine NEGATIVE (NEGATIVE); Protein Urine NEGATIVE (NEG/TRACE); Specific Gravity Urine 1.015 (1.005-1.025); Urobilinogen Urine 0.2 EU/dL (0.2-1.0)
[2024-12-22 11:12] LABS: Urine Microscopic Indicated YES
[2024-12-22 11:23] LABS: Bacteria Urine SMALL #/HPF (NONE SEEN); Cast Seen? NONE SEEN #/LPF (NONE SEEN); Crystals Seen? None Seen #/HPF (None Seen); Mucus Urine SMALL (NONE SEEN); RBC Urine NONE SEEN #/HPF (0-2); Squamous Epithelial Cell Urine MODERATE #/LPF (NONE/RARE)
[2024-12-22 11:47] LABS: Alanine Aminotransferase 17 U/L (14-59); Albumin Globulin Ratio 0.8; Albumin Level 3.3 g/dL (3.4-5.0); Alkaline Phosphatase 119 U/L (46-116); Amylase 64 U/L (25-115); Aspartate Amino Transferase 10 U/L (15-37); BUN Creatinine Ratio 21.1; Bilirubin Total 0.4 mg/dL (0.2-1.0); Calcium 9.4 mg/dL (8.5-10.1); Carbon Dioxide 31.1 mmol/L (21.0-32.0); Chloride 103 mmol/L (98-107); Estimated GFR (African America >60 (>=60 mL/min/1.73m^2); Estimated GFR (Non-African Ame >60 (>=60 mL/min/1.73m^2); Glucose 106 mg/dL (74-106); Potassium 4.1 mmol/L (3.5-5.1); Sodium 142 mmol/L (136-145); Total Protein 7.3 g/dL (6.4-8.2)
== END 2024-12-22 10:37 | disposition home or self-care (01) ==
LOC: LAB 10:38
PROVIDERS: PCP Nurse Practitioner; Visit Provider Nurse Practitioner
DX: G89.29 Other chronic pain (principal); R10.9 Unspecified abdominal pain; R30.0 Dysuria; R10.13 Epigastric pain
CPT/HCPCS: 36415; 80053; 81001; 82150; 83690; 87086

== ENCOUNTER 2024-12-27 08:14 | Outpatient (RCR) | payer MEDICARE, SELFPAY | END 2024-12-28 09:15 | disposition home or self-care (01) | LOC: HEMC 08:14 | PROVIDERS: PCP Nurse Practitioner; Visit Provider Internal Medicine Hematology & Oncology | DX: C34.12 Malignant neoplasm of upper lobe, left bronchus or lung (principal); D72.829 Elevated white blood cell count, unspecified; Z90.710 Acquired absence of both cervix and uterus; Z90.49 Acquired absence of other specified parts of digestive tract; Z87.891 Personal history of nicotine dependence; J44.9 Chronic obstructive pulmonary disease, unspecified; Z80.1 Family history of malignant neoplasm of trachea, bronchus and lung; R56.9 Unspecified convulsions | CPT/HCPCS: G0463 ==

== ENCOUNTER 2024-12-29 09:04 | Outpatient (OUT) | payer MEDICARE, SELFPAY ==
--- OUTSIDE RECORDS SUMMARY | 2014-02-15 20:00 | XMS_ITS | Continuity of Care Document ---
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 Name Role Phone Unavailable Unavailable Unavailable Procedures Procedure Date INPT CONSULT L4 COMPHNSV H&E MOD COMPLX MED Jun INIT HOSP L2 COMPHNSV H&E MOD COMPLX MED Jun Advance Directives Directive Yes / No Effective Date File Name No Information Encounters Encounter Description Practice Location Reason(s) For Visit Diagnoses Date Provider Providers Copied on Encounter INPT CONSULT L4 COMPHNSV H&E MOD COMPLX MED DEC [facility], [address] [place], [place] [address]Elyssa MD, [id number], tel:[phone] [facility] Inpatient No Information 7-201 4 No Information Referring Provider: Min Quinones, [address] [place], [place] [address], [id number] . tel:[phone] Family History Family Member Type Diagnosis Age At Onset No Information Payers Payer name Insurance type Covered alliance party ID Authoriza tidevorah(s) [facility] [employer] [id number] Social History Type Description Quantity Date Captured Comments Sex Female Smoking Status No Information Chief Complaint And Reason For Visit No Information Reason For Referral Reason For Referral No Information History Of Present Illness Encounter Date Complaint History Of Prese nt Illness No Information Functional Status Date Functional Assessmen t No Information Instructions Date Instruction Additional Infor mation No Information Assessments Type Assessment Date No Information Patient Care Teams Name Effective Dates (start - stop) Status Members No Information
--- OUTSIDE RECORDS SUMMARY | 2024-12-21 16:00 | XMS_ITS | Encounter Summary ---
Author Organization [facility] Address [address] [place] [address] Care Team Providers Care Foreclosure Specialist Name Role Phone Charanjit Chen MD Primary Care Provider [phone] Henok Hendrix MA Unavailable [phone] Reason for Referral * Imaging (Urgent) - Authorized Specialty Diagnoses / Procedures Referred By Contac t Referred To Contact Radiology Diagnoses Infrarenal abdominal aortic aneurysm (AAA) without rupture Chronic abdominal pain Procedures CT abdomen pelvis w IV contrast Wendy Burden NP [address] [place] [address] Phone: tel: fax: [facility] [address] [place] [address] Referral ID Status Reason Start Date Expiration Date V isits Requested Visits Authorized [id number] Authorized 12/21/2024 06/19/2025 1 1 Reason for Visit * Reason Comments ER Follow-up Encounter Details Date Type Department Care Team ([facility] Contact Info) Description 12/21/2024 4:00 PM EDT [facility] [address] [place] [address] Wendy Burden NP [address] [place] [phone] Epigastric pain (Primary Dx); Gastroesophageal reflux disease, [...] week 12/08/2023 How often do you attend [facility] or rastafarian services? Never 12/08/2023 Do you belong to any clubs o r organizations such as voodoo groups, unions, fraternal or athletic groups, or [...] Recorded Patient Health Questionnaire-2 Score 1 08/02/2024 [facility] - [...] of the risks of continued smoking: stroke, [place], all forms of cancer, lung disease, and [...] pain when laying sitting eating; everything. * Wendytrupti Burden, CLOTILDE - 12/21/2024 4:00 PM EDT Images from [...] daily atorvastatin (LIPITOR) 80 mg, Oral, Daily Kxwojmq-Bauiotkcuqg-Ikdywmwsjo (Breztri Aerosphere) 160-9-4.8 MCG/ACT aerosol 2 puffs, [...] rupture CT chest done in 11/02 by [place] [...] of the risks of continued smoking: stroke, [place], all forms of cancer, lung disease, and [...] 10:30 AM EDT Office Visit [facility] [address] [place] [address] Wendy Burden NP [address] [place] [phone] Scheduled Orders Name Type Priority Associated Diagnoses [...] documented as of this encounter Care Teams Foreclosure Specialist Relationship Specialty Start Date End Date Charanjit Chen MD [address] [place] [phone] PCP - General Family Medicine 02/11/24 Henok Hendrix MA [address] [place] [address] Family Medicine 05/24/24 documented as of this encounter
--- NOTE | 2024-12-29 | CT_ITS ---
The [address] [address] Patient Name: BHUPENDRA MIRANDA MRN: [id number] date: 1950 Sex: F Assigned Patient Location: CT Current Patient Location: CT Accession/Order Number: [id number] Exam Date: 12/29/2024 10:36 Report Date: 12/29/2024 11:00 At the request of: AZIZA MACDONALD NP Procedure: CT abdomen pelvis w con CT ABDOMEN AND PELVIS WITH CONTRAST CLINICAL DATA: Chronic abdominal pain. COMPARISON: 11/11/2022 and PET scan 01/23/2024 Spiral images were obtained through the abdomen and pelvis following oral and 100 mL of Omnipaque 300. This CT exam was performed using one or more following dose reduction techniques: Automated exposure control, adjustment of the mA and/or kV according to patient size, or use of iterative reconstruction technique. Limited cuts through the lung bases show atelectasis and/or scarring. The gallbladder is surgically absent. No intrahepatic masses are identified. The spleen, pancreas and adrenal glands show no acute findings. The renal nephrograms are symmetric. No hydronephrosis is present. Renal cysts are seen. There is similar mild aneurysmal dilatation of the abdominal aorta with diameter up to 3.4 cm. The is atherosclerotic plaque and mural thrombus similar to the comparison. There is no lymphadenopathy or ascites. Small bowel loops are not distended. There is air and stool within the colon. Degenerative changes are visualized at the spine. Images through the pelvis show normal caliber small bowel loops. There is no appendiceal inflammation. The distal colon is decompressed. No diverticular disease is noted. The uterus is surgically absent. No ascites is seen. CT/CT abdomen pelvis w con IMPRESSION: MINOR BIBASILAR ATELECTASIS OR SCARRING. SMALL RENAL CYSTS. NO BOWEL OR URINARY TRACT OBSTRUCTION. SIMILAR ABDOMINAL AORTIC ANEURYSM. NO ACUTE FINDINGS. Impression dictated by: Darshana Brar M.D. 12/29/2024 11:00 AM Dictation Location: [place] [address] Electronically authenticated by: [id number] Y Date: 12/29/2024 11:00
--- OUTSIDE RECORDS SUMMARY | 2024-12-29 09:06 | XMS_ITS | Encounter Summary ---
Author Organization [facility] Address [address] [place] [address] Care Team Providers Care Electric Cutter Operator Name Role Phone Charanjit Chen MD Primary Care Provider Betty Singh NP Unavailable Henok Hendrix MA Unavailable [phone] Encounter Details Date Type Department Care Team (Late st Contact Info) Description 06/15/2024 Orders Only [facility] [address] [place] [address] Shaikh Horan MD [address] [place] [address] Social History Tobacco Use Types Packs/Day Years [...] How often do you attend chur or scientologist services? Never 12/08/2023 Do you belong to any clubs o r organizations such as zoroastrianism groups, unions, fraternal or athletic groups, or [...] Recorded Patient Health Questionnaire-2 Score 0 03/24/2024 [facility] of Occupat ional Health - Occupational [...] place to sleep or slept in a alf (including now)? No 12/08/2023 Comments No Sex [...] Office Visit [facility] [address] [place] [address] Wendy Burden NP [address] [place] [address] documented as of this encounter Procedures Procedure [...] documented as of this encounter Care Teams Electric Cutter Operator Relationship Specialty Start Date End Date Charanjit Chen MD [address] [place] [address] PCP - General Family Medicine 02/11/24 Betty Singh NP [address] [place] [address] Nurse Practitioner Family Medicine 02/11/24 11/20/24 Henok Hendrix, CYNTHIA [address] [place] [address] Family Medicine 05/24/24 documented as of this encounter
--- OUTSIDE RECORDS SUMMARY | 2024-12-29 09:06 | XMS_ITS | Encounter Summary ---
Author Organization [facility] Address [address] [place] [address] Care Team Providers Care Motorboat Mechanic Inboard/Outboard Name Role Phone Shaikh NAHEED Horan Primary Care Provider [phone] Flower Stokes LPN Unavailable Unavailable Charanjit Chen MD Primary Care Provider [phone] Betty Singh NP Unavailable Anne Hartley WELLNESS SPECIALIST Unavailable Henok Hendrix MA Unavailable [phone] Encounter Details Date Type Department Care Team (Late st Contact Info) Description 01/25/2024 Clinisync Result Encounter [facility]S External Department Unsolicited Shaikh Horan MD [address] [place] [address] Social History Tobacco Use Types Packs/Day Years [...] How often do you attend chur or restorationist services? Never 12/08/2023 Do you belong to any clubs o r organizations such as hoahaoism groups, unions, fraternal or athletic groups, or [...] Recorded Patient Health Questionnaire-2 Score 0 01/04/2024 [facility] [place] of Occupat ional Health - Occupational Stress [...] Visit [facility] [address] [place] [address] Wendy Burden NP [address] [place] [address] documented as of this encounter Procedures Procedure Name Priority Date/Time Associated Diagnosis Comments PET SKULL BASE TO MID THIGH 01/25/2024 11:12 PM EDT documented in this encounter Results * PET/CT skull base to mid thigh (01/25/2024 11:12 PM EDT) Anatomical Region Laterality Modality Body Computed Tomogra phy 01/25/2024 11:1 2 PM EDT Narrative 01/25/2024 11:14 [place] [address] PET Report Signed Patient: BHUPENDRA MIRANDA MR#: [id number] : 1950 Acct:[id number] Age/Sex: 73 / F ADM Date: 01/25/24 Loc: PETCT Attending Dr: Shaikh Aung Davidson Ordering Physician: Shaikh Lety Horan Date of Service: 01/25/24 Procedure(s): PET skull to mid thigh Accession Number(s): [id number] cc: Shaikh Lety Horan [address] [place] [id number] Patient Name: BHUPENDRA MIRANDA MRN: [id number] date: 1950 Sex: F Assigned Patient Location: PETCT Current Patient Location: PETCT Accession/Order Number: [id number] Exam Date: 01/25/2024 15:39 Report Date: 01/25/2024 [...] M.D. Signed By: 01/25/242313 DD/ 11 TD/TT: Support Analyst: Procedure Note Radiology, Radiologist, MD - 01/25/2024 [place] [address] PET Report Signed Patient: BHUPENDRA MIRANDA MMR#: [id number] : 1950cct:[id number] Age/Sex: 73 / FADM Date: 01/25/24 Loc: PETCT Attending Dr: Shaikh Aung Davidson Ordering Physician: Shaikh Lety Horan Date of Service: 01/25/24 Procedure(s): PET skull to mid thigh Accession Number(s): [id number] cc: Shaikh Lety Horan [address] [place] [id number] Patient Name: BHUPENDRA MIRANDA MRN: [id number] date: 1950 Sex: F Assigned Patient Location: PETCT Current Patient Location: PETCT Accession/Order Number: [id number] Exam Date: 01/25/2024 15:39 Report Date: 01/25/2024 [...] Orozco M.D. Signed By:01/25/242313 DD/ 11 TD/TT: Support Analyst: us Shaikh Aung FARFAN IMG CT PROCEDURES Final Result documented in this encounter Visit Diagnoses Not on filedocumented in this encounter Additional Health Concerns Assessment Noted Time PHQ-9 Depression Total Score: 5 07/09/20 23 2:09 PM EST A fall risk assessment has been complete d for the patient 12/08/2023 9:26 AM EDT documented as of this encounter Care Teams Motorboat Mechanic Inboard/Outboard Relationship Specialty Start Date End Date Shaikh Horan MD [address] [place] [address] PCP - General Internal Medicine 10/12/23 02/10/24 Charanjit Chen MD [address] [place] [address] PCP - General Family Medicine 02/11/24 Flower Stokes LPN Licensed Practical Nurse Family Medicine 11/26/23 Betty Singh NP [address] [place] [address] Nurse Practitioner Family Medicine 02/11/24 11/20/24 Anne Hartlye LPN [address] [place] [address] Licensed Practical Nurse Family Medicine 03/25/2405/13 Henok Hendrix MA [address] [place] [address] Family Medicine 05/24/24 documented as of this encounter
--- OUTSIDE RECORDS SUMMARY | 2024-12-29 09:06 | XMS_ITS | Encounter Summary ---
Author Organization [facility] Address [address] [place] [address] Care Team Providers Care Cafe Worker Name Role Phone Flower Stokes LPN Unavailable Unavailable Charanjit Chen MD Primary Care Provider [phone] Betty Singh NP Unavailable [phone] Anne Hartley LPN Unavailable Henok Hendrix MA Unavailable [phone] Encounter Details Date Type Department Care Team (Late st Contact Info) Description 02/12/2024 Clinisync Result Encounter NOMS External Department Unsolicited Shaikh Horan MD [address] [place] [address] Social History Tobacco Use Types Packs/Day Years [...] often do you attend chur ch or anabaptism services? Never 12/08/2023 Do you belong to [...] Recorded Patient Health Questionnaire-2 Score 0 01/04/2024 [facility] of Occupat ionin Health - Occupational Stress Questionnaire Answer Date [...] place to sleep or slept in a fpc (including now)? No 12/08/2023 Comments Unknown Sex [...] Visit [facility] [address] [place] [address] Wendy Burden NP [address] [place] [address] documented as of this encounter Procedures Procedure Name Priority Date/Time Associated Diagnosis Comments CA ECHO DOPPLER COMPLETE 02/12/2024 5:23 PM EDT documented in this encounter Results * CA ECHO DOPPLER COMPLETE (02/12/2024 5:23 PM EDT) Anatomical Region Laterality Modality Other 02/12/2024 5:23 PM EDT Narrative 02/12/2024 5:24 PM EDT [address] [address] Cardiology Report Signed Patient: BHUPENDRA MIRANDA MR#: [id number] : 1950 Acct:[id number] Age/Sex: 73 / F ADM Date: 02/12/24 Loc: CARD Attending Dr: Shaikh Aung Davidson Ordering Physician: Shaikh Lety Horan Date of Service: 02/12/24 Procedure(s): CA echo doppler complete Accession Number(s): [id number] cc: Shaikh Lety Horan Patient Name: BHUPENDRA MIRANDA MR#: [id number] : 1950 Exam Date: 02/12/2024 Ordering Doctor: [...] SOARES Signed By: 02/12/241723 DD/ 22 TD/TT: Fitness Assistant: Procedure Note Radiology, Radiologist, - 02/12/2024 [place] [address] Cardiology Report Signed Patient: BHUPENDRA MIRANDA MMR#: [id number] : 1950cct:[id number] Age/Sex: 73 / FADM Date: 02/12/24 Loc: CARD Attending Dr: Shaikh Aung Davidson Ordering Physician: Shaikh Lety Horan Date of Service: 02/12/24 Procedure(s): CA echo doppler complete Accession Number(s): [id number] cc: Shaikh Lety Horan Patient Name: BHUPENDRA MIRANDA MR#: [id number] : 1950 Exam Date: 02/12/2024 Ordering Doctor: [...] ANITRA SOARES Signed By:02/12/241723 DD/ 22 TD/TT: Fitness Assistant: us Shaikh Aung FARFAN [facility] IMAGING Final Result documented in this encounter Visit Diagnoses Not on filedocumented in this encounter Additional Health Concerns Assessment Noted Time PHQ-9 Depression Total Score: 5 07/09/20 23 2:09 PM EST A fall risk assessment has been complete d for the patient 12/08/2023 9:26 AM EDT documented as of this encounter Care Teams Cafe Worker Relationship Specialty Start Date End Date Charanjit Chen MD [address] [place] [address] PCP - General Family Medicine 02/11/24 Flower Stokes LPN Licensed Practical Nurse Family Medicine 11/26/23 Betty Singh NP [address] [place] [address] Nurse Practitioner Family Medicine 02/11/24 11/20/24 Anne Hartley LPN [address] [place] [address] Licensed Practical Nurse Family Medicine 03/25/2405/13 Henok Hendrix, CYNTHIA [address] [place] [address] Family Medicine 05/24/24 documented as of this encounter
--- OUTSIDE RECORDS SUMMARY | 2024-12-29 09:06 | XMS_ITS | Encounter Summary ---
Author Organization [facility] Address [id number] [address] [place] [address] Care Team Providers Care Avionics Systems Technician Name Role Phone Betty Singh APPLICATION DEVELOPMENT INTERN-EPIDEMIOLOGY INTERNSHIP Primary Care Pr ovider Encounter Details Date Type Department Care Team (Late st Contact Info) Description 06/13/2024 Orders Only [facility] [employer] [address] [place] [address] Transcribe, Orders Support User Pain (Primary Dx) Social History Tobacco Use Types Packs/Day Years Used Date Smoking Tobacco: Never Assessed [facility] Utilities Answer Date Recorded In the [...] documented as of this encounter Care Teams Avionics Systems Technician Relationship Specialty Start Date End Date Betty Singh, APPLICATION DEVELOPMENT INTERN-EPIDEMIOLOGY INTERNSHIP [address] [place] [address] PCP - General Nurse Practitioner 06/13/24 documented as of this encounter
--- OUTSIDE RECORDS SUMMARY | 2024-12-29 09:06 | XMS_ITS | Clinical Summary ---
Author Organization [facility] Address [address] [place] [address] Care Team Providers Care Lamp Shades Supervisor Name Role Phone Charanjit Chen MD Primary Care Provider Henok Hendrix MA Unavailable [phone] Allergies No known active allergies Medications albuterol HFA 90 mcg/act inhalerIndications :Moderate COPD (chronic obstructive pulmonary disease) ([facility]) Inhale 2 puffs every 4 (four) hours if needed for wheezing or shortness of breath 6.7 g 11/26/19 24 Active Budeson-Glycopyrro l-Formoterol (Breztri Aerosphere) 160-9-4.8 MCG/ACT aerosolIndications :Moderate COPD (chronic obstructive pulmonary disease) ([facility]) Inhale 2 puffs in the [...] to 7 days 21 tablet 12/22/19 25 Active lacosamide (Vimpat) 100 MG tabletIndications: Alteration of awareness Take 1 tablet (100 mg) by mouth in the morning and 1 tablet (100 mg) before bedtime. 60 tablet 1 09/27/19 025 Discontin ued(Reord er) Active Problems Problem [...] (10/28/2024 11:55 AM EDT): recent hospitalization at [facility] around 10/04/24, was also sent [...] nodules; Had EBUS. Following with Dr. Olamide Lange/oncjaciel closely. Referral [...] upper lobe mass on CTA performed at [facility] on 12/27/23 in ED visit. Smoker - recently quit LDCT 08/04 - No left upper lobe mass. PET scan - lung nodule in left upper lobe is hypermetabolic. Refer to Oncology. Dr Grossman, also made aware. Assessment & Plan (01/06/2024 2:59 PM EDT): 2.2 cm left upper lobe mass on CTA performed at [facility] on 12/27/23 in ED visit. Smoker - [...] upper lobe mass on CTA performed at [facility] on 12/27/23 in ED visit. Smoker - [...] confused after regaining consciousness. Patient went to [facility]. CTA - No PE Will get an [...] of the risks of continued smoking: stroke, AR, all forms of cancer, lung disease, and [...] of the risks of continued smoking: stroke, AR, all forms of cancer, lung disease, and [...] Encounters Date Type Department Care Team Description 12/22/2024 External Result Encounter NOMS External Department Unsolicited Wendy Burden NP 12/22/2024 Clinisync Result Encounter NOMS External Department Unsolicited Wendy Burden NP 12/21/2024 4:00 PM EDT Office Visit [facility] [address] [place] [address] Wendy Burden NP Epigastric pain (Primary Dx); Gastroesophageal reflux disease, unspecified whether esophagitis present; Infrarenal abdominal aortic aneurysm (AAA) without rupture; Chronic abdominal pain; Dysuria; Tobacco dependency 12/21/2024 Bamboo flowsheet [facility] [address] [place] [address] Wendy Burden NP 12/19/2024 Refill [facility] [address] [place] [address] Wendy Burden NP Alteration of awareness 12/14/2024 Clinisync Result Encounter NOMS External Department Unsolicited Provider, Generic External Data 12/07/2024 [facility] Out[facility] [place] [facility] [address] [place] [address] Henok Hendrix MA 12/06/2024 Orders Only [facility] [address] [place] [address] Adam Mckeon MD 12/02/2024 Patient Outreach [place] [address] [place] [address] Henok Hendrix MA 12/01/2024 Orders Only [facility] [address] [place] [address] Wendy Burden NP Cerebrovascular accident (CVA), unspecified mechanism (HCC) (Primary Dx); Syncope and collapse; Peripheral polyneuropathy 11/21/2024 Patient Outreach [place] [address] [place] [address] Henok Hendrix MA 11/15/2024 Refill [facility] [address] [place] [address] Wendy Burden, CLOTILDE Anxiety 11/15/2024 Orders Only [facility] [address] [place] [address] Wendy Burden NP Mixed hyperlipidemia (Primary Dx) 11/14/2024 Patient Outreach [place] [address] [place] [address] Henok Hendrix MA 11/09/2024 Patient Outreach [place] [address] [place] [address] Henok Hendrix MA 11/08/2024 Patient Outreach [place] [address] [place] [address] Henok Hendrix PA 11/02/2024 Patient Outreach [place] [address] [place] [address] Henok Hendrix PA 11/02/[address] [facility] [address] [place] [address] Wendy Burden NP Urinary tract infection symptoms (Primary Dx); UTI symptoms 11/01/2024 Patient Outreach [place] [address] [place] [address] Henok Hendrix MA 10/28/2024 Refill [facility] [address] [place] [address] Wendy Burden NP Anxiety (Primary Dx); Psychophysiological insomnia 10/27/2024 10:30 AM EDT Office Visit [facility] [address] [place] [address] Wendy Burden NP Cerebrovascular accident (CVA), unspecified mechanism (HCC) (Primary Dx); Malignant neoplasm of unspecified part of left bronchus or lung (HCC); Adenocarcinoma of left lung (HCC); Mixed hyperlipidemia ; Tobacco dependency; Peripheral polyneuropathy; Primary hypertension ; Screening mammogram for breast cancer 10/27/2024 Patient Outreach [place] [address] [place] [address] Henok Hendrix PA 10/27/2024 Patient Outreach [place] [address] [place] [address] Henok Hendrix PA 10/19/2024 Patient Outreach [place] [address] [place] [address] Charlotte Us LPN 10/11/2024 Patient Outreach [address] [place] [address] Betty Naqvi MA 10/05/2024 Orders Only [facility] [address] [place] [address] Charanjit Chen MD 10/04/2024 Clinisync Result Encounter NOMS External Department Unsolicited Provider, Generic External Data from Last 3 Months Immunizations Immunization Administration [...] How often do you attend chur or samaritan services? Never 12/08/2023 Do you belong to any clubs o r organizations such as mormonism groups, unions, fraternal or athletic groups, or [...] Recorded Patient Health Questionnaire-2 Score 1 08/02/2024 [facility] - Occupational Stress Questionnaire Answer Date Recorded [...] EDT Office Visit [facility] [address] [place] [address] Wendy Burden NP [address] [place] [address] Health Maintenance Due Date Last Done Comments CT Colonography 1950 FIT 1950 FOBT 1950 Sigmoidoscopy 1950 Mammogram 07/03/2023 07/03/2022 Influenza Vaccine (Season Ended) 2025 Medicare Annual Wellness (AWV) 08/02/2025 0 08/02/2024, 07/09/2023, 07/09/2023 FIT-DNA 04/12/2026 04/12/2023 Colonoscopy 06/21/2034 06/21/2024, 06/12, 03/25/2024 Colorectal Cancer Screening 06/21/2034 Pneumococcal Vaccine: 65+ Years Completed 2, 07/03/2022 Procedures Procedure Name Priority Date/Time Associated Diagnosis Comments [facility] LIPASE Routine 12/22/2024 10:55 AM EDT ALL AMYLASE Routine 12/22/2024 10:55 AM EDT [facility] CMP (CMP) (FOR REMOTE [facility] USE) Routine 12/22/2024 10:55 AM EDT [facility] URINE MICROSCOPIC ONLY Routine 12/22/2024 10:41 AM EDT TB[facility] UA (CLEAN/CATCH) MICROSCOPIC IF INDICATE Routine 12/22/2024 10:41 AM EDT URINE CULTURE - [facility] Routine 12/22/2024 10:41 AM EDT CULTURE, URINE, ROUTINE Routine 12/22/2024 10:41 AM EDT [facility] CMP (CMP) (FOR REMOTE [facility] USE) Routine 12/14/2024 11:00 AM EDT ALL CBC WITH AUTO DIFF Routine 12/14/2024 11:00 AM EDT XR CHEST 1 VIEW Routine 12/06/2024 9:54 AM EDT POCT URINALYSIS REFLEX Routine 11/02/2024 12:25 PM EDT POCT URINALYSIS DIPSTICK Routine 11/02/2024 12:22 PM EDT UTI symptoms MRI HEAD/BRAIN WO CONTRAS Routine 10/05/2024 1:54 PM EDT URINE CULTURE - [facility] Routine 10/04/2024 3:40 PM EDT [facility] FERRITIN Routine 10/04/2024 1:42 PM EDT METRO IRON AND TIBC Routine 10/04/2024 1 :42 PM EDT ALL C REACTIVE PROTEIN Routine 10/04/2024 1:42 PM EDT [facility] CMP (CMP) (FOR REMOTE [facility] USE) Routine 10/04/2024 1:42 PM EDT ALL SED RATE Routine 10/04/2024 1:42 PM EDT ALL CBC WITH AUTO DIFF Routine 10/04/2024 1:42 PM EDT from Last 3 Months Results * [facility] LIPASE (12/22/2024 10:55 AM EDT) LIPASE 31.0 16.0 - 77.0 U/L TBH 12/22/2024 10:5 5 AM EDT 12/22/2024 10:58 AM EDT Narrative CLINIS[facility]NC - 12/22/2024 11:47 AM EDT us Wendy Burden NP CLIN[facility] Final Result [facility]INIS[facility]NC [facility] * (ABNORMAL) [facility]CF CMP (CMP) (FOR REMOTE [facility] USE) (12/22/2024 10:55 AM EDT) Only the most recent of3 resultswithin the time period is included. SODIUM 142 136 - 145 mmol/L TBH POTASSIUM 4.1 3.5 - 5.1 mmol/L TBH CHLORIDE 103 98 - 107 mmol/L TBH CARBON DIOXIDE 31.1 21.0 - 32.0 mmol/L TBH ANION GAP 12.0 TBH GLUCOSE 106 74 - 106 mg/dL TB[facility] BLOOD UREA NITROGEN 19.0(H) 7.0 - 18.0 mg/dL TBH CREATININE 0.90 0.55 - 1.02 mg/dL TBH TBH EGFR-AF SAUDI ARABIAN >60 >=60 mL/min/1. 73m 2 TBH TBH EGFR-NON AF SAUDI ARABIAN >60 >=60 mL/min/1. 73m 2 TBH BUN CREATININE RATIO 21.1 TBH CALCIUM 9.4 8.5 - 10.1 mg/dL TBH BILIRUBIN TOTAL 0.4 0.2 - 1.0 mg/dL TBH ASPARTATE AMINO TRANSFERASE 10(L) 15 - 37 U/L TBH ALANINE AMINOTRANSFERASE 17 14 - 59 U/L TBH ALKALINE PHOSPHATASE 119(H) 46 - 116 U/L TBH TOTAL PROTEIN 7.3 6.4 - 8.2 g/dL TBH ALBUMIN LEVEL 3.3(L) 3.4 - 5.0 g/dL TBH GLOBULIN 4.0 g/dL TBH ALBUMIN GLOBULIN RATIO 0.8 [facility] 12/22/2024 10:5 5 AM EDT 12/22/2024 10:58 AM EDT [facility] - 12/22/2024 11:47 AM EDT Wendy Burden NP CLIN[facility] Final Result Performing Organization Address [facility]/ZIP Co de Phone Number [facility] * ALL AMYLASE (12/22/2024 10:55 AM EDT) AMYLASE 64 25 - 115 U/L [facility] 12/22/2024 10:5 5 AM EDT 12/22/2024 10:58 AM EDT Narrative [facility]IN[facility] - 12/22/2024 11:47 AM EDT Wendy Burden METER AND REGULATOR SHOP SUPERVISOR CLINISYNC Final Result Performing Organization Address [facility]/ZIP Co de Phone Number [facility] * URINE CULTURE - [facility] (12/22/2024 10:41 AM EDT) Only the most recent of2 resultswithin the time period is included. URINE CULTURE - [facility] Urine Culture - [facility] 75,000 colonies/ml mixed [facility] URINE CULTURE - FR bacterial skin contaminants [facility] URINE CULTURE - FR 2 Days [facility] URINE CULTURE - [facility] URINE CULTURE - [facility] Testing performed at [facility] URINE CULTURE - [facility] [address] [place] [address] [facility] 12/22/2024 10:4 1 AM EDT 12/22/2024 10:58 AM EDT Narrative [facility]IN[facility]NC - 12/26/2024 12:55 PM EDT Wendy Burden METER AND REGULATOR SHOP SUPERVISOR LAB BLOOD ORDERABLES Final Resu lt CLINIS[facility]NC TB[facility] * (ABNORMAL) [facility] URINE MICROSCOPIC ONLY (12/22/2024 10:41 AM EDT) TBH WBC 5-10(A) NONE SEEN #/HPF TBH TBH RBC NONE SEEN 0 - 2 #/HPF TBH BACTERIA URINE SMALL(A) NONE SEEN #/HPF TB[facility] MUCUS URINE SMALL(A) NONE SEEN TBH SQUAMOUS EPITHELIAL CELL URINE MODERATE(A ) NONE/RARE #/LPF TBH CRYSTALS SEEN? None Seen None Seen #/HPF TBH CAST SEEN? NONE SEEN NONE SEEN #/LPF [facility] 12/22/2024 10:4 1 AM EDT 12/22/2024 10:58 AM EDT Narrative CLINISYNC - 12/22/2024 11:23 AM EDT us Wendy Burden NP CLINISYNC Final Result Performing Organization Address [facility] Co de Phone Number CLINIS[facility]NC [facility] * (ABNORMAL) TBH UA (CLEAN/CATCH) MICROSCOPIC IF INDICATE (12/22/2024 10:41 AM EDT) COLOR URINE LT. YELLOW YELLOW TBH CLARITY URINE CLEAR CLEAR TBH SPECIFIC GRAVITY URINE 1.015 1.005 - 1.025 TBH PH URINE 6.0 5.0 - 9.0 TBH PROTEIN URINE NEGATIVE NEG/TRACE mg/dL TBH GLUCOSE URINE UA NEGATIVE NEGATIVE mg/dL TBH BILIRUBIN URINE NEGATIVE NEGATIVE TBH KETONES URINE NEGATIVE NEGATIVE mg/dL TBH BLOOD URINE NEGATIVE NEGATIVE TBH NITRITE URINE NEGATIVE NEGATIVE TBH UROBILINOGEN URINE 0.2 0.2 - 1.0 EU/dL TBH LEUKOCYTE ESTERASE URINE SMALL(A) NEGATIVE TBH URINE MICROSCOPIC INDICATED YES [facility] 12/22/2024 10:4 1 AM EDT 12/22/2024 10:58 AM EDT Narrative CLINISYNC - 12/22/2024 11:23 AM EDT Wendy Burden NP CLINISYNC Final Result CLINISYNC TB * Urine culture (12/22/2024 10:41 AM EDT) [facility] NOTE 75,000 colonies/ml mixed bacterial skin contaminants 2 Days 12/24/2024 7:25 AM EDT [facility] Urine Urine specimen obtained by clean catch procedure / Unknown 12/22/2024 10:41 AM EDT 12/22/2024 1:51 PM EDT Comment:Clean-Voided Midstre am Wendy Burden NP LAB MICROBIOLOGY - GENERAL ORDE RABLES Final Result Performing Organization Address [facility] de Phone Number [facility] [address] [place] [address], [facility] [address] [place] [address] * (ABNORMAL) ALL CBC WITH AUTO DIFF (12/14/2024 11:00 AM EDT) Only the most recent of2 resultswithin the time period is included. [facility] TB WBC 10.7 4.0 - 11.0 10 [...] 11:16 AM EDT Generic External Data Provider [facility] F inal Result [facility] * XR chest 1 view (12/06/2024 9:54 [...] IMG XR PROCEDURES Final Result * (ABNORMAL) METRO IRON AND TIBC (10/04/2024 1:42 PM EDT) TBH IRON 33.0(L) 50.0 - 170.0 ug/dL TBH TBH TOTAL IRON BINDING CAPACITY 340.0 250.0 - 450.0 ug/dL TBH TBH PERCENT IRON SATURATION 9.7 % TBH 10/04/2024 1:42 PM EDT 10/04/2024 1:48 PM EDT Narrative CLINISYNC - 10/04/2024 2:35 PM EDT Generic External Data Provider CLINISYNC F inal Result CLINISYDHIRAJ [facility] * CCF FERRITIN (10/04/2024 1:42 PM EDT) FERRITIN 29.0 8.0 - 252.0 ng/mL TBH 10/04/2024 1:42 PM EDT 10/04/2024 1:48 PM EDT Narrative [facility]IN[facility]YNC - 10/04/2024 2:39 PM EDT Generic External Data Provider CLINISYNC F inal Result [facility]INIS[facility]NC [facility] * (ABNORMAL) ALL SED RATE (10/04/2024 1:42 PM EDT) TBH SED RATE 78(H) <=30 mm/hr [facility] 10/04/2024 1:42 PM EDT 10/04/2024 1:48 PM EDT Narrative [facility]IN[facility] - 10/04/2024 2:04 PM EDT Generic External Data Provider CLINISYNC F inal Result [facility]IN[facility]NC [facility] * (ABNORMAL) ALL C REACTIVE PROTEIN (10/04/2024 1:42 PM EDT) C REACTIVE PROTEIN 1.02(H) <=0.50 mg/dL TBH 10/04/2024 1:42 PM EDT 10/04/2024 1:48 PM EDT Narrative [facility]IN[facility]YNC - 10/04/2024 2:34 PM EDT Generic External Data Provider CLINISYNC F inal Result [facility]IN[facility] from Last [address] [place] [address] [address] [address] MEDICARE ADVANTAGE Care Teams Lamp Shades Supervisor Relationship Specialty Start Date End Date Charanjit Chen MD [address] [place] [address] PCP - General Family Medicine 02/11/24 Henok Hendrix MA [address] [place] [address] Family Medicine 05/24/24
--- OUTSIDE RECORDS SUMMARY | 2024-12-29 09:06 | XMS_ITS | Encounter Summary ---
Author Organization [facility] Address [address] [place] [address] Care Team Providers Care Sheet Rock Applicator Name Role Phone Flower Stokes LPN Unavailable Unavailable Charanjit Chen MD Primary Care Provider Betty Singh NP Unavailable Anne Hartley LPN Unavailable Henok Hendrix MA Unavailable [phone] Encounter Details Date Type Department Care Team (Late st Contact Info) Description 02/22/2024 Clinisync Result Encounter [facility] External Department Unsolicited Shaikh Horan MD [address] [place] [address] Social History Tobacco Use Types Packs/Day Years [...] any clubs o r organizations such as moravian groups, unions, fraternal or athletic groups, or [...] Recorded Patient Health Questionnaire-2 Score 0 02/22/2024 [facility] - Occupational Stress Questionnaire Answer Date [...] place to sleep or slept in a mcfp (including now)? No 12/08/2023 Comments Unknown Sex [...] 01/26/2025 10:30 AM EDT Office Visit [facility] [address] [place] [address] Wendy Burden, CLOTILDE [address] [place] [address] documented as of this encounter Procedures Procedure Name Priority Date/Time Associated Diagnosis Comments CA HOLTER MONITOR 2-7 DAYS 02/22/2024 1:27 PM EDT documented in this encounter Results * CA HOLTER MONITOR 2-7 DAYS (02/22/2024 1:27 PM EDT) Anatomical Region Laterality Modality Other 02/22/2024 1:27 PM EDT Narrative 02/23/2024 6:56 AM EDT [facility] [place] [id number] Cardiology Report Signed Patient: BHUPENDRA MIRANDA MR#: [id number] : 1950 Acct:[id number] Age/Sex: 73 / F ADM Date: 02/12/24 Loc: CARD Attending Dr: Shaikh Aung Davidson Ordering Physician: Shaikh Lety Horan Date of Service: 02/12/24 Procedure(s): CA holter montior 2-7 days Accession Number(s): [id number] cc: Shaikh Lety Horan The [facility] Test Date: 2024-02-22 Pat Name: BHUPENDRA MIRANDA Department: Room: - Gender: Female Senior Internet Sales Consultant: : 1950 Requested By: SHAIKH AUNG Order Number: [id number] Reading MD: KEEGAN COMER Interpretive Statements Predominant [...] 02/23/24 0656 02/23/24 0656 DD/ 1327 TD/TT: Optical Mechanic: Procedure Note Radiology, Radiologist, MD - 02/23/2024 [place] [address] Cardiology Report Signed Patient: BHUPENDRA MIRANDA MMR#: [id number] : 1950cct:[id number] Age/Sex: 73 / FADM Date: 02/12/24 Loc: CARD Attending Dr: Shaikh Aung Davidson Ordering Physician: Shaikh Lety Horan Date of Service: 02/12/24 Procedure(s): CA holter montior 2-7 days Accession Number(s): [id number] cc: Shaikh Lety Horan The [facility] Test Date: 2024-02-22 Pat Name: BHUPENDRA MIRANDA Department: Room: - Gender: Female Senior Internet Sales Consultant: : 1950 Requested By: SHAIKH AUNG Order Number: [id number] Reading MD: KEEGAN COMER Interpretive Statements Predominant [...] By:02/23/24 0656 02/23/24 0656 DD/ 1327 TD/TT: Optical Mechanic: us Shaikh Aung [facility] Final Result documented in this encounter Visit Diagnoses Not on filedocumented in this encounter Additional Health Concerns Assessment Noted Time PHQ-9 Depression Total Score: 5 07/09/20 23 2:09 PM EST A fall risk assessment has been complete d for the patient 12/08/2023 9:26 AM EDT documented as of this encounter Care Teams Sheet Rock Applicator Relationship Specialty Start Date End Date Charanjit Chen MD [address] [place] [address] PCP - General Family Medicine 02/11/24 Flower Stokes LPN Licensed Practical Nurse Family Medicine 11/26/23 Betty Singh NP [address] [place] [address] Nurse Practitioner Family Medicine 02/11/24 11/20/24 Anne Hartley LPN [address] [place] [address] Licensed Practical Nurse Family Medicine 03/25/2405/13 Henok Hendrix, [place] [address] [place] [address] Family Medicine 05/24/24 documented as of this encounter
--- OUTSIDE RECORDS SUMMARY | 2024-12-29 09:06 | XMS_ITS | Encounter Summary ---
Author Organization [facility] Address [address] [place] [address] Care Team Providers Care Technical Buyer Name Role Phone Flower Stokes LPN Unavailable Unavailable Charanjit Chen MD Primary Care Provider [phone] Betty Singh NP Unavailable [phone] Anne Hartley LPN Unavailable Henok Hendrix MA Unavailable [phone] Encounter Details Date Type Department Care [...] Recorded Patient Health Questionnaire-2 Score 0 02/22/2024 [facility] Health - Occupational Stress Questionnaire Answer Date [...] a retirement (including now)? No 12/08/2023 Comments Unknown Sex [...] Office Visit [facility] [address] [place] [address] Wendy Burden NP [address] [place] [place] [address] documented as of this encounter Procedures Procedure Name Priority Date/Time Associated Diagnosis Comments BRONCHOSCOPY W OR WO FLUORO 03/10/2024 7:34 AM EDT documented in this encounter Results * BRONCHOSCOPY W OR WO FLUORO (03/10/2024 7:34 AM EDT) Anatomical Region Laterality Modality Radiographic Meagan ging 03/10/2024 7:34 AM EDT Narrative 03/10/2024 7:36 [place] [address] Fluoroscopy Report Signed Patient: BHUPENDRA MIRANDA MR#: [id number] : 1950 Acct:[id number] Age/Sex: 73 / F ADM Date: 03/09/24 Loc: SURGOUT Attending Dr: Leigh Thompson D.O. Ordering Physician: Leigh Thompson D.O. Date of Service: 03/09/24 Procedure(s): FL Bronchoscopy NO CHARGE Accession Number(s): [id number] cc: BETTY SINGH; Leigh Thompson D.O. [place] [id number] Patient Name: BHUPENDRA MIRANDA MRN: [id number] date: 1950 Sex: F Assigned Patient Location: [facility] Current Patient Location: Accession/Order Number: [id number] Exam Date: 03/09/2024 12:45 Report Date: 03/10/2024 [...] Signed By: 03/10/24 0736 DD/ 0734 TD/TT: [employer]: Procedure Note Radiology, Radiologist, MD - 03/10/2024 [facility] [place] [id number] Fluoroscopy Report Signed Patient: BHUPENDRA MIRANDA MMR#: [id number] : 1950cct:[id number] Age/Sex: 73 / FADM Date: 03/09/24 Loc: SURGOUT Attending Dr: Leigh Thompson D.O. Ordering Physician: Leigh Thompson D.O. Date of Service: 03/09/24 Procedure(s): FL Bronchoscopy NO CHARGE Accession Number(s): [id number] cc: BETTY SINGH; Leigh Thompson D.O. [address] [address] Patient Name: BHUPENDRA MIRANDA MRN: [facility]:[id number] date: 1950 Sex: F Assigned Patient Location: SURGOUT Current Patient Location: Accession/Order Number: [id number] Exam Date: 03/09/2024 12:45 Report Date: 03/10/2024 [...] Jeff Melton M.D. Signed By:03/10/2436 DD/ TD/TT: [employer]: us Generic External Data Provider IMG XR PROCEDURES Final Result documented in this encounter Visit Diagnoses Not on filedocumented in this encounter Additional Health Concerns Assessment Noted Time PHQ-9 Depression Total Score: 5 07/09/20 23 2:09 PM EST A fall risk assessment has been complete d for the patient 12/08/2023 9:26 AM EDT documented as of this encounter Care Teams Technical Buyer Relationship Specialty Start Date End Date Charanjit hCen MD [address] [place] [address] PCP - General Family Medicine 02/11/24 Flower Stokes LPN Licensed Practical Nurse Family Medicine 11/26/23 Betty Singh NP [address] [place] [address] Nurse Practitioner Family Medicine 02/11/24 11/20/24 Anne Hartley LPN [address] [place] [address] Licensed Practical Nurse Family Medicine 03/25/2405/13 Henok Hendrix, [place] [address] [place] [address] Family Medicine 05/24/24 documented as of this encounter
--- OUTSIDE RECORDS SUMMARY | 2024-12-29 09:06 | XMS_ITS | Encounter Summary ---
Author Organization [facility] Address [address] [place] [address] Care Team Providers Care Sat Tutor Name Role Phone Charanjit Chen MD Primary Care Provider Betty Singh NP Unavailable [phone] Henok Hendrix MA Unavailable [phone] Encounter Details Date Type Department Care Team (Late st Contact Info) Description 06/14/2024 Orders Only [facility] [address] [place] [address] Shaikh Horan MD [address] [place] [address] Social History Tobacco Use Types Packs/Day Years [...] How often do you attend chur or quaker services? Never 12/08/2023 Do you belong to any clubs o r organizations such as restorationism groups, unions, fraternal or athletic groups, or [...] Recorded Patient Health Questionnaire-2 Score 0 03/24/2024 [facility] Health - Occupational [...] Office Visit [facility] [address] [place] [address] Wendy Burden NP [address] [place] [address] documented as of this encounter Procedures Procedure [...] documented as of this encounter Care Teams Sat Tutor Relationship Specialty Start Date End Date Charanjit Chen MD [address] [place] [address] PCP - General Family Medicine 02/11/24 Betty Singh NP [address] [place] [address] Nurse Practitioner Family Medicine 02/11/24 11/20/24 Henok Hendrix, [place] [address] [place] [address] Family Medicine 05/24/24 documented as of this encounter
--- OUTSIDE RECORDS SUMMARY | 2024-12-29 09:06 | XMS_ITS | Encounter Summary ---
Author Organization [facility] Address [address] [place] [address] Care Team Providers Care Tax Associate Name Role Phone Charanjit Chen MD Primary Care Provider [phone] Betty Singh SQL DATABASE PROGRAMMER Unavailable Anne Hartley LPN Unavailable Henok Hendrix MA Unavailable [phone] Encounter Details Date Type Department Care Team (Latest Contact Info) Description 05/24/2024 Abstract [facility] EXT DEP Javier Villanueva, DO [address] [address] Social History Tobacco Use Types Packs/Day Years [...] often do you attend chur ch or anglican services? Never 12/08/2023 Do you belong to any clubs o r organizations such as tenriism groups, unions, fraternal or athletic groups, or [...] Recorded Patient Health Questionnaire-2 Score 0 03/24/2024 [facility] ional Health - Occupational [...] No 12/08/2023 Housing Stability Vital Sign Answer Larui e Recorded In the last 12 months, [...] a mcfp (including now)? No 12/08/2023 Comments No Sex [...] Office Visit [facility] [address] [place] [address] Wendy Burden NP [address] [place] [address] documented as of this encounter Visit Diagnoses Not on filedocumented in this encounter Additional Health Concerns Assessment Noted Time PHQ-9 Depression Total Score: 5 07/09/20 23 2:09 PM EST A fall risk assessment has been complete d for the patient 12/08/2023 9:26 AM EDT documented as of this encounter Care Teams Tax Associate Relationship Specialty Start Date End Date Charanjit Chen MD [address] [place] [place] [address] PCP - General Family Medicine 02/11/24 Betty Singh NP [address] [place] [place] [address] Nurse Practitioner Family Medicine 02/11/24 11/20/24 Anne Hartley LPN [address] [place] [address] Licensed Practical Nurse Family Medicine 03/25/2405/13 Henok Hendrix, [place] [address] [place] [address] Family Medicine 05/24/24 documented as of this encounter
--- OUTSIDE RECORDS SUMMARY | 2024-12-29 09:06 | XMS_ITS | Encounter Summary ---
Author Organization [facility] Address [address] [place] [address] Care Team Providers Care Brick Paver Name Role Phone Charanjit Chen MD Primary Care Provider Henok Hendrix MA Unavailable [phone] Encounter Details Date Type Department Care Team (Late st Contact Info) Description 12/19/2024 Refill [facility] [address] [place] [address] Wendy Burden, CLOTILDE [address] [place] [address] Alteration of awareness Social History Tobacco Use [...] How often do you attend chur or congregation services? Never 12/08/2023 Do you belong to any clubs o r organizations such as jain groups, unions, fraternal or athletic groups, or [...] Recorded Patient Health Questionnaire-2 Score 1 08/02/2024 [facility] Occupat ionri Health - Occupational Stress Questionnaire Answer Date [...] No 12/08/2023 Housing Stability Vital Sign Answer Aluri e Recorded In the last 12 months, [...] Office Visit [facility] [address] [place] [address] Wendy Burden NP [address] [place] [address] documented as of this encounter Visit Diagnoses Diagnosis Alteration of awareness documented in this encounter Additional Health Concerns Assessment Noted Time PHQ-9 Depression Total Score: 10 025 11:00 AM EST A fall risk assessment has been complete d for the patient 12/08/2023 9:26 AM EDT documented as of this encounter Care Teams Brick Paver Relationship Specialty Start Date End Date Charanjit Chen MD [address] [place] [address] PCP - General Family Medicine 02/11/24 Henok Hendrix MA [address] [place] [address] Family Medicine 05/24/24 documented as of this encounter
--- OUTSIDE RECORDS SUMMARY | 2024-12-29 09:06 | XMS_ITS | Referral Summary ---
Author Organization [facility] Address [address] [place] [address] Care Team Providers Care Kennel Helper Name Role Phone Eryn Lundberg MD Unavailable Eryn Lundberg MD Primary Care Provider [phone] Encounters Date Type Department Care Team Description 12/15/2024 Telephone [facility] Endoscopy [address] [place] [address] Annetta Medrano, RACHELL from Last [...] Colon HISTOLOGY - TISSUE EXAM Marlo Borden, CIRCUIT BREAKER MECHANIC 06/21/2024 1421 B : polyp adjcent to [...] Most Recently Relevant to Health Maintenance Insurance [facility] MEDICARE ADVANTAGE Care Teams Kennel Helper Relationship Specialty Start Date End Date Eryn Lundberg MD [address] [place] [address] [address] [place] [address] PCP - General Oncology 06/21/24 Eryn Lundberg MD [address] [place] [address] [address] [place] [address] Consulting Physician Oncology 05/27/24
--- OUTSIDE RECORDS SUMMARY | 2024-12-29 09:06 | XMS_ITS | Clinical Summary ---
Author Organization [facility] Address [address] [place] [address] Care Team Providers Care Vinyl Cutter Name Role Phone Eryn Lundberg MD Unavailable [phone] Eryn Lundberg MD Primary Care Provider [phone] Allergies No known active allergies Medications albuterol [...] Team Description 12/15/2024 Telephone [facility] Endoscopy [address] [place] [address] Annetta Medrano RN from Last [...] Most Recently Relevant to Health Maintenance Insurance [facility] MEDICARE ADVANTAGE Care Teams Vinyl Cutter Relationship Specialty Start Date End Date Eryn Lundberg MD [address] [place] [address] [address] [place] [address] PCP - General Oncology 06/21/24 Eryn Lundberg MD [address] [place] [address] [address] [place] [address] Consulting Physician Oncology 05/27/24
--- OUTSIDE RECORDS SUMMARY | 2024-12-29 09:06 | XMS_ITS | Encounter Summary ---
Author Organization [facility] Address [address] [place] [address] Care Team Providers Care Beauty Culturist Name Role Phone Flower Stokes LPN Unavailable Unavailable Charanjit Chen MD Primary Care Provider [phone] Betty Singh NP Unavailable [phone] Anne Hartley LPN Unavailable Henok Hendrix MA Unavailable [phone] Encounter Details Date Type Department Care [...] How often do you attend chur or tenriism services? Never 12/08/2023 Do you belong to any clubs o r organizations such as anglican groups, unions, fraternal or athletic groups, or [...] Recorded Patient Health Questionnaire-2 Score 0 02/22/2024 [facility] of Occupat ionct Health - Occupational Stress [...] a custodial (including now)? No 12/08/2023 Comments Unknown Sex [...] Office Visit [facility] [address] [place] [address] Wendy Burden NP [address] [place] [address] documented as of this encounter Procedures Procedure [...] PM EDT Narrative 03/09/2024 2:49 [place] [address] XRay Report Signed Patient: BHUPENDRA MIRANDA MR#: [id number] : 1950 Acct:[id number] Age/Sex: 73 / F ADM Date: 03/09/24 Loc: SURGOUT Attending Dr: Leigh Thompson D.O. Ordering Physician: Leigh Thompson D.O. Date of Service: 03/09/24 Procedure(s): XR chest 1V Accession Number(s): [id number] cc: BETTY SINGH; Leigh Thompson D.O. The [address] [address] Patient Name: BHUPENDRA MIRANDA MRN: [id number] date: 1950 Sex: F Assigned Patient Location: [facility] Current Patient Location: [facility] Accession/Order Number: [id number] Exam Date: 03/09/2024 14:00 Report Date: 03/09/2024 [...] Signed By: 03/09/24 1449 DD/ 1447 TD/TT: Storage Management Consultant: Procedure Note Radiology, Radiologist, - 03/09/2024 [place] [address] XRay Report Signed Patient: BHUPENDRA MIRANDA MMR#: [id number] : 1950cct:[id number] Age/Sex: 73 / FADM Date: 03/09/24 Loc: SURGOUT Attending Dr: Leigh Thompson D.O. Ordering Physician: Leigh Thompson D.O. Date of Service: 03/09/24 Procedure(s): XR chest 1V Accession Number(s): [id number] cc: BETTY SINGH; Leigh Thompson D.O. The [place] [id number] Patient Name: BHUPENDRA MIRANDA MRN: [id number] date: 1950 Sex: F Assigned Patient Location: [facility] Current Patient Location: [facility] Accession/Order Number: [id number] Exam Date: 03/09/2024 14:00 Report Date: 03/09/2024 [...] Dictated By: Jeff Melton M.D. Signed By:03/09/24 1449 DD/ 1447 TD/TT: Storage Management Consultant: Generic External Data Provider [facility] Final Result * COCCIDIOIDES ABS, IGG/IGM, EIA (03/09/2024 2:39 PM EDT) COCCIDABS.1 0.5 . EIA Units [facility] Comment: Negative <1.0 Indeterminate 1.0-1.4 Positive >1.4 COCCIDABS.2 0.0 . EIA Units [facility] Comment: Negative <1.0 Indeterminate 1.0-1.4 Positive >1.4 Performed at: [address] [id number] Administrative Analyst: Andrea Stevens MD, Phone: [phone] 03/09/2024 2:39 PM EDT 03/09/2024 2:43 PM EDT Narrative [facility] - 03/12/2024 8:08 PM EDT Generic External Data Provider LAB BLOOD ORDERAB LES Final Result Performing Organization Address [facility] Co de Phone Number * HISTOPLASMA CAPSULATUM ABS. (03/09/2024 2:39 PM EDT) HISTOPLASMA MYCELIAL CF AB. Negative Neg:<1:2 [facility] HISTOPLASMA YEAST CF AB Negative Neg:<1:2 [facility] Comment: Performed at: [address] [id number] Administrative Analyst: Erick Khalil MD, Phone: [phone] 03/09/2024 2:39 PM EDT 03/09/2024 2:43 PM EDT Narrative [facility] - 03/13/2024 2:07 PM EDT Generic External Data Provider LAB BLOOD ORDERAB LES Final Result Performing Organization Address [facility] Co de Phone Number [facility] * BLASTOMYCES ABS, QN, DID (03/09/2024 2:39 PM EDT) BLASTOMYCES ABS, QN, DID Negative Neg:<1:1 [facility] Comment: Performed at: - [facility] [id number] Administrative Analyst: Erick Khalil MD, Phone: [phone] 03/09/2024 2:39 PM EDT 03/09/2024 2:43 PM EDT Narrative [facility] - 03/13/2024 2:07 PM EDT us Generic External Data Provider LAB BLOOD ORDERAB LES Final Result [facility] documented in this encounter Visit Diagnoses Not on filedocumented in this encounter Additional Health Concerns Assessment Noted Time PHQ-9 Depression Total Score: 5 07/09/20 23 2:09 PM EST A fall risk assessment has been complete d for the patient 12/08/2023 9:26 AM EDT documented as of this encounter Care Teams Beauty Culturist Relationship Specialty Start Date End Date Charanjit Chen MD [address] [place] [address] PCP - General Family Medicine 02/11/24 Flower Stokes LPN Licensed Practical Nurse Family Medicine 11/26/23 Betty Singh NP [address] [place] [address] Nurse Practitioner Family Medicine 02/11/24 11/20/24 Anne Hartley LPN [address] [place] [address] Licensed Practical Nurse Family Medicine 03/25/2405/13 Henok Hendrix, [place] [address] [place] [address] Family Medicine 05/24/24 documented as of this encounter
--- OUTSIDE RECORDS SUMMARY | 2024-12-29 09:06 | XMS_ITS | Encounter Summary ---
Author Organization [facility] tem Address [id number] [address] [place] [address] Care Team Providers Care Sleeping Bag Filler Name Role Phone Betty Singh JOCKEY VALET-QUALITY ASSURANCE COORDINATOR Primary Care Pr ovider Reason for Visit * Reason Onset Date Comments referral 12/19/2024 Encounter Details Date Type Department Care Team (Late st Contact Info) Description 12/19/2024 Telephone [facility] Neurology, A Department of [facility] [address] [facility] [address] [place] [address] Brenna Morel referral Social History Tobacco Use Types Packs/Day Years Used Date Smoking Tobacco: Former Cigarettes Smokeless Tobacco: Never Alcohol Use Standard Drinks/Week Comments Not Currently 0 (1 standard drink = 0.6 oz pur e alcohol) [facility] Utilities Answer Date Recorded In the past 12 months has [employer], gas, oil, or water [employer] threatened to shut off services in your [...] Abdi Kimble and patient was admitted to [facility]. What is a good call back number? [facility] [phone] Please Advise. Would patient need to schedule [...] scheduling an appt with the patient when administrative underwriter was giving the address and sherealized we are located in [place]. She stated she doesn't want [place] and that she will not go to [place]. She then disconnected the call Scenic Arts Supervisor canceled the appt. documented in this encounter [...] on filedocumented in this encounter Care Teams Sleeping Bag Filler Relationship Specialty Start Date End Date Betty Singh, JOCKEY VALET-QUALITY ASSURANCE COORDINATOR [address] [place] [address] PCP - General Nurse Practitioner 06/13/24 documented as of this encounter
--- OUTSIDE RECORDS SUMMARY | 2024-12-29 09:06 | XMS_ITS | Encounter Summary ---
Author Organization [facility] Address [address] [place] [address] Care Team Providers Care Handkerchief Folder Name Role Phone Eryn Lundberg MD Unavailable [phone] Eryn Lundberg MD Primary Care Provider [phone] Encounter Details Date Type Department Care Team (Late st Contact Info) Description 12/15/2024 Telephone [facility] Endoscopy [address] [place] [address] Annetta Medrano, RACHELL Social History [...] on filedocumented in this encounter Care Teams Handkerchief Folder Relationship Specialty Start Date End Date Eryn Lundberg MD [address] [place] [address] [address] [place] [address] PCP - General Oncology 06/21/24 Eryn Lundberg MD [address] [place], [place] [address] [address] [place] [address] Consulting Physician Oncology 05/27/24 documented as of this encounter
--- OUTSIDE RECORDS SUMMARY | 2024-12-29 09:06 | XMS_ITS | Encounter Summary ---
Author Organization [facility] Address [address] [place] [address] Care Team Providers Care Bilingual Inside Sales Representative Name Role Phone Charanjit Chen MD Primary Care Provider [phone] Betty Singh NP Unavailable Anne Hartley LPN Unavailable Henok Hendrix MA Unavailable [phone] Encounter Details Date Type Department Care Team (Late st Contact Info) Description 04/22/2024 Orders Only [facility] [address] [place] [address] Betty Singh NP Social History Tobacco Use [...] any clubs o r organizations such as congregation groups, unions, fraternal or athletic groups, or [...] Patient Health Questionnaire-2 Score 0 03/24/2024 [facility] - [...] a alf (including now)? No 12/08/2023 Comments Unknown Sex [...] Office Visit [facility] [address] [place] [address] Wendy Burden NP [address] [place] [address] documented as of this encounter Procedures Procedure Name Priority Date/Time Associated Diagnosis Comments MISCELLANEOUS LAB TEST Routine 04/21/2024 9:22 AM EDT documented in this encounter Results * - Miscellaneous Test (04/21/2024 9:22 AM EDT) Betty Singh [employer]DER [employer] LAB BLOOD ORDERABLES Fin al Result documented in this encounter Visit Diagnoses Not on filedocumented in this encounter Additional Health Concerns Assessment Noted Time PHQ-9 Depression Total Score: 5 07/09/20 23 2:09 PM EST A fall risk assessment has been complete d for the patient 12/08/2023 9:26 AM EDT documented as of this encounter Care Teams Bilingual Inside Sales Representative Relationship Specialty Start Date End Date Charanjit Chen MD [address] [place] [address] PCP - General Family Medicine 02/11/24 Betty Singh NP [address] [place] [address] Nurse Practitioner Family Medicine 02/11/24 11/20/24 Anne Hartley LPN [address] [place] [address] Licensed Practical Nurse Family Medicine 03/25/2405/13 Henok Hendrix, CYNTHIA [address] [place] [address] Family Medicine 05/24/24 documented as of this encounter
--- OUTSIDE RECORDS SUMMARY | 2024-12-29 09:07 | XMS_ITS | Encounter Summary ---
Author Organization [facility] Address [address] [place] [address] Care Team Providers Care Fibreglass Gun Hand Name Role Phone Shaikh NAHEED Horan Primary Care Provider [phone] Flower Stokes LPN Unavailable Unavailable Charanjit Chen MD Primary Care Provider Betty Singh UM NURSE Unavailable Anne Hartley TIME STUDY STATISTICIAN Unavailable Henok Hendrix MA Unavailable [phone] Encounter Details Date Type Department Care Team (Late st Contact Info) Description 12/30/2023 Abstract [facility] [address] [place] [address] Shaikh Horan MD [address] [place] [address] Social History Tobacco Use Types Packs/Day Years [...] often do you attend chur ch or anabaptist services? Never 12/08/2023 Do you belong to any clubs o r organizations such as baptist groups, unions, fraternal or athletic groups, or [...] Recorded Patient Health Questionnaire-2 Score 0 11/09/2023 [facility] - Occupational [...] Visit [facility] [address] [place] [address] Wendy Burden NP [address] [place] [address] documented as of this encounter Visit Diagnoses Not on filedocumented in this encounter Additional Health Concerns Assessment Noted Time PHQ-9 Depression Total Score: 5 07/09/20 23 2:09 PM EST A fall risk assessment has been complete d for the patient 12/08/2023 9:26 AM EDT documented as of this encounter Care Teams Fibreglass Gun Hand Relationship Specialty Start Date End Date Shaikh Horan MD [address] [place] [address] PCP - General Internal Medicine 10/12/23 02/10/24 Charanjit Chen MD [address] [place] [address] PCP - General Family Medicine 02/11/24 Flower Stokes LPN Licensed Practical Nurse Family Medicine 11/26/23 Betty Singh NP [address] [place] [address] Nurse Practitioner Family Medicine 02/11/24 11/20/24 Anne Hartley LPN [address] [place] [address] Licensed Practical Nurse Family Medicine 03/25/2405/13 Henok Hendrix, [place] [address] [place] [address] Family Medicine 05/24/24 documented as of this encounter
--- OUTSIDE RECORDS SUMMARY | 2024-12-29 09:07 | XMS_ITS | Encounter Summary ---
Author Organization [facility] Address [address] [place] [address] Care Team Providers Care Planer Mill Grader Name Role Phone Unavailable Primary Care Provider Unavailabl e Source Comments In the event this information is protected by the Federal Confidentiality of Alcohol and Drug AbusePatient Records regulations: The Federal rules restrict any use of the information to criminally investigate or prosecute any alcohol or drug abuse patient.[facility] Encounter Details Date Type Department Care Team (Late st Contact Info) Description 05/24/2024 Lab Requisition [facility] [address] [place] [address] Javier Villanueva [address] [phone] Person encountering health services to consult on [...] EST) Case Report Surgical Pathology Report Case: [id number] Authorizing Provider: Javier Villanueva Collected: 05/24/2024 11:27 AM Ordering Location: [facility] Received: 05/24/2024 11:26 AM [facility] Pathologist: Leroy Zayas MD, PhD Specimen: Slide(s), 16 SLIDES [id number] 05/26/2024 1:51 PM EST [facility] FINAL DIAGNOSIS A. 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 - See comment. 05/26/2024 1:51 PM EST [facility] at 1351 EST Diagnosis Comment Thank you for allowing us the opportunity to review this case in consultation representing the colon polyp biopsies from the 73-year-old female. Per provided letter and patient note, the clam picker felt the polyp was completely removed. Histologic [...] to contact the GI consultation service at [phone] with questions or if additional follow-up information becomes available. This case was reviewed in conjunction with the GI pathology fellow, Sangita Rai M.D. 05/26/2024 1:51 PM EST [facility] Clinical History CONSULT REQUESTED 05/26/2024 1:51 PM EST [facility] Performing Lab Diagnostic interpretation performed at: [facility], [address] [place] [address] CLIA# [id number] Train Control Technician: Henri Mireles MD 05/26/2024 1:51 PM EST [facility] Blocks or Slides MICROSCOPE SLIDE / Unknown 05/24/2024 11:27 AM EST 05/24/2024 11:26 AM EST us Javier Villanueva SURGICAL PATHOLOGY Final Result [facility] [address] [place], [place] [id number], documented in this encounter Visit Diagnoses Diagnosis Person encountering health services to consult on behalf of another person Other person consulting on behalf of another person documented in this encounter
--- OUTSIDE RECORDS SUMMARY | 2024-12-29 09:07 | XMS_ITS | Clinical Summary ---
Author Organization [facility] Address [address] [place] [address] Care Team Providers Care Coroner/Medical Examiner Name Role Phone Unavailable Primary Care Provider [...]
--- OUTSIDE RECORDS SUMMARY | 2024-12-29 09:07 | XMS_ITS | Encounter Summary ---
Author Organization [facility] Address [id number] [address] [place] [address] Care Team Providers Care Clinical Appeals Auditor Name Role Phone Singh, Betty Jonathan SENIOR SQL SERVER DEVELOPER-SUPERVISOR MECHANIC BOILERMAKING Primary Care Pr ovider Encounter Details Date Type Department Care Team (Late st Contact Info) Description 10/05/2024 Orders Only [facility] [address] [place] [phone] Transcribe, Orders Support User Pain (Primary Dx) Social History Tobacco Use Types Packs/Day Years Used Date Smoking Tobacco: Former Cigarettes Smokeless Tobacco: Never Alcohol Use Standard Drinks/Week Comments Not Currently 0 (1 standard drink = 0.6 oz pur e alcohol) [facility] Utilities Answer Date Recorded In the past 12 months has [employer], oil, or water [employer] threatened to shut off services in your [...] pain documented in this encounter Care Teams Clinical Appeals Auditor Relationship Specialty Start Date End Date Betty Singh, SENIOR SQL SERVER DEVELOPER-SUPERVISOR MECHANIC BOILERMAKING [address] [place] [address] PCP - General Nurse Practitioner 06/13/24 documented as of this encounter
--- OUTSIDE RECORDS SUMMARY | 2024-12-29 09:07 | XMS_ITS | Encounter Summary ---
Author Organization [facility] Address [address] [place] [address] Care Team Providers Care Safety Instruction Police Officer Name Role Phone Charanjit Chen MD Primary Care Provider Betty Singh NP Unavailable Henok Hendrix MA Unavailable [phone] Encounter Details Date Type Department Care Team (Late st Contact Info) Description 10/05/2024 Orders Only [facility] [address] [place] [address] Charanjit Chen MD [address] [place] [address] Social History Tobacco Use Types Packs/Day Years [...] often do you attend chur ch or amish services? Never 12/08/2023 Do you belong to [...] Recorded Patient Health Questionnaire-2 Score 1 08/02/2024 [facility] - [...] place to sleep or slept in a [place] health care facility (including now)? No 12/08/2023 Comments No Sex [...] Office Visit [facility] [address] [place] [address] Wendy Burden NP [address] [place] [address] documented as of this encounter Procedures Procedure [...] documented as of this encounter Care Teams Safety Instruction Police Officer Relationship Specialty Start Date End Date Charanjit Chen MD [address] [place] [address] PCP - General Family Medicine 02/11/24 Betty Singh NP [address] [place] [address] Nurse Practitioner Family Medicine 02/11/24 11/20/24 Henok Hendrix, [place] [address] [place] [address] Family Medicine 05/24/24 documented as of this encounter
--- OUTSIDE RECORDS SUMMARY | 2024-12-29 09:07 | XMS_ITS ---
Author Organization [facility] Address [address] [place] [address] Care Team Providers Care Analysis Manager Name Role Phone Charanjit Chen MD Primary Care Provider Henok Hendrix MA Unavailable [phone] Chronic Care Management (CCM) Status:Enrolled (Active) Start date:11/26/2023 Enrollment date:12/02/2023 Enrollment reason:Referred by provider Overview Please assess for Care Management needs. 12/02/23, 9:28 AM - Flower Stokes LPN- Patient gives verbal consent to be enrolled in CCM Program and understands there could be a bill for this service. Case Team Name Relationship Phone Henok Hendrix MA(Responsible Staff) [phone] Continued Care and Services Coordination
--- OUTSIDE RECORDS SUMMARY | 2024-12-29 09:07 | XMS_ITS | Encounter Summary ---
Author Organization [facility] Address [address] [place] [address] Care Team Providers Care Basket Sorter Name Role Phone Shaikh NAHEED Horan Primary Care Provider [phone] Shaikh NAHEED Horan Unavailable [phone] Shaikh NAHEED Horan Primary Care Provider [phone] Flower Stokes NURSE SUPERVISOR Unavailable Unavailable Charanjit Chen MD Primary Care Provider Betty Singh HORTICULTURALIST Unavailable Anne Hartley NURSE SUPERVISOR Unavailable Henok Hendrix MA Unavailable [phone] Reason for Visit * Reason Comments Med Refill Encounter Details Date Type Department Care Team (Late st Contact Info) Description 08/06/2023 Refill [facility] [address] [place] [address] Shaikh Horan MD [address] [place] [address] Social History Tobacco Use Types Packs/Day Years [...] Visit [facility] [address] [place] [address] Wendy Burden NP [address] [place] [address] documented as of this encounter Visit Diagnoses Not on filedocumented in this encounter Additional Health Concerns Assessment Noted Time PHQ-9 Depression Total Score: 5 07/09/20 23 2:09 PM EST documented as of this encounter Care Teams Basket Sorter Relationship Specialty Start Date End Date Shaikh Horan MD PCP - General Internal Medicine 01/26/23 10/11/23 Shaikh Horan MD [address] [place] [address] PCP - Devoted 04/12/23 11/10/23 Shaikh Horan MD [address] [place] [address] PCP - General Internal Medicine 10/12/23 02/10/24 Charanjit Chen MD [address] [place] [address] PCP - General Family Medicine 02/11/24 Flower Stokes LPN Licensed Practical Nurse Family Medicine 11/26/23 Betty Singh NP [address] [place] [address] Nurse Practitioner Family Medicine 02/11/24 11/20/24 Anne Hartley LPN [address] [place] [address] Licensed Practical Nurse Family Medicine 03/25/2405/13 Henok Hendrix, CYNTHIA [address] [place] [address] Family Medicine 05/24/24 documented as of this encounter
--- OUTSIDE RECORDS SUMMARY | 2024-12-29 09:07 | XMS_ITS | Clinical Summary ---
Author Organization [facility] Address [id number] [address] [place] [address] Care Team Providers Care Product Strategy Director Name Role Phone Singh, Betty Jonathan BANK SECRECY ACT OFFICER-MOLDING ENGINEER Primary Care Pr ovider Allergies No known [...] 12/19/2024 Telephone [facility] Department of [facility] [address] [facility] [address] [place] [address] Brenna Morel referral 10/07/2024 Orders Only [facility] [place] [address] Transcribe, Orders Support User Pain (Primary Dx) 10/05/2024 11:55 AM EDT Ancillary Procedure [facility] [address] [place] [phone] Pain 10/05/2024 11:15 AM EDT Ancillary Procedure [facility] [address] [place] [phone] Pain 10/05/2024 Orders Only [facility] [address] [place] [phone] Transcribe, Orders Support User Pain (Primary Dx) 10/04/2024 4:26 PM EDT - 10/07/2024 11:23 AM EDT Emergency [facility] St[facility] [address] [place] [phone] Discharge Disposition: Telemedicine Discharge 10/04/2024 3:25 PM EDT Ancillary Procedure [facility] [place] [address] Pain 10/04/2024 3:20 PM EDT Ancillary Procedure [facility] [address] [place] [phone] Pain 10/04/2024 2:25 PM EDT Ancillary Procedure [facility] [address] [place] [phone] Pain from Last 3 Months Immunizations Immunization [...] al Result from Last 3 Months Insurance [facility] MEDICARE Advance Directives * Full Code (Latest Code Status on File) Date Activated Date Inactivated Comments 06/15/2024 1:10 PM 06/17/2024 7:37 PM Care Teams Product Strategy Director Relationship Specialty Start Date End Date Betty Singh, BANK SECRECY ACT OFFICER-MOLDING ENGINEER [address] [place] [address] PCP - General Nurse Practitioner 06/13/24
--- OUTSIDE RECORDS SUMMARY | 2024-12-29 09:07 | XMS_ITS | Encounter Summary ---
Author Organization [facility] Address [id number] [address] [place] [address] Care Team Providers Care Radiology Scheduler Name Role Phone Betty Singh AGING DEPARTMENT SUPERVISOR-DIRECTOR SMB SALES Primary Care Pr ovider Encounter Details Date Type Department Care Team (Late st Contact Info) Description 06/14/2024 Orders Only [facility] [address] [place] [phone] Transcribe, Orders Support User Pain (Primary Dx) Social History Tobacco Use Types Packs/Day Years Used Date Smoking Tobacco: Never Assessed [facility] Utilities Answer Date [...] of Assessment Author -1 06/15/2024 6:59 PM tSacia Medellin RN * Question Answer Date of [...] documented as of this encounter Care Teams Radiology Scheduler Relationship Specialty Start Date End Date Betty Singh, AGING DEPARTMENT SUPERVISOR-DIRECTOR SMB SALES [address] [place] [address] PCP - General Nurse Practitioner 06/13/24 documented as of this encounter
--- OUTSIDE RECORDS SUMMARY | 2024-12-29 09:07 | XMS_ITS | Encounter Summary ---
Author Organization [facility] Address [id number] [address] [place] [address] Care Team Providers Care Library Aide Name Role Phone Singh, Betty Jonathan PARER-MULTI MEDIA SPECIALIST Primary Care Pr ovider Encounter Details Date Type Department Care Team (Late st Contact Info) Description 06/15/2024 Orders Only [facility] [address] [place] [phone] Transcribe, Orders Support User Pain (Primary Dx) Social History Tobacco Use Types Packs/Day Years Used Date Smoking Tobacco: Former Cigarettes Smokeless Tobacco: Never Alcohol Use Standard Drinks/Week Comments Not Currently 0 (1 standard drink = 0.6 oz pur e alcohol) [facility] Utilities Answer Date Recorded In the past 12 months has [employer], oil, or water [employer] threatened to shut off services in your [...] Status X 06/17/2024 10:31 AM Isabella Rosen OTR/Debbi documented in this encounter Plan of [...] documented as of this encounter Care Teams Library Aide Relationship Specialty Start Date End Date Betty Singh, PARER-MULTI MEDIA SPECIALIST [address] [place] [address] PCP - General Nurse Practitioner 06/13/24 documented as of this encounter
--- OUTSIDE RECORDS SUMMARY | 2024-12-29 09:07 | XMS_ITS | Encounter Summary ---
Author Organization [facility] Address [address] [place] [address] Care Team Providers Care Nutritional Services Director Name Role Phone Charanjit Chen MD Primary Care Provider Henok Hendrix MA Unavailable [phone] Encounter Details Date Type Department Care Team (Late st Contact Info) Description 12/06/2024 Orders Only [facility] [address] [place] [address] Adam Mckeon MD [address] [place], [place] [phone] Social History Tobacco Use Types Packs/Day Years [...] How often do you attend chur or islam services? Never 12/08/2023 Do you belong to any clubs o r organizations such as uatsdin groups, unions, fraternal or athletic groups, or [...] [facility] Occupat ionwa [facility] - Occupational Stress Questionnaire Answer Date [...] Visit [facility] [address] [place] [address] Wendy Burden NP [address] [place] [address] documented as of this encounter Procedures Procedure Name Priority Date/Time Associated Diagnosis Comments XR CHEST 1 VIEW Routine 12/06/2024 9:54 AM EDT documented in this encounter Results * XR chest 1 view (12/06/2024 9:54 AM EDT) Anatomical Region Laterality Modality Chest Radiographic Meagan ging us Adam Mckeon MD IMG XR PROCEDURES Final Resul t documented in this encounter Visit Diagnoses Not on filedocumented in this encounter Additional Health Concerns Assessment Noted Time PHQ-9 Depression Total Score: 10 025 11:00 AM EST A fall risk assessment has been complete d for the patient 12/08/2023 9:26 AM EDT documented as of this encounter Care Teams Nutritional Services Director Relationship Specialty Start Date End Date Charanjit Chen MD [address] [place] [address] PCP - General Family Medicine 02/11/24 Henok Hendrix MA [address] [place] [address] Family Medicine 05/24/24 documented as of this encounter
--- OUTSIDE RECORDS SUMMARY | 2024-12-29 09:07 | XMS_ITS | Encounter Summary ---
Author Organization [facility] Address [address] [place] [address] Care Team Providers Care Singeing Torch Operator Name Role Phone Charanjit Chen MD Primary Care Provider Henok Hendrix MA Unavailable [phone] Encounter Details Date Type Department Care Team (Late st Contact Info) Description 12/21/2024 Bamboo flowsheet [facility] [address] [place] [address] Wendy Burden NP [address] [place] [address] Social History Tobacco Use Types Packs/Day Years [...] any clubs o r organizations such as advent groups, unions, fraternal or athletic groups, or [...] Recorded Patient Health Questionnaire-2 Score 1 08/02/2024 [facility] Occupat ionhi Health - Occupational Stress Questionnaire Answer Date [...] Office Visit [facility] [address] [place] [address] Wendy Burden NP [address] [place] [address] documented as of this encounter Visit Diagnoses Not on filedocumented in this encounter Additional Health Concerns Assessment Noted Time PHQ-9 Depression Total Score: 10 025 11:00 AM EST A fall risk assessment has been complete d for the patient 12/08/2023 9:26 AM EDT documented as of this encounter Care Teams Singeing Torch Operator Relationship Specialty Start Date End Date Charanjit Chen MD [address] [place] [address] PCP - General Family Medicine 02/11/24 Henok Hendrix MA [address] [place] [address] Family Medicine 05/24/24 documented as of this encounter
--- OUTSIDE RECORDS SUMMARY | 2024-12-29 09:07 | XMS_ITS | Encounter Summary ---
Author Organization [facility] Address [id number] [address] [place] [address] Care Team Providers Care Welcome Center Attendant Name Role Phone Singh, Betty Jonathan HOB GRINDER-VICE PRESIDENT OF INSTRUCTION Primary Care Pr ovider Encounter Details Date Type Department Care Team (Late st Contact Info) Description 10/07/2024 Orders Only [facility] [address] [place] [phone] Transcribe, Orders Support User Pain (Primary Dx) Social History Tobacco Use Types Packs/Day Years Used Date Smoking Tobacco: Former Cigarettes Smokeless Tobacco: Never Alcohol Use Standard Drinks/Week Comments Not Currently 0 (1 standard drink = 0.6 oz pur e alcohol) [facility] Utilities Answer Date Recorded In the past 12 months has [employer] oil, or water [employer] threatened to shut off services in your [...] pain documented in this encounter Care Teams Welcome Center Attendant Relationship Specialty Start Date End Date Betty Singh, HOB GRINDER-VICE PRESIDENT OF INSTRUCTION [address] [place] [address] PCP - General Nurse Practitioner 06/13/24 documented as of this encounter
--- OUTSIDE RECORDS SUMMARY | 2024-12-29 09:07 | XMS_ITS | Encounter Summary ---
Author Organization [facility] Address [address] [place] [address] Care Team Providers Care Frame Operator Name Role Phone Shaikh NAHEED Horan Unavailable [phone] Shaikh ANHEED Horan Primary Care Provider [phone] [place] LPN Unavailable Unavailable Charanjit Chen MD Primary Care Provider Betty Singh FISCAL ANALYST Unavailable [phone] Anne Hartley LPN Unavailable Henok Hendrix MA Unavailable [phone] Reason for Visit * Reason Comments Med Refill Encounter Details Date Type Department Care Team (Late st Contact Info) Description 11/10/2023 Refill [facility] [address] [place] [address] Shaikh Horan MD [address] [place] [address] Primary hypertension Social History Tobacco Use Types [...] Visit [facility] [address] [place] [address] Wendy Burden NP [address] [place] [place] [address] documented as of this encounter Visit Diagnoses Diagnosis Primary hypertension Unspecified essential hypertension documented in this encounter Additional Health Concerns Assessment Noted Time PHQ-9 Depression Total Score: 5 07/09/20 23 2:09 PM EST documented as of this encounter Care Teams Frame Operator Relationship Specialty Start Date End Date Shaikh Horan MD [address] [place] [place] [address] PCP - Devoted 04/12/23 11/10/23 Shaikh Horan MD [address] [place] [address] PCP - General Internal Medicine 10/12/23 02/10/24 Charanjit Chen MD [address] [place] [address] PCP - General Family Medicine 02/11/24 [place] LPN Licensed Practical Nurse Family Medicine 11/26/23 Betty Singh NP [address] [place] [address] Nurse Practitioner Family Medicine 02/11/24 11/20/24 Anne Hartley LPN [address] [place] [address] Licensed Practical Nurse Family Medicine 03/25/2405/13 Henok Hendrix, [place] [address] [place] [address] Family Medicine 05/24/24 documented as of this encounter
--- OUTSIDE RECORDS SUMMARY | 2024-12-29 09:07 | XMS_ITS | Encounter Summary ---
Author Organization [facility] Address [address] [place] [address] Care Team Providers Care Qa Software Tester Name Role Phone Shaikh NAHEED Horan Primary Care Provider [phone] Shaikh NAHEED Horan Unavailable [phone] Shaikh NAHEED Horan Primary Care Provider [phone] [place] GERMAN TUTOR Unavailable Unavailable Charanjit Chen MD Primary Care Provider Betty Singh METALLURGIST HELPER Unavailable Anne Hartley GERMAN TUTOR Unavailable Henok Hendrix MA Unavailable [phone] Reason for Visit * Reason Comments Med Refill Encounter Details Date Type Department Care Team (Late st Contact Info) Description 08/03/2023 Refill [facility] [address] [place] [address] Shaikh Horan MD [address] [place] [phone] Primary hypertension (Primary Dx); Gastroesophageal reflux disease [...] Office Visit [facility] [address] [place] [address] Wendy Burden NP [address] [place] [phone] documented as of this encounter Visit Diagnoses Diagnosis Primary hypertension- Primary Unspecified essential hypertension Gastroesophageal reflux disease without esophagitis Esophageal reflux Other polyneuropathy documented in this encounter Additional Health Concerns Assessment Noted Time PHQ-9 Depression Total Score: 5 07/09/20 23 2:09 PM EST documented as of this encounter Care Teams Qa Software Tester Relationship Specialty Start Date End Date Shaikh Horan MD PCP - General Internal Medicine 01/26/23 10/11/23 Shaikh Horan MD [address] [place] [phone] PCP - Devoted 04/12/23 11/10/23 Shaikh Horan MD [address] [place] [phone] PCP - General Internal Medicine 10/12/23 02/10/24 Charanjit Chen MD [address] [place] [address] PCP - General Family Medicine 02/11/24 [place] LPN Licensed Practical Nurse Family Medicine 11/26/23 Betty Singh NP [address] [place] [address] Nurse Practitioner Family Medicine 02/11/24 11/20/24 Anne Hartley LPN [address] [place] [address] Licensed Practical Nurse Family Medicine 03/25/2405/13 Henok Hendrix, [place]NTH[place] [address] [place] [address] Family Medicine 05/24/24 documented as of this encounter
--- OUTSIDE RECORDS SUMMARY | 2024-12-29 09:07 | XMS_ITS | Encounter Summary ---
Author Organization [facility] Address [address] [place] [address] Care Team Providers Care Salon Manager Name Role Phone Charanjit Chen MD Primary Care Provider Henok Hendrix MA Unavailable [phone] Encounter Details Date Type Department Care Team (Late st Contact Info) Description 12/22/2024 Clinisync Result Encounter [facility] External Department Unsolicited Wendy Burden, CLOTILDE [address] [facility] [place] [address] Social History Tobacco Use Types Packs/Day Years [...] How often do you attend chur or orthodoxy services? Never 12/08/2023 Do you belong to [...] Recorded Patient Health Questionnaire-2 Score 1 08/02/2024 [facility] - Occupational Stress [...] Office Visit [facility] [address] [place] [address] Wendy Burden NP [address] [place] [address] documented as of this encounter Procedures Procedure Name Priority Date/Time Associated Diagnosis Comments [facility] LIPASE Routine 12/22/2024 10:55 AM EDT [facility] CMP (CMP) (FOR REMOTE [facility] USE) Routine 12/22/2024 10:55 AM EDT ALL AMYLASE Routine 12/22/2024 10:55 AM EDT URINE CULTURE - [facility] Routine 12/22/2024 10:41 AM EDT [facility] URINE MICROSCOPIC ONLY Routine 12/22/2024 10:41 AM EDT [facility] UA (CLEAN/CATCH) MICROSCOPIC IF INDICATE Routine 12/22/2024 10:41 AM EDT documented in this encounter Results * [facility] LIPASE (12/22/2024 10:55 AM EDT) LIPASE 31.0 16.0 - 77.0 U/L [facility] 12/22/2024 10:5 5 AM EDT 12/22/2024 10:58 AM EDT Narrative CLINISYNC - 12/22/2024 11:47 AM EDT us Wendytrupti Burden APPLICATION SPEC CLINISYNC Final Result Performing Organization Address City/[facility]/ZIP Co de Phone Number CLINISYNC TB * ALL AMYLASE (12/22/2024 10:55 AM EDT) AMYLASE 64 25 - 115 U/L [facility]H 12/22/2024 10:5 5 AM EDT 12/22/2024 10:58 AM EDT Narrative CLINISYNC - 12/22/2024 11:47 AM EDT Wendytrupti Burden APPLICATION SPEC CLINISYNC Final Result CLINISYNC TB * (ABNORMAL) [facility] CMP (CMP) (FOR REMOTE [facility] USE) (12/22/2024 10:55 AM EDT) SODIUM 142 136 - 145 mmol/L TBH POTASSIUM 4.1 3.5 - 5.1 mmol/L TBH CHLORIDE 103 98 - 107 mmol/L TBH CARBON DIOXIDE 31.1 21.0 - 32.0 mmol/L TBH ANION GAP 12.0 TBH GLUCOSE 106 74 - 106 mg/dL TBH BLOOD UREA NITROGEN 19.0(H) 7.0 - 18.0 mg/dL TBH CREATININE 0.90 0.55 - 1.02 mg/dL TBH TBH EGFR-AF [place] >60 >=60 mL/min/1. 73m 2 TBH TBH EGFR-NON AF [place] >60 >=60 mL/min/1. 73m 2 TBH BUN [...] NP CLINISYNC Final Result Performing Organization Address [facility] de Phone Number [facility] * (ABNORMAL) TB URINE MICROSCOPIC ONLY (12/22/2024 10:41 AM EDT) TB WBC 5-10(A) NONE SEEN #/HPF TBH TBH [...] NP CLINISYNC Final Result Performing Organization Address [facility] Co de Phone Number CLINISYNC TB * (ABNORMAL) TB UA (CLEAN/CATCH) MICROSCOPIC IF INDICATE (12/22/2024 10:41 [...] SMALL(A) NEGATIVE TBH URINE MICROSCOPIC INDICATED YES TB 12/22/2024 10:4 1 AM EDT 12/22/2024 10:58 AM EDT Narrative CLINISYNC - 12/22/2024 11:23 AM EDT us Wendy Burden NP CLINISYNC Final Result Performing Organization Address [facility] de Phone Number CLINISYNC TB * URINE CULTURE - [facility] (12/22/2024 10:41 AM EDT) Pathologist [facility] URINE CULTURE - [facility] Urine Culture - [facility] 75,000 colonies/ml mixed [facility] URINE CULTURE - [facility] bacterial skin contaminants [facility] URINE CULTURE - [facility] 2 Days [facility] URINE CULTURE - [facility] URINE CULTURE - [facility] Testing performed at [facility] URINE CULTURE - [facility] [address] [place] [address] TB 12/22/2024 10:4 1 AM EDT 12/22/2024 10:58 AM EDT Narrative CLINISYNC - 12/26/2024 12:55 PM EDT us Wendy Burden NP LAB BLOOD ORDERABLES Final Resu lt Performing Organization Address City/[facility]/ZIP Co de Phone Number CLINISYNC TB documented in this encounter Visit Diagnoses Not on filedocumented in this encounter Additional Health Concerns Assessment Noted Time PHQ-9 Depression Total Score: 10 025 11:00 AM EST A fall risk assessment has been complete d for the patient 12/08/2023 9:26 AM EDT documented as of this encounter Care Teams Salon Manager Relationship Specialty Start Date End Date Charanjit Chen MD [address] [place] [address] PCP - General Family Medicine 02/11/24 Henok Hendrix MA [address] [place] [address] Family Medicine 05/24/24 documented as of this encounter
--- OUTSIDE RECORDS SUMMARY | 2024-12-29 09:07 | XMS_ITS | Encounter Summary ---
Author Organization [facility] Address [address] [place] [address] Care Team Providers Care Laboratory Machinist Name Role Phone Shaikh NAHEED Horan Primary Care Provider [phone] Shaikh NAHEED Horan Unavailable [phone] Shaikh NAHEED Horan Primary Care Provider [phone] [employer] OVERSIZE LOAD PILOT ESCORT Unavailable Unavailable Charanjit Chen MD Primary Care Provider Betty Singh STUDENT WORKER Unavailable Anne Hartley OVERSIZE LOAD PILOT ESCORT Unavailable Henok Hendrix MA Unavailable [phone] Reason for Visit * Reason Comments Med Refill Encounter Details Date Type Department Care Team (Late st Contact Info) Description 07/02/2023 Refill [facility] [address] [place] [address] Shaikh Horan MD [address] [place] [phone] Gastroesophageal reflux disease without esophagitis (Primary Dx); [...] Office Visit [facility] [address] [place] [address] Wendy Burden NP [address] [place] [address] documented as of this encounter Visit Diagnoses Diagnosis Gastroesophageal reflux disease without esophagitis- Primary Esophageal reflux Other polyneuropathy documented in this encounter Care Teams Laboratory Machinist Relationship Specialty Start Date End Date Shaikh Horan MD PCP - General Internal Medicine 01/26/23 10/11/23 Shaikh Horan MD [address] [place] [address] PCP - Devoted 04/12/23 11/10/23 Shaikh Horan MD [address] [place] [address] PCP - General Internal Medicine 10/12/23 02/10/24 Charanjit Chen MD [address] [place] [address] PCP - General Family Medicine 02/11/24 F[place] Stokes LPN Licensed Practical Nurse Family Medicine 11/26/23 Betty Singh NP [address] [place] [place] [address] Nurse Practitioner Family Medicine 02/11/24 11/20/24 Anne Hartley LPN [address] [place] [address] Licensed Practical Nurse Family Medicine 03/25/2405/13 Henok Hendrix, [place] [address] [place] [address] Family Medicine 05/24/24 documented as of this encounter
--- OUTSIDE RECORDS SUMMARY | 2024-12-29 09:07 | XMS_ITS | Encounter Summary ---
Author Organization [facility] Address [address] [place] [address] Care Team Providers Care Sign Language Teacher Name Role Phone Charanjit Chen MD Primary Care Provider Henok Hendrix MA Unavailable [phone] Encounter Details Date Type Department Care Team (Late st Contact Info) Description 12/22/2024 External Result Encounter [facility] External Department Unsolicited Wendy Burden, CLOTILDE [address] [facility] [place] [address] Social History Tobacco Use Types Packs/Day Years [...] How often do you attend chur or evangelical services? Never 12/08/2023 Do you [...] Recorded Patient Health Questionnaire-2 Score 1 [facility] Answer Date [...] place to sleep or slept in a care home (including now)? No 12/08/2023 Comments No [...] Office Visit [facility] [address] [place] [address] Wendy Burden NP [address] [place] [address] documented as of this encounter Procedures Procedure Name Priority Date/Time Associated Diagnosis Comments CULTURE, URINE, ROUTINE Routine 12/22/2024 10:41 AM EDT documented in this encounter Results * Urine culture (12/22/2024 10:41 AM EDT) [facility] NOTE 75,000 colonies/ml mixed bacterial skin contaminants 2 Days 12/24/2024 7:25 AM EDT [facility] Urine Urine specimen obtained by clean catch procedure / Unknown 12/22/2024 10:41 AM EDT 12/22/2024 1:51 PM EDT Comment:Clean-Voided Midstre am us Wendy Burden RN VASCULAR LAB MICROBIOLOGY - [facility] Final Result [facility] [address] [place] [address], [facility] [address] [facility] [place] [address] documented in this encounter Visit Diagnoses Not on filedocumented in this encounter Additional Health Concerns Assessment Noted Time PHQ-9 Depression Total Score: 10 025 11:00 AM EST A fall risk assessment has been complete d for the patient 12/08/2023 9:26 AM EDT documented as of this encounter Care Teams Sign Language Teacher Relationship Specialty Start Date End Date Charanjit Chen MD [address] [place] [address] PCP - General Family Medicine 02/11/24 Henok Hendrix MA [address] [place] [address] Family Medicine 05/24/24 documented as of this encounter
--- OUTSIDE RECORDS SUMMARY | 2024-12-29 09:26 | XMS_ITS | CCD ---
Author Organization [facility] Inform ion Partnership [facility] Care Team Providers Care Comfort Station Supervisor Name Role Phone FAWWAD, HURTADO H Admitting [...] HO Consulting Unavailable THOMAS, ANDRES Consulting Unavailable TRISTA Morgan, DR ROBERTS Admitting Unavailable TRISTA ., DR ROBERTS Attending Unavailable FAWWAD, HURTADO H Primary Care Unavailable DR ARMANDO EASLEY Consulting Unavailable FAWWAD, HURTADO H Admitting Unavailable FAWWAD, HURTADO H Attending Unavailable FAWWAD, HURTADO H Primary Care Unavailable FAWWAD, HURTADO Primary Care Physician [phone] Cherelle Bautista Unavailable Nigel Valladares Unavailable Aung FARFAN, Hurtado Primary Care Provider Shaikh Horan MD Unavailable MD Aung [facility] Primary Care Provider [phone] MD Bernardino Bhakta Emergency Provider CLOTILDE Bautista-Remi Mckay Attending Provider SHAIKH HORAN Referring Unavailable Arden De Leon Attending Unavailable DO Leigh Thompson Attending Provider MD Mikhail Moon Attending Provider [phone] MD Reynaldo Horanikh Primary Care Provider [phone] Charanjit Chen MD Primary Care Provider [phone] Samantha PLATER PRODUCTION, Chris Unavailable Naeem BELL SPINNER, Anne Unavailable Unavailable Naeem BELL SPINNER, Anne Unavailable Unavailable Henok Hendrix MA Unavailable Unavailable Eros BELL SPINNER, Ardana Unavailable Unavailable Kike BELL SPINNER, Ardana Unavailable Unavailable Singh TECHNICAL DATA ANALYST-ATOMIC SPECTROSCOPIST, Chris Castillo Primary Care Pr ovider Aung FARFAN, Primary Care Provider [phone] Nitza Russell MD Attending Provider Mikhail Moon MD Referring Provider Chris Singh NP Unavailable [phone] Red FARFAN, Mikhail Referring Provider [phone] Samantha PLATER PRODUCTION-CChris Primary Care Provid er Judit Martini MD Attending Provider Magui Cordero PA-C Attending Provider [phone] Mikhail Moon MD Referring Provider Singh PLATER PRODUCTION-C, [facility] er Judit Martini MD Attending Provider Red FARFAN, Mikhail Referring Provider Singh PLATER PRODUCTION-C, [facility] Care [facility] er Judit Martini MD Attending Provider OMBALLI, MOHAMED Referring Unavailable OMBALLI, MOHAMED Referring Unavailable OMBALLI, MOHAMED Referring Unavailable OMBALLI, NEFTALIAMED Attending Unavailable OMBALLI, NEFTALIAMED Referring Unavailable OMBALLI, NEFTALIAMED Attending Unavailable NURIA, ERYN Referring Unavailable NAWRASFLORINDA Attending Unavailable FLORINDA SANDOVAL Admitting Unavailable Singh TECHNICAL DATA ANALYST-ATOMIC SPECTROSCOPIST, [facility] Care Pr ovider CHRIS SINGH Attending UnavailROMEL Vidal Attending Unavailable NURIA, ERYN Referring Unavailable KIANNA ROMAN Attending Unavailable AICHHOLWENDY Petersen Attending Unavailable WENDY BURDEN Attending Unavailable SHAIKH HORAN Attending Unavailable CHRIS SINGH Attending Unavaileduardo e CHRIS SINGH Attending UnavailJAVIER Arreola Attending Unavailable ASAAD, IMAD Referring Unavailable CHRIS SINGH Attending UnavailJAVIER Arreola Attending Unavailable Cherelle Bautista Admitting Unavailable Cherelle Bautista Attending Unavailable [facility] Care Unavailable Asaad, Imad Admitting Unavailable Asaad, Imad Attending Unavailable [facility] Care Unavailable Asaad, Imad Admitting Unavailable Asaad, Imad Attending Unavailable [facility] Care Unavailable Asaad, Imad Referring Unavailable [facility] Unavaila ble Judit Martini Admitting Unavailable Judit Martini Attending Unavailable Bernardino Bhakta Attending Unavailable Bernardino Bhakta Admitting Unavailable [facility] Unavailable Magui Cordero Admitting Unavailable Magui Cordero Attending Unavailable Aichholz, Wendy J Admitting Unavailable Wendy Burden Attending Unavailable Leigh Thompson Admitting Unavailable Leigh Thompson Attending Unavailable Shaikh Horan Primary Care Unavailable Leigh Thompson Admitting Unavailable Leigh Thompson Attending Unavailable Shaikh Horan Primary Care Unavailable Allergies Allergy Classification Reported Allergen(s) Allergy Type Date of Onset Reaction(s) Facility (1 source) No Known Medication Allergies; 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: [No Known Medication Allergies] Propensity to adverse reactions (disorder) [facility] Repository (1 source) ALLERGIES NOT ON FILE; 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: [ALLERGIES NOT ON FILE] Propensity to adverse reactions (disorder) [facility] Repository Medications Current Medications Medication Drug Class(es) Dates Sig (Normalized) Sig (Original) 30 ACTUAT fluticasone furoate 0.2 MG/ACTUAT / umeclidinium 0.0625 MG/ACTUAT / vilanterol 0.025 MG/ACTUAT Dry Powder Inhaler [Trelegy] (2 sources) Trelegy Ellipta 200-62.5-25 MCG/ACT Inhalation for 30 Days Active acetaminophen 300 mg / codeine phosphate 30 mg oral tablet (7 sources) Opioid Agonist Start: 12-03-2024 take 1 tablet by mouth every six hours as needed for pain acetaminophen-cod eine (Tylenol w/ Codeine #3) 300-30 MG tablet TAKE 1 TABLET BY MOUTH EVERY 6 HOURS NEEDED FOR PAIN FOR 5 DAYS 12/03/2024 Active [id number] 200 actuat albuterol 0.09 mg/actuat metered dose [...] Indications: Moderate COPD (chronic obstructive pulmonary disease) (HCC) Inhale 2 puffs every 4 (four) hours if needed for wheezing or shortness of breath 6.7 g 11/26/2023 Active Start: 07-02-2023 take 2 puff(s) by in halation every four hours albuterol HFA 90 mcg/act inhaler Inhale 2 puffs every 4 (four) hours if needed for shortness of breath 0 07/02/2023 Active apixaban 5 mg oral tablet (17 sources) Factor Xa Inhibitor Start: 10-27-2024 End: 01-25-2025 take 1 tablet by mouth in the morning apixaban (Eliquis) 5 MG tablet Indications: Cerebrovascular accident (CVA), unspecified mechanism (HCC) Take [...] daily atorvastatin (Lipitor) 80 MG tablet Indications: Cerebrovascular accident (CVA), unspecified mechanism (CMS/HCC) Take 1 tablet (80 mg) by mouth Daily 90 tablet 10/27/2024 01/25/2025 Active 120 actuat budesonide 0.16 mg/actuat / formoterol fumarate 0.0048 mg/actuat / glycopyrrolate 0.009 mg/actuat metered dose inhaler (20 sources) Corticosteroid, beta2-Adrenergi c Agonist Start: 03-11-2024 Xqjjftqyqz-Hfgxojoh-E ormoterol (Breztri Aerosphere) 160-9-4.8 mcg/actuation HFA aerosol inhaler Active 2 INH INHALATION every day in the morning and in the evening March 11, 2024 12:00am Start: 03-02-2024 End: 06-27-2024 take 2 puff(s) by inhalation in the morning Nvfptzh-Vdhqzkzpxlw-Liixfueahc (Breztri Aerosphere) 160-9-4.8 MCG/ACT aerosol Indications: Moderate COPD (chronic obstructive pulmonary disease) ([facility]) Inhale 2 puffs in the [...] Daily, # 90 cap(s), Refills(s) 0, [facility], 159, cm, 12/24/22 10:00:00 EDT, Height/Length Dosing, 67.6, kg, 12/24/22 10:00:00 EDT, Weight Dosing Start Date: 02/18/23 Status: Ordered fenofibrate 48 mg oral tablet (18 sources) Peroxisome Proliferator Receptor alpha Agonist Start: 03-07-2024 End: 03-07-2025 take 1 tablet by mouth once daily fenofibrate (Tricor) 48 MG tablet Indications: Mixed hyperlipidemia ([facility]) Take 1 tablet (48 mg) by mouth [...] day(s), # 90 tab(s), Refills(s) 0, [facility], 159, cm, 12/24/22 10:00:00 EDT, Height/Length Dosing, 67.6, kg, 12/24/22 10:00:00 EDT, Weight Dosing Start Date: 02/18/23 Stop Date: 05/19/23 Status: Ordered Fluticasone Furoate-Vilanterol (4 sources) Corticosteroid, beta2-Adrenergic Agonist Start: 2024 Fluticasone Furoate-Vilanterol 200-25 mcg/dose blister with device Active 1 INH INHALATION Daily 2024 1:00am Start: 2024 Fluticasone Fu roate-Vilanterol 200-25 mcg/dose blister with device Active 1 INH INHALATION Daily 2024 12:00am Lrvatsugxzu-Injbgtgcr-Evgjby (Trelegy Ellipta) 200-62.5-25 MCG/ACT aerosol powder (1 source) Start: 08-20-2023 End: 11-18-2023 take 1 puff(s) by inhalation in the morning Iovendurkoo-Cjnsqcxyj-Dgfyki (Trelegy Ellipta) 200-62.5-25 MCG/ACT aerosol powder Indications: Moderate COPD (chronic obstructive pulmonary disease) ([facility]) Inhale 1 puff in the morning. 28 each 2 08/20/2023 11/18/2023 Active gabapentin 300 mg oral capsule (20 sources) Anti- epile ptic Agent Start: 06-09-2022 End: 10-31-2024 take 1 [...] (300 mg) before bedtime. 270 capsule 08/02/2024 Active hyoscyamine sulfate 0.125 mg sublingual tablet (4 sources) Start: 12-21-2024 End: 12-28-2024 take 1 tablet by mouth every eight hours hyoscyamine (Levsin/SL) 0.125 MG SL tablet Indications: Chronic abdominal pain , Epigastric pain Take 1 tablet (0.125 mg) by mouth every 8 (eight) hours if needed for cramping for up to 7 days 21 tablet 12/21/2024 12/28/2024 Active lacosamide 100 mg oral table t (20 sources) Anti- epile ptic Agent Start: 09-26-2024 End: 01-18-2025 take 1 tablet by mouth in the morning lacosamide (Vimpat) 100 MG tablet Indications: Alteration of awareness Take 1 tablet (100 mg) by mouth in the morning and 1 tablet (100 mg) before bedtime. 60 tablet 1 12/19/2024 01/18/2025 Active Start: 06-17-2024 End: 09-26-2024 take 1 tablet by mouth in the morning, then take 1 tablet by mouth at bedtime lacosamide (VIMPAT) 150 mg tablet Indications: Witnessed seizure-like activity (CMS-HCC) Take 1 tablet (150 mg total) by mouth in the morning and 1 tablet (150 mg total) before bedtime. 60 tablet 3 06/17/2024 Active lamoTRIgine 150 mg oral tablet (20 sources) Mood Stabilizer, Anti-epileptic Agent Start: 09-26-2024 End: 10-26-2024 take 1 tablet by mouth in the morning lamoTRIgine (LaMICtal) 150 MG tablet Indications: Alteration of awareness Take 1 tablet (150 mg) by mouth in the morning. 30 tablet 2 09/26/2024 Active Start: 07-28-2024 End: 09-26-2024 take 1 tablet by mouth in the morning lamoTRIgine (LaMICtal) 100 mg [...] 2024 1:00am LORazepam 0.5 mg oral tablet (11 sources) Benzodiazepine Start: 10-28-2024 End: 11-30-2024 take 1 tablet by mouth every twenty-four hours as needed for anxiety and anxiety and anxiety LORazepam (Ativan) 0.5 MG tablet Indications: Anxiety Take 1 tablet (0.5 mg) by mouth Daily as needed for anxiety for up to 15 days 15 tablet 11/15/2024 Active losartan potassium 25 mg oral tablet (20 sources) Angiotensin 2 Receptor Tristian Start: 06-18-2024 End: 01-25-2025 take 1 tablet by mouth once daily losartan (Cozaar) 25 MG tablet Indications: Primary hypertension (CMS/HCC) Take 1 tablet (25 mg) by mouth Daily 90 tablet 1 10/27/2024 01/25/2025 Active nicotine 4 mg oral lozenge (2 [...] sources) Proton Pump Inhibitor Start: 11-25-2023 End: 02-19-2025 take 1 tablet by mouth in the morning pantoprazole (ProtoNix) 40 MG EC tablet Indications: Gastroesophageal reflux disease, unspecified whether esophagitis present Take 1 tablet (40 mg) by mouth in the morning and 1 tablet (40 mg) before bedtime. Do not crush, chew, or split. 60 tablet 1 12/21/2024 02/19/2025 Active Start: 08-04-2023 take 1 tablet by edelmira th once daily pantoprazole (ProtoNix) 40 MG EC tablet Indications: Gastroesophageal reflux disease without esophagitis TAKE 1 TABLET BY MOUTH EVERY DAY 30 tablet 0 08/04/2023 Active take 1 tablet by edelmira th once daily Pantoprazole Sodium 40 MG TAKE 1 TABLET BY MOUTH DAILY Oral for 30 Days Active polyethylene glycol 3350 71492 mg powder for oral solution (11 sources) [...] by mouth at bedtime 90 tablet 1 10/28/2024 01/26/2025 Active Completed/Discontinued Medications Medication Drug Class(es) Dates [...] procedure, # 2 tab(s), Refills(s) 0, Pharmacy: [facility], 159, cm, 08/11/22 13:12:00 EST, Height/Length [...] 11, 2024 7:20am Start: 12-30-2023 End: 03-11-2024 Hleujzhqxjs-Bwvguhpub-Jcfixm er (Trelegy Ellipta) 100-62.5-25 mcg blister with device Discontinued INHALATION December 30, 2023 12:00am March 11, 2024 8:20am Start: 12-30-2023 Fluticasone-Um eclidin-Vilanter (Trelegy Ellipta) 100-62.5-25 mcg blister with device Active INHALATION December 30, 2023 12:00am Oxholgbkdsp-Fdtfiaaae-Dmysed er (13 sources) Start: 12-27-2023 End: 03-11-2024 Pammfawpgun-Ivmjfvwct-Hgqddp er (Trelegy Ellipta) 200-62.5-25 mcg blister with device Discontinued 1 INH INHALATION Daily December 26, 2023 11:00pm March 11, 2024 7:20am FreeTextSig: Inhalation; Note: Source Status: Taking; Qty: 60 Each; Provider: Jacquelyn Manning ( ) Start: 12-27-2023 End: 03-11-2024 Fczqstujwan-Nkfwsegpq-Ujtcnd er (Trelegy Ellipta) 200-62.5-25 mcg blister with [...] day(s), # 30 tab(s), Refills(s) 0, Pharmacy: [facility], 159, cm, 12/24/22 10:00:00 EDT, Height/Length Dosing, 67.6, kg, 12/24/22 10:00:00 EDT, Weight Dosing Start Date: 01/06/23 Stop Date: 02/05/23 Status: Ordered polyethylene glycol 3350 580336 mg / potassium chloride 1480 mg / sodium bicarbonate 5720 mg / sodium chloride 89357 mg powder for oral solution (7 sources) Osmotic Laxative Start: 12-24-2022 NuLYTELY Fuentes oral powder for reconstitution See Instructions, 1 EA, Refill(s) 0, Prior to colonoscopy., [facility], 159, cm, 12/24/22 10:00:00 EDT, Height/Length [...] abdominal pain; 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: [Upper abdominal pain] Onset: 3 Episodic Acute cerebrovascular disease (15 sources) Cerebrovascular accident; 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: [Cerebral infarction, unspecified] Onset: 4 10-27-2024 Chronic Anxiety disorders (13 sources) Anxiety; 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: [Anxiety disorder, unspecified] Onset: [...] 3 08-20-2023 Chronic Diabetes mellitus without complication (13 sources) Prediabetes; 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: [Prediabetes] Onset: 5 10-06-2024 Episodic Diseases of mouth; excluding dental (13 sources) Mass of right parotid gland; Translations: [Other diseases of salivary glands] Onset: 5 10-27-2024 Episodic Disorders of lipid metabolism (20 sources) Hyperlipidemia; Translations: [Hyperlipidemia, unspecified] Onset: 2 06-09-2022 Chronic Esophageal disorders (20 sources) Gastroesophageal reflux disease without esophagitis; Translations: [Gastro-esophageal reflux disease without esophagitis] Onset: 3 Resolved: Chronic Essential hypertension (20 sources) Hypertensive disorder; [...] artery] Chronic Other aftercare (1 source) Other mcc (current) drug therapy; Translations: [OTH FDC CURRENT DRUG THERAPY] Onset: 3 Episodic Other aftercare (1 source) salvage determiner (current) use of aspirin; Translations: [FDC CURRENT USE OF ASPIRIN] Onset: 3 Episodic Other aftercare (13 sources) Long-term current use of inhaled steroid; Translations: [salvage determiner (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 steroids] Onset: 5 10-27-2024 Episodic Other and ill-defined heart disease (20 sources) Heart disease; Translations: [Heart disease, unspecified] Onset: 4 06-09-2022 Chronic Other and unspecified benign neoplasm (4 sources) [...] diseases of circulatory system] 05-11-2024 Episodic Other hereditary and degenerative nervous system conditions (20 sources) Restless legs; Translations: [Restless legs syndrome] Onset: 3 08-20-2023 Chronic Other lower respiratory disease (5 sources) Other nonspecific abnormal finding of lung field; Translations: [Swelling, mass, or lump in chest] Onset: 3 Episodic Other nervous system disorders (20 sources) [...] UTERUS] Onset: 3 Episodic Residual codes; unclassified (5 sources) Lack of awareness; Translations: [Unspecified symptoms and signs involving cognitive functions and awareness] 08-02-2024 Episodic Residual codes; unclassified (13 sources) Family history of gene mutation; Translations: [...] Classification Problem Date Documented Da te Episodic/Chronic Epilepsy; convulsions (3 sources) Seizure related finding; Translations: [Unspecified convulsions] Onset: 06-15-2024 06-15-2024 Episodic Malaise and fatigue (1 source) Weakness; [...] of colon] Onset: 04-21-2024 05-11-2024 Episodic Other and unspecified benign neoplasm (2 sources) Polyp of colon; Translations: [Polyp of colon] Onset: 06-21-2024 Episodic Other circulatory disease (7 sources) History of transient ischemic attack Onset: 05-11-2022 08-11-2022 Episodic Other circulatory disease (20 sources) History of cerebrovascular accident; Translations: [Personal history of transient ischemic attack (TIA), and cerebral infarction without residual deficits] Onset: 07-09-2023 Resolved: 10-27-2024 07-09-2023 Episodic Other gastrointestinal disorders (2 sources) Other specified diseases of intestine; Translations: [Other specified diseases of intestine] Onset: 06-21-2024 Episodic Other lower respiratory disease (20 sources) Lung mass; Translations: [Other nonspecific abnormal finding of lung field] Onset: 01-04-2024 12-27-2023 Episodic Other lower respiratory disease (2 sources) Solitary pulmonary nodule; Translations: [Solitary pulmonary nodule] Onset: 04-28-2024 Episodic Other screening for suspected conditions (not mental disorders or infectious disease) (20 sources) Encounter for screening for malignant neoplasm of respiratory organs; Translations: [Encounter for screening mammogram for malignant neoplasm of breast] Onset: 07-09-2022 Episodic Residual codes; unclassified (13 sources) Tobacco user; Translations: [Tobacco use] Onset: 10-27-2024 Resolved: 10-27-2024 10-27-2024 Episodic Syncope (20 sources) Syncope and collapse; Translations: [Syncope and collapse] Onset: 01-04-2024 01-04-2024 Episodic Unclassified (1 source) Abdominal aortic aneurysm (AAA) without rupture, unspecified part I71.40 Unclassified (20 sources) Onset: 05-28-2024 05-28-2024 Results Test Name Value Interpretation Reference Range Facility Urine Cultureon 12-22-2024 Bacteria identified Cx Nom (U) 75,000 colonies/ml mixed bacterial skin contaminants 2 Days PERFORMED BY: [facility] [address] [place] [address] PATHOLOGIST TAKE OUT WAITER/WAITRESS OBDULIO SEAMAN M.D. Normal [facility] Comment on above: Performed By: #### C UU ####[facility] [id number] [place] [address] [facility] 36on 12-15-2024 36 Message left for pat ient to call and schedule a 6 month follow up Colonoscopy with Dr. Florinda Sandoval. She is s/p Colonoscopy with EMR Normal [facility] Telephoneon 12-15-2024 Telephone [id number] Maximiliano Rubi 1950 F Date Provider Department Center 12/15/2024 MARTELL DALLAS [facility] Family History Problem Relation Age of Onset Lung cancer Mother Other Sister Family Status - Relation Status Age at Mother Sister Normal [facility] ALL CBC WITH AUTO DIFFon BASOPHILS ABSOLUTE AUTO [facility].1 [facility] Basophils/100 WBC (Bld) 0.7 % 0.2 - 2.0 % [facility] Eosinophils/100 WBC (Bld) 1.3 % 0.9 - 7.0 % [facility] Erythrocyte distribution width (RBC) [Ratio] 15.9 % High 11.0 - 15.0 % [facility] Hematocrit (Bld) [Volume fraction] 42.7 % 36.0 - 48.0 % [facility] Hemoglobin (Bld) [Mass/Vol] 13.6 g/dL 12.0 - 16.0 g/dL [facility] IMMATURE GRANULOCYTES ABS AUTO 0.03 [facility] Immature granulocytes/100 WBC (Bld) 0.3 % 0.0 - 0.5 % [facility] Interpretation and review of laboratory results Abnormal [facility] LYMPHOCYTES ABSOLUTE AUTO 2.8 [facility] Lymphocytes/100 WBC (Bld) 26 % 20.5 - 60.0 % [facility] MCH (RBC) [Entitic mass] 28.2 pg 26. 7 - 34.0 pg [facility] MCHC (RBC) [Mass/Vol] 31.9 g/dL 29.9 - 35.2 g/dL [facility] MCV (RBC) [Entitic vol] 88.4 fL 81.0 - 99.0 fL [facility] MONOCYTES ABSOLUTE AUTO 1 High N [facility] Monocytes/100 WBC (Bld) 9.3 % 1.7 - 12.0 % [facility] NEUTROPHILS ABSOLUTE AUTO 6.7 High [facility] Neutrophils/100 WBC (Bld) 62.4 % 43.0 - 75.0 % [facility] Platelet mean volume (Bld) [Entitic vol] 9.8 fL 9.5 - 13.5 fL [facility] EO # 0.1 [facility] PLT 375 [facility] RBC 4.83 [facility] WBC 10.7 [facility] Urine Cultureon 10-04-2024 Bacteria identified Cx [facility] (U) ORGANISM: Klebsiella pneumoniae (O:KLEPNE) Ethel Count >100,000 Aerobic BAILEE Charge (NMIC56) SUSCEPTIBILITY [...] RESISTANT TO ALL B-LACTAM DRUGS. PERFORMED BY: [facility] [address] [place] [place] [id number] PATHOLOGIST TAKE OUT WAITER/WAITRESS DIANA MASSEY M.D. Normal [facility] Comment on above: Performed By: #### C EA #### [facility] [address] Urine cultureOrdered By: Amanda Cordero on 10-04-2024 Bacteria identified Cx Nom (U) Abnormal [facility] HISTOLOGY - TISSUE EXAMon LAB AP CASE REPORT Normal [facility] Comment on above: Result Comment: Surg ical Pathology Case: [id number] Authorizing Provider: Florinda Sandoval MD Collected: 06/21/2024 1421 Ordering Location: [facility] Received: 06/21/2024 1505 [facility] Pathologist: Alexandrea Bonds MD Specimens: A) - Large Intestine, Right/Ascending Colon, polyp across to tatto site B) - Large Intestine, Right/Ascending Colon, polyp adjcent to tatto site C) - Large Intestine, Right/Ascending Colon, polypectomy site bx r/o adenoma D) - Large Intestine, Hepatic Flexure Performed By: #### L [id number] ####[facility] (BEAKER)[address] [place] [address] LAB AP CLINICAL INFORMATION Order Diagnoses Normal [facility] Comment on above: Result Comment: K63. 5 - Polyp of ascending colon, unspecified type [ICD-10-CM] K63.89 - Colonic mass [ICD-10-CM] Performed By: #### L [id number] ####[facility] [place] [address] LAB AP GROSS DESCRIPTION Normal [facility] Comment on above: Result Comment: A. L [...] Abdalla, student fellow Performed By: #### L [id number] ####[facility] ([facility])[address] [place] [address] LAB AP MICROSCOPIC DESCRIPTION Microscopic examination performed. [facility] Comment on above: Performed By: #### L [id number] ####[facility] ([facility])[address] [place] [address] LAB AP REPORT FINAL DIAGNOSIS NARRATIVE [facility] Comment on above: Result Comment: A. C olon, ascending polyp across tattoo site, biopsy: - Tubular adenoma B. Colon, ascending polyp adjacent to tattoo site, biopsy: - Tubular adenoma C. Colon, ascending polypectomy site, biopsy: - Benign colonic mucosa - No evidence of dysplasia D. Colon, hepatic flexure polyp, biopsy: - Hyperplastic polyp Performed By: #### L [id number] ####[facility] ([facility])[address] [place] [address] on 06-21-2024 History Of Present Illness Bhupendra Rubi [...] pers (more content not included)... Normal [facility] POCT GLUCOSE METER UNSOLICIT ED RESULTSon 06-21-2024 Glucose [Mass/Vol] 106 mg/dL High 70-105 Univer oliverio [facility] Comment on above: Order Comment: Waive d Testing in the ED is performed under the ED CLIA certificate #[id number]. Result Comment: jhag eman Performed By: #### L [id number] #### [facility] (BEAKER) [address] [place] [address] Telephoneon 06-15-2024 Telephone [phone] Maximiliano Rubi 1950 F Date Provider Department Center 06/15/2024 [id number] LACY DCC ONC DCC Family History Problem Relation Age of Onset Lung cancer Mother Other Sister Family Status - Relation Status Age at Mother Sister Reason for Visit and Comments: Appointment [375] - Tried calling patient to get scheduled for F/U appt 06/16, left a voicemail twice. CJ Normal [facility] Prep for Procedureon 024 Prep for Procedure [id number] Maximiliano Rubi 1950 F Date Provider Department Center 06/13/2024 FLORINDA GTZ [facility] GEORGECornelius Family History Problem Relation Age of Onset Lung cancer Mother Other Sister Family Status - Relation Status Age at Mother Sister Normal [facility] Orders Onlyon 05-27-2024 Orders Only [id number] Maximiliano Rubi 1950 F Date Provider Department Center 05/27/2024 MARTELL DALLAS [facility] JADYN Family History Problem Relation Age of Onset Lung cancer Mother Other Sister Family Status - Relation Status Age at Mother Sister Normal [facility] SURGICAL PATHOLOGY REFER ENCE LAB CONSULTon 05-26-2024 [facility] CASE REPORT [facility] Comment on above: Surgical Pathology R eport Case: [id number] Authorizing Provider: Javier Villanueva Collected: 05/24/2024 11:27 AM Ordering Location: [facility] Received: 05/24/2024 11:26 AM [facility] Laboratory Pathologist: Leroy Zayas MD, PhD Specimen: Slide(s), 16 SLIDES [id number] [facility] CLINICAL HISTORY CONSULT REQUESTED [facility] DIAGNOSIS COMMENT [facility] Comment on above: Thank you for allowi ng us the opportunity to review this case in consultation representing the colon polyp biopsies from the 73-year-old female. Per provided letter and patient note, the geodetic survey director felt the polyp was completely removed. Histologic [...] diagnostic interpretation among the attendees (Eliecer Jaramillo, Doron Victoria, and Devaughn). Thank you for sending this case in consultation. Please do not hesitate to contact the GI consultation service at [phone] with questions or if additional follow-up information becomes available. This case was reviewed in conjunction with the GI pathology fellow, Sangita Rai M.D. F FINAL DIAGNOSIS [facility] Comment on above: A. 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 - See comment. [facility] FINAL PERFORMING LAB [facility] Comment on above: Diagnostic interpret ation performed at: [facility], [address] [place] [address], [address]# [id number] Lab Rep: Henri Mireles MD Specimen Type: FORMALIN-FIXED PARAFFIN-EMBEDDED TISSUE SPECIMEN Ordering Facility: AP External Submitter Address: , , Original Ordering Provider: JAVIER VILLANUEVA [facility] 36on 05-18-2024 36 Attempted to contact patient to schedule a colonoscopy with EMR. Patient is at [facility] already today for an EBUS, and tells me she is having the colonoscopy today, attempted to explain to her the difference in the procedures but she ended up hanging up on me. Will try her tomorrow. Normal [facility] Anesthesiaon 05-18-2024 Anesthesia [id number] Maximiliano Rubi 1950 F Date Provider Department Center 05/18/202436449-MWVSVSEY-MBGAK, TAYL*[facility] OR [facility] C Family History Problem Relation Age of Onset Lung cancer Mother Other Sister Family Status - Relation Status Age at Mother Sister Normal [facility] HISTOLOGY - TISSUE EXAMon LAB AP ADDENDUM 1 Normal [facility] Comment on above: Result Comment: This case ([id number]) was sent to [facility] for PD-L1 22C3 IHC with tumor proportion score (TPS) interpretation and read by Rosie Azevedo MD. The result reads as follows: Tumor Proportion Score: 91-100% Adequacy of specimen: Adequate Addendum electronically signed by Javier Mensah MD on 06/02/2024 at 10:28 AM Performed By: #### L [id number] #### [facility] (BEAKER) [address] [place] [address] LAB AP ASR DISCLAIMER The interpretation of [...] the Clinical Laboratory Improvement Amendments of 1998. [facility] Comment on above: Performed By: #### L [id number] #### [facility] (BEAKER) [address] [place] [address] LAB AP CASE REPORT Normal [facility] Comment on above: Result Comment: Surg ical Pathology Case: [id number] Authorizing Provider: Diana Warren MD Collected: 05/18/2024 1331 Ordering Location: [facility] Main Operating Room Received: 05/18/2024 1432 Pathologist: Javier Mensah MD Specimen: Lung, Left Upper Lobe, Left Upper Lung Mass bx r/o Cancer Performed By: #### L [id number] #### [facility] ([facility] [address] [place] [address] LAB AP CLINICAL INFORMATION Order Diagnoses [facility] Comment on above: Result Comment: R91. 1 - Lung nodule [ICD-10-CM] Performed By: #### L [id number] #### [facility] ([facility]) [address] [place] [address] LAB AP DIAGNOSIS COMMENT [facility] Comment on above: Result Comment: Immu nohistochemical staining shows the tumor cells are positive for TTF-1 and negative for CK5/6. The controls are satisfactory. PD-L1 testing has been requested with results to follow in an addendum. There is a moderate amount of tumor present in the tissue block which may be suitable for additional ancillary testing, if clinically indicated. Performed By: #### L [id number] #### [facility] ([facility] [address] [place] [address] LAB AP GROSS DESCRIPTION [facility] Comment on above: Result Comment: A. L chantel, Left Upper Lobe. Received in formalin labeled with the patient's name Bhupendra Rubi and left upper lung mass BX rule out cancer, is a 2.0 x 0.3 x 0.1 cm aggregate of chandler-pink, feathery soft tissue fragments. The specimen is filtered and submitted in toto in 1 cassette. Saniya Carson, Pathologists' Roll Cutter Student Performed By: #### L [id number] #### [facility] (BEAKER) [address] [place] [address] LAB AP MICROSCOPIC DESCRIPTION Microscopic examination performed. [facility] Comment on above: Performed By: #### L [id number] #### [facility] (BEAKER) [address] [place] [address] LAB AP REPORT FINAL DIAGNOSIS NARRATIVE Normal [facility] Comment on above: Result Comment: Phillip golden, left upper lobe, biopsy: -Adenocarcinoma. Preliminary result electronically signed by Javier Mensah MD on 05/20/2024 at 12:17 PM Performed By: #### L [id number] #### [facility] (BEAKER) [address] [place] [address] HPon 05-18-2024 HP ----- ----- Attestation signed by Diana Warren MD at 05/18/2024 11:17 AM Re-explained the procedure to the patient along with the associated risk of pneumothorax, bleeding, hypoxia, and respiratory failure. Patient is agreeable and will proceed with the scheduled robotic bronchoscopy, TBBx, and Ebus TBNA Diana Warren MD Interventional Pulmonary Medicine Pulmonary and Critical Care Medicine [facility] ----- History Reviewed reviewed. The [...] edema. Skin: Warm and dry. Normal [facility] NON-SENIOR BUSINESS OBJECTS DEVELOPER CYTOLOGY - CELLULAR EXAMon 05-18-2024 LAB AP CASE REPORT Normal Doug duron [facility] Comment on above: Result Comment: Non- gynecologic Cytology Case: [id number] Authorizing Provider: Diana Warren MD Collected: 05/18/2024 1309 Ordering Location: [facility] Main Operating Room Received: 05/19/2024 1251 Pathologist: Javier Mensah MD Specimens: A) - Lung, Left Upper Lobe B) - Lung, Left Upper Lobe C) - Lymph Node Station 7, Lymph Node Station 7 FNA D) - Lymph Node Station 4R, Lymph Node Station 4R FNA Performed By: #### L [id number] #### [facility] (BEAKER) [address] [place] [address] LAB AP CLINICAL INFORMATION [facility] Comment on above: Result Comment: PET avid left upper lobe lung nodule that has increased in size (2.2 cm), 40 pack-year smoking history Performed By: #### L [id number] #### [facility] (BEAKER) [address] [place] [address] LAB AP DIAGNOSIS COMMENT [facility] Comment on above: Result Comment: Ther e is a moderate amount of tumor cells present in the cell block of part A and scant tumor in the cell block of part B for additional studies, if clinically indicated. See also concurrent biopsy, [id number]. Performed By: #### L [id number] #### [facility] (BEAKER) [address] [place] [address] LAB AP GROSS DESCRIPTION [facility] Comment on above: Result Comment: A. 2 air-dried slides, 2 alcohol-fixed slides, 30 mL CytoLyt with clear, red fluid and clots B. 15 mL cloudy, red fluid C. 30 mL CytoLyt with clear, pink fluid D. 30 mL CytoLyt with clear, pink fluid and white flecks Performed By: #### L [id number] #### [facility] (BEAKER) [address] [place] [address] LAB AP INTRAOPERATIVE CONSULTATION Normal [facility] Comment on above: Result Comment: A. L [...] material submitted.* Performed By: #### L [id number] #### [facility] (BEAKER) [address] [place] [address] LAB AP MICROSCOPIC DESCRIPTION [facility] Comment on above: Result Comment: A. S [...] and blood. Performed By: #### L [id number] #### [facility] (BEAKER) [address] [place] [address] LAB AP REPORT FINAL DIAGNOSIS NARRATIVE Normal [facility] Comment on above: Result Comment: A. L chantel, Left Upper Lobe, Ion-guided fine needle aspiration: - Non-small cell carcinoma. See concurrent surgical biopsy [id number] for results of immunohistochemistry. B. Lung, Left Upper Lobe, bronchoalveolar lavage: - Non-small cell carcinoma C. Lymph Node, Station 7, EBUS-guided fine needle aspiration: - Negative for metastatic malignancy. - Cellular evidence of a lymph node. D. Lymph Node, Station 4R, EBUS-guided fine needle aspiration: - Negative for metastatic malignancy. - Cellular evidence of a lymph node. Performed By: #### L [id number] #### [facility] (BEAKER) [address] [place] [address] NURSNOTEon 05-18-[address] Warren viewed c hest xray at bedside and gave short story writer verbal permission to discharge patient home. RN reviewed discharge instructions with patient and significant other at bedside. No questions or concerns expressed at this time. Normal [facility] NURSNOTE X ray is at bedside Normal [facility] NURSNOTE STAT Portable Chest X-Ray in PACU. Follow up at [facility] with Carrol Kunz, for lab results in 2-4 weeks. May resume a Regular Diet and home medications if Chest X-Ray is normal. Normal [facility] NURSNOTE Bronch/EBUS Findings : Left Upper Lung Mass Normal [facility] POCT GLUCOSE METER UNSOLICIT ED RESULTSon 05-18-2024 Glucose [Mass/Vol] 96 mg/dL Normal 70-105 [facility] Comment on above: Order Comment: Waive d Testing in the ED is performed under the ED CLIA certificate #[id number]. Result Comment: aepp ink Performed By: #### L [id number] ####[facility] (BEAKER)[address] [place] [address] Telephoneon 05-18-2024 Telephone [id number] Maximiliano Rubi M 1950 F Date Provider Department Center 05/18/2024 Carine7-MARTELL ROJO [facility] JADYN Family History Problem Relation Age of Onset Lung cancer Mother Other Sister Family Status - Relation Status Age at Mother Sister Normal [facility] Prep for Procedureon 024 Prep for Procedure [id number] Maximiliano Rubi M 1950 F Date Provider Department Center 05/12/2024 383-DIANA WARREN [facility] JADYN Family History Problem Relation Age of Onset Lung cancer Mother Other Sister Family Status - Relation Status Age at Mother Sister Normal [facility] CT CHEST WO IV CONTRASTon CT CHEST [...] MD. Not Vldtd Invalid Interpretation Code [facility] HPon 04-28-2024 ----- ----- Attestation signed by [...] Age: 73 y.o. : 1950 Account No.: [id number] Referring physician: Dr. Lundberg Chief complaint: Lung [...] was initiated by the patient and conducted [id number]-inys-yq-face with use of audio-only real time telephone [...] examination (more content not included)... Normal 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 CT abdomen pelvis w conon CT abdomen pelvis w con [facility] Main [place] [address] [place] [address] CT Scan Report Signed Patient: Bhupendra Rubi MR#: [id number] 306 : 1950 Acct:[id number] Age/Sex: 73 / F ADM Date: 04/21/24 Loc: CT Room: Type: [facility] Attending Dr: Mikhail Moon MD Copies to: Mikhail Moon MD Ordering Provider: Mikhail Moon MD Date of Service: 04/21/24 CT/CT abdomen pelvis w con: D12.6 - Benign neoplasm of colon, unspecified ([id number]) CT/CT chest w con: D12.6 - Benign [...] 12/30/2023. Impression dictated by: Napoleon Jalloh Jr., Jayden04/21/2024 4:03 PM Dictation Location: [place] [address] Transcribed By: [facility] 04/21/24 1603 Dictated By: Napoleon Jalloh Jr, DO 04/21/24 1556 Signed By: 04/21/24 1603 Normal [facility] Creatinineon 04-21-2024 GFR/1.73 sq M.predicted MDRD (S/P/Bld) [Vol rate/Area] mL/min/{1.73_m2} Normal [facility] Comment on above: Order Comment: STAT FOR CT Result Comment: PERF ORMED BY: [facility] [address] [place] [address] PATHOLOGIST TAKE OUT WAITER/WAITRESS JENNIFER ALANIZ M.D. Performed By: #### B UN, CREAT ####[facility] Creatinine [Mass/volume] in Serum or PlasmaOrdered By: Mikhail Moon on 04-21-2024 Creatinine [Mass/Vol] 0.91 mg/dL Normal 0.60-1.20 [facility] Comment on above: Order Comment: STAT FOR CT Performed By: #### B UN, CREAT ####[facility] Kux[address] No Panel InformationOrdered By: Mikhail Moon on 04-21-2024 Estimated GFR (CKD-EPI) > 60.0 mL/Min [facility] Creatinine Clearance (Chem N/A [facility] Serum or plasma carcinoembry onic antigen measurement (mass/volume)Ordered By: Mikhail Moon on 04-21-2024 Carcinoembryonic Ag [Mass/Vol] 10.0 ng/mL High 0.0-3.[address] [facility] Comment on above: Serial tumor marker results determined by assays using different manufacturers or methods may not be comparable.[facility] adult basic education manager and method:[employer] DXI, 2 SITE IMMUNOENZYMATIC SANDWICH ASSAY. Urea nitrogen [Mass/volume] in Serum or PlasmaOrdered By: Mikhail Moon on 04-21-2024 Urea nitrogen [Mass/Vol] 18 mg/dL Normal 7-[address] [facility] Comment on above: Order Comment: STAT FOR CT Performed By: #### B UN, CREAT #### [facility] [address] No Panel InformationOrdered By: Mikhail Moon on 03-25-2024 Miscellaneous Pathology Test See comment [facility] Comment on above: See report. Scanned copy available in EMR. Pathology Request for Lab Co rpon 03-25-2024 Pathology Request for Lab Crys Normal [facility] Comment on above: Order Comment: PATHO LOGY GI SPECIMEN Result Comment: See report. Scanned copy available in EMR. PERFORMED BY: [place] [address] PATHOLOGIST TAKE OUT WAITER/WAITRESS JENNIFER ALANIZ M.D. Performed By: #### P ATH TO [facility] #### [facility] [address] [place] [address] [facility] HISTOPLASMA GAL'BARB AG UR on 03-17-2024 HISTOPLASMA GAL'BARB AG UR Negative <0.2 ng/mL [facility] Comment on above: Performed at: [address] [id number] Experimental Assembler: Erick Khalil MD, Phone: [phone] [facility] HGB HCTon 03-09-2024 Hematocrit (Bld) [Volume fraction] 38.5 % 36.0 - 48.0 % [facility] Hemoglobin (Bld) [Mass/Vol] 12.3 g/dL 12.0 - 16.0 g/dL [facility] Perez 03-09-2024 L Specimen: [id number] Received: 03/10/24 Status: TRINIDAD Araiza Num: [id number] Spec Type: Surgical Subm Dr: Leigh Thompson DO Tissues: A Lung CT-Guided Biopsy (BAL HÉCTOR) Procedures: HE/2, Gross/Micro L4 Age/ Patient Sex Location Account Attending Physician Bhupendra Rubi 73/F LABELL [id number] Leigh Thompson DO SPEC NUM: [id number] RECD: 03/10/24 STATUS: TRINIDAD ARAIZA NUM: [id number] LORA: 03/09/[address]: Leigh Thompson DO ENTERED: 03/10/[address] [facility] DR: Praveen Villalobos SPEC TYPE: Surgical DEPT: JADE GUERRA ENTERED BY: [id number] RECV BY: [id number] ORDERED: HE/2, Gross/Micro L4 ORDERED: HE/2, Gross/Micro [...] are performed supporting the above interpretation Specimen: [id number] Received: 03/10/24 Status: TRINIDAD Araiza Num: [id number] Spec Type: Surgical Subm Dr: Leigh Thompson DO Tissues: A Lung CT-Guided Biopsy (BAL HÉCTOR) Procedures: HE/2, Gross/Micro L4 Patient: Bhupednra Rubi [id number] (Continued) Specimen: [id number] Received: 03/10/24 (Continued) Signed (signature on file) Cha Gomez MD 03/18/24 0936 Specimen: [id number] Received: 03/10/24 Status: TRINIDAD Araiza Num: [id number] Spec Type: Surgical Subm Dr: Leigh Thompson DO Tissues: A Lung CT-Guided Biopsy (BAL HÉCTOR) Procedures: HE/2, Gross/Micro L4 Patient: Bhupendra Rubi [id number] (Continued) Specimen: [id number] Received: 03/10/24 (Continued) CPT Codes 15546 Specimen: [id number] Received: 03/10/24 Status: TRINIDAD Arguellesshonda Num: [id number] Spec Type: Surgical Subm Dr: Leigh Thompson DO Tissues: A Lung CT-Guided Biopsy (BAL HÉCTOR) Procedures: HE/2, Gross/Micro L4 Patient: Bhupendra Rubi [id number] (Continued) Signed (signature on file) Jason Gomez MD 03/18/24 0936 Normal [facility] L Specimen: [id number] Received: 03/15/24 Status: TRINIDAD Araiza Num: [id number] Spec Type: Cytology Subm Dr: Leigh Thompson DO Tissues: A BRONWASH (LEFT UPPER LOBE) Procedures: HE/2, Gross/Micro L4, Cyto Prepstain, PAPSTN Age/ Patient Sex Location Account Attending Physician Bhupendra Rubi 73/F LABELL [id number] Leigh Thompson DO SPEC NUM: [id number] RECD: 03/15/24 STATUS: TRINIDAD JOSE G NUM: [id number] LORA: 03/09/24-[address]: Leigh Thompson DO ENTERED: 03/15/[address]: Griselda,Lab SPEC TYPE: Cytology DEPT: JADE HUMPHREY ENTERED BY: [id number] RECV BY: [id number] ORDERED: HE/2, Gross/Micro L4, Cyto Prepstain, PAPSTN ORDERED: HE/2, Gross/Micro L4, Cyto Prepstain, PAPSTN Pathological Diagnosis Left lung upper lobe cytology: Negative for malignant cells. Gross Description Received fresh is 13 ml clear colorless unfixed fluid for cytology said to have been obtained as left upper lobe for cytology. ThinPrep and cell block preparations are prepared for microscopic examination.(AK/ok) CPT Codes 43373 Specimen: [id number] Received: 03/15/24 Status: TRINIDAD Araiza Num: [id number] Spec Type: Cytology Subm Dr: Leigh Thompson DO Tissues: A BRONWASH (LEFT UPPER LOBE) Procedures: HE/2, Gross/Micro L4, Cyto Prepstain, PAPSTN Patient: Bhupendra Rubi [id number] (Continued) Signed (signature on file) Diana Massey MD 03/16/24 1430 Normal [facility] ALL CBC WITH AUTO DIFFon BASOPHILS ABSOLUTE AUTO 0.1 N [facility] Healthcare Basophils/100 WBC (Bld) 0.9 % 0.2 - 2.0 % [facility] Eosinophils/100 WBC (Bld) 1.1 % 0.9 - 7.0 % [facility] Erythrocyte distribution width (RBC) [Ratio] 14.9 % 11.0 - 15.0 % [facility] Hematocrit (Bld) [Volume fraction] 43.8 % 36.0 - 48.0 % [facility] Hemoglobin (Bld) [Mass/Vol] 14.2 g/dL 12.0 - 16.0 g/dL [facility] IMMATURE GRANULOCYTES ABS AUTO 0.03 [facility] Immature granulocytes/100 WBC (Bld) 0.3 % 0.0 - 0.5 % [facility] Interpretation and review of laboratory results Abnormal [facility] LYMPHOCYTES ABSOLUTE AUTO 2.6 [facility] Lymphocytes/100 WBC (Bld) 23.0 % 20.5 - 60.0 % [facility] MCH (RBC) [Entitic mass] 28.8 pg 26. 7 - 34.0 pg [facility] MCHC (RBC) [Mass/Vol] 32.4 g/dL 29.9 - 35.2 g/dL [facility] MCV (RBC) [Entitic vol] 88.8 fL 81.0 - 99.0 fL [facility] MONOCYTES ABSOLUTE AUTO 1.0 High N [facility] Monocytes/100 WBC (Bld) 8.5 % 1.7 - 12.0 % [facility] NEUTROPHILS ABSOLUTE AUTO 7.5 High [facility] Neutrophils/100 WBC (Bld) 66.2 % 43.0 - 75.0 % [facility] Platelet mean volume (Bld) [Entitic vol] 9.9 fL 9.5 - 13.5 fL [facility] TBH EO # 0.1 [facility] [address] [facility] Healthcare TB RBC 4.93 [facility] TBH WBC 11.2 High [facility] CLINISYNC [facility] US aortaon 12-30-2023 US aorta [facility] [address] [place] [address] Ultrasound Report Signed Patient: Bhupendra Rubi MR#: [id number] 306 : 1950 Acct:[id number] Age/Sex: 73 / F ADM Date: 12/30/23 Loc: [facility] Room: Type: [facility] Attending Dr: Cherelle Bautista [employer]C Ordering Provider: Cherelle Bautista APRN Date of [...] Adam Keller M.D.12/30/2023 9:53 AM Dictation Location: [place] [address] Tech: Yakelin Paige Transcribed By: JOSE MIGUEL 12/30/23 0953 Dictated By: Adam Keller MD 12/30/23 0949 Signed By: 12/30/23 0953 Normal [facility] ABO/Rh Retypeon 12-27-2023 ABO/RH Recheck Result Positive Normal [facility] Comment on above: Result Comment: PERF ORMED BY: [facility] [address] [place] [address] PATHOLOGIST TAKE OUT WAITER/WAITRESS JENNIFER ALANIZ M.D. Activated partial thrombopla stin time (aPTT) in platelet poor plasma by coagulation aOrdered By: Bernardino Bhakta on 12-27-2023 aPTT Coag (PPP) [Time] 24.6 s Low 25.1-36.5 [facility] Comment on above: A hematocrit value g reater than 55% may lead to inaccurate results in coagulation testing. Patients having hematocrit values >55% require a special collection tube for coagulation studies. Please contact the laboratory at [phone] for redraw instructions. Alanine aminotransferase [En zymatic activity/volume] in Serum or PlasmaOrdered By: Bernardino Bhakta on 12-27-2023 ALT [Catalytic activity/Vol] 10 U/L Normal 7-[address] [facility] Comment on above: Performed By: #### H S TROP, CK, CMP, CBC #### [facility] [address] [place] [address] [place] Albumin [Mass/volume] in Ser um or Plasma by Bromocresol green (BCG) dye binding methoOrdered By: Bernardino Bhakta on 12-27-2023 Albumin BCG dye [Mass/Vol] 4.0 g/dL 3.5-5.[address] [facility] Alkaline phosphatase [Enzyma tic activity/volume] in Serum or PlasmaOrdered By: Bernardino Bhakta on 12-27-2023 ALP [Catalytic activity/Vol] 105 U/L High 34-[address] [facility] Comment on above: Performed By: #### H S TROP, CK, CMP, CBC #### [facility] [address] Arterial Blood Gason 024 ABG Base Excess -2.4 mmol/L Normal -3.0-3.0 [facility] Comment on above: Performed By: #### A BG ####Point of Care testing, ABG Frac Inspired O2 32 % Normal [facility] Comment on above: Performed By: #### A BG ####Point of Care testing, ABG Liter Flow 3 Normal [facility] Comment on above: Performed By: #### A BG ####Point of Care testing, ABG Oxygen Content 7.5 mmol/L Normal 6.6-9.7 [facility] Comment on above: Performed By: #### A BG ####Point of Care testing, ABG Oxygen Saturation 95.5 % Normal 95.0-100.0 [facility] Comment on above: Performed By: #### A BG ####Point of Care testing, ABG PCO2 46.7 mm[Hg] High 35.0-45.0 [facility] Comment on above: Performed By: #### A BG ####Point of Care testing, ABG PH 7.33 Low 7.35-7.45 [facility] Comment on above: Performed By: #### A BG ####Point of Care testing, ABG PO2 84.0 mm[Hg] Normal 80.0-100.0 [facility] Comment on above: Performed By: #### A BG ####Point of Care testing, Oxygen Device Nasal Cannula Normal [facility] Comment on above: Performed By: #### A BG ####Point of Care testing, Respiratory Critical Normal [facility] Comment on above: Result Comment: Crit ical Value called on: 12/27/2023 at 11:36 PERFORMED BY: [facility] [address] [place] [address] PATHOLOGIST TAKE OUT WAITER/WAITRESS JENNIFER ALAINZ M.D. Performed By: #### A BG ####Point of Care testing, VBG Draw Site Left Radial Normal [facility] Comment on above: Performed By: #### A BG ####Point of Care testing, Arterial Blood GasOrdered By : Bernardino Bhakta on 12-27-2023 CO2 [Moles/Vol] 25.3 mmol/L Normal 23.0-27.[address] [facility] Comment on above: Performed By: #### A BG ####Point of Care testing, HCO3 (Bld) [Moles/Vol] 23.8 mmol/L Normal 23.0-29.0 [facility] Comment on above: Performed By: #### A BG ####Point of Care testing, Aspartate aminotransferase [ Enzymatic activity/volume] in Serum or PlasmaOrdered By: Bernardino Bhakta on 12-27-2023 AST [Catalytic activity/Vol] 10 U/L Low 13-[address] [facility] Comment on above: Performed By: #### H S TROP, CK, CMP, CBC #### [address] Automated basophil %Ordered By: Bernardino Bhakta on 12-27-2023 Basophils/100 WBC (Bld) 0.6 % Normal . [facility] Comment on above: Performed By: #### H S TROP, CK, CMP, CBC #### [address] Automated basophil countOrde red By: Bernardino Bhakta on 12-27-2023 Basophils (Bld) [#/Vol] 0.1 10*3/uL Normal 0.0-0.[address] [facility] Comment on above: Result Comment: PERF ORMED BY: [place] [address] PATHOLOGIST TAKE OUT WAITER/WAITRESS JENNIFER ALANIZ M.D. Performed By: #### H S TROP, CK, CMP, CBC #### [address] Automated blood monocyte cou ntOrdered By: Bernardino Bhakta on 12-27-2023 Monocytes (Bld) [#/Vol] 1.3 10*3/uL High 0.0-0.[address] [facility] Comment on above: Performed By: #### H S TROP, CK, CMP, CBC #### [address] Automated eosinophil %Ordere d By: Bernardino Bhakta on 12-27-2023 Eosinophils/100 WBC (Bld) 0.6 % Normal . [facility] Comment on above: Performed By: #### H S TROP, CK, CMP, CBC #### [address] Automated eosinophil countOr dered By: Bernardino Bhakta on 12-27-2023 Eosinophils (Bld) [#/Vol] 0.1 10*3/uL Normal 0.0-0.[address] [facility] Comment on above: Performed By: #### H S TROP, CK, CMP, CBC #### [facility] [address] Automated monocyte %Ordered By: Bernardino Bhakta on 12-27-2023 Monocytes/100 WBC (Bld) 9.8 % Normal . [facility] Comment on above: Performed By: #### H S TROP, CK, CMP, CBC #### [facility] [address] Automated neutrophil %Ordere d By: Bernardino Bhakta on 12-27-2023 Neutrophils/100 WBC (Bld) 61.6 % Normal . [facility] Comment on above: Performed By: #### H S TROP, CK, CMP, CBC #### [facility] [address] BNP ser/plasOrdered By: Urbano Bhakta on 12-27-2023 Natriuretic peptide B (Bld) [Mass/Vol] 32.0 pg/mL Normal 5-[address] [facility] Comment on above: Result Comment: PERF ORMED BY: [facility] [address] [place] [address] PATHOLOGIST TAKE OUT WAITER/WAITRESS JENNIFER ALANIZ M.D. Performed By: #### B PLATER PRODUCTION ####[facility] Bacteria [Presence] in Urine sediment by Light microscopyOrdered By: Bernardino Bhakta on 12-27-2023 Bacteria LM Ql (Urine sed) 1+ [HPF] High None Seen [facility] Comment on above: Microscopic results may be affected due to low specimen volume. Bacterial blood cultureOrder ed By: Bernardino Bhakta on 12-27-2023 Bacteria identified Cx Nom (Bld) NO GROWTH [address] [facility] Bacteria identified Cx Nom (Bld) NO GROWTH [address] [facility] Bilirubin Test strip Ql (U)O rdered By: Bernardino Bhakta on 12-27-2023 Bilirubin Ql (U) Negative Negative [facility] Bilirubin.total [Mass/volume ] in Serum or PlasmaOrdered By: Bernardino Bhakta on 12-27-2023 Bilirubin [Mass/Vol] 0.3 mg/dL Normal 0.3-1.0 [facility] Comment on above: Performed By: #### H S TROP, CK, CMP, CBC #### [address] Blood Cultureon 12-27-2023 Bacteria identified Cx Nom (Bld) NO GROWTH 5 DAYS PERFORMED BY: [place] [address] PATHOLOGIST TAKE OUT WAITER/WAITRESS JENNIFER ALANIZ M.D. Normal [facility] Comment on above: Performed By: #### C EA #### [address] Bacteria identified Cx Nom (Bld) NO GROWTH 5 DAYS PERFORMED BY: [place] [address] PATHOLOGIST TAKE OUT WAITER/WAITRESS JENNIFER ALANIZ M.D. Normal [facility] Comment on above: Performed By: #### C EA #### [address] angio chest PE protocolon 12-27-2023 CT angio chest PE protocol [facility] [place] [address] [place] [address] CT Scan Report Signed Patient: Bhupendra Rubi MR#: [id number] 306 : 1950 Acct:[id number] Age/Sex: 73 / F ADM Date: 12/27/23 Loc: ER Room: Type: [facility] ER Attending Dr: Copies to: Bernardino [...] Adam Berger M.D.12/27/2023 12:14 PM Dictation Location: [place] [address] Transcribed By: [facility] 12/27/23 1214 Dictated By: Adam Berger DO 12/27/23 1210 Signed By: 12/27/23 1214 Normal [facility] Calcium [Mass/volume] in Ser um or PlasmaOrdered By: Bernardino Bhakta on 12-27-2023 Calcium [Mass/Vol] 9.3 mg/dL Normal 8.6-10.3 [facility] Comment on above: Performed By: #### H S TROP, CK, CMP, CBC #### [facility] [address] [place] [address] Carbon dioxide, total [Moles /volume] in Serum or PlasmaOrdered By: Bernardino Bhakta on 12-27-2023 CO2 [Moles/Vol] 26.9 mmol/L Normal 21.0-31.[address] [facility] Comment on above: Performed By: #### H S TROP, CK, CMP, CBC #### [facility] [address] [place] [address] [place] Chloride [Moles/volume] in S [place] or PlasmaOrdered By: Bernardino Bhakta on 12-27-2023 Chloride [Moles/Vol] 104 mmol/L Normal 98-107 [facility] Comment on above: Performed By: #### H S TROP, CK, CMP, CBC #### [address] Color of Urine by AutoOrdere d By: Bernardino Bhakta on 12-27-2023 Color (U) Yellow Normal Yellow [facility] Comment on above: Order Comment: Name Collection Type:: Clean-Voided Midstream Performed By: #### C EA #### [address] Complete Blood Count Auto Di ffon 12-27-2023 Mean Corpuscular HGB Conc 33.0 g/dL Normal 32.0-35.0 [facility] Comment on above: Performed By: #### H S TROP, CK, CMP, CBC #### [address] Monocytes/100 WBC (Bld) 19.53 % Normal 0.00-20.00 [facility] Comment on above: Performed By: #### H S TROP, CK, CMP, CBC #### [address] NRBC% 0.1 /100{WBC} Normal 0-0.5 [facility] Comment on above: Performed By: #### H S TROP, CK, CMP, CBC #### [address] Comprehensive Metabolic Pane perez 12-27-2023 Albumin [Mass/Vol] 4.0 g/dL Normal 3.5-5.7 [facility] Comment on above: Performed By: #### H S TROP, CK, CMP, CBC #### [address] Creatinine Clr Calc Pharmacy 50.59 Normal [facility] Comment on above: Result Comment: PERF ORMED BY: [place] [address] PATHOLOGIST TAKE OUT WAITER/WAITRESS JENNIFER ALANIZ M.D. Performed By: #### H S TROP, CK, CMP, CBC #### [address] GFR/1.73 sq M.predicted MDRD (S/P/Bld) [Vol rate/Area] mL/min/{1.73_m2} Normal [facility] Comment on above: Performed By: #### H S TROP, CK, CMP, CBC #### [address] Creatine kinase [Enzymatic a ctivity/volume] in Serum or PlasmaOrdered By: Bernardino Bhakta on 12-27-2023 CK [Catalytic activity/Vol] 41 U/L Normal 30-[address] [facility] Comment on above: Performed By: #### H S TROP, CK, CMP, CBC #### [address] Creatinine [Mass/volume] in Serum or PlasmaOrdered By: Bernardino Bhakta on 12-27-2023 Creatinine [Mass/Vol] 0.94 mg/dL Normal 0.60-1.20 [facility] Comment on above: Performed By: #### H S TROP, CK, CMP, CBC #### [address] D-Dimer High Sensitivityon 0 12-27-2023 D-Dimer High Sensitivity 480 ng/mL High 0-243 [facility] Comment on above: Result Comment: [...] coagulation studies. Please contact the laboratory at [phone] for redraw instructions. PERFORMED BY: [place] [address] PATHOLOGIST TAKE OUT WAITER/WAITRESS JENNIFER ALANIZ M.D. Performed By: #### D DIMER, LACTIC, PTT, PT ####[facility] [id number] [place] [address] [place] Dipstick and Microscopicon 0 12-27-2023 Bacteria,Urine 1+ High None Seen [facility] Comment on above: Order Comment: Name Collection Type:: Clean-Voided Midstream Result Comment: Micr oscopic results may be affected due to low specimen volume. PERFORMED BY: [place] [address] PATHOLOGIST TAKE OUT WAITER/WAITRESS JENNIFER ALANIZ M.D. Performed By: #### C EA #### [place] [address] [place] Bilirubin,Urine Negative Normal Negative [facility] Comment on above: Order Comment: Name Collection Type:: Clean-Voided Midstream Performed By: #### C EA #### [address] Glucose Ql (U) Normal Normal Normal [facility] Comment on above: Order Comment: Name Collection Type:: Clean-Voided Midstream Performed By: #### C EA #### [place] [address] [place] Nitrite,Urine Negative Normal Negative [facility] Comment on above: Order Comment: Name Collection Type:: Clean-Voided Midstream Performed By: #### C EA #### [place] [address] [place] Occult Blood,Urine Negative Normal Negative [facility] Comment on above: Order Comment: Name Collection Type:: Clean-Voided Midstream Result Comment: PERF ORMED BY: [place] [address] PATHOLOGIST TAKE OUT WAITER/WAITRESS JENNIFER ALANIZ M.D. Performed By: #### C EA #### [place] [address] [place] Protein,Urine Negative Normal Negative [facility] Comment on above: Order Comment: Name Collection Type:: Clean-Voided Midstream Performed By: #### C EA #### [place] [address] [place] RBC,Urine None Seen Normal 0-4 [facility] Comment on above: Order Comment: Name Collection Type:: Clean-Voided Midstream Result Comment: Micr oscopic results may be affected due to low specimen volume. Performed By: #### C EA #### [address] Specificy [place],Urine 1.043 High 1.00 1-1.03 0 [facility] Comment on above: Order Comment: Name Collection Type:: Clean-Voided Midstream Performed By: #### C EA #### [place] [address] [place] Squamous Epithelial Cell,Urine 5-9 High 0-2 [facility] Comment on above: Order Comment: Name Collection Type:: Clean-Voided Midstream Result Comment: Micr oscopic results may be affected due to low specimen volume. Performed By: #### C EA #### [place] [address] [place] Urobilinogen,Urine Normal Normal Normal [facility] Comment on above: Order Comment: Name Collection Type:: Clean-Voided Midstream Performed By: #### C EA #### [place] [address] [place] WBC,Urine 5-9 High 0-4 [facility] Comment on above: Order Comment: Name Collection Type:: Clean-Voided Midstream Result Comment: Micr oscopic results may be affected due to low specimen volume. Performed By: #### C EA #### [address] ECG 12 lead ECGon 12-27-2023 ECG 12 lead ECG [facility] [place] [address] [place] [address] Electrocardiograph Report Signed Patient: Bhupendra Rubi MR#: [id number] 306 : 1950 Acct:[id number] Age/Sex: 73 / F ADM Date: 12/27/23 Loc: ER Room: Type: [facility] ER Attending Dr: Ordering Provider: [...] By Bernardino Bhakta MD 12/11 Normal [facility] Epithelial cells.squamous [# /area] in Urine sediment by Microscopy high power fieldOrdered By: Bernardino Bhakta on 12-27-2023 Epithelial cells.squamous LM.HPF (Urine sed) [#/Area] 5-9 [HPF] High 0-[address] [facility] Comment on above: Microscopic results may be affected due to low specimen volume. Erythrocyte distribution wid th [Ratio] by Automated countOrdered By: Bernardino Bhakta on 12-27-2023 Erythrocyte distribution width (RBC) [Ratio] 15.6 % High 11.9-15.[address] [facility] Comment on above: Performed By: #### H S TROP, CK, CMP, CBC #### [facility] [address] [place] [address] Erythrocytes [#/area] in Uri ne sediment by Microscopy high power fieldOrdered By: Bernardino Bhakta on 12-27-2023 RBC LM.HPF (Urine sed) [#/Area] None seen [HPF] 0-[address] [facility] Comment on above: Microscopic results may be affected due to low specimen volume. Erythrocytes [#/volume] in B lood by Automated countOrdered By: Bernardino Bhakta on 12-27-2023 RBC (Bld) [#/Vol] 5.03 10*6/uL High 3.60-5.00 [facility] Comment on above: Performed By: #### H S TROP, CK, CMP, CBC #### [facility] [address] [place] [address] Fecal occult blood detection by immunochemistryOrdered By: Bernardino Bhakta on 12-27-2023 Hemoglobin.gastrointesti nal Ql (Stl) [facility] Fibrin D-dimer [Presence] in Platelet poor plasma by Latex agglutinationOrdered By: Bernardino Bhakta on 12-27-2023 Fibrin D-dimer LA Ql (PPP) 480 ng/mL High 0-[address] [facility] Comment on above: The reference range [...] coagulation studies. Please contact the laboratory at [phone] for redraw instructions. Glucose [Mass/volume] in Ser um or PlasmaOrdered By: Bernardino Bhakta on 12-27-2023 Glucose [Mass/Vol] 120 mg/dL High 70-100 [facility] Comment on above: ADA recommended refe rence rangeRandom Glucose Reference Range is dependent on time and content of last meal. Glucose of more than 200 mg/dL in a nonstressed, ambulatory subject supports the diagnosis of Diabetes Mellitus. Result Comment: [place] om Glucose Reference Range is dependent on time and content of last meal. Glucose of more than 200 mg/dL in a nonstressed, ambulatory subject supports the diagnosis of Diabetes Mellitus. ADA recommended reference range Performed By: #### H S TROP, CK, CMP, CBC #### [address] Glucose [Mass/volume] in Uri ne by Test stripOrdered By: Bernardino Bhakta on 12-27-2023 Glucose Test strip (U) [Mass/Vol] Normal mg/dL Normal [facility] Hematocrit [Volume Fraction] of Blood by Automated countOrdered By: Bernardino Bhakta on 12-27-2023 Hematocrit (Bld) [Volume fraction] 44.0 % Normal 34.0-46.[address] [facility] Comment on above: Performed By: #### H S TROP, CK, CMP, CBC #### [facility] [address] Hemoglobin Test strip Ql (U) Ordered By: Bernardino Bhakta on 12-27-2023 Hemoglobin Ql (U) Negative Negative [facility] Hemoglobin [Mass/volume] in BloodOrdered By: Bernardino Bhakta on 12-27-2023 Hemoglobin (Bld) [Mass/Vol] 14.5 g/dL Normal 11.8-15.[address] [facility] Comment on above: Performed By: #### H S TROP, CK, CMP, CBC #### [facility] [address] INR in Platelet poor plasma by Coagulation assayOrdered By: Bernardino Bhakta on 12-27-2023 INR Coag (PPP) [Relative time] 1.0 {INR} Normal [facility] Comment on above: INR Therapeutic Rang [...] By: #### D DIMER, LACTIC, PTT, PT ####[facility] [id number] Ketones [Presence] in Urine by Test stripOrdered By: Bernardino Bhakta on 12-27-2023 Ketones Ql (U) Negative Normal Negative [facility] Comment on above: Order Comment: Name Collection Type:: Clean-Voided Midstream Performed By: #### C EA #### [facility] [address] Lactate [Moles/volume] in Se rum or PlasmaOrdered By: Bernardino Bhakta on 12-27-2023 Lactate [Moles/Vol] 1.6 mmol/L Normal 0.5-2.2 [facility] Comment on above: Result Comment: PERF ORMED BY: [address] [place] [address] PATHOLOGIST TAKE OUT WAITER/WAITRESS JENNIFER ALANIZ M.D. Performed By: #### D DIMER, LACTIC, PTT, PT ####[facility] Leukocyte esterase [Presence ] in Urine by Test stripOrdered By: Bernardino Bhakta on 12-27-2023 Leukocyte esterase Test strip Ql (U) 4+ High Negative [facility] Comment on above: Order Comment: Name Collection Type:: Clean-Voided Midstream Performed By: #### C EA #### [address] Leukocytes [#/area] in Urine sediment by Microscopy high power fieldOrdered By: Bernardino Bhakta on 12-27-2023 WBC LM.HPF (Urine sed) [#/Area] 5-9 [HPF] High 0-[address] [facility] Comment on above: Microscopic results may be affected due to low specimen volume. Leukocytes [#/volume] correc pilar for nucleated erythrocytes in Blood by Automated counOrdered By: Bernardino Bhakta on 12-27-2023 WBC corrected for nucl RBC Auto (Bld) [#/Vol] 13.4 10*3/uL High 3.8-11.[address] [facility] Leukocytes [#/volume] in Blo od by Automated countOrdered By: Bernardino Bhakta on 12-27-2023 WBC (Bld) [#/Vol] 13.4 10*3/uL High 3.8-11.6 [facility] Comment on above: Performed By: #### H S TROP, CK, CMP, CBC #### [facility] [address] [place] [address] [place] Lymphocytes [#/volume] in Bl ood by Automated countOrdered By: Bernardino Bhakta on 12-27-2023 Lymphocytes (Bld) [#/Vol] 3.7 10*3/uL Normal 1.00-4.[address] [facility] Comment on above: Performed By: #### H S TROP, CK, CMP, CBC #### [facility] [address] Lymphocytes/100 leukocytes i n Blood by Automated countOrdered By: Bernardino Bhakta on 12-27-2023 Lymphocytes/100 WBC (Bld) 27.4 % Normal . [facility] Comment on above: Performed By: #### H S TROP, CK, CMP, CBC #### [facility] [address] [place] [address] MCH [Entitic mass] by Automa pilar countOrdered By: Bernardino Bhakta on 12-27-2023 MCH (RBC) [Entitic mass] 28.9 pg Normal 24.7-34.[address] [facility] Comment on above: Performed By: #### H S TROP, CK, CMP, CBC #### [facility] [address] [place] [address] MCHC Auto (RBC) [Mass/Vol]Or dered By: Bernardino Bhakta on 12-27-2023 MCHC (RBC) [Mass/Vol] 33.0 g/dL 32.0-35.0 [facility] MCV [Entitic volume] by Auto mated countOrdered By: Bernardino Bhakta on 12-27-2023 MCV (RBC) [Entitic vol] 87.6 fL Normal 80-100 [facility] Comment on above: Performed By: #### H S TROP, CK, CMP, CBC #### [facility] [address] [place] [address] Monocyte distribution width [Entitic volume] in Blood by AutomatedOrdered By: Bernardino Bhakta on 12-27-2023 Monocyte distribution width Auto (Bld) [Entitic vol] 19.53 % 0.00-20.[address] [facility] Neutrophils [#/volume] in Bl ood by Automated countOrdered By: Bernardino Bhakta on 12-27-2023 Neutrophils (Bld) [#/Vol] 8.3 10*3/uL High 1.8-7.[address] [facility] Comment on above: Performed By: #### H S TROP, CK, CMP, CBC #### [address] Nitrite Test strip Ql (U)Ord ered By: Bernardino Bhakta on 12-27-2023 Nitrite Ql (U) Negative Negative [facility] No Panel InformationOrdered By: Bernardino Bhakta on 12-27-2023 Arterial Blood Base Excess -2.4 mmol/L -3.0-3.[address] [facility] Arterial Blood Oxygen Content 7.5 mmol/L 6.6-9.[address] [facility] Arterial Blood Oxygen Saturation 95.5 % 95.0-100.[address] [facility] Arterial Blood Partial Pressure CO2 46.7 mm[Hg] High 35.0-45.[address] [facility] Arterial Blood Partial Pressure O2 84.0 mm[Hg] 80.0-100.[address] [facility] Arterial Blood pH 7.33 Low 7.35-7.45 [facility] Blood Gas Critical Value See comment [facility] Comment on above: Critical Value chaves d on: 12/27/2023 at 11:36 Blood Gas Liter Flow 3 L/min [facility] Blood Gas Sample Site Left radial [facility] FiO2 32 % [facility] Oxygen Delivery Device Nasal cannula [facility] Estimated GFR (CKD-EPI) > 60.0 mL/Min [facility] Creatinine Clearance (Chem 50.[address] [facility] Nucleated erythrocytes [Pres ence] in Blood by Automated countOrdered By: Bernardino Bhakta on 12-27-2023 Nucleated RBC Auto Ql (Bld) 0.1 /100{WBC} 0-0.[address] [facility] Partial Thromboplastin Timeo n 12-27-2023 aPTT Coag (Bld) [Time] 24.6 s Low 25.1-36.5 Th e [facility] Comment on above: Result Comment: A he matocrit value greater than 55% may lead to inaccurate results in coagulation testing. Patients having hematocrit values >55% require a special collection tube for coagulation studies. Please contact the laboratory at [phone] for redraw instructions. Performed By: #### D DIMER, LACTIC, PTT, PT ####[facility] [address] Platelet mean volume [Entiti c volume] in Blood by Automated countOrdered By: Bernardino Bhakta on 12-27-2023 Platelet mean volume (Bld) [Entitic vol] 8.3 fL Normal 6.3-10.[address] [facility] Comment on above: Performed By: #### H S TROP, CK, CMP, CBC #### [facility] [address] Platelets [#/volume] in Bloo d by Automated countOrdered By: Bernardino Bhakta on 12-27-2023 Platelets (Bld) [#/Vol] 399 10*3/uL Normal 150-[address] [facility] Comment on above: Performed By: #### H S TROP, CK, CMP, CBC #### [address] Potassium [Moles/volume] in Serum or PlasmaOrdered By: Bernardino Bhakta on 12-27-2023 Potassium [Moles/Vol] 3.7 mmol/L Normal 3.5-5.1 [facility] Comment on above: Performed By: #### H S TROP, CK, CMP, CBC #### [address] Protein Test strip (U) [Mass /Vol]Ordered By: Bernardino Bhakta on 12-27-2023 Protein (U) [Mass/Vol] Negative Negative [facility] Protein [Mass/volume] in Ser um or PlasmaOrdered By: Bernardino Bhakta on 12-27-2023 Protein [Mass/Vol] 6.8 g/dL Normal 6.4-8.9 [facility] Comment on above: Performed By: #### H S TROP, CK, CMP, CBC #### [address] Prothrombin time (PT)Ordered By: Bernardino Bhakta on 12-27-2023 PT Coag (PPP) [Time] 11.5 s Normal 9.0-12.9 [facility] Comment on above: A hematocrit value g reater than 55% may lead to inaccurate results in coagulation testing. Patients having hematocrit values >55% require a special collection tube for coagulation studies. Please contact the laboratory at [phone] for redraw instructions. Result Comment: A he matocrit value greater than 55% may lead to inaccurate results in coagulation testing. Patients having hematocrit values >55% require a special collection tube for coagulation studies. Please contact the laboratory at [phone] for redraw instructions. Performed By: #### D DIMER, LACTIC, PTT, PT ####[facility] Wis[address] Serum globulin measurement b y calculation (mass/volume)Ordered By: Bernardino Bhakta on 12-27-2023 Globulin (S) [Mass/Vol] 2.8 g/dL Normal [facility] Comment on above: Performed By: #### H S TROP, CK, CMP, CBC #### [address] Serum or plasma albumin/glob ulin mass ratioOrdered By: Bernardino Bhakta on 12-27-2023 Albumin/Globulin [Mass ratio] 1.4 {ratio} Normal [facility] Comment on above: Performed By: #### H S TROP, CK, CMP, CBC #### [address] Serum or plasma anion gap de terminationOrdered By: Bernardino Bhakta on 12-27-2023 Anion gap [Moles/Vol] 12.8 mmol/L Normal 6.0-15.0 [facility] Comment on above: Performed By: #### H S TROP, CK, CMP, CBC #### [address] Sodium [Moles/volume] in Ser um or PlasmaOrdered By: Bernardino Bhakta on 12-27-2023 Sodium [Moles/Vol] 140 mmol/L Normal 136-145 [facility] Comment on above: Performed By: #### H S TROP, CK, CMP, CBC #### [address] Specific gravity Test strip (U) [Rel density]Ordered By: Bernardino Bhakta on 12-27-2023 Specific gravity (U) [Rel density] 1.043 High 1.001-1.[address] [facility] Stool Occult Blood (Guaiac)o n 12-27-2023 Stool Occult Blood (Guaiac) Occult Blood Negative for Occult Blood by Guaiac Methodology ---- Reference range = Negative PERFORMED BY: [place] [address] PATHOLOGIST TAKE OUT WAITER/WAITRESS JENNIFER ALANIZ M.D. Normal [facility] Comment on above: Performed By: #### O B(GUAIAC) #### [address] Troponin I High Sensitivityo n 12-27-2023 Troponin I High Sensitivity < 2.3 Normal 0.0-15.0 [facility] Comment on above: Result Comment: PERF ORMED BY: [place] [address] PATHOLOGIST TAKE OUT WAITER/WAITRESS JENNIFER ALANIZ M.D. Performed By: #### H S TROP, CK, CMP, CBC #### [facility] [address] [place] [address] Troponin I.cardiac [Mass/vol ume] in Serum or Plasma by Detection limit <= 0.01 ng/Ordered By: Bernardino Bhakta on 12-27-2023 Troponin I.cardiac DL <= 0.01 ng/mL [Mass/Vol] < 2.3 pg/mL 0.0-15.[address] [facility] Type and Screenon 12-27-2023 ABO and Rh group Nom (Bld) Blood group A Rh(D) positive Normal [facility] Urea nitrogen [Mass/volume] in Serum or PlasmaOrdered By: Bernardino Bhakta on 12-27-2023 Urea nitrogen [Mass/Vol] 13 mg/dL Normal 7-[address] [facility] Comment on above: Performed By: #### H S TROP, CK, CMP, CBC #### [facility] [address] [place] [address] Urine Cultureon 12-27-2023 Bacteria identified Cx Nom (U) 50,000 colonies/ml mixed bacterial skin contaminants 2 Days PERFORMED BY: [place] [address] PATHOLOGIST TAKE OUT WAITER/WAITRESS JENNIFER ALANIZ M.D. Normal [facility] Comment on above: Performed By: #### C EA #### [address] Urine appearanceOrdered By: Bernardino Bhakta on 12-27-2023 Appearance (U) Cloudy Critically abnormal Clear [facility] Comment on above: Order Comment: Name Collection Type:: Clean-Voided Midstream Performed By: #### C EA #### [address] Urine culture routineOrdered By: Bernardino Bhakta on 12-27-2023 Bacteria identified Cx Nom (U) [address] [facility] Urobilinogen Test strip (U) [Mass/Vol]Ordered By: Bernardino Bhakta on 12-27-2023 Urobilinogen (U) [Mass/Vol] Normal mg/dL Normal [facility] XR chest 1V portableon 12-26 XR chest 1V portable [facility] [place] [address] XRay Report Signed Patient: Bhupendra Rubi MR#: [id number] : 1950 Acct:[id number] Age/Sex: 73 / F ADM Date: 12/27/23 Loc: ER Room: Type: [facility] ER Attending Dr: Copies to: Bernardino [...] Adam Berger M.D.12/27/2023 12:16 PM Dictation Location: [place] [address] Transcribed By: [facility] 12/27/23 1216 Dictated By: Adam Berger DO 12/27/23 1204 Signed By: 12/27/23 1216 Normal [facility] pH of Urine by Test stripOrd ered By: Bernardino Bhakta on 12-27-2023 pH (U) 6.0 [pH] Normal 5.0-9.[address] [facility] Comment on above: Order Comment: Name Collection Type:: Clean-Voided Midstream Performed By: #### C EA #### [facility] [address] Provider Letteron 06-23-2023 Provider Letter (Inserted Image. Es ble to display) June 23, 2023 BHUPENDRA RUBI [address] [place] [id number] : 1950 Dear Bhupendra, We are reaching out to inform you that Dr. Turner is now approved and credentialed with your insurance. Please call our office at your earliest convenience to schedule the EGD that was recommended at your last visit. Thank you for your prompt attention to this matter. Sincerely, [facility] [phone] Normal [facility] CHEMISTRYOrdered By: SYSTEM SYSTEM on 01-01-2023 Ferritin [...] 61 mL/min/1.73 m2 Normal >=59mL/min /1.73 m2 [facility] Chem S Globulin (S) [Mass/Vol] 3.5 g/dL [...] E9/L Normal 150. 0 - 500.0 E9/L [facility] HemeAutoSS RBC (Bld) [#/Vol] 5.1 E12/L Normal 4.3 - 5.9 E12/L [facility] HemeAutoSS WBC corrected for nucl RBC Auto (Bld) [#/Vol] 13.6 E9/L High 4.0 - 11.0 E9/L [facility] HemeAutoSS CBC AUTO DIFFon 11-11-2022 BASO # 0.1 103/ul Normal 0.0-0.1 [facility] Comment on above: Performed By: #### C BC #### [facility] [address] [place] [address] Dr. Anisa Gomez Basophils/100 WBC (Bld) 0.5 % Normal 0.2-2.0 [facility] Comment on above: Performed By: #### C BC #### [facility] [address] [place] [address] Dr. Anisa Gomez EO # 0.1 103/ul Normal 0.0-0.7 [facility] Comment on above: Performed By: #### C BC #### [facility] [address] [place] [address] Dr. Anisa Gomez Eosinophils/100 WBC (Bld) 0.8 % Critically low 0.9-7.0 [facility] Comment on above: Performed By: #### C BC #### [facility] [address] [place] [address] Dr. Anisa Gomez Erythrocyte distribution width (RBC) [Ratio] 15.2 % Critically high 11.0-15.0 [facility] Comment on above: Performed By: #### C BC #### [facility] [address] [place] [address] Dr. Anisa Gomez Hematocrit (Bld) [Volume fraction] 48.8 % Critically high 36.0-48.0 [facility] Comment on above: Performed By: #### C BC #### [facility] [address] [place] [address] Dr. Anisa Gomez Hemoglobin (Bld) [Mass/Vol] 15.8 g/dL Normal 12.0-16.0 [facility] Comment on above: Performed By: #### C BC #### [facility] [address] [place] [address] Dr. Anisa Gomez IG # 0.03 10e3/ul Normal 0.00-0.03 [facility] Comment on above: Performed By: #### C BC #### [facility] [address] [place] [address] Dr. Anisa Gomez IG % 0.2 % Normal 0.0-0.5 [facility] Comment on above: Performed By: #### C BC #### [facility] [address] [place] [address] Dr. Anisa Gomez LYMPH # 3.2 103/ul Normal 1.2-3.8 [facility] Comment on above: Performed By: #### C BC #### [facility] [address] [place] [address] Dr. Anisa Gomez Lymphocytes/100 WBC (Bld) 21.9 % Normal 20.5-60.0 [facility] Comment on above: Performed By: #### C BC #### [facility] [address] [place] [address] Dr. Anisa Gomez MANUAL DIFF REQ NO Normal [facility] Comment on above: Performed By: #### C BC #### [facility] [address] [place] [address] Dr. Anisa Gomez MCH (RBC) [Entitic mass] 29.9 pg Normal 26.7-34.0 [facility] Comment on above: Performed By: #### C BC #### [facility] [address] [place] [address] Dr. Anisa Gomez MCHC (RBC) [Mass/Vol] 32.4 g/dL Normal 29.9-35.2 [facility] Comment on above: Performed By: #### C BC #### [facility] [address] [place] [address] Dr. Anisa Gomez MCV (RBC) [Entitic vol] 92.2 fL Normal 81.0-99.0 [facility] Comment on above: Performed By: #### C BC #### [facility] [address] [place] [address] Dr. Anisa Gomez MONO # 1.2 103/ul Critically high 0.3-0.8 [facility] Comment on above: Performed By: #### C BC #### [facility] [address] [place] [address] Dr. Anisa Gomez Monocytes/100 WBC (Bld) 8.0 % Normal 1.7-12.0 [facility] Comment on above: Performed By: #### C BC #### [facility] [address] [place] [address] Dr. Anisa Gomez NEUT # 9.9 103/ul Critically high 1.4-6.5 [facility] Comment on above: Performed By: #### C BC #### [facility] [address] [place] [address] Dr. Anisa Gomez Neutrophils/100 WBC (Bld) 68.6 % Normal 43.0-75.0 [facility] Comment on above: Performed By: #### C BC #### [facility] [address] [place] [address] Dr. Anisa Gomez Platelet mean volume (Bld) [Entitic vol] 10.6 fL Normal 9.5-13.5 [facility] Comment on above: Performed By: #### C BC #### [facility] [address] [place] [address] Dr. Anisa Gomez PLT 336 103/ul Normal 150-450 [facility] Comment on above: Performed By: #### C BC #### [facility] [address] [place] [address] Dr. Anisa Gomez RBC 5.29 106/ul Normal 4.20-5.40 [facility] Comment on above: Performed By: #### C BC #### [facility] [address] [place], [place] [address] Dr. Anisa Gomez WBC 14.4 103/ul Critically high 4.0-11.0 [facility] Comment on above: Performed By: #### C BC #### [facility] [address] [place], [place] [address] Dr. Anisa Gomez CTA ABD/PELVIS WO W [...] LAYNE HO Date: 2022-11-11 18:26 Normal [facility] CTA CHEST WO W CONon 023 CTA [...] UNLU Date: 2022-11-11 17:48 Normal [facility] ER URINE PROFILEon 3 Bilirubin Ql (U) Negative Normal NEGATIVE [facility] Comment on above: Performed By: #### E RUR ####[facility] [address] [place] [address] Anisa Jason Clarity (U) CLEAR Normal CLEAR [facility] Comment on above: Performed By: #### E RUR ####[facility] [address] [place] [address]Dr. Anisa Gomez Color (U) LT. YELLOW Normal YELLOW [facility] Comment on above: Performed By: #### E RUR ####[facility] [address] [place], [place] [address]Dr. Anisa Gomez ERUAHD A micrscopic examina tion will be performed if indicated. Normal [facility] Comment on above: Performed By: #### E RUR ####[facility] [address] [place], [place] [address]Dr. Cherryann Jason Glucose Ql (U) Negative Normal NEGATIVE [facility] Comment on above: Performed By: #### E RUR ####[facility] [address] [place], [place] [address]Dr. Anisa Gomez Hemoglobin Ql (U) Negative Normal NEGATIVE [facility] Comment on above: Performed By: #### E RUR ####[facility] [address] [place], [place] [address]Dr. Anisa Gomez Ketones Ql (U) Negative Normal NEGATIVE [facility] Comment on above: Performed By: #### E RUR ####[facility] [address] [place], [place] [address]Dr. Anisa Gomez LEUKOCYTES Negative Normal NEGATIVE [facility] Comment on above: Performed By: #### E RUR ####[facility] [address] [place], [place] [address]Dr. Anisa Gomez Nitrite Ql (U) Negative Normal NEGATIVE [facility] Comment on above: Performed By: #### E RUR ####[facility] [address] [place], [place] [address]Dr. Anisa Gomez pH (U) 5.5 [pH] Normal 5-9 [facility] Comment on above: Performed By: #### E RUR ####[facility] [address] [place], [place] [address]Dr. Anisa Gomez SPEC GRAVITY >=1.030 Abnormal 1.005-<=1. 025 [facility] Comment on above: Performed By: #### E RUR ####[facility] [address] [place], [place] [address]Dr. Anisa Gomez UA PROTEIN Negative Normal NEGATIVE/ TRACE [facility] Comment on above: Performed By: #### E RUR ####[facility] [address] [place] [address]DrCathy Gomez UR MICRO IND NOT INDICATED Normal [facility] Comment on above: Performed By: #### E RUR ####[facility] [address] [place] [address]Dr. Anisa Gomez Urobilinogen Qn (U) 0.2 {Agustin'U}/dL Normal 0.2 - 1. 0 [facility] Comment on above: Performed By: #### E RUR ####[facility] [address] [place] [address]DrCathy Gomez LIPASEon 11-11-2022 Lipase [Catalytic activity/Vol] 100.0 U/L Normal 73.0-393.0 [facility] Comment on above: Performed By: #### JANET BOOTH #### [facility] [address] [place] [address] Dr. Anisa Gomez LIVER PROFILEon 11-11-2022 Albumin [Mass/Vol] 3.8 g/dL Normal 3.4-5.0 [facility] Comment on above: Performed By: #### JANET BOOTH #### [facility] [address] [place] [address] Dr. Anisa Goemz Albumin/Globulin [Mass ratio] 0.9 {ratio} Normal [facility] Comment on above: Performed By: #### Debbi OVALLE LIPA #### [facility] [address] [place] [address] [address] Anisa Gomez ALP [Catalytic activity/Vol] 107 U/L Normal 46-116 [facility] Comment on above: Performed By: #### JANET BOOTH #### [facility] [address] [place] [address] [address] Anisa Gomez ALT [Catalytic activity/Vol] 25 U/L Normal 14-59 [facility] Comment on above: Performed By: #### JANET BOOTH #### [facility] [address] [place] [address] [address] Anisa Gomez AST [Catalytic activity/Vol] 25 U/L Normal 15-37 [facility] Comment on above: Performed By: #### L IVER, LIPA #### [facility] [address] [place] [address] Dr. Anisa Gomez BILI, CONJUGATED 0.1 mg/dL Normal 0.0-0.2 [facility] Comment on above: Performed By: #### L IVER, LIPA #### [facility] [address] [place] [address] Dr. Anisa Gomez Bilirubin [Mass/Vol] 0.5 mg/dL Normal 0.2-1.0 [facility] Comment on above: Performed By: #### L IVKAMRAN, LIPA #### [facility] [address] [place] [address] Dr. Anisa Gomez Globulin (S) [Mass/Vol] 4.0 g/dL Normal [facility] Comment on above: Performed By: #### L YAMILE, LIPA #### [facility] [address] [place] [address] Dr. Anisa Gomez Protein [Mass/Vol] 7.8 g/dL Normal 6.4-8.2 [facility] Comment on above: Performed By: #### L YAMILE, LIPA #### [facility] [address] [place] [address] Dr. Anisa Gomez PROF CHEM 8 (BAS METB)on Anion gap [Moles/Vol] 13.2 mmol/L Normal [facility] Comment on above: Performed By: #### B MP #### [facility] [address] [place] [address] Dr. Anisa Gomez Calcium [Mass/Vol] 9.4 mg/dL Normal 8.5-10.1 [facility] Comment on above: Performed By: #### B MP #### [facility] [address] [place] [address] Dr. Anisa Gomez Chloride [Moles/Vol] 103 mmol/L Normal 98-107 [facility] Comment on above: Performed By: #### B MP #### [facility] [address] [place] [address] [address] Anisa Gomez CO2 [Moles/Vol] 29.3 mmol/L Normal 21.0-32.0 [facility] Comment on above: Performed By: #### B MP #### [facility] [address] [place] [address] [address] Anisa Gomez Creatinine [Mass/Vol] 1.02 mg/dL Normal 0.55-1.02 [facility] Comment on above: Performed By: #### B MP #### [facility] [address] [place] [address] [address] Anisa Gomez EGFR-AF BRUNEIAN 60 mL/min/1.73m2 Normal >=60 [facility] Comment on above: Performed By: #### B MP #### [facility] [address] [place] [address] [address] Anisa Gomez EGFR-NON AF BRUNEIAN 54 mL/min/1.73m2 Critically low >=60 [facility] Comment on above: Performed By: #### B MP #### [facility] [address] [place] [address] [address] Anisa Gomez Glucose [Mass/Vol] 102 mg/dL Normal 74-106 [facility] Comment on above: Performed By: #### B MP #### [facility] [address] [place] [address] [address] Anisa Gomez Potassium [Moles/Vol] 4.5 mmol/L Normal 3.5-5.1 [facility] Comment on above: Performed By: #### B MP #### [facility] [address] [place] [address] [address] Anisa Gomez Sodium [Moles/Vol] 141 mmol/L Normal 136-145 [facility] Comment on above: Performed By: #### B MP #### [facility] [address] [place] [address] [address] Anisa Gomez Urea nitrogen [Mass/Vol] 16.0 mg/dL Normal 7.0-18.0 [facility] Comment on above: Performed By: #### B MP #### [facility] [address] [place], [place] [address] Dr. Anisa Gomez Urea nitrogen/Creatinine [Mass ratio] 15.7 mg/mg Normal [facility] Comment on above: Performed By: #### B MP #### [facility] [address] [place], [place] [address] CHEST WO CONon [...] recommended for better evaluation. Normal [facility] HEMOGLOBINon 10-27-2022 Hemoglobin (Bld) [Mass/Vol] 14.5 g/dL Normal 12.0-16.0 [facility] Comment on above: Performed By: #### H GB ####[facility] [address] [place], [place] [address] LUNG CANCER SCREENINGon 0 [...] ROMEL ALONZO Date: 2022-07-24 17:20 Normal [facility] MG MAMM SCREEN 3D BRISSA CADon 07-09-2022 MG MAMM SCREEN 3D BRISSA CAD Patient: BHUPENDRA RUBI Exam Date: 07/09/2022 : 1950 Gender:F Ordering : SHAIKH Eddie HORAN . Admission #: [id number] Family : Order #: [id number] CLICK HERE TO VIEW EXAM RADIOLOGY REPORT [...] Treatments None Family Cancers None LOCATION: [facility] BREAST COMPOSITION: Heterogeneously dense,which may obscure small [...] M.D. on 07/25/2022 at 08:51 Normal [facility] CBC AUTO DIFFon 05-07-2022 BASO # 0.1 103/ul Normal 0.0-0.1 [facility] Comment on above: Performed By: #### C BC #### [facility] [address] [place] [address] Dr. Anisa Gomez Basophils/100 WBC (Bld) 0.7 % Normal 0.2-2.0 [facility] Comment on above: Performed By: #### C BC #### [facility] [address] [place] [address] [address] Anisa Gomez EO # 0.1 103/ul Normal 0.0-0.7 [facility] Comment on above: Performed By: #### C BC #### [facility] [address] [place] [address] [address] Anisa Gomez Eosinophils/100 WBC (Bld) 0.6 % Critically low 0.9-7.0 [facility] Comment on above: Performed By: #### C BC #### [facility] [address] [place] [address] Dr. Anisa Gomez Erythrocyte distribution width (RBC) [Ratio] 14.9 % Normal 11.0-15.0 [facility] Comment on above: Performed By: #### C BC #### [facility] [address] [place] [address] Dr. Anisa Gomez Hematocrit (Bld) [Volume fraction] 48.4 % Critically high 36.0-48.0 [facility] Comment on above: Performed By: #### C BC #### [facility] [address] [place] [address] Dr. Anisa Gomez Hemoglobin (Bld) [Mass/Vol] 15.6 g/dL Normal 12.0-16.0 [facility] Comment on above: Performed By: #### C BC #### [facility] [address] [place] [address] Dr. Anisa Gomez IG # 0.02 10e3/ul Normal 0.00-0.03 [facility] Comment on above: Performed By: #### C BC #### [facility] [address] [place] [address] Dr. Anisa Gomez IG % 0.2 % Normal 0.0-0.5 [facility] Comment on above: Performed By: #### C BC #### [facility] [address] [place] [address] Dr. Anisa Gomez LYMPH # 2.9 103/ul Normal 1.2-3.8 [facility] Comment on above: Performed By: #### C BC #### [facility] [address] [place] [address] Dr. Anisa Gomez Lymphocytes/100 WBC (Bld) 28.6 % Normal 20.5-60.0 [facility] Comment on above: Performed By: #### C BC #### [facility] [address] [place] [address] Dr. Anisa Gomez MANUAL DIFF REQ NO Normal [facility] Comment on above: Performed By: #### C BC #### [facility] [address] [place] [address] Dr. Anisa Gomez MCH (RBC) [Entitic mass] 29.2 pg Normal 26.7-34.0 [facility] Comment on above: Performed By: #### C BC #### [facility] [address] [place] [address] Dr. Anisa Gomez MCHC (RBC) [Mass/Vol] 32.2 g/dL Normal 29.9-35.2 [facility] Comment on above: Performed By: #### C BC #### [facility] [address] [place] [address] Dr. Anisa Gomez MCV (RBC) [Entitic vol] 90.5 fL Normal 81.0-99.0 [facility] Comment on above: Performed By: #### C BC #### [facility] [address] [place] [address] Dr. Anisa Gomez MONO # 1.0 103/ul Critically high 0.3-0.8 [facility] Comment on above: Performed By: #### C BC #### [facility] [address] [place] [address] Dr. Anisa Gomez Monocytes/100 WBC (Bld) 9.5 % Normal 1.7-12.0 [facility] Comment on above: Performed By: #### C BC #### [facility] [address] [place] [address] Dr. Anisa Gomez NEUT # 6.2 103/ul Normal 1.4-6.5 [facility] Comment on above: Performed By: #### C BC #### [facility] [address] [place] [address] Dr. Anisa Gomez Neutrophils/100 WBC (Bld) 60.4 % Normal 43.0-75.0 [facility] Comment on above: Performed By: #### C BC #### [facility] [address] [place] [address] Dr. Anisa Gomez Platelet mean volume (Bld) [Entitic vol] 10.1 fL Normal 9.5-13.5 [facility] Comment on above: Performed By: #### C BC #### [facility] [address] [address] [address] Anisa Gomez PLT 403 103/ul Normal 150-450 [facility] Comment on above: Performed By: #### C BC #### [facility] [address] [address] [address] Anisa Gomez RBC 5.35 106/ul Normal 4.20-5.40 [facility] Comment on above: Performed By: #### C BC #### [facility] [address] [address] [address] Anisa Gomez WBC 10.2 103/ul Normal 4.0-11.0 [facility] Comment on above: Performed By: #### C BC #### [facility] [address] [address] [address] Anisa Gomez LIPID PROFILEon 05-07-2022 CHOL-HDL RATIO NORM SEE BELOW Normal [facility] Comment on above: Result Comment: 3.3 - 4.4 LOW RISK 4.4 - 7.1 AVERAGE RISK 7.1 - 11.0 MODERATE RISK >11.0 HIGH RISK Performed By: #### L IPID, CMP ####[facility] [address] [id number]. Anisa Gomez Cholesterol [Mass/Vol] 242 mg/dL Critically high <=200 [facility] Comment on above: Performed By: #### L IPID, CMP ####[facility] [address] [id number]. Anisa Gomez Cholesterol in HDL [Mass/Vol] 49 mg/dL Normal 40-60 [facility] Comment on above: Performed By: #### L IPID, CMP ####[facility] [address] [id number] Gomez Cholesterol in LDL [Mass/Vol] 148.4 mg/dL Normal [facility] Comment on above: Performed By: #### L IPID, CMP ####[facility] [address] [id number] Gomez Cholesterol.total/Choles terol in HDL [Mass ratio] 4.9 {ratio} Normal [facility] Comment on above: Performed By: #### L IPID, CMP ####[facility] [id number] [address]Dr. Anisa Gomez HDL NORMAL > or = 60 mg/dl - LO W CARDIOVASCULAR RISK <40 mg/dl - HIGH CARDIOVASCULAR RISK Normal [facility] Comment on above: Performed By: #### L IPID, CMP ####[facility] [address] [address]Dr. Anisa Gomez LDL CALC NORMAL SEE BELOW Normal [facility] Comment on above: Result Comment: <100 mg/dl OPTIMAL 100 - 129 mg/dl NEAR OR ABOVE OPTIMAL 130 - 159 mg/dl BORDERLINE HIGH 160 - 189 mg/dl HIGH >190 mg/dl VERY HIGH Performed By: #### L IPID, CMP ####[facility] [address] [place], [place] [address]Dr. Anisa Gomez Triglyceride [Mass/Vol] 223 mg/dL Critically high <=150 [facility] Comment on above: Performed By: #### L IPID, CMP ####[facility] [address] [address]Dr. Anisa Gomez VLDL CALC 44.6 mg/dL Normal [facility] Comment on above: Performed By: #### L IPID, CMP ####[facility] [address] [address]Dr. Anisa Gomez PROF 14(COMP METB)on 022 Albumin [Mass/Vol] 3.6 g/dL Normal 3.4-5.0 [facility] Comment on above: Performed By: #### L IPID, CMP ####[facility] [address] [address]Dr. Anisa Goemz Albumin/Globulin [Mass ratio] 1.0 {ratio} Normal [facility] Comment on above: Performed By: #### L IPID, CMP ####[facility] [address] [address]Dr. Anisa Gomez ALP [Catalytic activity/Vol] 95 U/L Normal 46-116 [facility] Comment on above: Performed By: #### L IPID, CMP ####[facility] [address] [address]Dr. Anisa Gomez ALT [Catalytic activity/Vol] 21 U/L Normal 14-59 [facility] Comment on above: Performed By: #### L IPID, CMP ####[facility] [address] [place], [place] [address]Dr. Anisa Gomez Anion gap [Moles/Vol] 6.3 mmol/L Normal [facility] Comment on above: Performed By: #### L IPID, CMP ####[facility] [address] [place], [place] [address]Dr. Anisa Gomez AST [Catalytic activity/Vol] 15 U/L Normal 15-37 [facility] Comment on above: Performed By: #### L IPID, CMP ####[facility] [address] [place], [place] [address]Dr. Anisa Gomez Bilirubin [Mass/Vol] 0.5 mg/dL Normal 0.2-1.0 [facility] Comment on above: Performed By: #### L IPID, CMP ####[facility] [address] [place], [place] [address]Dr. Anisa Gomez Calcium [Mass/Vol] 9.1 mg/dL Normal 8.5-10.1 [facility] Comment on above: Performed By: #### L IPID, CMP ####[facility] [address] [place], [place] [address]Dr. Anisa Gomez Chloride [Moles/Vol] 104 mmol/L Normal 98-107 [facility] Comment on above: Performed By: #### L IPID, CMP ####[facility] [address] [place], [place] [address]Dr. Anisa Gomez CO2 [Moles/Vol] 33.4 mmol/L Critically high 21.0-32.0 [facility] Comment on above: Performed By: #### L IPID, CMP ####[facility] [address] [place], [place] [address]Dr. Anisa Gomez Creatinine [Mass/Vol] 0.90 mg/dL Normal 0.55-1.02 [facility] Comment on above: Performed By: #### L IPID, CMP ####[facility] [address] [address]Dr. Anisa Gomez EGFR-AF BRUNEIAN >60 Normal >=60 [facility] Comment on above: Performed By: #### L IPID, CMP ####[facility] [address] [address]Dr. Anisa Gomez EGFR-NON AF BRUNEIAN >60 Normal >=60 [facility] Comment on above: Performed By: #### L IPID, CMP ####[facility] [address] [place], [place] [address]Dr. Anisa Jason Globulin (S) [Mass/Vol] 3.7 g/dL Normal [facility] Comment on above: Performed By: #### L IPID, CMP ####[facility] [address] [place], [place] [address]Dr. Anisa Jason Glucose [Mass/Vol] 67 mg/dL Critically low 74-106 [facility] Comment on above: Performed By: #### L IPID, CMP ####[facility] [address] [place], [place] [address]Dr. Anisa Gomez Potassium [Moles/Vol] 3.7 mmol/L Normal 3.5-5.1 [facility] Comment on above: Performed By: #### L IPID, CMP ####[facility] [address] [place], [place] [address]Dr. Anisa Jason Protein [Mass/Vol] 7.3 g/dL Normal 6.4-8.2 [facility] Comment on above: Performed By: #### L IPID, CMP ####[facility] [address] [place], [place] [address]Dr. Anisa Gomez Sodium [Moles/Vol] 140 mmol/L Normal 136-145 [facility] Comment on above: Performed By: #### L IPID, CMP ####[facility] [address] [place], [place] [address]Dr. Anisa Gomez Urea nitrogen [Mass/Vol] 13.0 mg/dL Normal 7.0-18.0 [facility] Comment on above: Performed By: #### L IPID, CMP ####[facility] [address] [address]Dr. Anisa Gomez Urea nitrogen/Creatinine [Mass ratio] 14.4 mg/mg Normal [facility] Comment on above: Performed By: #### L IPID, CMP ####[facility] [address] [address]Dr. Anisa Gomez UA RANDOM W/MICROSCOPICon BACTERIA NONE SEEN Normal NONE SEEN [facility] Comment on above: Performed By: #### U AMIC #### [facility] [address] [place] [address] Dr. Anisa Gomez Bilirubin Ql (U) Negative Normal NEGATIVE [facility] Comment on above: Performed By: #### U AMIC #### [facility] [address] [place] [address] Dr. Anisa Gomez CAST NONE SEEN Normal NONE SEEN [facility] Comment on above: Performed By: #### U AMIC #### [facility] [address] [address] [address] Anisa Gomez Clarity (U) CLEAR Normal CLEAR [facility] Comment on above: Performed By: #### U AMIC #### [facility] [address] [address] [address] Anisa Gomez Color (U) YELLOW Normal YELLOW [facility] Comment on above: Performed By: #### U AMIC #### [facility] [address] [address] [address] Anisa Gomez Crystals LM Nom (Urine sed) NONE SEEN Normal NONE SEEN [facility] Comment on above: Performed By: #### U AMIC #### [facility] [address] [place] [address] Dr. Anisa Gomez Epithelial cells LM Ql (Urine sed) RARE Normal NONE SEEN /RARE [facility] Comment on above: Performed By: #### U AMIC #### [facility] [address] [address] [address] Anisa Gomez Glucose Ql (U) Negative Normal NEGATIVE [facility] Comment on above: Performed By: #### U AMIC #### [facility] [address] [address] [address] Anisa Gomez Hemoglobin Ql (U) Negative Normal NEGATIVE [facility] Comment on above: Performed By: #### U AMIC #### [facility] [address] [address] [address] Anisa Gomez Ketones Ql (U) Negative Normal NEGATIVE [facility] Comment on above: Performed By: #### U AMIC #### [facility] [address] [place] [address] Dr. Anisa Gomez LEUKOCYTES Negative Normal NEGATIVE [facility] Comment on above: Performed By: #### U AMIC #### [facility] [address] [place] [address] Dr. Anisa Gomez MUCOUS NONE SEEN Normal NONE SEEN [facility] Comment on above: Performed By: #### U AMIC #### [facility] [address] [place] [address] Dr. Anisa Gomez Nitrite Ql (U) Negative Normal NEGATIVE [facility] Comment on above: Performed By: #### U AMIC #### [facility] [address] [place] [address] Dr. Anisa Gomez pH (U) 7.0 [pH] Normal 5-9 [facility] Comment on above: Performed By: #### U AMIC #### [facility] [address] [place] [address] Dr. Anisa Gomez RBC 0-2 Normal 0-2 [facility] Comment on above: Performed By: #### U AMIC #### [facility] [address] [place] [address] Dr. Anisa Gomez SPEC GRAVITY 1.010 Normal 1.005-<=1. 025 [facility] Comment on above: Performed By: #### U AMIC #### [facility] [address] [place] [address] Dr. Anisa Gomez UA PROTEIN Negative Normal NEGATIVE/ TRACE [facility] Comment on above: Performed By: #### U AMIC #### [facility] [address] [address] [address] Anisa Gomez Urobilinogen Qn (U) 0.2 {Agustin'U}/dL Normal 0.2 - 1. 0 [facility] Comment on above: Performed By: #### U AMIC #### [facility] [address] [address] [address] Anisa Gomez WBC 0-2 Abnormal NONE SEEN [facility] Comment on above: Performed By: #### U AMIC #### [facility] [address] [address] [address] Anisa Gomez Vital Signs Date Time Vital Sign Value Performing Clinician Facility 12-21-2024 16:27-0400 Body mass index (BMI) [Ratio] 27 kg/m2 Wendy Burden [employer] Work Phone: [facility] 12-21-2024 16:27-0400 Body temperature 98.29 [degF] Wendy Burden [employer] Work Phone: [facility] 12-21-2024 16:27-0400 Body weight 66.95 kg Wendy Burden [employer] Work Phone: [facility] 12-21-2024 16:27-0400 Diastolic blood pressure 66 mm[Hg] Wendy Burden [employer] Work Phone: [facility] 12-21-2024 16:27-0400 Heart rate 104 /min Wendy Jenise [employer] Work Phone: [facility] 12-21-2024 16:27-0400 Respiratory rate 18 /min Wendy Burden [employer] Work Phone: [facility] 12-21-2024 16:27-0400 SaO2% (BldA) [Mass fraction] 93 % Wendy Burden [employer] Work Phone: [facility] 12-21-2024 16:27-0400 Systolic blood pressure 98 mm[Hg] Wendy Burden [employer] Work Phone: [facility] 10-27-2024 10:38-0400 Body mass index (BMI) [Ratio] 28.06 kg/m2 Wendy Burden [employer] Work Phone: [facility] 10-27-2024 10:38-0400 Body temperature 98.49 [degF] Wendy Burden [employer] Work Phone: [facility] 10-27-2024 10:38-0400 Body weight 69.58 kg Wendy Burden [employer] Work Phone: [facility] 10-27-2024 10:38-0400 Diastolic blood pressure 78 mm[Hg] Wendy Burden [employer] Work Phone: [facility] 10-27-2024 10:38-0400 Heart rate 96 /min Wendy Burden [employer] Work Phone: [facility] 10-27-2024 10:38-0400 Respiratory rate 20 /min Wendy Burden [employer] Work Phone: [facility] 10-27-2024 10:38-0400 SaO2% (BldA) [Mass fraction] 89 % Wendy Burden [employer] Work Phone: [facility] 10-27-2024 10:38-0400 Systolic blood pressure 112 mm[Hg] Wendy Burden [employer] Work Phone: [facility] 09-26-2024 10:21-0400 Body height 157.5 cm Kianna Lowe PA Work Phone: [facility] 09-26-2024 10:21-0400 Body mass index (BMI) [Ratio] 27.44 kg/m2 Kianna Lowe PA Work Phone: [facility] 09-26-2024 10:21-0400 Body weight 68.04 kg Kianna Lowe PA Work Phone: [facility] 09-26-2024 10:21-0400 Diastolic blood pressure 84 mm[Hg] Kianna Lowe PA Work Phone: [facility] 09-26-2024 10:21-0400 Systolic blood pressure 138 mm[Hg] Kianna ORDOÑEZ Work Phone: [facility] 08-02-2024 11:57-0500 Body height 157.5 cm Romel Sampson MD Work Phone: [facility] 08-02-2024 11:57-0500 Body mass index (BMI) [Ratio] 27.8 kg/m2 Romel Sampson MD Work Phone: [facility] 08-02-2024 11:57-0500 Body weight 68.95 kg Romel Sampson MD Work Phone: [facility] 08-02-2024 11:57-0500 Diastolic blood pressure 84 mm[Hg] Romel Sampson MD Work Phone: [facility] 08-02-2024 11:57-0500 Systolic blood pressure 118 mm[Hg] Romel Sampson MD Work Phone: [facility] 08-02-2024 10:51-0500 Body height 157.5 cm Chris Singh [employer] Work Phone: [facility] 08-02-2024 10:51-0500 Body mass index (BMI) [Ratio] 28.53 kg/m2 Chris Singh [employer] Work Phone: [facility] 08-02-2024 10:51-0500 Body temperature 97.11 [degF] Chris Singh [employer] Work Phone: [facility] 08-02-2024 10:51-0500 Body weight 70.76 kg Chris Singh [employer] Work Phone: [facility] 08-02-2024 10:51-0500 Diastolic blood pressure 76 mm[Hg] Chris Isngh [employer] Work Phone: [facility] 08-02-2024 10:51-0500 Heart rate 107 /min Chris Craigzpatrick [employer] Work Phone: [facility] 08-02-2024 10:51-0500 Respiratory rate 16 /min Chris Singh [employer] Work Phone: [facility] 08-02-2024 10:51-0500 SaO2% (BldA) [Mass fraction] 95 % Chris Singh [employer] Work Phone: [facility] 08-02-2024 10:51-0500 Systolic blood pressure 128 mm[Hg] Chris Singh [employer] Work Phone: [facility] 07-28-2024 14:17-0500 Body height 159.51 cm Shaikh Aung [employer] Work Phone: [facility] 07-28-2024 14:17-0500 Body mass index (BMI) [Ratio] 27.2 kg/m2 Shaikh Aung [employer]AR[employer] Work Phone: [facility] 07-28-2024 14:17-0500 Body temperature 97.1 [degF] Shaikh Aung FAR[employer]AN Work Phone: [facility] 07-28-2024 14:17-0500 Body weight 69.39 kg Shaikh Aung FARFAN Work Phone: [facility] 07-28-2024 14:17-0500 Diastolic blood pressure 83 mm[Hg] Shaikh Aung FARFAN Work Phone: [facility] 07-28-2024 14:17-0500 Heart rate 97 /min Shaikh Aung FARFAN Work Phone: [facility] 07-28-2024 14:17-0500 Respiratory rate 18 /min Shaikh Aung FARFAN Work Phone: [facility] 07-28-2024 14:17-0500 SaO2% (BldA) [Mass fraction] 93 % Shaikh Aung FAR[employer]AN Work Phone: [facility] 07-28-2024 14:17-0500 Systolic blood pressure 143 mm[Hg] Shaikh Aung FAR[employer]AN Work Phone: [facility] 05-23-2024 10:17-0500 Body height 157.5 cm Chris Singh [employer] Work Phone: [facility] 05-23-2024 10:17-0500 Body mass index (BMI) [Ratio] 28.9 kg/m2 Chris Singh [employer] Work Phone: [facility] 05-23-2024 10:17-0500 Body temperature 96.8 [degF] Chris Singh [employer] Work Phone: [facility] 05-23-2024 10:17-0500 Body weight 71.67 kg Chris Singh [employer] Work Phone: [facility] 05-23-2024 10:17-0500 Diastolic blood pressure 84 mm[Hg] Chris Singh [employer] Work Phone: [facility] 05-23-2024 10:17-0500 Heart rate 78 /min Chris Singh [employer] Work Phone: [facility] 05-23-2024 10:17-0500 Respiratory rate 16 /min Chris Singh [employer] Work Phone: [facility] 05-23-2024 10:17-0500 SaO2% (BldA) [Mass fraction] 90 % Chris Singh [employer] Work Phone: [facility] 05-23-2024 10:17-0500 Systolic blood pressure 128 mm[Hg] Chris Singh [employer] Work Phone: [facility] 05-11-2024 14:25-0400 Body height 157.48 cm MD Shaikh Horan Work Phone: [facility] 05-11-2024 14:25-0400 Body mass index (BMI) [Ratio] 28.5 kg/m2 MD Shaikh Horan Work Phone: [facility] 05-11-2024 14:25-0400 Body temperature 97.8 [degF] MD Shaikh Horan Work Phone: [facility] 05-11-2024 14:25-0400 Body weight 70.76 kg MD Shaikh Horan Work Phone: [facility] 05-11-2024 14:25-0400 Diastolic blood pressure 78 mm[Hg] MD Shaikh Horan Work Phone: [facility] 05-11-2024 14:25-0400 Heart rate 89 /min MD Shaikh Horan Work Phone: [facility] 05-11-2024 14:25-0400 Respiratory rate 16 /min MD Shaikh Horan Work Phone: [facility] 05-11-2024 14:25-0400 SaO2% (BldA) [Mass fraction] 95 % MD Shaikh Horan Work Phone: [facility] 05-11-2024 14:25-0400 Systolic blood pressure 134 mm[Hg] MD Shaikh Horan Work Phone: [facility] 05-10-2024 14:01-0400 Body height 157.5 cm Javier Villanueva DO Work Phone: [facility] 05-10-2024 14:01-0400 Body mass index (BMI) [Ratio] 27.62 kg/m2 Javier Villanueva DO Work Phone: [facility] 05-10-2024 14:010400 Body weight 68.49 kg Javier Villanueva DO Work Phone: [facility] 05-10-2024 14:01-0400 Diastolic blood pressure 90 mm[Hg] Javier Villanueva DO Work Phone: [facility] 05-10-2024 14:01-0400 Systolic blood pressure 130 mm[Hg] Javier Villanueva DO Work Phone: [facility] 03-25-2024 11:45-0400 Diastolic blood pressure 90 mm[Hg] MD Shaikh Horan Work Phone: [facility] 03-25-2024 11:45-0400 Heart rate 85 /min MD Shaikh Horan Work Phone: [facility] 03-25-2024 11:45-0400 Respiratory rate 20 /min MD Shaikh Horan Work Phone: [facility] 03-25-2024 11:45-0400 SaO2% (BldA) [Mass fraction] 95 % MD Shaikh Horan Work Phone: [facility] 03-25-2024 11:45-0400 Systolic blood pressure 152 mm[Hg] MD Shaikh Horan Work Phone: [facility] 03-25-2024 10:06-0400 Body height 157.48 cm MD Shaikh Horan Work Phone: [facility] 03-25-2024 10:06-0400 Body weight 65.77 kg MD Shaikh Horan Work Phone: [facility] 03-24-2024 11:14-0400 Body height 157.5 cm Chris Singh [employer] Work Phone: [facility] 03-24-2024 11:14-0400 Body mass index (BMI) [Ratio] 27.25 kg/m2 Chris Singh [employer] Work Phone: [facility] 03-24-2024 11:14-0400 Body temperature 98.91 [degF] Chris Singh [employer] Work Phone: [facility] 03-24-2024 11:14-0400 Body weight 67.59 kg Chris Buchananpatrick [employer] Work Phone: [facility] 03-24-2024 11:14-0400 Diastolic blood pressure 80 mm[Hg] Chris Signh [employer] Work Phone: [facility] 03-24-2024 11:14-0400 Heart rate 96 /min Chris Singh [employer] Work Phone: [facility] Comment on above: 93% O2 03-24-2024 11:14-0400 Systolic blood pressure 116 mm[Hg] Chris Singh [employer] Work Phone: [facility] 12-30-2023 09:35-0400 Body height 157.48 cm MD Shaikh Horan Work Phone: [facility] 12-30-2023 09:35-0400 Body mass index (BMI) [Ratio] 27.4 kg/m2 MD Shaikh Horan Work Phone: [facility] 12-30-2023 09:35-0400 Body temperature 97.3 [degF] MD Shaikh Horan Work Phone: [facility] 12-30-2023 09:35-0400 Body weight 68.03 kg MD Shaikh Horan Work Phone: [facility] 12-30-2023 09:35-0400 Diastolic blood pressure 50 mm[Hg] MD Shaikh Horan Work Phone: [facility] 12-30-2023 09:35-0400 Heart rate 106 /min MD Shaikh Horan Work Phone: [facility] 12-30-2023 09:35-0400 Respiratory rate 18 /min MD Shaikh Horan Work Phone: [facility] 12-30-2023 09:35-0400 SaO2% (BldA) [Mass fraction] 85 % MD Shaikh Horan Work Phone: [facility] 12-30-2023 09:35-0400 Systolic blood pressure 76 mm[Hg] MD Shaikh Horan Work Phone: [facility] 12-27-2023 15:46-0400 Diastolic blood pressure 57 mm[Hg] MD Shaikh Hoarn Work Phone: [facility] 12-27-2023 15:46-0400 Heart rate 65 /min MD Shaikh Horan Work Phone: [facility] 12-27-2023 15:46-0400 Respiratory rate 20 /min MD Shaikh Horan Work Phone: [facility] 12-27-2023 15:46-0400 Systolic blood pressure 112 mm[Hg] MD Shaikh Horan Work Phone: [facility] 12-27-2023 14:59-0400 Inhaled oxygen flow rate 2 L/min MD Shaikh Horan Work Phone: [facility] 12-27-2023 14:59-0400 SaO2% (BldA) [Mass fraction] 92 % MD Shaikh Horan Work Phone: [facility] 12-27-2023 11:20-0400 Body temperature 97.7 [degF] MD Shaikh Horan Work Phone: [facility] 12-27-2023 10:48-0400 Body height 157.48 cm MD Shaikh Horan Work Phone: [facility] 12-27-2023 10:48-0400 Body weight 70.8 kg MD Shaikh Horan Work Phone: [facility] 03-25-2023 10:00-0400 Body height 157.48 cm Nigel Valladares Other [employer] Other 03-25-2023 10:00-0400 Body mass index (BMI) [Ratio] 27.43 kg/m2 Nigel Valladares Other [employer] Other 03-25-2023 10:00-0400 Body temperature 97.2 [degF] Nigel Valladares Other [employer] Other 03-25-2023 10:00-0400 Body weight 68.04 kg Nigel Valladares Other [employer] Other 03-25-2023 10:00-0400 Diastolic blood pressure 82 mm[Hg] Nigel Valladares Other [employer] Other 03-25-2023 10:00-0400 SaO2% (BldA) [Mass fraction] 91 % Nigel Valladares Other [employer] Other 03-25-2023 10:00-0400 Systolic blood pressure 158 mm[Hg] Nigel Valladares Other [employer] Other 02-09-2023 11:00-0400 Body height 157.48 cm Cherelle Bautista Other [employer] Other 02-09-2023 11:00-0400 Body mass index (BMI) [Ratio] 27.43 kg/m2 Cherelle Bautista Other [employer] Other 02-09-2023 11:00-0400 Body temperature 97.6 [degF] Cherelle Bautista Other [employer] Other 02-09-2023 11:00-0400 Body weight 68.04 kg Cherelle Bautista Other [employer] Other 02-09-2023 11:00-0400 Diastolic blood pressure 74 mm[Hg] Cherelle Singhingridjaciel Other [employer] Other 02-09-2023 11:00-0400 SaO2% (BldA) [Mass fraction] 92 % Cherelle Bautista Other [employer] Other 02-09-2023 11:00-0400 Systolic blood pressure 122 mm[Hg] Cherelle Bautista Other [employer] Other 12-24-2022 10:00-0400 Diastolic blood pressure 86 mm[Hg] Brigette Esparzametz [facility] 12-24-2022 10:00-0400 Mean blood pressure 106 mm[Hg] Brigette Lianet [facility] 12-24-2022 10:00-0400 Systolic blood pressure 146 mm[Hg] Brigette Lianet [facility] 12-24-2022 09:57-0400 Blood Pressure Location Brigette Lianet [facility] 12-24-2022 09:57-0400 Body temperature 97.52 [degF] Brigette Lianet [facility] 12-24-2022 09:57-0400 Diastolic blood pressure 82 mm[Hg] Brigette Lianet [facility] 12-24-2022 09:57-0400 Heart rate 86 /min Brigette Martini [facility] 12-24-2022 09:57-0400 Systolic blood pressure 150 mm[Hg] Brigette Martini [facility] Encounters Encounter Date Encounter Type Care Provider Facility Start: 12-22-2024 End: 12-22-2024 Clinisync Result Encounter Wendy Jenise [employer] Work Phone: [facility] Unsolicited Start: 12-22-2024 End: 12-23-2024 Clinisync Result Encounter Wendy Jenise [employer] Work Phone: [facility] Unsolicited Start: 12-22-2024 End: 12-23-2024 External Result Encounter Wendy Jenise [employer] Work Phone: [facility] Unsolicited Start: 12-22-2024 End: 12-22-2024 ambulatory Wendy Burden Facility:[facility] Start: 12-21-2024 End: 12-21-2024 Office outpatient visit 25 minutes Wendy Burden [employer] Work Phone: [facility] Comment on above: Gastroesophageal ref lux disease, unspecified whether esophagitis present (Primary Dx); Infrarenal abdominal aortic aneurysm (AAA) without rupture (CMS/HCC); Chronic abdominal pain; Dysuria; Epigastric pain; Tobacco dependency Start: 12-21-2024 End: 12-21-2024 ambulatory WENDY BURDEN Not Available Start: 12-21-2024 End: 12-21-2024 Bamboo flowsheet Wendy Burden [employer] Work Phone: [facility] Start: 12-21-2024 End: 12-21-2024 Bamboo flowsheet Wendy Burden [employer] Work Phone: [facility] Start: 12-19-2024 End: 12-21-2024 Refill Wendy Burden [employer] Work Phone: [facility] Comment on above: Alteration of awaren ess referral Start: 12-14-2024 End: 12-14-2024 Clinisync Result Encounter Generic External Data Provider [facility] Unsolicited Start: 12-14-2024 End: 12-14-2024 Clinisync Result Encounter Generic External Data Provider [facility] Unsolicited Start: 11-15-2024 End: 11-15-2024 Orders Only Wendy Burden NP Work Phone: [facility] Comment on above: Mixed hyperlipidemia (CMS/HCC) (Primary Dx) Anxiety Start: 11-14-2024 Registered Recurring Mikhail rosenberg MD [facility] Work Phone: Start: 11-14-2024 End: 11-14-2024 ambulatory Mikhail Moon MD Work Phone: [facility] Work Phone: Start: 11-14-2024 End: 11-14-2024 Patient encounter procedure [facility]ikhail Moon MD [facility] Work Phone: Start: 11-02-2024 End: 11-02-2024 Refill Wendy Burden [employer] Work Phone: [facility] Comment on above: Urinary tract infect ion symptoms (Primary Dx); UTI symptoms Start: 10-28-2024 End: 10-28-2024 Refill Wendy Burden NP Work Phone: [facility] Comment on above: Anxiety (Primary Dx) ; Psychophysiological insomnia Start: 10-27-2024 End: 10-27-2024 Transitional care manage srvc 14 day discharge Wendy Burden NP Work Phone: [facility] Comment on above: Cerebrovascular acci dent (CVA), unspecified mechanism (CMS/HCC) (Primary Dx); Malignant neoplasm of unspecified part of left bronchus or lung (CMS/HCC); Adenocarcinoma of left lung (CMS/HCC); Mixed hyperlipidemia (CMS/HCC); Tobacco dependency; Peripheral polyneuropathy; Primary hypertension (CMS/HCC); Screening mammogram for breast cancer Start: 10-27-2024 End: 10-27-2024 ambulatory WENDY BURDEN Not Available Start: 10-10-2024 Registered Recurring Mikhail rosenberg MD Work Phone: [facility] Work Phone: Start: 10-10-2024 End: 10-10-2024 ambulatory Mikhail Moon MD Work Phone: [facility] Work Phone: Start: 10-10-2024 End: 10-10-2024 Patient encounter procedure Mikhail Moon MD Work Phone: [facility] Work Phone: Start: 10-04-2024 End: 10-04-2024 ambulatory Mikhail Moon MD Work Phone: [facility] Work Phone: Start: 10-04-2024 End: 10-04-2024 Departed Referred Mikhail Moon MD Work Phone: [facility] Start: 09-26-2024 End: 09-26-2024 Bamboo flowsheet Kianna Lowe PA Work Phone: [facility] Start: 09-26-2024 End: 09-26-2024 Bamboo flowsheet Kianna Lowe PA Work Phone: [facility] Start: 09-26-2024 End: 09-26-2024 Office outpatient visit 25 minutes Kianna ORDOÑEZ Work Phone: [facility] Comment on above: Alteration of awaren ess (Primary Dx); History of stroke Start: 09-26-2024 End: 09-26-2024 ambulatory KIANNA ROMAN Not Available Start: 09-12-2024 Registered Recurring Mikhail rosenberg MD Work Phone: [facility] Work Phone: Start: 09-12-2024 Non-patient / Non-visit Imad Annette cordova MD Work Phone: [facility] Work Phone: Start: 09-05-2024 Non-patient / Non-visit Imad Annette cordova MD Work Phone: [facility] Work Phone: Start: 08-29-2024 Non-patient / Non-visit Imad Annette cordova MD Work Phone: [facility] Work Phone: Start: 08-12-2024 Non-patient / Non-visit Imad Annette cordova MD Work Phone: [facility] Work Phone: Start: 08-06-2024 Non-patient / Non-visit Imad Annette cordova MD Work Phone: [facility] Work Phone: Start: 08-04-2024 Non-patient / Non-visit Imad Annette cordova MD Work Phone: [facility] Work Phone: Start: 08-02-2024 End: 08-02-2024 Bamboo flowsheet Chris Mccordk [employer] Work Phone: [facility] Start: 08-02-2024 End: 08-02-2024 Bamboo flowsheet Chris Singh [employer] Work Phone: [facility] Start: 08-02-2024 End: 08-02-2024 Office outpatient visit 40 minutes Romel Sampson MD Work Phone: [facility] Comment on above: Alteration of awaren ess; History of stroke Start: 08-02-2024 End: 08-02-2024 ambulatory ROMEL GOMESANAHI Not Available Start: 08-02-2024 End: 08-02-2024 Patient encounter procedure Chris Singh [employer] Work Phone: [facility] Comment on above: Medicare annual well ness visit, subsequent (Primary Dx); Other polyneuropathy; Psychophysiological insomnia Start: 08-02-2024 End: 08-02-2024 ambulatory CHRIS SINGH Not Available Start: 07-28-2024 Registered Recurring Shaikh Izzy gunn MD Work Phone: [facility] Work Phone: Start: 07-28-2024 End: 07-28-2024 ambulatory Shaikh Aung FARFAN Work Phone: [facility] Work Phone: Start: 07-28-2024 End: 07-28-2024 Patient encounter procedure Shaikh Aung FARFAN Work Phone: [facility] Work Phone: Start: 07-18-2024 End: 07-18-2024 Telephone encounter [facility] Comment on above: lacosamide (VIMPAT) Start: 06-27-2024 End: 06-27-2024 Orders Only Chris Singh [employer] Work Phone: [facility] Comment on above: Moderate COPD (chron ic obstructive pulmonary disease) (CMS/HCC) Start: 06-21-2024 End: 07-04-2024 Telephone encounter C[facility] Comment on above: Hospital Follow-up Start: 06-21-2024 End: 06-21-[address] [facility] Start: 06-13-2024 End: 06-14-2024 Non-patient / Non-visit Shaikh Aung FARFAN Work Phone: [facility] Work Phone: Start: 05-31-2024 End: 05-31-2024 Office [...] 05-23-2024 End: 05-23-2024 Bamboo flowsheet Chris Singh [employer] Work Phone: [facility] Start: 05-23-2024 End: 05-23-2024 Bamboo flowsheet Chris Singh [employer] Work Phone: [facility] Start: 05-23-2024 End: 05-23-2024 Office outpatient visit 15 minutes Chris Singh [employer] Work Phone: [facility] Comment on above: Mass of left lung (P rimary Dx) Start: 05-23-2024 End: 05-23-2024 ambulatory CHRIS SINGH Not Available Start: 05-18-2024 End: 05-18-2024 ambulatory [facility] Start: 05-18-2024 End: 05-18-2024 ambulatory [facility] Start: 05-11-2024 End: 05-11-2024 ambulatory MD Shaikh Horan Work Phone: [facility] Work Phone: Start: 05-11-2024 End: 05-11-2024 Patient encounter procedure MD Shaikh Horan Work Phone: [facility] Phys[facility] Work Phone: Start: 05-10-2024 End: 05-10-2024 Office outpatient new 45 minutes Javier Villanueva DO Work Phone: [facility] Comment on above: Carcinoma in situ of ascending colon Start: 05-10-2024 End: 05-10-2024 ambulatory JAVIER Khalil MANDY Not Available Start: 05-02-2024 End: 05-02-2024 Refill Chris Craigzpatrick [employer] Work Phone: [facility] Comment on above: Gastroesophageal ref lux disease without esophagitis Start: 04-28-2024 ambulatory DIANA [facility]obar of [facility] Start: 04-21-2024 End: 04-21-2024 Patient encounter procedure MD Shaikh Horan Work Phone: [facility] [place] Work Phone: Start: 04-21-2024 End: 04-21-2024 ambulatory MD Shaikh Horan Work Phone: [facility] Work Phone: Start: 04-06-2024 ambulatory MD Shaikh Key kovacs Work Phone: [facility] Work Phone: Start: 04-06-2024 Non-patient / Non-visit MD Reynaldo Horan Work Phone: [facility] Physician [facility] Work Phone: Start: 03-25-2024 Non-patient / Non-visit MD Reynaldo Horan Work Phone: [facility] Gastroenterology Work Phone: Start: 03-25-2024 End: 03-25-2024 Admission to same day surgery center MD Shaikh Horan Work Phone: [facility] Work Phone: Start: 03-25-2024 End: 03-25-2024 ambulatory MD Shaikh Horan Work Phone: [facility] Work Phone: Start: 03-24-2024 End: 03-24-2024 Bamboo flowsheet Chris Singh [employer] Work Phone: [facility] Start: 03-24-2024 End: 03-24-2024 Bamboo flowsheet Chris Singh [employer] Work Phone: [facility] Start: 03-24-2024 End: 03-24-2024 Office outpatient visit 15 minutes Chris Singh [employer] Work Phone: [facility] Comment on above: Primary hypertension (CMS/HCC) (Primary Dx); Hyperlipidemia, unspecified hyperlipidemia type (CMS/HCC) Start: 03-24-2024 End: 03-24-2024 ambulatory CHRIS SINGH Not Available Start: 03-23-2024 End: 03-23-2024 ambulatory [facility] Start: 03-15-2024 End: 03-17-2024 Clinisync Result [...] 03-09-2024 ambulatory MD Shaikh Horan Work Phone: [facility] Work Phone: Start: 03-09-2024 End: 03-09-2024 Departed Referred MD Shaikh Horan Work Phone: [facility] Start: 03-07-2024 End: 03-07-2024 Refill Chris Singh [employer] Work Phone: [facility] Comment on above: Mixed hyperlipidemia (CMS/HCC) (Primary Dx); Hyperlipidemia, unspecified hyperlipidemia type (CMS/HCC) Start: 03-02-2024 End: 03-02-2024 Refill Chris Singh [employer] Work Phone: [facility] Comment on above: Moderate COPD (chron ic obstructive pulmonary disease) (CMS/HCC) (Primary Dx) Start: 03-01-2024 End: 03-01-2024 Clinisync Result Encounter Chris Singh [employer] Work Phone: [facility] Unsolicited Start: 03-01-2024 End: 03-01-2024 Clinisync Result Encounter Chris Singh [employer] Work Phone: [facility] Unsolicited Start: 03-01-2024 End: 03-01-2024 ambulatory SHAIKH AUNG Facility:[facility] Start: 03-01-2024 End: 03-01-2024 Patient encounter procedure Arden De Leon [facility] Start: 02-23-2024 Non-patient / Non-visit MD Reynaldo Horan Work Phone: [facility] Work Phone: Start: 02-22-2024 End: 02-22-2024 ambulatory CHRIS SINGH Not Available Start: 02-19-2024 ambulatory SHAIKH AUNG Facility: [facility] Start: 01-04-2024 End: 01-04-2024 ambulatory SHAIKH AUNG Not Available Start: 12-30-2023 End: 12-30-2023 Patient encounter procedure MD Shaikh Horan Work Phone: [facility] Physician [facility] Vascular Surgery Work Phone: Start: 12-30-2023 End: 12-30-2023 ambulatory MD Shaikh Horan Work Phone: [facility] Work Phone: Start: 12-27-2023 End: 12-27-2023 Emergency department patient visit MD Shaikh Horan Work Phone: [facility] Work Phone: Start: 08-20-2023 Orders Only Shaikh Aung FARFAN Work Phone: [facility] Comment on above: RLS (restless legs s yndrome) (Primary Dx); Moderate COPD (chronic obstructive pulmonary disease) (CMS/HCC) Start: 07-09-2023 Patient encounter procedure Shaikh Aung FARFAN Work Phone: [facility] Start: 03-25-2023 End: 03-25-2023 ambulatory Nigel Valladares Other [employer] Other Start: 03-25-2023 Office outpatient vi sit 15 minutes Nigel Valladares [facility] Vascular Surgery Start: 02-09-2023 End: 02-09-2023 ambulatory Cherelle Bautista Other [employer] Other Start: 02-09-2023 FQ visit new patient Cherelle girssom [facility] Vascular Surgery Start: 01-07-2023 End: 01-07-2023 Patient encounter procedure Brigette Martini [facility] Start: 01-01-2023 End: 01-01-2023 Patient encounter procedure Brigette Martini [facility] Start: 12-29-2022 End: 12-29-2022 Patient encounter procedure Brigette Martini [facility] Start: 12-24-2022 End: 12-24-2022 Patient encounter procedure Brigette Martini [facility] Start: 12-24-2022 End: 02-19-2023 Pre-admission assessment Jorge MERCEDES [facility] Start: 12-24-2022 End: 12-24-2022 Patient encounter procedure Brigette Martini [facility] Start: 11-11-2022 End: 11-11-2022 [...] encounter procedure Armando [facility] Start: 05-07-2022 End: 05-08-2022 ambulatory HURTADO H FAWWAMaximiliano Facility:[facility]1 Procedures Date Procedure Procedure Detail Performing Clinician Start: 12-22-2024 Culture bacterial quanttative colony count urine Wendy Woodsonenrique [employer] Work Phone: Start: 12-22-2024 URINE CULTURE - [facility] Margoth saunders Jenise [employer] Work Phone: Start: 12-14-2024 ALL CBC WITH AUTO DIFF Generic External Data Provider Start: 10-04-2024 Urine culture Imad Sadie rsoenberg MD Work Phone: Start: 06-21-2024 Colonoscopy Chris F itzpatrick [employer] Work Phone: Start: 05-24-2024 [facility]OLO [facility] REFERENCE LAB CONSULT Javier Villanueva DO Work Phone: Start: 04-21-2024 Carcinoembryonic antigen cea Cherelle Michele Comment on above: Result Comment: Seri al tumor marker results determined by assays using different manufacturers or methods may not be comparable. [facility] Laboratory adult basic education manager and method: [employer] DXI, 2 SITE IMMUNOENZYMATIC ?SANDWICH? ASSAY. PERFORMED BY: [place] [address] PATHOLOGIST TAKE OUT WAITER/WAITRESS JENNIFER ALANIZ M.D. Performed By: #### C EA #### [address] Start: 04-21-2024 Computed tomography of abdomen and pelvis with contrast MD Shaikh oHran Work Phone: Start: 04-21-2024 CT of thorax with contrast MD Shaikh Horan Work Phone: Start: 03-25-2024 End: 03-25-2024 Colonoscopy MD Shaikh Horan Work Phone: Start: 03-15-2024 HISTOPLASMA GAL'BARB AG UR Generic External Data Provider Start: 03-09-2024 ALL HGB HCT Generic Ex ternal Data Provider Start: 03-01-2024 ALL CBC WITH AUTO DIFF Chris Singh [employer] Work Phone: Start: 12-30-2023 US scan of [...] Horan Work Phone: Start: 12-27-2023 Antibody screen Cherelle Bautista Comment on above: Result Comment: PERF ORMED BY: [facility] [address] [place] [address] PATHOLOGIST TAKE OUT WAITER/WAITRESS JENNIFER ALANIZ M.D. Start: 12-27-2023 CT angiography [...] ant neoplasm of colon [facility] Start: 03-25-2034 Screening for malign ant neoplasm of colon [facility] Start: 04-12-2026 Screening for malign ant neoplasm of colon [facility] Start: 08-02-2025 Medicare Annual Well ness (AWV) Medicare Annual Wellness (AWV) [facility] Start: 06-15-2025 Adult BMI Screening Adult BMI Screen ing [facility] Start: 06-15-2025 Tobacco Screening Tobacco Screening [facility] Start: 03-13-2025 Influenza vaccination N [facility] Start: 01-26-2025 End: 01-26-2025 Patient encounter procedure 01/26/2025 10:30 AM EDT Office Visit [facility] [address] [place] [address] Wendy Burden, CLOTILDE [address] [place] [address] [facility] Start: 12-21-2024 End: 12-21-2024 Patient encounter procedure [facility] Comment on above: Arrived Start: 12-21-2024 End: 12-21-2025 Amylase [Enzymatic activity/volume] in Serum or Plasma Amylase Lab Routine Epigastric pain Expected: 12/21/2024 (Approximate), Expires: 12/21/2025 [facility] Comment on above: Expected: 12/21/2024 (Approximate), Expires: 12/21/2025 Start: 12-21-2024 End: 12-21-2025 Bacteria identified in Urine by Culture Urine culture (clean catch) Microbiology Routine Dysuria Expected: 12/21/2024 (Approximate), Expires: 12/21/2025 [facility] Comment on above: Expected: 12/21/2024 (Approximate), Expires: 12/21/2025 Start: 12-21-2024 End: 12-21-2025 Comprehensive metabolic 2000 panel - Serum or Plasma Comprehensive metabolic panel Lab Routine Chronic abdominal pain Dysuria Epigastric pain Expected: 12/21/2024 (Approximate), Expires: 12/21/2025 [facility] Comment on above: Expected: 12/21/2024 (Approximate), Expires: 12/21/2025 Start: 12-21-2024 End: 12-21-2025 CT Abdomen and Pelvis W contrast IV CT abdomen pelvis w IV contrast Imaging High Priority Infrarenal abdominal aortic aneurysm (AAA) without rupture (CMS/HCC) Chronic abdominal pain Expected: 12/21/2024 (Approximate), Expires: 12/21/2025 [facility] Work Phone: Comment on above: Expected: 12/21/2024 (Approximate), Expires: 12/21/2025 Start: 12-21-2024 End: 12-21-2025 Lipase [Enzymatic activity/volume] in Serum or Plasma Lipase Lab Routine Epigastric pain Expected: 12/21/2024 (Approximate), Expires: 12/21/2025 [facility] Comment on above: Expected: 12/21/2024 (Approximate), Expires: 12/21/2025 Start: 12-21-2024 End: 12-21-2025 Urinalysis complete panel - Urine Urinalysis with reflex microscopic (clean catch) Lab Routine Dysuria Expected: 12/21/2024 (Approximate), Expires: 12/21/2025 [facility] Comment on above: Expected: 12/21/2024 (Approximate), Expires: 12/21/2025 Start: 11-15-2024 End: 11-15-2025 Lipid 1996 panel - Serum or Plasma Lipid panel Lab Routine Mixed hyperlipidemia (CMS/HCC) Expected: 11/15/2024 (Approximate), Expires: 11/15/2025 [facility] [employer] Work Phone: Comment on above: Expected: 11/15/2024 (Approximate), Expires: 11/15/2025 Start: 10-27-2024 End: 12-27-2025 MG Breast - bilateral Screening Bilateral screening mammogram Imaging Routine Screening mammogram for breast cancer Expected: 10/27/2024 (Approximate), Expires: 12/27/2025 [facility] Work Phone: Comment on above: Expected: 10/27/2024 (Approximate), Expires: 12/27/2025 Start: 10-24-2024 End: 10-24-2024 Patient encounter procedure 10/24/2024 9:20 AM EDT Office Visit [facility] [address] [place] [id number] Kianna Roman PA [address] [place] [address] [facility] Start: 10-04-2024 Urine culture [facility] Start: 10-04-2024 Bacteria identified in Urine by Culture Urine Culture [facility] Start: 09-26-2024 End: 09-26-2024 Patient encounter procedure [facility] Comment on above: Arrived Start: 09-13-2024 End: 09-13-2024 Patient encounter procedure 09/13/2024 10:00 AM EST Office Visit [facility] [address] [place] [address] Chris Singh NP [address] [place] [address] [facility] Start: 08-02-2024 End: 08-02-2024 Patient encounter procedure [facility] Comment on above: Arrived Start: 08-01-2024 End: 08-01-2024 Patient encounter procedure 08/01/2024 10:30 AM EST Office Visit [facility] [address] [place] [address] Chris Singh NP [address] [place] [address] [facility] Start: 07-09-2024 Medicare Annual Well ness (AWV) Medicare Annual Wellness (AWV) [facility] Start: 06-29-2024 End: 06-29-2024 Patient encounter procedure 06/29/2024 9:45 AM EST [facility] [address] [place] [address] Javier Villanueva DO [address] [place] [address] Start: 06-23-2024 End: 03-24-2025 Lipid 1996 panel - Serum or Plasma Lipid panel Lab Routine Hyperlipidemia, unspecified hyperlipidemia type (CMS/HCC) Expected: 06/23/2024 (Approximate), Expires: 03/24/2025 [facility] Work Phone: Comment on above: Expected: 06/23/2024 (Approximate), Expires: 03/24/2025 Start: 06-23-2024 End: 06-23-2024 Patient encounter procedure 06/23/2024 10:00 AM EST [facility] [address] [place] [address] Chris Singh NP [address] [place] [address] [facility] Start: 05-31-2024 End: 05-31-2024 Patient encounter procedure 05/31/2024 10:30 AM EST Office [facility] [address] [place] [phone] Javier Villanueva, DO [address] [place] [address] [facility] Start: 05-03-2024 End: 05-03-2024 Patient encounter procedure 05/03/2024 2:00 PM EDT Consult [facility] [address] [place] [phone] Javier Villanueva, DO [address] [place] [address] Start: 04-06-2024 Patient referral [facility] Work Phone: Start: 03-25-[address] [facility] Start: 03-24-2024 End: 03-24-2024 Patient encounter procedure [facility] Comment on above: Arrived Start: 03-13-2024 Influenza vaccination [facility] Start: 01-10-2024 Influenza vaccination Influenza Vacc ine (#1) [facility] Comment on above: Postponed from 03/13 (Patient Refused) Start: 12-27-2023 Bacteria identified in Blood by Culture [facility] Start: 12-27-2023 Bacteria identified in Urine by Culture [facility] Start: 12-27-2023 Blood culture for bacteria, including anaerobic screen Blood Culture [facility] Start: 10-08-2023 End: 10-08-2023 Patient encounter procedure 10/08/2023 2:00 PM EDT Office Visit [facility] [address] [place] [address] Shaikh Horan MD [address] [place] [address] [facility] Start: 07-03-2023 Screening for malign ant neoplasm of breast Mammogram [facility] Start: 2017 Fall Risk Screening Fall Risk Screen ing [facility] Start: 2002 Administration of varicella zoster vaccine Zoster (Shingles) Vaccine (1 of 2) [facility] Start: 1971 DTaP,Tdap and Td Vaccines (1 - Tdap) DTaP,Tdap and Td Vaccines (1 - Tdap) [facility] Start: 1970 Adult BMI Follow Up Plan Adult BMI F ollow Up Plan [facility] Start: 1964 Depression Screening Depression Scre ening [facility] Start: 1952 Screening for malign ant neoplasm of colon [facility] Bacteria identified in Urine by Culture Urine culture Microbiology Routine 12/22/2024 10:41 AM EDT [facility] Work Phone: CT Chest WO contrast [facility] CT with contrast for radiotherapy planning [facility] Patient Education [facility] Work Phone: Patient referral [facility] Work Phone: URINE CULTURE - [facility] URINE CULTU RE - [facility] Lab Routine 12/22/2024 10:41 AM EDT [facility] Work Phone: US Thoracic and abdominal aorta [facility] Immunizations Immunization Date Immunization Notes Care Provider Fa brenda 07-09-2022 pneumococcal 20-ananya nt conjugate vaccine Brigette Lianet [facility] Griselda 07-03-2022 pneumococcal conjuga te vaccine, 13 valent Brigette Lianet [facility] Payers Date Payer Category Payer Medicare [id number] 2024 Medicare HMO [id number] 2023 Medicare (Managed Care) 1.2. [id number] 2023 Private Health Insurance [id number] 2023 Private Health Insurance [id number] 2022 Unknown [employer] [id number] 2022-Present [address] [place] JEAN [address] [id number] 2020 Unknown [id number] 2013 Medicare [id number] 2013 Medicare [id number] 1959 Self-pay 1952 Unknown [id number] 2.16.840.1.351838.3.579.2 .593 1952 Unknown [id number] 2.16.840.1.376923.3.579.2 .593 1952 Unknown [id number] 2.16.840.1.921628.3.579.2 .593 1952 Unknown [id number] 2.16.840.1.895359.3.579.2 .593 1952 Unknown [id number] 2.16.840.1.194160.3.579.2 .593 1952 Unknown [id number] 2.16.840.1.826412.3.579.2 .593 1952 Unknown [id number] 2.16.840.1.382062.3.579.2 .593 1952 Unknown [id number] 2.16.840.1.118682.3.579.2 .593 1952 Unknown [id number] 2.16.840.1.224352.3.579.2 .727 1952 Unknown [id number] 2.16.840.1.043584.3.579.2 .727 1952 Unknown [id number] 2.16.840.1.217972.3.579.2 .1259 1952 Unknown [id number] 2.16.840.1.853652.3.579.2 .1259 1952 Unknown [id number] 2.16.840.1.181503.3.579.2 .1259 1952 Unknown [id number] 2.16.840.1.591159.3.579.2 .1259 1952 Unknown [id number] 2.16.840.1.890727.3.579.2 .1259 1952 Unknown [id number] 2.16.840.1.717130.3.579.2 .1259 1952 Unknown [id number] 2.16.840.1.461291.3.579.2 .1259 1952 Unknown [id number] 2.16.840.1.259368.3.579.2 .1259 1952 Unknown [id number] 2.16.840.1.882887.3.579.2 .1259 1952 Unknown [id number] 2.16.840.1.634191.3.579.2 .1259 1952 Unknown [id number] 2.16.840.1.417400.3.579.2 .1259 Medicare [employer] MCR PF [id number] Unknown [id number] 2.16.840.1.505394.3.579.2 .531 Unknown [id number] 2.16.840.1.322354.3.579.2 .531 Unknown [id number] 2.16.840.1.289079.3.579.2 .531 Unknown [id number] 2.16.840.1.886219.3.579.2 .531 Unknown [id number] 2.16.840.1.334801.3.579.2 .531 Unknown [id number] 2.16.840.1.444691.3.579.2 .531 Unknown [id number] 2.16.840.1.782623.3.579.2 .531 Unknown [id number] 2.16.840.1.565210.3.579.2 .531 Unknown [id number] 2.16.840.1.297795.3.579.2 .531 Social History Date Type Detail Facility Tobacco smoking status [facility] Start: 07-09-2023 End: 12-08-2023 Sex Assigned At Female [facility] Start: 12-24-2022 Tobacco smoking status Heavy t obacco smoker (finding) [facility] Tobacco smoking status Never [facility] Start: 07-09-2023 Tobacco smoking stat us CAIS Smokes tobacco daily [facility] End: 12-28-2023 [...] Start: 1950 Sex Assigned At Female F [facility] Start: 12-27-2023 End: 12-28-2023 Tobacco smoking status CAIS Smoker (finding) [facility] Start: 01-04-2024 End: 03-25-2024 Tobacco smoking status [facility] Ex-smoker (finding) [facility] History of tobacco use Passive smoker [...] Start: 06-15-2024 Alcoholic beverage intake Ex-drinker (finding) [facility] Start: 06-13-2024 End: 11-14-2024 Sex Female (finding) [facility] Goals Date Patient Goal Desired Activity /State Personal health goal Comment on above: Formatting of this n ote might be different from the original. Evaluation of progress towards goal: Significant other hopes patient will be able to return home Functional Status Date Assessment Result Facility 12-24-2022 Functional Status N/A [facility] Clinical Notes 06-09-2022 to 12-21-2024 Wendy Burden NP - 12/21/2024 6:35 PM Karthik Burden NP - 12/21/2024 6:35 PM Karthik Burden NP - 12/21/2024 6:34 PM Karthik Burden NP - 12/21/2024 6:34 PM EDTPatient Instructions Note Date & Type Note Facility 12-21-2024 History of Presen t illness Narrative Associated Problem(s): Tobacco dependency The patient has been advised of the risks of continued smoking: stroke, OR, all forms of cancer, lung disease, and . Options for quitting smoking include: cold turkey, hypnosis, acupuncture, nicotine replacement meds (gum, lozenges, and patches), Buproprion, and Varenicline. At this time pt is encouraged to evaluate their goals for wanting to quit smoking, and reach out to provider when ready to start this process Associated Problem(s): Gastroesophageal reflux disease Stop esomeprazole Trial pantoprazole Associated Problem(s): Infrarenal abdominal aortic aneurysm (AAA) without rupture (CMS/HCC) Hx of this, doubt pain related to this Will get updated CT Associated Problem(s): Epigastric pain Stop esomeprazole Trial pantoprazole Check labs Associated Problem(s): Dysuria Check urine and culture Associated Problem(s): Chronic abdominal pain DD: constipation, GERD, UTI, ulcer Hx colon cancer Check labs, check CT Changed PPI from nexium to pantoprazole, and add anti spasmodic Pt states that when she was in the hospital she had explained to them that she was having abdominal pain, they had proceeded to do a chest [...] has pain when laying sitting eating; everything. documented in this encounter [facility] 12-21-2024 Instructions Wendy Burden NP - 12/21/2024 4:00 PM EDT We will order CT scan abd/pelvis area First get labs completed for me Stop nexium (esomeprazole), we will trial pantoprazole 40mg daily documented in this encounter [facility] 12-19-2024 Miscellaneous Notes What is the reason for the call? referral If appointment requested, what is the reason for the appointment? New patient Is there a referral in the chart? yes Were they seen in the hospital? What hospital were they seen at? yes, 10/05/24 patient was seen telestroke with Dr. Abdi Kimble and patient was admitted to [facility]. What is a good call back number? [place] [phone] Please Advise. Would patient need to schedule new patient appointment with stroke or general neurology? Patient significant other is requesting a call back to schedule. Thank you so much. Okay to schedule with carlos/fellow/homar. Was in the middle of scheduling an appt with the patient when short story writer was giving the address and she realized we are located in [place]. She stated she doesn't want [place] and that she will not go to [place]. She then disconnected the call [employer] canceled the appt. documented in this encounter [facility] 12-19-2024 Telephone encounter Note What is the reason for the call? referral If appointment requested, what is the reason for the appointment? New patient Is there a referral in the chart? yes Were they seen in the hospital? What hospital were they seen at? yes, 10/05/24 patient was seen telestroke with Dr. Abdi Kimble and patient was admitted to [facility]. What is a good call back number? [place] [phone] Please Advise. Would patient need to schedule new patient appointment with stroke or general neurology? Patient significant other is requesting a call back to schedule. Thank you so much. [facility] 12-19-2024 Telephone encounter Note Okay to schedule with carlos/fellow/homar. [facility] 12-19-2024 Telephone encounter Note Was in the middle of scheduling an appt with the patient when short story writer was giving the address and she realized we are located in [place]. She stated she doesn't want [place] and that she will not go to [place]. She then disconnected the call [employer] canceled the appt. [facility] 10-27-2024 History of Presen t illness Narrative Associated Problem(s): Adenocarcinoma of left lung (CMS/HCC) Continue with oncology Images from the original note were not included. Bhupendra Rubi is a 74 y.o. female presents with chief complaint of No chief complaint on file. HPI: Here for hospital/ mcc fu: [facility] ER for CVA 10/04/24, then to [facility] for rehab See notes for hospital notes [...] daily atorvastatin (LIPITOR) 80 mg, Oral, Daily Mhembdp-Fzesnznjbwp-Fnxymtseaq (Breztri Aerosphere) 160-9-4.8 MCG/ACT aerosol 2 puffs, [...] (hyperlipidemia) (CMS/HCC) On Lipitor 80 daily Hypertension ([facility]/HCC) Infrarenal abdominal aortic aneurysm (AAA) without rupture ([facility]/HCC) CT chest done in 11/02 by Pulm [...] Problem List Items Addressed This Visit Hyperlipidemia ([facility]/HCC) On statin therapy Check labs yearly and prn dose changes Hypertension ([facility]) Does not take any medications for this, [...] of the risks of continued smoking: stroke, OR, all forms of cancer, lung disease, and [...] Continue with oncology CVA (cerebral vascular accident) ([facility]/HCC) - Primary recent hospitalization at [facility] around 10/04/24, was also sent to [facility] [...] of the risks of continued smoking: stroke, OR, all forms of cancer, lung disease, and [...] (cerebral vascular accident) (CMS/HCC) recent hospitalization at [facility] around 10/04/24, was also sent to [facility] for rehab as well Current meds: temoharmansandy (although this was not sent to pharmacy) I did send in script for this We discussed need for home health PT/OT-she refuses too many bills and states its just a way for them to get money I did explain that if she changed her mind to let me know documented in this encounter [facility] 10-27-2024 Instructions Wendy Burden NP - 10/27/2024 10:30 AM EDT Mammogram: [facility], they will call to schedule you Please call Neurology office to get an appointment documented in this encounter [facility] 09-26-2024 History of Presen t illness Narrative [...] Review Audit Reviewed by Yakelin Powell MA (Ice Cream Vendor) on 09/26/24 at 1022 Medication Order Taking? Sig Documenting Provider Last Dose Status albuterol HFA 90 mcg/act inhaler [id number] Inhale 2 puffs every 4 (four) hours if needed for wheezing or shortness of breath Shaikh Aung MD Active atorvastatin (Lipitor) 80 MG tablet [id number] Take 1 tablet (80 mg) by mouth Daily Chris Singh NP 08/02/24 2359 Dsygctd-Qlrkvqnpujj-Ohtnlnxfax (Breztri Aerosphere) 160-9-4.8 MCG/ACT aerosol [id number] Inhale 2 puffs in the morning and 2 puffs before bedtime. Chris Singh NP Active ezetimibe (Zetia) 10 MG tablet [id number] Take 1 tablet (10 mg) by mouth in the morning. Shaikh Aung MD 08/02/24 235 gabapentin (Neurontin) 300 MG capsule [id number] Take 1 capsule (300 mg) by mouth in the morning and 1 capsule (300 mg) in the evening and 1 capsule (300 mg) before bedtime. Chris Singh NP Active lacosamide (Vimpat) 150 mg tablet tablet [id number] Take 150 mg by mouth in the morning and 150 mg in the evening. Active lamoTRIgine (LaMICtal) 100 MG tablet [id number] Take 100 mg by mouth in the morning. Do not start before July 28, 2024. Active losartan (Cozaar) 25 MG tablet [id number] Take 25 mg by mouth in the morning. Active rOPINIRole (Requip) 0.5 MG tablet [id number] Take 1 tablet (0.5 mg) by mouth at bedtime Shaikh Aung MD Active traZODone (Desyrel) 100 MG tablet [id number] Take 1 tablet (100 mg) by mouth [...] pin prick in the right side. Coordination Zuzzfx-gb-rdeb, rapid alternating movements and cjza-gq-byec normal bilaterally without dysmetria. Gait Normal casual, toe, heel and tandem gait. Motor Examination RUE Strength deltoid, biceps, triceps, wrist extensors, wrist extensors, wrist flexor, night time nanny strength 4/5. LUE Strength deltoid, biceps, triceps, wrist extensors, wrist extensors, wrist flexor, night time nanny strength 5/5. RLE Strength illopsoas, quadriceps, tibialis [...] seizure-like episode in June and went to [facility] and then transferred to [place]. The episode that she had presented as [...] in 4 weeks documented in this encounter [facility] 08-02-2024 History of Presen t illness Narrative [...] Review Audit Reviewed by Lashaun Reynaga MA (Ice Cream Vendor) on 08/02/24 at 1158 Medication Order Taking? Sig Documenting Provider Last Dose Status albuterol HFA 90 mcg/act inhaler [id number] Inhale 2 puffs every 4 (four) hours if needed for wheezing or shortness of breath Shaikh Aung MD Active atorvastatin (Lipitor) 80 MG tablet [id number] Take 1 tablet (80 mg) by mouth Daily Chris Singh NP Active Iwpabgk-Btazswolwxj-Wllxfuaowj (Breztri Aerosphere) 160-9-4.8 MCG/ACT aerosol [id number] Inhale 2 puffs in the morning and 2 puffs before bedtime. Chris Singh NP Active ezetimibe (Zetia) 10 MG tablet [id number] Take 1 tablet (10 mg) by mouth in the morning. Shaikh Aung MD Active Discontinued 08/02/24 1054 Discontinued 08/02/24 1118 gabapentin (Neurontin) 300 MG capsule [id number] Take 1 capsule (300 mg) by mouth in the morning and 1 capsule (300 mg) in the evening and 1 capsule (300 mg) before bedtime. Chris Singh NP Active lacosamide (Vimpat) 150 mg tablet tablet [id number] Take 150 mg by mouth in the morning and 150 mg in the evening. Active lamoTRIgine (LaMICtal) 100 MG tablet [id number] Take 100 mg by mouth in the morning. Do not start before July 28, 2024. Active Discontinued 08/02/24 1055 Discontinued 08/02/24 1055 losartan (Cozaar) 25 MG tablet [id number] Take 25 mg by mouth in the morning. Active Discontinued 08/02/24 1056 rOPINIRole (Requip) 0.5 MG tablet [id number] Take 1 tablet (0.5 mg) by mouth at bedtime Shaikh Aung MD 05/23/24 2359 Discontinued 08/02/24 1118 traZODone (Desyrel) 100 MG tablet [id number] Take 1 tablet (100 mg) by mouth at bedtime Chris Singh NP Active Discontinued 08/02/24 1057 HPI HPI Ms. Rubi is a 74 year old female who I was asked to see in neurological consultation at the request of Dr. Lundberg for seizures. She states that she has had 2 seizures. She was seen at [facility] and [facility] and was transferred to [place]. She admits LOC and body shaking. She [...] pin prick in the right side. Coordination Suyxvf-gx-zjvc, rapid alternating movements and mhjr-dx-awqi normal bilaterally without dysmetria. Gait Normal casual, toe, heel and tandem gait. Motor Examination RUE Strength deltoid, biceps, triceps, wrist extensors, wrist extensors, wrist flexor, night time nanny strength 4/5. LUE Strength deltoid, biceps, triceps, wrist extensors, wrist extensors, wrist flexor, night time nanny strength 5/5. RLE Strength illopsoas, quadriceps, tibialis [...] seizure-like episode in June and went to [facility] and then transferred to [place]. The episode that she had presented as [...] options. I have reviewed the records from [facility] and ponca Continue Vimpat 150 mg bid for seizure [...] effects from medications. documented in this encounter [facility] 08-02-2024 History of Presen t illness Narrative [...] mg) by mouth Daily 90 tablet 0 Nhkihfq-Vzykgkiunhz-Qunkcikgpi (Breztri Aerosphere) 160-9-4.8 MCG/ACT aerosol Inhale 2 [...] Do you have a medical power of county attorney?: Yes Who is your medical power of county attorney?: charito son Objective : BP 128/76 [...] August 02, 2024 documented in this encounter [facility] 07-28-2024 Evaluation note Diagnosis Onset Date Resolution Non-small cell lung cancer acute July 28 1:45pm [facility] Work Phone: [phone]) 204-458301-06-2025 Miscellaneous Notes* Telephone Encounter - Layannette Chacon - 07/18/2024 2:17 PM EST Henok from [facility] called to request a refill of the patient's lacosamide (VIMPAT) 150 mg tablet. [employer] informed her that the prescription was sent on 06/17/2024 with 3 refills to [facility] Ellen voiced understanding and stated she would inform the patient [facility] Telephone encounter Note* Telephone Encounter - Lay Chacon - 07/18/2024 2:17 PM EST Henok from [facility] called to request a refill of the patient's lacosamide (VIMPAT) 150 mg tablet. Super[employer] informed her that the prescription was sent on 06/17/2024 with 3 refills to [facility] voiced understanding and stated she would inform the patient [facility]12-10-2024 NotePatient: Bhupendra Rubi Procedure Summary Date: 06/21/24 Room / Location: [facility] In[facility] Anesthesia Start: 1343 Anesthesia Stop: 1444 [...] per anesthesia protocol. No notable events documented.[facility] Note Airway Date/Time: 06/21/2024 1:49 PM Urgency: elective General Information and Staff Patient location during procedure: OR Anesthesiologist: Jacki Rivas MD Resident/KANDY/MENDEZ: MENDEZ Guzman Performed: resident/KANDY/MENDEZ Indications and Patient Condition Indications for airway [...] approach: 1 Number of other approaches [facility]: [facility] NotePatient: Bhupendra Rubi Procedure Information Date/Time: 06/21/24 1200 Scheduled providers: Jacki Rivas MD; MENDEZ Guzman; Florinda Sandoval MD Procedure: DIAGNOSTIC COLONOSCOPY Location: [facility] Past Medical History: Diagnosis Date Anxiety [...] disease Neuro/Psych (+) CVA (cerebral vascular accident) ([facility]) Pulmonary (+) Moderate COPD (chronic obstructive pulmonary disease) ([facility]) Clinical information reviewed: Tobacco Allergies Meds Med Hx Surg Hx Fam Hx Soc Hx Physical Exam Airway Mallampati: II TM distance: >3 FB Neck ROM: full Cardiovascular - normal exam Dental (+) upper dentures, lower dentures Pulmonary - normal exam Abdominal - normal exam Other findings: RUE weakness s/p previous CVA Patient denies any seizure activity since being treated last week at [facility] Anesthesia Plan ASA 3 general (Due to new onset seizure like activity, spoke with neurologist who took care of patient at [facility]. Recommendation by neurology was to give IV [...] risks discussed with patient. Plan discussed with MENDEZ. Discussed with patient plan to proceed after giving IV Keppra, per neurology recommendations for this procedure. Also discussed with patient that recent new onset seizure activity may place her at increased risk of neuro events in perioperative period. [facility] Note Patient: Bhupendra Rubi Procedure Summary Date: 06/21/24 Room / Location: [facility] Anesthesia Start: 1343 Anesthesia Stop: 1444 Procedure: DIAGNOSTIC COLONOSCOPY Diagnosis: Polyp of ascending colon, unspecified type Colonic mass Scheduled Providers: Jacki Rivas MD; MENDEZ Guzman; Florinda Sandoval MD Responsible Provider: Jacki Rivas MD Anesthesia Type: general ASA Status: 3 Anesthesia Post Transport Note Transport to: PACU O2 Route: room air Patient Monitor: direct observation Transport: uneventful Patient condition is: [facility] Miscellaneous Notes* Telephone Encounter - Casi Fitzgerald - 06/21/2024 8:11 AM EST ----- Message from Bailey Alba MD sent at 06/17/2024 2:34 PM EST ----- Please schedule this patient for a follow-up appointment in the resident clinic in 4-6 weeks of discharge Diagnosis: New onset seizures * Telephone Encounter - Kateryna Covarrubias - 06/21/2024 8:11 AM EST 1st attempt: [employer] contacted patient and left a voicemail offering to schedule in with our clinic for a hospital follow up appointment as we have received a provider message requesting to see patient in office. [employer] provided callback number for scheduling or to address any questions or concerns they may have. * Telephone Encounter - Ange Solorzano - 06/21/2024 8:11 AM EST 2nd attempt: Left message for patient [facility] Tele[facility] encounter Note* Telephone Encounter - Casi Fitzgerald - 06/21/2024 8:11 AM EST ----- Message from Bailey Alba MD sent at 06/17/2024 2:34 PM EST ----- Please schedule this patient for a follow-up appointment in the resident clinic in 4-6 weeks of discharge Diagnosis: New onset seizures [facility] [employer] [id number] Telephone encounter Note* Telephone Encounter - Kateryna Covarrubias - 06/21/2024 8:11 AM EST 1st attempt: [employer] contacted patient and left a voicemail offering to schedule in with our clinic for a hospital follow up appointment as we have received a provider message requesting to see patient in office. [employer] provided callback number for scheduling or to address any questions or concerns they may have. [id number] Telephone encounter Note* Telephone Encounter - Ange Solorzano - 06/21/2024 8:11 AM EST 2nd attempt: Left message for patient ANTERIOS11-19-2024 History of Present illness Narrative* Javier Villanueva, - 05/31/2024 10:30 AM EST Images from the original note were not included. Bhupendra Rubi 1950 Bhupendra Rubi is a 73 y.o. female presents with chief complaint of Follow-up HPI: HPI patient had her lung biopsy. She is waiting for results on that. She is scheduled to have her repeat colonoscopy on June 21. She is having that done in [place]. She has not having any abdominal pain. She has not having any blood in his stool. SUBJECTIVE: MEDICATIONS: ALLERGIES Current Outpatient Medications Medication Instructions albuterol HFA 90 mcg/act inhaler 2 puffs, Inhalation, Every 4 hours PRN atorvastatin (LIPITOR) 80 mg, Oral, Daily Gmcyhsw-Bylfltudqyk-Ilafkottgu (Breztri Aerosphere) 160-9-4.8 MCG/ACT aerosol 2 puffs, [...] sent for 2nd opinion at [facility] and they did not identify any [...] week after her colonoscopy. documented in this encounterHarry S. Truman Memorial Veterans' [id number] History of Present illness Narrative* Chris Singh [...] note were not included. Subjective Patient ID: Bhupenrda Rubi is a 73 y.o. female who presents for Follow-up. HPI Following with Frank CAICEDO- Dr. Mohr General Surgery- Dr. Villanueva Pulmonology- Dr. Ngoc Kirby is here today for a routine follow up. She recently was referred to kerry, pulmonary, and gen surgery for lung mass. 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 Recently had EBUS at [facility], is scheduled for colonoscopy as well. Is [...] additional. Pathology reports pending. documented in this encounterHarry S. Truman Memorial Veterans' [id number] Instructions* Patient Instructions* Chris Singh NP - 05/23/2024 10:30 AM EST Follow up with Dr. Lundberg's office this week. Have colonoscopy scheduled. Call if you need anything! documented in this encounterHarry S. Truman Memorial Veterans' [id number] NoteAddendum created 05/20/24 1439 by Marilia Pennington MD Intraprocedure Meds editedUnHenry County Hospital11-[facility] Note Patient: Bhupendra Rubi Procedure Summary Date: 05/18/24 Room / Location: [facility] Main Operating Room Anesthesia Start: 1251 Anesthesia [...] per anesthesia protocol. No notable events documented.[facility]11-06-2024 Note Patient's significant other at bedside. He states he was not updated post procedure by Dr. Warren or his fellow Dr. Hamlin. RN notified physician of family's request for update and chest xray was completed, but needs to be read prior to discharge.[facility]11-06-2024 NoteAirway Date/Time: 05/18/2024 12:57 PM Urgency: elective General Information and Staff Patient location during procedure: OR Anesthesiologist: Micky Hilliard MD Resident/SENIOR WINDOWS ADMINISTRATOR/CAA: Marilia Pennington MD Performed: resident/SENIOR WINDOWS ADMINISTRATOR/CAA Indications and Patient Condition Indications for airway [...] approach: 1 Number of other approaches attempted: 0[facility] 05-18-2024 NotePatient: Bhupendra Rubi Procedure Information Date/Time: 05/18/24 1230 Scheduled providers: Diana Warren MD; Micky Hilliard MD Procedure: BRONCHOSCOPY Location: [facility] Main Operating Room Relevant Problems Anesthesia Denies [...] (+) Moderate COPD (chronic obstructive pulmonary disease) ([facility]/HCC) Clinical information reviewed: Tobacco Allergies Meds Problems [...] products. Plan discussed with resident. 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 Do not wear perfume, make-up, nail slovak, or lotions on the day of your [...] need to make any changes, please call [phone]. Notify your surgeon if you develop any illness such as a cold, cough, fever, sore throat or vomiting between now and your surgery. Thank you for entrusting us with your care. [facility] Surgical Services TeamSt. Mary[facility]10-30-2024 Evaluation note* Diagnosis Onset Date Resolution Status Admit Date High grade dysplasia in colonic adenoma acute May 11 1:25pm History of hypotension acute Oc tober 2023 1:25pm Mass of upper lobe of left lung acute May 11 1:25pm Non-small cell lung cancer acute July 28, 2024 1:45pm [facility] Work Phone: [phone] 226-185410-29-2024 History of Present illness Narrative* Javier Villanueva, - 05/10/2024 2:30 PM EDT Images from the original note were not included. Bhupendra Wilburn Stephen 1950 Bhupendra Rubi is a 73 y.o. [...] PRN atorvastatin (LIPITOR) 80 mg, Oral, Daily Cleuhpf-Kunqxssvvng-Yieoniwhcs (Breztri Aerosphere) 160-9-4.8 MCG/ACT aerosol 2 puffs, [...] Infrarenal abdominal aortic aneurysm (AAA) without rupture ([facility]/HCC) CT chest done in 11/02 by Tamera [...] invasive adenocarcinoma . I Communicated with her geodetic survey director, he felt this was completely removed. I am sending her pathology to [facility] for 2nd opinion. Patient is having her lung mass worked up with a biopsy in [place] and is supposed to get a 2nd [...] I discussed that with Dr. Moon her geodetic survey director. documented in this encounterHarry S. Truman Memorial Veterans' [id number] Note Attestation signed by Diana Warren MD [...] Age: 73 y.o. : 1950 Account No.: [id number] Referring physician: Dr. Lundberg Chief complaint: Lung [...] was initiated by the patient and conducted opd-gdmw-ip-face with use of audio-only real time telephone [...] pruritus. Physical examination (more content not included)...[facility]09-13-2024 History of Present illness Narrative* Chris Singh NP - 03/25/2024 1:46 PM EDTAssociated Problem(s): Mass of left lung Bronchoscopy done: PET SCAN indicated advancing growth of lung nodules; Following with Dr. Olamide Lange/onco closely. Referral [...] them to next visit. documented in this [facility]09-13-2024 Procedure [facility]09-12-2024 Instructions* Patient Instructions* Chris Singh NP - 03/24/2024 11:30 AM EDT Keep all appointments with specialists as scheduled Call if you need anything! documented in this [facility]09-13-2023 Evaluation note* Encounter Date Diagnosis Assessment Notes [...] were addressed she understands agrees the plan. [employer] Other 07-31-2023 Evaluation note* Encounter Date Diagnosis Assessment Notes Treatment Notes Treatment Clinical Notes Jan, Abdominal aortic aneurysm (AAA) without rupture, unspecified part (ICD-10 - I71.40) We reviewed her abdominal CT imaging from outside facility at the [facility] which shows AAA 3.4 cm in greatest [...] her risk and is unmotivated to quit. [employer] Other 06-14-2023 Hospital Discharge instructions Patient Education [...] Follow these instructions at home: Medicines Take bkst-fbc-ovlcoqs and prescription medicines only as told by [...] Watch your condition for any changes. Take vgkp-ixu-xqhosxu and prescription medicines only as told by [...] provider. Document Revised: 08/17/2020 Document Reviewed: 11/07/2019 [employer] Patient Education 2022 [employer]. Follow Up Care 12/15/2022 11:25:23 With:Brigette Martini CNP Address: When:1 month [facility] 11-28-2022 Hospital Discharge instructions [...] fried and sweet foods. General instructions Take kraw-qyl-ogqubwv and prescription medicines only as told by [...] 04/25/2010 Document Revised: 10/20/2019 Document Reviewed: 07/15/2018 [employer] Patient Education 2020 [employer]. Follow Up Care 05/09/2022 11:00:12 With:TRISTA FARFAN, Armando Mckay, URL Address: [facility] [address], [place] [address]- When: Unknown [facility] evaluation + Plan note No data available for this section [facility] evaluation + Plan note Future Appointments Appointment Date:12/29/2022 10:30:00 AM Scheduled Provider: Location:FT.[facility] Appointment Type:US Abdominal/Pelvis (FT) Appointment Date:02/18/2023 08:15:00 AM Scheduled Provider: Location:[facility] Surgical Services Appointment Type:Surgery FT Future Scheduled Tests Radiology* US Abdomen, Limited 12/29/22 [facility] Evaluation + Plan note Future Appointments Appointment Date:02/18/2023 08:15:00 AM Scheduled Provider: Location:[facility] Future Appointments Appointment Date:01/07/2023 11:00:00 AM Scheduled Provider: Location:.[facility] Appointment Type:CT Abdomen (FT) Appointment Date:02/18/2023 08:15:00 AM Scheduled Provider: Location:[facility] Appointment Type:Surgery FT Future Scheduled Tests Radiology* CT Abdomen w/ Contrast [facility]07/23 [facility] Diagnosis RLS (restless legs syndrome)- Primary Restless legs syndrome (RLS) Moderate COPD (chronic obstructive pulmonary disease) (CMS/HCC) documented in this [facility] HealthcareEvaluation noteNo assessment information availableBlanchard Valley Health System Work Phone: Evaluation note* Diagnosis Onset Date Resolution Status Abdominal aortic aneurysm (A AA) 3.0 cm to 5.0 cm in diameter in female acute [facility] Work Phone: Evaluation note* Diagnosis Tobacco [...] esophagitis Esophageal reflux documented in this encounter [facility] HealthcareEvaluation note* Diagnosis Tobacco dependency- Primary [...] of ascending colon documented in this encounter [facility] HealthcareEvaluation note* Diagnosis Tobacco dependency- Primary [...] polyneuropathy Moderate COPD (chronic obstructive pulmonary disease) ([facility]/HCC) Hyperlipidemia, unspecified hyperlipidemia type ([facility]/HCC) Primary hypertension ([facility]/HCC) Unspecified essential hypertension Chronic abdominal pain Abdominal pain, unspecified site Moderate COPD (chronic obstructive pulmonary disease) ([facility]/HCC)- Primary Primary hypertension ([facility]/HCC) Unspecified essential hypertension Moderate COPD (chronic obstructive pulmonary disease) ([facility]/HCC)- Primary Mass of left lung Primary hypertension ([facility]/HCC) Unspecified essential hypertension Syncope and collapse Mass of left lung- Primary Mass of left lung- Primary Primary hypertension ([facility]/HCC)- Primary Unspecified essential hypertension Moderate COPD (chronic obstructive pulmonary disease) ([facility]/HCC) Hyperlipidemia, unspecified hyperlipidemia type ([facility]/HCC) Gastroesophageal reflux disease without esophagitis Esophageal reflux H/O: CVA (cerebrovascular accident) Wellness examination History of colon polyps Chronic abdominal pain Abdominal pain, unspecified site Primary hypertension ([facility]/HCC)- Primary Unspecified essential hypertension Hyperlipidemia, unspecified hyperlipidemia type ([facility]) Mass of left lung- Primary Moderate COPD (chronic obstructive pulmonary disease) ([facility]/HCC) documented [facility]* Diagnosis Moderate COPD (chronic obstructive pulmonary disease) ([facility]/HCC)- Primary documented in this encounter [facility]* Diagnosis Mixed hyperlipidemia ([facility]/HCC)- Primary Mixed hyperlipidemia Hyperlipidemia, unspecified hyperlipidemia type ([facility]/HCC) documented in this encounter [facility]* Diagnosis Tobacco dependency- Primary Tobacco use disorder Hyperlipidemia, unspecified hyperlipidemia type ([facility]/HCC) H/O: CVA (cerebrovascular accident) Primary hypertension ([facility]/HCC) Unspecified essential hypertension Moderate COPD (chronic obstructive pulmonary disease) ([facility]/HCC) RLS (restless legs syndrome) Restless legs syndrome (RLS) Peripheral polyneuropathy Screening mammogram for breast cancer Medicare annual wellness visit, subsequent RLS (restless legs syndrome)- Primary Restless legs syndrome (RLS) Peripheral polyneuropathy Moderate COPD (chronic obstructive pulmonary disease) ([facility]/HCC) Hyperlipidemia, unspecified hyperlipidemia type ([facility]/HCC) Primary hypertension ([facility]/HCC) Unspecified essential hypertension Chronic abdominal pain Abdominal pain, unspecified site Moderate COPD (chronic obstructive pulmonary disease) ([facility]/HCC)- Primary Primary hypertension (CMS/HCC) Unspecified essential hypertension [...] Tobacco use disorder Hyperlipidemia, unspecified hyperlipidemia type ([facility]/HCC) H/O: CVA (cerebrovascular accident) Primary hypertension (CMS/HCC) Unspecified essential hypertension Moderate COPD (chronic obstructive pulmonary disease) (CMS/HCC) RLS (restless legs syndrome) Restless legs syndrome (RLS) Peripheral polyneuropathy Screening mammogram for breast cancer Medicare annual wellness visit, subsequent RLS (restless legs syndrome)- Primary Restless legs syndrome (RLS) Peripheral polyneuropathy Moderate COPD (chronic obstructive pulmonary disease) (CMS/HCC) Hyperlipidemia, unspecified hyperlipidemia type ([facility]/HCC) Primary hypertension ([facility]/HCC) Unspecified essential hypertension Chronic abdominal pain Abdominal pain, unspecified site Moderate COPD (chronic obstructive pulmonary disease) (CMS/HCC)- Primary Primary hypertension ([facility]/HCC) Unspecified essential hypertension Moderate COPD (chronic obstructive pulmonary disease) ([facility]/HCC)- Primary Mass of left lung Primary hypertension ([facility]/HCC) Unspecified essential hypertension Syncope and collapse Mass of left lung- Primary Mass of left lung- Primary Primary hypertension ([facility]/HCC)- Primary Unspecified essential hypertension Moderate COPD (chronic obstructive pulmonary disease) ([facility]/HCC) Hyperlipidemia, unspecified hyperlipidemia type ([facility]/HCC) Gastroesophageal reflux disease without esophagitis Esophageal reflux H/O: CVA (cerebrovascular accident) Wellness examination History of colon polyps Chronic abdominal pain Abdominal pain, unspecified site Primary hypertension ([facility]/HCC)- Primary Unspecified essential hypertension Hyperlipidemia, unspecified hyperlipidemia type ([facility]/HCC) Mass of left lung- Primary Alteration of awareness- Primary History of stroke Transient ischemic attack (TIA), and cerebral infarction without residual deficits documented in this encounter [facility] HealthcareEvaluation note* Diagnosis Tobacco dependency- Primary Tobacco use disorder Hyperlipidemia, unspecified hyperlipidemia type ([facility]/HCC) H/O: CVA (cerebrovascular accident) Primary hypertension ([facility]/HCC) Unspecified essential hypertension Moderate COPD (chronic obstructive [...] for breast cancer documented in this encounter [facility] HealthcareEvaluation note* Diagnosis Tobacco dependency- Primary [...] or maintaining sleep documented in this encounter [facility] HealthcareEvaluation note* Diagnosis Tobacco dependency- Primary [...] Primary UTI symptoms documented in this encounter [facility] HealthcareEvaluation note* Diagnosis Tobacco dependency- Primary [...] Primary Mixed hyperlipidemia documented in this encounter [facility] HealthcareEvaluation note* Diagnosis Tobacco dependency- Primary [...] Anxiety state, unspecified documented in this encounter [facility] HealthcareEvaluation note* Diagnosis Onset Date Resolution Status Admit Date Non-small cell lung cancer acute November 14, 2024 11:18[facility] Work Phone: Evaluation note* Diagnosis Tobacco dependency- [...] essential hypertension Screening mammogram for breast cancer Alteration of awareness documented in this encounter [facility]* Diagnosis Tobacco dependency- Primary Tobacco use disorder Hyperlipidemia, unspecified hyperlipidemia type (CMS/HCC) H/O: CVA (cerebrovascular accident) Primary hypertension Unspecified essential hypertension Moderate COPD (chronic obstructive pulmonary disease) (HCC) RLS (restless legs syndrome) Restless legs syndrome (RLS) Peripheral polyneuropathy Screening mammogram for breast cancer Medicare annual wellness visit, subsequent RLS (restless legs syndrome)- Primary Restless legs syndrome (RLS) Peripheral polyneuropathy Moderate COPD (chronic obstructive pulmonary disease) (HCC) Hyperlipidemia, unspecified hyperlipidemia type (CMS/HCC) Primary hypertension Unspecified essential hypertension Chronic abdominal pain Abdominal pain, unspecified site 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 Primary hypertension Unspecified essential hypertension 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 Mass of left lung Primary hypertension Unspecified essential hypertension Syncope and collapse Mass of left lung- Primary Mass of left lung- Primary Primary hypertension- Primary Unspecified essential hypertension Moderate COPD (chronic obstructive pulmonary disease) (HCC) Hyperlipidemia, unspecified hyperlipidemia type (CMS/HCC) Gastroesophageal reflux disease without esophagitis Esophageal reflux H/O: CVA (cerebrovascular accident) Wellness examination History of colon polyps Chronic abdominal pain Abdominal pain, unspecified site Primary hypertension- Primary Unspecified essential hypertension Hyperlipidemia, unspecified hyperlipidemia type (CMS/HCC) Mass of left lung- Primary Cerebrovascular accident (CVA), unspecified mechanism (CMS/HCC)- Primary Malignant neoplasm of unspecified part of left bronchus or lung (CMS/HCC) Adenocarcinoma of left lung (CMS/HCC) Mixed hyperlipidemia Mixed hyperlipidemia Tobacco dependency Tobacco use disorder Peripheral polyneuropathy Primary hypertension Unspecified essential hypertension Screening mammogram for breast cancer Gastroesophageal reflux disease, unspecified whether esophagitis present- Primary Infrarenal abdominal aortic aneurysm (AAA) without rupture (CMS/HCC) Chronic abdominal pain Abdominal pain, unspecified site Dysuria Epigastric pain Abdominal pain, epigastric Tobacco dependency Tobacco use disorder documented in this encounter [facility] HealthcareHistory and physical note Author Mikhail Moon [facility] March 25, 2024 10:35am Note Date/Time March 25, 2024 10:35am [facility] [address] [place] [address] Gastroenterology H&P Signed Patient: Bhupendra Rubi MR#: [id number] : 1950 Acct:[id number] Age/Sex: 73 / F Adm Date: 4 Loc: Room: Type: [facility] Attending Dr: Mikhail Moon MD Copies [...] signed by Mikhail Moon MD> 03/25/24 1035 [facility] Work Phone: History general Narrative - Reported* Type Description Date Medical History GERD Medical History hypercholesterolemia Surgical History cholecystectomy Surgical History tubal ligation Surgical History shoulder surgery Hospitalization History see above [employer] Other History general Narrative - Reported* Type Description Date Medical History GERD Medical History hypercholesterolemia Medical History Carotid stenosis Surgical History cholecystectomy Surgical History tubal ligation Surgical History shoulder surgery Hospitalization History see above [employer] Other Hospital Discharge instructions No data available for this section [facility] Additional Instructions Stop your blood pressure medicine. Follow-up with your doctor without fail for reevaluation of blood pressure and left lung mass.[facility] Work Phone: Hospital Discharge instructionsAmbulatory Orders* Referral to General Surgery Location: None [facility] Work Phone: InstructionsNot on filedocumented in this encounter [facility]InstructionsNot on filedocumented in this encounter [facility] SystemInstructionsNot on filedocumented in this encounter [facility] System[facility] note No data available for this section [facility] Summary Purpose Family History Relationship Condition Age [...] 142023 1:25pm New Patient, Lung Cancer July 28, 2 025 1:45pm BENIGN NEOPLASM OF COLON July 28 025 1:50pm Reason for Visit Admit Date High grade dysplasia in colonic adenoma May 11, 2024 1:25pm History of hypotension May 11 1:25pm Mass of upper lobe of left lung May 11, 2024 1:25pm Non-small cell lung cancer July 28, 2024 1:45pm Chief Complaint Admit Date New Patient, Lung Cancer July 28 025 1:45pm Lung Cancer August 04, 2024 [...] Admit Date New Patient, Lung Cancer July 28 025 1:45pm Lung Cancer August 04, 2024 [...] DATE CREATED AUTHOR AUTHOR'S ORGANIZ ATION 03/03/2024 [facility] DATE CREATED AUTHOR AUTHOR'S ORGANIZ ATION 12/17/2024 [facility] DATE CREATED AUTHOR AUTHOR'S ORGANIZ ATION 12/24/2024 [facility] dical Specialists EPIC DATE CREATED AUTHOR AUTHOR'S ORGANIZ ATION 12/25/2024 [facility] y[facility] Patient Care team informatio n (unrecognized section and content) Team Status: Active Member Role Status Dates NON STAFF Primary Care Provider Active Team Status: Active Member Role Status Dates Nitza Russell MD Other Provider Active Start: 2024 Mikhail Moon MD Referring Provider Active Start: August 29, 2024 Chris Singh NP-C Primary Care Provider Ac tive Start: August 29, 2024 Judit Martini MD Attending Provider Active Start: August 29, 2024 Team Status: Active Member Role Status Dates Nitza Russell MD Other Provider Active Start: 2024 Mikhail Moon MD Referring Provider Active Start: September 05, 2024 Chris Singh NP-C Primary Care Provider Ac tive Start: September 05, 2024 Judit Martini MD Attending Provider Active Start: September 05, 2024 Team Status: Active Member Role Status Dates Mikhail Moon MD Referring Provider Active Start: September 12, 2024 SANDRA HintonC Primary Care Provider Ac tive Start: September [...] 14, 2024 End: November 14, 2024 Tammie Thomas OUMAR Shah Attending Provider Acti ve Start: November 14, 2024 End: November 14, 2024 Team Status: Active Member Role Status Dates Mikhail Moon MD Referring Provider Active Start: November 14, 2024 Chris Singh PLATER PRODUCTION-C Primary Care Provider Ac tive Start: November 14, 2024 Judit Martini MD Attending Provider Active Start: November 14, 2024 Team Status: Active Member Role Status Dates NON STAFF Primary Care Provider Active Team Status: Inactive Member Role Status Dates Judit Martini MD Attending Provider Active Start: July 28, 2024 End: July 28, 2024 Chris Singh PLATER PRODUCTION-C Primary Care Provider Ac tive Start: July 28, 2024 End: July 28, 2024 Eryn Lundberg MD Referring Provider Active St art: July 28, 2024 End: July 28, 2024 Team Status: Active Member Role Status Dates Nitza Russell MD Other Provider Active Start: 2024 Mikhail Moon MD Referring Provider Active Start: August 04, 2024 Chris Singh PLATER PRODUCTION-C Primary Care Provider Ac tive Start: August 04, 2024 Judit Martini MD Attending Provider Active Start: August 04, 2024 Team Status: Active Member Role Status Dates Nitza Russell MD Other Provider Active Start: 2024 Mikhail Moon MD Referring Provider Active Start: August 06, 2024 Chris Singh NP-C Primary Care Provider Ac tive Start: August 06, 2024 Natividad Correa MD Attending Provider Active Start: August 06, 2024 Team Status: Active Member Role Status Dates Nitza Russell MD Other Provider Active Start: julian 2024 Mikhail Moon MD Referring Provider Active Start: August 12, 2024 Chris Singh NP-C Primary Care Provider Ac tive Start: August 12, 2024 Judit Martini MD Attending Provider Active Start: August 12, 2024 Team Status: Active Member Role Status Dates Nitza Russell MD Other Provider Active Start: 2024 Mikhail Moon MD Referring Provider Active Start: August 29, 2024 Chris Singh NP-C Primary Care Provider Ac tive Start: August 29, 2024 Judit Martini MD Attending Provider Active Start: August 29, 2024 Team Status: Active Member Role Status Dates Nitza Russell MD Other Provider Active Start: 2024 Mikhail Moon MD Referring Provider Active Start: September 05, 2024 Chris Singh NP-C Primary Care Provider Ac tive Start: September 05, 2024 Judit Martini MD Attending Provider Active Start: September 05, 2024 Team Status: Active Member Role Status Dates Mikhail Moon MD Referring Provider Active Start: September 12, 2024 Chris Singh NP-C Primary Care Provider Ac tive Start: September [...] Active Start: October 10, 2024 Chris Singh NP-C Primary Care Provider Ac tive Start: October 10, 2024 Judit Martini MD Attending Provider Active Start: October 10, 2024 Team Status: Active Member Role Status Dates Chris Singh NP-C Primary Care Provider Ac tive Team Status: [...] 2024 End: July 28, 2024 Chris Singh NP-C Primary Care Provider Ac tive Start: July 28, 2024 End: July 28, 2024 Eryn Lundberg MD Referring Provider Active St art: July 28, 2024 End: July 28, 2024 Team Status: Active Member Role Status Dates Shaikh Aung MD Primary Care Provider Active Start: July 28, 2024 Nitza Russell MD Attending Provider Active Start: July 28, 2024 Mikhail Moon MD Referring Provider Active Start: July 28, 2024 Comfort Station Supervisor Relationship Specialty Start Date End Date Chris Singh, TECHNICAL DATA ANALYST-ATOMIC SPECTROSCOPIST [address] [place] [address] PCP - General Nurse Practitioner 06/13/24 [place] [place] Supervisor Relationship Specialty Start Date End Date Charanjit Chen MD [address] [place] [address] PCP - General Family Medicine 02/11/24 Chris Singh NP [address] [place] [address] Nurse Practitioner Family Medicine 02/11/24 Anne Hartley [...] Personnel Name: SHAIKH HORAN MD Address: Address: [address] [place] [id number] Team Status: Active Member Role Status Angelica Horan MD Primary Care Provider Active Team Status: Inactive Member Role Status Angelica Horan MD Primary Care Provider Active Start: December 27, 2023 End: December 27, 2023 Bernardino Bhakta MD Emergency Provider Active St art: December 27, 2023 End: December 27, 2023 [place] [place] Supervisor Relationship Specialty Start Date End Date Shaikh Horan MD PCP - General Internal Medicine 01/26/23 Shaikh Horan MD [address] [place] [address] PCP - Devoted 04/12/23 Personnel Name: SHAIKH HORAN Address: Address: [address] [place] [address] REASON FOR VISIT (unrecogniz ed section and content) Reason Onset Date Comments Med Refill 05/02/2024 Reason Comments Consult Colon polyp ref'd by Red Specialty Diagnoses / Procedures Referred By Contac t Referred To Contact General Surgery Diagnoses Benign neoplasm of colon, unspecified Procedures MS OFFICE/OUTPATIENT NEW HIGH MDM 60 MINUTES Mikhail Moon MD [address] [facility] [address] [place] [address] Phone: tel: fax: [facility] [address] [facility] [address] [place] [address] Phone: tel: fax: Referral ID Status Reason Start Date Expiration Date V isits Requested Visits Authorized [id number] Closed Specialty Services Required 04/11/2024 10/08/2024 1 1 Reason Comments Follow-up Reason Comments Follow-up 1mo F/U Reason Onset Date Comments Hospital Follow-up 06/21/2024 Reason Onset Date Comments lacosamide (VIMPAT) 07/18/2024 Reason Comments Medicare Annual Wellness Visit [facility] t Reason Comments Seizures Specialty Diagnoses / Procedures Referred By Contac t Referred To Contact Neurology Diagnoses Other seizures (CMS/HCC) Procedures MS OFFICE/OUTPATIENT NEW LOW MDM 30 MINUTES Eryn Lundberg MD [address] [place] [address] Phone: tel: fax: Romel Sampson MD [address] [place] [address] Phone: tel: fax: Referral ID Status Reason Start Date Expiration Date V isits Requested Visits Authorized [id number] Closed Consult and Treat 07/22/2024 01/18/2025 1 1 Reason Comments ER Follow-up Reason Onset Date Comments referral 12/19/2024 Goals (unrecognized section and content) Goals may [...] BE BASED ON THE PRIMARY CLINICAL RECORDS. [facility] [employer] [facility]formerly [employer] [facility]. provides no warranty or guarantee of the accuracy or completeness of information in this document.
== END 2024-12-29 09:05 | disposition home or self-care (01) ==
LOC: CT 09:04
PROVIDERS: PCP Nurse Practitioner; Visit Provider Nurse Practitioner
DX: I71.43 Infrarenal abdominal aortic aneurysm, without rupture (principal); R10.9 Unspecified abdominal pain; G89.29 Other chronic pain; N28.1 Cyst of kidney, acquired
CPT/HCPCS: 74177; Q9967

== ENCOUNTER 2025-02-28 13:28 | Outpatient (OUT) | payer MEDICARE, SELFPAY ==
--- OUTSIDE RECORDS SUMMARY | 2025-02-21 13:25 | XMS_ITS | Encounter Summary ---
Author Organization [facility] Address [address] [place] [address] Care Team Providers Care Sat Math Tutor Name Role Phone Charanjit Chen MD Primary Care Provider [phone] Henok Hendrix MA Unavailable [phone] Wendy Burden NP Unavailable [phone] Encounter Details Date Type Department Care Team (Late st Contact Info) Description 02/21/2025 1:25 PM EDT Office Visit [facility] [address] [facility] [address] [place] [address] Magui Juan, CONTROLS PROJECT ENGINEER-LIBRARY MEDIA TECHNICIAN [address] [facility] [address] [place] [address] Inflamed seborrheic keratosis Social History Tobacco Use Types Packs/Day Years [...] How often do you attend chur or muslim services? Never 12/08/2023 Do you belong to any clubs o r organizations such as mormon groups, unions, fraternal or athletic groups, or [...] Recorded Patient Health Questionnaire-2 Score 1 08/02/2024 [facility] - Occupational Stress Questionnaire Answer Date [...] as of this encounter Progress Notes * Magui Juan, CONTROLS PROJECT ENGINEER-LIBRARY MEDIA TECHNICIAN - 02/21/2025 1:25 PM EDT Rash Location: All over - Most concerned with spots on the back, and the vaginal area Duration: Roughly a year Quality: Itchy Modifying Factors: Aggravating Associated symptoms: Rough bumps Treatments tried: None New patient All pertinent medical history, medications, and allergies were reviewed. General Exam: alert, oriented to person, place, and time, normal affect, well appearing A focused exam completed based on patient reported problems, see below: Skin Exam 1. INFLAMED SEBORRHEIC KERATOSIS (6) Left Flank (3), Left Hip (2), Right Suprapubic Area Inflamed seborrheic keratoses: pink and brown stuck on verrucous scaly papule with surrounding erythema and bloody crust. The patient was informed that symptomatic seborrheic keratoses are benign growths that become inflamed, itchy, tender, traumatized, caught on clothing, or bleed. Symptomatic lesions can be treated with cryotherapy or curretage. Thicker lesions treated with cryotherapy may require more than one treatment. The patient was instructed to notify the office if abnormal redness or tenderness develops atthe treatment site. Cryotherapy today, see procedure note. Diagnosis: Inflamed seborrheic keratosis Indication: Inflamed Consent: Verbal consent was obtained and risks were discussed, including, but not limited to risks of scarring, darker or billing coordinator pigmentary changes, recurrence, incomplete removal and infection. Method: Liquid nitrogen was used to treat the lesion(s) with two 5-10 second freeze-thaw cycles Number of lesions treated: 6 Post-procedure instructions: Instructions were given orally and in writing. The office will be contacted if the lesion fails to resolve despite treatment, or if a side effect develops such as abnormal crusting, scabbing, redness or tenderness Cryotherapy, skin lesion - Left Flank (3), Left Hip (2), Right Suprapubic Area Next Visit: prn for any new/changing lesions documented in this encounter Plan of Treatment Upcoming Encounters Date Type Department Care Team (Late st Contact Info) Description 03/07/2025 4:15 PM EDT [facility] [address] [facility] [address] [place] [address] Aj Lockwood MD [address] [facility] [address] [place] [address] 03/23/2025 9:05 AM EDT [facility] [address] [facility] [address] [place] [address] Magui Juan APRN-CNP [address] [facility] [address] [place] [address] 04/11/2025 10:15 AM EDT Office Visit [facility] [address] [place] [address] Aj Lockwood MD [address] [facility] [address] [place], [place] [id number] documented as of this encounter Procedures Procedure Name Priority Date/Time Associated Diagnosis Comments CRYOTHERAPY SKIN LESION Routine 02/22/20 1:27 PM EDT Inflamed seborrheic keratosis documented in this encounter Results * Cryotherapy, skin lesion (02/21/2025 1:27 PM EDT) us Magui Juan CONTROLS PROJECT ENGINEER-LIBRARY MEDIA TECHNICIAN DERM PROCEDURE ORDERAB LES Final Result documented in this encounter Visit Diagnoses Diagnosis Inflamed seborrheic keratosis documented in this encounter Additional Health Concerns Assessment Noted Time PHQ-9 Depression Total Score: 10 025 11:00 AM EST A fall risk assessment has been complete d for the patient 12/08/2023 9:26 AM EDT documented as of this encounter Care Teams Sat Math Tutor Relationship Specialty Start Date End Date Charanjit Chen MD [address] [place] [phone] PCP - General Family Medicine 02/11/24 Wendy Burden NP [address] [place] [address] PCP - Lacy MARIE 01/10/25 Henok Hendrix MA [address] [place] [address] Family Medicine 05/24/24 documented as of this encounter
--- OUTSIDE RECORDS SUMMARY | 2025-02-22 11:30 | XMS_ITS | Encounter Summary ---
Author Organization [facility] Address [address] [place] [address] Care Team Providers Care Roller Coaster Operator Name Role Phone Charanjit Chen MD Primary Care Provider Henok Hendrix MA Unavailable [phone] Wendy Burden NP Unavailable [phone] Reason for Referral * Medications - Closed Specialty Diagnoses / Procedures Referred By Dionne t Referred To Contact Diagnoses Chronic abdominal pain Wendy Burden NP [address] [place] [address] Phone: tel: fax: Referral ID Status Reason Start Date Expiration Date Visits Re quested Visits Authorized [id number] Closed 1 1 Reason for Visit * Reason Comments Hospital Follow-up Encounter Details Date Type Department Care Team (Late st Contact Info) Description 02/22/2025 11:30 AM EDT Office Visit [facility] [address] [place] [address] Wendy Burden NP [address] [place] [address] Chronic abdominal pain (Primary Dx); Seizure (HCC); Cerebrovascular accident (CVA), unspecified mechanism (HCC); Mass of left lung; Adenocarcinoma of left lung (HCC); Infrarenal abdominal aortic aneurysm (AAA) without rupture; Syncope and collapse Social History Tobacco Use Types Packs/Day Years [...] How often do you attend chur or oriental orthodox services? Never 12/08/2023 Do you belong [...] Score 1 08/02/2024 [facility] - Occupational Stress Questionnaire Answer [...] Sign Reading Time Taken Comments Blood Pressure 98/50 02/22/2025 10:50 AM EDT Pulse 88 02/22/2025 10:50 AM EDT Temperature 36.7 C (98.1 F) 02/22/2025 10:50 AM EDT Respiratory Rate - - Oxygen Saturation 94% 02/22/2025 10: 50 AM EDT Inhaled Oxygen Concentration - - Weight 62.5 kg (137 lb 12.8 oz) 025 10:50 AM EDT Height - - Body Mass Index 25.2 02/07/2025 9:38 AM EDT documented in this encounter Patient Instructions * Patient Instructions* Wendy Burden NP - 02/22/2025 11:30 AM EDT I will give you a ONE TIME script for pain meds: One pill daily documented in this encounter Progress Notes * Wendy Burden NP - 02/22/2025 4:58 PM EDTAssociated Problem(s): Syncope and collapse Likely related to overall deconditioning, dehydration, extreme heat conditions Urged her to remain well hydrated * Wendy Burden NP - 02/22/2025 4:57 PM EDTAssociated Problem(s): Infrarenal abdominal aortic aneurysm (AAA) without rupture Has seen vascular in the past * Wendy Burden NP - 02/22/2025 4:56 PM EDTAssociated Problem(s): Adenocarcinoma of left lung (HCC) Continue with oncology * Wendy Burden NP - 02/22/2025 4:56 PM EDTAssociated Problem(s): Chronic abdominal pain DD: constipation, GERD, ulcer Hx colon cancer Labs essential unremarkable CT: no acute findings, does have AAA, measured approx 3.4 (01/04) Pt is frustrated as she continues to have pain and nothing is being done about this She did see GI OARRS reviewed Will give 1 month supply of meds until seen by new PCP I explained that while I do believe she is having pain, I cannot find a source to the pain She will need to see GI as scheduled * Wendy Burden NP - 02/22/2025 4:55 PM EDTAssociated Problem(s): CVA (cerebral vascular accident) (HCC) recent hospitalization at [facility] around 10/04/24, was also sent to [...] when she sees neurology that there is nothingwrong, and said the same when in hospital. I explained to her that when she has had repeat scans, they are not finding NEW strokes, however her symptoms could be TIA's, and we discussed what that means etc. She is now under the care of Dr Lockwood * Wendy Burden NP - 02/22/2025 4:54 PM EDTAssociated Problem(s): Seizure (HCC) Under the care of neurology * Wendy Burden NP - 02/22/2025 11:30 AM EDT Images from the original note were not included. Mirta Mitchell is a 74 y.o. female presents with chief complaint of Hospital Follow-up HPI: Here for hospital follow up Passed out at [place]: see ER notes for HPI I have reviewed all notes, as well MRI CT and discharge notes No new meds Her primary complaint remains her abd pain. Pain she describes as constant, bilat sides. No better or worse with eating She has had numerous CT's has seen GI as well as had scopes. She has dizziness and nausea as well She feels that her AAA is the cause of her pain. She has seen vascular as well She becomes quite frustrated with discussions about not finding an identifiable cause to her pain, she was given opioid pain med when she was discharged she does report this was helpful I did explain that while I have seen her multiple times over the last few months, it was due to us waiting on replacement provider. Dr Fontenot will be starting in a few weeks and we will schedule a fu appt with her SUBJECTIVE: MEDICATIONS: Current Outpatient Medications Medication Instructions albuterol HFA 90 mcg/act inhaler 2 puffs, Inhalation, Every 4 hours PRN apixaban (ELIQUIS) 5 mg, Oral, 2 times daily atorvastatin (LIPITOR) 80 mg, Oral, Daily Lzhfucc-Cxwbvnrebpy-Hnrfnhyvin (Breztri Aerosphere) 160-9-4.8 MCG/ACT aerosol 2 puffs, Inhalation, 2 times daily Carafate 1 g gabapentin (NEURONTIN) 300 mg, Oral, 3 times daily hyoscyamine (Anaspaz,Levsin) 0.125 MG tablet Dissolve 2 (TWO) tablets under tongue FOUR times dailyas needed for spasm lacosamide (VIMPAT) 100 mg, Oral, 2 times daily lamoTRIgine (LAMICTAL) 150 mg, Oral, Daily losartan (COZAAR) 25 mg, Oral, Daily oxyCODONE-acetaminophen (Percocet) 5-325 MG tablet 1 tablet, Oral, Daily PRN pantoprazole (PROTONIX) 40 mg, Oral, 2 times daily, Do not crush, chew, or split. traZODone (DESYREL) 100 mg, Oral, Nightly Trulance tablet tablet 1 tablet, Daily ALLERGIES: No Known Allergies REVIEW OF SYMPTOMS: Review of Systems Constitutional: Negative for appetite change, chills and fever. HENT: Negative for congestion, ear pain and sore throat. Eyes: Negative for pain, discharge, redness and visual disturbance. Respiratory: Negative for cough, shortness of breath and wheezing. Cardiovascular: Negative for chest pain, palpitations and leg swelling. Gastrointestinal: Positive for abdominal pain. Negative for blood in stool, constipation, diarrhea,nausea and vomiting. Genitourinary: Negative for difficulty urinating, dysuria and frequency. Musculoskeletal: Negative for arthralgias, back pain, joint swelling and myalgias. Skin: Negative for rash and wound. Neurological: Positive for dizziness and syncope. Negative for tremors, seizures and headaches. Psychiatric/Behavioral: Negative for behavioral problems, [...] in her son. OBJECTIVE: Visit Vitals BP 98/50 (BP Location: Left arm, Patient Position: Sitting, BP Cuff Size: Adult long) Pulse 88 Temp 98.1 ??F (Temporal) Wt 137 lb 12.8 oz SpO2 94% BMI 25.20 kg/m?? OB Status Hysterectomy Smoking Status Former BSA 1.65 m?? Physical Exam Vitals and nursing note reviewed. Constitutional: General: She is not in acute distress. Appearance: Normal appearance. HENT: Head: Normocephalic and atraumatic. Right Ear: External ear normal. Left Ear: External ear normal. Nose: Nose normal. Mouth/Throat: Mouth: Mucous membranes are moist. Eyes: Extraocular Movements: Extraocular movements intact. Conjunctiva/sclera: Conjunctivae normal. Neck: Vascular: No carotid bruit. Cardiovascular: Rate [...] mass. Tenderness: There is no abdominal tenderness (generalized, but non specific). Musculoskeletal: General: Normal range of motion. Cervical back: Normal range of motion and neck supple. Right lower leg: No edema. Left lower leg: No edema. Skin: General: Skin is warm and dry. Capillary Refill: Capillary refill takes 2 to 3 seconds. Findings: No rash. Neurological: General: No focal deficit present. Mental Status: She is alert and oriented to person, place, and time. Comments: dysarthria Psychiatric: Mood and Affect: Mood normal. Behavior: Behavior normal. Thought Content: Thought content normal. Judgment: Judgment normal. ASSESSMENT AND PLAN: Follow up in about 4 weeks (around 03/22/2025). Problem List Items Addressed This Visit Infrarenal abdominal aortic aneurysm (AAA) without rupture Has seen vascular in the past Chronic abdominal pain - Primary DD: constipation, GERD, ulcer Hx colon cancer Labs essential unremarkable CT: no acute findings, does have AAA, measured approx 3.4 (01/04) Pt is frustrated as she continues to have pain and nothing is being done about this She did see GI OARRS reviewed Will give 1 month supply of meds until seen by new PCP I explained that while I do believe she is having pain, I cannot find a source to the pain She will need to see GI as scheduled Relevant Medications oxyCODONE-acetaminophen (Percocet) 5-325 MG tablet RESOLVED: Mass of left lung Syncope and collapse Likely related to overall deconditioning, dehydration, extreme heat conditions Urged her to remain well hydrated Adenocarcinoma of left lung (HCC) Continue with oncology CVA (cerebral vascular accident) (HCC) recent hospitalization at [facility] around 10/04/24, was also sent to [...] when she sees neurology that there is nothingwrong, and said the same when in hospital. I explained to her that when she has had repeat scans, they are not finding NEW strokes, however her symptoms could be TIA's, and we discussed what that means etc. She is now under the care of Dr Lockwood Seizure (HCC) Under the care of neurology documented in this encounter Plan of Treatment Upcoming Encounters Date Type Department Care Team (Late st Contact Info) Description 03/07/2025 4:15 PM EDT Office Visit [facility] Neurology [address] [place] [address] Aj Lockwood MD [address] [facility] [address] [address] 03/23/2025 9:05 AM EDT Office Visit [facility] [address] [place] [address] Magui Juan, INSPECTOR GENERAL-MEDIA CENTER DIRECTOR SCHOOL [address] [place] [address] 04/11/2025 10:15 AM EDT Office Visit [facility] Neurology [address] [place] [address] Aj Lockwood MD [address] [facility] [address] [address] documented as of this encounter Visit Diagnoses Diagnosis Chronic abdominal pain- Primary Abdominal pain, unspecified site Seizure (HCC) Other convulsions Cerebrovascular accident (CVA), unspecified mechanism (HCC) Mass of left lung Adenocarcinoma of left lung (HCC) Infrarenal abdominal aortic aneurysm (AAA) without rupture Syncope and collapse documented in this encounter Additional Health Concerns Assessment Noted Time PHQ-9 Depression Total Score: 10 025 11:00 AM EST A fall risk assessment has been complete d for the patient 12/08/2023 9:26 AM EDT documented as of this encounter Care Teams Roller Coaster Operator Relationship Specialty Start Date End Date Charanjit Chen MD [address] [place] [address] PCP - General Family Medicine 02/11/24 Wendy Burden NP [address] [place] [address] PCP - Lacy MARIE 01/10/25 Henok Hendrix MA [address] [place] [address] Family Medicine 05/24/24 documented as of this encounter
--- OUTSIDE RECORDS SUMMARY | 2025-02-28 13:31 | XMS_ITS | Clinical Summary ---
Author Organization [facility] Address [address] [place] [address] Care Team Providers Care Welt Slasher Name Role Phone Unavailable Primary Care Provider [...]
--- OUTSIDE RECORDS SUMMARY | 2025-02-28 13:31 | XMS_ITS | Encounter Summary ---
Author Organization [facility] Address [address] [place] [address] Care Team Providers Care Fuel House Attendant Name Role Phone Charanjit Chen MD Primary Care Provider Betty Singh FLARE MAKER Unavailable Henok Hendrix MA Unavailable [phone] Wendy Burden FLARE MAKER Unavailable [phone] Encounter Details Date Type Department Care Team (Late st Contact Info) Description 06/15/2024 Orders Only [facility] [address] [place] [address] Shaikh Horan MD [address] [facility] [place] [address] Social History Tobacco Use Types Packs/Day Years [...] How often do you attend chur or zoroastrianism services? Never 12/08/2023 Do you belong to [...] Recorded Patient Health Questionnaire-2 Score 0 03/24/2024 [facility] of Occupat ional Health - Occupational Stress [...] 4:15 PM EDT Office Visit [facility]rology [address] [place] [address] Aj Lockwood MD [address] [facility] [address] [place], [place] [id number] 03/23/2025 9:05 AM EDT Office Visit [facility]IDA [facility] [address] [place] [address] Magui Juan, JOURNEYMAN MACHINIST-QUALITY ASSURANCE SUPERVISOR [address] [place] [address] 04/11/2025 10:15 AM EDT Office Visit [facility] [address] [place] [address] Aj Lockwood MD 5319 [facility] [address] [place], [place] [id number] documented as of this encounter Procedures Procedure Name Priority Date/Time Associated Diagnosis Comments CT HEAD WO IV CONTRAST Routine 06/13/2024 7:51 AM EST documented in this encounter Results * CT head wo IV contrast (06/13/2024 7:51 AM EST) Anatomical Region Laterality Modality Head, Neck Computed Tomogra phy Shaikh Aung FARFAN IMG CT PROCEDURES Final Result documented in this encounter Visit Diagnoses Not on filedocumented in this encounter Additional Health Concerns Assessment Noted Time PHQ-9 Depression Total Score: 5 07/09/20 23 2:09 PM EST A fall risk assessment has been complete d for the patient 12/08/2023 9:26 AM EDT documented as of this encounter Care Teams Fuel House Attendant Relationship Specialty Start Date End Date Charanjit Chen MD [address] [place] [address] PCP - General Family Medicine 02/11/24 Wendy Burden NP [address] [place] [address] PCP - Lacy MARIE 01/10/25 Betty Singh NP [address] [place] [address] Nurse Practitioner Family Medicine 02/11/24 11/20/24 Henok Hendrix MA [address] [place] [address] Family Medicine 05/24/24 documented as of this encounter
--- OUTSIDE RECORDS SUMMARY | 2025-02-28 13:31 | XMS_ITS | Encounter Summary ---
Author Organization [facility] Address [address] [place] [address] Care Team Providers Care Radio Tester Name Role Phone Flower Stokes LPN Unavailable Unavailable Charanjit Chen MD Primary Care Provider [phone] Betty Singh NETWORK TECHNICAL ANALYST Unavailable [phone] Anne Hartley FACILITIES SUPERVISOR Unavailable Henok Hendrix MA Unavailable [phone] Wendy Burden NP Unavailable [phone] Encounter Details Date Type Department Care [...] Recorded Patient Health Questionnaire-2 Score 0 02/22/2024 [facility] of Occupat ional Health - [...] 4:15 PM EDT Office Visit NEREIDA [facility] Neurology [address] [facility] [address] [place] [address] Aj Lockwood MD 6009 [facility] [address] [place] [address] 03/23/2025 9:05 AM EDT Office Visit [facility]IDA [facility] [address] [facility] [address] [place] [address] Magui Juan, VOCATIONAL CASE MANAGER-PERSONNEL SCHEDULER [address] [facility] [address] [place] [address] 04/11/2025 10:15 AM EDT Office Visit [facility] [place] [facility] [address] [place] [address] Aj Lockwood MD 1597 [facility] [address] [place] [address] documented as of this encounter Procedures Procedure [...] PM EDT Narrative 03/09/2024 2:49 PM EDT The [address] [address] XRay Report Signed Patient: BHUPENDRA MIRANDA MR#: [id number] : 1950 Acct:[id number] Age/Sex: 73 / F ADM Date: 03/09/24 Loc: SURGOUT Attending Dr: Leigh Thompson D.O. Ordering Physician: Leigh Thompson D.O. Date of Service: 03/09/24 Procedure(s): XR chest 1V Accession Number(s): [id number] cc: BETTY SINGH; Leigh Thompson D.O. The [address] [address] Patient Name: BHUPENDRA MIRANDA MRN: [id number] date: 1950 Sex: F Assigned Patient Location: SURGOUT Current Patient Location: SURGOUT Accession/Order Number: [id number] Exam Date: 03/09/2024 14:00 Report Date: 03/09/2024 [...] Signed By: 03/09/24 1449 DD/ 1447 TD/TT: Tabulating Machine Mechanic: Procedure Note Radiology, Radiologist, MD - 03/09/2024 [place] [address] XRay Report Signed Patient: BHUPENDRA MIRANDA MMR#: [id number] : 1950cct:[id number] Age/Sex: 73 / FADM Date: 03/09/24 Loc: SURGOUT Attending Dr: Leigh Thompson D.O. Ordering Physician: Leigh Thompson D.O. Date of Service: 03/09/24 Procedure(s): XR chest 1V Accession Number(s): [id number] cc: BETTY SINGH; Leigh Thompson D.O. The [address] [address] Patient Name: BHUPENDRA MIRANDA MRN: [id number] date: 1950 Sex: F Assigned Patient Location: SURGOUT Current Patient Location: SURGOUT Accession/Order Number: [id number] Exam Date: 03/09/2024 14:00 Report Date: 03/09/2024 [...] Jeff Melton M.D. Signed By:03/09/24 1449 DD/ 144 TD/TT: Tabulating Machine Mechanic: Generic External Data Provider [facility] Final Result * COCCIDIOIDES ABS, IGG/IGM, EIA (03/09/2024 2:39 PM EDT) COCCIDABS.1 0.5 . EIA Units [facility] Comment: Negative <1.0 Indeterminate 1.0-1.4 Positive >1.4 COCCIDABS.2 0.0 . EIA Units [facility] Comment: Negative <1.0 Indeterminate 1.0-1.4 Positive >1.4 [facility]formed at: [facility] [address] [place] [id number] Professor Of Forestry: Andrea Stevens MD, Phone: [phone] 03/09/2024 2:39 PM EDT 03/09/2024 2:43 PM EDT Narrative [facility] - 03/12/2024 8:08 PM EDT Generic External Data Provider LAB BLOOD ORDERAB LES Final Result [facility] * HISTOPLASMA CAPSULATUM ABS. (03/09/2024 2:39 PM EDT) HISTOPLASMA MYCELIAL CF AB. Negative Neg:<1:2 [facility] HISTOPLASMA YEAST CF AB Negative Neg:<1:2 [facility] Comment: Performed at: [address] [id number] Professor Of Forestry: Erick Khalil MD, Phone: [phone] 03/09/2024 2:39 PM EDT 03/09/2024 2:43 PM EDT Narrative [facility] - 03/13/2024 2:07 PM EDT Generic External Data Provider LAB BLOOD ORDERAB LES Final Result Performing Organization Address City/[facility] Co de Phone Number [facility] * BLASTOMYCES ABS, QN, DID (03/09/2024 2:39 PM EDT) BLASTOMYCES ABS, QN, DID Negative Neg:<1:1 [facility] Comment: Performed at: [address] [id number] Professor Of Forestry: Erick Khalil MD, Phone: [phone] 03/09/2024 2:39 PM EDT 03/09/2024 2:43 PM EDT Narrative [facility] - 03/13/2024 2:07 PM EDT Generic External Data Provider LAB BLOOD ORDERAB LES Final Result Performing Organization Address City/[facility] Co de Phone Number [facility] documented in this encounter Visit Diagnoses Not on filedocumented in this encounter Additional Health Concerns Assessment Noted Time PHQ-9 Depression Total Score: 5 07/09/20 23 2:09 PM EST A fall risk assessment has been complete d for the patient 12/08/2023 9:26 AM EDT documented as of this encounter Care Teams Radio Tester Relationship Specialty Start Date End Date Charanjit Chen MD [address] [place] [address] PCP - General Family Medicine 02/11/24 Wendy Burden NP [address] [place] [address] PCP - Lacy MARIE 01/10/25 Flower Stokes LPN Licensed Practical Nurse Family Medicine 11/26/23 Betty Singh NP [address] [place] [address] Nurse Practitioner Family Medicine 02/11/24 11/20/24 Anne Hartley LPN [address] [place] [address] Licensed Practical Nurse Family Medicine 03/25/2405/13 Henok Hendrix, CYNTHIA [address] [place] [address] Family Medicine 05/24/24 documented as of this encounter
--- OUTSIDE RECORDS SUMMARY | 2025-02-28 13:31 | XMS_ITS | Encounter Summary ---
Author Organization [facility] Address [address] [place] [address] Care Team Providers Care Refining Still Operator Name Role Phone Charanjit Chen MD Primary Care Provider Henok Hendrix MA Unavailable [phone] Wendy Burden NP Unavailable [phone] Encounter Details Date Type Department Care Team (Late st Contact Info) Description 02/24/2025 Patient Outreach [facility] [address] [place] [address] Henok Hendrix MA [address] [place] [address] Social History Tobacco Use Types Packs/Day Years [...] often do you attend chur ch or taoism services? Never 12/08/2023 Do you belong to any clubs o r organizations such as latter day groups, unions, fraternal or athletic groups, or [...] Recorded Patient Health Questionnaire-2 Score 1 08/02/2024 [facility] of Occupat ional Health - Occupational [...] a jail (including now)? No 12/08/2023 Comments No Sex and Gender Information Value Date Recorded Sex Assigned at Not on file Legal Sex Female 12:29 PM EDT Gender Identity Not on file Sexual Orientation Not on file documented as of this encounter Progress Notes * Henok Hendrix MA - 02/24/2025 2:21 PM EDT Pt contacted for weekly outreach and she is doing well. No issues at this time. She hasn't had anymore fainting episodes and she is grateful for that. Pt recently say PCP and is scheduled to see Dr Lockwood on 03/07 and she will have the testing completed so they can go over everything at that visit. documented in this encounter Plan of Treatment Upcoming Encounters Date Type Department Care Team (Late st Contact Info) Description 03/07/2025 4:15 PM EDT Office Visit NEREIDA [facility] [address] [place] [address] Aj Lockwood MD 5319 [facility] [address] [id number] 03/23/2025 9:05 AM EDT Office Visit [facility] [place] [facility] [address] [place] [address] Magui Juan APRN-ROOF SHINGLER [address] [place] [address] 04/11/2025 10:15 AM EDT Office Visit N[facility]IDA [place] [facility] [address] [place] [address] Aj Lockwood MD 5319 [facility] [address] [id number] documented as of this encounter Visit Diagnoses Diagnosis 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 Primary hypertension Unspecified essential hypertension Hyperlipidemia, unspecified hyperlipidemia type Cerebrovascular accident (CVA), unspecified mechanism (HCC) documented in this encounter Additional Health Concerns Assessment Noted Time PHQ-9 Depression Total Score: 10 025 11:00 AM EST A fall risk assessment has been complete d for the patient 12/08/2023 9:26 AM EDT documented as of this encounter Care Teams Refining Still Operator Relationship Specialty Start Date End Date Charanjit Chen MD [address] [place] [address] PCP - General Family Medicine 02/11/24 Wendy Burden NP [address] [place] [address] PCP - Lacy MARIE 01/10/25 Henok Hendrix MA [address] [place] [address] Family Medicine 05/24/24 documented as of this encounter
--- OUTSIDE RECORDS SUMMARY | 2025-02-28 13:31 | XMS_ITS | Encounter Summary ---
Author Organization [facility] Address [address] [place] [address] Care Team Providers Care Limehouse Worker Name Role Phone Charanjit Chen MD Primary Care Provider Henok Hendrix MA Unavailable [phone] Wendy Burden NP Unavailable [phone] Encounter Details Date Type Department Care Team (Late st Contact Info) Description 02/24/2025 Patient Outreach [facility] [address] [place] [address] Henok Hendrix MA [address] [place] [address] Social History Tobacco Use Types Packs/Day Years [...] often do you attend chur ch or judaism services? Never 12/08/2023 Do you belong to any clubs o r organizations such as yarsani groups, unions, fraternal or athletic groups, or [...] Recorded Patient Health Questionnaire-2 Score 1 08/02/2024 [facility] of Occupat ional Health - Occupational Stress [...] place to sleep or slept in a fdc (including now)? No 12/08/2023 Comments No Sex and Gender Information Value Date Recorded Sex Assigned at Not on file Legal Sex Female 12:29 PM EDT Gender Identity Not on file Sexual Orientation Not on file documented as of this encounter Progress Notes * Amadokarina HendrixCYNTHIA - 02/24/2025 8:14 AM EDT [employer] called to check on authorization for ECHO w bubble study and Carotid US. I spoke with Erin and they were approved and the patient is scheduled for 03/06 starting at 1000. I asked if the reports would be read right away as the patient has her appt with Dr Lockwood on the . She transferred me to Radiology Dept to check. I left a . Upon coming in this morning, I had a missed call from Melissa. I called back and spoke with Jane in Radiology. She said it is hit or miss as the US are sent out to [place]. And [facility] has not picked up the services yet to read the ECHOs. She is going to call Scheduling to see if they can reach out to the patient and schedule the testing sooner. documented in this encounter Plan of Treatment Upcoming Encounters Date Type Department Care Team (Late st Contact Info) Description 03/07/2025 4:15 PM EDT Office Visit [facility]anci [facility] Neurology [address] [place] [address] Aj Lockwood MD [address] [id number] 03/23/2025 9:05 AM EDT Office Visit [facility] [address] [place] [address] Magui Juan APRN-CABLE SPLICER ASSISTANT [address] [place] [address] 04/11/2025 10:15 AM EDT Office Visit [facility]rology [address] [place] [address] Aj Lockwood MD [address] [address] documented as of this encounter Visit Diagnoses Diagnosis 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 Primary hypertension Unspecified essential hypertension Hyperlipidemia, unspecified hyperlipidemia type documented in this encounter Additional Health Concerns Assessment Noted Time PHQ-9 Depression Total Score: 10 025 11:00 AM EST A fall risk assessment has been complete d for the patient 12/08/2023 9:26 AM EDT documented as of this encounter Care Teams Limehouse Worker Relationship Specialty Start Date End Date Charanjit Chen MD [address] [place] [address] PCP - General Family Medicine 02/11/24 Wendy Burden NP [address] [place] [address] JACKIE - Lacy MARIE 01/10/25 Henok Hendrix MA [address] [place] [address] Family Medicine 05/24/24 documented as of this encounter
--- OUTSIDE RECORDS SUMMARY | 2025-02-28 13:31 | XMS_ITS | Encounter Summary ---
Author Organization [facility] Address [address] [place] [address] Care Team Providers Care Cdl B Driver Name Role Phone Charanjit Chen MD Primary Care Provider [phone] Betty Singh PLUGGING MACHINE OPERATOR Unavailable Anne Hartley LPN Unavailable Henok Hendrix MA Unavailable [phone] Wendy Burden PLUGGING MACHINE OPERATOR Unavailable [phone] Encounter Details Date Type Department Care Team (Latest Contact Info) Description 05/24/2024 Abstract [facility] EXT DEP Javier Villanueva, DO 703 [facility] [address] [place] [address] Social History Tobacco Use Types Packs/Day Years [...] How often do you attend chur or rastafarian services? Never 12/08/2023 Do you belong to any clubs o r organizations such as samaritan groups, unions, fraternal or athletic groups, or [...] Patient Health Questionnaire-2 Score 0 03/24/2024 [facility] of Occupat ional [...] 4:15 PM EDT Office Visit NEREIDA [facility] [address] [place] [address] Aj Lockwood MD 07[address] [facility] [address] [place], [place] [phone] 03/23/2025 9:05 AM EDT Office Visit [facility] [address] [place] [address] Magui Juan, SANDING MACHINE OPERATOR-ENTERTAINMENT PRODUCTION PROFESSIONAL [address] [place] [address] 04/11/2025 10:15 AM EDT Office Visit N[facility] [place] [facility] [address] [place] [address] Aj Lockwood MD [address] [facility] [address] [place] [address] documented as of this encounter Visit Diagnoses Not on filedocumented in this encounter Additional Health Concerns Assessment Noted Time PHQ-9 Depression Total Score: 5 07/09/20 23 2:09 PM EST A fall risk assessment has been complete d for the patient 12/08/2023 9:26 AM EDT documented as of this encounter Care Teams Cdl B Driver Relationship Specialty Start Date End Date Charanjit Chen MD [address] [place] [address] PCP - General Family Medicine 02/11/24 Wendy Burden NP [address] [place] [address] PCP - Lacy MARIE 01/10/25 Betty Singh NP [address] [place] [address] Nurse Practitioner Family Medicine 02/11/24 11/20/24 Anne Hartley LPN [address] [place] [address] Licensed Practical Nurse Family Medicine 03/25/2405/13 Henok Hendrix MA [address] [place] [address] Family Medicine 05/24/24 documented as of this encounter
--- OUTSIDE RECORDS SUMMARY | 2025-02-28 13:31 | XMS_ITS | Encounter Summary ---
Author Organization [facility] Address [address] [place] [address] Care Team Providers Care Combination Welder Apprentice Name Role Phone Shaikh NAHEED Horan Primary Care Provider [phone] Shaikh NAHEED Horan Unavailable [phone] Shaikh NAHEED Horan Primary Care Provider [phone] Flower Stokes SUPERVISOR PLEATING Unavailable Unavailable Charanjit Chen MD Primary Care Provider [phone] Betty Singh CYANIDE CASE HARDENER Unavailable [phone] Anne Hartley SUPERVISOR PLEATING Unavailable Henok Hendrix MA Unavailable [phone] Wendy Burden CYANIDE CASE HARDENER Unavailable Reason for Visit * Reason Comments Med Refill Encounter Details Date Type Department Care Team (Late st Contact Info) Description 08/03/2023 Refill [facility] [address] [place] [address] Shaikh Horan MD [address] [place] [address] Primary hypertension (Primary Dx); Gastroesophageal reflux disease [...] 4:15 PM EDT Office Visit N[facility]IDA [facility] [place] [facility] [address] [facility] [address] [place] [address] Aj Lockwood MD [address] [place] [address] 03/23/2025 9:05 AM EDT Office Visit [facility] [address] [place] [address] Magui Juan, HAULPAK DRIVER-INDUSTRIAL ENGINEERING DIRECTOR [address] [place] [address] 04/11/2025 10:15 AM EDT Office Visit [facility] [address] [place] [address] Aj Lockwood MD [address] [place] [address] documented as of this encounter Visit Diagnoses Diagnosis Primary hypertension- Primary Unspecified essential hypertension Gastroesophageal reflux disease without esophagitis Esophageal reflux Other polyneuropathy documented in this encounter Additional Health Concerns Assessment Noted Time PHQ-9 Depression Total Score: 5 07/09/20 23 2:09 PM EST documented as of this encounter Care Teams Combination Welder Apprentice Relationship Specialty Start Date End Date Shaikh Horan MD PCP - General Internal Medicine 01/26/23 10/11/23 Shaikh Horan MD [address] [place] [address] PCP - Devoted 04/12/23 11/10/23 Shaikh Horan MD [address] [place] [address] PCP - General Internal Medicine 10/12/23 02/10/24 Charanjit Chen MD [address] [place] [address] PCP - General Family Medicine 02/11/24 Wendy Burden NP [address] [place] [address] PCP - Lacy MARIE 01/10/25 Flower Stokes LPN Licensed Practical Nurse Family Medicine 11/26/23 Betty Singh NP [address] [place] [address] Nurse Practitioner Family Medicine 02/11/24 11/20/24 Anne Hartley LPN [address] [place] [address] Licensed Practical Nurse Family Medicine 03/25/2405/13 Henok Hendrix MA [address] [place] [address] Family Medicine 05/24/24 documented as of this encounter
--- OUTSIDE RECORDS SUMMARY | 2025-02-28 13:31 | XMS_ITS | Encounter Summary ---
Author Organization [facility] Address [address] [place] [address] Care Team Providers Care Closing Agent Name Role Phone Charanjit Chen MD Primary Care Provider [phone] Henok Hendrix MA Unavailable [phone] Wendy Burden NP Unavailable [phone] Encounter Details Date Type Department Care Team (Late st Contact Info) Description 02/23/2025 Abstract [facility] [address] [place] [address] Wendy Burden, STOCK TRANSFER CLERK [address] [place] [address] Social History Tobacco Use Types Packs/Day Years [...] Patient Health Questionnaire-2 Score 1 08/02/2024 [facility] of Occupat ional Health - Occupational [...] skilled nursing (including now)? No 12/08/2023 Comments No Sex and Gender Information Value Date Recorded Sex Assigned at Not on file Legal Sex Female 12:29 PM EDT Gender Identity Not on file Sexual Orientation Not on file documented as of this encounter Plan of Treatment Upcoming Encounters Date Type Department Care Team (Late st Contact Info) Description 03/07/2025 4:15 PM EDT Office Visit NEREIDA [facility] [address] [facility] [address] [place] [address] Aj Lockwood MD 0185 [facility] [address] [place] [address] 03/23/2025 9:05 AM EDT Office Visit [facility] [address] [place] [address] Magui Juan, FILLER MIXER-FLY RAISER LOCKSTITCH [address] [place] [address] 04/11/2025 10:15 AM EDT Office Visit [facility] [place] [facility] [address] [place] [address] Aj Lockwood MD 5367 [facility] [address] [place] [address] documented as of this encounter Visit Diagnoses Not on filedocumented in this encounter Additional Health Concerns Assessment Noted Time PHQ-9 Depression Total Score: 10 025 11:00 AM EST A fall risk assessment has been complete d for the patient 12/08/2023 9:26 AM EDT documented as of this encounter Care Teams Closing Agent Relationship Specialty Start Date End Date Charanjit Chen MD [address] [place] [address] PCP - General Family Medicine 02/11/24 Wendy Burden NP [address] [place] [address] PCP - Lacy MARIE 01/10/25 Henok Hendrix MA [address] [place] [address] Family Medicine 05/24/24 documented as of this encounter
--- OUTSIDE RECORDS SUMMARY | 2025-02-28 13:31 | XMS_ITS | Encounter Summary ---
Author Organization [facility] Address [address] [place] [address] Care Team Providers Care Restaurant Cashier Name Role Phone Shaikh NAHEED Horan Primary Care Provider [phone] [place] HEAD OF GEOGRAPHY Unavailable Unavailable Charanjit Chen MD Primary Care Provider [phone] Betty Singh CELL PLASTERER Unavailable [phone] Anne Hartley HEAD OF GEOGRAPHY Unavailable Henok Hendrix MA Unavailable [phone] Wendy Burden CELL PLASTERER Unavailable [phone] Encounter Details Date Type Department Care Team (Late st Contact Info) Description 01/25/2024 Clinisync Result Encounter [facility] External Department Unsolicited Shaikh Horan MD [address] [place] [address] Social History Tobacco Use Types Packs/Day Years [...] How often do you attend chur or shinto services? Never 12/08/2023 Do you belong to [...] Recorded Patient Health Questionnaire-2 Score 0 01/04/2024 [facility] [place] of Occupat ional Health - Occupational Stress [...] 4:15 PM EDT Office Visit [facility] [address] [place] [address] Aj Lockwood MD [address] [facility] [address] [place] [address] 03/23/2025 9:05 AM EDT Office Visit NEREIDA [facility] [address] [place] [address] Magui Juan, LAB TESTER-HEDIS MANAGER [address] [place] [address] 04/11/2025 10:15 AM EDT Office Visit N[facility] [address] [place] [address] Aj Lockwood MD [address] [facility] [address] [place], [place] [address] documented as of this encounter Procedures Procedure Name Priority Date/Time Associated Diagnosis Comments PET SKULL BASE TO MID THIGH 01/25/2024 11:12 PM EDT documented in this encounter Results * PET/CT skull base to mid thigh (01/25/2024 11:12 PM EDT) Anatomical Region Laterality Modality Body Computed Tomogra phy 01/25/2024 11:1 2 PM EDT Narrative 01/25/2024 11:14 PM EDT The [address] [address] PET Report Signed Patient: BHUPENDRA MIRANDA MR#: [id number] : 1950 Acct:[id number] Age/Sex: 73 / F ADM Date: 01/25/24 Loc: PETCT Attending Dr: Shaikh Aung Davidson Ordering Physician: Shaikh Lety Horan Date of Service: 01/25/24 Procedure(s): PET skull to mid thigh Accession Number(s): [id number] cc: Shaikh Lety Horan The [address] [address] Patient Name: BHUPENDRA MIRANDA MRN: [id number] date: 1950 Sex: F Assigned Patient Location: PETCT Current Patient Location: PETCT Accession/Order Number: [id number] Exam Date: 01/25/2024 15:39 Report Date: 01/25/2024 [...] 2009 Apr;50(4 Suppl):S2-49 Electronically authenticated by: CLAUDIO ACOSTA Date: 01/25/2024 23:12 Dictated By: Claudio Acosta M.D. Signed By: 01/25/242313 DD/ 11 TD/TT: Plastic Maker: Procedure Note Radiology, Radiologist, MD - 01/25/2024 [place] [address] PET Report Signed Patient: BHUPENDRA MIRANDA [facility]#: [id number] : 1950cct:[id number] Age/Sex: 73 / FADM Date: 01/25/24 Loc: PETCT Attending Dr: Shaikh Aung Davidson Ordering Physician: Shaikh Lety Horan Date of Service: 01/25/24 Procedure(s): PET skull to mid thigh Accession Number(s): [id number] cc: Shaikh Lety Horan The [address] [address] Patient Name: BHUPENDRA MIRANDA MRN: [facility]:[id number] date: 1950 Sex: F Assigned Patient Location: PETCT Current Patient Location: PETCT Accession/Order Number: [id number] Exam Date: 01/25/2024 15:39 Report Date: 01/25/2024 [...] normal segment). Reference: J Vasc Surg. 2009 Oct;50(4 Suppl):S2-49 Electronically authenticated by: CLAUDIO ACOSTA Date: 01/25/2024 23:12 Dictated By: Claudio Acosta M.D. Signed By:01/25/242313 DD/ 11 TD/TT: Plastic Maker: us Shaikh Aung FARFAN IMG CT PROCEDURES Final Result documented in this encounter Visit Diagnoses Not on filedocumented in this encounter Additional Health Concerns Assessment Noted Time PHQ-9 Depression Total Score: 5 07/09/20 23 2:09 PM EST A fall risk assessment has been complete d for the patient 12/08/2023 9:26 AM EDT documented as of this encounter Care Teams Restaurant Cashier Relationship Specialty Start Date End Date Shaikh Horan MD [address] [place] [address] PCP - General Internal Medicine 10/12/23 02/10/24 Charanjit Chen MD [address] [place] [address] PCP - General Family Medicine 02/11/24 Wendy Burden NP [address] [place] [address] PCP - Lacy MARIE 01/10/25 [place] LPN Licensed Practical Nurse Family Medicine 11/26/23 Betty Singh NP [address] [place] [address] Nurse Practitioner Family Medicine 02/11/24 11/20/24 Anne Hartley LPN [address] [place] [address] Licensed Practical Nurse Family Medicine 03/25/2405/13 Henok Hendrix, [place] [address] [place] [address] Family Medicine 05/24/24 documented as of this encounter
--- OUTSIDE RECORDS SUMMARY | 2025-02-28 13:31 | XMS_ITS | Encounter Summary ---
Author Organization [facility] Address [address] [place] [address] Care Team Providers Care Fire Prevention Bureau Captain Name Role Phone [place] LPN Unavailable Unavailable Charanjit Chen MD Primary Care Provider [phone] Betty Singh CROZE MACHINE OPERATOR Unavailable [phone] Anne Hartley GRAPHIC DESIGNER Unavailable Henok Hendrix MA Unavailable [phone] Wendy Burden NP Unavailable [phone] Encounter Details Date Type Department Care Team (Late st Contact Info) Description 02/22/2024 Clinisync Result Encounter [facility] External Department Unsolicited Shaikh Horan MD [address] [place] [address] Social History Tobacco Use Types Packs/Day Years [...] How often do you attend chur or methodist services? Never 12/08/2023 Do you belong to [...] Recorded Patient Health Questionnaire-2 Score 0 02/22/2024 [facility] [place] of Occupat ional Health - Occupational Stress [...] Office Visit NEREIDA [facility] [address] [facility] [address] [place] [address] Aj Lockwood MD [address] [id number] 03/23/2025 9:05 AM EDT Office Visit [facility] [address] [facility] [address] [facility] 350 [place] [address] Magui Juan, PAGINATOR-FEEDER OPERATOR [address] [place] [address] 04/11/2025 10:15 AM EDT Office Visit NEREIDA [facility] [address] [facility] [address] [place] [address] Aj Lockwood MD 5319 [facility] [address] [id number] documented as of this encounter Procedures Procedure Name Priority Date/Time Associated Diagnosis Comments CA HOLTER MONITOR 2-7 DAYS 02/22/2024 1:27 PM EDT documented in this encounter Results * CA HOLTER MONITOR 2-7 DAYS (02/22/2024 1:27 PM EDT) Anatomical Region Laterality Modality Other 02/22/2024 1:27 PM EDT Narrative 02/23/2024 6:56 AM EDT The [address] [address] Cardiology Report Signed Patient: BHUPENDRA MIRANDA MR#: [id number] : 1950 Acct:[id number] Age/Sex: 73 / F ADM Date: 02/12/24 Loc: CARD Attending Dr: Shaikh Aung Davidson Ordering Physician: Shaikh Lety Horan Date of Service: 02/12/24 Procedure(s): CA holter montior 2-7 days Accession Number(s): [id number] cc: Shaikh Lety Horan The [facility] Test Date: 2024-02-22 Pat Name: BHUPENDRA MIRANDA Department: Room: - Gender: Female Tissue Technician: : 1950 Requested By: SHAIKH AUNG Order Number: [id number] Reading MD: KEEGAN COMER Interpretive Statements Predominant [...] 02/23/24 0656 02/23/24 0656 DD/ 1327 TD/TT: Java Sdet: Procedure Note Radiology, Radiologist, MD - 02/23/2024 [place] [address] Cardiology Report Signed Patient: BHUPENDRA MIRANDA MMR#: [id number] : 1950cct:[id number] Age/Sex: 73 / FADM Date: 02/12/24 Loc: CARD Attending Dr: Shaikh Aung Davidson Ordering Physician: Shaikh Lety Horan Date of Service: 02/12/24 Procedure(s): CA holter montior 2-7 days Accession Number(s): [id number] cc: Shaikh Lety Horan The [facility] Test Date: 2024-02-22 Pat Name: BHUPENDRA MIRANDA Department: Room: - Gender: Female Tissue Technician: : 1950 Requested By: SHAIKH AUNG Order Number: [id number] Reading MD: KEEGAN COMER Interpretive Statements Predominant [...] By:02/23/24 0656 02/23/24 0656 DD/ 1327 TD/TT: Java Sdet: us Shaikh Aung [facility] Final Result documented in this encounter Visit Diagnoses Not on filedocumented in this encounter Additional Health Concerns Assessment Noted Time PHQ-9 Depression Total Score: 5 07/09/20 23 2:09 PM EST A fall risk assessment has been complete d for the patient 12/08/2023 9:26 AM EDT documented as of this encounter Care Teams Fire Prevention Bureau Captain Relationship Specialty Start Date End Date Charanjit Chen MD [address] [place] [address] PCP - General Family Medicine 02/11/24 Wendy Burden NP [address] [place] [address] PCP - Lacy MARIE 01/10/25 [place] LPN Licensed Practical Nurse Family Medicine 11/26/23 Betty Singh NP [address] [place] [address] Nurse Practitioner Family Medicine 02/11/24 11/20/24 Anne Hartley LPN [address] [place] [address] Licensed Practical Nurse Family Medicine 03/25/2405/13 Henok Hendrix, [place] [address] [place] [address] Family Medicine 05/24/24 documented as of this encounter
--- OUTSIDE RECORDS SUMMARY | 2025-02-28 13:31 | XMS_ITS | Encounter Summary ---
Author Organization [facility] Address [address] [place] [address] Care Team Providers Care Dry Cell Assembly Machine Tender Name Role Phone [place] LPN Unavailable Unavailable Charanjit Chen MD Primary Care Provider [phone] Betty Singh FREIGHT SOLICITOR Unavailable Anne Hartley REGIONAL BUSINESS DEVELOPMENT MANAGER Unavailable Henok Hendrix MA Unavailable [phone] Wendy Burden NP Unavailable [phone] Encounter Details Date Type Department Care [...] How often do you attend chur or mu-ism services? Never 12/08/2023 Do you belong to [...] 02/22/2024 [facility] of Occupat ional [...] 4:15 PM EDT Office Visit NEREIDA [facility] [address] [facility] 310 [place] [address] Aj Lockwood MD 70[address] [facility] 111 [place] [address] 03/23/2025 9:05 AM EDT Office Visit NEREIDA [facility] [address] [facility] 350 [place] [address] Magui Juan, RUBBER COMPOUNDER-OIL FURNACE INSTALLER [address] [facility] 350 [place] [address] 04/11/2025 10:15 AM EDT Office Visit [facility] [place] [facility] [address] [place] [address] Aj Lockwood MD [address] [facility] [address] [place] [address] documented as of this encounter Procedures Procedure Name Priority Date/Time Associated Diagnosis Comments BRONCHOSCOPY W OR WO FLUORO 03/10/2024 7:34 AM EDT documented in this encounter Results * BRONCHOSCOPY W OR WO FLUORO (03/10/2024 7:34 AM EDT) Anatomical Region Laterality Modality Radiographic Meagan ging 03/10/2024 7:34 AM EDT Narrative 03/10/2024 7:36 AM EDT The [address] [address] Fluoroscopy Report Signed Patient: BHUPENDRA MIRANDA MR#: [id number] : 1950 Acct:[id number] Age/Sex: 73 / F ADM Date: 03/09/24 Loc: SURGOUT Attending Dr: Leigh Thompson D.O. Ordering Physician: Leigh Thompson D.O. Date of Service: 03/09/24 Procedure(s): FL Bronchoscopy NO CHARGE Accession Number(s): [id number] cc: LYNETTE SINGH Nathan D.O. The [address] [address] Patient Name: BHUPENDRA MIRANDA MRN: [id number] date: 1950 Sex: F Assigned Patient Location: SURGOUT Current Patient Location: Accession/Order Number: [id number] Exam Date: 03/09/2024 12:45 Report Date: 03/10/2024 [...] Dictated By: Jeff Melton M.D. Signed By: 03/10/2436 DD/ 3 TD/TT: Auto Leasing Manager: Procedure Note Radiology, Radiologist, MD - 03/10/2024 [place] [address] Fluoroscopy Report Signed Patient: BHUPENDRA MIRANDA MMR#: [id number] : 1950cct:[id number] Age/Sex: 73 / FADM Date: 03/09/24 Loc: [facility] Attending Dr: Leigh Thompson D.O. Ordering Physician: Leigh Thompson D.O. Date of Service: 03/09/24 Procedure(s): FL Bronchoscopy NO CHARGE Accession Number(s): [id number] cc: BETTY SINGH; Leigh Thompson D.O. The [place] [address] Patient Name: BHUPENDRA MIRANDA MRN: [id number] date: 1950 Sex: F Assigned Patient Location: [facility] Current Patient Location: Accession/Order Number: [id number] Exam Date: 03/09/2024 12:45 Report Date: 03/10/2024 [...] By: Jeff Melton M.D. Signed By:03/10/2436 DD/ 3 TD/TT: Auto Leasing Manager: us Generic External Data Provider IMG XR PROCEDURES Final Result documented in this encounter Visit Diagnoses Not on filedocumented in this encounter Additional Health Concerns Assessment Noted Time PHQ-9 Depression Total Score: 5 07/09/20 23 2:09 PM EST A fall risk assessment has been complete d for the patient 12/08/2023 9:26 AM EDT documented as of this encounter Care Teams Dry Cell Assembly Machine Tender Relationship Specialty Start Date End Date Charanjit Chen MD [address] [place] [address] PCP - General Family Medicine 02/11/24 Wendy Burden NP [address] [place] [address] PCP - Lacy MARIE 01/10/25 [place] LPN Licensed Practical Nurse Family Medicine 11/26/23 Betty Singh NP [address] [place] [address] Nurse Practitioner Family Medicine 02/11/24 11/20/24 Anne Hartley LPN [address] [place] [address] Licensed Practical Nurse Family Medicine 03/25/2405/13 Henok Hendrix, CYNTHIA [address] [place] [address] Family Medicine 05/24/24 documented as of this encounter
--- OUTSIDE RECORDS SUMMARY | 2025-02-28 13:31 | XMS_ITS | Encounter Summary ---
Author Organization [facility] Address [address] [place] [address] Care Team Providers Care Lawn Sprinkler Installer Name Role Phone Shaikh NAHEED Horan Primary Care Provider [phone] [place] GANG KNIFE FISH CHOPPER Unavailable Unavailable Charanjit Chen MD Primary Care Provider Betty Singh INDUSTRIAL DESIGN INTERN Unavailable [phone] Anne Hartley GANG KNIFE FISH CHOPPER Unavailable Henok Hendrix MA Unavailable [phone] Wendy Burden INDUSTRIAL DESIGN INTERN Unavailable [phone] Encounter Details Date Type Department Care Team (Late st Contact Info) Description 12/30/2023 Abstract [facility] [address] [place] [address] Shaikh Horan MD [address] [place] [address] Social History Tobacco Use Types Packs/Day Years [...] any clubs o r organizations such as nondenominational groups, unions, fraternal or athletic groups, or [...] Recorded Patient Health Questionnaire-2 Score 0 11/09/2023 [facility] of Occupat [...] 4:15 PM EDT Office Visit NEREIDA [facility] [place] [facility] [address] [place] [address] Aj Lockwood MD [address] [facility] [address] [place] [address] 03/23/2025 9:05 AM EDT Office Visit NEREIDA [facility] [address] [place] [address] Magui Juan APRN-[employer] [address] [place] [address] 04/11/2025 10:15 AM EDT Office Visit NOMYanci Sands [facility]rology [address] [place] [address] Aj Lockwood MD 53[address] [facility] 111 [place], [place] [address] documented as of this encounter Visit Diagnoses Not on filedocumented in this encounter Additional Health Concerns Assessment Noted Time PHQ-9 Depression Total Score: 5 07/09/20 23 2:09 PM EST A fall risk assessment has been complete d for the patient 12/08/2023 9:26 AM EDT documented as of this encounter Care Teams Lawn Sprinkler Installer Relationship Specialty Start Date End Date Shaikh Horan MD [address] [place] [address] PCP - General Internal Medicine 10/12/23 02/10/24 Charanjit Chen MD [address] [place] [address] PCP - General Family Medicine 02/11/24 Wendy Burden NP [address] [place] [address] PCP - Lacy MARIE 01/10/25 [place] LPN Licensed Practical Nurse Family Medicine 11/26/23 Betty Singh NP [address] [place] [address] Nurse Practitioner Family Medicine 02/11/24 11/20/24 Anne Hartley LPN [address] [place] [address] Licensed Practical Nurse Family Medicine 03/25/2405/13 Henok Hendrix, [place] [address] [place] [address] Family Medicine 05/24/24 documented as of this encounter
--- OUTSIDE RECORDS SUMMARY | 2025-02-28 13:31 | XMS_ITS | Encounter Summary ---
Author Organization [facility] Address [address] [place] [address] Care Team Providers Care Jack Frame Tender Name Role Phone Unavailable Primary Care Provider Unavailabl e Source Comments In the event this information is protected by the Federal Confidentiality of Alcohol and Drug AbusePatient Records regulations: The Federal rules restrict any use of the information to criminally investigate or prosecute any alcohol or drug abuse patient.[facility] Encounter Details Date Type Department Care Team (Late st Contact Info) Description 05/24/2024 Lab Requisition [facility] [address] [place] [address] Javier Villanueva [address] [phone] Person encountering health services to consult on [...] EST) Case Report Surgical Pathology Report Case: [id number] Authorizing Provider: Javier Villanueva Collected: 05/24/2024 11:27 AM Ordering Location: [facility] Received: 05/24/2024 11:26 AM [facility] Pathologist: Leroy Zayas MD, PhD Specimen: Slide(s), 16 SLIDES [id number] 05/26/2024 1:51 PM EST [facility] FINAL DIAGNOSIS A. 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 - See comment. 05/26/2024 1:51 PM EST [facility] at 1351 EST Diagnosis Comment Thank you for allowing us the opportunity to review this case in consultation representing the colon polyp biopsies from the 73-year-old female. Per provided letter and patient note, the reverberatory furnace operator felt the polyp was completely removed. Histologic [...] to contact the GI consultation service at [phone] with questions or if additional follow-up information becomes available. This case was reviewed in conjunction with the GI pathology fellow, Sangita Rai M.D. 05/26/2024 1:51 PM EST [facility] Clinical History CONSULT REQUESTED 05/26/2024 1:51 PM EST [facility] Performing Lab Diagnostic interpretation performed at: [facility], [address] [place] [address] CLIA# [id number] Medical Assisting Program Director: Henri Mireles MD 05/26/2024 1:51 PM EST [facility] Blocks or Slides MICROSCOPE SLIDE / Unknown 05/24/2024 11:27 AM EST 05/24/2024 11:26 AM EST us Javier Villanueva SURGICAL PATHOLOGY Final Result [facility] [address] [place], [place] [address], documented in this encounter Visit Diagnoses Diagnosis Person encountering health services to consult on behalf of another person Other person consulting on behalf of another person documented in this encounter
--- OUTSIDE RECORDS SUMMARY | 2025-02-28 13:31 | XMS_ITS ---
Author Organization [facility] Address [address] [place] [address] Care Team Providers Care Curator Of Collections Name Role Phone Charanjit Chen MD Primary Care Provider [phone] Henok Hendrix MA Unavailable [phone] Wendy Burden NP Unavailable [phone] Chronic Care Management (CCM) Status:Enrolled (Active) Start date:11/26/2023 Enrollment date:12/02/2023 Enrollment reason:Referred by provider Overview Please assess for Care Management needs. 12/02/23, 9:28 AM - [place] LPN- Patient gives verbal consent to be enrolled in CCM Program and understands there could be a bill for this service. Case Team Name Relationship Phone Henok Hendrix MA(Responsible Staff) [phone] Continued Care and Services Coordination
--- OUTSIDE RECORDS SUMMARY | 2025-02-28 13:31 | XMS_ITS | Encounter Summary ---
Author Organization [facility] Address [address] [place] [address] Care Team Providers Care Manager Voice Name Role Phone Shaikh NAHEED Horan Primary Care Provider [phone] Shaikh NAHEED Horan Unavailable [phone] Shaikh NAHEED Horan Primary Care Provider [phone] [place] FILM MASKER Unavailable Unavailable Charanjit Chen MD Primary Care Provider [phone] Betty Snigh VACUUM CLEANER REPAIRER Unavailable Anne Hartley FILM MASKER Unavailable Henok Hendrix MA Unavailable [phone] Wendy Burden VACUUM CLEANER REPAIRER Unavailable [phone] Reason for Visit * Reason Comments Med Refill Encounter Details Date Type Department Care Team (Late st Contact Info) Description 07/02/2023 Refill [facility] [address] [place] [address] Shaikh Horan MD [address] [place] [address] Gastroesophageal reflux disease without esophagitis (Primary Dx); [...] Description 03/07/2025 4:15 PM EDT [facility] [address] [place] [address] Aj Lockwood MD [address] [id number] 03/23/2025 9:05 AM EDT Office Visit [facility] [address] [place] [address] Magui Juan APRN-ORDER MANAGER [address] [place] [address] 04/11/2025 10:15 AM EDT [facility] [place] [facility] [address] [place] [address] Aj Lockwood MD [address] [address] documented as of this encounter Visit Diagnoses Diagnosis Gastroesophageal reflux disease without esophagitis- Primary Esophageal reflux Other polyneuropathy documented in this encounter Care Teams Manager Voice Relationship Specialty Start Date End Date Shaikh Horan MD PCP - General Internal Medicine 01/26/23 10/11/23 Shaikh Horan MD [address] [place] [address] PCP - Devoted 04/12/23 11/10/23 Shaikh Horan MD [address] [place] [address] PCP - General Internal Medicine 10/12/23 02/10/24 Charanjit Chen MD [address] [place] [address] PCP - General Family Medicine 02/11/24 Wendy Burden NP [address] [place] [address] PCP - Harrod MA 01/10/25 F[place] LPN Licensed Practical Nurse Family Medicine 11/26/23 Betty Singh NP [address] [place] [address] Nurse Practitioner Family Medicine 02/11/24 11/20/24 Anne Hartley LPN [address] [place] [address] Licensed Practical Nurse Family Medicine 03/25/2405/13 Henok Hendrix, CYNTHIA [address] [place] [address] Family Medicine 05/24/24 documented as of this encounter
--- OUTSIDE RECORDS SUMMARY | 2025-02-28 13:31 | XMS_ITS | Encounter Summary ---
Author Organization [facility] Address [address] [place] [address] Care Team Providers Care Power Distribution Engineer Name Role Phone Flower Stokes LPN Unavailable Unavailable Charanjit Chen MD Primary Care Provider Betty Singh TIP STRETCHER Unavailable Anne Hartley FINANCE INTERN Unavailable Henok Hendrix MA Unavailable [phone] Wendy Burden NP Unavailable [phone] Encounter Details Date Type Department Care Team (Late st Contact Info) Description 02/12/2024 Clinisync Result Encounter [facility] External Department Unsolicited Shaikh Horan MD [address] [place] [phone] Social History Tobacco Use Types Packs/Day Years [...] How often do you attend chur or latter day services? Never 12/08/2023 Do you belong to any clubs o r organizations such as pentecostalism groups, unions, fraternal or athletic groups, or [...] Recorded Patient Health Questionnaire-2 Score 0 01/04/2024 [facility] Occupat ional Health - Occupational Stress [...] [facility] [address] [place] [address] Aj Lockwood MD [address] [facility] [address] [place] [address] 03/23/2025 9:05 AM EDT Office Visit [facility] [address] [place] [address] Magui Juan, PCTS-NEUROLOGY PROFESSOR [address] [place] [address] 04/11/2025 10:15 AM EDT Office Visit [facility] Neurology [address] [place] [address] Aj Lockwood MD 5319 [facility] [address] [id number] documented as of this encounter Procedures Procedure Name Priority Date/Time Associated Diagnosis Comments CA ECHO DOPPLER COMPLETE 02/12/2024 5:23 PM EDT documented in this encounter Results * CA ECHO DOPPLER COMPLETE (02/12/2024 5:23 PM EDT) Anatomical Region Laterality Modality Other 02/12/2024 5:23 PM EDT Narrative 02/12/2024 5:24 PM EDT [address] [address] Cardiology Report Signed Patient: BHUPENDRA MIRANDA MR#: [id number] : 1950 Acct:[id number] Age/Sex: 73 / F ADM Date: 02/12/24 Loc: CARD Attending Dr: Shaikh Aung Davidson Ordering Physician: Shaikh Lety Horan Date of Service: 02/12/24 Procedure(s): CA echo doppler complete Accession Number(s): [id number] cc: Shaikh Lety Horan Patient Name: BHUPENDRA MIRANDA MR#: [id number] : 1950 Exam Date: 02/12/2024 Ordering Doctor: [...] SOARES Signed By: 02/12/241723 DD/ 22 TD/TT: Test Lead: Procedure Note Radiology, Radiologist, MD - 02/12/2024 [place] [address] Cardiology Report Signed Patient: BHUPENDRA MIRANDA MMR#: [id number] : 1950cct:[id number] Age/Sex: 73 / FADM Date: 02/12/24 Loc: CARD Attending Dr: Shaikh Aung Davidson Ordering Physician: Shaikh Lety Horan Date of Service: 02/12/24 Procedure(s): CA echo doppler complete Accession Number(s): [id number] cc: Shaikh Lety Horan Patient Name: BHUPENDRA MIRANDA MR#: [id number] : 1950 Exam Date: 02/12/2024 Ordering Doctor: [...] at 17:23 Dictated By: ANITRA SOARES Signed By:02/12/24 1724 DD/ 22 TD/TT: Test Lead: us Shaikh Aung [facility] Final Result documented in this encounter Visit Diagnoses Not on filedocumented in this encounter Additional Health Concerns Assessment Noted Time PHQ-9 Depression Total Score: 5 07/09/20 23 2:09 PM EST A fall risk assessment has been complete d for the patient 12/08/2023 9:26 AM EDT documented as of this encounter Care Teams Power Distribution Engineer Relationship Specialty Start Date End Date Charanjit Chen MD [address] [place] [phone] PCP - General Family Medicine 02/11/24 Wendy Burden NP [address] [place] [phone] PCP - Lacy MARIE 01/10/25 Flower Stokes LPN Licensed Practical Nurse Family Medicine 11/26/23 Betty Singh NP [address] [place] [address] Nurse Practitioner Family Medicine 02/11/24 11/20/24 Anne Hartley LPN [address] [place] [address] Licensed Practical Nurse Family Medicine 03/25/2405/13 Henok Hendrix, CYNTHIA [address] [place] [address] Family Medicine 05/24/24 documented as of this encounter
--- OUTSIDE RECORDS SUMMARY | 2025-02-28 13:31 | XMS_ITS | Encounter Summary ---
Author Organization [facility] Address [address] [place] [address] Care Team Providers Care Survey Worker Name Role Phone Shaikh NAHEED Horan Unavailable [phone] Shaikh NAHEED Horan Primary Care Provider Flower Stokes LPN Unavailable Unavailable Charanjit Chen MD Primary Care Provider Betty Singh DISTRIBUTION SPECIALIST Unavailable Anne Hartley SUPERVISOR [employer]IPE [employer]ANT Unavailable Henok Hendrix MA Unavailable [phone] Wendy Burden DISTRIBUTION SPECIALIST Unavailable [phone] Reason for Visit * Reason Comments Med Refill Encounter Details Date Type Department Care Team (Late st Contact Info) Description 11/10/2023 [facility] [address] [place] [address] Shaikh Horan MD [address] [place] [phone] Primary hypertension Social History Tobacco Use Types [...] 4:15 PM EDT [facility] [address] [place] [address] Aj Lockwood MD [address] [address] 03/23/2025 9:05 AM EDT Office Visit [facility] [place] [facility] [address] [place] [address] Magui Juan APRN-HUNTING GUIDE [address] [place] [address] 04/11/2025 10:15 AM EDT [facility] [place] [facility] [address] [place] [address] Aj Lockwood MD [address] [address] documented as of this encounter Visit Diagnoses Diagnosis Primary hypertension Unspecified essential hypertension documented in this encounter Additional Health Concerns Assessment Noted Time PHQ-9 Depression Total Score: 5 07/09/20 23 2:09 PM EST documented as of this encounter Care Teams Survey Worker Relationship Specialty Start Date End Date Shaikh Horan MD [address] [place] [phone] PCP - Devoted 04/12/23 11/10/23 Shaikh Horan MD [address] [place] [address] PCP - General Internal Medicine 10/12/23 02/10/24 Charanjit Chen MD [address] [place] [address] PCP - General Family Medicine 02/11/24 Wendy Burden NP [address] [place] [address] PCP - Lacy MARIE 01/10/25 Flower Stokes LPN Licensed Practical Nurse Family Medicine 11/26/23 Betty Singh NP [address] [place] [phone] Nurse Practitioner Family Medicine 02/11/24 11/20/24 Anne Hartley LPN [address] [place] [address] Licensed Practical Nurse Family Medicine 03/25/2405/13 Henok Hendrix MA [address] [place] [address] Family Medicine 05/24/24 documented as of this encounter
--- OUTSIDE RECORDS SUMMARY | 2025-02-28 13:31 | XMS_ITS | Encounter Summary ---
Author Organization [facility] Address [id number] [address] [place] [address] Care Team Providers Care Kapok Machine Operator Name Role Phone Betty Singh PHYSICIANS AND SURGEONS-SIZE TESTER Primary Care Pr ovider Encounter Details Date Type Department Care Team (Late st Contact Info) Description 06/13/2024 Orders Only [facility] [address] [place] [phone] Transcribe, Orders Support User Pain (Primary Dx) Social History Tobacco Use Types Packs/Day Years Used Date Smoking Tobacco: Never Assessed [facility] Utilities Answer Date Recorded In the [...] documented as of this encounter Care Teams Kapok Machine Operator Relationship Specialty Start Date End Date Betty Singh, PHYSICIANS AND SURGEONS-SIZE TESTER [address] [place] [address] PCP - General Nurse Practitioner 06/13/24 documented as of this encounter
--- OUTSIDE RECORDS SUMMARY | 2025-02-28 13:31 | XMS_ITS | Encounter Summary ---
Author Organization [facility] Address [address] [place] [address] Care Team Providers Care Exhaust Machine Operator Name Role Phone Charanjit Chen MD Primary Care Provider Henok Hendrix MA Unavailable [phone] Wendy Burden NP Unavailable [phone] Encounter Details Date Type Department Care Team (Late st Contact Info) Description 02/23/2025 Abstract [facility] [address] [place] [address] Wendy Burden, TENTER FEEDER [address] [place] [address] Social History Tobacco Use Types Packs/Day Years [...] often do you attend chur ch or shinto services? Never 12/08/2023 Do you [...] Recorded Patient Health Questionnaire-2 Score 1 08/02/2024 [facility] Occupat ional Health - Occupational [...] place to sleep or slept in a chcf (including now)? No 12/08/2023 Comments No Sex and Gender Information Value Date Recorded Sex Assigned at Not on file Legal Sex Female 12:29 PM EDT Gender Identity Not on file Sexual Orientation Not on file documented as of this encounter Plan of Treatment Upcoming Encounters Date Type Department Care Team (Late st Contact Info) Description 03/07/2025 4:15 PM EDT Office Visit [facility] Neurology [address] [facility] [address] [place] [address] Aj Lockwood MD [address] [facility] [address] [place] [address] 03/23/2025 9:05 AM EDT Office Visit [facility] [address] [place] [address] Magui Juan, BUNDLES HANGER-ORTHOPHOTO TECH/DRAFTSMAN [address] [place] [address] 04/11/2025 10:15 AM EDT Office Visit [facility] [place] [facility] [address] [place] [address] Aj Lockwood MD [address] [facility] [address] [place] [address] documented as of this encounter Visit Diagnoses Not on filedocumented in this encounter Additional Health Concerns Assessment Noted Time PHQ-9 Depression Total Score: 10 025 11:00 AM EST A fall risk assessment has been complete d for the patient 12/08/2023 9:26 AM EDT documented as of this encounter Care Teams Exhaust Machine Operator Relationship Specialty Start Date End Date Charanjit Chen MD [address] [place] [address] PCP - General Family Medicine 02/11/24 Wendy Burden NP [address] [place] [address] PCP - Lacy MARIE 01/10/25 Henok Hendrix MA [address] [place] [address] Family Medicine 05/24/24 documented as of this encounter
--- OUTSIDE RECORDS SUMMARY | 2025-02-28 13:31 | XMS_ITS | Clinical Summary ---
Author Organization [facility] Address [address] [place] [address] Care Team Providers Care Tube Machine Operator Name Role Phone Charanjit Chen MD Primary Care Provider Henok Hendrix MA Unavailable [phone] Wendy Burden NP Unavailable [phone] Allergies No known active allergies Medications albuterol HFA 90 mcg/act inhalerIndications :Moderate COPD (chronic obstructive pulmonary disease) ([facility]) Inhale 2 puffs every 4 (four) hours if needed for wheezing or shortness of breath 6.7 g 11/26/19 24 Active Budeson-Glycopyrro l-Formoterol (Breztri Aerosphere) 160-9-4.8 MCG/ACT aerosolIndications :Moderate COPD (chronic obstructive pulmonary disease) ([facility]) Inhale 2 puffs in the morning and 2 puffs before bedtime. 10.7 g 2 06/27/20 24 Active gabapentin (Neurontin) 300 MG capsuleIndications :Other polyneuropathy Take 1 capsule (300 mg) by mouth in the morning and 1 capsule (300 mg) in the evening and 1 capsule (300 mg) before bedtime. 270 capsule 08/02/19 25 Active apixaban (Eliquis) 5 MG tabletIndications: Cerebrovascular accident (CVA), unspecified mechanism (HCC) Take 1 tablet (5 mg) by mouth in the morning and 1 tablet (5 mg) before bedtime. 180 tablet 10/28/19 25 Active atorvastatin (Lipitor) 80 MG tabletIndications: Cerebrovascular accident (CVA), unspecified mechanism (HCC) Take 1 tablet (80 mg) by mouth Daily 90 tablet 10/28/19 25 Active losartan (Cozaar) 25 MG tabletIndications: Primary hypertension Take 1 tablet (25 mg) by mouth Daily 90 tablet 1 10/28/19 25 Active traZODone (Desyrel) 100 MG tabletIndications: Psychophysiologica l insomnia Take 1 tablet (100 mg) by mouth at bedtime 90 tablet 1 10/29/19 25 Active pantoprazole (ProtoNix) 40 MG EC tabletIndications: Gastroesophageal reflux disease, unspecified whether esophagitis present Take 1 tablet (40 mg) by mouth in the morning and 1 tablet (40 mg) before bedtime. Do not crush, chew, or split. 60 tablet 1 12/22/19 25 Active lamoTRIgine (LaMICtal) 150 MG tabletIndications: Alteration of awareness Take 1 tablet (150 mg) by mouth Daily 30 tablet 5 02/08/20 25 026 Active lacosamide (Vimpat) 100 MG tabletIndications: Seizure (HCC),Alteration of awareness Take 1 tablet (100 mg) by mouth in the morning and 1 tablet (100 mg) before bedtime. 60 tablet 5 02/08/20 25 026 Active Carafate 1 GM/10ML suspension Take 1 g by mouth 02/09/20 25 025 Active Trulance tablet tablet Take 1 tablet by mouth Daily Active hyoscyamine (Anaspaz,Levsin) 0.125 MG tablet Dissolve 2 (TWO) tablets under tongue FOUR times daily as needed for spasm Active oxyCODONE-acetamin ophen (Percocet) 5-325 MG tabletIndications: Chronic abdominal pain Take 1 tablet by mouth Daily as needed for severe pain 30 tablet 02/23/20 25 025 Active LORazepam (Ativan) 0.5 MG tabletIndications: Anxiety Take 1 tablet (0.5 mg) by mouth Daily as needed for anxiety for up to 15 days 15 tablet 11/16/19 25 025 Discontin ued(Thera py completed ) lacosamide (Vimpat) 100 MG tabletIndications: Alteration of awareness Take 1 tablet (100 mg) by mouth in the morning and 1 tablet (100 mg) before bedtime. 60 tablet 1 12/20/19 25 025 Discontin ued(Reord er) lamoTRIgine (LaMICtal) 150 MG tabletIndications: Alteration of awareness Take 1 tablet (150 mg) by mouth Daily 30 tablet 1 01/05/20 25 025 Discontin ued(Reord er) oxyCODONE-acetamin ophen (Percocet) 5-325 MG tablet 02/15/20 25 025 Discontin ued(Reord er) Active Problems Problem Noted Date Diagnosed Date Chronic constipation 02/22/2025 Stress-related physiological response affecting medical condition 02/22/2025 Rash 02/09/2025 Seizure 02/07/2025 Overview (02/07/2025): --- presumed epilepsy. Likely focal onset given infarcts. Assessment & Plan (02/22/2025 4:54 PM EDT): Under the care of neurology Assessment & Plan (02/07/2025 6:12 PM EDT): --- presumed epilepsy. Likely focal onset given infarcts. Driving - does not drive. WWE - postmenopausal. (Continue current regimen.) LTG, LCM levels. Orders: lacosamide (Vimpat) 100 MG tablet; Take 1 tablet (100 mg) by mouth in the morning and 1 tablet (100 mg) before bedtime. Carotid stenosis, bilateral 02/07/2025 Assessment & Plan (02/07/2025 6:12 PM EDT): US carotids - [facility] Orders: Vascular US carotid artery duplex bilateral; Future Sequelae of cerebral infarction 02/07/2025 Assessment & Plan (02/07/2025 6:12 PM EDT): (Continue current regimen.) Echo c bubble study. Gait disturbance 02/07/2025 Assessment & Plan (02/07/2025 6:12 PM EDT): PT ([facility]). Cigarette nicotine dependenc e with nicotine-induced disorder 01/26/2025 Assessment & Plan (01/26/2025 11:17 AM EDT): The patient has been advised of the risks of continued smoking: stroke, [place], all forms of cancer, lung disease, and . Options for quitting smoking include: cold turkey, hypnosis, acupuncture, nicotine replacement meds (gum, lozenges, and patches), Buproprion, and Varenicline. At this time pt is encouraged to evaluate their goals for wanting to quit smoking, and reach out to provider when ready to start this process Dysuria 12/21/2024 Assessment & Plan (12/21/2024 6:33 [...] of left lung 10/27/2024 Assessment & Plan (02/22/2025 4:56 PM EDT): Continue with oncology Assessment & Plan (01/26/2025 11:18 AM EDT): Continue with oncology Assessment & Plan (10/27/2024 4:59 PM EDT): Continue with oncology Centrilobular emphysema 10/27/2024 residential (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 steroids 10/11 Mass of right parotid gland 10/27/2024 Prediabetes 10/06/2024 Family history of prothrombin gene mutation 09/11 CVA (cerebral vascular accident) 05/18/2024 Assessment & Plan (02/22/2025 4:55 PM EDT): recent hospitalization at [facility] around 10/04/24, was also sent to [...] now under the care of Dr Lockwood Assessment & Plan (01/26/2025 11:18 AM EDT): recent hospitalization at [facility] around 10/04/24, was also sent to [...] still continue to go to be seen Scheduled with Dr Lockwood for 02/07/25 Assessment & Plan (10/28/2024 11:55 AM EDT): recent hospitalization at [facility] around 10/04/24, was also sent to [...] Gastroesophageal reflux disease 05/18/2024 Assessment & Plan (01/26/2025 11:08 AM EDT): Pantoprazole Has GI appt scheduled for 01/30/25 Assessment & Plan (12/21/2024 6:35 PM EDT): Stop esomeprazole Trial pantoprazole Carcinoma in situ of ascending colon 05/10/2024 Assessment & Plan (01/26/2025 11:08 AM EDT): Hx of this noted Has GI appt for 01/30/25 Heart disease 04/27/2024 Syncope and collapse 01/04/2024 Assessment & Plan (02/22/2025 4:58 PM EDT): Likely related to overall deconditioning, dehydration, extreme heat conditions Urged her to remain well hydrated Assessment & Plan (01/04/2024 4:03 PM EDT): Syncope - preceded by lightheaded, nauseous. Passed out for 1 min. She feels intermittently dizzy and lightheaded and as a result she was taken off of her antihypertensives, she was previously on amlodipine/imdur. Was confused after regaining consciousness. Patient went to [facility]. CTA - No PE Will get an [...] Chronic abdominal pain 10/12/2023 Assessment & Plan (02/22/2025 4:56 PM EDT): DD: constipation, GERD, ulcer Hx colon cancer [...] will need to see GI as scheduled Assessment & Plan (01/26/2025 11:17 AM EDT): DD: constipation, GERD, ulcer Hx colon cancer Will see GI next week Labs essential unremarkable CT: no acute findings, does have AAA, measured approx 3.4 (01/04) Pt is frustrated as she continues to have pain and nothing is being done about his I explained that while I do believe she is having pain, I cannot find a source to the pain She will need to see GI as scheduled Assessment & Plan (12/21/2024 6:33 PM EDT): [...] witho ut rupture 07/09/2023 Assessment & Plan (02/22/2025 4:57 PM EDT): Has seen vascular in the past Assessment & Plan (01/26/2025 11:21 AM EDT): Call was placed to vascular office Assessment & Plan (12/21/2024 6:34 PM EDT): [...] 2 months. Hypertension 07/09/2023 Assessment & Plan (01/26/2025 11:13 AM EDT): Please check blood pressure daily and record DASH diet Limit caffeine Take medication as directed Contact office if chest pain, pressure, dizziness, shortness of breath, swelling legs Recommend slow position changes Meds: losartan Assessment & Plan (10/27/2024 5:04 PM EDT): [...] 2:44 PM EDT): Stop Trelegy Will order Noeím-Ellipta and see if insurance will cover. Follow [...] as needed. Patient encouraged to quit smoking. Screening mammogram for breast cancer 07/09/2023 Assessment [...] symptoms 11/02/2024 11/02/2024 Tobacco user 10/27/2024 10/27/2024 Mass of left lung 01/04/2024 02/22/2025 Assessment & Plan (05/31/2024 9:44 AM EST): [...] upper lobe mass on CTA performed at [facility] on 12/27/23 in ED visit. Smoker - recently quit LDCT 08/04 - No left upper lobe mass. PET scan - lung nodule in left upper lobe is hypermetabolic. Refer to Oncology. Dr Grossman, also made aware. Assessment & Plan (01/06/2024 2:59 PM EDT): 2.2 cm left upper lobe mass on CTA performed at [facility] on 12/27/23 in ED visit. Smoker - [...] upper lobe mass on CTA performed at [facility] on 12/27/23 in ED visit. Smoker - quite one week ago. She is established with Dr Grossman and will reach out to him to see him for an earlier appointment to discuss this new finding. Previous hx of suspicious lung nodules. Acid reflux 07/09/2023 10/27/2024 Assessment & Plan (02/22/2024 2:31 PM EDT): Continue Pantoprazole as directed H/O: CVA (cerebrovascular accident) 07/09/2023 10/27/2024 Assessment & Plan (07/09/2023 11:07 PM EST): Residual dysarthria, right hemiparesis. On ASA, Statin. BP at goal. Encouraged smoking cessation Tobacco dependency 07/09/2023 Assessment & Plan (01/26/2025 11:07 AM EDT): The patient has been advised of the risks of continued smoking: stroke, [place], all forms of cancer, lung disease, and . Options for quitting smoking include: cold turkey, hypnosis, acupuncture, nicotine replacement meds (gum, lozenges, and patches), Buproprion, and Varenicline. At this time pt is encouraged to evaluate their goals for wanting to quit smoking, and reach out to provider when ready to start this process Assessment & Plan (12/21/2024 6:35 PM EDT): The patient has been advised of the risks of continued smoking: stroke, WV, all forms of cancer, lung disease, and [...] of the risks of continued smoking: stroke, WV, all forms of cancer, lung disease, and [...] nicotine patches and gum for the patient. Encounters Date Type Department Care Team Description 02/24/2025 Patient Outreach [address] [place] [address] Henok Hendrix MA 02/24/2025 Patient Outreach [address] [place] [address] Henok Hendrix MA 02/23/2025 Abstract [facility] [address] [place] [address] Wendy Burden NP 02/23/2025 Abstract [facility] [address] [place] [address] Wendy Burden NP 02/22/2025 11:30 AM EDT Office Visit [facility] [address] [place] [address] Wendy Burden NP Chronic abdominal pain (Primary Dx); Seizure (HCC); Cerebrovascular accident (CVA), unspecified mechanism (HCC); Mass of left lung; Adenocarcinoma of left lung (HCC); Infrarenal abdominal aortic aneurysm (AAA) without rupture; Syncope and collapse 02/21/2025 1:25 PM EDT Office Visit [facility] [address] [place] [address] Magui Juan, INSULATION MACHINE OPERATOR-INSTRUMENTATION INSTRUCTOR Inflamed seborrheic keratosis 02/21/2025 Bamboo flowsheet [facility] [address] [place] [address] Magui Juan INSULATION MACHINE OPERATOR-INSTRUMENTATION INSTRUCTOR 02/21/2025 Travel 02/15/2025 Patient Outreach [address] [place] [address] Henok Hendrix MA 02/09/2025 Orders Only [facility] [address] [place] [address] Wendy Burden NP Rash (Primary Dx) 02/09/2025 Patient Outreach [facility] [address] [place] [address] Henok Hendrix MA 02/07/2025 9:45 AM EDT Office Visit [facility] [place] [facility] [address] [place] [address] Aj Lockwood MD Seizure (HCC) (Primary Dx); Carotid stenosis, bilateral; Sequelae of cerebral infarction; Gait disturbance; Stroke, lacunar (HCC); Cerebral artery occlusion with cerebral infarction (HCC); Other transient cerebral ischemic attacks and related syndromes; Patent foramen ovale (HHS-HCC); Alteration of awareness 02/07/2025 Bamboo flowsheet [facility] [address] [place] [address] Aj Lockwood MD 02/07/2025 Travel 01/26/2025 10:30 AM EDT Office Visit [facility] [address] [place] [address] Wendy Burden NP Chronic abdominal pain (Primary Dx); Cerebrovascular accident (CVA), unspecified mechanism (HCC); Malignant neoplasm of unspecified part of left bronchus or lung (HCC); Tobacco dependency; Gastroesophageal reflux disease, unspecified whether esophagitis present; Carcinoma in situ of ascending colon; Primary hypertension ; Cigarette nicotine dependence with nicotine-induced disorder; Adenocarcinoma of left lung (HCC); Infrarenal abdominal aortic aneurysm (AAA) without rupture 01/26/2025 Patient Outreach [facility] [address] [place] [address] Henok Hendrix MA 01/26/2025 Bamboo flowsheet [facility] [address] [place] [address] Wendy Burden NP 01/16/2025 External Result Encounter [facility] External Department Unsolicited Tammie Shah CLOTILDE Quiñones 01/04/2025 Orders Only [facility] [address] [place] [address] Wendy Burden NP Epigastric pain (Primary Dx); Chronic abdominal pain; Gastroesophageal reflux disease, unspecified whether esophagitis present; History of colon polyps; Cerebrovascular accident (CVA), unspecified mechanism (HCC) 01/04/2025 Patient Outreach [address] [place] [address] Henok Hendrix MA 01/04/2025 Refill [facility] [address] [place] [address] Wendy Burden, CLOTILDE Alteration of awareness 01/04/2025 Refill [facility] [address] [place] [address] Wendy Burden NP 01/03/2025 Refill [facility] [address] [place] [address] Wendy Burden NP Chronic abdominal pain; Epigastric pain 01/02/2025 Patient Outreach [address] [place] [address] Henok Hendrix MA 12/29/2024 Clinisync Result Encounter [facility] External Department Unsolicited Wnedy Burden NP 12/22/2024 External Result Encounter [facility] External Department Unsolicited Wendy Burden NP 12/22/2024 Clinisync Result Encounter [facility] External Department Unsolicited Wendy Burden NP 12/21/2024 4:00 PM EDT Office Visit [facility] [address] [place] [address] Wendy Burden NP Epigastric pain (Primary Dx); Gastroesophageal reflux disease, unspecified whether esophagitis present; Infrarenal abdominal aortic aneurysm (AAA) without rupture; Chronic abdominal pain; Dysuria; Tobacco dependency 12/21/2024 Bamboo flowsheet [facility] [address] [place] [address] Wendy Burden NP 12/19/2024 Refill [facility] [address] [place] [address] Wendy Burden NP Alteration of awareness 12/14/2024 Clinisync Result Encounter [facility] External Department Unsolicited Provider, Generic External Data 12/07/2024 Patient Outreach [facility] [address] [place] [address] Henok Hendrix MA 12/06/2024 Orders Only [facility] [address] [place] [address] Adam Mckeon MD 12/02/2024 Patient Outreach [facility] [address] [place] [address] Henok Hendrix MA 12/01/2024 Orders Only [facility] [address] [place] [address] Wendy Burden NP Cerebrovascular accident (CVA), unspecified mechanism (HCC) (Primary Dx); Syncope and collapse; Peripheral polyneuropathy from Last 3 Months Immunizations Immunization Administration [...] week 12/08/2023 How often do you attend [facility] or jehovah's witness services? Never 12/08/2023 Do you belong to any clubs o r organizations such as faith groups, unions, fraternal or athletic groups, or [...] Recorded Patient Health Questionnaire-2 Score 1 08/02/2024 [facility] - Occupational Stress Questionnaire Answer [...] F) 02/22/2025 10:50 AM EDT Respiratory Rate 20 01/26/2025 10:2 7 AM EDT Oxygen Saturation 94% 02/22/2025 10: 50 AM EDT Inhaled Oxygen Concentration - - Weight 62.5 kg (137 lb 12.8 oz) 025 10:50 AM EDT Height 157.5 cm (5' 2 ) 02/07/2025 9:38 AM EDT Body Mass Index 25.2 02/07/2025 9:38 AM EDT Plan of Treatment Upcoming Encounters Date Type Department Care Team (Late st Contact Info) Description 03/07/2025 4:15 PM EDT Office Visit [facility] [address] [facility] [address] [place] [address] Aj Lockwood MD [address] [id number] 03/23/2025 9:05 AM EDT Office Visit [facility] [place] [facility] [address] [facility] [address] [place] [address] Magui Juan INSULATION MACHINE OPERATOR-INSTRUMENTATION INSTRUCTOR [address] [facility] [address] [place] [address] 04/11/2025 10:15 AM EDT Office Visit [facility] [address] [facility] [address] [place] [address] Aj Lockwood MD 53[address] [facility] [address] [address] Health Maintenance Due Date Last Done Comments CT Colonography 1950 FIT 1950 FOBT 1950 Sigmoidoscopy 1950 Mammogram 07/03/2023 07/03/2022 Influenza Vaccine (#1) 2025 FIT-DNA 04/12/2026 04/12/2023 Colonoscopy 06/21/2034 06/21/2024, 06/12, 03/25/2024 Colorectal Cancer Screening 06/21/2034 Pneumococcal Vaccine: 65+ Years Completed , 07/03/2022 Procedures Procedure Name Priority Date/Time Associated Diagnosis Comments CRYOTHERAPY SKIN LESION Routine 02/21/2025 1:27 PM EDT Inflamed seborrheic keratosis CT CHEST WO IV CONTRAST 01/16/2025 2:[address] ABDOMEN PELVIS W CON 12/29/2024 11:00 AM EDT [facility] LIPASE Routine 12/22/2024 10:55 AM EDT ALL AMYLASE Routine 12/22/2024 10:55 AM EDT [facility] CMP (CMP) (FOR REMOTE [facility] USE) Routine 12/22/2024 10:55 AM EDT [facility] URINE MICROSCOPIC ONLY Routine 12/22/2024 10:41 AM EDT [facility] UA (CLEAN/CATCH) MICROSCOPIC IF INDICATE Routine 12/22/2024 10:41 AM EDT URINE CULTURE - [facility] Routine 12/22/2024 10:41 AM EDT CULTURE, URINE, ROUTINE Routine 12/22/2024 10:41 AM EDT [facility] CMP (CMP) (FOR REMOTE [facility] USE) Routine 12/14/2024 11:00 AM EDT ALL CBC WITH AUTO DIFF Routine 12/14/2024 11:00 AM EDT XR CHEST 1 VIEW Routine 12/06/2024 9:54 AM EDT from Last 3 Months Results * Cryotherapy, skin lesion (02/21/2025 1:27 PM EDT) us Magui Juan INSULATION MACHINE OPERATOR-INSTRUMENTATION INSTRUCTOR DERM PROCEDURE ORDERAB LES Final Result * CT chest wo IV contrast (01/16/2025 2:39 PM EDT) Anatomical Region Laterality Modality Body, Chest Computed Tomogra phy 01/16/2025 2:39 PM EDT Impressions 01/16/2025 2:47 PM EDT Interval reduction in size of the left upper lobe mass. No developing hilar or mediastinal adenopathy. No distal metastatic disease. Impression dictated by: Adam Berger M.D. 01/16/2025 2:45 PM Dictation Location: [id number]-16 Transcribed By: [facility] 01/16/25 1445 Dictated By: Adam Berger DO 01/16/25 1439 Signed By: <Electronically signed by Adam Berger DO in OV> 01/16/25 1445 Narrative 01/16/2025 2:47 PM EDT [facility] [place] [address] [place] [address] CT Scan Report Signed Patient: Bhupendra Rubi MR#: [id number] : 1950 Acct:[id number] Age/Sex: 74 / F ADM Date: 01/16/25 Loc: Room: Type: [facility] Attending Dr: Judit Martini MD Copies to: MD Tammie Potter, OUMAR Martini MD Ordering Provider: Tammie Shah APRN Date of Service: 01/16/25 CT/CT chest wo con: C34.90 - Malignant neoplasm of unspecified part of unspec... CT Chest without contrast TECHNIQUE: Axial imaging with 2-D reconstruction. The CT exam was performed using one or more the following dose reduction techniques: Automated exposure control, adjustment of the MA and/or Kv according to patient size, or use of the iterative reconstruction technique. History: Restaging lung cancer. Smoker. COMPARISON: None THYROID: Unremarkable TRACHEA AND BRONCHI: Patent ESOPHAGUS: Unremarkable. HEART: Within normal limits PERICARDIAL EFFUSION: None CORONARY ARTERY CALCIFICATION: Present MEDIASTINUM: No adenopathy. No pneumoperitoneum. No mediastinal hematoma. PULMONARY MALCOLM: No hilar mass or adenopathy is seen. THORACIC AORTA Unremarkable LUNG NODULE and redemonstration of subpleural lateral left upper lobe lung mass. Interval reduction in size. Maximal dimension 2.4 cm. Previous measurement 3.3 cm. LUNGS: Focal emphysematous changes. PLEURAL EFFUSION: None PNEUMOTHORAX: No pneumothorax seen. CHEST WALL: No abnormality AXILLA:Unremarkable BONY STRUCTURES Intact UPPER ABDOMEN: Images of the upper abdomen are noncontributory. CT/CT chest wo con Procedure Note Radiology, Radiologist, - 01/16/2025 [facility] [place] [address] [place] [address] CT Scan Report Signed Patient: Bhupendra Rubi MMR#: [id number] : 3Acct:[id number] Age/Sex: 74 / FADM Date: 01/16/25 [facility]: [facility] Att[facility] Dr: Judit Martini MD Copies to: MD Tammie Potter, INSULATION MACHINE OPERATOR Judit Martini MD Ordering Provider: Tammie Shah APRN Date of Service: 01/16/25 CT/CT chest wo con: C34.90 - Malignant neoplasmof unspecified part of unspec... CT Chest without contrast TECHNIQUE: Axial imaging with 2-D reconstruction. The CT exam wasperformed using one or more the following dose reduction techniques: Automated exposure control,adjustment of the MA and/or Kv according to patient size, or use of the iterative reconstructiontechnique. History: Restaging lung cancer. Smoker. COMPARISON: None THYROID: Unremarkable TRACHEA AND BRONCHI: Patent ESOPHAGUS: Unremarkable. HEART: Within normal limits PERICARDIAL EFFUSION: None CORONARY ARTERY CALCIFICATION: Present MEDIASTINUM: No adenopathy. No pneumoperitoneum. No mediastinalhematoma. PULMONARY MALCOLM: No hilar mass or adenopathy is seen. THORACIC AORTA Unremarkable LUNG NODULE and redemonstration of subpleural lateral left upper lobe lungmass. Interval reduction in size. Maximal dimension 2.4 cm. Previous measurement 3.3 cm. LUNGS: Focal emphysematous changes. PLEURAL EFFUSION: None PNEUMOTHORAX: No pneumothorax seen. CHEST WALL: No abnormality AXILLA:Unremarkable BONY STRUCTURES Intact UPPER ABDOMEN: Images of the upper abdomen are noncontributory. CT/CT chest wo con IMPRESSION: Interval reduction in size of the left upper lobe mass. No developinghilar or mediastinal adenopathy. No distal metastatic disease. Impression dictated by: Adam Berger M.D. 01/16/2025 2:45 PM Dictation Location: RADIO-PC-16 Transcribed By: JOSE MIGUEL 01/16/25 1445 Dictated By: Adam Berger DO 01/16/25 1439 Signed By: <Electronically signed by Adam Berger DO in OV> 01/16/25 1445 Tammie Shah DRILL PRESS HAND IMG CT PROCEDURES Final Resul t * CT ABDOMEN PELVIS W CON (12/29/2024 11:00 AM EDT) Anatomical Region Laterality Modality Other 12/29/2024 11:0 0 AM EDT Narrative 12/29/2024 11:03 [place] [address] CT Scan Report Signed Patient: BHUPENDRA RUBI MR#: [id number] : 1950 Acct:[id number] Age/Sex: 74 / F ADM Date: 12/29/24 Loc: CT Attending Dr: Wendy Burden NP Ordering Physician: Wendy Burden NP Date of Service: 12/29/24 Procedure(s): CT abdomen pelvis w con Accession Number(s): [id number] cc: Wendy Burden NP The [address] [address] Patient Name: BHUPENDRA RUBI MRN: [id number] date: 1950 Sex: F Assigned Patient Location: CT Current Patient Location: CT Accession/Order Number: [id number] Exam Date: 12/29/2024 10:36 Report Date: 12/29/2024 11:00 At the request of: WENDY BURDEN NP Procedure: CT abdomen pelvis w con CT ABDOMEN AND PELVIS WITH CONTRAST CLINICAL DATA: Chronic abdominal pain. COMPARISON: 11/11/2022 and PET scan 01/23/2024 Spiral images were obtained through the abdomen and pelvis following oral and 100 mL of Omnipaque 300. This CT exam was performed using one or more following dose reduction techniques: Automated exposure control, adjustment of the mA and/or kV according to patient size, or use of iterative reconstruction technique. Limited cuts through the lung bases show atelectasis and/or scarring. The gallbladder is surgically absent. No intrahepatic masses are identified. The spleen, pancreas and adrenal glands show no acute findings. The renal nephrograms are symmetric. No hydronephrosis is present. Renal cysts are seen. There is similar mild aneurysmal dilatation of the abdominal aorta with diameter up to 3.4 cm. The is atherosclerotic plaque and mural thrombus similar to the comparison. There is no lymphadenopathy or ascites. Small bowel loops are not distended. There is air and stool within the colon. Degenerative changes are visualized at the spine. Images through the pelvis show normal caliber small bowel loops. There is no appendiceal inflammation. The distal colon is decompressed. No diverticular disease is noted. The uterus is surgically absent. No ascites is seen. CT/CT abdomen pelvis w con IMPRESSION: MINOR BIBASILAR ATELECTASIS OR SCARRING. SMALL RENAL CYSTS. NO BOWEL OR URINARY TRACT OBSTRUCTION. SIMILAR ABDOMINAL AORTIC ANEURYSM. NO ACUTE FINDINGS. Impression dictated by: Darshana Brar M.D. 12/29/2024 11:00 AM Dictation Location: [place] [address] Electronically authenticated by: [id number] Y Date: 12/29/2024 11:00 Dictated By: Darshana Brar M.D. Signed By: 12/29/24 1103 DD/ 1100 TD/TT: Ironworker: Procedure Note Radiology, Radiologist, MD - 12/29/2024 [place] [address] CT Scan Report Signed Patient: BHUPENDRA RUBI MMR#: [id number] : 1950cct:[id number] Age/Sex: 74 / FADM Date: 12/29/24 Loc: CT Attending Dr: Wendy Burden NP Ordering Physician: Wendy Burden NP Date of Service: 12/29/24 Procedure(s): CT abdomen pelvis w con Accession Number(s): [id number] cc: Wendy Burden NP The [address] [address] Patient Name: BHUPENDRA RUBI MRN: [id number] date: 1950 Sex: F Assigned Patient Location: CT Current Patient Location: CT Accession/Order Number: [id number] Exam Date: 12/29/2024 10:36 Report Date: 12/29/2024 11:00 At the request of: WENDY BURDEN NP Procedure: CT abdomen pelvis w con CT ABDOMEN AND PELVIS WITH CONTRAST CLINICAL DATA: Chronic abdominal pain. COMPARISON: 11/11/2022 and PET scan 01/23/2024 Spiral images were obtained through the abdomen and pelvis following oraland 100 mL of Omnipaque 300. This CT exam was performed using one or more following dose reduction techniques: Automated exposure control,adjustment of the mA and/or kV according to patient size, or use of iterativereconstruction technique. Limited cuts through the lung bases show atelectasis and/or scarring. The gallbladder is surgically absent. No intrahepatic masses areidentified. The spleen, pancreas and adrenal glands show no acute findings. The renal nephrograms are symmetric. No hydronephrosis is present. Renal cysts are seen. There is similar mild aneurysmal dilatation of the abdominal aorta with diameter up to 3.4 cm. The is atherosclerotic plaque and mural thrombus similar to the comparison. There is no lymphadenopathy or ascites. Small bowel loops are not distended. There is air and stool within the colon. Degenerative changes are visualized at the spine. Images through the pelvis show normal caliber small bowel loops. There isno appendiceal inflammation. The distal colon is decompressed. Nodiverticular disease is noted. The uterus is surgically absent. No ascites is seen. CT/CT abdomen pelvis w con IMPRESSION: MINOR BIBASILAR ATELECTASIS OR SCARRING. SMALL RENAL CYSTS. NO BOWEL OR URINARY TRACT OBSTRUCTION. SIMILAR ABDOMINAL AORTIC ANEURYSM. NO ACUTE FINDINGS. Impression dictated by: Darshana Brar M.D. 12/29/2024 11:00 AM Dictation Location: [place] [address] Electronically authenticated by: [id number] Y Date: 511:00 Dictated By: Darshana Brar M.D. Signed By:12/29/24 1103 DD/ 1100 TD/TT: Ironworker: Ewndy Jenise MABRY [facility] IMAGING Final Result * [facility] LIPASE (12/22/2024 10:55 AM EDT) LIPASE 31.0 16.0 - 77.0 U/L TB 12/22/2024 10:5 5 AM EDT 12/22/2024 10:58 AM EDT Narrative CLINISYNC - 12/22/2024 11:47 AM EDT Wendy Woodsonenrique MABRY CLINIS[facility] Final Result CLINISYNC TB * (ABNORMAL) [facility] CMP (CMP) (FOR REMOTE [facility] USE) (12/22/2024 10:55 AM EDT) Only the most recent of2 [...] 0.55 - 1.02 mg/dL TBH TBH EGFR-AF AZERBAIJANI >60 >=60 mL/min/1. 73m 2 TBH TBH EGFR-NON AF AZERBAIJANI >60 >=60 mL/min/1. 73m 2 TBH BUN [...] 12/22/2024 11:47 AM EDT us Wendy Burden DRILL PRESS HAND CLINISYNC Final Result Performing Organization Address [facility]/ZIP Co de Phone Number [facility] * ALL AMYLASE (12/22/2024 10:55 AM EDT) AMYLASE 64 25 - 115 U/L [facility] 12/22/2024 10:5 5 AM EDT 12/22/2024 10:58 AM EDT Narrative CLINISYNC - 12/22/2024 11:47 AM EDT us Wendy Burden NP CLINISYNC Final Result Performing Organization Address [facility] Phone [facility] URINE CULTURE - FR (12/22/2024 10:41 AM EDT) URINE CULTURE - FR Urine Culture - FR 75,000 colonies/ml mixed [facility] URINE CULTURE - FR bacterial skin contaminants [facility] URINE CULTURE - FR 2 Days [facility] URINE CULTURE - [facility] URINE CULTURE - FR Testing performed at [facility] URINE CULTURE - [facility] [address] [place] [address] [facility] 12/22/2024 10:4 1 AM EDT 12/22/2024 10:58 AM EDT Narrative CLINISYNC - 12/26/2024 12:55 PM EDT us Wendy Burden DRILL PRESS HAND LAB BLOOD ORDERABLES Final Resu lt Performing Organization Address City/[facility]/ZIP Co de Phone Number [facility] * (ABNORMAL) [facility] URINE MICROSCOPIC ONLY (12/22/2024 10:41 AM EDT) TB WBC 5-10(A) NONE SEEN #/HPF TB TB RBC NONE SEEN 0 - 2 #/HPF [...] Wendy Burden NP CLINISYNC Final Result [facility]INISYNC [facility] * (ABNORMAL) [facility]H UA (CLEAN/CATCH) MICROSCOPIC IF INDICATE (12/22/2024 10:41 AM EDT) [facility] COLOR URINE LT. YELLOW YELLOW TBH CLARITY [...] Wendy Burden NP CLINISYNC Final Result [facility]INISYNC [facility] * Urine culture (12/22/2024 10:41 AM EDT) Pathologist [facility] NOTE 75,000 colonies/ml mixed bacterial skin contaminants 2 Days 12/24/2024 7:25 AM EDT [facility] Urine Urine specimen obtained by clean catch procedure / Unknown 12/22/2024 10:41 AM EDT 12/22/2024 1:51 PM EDT Comment:Clean-Voided Midstre am Wendy Burden NP LAB MICROBIOLOGY - GENERAL TIMOTHY FARIAS Final Result [facility] [address] [place] [address], [facility] [address] [place] [address] * (ABNORMAL) ALL CBC WITH AUTO DIFF (12/14/2024 11:00 AM EDT) TBH WBC 10.7 4.0 - 11.0 10 [...] CLINISYNC F inal Result CLINISYNC [facility] * XR chest 1 view (12/06/2024 9:54 AM EDT) Anatomical Region Laterality Modality Chest Radiographic Meagan ging Adam Mckeon MD IMG XR PROCEDURES Final Resul t from Last 3 Months Insurance [facility] MEDICARE ADVANTAGE Care Teams Tube Machine Operator Relationship Specialty Start Date End Date Charanjit Chen MD [address] [place] [address] PCP - General Family Medicine 02/11/24 Wendy Burden NP [address] [place] [address] JACKIE House MA 01/10/25 Henok Hendrix MA [address] [place] [address] [facility] 05/24/24
--- OUTSIDE RECORDS SUMMARY | 2025-02-28 13:31 | XMS_ITS | Encounter Summary ---
Author Organization [facility] Address [address] [place] [address] Care Team Providers Care Identifier Horse Name Role Phone Charanjit Chen MD Primary Care Provider Henok Hendrix MA Unavailable [phone] Wendy Burden NP Unavailable [phone] Encounter Details Date Type Department Care Team (Late st Contact Info) Description 12/06/2024 Orders Only [facility] [address] [place] [address] Adam Mckeon MD [address] [place], [place] [id number] Social History Tobacco Use Types Packs/Day Years [...] often do you attend chur ch or church services? Never 12/08/2023 Do you belong to any clubs o r organizations such as caodaism groups, unions, fraternal or athletic groups, or [...] Recorded Patient Health Questionnaire-2 Score 1 08/02/2024 [facility] of Occupat ional Health - [...] 4:15 PM EDT Office Visit [facility] Neurology [address] [facility] [address] [place] [address] Aj Lockwood MD 8219 [facility] [address] [place] [address] 03/23/2025 9:05 AM EDT Office Visit [facility] [address] [facility] [address] [place] [address] Magui Juan, MOLDER SHOULDER PAD-ARMATURE CONNECTOR [address] [facility] [address] [place] [address] 04/11/2025 10:15 AM EDT Office Visit [facility] [place] [facility] [address] [place] [address] Aj Lockwood MD 6813 [facility] [address] [place] [address] documented as of this encounter Procedures Procedure [...] documented as of this encounter Care Teams Identifier Horse Relationship Specialty Start Date End Date Charanjit Cehn MD [address] [place] [address] PCP - General Family Medicine 02/11/24 Wendy Burden NP [address] [place] [address] PCP - Lacy MARIE 01/10/25 Henok Hendrix MA [address] [place] [address] Family Medicine 05/24/24 documented as of this encounter
--- OUTSIDE RECORDS SUMMARY | 2025-02-28 13:31 | XMS_ITS | Encounter Summary ---
Author Organization [facility] Address [address] [place] [address] Care Team Providers Care K 9 Handler/ Deputy Name Role Phone Charanjit Chen MD Primary Care Provider [phone] Betty Singh NP Unavailable Anne Hartley LPN Unavailable Henok Hendrix MA Unavailable [phone] Wendy Burden NP Unavailable [phone] Encounter Details Date Type Department Care Team (Late st Contact Info) Description 04/22/2024 Orders Only [facility] [address] [place] [address] Betty Singh NP Social History Tobacco Use [...] How often do you attend chur or jehovah's witness services? Never 12/08/2023 Do you belong to any clubs o r organizations such as protestant groups, unions, fraternal or athletic groups, or [...] Recorded Patient Health Questionnaire-2 Score 0 03/24/2024 [facility] [place] of Occupat ional Health - Occupational Stress [...] a correction (including now)? No 12/08/2023 Comments Unknown Sex [...] Neurology [address] [place] [address] Aj Lockwood MD 5319 [facility] [address] [place] [id number] 03/23/2025 9:05 AM EDT Office Visit [facility] [address] [place] [address] Magui Juan, ENTRY MANAGER-PREP ROOM SUPERVISOR [address] [place] [address] 04/11/2025 10:15 AM EDT Office Visit [facility] [place] [facility] [address] [place] [address] Aj Lockwood MD [address] [facility] [address] [place], [place] [phone] documented as of this encounter Procedures Procedure Name Priority Date/Time Associated Diagnosis Comments MISCELLANEOUS LAB TEST Routine 04/21/2024 9:22 AM EDT documented in this encounter Results * - Miscellaneous Test (04/21/2024 9:22 AM EDT) Betty Singh ELECTRICAL INSPECTOR LAB BLOOD ORDERABLES Fin al Result documented in this encounter Visit Diagnoses Not on filedocumented in this encounter Additional Health Concerns Assessment Noted Time PHQ-9 Depression Total Score: 5 07/09/20 23 2:09 PM EST A fall risk assessment has been complete d for the patient 12/08/2023 9:26 AM EDT documented as of this encounter Care Teams K 9 Handler/ Deputy Relationship Specialty Start Date End Date Charanjit Chen MD [address] [place] [address] PCP - General Family Medicine 02/11/24 Wendy Burden NP [address] [place] [address] PCP - Lacy MARIE 01/10/25 Betty Singh NP [address] [place] [address] Nurse Practitioner Family Medicine 02/11/24 11/20/24 Anne Hartley LPN [address] [place] [address] Licensed Practical Nurse Family Medicine 03/25/2405/13 Henok Hendrix, CYNTHIA [address] [place] [address] Family Medicine 05/24/24 documented as of this encounter
--- OUTSIDE RECORDS SUMMARY | 2025-02-28 13:31 | XMS_ITS | Encounter Summary ---
Author Organization [facility] Address [address] [place] [address] Care Team Providers Care Circulation Representative Name Role Phone Shaikh NAHEED Horan Primary Care Provider [phone] Shaikh NAHEED Horan Unavailable [phone] Shaikh NAHEED Horan Primary Care Provider [phone] [place] TELEPHONE SOLICITOR SUPERVISOR Unavailable Unavailable Charanjit Chen MD Primary Care Provider [phone] Betty Singh PROGRAMMING MANAGER Unavailable Anne Hartley TELEPHONE SOLICITOR SUPERVISOR Unavailable Henok Hendrix MA Unavailable [phone] Wendy Burden PROGRAMMING MANAGER Unavailable [phone] Reason for Visit * Reason Comments Med Refill Encounter Details Date Type Department Care Team (Late st Contact Info) Description 08/06/2023 Refill [facility] [address] [place] [address] Shaikh Horan MD [address] [place] [address] Social History Tobacco Use Types Packs/Day Years [...] 4:15 PM EDT Office Visit [facility] Neurology [address] [place] [address] Aj Lockwood MD 5319 [facility] [address] [id number] 03/23/2025 9:05 AM EDT Office Visit [facility] [place] [address] [place] [address] Magui Juan APRN-PREFITTER [address] [place] [address] 04/11/2025 10:15 AM EDT [facility] [address] [place] [address] Aj Lockwood MD 5319 [facility] [address] [address] documented as of this encounter Visit Diagnoses Not on filedocumented in this encounter Additional Health Concerns Assessment Noted Time PHQ-9 Depression Total Score: 5 07/09/20 23 2:09 PM EST documented as of this encounter Care Teams Circulation Representative Relationship Specialty Start Date End Date Shaikh Horan MD PCP - General Internal Medicine 01/26/23 10/11/23 Shaikh Horan MD [address] [place] [address] PCP - Devoted 04/12/23 11/10/23 Shaikh Horan MD [address] [place] [address] PCP - General Internal Medicine 10/12/23 02/10/24 Charanjit Chen MD [address] [place] [address] PCP - General Family Medicine 02/11/24 Wendy Burden NP [address] [place] [address] PCP - Lacy MARIE 01/10/25 Flower Stokes LPN Licensed Practical Nurse Family Medicine 11/26/23 Betty Singh NP [address] [place] [address] Nurse Practitioner Family Medicine 02/11/24 11/20/24 Anne Hartley LPN [address] [place] [address] Licensed Practical Nurse Family Medicine 03/25/2405/13 Henok Hendrix MA [address] [place] [address] Family Medicine 05/24/24 documented as of this encounter
--- OUTSIDE RECORDS SUMMARY | 2025-02-28 13:31 | XMS_ITS | Encounter Summary ---
Author Organization [facility] Address [address] [place] [address] Care Team Providers Care Social Services Name Role Phone Charanjit Chen MD Primary Care Provider Betty Singh DIAMOND SELECTOR Unavailable Henok Hendrix MA Unavailable [phone] Wendy Burden DIAMOND SELECTOR Unavailable [phone] Encounter Details Date Type Department Care Team (Late st Contact Info) Description 06/14/2024 Orders Only [facility] [address] [place] [address] Shaikh Horan MD [address] [facility] [place] [address] Social History Tobacco Use Types Packs/Day Years [...] Recorded Patient Health Questionnaire-2 Score 0 03/24/2024 [facility] [place] of Occupat ional Health - Occupational Stress [...] Neurology [address] [place] [address] Aj Lockwood MD 5319 [facility] [address] [place], [place] [id number] 03/23/2025 9:05 AM EDT Office Visit [facility] [place] [facility] [address] [place] [address] Magui Juan, DATA MANAGEMENT ASSOCIATE-KICK PLATE INSTALLER [address] [place] [address] 04/11/2025 10:15 AM EDT Office Visit [facility] Neurology [address] [place] [address] Aj Lockwood MD 5319 [facility] [address] [place], [place] [phone] documented as of this encounter Procedures Procedure [...] documented as of this encounter Care Teams Social Services Relationship Specialty Start Date End Date Charanjit Chen MD [address] [place] [address] PCP - General Family Medicine 02/11/24 Wendy Burden NP [address] [place] [address] PCP - Lacy MARIE 01/10/25 Betty Singh NP [address] [place] [address] Nurse Practitioner Family Medicine 02/11/24 11/20/24 Henok Hendrix MA [address] [place] [address] Family Medicine 05/24/24 documented as of this encounter
--- OUTSIDE RECORDS SUMMARY | 2025-02-28 13:32 | XMS_ITS ---
Author Organization [facility] Address [address] [place] [address] Care Team Providers Care Minister Assistant Name Role Phone Charanjit Chen MD Primary Care Provider [phone] Henok Hendrix MA Unavailable [phone] Wendy Burden NP Unavailable 30 Day Monitoring Program Status:Enrolled (Active) Start date:02/15/2025 Enrollment date:02/15/2025 Case Team Name Relationship Phone Henok Hendrix MA(Responsible Staff) [phone] Continued Care and Services Coordination
--- OUTSIDE RECORDS SUMMARY | 2025-02-28 13:32 | XMS_ITS | Encounter Summary ---
Author Organization [facility] Address [id number] [address] [place] [address] Care Team Providers Care Strategy Lead Name Role Phone Singh, Betty Jonathan NON DESTRUCTIVE TESTING SUPERVISOR-RECRUITING TEAM LEAD Primary Care Pr ovider Encounter Details Date Type Department Care Team (Late st Contact Info) Description 10/07/2024 Orders Only [facility] [address] [place] [phone] Transcribe, Orders Support User Pain (Primary Dx) Social History Tobacco Use Types Packs/Day Years Used Date Smoking Tobacco: Former Cigarettes Smokeless Tobacco: Never Alcohol Use Standard Drinks/Week Comments Not Currently 0 (1 standard drink = 0.6 oz pur e alcohol) [facility] Utilities Answer Date Recorded In the past 12 months has [employer], oil, or water [employer] threatened to shut off services in your [...] pain documented in this encounter Care Teams Strategy Lead Relationship Specialty Start Date End Date Betty Singh, NON DESTRUCTIVE TESTING SUPERVISOR-RECRUITING TEAM LEAD [address] [place] [address] PCP - General Nurse Practitioner 06/13/24 documented as of this encounter
--- OUTSIDE RECORDS SUMMARY | 2025-02-28 13:32 | XMS_ITS | Encounter Summary ---
Author Organization [facility] Address [address] [facility] [place] [address] Care Team Providers Care Mill Operator Name Role Phone Charanjit Chen MD Primary Care Provider Henok Hendrix MA Unavailable [phone] Wendy Burden NP Unavailable [phone] Reason for Referral * Consultation (Routine) - Closed Specialty Diagnoses / Procedures Referred By Contmaeve t Referred To Contact Dermatology Diagnoses Rash Procedures ID OFFICE/OUTPATIENT NEW HIGH MDM 60 MINUTES Wendy Burden NP [address] [place] [address] Phone: tel: fax: Sandi Coronado MD [address] [address] Phone: tel: fax: Referral ID Status Reason Start Date Expiration Date V isits Requested Visits Authorized [id number] Closed Specialty Services Required 02/09/2025 08/08/2025 1 1 Encounter Details Date Type Department Care Team (Late st Contact Info) Description 02/09/2025 Orders Only [facility] [address] [place] [address] Wendy Burden NP [address] [place] [address] Sher (Primary Dx) Social History Tobacco Use Types [...] week 12/08/2023 How often do you attend [facility] or restorationism services? Never 12/08/2023 Do you [...] Patient Health Questionnaire-2 Score 1 08/02/2024 [facility] - Occupational Stress Questionnaire Answer [...] 4:15 PM EDT Office Visit N[facility] Neurology [address] [place] [address] Aj Lockwood MD 5319 [facility] [address] [phone] 03/23/2025 9:05 AM EDT Office Visit [facility] [address] [place] [address] Magui Juan APRN-MANGLE TENDER [address] [place] [address] 04/11/2025 10:15 AM EDT Office Visit [facility] Neurology [address] [facility] [address] [place] [address] Aj Lockwood MD 5319 [facility] [address] [address] Scheduled Referrals Name Type Priority Associated Diagnoses Order Schedule Ambulatory referral to Dermatology Outpatient Referral Routine Rash Expected: 02/09/2025 (Approximate), Expires: 08/12/2025 documented as of this encounter Visit Diagnoses Diagnosis Rash- Primary Rash and other nonspecific skin eruption documented in this encounter Additional Health Concerns Assessment Noted Time PHQ-9 Depression Total Score: 10 025 11:00 AM EST A fall risk assessment has been complete d for the patient 12/08/2023 9:26 AM EDT documented as of this encounter Care Teams Mill Operator Relationship Specialty Start Date End Date Charanjit Chen MD [address] [place] [address] PCP - General Family Medicine 02/11/24 Wendy Burden NP [address] [place] [address] JACKIE - Lacy MARIE 01/10/25 Henok Hendrix MA [address] [place] [address] Family Medicine 05/24/24 documented as of this encounter
--- OUTSIDE RECORDS SUMMARY | 2025-02-28 13:32 | XMS_ITS | Encounter Summary ---
Author Organization [facility] Address [address] [place] [address] Care Team Providers Care Watch Crystal Edge Grinder Name Role Phone Charanjit Chen MD Primary Care Provider Betty Singh IMPACT HAMMER OPERATOR Unavailable Henok [place]rix MA Unavailable [phone] Wendy Burden IMPACT HAMMER OPERATOR Unavailable [phone] Encounter Details Date Type Department Care Team (Late st Contact Info) Description 10/05/2024 Orders Only [facility] [address] [place] [address] Charanjit Chen MD [address] [place] [address] Social History Tobacco Use Types Packs/Day Years [...] How often do you attend chur or jew services? Never 12/08/2023 Do you [...] Recorded Patient Health Questionnaire-2 Score 1 08/02/2024 [facility] Occupat ional Health - Occupational Stress [...] 4:15 PM EDT Office Visit [facility] [address] [place] [address] Aj Lockwood MD [address] [facility] [address] [id number] 03/23/2025 9:05 AM EDT Office Visit [facility] [address] [place] [address] Magui Juan, FINGERPRINT EXPERT-RETORT FORKER [address] [place] [address] 04/11/2025 10:15 AM EDT Office Visit [facility] [place] [facility] [address] [place] [address] Aj Lockwood MD [address] [facility] [address] [place] [address] documented as of this encounter Procedures Procedure [...] documented as of this encounter Care Teams Watch Crystal Edge Grinder Relationship Specialty Start Date End Date Charanjit Chen MD [address] [place] [address] PCP - General Family Medicine 02/11/24 Wendy Burden NP [address] [place] [address] PCP - Lacy MARIE 01/10/25 Betty Singh NP [address] [place] [address] Nurse Practitioner Family Medicine 02/11/24 11/20/24 Henok [place]rix MA [address] [place] [address] Family Medicine 05/24/24 documented as of this encounter
--- OUTSIDE RECORDS SUMMARY | 2025-02-28 13:32 | XMS_ITS | Clinical Summary ---
Author Organization [facility] Address [id number] [address] [place] [address] Care Team Providers Care Fulling Machine Operator Name Role Phone Singh, Betty Jonathan MANAGER DIESEL-BACKEND PYTHON DEVELOPER Primary Care Pr ovider Allergies No known [...] Type Department Care Team Description 12/19/2024 Telephone [facility], A Department of [facility] [address] [facility] [address] [place] [address] Brenna Morel referral from Last 3 Months Immunizations Immunization Administration Dates Next Due Pneumococcal Conjugate 13-Valent 07/03/2022 Pneumococcal Conjugate 20-valent 07/09/2022 Social History Tobacco Use Types Packs/Day Years Used Date Smoking Tobacco: Former Cigarettes Smokeless Tobacco: Never Tobacco Cessation:Counseling Given: Not Answered Alcohol Use Standard Drinks/Week Comments Not Currently 0 (1 standard drink = 0.6 oz pur e alcohol) [facility] Utilities Answer Date Recorded In the [...] return home Medical Devices Not on file Insurance Advance Directives * Full Code (Latest Code Status on File) Date Activated Date Inactivated Comments 06/15/2024 1:10 PM 06/17/2024 7:37 PM Care Teams Fulling Machine Operator Relationship Specialty Start Date End Date Betty Singh, MANAGER DIESEL-BACKEND PYTHON DEVELOPER [address] [place] [address] PCP - General Nurse Practitioner 06/13/24
--- OUTSIDE RECORDS SUMMARY | 2025-02-28 13:32 | XMS_ITS ---
Author Organization [facility] Address [address] [place] [address] Care Team Providers Care Hi Teacher Name Role Phone Charanjit Chen MD Primary Care Provider [phone] Henok [place]rix MA Unavailable [phone] Wendy Burden NP Unavailable Inpatient Discharge Transitional Care Management (TCM) Status:Closed (Closed) Start date:02/14/2025 Enrollment date:02/15/2025 Enrollment reason:Identified using hospital discharge data End date:02/15/2025 Close reason:Moved to 30 Day Monitoring Program Overview Patient discharged from [facility] on 02/14. Please contact for hospital TOCand schedule follow-up appointment within 7-14 days. Continued Care and Services Coordination
--- OUTSIDE RECORDS SUMMARY | 2025-02-28 13:32 | XMS_ITS | Encounter Summary ---
Author Organization [facility] Address [id number] [address] [place] [address] Care Team Providers Care Wax Engraver Name Role Phone Singh, Betty Jonathan PLASTIC SHEETS SUPERVISOR-TECHNICAL LEAD Primary Care Pr ovider Encounter Details Date Type Department Care Team (Late st Contact Info) Description 06/15/2024 Orders Only [facility] [address] [place] [phone] Transcribe, Orders Support User Pain (Primary Dx) Social History Tobacco Use Types Packs/Day Years Used Date Smoking Tobacco: Former Cigarettes Smokeless Tobacco: Never Alcohol Use Standard Drinks/Week Comments Not Currently 0 (1 standard drink = 0.6 oz pur e alcohol) [facility] Utilities Answer Date Recorded In the past 12 months has [employer], oil, or water [employer] threatened to shut off services in your [...] documented as of this encounter Care Teams Wax Engraver Relationship Specialty Start Date End Date Betty Singh, PLASTIC SHEETS SUPERVISOR-TECHNICAL LEAD [address] [place] [address] PCP - General Nurse Practitioner 06/13/24 documented as of this encounter
--- OUTSIDE RECORDS SUMMARY | 2025-02-28 13:32 | XMS_ITS | Encounter Summary ---
Author Organization [facility] Address [id number] [address] [place] [address] Care Team Providers Care Family Service Center Director Name Role Phone Singh, Betty Jonathan WELLNESS PROGRAM ADMINISTRATOR-POLICE DETENTION ATTENDANT Primary Care Pr ovider Encounter Details Date Type Department Care Team (Late st Contact Info) Description 10/05/2024 Orders Only [facility] [address] [place] [phone] Transcribe, Orders Support User Pain (Primary Dx) Social History Tobacco Use Types Packs/Day Years Used Date Smoking Tobacco: Former Cigarettes Smokeless Tobacco: Never Alcohol Use Standard Drinks/Week Comments Not Currently 0 (1 standard drink = 0.6 oz pur e alcohol) [facility] Utilities Answer Date Recorded In the past 12 months has [employer], oil, or water [email or web address] threatened to shut off services in your [...] pain documented in this encounter Care Teams Family Service Center Director Relationship Specialty Start Date End Date Betty iSngh, WELLNESS PROGRAM ADMINISTRATOR-POLICE DETENTION ATTENDANT [address] [place] [address] PCP - General Nurse Practitioner 06/13/24 documented as of this encounter
--- OUTSIDE RECORDS SUMMARY | 2025-02-28 13:32 | XMS_ITS | Encounter Summary ---
Author Organization [facility] Address [address] [place] [address] Care Team Providers Care It Technician Name Role Phone Charanjit Chen MD Primary Care Provider [phone] Henok Hendrix MA Unavailable [phone] Wendy Burden NP Unavailable [phone] Encounter Details Date Type Department Care Team (Latest Contact Info) Description 02/21/2025 Travel Social History Tobacco Use Types Packs/Day Years [...] Recorded Patient Health Questionnaire-2 Score 1 08/02/2024 [facility] Questionnaire Answer Date [...] a fpc (including now)? No 12/08/2023 Comments No Sex and Gender Information Value Date Recorded Sex Assigned at Not on file Legal Sex Female 12:29 PM EDT Gender Identity Not on file Sexual Orientation Not on file documented as of this encounter Plan of Treatment Upcoming Encounters Date Type Department Care Team (Late st Contact Info) Description 03/07/2025 4:15 PM EDT Office Visit [facility]rology [address] [place] [address] Aj Lockwood MD [address] [id number] 03/23/2025 9:05 AM EDT Office Visit [facility] [address] [place] [address] Magui Juan, CUTTING AND PRINTING MACHINE OPERATOR-INSURANCE CLAIMS EXAMINER [address] [place] [address] 04/11/2025 10:15 AM EDT [facility] [address] [place] [address] Aj Lockwood MD [address] [id number] documented as of this encounter Visit Diagnoses Not on filedocumented in this encounter Additional Health Concerns Assessment Noted Time PHQ-9 Depression Total Score: 10 025 11:00 AM EST A fall risk assessment has been complete d for the patient 12/08/2023 9:26 AM EDT documented as of this encounter Care Teams It Technician Relationship Specialty Start Date End Date Charanjit Chen MD [address] [place] [address] PCP - General Family Medicine 02/11/24 Wendy Burden NP [address] [place] [address] PCP - Lacy MARIE 01/10/25 Henok Hendrix MA [address] [place] [address] Family Medicine 05/24/24 documented as of this encounter
--- OUTSIDE RECORDS SUMMARY | 2025-02-28 13:32 | XMS_ITS | Encounter Summary ---
Author Organization [facility] Address [address] [place] [address] Care Team Providers Care Rail Assembler Name Role Phone Charanjit Chen MD Primary Care Provider [phone] Henok Hendrix MA Unavailable [phone] Wendy Budren NP Unavailable [phone] Encounter Details Date Type Department Care Team (Late st Contact Info) Description 02/21/2025 Bamboo flowsheet [facility] [address] [facility] [address] [place] [address] Magui Juan, VICE PRESIDENT EDUCATION-DEHYDRATOR [address] [facility] [address] [place] [address] Social History Tobacco Use Types Packs/Day Years [...] Recorded Patient Health Questionnaire-2 Score 1 08/02/2024 [facility] Occupat ionne Health - Occupational Stress Questionnaire Answer Date [...] a residential (including now)? No 12/08/2023 Comments No Sex and Gender Information Value Date Recorded Sex Assigned at Not on file Legal Sex Female 12:29 PM EDT Gender Identity Not on file Sexual Orientation Not on file documented as of this encounter Plan of Treatment Upcoming Encounters Date Type Department Care Team (Late st Contact Info) Description 03/07/2025 4:15 PM EDT Office Visit N[facility]IDA [facility] [address] [facility] [address] [place] [address] Aj Lockwood MD [address] [facility] [address] [place] [address] 03/23/2025 9:05 AM EDT Office Visit [facility] [address] [facility] [address] [place] [address] Magui Juan, VICE PRESIDENT EDUCATION-DEHYDRATOR [address] [facility] [address] [place] [address] 04/11/2025 10:15 AM EDT Office Visit [facility] [address] [place] [address] Aj Lockwood MD [address] [facility] [address] [place] [address] documented as of this encounter Visit Diagnoses Not on filedocumented in this encounter Additional Health Concerns Assessment Noted Time PHQ-9 Depression Total Score: 10 025 11:00 AM EST A fall risk assessment has been complete d for the patient 12/08/2023 9:26 AM EDT documented as of this encounter Care Teams Rail Assembler Relationship Specialty Start Date End Date Charanjit Chen MD [address] [place] [address] PCP - General Family Medicine 02/11/24 Wendy Burden NP [address] [place] [address] PCP - Lacy MARIE 01/10/25 Henok [place]rix MA [address] [place] [address] Family Medicine 05/24/24 documented as of this encounter
--- OUTSIDE RECORDS SUMMARY | 2025-02-28 13:32 | XMS_ITS | Encounter Summary ---
Author Organization [facility] Address [address] [place] [address] Care Team Providers Care Toy Parts Former Supervisor Name Role Phone Charanjit Chen MD Primary Care Provider Henok [place]rix MA Unavailable [phone] Wendy Burden NP Unavailable Encounter Details Date Type Department Care Team (Late st Contact Info) Description 02/15/2025 Patient Outreach [facility] [address] [place] [address] Henok [place]rix MA [address] [place] [address] Social History Tobacco Use Types Packs/Day Years [...] often do you attend chur ch or congregation services? Never 12/08/2023 Do you [...] 1 08/02/2024 [facility] Occupat ional Health - [...] Progress Notes * Henok [place]rix MA - 02/15/2025 3:41 PM EDT Images from the original note were not included. Flowsheet Row Patient Outreach from 02/15/2025 in [facility] with Henok [place]rix MA Hospital Information ED, Hospital or Halfway Facility Discharge? Hospital Patient has been contacted within two business days of discharge Yes Diagnosis presyncopal episodes Discharge Date 02/14/25 Discharged To: Home Setting Discharge [facility] Engagement Admission Date 02/11/25 Medications Discharge medications reviewed and reconciled from hospital? Yes Is the patient having any side effects they believe may be caused by any medication additions or changes? No Does the patient have all medications ordered at discharge? Yes Nursing Interventions No intervention needed Prescription Comments Oxycodone-Acetaminophen 5-325 Is the patient taking all medications as directed (includes completed medication regime)? Yes Medication Comments Pt asking for refill from PCP Appointments Does the patient have a primary care provider? Yes [Gunner FARFAN / Tejinder [place]] Nursing Interventions Verified appointment date/time/provider [February 22, 2025 at 1130 with PCP] Does the patient have any upcoming specialty appointments? Yes [March 07, [address] Lockwood] Nursing Interventions Advised patient to keep appointment Self Management Does patient have home health? no What Durable Medical Equipment (DME) was ordered? oxygen Has all Durable Medical Equipment (DME) been delivered? Yes Patient Teaching Does the patient have access to their discharge instructions? Yes Nursing Interventions Reviewed instructions with patient What is the patient's perception of their health status since discharge? Returned to baseline/stable Is the patient/caregiver able to teach back the hierarchy of who to call/visit for symptoms/problems? PCP, Specialist, Home Health nurse, Urgent Care, ED, 911 Yes If the patient is a current smoker, are they able to teach back resources for cessation? [id number] Wrap Up Is the patient/caregiver familiar with Advance Care Planning? Yes Would the patient like more information on Advance Care Planning? No Wrap Up Additional Comments EEG, MRI Brain , CT Abd/Pel, Labs, Blood CXs Pt presented to ER after having a syncopal episode at [facility]. Her son was with her at the timeof the incident. Neuro consult recommended EEG which was negative MRI brain was also recommended and performed with negative results. CT Abd/Pel also performed with no acute findings. Residential Care Facility Manager did callMed georgina, Darshana, and she is faxing over all test results as these aren't in the chart. DischargeSsd is scanned into chart for review. Pt was ultimately discharged home to follow up with SANDRA and PCP. Pt no longer is seeing SANDRA. After speaking with pt, I did call Dr Lockwood's office and I scheduled her a follow up appt on 03/07 at 1615. Discharge Summary did note additional instructions asking pt to wear home oxygen at 2L with any activity or exertion. Residential Care Facility Manager spoke with pt who states she is doing okay. She did get oxygen at discharge through DME. It has been delivered. Pt said it is making her nostrils raw. Residential Care Facility Manager recommended she try using a water-soluble lubricant like ky jelly or nasal gel spray around her nostrils to help prevent that. She said she would try it. Pt was given 3 days of pain medication. She is asking for a refill. 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 I did request the records of testing performed and I have scanned them into the chart for PCP review. Discharge summary is already in the chart for review. Pt does have a follow up scheduled with PCP on 02/22 at 1130. Hospital [facility] completed and pt enrolled into 30 day monitor program. Pt is aware of appt that writerscheduled with Dr Lockwood and her significant other, Josh, wrote it down for her. documented in this encounter Plan of Treatment Upcoming Encounters Date Type Department Care Team (Late st Contact Info) Description 03/07/2025 4:15 PM EDT Office Visit [facility] Neurology [address] [facility] [address] [place] [address] Aj Lockwood MD [address] [address] 03/23/2025 9:05 AM EDT Office Visit [facility] [address] [place] [address] Magui Juan, AUDIOLOGY DOCTOR-SOFTWARE PROGRAMMER [address] [place] [address] 04/11/2025 10:15 AM EDT Office Visit NEREIDA S[facility] Neurology [address] [place] [address] Aj Lockwood MD [address] [place] [address] documented as of this encounter Visit Diagnoses Diagnosis 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 Primary hypertension Unspecified essential hypertension documented in this encounter Additional Health Concerns Assessment Noted Time PHQ-9 Depression Total Score: 10 025 11:00 AM EST A fall risk assessment has been complete d for the patient 12/08/2023 9:26 AM EDT documented as of this encounter Care Teams Toy Parts Former Supervisor Relationship Specialty Start Date End Date Charanjit Chen MD [address] [place] [address] PCP - General Family Medicine 02/11/24 Wendy Burden NP [address] [place] [address] PCP - Lacy MARIE 01/10/25 Henok [place]rix MA [address] [place] [address] Family Medicine 05/24/24 documented as of this encounter
--- OUTSIDE RECORDS SUMMARY | 2025-02-28 13:32 | XMS_ITS | Encounter Summary ---
Author Organization [facility] Address [address] [place] [address] Care Team Providers Care Facilities Maintenance Worker Name Role Phone Charanjit Chen MD Primary Care Provider [phone] Henok [place]rix MA Unavailable [phone] Wendy Burden NP Unavailable [phone] Encounter Details Date Type Department Care Team (Late st Contact Info) Description 01/16/2025 External Result Encounter [facility] External Department Unsolicited Tammie Shah, HEAD START ASSISTANT TEACHER [address] [place] [address] Social History Tobacco Use Types Packs/Day Years [...] Recorded Patient Health Questionnaire-2 Score 1 08/02/2024 [facility] Occupat ional Health - Occupational [...] [facility] [address] [facility] [address] [place] [address] Aj Lockwood MD [address] [facility] [address] [place] [address] 03/23/2025 9:05 AM EDT Office Visit [facility] [address] [place] [address] Magui Juan APRN-ACCOUNTING MACHINE SERVICER [address] [place] [address] 04/11/2025 10:15 AM EDT Office Visit [facility] [address] [place] [address] Aj Lockwood MD [address] [facility] [address] [place] [address] documented as of this encounter Procedures Procedure Name Priority Date/Time Associated Diagnosis Comments CT CHEST WO IV CONTRAST 01/16/2025 2:39 PM EDT documented in this encounter Results * CT chest wo IV contrast (01/16/2025 2:39 PM EDT) Anatomical Region Laterality Modality Body, Chest Computed Tomogra phy 01/16/2025 2:39 PM EDT Impressions 01/16/2025 2:47 PM EDT Interval reduction in size of the left upper lobe mass. No developing hilar or mediastinal adenopathy. No distal metastatic disease. Impression dictated by: Adam Berger M.D. 01/16/2025 2:45 PM Dictation Location: [place] [address] Transcribed By: [facility] 01/16/25 1445 Dictated By: Adam Berger DO 01/16/25 1439 Signed By: <Electronically signed by Adam Berger DO in OV> 01/16/25 1445 Narrative 01/16/2025 2:47 PM EDT [facility] Main [place] [address] [place] [address] Scan Report Signed Patient: Mirta Rubi MR#: [id number] : 1950 Acct:[id number] Age/Sex: 74 / F ADM Date: 01/16/25 Loc: Room: [facility] Dr: Judit Martini MD Copies to: MD Tammie Potter APRN Norleena Poynter, MD Ordering Provider: Tammie Shah APRN Date [...] chest wo con Procedure Note Radiology, Radiologist, MD - 01/16/2025 [facility] Main [place] [address] [place] [address] CT Scan Report Signed Patient: Mirta Rubi MMR#: [id number] : 1950cct:[id number] Age/Sex: 74 / FADM Date: 01/16/25 Loc: XT Room:Type: [facility] Attending Dr: Judit Martini MD Copies to: MD Tammie Potter APRN Norleena Poynter, MD Ordering Provider: Tammie Shah APRN Date [...] Berger M.D. 01/16/2025 2:45 PM Dictation [facility] Transcribed By: [facility] 01/16/25 1445 Dictated By: Adam Berger DO 01/16/25 1439 Signed By: <Electronically signed by Adam Berger DO in OV> 01/16/25 1445 Tammie Shah HEAD START ASSISTANT TEACHER IMG CT PROCEDURES Final Resul t documented in this encounter Visit Diagnoses Not on filedocumented in this encounter Additional Health Concerns Assessment Noted Time PHQ-9 Depression Total Score: 10 08/02/ 025 11:00 AM EST A fall risk assessment has been complete d for the patient 12/08/2023 9:26 AM EDT documented as of this encounter Care Teams Facilities Maintenance Worker Relationship Specialty Start Date End Date Charanjit Chen MD [address] [place] [address] PCP - General Family Medicine 02/11/24 Wendy Burden NP [address] [place] [address] PCP - Lacy MARIE 01/10/25 Henok Hendrix MA [address] [place] [address] Family Medicine 05/24/24 documented as of this encounter
--- OUTSIDE RECORDS SUMMARY | 2025-02-28 13:32 | XMS_ITS | Clinical Summary ---
Author Organization [facility] Address [address] [place] [address] Care Team Providers Care Concrete Bucket Hooker Name Role Phone Eryn Lundberg MD Unavailable [phone] Eryn Lundberg MD Primary Care Provider [phone] Allergies No known active allergies Medications albuterol [...] Team Description 12/15/2024 Telephone [facility] [address] [place] [address] Annetta Medrano RN from Last [...] Vaccines (1 of 2) 2002 COVID-19 Vaccine ( - 2023-2 5 season) 2024 Influenza Vaccine (#1) 2025 Depression Screening 04/28/2025 04/28/2024 Fall Risk [...] Most Recently Relevant to Health Maintenance Insurance [facility] MEDICARE ADVANTAGE Care Teams Concrete Bucket Hooker Relationship Specialty Start Date End Date Eryn Lundberg MD [address] [place] [address] [address] [place] [address] PCP - General Oncology 06/21/24 Eryn Lundberg MD [address] [place] [address] [address] [place] [address] Consulting Physician Oncology 05/27/24
--- OUTSIDE RECORDS SUMMARY | 2025-02-28 13:32 | XMS_ITS | Encounter Summary ---
Author Organization [facility] Address [id number] [address] [place] [address] Care Team Providers Care First Line Supervisor Name Role Phone Betty Singh [employer] SUPERVISOR Primary Care Pr ovider Encounter Details Date Type Department Care Team (Late st Contact Info) Description 06/14/2024 Orders Only [facility] [address] [place] [phone] Transcribe, Orders Support User Pain (Primary Dx) Social History Tobacco Use Types Packs/Day Years Used Date Smoking Tobacco: Never Assessed [facility] Utilities Answer Date Recorded In the [...] documented as of this encounter Care Teams First Line Supervisor Relationship Specialty Start Date End Date Betty Singh, [employer]IL[employer] SUPERVISOR [address] [place] [address] PCP - General Nurse Practitioner 06/13/24 documented as of this encounter
--- OUTSIDE RECORDS SUMMARY | 2025-02-28 15:41 | XMS_ITS | CCD ---
Author Organization [facility] Care Team Providers Care Tornado Chaser Name Role Phone FAWWAD, HURTADO H Admitting [...] Consulting Unavailable ANDRES GUZMAN Consulting Unavailable DR ARMANDO EASLEY Admitting Unavailable TRISTA Morgan, DR ROBERTS Attending Unavailable FAWWAD, HURTADO H Primary Care Unavailable DR ARMANDO EASLEY Consulting Unavailable FAWWAD, HURTADO H Admitting Unavailable FAWWAD, HURTADO H Attending Unavailable FAWWAD, HURTADO H Primary Care Unavailable FAWWAD, HURTADO Primary Care Physician Cherelle Bautista Unavailable Nigel Valladares Unavailable Aung FARFAN, Primary Care Provider [phone] Shaikh Horan MD Unavailable MD Aung [facility] Primary Care Provider [phone] MD Emmett Bhakta Emergency Provider VONDA Bautista Attending Provider DO Leigh Thompson Attending Provider MD Mikhail Moon Attending Provider MD Reynaldo Horanikh Primary Care Provider [phone] Charanjit Chen MD Primary Care Provider Samantha SUPERVISOR POWDERED SUGAR, Chris Unavailable [phone] Naeem PARAKEET RAISER, Anne Unavailable Unavailable Naeem PARAKEET RAISER, Anne Unavailable Unavailable Henok Hendrix MA Unavailable Unavailable Fertile PARAKEET RAISER, Ardana Unavailable Unavailable Fertile PARAKEET RAISER, Ardana Unavailable Unavailable Singh [employer], Chris Castillo Primary Care Pr ovider Aung FARFAN, Primary Care Provider [phone] Nitza Russell MD Attending Provider Red FARFAN, Mikhail Referring Provider Samantha SUPERVISOR POWDERED SUGAR, Chris Unavailable Red FARFAN, Mikhail Referring Provider [phone] Samantha MABRY-CChris Primary Care Provid er Judit Martini MD Attending Provider Sulema Cordero PA-C Attending Provider Red FARFAN, Mikhail Referring Provider Samantha MABRY-CChris Primary Care Provid er Judit Martini MD Attending Provider Red FARFAN, Mikhail Referring Provider [phone] Samantha SUPERVISOR POWDERED SUGAR-C, Chris Castillo Primary Care [facility] er Judit Martini MD Attending Provider OMBALLI, MOHAMED Referring Unavailable OMBALLI, MOHAMED Referring Unavailable OMBALLI, MOHAMED Referring Unavailable OMBALLI, MOHAMED Attending Unavailable OMBALLI, MOHAMED Referring Unavailable OMBALLI, MOHAMED Attending Unavailable NURIA, ERYN Referring Unavailable NAWRAS, ALI Attending Unavailable NAWRAS, ALI Admitting Unavailable Singh [employer], [facility] Primary Care Pr ovider Simeon MARIE, Henok Unavailable Hipolito Shah APRN Attending Provider NON STAFF Primary Care Provider Unavailabl e Wendy Burden Attending Provider [phone] Nigel Valladares MD Attending Provider [phone] Adam Keller MD Attending Provider [phone] WENDY BURDEN Primary Care Physician [phone] NON STAFF Primary Care Provider Unavailabl e Hipolito Shah APRN Attending Provider Yaneth Naranjo Attending Provider Unavailable Red FARFAN, Mikhail Referring Provider [phone] Samantha SUPERVISOR POWDERED SUGAR-C, Chris Castillo Primary Care [facility] er Judit Martini MD Attending Provider Isabella Brown MD Emergency Provider [phone] Matteo Zaragoza MD Admit Provider Matteo Zaragoza MD Attending Provider NON STAFF Primary Care Provider UnavailMatteo Hernandez MD Other Provider Kenn Ignacio DO Attending Provider Kenn Ignacio DO Other Provider Jenise MABRY, Wendy Unavailable CHRIS SINGH Attending UnavailROMEL Vidal Attending Unavailable ERYN LUNDBERG Referring Unavailable KIANNA ROMAN Attending Unavailable WENDY BURDEN Attending Unavailable WENDY BURDEN Attending Unavailable WENDY BURDEN Attending Unavailable CHRIS SINGH Attending UnavailJAVIER Arreola Attending Unavailable ASAAD, IMAD Referring Unavailable CHRIS SINGH Attending UnavailJAVIER Arreola Attending Unavailable NEYDA LOCKWOOD Attending Unavailable SULEMA JUAN Attending Unavailable WENDY BURDEN Attending Unavailable [facility] Primary Care Unavailable Asaad, Imad Admitting Unavailable Asaad, Imad Attending Unavailable Asaad, Imad Attending Unavailable [facility] Primary Care Unavailable Asaad, Imad Admitting Unavailable Asaad, Imad Referring Unavailable Lianet, Norleena R Admitting Unavailable Lianet, Norleena R Attending Unavailable Chris Singh Primary Care Unavaila ble Wendy Burden Admitting Unavailable Wendy Burden Attending Unavailable [facility] Primary Care Unavailable Samsa, Leigh P Admitting Unavailable Samsa, Leigh P Attending Unavailable Kenn Ignacio Consulting Unavailab le Wendy Burden Primary Care Unavailable Jamin Covarrubias Attending Unavailable BooneorMatteo E Admitting Unavailab le Samsa, Leigh P Admitting Unavailable Samsa, Leigh P Attending Unavailable [facility] Primary Care Unavailable Sulema Cordero Admitting Unavailable Sulema Cordero Attending Unavailable NON STAFF Primary Care Unavailable Adam Keller Admitting Unavailable Adam Keller Attending Unavailable JENISE WENDY J Referring Unavailable Arden De Leon Attending [facility] Referring Unavailable Arden De Leon Attending Unavailable Arden De Leon Attending Unavailable Arden De Leon Admitting Unavailable Arden De Leon Referring Unavailable Allergies Allergy Classification Reported Allergen(s) Allergy Type Date of Onset Reaction(s) Facility (1 source) ALLERGIES NOT ON FILE; Translations: [ALLERGIES NOT ON FILE] Propensity to adverse reactions (disorder) [facility] Repository (1 source) No Known Medication Allergies; Translations: [No Known Medication Allergies] Propensity to adverse reactions (disorder) [facility] Repository Medications Current Medications Medication Drug Class(es) Dates Sig (Normalized) Sig (Original) 30 ACTUAT fluticasone furoate 0.2 MG/ACTUAT / umeclidinium 0.0625 MG/ACTUAT / vilanterol 0.025 MG/ACTUAT Dry Powder Inhaler [Trelegy] (2 sources) Trelegy Ellipta 200-62.5-25 MCG/ACT Inhalation for 30 Days Active acetaminophen 300 mg / codeine phosphate 30 mg oral tablet (15 sources) Opioid Agonist Start: 12-03-2024 End: 01-26-2025 take 1 tablet by mouth every six hours as needed for pain acetaminophen-codei ne (Tylenol w/ Codeine #3) 300-30 MG tablet TAKE 1 TABLET BY MOUTH EVERY 6 HOURS NEEDED FOR PAIN FOR 5 DAYS 12/03/2024 01/26/2025 Discontinued (Therapy completed) acetaminophen 325 mg / oxyCODONE hydrochloride 5 mg oral tablet (8 sources) Opioid Agonist Start: 02-22-2025 End: 03-24-2025 take 1 tablet by mouth once daily as needed for pain oxyCODONE-acetamino phen (Percocet) 5-325 MG tablet Indications: Chronic abdominal pain Take 1 tablet by mouth Daily as needed for severe pain 30 tablet 02/22/2025 03/24/2025 Active Start: 02-14-2025 End: 02-22-2025 oxyCODONE-acetaminophen (Per cocet) 5-325 MG tablet 02/14/2025 02/22/2025 Discontinued (Reorder) Start: 02-14-2025 take 1 tablet by edelmira th every eight hours as needed for pain [id number] 200 actuat albuter ol 0.09 mg/actuat metered dose inhaler (20 sources) beta2-Adrenergic Agonist Start: 12-30-2023 Start: 12-30-2023 Albuterol Sulf ate Active INHALATION [...] 07/02/2023 Active apixaban 5 mg oral tablet (20 sources) Factor Xa Inhibitor Start: 10-27-2024 End: 01-25-2025 take 1 tablet by mouth in the morning apixaban (Eliquis) 5 MG tablet Indications: Cerebrovascular accident (CVA), unspecified mechanism ([facility]) Take 1 tablet (5 mg) by mouth in the morning and 1 tablet (5 mg) before bedtime. 180 tablet 10/27/2024 Active aspirin 81 mg delayed release oral tablet (18 sources) Platelet Aggregation Inhibitor, Nonsteroidal Anti-inflammatory Drug Start: 12-27-2023 take 1 tablet by mouth once daily Baby Aspirin Act thelma atorvastatin 80 mg oral tablet (20 sources) HMG-CoA Reductase Inhibitor Start: 06-09-2022 End: 01-25-2025 take 1 tablet by mouth once daily atorvastatin (Lipitor) 80 MG tablet Indications: Cerebrovascular accident (CVA), unspecified mechanism (HCC) Take 1 tablet (80 mg) by mouth Daily 90 tablet 10/27/2024 Active 120 actuat budesonide 0.16 mg/actuat / formoterol fumarate 0.0048 mg/actuat / glycopyrrolate 0.009 mg/actuat metered dose inhaler (20 sources) Corticosteroid, beta2-Adrenergi c Agonist Start: 03-11-2024 Start: 03-02-2024 End: 06-27-2024 take 2 puff(s) by inhalation in the morning Nikhznv-Adomstgztmy-Jpwyxcxgos (Breztri Aerosphere) 160-9-4.8 MCG/ACT aerosol Indications: Moderate COPD (chronic obstructive pulmonary disease) (HCC) Inhale 2 puffs in the morning and [...] esomeprazole 40 mg delayed release oral capsule (9 sources) Proton Pump Inhibitor Start: 12-24-2022 End: 03-24-2023 take 1 capsule by mouth once daily esomeprazole 40 mg Cap-EC 40 mg = 1 cap(s), Oral, Daily, # 90 cap(s), Refills(s) 0, [facility], [facility], cm, 12/24/22 10:00:00 EDT, Height/Length Dosing, 67.6, kg, 12/24/22 10:00:00 EDT, Weight Dosing Start Date: 02/18/23 Status: Ordered Quantity: 90.0 Unit: cap(s) Repeat number: 1 fenofibrate 48 mg oral tablet (18 sources) Peroxisome Proliferator Receptor alpha Agonist Start: 03-07-2024 End: 03-07-2025 take 1 tablet by mouth once daily fenofibrate (Tricor) 48 MG tablet Indications: Mixed hyperlipidemia (CMS/HCC) Take 1 tablet (48 mg) by mouth Daily 30 tablet 11 03/07/2024 08/02/2024 Discontinued Fluticasone-Umecli din-Vilant (Trelegy Ellipta) 200-62.5-25 MCG/ACT aerosol [...] capsule 08/02/2024 Active hyoscyamine sulfate 0.125 mg oral tablet (18 sources) Start: 01-30-2025 take 2 tablets by mouth four times daily as needed for muscle spasms Levsin 0.125 mg SL Tab 0.25 mg = 2 tab(s), Oral, QID, PRN for spasm, # 80 tab(s), Refills(s) 0, Pharmacy: [id number], 159, cm, 01/30/25 12:14:00 EDT, Height/Length Dosing, 63.6, kg, 01/30/25 12:14:00 EDT, Weight Dosing Start Date: 01/30/25 Status: Ordered Quantity: 80.0 Unit: tab(s) Repeat number: 1 Indications: Other constipation; Abdominal distension (gaseous); Abnormal levels of other serum enzymes; Gastro-esophageal reflux disease without esophagitis; Personal history of colon polyps, unspecified; Psychological and behavioral factors associated with disorders or diseases classified elsewhere; Epigastric pain; Gastro-esophageal reflux disease without esophagitis; Other specified symptoms and signs involving the digestive system and abdomen; Start: 12-21-2024 End: 01-26-2025 take 1 tablet by mouth every eight hours hyoscyamine (Levsin/SL) 0.125 MG SL tablet Indications: Chronic abdominal pain , Epigastric pain Take 1 tablet (0.125 mg) by mouth every 8 (eight) hours if needed for cramping for up to 7 days 21 tablet 01/03/2025 01/26/2025 Discontinued (Therapy completed) lacosamide 100 mg oral tablet (20 sources) Anti-epileptic Agent Start: 09-26-2024 End: 08-06-2025 take 1 tablet by mouth in the morning lacosamide (Vimpat) 100 MG tablet Indications: Seizure (HCC) , Alteration of awareness Take 1 tablet (100 mg) by mouth in the morning and 1 tablet (100 mg) before bedtime. 60 tablet 5 02/07/2025 08/06/2025 Active Start: 06-17-2024 End: 02-11-2025 take 1 tablet by mouth twice daily Lacosamide 150 mg tablet Discontinued 150 MG PO Twice daily July 28, 2024 1:00am February 11, 2025 5:32pm lamoTRIgine 150 mg oral tablet (20 sources) Mood Stabilizer, Anti-epileptic Agent Start: 09-26-2024 End: 08-06-2025 take 1 tablet by mouth once daily lamoTRIgine (LaMICtal) 150 MG tablet Indications: Alteration of awareness Take 1 tablet (150 mg) by mouth Daily 30 tablet 5 02/07/2025 08/06/2025 Active Start: 07-28-2024 End: 09-26-2024 take 1 [...] 28, 2024. 07/28/2024 Active Start: 06-17-2024 End: 02-11-2025 take 1 tablet by mouth once daily Lamotrigine 25 mg tablet Discontinued 25 MG PO Daily July 28, 2024 1:00am February 11, 2025 5:33pm linaclotide 0.145 mg oral capsule (20 sources) Guanylate Cyclase-C Agonist Start: 11-26-2023 End: 08-02-2024 take 1 capsule by mouth once daily losartan potassium 25 mg oral tablet (20 sources) Angiotensin 2 Receptor Tristian Start: 06-18-2024 End: 01-25-2025 take 1 tablet by mouth once daily losartan (Cozaar) 25 MG tablet Indications: Primary hypertension Take 1 tablet (25 mg) by mouth Daily 90 tablet 1 10/27/2024 Active nicotine 4 mg oral lozenge (2 [...] chew, or split. 60 tablet 1 12/21/2024 Active Start: 08-04-2023 take 1 tablet by edelmira th once daily pantoprazole (ProtoNix) 40 MG EC tablet Indications: Gastroesophageal reflux disease without esophagitis TAKE 1 TABLET BY MOUTH EVERY DAY 30 tablet 0 08/04/2023 Active take 1 tablet by edelmira th once daily Pantoprazole Sodium 40 MG TAKE 1 TABLET BY MOUTH DAILY Oral for 30 Days Active plecanatide 3 mg oral tablet (5 sources) Start: 01-30-2025 take 1 tablet by mouth once daily Trulance 3 mg oral tablet 3 mg = 1 tab(s), Oral, Daily, # 30 tab(s), Refills(s) 6, Pharmacy: [facility], 159, cm, 01/30/25 12:14:00 EDT, Height/Length Dosing, 63.6, kg, 01/30/25 12:14:00 EDT, Weight Dosing Start Date: 01/30/25 Status: Ordered Quantity: 30.0 Unit: tab(s) Repeat number: 7 Indications: Other constipation; Abdominal distension (gaseous); Abnormal levels of other serum enzymes; Gastro-esophageal reflux disease without esophagitis; Personal history of colon polyps, unspecified; Psychological and behavioral factors associated with disorders or diseases classified elsewhere; Epigastric pain; Gastro-esophageal reflux disease without esophagitis; Other specified symptoms and signs involving the digestive system and abdomen; sucralfate 100 mg/ml oral suspension (6 sources) Aluminum Complex Start: 02-11-2025 take 1 mL by mouth four times daily Start: 02-08-2025 End: 05-17-2025 Carafate 1 GM/10ML suspensio n Take 1 g by mouth 02/08/2025 05/17/2025 Active traZODone hydrochloride 100 mg oral tablet (20 sources) Serotonin Reuptake Inhibitor Start: 06-09-2022 End: 01-29-2025 take 1 tablet by mouth at bedtime traZODone (Desyrel) 100 MG tablet Indications: Psychophysiological insomnia Take 1 tablet (100 mg) by mouth at bedtime 90 tablet 1 10/28/2024 Active Completed/Discontinued Medications Medication Drug Class(es) Dates Sig (Normalized) Sig (Original) Albuterol (Eqv-ProAir HFA) 90 mcg/inh inhalation aerosol (8 sources) Start: 08-11-2022 take 2 puff(s) by mouth every four hours as needed Albuterol (Eqv-ProAir HFA) 90 mcg/inh inhalation aerosol Refill(s) 0, 8 gm, INHALE 2 PUFFS BY MOUTH EVERY 4 HOURS NEEDED for SHORTNESS OF BREATH Start Date: 08/11/22 Status: Ordered Repeat number: 1 Start: 08-11-2022 take 2 puff(s) by mo uth every four hours as needed Albuterol (Eqv-ProAir HFA) 90 mcg/inh inhalation aerosol Refill(s) 0, 8 gm, INHALE 2 PUFFS BY MOUTH EVERY 4 HOURS NEEDED for SHORTNESS OF BREATH Start Date: 08/11/22 Status: Ordered amLODIPine 10 mg oral tablet (18 sources) Dihydropyridine Calcium Channel Tristian Start: 12-27-2023 [...] procedure, # 2 tab(s), Refills(s) 0, Pharmacy: [id number], 159, cm, 08/11/22 13:12:00 EST, [...] Aung Hurtado take 1 tablet by edelmira th three [...] 27, 2023 12:00am July 28, 2024 3:22pm ferrous sulfate 325 mg oral tablet (12 sources) Start: 2024 End: 02-11-2025 take 1 tablet by mouth once daily Ferrous Sulfate 325 mg (65 mg iron) tablet Discontinued 325 MG PO Daily 2024 1:00am February 11, 2025 3:18pm Start: 01-06-2023 End: 05-19-2023 take 1 tablet by mouth once daily ferrous sulfate 325 mg oral enteric coated tablet 325 mg = 1 tab(s), Oral, Daily, X 90 day(s), # 90 tab(s), Refills(s) 0, Pharmacy: [facility], 159, cm, 12/24/22 10:00:00 EDT, Height/Length Dosing, 67.6, kg, 12/24/22 10:00:00 EDT, Weight Dosing Start Date: 02/18/23 Stop Date: 05/19/23 Status: Ordered Nyhcwcidihj-Wubtqqoar-Rcxypy er (16 sources) Anticholinergic, Corticosteroid, beta2-Adrenergic Agonist Start: 12-30-2023 End: 03-11-2024 Cewqfzsukur-Succbuipi-Hpzhqk er (Trelegy Ellipta) 100-62.5-25 mcg blister with device Discontinued INHALATION December 29, 2023 11:00pm March 11, 2024 7:20am Start: 12-30-2023 End: 03-11-2024 Ttjwqzzmxho-Rzxsxgdfm-Sspmbx er (Trelegy Ellipta) 100-62.5-25 mcg blister with device Discontinued INHALATION December 30, 2023 12:00am March 11, 2024 8:20am Start: 12-30-2023 Fluticasone-Um eclidin-Vilanter (Trelegy Ellipta) 100-62.5-25 mcg blister with device Active INHALATION December 30, 2023 12:00am Fluticasone Furoate-Vilanterol (8 sources) Corticosteroid, beta2-Adrenergic Agonist Start: 2024 End: 02-11-2025 Fluticasone Furoate-Vilanterol 200-25 mcg/dose blister with device Discontinued 1 INH INHALATION Daily 2024 1:00am February 11, 2025 3:24pm Start: 2024 Start: 2024 Fluticasone Fu roate-Vilanterol 200-25 mcg/dose blister with device Active 1 INH INHALATION Daily 2024 1:00am Start: 2024 Fluticasone Fu roate-Vilanterol 200-25 mcg/dose blister with device Active 1 INH INHALATION Daily 2024 12:00am Efaifjtqquq-Knxzdzjyr-Nuhrxe er (17 sources) Start: 12-27-2023 End: 03-11-2024 Ythtlvfwvep-Ucjjflozx-Xholbc er (Trelegy Ellipta) 200-62.5-25 mcg blister with device Discontinued 1 INH INHALATION Daily December 26, 2023 11:00pm March 11, 2024 7:20am FreeTextSig: Inhalation; Note: Source Status: Taking; Qty: 60 Each; Provider: Jacquelyn Manning ( ) Start: 12-27-2023 End: 03-11-2024 Yemtbyczjca-Sedwrhvyj-Lzdnnk er (Trelegy Ellipta) 200-62.5-25 mcg blister with [...] day(s), # 30 tab(s), Refills(s) 0, Pharmacy: [facility], 159, cm, 12/24/22 10:00:00 EDT, Height/Length Dosing, 67.6, kg, 12/24/22 10:00:00 EDT, Weight Dosing Start Date: 01/06/23 Stop Date: 02/05/23 Status: Ordered LORazepam 0.5 mg oral tablet (20 sources) Benzodiazepine Start: 10-28-2024 End: 02-22-2025 take 1 tablet by mouth every twenty-four hours as needed for anxiety and anxiety and anxiety LORazepam (Ativan) 0.5 MG tablet Indications: Anxiety Take 1 tablet (0.5 mg) by mouth Daily as needed for anxiety for up to 15 days 15 tablet 11/15/2024 02/22/2025 Discontinued (Therapy completed) polyethylene glycol 3350 34529 mg powder for oral solution (16 sources) Osmotic Laxative Start: 2024 End: 02-11-2025 Polyethylene Glycol 3350 (Miralax) 17 gram/dose powder Discontinued 17 GM PO Daily 2024 1:00am February 11, 2025 3:24pm Start: 12-24-2022 MiraLax Refill (s) 0 Start Date: 12/24/22 Status: Ordered Repeat number: 1 Start: 12-24-2022 MiraLax Refill (s) 0 Start Date: 12/24/22 Status: Ordered polyethylene glycol 3350 [id number] mg / potassium chloride 1480 mg / sodium bicarbonate 5720 mg / sodium chloride 74781 mg powder for oral solution (7 sources) Osmotic Laxative Start: 12-24-2022 NuLYTELY Fuentes oral powder for reconstitution See Instructions, 1 EA, Refill(s) 0, Prior to colonoscopy., [facility], 159, cm, 12/24/22 10:00:00 EDT, Height/Length [...] 28, 2024 3:23pm Sod Picosulf-Mag Ox-Citric Ac (14 sources) Start: 03-01-2024 End: 03-11-2024 take 1 [...] at 9pm the night before colonoscopy varenicline 1 mg oral tablet (12 sources) Partial Cholinergic Nicotinic Agonist Start: 12-30-2023 End: 03-11-2024 Varenicline Tartrate 0.5 mg (11)- 1 mg (42) tablets,dose pack Discontinued TAB PO December 30, 2023 12:00am March 11, 2024 8:23am Start: 12-30-2023 End: 03-11-2024 Varenicline Discontinued TAB [...] pain] Onset: 3 Episodic Acute cerebrovascular disease (20 sources) Cerebrovascular accident; Translations: [Cerebral infarction, unspecified] Onset: 4 10-27-2024 Chronic Anxiety disorders (20 sources) Anxiety; Translations: [Anxiety disorder, unspecified] Onset: [...] situ of colon] Onset: 4 05-10-2024 Chronic Cardiac and circulatory congenital anomalies (4 sources) Patent foramen ovale; Translations: [Patent foramen ovale (HHS-HCC)] 02-07-2025 Chronic Chronic obstructive pulmonary disease and bronchiectasis (20 sources) Centrilobular emphysema; Translations: [Moderate chronic obstructive pulmonary disease] Onset: 3 08-20-2023 Chronic Disorders of lipid metabolism (20 sources) Hyperlipidemia; Translations: [Hyperlipidemia, unspecified] Onset: 2 06-09-2022 Chronic Epilepsy; convulsions (3 sources) Seizure disorder; Translations: [Epilepsy, unspecified, intractable, without status epilepticus] Onset: 5 02-12-2025 Chronic Epilepsy; convulsions (20 sources) Seizure related finding; Translations: [Unspecified convulsions] [...] urinary system] Onset: 2 Resolved: 5 Episodic Late effects of cerebrovascular disease (9 sources) Sequelae of cerebral infarction; Translations: [Unspecified sequelae of cerebral infarction] Onset: 5 02-07-2025 Chronic Menopausal disorders (1 source) Postmenopausal atrophic vaginitis; Translations: [POSTMENOPAUSAL ATROPHIC VAGINITIS] Onset: 3 Chronic Miscellaneous mental health disorders (7 sources) Psychophysiologic insomnia; Translations: [Psychophysiologic insomnia] Onset: 5 08-02-2024 Chronic Nonspecific chest pain (3 sources) Chest pain, unspecified; Translations: [CHEST PAIN UNSPECIFIED] Onset: 3 Episodic Occlusion or stenosis of precerebral arteries (20 sources) Left carotid artery stenosis; Translations: [Occlusion and stenosis of left carotid artery] Onset: 5 Chronic Other aftercare (1 source) Other superintendent terminal (current) drug therapy; Translations: [OTH DISTRIBUTION OPERATIONS MANAGER CURRENT DRUG THERAPY] Onset: 3 Episodic Other aftercare (1 source) terminal superintendent (current) use of aspirin; Translations: [DISTRIBUTION OPERATIONS MANAGER CURRENT USE OF ASPIRIN] Onset: 3 Episodic Other and ill-defined heart disease (20 sources) Heart disease; Translations: [Heart disease, unspecified] Onset: 4 06-09-2022 Chronic Other and unspecified benign neoplasm (8 sources) Adenomatous polyp of colon ; Translations: [Benign neoplasm of colon, unspecified] 05-12-2024 Episodic Other circulatory disease (1 source) Personal history of transient ischemic attack (TIA), and cerebral infarction without residual deficits; Translations: [PERS HX TIA AND CI NO RESID DEFICIT] Onset: 3 Episodic Other circulatory disease (17 sources) Low blood pressure; Translations: [Hypotension, unspecified] 12-27-2023 Episodic Other circulatory disease (8 sources) History of hypotension; Translations: [Personal history of other diseases of the circulatory system] 05-12-2024 Episodic Other circulatory disease (1 source) Personal history of other diseases of the circulatory system; Translations: [Personal history of other diseases of circulatory system] 05-11-2024 Episodic Other gastrointestinal disorders (1 source) Swollen abdomen; Translations: [Abdominal distension (gaseous)] Onset: 5 Episodic Other gastrointestinal disorders (1 source) Other constipation; Translations: [Other constipation] Onset: 5 Episodic Other gastrointestinal disorders (1 source) Digestive system finding; Translations: [Other specified symptoms and signs involving the digestive system and abdomen] Onset: 5 Episodic Other gastrointestinal disorders (1 source) Abdominal bloating 01-30-2025 Episodic Other gastrointestinal disorders (3 sources) Chronic constipation; Translations: [Other constipation] Onset: 5 01-30-2025 Episodic Other gastrointestinal disorders (1 source) Defecation straining 01-30-2025 Episodic Other hereditary and degenerative nervous system conditions (20 sources) Restless legs; Translations: [Restless legs syndrome] Onset: 3 08-20-2023 Chronic Other liver diseases (1 source) Enzyme level - finding; Translations: [Abnormal levels of other serum enzymes] Onset: 5 Episodic Other lower respiratory disease (5 sources) Other nonspecific abnormal finding of lung field; Translations: [Swelling, mass, or lump in chest] Onset: 3 Episodic Other lower respiratory disease (20 sources) Lung mass; Translations: [Other nonspecific abnormal finding of lung field] Onset: 4 Resolved: 5 12-27-2023 Episodic Other lower respiratory disease (4 sources) Hypoxia; Translations: [Hypoxemia] 02-11-2025 Episodic Other lower respiratory disease (1 source) Hypoxemia; Translations: [Hypoxemia] Onset: 5 Episodic Other nervous system disorders (20 sources) Polyneuropathy; Translations: [Polyneuropathy, unspecified] Onset: 3 07-09-2023 Chronic Other nervous system disorders (9 sources) Abnormal gait; Translations: [Unspecified abnormalities of gait and mobility] Onset: 5 02-07-2025 Episodic Other skin disorders (5 sources) Eruption; Translations: [Rash and other nonspecific skin eruption] Onset: 5 02-09-2025 Episodic Other skin disorders (2 sources) Inflamed seborrheic keratosis; Translations: [Inflamed seborrheic keratosis] 02-21-2025 Episodic Prolapse of female genital organs (2 [...] UTERUS] Onset: 3 Episodic Residual codes; unclassified (10 sources) Lack of awareness; Translations: [Unspecified symptoms and signs involving cognitive functions and awareness] 08-02-2024 Episodic Residual codes; unclassified (4 sources) Altered mental status; Translations: [Altered mental status, unspecified] 02-11-2025 Episodic Substance-related disorders (20 sources) Nicotine dependence, cigarettes, uncomplicated; Translations: [Smoker] Onset: 3 Resolved: Chronic Syncope (20 sources) Syncope and collapse; Translations: [Syncope and collapse] Onset: 4 01-04-2024 Episodic Transient cerebral ischemia (4 sources) Transient cerebral ischemia; Translations: [Other transient cerebral ischemic attacks and related syndromes] 02-07-2025 Chronic Unclassified (2 sources) Post hospital appointment. Please call to reschedule if needed. Unclassified (1 source) Office is currently unavailable. Please call to schedule a post hospital appointment. Unclassified (1 source) Abdominal aortic aneurysm, without rupture, unspecified; Translations: [Abdominal aortic aneurysm, without rupture, unspecified] Onset: Past or Other Problems Problem Classification Problem Date Documented Da te Episodic/Chronic Diabetes mellitus without complication (20 sources) Prediabetes; Translations: [Prediabetes] Onset: 10-06-2024 10-06-2024 Episodic Diseases of mouth; excluding dental (20 sources) Mass of right parotid gland; Translations: [Other diseases of salivary glands] Onset: 10-27-2024 10-27-2024 Episodic Mood disorders (20 sources) Mood disorders Onset: 07-09-2023 Resolved: 08-02-2024 07-09-2023 Other aftercare (20 sources) Long-term current use of inhaled steroid; 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] Onset: 10-27-2024 10-27-2024 Episodic Other and unspecified benign neoplasm (20 sources) History of polyp of colon; Translations: [Personal history of colonic polyps] Onset: 12-24-2022 Episodic Other and unspecified benign neoplasm (2 sources) Benign neoplasm of colon, unspecified; Translations: [Benign neoplasm of colon] Onset: 04-21-2024 05-11-2024 Episodic Other and unspecified benign neoplasm (2 sources) Polyp of colon; Translations: [Polyp of colon] Onset: 06-21-2024 Episodic Other circulatory disease (8 sources) History of transient ischemic attack Onset: 05-11-2022 08-11-2022 Episodic Other circulatory disease (20 sources) History of cerebrovascular accident; Translations: [Personal history of transient ischemic attack (TIA), and cerebral infarction without residual deficits] Onset: 07-09-2023 Resolved: 10-27-2024 07-09-2023 Episodic Other gastrointestinal disorders (2 sources) Other specified diseases of intestine; Translations: [Other specified diseases of intestine] Onset: 06-21-2024 Episodic Other lower respiratory disease (2 sources) Solitary pulmonary nodule; Translations: [Solitary pulmonary nodule] Onset: 04-28-2024 Episodic Other screening for suspected conditions (not mental disorders or infectious disease) (20 sources) Encounter for screening for malignant neoplasm of respiratory organs; Translations: [Encounter for screening mammogram for malignant neoplasm of breast] Onset: 07-09-2022 Episodic Residual codes; unclassified (20 sources) Family history of gene mutation; Translations: [Family history of diseases of the blood and blood-forming organs and certain disorders involving the immune mechanism] Onset: 10-06-2024 10-06-2024 Episodic Residual codes; unclassified (20 sources) Tobacco user; Translations: [Tobacco use] Onset: 10-27-2024 Resolved: 10-27-2024 10-27-2024 Episodic Unclassified (1 source) Abdominal aortic aneurysm (AAA) without rupture, unspecified part I71.40 Unclassified (20 sources) Onset: 12-08-2023 12-08-2023 Results Test Name Value Interpretation Reference Range Facility Reminderson 02-23-2025 Reminders Reminders From: Ruth Thrasher [facility] - Reminders/Recalls; Sent: 02/23/2025 08:43:40 EDT Show up: 12/11/2025 08:43:00 EDT Subject: Ambulatory Reminder Due Date/Time: 01/10/2026 08:43:00 EDT Reminder/Recall [address] De Leon 02/08/25 [facility] Reminders Reminders From: Cyn Tomlinson MA To: [facility] - Reminders/Recalls; Sent: 02/16/2025 12:51:55 EDT Show up: 02/16/2025 12:52:00 EDT Subject: EGD recall Reminder/Recall [address] De Leon 02/08/25 patient had it done 02/08/2025 error, due in a year. not now. new recall placed. Normal [facility] No Panel Informationon 02-21 [facility] CT abdomen pelvis wo conon 0 02-14-2025 CT abdomen pelvis wo con [facility] [address] [place] [address] CT Scan Report Signed Patient: Bhupendra Rubi MR#: [id number] 306 : 1950 Acct:[id number] Age/Sex: 74 / F ADM Date: 02/11/25 Loc: Room: [address] [place] [address] Type: ADM IN Attending Dr: Jamin Covarrubias MD Copies to: Jamin Covarrubias MD Ordering Provider: Jamin Covarrubias MD Date of Service: 02/14/25 CT/CT abdomen pelvis wo con: Abdominal pain CT ABDOMEN AND PELVIS WITHOUT INTRAVENOUS CONTRAST: CLINICAL HISTORY: Lower abdominal pain. Bloating. COMPARISON: CTA abdomen and pelvis 02/11/2025 TECHNIQUE: Spiral images were obtained through the abdomen and pelvis without intravenous contrast. This CT exam was performed using one or more following dose reduction techniques: Automated exposure control, adjustment of the mA and/or kV according to patient size, or use of iterative reconstruction technique. FINDINGS: Lung Bases: [Trace pericardial fluid. Bibasilar scarring.] Organs:Suboptimal evaluation due to lack of IV contrast. Gallbladder has been removed. Liver spleen pancreas and adrenal glands appear unremarkable. Previously given IV contrast is seen within the collecting systems. Fusiform type infrarenal abdominal aortic aneurysm measuring 4.1 cm best evaluated on the prior CTA study.[ GI: Stomach is grossly unremarkable. Small bowel appears nondilated. Appendix is normal. No acute colonic abnormality.[Colonic diverticulosis. Pelvis:[Urinary bladder is grossly unremarkable. Uterus has been removed.] Peritoneum/Retroperitoneum :No free air or free fluid or lymphadenopathy.[ Abd wall/Bones:Abdominal wall demonstrates no acute findings. Osseous structures demonstrate degenerative change.[ CT/CT abdomen pelvis wo con IMPRESSION: No acute findings. Impression dictated by: Napoleon Jalloh Jr., D.O. 02/14/2025 2:03 PM Dictation Location: [place] [address] Transcribed By: [facility] 02/14/25 1403 Dictated By: Napoleon Jalloh Jr, DO 02/14/25 1359 Signed By: 02/14/25 1403 Normal [facility] Complete Blood Count Auto Di ffon 02-14-2025 Basophils (Bld) [#/Vol] 0.0 10*3/uL Normal 0.0-0.2 [facility] Comment on above: Result Comment: PERF ORMED BY: [place] [address] PATHOLOGIST MANAGING PRINCIPAL OBDULIO SEAMAN M.D. Performed By: #### C BC, CMP #### [address] Basophils/100 WBC (Bld) 0.3 % Normal . [facility] Comment on above: Performed By: #### C BC, CMP #### [address] Eosinophils (Bld) [#/Vol] 0.1 10*3/uL Normal 0.0-0.45 [facility] Comment on above: Performed By: #### C BC, CMP #### [address] Eosinophils/100 WBC (Bld) 1.6 % Normal . [facility] Comment on above: Performed By: #### C BC, CMP #### [address] Erythrocyte distribution width (RBC) [Ratio] 17.0 % High 11.9-15.3 [facility] Comment on above: Performed By: #### C BC, CMP #### [address] Hematocrit (Bld) [Volume fraction] 40.2 % Normal 34.0-46.4 [facility] Comment on above: Performed By: #### C BC, CMP #### [address] Hemoglobin (Bld) [Mass/Vol] 12.9 g/dL Normal 11.8-15.4 [facility] Comment on above: Performed By: #### C BC, CMP #### [address] Lymphocytes (Bld) [#/Vol] 1.7 10*3/uL Normal 1.00-4.8 [facility] Comment on above: Performed By: #### C BC, CMP #### [address] Lymphocytes/100 WBC (Bld) 21.7 % Normal . [facility] Comment on above: Performed By: #### C BC, CMP #### [address] MCH (RBC) [Entitic mass] 27.0 pg Normal 24.7-34.3 [facility] Comment on above: Performed By: #### C BC, CMP #### [address] MCV (RBC) [Entitic vol] 84.4 fL Normal 80-100 [facility] Comment on above: Performed By: #### C BC, CMP #### [address] Mean Corpuscular HGB Conc 32.0 g/dL Normal 32.0-35.0 [facility] Comment on above: Performed By: #### C BC, CMP #### [address] Monocytes (Bld) [#/Vol] 0.9 10*3/uL High 0.0-0.8 [facility] Comment on above: Performed By: #### C BC, CMP #### [address] Monocytes/100 WBC (Bld) 11.4 % Normal . [facility] Comment on above: Performed By: #### C BC, CMP #### [address] Neutrophils (Bld) [#/Vol] 5.2 10*3/uL Normal 1.8-7.7 [facility] Comment on above: Performed By: #### C BC, CMP #### [facility] [address] Neutrophils/100 WBC (Bld) 65.0 % Normal . [facility] Comment on above: Performed By: #### C BC, CMP #### [facility] [address] NRBC% 0.0 /100{WBC} Normal 0-0.5 [facility] Comment on above: Performed By: #### C BC, CMP #### [facility] [address] Platelet mean volume (Bld) [Entitic vol] 7.9 fL Normal 6.3-10.7 [facility] Comment on above: Performed By: #### C BC, CMP #### [address] Platelets (Bld) [#/Vol] 291 10*3/uL Normal 150-450 [facility] Comment on above: Performed By: #### C BC, CMP #### [address] RBC (Bld) [#/Vol] 4.77 10*6/uL Normal 3.60-5.00 [facility] Comment on above: Performed By: #### C BC, CMP #### [place] [address] [place] WBC (Bld) [#/Vol] 8.0 10*3/uL Normal 3.8-11.6 [facility] Comment on above: Performed By: #### C BC, CMP #### [address] White Blood Count 8.0 [CFU]/mL Normal 3.8-11.6 [facility] Comment on above: Performed By: #### C BC, CMP #### [address] Comprehensive Metabolic Pane perez 02-14-2025 Albumin [Mass/Vol] 3.5 g/dL Normal 3.5-5.7 [facility] Comment on above: Performed By: #### C BC, CMP #### [address] Albumin/Globulin [Mass ratio] 1.6 {ratio} Normal [facility] Comment on above: Performed By: #### C BC, CMP #### [facility] [address] ALP [Catalytic activity/Vol] 70 U/L Normal 34-104 [facility] Comment on above: Performed By: #### C BC, CMP #### [facility] [address] ALT [Catalytic activity/Vol] 6 U/L Low 7-52 [facility] Comment on above: Performed By: #### C BC, CMP #### [address] Anion gap [Moles/Vol] 10.1 mmol/L Normal 6.0-15.0 [facility] Comment on above: Performed By: #### C BC, CMP #### [address] AST [Catalytic activity/Vol] 11 U/L Low 13-39 [facility] Comment on above: Performed By: #### C BC, CMP #### [address] Bilirubin [Mass/Vol] 0.4 mg/dL Normal 0.3-1.0 [facility] Comment on above: Performed By: #### C BC, CMP #### [place] [address] [place] Calcium [Mass/Vol] 8.7 mg/dL Normal 8.6-10.3 [facility] Comment on above: Performed By: #### C BC, CMP #### [address] Chloride [Moles/Vol] 104 mmol/L Normal 98-107 [facility] Comment on above: Performed By: #### C BC, CMP #### [address] CO2 [Moles/Vol] 29.6 mmol/L Normal 21.0-31.0 [facility] Comment on above: Performed By: #### C BC, CMP #### [address] Creatinine [Mass/Vol] 0.88 mg/dL Normal 0.60-1.20 [facility] Comment on above: Performed By: #### C BC, CMP #### [address] Creatinine Clr Calc Pharmacy 50.59 Normal [facility] Comment on above: Result Comment: PERF ORMED BY: [place] [address] PATHOLOGIST MANAGING PRINCIPAL OBDULIO SEAMAN M.D. Performed By: #### C BC, CMP #### [address] GFR/1.73 sq M.predicted MDRD (S/P/Bld) [Vol rate/Area] mL/min/{1.73_m2} Normal [facility] Comment on above: Performed By: #### C BC, CMP #### [address] Globulin (S) [Mass/Vol] 2.2 g/dL Normal [facility] Comment on above: Performed By: #### C BC, CMP #### [address] Glucose [Mass/Vol] 83 mg/dL Normal 70-100 [facility] Comment on above: Result Comment: [place] Glucose Reference Range is dependent on time and content of last meal. Glucose of more than 200 mg/dL in a nonstressed, ambulatory subject supports the diagnosis of Diabetes Mellitus. ADA recommended reference range Performed By: #### C BC, CMP #### [address] Potassium [Moles/Vol] 3.7 mmol/L Normal 3.5-5.1 [facility] Comment on above: Performed By: #### C BC, CMP #### [address] Protein [Mass/Vol] 5.7 g/dL Low 6.4-8.9 [facility] Comment on above: Performed By: #### C BC, CMP #### [address] Sodium [Moles/Vol] 140 mmol/L Normal 136-145 [facility] Comment on above: Performed By: #### C BC, CMP #### [address] Urea nitrogen [Mass/Vol] 9 mg/dL Normal 7-25 [facility] Comment on above: Performed By: #### C BC, CMP #### [address] MR head/brain wo/w conon MR head/brain wo/w con [facility] Main [address] [place] [address] MRI Report Signed Patient: Bhupendra Rubi MR#: [id number] 306 : 1950 Acct:[id number] Age/Sex: 74 / F ADM Date: 02/11/25 Loc: Room: [address] [place] [address] Type: ADM IN Attending Dr: Jamin Covarrubias MD Copies to: DO Jamin Jj MD Ordering Provider: Kenn Ignacio DO Date of Service: 02/14/25 MR/MR head/brain wo/w con: Seizures with history of lung cancer. r/o mets MR head/brain wo/w con 02/14/2025 12:46 PM SIGN AND SYMPTOMS: Headache, seizures, abdominal pain, history of lung cancer PROTOCOL: Multiplanar multisequence MR images of the brain with and without IV contrast CONTRAST: 13 mL of intravenous ProHance COMPARISON: 02/11/2025 and 3.74 FINDINGS: Extra axial spaces: There is age-related cortical atrophy. Hemorrhage: None. Ventricular system: Within normal limits. Basal cisterns: Within normal limits and not effaced. Cerebral parenchyma: Gliosis and encephalomalacia is noted in the left MCA territory posteriorly consistent with a remote infarct. Remote lacunar infarcts are noted in the deep so nuclei. There is a remote right frontal infarct. Periventricular and subcortical white matter T2 and FLAIR hyperintense signal is noted consistent with chronic microvascular ischemic change. There is encephalomalacia within the junction of the body and genu the corpus callosum. No abnormal postcontrast enhancement. Midline shift: None.. Cerebellum: Within normal limits. Brainstem: Within normal limits. OTHER: Calvarium: Normal marrow signal. Vascular system: Satisfactory flow voids within the anterior and posterior circulation. Visualized Paranasal sinuses: Within normal limits. Visualized Orbits: Within normal limits. Visualized upper cervical spine: Within normal limits. Sella and skull base: Within normal limits. MR/MR head/brain wo/w con IMPRESSION: No acute intracranial pathology or abnormal postcontrast. Remote infarcts are noted bilaterally, similar to the prior exam. Similar remote lacunar infarcts are noted in the deep so nuclei. Impression dictated by: Neyda Salazar M.D. 02/14/2025 4:53 PM Dictation Location: [place] [address] Transcribed By: [facility] 02/14/25 1653 Dictated By: Neyda Salazar II, MD 02/14/25 1639 Signed By: 02/14/25 1656 Normal [facility] Surgical Pathology Reporton 02-14-2025 [place] [address]- Surgical Pathology Report Collected Date/Time: 02/08/2025 10:48 EDT Pathologist: Ev Mkceon MD Received Date/Time: 02/08/2025 13:25 EDT Moises FARFAN, Arden De Leon MD, Arden Lal Surgical Pathology Report - 02/14/2025 13:30 EDT - Auth (Verified) Final Diagnosis A: STOMACH, BIOPSY: - Oxyntic and antral-type mucosa with mild reactive gastropathy - No intestinal metaplasia identified. - No H. pylori microorganisms identified with immunostain. B: DUODENUM, BIOPSY: - Duodenal mucosa with no pathologic changes C: POLYP, STOMACH, POLYPECTOMY: - Gastric hyperplastic polyp (Electronic Signature) Myrlande. Linda MD 02/14/2025 13:30 Clinical Information GERD, epigastric pain, bloating, acid reflux, elevated liver enzymes Pre-Op Diagnosis: GERD, epigastric pain, bloating, acid reflux, elevated liver enzymes Procedure: EGD Post-Op Diagnosis: 1. Hiatal hernia 2. Fundic polyp status post resection 3. Gastropathy 4. Duodenitis Specimen(s) Received A.Gastric biopsy B.Duodenal biopsy C.Gastric polyp Gross Description A: Received in formalin labeled with patient name, number, and gastric biopsy are three fragments of chandler/pink tissue ranging from 0.1 cm up to 0.2 cm in greatest dimension. Specimen is entirely submitted in one cassette. B: Received in formalin labeled with patient name, number, and duodenal biopsy are three fragments of chandler/pink tissue each measuring 0.1 cm. Specimen is entirely submitted in one cassette. C: Received in formalin labeled with patient name, number, and gastric polyp is a single chandler/pink polypoid tissue measuring 0.5 x 0.4 x 0.2 cm. Multiple chandler/pink debridement-like materials measuring up to less than 0.1 cm are present. Specimen is entirely submitted in one cassette. (DC) DC:MCA Microscopic Description The use of one or more reagents in the above tests is regulated as an analyte specific reagent (ASR). The test or tests are ordered following initial H&E microscopic examination. The performance characteristics were determined by the [facility] Surgical Pathology. They have not been cleared or approved by the [place] Food and Drug Administration. The FDA has determined that such clearance or approval is not necessary. These tests are used for clinical Surgical Pathology Report Collected Date/Time: 02/08/2025 10:48 EDT Pathologist: Ev Mckeon MD Received Date/Time: 02/08/2025 13:25 EDT Moises FARFAN, Arden De Leon MD, Arden Bryant. Microscopic Description purposes. They should not be regarded as investigational or for research. Appropriate positive and negative controls are performed and are acceptable. This report was transcribed using voice recognition technology and might contain unintended computerized rubber compounder mixer errors. Microscopic examination performed unless gross only specified. Quality was accessed and acceptable. [facility] Comment on above: Performed By: #### [id number] #### [facility] [address] [place] [address] Complete Blood Count Auto Di ffon 02-13-2025 Basophils (Bld) [#/Vol] 0.1 10*3/uL Normal 0.0-0.2 [facility] Comment on above: Result Comment: PERF ORMED BY: [place] [address] PATHOLOGIST MANAGING PRINCIPAL OBDULIO SEAMAN M.D. Performed By: #### C BC, CMP #### [address] Basophils/100 WBC (Bld) 0.7 % Normal . T [facility]arl [facility] Comment on above: Performed By: #### C SUNDEEP, CMP #### [place] [address] [place] Eosinophils (Bld) [#/Vol] 0.1 10*3/uL Normal 0.0-0.45 [facility] Comment on above: Performed By: #### C SUNDEEP, CMP #### [place] [address] [place] Eosinophils/100 WBC (Bld) 1.3 % Normal . [facility] Comment on above: Performed By: #### C BC, CMP #### [address] Erythrocyte distribution width (RBC) [Ratio] 17.3 % High 11.9-15.3 [facility] Comment on above: Performed By: #### C BC, CMP #### [address] Hematocrit (Bld) [Volume fraction] 40.8 % Normal 34.0-46.4 [facility] Comment on above: Performed By: #### C BC, CMP #### [address] Hemoglobin (Bld) [Mass/Vol] 13.2 g/dL Normal 11.8-15.4 [facility] Comment on above: Performed By: #### C BC, CMP #### [address] Lymphocytes (Bld) [#/Vol] 2.2 10*3/uL Normal 1.00-4.8 [facility] Comment on above: Performed By: #### C BC, CMP #### [address] Lymphocytes/100 WBC (Bld) 22.6 % Normal . [facility] Comment on above: Performed By: #### C BC, CMP #### [address] MCH (RBC) [Entitic mass] 27.6 pg Normal 24.7-34.3 [facility] Comment on above: Performed By: #### C BC, CMP #### [address] MCV (RBC) [Entitic vol] 85.6 fL Normal 80-100 [facility] Comment on above: Performed By: #### C BC, CMP #### [address] Mean Corpuscular HGB Conc 32.3 g/dL Normal 32.0-35.0 [facility] Comment on above: Performed By: #### C BC, CMP #### [address] Monocytes (Bld) [#/Vol] 0.8 10*3/uL Normal 0.0-0.8 [facility] Comment on above: Performed By: #### C BC, CMP #### [place] [address] [place] Monocytes/100 WBC (Bld) 8.6 % Normal . [facility] Comment on above: Performed By: #### C BC, CMP #### [address] Neutrophils (Bld) [#/Vol] 6.5 10*3/uL Normal 1.8-7.7 [facility] Comment on above: Performed By: #### C BC, CMP #### [address] Neutrophils/100 WBC (Bld) 66.8 % Normal . [facility] Comment on above: Performed By: #### C BC, CMP #### [address] NRBC% 0.1 /100{WBC} Normal 0-0.5 [facility] Comment on above: Performed By: #### C BC, CMP #### [address] Platelet mean volume (Bld) [Entitic vol] 8.1 fL Normal 6.3-10.7 [facility] Comment on above: Performed By: #### C BC, CMP #### [address] Platelets (Bld) [#/Vol] 343 10*3/uL Normal 150-450 [facility] Comment on above: Performed By: #### C SUNDEEP, CMP #### [address] RBC (Bld) [#/Vol] 4.77 10*6/uL Normal 3.60-5.00 [facility] Comment on above: Performed By: #### C SUNDEEP, CMP #### [address] WBC (Bld) [#/Vol] 9.8 10*3/uL Normal 3.8-11.6 [facility] Comment on above: Performed By: #### C BC, CMP #### [address] White Blood Count 9.8 [CFU]/mL Normal 3.8-11.6 [facility] Comment on above: Performed By: #### C BC, CMP #### [address] Comprehensive Metabolic Pane perez 02-13-2025 Albumin [Mass/Vol] 3.7 g/dL Normal 3.5-5.7 [facility] Comment on above: Performed By: #### C BC, CMP #### [address] Albumin/Globulin [Mass ratio] 1.5 {ratio} Normal [facility] Comment on above: Performed By: #### C BC, CMP #### [address] ALP [Catalytic activity/Vol] 71 U/L Normal 34-104 [facility] Comment on above: Performed By: #### C BC, CMP #### [address] ALT [Catalytic activity/Vol] 8 U/L Normal 7-52 [facility] Comment on above: Performed By: #### C BC, CMP #### [address] Anion gap [Moles/Vol] 9.8 mmol/L Normal 6.0-15.0 [facility] Comment on above: Performed By: #### C BC, CMP #### [address] AST [Catalytic activity/Vol] 11 U/L Low 13-39 [facility] Comment on above: Performed By: #### C BC, CMP #### [address] Bilirubin [Mass/Vol] 0.4 mg/dL Normal 0.3-1.0 [facility] Comment on above: Performed By: #### C BC, CMP #### [address] Calcium [Mass/Vol] 8.8 mg/dL Normal 8.6-10.3 [facility] Comment on above: Performed By: #### C BC, CMP #### [place] [address] [place] Chloride [Moles/Vol] 104 mmol/L Normal 98-107 [facility] Comment on above: Performed By: #### C BC, CMP #### [address] CO2 [Moles/Vol] 31.1 mmol/L High 21.0-31.0 [facility] Comment on above: Performed By: #### C BC, CMP #### [address] Creatinine [Mass/Vol] 0.89 mg/dL Normal 0.60-1.20 [facility] Comment on above: Performed By: #### C BC, CMP #### [address] Creatinine Clr Calc Pharmacy 50.02 Normal [facility] Comment on above: Result Comment: PERF ORMED BY: [place] [address] PATHOLOGIST MANAGING PRINCIPAL OBDULIO SEAMAN M.D. Performed By: #### C BC, CMP #### [place] [address] [place] GFR/1.73 sq M.predicted MDRD (S/P/Bld) [Vol rate/Area] mL/min/{1.73_m2} Normal [facility] Comment on above: Performed By: #### C BC, CMP #### [address] Globulin (S) [Mass/Vol] 2.4 g/dL Normal [facility] Comment on above: Performed By: #### C BC, CMP #### [address] Glucose [Mass/Vol] 83 mg/dL Normal 70-100 [facility] Comment on above: Result Comment: [place] Glucose Reference Range is dependent on time and content of last meal. Glucose of more than 200 mg/dL in a nonstressed, ambulatory subject supports the diagnosis of Diabetes Mellitus. ADA recommended reference range Performed By: #### C BC, CMP #### [address] Potassium [Moles/Vol] 3.9 mmol/L Normal 3.5-5.1 [facility] Comment on above: Performed By: #### C BC, CMP #### [address] Protein [Mass/Vol] 6.1 g/dL Low 6.4-8.9 [facility] Comment on above: Performed By: #### C BC, CMP #### [address] Sodium [Moles/Vol] 141 mmol/L Normal 136-145 [facility] Comment on above: Performed By: #### C BC, CMP #### [address] Urea nitrogen [Mass/Vol] 9 mg/dL Normal 7-25 [facility] Comment on above: Performed By: #### C BC, CMP #### [address] Complete Blood Count Auto Di ffon 02-12-2025 Basophils (Bld) [#/Vol] 0.1 10*3/uL Normal 0.0-0.2 [facility] Comment on above: Result Comment: PERF ORMED BY: [place] [address] PATHOLOGIST MANAGING PRINCIPAL OBDULIO SEAMAN M.D. Performed By: #### L AMOT #### [facility] , Basophils/100 WBC (Bld) 1.0 % Normal . [facility] Comment on above: Performed By: #### L AMOT #### [facility] , Eosinophils (Bld) [#/Vol] 0.1 10*3/uL Normal 0.0-0.45 [facility] Comment on above: Performed By: #### L AMOT #### [facility] , Eosinophils/100 WBC (Bld) 1.4 % Normal . [facility] Comment on above: Performed By: #### L AMOT #### [facility] , Erythrocyte distribution width (RBC) [Ratio] 17.4 % High 11.9-15.3 [facility] Comment on above: Performed By: #### L AMOT #### [facility] , Hematocrit (Bld) [Volume fraction] 40.8 % Normal 34.0-46.4 [facility] Comment on above: Performed By: #### L AMOT #### [facility] , Hemoglobin (Bld) [Mass/Vol] 13.0 g/dL Normal 11.8-15.4 [facility] Comment on above: Performed By: #### L AMOT #### [facility] , Lymphocytes (Bld) [#/Vol] 2.0 10*3/uL Normal 1.00-4.8 [facility] Comment on above: Performed By: #### L AMOT #### [facility] , Lymphocytes/100 WBC (Bld) 23.2 % Normal . [facility] Comment on above: Performed By: #### L AMOT #### [facility] , MCH (RBC) [Entitic mass] 27.1 pg Normal 24.7-34.3 [facility] Comment on above: Performed By: #### L AMOT #### [facility] , MCV (RBC) [Entitic vol] 85.5 fL Normal 80-100 [facility] Comment on above: Performed By: #### L AMOT #### [facility] , Mean Corpuscular HGB Conc 31.8 g/dL Low 32.0-35.0 [facility] Comment on above: Performed By: #### L AMOT #### [facility] , Monocytes (Bld) [#/Vol] 0.9 10*3/uL High 0.0-0.8 [facility] Comment on above: Performed By: #### L AMOT #### [facility] , Monocytes/100 WBC (Bld) 10.6 % Normal . [facility] Comment on above: Performed By: #### L AMOT #### [facility] , Neutrophils (Bld) [#/Vol] 5.5 10*3/uL Normal 1.8-7.7 [facility] Comment on above: Performed By: #### L AMOT #### [facility] , Neutrophils/100 WBC (Bld) 63.8 % Normal . [facility] Comment on above: Performed By: #### L AMOT #### [facility] , NRBC% 0.3 /100{WBC} Normal 0-0.5 [facility] Comment on above: Performed By: #### L AMOT #### [facility] , Platelet mean volume (Bld) [Entitic vol] 8.3 fL Normal 6.3-10.7 [facility] Comment on above: Performed By: #### L AMOT #### [facility] , Platelets (Bld) [#/Vol] 327 10*3/uL Normal 150-450 [facility] Comment on above: Performed By: #### L AMOT #### [facility] , RBC (Bld) [#/Vol] 4.77 10*6/uL Normal 3.60-5.00 [facility] Comment on above: Performed By: #### L AMOT #### [facility] , WBC (Bld) [#/Vol] 8.6 10*3/uL Normal 3.8-11.6 [facility] Comment on above: Performed By: #### L AMOT #### [facility] , White Blood Count 8.6 [CFU]/mL Normal 3.8-11.6 [facility] Comment on above: Performed By: #### L AMOT #### [facility] , Comprehensive Metabolic Pane perez 02-12-2025 Albumin [Mass/Vol] 3.5 g/dL Normal 3.5-5.7 [facility] Comment on above: Performed By: #### L AMOT #### [facility] , Albumin/Globulin [Mass ratio] 1.4 {ratio} Normal [facility] Comment on above: Performed By: #### L AMOT #### [facility] , ALP [Catalytic activity/Vol] 69 U/L Normal 34-104 [facility] Comment on above: Performed By: #### L AMOT #### [facility] , ALT [Catalytic activity/Vol] 9 U/L Normal 7-52 [facility] Comment on above: Performed By: #### L AMOT #### [facility] , Anion gap [Moles/Vol] 8.4 mmol/L Normal 6.0-15.0 [facility] Comment on above: Performed By: #### L AMOT #### [facility] , AST [Catalytic activity/Vol] 11 U/L Low 13-39 [facility] Comment on above: Performed By: #### L AMOT #### [facility] , Bilirubin [Mass/Vol] 0.5 mg/dL Normal 0.3-1.0 [facility] Comment on above: Performed By: #### L AMOT #### [facility] , Calcium [Mass/Vol] 8.8 mg/dL Normal 8.6-10.3 [facility] Comment on above: Performed By: #### L AMOT #### [facility] , Chloride [Moles/Vol] 106 mmol/L Normal 98-107 [facility] Comment on above: Performed By: #### L AMOT #### [facility] , CO2 [Moles/Vol] 30.6 mmol/L Normal 21.0-31.0 [facility] Comment on above: Performed By: #### L AMOT #### [facility] , Creatinine [Mass/Vol] 0.90 mg/dL Normal 0.60-1.20 [facility] Comment on above: Performed By: #### L AMOT #### [facility] , Creatinine Clr Calc Pharmacy 50.54 Normal [facility] Comment on above: Result Comment: PERF ORMED BY: [facility] [place] [address] PATHOLOGIST MANAGING PRINCIPAL OBDULIO SEAMAN M.D. Performed By: #### L AMOT #### [facility] , GFR/1.73 sq M.predicted MDRD (S/P/Bld) [Vol rate/Area] mL/min/{1.73_m2} Normal [facility] Comment on above: Performed By: #### L AMOT #### [facility] , Globulin (S) [Mass/Vol] 2.5 g/dL Normal [facility] Comment on above: Performed By: #### L AMOT #### [facility] , Glucose [Mass/Vol] 83 mg/dL Normal 70-100 [facility] Comment on above: Result Comment: [facility] Glucose Reference Range is dependent on time and content of last meal. Glucose of more than 200 mg/dL in a nonstressed, ambulatory subject supports the diagnosis of Diabetes Mellitus. ADA recommended reference range Performed By: #### L AMOT #### [facility] , Potassium [Moles/Vol] 4.0 mmol/L Normal 3.5-5.1 [facility] Comment on above: Result Comment: Hemo lysis is present at a level that could interfere with the result. Contact lab if redraw is required Performed By: #### L AMOT #### [facility] , Protein [Mass/Vol] 6.0 g/dL Low 6.4-8.9 [facility] Comment on above: Performed By: #### L AMOT #### [facility] , Sodium [Moles/Vol] 141 mmol/L Normal 136-145 [facility] Comment on above: Performed By: #### L AMOT #### [facility] , Urea nitrogen [Mass/Vol] 9 mg/dL Normal 7-25 [facility] Comment on above: Performed By: #### L AMOT #### [facility] , Partial Thromboplastin Timeo n 02-12-2025 aPTT Coag (Bld) [Time] 32.0 s Normal 25.1-36.5 [facility] Comment on above: Result Comment: A he matocrit value greater than 55% may lead to inaccurate results in coagulation testing. Patients having hematocrit values >55% require a special collection tube for coagulation studies. Please contact the laboratory at [phone] for redraw instructions. PERFORMED BY: [facility] [address] [place] [address] PATHOLOGIST MANAGING PRINCIPAL OBDULIO SEAMAN M.D. Performed By: #### L AMOT #### [facility] , Prothrombin Time INRon 02-12 INR Coag (PPP) [Relative time] 1.3 {INR} Normal [facility] Comment on above: Result Comment: INR Therapeutic Range A) Pre- [...] valves: 3 - 4.5 Performed By: #### L AMOT #### [facility] , PT Coag (PPP) [Time] 14.9 s High 9.0-12.9 [facility] Comment on above: Result Comment: A he matocrit value greater than 55% may lead to inaccurate results in coagulation testing. Patients having hematocrit values >55% require a special collection tube for coagulation studies. Please contact the laboratory at [phone] for redraw instructions. Performed By: #### L AMOT #### [facility] , Acetaminophen [Mass/volume] in Serum or PlasmaOrdered By: Isabella Brown on 02-11-2025 Acetaminophen [Mass/Vol] 0.1 ug/mL Low 10.0-30.0 [facility] Comment on above: Result Comment: PERF ORMED BY: [place] [id number] PATHOLOGIST MANAGING PRINCIPAL OBDULIO SEAMAN M.D. Performed By: #### L ACOSAMIDE #### [facility] , Alanine aminotransferase [En zymatic activity/volume] in Serum or PlasmaOrdered By: Isabella Brown on 02-11-2025 ALT [Catalytic activity/Vol] 10 U/L Normal 7-52 [facility] Comment on above: Performed By: #### C EA #### [place] [address] [place] Albumin [Mass/volume] in Ser um or Plasma by Bromocresol green (BCG) dye binding methoOrdered By: Isabella Brown on 02-11-2025 Albumin BCG dye [Mass/Vol] 3.8 g/dL 3.5-5.7 [facility] Alkaline phosphatase [Enzyma tic activity/volume] in Serum or PlasmaOrdered By: Isabella Brown on 02-11-2025 ALP [Catalytic activity/Vol] 76 U/L Normal 34-104 [facility] Comment on above: Performed By: #### C EA #### [place] [address] [place] Ammonia [Moles/volume] in Pl asmaOrdered By: Isabella Brown on 02-11-2025 Ammonia (P) [Moles/Vol] 30 umol/L Normal 11-35 [facility] Comment on above: Result Comment: PERF ORMED BY: [place] [id number] PATHOLOGIST MANAGING PRINCIPAL OBDULIO SEAMAN M.D. Performed By: #### L ACOSAMIDE #### [facility] , Appearance of UrineOrdered B y: Isabella Brown on 02-11-2025 Appearance (U) Clear Normal Clear [facility] Comment on above: Order Comment: Name Collection Type:: Voided Performed By: #### U A #### [place] [id number] [facility] Arterial Blood Gason 025 ABG Base Excess -3.6 mmol/L Low -3.0-3.0 [facility] Comment on above: Performed By: #### L AMOT #### [facility] , ABG Frac Inspired O2 28 % Normal [facility] Comment on above: Performed By: #### L AMOT #### [facility] , ABG Liter Flow 1.5 Normal [facility] Comment on above: Performed By: #### L AMOT #### [facility] , ABG Oxygen Content 7.3 mmol/L Normal 6.6-9.7 [facility] Comment on above: Performed By: #### L AMOT #### [facility] , ABG Oxygen Saturation 90.4 % Low 95.0-100.0 [facility] Comment on above: Performed By: #### L AMOT #### [facility] , ABG PCO2 49.2 mm[Hg] High 35.0-45.0 [facility] Comment on above: Performed By: #### L AMOT #### [facility] , ABG PH 7.29 Low 7.35-7.45 [facility] Comment on above: Performed By: #### L AMOT #### [facility] , ABG PO2 63.2 mm[Hg] Low 80.0-100.0 [facility] Comment on above: Performed By: #### L AMOT #### [facility] , Oxygen Device Nasal Cannula Normal [facility] Comment on above: Performed By: #### L AMOT #### [facility] , Respiratory Critical Normal [facility] Comment on above: Result Comment: Crit ical Value called on: 02/11/2025 at 14:29 PERFORMED BY: [facility] [place] [address] PATHOLOGIST MANAGING PRINCIPAL OBDULIO SEAMAN M.D. Performed By: #### L AMOT #### [facility] , VBG Draw Site Left Brachial Normal [facility] Comment on above: Performed By: #### L AMOT #### [facility] , Arterial Blood GasOrdered By : Isabella Brown on 02-11-2025 CO2 [Moles/Vol] 24.8 mmol/L Normal 23.0-27.0 [facility] Comment on above: Performed By: #### L AMOT #### [facility] , HCO3 (Bld) [Moles/Vol] 23.3 mmol/L Normal 23.0-29.0 [facility] Comment on above: Performed By: #### L AMOT #### [facility] , Aspartate aminotransferase [ Enzymatic activity/volume] in Serum or PlasmaOrdered By: Isabella Brown on 02-11-2025 AST [Catalytic activity/Vol] 11 U/L Low 13-39 [facility] Comment on above: Performed By: #### C EA #### [address] BNP ser/plasOrdered By: David Brown on 02-11-2025 Natriuretic peptide B (Bld) [Mass/Vol] 32.0 pg/mL Normal 5-100 [facility] Comment on above: Result Comment: PERF ORMED BY: [place] [address] PATHOLOGIST MANAGING PRINCIPAL OBDULIO SEAMAN M.D. Performed By: #### C EA #### [address] Basic Metabolic Panelon Creatinine Clr Calc Pharmacy 38.80 Normal [facility] Comment on above: Performed By: #### C EA #### [address] GFR/1.73 sq M.predicted MDRD (S/P/Bld) [Vol rate/Area] 50.092 mL/min/{1.73_m2} Normal [facility] Comment on above: Performed By: #### C EA #### [facility] [address] Basophils [#/volume] in Bloo d by Automated countOrdered By: Isabella Brown on 02-11-2025 Basophils (Bld) [#/Vol] 0.1 10*3/uL Normal 0.0-0.2 [facility] Comment on above: Result Comment: PERF ORMED BY: [facility] [address] [place] [address] PATHOLOGIST MANAGING PRINCIPAL OBDULIO SEAMAN M.D. Performed By: #### L ACOSAMIDE #### [facility] , Basophils/100 leukocytes in Blood by Automated countOrdered By: Isabella Brown on 02-11-2025 Basophils/100 WBC (Bld) 0.6 % Normal . [facility] Comment on above: Performed By: #### L ACOSAMIDE #### [facility] , Bilirubin Test strip Ql (U)O rdered By: Isabella Brown on 02-11-2025 Bilirubin Ql (U) Negative Negative [facility] Bilirubin.direct [Mass/volum e] in Serum or PlasmaOrdered By: Isabella Brown on 02-11-2025 Bilirubin.direct [Mass/Vol] 0.10 mg/dL 0.03-0.18 [facility] Bilirubin.total [Mass/volume ] in Serum or PlasmaOrdered By: Isabella Brown on 02-11-2025 Bilirubin [Mass/Vol] 0.5 mg/dL Normal 0.3-1.0 [facility] Comment on above: Performed By: #### C EA #### [facility] [address] Blood Cultureon 02-11-2025 Bacteria identified Cx Nom (Bld) NO GROWTH 5 DAYS PERFORMED BY: [facility] [address] [place] [address] PATHOLOGIST MANAGING PRINCIPAL OBDULIO SEAMAN M.D. Normal [facility] Comment on above: Performed By: #### L ACOSAMIDE #### [facility] , CT angio abdomen pelvison CT angio abdomen pelvis [facility] [place] [address] [place] [address] CT Scan Report Signed Patient: Bhupendra Rubi MR#: [id number] 306 : 1950 Acct:[id number] Age/Sex: 74 / F ADM Date: 02/11/25 Loc: ER Room: Type: [facility] Attending Dr: Copies to: Isabella Brown MD Ordering Provider: Isabella Brown MD Date of Service: 02/11/25 CT/CT angio abdomen pelvis: known aneurysm, sudden abd pain ([id number]) CT/CT angio chest: seizure, arreola CT angio chest, CT angio abdomen pelvis 02/11/2025 1:31 PM SIGN AND SYMPTOMS: Generalized abdominal pain, nausea and vomiting, known abdominal aortic aneurysm, syncopal episode, seizure CONTRAST: 180 mL of intravenous Isovue-370 TECHNIQUE: Multidetector CT axial slices of the chest, abdomen and pelvis were obtainedwith IV contrast. Multiplanar reformats were performed and viewed on a separate workstation and reviewed to further define anatomy and possible pathology. CT was performed with one or more of the following dose reduction techniques: Automated exposure control, adjustment of the mA and/or kV according to patient size, or use of iterative reconstruction technique. COMPARISON: 01/16/2025. FINDINGS: Lower neck: Please see separately dictated CT of the head and neck from the same date Vessels: Atherosclerotic changes are noted in the thoracic aorta and origins of great vessels without significant narrowing of the proximal left subclavian artery. Calcified plaque is noted in the carotid bifurcations. There is no pulmonary embolism. No dissection or occlusion. Mediastinum and Maddi: Within normal limits. Heart: Normal size. There is a small pericardial effusion.. Airways: Within normal limits Lungs: There is masslike opacity in the left upper lobe inferiorly and laterally measuring 2.4 cm in greatest dimension similar to the prior exam. There is dependent atelectasis in the lung bases. Mild emphysematous changes are noted. Pleura: Within normal limits. Chest Wall: Within normal limits. Abdomen: Liver: The liver is hypoattenuating suggesting hepatic steatosis. Bile Ducts: Normal caliber. Gallbladder: Previously removed Pancreas: within normal limits. Spleen: within normal limits. Adrenals: within normal limits. Kidneys: Simple cysts are noted in the renal cortices. Pelvis: Reproductive Organs: No pelvic masses. Ureters: within normal limits. Bladder: within normal limits. Bowel: Normal caliber. There is a normal appendix in the right lower quadrant. Mesenteric Lymph Nodes: No enlarged mesenteric lymph nodes. Peritoneum: No ascites or free air, no fluid collection. Vessels: Atherosclerotic changes are noted in the abdominal aorta and its branches. There is mild aneurysmal dilatation of the infrarenal abdominal aorta measuring 4.1 cm in greatest dimension similar to the prior exam. No dissection or occlusion.. Retroperitoneum: within normal limits. Abdominal Wall: within normal limits. Bones: Degenerative changes are noted in the thoracolumbar spine, shoulders, and sacroiliac joints. CT/CT angio chest IMPRESSION: No evidence of dissection or occlusion. No pulmonary embolism. There is mild aneurysmal dilatation of the infrarenal abdominal aorta measuring 4.1 cm in greatest dimension similar to the prior exam. There is masslike opacity in the left upper lobe inferiorly and laterally measuring 2.4 cm in greatest dimension similar to the prior exam. There is a small pericardial effusion. No bowel obstruction or obstructive uropathy. No acute intra-abdominal pathology is noted. Hepatic steatosis. Impression dictated by: Neyda Salazar M.D. 02/11/2025 2:01 PM Dictation Location: [place] [address] Transcribed By: [facility] 02/11/25 1401 Dictated By: Neyda Salazar II, MD 02/11/25 1350 Signed By: 02/11/25 1401 Normal [facility] CT angio headon 02-11-2025 CT angio head [facility] [place] [address] CT Scan Report Signed Patient: Bhupendra Rubi MR#: [id number] 306 : 1950 Acct:[id number] Age/Sex: 74 / F ADM Date: 02/11/25 Loc: ER Room: Type: PRE ER Attending Dr: Copies to: Isabella Brown MD Ordering Provider: Isabella Brown MD Date of Service: 02/11/25 CT/CT angio head: seizure, arreola ([id number]) CT/CT head/brain wo con: seizure, arreola ([id number]) CT/CT angio neck: SYNCOPAL EPISODE VS SEIZURE CT head/brain wo con, CT angio neck, CT angio head 02/11/2025 1:32 PM SIGNS AND SYMPTOMS: Generalized abdominal pain, nausea and vomiting, known abdominal aortic aneurysm, syncopal episode, seizure CONTRAST: 180 mL of intravenous Isovue-370 TECHNIQUE: Multi-detector CT angiography axial slices of the head were obtained before and during intravenous administration of IV contrast material. Sagittal, coronal, and 3-D reconstructions were performed and viewed on a separate workstation. CT was performed with one or more of the following dose reduction techniques: Automated exposure control, adjustment of the mA and/or kV according to patient size, or use of iterative reconstruction technique. Stenoses were measured using the NASCET criteria. COMPARISON: 06/14/2024 FINDINGS: Noncontrast head CT: There is no shift of the midline structures, acute intracranial bleeding, mass effects, or evidence of acute ischemia. Gliosis and encephalomalacia is noted in the left temporal, parietal, and occipital lobes. This is consistent with a remote infarct. There is periventricular white matter hypoattenuation. There is a remote cortical infarct in the lateral right frontal cortex. The ventricular system is normal in size. The brainstem and the cerebellum are unremarkable. The visualized intraorbital contents and the visualized soft tissue in the infratemporal spaces show no abnormality. Mucosal thickening is noted in the left maxillary sinus. The osseous structures in the skull base and the calvarium show no acute abnormality. CTA HEAD: The superior cerebellar arteries, posterior inferior cerebellar arteries, and the basilar artery are within normal limits. There is irregular narrowing of the P1, P2, and T3 segments of the posterior cerebral arteries left greater than right with significant focal stenosis at the P1/P2 junction on the left. The intracranial segments of the internal carotid arteries are within normal limits. There are normal anterior and middle cerebral arteries. Anterior communicating artery is patent. Posterior communicating arteries are present. The deep venous system and dural venous systems appear to be patent. No bony abnormalities are appreciated. There is partial visualization of a masslike opacity in the CTA NECK: Calcified plaque is noted in the aortic arch and origins of great vessels with moderate to severe narrowing of the proximal left subclavian artery.. The subclavian arteries are within normal limits. The vertebral arteries arise from the subclavian arteries. Calcified plaque is noted in the origin of the left vertebral artery contributing to moderate stenosis. The vertebral arteries are otherwise normal in course and caliber up to the skull base. Calcified plaque is noted in the carotid bifurcation on the right with approximately 30% stenosis. The common and internal carotid arteries are otherwise normal in course and caliber up to the skull base. There is partial visualization of a masslike opacity in the left upper lobe laterally. No acute bony abnormalities are identified. The paraspinous soft tissues are within normal limits. CT/CT head/brain wo con IMPRESSION: No acute intracranial pathology. Remote infarcts are redemonstrated as above. Calcified plaque is noted in the carotid bifurcation on the right with approximately 30% stenosis. Calcified plaque contributes to moderate narrowing of the origin of the left vertebral artery. There is irregular narrowing of the P1, P2, and T3 segments of the posterior cerebral arteries left greater than right with significant focal stenosis at the P1/P2 junction on the left. This is likely chronic in nature given the known remote left-sided infarct. No evidence of aneurysmal dilatation, dissection, or occlusion. Impression dictated by: Neyda Salazar M.D. 02/11/2025 1:49 PM Dictation Location: [place] [address] Transcribed By: JOSE MIGUEL 02/11/25 1346 Dictated By: Neyda Salazar II, MD 02/11/25 1338 Signed By: 02/11/25 1349 Normal [facility] Calcium [Mass/volume] in Ser um or PlasmaOrdered By: Isabella Brown on 02-11-2025 Calcium [Mass/Vol] 9.0 mg/dL Normal 8.6-10.3 [facility] Comment on above: Performed By: #### C EA #### [facility] [address] Carbon dioxide, total [Moles /volume] in Serum or PlasmaOrdered By: Isabella Brown on 02-11-2025 CO2 [Moles/Vol] 26.3 mmol/L Normal 21.0-31.0 [facility] Comment on above: Performed By: #### C EA #### [facility] [address] [place] [address] [place] Chloride [Moles/volume] in S clinton or PlasmaOrdered By: Isabella Brown on 02-11-2025 Chloride [Moles/Vol] 106 mmol/L Normal 98-107 [facility] Comment on above: Performed By: #### C EA #### [address] Color of Urine by AutoOrdere d By: Isabella Brown on 02-11-2025 Color (U) Colorless Normal [facility] Comment on above: Order Comment: Name Collection Type:: Voided Performed By: #### U A #### [address] Complete Blood Count Auto Di ffon 02-11-2025 Mean Corpuscular HGB Conc 32.2 g/dL Normal 32.0-35.0 [facility] Comment on above: Performed By: #### L ACOSAMIDE #### [facility] , Monocytes/100 WBC (Bld) 16.76 % Normal 0.00-20.00 [facility] Comment on above: Performed By: #### L ACOSAMIDE #### [facility] , NRBC% 0.0 /100{WBC} Normal 0-0.5 [facility] Comment on above: Performed By: #### L ACOSAMIDE #### [facility] , White Blood Count 10.6 [CFU]/mL Normal 3.8-11.6 [facility] Comment on above: Performed By: #### L ACOSAMIDE #### [facility] , Creatine kinase [Enzymatic a ctivity/volume] in Serum or PlasmaOrdered By: Isabella Brown on 02-11-2025 CK [Catalytic activity/Vol] 31 U/L Normal 30-223 [facility] Comment on above: Performed By: #### C EA #### [place] [address] [place] Creatinine [Mass/volume] in Serum or PlasmaOrdered By: Isabella Brown on 02-11-2025 Creatinine [Mass/Vol] 1.16 mg/dL Normal 0.60-1.20 [facility] Comment on above: Performed By: #### C EA #### [facility] [address] [place] [id number] [facility] ECG 12 lead ECGon 02-11-2025 ECG 12 lead ECG [facility] [address] [place] [address] Electrocardiograph Report Signed Patient: Bhupendra Rubi MR#: [id number] : 1950 Acct:[id number] Age/Sex: 74 / F ADM Date: 02/11/25 Loc: Room: 2F3847-3 Type: ADM IN Attending Dr: Matteo Zaragoza MD Ordering Provider: Isabella Brown MD Date of Service: 02/11/2509/06/1245 ECG/ECG 12 lead ECG: CHEST PAIN Copies to: Test Reason : Blood Pressure : 140/70 mmHG Vent. Rate : 83 BPM Atrial Rate : 83 BPM P-R Int : 190 ms QRS Dur : 86 ms QT Int : 384 ms P-R-T Axes : 74 -24 80 degrees QTcB Int : 451 ms Normal sinus rhythm Confirmed by Isabella Brown MD ([id number]) on 02/11/2025 7:37:09 PM Referred By: Electronically Signed By: Isabella Brown MD Transcribed By: MUS Signed By Isabella Brown MD 09/06 Normal [facility] Eosinophils [#/volume] in Bl ood by Automated countOrdered By: Isabella Brown on 02-11-2025 Eosinophils (Bld) [#/Vol] 0.1 10*3/uL Normal 0.0-0.45 [facility] Comment on above: Performed By: #### L ACOSAMIDE #### [facility] , Eosinophils/100 leukocytes i n Blood by Automated countOrdered By: Isabella Brown on 02-11-2025 Eosinophils/100 WBC (Bld) 0.6 % Normal . [facility] Comment on above: Performed By: #### L ACOSAMIDE #### [facility] , Erythrocyte distribution wid th [Ratio] by Automated countOrdered By: Isabella Brown on 02-11-2025 Erythrocyte distribution width (RBC) [Ratio] 17.4 % High 11.9-15.3 [facility] Comment on above: Performed By: #### L ACOSAMIDE #### [facility] , Erythrocytes [#/volume] in B lood by Automated countOrdered By: Isabella Brown on 02-11-2025 RBC (Bld) [#/Vol] 4.93 10*6/uL Normal 3.60-5.00 [facility] Comment on above: Performed By: #### L ACOSAMIDE #### [facility] , Ethanol [Mass/volume] in Ser um or PlasmaOrdered By: Isabella Brown on 02-11-2025 Ethanol [Mass/Vol] mg/dL Normal [facility] Comment on above: Performed By: #### L ACOSAMIDE #### [facility] , Ethyl Alcohol Profileon Percent Ethanol Not performed Normal [facility] Comment on above: Result Comment: PERF ORMED BY: [facility] [address] [place] [address] PATHOLOGIST MANAGING PRINCIPAL OBDULIO SEAMAN M.D. Performed By: #### L ACOSAMIDE #### [facility] , Glucose [Mass/volume] in Ser um or PlasmaOrdered By: Isabella Brown on 02-11-2025 Glucose [Mass/Vol] 131 mg/dL High 70-100 [facility] Comment on above: ADA recommended refe rence rangeRandom Glucose Reference Range is dependent on time and content of last meal. Glucose of more than 200 mg/dL in a nonstressed, ambulatory subject supports the diagnosis of Diabetes Mellitus. Result Comment: [place] om Glucose Reference Range is dependent on time and content of last meal. Glucose of more than 200 mg/dL in a nonstressed, ambulatory subject supports the diagnosis of Diabetes Mellitus. ADA recommended reference range Performed By: #### C EA #### [facility] [address] Glucose [Mass/volume] in Uri ne by Test stripOrdered By: Isabella Brown on 02-11-2025 Glucose Test strip (U) [Mass/Vol] Normal mg/dL [facility] Hematocrit [Volume Fraction] of Blood by Automated countOrdered By: Isabella Brown on 02-11-2025 Hematocrit (Bld) [Volume fraction] 41.4 % Normal 34.0-46.4 [facility] Comment on above: Performed By: #### L ACOSAMIDE #### [facility] , Hemoglobin Test strip Ql (U) Ordered By: Isabella Brown on 02-11-2025 Hemoglobin Ql (U) Negative Negative [facility] Hemoglobin [Mass/volume] in BloodOrdered By: Isabella Brown on 02-11-2025 Hemoglobin (Bld) [Mass/Vol] 13.3 g/dL Normal 11.8-15.4 [facility] Comment on above: Performed By: #### L ACOSAMIDE #### [facility] , Hepatic Panelon 02-11-2025 Albumin [Mass/Vol] 3.8 g/dL Normal 3.5-5.7 [facility] Comment on above: Performed By: #### C EA #### [address] Bilirubin,Indirect 0.4 mg/dL Normal [facility] Comment on above: Performed By: #### C EA #### [facility] [address] [place] [address] [place] Bilirubin.indirect [Mass/Vol] 0.10 mg/dL Normal 0.03-0.18 [facility] Comment on above: Performed By: #### C EA #### [place] [address] [place] INR in Platelet poor plasma by Coagulation assayOrdered By: Isabella Brown on 02-11-2025 INR Coag (PPP) [Relative time] 1.4 {INR} [facility] Comment on above: INR Therapeutic Rang [...] with mechanical heart valves: 3 - 4.5 PERFORMED BY: [place] [address] PATHOLOGIST MANAGING PRINCIPAL OBDULIO SEAMAN M.D. Performed By: #### P ATH TO [facility] #### [facility] [address] [place] [address] Ketones [Presence] in Urine by Test stripOrdered By: Isabella Brown on 02-11-2025 Ketones Ql (U) Negative Normal [facility] Comment on above: Order Comment: Name Collection Type:: Voided Performed By: #### U A #### [place] [address] [place] Lacosamideon 02-11-2025 Lacosamide Normal . [facility] Comment on above: Result Comment: Test not performed. Insufficient specimen to perform or complete analysis. Contacted: your facility 02-18-25 This test was developed and its performance characteristics determined by [employer] It has not been cleared or approved by the Food and Drug Administration. Limit of Detection 0.5 Mean plasma concentrations following maintenance dose 200 mg/day 4.99 +/- 2.51 ug/mL 400 mg/day 9.35 +/- 4.22 ug/mL 600 mg/day 12.46 +/- 5.60 ug/mL PERFORMED BY: [place] [address] PATHOLOGIST MANAGING PRINCIPAL OBDULIO SEAMAN M.D. Performed By: #### L ACOSAMIDE #### [facility] , Lactate [Moles/volume] in Se rum or PlasmaOrdered By: Isabella Brown on 02-11-2025 Lactate [Moles/Vol] 1.5 mmol/L Normal 0.5-1.9 [facility] Comment on above: Lactic Acid referenc e range has been updated to 0.5 1.9 mmol/L and the critical range of 2.0 or greater. Result Comment: Lact ic Acid reference range has been updated to 0.5 ? 1.9 mmol/L and the critical range of 2.0 or greater. PERFORMED BY: [place] [address] PATHOLOGIST MANAGING PRINCIPAL OBDULIO SEAMAN M.D. Performed By: #### L ACOSAMIDE #### [facility] , Lamotrigine (Lamictal)on Lamotrigine (Lamictal) 8.4 Normal 2.0-20.0 [facility] Comment on above: Result Comment: Dete ction Limit = 1.0 Performed at: [address] [id number] Disability Hearing Officer: Erick Khalil MD, Phone: [phone] PERFORMED BY: [place] [address] PATHOLOGIST MANAGING PRINCIPAL OBDULIO SEAMAN M.D. Performed By: #### L AMOT #### [facility] , Leukocyte esterase [Presence ] in Urine by Test stripOrdered By: Isabella Brown on 02-11-2025 Leukocyte esterase Test strip Ql (U) Negative Normal [facility] Comment on above: Order Comment: Name Collection Type:: Voided Performed By: #### U A #### [address] Leukocytes [#/volume] correc pilar for nucleated erythrocytes in Blood by Automated counOrdered By: Isabella Brown on 02-11-2025 WBC corrected for nucl RBC Auto (Bld) [#/Vol] 10.6 10*3/uL 3.8-11.6 [facility] Leukocytes [#/volume] in Blo od by Automated countOrdered By: Isabella Brown on 02-11-2025 WBC (Bld) [#/Vol] 10.6 10*3/uL Normal 3.8-11.6 [facility] Comment on above: Performed By: #### L ACOSAMIDE #### [facility] , Lipase [Enzymatic activity/v olume] in Serum or PlasmaOrdered By: Isabella Brown on 02-11-2025 Lipase [Catalytic activity/Vol] 14.0 U/L Normal 11.0-82.0 [facility] Comment on above: Result Comment: PERF ORMED BY: [place] [address] PATHOLOGIST MANAGING PRINCIPAL OBDULIO SEAMAN M.D. Performed By: #### C EA #### [address] Lymphocytes [#/volume] in Bl ood by Automated countOrdered By: Isabella Brown on 02-11-2025 Lymphocytes (Bld) [#/Vol] 2.3 10*3/uL Normal 1.00-4.8 [facility] Comment on above: Performed By: #### L ACOSAMIDE #### [facility] , Lymphocytes/100 leukocytes i n Blood by Automated countOrdered By: Isabella Brown on 02-11-2025 Lymphocytes/100 WBC (Bld) 21.9 % Normal . [facility] Comment on above: Performed By: #### L ACOSAMIDE #### [facility] , MCH [Entitic mass] by Automa pilar countOrdered By: Isabella Brown on 02-11-2025 MCH (RBC) [Entitic mass] 27.0 pg Normal 24.7-34.3 [facility] Comment on above: Performed By: #### L ACOSAMIDE #### [facility] , MCHC Auto (RBC) [Mass/Vol]Or dered By: Isabella Brown on 02-11-2025 MCHC (RBC) [Mass/Vol] 32.2 g/dL 32.0-35.0 [facility] MCV [Entitic volume] by Auto mated countOrdered By: Isabella Borwn on 02-11-2025 MCV (RBC) [Entitic vol] 84.0 fL Normal 80-100 [facility] Comment on above: Performed By: #### L ACOSAMIDE #### [facility] , Monocyte distribution width [Entitic volume] in Blood by AutomatedOrdered By: Isabella Brown on 02-11-2025 Monocyte distribution width Auto (Bld) [Entitic vol] 16.76 % 0.00-20.00 [facility] Monocytes [#/volume] in Bloo d by Automated countOrdered By: Isabella Brown on 02-11-2025 Monocytes (Bld) [#/Vol] 0.9 10*3/uL High 0.0-0.8 [facility] Comment on above: Performed By: #### L ACOSAMIDE #### [facility] , Monocytes/100 leukocytes in Blood by Automated countOrdered By: Isabella Brown on 02-11-2025 Monocytes/100 WBC (Bld) 8.7 % Normal . [facility] Comment on above: Performed By: #### L ACOSAMIDE #### [facility] , Neutrophils [#/volume] in Bl ood by Automated countOrdered By: Isabella Brown on 02-11-2025 Neutrophils (Bld) [#/Vol] 7.2 10*3/uL Normal 1.8-7.7 [facility] Comment on above: Performed By: #### L ACOSAMIDE #### [facility] , Neutrophils/100 leukocytes i n Blood by Automated countOrdered By: Isabella Brown on 02-11-2025 Neutrophils/100 WBC (Bld) 68.2 % Normal . [facility] Comment on above: Performed By: #### L ACOSAMIDE #### [facility] , Nitrite Test strip Ql (U)Ord ered By: Isabella Brown on 02-11-2025 Nitrite Ql (U) Negative Negative [facility] No Panel InformationOrdered By: Isabella Brown on 02-11-2025 Arterial Blood Base Excess -3.6 mmol/L Low -3.0-3.0 [facility] Arterial Blood Oxygen Content 7.3 mmol/L 6.6-9.7 [facility] Arterial Blood Oxygen Saturation 90.4 % Low 95.0-100.0 [facility] Arterial Blood Partial Pressure CO2 49.2 mm[Hg] High 35.0-45.0 [facility] Arterial Blood Partial Pressure O2 63.2 mm[Hg] Low 80.0-100.0 [facility] Arterial Blood pH 7.29 Low 7.35-7.45 [facility] Blood Gas Critical Value See comment [facility] Comment on above: Critical Value chaves d on: 02/11/2025 at 14:29 Blood Gas Liter Flow 1.5 L/min [facility] Blood Gas Sample Site Left brachial [facility] FiO2 28 % [facility] Oxygen Delivery Device Nasal cannula [facility] Estimated GFR (CKD-EPI) 50.092 mL/Min [facility] Creatinine Clearance (Chem 38.80 [facility] Nucleated erythrocytes [Pres ence] in Blood by Automated countOrdered By: Isabella Brown on 02-11-2025 Nucleated RBC Auto Ql (Bld) 0.0 /100{WBC} 0-0.5 [facility] Platelet mean volume [Entiti c volume] in Blood by Automated countOrdered By: Isabella Brown on 02-11-2025 Platelet mean volume (Bld) [Entitic vol] 8.0 fL Normal 6.3-10.7 [facility] Comment on above: Performed By: #### L ACOSAMIDE #### [facility] , Platelets [#/volume] in Bloo d by Automated countOrdered By: Isabella Brown on 02-11-2025 Platelets (Bld) [#/Vol] 367 10*3/uL Normal 150-450 [facility] Comment on above: Performed By: #### L ACOSAMIDE #### [facility] , Potassium [Moles/volume] in Serum or PlasmaOrdered By: Isabella Brown on 02-11-2025 Potassium [Moles/Vol] 3.6 mmol/L Normal 3.5-5.1 [facility] Comment on above: Performed By: #### C EA #### [facility] [address] Prolactinon 02-11-2025 Prolactin 35.66 ng/mL High 2.74-19.64 [facility] Comment on above: Result Comment: PERF ORMED BY: [place] [address] PATHOLOGIST MANAGING PRINCIPAL OBDULIO SEAMAN M.D. Performed By: #### C EA #### [address] Prolactin [Mass/volume] in S clinton or PlasmaOrdered By: Isabella Brown on 02-11-2025 Prolactin [Mass/Vol] 35.66 ng/mL High 2.74-19.64 [facility] Protein Test strip (U) [Mass /Vol]Ordered By: Isabella Brown on 02-11-2025 Protein (U) [Mass/Vol] Negative Negative [facility] Protein [Mass/volume] in Ser um or PlasmaOrdered By: Isabella Brown on 02-11-2025 Protein [Mass/Vol] 6.4 g/dL Normal 6.4-8.9 [facility] Comment on above: Performed By: #### C EA #### [place] [id number] [facility] Prothrombin time (PT)Ordered By: Isabella Brown on 02-11-2025 PT Coag (PPP) [Time] 16.0 s High 9.0-12.9 [facility] Comment on above: A hematocrit value g reater than 55% may lead to inaccurate results in coagulation testing. Patients having hematocrit values >55% require a special collection tube for coagulation studies. Please contact the laboratory at [phone] for redraw instructions. Result Comment: A he matocrit value greater than 55% may lead to inaccurate results in coagulation testing. Patients having hematocrit values >55% require a special collection tube for coagulation studies. Please contact the laboratory at [phone] for redraw instructions. Performed By: #### P ATH TO [facility] #### [address] Salicylateon 02-11-2025 Salicylate <1.5 Low 15.0-30.0 [facility] Comment on above: Result Comment: Odette ents treated with Sulfasalazine may generate a false high result for Salicylate. Performed By: #### L ACOSAMIDE #### [facility] , Salicylates [Mass/volume] in Serum or PlasmaOrdered By: Isabella Brown on 02-11-2025 Salicylates [Mass/Vol] mg/dL Low 15.0-30.0 [facility] Comment on above: Patients treated wit h Sulfasalazine may generate a false high result for Salicylate. Serum globulin measurement b y calculation (mass/volume)Ordered By: Isabella Brown on 02-11-2025 Globulin (S) [Mass/Vol] 2.6 g/dL Normal [facility] Comment on above: Performed By: #### C EA #### [address] Serum or plasma albumin/glob ulin mass ratioOrdered By: Isabella Brown on 02-11-2025 Albumin/Globulin [Mass ratio] 1.5 {ratio} Normal [facility] Comment on above: Performed By: #### C EA #### [address] Serum or plasma anion gap de terminationOrdered By: Isabella Brown on 02-11-2025 Anion gap [Moles/Vol] 12.3 mmol/L Normal 6.0-15.0 [facility] Comment on above: Performed By: #### C EA #### [address] Serum or plasma ethanol josemanuel urement (mass/volume)Ordered By: Isabella Brown on 02-11-2025 Ethanol [Mass/Vol] TNP [facility] Comment on above: Test not performed Serum or plasma non-glucuron idated bilirubin measurement (mass/volume)Ordered By: Isabella Brown on 02-11-2025 Bilirubin.indirect [Mass/Vol] 0.4 mg/dL [facility] Sodium [Moles/volume] in Ser um or PlasmaOrdered By: Isabella Brown on 02-11-2025 Sodium [Moles/Vol] 141 mmol/L Normal 136-145 [facility] Comment on above: Performed By: #### C EA #### [address] Specific gravity Test strip (U) [Rel density]Ordered By: Isabella Brown on 02-11-2025 Specific gravity (U) [Rel density] 1.038 High 1.001-1.03 0 [facility] Thyrotropin [Units/volume] i n Serum or PlasmaOrdered By: Isabella Brown on 02-11-2025 TSH Qn 2.73 m[IU]/L Normal 0.45-5.33 [facility] Comment on above: Performed By: #### C EA #### [address] Thyroxine (T4) free [Mass/vo lume] in Serum or PlasmaOrdered By: Isabella Brown on 02-11-2025 Free T4 [Mass/Vol] 1.06 ng/dL Normal 0.61-1.12 [facility] Comment on above: Performed By: #### C EA #### [address] Troponin I High Sensitivityo n 02-11-2025 Troponin I High Sensitivity 4 Normal 0-15 [facility] Comment on above: Result Comment: The Troponin units of report have been changed to meet the Chest Pain Accreditation requirement, element EC5.M1l2. Troponin units are changed from pg/ml to ng/L. Also, the decimal is removed and results are in whole numbers. PERFORMED BY: [place] [address] PATHOLOGIST MANAGING PRINCIPAL OBDULIO SEAMAN M.D. Performed By: #### L AMOT #### [facility] , Troponin I High Sensitivity 3 Normal 0-15 [facility] Comment on above: Result Comment: The Troponin units of report have been changed to meet the Chest Pain Accreditation requirement, element EC5.M1l2. Troponin units are changed from pg/ml to ng/L. Also, the decimal is removed and results are in whole numbers. PERFORMED BY: [place] [address] PATHOLOGIST MANAGING PRINCIPAL OBDULIO SEAMAN M.D. Performed By: #### C EA #### [address] Troponin I.cardiac [Mass/vol ume] in Serum or Plasma by Detection limit <= 0.01 ng/mLOrdered By: Isabella Brown on 02-11-2025 Troponin I.cardiac DL <= 0.01 ng/mL [Mass/Vol] 4 ng/L 0-15 [facility] Comment on above: The Troponin units o f report have been changed to meet the Chest Pain Accreditation requirement, element EC5.M1l2. Troponin units are changed from pg/ml to ng/L. Also, the decimal is removed and results are in whole numbers. Urea nitrogen [Mass/volume] in Serum or PlasmaOrdered By: Isabella Brown on 02-11-2025 Urea nitrogen [Mass/Vol] 11 mg/dL Normal 7-25 [facility] Comment on above: Performed By: #### C EA #### [address] Urinalysison 02-11-2025 Bilirubin,Urine Negative Normal Negative [facility] Comment on above: Order Comment: Name Collection Type:: Voided Performed By: #### U A #### [address] Glucose Ql (U) Normal Normal Normal [facility] Comment on above: Order Comment: Name Collection Type:: Voided Performed By: #### U A #### [address] Nitrite,Urine Negative Normal Negative [facility] Comment on above: Order Comment: Name Collection Type:: Voided Performed By: #### U A #### [address] Occult Blood,Urine Negative Normal Negative [facility] Comment on above: Order Comment: Name Collection Type:: Voided Result Comment: PERF ORMED BY: [place] [address] PATHOLOGIST MANAGING PRINCIPAL OBDULIO SEAMAN M.D. Performed By: #### U A #### [address] Protein,Urine Negative Normal Negative [facility] Comment on above: Order Comment: Name Collection Type:: Voided Performed By: #### U A #### [address] Specificy [place],Urine 1.038 High 1.00 1-1.03 0 [facility] Comment on above: Order Comment: Name Collection Type:: Voided Performed By: #### U A #### [address] Urobilinogen,Urine Normal Normal Normal [facility] Comment on above: Order Comment: Name Collection Type:: Voided Performed By: #### U A #### [address] Urobilinogen Test strip (U) [Mass/Vol]Ordered By: Isabella Brown on 02-11-2025 Urobilinogen (U) [Mass/Vol] Normal mg/dL Normal [facility] X-ray reportOrdered By: Neyda Salazar on 02-11-2025 Study report [facility] [place] [address] XRay Report Signed Patient: Bhupendra Rubi MR#: [id number] : 1950 Acct:[id number] Age/Sex: 74 / F ADM Date: 5 Loc: ER Room: Type: PRE ER Attending Dr: Copies to: Isabella Brown MD~ Ordering Provider: Isabella Brown MD Date of Service: 02/11/25 XR/XR chest 1V portable: Chest Pain XR chest 1V portable 02/11/2025 1:23 PM SIGNS AND SYMPTOMS: Generalized abdominal pain, nausea and vomiting, possible seizure, syncopal episode PROTOCOL: Frontal radiograph the chest COMPARISON: 12/27/2023 and 01/16/2025 FINDINGS: The trachea is midline. There is cardiomegaly. Similar nodular opacity is noted in the lateral aspect of the mid chest on the left. There is perihilar vascular prominence, interstitial prominence, and hazy airspace opacity which may indicate volume overload/heart failure. The bony thorax is intact. Postoperative changes are noted in the right shoulder. XR/XR chest 1V portable IMPRESSION: Findings suggest congestive heart failure. Similar nodular opacity is noted in the lateral aspect of left mid chest. Impression dictated by: Neyda Salazar M.D. 02/11/2025 1:38 PM Dictation Location: [place] [address] Transcribed By: [facility] 02/11/251337 Dictated By: Neyda Salazar II, MD 02/11/251334 Signed By: 02/11/258 [facility] Work Phone: XR chest 1V portableon 02-11 XR chest 1V portable [facility] [place] [address] [place] [address] XRay Report Signed Patient: Bhupendra Rubi MR#: [id number] : 1950 Acct:[id number] Age/Sex: 74 / F ADM Date: 02/11/25 Loc: ER Room: Type: PRE ER Attending Dr: Copies to: Isabella Brown MD Ordering Provider: Isabella Brown MD Date of Service: 02/11/25 XR/XR chest 1V portable: Chest Pain XR chest 1V portable 02/11/2025 1:23 PM SIGNS AND SYMPTOMS: Generalized abdominal pain, nausea and vomiting, possible seizure, syncopal episode PROTOCOL: Frontal radiograph the chest COMPARISON: 12/27/2023 and 01/16/2025 FINDINGS: The trachea is midline. There is cardiomegaly. Similar nodular opacity is noted in the lateral aspect of the mid chest on the left. There is perihilar vascular prominence, interstitial prominence, and hazy airspace opacity which may indicate volume overload/heart failure. The bony thorax is intact. Postoperative changes are noted in the right shoulder. XR/XR chest 1V portable IMPRESSION: Findings suggest congestive heart failure. Similar nodular opacity is noted in the lateral aspect of left mid chest. Impression dictated by: Neyda Salazar M.D. 02/11/2025 1:38 PM Dictation Location: [place] [address] Transcribed By: JOSE MIGUEL 02/11/25 1338 Dictated By: Neyda Salazar II, MD 02/11/251334 Signed By: 02/11/25 133 Normal [facility] pH of Urine by Test stripOrd ered By: Isabella Brown on 02-11-2025 pH (U) 7.5 [pH] Normal 5.0-9.0 [facility] Comment on above: Order Comment: Name Collection Type:: Voided Performed By: #### U A #### [address] Main [place] Intraoperative Recor don 02-09-2025 Main OR Intraoperative Record Main [place] Intraoperative Record IntraOp Document Type FT Summary Primary Physician: Arden De Leon MD Finalized Date/Time: 02/09/25 10:55:42 Pt. Name: BHUPENDRA RUBI/Sex: 1950 Female Med Rec #: [id number] Physician: Arden De Leon MD Financial #: [id number] Pt. Type: O Room/Bed: / Admit/Disch: 02/08/25 09:14:26 - 02/08/25 23:59:59 Institution: Case Times FT Entry 1 Patient Times In Room 02/08/25 10:44:00 Out Room 02/08/25 10:55:00 Procedure Times Start 02/08/25 10:48:00 Stop 02/08/25 10:52:00 Anesthesia Times Start 02/08/25 10:44:00 Stop 02/08/25 10:55:00 Last Modified By: Soledad Barclay RN 02/08/25 10:55:58 Case Attendance FT Entry 1 Entry 2 Entry 3 Case Attendee Mary Erickson CRNA, RN, Rosita Stubbs Role Performed INTERIOR WIRER Knuckler - Primary Scrub - Primary Time In 02/08/25 10:44:00 02/08/25 10:44:00 02/08/25 10:44:00 Time Out 02/08/25 10:55:00 02/08/25 10:55:00 02/08/25 10:55:00 Procedure EGD(.) EGD(.) EGD(.) Comments Dr. Robert supervising procedure. Last Modified By: Kianna Garcia CST, RN, Soledad Phelps RN 02/09/25 10:53:01 02/08/25 10:56:00 02/08/25 10:56:00 Entry 4 Case Attendee Moises FARFAN, Arden Fisher Role Performed Surgeon - Primary Time In 02/08/25 10:44:00 Time Out 02/08/25 10:55:00 Procedure EGD(.) Comments Last Modified By: Soledad Barclay RN 02/08/25 10:56:00 Perioperative Protocols FT Pre-Care Text: Implements protective measures prior to operative or invasive procedure, confirms identity before the operative or invasive procedure, verifies operative procedure, surgical site, and laterality Entry 1 Procedure(s) EGD(.) Patient Identity Birthday, ID Band Verified (select at Check, Patient least 2): Participation Consents / H and P Anesthesia Consent, Operative Site N/A Verified H&P, Surgery/Procedure Marking Verified Consent Surgical Site No Laterality Verified n/a Verified Procedure Verified Yes Correct Patient Yes Position Verified Availability Equipment, Medication Prep Dry n/a Verified (If Applicable) PreOp Antibiotic No Time Out Mary Erickson CRNA, Given Participants Ning LOVETT, Elvis Moss Kirstyn K, Moises FARFAN, Arden Fisher Time Out Complete 02/08/25 10:46:00 Outcomes Met? Yes Last Modified By: Soledad Barclay RN 02/08/25 10:46:33 Post-Care Text: The patient is free from signs and symptoms of injury caused by extraneous objects Allergy Information FT Pre-Care Text: Verifies allergies Entry 1 Allergies Reviewed? Yes Allergies Reviewed Self/Patient With Outcomes Met? Yes Last Modified By: Soledad Barclay RN 02/08/25 10:46:41 Post-Care Text: The patient received appropriate medication(s) safely administered during the perioperative period Surgical Procedures FT Entry 1 Procedure Description Procedure EGD Modifiers . Surgeon Description EGD with gastric polypectomy, gastric biopsy and duodenal biopsy. Primary Procedure Yes Primary Surgeon Arden De Leon MD Start 02/08/25 10:48:00 Stop 02/08/25 10:52:00 Anesthesia Type General Surgical Service Gastroenterology Wound Class 2 - Clean-Contaminated Last Modified By: Soledad Barclay RN 02/08/25 10:52:54 General Case Data FT Pre-Care Text: Classifies surgical wound, implements aseptic technique, initiates traffic control Entry 1 Case Information OR ENDO 1 FT Case Level Level 2 Wound Class 2 - Clean-Contaminated Specialty Gastroenterology ASA Class 3 Preop Diagnosis GERD, EPIGASTRIC PAIN, Postop Same As Preop No BLOATING, ACID REFLUX, ELEVATED ALKALINE PHOSPHATASE LEVELS Postop Diagnosis Gastric polyp, Outcomes Met? Yes gastropathy, duodenitis and hiatal hernia. Last Modified By: Soledad Barclay RN 02/08/25 10:53:11 Post-Care Text: The patient is free from signs and symptoms of infection Skin Assessment (Pre Procedure) FT Pre-Care Text: Implements protective measures to prevent skin/ tissue injury due to thermal or mechanical sources Evaluates for signs and symptoms of physical injury to skin and tissue Entry 1 Skin Integrity Intact, [place], Warm, & Skin Abnormality No Dry Outcomes Met? Yes Last Modified By: Soledad Barclay RN 02/08/25 10:47:02 Post-Care Text: The patient is free from signs and symptoms of injury caused by extraneous objects Patient Positioning FT Pre-Care Text: Identifies physical alterations that require additional precautions for procedure-specific positioning, verifies presence of prosthetics or corrective devices, positions the patient, evaluates the patient for signs and symptoms of injury as a result of positioning Entry 1 Procedure EGD(.) Body Position Lateral, right side up Feet Uncrossed? Yes Left Arm Position Resting at Side Right Arm Position Resting at Side Left Leg Position Extended Right Leg Position Extended Positioning Device Safety Strap, Pillow (more content not included)... Normal [facility] Discharge Instructionson Discharge Instructions Discharge Instruc tions BHUPENDRA RUBI :1950 Visit Date:02/08/2025 Inpatient Discharge Instructions Your Care Team Admitting Physician - Arden De Leon MD Referring Physician - Arden De Leon MD Reason for Your Visit GERD, EPIGASTRIC PAIN, BLOATING, ACID REFLUX, ELEVATED ALKALINE PHOSPHATASE LEVELS Your Diagnosis Duodenitis Gastric polyp Gastropathy Hiatal hernia Tests Performed Pathology Tissue Exam -- Results Pending -- Please visit your patient portal for your results or contact your primary care physician. This Is Your Medications List albuterol (Albuterol (Eqv-ProAir HFA) 90 mcg/inh inhalation aerosol) apixaban (Eliquis 5 mg oral tablet) atorvastatin (atorvastatin 80 mg Tab) esomeprazole (esomeprazole 40 mg Cap-EC) gabapentin (gabapentin 300 mg Cap) hyoscyamine (Levsin 0.125 mg SL Tab) lacosamide (lacosamide 100 mg oral tablet) lamotrigine (lamotrigine 150 mg Tab) lorazepam (LORazepam 0.5 mg Tab) losartan (losartan 25 mg Tab) plecanatide (Trulance 3 mg oral tablet) polyethylene glycol 3350 (MiraLax) trazodone (traZODONE 100 mg Tab) Procedure History Introduction of tension free vaginal tape (1989), Cholecystectomy, Colonoscopy, Hysterectomy, Rotator cuff. Discharge Vitals Temperature (Temporal Artery) 36.7 ???C Heart Rate (Monitored) 72 Respiratory Rate 21 Blood Pressure 110/59 Height 159 cm Weight 63.6 kg BMI 25.16 What to do next Instructions From Your Doctor No qualifying data available. New Follow Up Appointments after Discharge Follow Up with Moises FARFAN, Arden Fisher, [facility] When: Comments: call office regarding follow up Where: [address], [address] [place] [address] [phone] Medications What How Much When Why Instructions Next Dose Unchanged albuterol (Albuterol (Eqv-ProAir HFA) 90 mcg/ inh inhalation aerosol) 8 gm, INHALE 2 PUFFS BY MOUTH EVERY 4 HOURS NEEDED for SHORTNESS OF BREATH Unchanged apixaban (Eliquis 5 mg oral tablet) 1 Tablets Unchanged atorvastatin (atorvastatin 80 mg Tab) By Mouth Every day Unchanged esomeprazole (esomeprazole 40 mg Cap-EC) 1 Capsules By Mouth Every day Unchanged gabapentin (gabapentin 300 mg Cap) By Mouth 3 times a day Unchanged hyoscyamine (Levsin 0.125 mg SL Tab) 2 Tablets By Mouth 4 times a day as needed for for spasm GERD (gastroesophageal reflux disease) Epigastric pain Elevated alkaline phosphatase level Chronic constipation Bloating Straining during bowel movements Acid reflux Stress-related physiological response affecting medical condition History of colon polyps Unchanged lacosamide (lacosamide 100 mg oral tablet) 1 Tablets Unchanged lamotrigine (lamotrigine 150 mg Tab) 1 Tablets Unchanged lorazepam (LORazepam 0.5 mg Tab) 1 Tablets By Mouth Unchanged losartan (losartan 25 mg Tab) 1 Tablets Unchanged plecanatide (Trulance 3 mg oral tablet) 1 Tablets By Mouth Every day GERD (gastroesophageal reflux disease) Epigastric pain Elevated alkaline phosphatase level Chronic constipation Bloating Straining during bowel movements Acid reflux Stress-related physiological response affecting medical condition History of colon polyps Unchanged polyethylene glycol 3350 (MiraLax) Unchanged trazodone (traZODONE 100 mg Tab) 1 Tablets By Mouth Test Results No qualifying data available. Allergies No Known Allergies No Known Medication Allergies Problems Ongoing - Any problem that you are currently receiving treatment for. Acid reflux Bilateral flank pain Bloating Chronic constipation Dysuria Heart disease History of colon polyps History of prolapse of bladder Hyperlipidemia Hypertension Infrequent urination Mixed incontinence Personal history of transient ischemic attack Straining during bowel movements Stress-related physiological response affecting medical condition Upper abdominal pain Education Materials Upper Endoscopy, Adult, Care After After the procedure, it is common to have a sore throat. It is also common to have: ??? Mild stomach pain or discomfort. ??? Bloating. ??? Nausea. Follow these instructions at home: The instructions below may help you care for yourself at home. Your health care provider may give you more instructions. If you have questions, ask your health care provider. ??? If you were given a sedative during the procedure, it can affect you for several hours. Do not drive or operate machinery until your health care provider says that it is safe. ??? If you will be going home right after the procedure, plan to have a responsible adult: ? Take you home from the hospital or clinic. You will not be allowed to drive. ? Care for you for the time you are told. ??? Follow instructions from your health care provider about what you may eat and drink. ??? Return to your normal activities as told by your health care provider. Ask your heal (more content not included)... Normal [facility] Comment on above: Result Comment: Elec tronically Signed By: Maria Teresa LOVETT, Zoila\.br\Date and Time Signed: 02/08/25 11:08 EDT H&P Updateon 02-08-2025 H&P Update H&P Update Patient: BHUPENDRA RUBI Age: 74 years Sex: Female : 1950 Associated Diagnoses: None Author: Moises FARFAN, Arden Fisher Preoperative Information Chief compliant/Indication for procedure: Epigastric pain Chief Complaint as above Review of Systems All systems reviewed, negative except as mentioned above Health Status Allergies: Allergic Reactions (Selected) No Known Allergies No Known Medication Allergies Current medications: (Selected) Inpatient Medications Ordered Lactated Ringers IV Brea 1000 mL 1,000 mL: 1,000 mL, IV, 100 mL/hr, Routine, Start date 02/08/25 9:37:00 EDT, 10 hour(s), Total volume (mL): 1,000, 63.6 kg, 1.68, m2 Sodium Chloride 0.9% IV Brea 1000 mL 1,000 mL: 1,000 mL, IV, 20 mL/hr, Routine, Start date 02/08/25 7:33:00 EDT, 50 hour(s), Total volume (mL): 1,000, 63.6 kg, 1.68, m2 Prescriptions Prescribed Levsin 0.125 mg SL Tab: 0.25 mg = 2 tab(s), Oral, QID, PRN for spasm, # 80 tab(s), Refills(s) 0, Pharmacy: [facility], 159, cm, 01/30/25 12:14:00 EDT, Height/Length Dosing, 63.6, kg, 01/30/25 12:14:00 EDT, Weight Dosing Trulance 3 mg oral tablet: 3 mg = 1 tab(s), Oral, Daily, # 30 tab(s), Refills(s) 6, Pharmacy: [facility], 159, cm, 01/30/25 12:14:00 EDT, Height/Length Dosing, 63.6, kg, 01/30/25 12:14:00 EDT, Weight Dosing esomeprazole 40 mg Cap-EC: 40 mg = 1 cap(s), Oral, Daily, # 90 cap(s), Refills(s) 0, Pharmacy: [facility], 159, cm, 12/24/22 10:00:00 EDT, Height/Length Dosing, 67.6, kg, 12/24/22 10:00:00 EDT, Weight Dosing Documented Medications Documented Albuterol (Eqv-ProAir HFA) 90 mcg/inh inhalation aerosol: Refill(s) 0, 8 gm, INHALE 2 PUFFS BY MOUTH EVERY 4 HOURS NEEDED for SHORTNESS OF BREATH Eliquis 5 mg oral tablet: 5 mg = 1 tab(s), Refills(s) 0, Blood Thinner LORazepam 0.5 mg Tab: 0.5 mg = 1 tab(s), Oral, Refills(s) 0, Anxiety MiraLax: Refill(s) 0, Constipation atorvastatin 80 mg Tab: mg tab(s), Oral, Daily, Refills(s) 0, High cholesterol gabapentin 300 mg Cap: mg cap(s), Oral, TID, Refills(s) 0, Neuropathy lacosamide 100 mg oral tablet: 100 mg = 1 tab(s), Refills(s) 0, Seizure lamotrigine 150 mg Tab: 150 mg = 1 tab(s), Refills(s) 0 losartan 25 mg Tab: 25 mg = 1 tab(s), Refills(s) 0, High blood pressure traZODONE 100 mg Tab: 100 mg = 1 tab(s), Oral, Refills(s) 0 Problem list: All Problems Acid reflux / SNOMED CT 150609473 / Confirmed Bilateral flank pain / SNOMED CT 848158980 / Confirmed Bloating / SNOMED CT 408102186 / Confirmed Chronic constipation / SNOMED CT 602984252 / Confirmed Dysuria / SNOMED CT 10657177 / Confirmed Heart disease / SNOMED CT 77369821 / Confirmed History of colon polyps / SNOMED CT 5107675877 / Confirmed History of prolapse of bladder / SNOMED CT 228207662 / Confirmed Hyperlipidemia / SNOMED CT 68204278 / Confirmed Hypertension / SNOMED CT 6469624487 / Confirmed Infrequent urination / SNOMED CT 669854260 / Confirmed Mixed incontinence / SNOMED CT 18188919 / Confirmed Personal history of transient ischemic attack / SNOMED CT 0545487457 / Confirmed Straining during bowel movements / SNOMED CT 00934485 / Confirmed Stress-related physiological response affecting medical condition / SNOMED CT 53573234 / Confirmed Tobacco use / SNOMED CT 6027232695 / Confirmed Upper abdominal pain / SNOMED CT 186696875 / Confirmed, Active Problems (17) Acid reflux Bilateral flank pain Bloating Chronic constipation Dysuria Heart disease History of colon polyps History of prolapse of bladder Hyperlipidemia Hypertension Infrequent urination Mixed incontinence Personal history of transient ischemic attack Straining during bowel movements Stress-related physiological response affecting medical condition Tobacco use Upper abdominal pain Histories Past Medical History: No active or resolved past medical history items have been selected or recorded. Family History: Cancer Mother Procedure history: Introduction of tension free vaginal tape (683559696) in 1989 at 39 Years. Hysterectomy (314866124). Cholecystectomy (41812277). Rotator cuff (10502484). Colonoscopy (033785379). Physical Examination Vital Signs (last 24 hrs) Last Charted Temp Temporal 36.7 DegC (FEB 08) Heart Rate Monitored 93 bpm (FEB 08) Resp Rate 18 br/min (FEB 08) SBP 128 mmHg (FEB 08) DBP 78 mmHg (FEB 08) Weight 63.6 kg (FEB 08) BMI 25.16 (FEB 08) General: in Nad Abdomen: Soft, NTND Impression and Plan Diagnosis: Epigastric pain -EGD Normal [facility] Comment on above: Result Comment: Elec tronically Signed By: Moises FARFAN, Arden Fisher\.br\Date and Time Signed: 02/08/25 10:28 EDT Main OR PACU I Recordon 01-12 Main OR PACU I Record Main OR PACU I Rec ord PACU Phase I Document Type FT Summary Primary Physician: Arden De Leon MD Finalized Date/Time: 02/08/25 12:27:47 Pt. Name: BHUPENDRA RUBI Mila/Sex: 1950 Female Med Rec #: [id number] Physician: Arden De Leon MD Financial #: [id number] Pt. Type: O Room/Bed: / Admit/Disch: 02/08/25 09:14:26 - Institution: Case Times PACU I FT Pre-Care Text: Identifies barriers to communication and implements measures to provide psychological support Develops individualized plan of care, and ensures continuity of care Maintains patient's dignity and privacy, and maintains patient confidentiality Identifies and reports philosophical, cultural, and spiritual beliefs and values Identifies individual values and wishes concerning care Implements aseptic technique, and administers prescribed antibiotic therapy and immunizing agents as ordered Evaluates postoperative tissue perfusion Implements thermoregulation measures, and monitors body temperature Evaluates postoperative respiratory status Evaluates postoperative cardiac status Evaluates postoperative neurological status Assesses pain control, collaborated in initiating patient-controlled analgesia and implements alternative methods of pain control Verifies allergies, administers prescribed medications and solutions, evaluates response to medications Entry 1 In PACU I 02/08/25 10:57:00 Discharge from PACU 02/08/25 11:33:00 I Outcomes Met? Yes Last Modified By: Zoila Morel RN 02/08/25 12:26:01 Post-Care Text: The patient demonstrates knowledge of the expected response to the operative or invasive procedure The patient's care is consistent with the individualized perioperative plan of care The patient's right to privacy is maintained The patient's value system, lifestyle, ethnicity, and culture are considered, respected, and incorporated into the perioperative plan of care The patient participates in decisions affecting his or her perioperative plan of care The patient is free from signs and symptoms of infection The patient has wound/tissue perfusion consistent with or improved from baseline levels established preoperatively The patient is at or returning to normothermia at the conclusion of the immediate postoperative period The patient's respiratory function is consistent with or improved from baseline levels established preoperatively The patient's cardiovascular status is consistent with or improved from baseline levels established preoperatively The patient's cardiovascular status is consistent with or improved from baseline levels established preoperatively The patient demonstrates and/or reports adequate pain control throughout the perioperative period The patient received appropriate medication(s), safely administered during the perioperative period Acuity Level PACU I FT Entry 1 Start Time 02/08/25 10:57:00 Stop Time 02/08/25 11:33:00 Acuity Level Acuity Level I Last Modified By: Zoila Morel RN 02/08/25 12:27:43 Finalized By: Zoila Morel RN Document Signatures Signed By: Zoila Morel RN 02/08/25 12:27 Normal [facility] Main OR Preoperative Recordo n 02-08-2025 Main OR Preoperative Record Main OR Preoperative Record Holding Area Document Type FT Summary Primary Physician: Arden De Leon MD Finalized Date/Time: 02/08/25 09:34:56 Pt. Name: BHUPENDRA RUBI/Sex: 1950 Female Med Rec #: [id number] Physician: Arden De Leon MD Financial #: [id number] Pt. Type: O Room/Bed: / Admit/Disch: 02/08/25 09:14:26 - Institution: Case Times Holding FT Pre-Care Text: Verifies consent for planned procedure, identifies individual values and wishes concerning care, includes family members in perioperative teaching Secures patient's records' belongings, and valuables, maintains patient's dignity and privacy, and maintains patient confidentiality Entry 1 In Holding 02/08/25 09:30:00 Outcomes Met? Yes Last Modified By: Umang Borrego RN 02/08/25 09:33:54 Post-Care Text: The patient participates in decisions affecting his or her perioperative plan of care The patient's right to privacy is maintained Surgery Checklist FT Entry 1 Patient Birthday, ID Band Procedure History and Physical, Identification: Check, Patient Verification: Surgical Consent, With Participation Patient NPO after Midnight: Yes Results Reviewed n/a Comments: Personal Items: Dentures Personal Items upper/lower dentures Comment: Limitations: none Complaints of Pain: No Pain Comment: denies pain at this time Operative Site n/a Marking: Marked By: n/a Location: n/a Availability Equipment Verified: Does Patient Smoke Yes If Yes to Smoking. 4-5 cigarettes per day Cigars or Cigarettes. How much per day? Patient states Yes Comment - Adult boyfriend- raoul postop adult Supervision supervision available Case Cancelled in No Holding Area see comments below for reason Last Modified By: Umang Borrego RN 02/08/25 09:34:55 Finalized By: Umang Borrego RN Document Signatures Signed By: Umang Borrego RN 02/08/25 09:34 Normal [facility] Operative Reporton Operative Report Operative Report Patient: BHUPENDRA RUBI Age: 74 years Sex: Female : 1950 Associated Diagnoses: None Author: Arden De Leon MD Pre-Procedure Procedure Date 02/08/2025 10:53:00 . Procedure Type: Esophagogastroduodenoscopy with biopsy, removal of polyp/ tumor by snare technique. Procedure provider Performed by Arden De Leon MD. Current history and physical Documented on chart. Informed Consent After discussing the rationale, risks and benefits, and alternatives to this procedure, the patient provided signed consent for the procedure. Pre-procedure diagnosis: Epigastric pain. Medications (Selected) Inpatient Medications Ordered Lactated Ringers IV Brea 1000 mL 1,000 mL: 1,000 mL, IV, 100 mL/hr, Routine, Start date 02/08/25 9:37:00 EDT, 10 hour(s), Total volume (mL): 1,000, 63.6 kg, 1.68, m2 Sodium Chloride 0.9% IV Brea 1000 mL 1,000 mL: 1,000 mL, IV, 20 mL/hr, Routine, Start date 02/08/25 7:33:00 EDT, 50 hour(s), Total volume (mL): 1,000, 63.6 kg, 1.68, m2 Prescriptions Prescribed Levsin 0.125 mg SL Tab: 0.25 mg = 2 tab(s), Oral, QID, PRN for spasm, # 80 tab(s), Refills(s) 0, Pharmacy: [facility], 159, cm, 01/30/25 12:14:00 EDT, Height/Length Dosing, 63.6, kg, 01/30/25 12:14:00 EDT, Weight Dosing Trulance 3 mg oral tablet: 3 mg = 1 tab(s), Oral, Daily, # 30 tab(s), Refills(s) 6, Pharmacy: [facility], 159, cm, 01/30/25 12:14:00 EDT, Height/Length Dosing, 63.6, kg, 01/30/25 12:14:00 EDT, Weight Dosing esomeprazole 40 mg Cap-EC: 40 mg = 1 cap(s), Oral, Daily, # 90 cap(s), Refills(s) 0, Pharmacy: [facility], 159, cm, 12/24/22 10:00:00 EDT, Height/Length Dosing, 67.6, kg, 12/24/22 10:00:00 EDT, Weight Dosing Documented Medications Documented Albuterol (Eqv-ProAir HFA) 90 mcg/inh inhalation aerosol: Refill(s) 0, 8 gm, INHALE 2 PUFFS BY MOUTH EVERY 4 HOURS NEEDED for SHORTNESS OF BREATH Eliquis 5 mg oral tablet: 5 mg = 1 tab(s), Refills(s) 0, Blood Thinner LORazepam 0.5 mg Tab: 0.5 mg = 1 tab(s), Oral, Refills(s) 0, Anxiety MiraLax: Refill(s) 0, Constipation atorvastatin 80 mg Tab: mg tab(s), Oral, Daily, Refills(s) 0, High cholesterol gabapentin 300 mg Cap: mg cap(s), Oral, TID, Refills(s) 0, Neuropathy lacosamide 100 mg oral tablet: 100 mg = 1 tab(s), Refills(s) 0, Seizure lamotrigine 150 mg Tab: 150 mg = 1 tab(s), Refills(s) 0 losartan 25 mg Tab: 25 mg = 1 tab(s), Refills(s) 0, High blood pressure traZODONE 100 mg Tab: 100 mg = 1 tab(s), Oral, Refills(s) 0 Anticoagulant/antiplatelet None. ASA Classification: Class II. . Monitoring: See anesthesia record. . Procedure The procedure was performed in the hospital. See anesthesia record for sedation given during procedure. The patient was positioned starting in the left lateral decubitus position and with safety measures. Endoscope type used was an adult-size, introduced orally, advanced to the 2nd portion of the duodenum. No difficulty was encountered during the procedure. Views were excellent. The patient tolerated the procedure well. Findings 1. Normal esophagus. Z-line at 42 cm. Hiatal hernia measuring 3 cm 2. Erythema in the antrum, mild patchy. Otherwise normal stomach. Biopsies of the stomach were taken to rule out H. pylori. Sessile polyp measuring 5 mm in the fundus status post resection using cold snare 3. Patchy erythema in the duodenal bulb status post biopsies. Images Procedure images: [email or web address]_hd_video_ [id number]__[id number].jpg Rec_hd_video_ [id number]__[id number].jpg Rec1_hd_video_ [id number]__[id number].jpg Rec1_hd_video_ [id number].jpg Rec1_hd_video_ [id number]_02_[id number].jpg Rec1_hd_video_ [id number]_[id number].jpg Rec1_hd_video_ 0__[id number].jpg Rec1_hd_video_ 0_[id number].jpg Rec1_hd_video_ [id number].jpg . Post-Procedure Complications: none. Estimated blood loss: minimal. Specimens: sent to pathology. Devices/ implants: none left in place. Impression and Plan hiatal hernia Fundic polyp status post resection Gastropathy Duodenitis Recommendations: -Resume previous diet -Resume home medications -Await pathology results, follow in GI clinic in 1-2 after discharge Normal [facility] Comment on above: Result Comment: Elec tronically Signed By: Moises FARFAN, Arden Caraballo.holger\Date and Time Signed: 02/08/25 10:54 EDT Other Comment: [employer] Attachment - attachment storage system not supported [id number] Can be viewed in source systemMissing Attachment - attachment storage system not supported [id number] Can be viewed in source systemMissing Attachment - attachment storage system not supported [id number] Can be viewed in source systemMissing Attachment - attachment storage system not supported [id number] Can be viewed in source systemMissing Attachment - attachment storage system not supported [id number] Can be viewed in source systemMissing Attachment - attachment storage system not supported [id number] Can be viewed in source systemMissing Attachment - attachment storage system not supported [id number] Can be viewed in source systemMissing Attachment - attachment storage system not supported [id number] Can be viewed in source systemMissing Attachment - attachment storage system not supported [id number] Can be viewed in source system Gastroenterology Office/Clin ic Noteon 01-30-2025 Gastroenterology Office/Clinic Note Gastroenterology Office/Clinic Note Chief Complaint ref by Jenise for epigastric pain, GERD and constipation HPI Staff EST, 74 year old female who presents today for a sick call for complaints of epigastric pain and GERD. Blood Thinners- Eliquis Denies GLP-1 Agonists GERD: tried pantoprazole and Nexium Abdominal pain: When did you first have this pain: 1-2 months Quality (sharp, dull): sharp, aching pain Constant or comes or go: depending on bowel movement, does take miralax. location and radiation: generalized abd pain gas CT abd/pelv 12/26/24 IMPRESSION: MINOR BIBASILAR ATELECTASIS OR SCARRING. SMALL RENAL CYSTS. NO BOWEL OR URINARY TRACT OBSTRUCTION. SIMILAR ABDOMINAL AORTIC ANEURYSM. NO ACUTE FINDINGS. Colonoscopy @ [facility] 06/22/24 Impression: Unremarkable examination of the site of previous polypectomy in the ascending colon that was recognized by the adjacent tattoo neyda. Multiple biopsies were obtained. 2 small ascending [...] with moderate resistance. Small external hemorrhoids Recommendations: If the biopsies of the site of previous polypectomy in the ascending colon were unremarkable, consider follow-up colonoscopy in 6 months. LAB AP REPORT FINAL DIAGNOSIS NARRATIVE Result Comments: A. Colon, ascending polyp across tattoo site, biopsy: - Tubular adenoma B. Colon, ascending polyp adjacent to tattoo site, biopsy: - Tubular adenoma C. Colon, ascending polypectomy site, biopsy: - Benign colonic mucosa - No evidence of dysplasia D. Colon, hepatic flexure polyp, biopsy: - Hyperplastic polyp Last office visit w/ Brigette 12/24/22 Assessment/Plan 1. Upper abdominal pain (R10.10: Upper abdominal pain, unspecified) Over the last 2 years, has been having upper abdominal pain described as achy and is occurring daily. Abdominal pain occurs without regard to food. 2. Acid reflux (K21.9: Gastro-esophageal reflux disease without esophagitis) Is having acid reflux that is uncontrolled with nexium 20mg OTC. Acid reflux occurring daily despite nexium 20mg daily. 3. History of colon polyps (Z86.010: Personal history of colonic polyps) Reportedly had previous colonoscopy over 10 years ago in [place] that was reportedly showed polyps- no record of previous colonoscopy available to review during today's encounter. Labs 12/22/24 Calcium 9.4 Bilirubin Total 0.4 Aspartate Amino Transferase 10 Low Alanine Aminotransferase 17 Alkaline Phosphatase 119 High Total Protein 7.3 Albumin Level 3.3 Low Globulin 4.0 Albumin Globulin Ratio 0.8 White Blood Count 10.7 Red Blood Count 4.83 Hemoglobin 13.6 Hematocrit 42.7 Mean Corpuscular Volume 88.4 Mean Corpuscular Hemoglobin 28.2 Mean Corpuscular HGB Conc 31.9 Red Cell Distribution Width 15.9 High Platelet Count 375 History of Present Illness I have reviewed HPI staff note, most recent labs and imaging, I agree with the above documentation with the following additions/exceptions : PT with pain in the low abd x years has been coming and going constant in the past 2 months pt on Linzess and miralax for BMs Pain does not go away \ pain does not go away with BMs bowel moves every other day with linzess Acid reflux - well controlled with nexium with some breakthrough symptoms on once daily gassy all the times lots of straining incomplete evacuation with linzess has to stay at home all the times lost 8 pounds pt gets full easily Review of Systems PHQ Score Initial Depression Screen Score: 0 SCORE All systems reviewed, negative except as mentioned above Physical Exam Vitals & Measurements HR: 74(Peripheral) RR: 16 BP: 140/78 HT: 63 in HT: 159 cm WT: 140.214 lb WT: 63.6 kg BMI: 25.16 General: alert, no acute distress HEENT: atraumatic normocephalic Cardiovascular: regular rate and rhythm, normal peripheral perfusion Respiratory: Lungs CTA, respirations non labored Extremities: no deformity, no trauma Abdomen: Benign, soft, tender nondistended Assessment/Plan 1. GERD (gastroesophageal reflux disease), (K21.9: Gastro-esophageal reflux disease without esophagitis)Acid reflux Ordered: hyoscyamine, 0.25 mg = 2 tab(s), Oral, QID, PRN for spasm, # 80 tab(s), Refills(s) 0, Pharmacy: [facility], 159, cm, 01/30/25 12:14:00 EDT, Height/Length Dosing, 63.6, kg, 01/30/25 12:14:00 EDT, Weight Dosing plecanatide, 3 mg = 1 tab(s), Oral, Daily, # 30 tab(s), Refills(s) 6, Pharmacy: [facility], 159, cm, 01/30/25 12:14:00 EDT, Height/Length Dosing, 63.6, kg (more content not included)... Normal [facility] Comment on above: Result Comment: Elec tronically Signed By: Moises FARFAN, Arden Fisher\.br\Date and Time Signed: 01/30/25 12:[address] chest evangelina braxton 01-16-2025 CT chest wo luis manuel [facility] Main [place] [id number] CT Scan Report Signed Patient: Bhupendra Rubi MR#: [id number] : 1950 Acct:[id number] Age/Sex: 74 / F ADM Date: 01/16/25 Loc: XT Room: Type: [facility] Attending Dr: Judit Martini MD Copies to: MD Hipolito Potter APRN Norleena Poynter, MD Ordering Provider: Hipolito Shah APRN Date of Service: 01/16/25 CT/CT [...] adenopathy. No pneumoperitoneum. No mediastinal hematoma. PULMONARY MADDI: No hilar mass or adenopathy is seen. [...] Berger M.D. 01/16/2025 2:45 PM Dictation Location: [place] [address] Transcribed By: [facility] 01/16/25 1445 Dictated By: Adam Berger DO 01/16/25 1439 Signed By: 01/16/25 1445 Normal [facility] aorta 01-04-2025 aorta [facility] [address] [place] [address] Ultrasound Report Signed Patient: Bhupendra Rubi MR#: [id number] : 1950 Acct:[id number] Age/Sex: 74 / F ADM Date: 01/04/25 Loc: [facility] Room: Type: [facility] Attending Dr: Adam Keller MD Ordering Provider: Adam Keller MD Date of Service: 01/04/25 US/US aorta: I71.40 - Abdominal aortic aneurysm, without rupture, unsp... Copies to: Adam Keller MD ULTRASOUND OF THE ABDOMINAL AORTA: CLINICAL INFORMATION: Infrarenal abdominal aortic aneurysm COMPARISON : 3.4 cm infrarenal abdominal aortic aneurysm from prior CT scan dated April 2024. TECHNIQUE AND FINDINGS: Multiple ultrasonographic scans of the abdominal aorta were obtained and show: Following measurement were obtained: Proximal height: 2.46 cm width : 2.5 cm Mid height: 3.03 cm width : 2.0 cm Distal height: 3.35 cm width : 3.6 cm US/US aorta IMPRESSION: 3.6 cm, stable, infrarenal abdominal aortic aneurysm without, complicating features. Impression dictated by: Nigel Valladares MD,FACS,FSVS 01/04/2025 2:59 PM Dictation Location: [place] [address] Tech: Yakelin Paige Transcribed By: [facility] 01/04/251458 Dictated By: Nigel Valladares MD 01/04/251457 Signed By: 01/04/251458 [facility] CT [place] [address] CT Scan Report Signed Patient: BHUPENDRA RUBI MR#: [id number] : 1950 Acct:[id number] Age/Sex: 74 / F ADM Date: 12/29/24 Loc: CT Attending Dr: Wendy Burden NP Ordering Physician: eWndy Burden NP Date of Service: 12/29/24 Procedure(s): CT abdomen pelvis w con Accession Number(s): [id number] cc: Wendy Burden NP [place] [id number] Patient Name: BHUPENDRA RUBI MRN: [facility]:[id number] date: 1950 Sex: F Assigned Patient Location: CT Current Patient Location: CT Accession/Order Number: [id number] Exam Date: 12/29/2024 10:36 Report Date: 12/29/2024 [...] Brar M.D. 12/29/2024 11:00 AM Dictation Location: [place] [address] Electronically authenticated by: [id number] Y Date: 12/29/2024 11:00 Dictated By: Darshana Brar M.D. Signed By: 12/29/24 1103 DD/ 1100 TD/TT: Core Baker: [facility] Radiology, Radiologi MD yvette - 12/29/[address] [address] [address] Scan Report Signed Patient: BHUPENDRA RUBI MR#: [id number] : 1950 Acct:[id number] Age/Sex: 74 / F ADM Date: 12/29/24 Loc: CT Attending Dr: Wendy Burden NP Ordering Physician: Wendy Burden NP Date of Service: 12/29/24 Procedure(s): CT abdomen pelvis w con Accession Number(s): [id number] cc: Wendy Burden NP The [address] [address] Patient Name: BHUPENDRA RUBI MRN: [facility]:[id number] date: 1950 Sex: F Assigned Patient Location: CT Current Patient Location: CT Accession/Order Number: [id number] Exam Date: 12/29/2024 10:36 Report Date: 12/29/2024 [...] Brar M.D. 12/29/2024 11:00 AM Dictation Location: [place] [address] Electronically authenticated by: [id number] Y Date: 12/29/2024 11:00 Dictated By: Darshana Brar M.D. Signed By: 12/29/24 1103 DD/ 1100 TD/TT: Core Baker: [facility] Radiology Study observation (narrative) [facility] CT ABDOMEN PELVIS W CONOrder ed By: Radiologist Radiology on 12-29-2024 [facility] [place] Work Phone: Urine Cultureon 12-22-2024 Bacteria identified Cx Nom (U) 75,000 colonies/ml mixed bacterial skin contaminants 2 Days PERFORMED BY: [facility] [address] [place] [address] PATHOLOGIST MANAGING PRINCIPAL OBDULIO SEAMAN M.D. Normal [facility] Comment on above: Performed By: #### L AMOT #### [facility] , Urine cultureOrdered By: Isabel Burden on 12-22-2024 Bacteria identified Cx Nom (U) 2 Days [facility] 36on 12-15-2024 36 Message left for pat ient to call and schedule a 6 month follow up Colonoscopy with Dr. Florinda Richard. She is s/p Colonoscopy with EMR Normal [facility] Telephoneon 12-15-2024 Telephone [id number] Maximiliano Rubi 1950 F Date Provider Department Center 12/15/2024 MARTELL DALLAS [facility] ANITRA Family History Problem Relation Age of Onset Lung cancer Mother Other Sister Family Status - Relation Status Age at Mother Sister Normal [facility] ALL CBC WITH AUTO DIFFon BASOPHILS ABSOLUTE AUTO 0.1 [facility] Basophils/100 WBC (Bld) 0.7 % 0.2 - 2.0 % [facility] Eosinophils/100 WBC (Bld) 1.3 % 0.9 - 7.0 % [facility] Erythrocyte distribution width (RBC) [Ratio] 15.9 % High 11.0 - 15.0 % [facility] Hematocrit (Bld) [Volume fraction] 42.7 % 36.0 - 48.0 % [facility] Hemoglobin (Bld) [Mass/Vol] 13.6 g/dL 12.0 - 16.0 g/dL [facility] IMMATURE GRANULOCYTES ABS AUTO 0.03 [facility] Immature granulocytes/100 WBC (Bld) 0.3 % 0.0 - 0.5 % [facility] Interpretation and review of laboratory results Abnormal [facility] LYMPHOCYTES ABSOLUTE AUTO 2.8 [facility] Lymphocytes/100 WBC (Bld) 26 % 20.5 - 60.0 % [facility] MCH (RBC) [Entitic mass] 28.2 pg 26.7 - 34.0 pg [facility] MCHC (RBC) [Mass/Vol] 31.9 g/dL 29.9 - 35.2 g/dL [facility] MCV (RBC) [Entitic vol] 88.4 fL 81.0 - 99.0 fL [facility] MONOCYTES ABSOLUTE AUTO 1 High [address] [facility] Monocytes/100 WBC (Bld) 9.3 % 1.7 - 12.0 % [facility] NEUTROPHILS ABSOLUTE AUTO 6.7 High [facility] Neutrophils/100 WBC (Bld) 62.4 % 43.0 - 75.0 % [facility] Platelet mean volume (Bld) [Entitic vol] 9.8 fL 9.5 - 13.5 fL [facility] TBH EO # 0.1 [facility] TBH PLT [address] [facility] RBC 4.83 [facility] TB WBC 10.7 [facility] Urine Cultureon 10-04-2024 Bacteria identified Cx [facility] (U) ORGANISM: Klebsiella pneumoniae (O:KLEPNE) Depue Count >100,000 Aerobic BAILEE Charge (NMIC56) SUSCEPTIBILITY [...] <4 Tigecycline S <2 Tobramycin S <2 Trimethoprim/Sulfamethoxaz ole S <0.5 S = SUSCEPTIBLE I = [...] RESISTANT TO ALL B-LACTAM DRUGS. PERFORMED BY: [place] [address] PATHOLOGIST MANAGING PRINCIPAL DIANA MASSEY M.D. Normal [facility] Comment on above: Performed By: #### C UU #### [facility] [address] [place] [address] Urine cultureOrdered By: Amanda Cordero on 10-04-2024 Bacteria identified Cx Nom (U) Abnormal [facility] HISTOLOGY - TISSUE EXAMon LAB AP CASE REPORT Normal [facility] Comment on above: Result Comment: Surg ical Pathology Case: [id number] Authorizing Provider: Florinda Richard MD Collected: 06/21/2024 1421 [facility] Received: 06/21/2024 1505 [facility] Pathologist: Alexandrea Bonds MD Specimens: A) - Large Intestine, Right/Ascending Colon, polyp across to tatto site B) - Large Intestine, Right/Ascending Colon, polyp adjcent to tatto site C) - Large Intestine, Right/Ascending Colon, polypectomy site bx r/o adenoma D) - Large Intestine, Hepatic Flexure Performed By: #### L [id number] ####[facility] (BEAKER)[address] [place] [address] LAB AP CLINICAL INFORMATION Order Diagnoses Normal [facility] Comment on above: Result Comment: K63. 5 - Polyp of ascending colon, unspecified type [ICD-10-CM] K63.89 - Colonic mass [ICD-10-CM] Performed By: #### L [id number] ####[facility] (BE[facility]ER)[address] [place] [address] LAB AP GROSS DESCRIPTION Normal [facility] Comment on above: Result Comment: A. [...] Abdalla, student fellow Performed By: #### L [id number] ####[facility] ([facility] [place] [address] LAB AP MICROSCOPIC DESCRIPTION Microscopic examination performed. [facility] Comment on above: Performed By: #### L [id number] ####[facility] ([facility] [place] [address] LAB AP REPORT FINAL DIAGNOSIS NARRATIVE [facility] Comment on above: Result Comment: A. C olon, ascending polyp across tattoo site, biopsy: - Tubular adenoma B. Colon, ascending polyp adjacent to tattoo site, biopsy: - Tubular adenoma C. Colon, ascending polypectomy site, biopsy: - Benign colonic mucosa - No evidence of dysplasia D. Colon, hepatic flexure polyp, biopsy: - Hyperplastic polyp Performed By: #### L [id number] ####[facility] ([facility])[address] [place] [address] HPon 06-21-2024 HP History Of Present I lelia Rubi is a 73 y.o. female with [...] air kerma is 179 mGy. Electronically signed: Emmett Chaves. XR chest 1 view Narrative: Single [...] process. Left midlung lateral mass. Electronically signed: Emmett Chaves. Bronchoscopy Robotic Assisted (ion), EBUS with [...] I pers (more content not included)... Normal [facility] POCT GLUCOSE METER UNSOLICIT ED RESULTSon 06-21-2024 Glucose [Mass/Vol] 106 mg/dL High 70-105 [facility] Comment on above: Order Comment: Waive d Testing in the ED is performed under the ED CLIA certificate #[id number]. Result Comment: ag eman Performed By: #### L [id number] #### [facility] ([facility]AKER) [address] [place] [address] Telephoneon 06-15-2024 Telephone [phone] Maximiliano Rubi 1950 F Date Provider Department Center 06/15/2024 59931-VFLQNANOBRAD LACY DCC ONC DCC Family History Problem Relation Age of Onset Lung cancer Mother Other Sister Family Status - Relation Status Age at Mother Sister Reason for Visit and Comments: Appointment [375] - Tried calling patient to get scheduled for F/U appt 06/16, left a voicemail twice. CJ Normal [facility] Prep for Procedureon 024 Prep for Procedure [id number] Maximiliano Rubi 1950 F Date Provider Department Center 06/13/2024 FLORINDA GTZ [facility] GEORGEI Family History Problem Relation Age of Onset Lung cancer Mother Other Sister Family Status - Relation Status Age at Mother Sister Normal [facility] Orders Onlyon 05-27-2024 Orders Only [id number] Maximiliano Rubi 1950 F Date Provider Department Center 05/27/2024 MARTELL DALLAS [facility] Family History Problem Relation Age of Onset Lung cancer Mother Other Sister Family Status - Relation Status Age at Mother Sister Normal [facility] SURGICAL PATHOLOGY REFER ENCE LAB CONSULTon 05-26-2024 CC CASE REPORT [facility] Comment on above: Surgical Pathology R eport Case: [id number] Authorizing Provider: Javier Villanueva Collected: 05/24/2024 11:27 AM Ordering Location: [facility] Main Received: 05/24/2024 11:26 AM [facility] Pathologist: Leroy Zayas MD, PhD Specimen: Slide(s), 16 SLIDES [id number] [facility] CLINICAL HISTORY CONSULT REQUESTED [facility] DIAGNOSIS COMMENT [facility] Comment on above: Thank you for allowi ng us the opportunity to review this case in consultation representing the colon polyp biopsies from the 73-year-old female. Per provided letter and patient note, the police records clerk felt the polyp was completely removed. Histologic [...] to contact the GI consultation service at [phone] with questions or if additional follow-up information becomes available. This case was reviewed in conjunction with the GI pathology fellow, Sangita Rai M.D. [facility] FINAL DIAGNOSIS [facility] Comment on above: A. 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 - See comment. [facility] FINAL PERFORMING LAB [facility] Comment on above: Diagnostic interpret ation performed at: [facility], [address] [place] [address], [place] [address] CLIA# [id number] Vp Of Global Marketing: Henri Mireles MD Specimen Type: FORMALIN-FIXED PARAFFIN-EMBEDDED TISSUE SPECIMEN Ordering Facility: External Submitter Address: , , Original Ordering Provider: JAVIER VILLANUEVA [facility] 36on 05-18-2024 36 Attempted to contact patient to schedule a colonoscopy with EMR. Patient is at [facility] already today for an EBUS, and tells me she is having the colonoscopy today, attempted to explain to her the difference in the procedures but she ended up hanging up on me. Will try her tomorrow. Normal [facility] Anesthesiaon 05-18-2024 Anesthesia [id number] Maximiliano Rubi 1950 F Date Provider Department Center 05/18/202433611-ERCALFYL-[id number], TAYL*[facility] Family History Problem Relation Age of Onset Lung cancer Mother Other Sister Family Status - Relation Status Age at Mother Sister Normal [facility] HISTOLOGY - TISSUE EXAMon LAB AP ADDENDUM 1 Normal [facility] Comment on above: Result Comment: This case ([id number]) was sent to [facility] for PD-L1 22C3 IHC with tumor proportion score (TPS) interpretation and read by Rosie Azevedo MD. The result reads as follows: Tumor Proportion Score: 91-100% Adequacy of specimen: Adequate Addendum electronically signed by Javier Mensah MD on 06/02/2024 at 10:28 AM Performed By: #### L [id number] #### [facility] [address] [place] [address] LAB AP ASR DISCLAIMER The interpretation of [...] the Clinical Laboratory Improvement Amendments of 1998. [facility] Comment on above: Performed By: #### L [id number] #### [facility] [address] [place] [address] LAB AP CASE REPORT Normal [facility] Comment on above: Result Comment: Surg ical Pathology Case: [id number] Authorizing Provider: Diana Warren MD Collected: 05/18/2024 1331 Ordering Location: [facility] Main Operating Room Received: 05/18/2024 1432 Pathologist: Javier Mensah MD Specimen: Lung, Left Upper Lobe, Left Upper Lung Mass bx r/o Cancer Performed By: #### L [id number] #### [facility] ([facility] [address] [place] [address] LAB AP CLINICAL INFORMATION Order Diagnoses Normal [facility] Comment on above: Result Comment: R91. 1 - Lung nodule [ICD-10-CM] Performed By: #### L [id number] #### [facility] ([facility] [address] [place] [address] LAB AP DIAGNOSIS COMMENT Normal [facility] Comment on above: Result Comment: Immu [...] if clinically indicated. Performed By: #### L [id number] #### [facility] [address] [place] [address] LAB AP GROSS DESCRIPTION [facility] Comment on above: Result Comment: Phillip golden, Left Upper Lobe. Received in formalin labeled with the patient's name Bhupendra Rubi and left upper lung mass BX rule out cancer, is a 2.0 x 0.3 x 0.1 cm aggregate of chandler-pink, feathery soft tissue fragments. The specimen is filtered and submitted in toto in 1 cassette. Saniya Carson, Pathologists' Clinical Rehabilitation Liaison Student Performed By: #### L [id number] #### [facility] ([facility] [address] [place] [place] [address] LAB AP MICROSCOPIC DESCRIPTION Microscopic examination performed. [facility] Comment on above: Performed By: #### L [id number] #### [facility] [address] [place] [place] [address] LAB AP REPORT FINAL DIAGNOSIS NARRATIVE [facility] Comment on above: Result Comment: Phillip golden, left upper lobe, biopsy: -Adenocarcinoma. Preliminary result electronically signed by Javier Mensah MD on 05/20/2024 at 12:17 PM Performed By: #### L [id number] #### [facility] ([facility] [address] [place] [address] HPon 05-18-2024 HP ------ -- Attestation signed by Diana Warren MD at 05/18/2024 11:17 AM Re-explained the procedure to the patient along with the associated risk of pneumothorax, bleeding, hypoxia, and respiratory failure. Patient is agreeable and will proceed with the scheduled robotic bronchoscopy, TBBx, and Ebus TBNA Diana Warren MD Interventional Pulmonary Medicine Pulmonary and Critical Care Medicine [facility] -- History Reviewed reviewed. The patient was examined [...] no edema. Skin: Warm and dry. Normal [facility] NON-MATERIAL STRESS TESTER CYTOLOGY - CELLULAR EXAMon 05-18-2024 LAB AP CASE REPORT Normal [facility] Comment on above: Result Comment: Non- gynecologic Cytology Case: [id number] Authorizing Provider: Diana Warren MD Collected: 05/18/2024 1309 Ordering Location: [facility] Main Operating Room Received: 05/19/2024 1251 Pathologist: Javier Mensah MD Specimens: A) - Lung, Left Upper Lobe B) - Lung, Left Upper Lobe C) - Lymph Node Station 7, Lymph Node Station 7 FNA D) - Lymph Node Station 4R, Lymph Node Station 4R FNA Performed By: #### L [id number] #### [facility] ([facility]) [address] [place] [address] LAB AP CLINICAL INFORMATION Normal [facility] Comment on above: Result Comment: PET avid left upper lobe lung nodule that has increased in size (2.2 cm), 40 pack-year smoking history Performed By: #### L [id number] #### [facility] [address] [place] [address] LAB AP DIAGNOSIS COMMENT [facility] Comment on above: Result Comment: Ther e is a moderate amount of tumor cells present in the cell block of part A and scant tumor in the cell block of part B for additional studies, if clinically indicated. See also concurrent biopsy, [id number]. Performed By: #### L [id number] #### [facility] [address] [place] [address] LAB AP GROSS DESCRIPTION [facility] Comment on above: Result Comment: A. 2 air-dried slides, 2 alcohol-fixed slides, 30 mL CytoLyt with clear, red fluid and clots B. 15 mL cloudy, red fluid C. 30 mL CytoLyt with clear, pink fluid D. 30 mL CytoLyt with clear, pink fluid and white flecks Performed By: #### L [id number] #### [facility] ([facility] [address] [place] [address] LAB AP INTRAOPERATIVE CONSULTATION [facility] Comment on above: Result Comment: A. L [...] submitted.* Performed By: #### L AB13 #### [facility] ([facility] [address] [place] [address] LAB AP MICROSCOPIC DESCRIPTION [facility] Comment on above: Result Comment: A. S [...] blood. Performed By: #### L AB13 #### [facility] ([facility] [address] [place] [address] LAB AP REPORT FINAL DIAGNOSIS NARRATIVE Normal [facility] Comment on above: Result Comment: A. L chantel, Left Upper Lobe, Ion-guided fine needle aspiration: - Non-small cell carcinoma. See concurrent surgical biopsy [id number] for results of immunohistochemistry. B. Lung, Left Upper Lobe, bronchoalveolar lavage: - Non-small cell carcinoma C. Lymph Node, Station 7, EBUS-guided fine needle aspiration: - Negative for metastatic malignancy. - Cellular evidence of a lymph node. D. Lymph Node, Station 4R, EBUS-guided fine needle aspiration: - Negative for metastatic malignancy. - Cellular evidence of a lymph node. Performed By: #### L AB13 #### [facility] ([facility] [address] [place] [address] NURSNOTEon 05-18-[address] Warren viewed c hest xray at bedside and gave television writer verbal permission to discharge patient home. RN reviewed discharge instructions with patient and significant other at bedside. No questions or concerns expressed at this time. Normal [facility] NURSNOTE X ray is at bedside Normal [facility] NURSNOTE STAT Portable Chest X-Ray in PACU. Follow up at [facility] with Carrol Kunz, for lab results in 2-4 weeks. May resume a Regular Diet and home medications if Chest X-Ray is normal. Normal [facility] NURSNOTE Bronch/EBUS Findings : Left Upper Lung Mass Normal [facility] POCT GLUCOSE METER UNSOLICIT ED RESULTSon 05-18-2024 Glucose [Mass/Vol] 96 mg/dL Normal 70-105 [facility] Comment on above: Order Comment: Waive d Testing in the ED is performed under the ED CLIA certificate #[id number]. Result Comment: aepp ink Performed By: #### L [id number] ####[facility] ([facility])[address] [place] [address] Telephoneon 05-18-2024 Telephone [phone] Maximiliano Rubi M 1950 F Date Provider Department Center 05/18/2024 MARTELL DALL[facility] Family History Problem Relation Age of Onset Lung cancer Mother Other Sister Family Status - Relation Status Age at Mother Sister Normal [facility] Prep for Procedureon 024 Prep for Procedure [id number] Maximiliano Rubi M 1950 F Date Provider Department Center 05/12/2024 383-DIANA WARREN [facility] Family History Problem Relation Age of Onset Lung cancer Mother Other Sister Family Status - Relation Status Age at Mother Sister Normal [facility] CT CHEST WO IV CONTRASTon CT [...] Menon MD. Not Vldtd Invalid Interpretation Code [facility] HPon 04-28-2024 HP ------ -- Attestation signed by Diana Warren MD at [...] be an additional personal documentation from me. -- Pulmonary Clinic Visit Note Patient: Bhupendra Rubi Age: 73 y.o. : 1950 Account No.: [id number] Referring physician: Dr. Lundberg Chief complaint: Lung [...] was initiated by the patient and conducted [id number] with use of audio-only real time telephone [...] Physical examination (more content not included)... 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 No adnexal mass.] Peritoneum/Retroperitoneum :No free air or free fluid or lymphadenopathy.[ [...] Jalloh Jr., D.O.04/21/2024 4:03 PM Dictation Location: [place] [address] Transcribed By: [facility] 04/21/24 1603 Dictated By: Napoleon Jalloh Jr, DO 04/21/24 1556 Signed By: 04/21/24 1603 Normal [facility] Creatinineon 04-21-2024 GFR/1.73 sq M.predicted MDRD (S/P/Bld) [Vol rate/Area] mL/min/{1.73_m2} Normal [facility] Comment on above: Order Comment: STAT FOR CT Result Comment: PERF ORMED BY: [facility] [place] [address] PATHOLOGIST MANAGING PRINCIPAL JENNIFER ALANIZ M.D. Performed By: #### L AMOT #### [facility] , Creatinine [Mass/volume] in Serum or PlasmaOrdered By: Mikhail Moon on 04-21-2024 Creatinine [Mass/Vol] 0.91 mg/dL Normal 0.60-1.20 [facility] Comment on above: Order Comment: STAT FOR CT Performed By: #### L AMOT #### [facility] , No Panel InformationOrdered By: Mikhail Moon on 04-21-2024 Estimated GFR (CKD-EPI) > 60.0 mL/Min [facility] Creatinine Clearance (Chem N/A [facility] Serum or plasma carcinoembry onic antigen measurement (mass/volume)Ordered By: Mikhail Moon on 04-21-2024 Carcinoembryonic Ag [Mass/Vol] 10.0 ng/mL High 0.0-3.0 [facility] Comment on above: Serial tumor marker results determined by assays using different manufacturers or methods may not be comparable.[facility] compliance specialist and method:ANTIONE ROBLOXEL DXI, 2 SITE IMMUNOENZYMATIC SANDWICH ASSAY. Urea nitrogen [Mass/volume] in Serum or PlasmaOrdered By: Mikhail Moon on 04-21-2024 Urea nitrogen [Mass/Vol] 18 mg/dL Normal 7-25 [facility] Comment on above: Order Comment: STAT FOR CT Performed By: #### L AMOT #### [facility] , No Panel InformationOrdered By: Mikhail Moon on 03-25-2024 Miscellaneous Pathology Test See comment [facility] Comment on above: See report. Scanned copy available in EMR. Pathology Request for Lab Co rpon 03-25-2024 Pathology Request for Lab Crys Normal [facility] Comment on above: Order Comment: PATHO LOGY GI SPECIMEN Result Comment: See report. Scanned copy available in EMR. PERFORMED BY: [place] [address] PATHOLOGIST MANAGING PRINCIPAL JENNIFER ALANIZ M.D. Performed By: #### P ATH TO [facility] #### [address] HISTOPLASMA GAL'BARB AG UR on 03-17-2024 HISTOPLASMA GAL'BARB AG UR Negative <0.2 ng/mL [facility] Comment on above: Performed at: [address] [id number] Disability Hearing Officer: Erick Khalil MD, Phone: [phone] URINE [facility] ALL HGB HCTon 03-09-2024 Hematocrit (Bld) [Volume fraction] 38.5 % 36.0 - 48.0 % [facility] Hemoglobin (Bld) [Mass/Vol] 12.3 g/dL 12.0 - 16.0 g/dL [facility] Perez 03-09-2024 L Specimen: [id number] Received: 03/10/24 Status: SOUT Req Num: [id number] Spec Type: Surgical Subm Dr: Leigh Thompson DO Tissues: A Lung CT-Guided Biopsy (BAL HÉCTOR) Procedures: HE/2, Gross/Micro L4 Age/ Patient Sex Location Account Attending Physician Bhupendra Rubi 73/F LABELL [id number] Leigh Thompson DO SPEC NUM: [id number] RECD: 03/10/24 STATUS: TRINIDAD ARAIZA NUM: [id number] LORA: 03/09/24-5 [facility] DR: Leigh Thompson DO ENTERED: 03/10/24-0 [facility] DR: Praveen Villalobos SPEC TYPE: Surgical DEPT: [facility] ENTERED BY: [id number] RECV BY: [id number] ORDERED: HE/2, Gross/Micro L4 ORDERED: HE/2, Gross/Micro [...] are performed supporting the above interpretation Specimen: [id number] Received: 03/10/24 Status: TRINIDAD Araiza Num: [id number] Spec Type: Surgical Subm Dr: Leigh Thompson DO Tissues: A Lung CT-Guided Biopsy (BAL HÉCTOR) Procedures: HE/2, Gross/Micro L4 Patient: Bhupendra Rubi [id number] ([facility]) Specimen: [id number] Received: 03/10/24 (Continued) Signed (signature on file) Jason Gomez MD 03/18/24 0936 Specimen: [id number] Received: 03/10/24 Status: TRINIDAD Brii Num: [id number] Spec Type: Surgical Subm Dr: Leigh Thompson DO Tissues: A Lung CT-Guided Biopsy (BAL HÉCTOR) Procedures: Carmelo PAYTON/Griffin L4 Patient: Bhupendra Rubi [id number] (Continued) Specimen: [id number] Received: 03/10/24 (Continued) CPT Codes 09818 Specimen: [id number] Received: 03/10/24 Status: TRINIDAD Araiza Num: [id number] Spec Type: Surgical Subm Dr: Leigh Thompson DO Tissues: A Lung CT-Guided Biopsy (BAL HÉCTOR) Procedures: KARL/Carmelo Delatorre/Griffin L4 Patient: Bhupendra Rubi [id number] (Continued) Signed (signature on file) Cha Gomez MD 03/18/24 0936 Normal [facility] L Specimen: Received: 03/15/24 Status: TRINIDAD Araiza Num: [id number] Spec Type: Cytology Subm Dr: Leigh Thompson DO Tissues: A [facility] (LEFT UPPER LOBE) Procedures: HE/2, Gross/Micro L4, Cyto Prepstain, PAPSTN Age/ Patient Sex Location Account Attending Physician Bhupendra Rubi 73/F LABELL [id number] Leigh Thompson DO SPEC NUM: [id number] RECD: 03/15/24 STATUS: TRINIDAD ARAIZA NUM: [id number] LORA: 03/09/24-[address]: Leigh Thompson DO ENTERED: 03/15/[address]: Praveen Villalobos SPEC TYPE: Cytology DEPT: [facility] ENTERED BY: [id number] RECV BY: [id number] ORDERED: HE/2, Gross/Micro L4, Cyto Prepstain, PAPSTN ORDERED: HE/2, Gross/Micro L4, Cyto Prepstain, PAPSTN Pathological Diagnosis Left lung upper lobe cytology: Negative for malignant cells. Gross Description Received fresh is 13 ml clear colorless unfixed fluid for cytology said to have been obtained as left upper lobe for cytology. ThinPrep and cell block preparations are prepared for microscopic examination.(NH/nv) CPT Codes 38506 Specimen: Received: 03/15/24-1155 Status: TRINIDAD Araiza Num: [id number] Spec Type: Cytology Subm Dr: Leigh Thompson DO Tissues: A BRONWASH (LEFT UPPER LOBE) Procedures: HE/2, Gross/Micro L4, Cyto Prepstain, PAPSTN Patient: Bhupendra Rubi [id number] (Continued) Signed (signature on file) Diana Massey MD 03/16/24 1430 Normal [facility] ALL CBC WITH AUTO DIFFon BASOPHILS ABSOLUTE AUTO 0.1 [facility] Basophils/100 WBC (Bld) 0.9 % 0.2 - 2.0 % [facility] Eosinophils/100 WBC (Bld) 1.1 % 0.9 - 7.0 % [facility] Erythrocyte distribution width (RBC) [Ratio] 14.9 % 11.0 - 15.0 % [facility] Hematocrit (Bld) [Volume fraction] 43.8 % 36.0 - 48.0 % [facility] Hemoglobin (Bld) [Mass/Vol] 14.2 g/dL 12.0 - 16.0 g/dL [facility] IMMATURE GRANULOCYTES ABS AUTO 0.03 [facility] Immature granulocytes/100 WBC (Bld) 0.3 % 0.0 - 0.5 % [facility] Interpretation and review of laboratory results Abnormal [facility] LYMPHOCYTES ABSOLUTE AUTO 2.6 [facility] Lymphocytes/100 WBC (Bld) 23.0 % 20.5 - 60.0 % [facility] MCH (RBC) [Entitic mass] 28.8 pg 26.7 - 34.0 pg [facility] MCHC (RBC) [Mass/Vol] 32.4 g/dL 29.9 - 35.2 g/dL [facility] MCV (RBC) [Entitic vol] 88.8 fL 81.0 - 99.0 fL [facility] MONOCYTES ABSOLUTE AUTO 1.0 High N [facility] Monocytes/100 WBC (Bld) 8.5 % 1.7 - 12.0 % [facility] NEUTROPHILS ABSOLUTE AUTO 7.5 High [facility] Neutrophils/100 WBC (Bld) 66.2 % 43.0 - 75.0 % [facility] Platelet mean volume (Bld) [Entitic vol] 9.9 fL 9.5 - 13.5 fL [facility] TBH EO # 0.1 [facility] TB PLT [address] [facility] RBC 4.93 [facility] WBC 11.2 High [facility] Activated partial thrombopla stin time (aPTT) in platelet poor plasma by coagulation aOrdered By: Emmett Bhakta on 12-27-2023 aPTT Coag (PPP) [Time] 24.6 s Low 25.1-36.5 [facility] Comment on above: A hematocrit value g reater than 55% may lead to inaccurate results in coagulation testing. Patients having hematocrit values >55% require a special collection tube for coagulation studies. Please contact the laboratory at [phone] for redraw instructions. Alanine aminotransferase [En zymatic activity/volume] in Serum or PlasmaOrdered By: Emmett Bhakta on 12-27-2023 ALT [Catalytic activity/Vol] 10 U/L 7-52 [facility] Albumin [Mass/volume] in Ser um or Plasma by Bromocresol green (BCG) dye binding methoOrdered By: Emmett Bhakta on 12-27-2023 Albumin BCG dye [Mass/Vol] 4.0 g/dL 3.5-5.7 [facility] Alkaline phosphatase [Enzyma tic activity/volume] in Serum or PlasmaOrdered By: Emmett Bhakta on 12-27-2023 ALP [Catalytic activity/Vol] 105 U/L High 34-104 [facility] Aspartate aminotransferase [ Enzymatic activity/volume] in Serum or PlasmaOrdered By: Emmett Bhakta on 12-27-2023 AST [Catalytic activity/Vol] 10 U/L Low 13-39 [facility] Bacteria [Presence] in Urine sediment by Light microscopyOrdered By: Emmett Bhakta on 12-27-2023 Bacteria LM Ql (Urine sed) 1+ [HPF] High None Seen [facility] Comment on above: Microscopic results may be affected due to low specimen volume. Bacterial blood cultureOrder ed By: Emmett Bhakta on 12-27-2023 Bacteria identified Cx Nom (Bld) NO GROWTH 5 DAYS [facility] Bacteria identified Cx Nom (Bld) NO GROWTH 5 DAYS [facility] Basophils Auto (Bld) [#/Vol] Ordered By: Emmett Bhakta on 12-27-2023 Basophils (Bld) [#/Vol] 0.1 10*3/uL 0.0-0.2 [facility] Basophils/100 WBC Auto (Bld) Ordered By: Emmett Bhakta on 12-27-2023 Basophils/100 WBC (Bld) 0.6 % . F [facility] Bilirubin Test strip Ql (U)O rdered By: Emmett Bhakta on 12-27-2023 Bilirubin Ql (U) Negative Negative [facility] Bilirubin.total [Mass/volume ] in Serum or PlasmaOrdered By: Emmett Bhakta on 12-27-2023 Bilirubin [Mass/Vol] 0.3 mg/dL 0.3-1.0 [facility] Calcium [Mass/volume] in Ser um or PlasmaOrdered By: Emmett Bhakta on 12-27-2023 Calcium [Mass/Vol] 9.3 mg/dL 8.6-10.3 [facility] Carbon dioxide, total [Moles /volume] in Serum or PlasmaOrdered By: Emmett Bhakta on 12-27-2023 CO2 [Moles/Vol] 26.9 mmol/L 21.0-31.0 [facility] Chloride [Moles/volume] in [place] or PlasmaOrdered By: Emmett Bhakta on 12-27-2023 Chloride [Moles/Vol] 104 mmol/L 98-107 [facility] Color Auto (U)Ordered By: Josi Bhakta on 12-27-2023 Color (U) Yellow Yellow [facility] Creatine kinase [Enzymatic a ctivity/volume] in Serum or PlasmaOrdered By: Emmett Bhakta on 12-27-2023 CK [Catalytic activity/Vol] 41 U/L 30-223 [facility] Creatinine [Mass/volume] in Serum or PlasmaOrdered By: Emmett Bhakta on 12-27-2023 Creatinine [Mass/Vol] 0.94 mg/dL 0.60-1.20 [facility] Eosinophils Auto (Bld) [#/Vo l]Ordered By: Emmett Bhakta on 12-27-2023 Eosinophils (Bld) [#/Vol] 0.1 10*3/uL 0.0-0.45 [facility] Eosinophils/100 WBC Auto (Bl d)Ordered By: Emmett Bhakta on 12-27-2023 Eosinophils/100 WBC (Bld) 0.6 % . [facility] Epithelial cells.squamous [# /area] in Urine sediment by Microscopy high power fieldOrdered By: Emmett Bhakta on 12-27-2023 Epithelial cells.squamous LM.HPF (Urine sed) [#/Area] 5-9 [HPF] High 0-2 [facility] Comment on above: Microscopic results may be affected due to low specimen volume. Erythrocyte distribution wid th Auto (RBC) [Ratio]Ordered By: Emmett Bhakta on 12-27-2023 Erythrocyte distribution width (RBC) [Ratio] 15.6 % High 11.9-15.3 [facility] Erythrocytes [#/area] in Uri ne sediment by Microscopy high power fieldOrdered By: Emmett Bhakta on 12-27-2023 RBC LM.HPF (Urine sed) [#/Area] None seen [HPF] 0-4 [facility] Comment on above: Microscopic results may be affected due to low specimen volume. Fecal occult blood detection by immunochemistryOrdered By: Emmett Bhakta on 12-27-2023 Hemoglobin.gastrointest inal Ql (Stl) [facility] Fibrin D-dimer [Presence] in Platelet poor plasma by Latex agglutinationOrdered By: Emmett Bhakta on 12-27-2023 Fibrin D-dimer LA Ql (PPP) 480 ng/mL High 0-243 [facility] Comment on above: The reference range [...] coagulation studies. Please contact the laboratory at [phone] for redraw instructions. Globulin Calc (S) [Mass/Vol] Ordered By: Emmett Bhakta on 12-27-2023 Globulin (S) [Mass/Vol] 2.8 g/dL [facility] Glucose [Mass/volume] in Ser um or PlasmaOrdered By: Emmett Bhakta on 12-27-2023 Glucose [Mass/Vol] 120 mg/dL High 70-100 [facility] Comment on above: ADA recommended refe rence rangeRandom Glucose Reference Range is dependent on time and content of last meal. Glucose of more than 200 mg/dL in a nonstressed, ambulatory subject supports the diagnosis of Diabetes Mellitus. Glucose [Mass/volume] in Uri ne by Test stripOrdered By: Emmett Bhakta on 12-27-2023 Glucose Test strip (U) [Mass/Vol] Normal mg/dL Normal [facility] Hematocrit Auto (Bld) [Volum e fraction]Ordered By: Emmett Bhakta on 12-27-2023 Hematocrit (Bld) [Volume fraction] 44.0 % 34.0-46.4 [facility] Hemoglobin Test strip Ql (U) Ordered By: Emmett Bhakta on 12-27-2023 Hemoglobin Ql (U) Negative Negative [facility] Hemoglobin [Mass/volume] in BloodOrdered By: Emmett Bhakta on 12-27-2023 Hemoglobin (Bld) [Mass/Vol] 14.5 g/dL 11.8-15.4 [facility] INR in Platelet poor plasma by Coagulation assayOrdered By: Emmett Bhakta on 12-27-2023 INR Coag (PPP) [Relative time] 1.0 {INR} [facility] Comment on above: INR Therapeutic Rang [...] with mechanical heart valves: 3 - 4.5 Ketones Test strip Ql (U)Ord ered By: Emmett Bhakta on 12-27-2023 Ketones Ql (U) Negative Negative [facility] Laboratory - Chemistry and C hemistry - challengeOrdered By: Emmett Bhakta on 12-27-2023 CO2 [Moles/Vol] 25.3 mmol/L 23.0-27.0 [facility] HCO3 (Bld) [Moles/Vol] 23.8 mmol/L 23.0-29.0 [facility] Lactate [Moles/volume] in Se rum or PlasmaOrdered By: Emmett Bhakta on 12-27-2023 Lactate [Moles/Vol] 1.6 mmol/L 0.5-2.2 [facility] Leukocyte esterase [Presence ] in Urine by Test stripOrdered By: Emmett Bhakta on 12-27-2023 Leukocyte esterase Test strip Ql (U) 4+ High Negative [facility] Leukocytes [#/area] in Urine sediment by Microscopy high power fieldOrdered By: Emmett Bhakta on 12-27-2023 WBC LM.HPF (Urine sed) [#/Area] 5-9 [HPF] High 0-4 [facility] Comment on above: Microscopic results may be affected due to low specimen volume. Leukocytes [#/volume] correc pilar for nucleated erythrocytes in Blood by Automated counOrdered By: Emmett Bhakta on 12-27-2023 WBC corrected for nucl RBC Auto (Bld) [#/Vol] 13.4 10*3/uL High 3.8-11.6 [facility] Lymphocytes Auto (Bld) [#/Vo l]Ordered By: Emmett Bhakta on 12-27-2023 Lymphocytes (Bld) [#/Vol] 3.7 10*3/uL 1.00-4.8 [facility] Lymphocytes/100 WBC Auto (Bl d)Ordered By: Emmett Bhakta on 12-27-2023 Lymphocytes/100 WBC (Bld) 27.4 % . [facility] MCH Auto (RBC) [Entitic mass ]Ordered By: Emmett Bhakta on 12-27-2023 MCH (RBC) [Entitic mass] 28.9 pg 24.7-34.3 [facility] MCHC Auto (RBC) [Mass/Vol]Or dered By: Emmett Bhakta on 12-27-2023 MCHC (RBC) [Mass/Vol] 33.0 g/dL 32.0-35.0 Fir [facility] MCV Auto (RBC) [Entitic vol] Ordered By: Emmett Bhakta on 12-27-2023 MCV (RBC) [Entitic vol] 87.6 fL 80-100 F [facility] Monocyte distribution width [Entitic volume] in Blood by AutomatedOrdered By: Emmett Bhakta on 12-27-2023 Monocyte distribution width Auto (Bld) [Entitic vol] 19.53 % 0.00-20.00 [facility] Monocytes Auto (Bld) [#/Vol] Ordered By: Emmett Bhakta on 12-27-2023 Monocytes (Bld) [#/Vol] 1.3 10*3/uL High 0.0-0.8 [facility] Monocytes/100 WBC Auto (Bld) Ordered By: Emmett Bhakta on 12-27-2023 Monocytes/100 WBC (Bld) 9.8 % . F [facility] Natriuretic peptide B [Mass/ Vol]Ordered By: Emmett Bhakta on 12-27-2023 Natriuretic peptide B (Bld) [Mass/Vol] 32.0 pg/mL 5-100 [facility] Neutrophils Auto (Bld) [#/Vo l]Ordered By: Emmett Bhakta on 12-27-2023 Neutrophils (Bld) [#/Vol] 8.3 10*3/uL High 1.8-7.7 [facility] Neutrophils/100 WBC Auto (Bl d)Ordered By: Emmett Bhakta on 12-27-2023 Neutrophils/100 WBC (Bld) 61.6 % . [facility] Nitrite Test strip Ql (U)Ord ered By: Emmett Bhakta on 12-27-2023 Nitrite Ql (U) Negative Negative [facility] No Panel InformationOrdered By: Emmett Bhakta on 12-27-2023 Arterial Blood Base Excess -2.4 mmol/L -3.0-3.0 [facility] Arterial Blood Oxygen Content 7.5 mmol/L 6.6-9.7 [facility] Arterial Blood Oxygen Saturation 95.5 % 95.0-100.0 [facility] Arterial Blood Partial Pressure CO2 46.7 mm[Hg] High 35.0-45.0 [facility] Arterial Blood Partial Pressure O2 84.0 mm[Hg] 80.0-100.0 [facility] Arterial Blood pH 7.33 Low 7.35-7.45 [facility] Blood Gas Critical Value See comment [facility] Comment on above: Critical Value chaves d on: 12/27/2023 at 11:36 Blood Gas Liter Flow 3 L/min [facility] Blood Gas Sample Site Left radial Fi [facility] FiO2 32 % [facility] Oxygen Delivery Device Nasal cannula [facility] Estimated GFR (CKD-EPI) > 60.0 mL/Min [facility] Creatinine Clearance (Chem 50.59 [facility] Nucleated erythrocytes [Pres ence] in Blood by Automated countOrdered By: Emmett Bhakta on 12-27-2023 Nucleated RBC Auto Ql (Bld) 0.1 /100{WBC} 0-0.5 [facility] Platelet mean volume Auto (B ld) [Entitic vol]Ordered By: Emmett Bhakta on 12-27-2023 Platelet mean volume (Bld) [Entitic vol] 8.3 fL 6.3-10.7 [facility] Platelets Auto (Bld) [#/Vol] Ordered By: Emmett Bhakta on 12-27-2023 Platelets (Bld) [#/Vol] 399 10*3/uL 150-450 [facility] Potassium [Moles/volume] in Serum or PlasmaOrdered By: Emmett Bhakta on 12-27-2023 Potassium [Moles/Vol] 3.7 mmol/L 3.5-5.1 [facility] Protein Test strip (U) [Mass /Vol]Ordered By: Emmett Bhakta on 12-27-2023 Protein (U) [Mass/Vol] Negative Negative [facility] Protein [Mass/volume] in Ser um or PlasmaOrdered By: Emmett Bhakta on 12-27-2023 Protein [Mass/Vol] 6.8 g/dL 6.4-8.9 [facility] Prothrombin time (PT)Ordered By: Emmett Bhakta on 12-27-2023 PT Coag (PPP) [Time] 11.5 s 9.0-12.9 [facility] Comment on above: A hematocrit value g reater than 55% may lead to inaccurate results in coagulation testing. Patients having hematocrit values >55% require a special collection tube for coagulation studies. Please contact the laboratory at [phone] for redraw instructions. RBC Auto (Bld) [#/Vol]Ordere d By: Emmett Bhakta on 12-27-2023 RBC (Bld) [#/Vol] 5.03 10*6/uL High 3.60-5.00 [facility] Serum or plasma albumin/glob ulin mass ratioOrdered By: Emmett Bhakta on 12-27-2023 Albumin/Globulin [Mass ratio] 1.4 {ratio} [facility] Serum or plasma anion gap de terminationOrdered By: Emmett Bhakta on 12-27-2023 Anion gap [Moles/Vol] 12.8 mmol/L 6.0-15.0 [facility] Sodium [Moles/volume] in Ser um or PlasmaOrdered By: Emmett Bhakta on 12-27-2023 Sodium [Moles/Vol] 140 mmol/L 136-145 [facility] Specific gravity Test strip (U) [Rel density]Ordered By: Emmett Bhakta on 12-27-2023 Specific gravity (U) [Rel density] 1.043 High 1.001-1.03 0 [facility] Troponin I.cardiac [Mass/vol ume] in Serum or Plasma by Detection limit <= 0.01 ng/Ordered By: Emmett Bhakta on 12-27-2023 Troponin I.cardiac DL <= 0.01 ng/mL [Mass/Vol] < 2.3 pg/mL 0.0-15.0 [facility] Urea nitrogen [Mass/volume] in Serum or PlasmaOrdered By: Emmett Bhakta on 12-27-2023 Urea nitrogen [Mass/Vol] 13 mg/dL 7-25 [facility] Urine appearanceOrdered By: Emmett Bhakta on 12-27-2023 Appearance (U) Cloudy Abnormal [facility] Urine culture routineOrdered By: Emmett Bhakta on 12-27-2023 Bacteria identified Cx Nom (U) 2 Days [facility] Urobilinogen Test strip (U) [Mass/Vol]Ordered By: Emmett Bhakta on 12-27-2023 Urobilinogen (U) [Mass/Vol] Normal mg/dL Normal [facility] WBC Auto (Bld) [#/Vol]Ordere d By: Emmett Bhakta on 12-27-2023 WBC (Bld) [#/Vol] 13.4 10*3/uL High 3.8-11.6 [facility] pH Test strip (U)Ordered By: Emmett Bhakta on 12-27-2023 pH (U) 6.0 [pH] 5.0-9.0 [facility] CHEMISTRYOrdered By: Covestor on 01-01-2023 Ferritin [Mass/Vol] 20 ng/mL Normal [...] - 370 mg/dL [facility]isol CHEMISTRYOrdered By: Covestor on 12-24-2022 Albumin [Mass/Vol] 4.0 g/dL Normal [...] 61 mL/min/1.73 m2 Normal >=59mL/min /1.73 m2 [facility] Chem S Globulin (S) [...] 1.4 % Normal 0.0 - 2.0 % [facility] HemeAutoSS Basophils/Leukocytes Auto (Bld) [Pure # fraction] [...] MCH (RBC) [Entitic mass] 29.2 pg Normal 27.0 - 34.0 pg [facility] HemeAutoSS MCHC (RBC) [...] 5.1 E12/L Normal 4.3 - 5.9 E12/L [facility] HemeAutoSS WBC corrected for nucl RBC Auto (Bld) [#/Vol] 13.6 E9/L High 4.0 - 11.0 E9/L [facility] HemeAutoSS CBC AUTO DIFFon 11-11-2022 BASO # 0.1 103/ul Normal 0.0-0.1 [facility] Comment on above: Performed By: #### C BC #### [facility] [address] [address] [address] Anisa Gomez Basophils/100 WBC (Bld) 0.5 % Normal 0.2-2.0 [facility] Comment on above: Performed By: #### C BC #### [facility] [address] [address] [address] Anisa Gomez EO # 0.1 103/ul Normal 0.0-0.7 [facility] Comment on above: Performed By: #### C BC #### [facility] [address] [address] [address] Anisa Gomez Eosinophils/100 WBC (Bld) 0.8 % Critically low 0.9-7.0 [facility] Comment on above: Performed By: #### C BC #### [facility] [address] [place] [address] Dr. Anisa Gomez Erythrocyte distribution width (RBC) [Ratio] 15.2 % Critically high 11.0-15.0 [facility] Comment on above: Performed By: #### C BC #### [facility] [address] [place] [address] Dr. Anisa Gomez Hematocrit (Bld) [Volume fraction] 48.8 % Critically high 36.0-48.0 [facility] Comment on above: Performed By: #### C BC #### [facility] [address] [place] [address] Dr. Anisa Gomez Hemoglobin (Bld) [Mass/Vol] 15.8 g/dL Normal 12.0-16.0 [facility] Comment on above: Performed By: #### C BC #### [facility] [address] [place] [address] Dr. Anisa Gomez IG # 0.03 10e3/ul Normal 0.00-0.03 [facility] Comment on above: Performed By: #### C BC #### [facility] [address] [place] [address] Dr. Anisa Gomez IG % 0.2 % Normal 0.0-0.5 [facility] Comment on above: Performed By: #### C BC #### [facility] [address] [place] [address] Dr. Anisa Gomez LYMPH # 3.2 103/ul Normal 1.2-3.8 [facility] Comment on above: Performed By: #### C BC #### [facility] [address] [place] [address] Dr. Anisa Gomez Lymphocytes/100 WBC (Bld) 21.9 % Normal 20.5-60.0 [facility] Comment on above: Performed By: #### C BC #### [facility] [address] [place] [address] Dr. Anisa Gomez MANUAL DIFF REQ NO Normal [facility] Comment on above: Performed By: #### C BC #### [facility] [address] [place] [address] Dr. Anisa Gomez MCH (RBC) [Entitic mass] 29.9 pg Normal 26.7-34.0 [facility] Comment on above: Performed By: #### C BC #### [facility] [address] [place] [address] Dr. Anisa Gomez MCHC (RBC) [Mass/Vol] 32.4 g/dL Normal 29.9-35.2 [facility] Comment on above: Performed By: #### C BC #### [facility] [address] [place] [address] Dr. Anisa Gomez MCV (RBC) [Entitic vol] 92.2 fL Normal 81.0-99.0 [facility] Comment on above: Performed By: #### C BC #### [facility] [address] [address] [address] Anisa Gomez MONO # 1.2 103/ul Critically high 0.3-0.8 [facility] Comment on above: Performed By: #### C BC #### [facility] [address] [place] [address] Dr. Anisa Gomez Monocytes/100 WBC (Bld) 8.0 % Normal 1.7-12.0 [facility] Comment on above: Performed By: #### C BC #### [facility] [address] [place] [address] Dr. Anisa Gomez NEUT # 9.9 103/ul Critically high 1.4-6.5 [facility] Comment on above: Performed By: #### C BC #### [facility] [address] [place] [address] Dr. Anisa Gomez Neutrophils/100 WBC (Bld) 68.6 % Normal 43.0-75.0 [facility] Comment on above: Performed By: #### C BC #### [facility] [address] [place] [address] Dr. Anisa Gomez Platelet mean volume (Bld) [Entitic vol] 10.6 fL Normal 9.5-13.5 [facility] Comment on above: Performed By: #### C BC #### [facility] [address] [place] [address] Dr. Anisa Gomez PLT 336 103/ul Normal 150-450 [facility] Comment on above: Performed By: #### C BC #### [facility] [address] [place] [address] Dr. Anisa Gomez RBC 5.29 106/ul Normal 4.20-5.40 [facility] Comment on above: Performed By: #### C BC #### [facility] [address] [place] [address] Dr. Anisa Gomez WBC 14.4 103/ul Critically high 4.0-11.0 [facility] Comment on above: Performed By: #### C BC #### [facility] [address] [place] [address] Dr. Anisa Gomez CTA ABD/PELVIS WO W CONon 05 -02-2023 CTA ABD/PELVIS WO W CON EXAM: CTA [...] by: LAYNE HO Date: 2022-11-11 18:26 Normal [facility] CTA CHEST WO W CONon 023 CTA CHEST WO W CON EXAMINATION: CTA PHYLLIS ST W CON HISTORY: CHEST PAIN, UNSPECIFIED COMPARISON: [...] ANDRES UNLU Date: 2022-11-11 17:48 Normal [facility] URINE PROFILEon 3 Bilirubin Ql (U) Negative Normal NEGATIVE [facility] Comment on above: Performed By: #### E RUR ####[facility] [id number] [place], [place] [address]Dr. Anisa Gomez Clarity (U) CLEAR Normal CLEAR [facility] Comment on above: Performed By: #### E RUR ####[facility] [address] [place], [place] [address]Dr. Anisa Gomez Color (U) LT. YELLOW Normal YELLOW [facility] Comment on above: Performed By: #### E RUR ####[facility] [id number] [place], [place] [address]DrCathy OVERTOND A micrscopic examina tion will be performed if indicated. Normal [facility] Comment on above: Performed By: #### E RUR ####[facility] [address]so[address] [place], [place] [address]Dr. Anisa Gomez Glucose Ql (U) Negative Normal NEGATIVE [facility] Comment on above: Performed By: #### E RUR ####[facility] [id number] [place], [place] [address]Dr. Anisa Gomez Hemoglobin Ql (U) Negative Normal NEGATIVE [facility] Comment on above: Performed By: #### E RUR ####[facility] [address] [place], [place] [address]Dr. Anisa Gomez Ketones Ql (U) Negative Normal NEGATIVE [facility] Comment on above: Performed By: #### E RUR ####[facility] In[address] [place], [place] [address]Dr. Anisa Gomez LEUKOCYTES Negative Normal NEGATIVE [facility] Comment on above: Performed By: #### E RUR ####[facility] [id number] [place], [place] [address]Dr. Anisa Gomez Nitrite Ql (U) Negative Normal NEGATIVE [facility] Comment on above: Performed By: #### E RUR ####[facility] [address] [place], [place] [address]Dr. Anisa Gomez pH (U) 5.5 [pH] Normal 5-9 [facility] Comment on above: Performed By: #### E RUR ####[facility] [id number] [place], [place] [address]Dr. Anisa Gomez SPEC GRAVITY >=1.030 Abnormal 1.005-<=1. 025 [facility] Comment on above: Performed By: #### E RUR ####[facility] [address] [place], [place] [address]Dr. Anisa Gomez UA PROTEIN Negative Normal NEGATIVE/ TRACE [facility] Comment on above: Performed By: #### E RUR ####[facility] X[address] [place], [place] [address]Dr. Anisa Jason UR MICRO IND NOT INDICATED Normal [facility] Comment on above: Performed By: #### E RUR ####[facility] [address] [place], [place] [address]Dr. Anisa Jason Urobilinogen Qn (U) 0.2 {Agustin'U}/dL Normal 0.2 - 1. 0 [facility] Comment on above: Performed By: #### E RUR ####[facility] [address] [address]. Anisa Gomez LIPASEon 11-11-2022 Lipase [Catalytic activity/Vol] 100.0 U/L Normal 73.0-393.0 [facility] Comment on above: Performed By: #### L IVKAMRAN LIPA #### [facility] [address] [place] [address] Dr. Anisa Gomez LIVER PROFILEon 11-11-2022 Albumin [Mass/Vol] 3.8 g/dL Normal 3.4-5.0 [facility] Comment on above: Performed By: #### L YAMILE LIPA #### [facility] [address] [place] [address] Dr. Anisa Gomez Albumin/Globulin [Mass ratio] 0.9 {ratio} Normal [facility] Comment on above: Performed By: #### L IVKAMRAN LIPA #### [facility] [address] [place] [address] Dr. Anisa Gomez ALP [Catalytic activity/Vol] 107 U/L Normal 46-116 [facility] Comment on above: Performed By: #### L IVKAMRAN LIPA #### [facility] [address] [place] [address] Dr. Anisa Gomez ALT [Catalytic activity/Vol] 25 U/L Normal 14-59 [facility] Comment on above: Performed By: #### L IVKAMRAN, LIPA #### [facility] [address] [place] [address] Dr. Anisa Gomez AST [Catalytic activity/Vol] 25 U/L Normal 15-37 [facility] Comment on above: Performed By: #### L IVKAMRAN, LIPA #### [facility] [address] [place] [address] Dr. Anisa Gomez BILI, CONJUGATED 0.1 mg/dL Normal 0.0-0.2 [facility] Comment on above: Performed By: #### L IVKAMRAN LIPA #### [facility] [address] [place] [address] Dr. Anisa oGmez Bilirubin [Mass/Vol] 0.5 mg/dL Normal 0.2-1.0 [facility] Comment on above: Performed By: #### L IVER, LIPA #### [facility] [address] [place] [address] Dr. Anisa Gomez Globulin (S) [Mass/Vol] 4.0 g/dL Normal [facility] Comment on above: Performed By: #### L IVKAMRAN, LIPA #### [facility] [address] [place] [address] Dr. Anisa Gomez Protein [Mass/Vol] 7.8 g/dL Normal 6.4-8.2 [facility] Comment on above: Performed By: #### L YAMILE LIPA #### [facility] [address] [place] [address] Dr. Anisa Gomez PROF CHEM 8 (BAS METB)on Anion gap [Moles/Vol] 13.2 mmol/L Normal [facility] Comment on above: Performed By: #### B MP #### [facility] [address] [place] [address] Dr. Anisa Gomez Calcium [Mass/Vol] 9.4 mg/dL Normal 8.5-10.1 [facility] Comment on above: Performed By: #### B MP #### [facility] [address] [place] [address] Dr. Anisa Gomez Chloride [Moles/Vol] 103 mmol/L Normal 98-107 [facility] Comment on above: Performed By: #### B MP #### [facility] [address] [place] [address] Dr. Anisa Gomez CO2 [Moles/Vol] 29.3 mmol/L Normal 21.0-32.0 [facility] Comment on above: Performed By: #### B MP #### [facility] [address] [place] [address] Dr. Anisa Gomez Creatinine [Mass/Vol] 1.02 mg/dL Normal 0.55-1.02 [facility] Comment on above: Performed By: #### B MP #### [facility] [address] [address] [address] Anisa Gomez EGFR-AF MARTINIQUAIS 60 mL/min/1.73m2 Normal >=60 [facility] Comment on above: Performed By: #### B MP #### [facility] [address] [address] [address] Anisa Gomez EGFR-NON AF MARTINIQUAIS 54 mL/min/1.73m2 Critically low >=60 [facility] Comment on above: Performed By: #### B MP #### [facility] [address] [address] [address] Anisa Gomez Glucose [Mass/Vol] 102 mg/dL Normal 74-106 [facility] Comment on above: Performed By: #### B MP #### [facility] [address] [address] [address] Anisa Gomez Potassium [Moles/Vol] 4.5 mmol/L Normal 3.5-5.1 [facility] Comment on above: Performed By: #### B MP #### [facility] [address] [address] [address] Anisa Gomez Sodium [Moles/Vol] 141 mmol/L Normal 136-145 [facility] Comment on above: Performed By: #### B MP #### [facility] [address] [address] [address] Anisa Gomez Urea nitrogen [Mass/Vol] 16.0 mg/dL Normal 7.0-18.0 [facility] Comment on above: Performed By: #### B MP #### [facility] [address] [address] [address] Anisa Gomez Urea nitrogen/Creatinine [Mass ratio] 15.7 mg/mg Normal [facility] Comment on above: Performed By: #### B MP #### [facility] [address] [address] CHEST WO CONon [...] is recommended for better evaluation. Normal [facility] HEMOGLOBINon 10-27-2022 Hemoglobin (Bld) [Mass/Vol] 14.5 g/dL Normal 12.0-16.0 [facility] Comment on above: Performed By: #### H GB ####[facility] [address] [place], [place] [address] LUNG CANCER SCREENINGon 0 07-24-2022 [...] mass, effusion, or pneumothorax. VASCULATURE: No abnormality. MADDI: No mass or pathologic adenopathy. MEDIASTINUM: No [...] by: ROMEL ALONZO Date: 2022-07-24 17:20 Normal [facility] MAMM SCREEN 3D BRISSA CADon 07-09-2022 MG MAMM SCREEN 3D BRISSA CAD Patient: BHUPENDRA RUBI Exam Date: 07/09/2022 : 1950 Gender:F Ordering : SHAIKH Eddie HORAN . Admission #: [id number] Family : Order #: [id number] CLICK HERE TO VIEW EXAM RADIOLOGY REPORT [...] Treatments None Family Cancers None LOCATION: [facility] BREAST COMPOSITION: Heterogeneously dense,which may obscure small [...] M.D. on 07/25/2022 at 08:51 Normal [facility] CBC AUTO DIFFon 05-07-2022 BASO # 0.1 103/ul Normal 0.0-0.1 [facility] Comment on above: Performed By: #### C BC #### [facility] [address] [place] [address] Dr. Anisa Gomez Basophils/100 WBC (Bld) 0.7 % Normal 0.2-2.0 [facility] Comment on above: Performed By: #### C BC #### [facility] [address] [place] [address] Dr. Anisa Gomez EO # 0.1 103/ul Normal 0.0-0.7 [facility] Comment on above: Performed By: #### C BC #### [facility] [address] [place] [address] Dr. Anisa Gomez Eosinophils/100 WBC (Bld) 0.6 % Critically low 0.9-7.0 [facility] Comment on above: Performed By: #### C BC #### [facility] [address] [place] [address] Dr. Anisa Gomez Erythrocyte distribution width (RBC) [Ratio] 14.9 % Normal 11.0-15.0 [facility] Comment on above: Performed By: #### C BC #### [facility] [address] [place] [address] Dr. Anisa Gomez Hematocrit (Bld) [Volume fraction] 48.4 % Critically high 36.0-48.0 [facility] Comment on above: Performed By: #### C BC #### [facility] [address] [place] [address] Dr. Anisa Gomez Hemoglobin (Bld) [Mass/Vol] 15.6 g/dL Normal 12.0-16.0 [facility] Comment on above: Performed By: #### C BC #### [facility] [address] [place] [address] Dr. Anisa Gomez IG # 0.02 10e3/ul Normal 0.00-0.03 [facility] Comment on above: Performed By: #### C BC #### [facility] [address] [place] [address] Dr. Anisa Gomez IG % 0.2 % Normal 0.0-0.5 [facility] Comment on above: Performed By: #### C BC #### [facility] [address] [place] [address] Dr. Anisa Gomez LYMPH # 2.9 103/ul Normal 1.2-3.8 [facility] Comment on above: Performed By: #### C BC #### [facility] [address] [place] [address] Dr. Anisa Gomez Lymphocytes/100 WBC (Bld) 28.6 % Normal 20.5-60.0 [facility] Comment on above: Performed By: #### C BC #### [facility] [address] [place] [address] Dr. Anisa Gomez MANUAL DIFF REQ NO Normal [facility] Comment on above: Performed By: #### C BC #### [facility] [address] [place] [address] Dr. Anisa Gomez MCH (RBC) [Entitic mass] 29.2 pg Normal 26.7-34.0 [facility] Comment on above: Performed By: #### C BC #### [facility] [address] [place] [address] Dr. Anisa Gomez MCHC (RBC) [Mass/Vol] 32.2 g/dL Normal 29.9-35.2 [facility] Comment on above: Performed By: #### C BC #### [facility] [address] [address] [address] Anisa Gomez MCV (RBC) [Entitic vol] 90.5 fL Normal 81.0-99.0 [facility] Comment on above: Performed By: #### C BC #### [facility] [address] [address] [address] Anisa Gomez MONO # 1.0 103/ul Critically high 0.3-0.8 [facility] Comment on above: Performed By: #### C BC #### [facility] [address] [place] [address] Dr. Anisa Gomez Monocytes/100 WBC (Bld) 9.5 % Normal 1.7-12.0 [facility] Comment on above: Performed By: #### C BC #### [facility] [address] [place] [address] Dr. Anisa Gomez NEUT # 6.2 103/ul Normal 1.4-6.5 [facility] Comment on above: Performed By: #### C BC #### [facility] [address] [place] [address] Dr. Anisa Gomez Neutrophils/100 WBC (Bld) 60.4 % Normal 43.0-75.0 [facility] Comment on above: Performed By: #### C BC #### [facility] [address] [place] [address] Dr. Anisa Gomez Platelet mean volume (Bld) [Entitic vol] 10.1 fL Normal 9.5-13.5 [facility] Comment on above: Performed By: #### C BC #### [facility] [address] [place] [address] Dr. Anisa Gomez PLT 403 103/ul Normal 150-450 [facility] Comment on above: Performed By: #### C BC #### [facility] [address] [place] [address] Dr. Anisa Gomez RBC 5.35 106/ul Normal 4.20-5.40 [facility] Comment on above: Performed By: #### C BC #### [facility] [address] [place], [place] [address] Dr. Anisa Gomez WBC 10.2 103/ul Normal 4.0-11.0 [facility] Comment on above: Performed By: #### C BC #### [facility] [address] [address] [address] Anisa Gomez LIPID PROFILEon 05-07-2022 CHOL-HDL RATIO NORM SEE BELOW Normal [facility] Comment on above: Result Comment: 3.3 - 4.4 LOW RISK 4.4 - 7.1 AVERAGE RISK 7.1 - 11.0 MODERATE RISK >11.0 HIGH RISK Performed By: #### L IPID, CMP ####[facility] [address] [address]Dr. Anisa Gomez Cholesterol [Mass/Vol] 242 mg/dL Critically high <=200 [facility] Comment on above: Performed By: #### L IPID, CMP ####[facility] [id number] [address]Dr. Anisa Gomez Cholesterol in HDL [Mass/Vol] 49 mg/dL Normal 40-60 [facility] Comment on above: Performed By: #### L IPID, CMP ####[facility] [address] [address]Dr. Anisa Gomez Cholesterol in LDL [Mass/Vol] 148.4 mg/dL Normal [facility] Comment on above: Performed By: #### L IPID, CMP ####[facility] [id number] [id number] Anisa Gomez Cholesterol.total/Joanne sterol in HDL [Mass ratio] 4.9 {ratio} Normal [facility] [facility] Comment on above: Performed By: #### L IPID, CMP ####[facility] [id number] [id number]. Cherryann Gomez HDL NORMAL > or = 60 mg/dl - LO W CARDIOVASCULAR RISK <40 mg/dl - HIGH CARDIOVASCULAR RISK Normal [facility] Comment on above: Performed By: #### L IPID, CMP ####[facility] [id number] [address]Dr. Anisa Gomez LDL CALC NORMAL SEE BELOW Normal [facility] Comment on above: Result Comment: <100 mg/dl OPTIMAL 100 - 129 mg/dl NEAR OR ABOVE OPTIMAL 130 - 159 mg/dl BORDERLINE HIGH 160 - 189 mg/dl HIGH >190 mg/dl VERY HIGH Performed By: #### L IPID, CMP ####[facility] [id number] [place], [place] [address]Dr. Anisa Gomez Triglyceride [Mass/Vol] 223 mg/dL Critically high <=150 [facility] Comment on above: Performed By: #### L IPID, CMP ####[facility] [id number] [place], [place] [address]Dr. Anisa Gomez VLDL CALC 44.6 mg/dL Normal [facility] Comment on above: Performed By: #### L IPID, CMP ####[facility] [id number] [place], [place] [address]Dr. Anisa Gomez PROF 14(COMP METB)on 022 Albumin [Mass/Vol] 3.6 g/dL Normal 3.4-5.0 [facility] Comment on above: Performed By: #### L IPID, CMP ####[facility] [id number] [place], [place] [address]Dr. Anisa Gomez Albumin/Globulin [Mass ratio] 1.0 {ratio} Normal [facility] Comment on above: Performed By: #### L IPID, CMP ####[facility] [id number] [place], [place] [address]Dr. Anisa Gomez ALP [Catalytic activity/Vol] 95 U/L Normal 46-116 [facility] Comment on above: Performed By: #### L IPID, CMP ####[facility] [id number] [place], [place] [address]Dr. Anisa Gomez ALT [Catalytic activity/Vol] 21 U/L Normal 14-59 [facility] Comment on above: Performed By: #### L IPID, CMP ####[facility] [id number] [place], [place] [address]Dr. Anisa Gomez Anion gap [Moles/Vol] 6.3 mmol/L Normal [facility] Comment on above: Performed By: #### L IPID, CMP ####[facility] [id number] [place], [place] [address]Dr. Anisa Gomez AST [Catalytic activity/Vol] 15 U/L Normal 15-37 [facility] Comment on above: Performed By: #### L IPID, CMP ####[facility] [id number] [place], [place] [address]Dr. Anisa Gomez Bilirubin [Mass/Vol] 0.5 mg/dL Normal 0.2-1.0 [facility] Comment on above: Performed By: #### L IPID, CMP ####[facility] [id number] [place], [place] [address]Dr. Anisa Gomez Calcium [Mass/Vol] 9.1 mg/dL Normal 8.5-10.1 [facility] Comment on above: Performed By: #### L IPID, CMP ####[facility] [id number] [place], [place] [address]Dr. Anisa Gomez Chloride [Moles/Vol] 104 mmol/L Normal 98-107 [facility] Comment on above: Performed By: #### L IPID, CMP ####[facility] [id number] [place], [place] [address]Dr. Anisa Gomez CO2 [Moles/Vol] 33.4 mmol/L Critically high 21.0-32.0 [facility] Comment on above: Performed By: #### L IPID, CMP ####[facility] K[address]tw[address] [place], [place] [address]Dr. Anisa Gomez Creatinine [Mass/Vol] 0.90 mg/dL Normal 0.55-1.02 [facility] Comment on above: Performed By: #### L IPID, CMP ####[facility] [id number] [place], [place] [address]Dr. Anisa Gomez EGFR-AF MARTINIQUAIS >60 Normal >=60 [facility] Comment on above: Performed By: #### L IPID, CMP ####[facility] C[address]zt[address] [place], [place] [address]Dr. Anisa Gomez EGFR-NON AF MARTINIQUAIS >60 Normal >=60 [facility] Comment on above: Performed By: #### L IPID, CMP ####[facility] [address] [address]Dr. Anisa Gomez Globulin (S) [Mass/Vol] 3.7 g/dL Normal T [facility] Comment on above: Performed By: #### L IPID, CMP ####[facility] Heaxxokzxz[address] [place], [place] [address]Dr. Anisa Gomez Glucose [Mass/Vol] 67 mg/dL Critically low 74-106 [facility] Comment on above: Performed By: #### L IPID, CMP ####[facility] Sk[address] [place], [place] [address]Dr. Anisa Gomez Potassium [Moles/Vol] 3.7 mmol/L Normal 3.5-5.1 [facility] Comment on above: Performed By: #### L IPID, CMP ####[facility] [id number] [place], [place] [address]Dr. Anisa Gomez Protein [Mass/Vol] 7.3 g/dL Normal 6.4-8.2 [facility] Comment on above: Performed By: #### L IPID, CMP ####[facility] Ll[address] [place], [place] [address]Dr. Anisa Gomez Sodium [Moles/Vol] 140 mmol/L Normal 136-145 [facility] Comment on above: Performed By: #### L IPID, CMP ####[facility] [id number] [place], [place] [address]Dr. Anisa Gomez Urea nitrogen [Mass/Vol] 13.0 mg/dL Normal 7.0-18.0 [facility] Comment on above: Performed By: #### L IPID, CMP ####[facility] [address] [place], [place] [address]Dr. Anisa Gomez Urea nitrogen/Creatinine [Mass ratio] 14.4 mg/mg Normal [facility] Comment on above: Performed By: #### L IPID, CMP ####[facility] [address] [address]Dr. Anisa Gomez UA RANDOM W/MICROSCOPICon BACTERIA NONE SEEN Normal NONE SEEN [facility] Comment on above: Performed By: #### U AMIC #### [facility] [address] [address] [address] Anisa Gomez Bilirubin Ql (U) Negative Normal NEGATIVE [facility] Comment on above: Performed By: #### U AMIC #### [facility] [address] [address] [address] Anisa Gomez CAST NONE SEEN Normal NONE SEEN [facility] Comment on above: Performed By: #### U AMIC #### [facility] [address] [place] [address] Dr. Anisa Gomez Clarity (U) CLEAR Normal CLEAR [facility] Comment on above: Performed By: #### U AMIC #### [facility] [address] [place] [address] Dr. Anisa Gomez Color (U) YELLOW Normal YELLOW [facility] Comment on above: Performed By: #### U AMIC #### [facility] [address] [address] [address] Anisa Gomez Crystals LM Nom (Urine sed) NONE SEEN Normal NONE SEEN [facility] Comment on above: Performed By: #### U AMIC #### [facility] [address] [place] [address] Dr. Anisa Gomez Epithelial cells LM Ql (Urine sed) RARE Normal NONE SEEN /RARE [facility] Comment on above: Performed By: #### U AMIC #### [facility] [address] [address] [address] Anisa Gomez Glucose Ql (U) Negative Normal NEGATIVE [facility] Comment on above: Performed By: #### U AMIC #### [facility] [address] [address] [address] Anisa Gomez Hemoglobin Ql (U) Negative Normal NEGATIVE [facility] Comment on above: Performed By: #### U AMIC #### [facility] [address] [place] [address] Dr. Anisa Gomez Ketones Ql (U) Negative Normal NEGATIVE [facility] Comment on above: Performed By: #### U AMIC #### [facility] [address] [place] [address] Dr. Anisa Gomez LEUKOCYTES Negative Normal NEGATIVE [facility] Comment on above: Performed By: #### U AMIC #### [facility] [address] [place] [address] Dr. Anisa Gomez MUCOUS NONE SEEN Normal NONE SEEN [facility] Comment on above: Performed By: #### U AMIC #### [facility] [address] [place] [address] Dr. Anisa Gomez Nitrite Ql (U) Negative Normal NEGATIVE [facility] Comment on above: Performed By: #### U AMIC #### [facility] [address] [place] [address] Dr. Anisa Gomez pH (U) 7.0 [pH] Normal 5-9 [facility] Comment on above: Performed By: #### U AMIC #### [facility] [address] [place] [address] Dr. Anisa Gomez RBC 0-2 Normal 0-2 [facility] Comment on above: Performed By: #### U AMIC #### [facility] [address] [place] [address] Dr. Anisa Gomez SPEC GRAVITY 1.010 Normal 1.005-<=1. 025 [facility] Comment on above: Performed By: #### U AMIC #### [facility] [address] [place] [address] Dr. Anisa Gomez UA PROTEIN Negative Normal NEGATIVE/ TRACE [facility] Comment on above: Performed By: #### U AMIC #### [facility] [address] [place] [address] Dr. Anisa Gomez Urobilinogen Qn (U) 0.2 {Agustin'U}/dL Normal 0.2 - 1. 0 [facility] Comment on above: Performed By: #### U AMIC #### [facility] [address] [place] [address] Dr. Anisa Gomez WBC 0-2 Abnormal NONE SEEN [facility] Comment on above: Performed By: #### U [facility] #### [facility] [address] [address] [address] Anisa Gomez Vital Signs Date Time Vital Sign Value Performing Clinician Facility 02-22-2025 10:50-0400 Body mass index (BMI) [Ratio] 25.2 kg/m2 Wendy Aichholz [employer] Work Phone: [facility] 02-22-2025 10:50-0400 Body temperature 98.1 [degF] Wendy Aichholz [employer] Work Phone: [facility] 02-22-2025 10:50-0400 Body weight 62.51 kg Wendy Aichholz [employer] Work Phone: [facility] 02-22-2025 10:50-0400 Diastolic blood pressure 50 mm[Hg] Wendy Aichholz [employer] Work Phone: [facility] 02-22-2025 10:50-0400 Heart rate 88 /min Wendy Aichholz [employer] Work Phone: [facility] 02-22-2025 10:50-0400 SaO2% (BldA) [Mass fraction] 94 % Wendy Aichholz [employer] Work Phone: [facility] 02-22-2025 10:50-0400 Systolic blood pressure 98 mm[Hg] Wendy Aichholz [employer] Work Phone: [facility] 02-14-2025 17:24-0400 Heart rate 73 /min Wendy Aichholz Work Phone: [facility] 02-14-2025 17:24-0400 Respiratory rate 18 /min Wendy Aichholz Work Phone: [facility] 02-14-2025 17:24-0400 SaO2% (BldA) [Mass fraction] 89 % Wendy Aichholz Work Phone: [facility] 02-14-2025 16:32-0400 Body temperature 98.1 [degF] Wendy Aichholz Work Phone: [facility] 02-14-2025 16:32-0400 Diastolic blood pressure 75 mm[Hg] Wendy Aichholz Work Phone: [facility] 02-14-2025 16:32-0400 Systolic blood pressure 172 mm[Hg] Wendy Aichholz Work Phone: [facility] 02-14-2025 14:07-0400 Inhaled oxygen flow rate 2 L/min Wendy Aichholz Work Phone: [facility] 02-14-2025 06:00-0400 Body weight 62.1 kg Wendy Aichholz Work Phone: [facility] 02-13-2025 15:50-0400 Body height 157.48 cm Wendy Aichholz Work Phone: [facility] 02-11-2025 18:00-0400 Diastolic blood pressure 61 mm[Hg] [facility] 02-11-2025 18:00-0400 Heart rate 68 /min [facility] 02-11-2025 18:00-0400 Inhaled oxygen flow rate 4 L/min [facility] 02-11-2025 18:00-0400 Respiratory rate 14 /min [facility] 02-11-2025 18:00-0400 SaO2% (BldA) [Mass fraction] 99 % [facility] 02-11-2025 18:00-0400 Systolic blood pressure 130 mm[Hg] [facility] 02-11-2025 12:49-0400 Body height 157.48 cm [facility] 02-11-2025 12:49-0400 Body weight 65 kg [facility] 02-11-2025 12:41-0400 Body temperature 97.7 [degF] [facility] 02-07-2025 09:38-0400 Body height 157.5 cm Neyda Lockwood MD Work Phone: [facility] 02-07-2025 09:38-0400 Body mass index (BMI) [Ratio] 27.25 kg/m2 Neyda Lockwood MD Work Phone: [facility] 02-07-2025 09:38-0400 Body weight 67.59 kg Neyda Lockwood MD Work Phone: [facility] 01-26-2025 10:27-0400 Body mass index (BMI) [Ratio] 25.72 kg/m2 Wendy Jenise [employer] Work Phone: [facility] 01-26-2025 10:27-0400 Body temperature 97.81 [degF] Wendy Suadz [employer] Work Phone: [facility] 01-26-2025 10:27-0400 Body weight 63.78 kg Wendy Suadz [employer] Work Phone: [facility] 01-26-2025 10:27-0400 Diastolic blood pressure 84 mm[Hg] Wendy Suadz [employer] Work Phone: [facility] 01-26-2025 10:27-0400 Heart rate 96 /min Wendy Suadz [employer] Work Phone: [facility] 01-26-2025 10:27-0400 Respiratory rate 20 /min Wendy Chintanholz [employer] Work Phone: [facility] 01-26-2025 10:27-0400 SaO2% (BldA) [Mass fraction] 93 % Wendy Suadz [employer] Work Phone: [facility] 01-26-2025 10:27-0400 Systolic blood pressure 140 mm[Hg] Wendy Suadz [employer] Work Phone: [facility] 01-04-2025 10:51-0400 Body height 157.48 cm Hipolito Shha APRN Work Phone: [facility] 01-04-2025 10:51-0400 Body mass index (BMI) [Ratio] 27.4 kg/m2 Hipolito Shah APRN Work Phone: [facility] 01-04-2025 10:51-0400 Body temperature 98.6 [degF] Hipolito Shah APRN Work Phone: [facility] 01-04-2025 10:51-0400 Body weight 68.03 kg Hipolito Shah APRN Work Phone: [facility] 01-04-2025 10:51-0400 Diastolic blood pressure 76 mm[Hg] Hipolito Shah APRN Work Phone: [facility] 01-04-2025 10:51-0400 Heart rate 89 /min Hipolito Shah APRN Work Phone: [facility] 01-04-2025 10:51-0400 Respiratory rate 16 /min Hipolito Shah APRN Work Phone: [facility] 01-04-2025 10:51-0400 SaO2% (BldA) [Mass fraction] 90 % Hipolito Shah APRN Work Phone: [facility] 01-04-2025 10:51-0400 Systolic blood pressure 122 mm[Hg] Hipolito Shah APRN Work Phone: [facility] 12-21-2024 16:27-0400 Body mass index (BMI) [Ratio] 27 kg/m2 Wendytrupti Burden [employer] Work Phone: [facility] 12-21-2024 16:27-0400 Body temperature 98.29 [degF] Wendy Jenise [employer] Work Phone: [facility] 12-21-2024 16:27-0400 Body weight 66.95 kg Wendy Jenise [employer] Work Phone: [facility] 12-21-2024 16:27-0400 Diastolic blood pressure 66 mm[Hg] Wendy Jenise [employer] Work Phone: [facility] 12-21-2024 16:27-0400 Heart rate 104 /min Wendy Aichholz [employer] Work Phone: [facility] 12-21-2024 16:27-0400 Respiratory rate 18 /min Wendy Aichholz [employer] Work Phone: [facility] 12-21-2024 16:27-0400 SaO2% (BldA) [Mass fraction] 93 % Wendy Aichholz [employer] Work Phone: [facility] 12-21-2024 16:27-0400 Systolic blood pressure 98 mm[Hg] Wendy Aichholz [employer] Work Phone: [facility] 10-27-2024 10:38-0400 Body mass index (BMI) [Ratio] 28.06 kg/m2 Wendy Aichholz [employer] Work Phone: [facility] 10-27-2024 10:38-0400 Body temperature 98.49 [degF] Wendy Aichholz [employer] Work Phone: [facility] 10-27-2024 10:38-0400 Body weight 69.58 kg Wendy Aichholz [employer] Work Phone: [facility] 10-27-2024 10:38-0400 Diastolic blood pressure 78 mm[Hg] Wendy Aichholz [employer] Work Phone: [facility] 10-27-2024 10:38-0400 Heart rate 96 /min Wendy Aichholz [employer] Work Phone: [facility] 10-27-2024 10:38-0400 Respiratory rate 20 /min Wendy Aichholz [employer] Work Phone: [facility] 10-27-2024 10:38-0400 SaO2% (BldA) [Mass fraction] 89 % Wendy Aichholz [employer] Work Phone: [facility] 10-27-2024 10:38-0400 Systolic blood pressure 112 mm[Hg] Wendy Aichholz [employer] Work Phone: [facility] 09-26-2024 10:21-0400 Body height 157.5 cm Kianna Lowe PA Work Phone: [facility] 09-26-2024 10:21-0400 Body mass index (BMI) [Ratio] 27.44 kg/m2 Kianna Lowe PA Work Phone: [facility] 09-26-2024 10:21-0400 Body weight 68.04 kg Kianna Lowe PA Work Phone: [facility] 09-26-2024 10:21-0400 Diastolic blood pressure 84 mm[Hg] Kianna Lowe PA Work Phone: [facility] 09-26-2024 10:21-0400 Systolic blood pressure 138 mm[Hg] Kianna Lowe PA Work Phone: [facility] 08-02-2024 11:57-0500 Body height 157.5 cm Romel Sampson MD Work Phone: [facility] 08-02-2024 11:57-0500 Body mass index (BMI) [Ratio] 27.8 kg/m2 Romel Sampson MD Work Phone: [facility] 08-02-2024 11:57-0500 Body weight 68.95 kg Romel Sampson MD Work Phone: [facility] 08-02-2024 11:57-0500 Diastolic blood pressure 84 mm[Hg] Romel Sampson MD Work Phone: [facility] 08-02-2024 11:57-0500 Systolic blood pressure 118 mm[Hg] Romel Sampson MD Work Phone: [facility] 08-02-2024 10:51-0500 Body height 157.5 cm Chris Singh [employer] Work Phone: [facility] 08-02-2024 10:51-0500 Body mass index (BMI) [Ratio] 28.53 kg/m2 Chris Craigzpatrick [employer] Work Phone: [facility] 08-02-2024 10:51-0500 Body temperature 97.11 [degF] Chris Singh [employer] Work Phone: [facility] 08-02-2024 10:51-0500 Body weight 70.76 kg Chris Singh [employer] Work Phone: [facility] 08-02-2024 10:51-0500 Diastolic blood pressure 76 mm[Hg] Chris Singh [employer] Work Phone: [facility] 08-02-2024 10:51-0500 Heart rate 107 /min Chris Singh [employer] Work Phone: [facility] 08-02-2024 10:51-0500 Respiratory rate 16 /min Chris Singh [employer] Work Phone: [facility] 08-02-2024 10:51-0500 SaO2% (BldA) [Mass fraction] 95 % Chris Singh [employer] Work Phone: [facility] 08-02-2024 10:51-0500 Systolic blood pressure 128 mm[Hg] Chris Singh [employer] Work Phone: [facility] 07-28-2024 14:17-0500 Body height 159.51 cm Shaikh Aung FARFAN Work Phone: [facility] 07-28-2024 14:17-0500 Body mass index (BMI) [Ratio] 27.2 kg/m2 Shaikh Aung FARFAN Work Phone: [facility] 07-28-2024 14:17-0500 Body temperature 97.1 [degF] Shaikh Aung FARFAN Work Phone: [facility] 07-28-2024 14:17-0500 Body weight 69.39 kg Shaikh Aung FARFAN Work Phone: [facility] 07-28-2024 14:17-0500 Diastolic blood pressure 83 mm[Hg] Shaikh Aung FARFAN Work Phone: [facility] 07-28-2024 14:17-0500 Heart rate 97 /min Shaikh Aung FARFAN Work Phone: [facility] 07-28-2024 14:17-0500 Respiratory rate 18 /min Shaikh Aung FARFAN Work Phone: [facility] 07-28-2024 14:17-0500 SaO2% (BldA) [Mass fraction] 93 % Shaikh Aung FARFAN Work Phone: [facility] 07-28-2024 14:17-0500 Systolic blood pressure 143 mm[Hg] Shaikh Aung FARFAN Work Phone: [facility] 05-23-2024 10:17-0500 Body height 157.5 cm Chris Singh [employer] Work Phone: [facility] 05-23-2024 10:17-0500 Body mass index (BMI) [Ratio] 28.9 kg/m2 Chris Singh [employer] Work Phone: [facility] 05-23-2024 10:17-0500 Body temperature 96.8 [degF] Chris Singh [employer] Work Phone: [facility] 05-23-2024 10:17-0500 Body weight 71.67 kg Chris Singh [employer] Work Phone: [facility] 05-23-2024 10:17-0500 Diastolic blood pressure 84 mm[Hg] Chris Singh [employer] Work Phone: [facility] 05-23-2024 10:17-0500 Heart rate 78 /min Chris Singh [employer] Work Phone: [facility] 05-23-2024 10:17-0500 Respiratory rate 16 /min Chris Singh [employer] Work Phone: [facility] 05-23-2024 10:17-0500 SaO2% (BldA) [Mass fraction] 90 % Chris Craigzpatrick [employer] Work Phone: [facility] 05-23-2024 10:17-0500 Systolic blood pressure 128 mm[Hg] Chris Buchananpatrick [employer] Work Phone: [facility] 05-11-2024 14:25-0400 Body height 157.48 cm MD Shaikh Horan Work Phone: [facility] 05-11-2024 14:25-0400 Body mass index (BMI) [Ratio] 28.5 kg/m2 MD Shaikh Horan Work Phone: [facility] 05-11-2024 14:25-0400 Body temperature 97.8 [degF] MD Shaikh Horan Work Phone: [facility] 05-11-2024 14:25-0400 Body weight 70.76 kg MD Shaikh Horan Work Phone: [facility] 05-11-2024 14:25-0400 Diastolic blood pressure 78 mm[Hg] MD Shaikh Horan Work Phone: [facility] 05-11-2024 14:25-0400 Heart rate 89 /min MD Shaikh Horan Work Phone: [facility] 05-11-2024 14:25-0400 Respiratory rate 16 /min MD Shaikh Horan Work Phone: [facility] 05-11-2024 14:25-0400 SaO2% (BldA) [Mass fraction] 95 % MD Shaikh Horan Work Phone: [facility] 05-11-2024 14:25-0400 Systolic blood pressure 134 mm[Hg] MD Shaikh Horan Work Phone: [facility] 05-10-2024 14:01-0400 Body height 157.5 cm Javier Villanueva DO Work Phone: [facility] 05-10-2024 14:01-0400 Body mass index (BMI) [Ratio] 27.62 kg/m2 Javier Villanueva DO Work Phone: [facility] 05-10-2024 14:01-0400 Body weight 68.49 kg Javier Villanueva DO Work Phone: [facility] 05-10-2024 14:01-0400 Diastolic blood pressure 90 mm[Hg] Javier Villanueva DO Work Phone: [facility] 05-10-2024 14:01-0400 Systolic blood pressure 130 mm[Hg] Javier Villanueva DO Work Phone: [facility] 03-25-2024 11:45-0400 Diastolic blood pressure 90 mm[Hg] MD Shaikh Horan Work Phone: [facility] 03-25-2024 11:45-0400 Heart rate 85 /min MD Shaikh Horan Work Phone: [facility] 03-25-2024 11:45-0400 Respiratory rate 20 /min MD Shaikh Horan Work Phone: [facility] 03-25-2024 11:45-0400 SaO2% (BldA) [Mass fraction] 95 % MD Shaikh Horan Work Phone: [facility] 03-25-2024 11:45-0400 Systolic blood pressure 152 mm[Hg] MD Shaikh Horan Work Phone: [facility] 03-25-2024 10:06-0400 Body height 157.48 cm MD Shaikh Horan Work Phone: [facility] 03-25-2024 10:06-0400 Body weight 65.77 kg MD Shaikh Horan Work Phone: [facility] 03-24-2024 11:14-0400 Body height 157.5 cm Chris Singh [employer] Work Phone: [facility] 03-24-2024 11:14-0400 Body mass index (BMI) [Ratio] 27.25 kg/m2 Chris Singh [employer] Work Phone: [facility] 03-24-2024 11:14-0400 Body temperature 98.91 [degF] Chris Singh [employer] Work Phone: [facility] 03-24-2024 11:14-0400 Body weight 67.59 kg Chris Singh [employer] Work Phone: [facility] 03-24-2024 11:14-0400 Diastolic blood pressure 80 mm[Hg] Chris Singh [employer] Work Phone: [facility] 03-24-2024 11:14-0400 Heart rate 96 /min Chris Singh [employer] Work Phone: [facility] Comment on above: 93% O2 03-24-2024 11:14-0400 Systolic blood pressure 116 mm[Hg] Chris Singh [employer] Work Phone: [facility] 12-30-2023 09:35-0400 Body height 157.48 cm MD Shaikh Horan Work Phone: [facility] 12-30-2023 09:35-0400 Body mass index (BMI) [Ratio] 27.4 kg/m2 MD Shaikh Horan Work Phone: [facility] 12-30-2023 09:35-0400 Body temperature 97.3 [degF] MD Shaikh Horan Work Phone: [facility] 12-30-2023 09:35-0400 Body weight 68.03 kg MD Shaikh Horan Work Phone: [facility] 12-30-2023 09:35-0400 Diastolic blood pressure 50 mm[Hg] MD Shaikh Horan Work Phone: [facility] 12-30-2023 09:35-0400 Heart rate 106 /min MD Shaikh Horan Work Phone: [facility] 12-30-2023 09:35-0400 Respiratory rate 18 /min MD Shaikh Horan Work Phone: [facility] 12-30-2023 09:35-0400 SaO2% (BldA) [Mass fraction] 85 % MD Shaikh Horan Work Phone: [facility] 12-30-2023 09:35-0400 Systolic blood pressure 76 mm[Hg] MD Shaikh Horan Work Phone: [facility] 12-27-2023 15:46-0400 Diastolic blood pressure 57 mm[Hg] MD Shaikh Horan Work Phone: [facility] 12-27-2023 15:46-0400 Heart rate 65 /min MD Shaikh Horan Work Phone: [facility] 12-27-2023 15:46-0400 Respiratory rate 20 /min MD Shaikh Horan Work Phone: [facility] 12-27-2023 15:46-0400 Systolic blood pressure 112 mm[Hg] MD Shaikh Horan Work Phone: [facility] 12-27-2023 14:59-0400 Inhaled oxygen flow rate 2 L/min MD Shaikh Horan Work Phone: [facility] 12-27-2023 14:59-0400 SaO2% (BldA) [Mass fraction] 92 % MD Shaikh Horan Work Phone: [facility] 12-27-2023 11:20-0400 Body temperature 97.7 [degF] MD Shaikh Horan Work Phone: [facility] 12-27-2023 10:48-0400 Body height 157.48 cm MD Shaikh Horan Work Phone: [facility] 12-27-2023 10:48-0400 Body weight 70.8 kg MD Shaikh Horan Work Phone: [facility] 03-25-2023 10:00-0400 Body height 157.48 cm Nigel Valladares Other [facility] Other 03-25-2023 10:00-0400 Body mass index (BMI) [Ratio] 27.43 kg/m2 Nigel Valladares Other [facility] Other 03-25-2023 10:00-0400 Body temperature 97.2 [degF] Nigel Valladares Other [facility] Other 03-25-2023 10:00-0400 Body weight 68.04 kg Nigel Valladares Other [facility] Other 03-25-2023 10:00-0400 Diastolic blood pressure 82 mm[Hg] Nigel Valladares Other [facility] Other 03-25-2023 10:00-0400 SaO2% (BldA) [Mass fraction] 91 % Nigel Valladares Other [facility] Other 03-25-2023 10:00-0400 Systolic blood pressure 158 mm[Hg] Nigel Valladares Other [facility] Other 02-09-2023 11:00-0400 Body height 157.48 cm Cherelle Bautista Other [facility] Other 02-09-2023 11:00-0400 Body mass index (BMI) [Ratio] 27.43 kg/m2 Cherelle Bautista Other [facility] Other 02-09-2023 11:00-0400 Body temperature 97.6 [degF] Cherelle Bautista Other [facility] Other 02-09-2023 11:00-0400 Body weight 68.04 kg Cherelle Bautista Other [facility] Other 02-09-2023 11:00-0400 Diastolic blood pressure 74 mm[Hg] Cherelle Bautista Other [facility] Other 02-09-2023 11:00-0400 SaO2% (BldA) [Mass fraction] 92 % Cherelle Bautista Other [facility] Other 02-09-2023 11:00-0400 Systolic blood pressure 122 mm[Hg] Cherelle Singhingridjaciel Other [facility] Other 12-24-2022 10:00-0400 Diastolic blood pressure 86 mm[Hg] Brigette Martini [facility] 12-24-2022 10:00-0400 Mean blood pressure 106 mm[Hg] Brigette Esparzametz [facility] 12-24-2022 10:00-0400 Systolic blood pressure 146 mm[Hg] Brigette Martini [facility] 12-24-2022 09:57-0400 Blood Pressure Location Brigette Martini [facility] 12-24-2022 09:57-0400 Body temperature 97.52 [degF] Brigette Martini [facility] 12-24-2022 09:57-0400 Diastolic blood pressure 82 mm[Hg] Brigette Martini [facility] 12-24-2022 09:57-0400 Heart rate 86 /min Brigette Martini [facility] 12-24-2022 09:57-0400 Systolic blood pressure 150 mm[Hg] Brigette Martini [facility] Encounters Encounter Date Encounter Type Care Provider Facility Start: 02-22-2025 End: 02-22-2025 Office outpatient visit 25 minutes Wendy Burden [employer] Work Phone: [facility] Comment on above: Chronic abdominal pa in (Primary Dx); Seizure (HCC); Cerebrovascular accident (CVA), unspecified mechanism (HCC); Mass of left lung; Adenocarcinoma of left lung (HCC); Infrarenal abdominal aortic aneurysm (AAA) without rupture; Syncope and collapse Start: 02-22-2025 End: 02-22-2025 ambulatory WENDY BURDEN Not Available Start: 02-21-2025 End: 02-21-2025 Bamboo [employer] Sulema Juan [employer] [facility] Start: 02-21-2025 End: 02-21-2025 BamIG G[employer]so [employer] Sulema Eduardoer [employer] [facility] Start: 02-21-2025 End: 02-21-2025 Patient encounter procedure Sulema Juan [employer] [facility] Phone[facility] Comment on above: Inflamed seborrheic keratosis Start: 02-21-2025 End: 02-21-2025 ambulatory SULEMA JUAN Not Available Start: 02-11-2025 End: 02-14-2025 Evaluation and management of inpatient Matteo Zaragoza MD -[facility] [place] [facility] Work Phone: Start: 02-11-2025 [facility] Work Phone: Start: 02-08-2025 End: 02-08-2025 ambulatory Arden De Leon Facility:[facility] Start: 02-07-2025 End: 02-07-2025 Bamboo flowsheet Neyda Lockwood MD Work Phone: [facility] Start: 02-07-2025 End: 02-07-2025 Bamboo flowsheet Neyda Lockwood MD Work Phone: [facility] Start: 02-07-2025 End: 02-07-2025 Office outpatient new 60 minutes Neyda Lockwood MD Work Phone: [facility] Comment on above: Seizure (HCC) (Prima ry Dx); Carotid stenosis, bilateral; Sequelae of cerebral infarction; Gait disturbance; Stroke, lacunar (HCC); Cerebral artery occlusion with cerebral infarction (HCC); Other transient cerebral ischemic attacks and related syndromes; Patent foramen ovale (HHS-HCC); Alteration of awareness Start: 02-07-2025 End: 02-07-2025 ambulatory NEYDA LOCKWOOD Not Available Start: 01-30-2025 End: 01-30-2025 ambulatory WENDY BURDEN Facility:[facility] Start: 01-30-2025 End: 01-30-2025 Patient encounter procedure Arden De Leon [facility] Start: 01-26-2025 End: 01-26-2025 Bamboo flowsheet Wendy Burden [employer] Work Phone: [facility] Start: 01-26-2025 End: 01-26-2025 Bamboo flowsheet Wendy Burden [employer] Work Phone: [facility] Start: 01-26-2025 End: 01-26-2025 Office outpatient visit 25 minutes Wendy Burden NP Work Phone: [facility] Comment on above: Chronic abdominal pa in (Primary Dx); Cerebrovascular accident (CVA), unspecified mechanism (HCC); Malignant neoplasm of unspecified part of left bronchus or lung (HCC); Tobacco dependency; Gastroesophageal reflux disease, unspecified whether esophagitis present; Carcinoma in situ of ascending colon; Primary hypertension ; Cigarette nicotine dependence with nicotine-induced disorder; Adenocarcinoma of left lung (HCC); Infrarenal abdominal aortic aneurysm (AAA) without rupture Start: 01-26-2025 End: 01-26-2025 ambulatory WENDY BURDEN Not Available Start: 01-16-2025 ambulatory Imad Asaad Facility:[facility] Start: 01-16-2025 Registered Recurring Judit mckay MD -[facility] Work Phone: Start: 01-05-2025 Non-patient / Non-visit Yaneth samuel -[facility] Neurology Work Phone: Start: 01-04-2025 End: 01-04-2025 Patient encounter procedure Nigel Valladares MD -[facility] Vascular Surg Work Phone: Start: 01-04-2025 End: 01-04-2025 Refill Wendy Burden [employer] Work Phone: [facility] Comment on above: Alteration of awaren ess Epigastric pain (Petra hipolito Dx); Chronic abdominal pain; Gastroesophageal reflux disease, unspecified whether esophagitis present; History of colon polyps; Cerebrovascular accident (CVA), unspecified mechanism (HCC) Start: 01-03-2025 End: 01-03-2025 Refill Wendy Burden [employer] Work Phone: [facility] Comment on above: Chronic abdominal pa in; Epigastric pain Start: 12-29-2024 End: 12-29-2024 Clinisync Result Encounter Wendy Jenise [employer] Work Phone: [facility] Unsolicited Start: 12-29-2024 End: 12-29-2024 Clinisync Result Encounter Wendy Jenise [employer] Work Phone: [facility] Unsolicited Start: 12-22-2024 End: 12-22-2024 Clinisync Result Encounter Wendy Jenise [employer] Work Phone: [facility] Unsolicited Start: 12-22-2024 End: 12-23-2024 Clinisync Result Encounter Wendy Jenise [employer] Work Phone: [facility] Unsolicited Start: 12-22-2024 End: 12-23-2024 External Result Encounter Wendy Jenise [employer] Work Phone: [facility] Unsolicited Start: 12-22-2024 End: 12-22-2024 ambulatory Wendy Burden Facility[facility] Start: 12-22-2024 End: 12-22-2024 Departed Referred Wendy Burden [employer]-[facility] -[facility] Start: 12-21-2024 End: 12-21-2024 Office outpatient visit 25 minutes Wendy Burden [employer] Work Phone: [facility] Comment on above: Gastroesophageal ref lux disease, unspecified whether esophagitis present (Primary Dx); Infrarenal abdominal aortic aneurysm (AAA) without rupture (CMS/HCC); Chronic abdominal pain; Dysuria; Epigastric pain; Tobacco dependency Start: 12-21-2024 End: 12-21-2024 ambulatory WENDY BURDEN Not Available Start: 12-21-2024 End: 12-21-2024 Bamboo flowsheet Wendy Burden [employer] Work Phone: [facility] Start: 12-21-2024 End: 12-21-2024 Bamboo flowsheet Wendy Burden [employer] Work Phone: [facility] Start: 12-19-2024 End: 12-21-2024 Refill Wendy Jenise [employer] Work Phone: [facility] Comment on above: Alteration of awaren ess referral Start: 12-14-2024 End: 12-14-2024 Clinisync Result Encounter Generic External Data Provider [facility] Unsolicited Start: 12-14-2024 End: 12-14-2024 Clinisync Result Encounter Generic External Data Provider [facility] Unsolicited Start: 11-15-2024 End: 11-15-2024 Orders Only Wendy Burden [employer] Work Phone: [facility] Comment on above: Mixed hyperlipidemia (CMS/HCC) (Primary Dx) Anxiety Start: 11-14-2024 Registered Recurring Mikhail rosenberg MD Work Phone: [facility] Work Phone: Start: 11-14-2024 End: 11-14-2024 ambulatory Mikhail oMon MD Work Phone: [facility] Work Phone: Start: 11-14-2024 End: 11-14-2024 Patient encounter procedure Mikhail Moon MD Work Phone: [facility] Work Phone: Start: 11-02-2024 End: 11-02-2024 Refill Wendy Jenise [employer] Work Phone: [facility] Comment on above: Urinary tract infect ion symptoms (Primary Dx); UTI symptoms Start: 10-28-2024 End: 10-28-2024 Refill Wendy Jenise [employer] Work Phone: [facility] Comment on above: Anxiety (Primary Dx) ; Psychophysiological insomnia Start: 10-27-2024 End: 10-27-2024 Transitional care manage srvc 14 day discharge Wendy Burden [employer] Work Phone: [facility] Comment on [...] Registered Recurring Mikhail rosenberg MD Work Phone: [facility] Work Phone: Start: 10-10-2024 End: 10-10-2024 ambulatory Mikhail Moon MD Work Phone: [facility] Work Phone: Start: 10-10-2024 End: 10-10-2024 Patient encounter procedure Mikhail Moon MD Work Phone: [facility] Work Phone: Start: 10-04-2024 End: 10-04-2024 ambulatory Mikhail Moon MD Work Phone: [facility] Work Phone: Start: 10-04-2024 End: 10-04-2024 Departed Referred Mikhail Moon MD Work Phone: [facility] Start: 09-26-2024 End: 09-26-2024 Bamboo flowsheet Kianna Lowe PA Work Phone: [facility] Start: 09-26-2024 End: 09-26-2024 Bamboo flowsheet Kianna Lowe PA Work Phone: [facility] Start: 09-26-2024 End: 09-26-2024 Office outpatient visit 25 minutes Kianna Lowe PA Work Phone: [facility] Comment on above: Alteration of awaren ess (Primary Dx); History of stroke Start: 09-26-2024 End: 09-26-2024 ambulatory KIANNA ROMAN Not Available Start: 09-12-2024 Registered Recurring Mikhail rosenberg MD Work Phone: [facility] Work Phone: Start: 09-12-2024 Non-patient / Non-visit Mikhail cordova MD Work Phone: [facility] Work Phone: Start: 09-05-2024 Non-patient / Non-visit Mikhail cordova MD Work Phone: [facility] Work Phone: Start: 08-29-2024 Non-patient / Non-visit Mikhail cordova MD Work Phone: [facility] Work Phone: Start: 08-12-2024 Non-patient / Non-visit Mikhail cordova MD Work Phone: [facility] Work Phone: Start: 08-06-2024 Non-patient / Non-visit Mikhail cordova MD Work Phone: [facility] Work Phone: Start: 08-04-2024 Non-patient / Non-visit Mikhail cordova MD Work Phone: [facility] Work Phone: Start: 08-02-2024 End: 08-02-2024 Bamboo flowsheet Chris Singh [employer] Work Phone: [facility] Start: 08-02-2024 End: 08-02-2024 Bamboo flowsheet Chris Singh [employer] Work Phone: [facility] Start: 08-02-2024 End: 08-02-2024 Office outpatient visit 40 minutes Romel Sampson MD Work Phone: [facility] Comment on above: Alteration of awaren ess; History of stroke Start: 08-02-2024 End: 08-02-2024 ambulatory ROMEL SAMPSON Not Available Start: 08-02-2024 End: 08-02-2024 Patient encounter procedure Chris Singh [employer] Work Phone: [facility] Comment on above: Medicare annual well ness visit, subsequent (Primary Dx); Other polyneuropathy; Psychophysiological insomnia Start: 08-02-2024 End: 08-02-2024 ambulatory CHRIS SINGH Not Available Start: 07-28-2024 Registered Recurring Shaikh Izzy gunn [facility] Work [facility]: Start: 07-28-2024 End: 07-28-2024 ambulatory Shaikh Aung FARFAN Work Phone: [facility] Work Phone: Start: 07-28-2024 End: 07-28-2024 Patient encounter procedure Shaikh Aung FARFAN [facility] Work Phone: Start: 07-18-2024 End: 07-18-2024 Telephone encounter [facility] Comment on above: lacosamide (VIMPAT) Start: 06-27-2024 End: 06-27-2024 Orders Only Chris Singh [employer] Work Phone: [facility] Comment on above: Moderate COPD (chron ic obstructive pulmonary disease) (CMS/HCC) Start: 06-21-2024 End: 07-04-2024 Telephone encounter [facility] Comment on above: Hospital Follow-up Start: 06-21-2024 End: 06-21-2024 ambulatory ERYN [facility] Start: 06-13-2024 End: 06-14-2024 Non-patient / Non-visit Shaikh Aung FARFAN [facility] Work Phone: Start: 05-31-2024 End: [...] 05-23-2024 End: 05-23-2024 Bamboo flowsheet Chris Singh [employer] Work Phone: [facility] Start: 05-23-2024 End: 05-23-2024 Bamboo flowsheet Chris Singh [employer] Work Phone: [facility] Start: 05-23-2024 End: 05-23-2024 Office outpatient visit 15 minutes Chris Singh [employer] Work Phone: [facility] Comment on above: Mass of left lung (P rimary Dx) Start: 05-23-2024 End: 05-23-2024 ambulatory CHRIS SINGH Not Available Start: 05-18-2024 End: 05-18-2024 ambulatory [facility] Start: 05-18-2024 End: 05-18-2024 ambulatory [facility] Start: 05-11-2024 End: 05-11-2024 ambulatory MD Shaikh Horan Work Phone: [facility] Work Phone: Start: 05-11-2024 End: 05-11-2024 Patient encounter procedure MD Shaikh Horan Work Phone[facility] Work Phone: Start: 05-10-2024 End: 05-10-2024 Office outpatient new 45 minutes Javier Villanueva DO Work Phone: [facility] Comment on above: Carcinoma in situ of ascending colon Start: 05-10-2024 End: 05-10-2024 ambulatory JAVIER VILLANUEVA Not Available Start: 05-02-2024 End: 05-02-2024 Refill Chris Singh [employer] Work Phone: [facility] Comment on above: Gastroesophageal ref lux disease without esophagitis Start: 04-28-2024 ambulatory DIANA escobar [facility] Start: 04-21-2024 End: 04-21-2024 Patient encounter procedure MD Shaikh Horan Work Phone: [facility] Work Phone: Start: 04-21-2024 End: 04-21-2024 ambulatory MD Shaikh Horan Work Phone: [facility] Work Phone: Start: 04-06-2024 ambulatory MD Shaikh Mackey ad Work Phone: [facility] Work Phone: Start: 04-06-2024 Non-patient / Non-visit MD Reynaldo Horan Work Phone: [facility] Work Phone: Start: 03-25-2024 Non-patient / Non-visit MD Reynaldo Hroan Work Phone: [facility] Gastroenterology Work Phone: Start: 03-25-2024 End: 03-25-2024 Admission to same day surgery center MD Shaikh Horan Work Phone: [facility] Work Phone: Start: 03-25-2024 End: 03-25-2024 ambulatory MD Shaikh Horan Work Phone: [facility] Work Phone: Start: 03-24-2024 End: 03-24-2024 Bamboo flowsheet Chris Singh [employer] Work Phone: [facility] Start: 03-24-2024 End: 03-24-2024 Bamboo flowsheet Chris Singh [employer] Work Phone: [facility] Start: 03-24-2024 End: 03-24-2024 Office outpatient visit 15 minutes Chris Singh [employer] Work Phone: [facility] Comment on above: Primary hypertension (CMS/HCC) (Primary Dx); Hyperlipidemia, unspecified hyperlipidemia type (CMS/HCC) Start: 03-24-2024 End: 03-24-2024 ambulatory CHRIS SINGH Not Available Start: 03-23-2024 End: 03-23-2024 ambulatory [facility] Start: 03-15-2024 End: 03-17-2024 Clinisync Result [...] 03-09-2024 ambulatory MD Shaikh Horan Work Phone: [facility] Work Phone: Start: 03-09-2024 End: 03-09-2024 Departed Referred MD Shaikh Horan Work Phone: [facility] Start: 03-07-2024 End: 03-07-2024 Refill Chrismaddy Jimeneztrick [employer] Work Phone: [facility] Comment on above: Mixed hyperlipidemia (CMS/HCC) (Primary Dx); Hyperlipidemia, unspecified hyperlipidemia type (CMS/HCC) Start: 03-02-2024 End: 03-02-2024 Refill Chris Singh [employer] Work Phone: [facility] Comment on above: Moderate COPD (chron ic obstructive pulmonary disease) (CMS/HCC) (Primary Dx) Start: 03-01-2024 End: 03-01-2024 Clinisync Result Encounter Chris Jimeneztrick [employer] Work Phone: [facility] External [facility] Unsolicited Start: 03-01-2024 End: 03-01-2024 Clinisync Result Encounter Chris Singh [employer] Work Phone: [facility] External [facility] Unsolicited Start: 03-01-2024 End: 03-01-2024 ambulatory SHAIKH AUNG Facility:[facility] Start: 03-01-2024 End: 03-01-2024 Patient encounter procedure Arden De Leon [facility] Start: 02-23-2024 Non-patient / Non-visit MD Reynaldo Horan Work Phone: [facility] Work Phone: Start: 12-30-2023 End: 12-30-2023 ambulatory MD Shaikh Horan Work Phone: [facility] Work Phone: Start: 12-30-2023 End: 12-30-2023 Patient encounter procedure MD Shaikh Horan Work Phone: [facility] Work Phone: Start: 12-27-2023 End: 12-27-2023 Emergency department patient visit MD Shaikh Horan Work Phone: [facility]-Emergency Room Work Phone: Start: 08-20-2023 Orders Only Shaikh Aung FARFAN Work Phone: [facility] Comment on above: RLS (restless legs s yndrome) (Primary Dx); Moderate COPD (chronic obstructive pulmonary disease) ([facility]/HCC) Start: 07-09-2023 Patient encounter procedure Shaikh Aung FARFAN Work Phone: [facility] Start: 03-25-2023 End: 03-25-2023 ambulatory Nigel Valladares Other [facility] Other Start: 03-25-2023 Office outpatient vi sit 15 minutes Nigel Valladares [facility] Vascular Surgery Start: 02-09-2023 End: 02-09-2023 ambulatory Cherelle Singhdylan Other [facility] Other Start: 02-09-2023 FQ visit new patient Cherelle Singhingrid grissom [facility] Vascular Surgery Start: 01-07-2023 End: 01-07-2023 Patient encounter procedure Brigette Martini [facility] Start: 01-01-2023 End: 01-01-2023 Patient encounter procedure Brigette Martini [facility] Start: 12-29-2022 End: 12-29-2022 Patient encounter procedure Brigette Martini [facility] Start: 12-24-2022 End: 12-24-2022 Patient encounter procedure Brigette Martini [facility] Start: 12-24-2022 End: 02-19-2023 Pre-admission assessment Jorge MERCEDES [facility] Start: 12-24-2022 End: 12-24-2022 Patient encounter procedure Brigette Martini [facility] Start: 11-11-2022 End: 11-11-2022 [...] encounter procedure Armando WESTON [facility] [facility] Start: 05-07-2022 End: 05-08-2022 ambulatory HURTADO H FAWWAD Facility:H1 Procedures Date Procedure Procedure Detail Performing Clinician Start: 02-21-2025 CRYOTHERAPY SKIN LESION Sulema Juan [employer] Work Phone: Start: 02-11-2025 CT angiography of ne ck vessels Start: 02-11-2025 Plain chest X-ray Start: 02-11-2025 Computed tomography of abdomen and pelvis with contrast Start: 02-11-2025 CT angiography of head Start: 02-11-2025 CT of chest Start: 02-11-2025 CT of head without contrast Start: 01-16-2025 CT of chest without contrast Start: 01-04-2025 US scan of aorta Hipolito somers [employer] Work Phone: Start: 12-29-2024 CT ABDOMEN PELVIS W CON Wendy Burden [employer] Work Phone: Start: 12-22-2024 Urine culture Hipolito hurst [employer] Work Phone: Start: 12-22-2024 Culture bacterial quanttative colony count urine Wendy Burden [employer] Work Phone: Start: 12-22-2024 URINE CULTURE - [facility] Margoth Burden [employer] Work Phone: Start: 12-14-2024 ALL CBC WITH AUTO DIFF Generic External Data Provider Start: 10-04-2024 Urine culture Imad Sadie rosenberg MD Work Phone: Start: 06-21-2024 Colonoscopy Chris serrano [employer] Work Phone: Start: 05-24-2024 [facility] CONSULT Javier Villanueva DO Work Phone: Start: 04-21-2024 Carcinoembryonic antigen cea Shaikh Aung Comment on above: Result Comment: Demarco palencia tumor marker results determined by assays using different manufacturers or methods may not be comparable. [facility] compliance specialist and method: ANTIONE UNICEL DXI, 2 SITE IMMUNOENZYMATIC ?SANDWICH? ASSAY. PERFORMED BY: [place] [id number] PATHOLOGIST MANAGING PRINCIPAL JENNIFER ALANIZ M.D. Performed By: #### C EA #### [address] Start: 04-21-2024 Computed tomography of abdomen [...] ALL CBC WITH AUTO DIFF Chris Singh [employer] Work Phone: Start: 12-30-2023 US scan of aorta MD Reynaldo Horan Work Phone: Start: 12-27-2023 Blood culture for ba cteria, including anaerobic screen MD Shaikh Horan Work Phone: Start: 12-27-2023 Screening for occult blood in feces MD Shaikh Horan Work Phone: Start: 12-27-2023 Stool Occult Blood (BAILEE) MD Shaikh Horan Work Phone: Start: 12-27-2023 Urine culture MD Shaikh Horan Work Phone: Start: 12-27-2023 CT angiography of thorax MD Shaikh Horan Work Phone: Start: 12-27-2023 Plain chest X-ray MD Janett Horan Work Phone: Start: 07-03-2022 Mammography Shaikh Josh flowers MD Work Phone: Start: 07-13-1989 Introduction of tens ion free vaginal tape Brigette Martini Cholecystectomy Brigette nash Colonoscopy Arden De Leon Hysterectomy Brigette Martini Rotator cuff includi ng muscles and tendons (body structure) Brigette Martini Plan of Treatment Date Care Activity Detail Author Start: 06-21-2034 Screening for malign ant neoplasm of colon [facility] Start: 03-25-2034 Screening for malign ant neoplasm of colon [facility] Start: 04-12-2026 Screening for malign ant neoplasm of colon [facility] Start: 08-02-2025 Medicare Annual Wellness (AWV) Medicare Annual Wellness (AWV) [facility] Start: 06-15-2025 Adult BMI Screening Adult BMI Screen ing [facility] Start: 06-15-2025 Tobacco Screening Tobacco Screening [facility] Start: 05-01-2025 End: 05-01-2025 Patient encounter procedure 05/01/2025 9:40 AM EDT Office Visit NEREIDA SHERMAN [address] [place] [address] Wendy Burden, CLOTILDE [address] [place] [address] NEREIDA [facility] Start: 04-11-2025 End: 04-11-2025 Patient encounter procedure 04/11/2025 10:15 AM EDT Office Visit [facility] [address] [facility] [address] [place] [address] Neyda Lockwood MD [address] [facility] [address] [address] NEREIDA [facility] Start: 03-23-2025 End: 03-23-2025 Patient encounter procedure 03/23/2025 9:05 AM EDT Office Visit N[facility]IDA [facility] [address] [place] [address] Sulema Juan, [employer] [address] [place] [address] [facility] Start: 03-13-2025 Influenza vaccination [facility] Start: 03-07-2025 End: 03-07-2025 Patient encounter procedure 03/07/2025 4:15 PM EDT Office Visit [facility] [address] [place] [address] Neyda Lockwood MD [address] [facility] [address] [place] [address] [facility] Start: 02-24-2025 End: 02-24-2025 ambulatory 02/24/2025 10:30 AM EDT Evaluation [facility] [address] [facility] [address] [place] [address] Rachael Jessica, PT [facility] Start: 02-22-2025 End: 02-22-2025 Patient encounter procedure 02/22/2025 11:30 AM EDT Office Visit [facility] [address] [place] [address] Wendy Burden NP [address] [place] [address] [facility] Start: 02-21-2025 End: 02-21-2025 Patient encounter procedure 02/21/2025 1:25 PM EDT Office Visit [facility] [address] [place] [address] Sulema Juan, [employer] [address] [place] [address] Arrived [facility] Comment on above: Arrived Start: 02-14-2025 [facility] Start: 02-11-2025 Referral [facility] Start: 02-11-2025 Lamotrigine measurement [facility] Start: 02-11-2025 Hospital admission [facility] Start: 02-11-2025 [facility] Start: 02-11-2025 Bacteria identified in Blood by Culture Blood Culture [facility] Start: 02-07-2025 End: 02-07-2027 Echocardiogram 2D complete Echocardiogram 2D complete Echocardiography Routine Cerebral artery occlusion with cerebral infarction (HCC) Other transient cerebral ischemic attacks and related syndromes Patent foramen ovale (HHS-HCC) Expected: 02/07/2025 (Approximate), Expires: 02/07/2027 [facility] Comment on above: Expected: 02/07/2025 (Approximate), Expires: 02/07/2027 Start: 02-07-2025 End: 02-07-2026 US.doppler Carotid arteries - bilateral Vascular US carotid artery duplex bilateral Imaging Routine Carotid stenosis, bilateral Stroke, lacunar (HCC) Cerebral artery occlusion with cerebral infarction (HCC) Expected: 02/07/2025, Expires: 02/07/2026 [facility] Work Phone: Comment on above: Expected: 02/07/2025 , Expires: 02/07/2026 Start: 02-07-2025 End: 02-07-2025 Patient encounter procedure [facility] Comment on above: Arrived Start: 01-26-2025 End: 01-26-2025 Patient encounter procedure [facility] Comment on above: Arrived Start: 01-04-2025 US scan of aorta US aorta [facility] Start: 12-21-2024 End: 12-21-2024 Patient encounter procedure [facility] Comment on above: Arrived Start: 12-21-2024 End: 12-21-2025 Amylase [Enzymatic activity/volume] in Serum or Plasma Amylase Lab Routine Epigastric pain Expected: 12/21/2024 (Approximate), Expires: 12/21/2025 [facility] Comment on above: Expected: 12/21/2024 (Approximate), Expires: 12/21/2025 Start: 12-21-2024 End: 12-21-2025 Bacteria identified in Urine by Culture Urine culture (clean catch) Microbiology Routine Dysuria Expected: 12/21/2024 (Approximate), Expires: 12/21/2025 [facility] Comment on above: Expected: 12/21/2024 (Approximate), Expires: 12/21/2025 Start: 12-21-2024 End: 12-21-2025 Comprehensive metabolic 2000 panel - Serum or Plasma Comprehensive metabolic panel Lab Routine Chronic abdominal pain Dysuria Epigastric pain Expected: 12/21/2024 (Approximate), Expires: 12/21/2025 [facility] Comment on above: Expected: 12/21/2024 (Approximate), Expires: 12/21/2025 Start: 12-21-2024 End: 12-21-2025 CT Abdomen and Pelvis W contrast IV CT abdomen pelvis w IV contrast Imaging High Priority Infrarenal abdominal aortic aneurysm (AAA) without rupture (CMS/HCC) Chronic abdominal pain Expected: 12/21/2024 (Approximate), Expires: 12/21/2025 [facility] Work Phone: Comment on above: Expected: 12/21/2024 (Approximate), Expires: 12/21/2025 Start: 12-21-2024 End: 12-21-2025 Lipase [Enzymatic activity/volume] in Serum or Plasma Lipase Lab Routine Epigastric pain Expected: 12/21/2024 (Approximate), Expires: 12/21/2025 [facility] Comment on above: Expected: 12/21/2024 (Approximate), Expires: 12/21/2025 Start: 12-21-2024 End: 12-21-2025 Urinalysis complete panel - Urine Urinalysis with reflex microscopic (clean catch) Lab Routine Dysuria Expected: 12/21/2024 (Approximate), Expires: 12/21/2025 [facility] Comment on above: Expected: 12/21/2024 (Approximate), Expires: 12/21/2025 Start: 11-15-2024 End: 11-15-2025 Lipid 1996 panel - Serum or Plasma Lipid panel Lab Routine Mixed hyperlipidemia (CMS/HCC) Expected: 11/15/2024 (Approximate), Expires: 11/15/2025 [facility] Work Phone: Comment on above: Expected: 11/15/2024 (Approximate), Expires: 11/15/2025 Start: 10-27-2024 End: 12-27-2025 MG Breast - bilateral Screening Bilateral screening mammogram Imaging Routine Screening mammogram for breast cancer Expected: 10/27/2024 (Approximate), Expires: 12/27/2025 [facility] Work Phone: Comment on above: Expected: 10/27/2024 (Approximate), Expires: 12/27/2025 Start: 10-24-2024 End: 10-24-2024 Patient encounter procedure 10/24/2024 9:20 AM EDT Office Visit SANDRA VILLALOBOS [address] [place] [address] Kianna Roman PA [address] [place] [address] [facility] Start: 10-04-2024 [facility]rine culture [facility] Start: 10-04-2024 Bacteria identified in Urine by Culture Urine Culture [facility] Start: 09-26-2024 End: 09-26-2024 Patient encounter procedure [facility] Comment on above: Arrived Start: 09-13-2024 End: 09-13-2024 Patient encounter procedure 09/13/2024 10:00 AM EST Office Visit [facility] [address] [place] [address] Chris Singh, CLOTILDE [address] [place] [address] [facility] Start: 08-02-2024 End: 08-02-2024 Patient encounter procedure [facility] Comment on above: Arrived Start: 08-01-2024 End: 08-01-2024 Patient encounter procedure 08/01/2024 10:30 AM EST Office Visit [facility] [address] [place] [address] Chris Singh, [employer] [address] [place] [address] [facility] Start: 07-09-2024 Medicare Annual Wellness (AWV) Medicare Annual Wellness (AWV) [facility] Start: 06-29-2024 End: 06-29-2024 Patient encounter procedure 06/29/2024 9:45 AM EST Office Visit [facility] [address] [place] [address] Javier Villanueva, DO [address] [place], [place] [id number] [facility] Start: 06-23-2024 End: 03-24-2025 Lipid 1996 panel - Serum or Plasma Lipid panel Lab Routine Hyperlipidemia, unspecified hyperlipidemia type (CMS/HCC) Expected: 06/23/2024 (Approximate), Expires: 03/24/2025 [facility] Work Phone: Comment on above: Expected: 06/23/2024 (Approximate), Expires: 03/24/2025 Start: 06-23-2024 End: 06-23-2024 Patient encounter procedure 06/23/2024 10:00 AM EST Office Visit [facility] [address] [place] [address] Chris Singh, CLOTILDE [address] [place] [address] [facility] Start: 05-31-2024 End: 05-31-2024 Patient encounter procedure 05/31/2024 10:30 AM EST Office Visit [facility] [address] [place] [address] Javier Villanueva, DO [address] [place], [place] [id number] [facility] Start: 05-03-2024 End: 05-03-2024 Patient encounter procedure 05/03/2024 2:00 PM EDT Consult [facility] [address] [place] [address] Javier Villanueva, DO [address] [facility] [address] [place] [address] [facility] Start: 04-06-2024 Patient referral [facility] Work Phone: Start: 03-25-2024 [facility] Start: 03-24-2024 End: 03-24-2024 [facility] encounter [facility] Comment on above: Arrived Start: 03-13-2024 Influenza vaccination [facility] Start: 01-10-2024 Influenza vaccination Influenza Vacc ine (#1) [facility] Comment on above: Postponed from 03/13 (Patient Refused) Start: 12-27-2023 Bacteria identified in Blood by Culture [facility] Start: 12-27-2023 Bacteria identified in Urine by Culture [facility] Start: 12-27-2023 Blood culture for bacteria, including anaerobic screen Blood Culture [facility] Start: 10-08-2023 End: 10-08-2023 Patient encounter procedure 10/08/2023 2:00 PM EDT Office Visit [facility] [address] [place] [address] Shaikh Horan MD [address] [place] [address] [facility] Start: 07-03-2023 Screening for malign ant neoplasm of breast Mammogram [facility] Start: 2017 Fall Risk Screening Fall Risk Screen ing [facility] Start: 2002 Administration of varicella zoster vaccine Zoster (Shingles) Vaccine (1 of 2) [facility] Start: 1971 DTaP,Tdap and Td Vaccines (1 - Tdap) DTaP,Tdap and Td Vaccines (1 - Tdap) [facility] Start: 1970 Adult BMI Follow Up Plan Adult BMI Follow Up Plan [facility] Start: 1964 Depression Screening Depression Scre ening [facility] Start: 1952 Screening for malign ant neoplasm of colon [facility] Bacteria identified in Urine by Culture Urine culture Microbiology Routine 12/22/2024 10:[address] [facility] Work Phone: CT Chest WO contrast [facility] CT with contrast for radiotherapy planning [facility] Lacosamide [Mass/volume] in Serum or Plasma [facility] Patient Education [facility] Work Phone: Patient referral [facility] Work Phone: URINE CULTURE - [facility] URINE CULTU RE - [facility] Lab Routine 12/22/2024 10:[address] [facility] Work Phone: US Thoracic and abdominal aorta [facility] Immunizations Immunization Date Immunization Notes Care Provider [facility] 07-09-2022 pneumococcal 20-ananya nt conjugate vaccine Brigette Martini [facility] 07-03-2022 pneumococcal conjuga te vaccine, 13 valent Brigette Lianet [facility] Payers Date Payer Category Payer Medicare HMO [id number] 2023 Unknown [id number] 2023 Medicare (Managed Care) 1.2. [id number] 2023 Private Health Insurance [id number] 2022 Unknown [employer] Mingxieku [id number] 2022-Present [address] [place] [address] [id number] .[id number] 2020 Unknown [id number] 2013 Medicare [id number] 2013 Medicare [id number] 1959 Self-pay 1952 Unknown [id number] 2.16.840.1.151137.3.579.2 .593 1952 Unknown [id number] 2.16.840.1.366830.3.579.2 .593 1952 Unknown [id number] 2.16.840.1.359046.3.579.2 .593 1952 Unknown [id number] 2.16.840.1.872809.3.579.2 .593 1952 Unknown [id number] 2.16.840.1.876581.3.579.2 .593 1952 Unknown [id number] 2.16.840.1.964509.3.579.2 .593 1952 Unknown [id number] 2.16.840.1.998642.3.579.2 .593 1952 Unknown [id number] 2.16.840.1.636668.3.579.2 .593 1952 Unknown [id number] 2.16.840.1.626555.3.579.2 .1259 1952 Unknown [id number] 2.16.840.1.244500.3.579.2 .1259 1952 Unknown [id number] 2.16.840.1.611359.3.579.2 .1259 1952 Unknown [id number] 2.16.840.1.618516.3.579.2 .1259 1952 Unknown [id number] 2.16.840.1.946182.3.579.2 .1258 1952 Unknown [id number] 2.16.840.1.998549.3.579.2 .1259 1952 Unknown [id number] 2.16.840.1.190475.3.579.2 .1258 1952 Unknown [id number] 2.16.840.1.117308.3.579.2 .1258 1952 Unknown [id number] 2.16.840.1.247359.3.579.2 .1258 1952 Unknown [id number] 2.16.840.1.234854.3.579.2 .1258 1952 Unknown [id number] 2.16.840.1.236140.3.579.2 .1258 1952 Unknown [id number] 2.16.840.1.926804.3.579.2 .1258 1952 Unknown [id number] 2.16.840.1.359552.3.579.2 .1258 1952 Unknown [id number] 2.16.840.1.424409.3.579.2 .727 1952 Unknown [id number] 2.16.840.1.292977.3.579.2 .727 1952 Unknown [id number] 2.16.840.1.453567.3.579.2 .727 Medicare [facility] P l[facility] PFFS [id number] Private Health Insurance [employer] [facility] PFFS [id number] Unknown [id number] 2.16.840.1.993168.3.579.2 .531 Unknown [id number] 2.16.840.1.594255.3.579.2 .531 Unknown [id number] 2.16.840.1.417094.3.579.2 .531 Unknown [id number] 2.16.840.1.960096.3.579.2 .531 Unknown [id number] 2.16.840.1.448455.3.579.2 .531 Unknown [id number] 2.16.840.1.914068.3.579.2 .531 Unknown [id number] 2.16.840.1.677909.3.579.2 .531 Unknown [id number] 2.16.840.1.114148.3.579.2 .531 Unknown [id number] 2.16.840.1.934590.3.579.2 .531 Social History Date Type Detail Facility Tobacco smoking status [facility] Start: 07-09-2023 End: 12-08-2023 Sex Assigned At Female [facility] Start: 12-24-2022 Tobacco smoking status Heavy t obacco smoker (finding) [facility] Tobacco smoking status Never [facility] Start: 07-09-2023 End: 02-12-2025 Tobacco smoking status COIS Smokes tobacco daily [facility] End: 12-28-2023 History of tobacco use Cigarette Smoker [facility] Start: 07-09-2023 End: 12-08-2023 Cigarettes smoked current (pack per day) - Reported 1 [facility] Start: 07-09-2023 End: 01-04-2024 Tobacco use and exposure Smokeless tobacco non-user [facility] Start: 07-09-2023 End: 02-22-2025 Alcohol intake Lifetime non-drinker (finding) [facility] Start: 1950 Sex Assigned At Not on file [facility] Start: 1950 Sex Assigned At Female [facility] Start: 12-27-2023 End: 12-28-2023 Tobacco smoking status NHIS Smoker (finding) [facility] Start: 01-04-2024 End: 03-25-2024 Tobacco smoking status NHIS Ex-smoker (finding) [facility] History of tobacco use Passive smoker [...] Start: 06-15-2024 Alcoholic beverage intake Ex-drinker (finding) [facility] Start: 06-13-2024 End: 11-14-2024 Sex Female (finding) [facility] Start: 01-30-2025 Tobacco smoking status Light t obacco smoker (finding) [facility] Start: 02-14-2025 SDOH Follow up SDOH Follow up [facility] Work Phone: Goals Date Patient Goal Desired Activity /State Personal health goal Comment on above: Formatting of this n ote might be different from the original. Evaluation of progress towards goal: Significant other hopes patient will be able to return home Functional Status Date Assessment Result Facility 12-24-2022 Functional Status N/A [facility] Clinical Notes 06-09-2022 to 02-22-2025 Wendy Burden NP - 02/22/2025 4:58 PM Karthik Burden NP - 02/22/2025 4:57 PM Karthik Burden NP - 02/22/2025 4:56 PM Karthik Burden NP - 02/22/2025 4:56 PM EDTPatient InstructionsLaboratory Note Date & Type Note Facility 02-22-2025 History of Present illness Narrative Associated Problem(s): Syncope and collapse Likely related to overall deconditioning, dehydration, extreme heat conditions Urged her to remain well hydrated Associated Problem(s): Infrarenal abdominal aortic aneurysm (AAA) without rupture Has seen vascular in the past Associated Problem(s): Adenocarcinoma of left lung (HCC) Continue with oncology Associated Problem(s): Chronic abdominal pain DD: constipation, [...] will need to see GI as scheduled Associated Problem(s): CVA (cerebral vascular accident) (HCC) recent hospitalization at [facility] around 10/04/24, was also sent to [...] now under the care of Dr Lockwood Associated Problem(s): Seizure (HCC) Under the care of neurology Images from the original note were not included. Bhupendra Rubi is a 74 y.o. female presents with chief complaint of Hospital Follow-up HPI: Here for hospital follow up Passed out at [place]: see ER notes for HPI I have [...] daily atorvastatin (LIPITOR) 80 mg, Oral, Daily Cqbsbdy-Kpqpgpgksjk-Ojkelluxgu (Breztri Aerosphere) 160-9-4.8 MCG/ACT aerosol 2 puffs, Inhalation, 2 times daily Carafate 1 g gabapentin (NEURONTIN) 300 mg, Oral, 3 times daily hyoscyamine (Anaspaz,Levsin) 0.125 MG tablet Dissolve 2 (TWO) tablets under tongue FOUR times daily as needed for spasm lacosamide (VIMPAT) 100 mg, [...] pain. Negative for blood in stool, constipation, diarrhea, nausea and [...] rupture CT chest done in 11/02 by Tamera [...] Size: Adult long) Pulse 88 Temp 98.1 F (Temporal) Wt 137 lb 12.8 oz SpO2 94% BMI 25.20 kg/m OB Status Hysterectomy Smoking Status Former BSA 1.65 m Physical Exam Vitals and nursing note [...] (cerebral vascular accident) (HCC) recent hospitalization at [facility] around 10/04/24, was also sent to [...] is now under the care of Dr Mandie Nunez ([facility]) Under the care of neurology documented in this encounter [facility] 02-22-2025 Instructions Wendy Burden NP - 02/22/2025 11:30 AM EDT I will give you a ONE TIME script for pain meds: One pill daily documented in this encounter [facility] 02-21-2025 History of Present illness Narrative Rash Location: All over - Most concerned [...] office if abnormal redness or tenderness develops at the treatment site. Cryotherapy today, see procedure note. Diagnosis: Inflamed seborrheic keratosis Indication: Inflamed Consent: Verbal consent was obtained and risks were discussed, including, but not limited to risks of scarring, darker or nurse auditor pigmentary changes, recurrence, incomplete removal and infection. [...] any new/changing lesions documented in this encounter [facility] 02-11-2025 Radiology Diagnostic study note [facility] Main [place] [address] [place] [address] CT Scan Report Signed Patient: Bhupendra Rubi MR#: [id number] : 1950 Acct:[id number] Age/Sex: 74 / F ADM Date: 5 Loc: ER Room: Type: [facility] ER Attending Dr: Copies to: Isabella Brown MD~ Ordering Provider: Isabella Brown MD Date of Service: 02/11/25 CT/CT angio abdomen pelvis: known aneurysm, sudden abd pain ([id number]) CT/CT angio chest: seizure, arreola CT angio chest, CT angio abdomen pelvis 02/11/2025 1:31 PM SIGN AND SYMPTOMS: Generalized abdominal pain, nausea and vomiting, known abdominal aortic aneurysm, syncopal episode, seizure CONTRAST: 180 mL of intravenous Isovue-370 TECHNIQUE: Multidetector CT axial slices of the chest, abdomen and pelvis were obtainedwith IV contrast. Multiplanar reformats were performed and viewed on a separate workstation and reviewed to further define anatomy and possible pathology. CT was performed with one or more of the following dose reduction techniques: Automated exposure control, adjustment of the mA and/or kV accordingto patient size, or use of iterative reconstruction technique. COMPARISON: 01/16/2025. FINDINGS: Lower neck: Please see separately dictated CT of the head and neck from the samedate Vessels: Atherosclerotic changes are noted in the thoracic aorta and origins of great vessels without significant narrowing of the proximal left subclavian artery. Calcified plaque is noted in the carotid bifurcations. There is no pulmonary embolism. No dissection or occlusion. Mediastinum and Maddi: Within normal limits. Heart: Normal size. There is a small pericardial effusion.. Airways: Within normal limits Lungs: There is masslike opacity in the left upper lobe inferiorly and laterallymeasuring 2.4 cm in greatest dimension similar to the prior exam. There is dependent atelectasis in the lung bases. Mild emphysematous changes are noted. Pleura: Within normal limits. Chest Wall: Within normal limits. Abdomen: Liver: The liver is hypoattenuating suggesting hepatic steatosis. Bile Ducts: Normal caliber. Gallbladder: Previously removed Pancreas: within normal limits. Spleen: within normal limits. Adrenals: within normal limits. Kidneys: Simple cysts are noted in the renal cortices. Pelvis: Reproductive Organs: No pelvic masses. Ureters: within normal limits. Bladder: within normal limits. Bowel: Normal caliber. There is a normal appendix in the right lower quadrant. Mesenteric Lymph Nodes: No enlarged mesenteric lymph nodes. Peritoneum: No ascites or free air, no fluid collection. Vessels: Atherosclerotic changes are noted in the abdominal aorta and its branches. There is mild aneurysmal dilatation of the infrarenal abdominal aortameasuring 4.1 cm in greatest dimension similar to the prior exam. No dissectionor occlusion.. Retroperitoneum: within normal limits. Abdominal Wall: within normal limits. Bones: Degenerative changes are noted in the thoracolumbar spine, shoulders, andsacroiliac joints. CT/CT angio chest IMPRESSION: No evidence of dissection or occlusion. No pulmonary embolism. There is mild aneurysmal dilatation of the infrarenal abdominal aorta measuring 4.1 cm in greatest dimension similar to the prior exam. There is masslike opacity in the left upper lobe inferiorly and laterally measuring 2.4 cm in greatest dimension similar to the prior exam. There is a small pericardial effusion. No bowel obstruction or obstructive uropathy. No acute intra-abdominal pathology is noted. Hepatic steatosis. Impression dictated by: Neyda Salazar M.D. 02/11/2025 2:01 PM Dictation Location: [facility]-17 Transcribed By: JOSE MIGUEL 02/11/25 1401 Dictated By: Neyda Salazar II, MD 02/11/25 1350 Signed By: 02/11/25 1401 [facility] Work Phone: 02-11-2025 Radiology Diagnostic study note [facility] [place] [address] [place] [address] CT Scan Report Signed Patient: Bhupendra Rubi MR#: [id number] : 1950 Acct:[id number] Age/Sex: 74 / F ADM Date: 5 Loc: ER Room: Type: PRE ER Attending Dr: Copies to: Isabella Brown MD~ Ordering Provider: Isabella Brown MD Date of Service: 02/11/25 CT/CT angio head: seizure, arreola ([id number]) CT/CT head/brain wo con: seizure, arreola ([id number]) CT/CT angio neck: SYNCOPAL EPISODE VS SEIZURE CT head/brain wo con, CT angio neck, CT angio head 02/11/2025 1:32 PM SIGNS AND SYMPTOMS: Generalized abdominal pain, nausea and vomiting, known abdominal aortic aneurysm, syncopal episode, seizure CONTRAST: 180 mL of intravenous Isovue-370 TECHNIQUE: Multi-detector CT angiography axial slices of the head were obtained before and during intravenous administration of IV contrast material. Sagittal, coronal, and 3-D reconstructions were performed and viewed on a separate workstation. CT was performed with one or more of the following dose reduction techniques: Automated exposure control, adjustment of the mA and/or kV accordingto patient size, or use of iterative reconstruction technique. Stenoses were measured using the NASCET criteria. COMPARISON: 06/14/2024 FINDINGS: Noncontrast head CT: There is no shift of the midline structures, acute intracranial bleeding, mass effects, or evidence of acute ischemia. Gliosis and encephalomalacia is noted in the left temporal, parietal, and occipital lobes. This is consistent with a remote infarct. There is periventricular white matter hypoattenuation. There is a remote cortical infarct in the lateral right frontal cortex. The ventricular system is normal in size. The brainstem and the cerebellum are unremarkable. The visualized intraorbital contents and the visualized soft tissue in the infratemporal spaces show no abnormality. Mucosal thickening is noted in the left maxillary sinus. The osseous structures in the skull base andthe calvarium show no acute abnormality. CTA HEAD: The superior cerebellar arteries, posterior inferior cerebellar arteries, and the basilar artery are within normal limits. There is irregular narrowing of the P1, P2, and T3 segments of the posterior cerebral arteries left greater thanright with significant focal stenosis at the P1/P2 junction on the left. The intracranial segments of the internal carotid arteries are within normal limits. There are normal anterior and middle cerebral arteries. Anterior communicating artery is patent. Posterior communicating arteries are present. The deep venous system and dural venous systems appear to be patent. No bony abnormalities are appreciated. There is partial visualization of a masslike opacity in the CTA NECK: Calcified plaque is noted in the aortic arch and origins of great vessels with moderate to severe narrowing of the proximal left subclavian artery.. The subclavian arteries are within normal limits. The vertebral arteries arise fromthe subclavian arteries. Calcified plaque is noted in the origin of the left vertebral artery contributing to moderate stenosis. The vertebral arteries are otherwise normal in course and caliber up to the skull base. Calcified plaque is noted in the carotid bifurcation on the right with approximately 30% stenosis. The common and internal carotid arteries are otherwise normal in course and caliber up to the skull base. There is partial visualization of a masslike opacity in the left upper lobe laterally. No acute bony abnormalities are identified. The paraspinous soft tissues are within normal limits. CT/CT head/brain wo con IMPRESSION: No acute intracranial pathology. Remote infarcts are redemonstrated as above. Calcified plaque is noted in the carotid bifurcation on the right with approximately 30% stenosis. Calcified plaque contributes to moderate narrowing of the origin of the left vertebral artery. There is irregular narrowing of the P1, P2, and T3 segments of the posterior cerebral arteries left greater than right with significant focal stenosis at theP1/P2 junction on the left. This is likely chronic in nature given the known remote left-sided infarct. No evidence of aneurysmal dilatation, dissection, or occlusion. Impression dictated by: Neyda Salazar M.D. 02/11/2025 1:49 PM Dictation Location: [facility] Transcribed By: [facility] 02/11/25 1349 Dictated By: Neyda Salazar II, MD 02/11/25 1338 Signed By: 02/11/25 1349 [facility] Work Phone: 02-08-2025 Note Progress Note-Physic mich Patient: BHUPENDRA RUBI Age: 74 years Sex: Female : 1950 Associated Diagnoses: None Author: Dre Robert Jr., DO Postoperative Information Postoperative disposition: Postoperative disposition: Home. Optimetrix number: Optimetrix number [id number]. Anesthetic utilized: General. Physical Examination Vital Signs 02/08/2025 11:00 EDT SpO2 97 % 02/08/2025 11:00 EDT Heart Rate Monitored 72 bpm 02/08/2025 11:00 EDT Respiratory Rate Monitored 21 br/min 02/08/2025 11:00 EDT Systolic Blood Pressure 110 mmHg Diastolic Blood Pressure 59 mmHg 02/08/2025 10:57 EDT SpO2 90 % 02/08/2025 10:57 EDT Systolic Blood Pressure 96 mmHg Diastolic Blood Pressure 58 mmHg LOW 02/08/2025 10:57 EDT Temperature Temporal Artery 36.7 DegC Heart Rate Monitored 74 bpm Respiratory Rate Monitored 15 br/min Pain Assessment: Controlled. General: Awake, Alert, Appropriate. Respiratory: Adequate air exchange, Non-labored. Cardiovascular: Stable, Normal peripheral perfusion. Neurological: Neurologic exam at baseline. No changes.. Assessment Anesthetic outcome No anesthetic complications noted. No nausea/vomiting. Review / Management Condition: Stable. Plan Transfer/Discharge: Transfer/Discharge Discharge when meets criteria ( From PACU to Ambulatory Surgery Unit, and To home ). [facility] Comment on above: Result Comment: Elec tronically Signed By: Dre Robert Jr., DO\.br\Date and Time Signed: 02/08/25 12:22 EDT 02-08-2025 Note Patient Education - Text Hiatal Hernia A hiatal hernia occurs when part of the stomach slides above the muscle that separates the abdomen from the chest (diaphragm). A person can be born with a hiatal hernia (congenital), or it may develop over time. In almost all cases of hiatal hernia, only the top part of the stomach pushes through the diaphragm. Many people have a hiatal hernia with no symptoms. The larger the hernia, the more likely it is that you will have symptoms. In some cases, a hiatal hernia allows stomach acid to flow back into the tube that carries food from your mouth to your stomach (esophagus). This may cause heartburn symptoms. The development of heartburn symptoms may mean that you have a condition called gastroesophageal reflux disease (GERD). What are the causes? This condition is caused by a weakness in the opening (hiatus) where the esophagus passes through the diaphragm to attach to the upper part of the stomach. A person may be born with a weakness in the hiatus, or a weakness can develop over time. What increases the risk? This condition is more likely to develop in: ??? Older people. Age is a major risk factor for a hiatal hernia, especially if you are over the age of 50. ??? women. ??? People who are overweight. ??? People who have frequent constipation. What are the signs or symptoms? Symptoms of this condition usually develop in the form of GERD symptoms. Symptoms include: ??? Heartburn. ??? Upset stomach (indigestion). ??? Trouble swallowing. ??? Coughing or wheezing. Wheezing is making high-pitched whistling sounds when you breathe. ??? Sore throat. ??? Chest pain. ??? Nausea and vomiting. How is this diagnosed? This condition may be diagnosed during testing for GERD. Tests that may be done include: ??? X-rays of your stomach or chest. ??? An upper gastrointestinal (GI) series. This is an X-ray exam of your GI tract that is taken after you swallow a chalky liquid that shows up clearly on the X-ray. ??? Endoscopy. This is a procedure to look into your stomach using a thin, flexible tube that has a tiny camera and light on the end of it. How is this treated? This condition may be treated by: ??? Dietary and lifestyle changes to help reduce GERD symptoms. ??? Medicines. These may include: ? Qkhz-mar-sdyztlc antacids. ? Medicines that make your stomach empty more quickly. ? Medicines that block the production of stomach acid (H2 blockers). ? Stronger medicines to reduce stomach acid (proton pump inhibitors). ??? Surgery to repair the hernia, if other treatments are not helping. If you have no symptoms, you may not need treatment. Follow these instructions at home: Lifestyle and activity ??? Do not use any products that contain nicotine or tobacco. These products include cigarettes, chewing tobacco, and vaping devices, such as e-cigarettes. If you need help quitting, ask your health care provider. ??? Try to achieve and maintain a healthy body weight. ??? Avoid putting pressure on your abdomen. Anything that puts pressure on your abdomen increases the amount of acid that may be pushed up into your esophagus. ? Avoid bending over, especially after eating. ? Raise the head of your bed by putting blocks under the legs. This keeps your head and esophagus higher than your stomach. ? Do not wear tight clothing around your chest or stomach. ? Try not to strain when having a bowel movement, when urinating, or when lifting heavy objects. Eating and drinking ??? Avoid foods that can worsen GERD symptoms. These may include: ? Fatty foods, like fried foods. ? Premont fruits, like oranges or lemon. ? Other foods and drinks that contain acid, like orange juice or tomatoes. ? Spicy food. ? Chocolate. ??? Eat frequent small meals instead of three large meals a day. This helps prevent your stomach from getting too full. ? Eat slowly. ? Do not lie down right after eating. ? Do not eat 1?2 hours before bed. ??? Do not drink beverages with caffeine. These include cola, coffee, cocoa, and tea. ??? Do not drink alcohol. General instructions ??? Take turb-rrd-cmsdtkt and prescription medicines only as told by your health care provider. ??? Keep all follow-up visits. Your health care provider will want to check that any new prescribed medicines are helping your symptoms. Contact a health care provider if: ??? Your symptoms are not controlled with medicines or lifestyle changes. ??? You are having trouble swallowing. ??? You have coughing or wheezing that will not go away. ??? Your pain is getting worse. ??? Your pain spreads to your arms, neck, jaw, teeth, or back. ??? You feel nauseous or you vomit. Get help right away if: ??? You have shortness of breath. ??? You vomit blood. ??? You have bright red blood in your stools. ??? You have black, tarry stools. These symptoms may be an emergency. Get help right away. Call (more content not included)... [facility] 02-08-2025 Note Progress Note-Physic mich Patient: BHUPENDRA RUBI Age: 74 years Sex: Female : 1950 Associated Diagnoses: None Author: Dre Robert Jr., DO Preoperative Information Anesthesia history: Patient history: No prior anesthetic problems. Informed consent: Signed by patient. Re-evaluation prior to induction: Initial evaluation reviewed: No significant change. Review of Systems Respiratory: Negative except as documented in history of present illness. Cardiovascular: Negative except as documented in history of present illness. Health Status Allergies: Allergic Reactions (Selected) No Known Allergies No Known Medication Allergies, Allergies (2) Active Severity Reaction No Known Allergies None Documented No Known Medication Allergies None Documented Current medications: (Selected) Inpatient Medications Ordered Lactated Ringers IV Brea 1000 mL 1,000 mL: 1,000 mL, IV, 100 mL/hr, Routine, Start date 02/08/25 9:37:00 EDT, 10 hour(s), Total volume (mL): 1,000, 63.6 kg, 1.68, m2 Sodium Chloride 0.9% IV Brea 1000 mL 1,000 mL: 1,000 mL, IV, 20 mL/hr, Routine, Start date 02/08/25 7:33:00 EDT, 50 hour(s), Total volume (mL): 1,000, 63.6 kg, 1.68, m2 Prescriptions Prescribed Levsin 0.125 mg SL Tab: 0.25 mg = 2 tab(s), Oral, QID, PRN for spasm, # 80 tab(s), Refills(s) 0, Pharmacy: [id number], 159, cm, 01/30/25 12:14:00 EDT, Height/Length Dosing, 63.6, kg, 01/30/25 12:14:00 EDT, Weight Dosing Trulance 3 mg oral tablet: 3 mg = 1 tab(s), Oral, Daily, # 30 tab(s), Refills(s) 6, Pharmacy: [facility] #[id number], 159, cm, 01/30/25 12:14:00 EDT, Height/Length Dosing, 63.6, kg, 01/30/25 12:14:00 EDT, Weight Dosing esomeprazole 40 mg Cap-EC: 40 mg = 1 cap(s), Oral, Daily, # 90 cap(s), Refills(s) 0, Pharmacy: [facility], 159, cm, 12/24/22 10:00:00 EDT, Height/Length Dosing, 67.6, kg, 12/24/22 10:00:00 EDT, Weight Dosing Documented Medications Documented Albuterol (Eqv-ProAir HFA) 90 mcg/inh inhalation aerosol: Refill(s) 0, 8 gm, INHALE 2 PUFFS BY MOUTH EVERY 4 HOURS NEEDED for SHORTNESS OF BREATH Eliquis 5 mg oral tablet: 5 mg = 1 tab(s), Refills(s) 0, Blood Thinner LORazepam 0.5 mg Tab: 0.5 mg = 1 tab(s), Oral, Refills(s) 0, Anxiety MiraLax: Refill(s) 0, Constipation atorvastatin 80 mg Tab: mg tab(s), Oral, Daily, Refills(s) 0, High cholesterol gabapentin 300 mg Cap: mg cap(s), Oral, TID, Refills(s) 0, Neuropathy lacosamide 100 mg oral tablet: 100 mg = 1 tab(s), Refills(s) 0, Seizure lamotrigine 150 mg Tab: 150 mg = 1 tab(s), Refills(s) 0 losartan 25 mg Tab: 25 mg = 1 tab(s), Refills(s) 0, High blood pressure traZODONE 100 mg Tab: 100 mg = 1 tab(s), Oral, Refills(s) 0, Home Medications (13) Active Albuterol (Eqv-ProAir HFA) 90 mcg/inh inhalation aerosol atorvastatin 80 mg Tab , Oral, Daily Eliquis 5 mg oral tablet 5 mg = 1 tab(s) esomeprazole 40 mg Cap-EC 40 mg = 1 cap(s), Oral, Daily gabapentin 300 mg Cap , Oral, TID lacosamide 100 mg oral tablet 100 mg = 1 tab(s) lamotrigine 150 mg Tab 150 mg = 1 tab(s) Levsin 0.125 mg SL Tab 0.25 mg = 2 tab(s), PRN, Oral, QID LORazepam 0.5 mg Tab 0.5 mg = 1 tab(s), Oral losartan 25 mg Tab 25 mg = 1 tab(s) MiraLax traZODONE 100 mg Tab 100 mg = 1 tab(s), Oral Trulance 3 mg oral tablet 3 mg = 1 tab(s), Oral, Daily , Medications (2) Active Scheduled: (0) Continuous: (2) Lactated Ringers 1,000 mL 1,000 mL, IV, 100 mL/hr Sodium Chloride 0.9% 1,000 mL 1,000 mL, IV, 20 mL/hr PRN: (0) Problem list: All Problems Acid reflux / SNOMED CT 680415345 / Confirmed Bilateral flank pain / SNOMED CT 407518765 / Confirmed Bloating / SNOMED CT 838727925 / Confirmed Chronic constipation / SNOMED CT 512089420 / Confirmed Dysuria / SNOMED CT 06380960 / Confirmed Heart disease / SNOMED CT 77351510 / Confirmed History of colon polyps / SNOMED CT 4199151838 / Confirmed History of prolapse of bladder / SNOMED CT 942499682 / Confirmed Hyperlipidemia / SNOMED CT 26372392 / Confirmed Hypertension / SNOMED CT 2431462314 / Confirmed Infrequent urination / SNOMED CT 436666782 / Confirmed Mixed incontinence / SNOMED CT 64045947 / Confirmed Personal history of transient ischemic attack / SNOMED CT 8402681462 / Confirmed Straining during bowel movements / SNOMED CT 43726043 / Confirmed Stress-related physiological response affecting medical condition / SNOMED CT 27783863 / Confirmed Tobacco use / SNOMED CT 7736006140 / Confirmed Upper abdominal pain / SNOMED CT 519978458 / Confirmed Histories Past Medical History: No active or resolved past medical history items have been selected or recorded. Procedure history: Introduction of tension free vaginal tape (431167119) in 1989 at 39 Years. Hysterectomy (287130510). Cholecystectomy (42445525). Rotator cuff (00778766). Colonoscopy (131965258). Social History Social & Psychosocial Habits Tobacco 01/30/2025 Tobacco Use: 10 or more (more content not included)... [facility] Comment on above: Result Comment: Elec tronically Signed By: Dre Robert Jr., DO.br\Date and Time Signed: 02/08/25 09:38 EDT 02-07-2025 History of Present illness Narrative Associated Problem(s): Seizure (HCC) --- presumed epilepsy. Likely focal onset given infarcts. Driving - does not drive. WWE - postmenopausal. (Continue current regimen.) LTG, LCM levels. Orders: lacosamide (Vimpat) 100 MG tablet; Take 1 tablet (100 mg) by mouth in the morning and 1 tablet (100 mg) before bedtime. Associated Problem(s): Carotid stenosis, bilateral US carotids - NOMS. Orders: Vascular US carotid artery duplex bilateral; Future Associated Problem(s): Sequelae of cerebral infarction (Continue current regimen.) Echo c bubble study. Associated Problem(s): Gait disturbance PT (YOANDYS Dre). Images from the original note were not included. Outpatient Progress Note Patient: Bhupendra Rubi Dept: Neurology : 1950 Appt Date: 02/07/2025 Prev Appt: Visit date not found Chief Complaint Patient presents with Cerebrovascular Accident Appointment Note -- CVA Assessment and Plan - Assessment & Plan Seizure (HCC) --- presumed epilepsy. Likely focal onset given infarcts. Driving - does not drive. WWE - postmenopausal. (Continue current regimen.) LTG, LCM levels. Orders: lacosamide (Vimpat) 100 MG tablet; Take 1 tablet (100 mg) by mouth in the morning and 1 tablet (100 mg) before bedtime. Carotid stenosis, bilateral US carotids - NOMS. Orders: Vascular US carotid artery duplex bilateral; Future Sequelae of cerebral infarction (Continue current regimen.) Echo c bubble study. Gait disturbance PT (NOMS Dre). No orders of the defined types were placed in this encounter. Follow-Up - Follow up in about 2 months (around 04/10/2025). Lab Frequency Next Occurrence Ambulatory referral to Neurology Once 12/01/2024 CT abdomen pelvis w IV contrast Once 12/21/2024 Ambulatory referral to Neurology Once 01/04/2025 Ambulatory referral to Gastroenterology Once 01/04/2025 History of Present Illness, Associated Treatments and Results - Dx SEIZURE Tx LTG 150 + LCM 100 q12 [] (+ GBP --?RLS) AEs Hx Event in Jun 2024, upper body shaking, confused, not responding, dur 10', resolved by the time ambulance arrived. Adm Griselda, teleneurology recommended adding LCM. Failed Onset Semeiology Aetiology Trigger Preg EEG (06/2024, [place], apparently while adm Griselda) - stuporous, gen theta; also read as asymmetry incr background L hem, no mention of skull defect, interp'd as L hem dysfunction Amb EEG VEEG (06/2024, [facility], 2 d) - stupor/theta, improving to lethargy/6 Hz, then to alert/9 Hz; SW T7>F7 x 2, T8>P8 x 1 ASHWINI MR PET SPECT Imaging Testing Surgery Born - at term , labor and delivery - normal Congenital anomalies - absent complications - absent Meningitis/encephalitis - absent Head trauma - none Structural lesions - present - strokes Febrile seizures - none FHx epilepsy - absent FHx febrile sz - absent Dx CVA . CAROTIDS Tx (+ atorva) AEs Hx Difficult, highly tangential history. Onset 2011 Semeiology Aphasia, R arm weakness Imaging MR brain (09/2024, [place]) - infarct L post fro-par-tem +GRE, R fro, L cbl, R>L caudate . . . . (06/2024, [place]) - similar Testing Surgery carotid endarterectomy (~2011, [facility]) Failed Dx GAIT Tx AEs Hx Instability noted on exam. Onset Semeiology Imaging Testing Surgery Failed Physical Exam - General appearance, mentation, extraocular movements, facial strength and movement, hearing, upper and lower extremity strength and tone, sensation to gross testing, coordination, and gait are normal or at baseline unless noted below. HEENT - ___, unchanged: ___, orig: ___ MS - ___, unchanged: ___, orig: ___ CNN - ___, unchanged: ___, orig: Dysarthria Motor - ___, unchanged: ___, orig: RUE 4/5 generally Sens - ___, unchanged: ___, orig: ___ Reflex - ___, unchanged: ___, ori/4 RUE generally Coord - ___, unchanged: ___, orig: Zachary slow R ... Romberg 1+ but then also with tactile feedback Gait - ___, unchanged: ___, orig: Wide, decr arm swing R ... Tandem 3+ Vestib - ___, unchanged: ___, orig: ___ MSK - ___, unchanged: ___, orig: ___ Other - ___, unchanged: ___, orig: ___ GENERAL EXAMINATION Appearance: in no acute distress, well developed, well nourished. Head: normocephalic, atraumatic. Eyes: pupils equal, round, reactive to light and accommodation. Ears: normal. Mouth: mucosa moist. Throat: clear. Neck: neck supple, full range of motion, no cervical lymphadenopathy. Skin: no suspicious lesions, warm and dry. Heart: no murmurs, regular rate and rhythm, S1, S2 normal. Lungs: clear to auscultation bilaterally. Abdomen: normal, bowel sounds present, soft, nontender, nondistended. Extremities: no clubbing, cyanosis, or edema. NEUROLOGICAL EXAMINATION Mental Status: The patient is alert and oriented to person, place, and time. Except as noted, thought content, form, and comprehension was normal. Phonation, articulation, resonance, and prosody are normal. Cranial Nerves: Pupils were 4.0 millimeters, equal, round, and reactive to light and accommodation, both directly and consensually. Visual isidro were full by confrontation. There was no ptosis; extra-ocular movements were full; and there was no nystagmus. Funduscopic exam is normal. Masseters are of normal strength. Facial movement is normal. Hearing is grossly intact. There is no dysarthria. The gag reflex is equal bilaterally. Sternocleidomastoids and trapezii are of normal strength. The tongue protrudes in the midline. Motor: Muscle testing was performed in all four extremities, including at least clinical laboratory scientist, finger abductors, biceps, triceps, deltoid, toe flexors and extensors, tibialis anterior, triceps surae, quadriceps femoris, biceps femoris, and iliopsoases. Tone is normal. Muscle bulk is normal. Fasciculations are not seen . Pronator drift was not evident. Sensory: Sensation to touch, temperature, and vibration was normal in the arms, legs and face. Romberg is negative. Reflexes: Biceps, triceps, brachioradialis are 2/4 bilaterally. Patellar and Achilles reflexes are 2/4 bilaterally. Plantar responses were flexor bilaterally. Coordination: Dysmetria and dysdiadochokinesia are absent. Tremor is absent; dystonia is absent; chorea is absent. Gait And Station: Station and gait are normal. Apraxia and spasticity are not evident. Arm swing is normal. Toe, heel, and tandem walking are performed without difficulty. Musculoskeletal: Trigger-point tenderness was absent. There is no spasm of the trapezii or paraspinals. Vital Signs - Visit Vitals Ht 5' 2 Wt 149 lb BMI 27.25 kg/m OB Status Hysterectomy Smoking Status Former BSA 1.72 m Review of Systems - . Const: Denies appetite change, fever, chills. Allergy: Denies medication reaction. Ocular: Denies visual acuity change. ENT: Denies hearing change. Endoc: Denies weight loss. Resp: Denies dyspnoea, wheezing. Cardiac: Denies angina, palpitations. GI: Denies nausea, vomiting. Haem: Denies bleeding. : Denies incontinence. MSK: Denies arthralgias, joint oedema. Derm: Denies rash, hair loss. Neuro: Denies ataxia, tremor. Also see HPI for elements of ROS documented therein and for details of positive findings, which shall supersede the foregoing. PMH, PSH, Allergies, FH, SH - Past Medical History: Diagnosis Date Abdominal pain [...] HYSTERECTOMY ROTATOR CUFF REPAIR Bilateral TUBAL LIGATION No Known Allergies Family History Problem Relation Name Age of Onset Cancer Mother Lung Other cancer Sister Blood Clots Stroke Son Cancer Mother's Sister Outpatient Encounter Medications as of 02/07/2025 Medication Sig Dispense Refill albuterol HFA 90 mcg/act inhaler Inhale 2 puffs every 4 (four) hours if needed for wheezing or shortness of breath 6.7 g 0 apixaban (Eliquis) 5 MG tablet Take 1 tablet (5 mg) by mouth in the morning and 1 tablet (5 mg) before bedtime. 180 tablet 0 atorvastatin (Lipitor) 80 MG tablet Take 1 tablet (80 mg) by mouth Daily 90 tablet 0 Jpvvidg-Odkftrkqzxn-Uyctcecihv (Breztri Aerosphere) 160-9-4.8 MCG/ACT aerosol Inhale 2 puffs in the morning and 2 puffs before bedtime. 10.7 g 2 gabapentin (Neurontin) 300 MG capsule Take 1 capsule (300 mg) by mouth in the morning and 1 capsule (300 mg) in the evening and 1 capsule (300 mg) before bedtime. 270 capsule 0 lacosamide (Vimpat) 100 MG tablet Take 1 tablet (100 mg) by mouth in the morning and 1 tablet (100 mg) before bedtime. 60 tablet 1 lamoTRIgine (LaMICtal) 150 MG tablet Take 1 tablet (150 mg) by mouth Daily 30 tablet 1 LORazepam (Ativan) 0.5 MG tablet Take 1 tablet (0.5 mg) by mouth Daily as needed for anxiety for up to 15 days 15 tablet 0 losartan (Cozaar) 25 MG tablet Take 1 tablet (25 mg) by mouth Daily 90 tablet 1 pantoprazole (ProtoNix) 40 MG EC tablet Take 1 tablet (40 mg) by mouth in the morning and 1 tablet (40 mg) before bedtime. Do not crush, chew, or split. 60 tablet 1 traZODone (Desyrel) 100 MG tablet Take 1 tablet (100 mg) by mouth at bedtime 90 tablet 1 No facility-administered encounter medications on file as of 02/07/2025. Neyda Lockwood M.D. [facility] Neurology ? [address] ? [place], [place] [address] ? ? fax Neurology ? Clinical Neurophysiology ? Epilepsy ? Sleep Disorders ? Clinical Informatics documented in this encounter [facility] 01-30-2025 Evaluation + Plan note Future Scheduled PxsztRubny-8-Suflcinzsrz 01/30/25Antimitochondrial Antibody, Quantitative 01/30/25Alkaline Phosphatase Isoenzymes 01/30/25Smooth Muscle Antibody Screen 01/30/25ANA w/Reflex if POS 01/30/25IgG, Quant. 01/30/[address] [facility] 01-26-2025 History of Present illness Narrative Associated Problem(s): Infrarenal abdominal aortic aneurysm (AAA) without rupture Call was placed to vascular office Associated Problem(s): CVA (cerebral vascular accident) (HCC) recent hospitalization at [facility] around 10/04/24, was also sent to [...] seen Scheduled with Dr Lockwood for 02/07/25 Associated Problem(s): Adenocarcinoma of left lung (HCC) Continue with oncology Associated Problem(s): Cigarette nicotine dependence with nicotine-induced disorder The patient has been advised of the risks of continued smoking: stroke, VT, all forms of cancer, lung disease, and . Options for quitting smoking include: cold turkey, hypnosis, acupuncture, nicotine replacement meds (gum, lozenges, and patches), Buproprion, and Varenicline. At this time pt is encouraged to evaluate their goals for wanting to quit smoking, and reach out to provider when ready to start this process Associated Problem(s): Chronic abdominal pain DD: constipation, [...] will need to see GI as scheduled Associated Problem(s): Hypertension Please check blood pressure daily and record DASH diet Limit caffeine Take medication as directed Contact office if chest pain, pressure, dizziness, shortness of breath, swelling legs Recommend slow position changes Meds: losartan Associated Problem(s): Carcinoma in situ of ascending colon Hx of this noted Has GI appt for 01/30/25 Associated Problem(s): Gastroesophageal reflux disease Pantoprazole Has GI appt scheduled for 01/30/25 Associated Problem(s): Tobacco dependency (Resolved 01/26/2025) The patient has been advised of the risks of continued smoking: stroke, VT, all forms of cancer, lung disease, and . Options for quitting smoking include: cold turkey, hypnosis, acupuncture, nicotine replacement meds (gum, lozenges, and patches), Buproprion, and Varenicline. At this time pt is encouraged to evaluate their goals for wanting to quit smoking, and reach out to provider when ready to start this process Appt is next Thursday with dr meredith Neal range is 91-93% Images from the original note were not included. Bhupendra Rubi is a 74 y.o. female presents with chief complaint of No chief complaint on file. HPI: Here for a recheck, multiple complaints. She continues to have abd pain, vague in description, does report issues with constipation, she is prescribed linzess, in one breath she states she has diarrhea and cannot go anywhere, then another breath she has to force her self to have a BM. I did question about how she takes the linzess, she does not take daily, she also reports a lot of gas related pain, which she was given a script for anti spasmodic that did not do anything. She has a hx of stroke, which she continues to have intermittent sxs, as described before, she was referred on [facility] in 12/04, d/t her hx of having had a stroke, it is required that the [place] be seen in [place] not [place], the pt and SO declined going to [place] for this. She is also not happy with local Neurologist in [place]. I did place a referral for Neurology again on 01/04/25, no appt has been made. While pt was in office today, Kevin Hendrix MA pt tonya called Dr Lockwood's office, and scheduled pt for an appt for 02/07/25, this info was given to the patient's SO at the time of the visit SUBJECTIVE: MEDICATIONS: Current Outpatient Medications Medication Instructions albuterol HFA 90 mcg/act inhaler 2 puffs, Inhalation, Every 4 hours PRN apixaban (ELIQUIS) 5 mg, Oral, 2 times daily atorvastatin (LIPITOR) 80 mg, Oral, Daily Pqxtvod-Byhviclwpzw-Hlmzhtivxr (Breztri Aerosphere) 160-9-4.8 MCG/ACT aerosol 2 puffs, Inhalation, 2 times daily gabapentin (NEURONTIN) 300 mg, Oral, 3 times daily lacosamide (VIMPAT) 100 mg, Oral, 2 times daily lamoTRIgine (LAMICTAL) 150 mg, Oral, Daily LORazepam (ATIVAN) 0.5 mg, Oral, Daily PRN losartan (COZAAR) 25 mg, Oral, Daily pantoprazole (PROTONIX) 40 mg, Oral, 2 times daily, Do not crush, chew, or split. traZODone (DESYREL) 100 mg, Oral, Nightly ALLERGIES: No Known Allergies REVIEW OF SYMPTOMS: Review of Systems Constitutional: Positive for fatigue. Negative for appetite change, chills and fever. HENT: Negative for congestion, ear pain and sore throat. Eyes: Negative for pain, discharge, redness and visual disturbance. Respiratory: Negative for cough, shortness of breath and wheezing. Cardiovascular: Negative for chest pain, palpitations and leg swelling. Gastrointestinal: Positive for abdominal pain, constipation and diarrhea. Negative for blood in stool, nausea and vomiting. Gas pain Genitourinary: Negative for difficulty urinating, dysuria and frequency. Musculoskeletal: Positive for arthralgias. Negative for back pain, joint swelling and myalgias. Skin: Negative for rash and wound. Neurological: Positive for dizziness, tremors and weakness. Negative for seizures, syncope and headaches. Psychiatric/Behavioral: Negative for behavioral problems, self-injury and suicidal ideas. The patient is nervous/anxious. Depression Hematological: Does not bruise/bleed easily. Endocrine: Negative [...] in her son. OBJECTIVE: Visit Vitals BP 140/84 (BP Location: Left arm, Patient Position: Sitting, BP Cuff Size: Adult long) Pulse 96 Temp 97.8 F (Temporal) Resp 20 Wt 140 lb 9.6 oz SpO2 93% BMI 25.72 kg/m OB Status Hysterectomy Smoking Status Former BSA 1.67 m Physical Exam Vitals and nursing note [...] Tenderness: There is no abdominal tenderness (generalized about the abd). Musculoskeletal: General: Normal range of motion. Cervical back: Normal range of motion and neck supple. Skin: General: Skin is warm and dry. Capillary Refill: Capillary refill takes 2 to 3 seconds. Findings: No rash. Neurological: Mental Status: She is alert. Comments: No changes in baseline neuro exam Psychiatric: Mood and Affect: Mood normal. Behavior: Behavior normal. Thought Content: Thought content normal. Judgment: Judgment normal. ASSESSMENT AND PLAN: Follow up in about 3 months (around 04/28/2025) for Recheck. Problem List Items Addressed This Visit Infrarenal abdominal aortic aneurysm (AAA) without rupture Hypertension Please check blood pressure daily and record DASH diet Limit caffeine Take medication as directed Contact office if chest pain, pressure, dizziness, shortness of breath, swelling legs Recommend slow position changes Meds: losartan RESOLVED: Tobacco dependency The patient has been advised of the risks of continued smoking: stroke, VT, all forms of cancer, lung disease, and . Options for quitting smoking include: cold turkey, hypnosis, acupuncture, nicotine replacement meds (gum, lozenges, and patches), Buproprion, and Varenicline. At this time pt is encouraged to evaluate their goals for wanting to quit smoking, and reach out to provider when ready to start this process Chronic abdominal pain - Primary DD: constipation, [...] will need to see GI as scheduled Carcinoma in situ of ascending colon Hx of this noted Has GI appt for 01/30/25 Malignant neoplasm of unspecified part of left bronchus or lung (HCC) Adenocarcinoma of left lung (HCC) Continue with oncology CVA (cerebral vascular accident) (HCC) recent hospitalization at [facility] around 10/04/24, was also sent to [...] seen Scheduled with Dr Lockwood for 02/07/25 Gastroesophageal reflux disease Pantoprazole Has GI appt scheduled for 01/30/25 Cigarette nicotine dependence with nicotine-induced disorder The patient has been advised of the risks of continued smoking: stroke, VT, all forms of cancer, lung disease, and . Options for quitting smoking include: cold turkey, hypnosis, acupuncture, nicotine replacement meds (gum, lozenges, and patches), Buproprion, and Varenicline. At this time pt is encouraged to evaluate their goals for wanting to quit smoking, and reach out to provider when ready to start this process documented in this encounter [facility] 01-26-2025 Instructions Wendy Burden NP - 01/26/2025 10:30 AM EDT Appt with GI: next week Neurology: [facility] building on [address] documented in this encounter [facility] 01-04-2025 Radiology Diagnostic study note [facility] [address] [place] [address] Ultrasound Report Signed Patient: Bhupendra Rubi MR#: [id number] : 1950 Acct:[id number] Age/Sex: 74 / F ADM Date: 5 Loc: [facility] Room: Type: [facility] Attending Dr: Adam Keller MD Ordering Provider: Adam Keller MD Date of Service: 01/04/25 US/US aorta: I71.40 - Abdominal aortic aneurysm, without rupture, unsp... Copies to: Adam Keller MD~ ULTRASOUND OF THE ABDOMINAL AORTA: CLINICAL INFORMATION: Infrarenal abdominal aortic aneurysm COMPARISON : 3.4 cm infrarenal abdominal aortic aneurysm from prior CT scan dated April 2024. TECHNIQUE AND FINDINGS: Multiple ultrasonographic scans of the abdominal aorta were obtained and show: Following measurement were obtained: Proximal height: 2.46 cm width : 2.5 cm Mid height: 3.03 cm width : 2.0 cm Distal height: 3.35 cm width : 3.6 cm US/US aorta IMPRESSION: 3.6 cm, stable, infrarenal abdominal aortic aneurysm without, complicating features. Impression dictated by: Nigel Valladares MD,FACS,FSVS 01/04/2025 2:59 PM Dictation Location: [place] [address] Tech: Yakelin Gibson Transcribed By: PWS 01/04/251458 Dictated By: Nigel Valladares MD 01/04/251457 Signed By: 01/04/251458 [facility] Work Phone: 01-04-2025 Evaluation note Diagnosis Onset Date Resolution Abdominal aortic aneurysm (AAA) 3.0 cm to 5.0 cm in diameter in female acute January 04, 2025 9:40am Abdominal pain acute February 2:51pm Altered mental status acute Feb 2:51pm Breakthrough seizure acute 2024 2:51pm Current smoker acute February 2:51pm Hypoxia acute February 11 2:51pm Mass of upper lobe of left lung acute February 11, 2025 2:51pm Non-small cell lung cancer acute February 11, 2025 2:51pm Seizure acute February 11 2:51pm Seizure-like activity acute Feb 2:51pm [facility] Work Phone: 1(892) 863-586406-11-2025 History of Present illness Narrative* Wendy Burden, SUPERVISOR [employer]AR - 12/21/2024 6:35 PM EDTAssociated Problem(s): Tobacco dependency The patient has been advised of the risks of continued smoking: stroke, VT, all forms of cancer, lung disease, and [...] laying sitting eating; everything. documented in this encounterMet[facility] [id number] Instructions* Patient Instructions* Wendy Burden NP - 12/21/2024 4:00 PM EDT We will order CT scan abd/pelvis area First get labs completed for me Stop nexium (esomeprazole), we will trial pantoprazole 40mg daily documented in this encounterMetropolitan [facility] [id number] Miscellaneous Notes* Telephone Encounter - Brenna Morel - 12/19/2024 [...] Abdi Kimble and patient was admitted to [place]. What is a good call back number? [place] [phone] Please Advise. Would patient need to schedule [...] scheduling an appt with the patient when television writer was giving the address and sherealized we are located in [place]. She stated she doesn't want [place] and that she will not go to [place]. She then disconnected the call Salesforce Trainer canceled the appt. [facility] Telephone encounter Note* Telephone Encounter - Brenna Morel - 12/19/2024 [...] Abdi Kimble and patient was admitted to [place]. What is a good call back number? [place] [phone] Please Advise. Would patient need to schedule new patient appointment with stroke or general neurology? Patient significant other is requesting a call back to schedule. Thank you so much. [facility]06-09-2025 Telephone encounter Note* Telephone Encounter - Stephanie Crawford RN - 12/19/2024 12:56 PM EDT Okay to schedule with carlos/fellow/homar. [facility]06-09-2025 Telephone encounter Note* Telephone Encounter - Isabella Stokes - 12/19/2024 12:56 PM EDT Was in the middle of scheduling an appt with the patient when television writer was giving the address and sherealized we are located in [place]. She stated she doesn't want [place] and that she will not go to [place]. She then disconnected the call Salesforce Trainer canceled the appt. [facility]05-05-20[facility] Evaluation note* Diagnosis Onset Date Resolution Status Admit Date Non-small cell lung cancer acute November 14, 2024 11:18am [facility] Work Phone: 1(428) 512-950605-05-2025 Evaluation note* Diagnosis Onset Date Resolution Status Admit Date Non-small cell lung cancer acute November 14, 2024 11:18am Abdominal aortic aneurysm (A AA) 3.0 cm to 5.0 cm in diameter in female acute January 04, 2025 9:40am [facility] Work Phone: 1(661) 718-321405-05-2025 Evaluation note* Diagnosis Onset Date Resolution Status Admit Date Non-small cell lung cancer acute November 14, 2024 11:18am Abdominal aortic aneurysm (A AA) 3.0 cm to 5.0 cm in diameter in female acute January 04, 2025 9:40am Abdominal pain acute February 2:51pm Altered mental status acute Feb 2:51pm Hypoxia acute February 11 2:51pm Mass of upper lobe of left lung acut e February 11, 2025 2:51pm Seizure acute February 11 2:51pm [facility] Work Phone: 1(371) 367-283804-17-2025 History of Present illness Narrative* Wendy Burden NP - 10/27/2024 4:59 PM EDTAssociated Problem(s): Adenocarcinoma of left lung (CMS/HCC) Continue with oncology * Wendy Burden NP - 10/27/2024 10:30 AM EDT Images from the original note were not included. Bhupendra Rubi is a 74 y.o. female presents with chief complaint of No chief complaint on file. HPI: Here for hospital/ care home fu: [facility] ER for CVA 10/04/24, then to [place] for rehab See notes for hospital notes [...] daily atorvastatin (LIPITOR) 80 mg, Oral, Daily Kmcjqae-Soayueglfak-Bywqcgnsjo (Breztri Aerosphere) 160-9-4.8 MCG/ACT aerosol 2 puffs, [...] look, she was taking losartan 25mg daily, howeverI think that it may have been omitted when in hospital, so I will re order, as I do not think it should be discontinued Relevant Medications losartan (Cozaar) 25 MG tablet Peripheral polyneuropathy Follows with Neurology for this Current meds: lacosamide, gabapentin Tobacco dependency The patient has been advised of the risks of continued smoking: stroke, VT, all forms of cancer, lung disease, and . Options for quitting smoking include: cold turkey, hypnosis, acupuncture, nicotine replacement meds(gum, lozenges, and patches), Buproprion, and Varenicline. At this time pt is encouraged to evaluate their goals for wanting to quit smoking, and reach out toprovider when ready to start this process Screening mammogram for breast cancer Relevant Orders Bilateral screening mammogram Malignant neoplasm of unspecified part of left bronchus or lung (CMS/HCC) Adenocarcinoma of left lung (CMS/HCC) Continue with oncology CVA (cerebral vascular accident) (CMS/HCC) - Primary recent hospitalization at [facility] around 10/04/24, was also sent to [place] for rehab as well Current meds: eliquis [...] MG tablet atorvastatin (Lipitor) 80 MG tablet * Wendy Burden NP - 10/27/2024 6:54 AM EDTAssociated Problem(s): Hypertension (CMS/HCC) Does not take any medications for this, at closer look, she was taking losartan 25mg daily, howeverI think that it may have been omitted when in hospital, so I will re order, as I do not think it should be discontinued * Wendy Burden NP - 10/27/2024 6:46 AM EDTAssociated Problem(s): Peripheral polyneuropathy Follows with Neurology for this Current meds: lacosamide, gabapentin * Wendy Burden NP - 10/27/2024 6:45 AM EDTAssociated Problem(s): Tobacco dependency The patient has been advised of the risks of continued smoking: stroke, VT, all forms of cancer, lung disease, and . Options for quitting smoking include: cold turkey, hypnosis, acupuncture, nicotine replacement meds(gum, lozenges, and patches), Buproprion, and Varenicline. At this time pt is encouraged to evaluate their goals for wanting to quit smoking, and reach out toprovider when ready to start this process * Wendy Burden NP - 10/27/2024 6:44 AM EDTAssociated Problem(s): Hyperlipidemia (CMS/HCC) On statin therapy Check labs yearly and prn dose changes * Wendy Burden NP - 10/27/2024 6:43 AM EDTAssociated Problem(s): CVA (cerebral vascular accident) (CMS/HCC) recent hospitalization at [facility] around 10/04/24, was also sent to [...] to let me know documented in this encounterMetropolitan [facility] [id number] Instructions* Patient Instructions* Wendy Burden NP - 10/27/2024 10:30 AM EDT Mammogram: [facility], they will call to schedule you Please call Neurology office to get an appointment documented in this encounterMetropolitan Saint [facility] Psychiatric [id number] History of Present illness Narrative* TIAGO Garcia - 09/26/2024 10:40 AM EDT Images from the original note [...] Review Audit Reviewed by Yakelin Powell MA (Level Designer) on 09/26/24 at 1022 Medication Order Taking? Sig Documenting Provider Last Dose Status albuterol HFA 90 mcg/act inhaler [id number] Inhale 2 puffs every 4 (four) hours if needed for wheezing or shortness of breath Shaikh Aung MD Active atorvastatin (Lipitor) 80 MG tablet [id number] Take 1 tablet (80 mg) by mouth Daily Chris Singh NP 08/02/24 235 Ozfccry-Wmvumcapkqo-Qtukdnkreb (Breztri Aerosphere) 160-9-4.8 MCG/ACT aerosol [id number] Inhale 2 puffs in the morning and 2 puffs before bedtime. Chris Singh NP Active ezetimibe (Zetia) 10 MG tablet [id number] Take 1 tablet (10 mg) by mouth in the morning. Shaikh Aung MD 08/02/24 235 gabapentin (Neurontin) 300 MG capsule [id number] Take 1 capsule (300 mg) by mouth in the morning and 1 capsule (300 mg) in the evening and 1 capsule (300 mg) before bedtime. Chris Singh NP Active lacosamide (Vimpat) 150 mg tablet tablet [id number] Take 150 mg by mouth in the morning and 150 mg inthe evening. Active lamoTRIgine (LaMICtal) 100 MG tablet [id number] Take 100 mg by mouth in the morning. Do not start before July 28, 2024. Active losartan (Cozaar) 25 MG tablet [id number] Take 25 mg by mouth in the morning. Active rOPINIRole (Requip) 0.5 MG tablet [id number] Take 1 tablet (0.5 mg) by mouth at bedtime Shaikh Aung MD Active traZODone (Desyrel) 100 MG tablet [id number] Take 1 tablet (100 mg) by mouth [...] has increased since June when she was startedon medications. ROS Review of Systems Constitutional: Positive [...] pin prick in the right side. Coordination Ikpqlh-pm-wjzs, rapid alternating movements and dblk-lx-gsjo normal bilaterally without dysmetria. Gait Normal casual, toe, heel and tandem gait. Motor Examination RUE Strength deltoid, biceps, triceps, wrist extensors, wrist extensors, wrist flexor, clinical laboratory scientist strength 4/5. LUE Strength deltoid, biceps, triceps, wrist extensors, wrist extensors, wrist flexor, clinical laboratory scientist strength 5/5. RLE Strength illopsoas, quadriceps, tibialis [...] seizure-like episode in June and went to [facility] and then transferred to [place]. The episode that she had presented as upper body shaking with confusion after that lasted about 15 minutes and was over by the time EMS arrived. She had an MRI of the brain 06/2024 with no acute abnormality noted.The patient had a LTME that revealed left [...] up in 4 weeks documented in this encounterMetropolitan Saint [facility] Psychiatric [id number] History of Present illness Narrative* Romel Sampson MD - 08/02/2024 12:30 PM EST Images from the original note were [...] Review Audit Reviewed by Lashaun Reynaga MA (Level Designer) on 08/02/24 at 1158 Medication Order Taking? Sig Documenting Provider Last Dose Status albuterol HFA 90 mcg/act inhaler [id number] Inhale 2 puffs every 4 (four) hours if needed for wheezing or shortness of breath Shaikh Aung MD Active atorvastatin (Lipitor) 80 MG tablet [id number] Take 1 tablet (80 mg) by mouth Daily Chris Singh NP Active Zsakhaq-Paoapwtfkfw-Eynblasbns (Breztri Aerosphere) 160-9-4.8 MCG/ACT aerosol [id number] Inhale 2 puffs in the morning and 2 puffs before bedtime. Chris Singh NP Active ezetimibe (Zetia) 10 MG tablet [id number] Take 1 tablet (10 mg) by mouth in the morning. Shaikh Aung MD Active Discontinued 08/02/24 1054 Discontinued 08/02/24 1118 gabapentin (Neurontin) 300 MG capsule [id number] Take 1 capsule (300 mg) by mouth in the morning and 1 capsule (300 mg) in the evening and 1 capsule (300 mg) before bedtime. Chris Singh NP Active lacosamide (Vimpat) 150 mg tablet tablet [id number] Take 150 mg by mouth in the morning and 150 mg inthe evening. Active lamoTRIgine (LaMICtal) 100 MG tablet [id number] Take 100 mg by mouth in the morning. Do not start before July 28, 2024. Active Discontinued 08/02/24 1055 Discontinued 08/02/24 1055 losartan (Cozaar) 25 MG tablet [id number] Take 25 mg by mouth in the morning. Active Discontinued 08/02/24 1056 rOPINIRole (Requip) 0.5 MG tablet [id number] Take 1 tablet (0.5 mg) by mouth at bedtime Shaikh Aung MD 05/23/24 2358 Discontinued 08/02/24 1118 traZODone (Desyrel) 100 MG tablet [id number] Take 1 tablet (100 mg) by mouth at bedtime Chris Singh NP Active Discontinued 08/02/24 1057 HPI HPI Ms. Rubi is a 74 year old female who I was asked to see in neurological consultation at the request of Dr. Lundberg for seizures. She states that she has had 2 seizures. She was seen at [facility] and [facility] and was transferred to [place]. She admits LOC and body shaking. She denies any tongue biting or incontinence. She denies any recent head injury. She was diagnosed with lung cancer about 8 months ago. She is starting radiation tomorrow. She is currently on Vimpat and Lamictal. She takes these dailyand denies any missed doses. She denies any seizures since starting medication. She is not sleepingwell at night. She gets about 5 hours [...] pin prick in the right side. Coordination Apkbte-si-skew, rapid alternating movements and exqv-dt-nzln normal bilaterally without dysmetria. Gait Normal casual, toe, heel and tandem gait. Motor Examination RUE Strength deltoid, biceps, triceps, wrist extensors, wrist extensors, wrist flexor, clinical laboratory scientist strength 4/5. LUE Strength deltoid, biceps, triceps, wrist extensors, wrist extensors, wrist flexor, clinical laboratory scientist strength 5/5. RLE Strength illopsoas, quadriceps, tibialis [...] seizure-like episode in June and went to [facility] and then transferred to [place]. The episode that she had presented as [...] options. I have reviewed the records from [facility] and christine Continue Vimpat 150 mg bid for seizure [...] side effects from medications. documented in this encounterMetropolitan Saint Louis Psychiatric [id number] History of Present illness Narrative* Chris Samantha, SUPERVISOR POWDERED [employer]GAR - 08/02/2024 11:00 AM EST Subjective : Chief Complaint: Bhupendra Rubi is [...] mg) by mouth Daily 90 tablet 0 Bjifgth-Cwbgtzcphxu-Swhvfgkcjc (Breztri Aerosphere) 160-9-4.8 MCG/ACT aerosol Inhale 2 puffs in themorning and 2 puffs before bedtime. 10.7 g [...] by mouth in the morning and 1 capsule(300 mg) in the evening and 1 capsule [...] Singh NP as Nurse Practitioner (Family Medicine) Heonk Hendrix MA (Family Medicine) Medicare Annual Visit [...] reading the newspaper or watching television: Nearly everyday Moving or speaking so slowly that other people could have noticed? Or the opposite - being so fidgety or restless that you have been moving around a lot more than usual.: Several days Thoughts that you would be better off or hurting yourself in some way: Not at all Patient Health Questionnaire-9 Score: 10 Rahel Fall Risk History of Falling, Immediate or [...] Do you have a medical power of tax associate attorney?: Yes Who is your medical power of tax associate attorney?: charito russell Objective : BP 128/76 Pulse 107 Temp [...] on August 02, 2024 documented in this encounterMetropolitan Saint Louis Psychiatric [id number] Evaluation note* Diagnosis Onset Date Resolution Status Admit Date Non-small cell lung cancer acute July 28, 2024 1:45pm [facility] Work Phone: 1(276) 488-918801-06-2025 Miscellaneous Notes* Telephone Encounter - Lay Chacon - 07/18/2024 2:17 PM EST Henok from [facility] called to request a refill of the patient's lacosamide (VIMPAT) 150 mg tablet. Salesforce Trainer informed her that the prescription was sent on 06/17/2024 with 3 refills to [facility] Ellen voiced understanding and stated she would inform the patient documented in this encounterOhioHealth Grove City [facility] [employer] [id number] Telephone encounter Note* Telephone Encounter - Lay Chacon - 07/18/2024 2:17 PM EST Henok from [facility] called to request a refill of the patient's lacosamide (VIMPAT) 150 mg tablet. Sales[employer] Trainer informed her that the prescription was sent on 06/17/2024 with 3 refills to [facility] Ellen voiced understanding and stated she would inform the patient [facility] InstituteBI[facility]12-10-2024 NotePatient: Bhupendra Rubi Procedure Summary Date: 06/21/24 Room / Location: [facility] Surgery [facility]ce Endoscopy Anesthesia Start: 1343 Anesthesia Stop: 1444 [...] PACU per anesthesia protocol. No notable events documented.[facility]12-10-2024 Note Airway Date/Time: 06/21/2024 1:49 PM Urgency: elective General Information and Staff Patient location during procedure: OR Anesthesiologist: Jacki Rivas MD Resident/INTERIOR WIRER/MENDEZ: MENDEZ Guzman Performed: resident/INTERIOR WIRER/MENDEZ Indications and Patient Condition Indications for airway [...] approach: 1 Number of other approaches attempted: 0[facility] 06-21-2024 NotePatient: Bhupendra Wilburn Stephen Procedure Information Date/Time: 06/21/24 1200 Scheduled providers: Jacki Rivas MD; MENDEZ Guzman; Florinda Richard MD Procedure: DIAGNOSTIC COLONOSCOPY Location: [facility] Endoscopy Past Medical History: Diagnosis Date Anxiety [...] disease Neuro/Psych (+) CVA (cerebral vascular accident) ([facility]/HCC) Pulmonary (+) Moderate COPD (chronic obstructive pulmonary disease) ([facility]/HCC) Clinical information reviewed: Tobacco Allergies Meds Med Hx Surg Hx Fam Hx Soc Hx Physical Exam Airway Mallampati: II TM distance: >3 FB Neck ROM: full Cardiovascular - normal exam Dental (+) upper dentures, lower dentures Pulmonary - normal exam Abdominal - normal exam Other findings: RUE weakness s/p previous CVA Patient denies any seizure activity since being treated last week at [facility] Anesthesia Plan ASA 3 general (Due to new onset seizure like activity, spoke with neurologist who took care of patient at [facility]. Recommendation by neurology was to give [...] neuro events in perioperative period. Additional Equipment RequestsUnDoctors Hospital12-10-2024 Note Patient: Bhupendra Rubi Procedure Summary Date: 06/21/24 Room / Location: [facility] Endoscopy Anesthesia Start: 1343 Anesthesia Stop: 1444 Procedure: DIAGNOSTIC COLONOSCOPY Diagnosis: Polyp of ascending colon, unspecified type Colonic mass Scheduled Providers: Jacki Rivas MD; MENDEZ Guzman; Florinda Richard MD Responsible Provider: Jacki Rivas MD Anesthesia Type: general ASA Status: 3 Anesthesia Post Transport Note Transport to: PACU O2 Route: room air Patient Monitor: direct observation Transport: uneventful Patient condition is: stableUnDoctors Hospital12-10-2024 Miscellaneous Notes* Telephone Encounter - Casi Amilcar - 06/21/2024 8:11 AM EST ----- Message from Bailey Alba MD sent at 06/17/2024 2:34 PM EST ----- Please schedule this patient for a follow-up appointment in the resident clinic in 4-6 weeks of discharge Diagnosis: New onset seizures * Telephone Encounter - Kateryna Covarrubias - 06/21/2024 8:11 AM EST 1st attempt: Salesforce Trainer contacted patient and left a voicemail offering to schedule in with our clinic for a hospital follow up appointment as we have received a provider message requesting to see patient in office. Salesforce Trainer provided callback number for scheduling or to address any questions or concerns they may have. * Telephone Encounter - Ange Solorzano - 06/21/2024 8:11 AM EST 2nd attempt: Left message for patient documented in this encounterUniversity Hospitals [facility]12-10-2024 Telephone encounter Note* Telephone Encounter - Casi Fitzgerald - 06/21/2024 8:11 AM EST ----- Message from Bailey Alba MD sent at 06/17/2024 2:34 PM EST ----- Please schedule this patient for a follow-up appointment in the resident clinic in 4-6 weeks of discharge Diagnosis: New onset seizures [facility] [employer] [id number] Telephone encounter Note* Telephone Encounter - Kateryna Covarrubias - 06/21/2024 8:11 AM EST 1st attempt: Salesforce Trainer contacted patient and left a voicemail offering to schedule in with our clinic for a hospital follow up appointment as we have received a provider message requesting to see patient in office. Salesforce Trainer provided callback number for scheduling or to address any questions or concerns they may have. [employer]12-10-2024 Telephone encounter Note* Telephone Encounter - Ange Renteriadwin - 06/21/2024 8:11 AM EST 2nd attempt: Left message for patient [employer]11-19-2024 History of Present illness Narrative* Javier Villanueva, DO - 05/31/2024 10:30 AM EST Images from the original note were not included. Bhupendra Rubi 1950 Bhupendra Rubi is a 73 y.o. female presents with chief complaint of Follow-up HPI: HPI patient had her lung biopsy. She is waiting for results on that. She is scheduled to have her repeat colonoscopy on June 21. She is having that done in [place]. She has not having any abdominal pain. She has not having any blood in his stool. SUBJECTIVE: MEDICATIONS: ALLERGIES Current Outpatient Medications Medication Instructions albuterol HFA 90 mcg/act inhaler 2 puffs, Inhalation, Every 4 hours PRN atorvastatin (LIPITOR) 80 mg, Oral, Daily Quzfgjo-Fhsktmzbuqi-Pdwvzdnewf (Breztri Aerosphere) 160-9-4.8 MCG/ACT aerosol 2 puffs, [...] had this sent for 2nd opinion at [facility] and they did not identify any [...] week after her colonoscopy. documented in this encounterMetropolitan Saint Louis Psychiatric [id number] History of Present illness Narrative* Chris Singh [...] of ascending colon. Recently had EBUS at [facility], is scheduled for colonoscopy as well. Is [...] additional. Pathology reports pending. documented in this [facility]11-11-2024 Instructions* Patient Instructions* Chris Singh NP - 05/23/2024 10:30 AM EST Follow up with Dr. Lundberg's office this week. Have colonoscopy scheduled. Call if you need anything! documented in this encounterMetropolitan Saint Louis Psychiatric [id number] NoteAddendum created 05/20/24 1439 by Marilia Pennington MD Intraprocedure Meds editedNationwide Children's Hospital11-06-2024 Note Patient: Bhupendra Rubi Procedure Summary Date: 05/18/24 Room / Location: [facility] Main Operating Room Anesthesia Start: 1251 [...] PACU per anesthesia protocol. No notable events documented.[facility]11-06-2024 Note Patient's significant other at bedside. He states he was not updated post procedure by Dr. Warren or his fellow Dr. Hamlin. RN notified physician of family's request for update and chest xray was completed, but needs to be read prior to discharge.[facility]11-06-2024 NoteAirway Date/Time: 05/18/2024 12:57 PM Urgency: elective General Information and Staff Patient location during procedure: OR Anesthesiologist: Micky Hilliard MD Resident/INTERIOR WIRER/CAA: Marilia Pennington MD Performed: resident/INTERIOR WIRER/CAA Indications and Patient Condition Indications for airway [...] approach: 1 Number of other approaches attempted: 0[facility] 05-18-2024 NotePatient: hBupendra Wilburn Stephen Procedure Information Date/Time: 05/18/24 1230 Scheduled providers: Diana Warren MD; Micky Hilliard MD Procedure: BRONCHOSCOPY Location: [facility] Main Operating Room Relevant Problems Anesthesia [...] products. Plan discussed with resident. Additional Equipment RequestsNationwide Children's Hospital10-31-2024 Note Medications to take AM day [...] THE FOLLOWING ARE NOT AVAILABLE: An adult driver guide over the age of 18, that can [...] lenses. Do not wear perfume, make-up, nail maori, or lotions on the day of your [...] need to make any changes, please call [phone]. Notify your surgeon if you develop any illness such as a cold, cough, fever, sore throat or vomiting between now and your surgery. Thank you for entrusting us with your care. [facility] Surgical Services TeamNationwide Children's Hospital10-30-2024 Evaluation note* Diagnosis Onset Date Resolution Status Admit Date High grade dysplasia in colonic adenoma acute May 11 1:25pm History of hypotension acute Oc tob2023 1:25pm Mass of upper lobe of left lung acute May 11 1:25pm Non-small cell lung cancer acute July 28, 2024 1:45pm [facility] Work Phone: [phone] History of Present illness Narrative* Javier Villanueva, [...] PRN atorvastatin (LIPITOR) 80 mg, Oral, Daily Miiesre-Wgiombdjbee-Edfgtfuqho (Breztri Aerosphere) 160-9-4.8 MCG/ACT aerosol 2 puffs, [...] invasive adenocarcinoma . I Communicated with her police records clerk, he felt this was completely removed. I am sending her pathology to [facility] for 2nd opinion. Patient is having her lung mass worked up with a biopsy in [place] and is supposed to get a 2nd [...] I discussed that with Dr. Moon her police records clerk. documented in this encounterMetropolitan Saint Louis Psychiatric [id number] Note Attestation signed by Diana Warren MD [...] Age: 73 y.o. : 1950 Account No.: [id number] Referring physician: Dr. Lundberg Chief complaint: Lung [...] was initiated by the patient and conducted phd-bvvy-gn-face with use of audio-only real time telephone [...] no pruritus. Physical examination (more content not included)...[facility]09-13-2024 History of Present illness Narrative* Chris Singh, CLOTILDE - 03/25/2024 1:46 PM EDTAssociated Problem(s): Mass [...] therapy 2 weeks ago in addtion to [facility]; Lipid panel elevated. Recheck in 3 months [...] them to next visit. documented in this [facility]09-13-2024 Procedure [facility]09-12-2024 Instructions* Patient Instructions* Chris Singh NP - 03/24/2024 11:30 AM EDT Keep all appointments with specialists as scheduled Call if you need anything! documented in this [facility]09-13-2023 Evaluation note* Encounter Date Diagnosis Assessment [...] were addressed she understands agrees the plan. [facility] Other 07-31-2023 Evaluation note* Encounter Date Diagnosis Assessment Notes Treatment Notes Treatment Clinical Notes Jan, Abdominal aortic aneurysm (AAA) without rupture, unspecified part (ICD-10 - I71.40) We reviewed her abdominal CT imaging from outside facility at the [facility] which shows AAA 3.4 cm in greatest [...] her risk and is unmotivated to quit. [facility] Other 06-14-2023 Hospital Discharge instructions Patient Education [...] Follow these instructions at home: Medicines Take jjrx-zch-pljklcw and prescription medicines only as told by [...] Watch your condition for any changes. Take ihpx-exv-chlmcef and prescription medicines only as told by [...] provider. Document Revised: 08/17/2020 Document Reviewed: 11/07/2019 [employer] Patient Education 2022 [employer]. Follow Up Care 12/15/2022 11:25:23 With:Brigette Martini CNP Address: When:[address] [facility] 11-28-2022 Hospital Discharge instructions [...] fried and sweet foods. General instructions Take qsyc-mjj-svtkdht and prescription medicines only as told by [...] 04/25/2010 Document Revised: 10/20/2019 Document Reviewed: 07/15/2018 [employer] Patient Education 2020 [employer]. Follow Up Care 05/09/2022 11:00:12 With:TRISTA FARFAN, Armando Mckay, URL Address: [facility] [address], [place] [address]- When: Unknown [facility] evaluation + Plan note No data available for this section [facility] evaluation + Plan note Future Appointments Appointment Date:12/29/2022 10:30:00 AM Scheduled Provider: Location:.[facility] Appointment Type:US Abdominal/Pelvis (FT) Appointment Date:02/18/2023 08:15:00 AM Scheduled Provider: Location:[facility] Appointment Type:Surgery FT Future Scheduled Tests Radiology* US Abdomen, Limited 12/29/[address] [facility] Evaluation + Plan note Future Appointments Appointment Date:02/18/2023 08:15:00 AM Scheduled Provider: Location:[facility]ments Appointment Date:01/07/2023 11:00:00 AM Scheduled Provider: Location:.[facility] Appointment Type:CT Abdomen (FT) Appointment Date:02/18/2023 08:15:00 AM Scheduled Provider: Location:[facility] Appointment Type:Surgery FT Future Scheduled Tests Radiology* CT Abdomen w/ Contrast [facility]23 [facility] Diagnosis RLS (restless legs syndrome)- Primary Restless legs syndrome (RLS) Moderate COPD (chronic obstructive pulmonary disease) (CMS/HCC) documented in this encounter [facility] HealthcareEvaluation noteNo assessment information availableBethesda North [facility] Work Phone: Evaluation note* Diagnosis Onset Date Resolution Status Abdominal aortic aneurysm (A AA) 3.0 cm to 5.0 cm in diameter in female acute [facility] Work Phone: evaluation note* Diagnosis [...] esophagitis Esophageal reflux documented in this encounter [facility] HealthcareEvaluation note* Diagnosis Tobacco dependency- Primary [...] hypertension Moderate COPD (chronic obstructive pulmonary disease) ([facility]/HCC) Hyperlipidemia, unspecified hyperlipidemia type ([facility]/HCC) Gastroesophageal reflux disease without esophagitis Esophageal reflux H/O: CVA (cerebrovascular accident) Wellness examination History of colon polyps Chronic abdominal pain Abdominal pain, unspecified site Primary hypertension ([facility]/HCC)- Primary Unspecified essential hypertension Hyperlipidemia, unspecified hyperlipidemia type ([facility]/HCC) Carcinoma in situ of ascending colon documented in this encounter [facility] HealthcareEvaluation note* Diagnosis Tobacco dependency- Primary Tobacco use disorder Hyperlipidemia, unspecified hyperlipidemia type ([facility]/HCC) H/O: CVA (cerebrovascular accident) Primary hypertension ([facility]/HCC) Unspecified essential hypertension Moderate COPD (chronic obstructive pulmonary disease) ([facility]/HCC) RLS (restless legs syndrome) Restless legs syndrome (RLS) Peripheral polyneuropathy Screening mammogram for breast cancer Medicare annual wellness visit, subsequent RLS (restless legs syndrome)- Primary Restless legs syndrome (RLS) Peripheral polyneuropathy Moderate COPD (chronic obstructive pulmonary disease) ([facility]/HCC) Hyperlipidemia, unspecified hyperlipidemia type ([facility]/HCC) Primary hypertension ([facility]/HCC) Unspecified essential hypertension Chronic abdominal pain Abdominal pain, unspecified site Moderate COPD (chronic obstructive pulmonary disease) (CMS/HCC)- Primary Primary hypertension ([facility]/HCC) Unspecified essential hypertension Moderate COPD (chronic obstructive [...] left lung- Primary documented in this encounter [facility] HealthcareEvaluation note* Diagnosis Tobacco dependency- Primary [...] ascending colon- Primary documented in this encounter [facility] HealthcareEvaluation note* Diagnosis Primary hypertension (CMS/HCC)- Primary Unspecified essential hypertension Hyperlipidemia, unspecified hyperlipidemia type (CMS/HCC) documented in this encounter [facility] HealthcareEvaluation note* Diagnosis Tobacco dependency- Primary Tobacco use disorder Hyperlipidemia, unspecified hyperlipidemia type (CMS/HCC) H/O: CVA (cerebrovascular accident) Primary hypertension (CMS/HCC) Unspecified essential hypertension Moderate COPD (chronic obstructive pulmonary disease) ([facility]/HCC) RLS (restless legs syndrome) Restless legs syndrome (RLS) Peripheral polyneuropathy Screening mammogram for breast cancer Medicare annual wellness visit, subsequent RLS (restless legs syndrome)- Primary Restless legs syndrome (RLS) Peripheral polyneuropathy Moderate COPD (chronic obstructive pulmonary disease) ([facility]/HCC) Hyperlipidemia, unspecified hyperlipidemia type ([facility]/HCC) Primary hypertension ([facility]/HCC) Unspecified essential hypertension Chronic abdominal pain Abdominal pain, unspecified site Moderate COPD (chronic obstructive pulmonary disease) (CMS/HCC)- Primary Primary hypertension ([facility]/HCC) Unspecified essential hypertension Moderate COPD (chronic obstructive pulmonary disease) ([facility]/HCC)- Primary Mass of left lung Primary hypertension ([facility]) Unspecified essential hypertension Syncope and collapse Mass of left lung- Primary Mass of left lung- Primary Primary hypertension ([facility]/HCC)- Primary Unspecified essential hypertension Moderate COPD (chronic obstructive pulmonary disease) ([facility]/HCC) Hyperlipidemia, unspecified hyperlipidemia type ([facility]) Gastroesophageal reflux disease without esophagitis Esophageal reflux H/O: CVA (cerebrovascular accident) Wellness examination History of colon polyps Chronic abdominal pain Abdominal pain, unspecified site Primary hypertension ([facility]/HCC)- Primary Unspecified essential hypertension Hyperlipidemia, unspecified hyperlipidemia type ([facility]/HCC) Mass of left lung- Primary Moderate COPD (chronic obstructive pulmonary disease) ([facility]/HCC) documented in this encounter [facility]Evaluation [facility]* Diagnosis Moderate COPD (chronic obstructive pulmonary disease) ([facility]/HCC)- Primary documented in this encounter [facility]* Diagnosis Mixed hyperlipidemia ([facility]/HCC)- Primary Mixed hyperlipidemia Hyperlipidemia, unspecified hyperlipidemia type ([facility]/HCC) documented in this encounter [facility]* Diagnosis Tobacco dependency- Primary Tobacco use disorder Hyperlipidemia, unspecified hyperlipidemia type ([facility]/HCC) H/O: CVA (cerebrovascular accident) Primary hypertension ([facility]/HCC) Unspecified essential hypertension Moderate COPD (chronic obstructive pulmonary disease) ([facility]/HCC) RLS (restless legs syndrome) Restless legs syndrome (RLS) Peripheral polyneuropathy Screening mammogram for breast cancer Medicare annual wellness visit, subsequent RLS (restless legs syndrome)- Primary Restless legs syndrome (RLS) Peripheral polyneuropathy Moderate COPD (chronic obstructive pulmonary disease) ([facility]/HCC) Hyperlipidemia, unspecified hyperlipidemia type ([facility]/HCC) Primary hypertension ([facility]/HCC) Unspecified essential hypertension Chronic abdominal pain Abdominal pain, unspecified site Moderate COPD (chronic obstructive pulmonary disease) ([facility]/HCC)- Primary Primary hypertension ([facility] SYSTEMS/HCC) Unspecified essential hypertension Moderate COPD (chronic obstructive pulmonary disease) ([facility]/HCC)- Primary Mass of left lung Primary hypertension ([facility]/HCC) Unspecified essential hypertension Syncope and collapse Mass of left lung- Primary Mass of left lung- Primary Primary hypertension ([facility]/HCC)- Primary Unspecified essential hypertension Moderate COPD (chronic obstructive pulmonary disease) ([facility]) Hyperlipidemia, unspecified hyperlipidemia type ([facility]) Gastroesophageal reflux disease without esophagitis Esophageal reflux H/O: CVA (cerebrovascular accident) Wellness examination History of colon polyps Chronic abdominal pain Abdominal pain, unspecified site Primary hypertension ([facility])- Primary Unspecified essential hypertension Hyperlipidemia, unspecified hyperlipidemia type ([facility]) Mass of left lung- Primary Medicare annual wellness visit, subsequent- Primary Other polyneuropathy Psychophysiological insomnia Persistent disorder of initiating or maintaining sleep documented in [facility]* Diagnosis Tobacco dependency- Primary Tobacco use disorder Hyperlipidemia, unspecified hyperlipidemia type ([facility]) H/O: CVA (cerebrovascular accident) Primary hypertension ([facility]) Unspecified essential hypertension Moderate COPD (chronic obstructive pulmonary disease) ([facility]) RLS (restless legs syndrome) Restless legs syndrome (RLS) Peripheral polyneuropathy Screening mammogram for breast cancer Medicare annual wellness visit, subsequent RLS (restless legs syndrome)- Primary Restless legs syndrome (RLS) Peripheral polyneuropathy Moderate COPD (chronic obstructive pulmonary disease) ([facility]) Hyperlipidemia, unspecified hyperlipidemia type ([facility]/HCC) Primary hypertension ([facility]) Unspecified essential hypertension Chronic abdominal pain Abdominal pain, unspecified site Moderate COPD (chronic obstructive pulmonary disease) ([facility]/HCC)- Primary Primary hypertension ([facility]) Unspecified essential hypertension Moderate COPD (chronic obstructive pulmonary disease) ([facility]/HCC)- Primary Mass of left lung Primary hypertension ([facility]/HCC) Unspecified essential hypertension Syncope and collapse Mass of left lung- Primary Mass of left lung- Primary Primary hypertension ([facility]/HCC)- Primary Unspecified essential hypertension Moderate COPD (chronic obstructive pulmonary disease) ([facility]) Hyperlipidemia, unspecified hyperlipidemia type ([facility]) Gastroesophageal reflux disease without esophagitis Esophageal reflux [...] for breast cancer documented in [facility]* Diagnosis Tobacco dependency- Primary Tobacco use disorder Hyperlipidemia, unspecified hyperlipidemia type ([facility]/HCC) H/O: CVA (cerebrovascular accident) Primary hypertension (CMS/HCC) [...] Primary UTI symptoms documented in this encounter [facility]* Diagnosis Tobacco dependency- Primary [...] Primary Mixed hyperlipidemia documented in this encounter [facility]* Diagnosis Tobacco dependency- Primary [...] Anxiety state, unspecified documented in this encounter [facility]* Diagnosis Onset Date Resolution Status Admit Date Non-small cell lung cancer acute November 14, 2024 11:18am [facility] Work Phone: Evaluation note* Diagnosis Tobacco [...] use disorder documented in this encounter [facility]* Diagnosis Tobacco dependency- Primary Tobacco use disorder Hyperlipidemia, unspecified hyperlipidemia type H/O: CVA (cerebrovascular accident) Primary hypertension Unspecified essential hypertension Moderate COPD (chronic obstructive pulmonary disease) (HCC) RLS (restless legs syndrome) Restless legs syndrome (RLS) Peripheral polyneuropathy Screening mammogram for breast cancer Medicare annual wellness visit, subsequent RLS (restless legs syndrome)- Primary Restless legs syndrome (RLS) Peripheral polyneuropathy Moderate COPD (chronic obstructive pulmonary disease) (HCC) Hyperlipidemia, unspecified hyperlipidemia type Primary hypertension Unspecified essential hypertension Chronic abdominal [...] pulmonary disease) (HCC) Hyperlipidemia, unspecified hyperlipidemia type Gastroesophageal reflux disease without esophagitis Esophageal reflux H/O: CVA (cerebrovascular accident) Wellness examination History of colon polyps Chronic abdominal pain Abdominal pain, unspecified site Primary hypertension- Primary Unspecified essential hypertension Hyperlipidemia, unspecified hyperlipidemia type Mass of left lung- Primary Cerebrovascular accident (CVA), unspecified mechanism (HCC)- Primary Malignant neoplasm of unspecified part of left bronchus or lung (HCC) Adenocarcinoma of left lung (HCC) Mixed hyperlipidemia Mixed hyperlipidemia Tobacco dependency Tobacco use disorder Peripheral polyneuropathy Primary hypertension Unspecified essential hypertension Screening mammogram for breast cancer Epigastric pain- Primary Abdominal pain, epigastric Gastroesophageal reflux disease, unspecified whether esophagitis present Infrarenal abdominal aortic aneurysm (AAA) without rupture Chronic abdominal pain Abdominal pain, unspecified site Dysuria Tobacco dependency Tobacco use disorder Chronic abdominal pain Abdominal pain, unspecified site Epigastric pain Abdominal pain, epigastric documented in [facility]* Diagnosis Tobacco dependency- Primary Tobacco use disorder Hyperlipidemia, unspecified hyperlipidemia type H/O: CVA (cerebrovascular accident) Primary hypertension Unspecified essential hypertension Moderate COPD (chronic obstructive pulmonary disease) (HCC) RLS (restless legs syndrome) Restless legs syndrome (RLS) Peripheral polyneuropathy Screening mammogram for breast cancer Medicare annual wellness visit, subsequent RLS (restless legs syndrome)- Primary Restless legs syndrome (RLS) Peripheral polyneuropathy Moderate COPD (chronic obstructive pulmonary disease) (HCC) Hyperlipidemia, unspecified hyperlipidemia type Primary hypertension Unspecified essential hypertension Chronic abdominal [...] pulmonary disease) (HCC) Hyperlipidemia, unspecified hyperlipidemia type Gastroesophageal reflux disease without esophagitis Esophageal reflux H/O: CVA (cerebrovascular accident) Wellness examination History of colon polyps Chronic abdominal pain Abdominal pain, unspecified site Primary hypertension- Primary Unspecified essential hypertension Hyperlipidemia, unspecified hyperlipidemia type Mass of left lung- Primary Cerebrovascular accident (CVA), unspecified mechanism (HCC)- Primary Malignant neoplasm of unspecified part of left bronchus or lung (HCC) Adenocarcinoma of left lung (HCC) Mixed hyperlipidemia Mixed hyperlipidemia Tobacco dependency Tobacco use disorder Peripheral polyneuropathy Primary hypertension Unspecified essential hypertension Screening mammogram for breast cancer Epigastric pain- Primary Abdominal pain, epigastric Gastroesophageal reflux disease, unspecified whether esophagitis present Infrarenal abdominal aortic aneurysm (AAA) without rupture Chronic abdominal pain Abdominal pain, unspecified site Dysuria Tobacco dependency Tobacco use disorder Alteration of awareness documented in [facility]* Diagnosis Tobacco dependency- Primary Tobacco use disorder Hyperlipidemia, unspecified hyperlipidemia type H/O: CVA (cerebrovascular accident) Primary hypertension Unspecified essential hypertension Moderate COPD (chronic obstructive pulmonary disease) (HCC) RLS (restless legs syndrome) Restless legs syndrome (RLS) Peripheral polyneuropathy Screening mammogram for breast cancer Medicare annual wellness visit, subsequent RLS (restless legs syndrome)- Primary Restless legs syndrome (RLS) Peripheral polyneuropathy Moderate COPD (chronic obstructive pulmonary disease) (HCC) Hyperlipidemia, unspecified hyperlipidemia type Primary hypertension Unspecified essential hypertension Chronic abdominal [...] pulmonary disease) (HCC) Hyperlipidemia, unspecified hyperlipidemia type Gastroesophageal reflux disease without esophagitis Esophageal reflux H/O: CVA (cerebrovascular accident) Wellness examination History of colon polyps Chronic abdominal pain Abdominal pain, unspecified site Primary hypertension- Primary Unspecified essential hypertension Hyperlipidemia, unspecified hyperlipidemia type Mass of left lung- Primary Cerebrovascular accident (CVA), unspecified mechanism (HCC)- Primary Malignant neoplasm of unspecified part of left bronchus or lung (HCC) Adenocarcinoma of left lung (HCC) Mixed hyperlipidemia Mixed hyperlipidemia Tobacco dependency Tobacco use disorder Peripheral polyneuropathy Primary hypertension Unspecified essential hypertension Screening mammogram for breast cancer Epigastric pain- Primary Abdominal pain, epigastric Gastroesophageal reflux disease, unspecified whether esophagitis present Infrarenal abdominal aortic aneurysm (AAA) without rupture Chronic abdominal pain Abdominal pain, unspecified site Dysuria Tobacco dependency Tobacco use disorder Epigastric pain- Primary Abdominal pain, epigastric Chronic abdominal pain Abdominal pain, unspecified site Gastroesophageal reflux disease, unspecified whether esophagitis present History of colon polyps Cerebrovascular accident (CVA), unspecified mechanism (HCC) documented in this encounter [facility]* Diagnosis Tobacco dependency- Primary Tobacco use disorder Hyperlipidemia, unspecified hyperlipidemia type H/O: CVA (cerebrovascular accident) Primary hypertension Unspecified essential hypertension Moderate COPD (chronic obstructive pulmonary disease) (HCC) RLS (restless legs syndrome) Restless legs syndrome (RLS) Peripheral polyneuropathy Screening mammogram for breast cancer Medicare annual wellness visit, subsequent RLS (restless legs syndrome)- Primary Restless legs syndrome (RLS) Peripheral polyneuropathy Moderate COPD (chronic obstructive pulmonary disease) (HCC) Hyperlipidemia, unspecified hyperlipidemia type Primary hypertension Unspecified essential hypertension Chronic abdominal [...] pulmonary disease) (HCC) Hyperlipidemia, unspecified hyperlipidemia type Gastroesophageal reflux disease without esophagitis Esophageal reflux H/O: CVA (cerebrovascular accident) Wellness examination History of colon polyps Chronic abdominal pain Abdominal pain, unspecified site Primary hypertension- Primary Unspecified essential hypertension Hyperlipidemia, unspecified hyperlipidemia type Mass of left lung- Primary Cerebrovascular accident (CVA), unspecified mechanism (HCC)- Primary Malignant neoplasm of unspecified part of left bronchus or lung (HCC) Adenocarcinoma of left lung (HCC) Mixed hyperlipidemia Mixed hyperlipidemia Tobacco dependency Tobacco use disorder Peripheral polyneuropathy Primary hypertension Unspecified essential hypertension Screening mammogram for breast cancer Epigastric pain- Primary Abdominal pain, epigastric Gastroesophageal reflux disease, unspecified whether esophagitis present Infrarenal abdominal aortic aneurysm (AAA) without rupture Chronic abdominal pain Abdominal pain, unspecified site Dysuria Tobacco dependency Tobacco use disorder Chronic abdominal pain- Primary Abdominal pain, unspecified site Cerebrovascular accident (CVA), unspecified mechanism (HCC) Malignant neoplasm of unspecified part of left bronchus or lung (HCC) Tobacco dependency Tobacco use disorder Gastroesophageal reflux disease, unspecified whether esophagitis present Carcinoma in situ of ascending colon Primary hypertension Unspecified essential hypertension Cigarette nicotine dependence with nicotine-induced disorder Adenocarcinoma of left lung (HCC) Infrarenal abdominal aortic aneurysm (AAA) without rupture documented in this encounter [facility]* Diagnosis Tobacco dependency- Primary Tobacco use disorder Hyperlipidemia, unspecified hyperlipidemia type H/O: CVA (cerebrovascular accident) Primary hypertension Unspecified essential hypertension Moderate COPD (chronic obstructive pulmonary disease) (HCC) RLS (restless legs syndrome) Restless legs syndrome (RLS) Peripheral polyneuropathy Screening mammogram for breast cancer Medicare annual wellness visit, subsequent RLS (restless legs syndrome)- Primary Restless legs syndrome (RLS) Peripheral polyneuropathy Moderate COPD (chronic obstructive pulmonary disease) (HCC) Hyperlipidemia, unspecified hyperlipidemia type Primary hypertension Unspecified essential hypertension Chronic abdominal [...] pulmonary disease) (HCC) Hyperlipidemia, unspecified hyperlipidemia type Gastroesophageal reflux disease without esophagitis Esophageal reflux H/O: CVA (cerebrovascular accident) Wellness examination History of colon polyps Chronic abdominal pain Abdominal pain, unspecified site Primary hypertension- Primary Unspecified essential hypertension Hyperlipidemia, unspecified hyperlipidemia type Mass of left lung- Primary Cerebrovascular accident (CVA), unspecified mechanism (HCC)- Primary Malignant neoplasm of unspecified part of left bronchus or lung (HCC) Adenocarcinoma of left lung (HCC) Mixed hyperlipidemia Mixed hyperlipidemia Tobacco dependency Tobacco use disorder Peripheral polyneuropathy Primary hypertension Unspecified essential hypertension Screening mammogram for breast cancer Epigastric pain- Primary Abdominal pain, epigastric Gastroesophageal reflux disease, unspecified whether esophagitis present Infrarenal abdominal aortic aneurysm (AAA) without rupture Chronic abdominal pain Abdominal pain, unspecified site Dysuria Tobacco dependency Tobacco use disorder Chronic abdominal pain- Primary Abdominal pain, unspecified site Cerebrovascular accident (CVA), unspecified mechanism (HCC) Malignant neoplasm of unspecified part of left bronchus or lung (HCC) Tobacco dependency Tobacco use disorder Gastroesophageal reflux disease, unspecified whether esophagitis present Carcinoma in situ of ascending colon Primary hypertension Unspecified essential hypertension Cigarette nicotine dependence with nicotine-induced disorder Adenocarcinoma of left lung (HCC) Infrarenal abdominal aortic aneurysm (AAA) without rupture Seizure (HCC)- Primary Other convulsions Carotid stenosis, bilateral Occlusion and stenosis of carotid artery without mention of cerebral infarction 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 Gait disturbance Abnormality of gait Stroke, lacunar (HCC) Unspecified cerebral artery occlusion with cerebral infarction Cerebral artery occlusion with cerebral infarction (HCC) Unspecified cerebral artery occlusion with cerebral infarction Other transient cerebral ischemic attacks and related syndromes Patent foramen ovale (HHS-HCC) Ostium secundum type atrial septal defect Alteration of awareness documented in this encounter [facility]* Diagnosis Tobacco dependency- Primary Tobacco use disorder Hyperlipidemia, unspecified hyperlipidemia type H/O: CVA (cerebrovascular accident) Primary hypertension Unspecified essential hypertension Moderate COPD (chronic obstructive pulmonary disease) (HCC) RLS (restless legs syndrome) Restless legs syndrome (RLS) Peripheral polyneuropathy Screening mammogram for breast cancer Medicare annual wellness visit, subsequent RLS (restless legs syndrome)- Primary Restless legs syndrome (RLS) Peripheral polyneuropathy Moderate COPD (chronic obstructive pulmonary disease) (HCC) Hyperlipidemia, unspecified hyperlipidemia type Primary hypertension Unspecified essential hypertension Chronic abdominal [...] pulmonary disease) (HCC) Hyperlipidemia, unspecified hyperlipidemia type Gastroesophageal reflux disease without esophagitis Esophageal reflux H/O: CVA (cerebrovascular accident) Wellness examination History of colon polyps Chronic abdominal pain Abdominal pain, unspecified site Primary hypertension- Primary Unspecified essential hypertension Hyperlipidemia, unspecified hyperlipidemia type Mass of left lung- Primary Cerebrovascular accident (CVA), unspecified mechanism (HCC)- Primary Malignant neoplasm of unspecified part of left bronchus or lung (HCC) Adenocarcinoma of left lung (HCC) Mixed hyperlipidemia Mixed hyperlipidemia Tobacco dependency Tobacco use disorder Peripheral polyneuropathy Primary hypertension Unspecified essential hypertension Screening mammogram for breast cancer Epigastric pain- Primary Abdominal pain, epigastric Gastroesophageal reflux disease, unspecified whether esophagitis present Infrarenal abdominal aortic aneurysm (AAA) without rupture Chronic abdominal pain Abdominal pain, unspecified site Dysuria Tobacco dependency Tobacco use disorder Chronic abdominal pain- Primary Abdominal pain, unspecified site Cerebrovascular accident (CVA), unspecified mechanism (HCC) Malignant neoplasm of unspecified part of left bronchus or lung (HCC) Tobacco dependency Tobacco use disorder Gastroesophageal reflux disease, unspecified whether esophagitis present Carcinoma in situ of ascending colon Primary hypertension Unspecified essential hypertension Cigarette nicotine dependence with nicotine-induced disorder Adenocarcinoma of left lung (HCC) Infrarenal abdominal aortic aneurysm (AAA) without rupture Seizure (HCC)- Primary Other convulsions Carotid stenosis, bilateral Occlusion and stenosis of carotid artery without mention of cerebral infarction 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 Gait disturbance Abnormality of gait Stroke, lacunar (HCC) Unspecified cerebral artery occlusion with cerebral infarction Cerebral artery occlusion with cerebral infarction (HCC) Unspecified cerebral artery occlusion with cerebral infarction Other transient cerebral ischemic attacks and related syndromes Patent foramen ovale (HHS-HCC) Ostium secundum type atrial septal defect Alteration of awareness Inflamed seborrheic keratosis documented in this encounter [facility]* Diagnosis Tobacco dependency- Primary Tobacco use disorder Hyperlipidemia, unspecified hyperlipidemia type H/O: CVA (cerebrovascular accident) Primary hypertension Unspecified essential hypertension Moderate COPD (chronic obstructive pulmonary disease) (HCC) RLS (restless legs syndrome) Restless legs syndrome (RLS) Peripheral polyneuropathy Screening mammogram for breast cancer Medicare annual wellness visit, subsequent RLS (restless legs syndrome)- Primary Restless legs syndrome (RLS) Peripheral polyneuropathy Moderate COPD (chronic obstructive pulmonary disease) (HCC) Hyperlipidemia, unspecified hyperlipidemia type Primary hypertension Unspecified essential hypertension Chronic abdominal pain Abdominal pain, unspecified site 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 Primary hypertension Unspecified essential hypertension 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 Mass of left lung Primary hypertension Unspecified essential hypertension Syncope and collapse Primary hypertension- Primary Unspecified essential hypertension Moderate COPD (chronic obstructive pulmonary disease) (HCC) Hyperlipidemia, unspecified hyperlipidemia type Gastroesophageal reflux disease without esophagitis Esophageal reflux H/O: CVA (cerebrovascular accident) Wellness examination History of colon polyps Chronic abdominal pain Abdominal pain, unspecified site Primary hypertension- Primary Unspecified essential hypertension Hyperlipidemia, unspecified hyperlipidemia type Cerebrovascular accident (CVA), unspecified mechanism (HCC)- Primary Malignant neoplasm of unspecified part of left bronchus or lung (HCC) Adenocarcinoma of left lung (HCC) Mixed hyperlipidemia Mixed hyperlipidemia Tobacco dependency Tobacco use disorder Peripheral polyneuropathy Primary hypertension Unspecified essential hypertension Screening mammogram for breast cancer Epigastric pain- Primary Abdominal pain, epigastric Gastroesophageal reflux disease, unspecified whether esophagitis present Infrarenal abdominal aortic aneurysm (AAA) without rupture Chronic abdominal pain Abdominal pain, unspecified site Dysuria Tobacco dependency Tobacco use disorder Chronic abdominal pain- Primary Abdominal pain, unspecified site Cerebrovascular accident (CVA), unspecified mechanism (HCC) Malignant neoplasm of unspecified part of left bronchus or lung (HCC) Tobacco dependency Tobacco use disorder Gastroesophageal reflux disease, unspecified whether esophagitis present Carcinoma in situ of ascending colon Primary hypertension Unspecified essential hypertension Cigarette nicotine dependence with nicotine-induced disorder Adenocarcinoma of left lung (HCC) Infrarenal abdominal aortic aneurysm (AAA) without rupture Seizure (HCC)- Primary Other convulsions Carotid stenosis, bilateral Occlusion and stenosis of carotid artery without mention of cerebral infarction 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 Gait disturbance Abnormality of gait Stroke, lacunar (HCC) Unspecified cerebral artery occlusion with cerebral infarction Cerebral artery occlusion with cerebral infarction (HCC) Unspecified cerebral artery occlusion with cerebral infarction Other transient cerebral ischemic attacks and related syndromes Patent foramen ovale (HHS-HCC) Ostium secundum type atrial septal defect Alteration of awareness Chronic abdominal pain- Primary Abdominal pain, unspecified site Seizure (HCC) Other convulsions Cerebrovascular accident (CVA), unspecified mechanism (HCC) Mass of left lung Adenocarcinoma of left lung (HCC) Infrarenal abdominal aortic aneurysm (AAA) without rupture Syncope and collapse documented in this encounter [facility] Author Mikhail [facility] March 25, 2024 10:35am Note Date/Time March 25, 2024 10:35am [facility] [address] [place] [address] Gastroenterology H&P Signed Patient: Bhupendra Rubi MR#: [id number] : 1950 Acct:[id number] Age/Sex: 73 / F Adm Date: 4 Loc: Room: Type: [facility] Attending Dr: Mikhail Moon MD Copies [...] signed by Mikhail Moon MD> 03/25/24 1035 [facility] Work Phone: History general Narrative - Reported* Type Description Date Medical History GERD Medical History hypercholesterolemia Surgical History cholecystectomy Surgical History tubal ligation Surgical History shoulder surgery Hospitalization History see above [facility] Other History general Narrative - Reported* Type Description Date Medical History GERD Medical History hypercholesterolemia Medical History Carotid stenosis Surgical History cholecystectomy Surgical History tubal ligation Surgical History shoulder surgery Hospitalization History see above [facility] Other Hospital Discharge instructions No data available for this section [facility] Additional Instructions Stop your blood pressure medicine. Follow-up with your doctor without fail for reevaluation of blood pressure and left lung mass.[facility] Work Phone: Hospital Discharge instructionsAmbulatory Orders* Referral to General Surgery Location: None Selected [facility] Work Phone: Hospital Discharge instructions Additional Instructions Please wear home oxygen at 2l with any activity or exertion.[facility] Work Phone: InstructionsNot on filedocumented in this encounter [facility] filedocumented in this encounter [facility]ructionsNot on filedocumented in this encounter [facility] note No data available for this section [facility] reason for referral (narrative)No reason for referral [facility] Work Phone: Summary Purpose Family History No Family History [...] 102024 10:40am Follow Up, Rescheduled Multiple Times Ma y 2024 11:18am Lung Cancer November 14, 2024 11:19a m Reason for Visit Admit Date Non-small cell lung cancer November 14, 2024 11:18am Chief Complaint Admit Date Virtual 1 Month Follow Up, Lung October 102024 10:40am Follow Up, Rescheduled Multiple Times Ma y 2024 11:18am Lung Cancer November 14, 2024 11:19a m Unknown December 22, 2024 10:4 1am 1 YR FOLLOW UP; ABDOMINAL 10A January 04, 2025 9:40am I71.40 January 04, 2025 9:41 am Reason for Visit Admit Date Non-small cell lung cancer November 14, 2024 11:18am Abdominal aortic aneurysm (A AA) 3.0 cm to 5.0 cm in diameter in female January 04, 2025 9:40am Chief Complaint Admit Date Follow Up, Rescheduled Multiple Times Ma y 2024 11:18am Unknown December 22, 2024 10:4 1am 1 YR FOLLOW UP; ABDOMINAL 10A January 04, 2025 9:40am I71.40 January 04, 2025 9:41 am Amb Documentation January 05, 2025 2:01 pm Lung Cancer January 16, 2025 12:07 pm abd pain February 11, 2025 2:5 1pm Reason for Visit Admit Date Non-small cell lung cancer November 14, 2024 11:18am Abdominal aortic aneurysm (A AA) 3.0 cm to 5.0 cm in diameter in female January 04, 2025 9:40am Abdominal pain February 11, 2025 2:5 1pm Altered mental status February 11, 2025 2 :51pm Hypoxia February 11, 2025 2:5 1pm Mass of upper lobe of left lung February 112024 2:51pm Seizure February 11, 2025 2:5 1pm Chief Complaint Admit Date Unknown December 22, 2024 10:4 1am 1 YR FOLLOW UP; ABDOMINAL 10A January 04, 2025 9:40am I71.40 January 04, 2025 9:41 am Amb Documentation January 05, 2025 2:01 pm Lung Cancer January 16, 2025 12:07 pm abd pain February 11, 2025 2:5 1pm Reason for Visit Admit Date Abdominal aortic aneurysm (A AA) 3.0 cm to 5.0 cm in diameter in female January 04, 2025 9:40am Abdominal pain February 11, 2025 2:5 1pm Altered mental status February 11, 2025 2 :51pm Breakthrough seizure February 11, 2025 2: 51pm Current smoker February 11, 2025 2:5 1pm Hypoxia February 11, 2025 2:5 1pm Mass of upper lobe of left lung February 112024 2:51pm Non-small cell lung cancer February 11, 025 2:51pm Seizure February 11, 2025 2:5 1pm Seizure-like activity February 11, 2025 2 :51pm Additional Source Comments INFORMATION SOURCE (unrecogn ized section and content) DATE CREATED AUTHOR 11/24/2022 [facility] DATE CREATED AUTHOR AUTHOR'S ORGANIZ ATION 12/17/2024 [facility] DATE CREATED AUTHOR AUTHOR'S ORGANIZ ATION 02/18/2025 [facility] DATE CREATED AUTHOR AUTHOR'S ORGANIZ ATION 02/23/2025 [facility] DATE CREATED AUTHOR AUTHOR'S ORGANIZ ATION 02/24/2025 [facility] DATE CREATED AUTHOR AUTHOR'S ORGANIZ ATION 02/25/2025 [facility] Patient Care team informatio n (unrecognized section and content) Team Status: Active Member Role Status Dates Wendy Burden Primary Care Provider Active Team Status: Inactive Member Role Status Dates Wendy Burden Attending Provider Active Start: December 22, 2024 End: December 22, 2024 Team Status: Inactive Member Role Status Dates Nigel Valladares MD Attending Provider Active Start: January 04, 2025 End: January 04, 2025 NON STAFF Primary Care Provider Active Start: January 04, 2025 End: January 04, 2025 Team Status: Inactive Member Role Status Dates Adam Keller MD Attending Provider Active S tart: January 04, 2025 End: January 04, 2025 NON STAFF Primary Care Provider Active Start: January 04, 2025 End: January 04, 2025 Team Status: Active Member Role Status Dates NON STAFF Primary Care Provider Active Start: January 05, 2025 Yaneth Naranjo Attending Provider Active Start: January 05, 2025 Team Status: Active Member Role Status Dates Mikhail Moon MD Referring Provider Active Start: January 16, 2025 Chris Singh NP-C Primary Care Provider Ac tive Start: January 16, 2025 Judit Martini MD Attending Provider Active Start: January 16, 2025 Team Status: Active Member Role Status Dates Isabella Brown MD Emergency Provider Active Start: February 11, 2025 NON STAFF Primary Care Provider Active Start: February 11, 2025 Matteo Zaragoza MD Admit Provider Active Start: February 11, 2025 Matteo Zaragoza MD Other Provider Active Start: February 11, 2025 Kenn Ignacio DO Attending Provider Active Start: February 11, 2025 Kenn Ignacio DO Other Provider Active Start: February 11, 2025 Personnel Name: CHINTANMATHEW ELLSWORTHWENDY Address: [address] [place] [id number] Telecom: Team Status: Active Member Role Status Dates [...] Team Status: Inactive Member Role Status Dates Sulema Cordero PA-C Attending Provider Active Start: October 04, 2024 End: October 04, 2024 Team Status: Inactive Member Role Status Dates Hipolito Shah APRN Attending Provider Acti ve Start: October 10, 2024 End: October 10, 2024 NON STAFF Primary Care Provider Active Start: October 10, 2024 End: October 10, 2024 Team Status: Inactive Member Role Status Dates NON STAFF Primary Care Provider Active Start: November 14, 2024 End: November 14, 2024 Hipolito Shah APRN Attending Provider Acti ve Start: November 14, 2024 End: November 14, 2024 Team Status: Active Member Role Status Dates Mikhail Moon MD Referring Provider Active Start: November 14, 2024 SANDRA HintonC Primary Care Provider Ac tive Start: November [...] Referring Provider Active Start: August 04, 2024 SANDRA HintonC Primary Care Provider Ac tive Start: August 04, 2024 Judit Martini MD Attending Provider Active Start: August 04, 2024 Team Status: Active Member Role Status Dates Nitza Russell MD Other Provider Active Start: julian 2024 Mikhail Moon MD Referring Provider Active Start: August 06, 2024 Chris N Singh , [employer]-C Primary Care Provider Ac tive Start: August 06, 2024 Natividad Correa MD Attending Provider Active Start: August 06, 2024 Team Status: Active Member Role Status Dates Nitza Russell MD Other Provider Active Start: Ramontimmy jordan 2024 Mikhail Moon MD Referring Provider Active Start: August 12, 2024 Chris Singh [employer]-C Primary Care Provider Ac tive Start: August 12, 2024 Judit Martini MD Attending Provider Active Start: August 12, 2024 Team Status: Active Member Role Status Dates Nitza Russell MD Other Provider Active Start: 2024 Mikhail Moon MD Referring Provider Active Start: August 29, 2024 Chris Singh [employer]-C Primary Care Provider Ac tive Start: August 29, 2024 Judit Martini MD Attending Provider Active Start: August 29, 2024 Team Status: Active Member Role Status Dates Nitza Russell MD Other Provider Active Start: 2024 Mikhail Moon MD Referring Provider Active Start: September 05, 2024 Chris Singh [employer]-C Primary Care Provider Ac tive Start: September [...] Team Status: Inactive Member Role Status Dates Sulema Cordero PA-C Attending Provider Active Start: October 04, 2024 End: October 04, 2024 Team Status: Inactive Member Role Status Dates Hipolito Shah APRN Attending Provider Acti ve Start: October 10, 2024 End: October 10, 2024 NON STAFF Primary Care Provider Active Start: October 10, 2024 End: October 10, 2024 Team Status: Active Member Role Status Dates Mikhail Moon MD Referring Provider Active Start: October 10, 2024 Chris Singh SU[employer]-C Primary Care Provider Ac tive Start: October 10, 2024 Judit Martini MD Attending Provider Active Start: October 10, 2024 Team Status: Active Member Role Status Dates Chris Singh [employer]PER[employer]-C Primary Care Provider Ac tive Team Status: [...] 2024 End: July 28, 2024 Chris Singh , [employer]-C Primary Care Provider Ac tive Start: July [...] Referring Provider Active Start: July 28, 2024 Tornado Chaser Relationship Specialty Start Date End Date Chris Singh, [employer] [address] [place] [address] PCP - General Nurse Practitioner 06/13/24 Tornado Chaser Relationship Specialty Start Date End Date Charanjit Chen MD [address] [place] [place] [phone] PCP - General Family Medicine 02/11/24 Chris Singh NP [address] [place] [id number] Nurse Practitioner Family Medicine 02/11/24 Anne Hartley [...] SHAIKH HORAN MD Address: Address: [address] [place] [address] Team Status: Active Member Role Status Angelica Horan MD Primary Care Provider Active Team Status: Inactive Member Role Status Angelica Horan MD Primary Care Provider Active Start: December 27, 2023 End: December 27, 2023 Emmett Bhakta MD Emergency Provider Active St art: December 27, 2023 End: December 27, 2023 Tornado Chaser Relationship Specialty Start Date End Date Shaikh Horan MD PCP - General Internal Medicine 01/26/23 Shaikh Horan MD [address] [place] [phone] PCP - Devoted 04/12/23 Personnel Name: SHAIKH HORAN Address: Address: [address] [place] [address] REASON FOR VISIT (unrecogniz ed section and content) Reason Onset Date Comments Med Refill 05/02/2024 Reason Comments Consult Colon polyp ref'd by Red Specialty Diagnoses / Procedures Referred By Contac t Referred To Contact General Surgery Diagnoses Benign neoplasm of colon, unspecified Procedures AL OFFICE/OUTPATIENT NEW HIGH MDM 60 MINUTES Mikhail Moon MD [address] [address] Phone: tel: fax: [facility] [address] [facility] [address] [place] [address] Phone: tel: fax: Referral ID Status Reason Start Date Expiration Date V isits Requested Visits Authorized [id number] Closed Specialty Services Required 04/11/2024 10/08/2024 1 1 Reason Comments Follow-up Reason Comments Follow-up 1mo F/U Reason Onset Date Comments Hospital Follow-up 06/21/2024 Reason Onset Date Comments lacosamide (VIMPAT) 07/18/2024 Reason Comments Medicare Annual Wellness Visit Jacquelyn michael Reason Comments Seizures Specialty Diagnoses / Procedures Referred By Contac t Referred To Contact Neurology Diagnoses Other seizures (CMS/HCC) Procedures AL OFFICE/OUTPATIENT NEW LOW MDM 30 MINUTES Eryn Lundberg MD [address] [place] [address] Phone: tel: fax: Romel Sampson MD [address] [place] [address] Phone: tel: fax: Referral ID Status Reason Start Date Expiration Date V isits Requested Visits Authorized [id number] Closed Consult and Treat 07/22/2024 01/18/2025 1 1 Reason Comments ER Follow-up Reason Onset Date Comments referral 12/19/2024 Reason Comments Cerebrovascular Accident Reason Comments Hospital Follow-up Goals (unrecognized section and content) Goals [...] BE BASED ON THE PRIMARY CLINICAL RECORDS. [employer] provides no warranty or guarantee of the accuracy or completeness of information in this document.
== END 2025-02-28 13:29 | disposition home or self-care (01) ==
LOC: US 13:28
PROVIDERS: PCP Nurse Practitioner; Visit Provider Psychiatry & Neurology Neurology
DX: I65.23 Occlusion and stenosis of bilateral carotid arteries (principal); I63.81 Other cerebral infarction due to occlusion or stenosis of small artery; I63.50 Cerebral infarction due to unspecified occlusion or stenosis of unspecified cerebral artery
CPT/HCPCS: 93880

== ENCOUNTER 2025-03-20 10:39 | Outpatient (OUT) | payer MEDICARE, SELFPAY ==
--- OUTSIDE RECORDS SUMMARY | 2024-10-04 09:30 | XMS_ITS ---
Author Organization [facility] in [place] Address [address] [place] [address] Care Team Providers Care Processing Talc And Borate Supervisor Name Role Phone Wendy Burden CNP Primary Care Provider Unavail Eryn Johnson Unavailable [phone] REASON FOR VISIT MD Encounters Encounter Location Date Provider Diagnosis [facility] [address] [place] [phone] 10/04/2024 Eryn Lundberg Plan Of Treatment Next Appt Details Provider Name:Eryn Lundberg , 06/27/2025 11:00:00 AM, [address] [place] [address], [phone], Progress Notes * Mirta MITCHELL MDOB:[birth year] (74 yo F)Acc No.[id number]:10/04/2024 UNLOCKED PROGRESS NOTE Progress Notes Patient: Akila ERNESTOANDREIA Mirta Wilburn Provider: Annette Lundberg M.D. :1950 A ge:74 Y S ex:Female Date:10/04/2024 Address:[address] [place] [id number] Pcp:Wendy Burden CNP Subjective: * Chief Complaints: * 1 . MD. * Medical History: Objective: * Vitals: Assessment: Plan: * Treatment: * * Electronic signature of Ria Lundberg MD, [id number] on 03/20/2025 at 10:45 AM EDT Sign off status: Pending Visit Status: A [facility] (Voice) * Provider: Annette Lundberg M.D. Date: 0 10/04/2024 Generated for [place] [place]/Caspersmitting on: 0 03/20/2025 10:45 AM EDT
--- OUTSIDE RECORDS SUMMARY | 2024-11-30 07:00 | XMS_ITS ---
Author Organization The [facility] in [place] Address [address] [place] [address] Care Team Providers Care River Transportation Worker Name Role Phone Wendy Burden CNP Primary Care Provider Unavail able Roberto Grossman Unavailable [phone] Allergies No Known Allergies REASON FOR VISIT 6 mos f/u COPD Medications Medication SIG (Take, Route, Frequency, Duration) Notes Start Date End Date Status Aspirin 81 81 MG 1 tablet Orally Once a day Active Atorvastatin [place] 80 MG 1 tablet Oral ly Once a day Active Albuterol Sulfate HFA 108 (90 Base) MCG/ACT 2 puffs as needed for SOB Inhalation every 4 hrs for 90 days Active traZODone HCl 100 MG 1 tablet at bedtime Orally Once a day Active Gabapentin 300 MG 1 capsule Orally Onc e a day Active Lacosamide 100 MG Oral for 30 Days Active lamoTRIgine 150 MG Oral for 30 Days Active LORazepam 0.5 MG TAKE 1 TABLET BY ABDIAZIZ TH DAILY NEEDED FOR ANXIETY Oral for 15 Days Active Pantoprazole Sodium 40 MG Oral for 90 Days Active Eliquis 5 MG TAKE 1 TABLET BY ABDIAZIZ TH IN THE MORNING then TAKE 1 TABLET BY MOUTH BEFORE bedtime Oral for 30 Days Active Breztri Aerosphere 160-9-4.8 MCG/ACT 2 puffs Inhalation Twice a day for 90 days Rinse after use Active Social History Tobacco Use: Social History Observation Description Date Details (start date - stop date) Current Smoker NA - NA Tobacco Control (Standard) Question Answer Notes Tobacco use: Current every day smoker Additional Findings: Tobacco user Light cigarett e smoker (1-9 cigs/day) Problems Problem Type SNOMED Code ICD Code Onset Dates Problem Status W/U Status Risk Notes Problem Mental 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 (963200398) Cigarette nicotine dependence with nicotine-induce d disorder (F17.219) Active confirmed Vital Signs Temperature 96.4 degrees Fahrenheit 12/01/19 25 Blood pressure systolic 148 mm Hg 12/01/19 25 Blood pressure diastolic 87 mm Hg 025 Heart Rate 114 /min 11/30/2024 Respiratory Rate 18 /min 11/30/2024 Height 63 in 11/30/2024 Weight 149.2 lbs 11/30/2024 BMI 26.43 kg/m2 11/30/2024 Oximetry 91 % 11/30/2024 Encounters Encounter Location Date Provider Diagnosis Pulmonary Medicine [facility] [place] [address] [place] [address] 11/30/2024 Roberto Grossman Centrilobular emphys rodney J43.2 ; Adenocarcinoma of left lung C34.92 ; Cigarette nicotine dependence with nicotine-induced disorder F17.219 ; History of stroke Z86.73 and director long term care (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 steroids Z79.51 Assessments Encounter Date Diagnosis (ICD Code) Assessment Notes Treatment Notes Treatment Clinical Notes Section Notes 11/30/2024 Centrilobular emphysema (ICD-10 - J43.2) Prior treatments: Breztri > Trelegy She is doing okay on Breztri, no exacerbations. Continue current treatment. 11/30/2024 Adenocarcinoma of left lung (ICD-10 - C34.92) HÉCTOR adenocarcinoma. Follows with Dr. Lundberg and Dr. Martini, had radiation only. 11/30/2024 Cigarette nicotine dependence with nicotine-induced disorder (ICD-10 - F17.219) She restarted smoking. Discussed smoking cessation - she states no way. Explained the multiple issues associated with smoking, including the COPD, lung cancer, and stroke she has already had. 11/30/2024 History of stroke (ICD-10 - Z86.73) Had symptoms in September, no acute findings. She is frustrated, very anxious. Unfortunately, I explained I am not a neurologist and these issues are better directed to neurology. 11/30/2024 director long term care (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 steroids (ICD-10 - Z79.51) .Patient was counseled to rinse & gargle with water after inhaled corticosteroid use. 11/30/2024 Other Plan Of Treatment Medication Medication Name Sig Start Date Stop Date Notes Albuterol Sulfate HFA 108 (9 0 Base) MCG/ACT 2 puffs as needed for SOB Inhalation every 4 hrs for 90 days Breztri Aerosphere 160-9-4.8 MCG/ACT 2 puffs Inhalation Twice a day for 90 days Treatment Notes Assessment Notes Centrilobular emphysema Prior treatments: Breztri > Trelegy She is doing okay on Breztri, no exacerbations. Continue current treatment. Adenocarcinoma of left lung HÉCTOR adenocarcinoma. Follows with Dr. Lundberg and Dr. Martini, had radiation only. Cigarette nicotine dependenc e with nicotine-induced disorder She restarted smoking. Discussed smoking cessation - she states no way. Explained the multiple issues associated with smoking, including the COPD, lung cancer, and stroke she has already had. History of stroke Had symptoms in September, no acute findings. She is frustrated, very anxious. Unfortunately, I explained I am not a neurologist and these issues are better directed to neurology. director long term care (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 stero ids .Patient was counseled to rinse & gargle with water after inhaled corticosteroid use. Next Appt Details Follow Up: 1 Year, Reason: C OPD Provider Name:Eryn Lundberg , 06/27/2025 11:00:00 AM, [address] [place], [address], Procedure Notes * Category Sub-Category Detail Notes PFT Data: 10/27/2022-FEV1/F VC: 63%-FEV1: 56% (1.17L)-FVC: 67%-TAU24-86%: 22%-Bronchodilator response: None-RV: 95%-T%-DLCO 38%-Flow-volume loop: Moderate obstruction Alpha-1 Antitrypsin Screening Date: 07/30/2022 Genotype: M/M Progress Notes * Mirta MITCHELL MDOB:[birth year] (74 yo F)Acc No.[id number]:11/30/2024 Follow Up Patient: Mirta DICKERSON Provider: Jonathan Grossman DO :1950 A ge:74 Y S ex:Female Date:11/30/2024 Address:[address] [place] [id number] Pcp:Wendy Burden, JODEE Check In:10:41 AM KORINACheck O ut:11:27 AM EST Subjective: * Chief Complaints: * 6 mos f/u COPD * HPI: G eneral: Patient states her breathing has been doing well since last visit. She remains on Breztri and voices good response to treatment. Denies any adverse effects. She continues to follow with Dr. Lundberg for lung cancer. She also sees Dr. Martini for radiation therapy. At a past visit with Dr. Lundberg, the patient was complaining of stroke-like symptoms. She was sent to [facility] ER ~10/04/2024. w/up was done but did not identify any specific cause for the symptoms. She already has some dysphonia and right arm weakness from a prior left MCA stroke. She has a seziure disorder and follows with neurology. She is quite emotional today and voiced discontent that no one could find why she had those symptoms in September and was discharged before an answer was identified. I explained that despite all our advances in technology, many times we simply cannot explain what is going on. Additionally, the purpose of hospitalization is to identify any life-threatening causes - once those are R/O, then patients are discharged with further testing and treatment to be done outpatient. Despite the above, she continues to smoke at 5 cigarettes/day. MA Intake Comments:. Patient presents for a follow-up with her significant other. Patient is very emotional today. Patient reports being recently hospitalized due to stroke like symptoms. Patient believes she had a stroke. Patient complains of arm weakness & speech impairment. Patient reports doing 10 weeks of radiation and is under the care of & . Patient states her breathing is unchanged. Patient is very anxious today. Patient is using Breztri daily. Patient admits to smoking <5 cigarettes per day. * ROS: G eneral/Constitutional: Fever or sweats d enies. C hange of appetite d enies. C hills d enies. W eight Change d enies. H EENT: Dry mouth d enies. S ore throat d enies. O ral Ulcers d enies. P ost Nasal Drip D enies. C ongestion D enies. H oarseness?Denies. C ardiovascular: Tachycardia d enies. C hest pain d enies. P alpitations d enies. R espiratory: Pleurisy D enies. D yspnea w ith activity. C ough d enies. H emoptysis d enies. W heezing d enies. G astrointestinal: Acid Reflux/GERD/Heartburn d enies. D ysphagia d enies. M usculoskeletal: Arthralgias/joint pain D enies. S kin: Easy bruising d enies. R juliane d enies. ? N eurologic: Seizures b eing treated for seizures. T remor d enies. H ematology: Abnormal Bleeding d enies. P sychiatric: Memory loss or Confusion a dmits. A nxiety d enies. * Active Problem List F17.219 Cigarette nicotine d ependence with nicotine-induced disorder Modified On:11/30/2024W/U Status:confirmed Z86.73 History of stroke Modified On:11/05/2022/U Status:confirmed C34.92 Adenocarcinoma of le ft lung Modified On:06/01/2024/U Status:confirmed I71.43 Infrarenal abdominal aortic aneurysm, without rupture Modified On:03/02/2024/U Status:confirmed J43.2 Centrilobular emphys rodney Modified On:11/05/2022/U Status:confirmed Z79.51 director long term care (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 steroids Modified On:03/02/2024/U Status:confirmed * Medical History: * Surgical History: h ysterectomy Cholecystectomy rotator cuff tear repair-bilateral tubal ligation Bronchoscopy 03/09/2024[facility] 05/18/2024 * Hospitalization/Major Diagno stic Procedure: C [facility] 10/04/2024 * Family History: M other: Lung cancer, diagnosed with Other malignant neoplasm of unspecified site. S ister(s): blood clot. S on(s): stroke. M aternal aunt: diagnosed with Other malignant neoplasm of unspecified site. 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 D rugs/Alcohol: D rugs H ave you used drugs other than those for medical reasons in the past 12 months? N o D oes the Patient have a History of Drug Abuse in the Past? N o Caffeine I ntake: 1 -2 cups per day Coffee & Green Tea Do you drink alcohol?: Yes, Socially. Do you smoke marijuana?: Denies. * Medications: T akingAlbuterol Sulfate HFA 108 (90 Base) MCG/ACT Aerosol Solution 2 puffs as needed for SOB Inhalation every 4 hrs Aspirin 81(Aspirin) 81 MG Tablet Delayed Release 1 tablet Orally Once a day Atorvastatin Calcium 80 MG Tablet 1 tablet Orally Once a day Breztri Aerosphere([place]axou[place]-Rijaqopqmdx-Qygyjdjflx) 160-9-4.8 MCG/ACT Aerosol 2 puffs Inhalation Twice a day Rinse after useEliquis(Apixaban) 5 MG Tablet TAKE 1 TABLET BY MOUTH IN THE MORNING then TAKE 1 TABLET BY MOUTH BEFORE bedtime Oral Gabapentin 300 MG Capsule 1 capsule Orally Once a day Lacosamide 100 MG Tablet Oral lamoTRIgine 150 MG Tablet Oral LORazepam 0.5 MG Tablet TAKE 1 TABLET BY MOUTH DAILY NEEDED FOR ANXIETY Oral Pantoprazole Sodium 40 MG Tablet Delayed Release Oral traZODone HCl 100 MG Tablet 1 tablet at bedtime Orally Once a day Taking Albuterol Sulfate HFA 108 (90 Base) MCG/ACT Aerosol Solution 2 puffs as needed for SOB Inhalation every 4 hrs Taking Aspirin 81(Aspirin) 81 MG Tablet Delayed Release 1 tablet Orally Once a day Taking Atorvastatin Calcium 80 MG Tablet 1 tablet Orally Once a day Taking Breztri Aerosphere(Xpsjrxn-Jlipmklffxg-Oslpufbict) 160-9-4.8 MCG/ACT Aerosol 2 puffs Inhalation Twice a day Rinse after useTaking Eliquis(Apixaban) 5 MG Tablet TAKE 1 TABLET BY MOUTH IN THE MORNING then TAKE 1 TABLET BY MOUTH BEFORE bedtime Oral Taking Gabapentin 300 MG Capsule 1 capsule Orally Once a day Taking Lacosamide 100 MG Tablet Oral Taking lamoTRIgine 150 MG Tablet Oral Taking LORazepam 0.5 MG Tablet TAKE 1 TABLET BY MOUTH DAILY NEEDED FOR ANXIETY Oral Taking Pantoprazole Sodium 40 MG Tablet Delayed Release Oral Taking traZODone HCl 100 MG Tablet 1 tablet at bedtime Orally Once a day DiscontinuedVarenicline Tartrate(Continue) 1 MG Tablet 1 tablet Orally BID Dispense 1 Continuing PackMedication List reviewed and reconciled with the patientDiscontinued Varenicline Tartrate(Continue) 1 MG Tablet 1 tablet Orally BID Dispense 1 Continuing PackMedication List reviewed and reconciled with the patient * Allergies: N .K.D.A.no[Allergies Verified] Objective: * Vitals: W t:149.2lbs, Ht: 63 in, BP:sittin/87mm Hg, Temp:Forehead:96.4F, HR:114/min, RR:18/min, BMI:26.43Index, Oxygen sat %:Room Air:91%, Ht-cm: 160.02 cm, Wt-k.68 kg. * Examination: E xam: GENERAL APPEARANCE: A ppears stated age. Skin N o cyanosis. Mouth P ink and moist. U pper and lower dentures. Oropharynx/Tongue M allampati Class III. No candidiasis.? Trachea M idline. Chest N ormal. Respiratory Normal M ovements, E ffort N ormal. Auscultation D iminished but clear breath sounds. Cardiac R egular rate and rhythm. Gastrointestinal N ormal. Vascular N o edema. Musculoskeletal N ormal posture. Neurological M ild dysarthria; chronic right upper extremity weakness. Psychiatric A lert and oriented x3. Mentation/Cognition V esther anxious, emotional. ? Assessment: * Assessment: 1. C entrilobular emphysema - J43.2 (Primary) 2 . A denocarcinoma of left lung - C34.92 3 . C igarette nicotine dependence with nicotine-induced disorder - F17.219 4 . H istory of stroke - Z86.73 5 . L alden term (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 steroids - Z79.51 Plan: * Treatment: 2. A denocarcinoma of left lung Notes: HÉCTOR adenocarcinoma. Follows with Dr. Lundberg and Dr. Martini, had radiation only. 3. C igarette nicotine dependence with nicotine-induced disorder Notes: She restarted smoking. Discussed smoking cessation - she states no way. Explained the multiple issues associated with smoking, including the COPD, lung cancer, and stroke she has already had. ? 4. H istory of stroke Notes: Had symptoms in September, no acute findings. She is frustrated, very anxious. Unfortunately, I explained I am not a neurologist and these issues are better directed to neurology. 5. L alden term (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 steroids Notes: .Patient was counseled to rinse & gargle with water after inhaled corticosteroid use. ? * Procedures: A lpha-1 Antitrypsin: Screening Date: . Genotype: M /M. P FT: Data: 10/27/2022 -FEV1/FVC: 63% -FEV1: 56% (1.17L) -FVC: 67% -QJV63-30%: 22% -Bronchodilator response: None -RV: 95% -T% -DLCO 38% -Flow-volume loop: Moderate obstruction. * Procedure Codes: * Preventive Medicine: Immunization Status: P neumovacc 1 09/09/2021. I nfluenza 1 . Screenings/Counseling: F ALL RISK SCREENING Fall Risk Assessment: N o falls in the past year Are you afraid of falling? N o T OBACCO ACTION PLAN Patient counselled on the dangers of tobacco use and urged to quit. 0 11/30/2024 Cessation counseling provided 0 11/30/2024 F MARCUS EXCLUSION Reason: P atient Reason refused/declined Type of Patient Reason: D rug declined by patient B MO ACTION PLAN Above Normal BMI Follow-up D ietary management education, guidance, and counseling * Follow Up: 1 Year (Reason: COPD) * * Sign off status: Completed Visit Status: C HK (Check Out) true * Provider: Jonathan Grossman, DO Date: 0 11/30/2024 Generated for Rosette parks/Warren/Vivianitting on: 0 03/20/2025 10:46 AM EDT History and Physical Notes * HPI (History of Present Illness) Category Sub-Category Detail Notes Category Not es General Patient present s for a follow-up with her significant other. Patient is very emotional today. Patient reports being recently hospitalized due to stroke like symptoms. Patient believes she had a stroke. Patient complains of arm weakness & speech impairment. Patient reports doing 10 weeks of radiation and is under the care of & . Patient states her breathing is unchanged. Patient is very anxious today. Patient is using Breztri daily. Patient admits to smoking <5 cigarettes per day. Examination Category Sub-Category Detail Notes Category Not es Exam GENERAL APPEARANCE: Appears stated age General: HEENT: Neck: Respiratory Cardiac Abdominal: Back: Prostate: : Skin: Neurological: Skin No cyanosis Eyes Ears Nose Mouth [place] and moist. Uppe r and lower dentures Trachea Midline Chest Normal Ribs Sternum Respiratory Normal Movements, Ef fort Normal Auscultation Diminished but clear breath sounds Percussion Egophony Bronchophony Fremitus Whispered pectoriloquy Cardiac Regular rate and rhy thm Gastrointestinal Normal Vascular No edema Musculoskeletal Normal posture Neurological Mild dysarthria; chr onic right upper extremity weakness Psychiatric Alert and oriented x 3 Mentation/Cognition Very anxious, emotio nal Oropharynx/Tongue Mallampati Class III . No candidiasis Oropharynx
--- OUTSIDE RECORDS SUMMARY | 2024-12-20 11:00 | XMS_ITS ---
Author Organization [facility] [place] Address [address] [place] [address] Care Team Providers Care Sew Out Operator Name Role Phone Wendy Burden CNP Primary Care Provider Unavail Roberto Hobbs Unavailable [phone] REASON FOR VISIT 1YEAR-COPD Encounters Encounter Location Date Provider Diagnosis Pulmonary Medicine [facility] [address] [place] [address] 12/20/2024 Roberto Grossman Plan Of Treatment Next Appt Details Provider Name:Erynfreddy Jefferywla , 06/27/2025 11:00:00 AM, [address] [place], [address], Progress Notes * Mirta MITCHELL MDOB:[birth year] (74 yo F)Acc No.[id number]:12/20/2024 UNLOCKED PROGRESS NOTE Follow Up Patient: Akila ADELINE Mirta Wilburn Provider: Jonathan Grossman DO :1950 A ge:74 Y S ex:Female Date:12/20/2024 Address:[address] [facility] [place] Pcp:Wendy Burden CNP Subjective: * Chief Complaints: * 1 . 1YEAR-COPD. * Medical History: Objective: * Vitals: Assessment: Plan: * Treatment: * * Electronic signature of Sania Grossman DO on 03/20/2025 at 10:46 AM EDT Sign off status: Pending Visit Status: R /S By O/P (Rescheduled by Office/Provider) * Provider: Jonathan Grossman, Date: 0 12/20/2024 Generated for Rosette parks/Warren/Ruslan on: 0 03/20/2025 10:46 AM EDT
--- OUTSIDE RECORDS SUMMARY | 2024-12-27 10:00 | XMS_ITS ---
Author Organization [facility] [place] Address [address] [place] [address] Care Team Providers Care Unit Technician Name Role Phone Wendy Burden CNP Primary Care Provider Unavail Eryn Johnson Unavailable [phone] REASON FOR VISIT MD Encounters Encounter Location Date Provider Diagnosis [facility] [address] [place] [address] 12/27/2024 Eryn Lundberg Plan Of Treatment Next Appt Details Provider Name:Eryn Lundberg , 06/27/2025 11:00:00 AM, [address] [place] [address], [phone], Progress Notes * Mirta MITCHELL MDOB:[birth year] (74 yo F)Acc No.[id number]:12/27/2024 UNLOCKED PROGRESS NOTE Progress Notes Patient: Akila ERNESTOANDREIA Mirta Wilburn Provider: Annette Lundberg M.D. :1950 A ge:74 Y S ex:Female Date:12/27/2024 Address:[address] [place] [address] Pcp:Wendy Burden CNP Subjective: * Chief Complaints: * 1 . MD. * Medical History: Objective: * Vitals: Assessment: Plan: * Treatment: * * Electronic signature of Ria Lundberg MD, [id number] on 03/20/2025 at 10:47 AM EDT Sign off status: Pending Visit Status: P EN (Pending) * Provider: Annette Lundberg M.D. Date: 0 12/27/2024 Generated for Rosette parks/Warren/Vivianitting on: 0 03/20/2025 10:47 AM EDT
--- OUTSIDE RECORDS SUMMARY | 2025-03-07 10:39 | XMS_ITS ---
Author Organization [facility] [place] Address [address] [place] [address] Care Team Providers Care Rn L And D Name Role Phone Wendy Burden CNP Primary Care Provider Roberto Gusman [phone] REASON FOR VISIT Letter/Appointment Encounters Encounter Location Date Provider Diagnosis Pulmonary Medicine [place] [address] [place] [address] 03/07/2025 Roberto Grossman Plan Of Treatment Next Appt Details Provider Name:Eryn Lundberg , 06/27/2025 11:00:00 AM, [address] [place], [address], Progress Notes * Mirta MITCHELL MDOB:[birth year] (74 yo F)Acc No.[id number]:03/07/2025 Patient: Mirta DICKERSON :1950 A ge:74 Y S ex:Female Address:[address] [place], [address] * true * Date: Generated for Printi ng/Faxing/eTransmitting on: 0 03/20/2025 10:47 AM EDT
--- OUTSIDE RECORDS SUMMARY | 2025-03-07 16:15 | XMS_ITS | Encounter Summary ---
Author Organization [facility] Address [address] [facility] [place] [address] Care Team Providers Care Card Lacer Jacquard Name Role Phone Charanjit Chen MD Primary Care Provider [phone] Henok Hendrix MA Unavailable Wendy Burden NP Unavailable [phone] Reason for Visit * Reason Comments Seizures Encounter Details Date Type Department Care Team (Latest Contact Info) Description 03/07/2025 4:15 PM EDT [facility] [address] [facility] [address] [place] [phone] Aj Lockwood MD [address] [facility] [address] [place], [place] [id number] Seizure (HCC) (Primary Dx); Loss of consciousness (HCC); Carotid stenosis, bilateral; Sequelae of cerebral infarction; Gait disturbance Social History Tobacco Use Types Packs/Day Years [...] How often do you attend chur or judaism services? Never 12/08/2023 Do you belong to any clubs o r organizations such as orthodox groups, unions, fraternal or athletic groups, or [...] Recorded Patient Health Questionnaire-2 Score 1 08/02/2024 [facility] of Occupat ional Health - Occupational Stress [...] Sign Reading Time Taken Comments Blood Pressure - - Pulse - - Temperature - - Respiratory Rate - - Oxygen Saturation - - Inhaled Oxygen Concentration - - Weight 65.8 kg (145 lb) 03/07/2025 4:05 PM EDT Height 157.5 cm (5' 2 ) 03/07/2025 4:05 PM EDT Body Mass Index 26.52 03/07/2025 4:05 PM EDT documented in this encounter Progress Notes * Aj Lockwood MD - 03/07/2025 4:15 PM EDTAssociated Problem(s): Seizure (HCC) --- presumed epilepsy. Likely focal onset given infarcts. Driving - does not drive. WWE - postmenopausal. (Continue current regimen.) LTG, LCM levels. (Still not done) Amb EEG x 72 h. * Aj Lockwood MD - 03/07/2025 4:15 PM EDTAssociated Problem(s): Carotid stenosis, bilateral Get recent US carotids. * Aj Lockwood MD - 03/07/2025 4:15 PM EDTAssociated Problem(s): Sequelae of cerebral infarction Get echo when done. * Aj Lockwood MD - 03/07/2025 4:15 PM EDTAssociated Problem(s): Gait disturbance (PT completed.) * Aj Lockwood MD - 03/07/2025 4:15 PM EDTAssociated Problem(s): Loss of consciousness (HCC) [facility] result. * Aj Lockwood MD - 03/07/2025 4:15 PM EDT Images from the original note were not included. Outpatient Progress Note Patient: Mirta Wilburn Stephen Dept: Neurology : 1950 Appt Date: 03/07/2025 Prev Appt: 02/07/2025 Chief Complaint Patient presents with Seizures Appointment Note -- [facility] 02/11/25 Seizure Assessment and Plan - Assessment & Plan Loss of consciousness (HCC) [facility] records - neuro consult, EEG result. Seizure (HCC) --- presumed epilepsy. Likely focal onset given infarcts. Driving - does not drive. WWE - postmenopausal. (Continue current regimen.) LTG, LCM levels. (Still not done) Amb EEG x 72 h. Carotid stenosis, bilateral Get recent US carotids. Sequelae of cerebral infarction Get echo when done. Gait disturbance (PT completed.) No orders of the defined types were placed in this encounter. Follow-Up - Follow up in about 2 months (around 05/07/2025). Lab Frequency Next Occurrence Ambulatory referral to Neurology Once 12/01/2024 CT abdomen pelvis w IV contrast Once 12/21/2024 Ambulatory referral to Neurology Once 01/04/2025 Ambulatory referral to Gastroenterology Once 01/04/2025 History of Present Illness, Associated Treatments and Results - Dx SEIZURE . LoC Tx LTG 150 + LCM 100 q12 [] (+ GBP --?RLS) AEs Hx <03/09>[facility] records rev'd. Event in Jun 2024, upper body shaking, confused, not responding, dur 10', resolved by the time ambulance arrived. Adm Melissa, teleneurology recommended adding LCM. <03/09>O2 in the field was in the 80s & required substantial amount of O2 in the hospital. LoC - was at [place]. Hot day. Sat down on a bench. 3-4' in felt dizzy, leaned over to L. Son was talking to pt but she couldn't respond. Urinary incontinence. No tongue or cheek biting. -> [facility] ER, admitted. Apparently BP low on adm. Failed Onset Semeiology Aetiology Trigger Preg EEG <03/09>(02/2025, [facility]/allie) - NL (06/2024, [facility], apparently while adm Melissa) - stuporous, gen theta; also read as asymmetry incr background L hem, no mention of skull defect, interp'd as L hem dysfunction Amb EEG VEEG (06/2024, [facility], 2 d) - stupor/theta, improving to lethargy/6 Hz, then to alert/9 Hz; SW T7>F7 x 2, T8>P8 x 1 ASHWINI MR (02/2025, [facility], c/s Gd - infarct L MCA post div; also R fro; lacunes B BG; ^T2/FLAIR . . . . (09/2024, Melissa) - infarct L post fro-par-tem +GRE, R fro, L cbl, R>L caudate . . . . (06/2024, [place]) - similar PET SPECT Imaging Testing Surgery Born - [...] 2011 Semeiology Aphasia, R arm weakness Imaging (q.v.) Testing Surgery carotid endarterectomy (~2011, L) Failed Dx GAIT Tx PT completed AEs Hx Instability noted on exam. Onset Semeiology Imaging Testing Surgery Failed Physical Exam - General appearance, mentation, extraocular movements, facial strength and movement, hearing, upper and lower extremity strength and tone, sensation to gross testing, coordination, and gait are normalor at baseline unless noted below. HEENT - ___, unchanged: ___, orig: ___ MS - ___, unchanged: ___, orig: ___ CNN - ___, unchanged: ___, orig: Dysarthria Motor - ___, unchanged: ___, orig: RUE 4/5 generally Sens - ___, unchanged: ___, orig: ___ Reflex - ___, unchanged: ___, ori/ RUE generally Coord - ___, unchanged: ___, orig: Zachary slow R ... Romberg 1+ but then also with tactile feedback Gait - ___, unchanged: ___, orig: Wide, decr arm swing R ... Tandem 3+ Vestib - ___, unchanged: ___, orig: ___ MSK - ___, unchanged: ___, orig: ___ Other - ___, unchanged: ___, orig: ___ Vital Signs - Visit Vitals Ht 5' 2 Wt 145 lb BMI 26.52 kg/m?? OB Status Hysterectomy Smoking Status Former BSA 1.7 m?? Review of Systems - . Const: Denies [...] Mother's Sister Outpatient Encounter Medications as of 03/07/2025 Medication Sig Dispense Refill albuterol HFA 90 [...] mg) by mouth Daily 90 tablet 0 Vjjcwpu-Bdoqjpmuvix-Jnwccyevog (Breztri Aerosphere) 160-9-4.8 MCG/ACT aerosol Inhale 2 puffs in themorning and 2 puffs before bedtime. 10.7 g 2 Carafate 1 GM/10ML suspension Take 1 g by mouth gabapentin (Neurontin) 300 MG capsule Take 1 capsule (300 mg) by mouth in the morning and 1 capsule(300 mg) in the evening and 1 capsule (300 mg) before bedtime. 270 capsule 0 hyoscyamine (Anaspaz,Levsin) 0.125 MG tablet Dissolve 2 (TWO) tablets under tongue FOUR times dailyas needed for spasm lacosamide (Vimpat) 100 MG tablet Take 1 tablet (100 mg) by mouth in the morning and 1 tablet (100 mg) before bedtime. 60 tablet 5 lamoTRIgine (LaMICtal) 150 MG tablet Take 1 tablet (150 mg) by mouth Daily 30 tablet 5 losartan (Cozaar) 25 MG tablet Take 1 tablet (25 mg) by mouth Daily 90 tablet 1 oxyCODONE-acetaminophen (Percocet) 5-325 MG tablet Take 1 tablet by mouth Daily as needed for severe pain 30 tablet 0 pantoprazole (ProtoNix) 40 MG EC tablet Take 1 tablet (40 mg) by mouth in the morning and 1 tablet (40 mg) before bedtime. Do not crush, chew, or split. 60 tablet 1 traZODone (Desyrel) 100 MG tablet Take 1 tablet (100 mg) by mouth at bedtime 90 tablet 1 Trulance tablet tablet Take 1 tablet by mouth Daily [DISCONTINUED] LORazepam (Ativan) 0.5 MG tablet Take 1 tablet (0.5 mg) by mouth Daily as needed foranxiety for up to 15 days 15 tablet 0 [DISCONTINUED] oxyCODONE-acetaminophen (Percocet) 5-325 MG tablet No facility-administered encounter medications on file as of 03/07/2025. Aj Lockwood M.D. [facility] ? [address] [facility] [address] ? [place], [place] [address] ? ? fax Neurology ? Clinical Neurophysiology ? Epilepsy ? Sleep Disorders ? Clinical Informatics documented in this encounter Plan of Treatment Upcoming Encounters Date Type Department Care Team (Late st Contact Info) Description 03/23/2025 9:05 AM EDT Office Visit [facility] [address] [place] [address] Magui Juan, SHOP TAILOR APPRENTICE-SYNTHETIC CHEMIST [address] [place] [address] 05/02/2025 12:45 PM EDT Office Visit [facility] Neurology [address] [place] [address] Aj Lockwood MD [address] [place] [address] documented as of this encounter Visit Diagnoses Diagnosis Seizure (HCC)- Primary Other convulsions Loss of consciousness (HCC) Other alteration of consciousness Carotid stenosis, bilateral Occlusion and stenosis of carotid artery without mention of cerebral infarction 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 Gait disturbance Abnormality of gait documented in this encounter Additional Health Concerns Assessment Noted Time PHQ-9 Depression Total Score: 10 025 11:00 AM EST A fall risk assessment has been complete d for the patient 12/08/2023 9:26 AM EDT documented as of this encounter Care Teams Card Lacer Jacquard Relationship Specialty Start Date End Date Charanjit Chen MD PCP - General Family Medicine 02/11/24 Wendy Burden NP [address] [place] [address] PCP - Lacy MARIE 01/10/25 Henok Hendrix MA [address] [place] [address] Family Medicine 05/24/24 03/07/25 documented as of this encounter
--- OUTSIDE RECORDS SUMMARY | 2025-03-20 10:46 | XMS_ITS | Encounter Summary ---
Author Organization [facility] Address [address] [place] [address] Care Team Providers Care Die Trimmer Name Role Phone Charanjit Chen MD Primary Care Provider [phone] Betty Singh NP Unavailable [phone] Anne Hartley LPN Unavailable Henok Hendrix MA Unavailable [phone] Wendy Burden NP Unavailable [phone] Encounter Details Date Type Department Care Team (Late st Contact Info) Description 04/22/2024 Orders Only [facility] [address] [place] [address] Betty Singh NP Social History [...] How often do you attend chur or gnosticist services? Never 12/08/2023 Do you belong to any clubs o r organizations such as roman catholic groups, unions, fraternal or athletic groups, or [...] Recorded Patient Health Questionnaire-2 Score 0 03/24/2024 [facility] of Occupat ional Health - Occupational Stress [...] Dermatology [address] [place] [address] Magui Juan, MANAGER BENCH-TAPE WEAVER [address] [place] [address] 05/02/2025 12:45 PM EDT Office [facility] [address] [place] [address] Aj Lockwood MD [address] [facility] [address] [place] [address] documented as of this encounter Procedures Procedure Name Priority Date/Time Associated Diagnosis Comments MISCELLANEOUS LAB TEST Routine 04/21/2024 9:22 AM EDT documented in this encounter Results * - Miscellaneous Test (04/21/2024 9:22 AM EDT) Betty Singh WELDING MACHINE OPERATOR GAS LAB BLOOD ORDERABLES Fin al Result documented in this encounter Visit Diagnoses Not on filedocumented in this encounter Additional Health Concerns Assessment Noted Time PHQ-9 Depression Total Score: 5 07/09/20 23 2:09 PM EST A fall risk assessment has been complete d for the patient 12/08/2023 9:26 AM EDT documented as of this encounter Care Teams Die Trimmer Relationship Specialty Start Date End Date Charanjit Chen MD PCP - General Family Medicine 02/11/24 Wendy Burden NP [address] [facility] [place] [address] PCP - Lacy MARIE 01/10/25 Betty Singh, CLOTILDE Nurse Practitioner Family Medicine 02/11/24 11/20/24 Anne Hartley LPN [address] [place] [address] Licensed Practical Nurse Family Medicine 03/25/2405/13 Henok Hendrix MA [address] [place] [address] Family Medicine 05/24/24 03/07/25 documented as of this encounter
--- OUTSIDE RECORDS SUMMARY | 2025-03-20 10:46 | XMS_ITS | Encounter Summary ---
Author Organization [facility] Address [address] [place] [address] Care Team Providers Care Video Poker Floorman Name Role Phone Charanjit Chen MD Primary Care Provider Henok Hendrix MA Unavailable [phone] Wendy Burden NP Unavailable [phone] Encounter Details Date Type Department Care Team (Late st Contact Info) Description 12/06/2024 Orders Only [facility] [address] [place] [address] Adam Mckeon MD [address] [place] [address] Social History Tobacco Use Types Packs/Day Years [...] often do you attend chur ch or zoroastrianism services? Never 12/08/2023 Do you belong to any clubs o r organizations such as adventist groups, unions, fraternal or athletic groups, or [...] Recorded Patient Health Questionnaire-2 Score 1 08/02/2024 [facility] of Occupat ionva Health - Occupational Stress Questionnaire Answer Date [...] Dermatology [address] [place] [address] Magui Juan, SHELL MACHINE OPERATOR-SURVEY PROJECT MANAGER [address] [place] [address] 05/02/2025 12:45 PM EDT Office Visit [facility] [place] [facility] Neurology [address] [place] [address] Aj Lockwood MD [address] [facility] [address] [place] [id number] documented as of this encounter Procedures Procedure [...] documented as of this encounter Care Teams Video Poker [place]orman Relationship Specialty Start Date End Date Charanjit Chen MD PCP - General Family Medicine 02/11/24 Wendy Burden NP [address] [place] [address] PCP - Lacy MARIE 01/10/25 Henok Hendrix MA [address] [place] [address] Family Medicine 05/24/24 03/07/25 documented as of this encounter
--- OUTSIDE RECORDS SUMMARY | 2025-03-20 10:46 | XMS_ITS | Encounter Summary ---
Author Organization [facility] Address [address] [place] [address] Care Team Providers Care Water Resources Project Manager Name Role Phone Shaikh NAHEED Horan Primary Care Provider [place] FREIGHT BREAKER Unavailable Unavailable Charanjit Chen MD Primary Care Provider [phone] MAGISTRATE Unavailable Anne Hartley FREIGHT BREAKER Unavailable Henok Hendrix MA Unavailable [phone] MAGISTRATE Unavailable [phone] Encounter Details Date Type Department Care Team (Late st Contact Info) Description 01/25/2024 Clinisync Result Encounter [facility] External Department Unsolicited Shaikh Horan MD [address] [place] [address] Social History Tobacco Use Types Packs/Day Years [...] How often do you attend chur or zoroastrian services? Never 12/08/2023 Do you belong to [...] Recorded Patient Health Questionnaire-2 Score 0 01/04/2024 [facility] of Occupat ional Health - Occupational Stress [...] Dermatology [address] [place] [address] Magui Juan APRN-FIELD MACHINIST [address] [place] [address] 05/02/2025 12:45 PM EDT Office Visit [facility] [place] [facility] [address] [place] [address] Aj Lockwood MD [address] [facility] [place] [address] documented as of this encounter Procedures Procedure Name Priority Date/Time Associated Diagnosis Comments PET SKULL BASE TO MID THIGH 01/25/2024 11:12 PM EDT documented in this encounter Results * PET/CT skull base to mid thigh (01/25/2024 11:12 PM EDT) Anatomical Region Laterality Modality Body Computed Tomogra phy 01/25/2024 11:1 2 PM EDT Narrative 01/25/2024 11:14 PM EDT The [address] [address] PET Report Signed Patient: BHUPENDRA MIRANDA MR#: [id number] : 1950 Acct:[id number] Age/Sex: 73 / F ADM Date: 01/25/24 Loc: PETCT Attending Dr: Shaikh Aung Davidson Ordering Physician: Shaikh Lety Horan Date of Service: 01/25/24 Procedure(s): PET skull to mid thigh Accession Number(s): [id number] cc: Shaikh Lety Horan The [address] [address] Patient Name: BHUPENDRA MIRANDA MRN: [id number] date: 1950 Sex: F Assigned Patient Location: PETCT Current Patient Location: PETCT Accession/Order Number: [id number] Exam Date: 01/25/2024 15:39 Report Date: 01/25/2024 [...] M.D. Signed By: 01/25/242313 DD/ 11 TD/TT: Installation Drafter: Procedure Note Radiology, Radiologist, MD - 01/25/2024 [place] [address] PET Report Signed Patient: BHUPENDRA MIRANDA MMR#: [id number] : 1950cct:[id number] Age/Sex: 73 / FADM Date: 01/25/24 Loc: PETCT Attending Dr: Shaikh Aung Davidson Ordering Physician: Shaikh Lety Horan Date of Service: 01/25/24 Procedure(s): PET skull to mid thigh Accession Number(s): [id number] cc: Shaikh Lety Horan The [place] [id number] Patient Name: BHUPENDRA MIRANDA MRN: [id number] date: 1950 Sex: F Assigned Patient Location: PETCT Current Patient Location: PETCT Accession/Order Number: [id number] Exam Date: 01/25/2024 15:39 Report Date: 01/25/2024 [...] Acosta M.D. Signed By:01/25/242313 DD/ 11 TD/TT: Installation Drafter: us Shaikh Aung FARFAN IMG CT PROCEDURES Final Result documented in this encounter Visit Diagnoses Not on filedocumented in this encounter Additional Health Concerns Assessment Noted Time PHQ-9 Depression Total Score: 5 07/09/20 23 2:09 PM EST A fall risk assessment has been complete d for the patient 12/08/2023 9:26 AM EDT documented as of this encounter Care Teams Water Resources Project Manager Relationship Specialty Start Date End Date Shaikh Horan MD [address] [place] [address] PCP - General Internal Medicine 10/12/23 02/10/24 Charanjit Chen MD PCP - General Family Medicine 02/11/24 Wendy Burden NP [address] [place] [address] PCP - Lacy MARIE 01/10/25 Flower Stokes LPN Licensed Practical Nurse Family Medicine 11/26/23 Betty Singh NP Nurse Practitioner Family Medicine 02/11/24 11/20/24 Anne Hartley LPN [address] [place] [address] Licensed Practical Nurse Family Medicine 03/25/2405/13 Henok Hendrix, CYNTHIA [address] [place] [address] Family Medicine 05/24/24 03/07/25 documented as of this encounter
--- OUTSIDE RECORDS SUMMARY | 2025-03-20 10:46 | XMS_ITS | Clinical Summary ---
Author Organization [facility] Address [address] [place] [address] Care Team Providers Care Logistics Vice President Name Role Phone Charanjit Chen MD Primary Care Provider [phone] Wendy Burden NP Unavailable [phone] Allergies No known active allergies Medications albuterol HFA 90 mcg/act inhalerIndications :Moderate COPD (chronic obstructive pulmonary disease) ([facility]) Inhale 2 puffs every 4 (four) hours if needed for wheezing or shortness of breath 6.7 g 11/26/19 24 Active Budeson-Glycopyrro l-Formoterol (Breztri Aerosphere) 160-9-4.8 MCG/ACT aerosolIndications :Moderate COPD (chronic obstructive pulmonary disease) (HCC) Inhale [...] 25 025 Discontin ued(Thera py completed ) oxyCODONE-acetamin ophen (Percocet) 5-325 MG tablet 02/15/20 25 025 Discontin ued(Reord er) Active Problems Problem Noted Date Diagnosed Date Loss of consciousness 03/07/2025 Assessment & Plan (03/07/2025 4:25 PM EDT): [facility] records - neuro consult, EEG result. Chronic constipation 02/22/2025 Stress-related physiological response affecting medical condition 02/22/2025 Rash 02/09/2025 Seizure 02/07/2025 Overview (02/07/2025): --- presumed epilepsy. Likely focal onset given infarcts. Assessment & Plan (03/07/2025 4:25 PM EDT): --- presumed epilepsy. Likely focal onset given infarcts. Driving - does not drive. WWE - postmenopausal. (Continue current regimen.) LTG, LCM levels. (Still not done) Amb EEG x 72 h. Assessment & Plan (02/22/2025 4:54 PM EDT): [...] Carotid stenosis, bilateral 02/07/2025 Assessment & Plan (03/07/2025 4:25 PM EDT): Get recent US carotids. Assessment & Plan (02/07/2025 6:12 PM EDT): US carotids - [facility]. Orders: Vascular US carotid artery duplex bilateral; Future Sequelae of cerebral infarction 02/07/2025 Assessment & Plan (03/07/2025 4:25 PM EDT): Get echo when done. Assessment & Plan (02/07/2025 6:12 PM EDT): (Continue current regimen.) Echo c bubble study. Gait disturbance 02/07/2025 Assessment & Plan (03/07/2025 4:25 PM EDT): (PT completed.) Assessment & Plan (02/07/2025 6:12 PM EDT): PT (NEREIDA Sampson). 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 10/11 Mass of right parotid gland 10/27/2024 Prediabetes 10/06/2024 Family history of prothrombin gene mutation 09/11 CVA (cerebral vascular accident) 05/18/2024 Assessment & Plan (02/22/2025 4:55 PM EDT): recent hospitalization at [facility] around 10/04/24, was also sent to [place] for rehab as well Current meds: eliquis [...] (01/26/2025 11:18 AM EDT): recent hospitalization at [facility] around 10/04/24, was also sent to [place] for rehab as well Current meds: eliquis [...] (10/28/2024 11:55 AM EDT): recent hospitalization at [facility] around 10/04/24, was also sent to [...] confused after regaining consciousness. Patient went to [facility]. CTA - No PE Will get an [...] upper lobe mass on CTA performed at [facility] on 12/27/23 in ED visit. Smoker - recently quit LDCT 08/04 - No left upper lobe mass. PET scan - lung nodule in left upper lobe is hypermetabolic. Refer to Oncology. Dr Grossman, also made aware. Assessment & Plan (01/06/2024 2:59 PM EDT): 2.2 cm left upper lobe mass on CTA performed at [facility] on 12/27/23 in ED visit. Smoker - [...] upper lobe mass on CTA performed at [facility] on 12/27/23 in ED visit. Smoker - [...] of the risks of continued smoking: stroke, NV, all forms of cancer, lung disease, and [...] of the risks of continued smoking: stroke, NV, all forms of cancer, lung disease, and [...] of the risks of continued smoking: stroke, NV, all forms of cancer, lung disease, and [...] Encounters Date Type Department Care Team Description 03/07/2025 4:15 PM EDT Office Visit N[facility] Neurology [address] [place] [address] Aj Lockwood MD Seizure (HCC) (Primary Dx); Loss of consciousness (HCC); Carotid stenosis, bilateral; Sequelae of cerebral infarction; Gait disturbance 03/07/2025 Bamboo flowsheet [facility] [address] [place] [address] Aj Lockwood MD 03/07/2025 Travel 03/06/2025 [facility] [address] [place] [address] Henok Hendrix MA 02/24/2025 Patient Outreach [facility] [address] [place] [address] Henok Hendrix MA 02/24/2025 Patient Outreach [facility] [address] [place] [address] Henok Hendrix MA 02/23/2025 Abstract [facility] [address] [place] [address] Wendy Burden NP 02/23/[address] [facility] [address] [place] [address] Wendy Burden NP 02/22/2025 11:30 AM EDT Office Visit [facility] [address] [place] [address] Wendy Burden NP Chronic abdominal pain (Primary Dx); Seizure ([facility]); Cerebrovascular accident (CVA), unspecified mechanism (HCC); Mass of left lung; Adenocarcinoma of left lung (HCC); Infrarenal abdominal aortic aneurysm (AAA) without rupture; Syncope and collapse 02/21/2025 1:25 PM EDT [facility] [address] [place] [address] Magui Juan, RN IMMUNOLOGY-EQUALIZER OPERATOR Inflamed seborrheic keratosis 02/21/2025 Bamboo [facility] [address] [place] [address] Magui Juan, RN IMMUNOLOGY-EQUALIZER OPERATOR 02/21/2025 Travel 02/15/2025 Patient Outreach [place] [address] [place] [address] Henok Hendrix MA 02/09/2025 Orders Only [facility] [address] [place] [address] Wendy Burden NP Rash (Primary Dx) 02/09/2025 Patient Outreach [place] [address] [place] [address] Henok Hendrix MA 02/07/2025 9:45 AM EDT [facility] [address] [place] [address] Aj Lockwood MD Seizure (HCC) (Primary Dx); Carotid stenosis, bilateral; Sequelae of cerebral infarction; Gait disturbance; Stroke, lacunar (HCC); Cerebral artery occlusion with cerebral infarction (HCC); Other transient cerebral ischemic attacks and related syndromes; Patent foramen ovale (HHS-HCC); Alteration of awareness; Cerebrovascular accident (CVA), unspecified mechanism (HCC); Syncope and collapse; Peripheral polyneuropathy 02/07/2025 Bamboo flowsheet [facility] [address] [place] [address] Aj Lockwood MD 02/07/2025 Travel 01/26/2025 10:30 AM EDT Office Visit [facility] [address] [place] [address] Wendy Burden NP Chronic abdominal pain (Primary [...] aneurysm (AAA) without rupture 01/26/2025 Patient Outreach [facility] [address] [place] [address] Henok Hendrix MA 01/26/2025 Bamboo flowsheet [facility] [address] [place] [address] Wendy Burden NP 01/16/2025 External Result Encounter N[facility] External Department Unsolicited Tammie Shah NP 01/04/2025 Orders Only [facility] [address] [place] [address] Wendy Burden NP Epigastric pain (Primary Dx); Chronic abdominal pain; Gastroesophageal reflux disease, unspecified whether esophagitis present; History of colon polyps; Cerebrovascular accident (CVA), unspecified mechanism (HCC) 01/04/2025 Patient Outreach [facility] [address] [place] [address] Henok Hendrix MA 01/04/2025 Refill [facility] [address] [place] [address] Wendy Burden NP Alteration of awareness 01/04/2025 Refill [facility] [address] [place] [address] Wendy Burden NP 01/03/2025 Refill [facility] [address] [place] [address] Wendy Burden, CLOTILDE Chronic abdominal pain; Epigastric pain 01/02/2025 Patient Outreach [facility] [address] [place] [address] Henok Hendrix MA 12/29/2024 Clinisync Result Encounter NOMS External Department Unsolicited Wendy Burdne NP 12/22/2024 External Result Encounter [facility]OM[facility] External Department Unsolicited Wendy Burden NP 12/22/2024 Clinisync Result Encounter NOMS External Department Unsolicited Wendy Burden, CLOTILDE 12/21/2024 4:00 PM EDT Office Visit [facility] [address] [place] [address] Wendy Burden, CLOTILDE Epigastric pain (Primary Dx); Gastroesophageal reflux disease, unspecified whether esophagitis present; Infrarenal abdominal aortic aneurysm (AAA) without rupture; Chronic abdominal pain; Dysuria; Tobacco dependency 12/21/2024 Bamboo flowsheet [facility] [address] [place] [address] Wendy Burden NP 12/19/2024 Refill [facility] [address] [place] [address] Wendy Burden NP Alteration of awareness from Last 3 Months Immunizations Immunization Administration [...] How often do you attend chur or roman catholic services? Never 12/08/2023 Do you belong to [...] Recorded Patient Health Questionnaire-2 Score 1 08/02/2024 [facility] - Occupational [...] 10:50 AM EDT Respiratory Rate 20 01/26/2025 10:27 AM EDT Oxygen Saturation 94% 02/22/2025 10:50 AM EDT Inhaled Oxygen Concentration - - Weight 65.8 kg (145 lb) 03/07/2025 4:05 PM EDT Height 157.5 cm (5' 2 ) 03/07/2025 4:05 PM EDT Body Mass Index 26.52 03/07/2025 4:05 PM EDT Plan of Treatment Upcoming Encounters Date Type Department Care Team (Late st Contact Info) Description 03/23/2025 9:05 AM EDT Office Visit [facility] [address] [place] [address] Magui Juan, RN IMMUNOLOGY-EQUALIZER OPERATOR [address] [place] [address] 05/02/2025 12:45 PM EDT Office Visit NEREIDA [facility] Neurology [address] [place] [address] Aj Lockwood MD [address] [facility] [address] [place] [id number] Health Maintenance Due Date Last Done Comments [...] AM EDT CCF CMP (CMP) (FOR REMOTE [facility] USE) Routine 12/22/2024 10:55 AM EDT TB URINE MICROSCOPIC ONLY Routine 12/22/2024 10:41 AM EDT TB UA (CLEAN/CATCH) MICROSCOPIC IF INDICATE Routine 12/22/2024 10:41 AM EDT URINE CULTURE - [facility] Routine 12/22/2024 10:41 AM EDT CULTURE, URINE, ROUTINE Routine 12/22/2024 10:41 AM EDT from Last 3 Months Results * Cryotherapy, skin lesion (02/21/2025 1:27 PM EDT) Magui Juan RN IMMUNOLOGY-EQUALIZER OPERATOR DERM PROCEDURE ORDERAB LES Final Result * [...] 01/16/25 1445 Narrative 01/16/2025 2:47 PM EDT [facility] [place] [address] CT Scan Report Signed Patient: Bhupendra Rubi MR#: [id number] : 1950 Acct:[id number] Age/Sex: 74 / F ADM Date: 01/16/25 Loc: Room: Type: [facility] RCR Attending Dr: Judit Martini MD Copies to: [...] con Procedure Note Radiology, Radiologist, - 01/16/2025 [facility] [place] [address] [place], [place] [address] CT Scan Report Signed Patient: Bhupendra Rubi MMR#: [id number] : 1950cct:[id number] Age/Sex: 74 / FADM Date: 01/16/25 Loc: XT Room:Type: [facility] Attending Dr: Judit Martini MD Copies [...] Berger M.D. 01/16/2025 2:45 PM Dictation Location: [place] [address] Transcribed By: [facility] 01/16/25 2696 Dictated By: Adam Berger DO 01/16/25 1439 Signed By: <Electronically signed by Adam Berger DO in OV> 01/16/25 1445 Tammie Shah WEB PRESS OPERATOR APPRENTICE IMG CT PROCEDURES Final Resul t * CT ABDOMEN PELVIS W CON (12/29/2024 11:00 AM EDT) Anatomical Region Laterality Modality Other 12/29/2024 11:0 0 AM EDT Narrative 12/29/2024 11:03 [place] [address] CT Scan Report Signed Patient: BHUPENDRA RUBI MR#: [id number] : 1950 Acct:[id number] Age/Sex: 74 / F ADM Date: 12/29/24 Loc: CT Attending Dr: Wendy Burden NP Ordering Physician: Wendy Burden NP Date of Service: 12/29/24 Procedure(s): CT abdomen pelvis w con Accession Number(s): [id number] cc: Wendy Burden NP [place] [address] Patient Name: BHUPENDRA RUBI MRN: [id number] date: 1950 Sex: F Assigned Patient Location: CT Current Patient Location: CT Accession/Order Number: [id number] Exam Date: 12/29/2024 10:36 Report Date: 12/29/2024 11:00 At the request of: EWNDY BURDEN NP Procedure: CT abdomen pelvis w [...] Brar M.D. 12/29/2024 11:00 AM Dictation Location: [place] [address] Electronically authenticated by: [id number] Y Date: 12/29/2024 11:00 Dictated By: Darshana Brar M.D. Signed By: 12/29/24 1103 DD/ 1100 TD/TT: Mechanical Test Engineer: Procedure Note Radiology, Radiologist, MD - 12/29/[address] [place] [id number] Scan Report Signed Patient: BHUPENDRA RUBI MMR#: [id number] : 1950cct:[id number] Age/Sex: 74 / FADM Date: 12/29/24 Loc: CT Attending Dr: Wendy Burden NP Ordering Physician: Wendy Burden NP Date of Service: 12/29/24 Procedure(s): CT abdomen pelvis w con Accession Number(s): [id number] cc: Wendy Burden NP [address] [address] Patient Name: BHUPENDRA RUBI MRN: [id number] date: 1950 Sex: F Assigned Patient Location: CT Current Patient Location: CT Accession/Order Number: [id number] Exam Date: 12/29/2024 10:36 Report Date: 12/29/2024 [...] Brar M.D. 12/29/2024 11:00 AM Dictation Location: [place] [address] Electronically authenticated by: [id number] Y Date: 511:00 Dictated By: Darshana Brar M.D. Signed By:12/29/24 1103 DD/ 1100 TD/TT: Mechanical Test Engineer: Wenyd uBrden NP [facility] Final Result * [facility] LIPASE (12/22/2024 10:55 AM EDT) LIPASE 31.0 16.0 - 77.0 U/L TBH 12/22/2024 10:5 5 AM EDT 12/22/2024 10:58 AM EDT Narrative CLINISYNC - 12/22/2024 11:47 AM EDT Wendy Woodsonmicaelagato CLOTILDE CLINISYNC Final Result CLIN[facility] TB * (ABNORMAL) [facility] CMP (CMP) (FOR REMOTE [facility] USE) (12/22/2024 10:55 AM EDT) SODIUM 142 136 - 145 mmol/L TBH POTASSIUM 4.1 3.5 - 5.1 mmol/L TBH CHLORIDE 103 98 - 107 mmol/L TBH CARBON DIOXIDE 31.1 21.0 - 32.0 mmol/L TBH ANION GAP 12.0 TBH GLUCOSE 106 74 - 106 mg/dL TBH BLOOD UREA NITROGEN 19.0(H) 7.0 - 18.0 mg/dL TBH CREATININE 0.90 0.55 - 1.02 mg/dL TBH TBH EGFR-AF FILIPINO >60 >=60 mL/min/1. 73m 2 TBH TBH EGFR-NON AF FILIPINO >60 >=60 mL/min/1. 73m 2 TBH BUN [...] NP CLINISYNC Final Result [facility]IN[facility] TB * ALL AMYLASE (12/22/2024 10:55 AM EDT) AMYLASE 64 25 - 115 U/L TB 12/22/2024 10:5 5 AM EDT 12/22/2024 10:58 AM EDT Narrative CLINISYNC - 12/22/2024 11:47 AM EDT us Wendy Burden NP CLINIS[facility] Final Result Performing Organization Address [facility] Co de Phone Number CLINIS[facility]NC TB * URINE CULTURE - [facility] (12/22/2024 10:41 AM EDT) URINE CULTURE - FR Urine Culture - [facility] 75,000 colonies/ml mixed TB URINE CULTURE - [facility] bacterial skin contaminants TB URINE CULTURE - [facility] 2 Days TB URINE CULTURE - [facility] TB URINE CULTURE - [facility] Testing performed at [facility] TB URINE CULTURE - [facility] [address] [place] [address] TB 12/22/2024 10:4 1 AM EDT 12/22/2024 10:58 AM EDT Narrative CLINISYNC - 12/26/2024 12:55 PM EDT us Wendy Burden WEB PRESS OPERATOR APPRENTICE LAB BLOOD ORDERABLES Final Resu lt CLINISYNC TB * (ABNORMAL) TB URINE MICROSCOPIC ONLY (12/22/2024 [...] - 12/22/2024 11:23 AM EDT us Wendy Woodsonenrique MABRY CLINISYNC Final Result Performing Organization Address [facility] Co de Phone Number CLINISYNC TBH * (ABNORMAL) TBH UA (CLEAN/CATCH) MICROSCOPIC IF INDICATE (12/22/2024 10:41 AM EDT) Pathologist [facility] COLOR URINE LT. YELLOW YELLOW TBH CLARITY [...] - 12/22/2024 11:23 AM EDT us Wendy Jenise MABRY CLINISYNC Final Result Performing Organization Address [facility] Co de Phone Number CLINISYNC TBH * Urine culture (12/22/2024 10:41 AM EDT) [facility] NOTE 75,000 colonies/ml mixed bacterial skin contaminants 2 Days 12/24/2024 7:25 AM EDT [facility] Urine Urine specimen obtained by clean catch procedure / Unknown 12/22/2024 10:41 AM EDT 12/22/2024 1:51 PM EDT Comment:Clean-Voided Midstre am Wendy Burden WEB PRESS OPERATOR APPRENTICE LAB MICROBIOLOGY - GENERAL TIMOTHY FARIAS Final Result [facility] [address] [place] [address], [facility] [address] [place] [address] from Last 3 Months Insurance [employer] Care Teams Logistics Vice President Relationship Specialty Start Date End Date Charanjit Chen MD PCP - General Family Medicine 02/11/24 Wendy Burden NP [address] [place] [address] PCP - Lacy MARIE 01/10/25
--- OUTSIDE RECORDS SUMMARY | 2025-03-20 10:46 | XMS_ITS | Encounter Summary ---
Author Organization [facility] Address [address] [place] [address] Care Team Providers Care News Production Supervisor Name Role Phone Flower Stokes LPN Unavailable Unavailable Charanjit Chen MD Primary Care Provider [phone] Betty Singh ROD HANGER Unavailable [phone] Anne Hartley AERODYNAMICIST Unavailable Henok Hendrix MA Unavailable [phone] Wendy Burden NP Unavailable [phone] Encounter Details Date Type Department Care [...] Recorded Patient Health Questionnaire-2 Score 0 02/22/2024 [facility] - [...] [facility] [address] [facility] [address] [place] [address] Magui Juan, CHANGE CONTROL COORDINATOR-OWNER MANAGER [address] [place] [address] 05/02/2025 12:45 PM EDT Office [facility] [address] [place] [address] Aj Lockwood MD [address] [facility] [address] [id number] documented as of this encounter Procedures Procedure [...] PM EDT Narrative 03/09/2024 2:49 [place] [address] XRay Report Signed Patient: BHUPENDRA MIRANDA MR#: [id number] : 1950 Acct:[id number] Age/Sex: 73 / F ADM Date: 03/09/24 Loc: SURGOUT Attending Dr: Leigh Thompson D.O. Ordering Physician: Leigh Thompson D.O. Date of Service: 03/09/24 Procedure(s): XR chest 1V Accession Number(s): [id number] cc: LYNETTE SINGH Nathan D.O. The [place] [id number] Patient Name: BHUPENDRA MIRANDA MRN: [id number] date: 1950 Sex: F [facility] Accession/Order Number: [id number] Exam Date: 03/09/2024 14:00 Report Date: 03/09/2024 [...] Signed By: 03/09/24 1449 DD/ 1447 TD/TT: Doormaker: Procedure Note Radiology, Radiologist, - 03/09/2024 [place] [address] XRay Report Signed Patient: BHUPENDRA MIRANDA MMR#: [id number] : 1950cct:[id number] Age/Sex: 73 / FADM Date: 03/09/24 Loc: SURGOUT Attending Dr: Leigh Thompson D.O. Ordering Physician: Leigh Thompson D.O. Date of Service: 03/09/24 Procedure(s): XR chest 1V Accession Number(s): [id number] cc: BETTY SINGH; Leigh Thompson D.O. The [address] [address] Patient Name: BHUPENDRA MIRANDA MRN: [id number] date: 1950 Sex: F Assigned Patient Location: [facility] Current Patient Location: [facility] Accession/Order Number: [id number] Exam Date: 03/09/2024 14:00 Report Date: 03/09/2024 [...] 14:47 Dictated By: Jeff Melton M.D. Signed By:03/09/241448 DD/ 46 TD/TT: Doormaker: [facility] External Data Provider [facility] IMAGING Final Result * COCCIDIOIDES ABS, IGG/IGM, EIA (03/09/2024 2:39 PM EDT) COCCIDABS.1 0.5 . EIA Units TBH Comment: Negative <1.0 Indeterminate 1.0-1.4 Positive >1.4 COCCIDABS.2 0.0 . EIA Units TBH Comment: Negative <1.0 Indeterminate 1.0-1.4 Positive >1.4 Performed at: [address] [id number] Printer Machine: Andrea Stevens MD, Phone: [phone] 03/09/2024 2:39 PM EDT 03/09/2024 2:43 PM EDT Narrative CLINISYNC - 03/12/2024 8:08 PM EDT [facility] External Data Provider LAB BLOOD ORDERAB LES Final [facility] * HISTOPLASMA CAPSULATUM ABS. (03/09/2024 2:39 PM EDT) HISTOPLASMA MYCELIAL CF AB. Negative Neg:<1:2 TBH HISTOPLASMA YEAST CF AB Negative Neg:<1:2 TBH Comment: Performed at: [address] [id number] Printer Machine: Erick Khalil MD, Phone: [phone] 03/09/2024 2:39 PM EDT 03/09/2024 2:43 PM EDT Narrative CLINISYNC - 03/13/2024 2:07 PM EDT us Generic External Data Provider LAB BLOOD ORDERAB LES Final Result [facility] * BLASTOMYCES ABS, QN, DID (03/09/2024 2:39 PM EDT) BLASTOMYCES ABS, QN, DID Negative Neg:<1:1 TBH Comment: Performed at: [address] [id number] Printer Machine: Erick Khalil MD, Phone: [phone] 03/09/2024 2:39 PM EDT 03/09/2024 2:43 PM EDT Narrative CLINISYNC - 03/13/2024 2:07 PM EDT us Generic External Data Provider LAB BLOOD ORDERAB LES Final Result Performing Organization Address City/[facility]/ZIP Co de Phone Number [facility] documented in this encounter Visit Diagnoses Not on filedocumented in this encounter Additional Health Concerns Assessment Noted Time PHQ-9 Depression Total Score: 5 07/09/20 23 2:09 PM EST A fall risk assessment has been complete d for the patient 12/08/2023 9:26 AM EDT documented as of this encounter Care Teams News Production Supervisor Relationship Specialty Start Date End Date Charanjit Chen MD PCP - General Family Medicine 02/11/24 Wendy Burden NP [address] [place] [address] PCP - Lacy MARIE 01/10/25 Flower Stokes LPN Licensed Practical Nurse Family Medicine 11/26/23 Betty Singh NP Nurse Practitioner Family Medicine 02/11/24 11/20/24 Anne Hartley LPN [address] [place] [address] Licensed Practical Nurse Family Medicine 03/25/2405/13 Henok Hendrix, [place] [address] [place] [address] Family Medicine 05/24/24 03/07/25 documented as of this encounter
--- OUTSIDE RECORDS SUMMARY | 2025-03-20 10:46 | XMS_ITS | Encounter Summary ---
Author Organization [facility] Address [address] [place] [address] Care Team Providers Care Wildlife Conservation Professor Name Role Phone Charanjit Chen MD Primary Care Provider [phone] Henok Hendrix MA Unavailable [phone] Wendy Burden NP Unavailable [phone] Encounter Details Date Type Department Care Team (Late st Contact Info) Description 02/23/2025 Abstract [facility] [address] [place] [address] Wendy Burden, CLOTILDE [address] [place] [address] Social History Tobacco Use Types Packs/Day Years [...] How often do you attend chur or synagogue services? Never 12/08/2023 Do you belong to [...] Recorded Patient Health Questionnaire-2 Score 1 08/02/2024 [facility] of Occupat ional Health - [...] Dermatology [address] [place] [address] Magui Juan, PSYCHIATRIC THERAPIST-HUB INVENTORY SPECIALIST [address] [place] [address] 05/02/2025 12:45 PM EDT Office Visit [facility] Neurology [address] [place] [address] Aj Lockwood MD 7991 [facility] [address] [id number] documented as of this encounter Visit Diagnoses Not on filedocumented in this encounter Additional Health Concerns Assessment Noted Time PHQ-9 Depression Total Score: 10 025 11:00 AM EST A fall risk assessment has been complete d for the patient 12/08/2023 9:26 AM EDT documented as of this encounter Care Teams Wildlife Conservation Professor Relationship Specialty Start Date End Date Charanjit Chen MD PCP - General Family Medicine 02/11/24 Wendy Burden NP [address] [place] [address] PCP - Lacy MARIE 01/10/25 Henok Hendrix MA [address] [place] [address] Family Medicine 05/24/24 03/07/25 documented as of this encounter
--- OUTSIDE RECORDS SUMMARY | 2025-03-20 10:46 | XMS_ITS | Encounter Summary ---
Author Organization [facility] Address [address] [place] [address] Care Team Providers Care Superintendent Colliery Name Role Phone Charanjit Chen MD Primary Care Provider Betty Singh PATIENT ACCESS COORDINATOR Unavailable Henok Hendrix MA Unavailable [phone] Wendy Burden PATIENT ACCESS COORDINATOR Unavailable [phone] Encounter Details Date Type Department Care Team (Late st Contact Info) Description 06/15/2024 Orders Only [facility] [address] [place] [address] Shaikh Horan MD [address] [facility] [place] [address] Social History Tobacco Use Types Packs/Day Years [...] How often do you attend chur or anabaptist services? Never 12/08/2023 Do you [...] Recorded Patient Health Questionnaire-2 Score 0 03/24/2024 [facility] of Occupat ional Health - Occupational Stress [...] Dermatology [address] [place] [address] Magui Juan, STUCCO LABORER-ACCOUNT MANAGER RELIEF [address] [place] [address] 05/02/2025 12:45 PM EDT Office Visit [facility]IDA [facility] Neurology [address] [place] [address] Aj Lockwood MD [address] [facility] [address] [place] [address] documented as of this encounter Procedures Procedure Name Priority Date/Time Associated Diagnosis Comments CT HEAD WO IV CONTRAST Routine 06/13/2024 7:51 AM EST documented in this encounter Results * CT head wo IV contrast (06/13/2024 7:51 AM EST) Anatomical Region Laterality Modality Head, Neck Computed Tomogra phy Shaikh Aung FARFAN IM CT PROCEDURES Final Result documented in this encounter Visit Diagnoses Not on filedocumented in this encounter Additional Health Concerns Assessment Noted Time PHQ-9 Depression Total Score: 5 07/09/20 23 2:09 PM EST A fall risk assessment has been complete d for the patient 12/08/2023 9:26 AM EDT documented as of this encounter Care Teams Superintendent Colliery Relationship Specialty Start Date End Date Charanjit Chen MD PCP - General Family Medicine 02/11/24 Wendy Burden NP [address] [place] [address] PCP - Lacy MARIE 01/10/25 Betty Singh NP Nurse Practitioner Family Medicine 02/11/24 11/20/24 Henok Hendrix MA [address] [place] [address] Family Medicine 05/24/24 03/07/25 documented as of this encounter
--- OUTSIDE RECORDS SUMMARY | 2025-03-20 10:46 | XMS_ITS | Encounter Summary ---
Author Organization [facility] Address [address] [place] [address] Care Team Providers Care Wire Brush Maker Name Role Phone Flower Stokes LPN Unavailable Unavailable Charanjit Chen MD Primary Care Provider Betty Singh TRAINING CONSULTANT Unavailable Anne Hartley COOK BOX FILLER Unavailable Henok Hendrix MA Unavailable [phone] Wendy Burden NP Unavailable [phone] Encounter Details Date Type Department Care Team (Late st Contact Info) Description 02/12/2024 Clinisync Result Encounter [facility] External Department Unsolicited Shaikh Horan MD [address] [place] [address] Social History Tobacco Use Types Packs/Day Years [...] How often do you attend chur or scientology services? Never 12/08/2023 Do you belong to [...] Recorded Patient Health Questionnaire-2 Score 0 01/04/2024 [facility] of Occupat ional Health - Occupational Stress [...] Dermatology [address] [place] [address] Magui Juan, MECHANIC INSULATOR-SOFTWARE LEAD [address] [place] [address] 05/02/2025 12:45 PM EDT Office Visit [facility] [address] [place] [address] Aj Lockwood MD [address] [place] [address] documented as of this encounter Procedures Procedure Name Priority Date/Time Associated Diagnosis Comments CA ECHO DOPPLER COMPLETE 02/12/2024 5:23 PM EDT documented in this encounter Results * CA ECHO DOPPLER COMPLETE (02/12/2024 5:23 PM EDT) Anatomical Region Laterality Modality Other 02/12/2024 5:23 PM EDT Narrative 02/12/2024 5:24 PM EDT [address] [address] Cardiology Report Signed Patient: BHUPENDRA MIRANDA MR#: [id number] : 1950 Acct:[id number] Age/Sex: 73 / F ADM Date: 02/12/24 Loc: CARD Attending Dr: Shaikh Aung Davidson Ordering Physician: Shaikh Lety Horan Date of Service: 02/12/24 Procedure(s): CA echo doppler complete Accession Number(s): [id number] cc: Shaikh Lety Horan Patient Name: BHUPENDRA MIRANDA MR#: [id number] : 1950 Exam Date: 02/12/2024 Ordering Doctor: [...] SOARES Signed By: 02/12/241723 DD/ 22 TD/TT: Shovel Engineer: Procedure Note Radiology, Radiologist, MD - 02/12/2024 [place] [address] Cardiology Report Signed Patient: BHUPENDRA MIRANDA MMR#: [id number] : 1950cct:[id number] Age/Sex: 73 / FADM Date: 02/12/24 Loc: CARD Attending Dr: Shaikh Aung Davidson Ordering Physician: Shaikh Lety Horan Date of Service: 02/12/24 Procedure(s): CA echo doppler complete Accession Number(s): [id number] cc: Shaikh Lety Horan Patient Name: BHUPENDRA MIRANDA MR#: [id number] : 1950 Exam Date: 02/12/2024 Ordering Doctor: [...] ANITRA SOARES Signed By:02/12/241723 DD/ 22 TD/TT: Shovel Engineer: us Shaikh Aung [facility] Final Result documented in this encounter Visit Diagnoses Not on filedocumented in this encounter Additional Health Concerns Assessment Noted Time PHQ-9 Depression Total Score: 5 07/09/20 23 2:09 PM EST A fall risk assessment has been complete d for the patient 12/08/2023 9:26 AM EDT documented as of this encounter Care Teams Wire Brush Maker Relationship Specialty Start Date End Date Charanjit Chen MD PCP - General Family Medicine 02/11/24 Wendy Burden NP [address] [place] [address] PCP - Lacy MARIE 01/10/25 Flower Stokes LPN Licensed Practical Nurse Family Medicine 11/26/23 Betty Singh NP Nurse Practitioner Family Medicine 02/11/24 11/20/24 Anne Hartley LPN [address] [place] [address] Licensed Practical Nurse Family Medicine 03/25/2405/13 Henok Hendrix, CYNTHIA [address] [place] [address] Family Medicine 05/24/24 03/07/25 documented as of this encounter
--- OUTSIDE RECORDS SUMMARY | 2025-03-20 10:46 | XMS_ITS | Encounter Summary ---
Author Organization [facility] Address [address] [place] [address] Care Team Providers Care Glazier Supervisor Name Role Phone Unavailable Primary Care Provider Unavailabl e Source Comments In the event this information is protected by the Federal Confidentiality of Alcohol and Drug AbusePatient Records regulations: The Federal rules restrict any use of the information to criminally investigate or prosecute any alcohol or drug abuse patient.[facility] Encounter Details Date Type Department Care Team (Late st Contact Info) Description 05/24/2024 Lab Requisition [facility] [address] [place] [address] Javier Villanueva [address] [phone] Person encountering health services to consult on [...] EST) Case Report Surgical Pathology Report Case: [id number] Authorizing Provider: Javier Villanueva Collected: 05/24/2024 11:27 AM Ordering Location: [facility] Received: 05/24/2024 11:26 AM [facility] Pathologist: Leroy Zayas MD, PhD Specimen: Slide(s), 16 SLIDES [id number] 05/26/2024 1:[address] [facility] FINAL DIAGNOSIS A. 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 - See comment. 05/26/2024 1:[address] [facility] at 1351 EST Diagnosis Comment Thank you for allowing us the opportunity to review this case in consultation representing the colon polyp biopsies from the 73-year-old female. Per provided letter and patient note, the demi chef felt the polyp was completely removed. Histologic [...] to contact the GI consultation service at [phone] with questions or if additional follow-up information becomes available. This case was reviewed in conjunction with the GI pathology fellow, Sangita Rai M.D. 05/26/2024 1:[address] [facility] Clinical History CONSULT REQUESTED 05/26/2024 1:[address] [facility] Performing Lab Diagnostic interpretation performed at: [facility], [address] [place] [address] CLIA# [id number] Chicken Fancier: Henri Mireles MD 05/26/2024 1:[address] [facility] Blocks or Slides MICROSCOPE SLIDE / Unknown 05/24/2024 11:27 AM EST 05/24/2024 11:26 AM EST us Javier Villanueva SURGICAL PATHOLOGY Final Result [facility] [address] [place], [place] [address], documented in this encounter Visit Diagnoses Diagnosis Person encountering health services to consult on behalf of another person Other person consulting on behalf of another person documented in this encounter
--- OUTSIDE RECORDS SUMMARY | 2025-03-20 10:46 | XMS_ITS | Encounter Summary ---
Author Organization [facility] Address [address] [place] [address] Care Team Providers Care Statistics Tutor Name Role Phone Shaikh NAHEED Horan Unavailable [phone] Shaikh NAHEED Horan Primary Care Provider Flower Stokes LPN Unavailable Unavailable Charanjit Chen MD Primary Care Provider Betty Singh FLANGER Unavailable Anne Hartley BLANKING MACHINE OPERATOR Unavailable Henok Hendrix MA Unavailable [phone] Wendy Burden FLANGER Unavailable [phone] Reason for Visit * Reason Comments Med Refill Encounter Details Date Type Department Care Team (Late st Contact Info) Description 11/10/2023 Refill [facility] [address] [place] [address] Shaikh Horan MD [address] [place] [address] Primary hypertension Social History Tobacco Use Types [...] Description 03/23/2025 9:05 AM EDT Office Visit [facility] [address] [place] [address] Magui Juan APRN-STRAWHAT SIZER [address] [place] [address] 05/02/2025 12:45 PM EDT Office Visit [facility] [address] [place] [address] Aj Lockwood MD [address] [facility] [address] [facility] [address] [place], [place] [address] documented as of this encounter Visit Diagnoses Diagnosis Primary hypertension Unspecified essential hypertension documented in this encounter Additional Health Concerns Assessment Noted Time PHQ-9 Depression Total Score: 5 07/09/20 23 2:09 PM EST documented as of this encounter Care Teams Statistics Tutor Relationship Specialty Start Date End Date Shaikh Horan MD [address] [place] [address] PCP - Devoted 04/12/23 11/10/23 Shaikh Horan MD [address] [place] [address] PCP - General Internal Medicine 10/12/23 02/10/24 Charanjit Chen MD PCP - General Family Medicine 02/11/24 Wendy Burden NP [address] [facility] [place] [address] PCP - Lacy MARIE 01/10/25 Flower Stokes LPN Licensed Practical Nurse Family Medicine 11/26/23 Betyt Singh NP Nurse Practitioner Family Medicine 02/11/24 11/20/24 Anne Hartley LPN [address] [place] [address] Licensed Practical Nurse Family Medicine 03/25/2405/13 Henok Hendrix, [place] [address] [place] [address] Family Medicine 05/24/24 03/07/25 documented as of this encounter
--- OUTSIDE RECORDS SUMMARY | 2025-03-20 10:46 | XMS_ITS | Encounter Summary ---
Author Organization [facility] Address [address] [place] [address] Care Team Providers Care Woolen Suiting Shrinker Name Role Phone Charanjit Chen MD Primary Care Provider Betty Singh COUNSELOR AID Unavailable Anne Hartley LPN Unavailable Henok Hendrix MA Unavailable [phone] Wendy Burden COUNSELOR AID Unavailable [phone] Encounter Details Date Type Department Care Team (Latest Contact Info) Description 05/24/2024 Abstract [facility] EXT DEP Javier Villanueva, DO 703 [facility] [address] [place] [address] Social History Tobacco Use Types Packs/Day Years [...] How often do you attend chur or gnosticism services? Never 12/08/2023 Do you belong to any clubs o r organizations such as sikh groups, unions, fraternal or athletic groups, or [...] Recorded Patient Health Questionnaire-2 Score 0 03/24/2024 [facility] of Occupat ional Health - [...] Dermatology [address] [place] [address] Magui Juan, EXECUTIVE OFFICER SPECIAL WARFARE TEAM-PHARMACY RETAIL SUPPORT SPECIALIST [address] [place] [address] 05/02/2025 12:45 PM EDT Office Visit [facility] Neurology [address] [place] [address] Aj Lockwood MD [address] [facility] [address] [id number] documented as of this encounter Visit Diagnoses Not on filedocumented in this encounter Additional Health Concerns Assessment Noted Time PHQ-9 Depression Total Score: 5 07/09/20 23 2:09 PM EST A fall risk assessment has been complete d for the patient 12/08/2023 9:26 AM EDT documented as of this encounter Care Teams Woolen Suiting Shrinker Relationship Specialty Start Date End Date Charanjit Cehn MD PCP - General Family Medicine 02/11/24 Wendy Burden NP [address] [address] PCP - Lacy MARIE 01/10/25 Betty Singh NP Nurse Practitioner Family Medicine 02/11/24 11/20/24 Anne Hartley LPN [address] [place] [address] Licensed Practical Nurse Family Medicine 03/25/2405/13 Henok Hendrix, CYNTHIA [address] [place] [address] Family Medicine 05/24/24 03/07/25 documented as of this encounter
--- OUTSIDE RECORDS SUMMARY | 2025-03-20 10:46 | XMS_ITS | Clinical Summary ---
Author Organization [facility] Address [address] [place] [address] Care Team Providers Care Cylinder Block Mechanic Name Role Phone Unavailable Primary Care Provider [...]
--- OUTSIDE RECORDS SUMMARY | 2025-03-20 10:46 | XMS_ITS ---
Author Organization [facility] Address [address] [place] [address] Care Team Providers Care Animal Care Provider Name Role Phone Charanjit Chen MD Primary Care Provider [phone] Wendy Burden NP Unavailable [phone] Chronic Care Management (CCM) Status:Closed (Closed) Start date:11/26/2023 Enrollment date:12/02/2023 Enrollment reason:Referred by provider End date:03/07/2025 Close reason:Not eligible Overview Please assess for Care Management needs. 12/02/23, 9:28 AM - Flower Stokes LPN- Patient gives verbal consent to be enrolled in CCM Program and understands there could be a bill for this service. <March 07, 2025, 14:26 - Sarah Dugan RN> CCM Program closed r/t PCP leaving [facility]. Continued Care and Services Coordination
--- OUTSIDE RECORDS SUMMARY | 2025-03-20 10:46 | XMS_ITS | Encounter Summary ---
Author Organization [facility] Address [address] [place] [address] Care Team Providers Care Salon Leader Name Role Phone Shaikh NAHEED Horan Primary Care Provider [phone] Shaikh NAHEED Horan Unavailable [phone] Shaikh NAHEED Horan Primary Care Provider [phone] Flower Stokes ORNAMENTAL IRON WORKER APPRENTICE Unavailable Unavailable Charanjit Chen MD Primary Care Provider [phone] Betty Singh METAL TRIMMER Unavailable Anne Hartley ORNAMENTAL IRON WORKER APPRENTICE Unavailable Henok Hendrix MA Unavailable [phone] Wendy Burden METAL TRIMMER Unavailable [phone] Reason for Visit * Reason Comments Med Refill Encounter Details Date Type Department Care Team (Late st Contact Info) Description 08/06/2023 Refill [facility] [address] [place] [address] Shaikh Horan MD [address] [place] [address] Social History Tobacco Use Types Packs/Day Years [...] Dermatology [address] [place] [address] Magui Juan APRN-DRILLER AND REAMER [address] [place] [address] 05/02/2025 12:45 PM EDT Office Visit [facility] Neurology [address] [place] [address] Aj Lockwood MD 53 [facility] [address] [place] [address] documented as of this encounter Visit Diagnoses Not on filedocumented in this encounter Additional Health Concerns Assessment Noted Time PHQ-9 Depression Total Score: 5 07/09/20 23 2:09 PM EST documented as of this encounter Care Teams Salon Leader Relationship Specialty Start Date End Date Shaikh Horan MD PCP - General Internal Medicine 01/26/23 10/11/23 Shaikh Horan MD [address] [place] [address] PCP - Devoted 04/12/23 11/10/23 Shaikh Horan MD [address] [place] [address] PCP - General Internal Medicine 10/12/23 02/10/24 Charanjit Chen MD PCP - General Family Medicine 02/11/24 Wendy Burden NP [address] [place] [address] PCP - Lacy MARIE 01/10/25 Flower Stokes LPN Licensed Practical Nurse Family Medicine 11/26/23 Betty Singh NP Nurse Practitioner Family Medicine 02/11/24 11/20/24 Anne Hartley LPN [address] [place] [address] Licensed Practical Nurse Family Medicine 03/25/2405/13 Henok Hendrix, [place] [address] [place] [address] Family Medicine 05/24/24 03/07/25 documented as of this encounter
--- OUTSIDE RECORDS SUMMARY | 2025-03-20 10:46 | XMS_ITS | Encounter Summary ---
Author Organization [facility] Address [address] [place] [address] Care Team Providers Care Case Management Rn Name Role Phone Flower Stokes LPN Unavailable Unavailable Charanjit Chen MD Primary Care Provider [phone] Betty Singh BUSINESS ANALYST SALES OPERATIONS Unavailable Anne Hartley OYSTER PREPARER Unavailable Henok Hendrix MA Unavailable [phone] Wendy Burden NP Unavailable [phone] Encounter Details Date Type Department Care [...] How often do you attend chur or cheondoism services? Never 12/08/2023 Do you [...] Recorded Patient Health Questionnaire-2 Score 0 02/22/2024 [facility] of Occupat ional Health [...] care home (including now)? No 12/08/2023 Comments Unknown [...] [facility] [address] [facility] [address] [place] [address] Magui Juan, CEMENT KILN OPERATOR-TEAR DOWN MAN [address] [place] [address] 05/02/2025 12:45 PM EDT Office Visit [facility] [address] [place] [address] Aj Lockwood MD 53[address] [facility] [address] [id number] documented as of this encounter Procedures Procedure Name Priority Date/Time Associated Diagnosis Comments BRONCHOSCOPY W OR WO FLUORO 03/10/2024 7:34 AM EDT documented in this encounter Results * BRONCHOSCOPY W OR WO FLUORO (03/10/2024 7:34 AM EDT) Anatomical Region Laterality Modality Radiographic Meagan ging 03/10/2024 7:34 AM EDT Narrative 03/10/2024 7:36 AM EDT [place] 2000011 Fluoroscopy Report Signed Patient: BHUPENDRA MIRANDA MR#: [id number] : 1950 Acct:[id number] Age/Sex: 73 / F ADM Date: 03/09/24 Loc: [facility] Attending Dr: Leigh Thompson D.O. Ordering Physician: Leigh Thompson D.O. Date of Service: 03/09/24 Procedure(s): FL Bronchoscopy NO CHARGE Accession Number(s): [id number] cc: BETTY SINGH; Leigh Thompson D.O. [address] [address] Patient Name: BHUPENDRA MIRANDA MRN: [id number] date: 1950 Sex: F Assigned Patient Location: [facility] Current Patient Location: Accession/Order Number: [id number] Exam Date: 03/09/2024 12:45 Report Date: 03/10/2024 [...] Melton M.D. Signed By: 03/10/24 0736 DD/ TD/TT: Assistant Bookkeeper: Procedure Note Radiology, Radiologist, - 03/10/2024 [place] [address] Fluoroscopy Report Signed Patient: BHUPENDRA MIRANDA MMR#: [id number] : 1950cct:[id number] Age/Sex: 73 / FADM Date: 03/09/24 Loc: SURGOUT Attending Dr: Leigh Thompson D.O. Ordering Physician: Leigh Thompson D.O. Date of Service: 03/09/24 Procedure(s): FL Bronchoscopy NO CHARGE Accession Number(s): [id number] cc: BETTY SINGH; Leigh Thompson D.O. The [place] [id number] Patient Name: BHUPENDRA MIRANDA MRN: [id number] date: 1950 Sex: F Assigned Patient Location: [facility] Current Patient Location: Accession/Order Number: [id number] Exam Date: 03/09/2024 12:45 Report Date: 03/10/2024 [...] 07:34 Dictated By: Jeff Melton M.D. Signed By:03/10/24 0736 DD/ 0734 TD/TT: Assistant Bookkeeper: us Generic External Data Provider IMG XR PROCEDURES Final Result documented in this encounter Visit Diagnoses Not on filedocumented in this encounter Additional Health Concerns Assessment Noted Time PHQ-9 Depression Total Score: 5 07/09/20 23 2:09 PM EST A fall risk assessment has been complete d for the patient 12/08/2023 9:26 AM EDT documented as of this encounter Care Teams Case Management Rn Relationship Specialty Start Date End Date Charanjit Chen MD PCP - General Family Medicine 02/11/24 Wendy Burden NP [address] [facility] [place] [address] PCP - Lacy MARIE 01/10/25 Flower Stokes LPN Licensed Practical Nurse Family Medicine 11/26/23 Betty Singh NP Nurse Practitioner Family Medicine 02/11/24 11/20/24 Anne Hartley LPN [address] [place] [address] Licensed Practical Nurse Family Medicine 03/25/2405/13 Henok Hendrix, CYNTHIA [address] [place] [address] Family Medicine 05/24/24 03/07/25 documented as of this encounter
--- OUTSIDE RECORDS SUMMARY | 2025-03-20 10:46 | XMS_ITS | Encounter Summary ---
Author Organization [facility] Address [address] [place] [address] Care Team Providers Care Family And Marriage Counsellor Name Role Phone Shaikh NAHEED Horan Primary Care Provider [phone] Shaikh NAHEED Horan Unavailable [phone] Shaikh NAHEED Horan Primary Care Provider [phone] Flower Stokes DIMENSION SPECIFICATION INSPECTOR Unavailable Unavailable Charanjit Chen MD Primary Care Provider [phone] Betty Singh TOP ICER Unavailable Anne Hartley DIMENSION SPECIFICATION INSPECTOR Unavailable Henok Hendrix MA Unavailable [phone] Wendy Burden TOP ICER Unavailable [phone] Reason for Visit * Reason Comments Med Refill Encounter Details Date Type Department Care Team (Late st Contact Info) Description 07/02/2023 Refill [facility] [address] [place] [address] Shaikh Horan MD [address] [place] [address] Gastroesophageal reflux disease without esophagitis (Primary Dx); [...] Dermatology [address] [place] [address] Magui Juan APRN-STAKING ENGINEER [address] [place] [address] 05/02/2025 12:45 PM EDT Office Visit [facility] [address] [place] [address] Aj Lockwood MD 5360 [facility] [address] [address] documented as of this encounter Visit Diagnoses Diagnosis Gastroesophageal reflux disease without esophagitis- Primary Esophageal reflux Other polyneuropathy documented in this encounter Care Teams Family And Marriage Counsellor Relationship Specialty Start Date End Date Shaikh Horan MD PCP - General Internal Medicine 01/26/23 10/11/23 Shaikh Horan MD [address] [place] [address] PCP - Devoted 04/12/23 11/10/23 Shaikh Horan MD [address] [place] [address] PCP - General Internal Medicine 10/12/23 02/10/24 Charanjit Chen MD PCP - General Family Medicine 02/11/24 Wendy Burden NP [address] [place] [address] PCP - Lacy MARIE 01/10/25 Flower Stokes LPN Licensed Practical Nurse Family Medicine 11/26/23 Betty Singh NP Nurse Practitioner Family Medicine 02/11/24 11/20/24 Anne Hartley LPN [address] [place] [address] Licensed Practical Nurse Family Medicine 03/25/2405/13 Henok Hendrix MA [address] [place] [address] Family Medicine 05/24/24 03/07/25 documented as of this encounter
--- OUTSIDE RECORDS SUMMARY | 2025-03-20 10:46 | XMS_ITS | Encounter Summary ---
Author Organization [facility] Address [address] [place] [address] Care Team Providers Care Dynamite Packing Machine Feeder Name Role Phone Charanjit Chen MD Primary Care Provider [phone] Henok Hendrix MA Unavailable [phone] Wendy Burden NP Unavailable [phone] Encounter Details Date Type Department Care Team (Late st Contact Info) Description 02/23/2025 Abstract [facility] [address] [place] [address] Wendy Burden, CLOTILDE [address] [place] [address] Social History Tobacco Use Types Packs/Day Years [...] How often do you attend chur or yarsanism services? Never 12/08/2023 Do you belong to any clubs o r organizations such as hindu groups, unions, fraternal or athletic groups, or [...] Dermatology [address] [place] [address] Magui Juan, BOBBIN DRIER-ACCORDION TUNER [address] [place] [address] 05/02/2025 12:45 PM EDT Office Visit [facility] [address] [place] [address] Aj Lockwood MD [address] [facility] [address] [id number] documented as of this encounter Visit Diagnoses Not on filedocumented in this encounter Additional Health Concerns Assessment Noted Time PHQ-9 Depression Total Score: 10 025 11:00 AM EST A fall risk assessment has been complete d for the patient 12/08/2023 9:26 AM EDT documented as of this encounter Care Teams Dynamite Packing Machine Feeder Relationship Specialty Start Date End Date Charanjit Chen MD PCP - General Family Medicine 02/11/24 Wendy Burden NP [address] [place] [address] PCP - Lacy MARIE 01/10/25 Henok Hendrix MA [address] [place] [address] Family Medicine 05/24/24 03/07/25 documented as of this encounter
--- OUTSIDE RECORDS SUMMARY | 2025-03-20 10:46 | XMS_ITS | Encounter Summary ---
Author Organization [facility] Address [address] [place] [address] Care Team Providers Care Frame Gate Mortiser Operator Name Role Phone Charanjit Chen MD Primary Care Provider [phone] Betty Singh PAGEANT DIRECTOR Unavailable [phone] Henok Hendrix MA Unavailable [phone] Wendy Burden PAGEANT DIRECTOR Unavailable [phone] Encounter Details Date Type Department Care Team (Late st Contact Info) Description 06/14/2024 Orders Only [facility] [address] [place] [address] Shaikh Horan MD [address] [facility] [place] [address] Social History Tobacco Use Types Packs/Day Years [...] Recorded Patient Health Questionnaire-2 Score 0 03/24/2024 [facility] [place] of Occupat ional Health - Occupational Stress [...] a prison (including now)? No 12/08/2023 Comments No Sex [...] Dermatology [address] [place] [address] Magui Juan, VALUE ANALYSIS COORDINATOR-INTERACTIVE MEDIA MARKETING SPECIALIST [address] [place] [address] 05/02/2025 12:45 PM EDT Office Visit [facility] [address] [place] [address] Aj Lockwood MD [address] [facility] [address] [place] [address] documented as of this encounter Procedures Procedure [...] as of this encounter Care Teams Frame Gate Mortiser Operator Relationship Specialty Start Date End Date Charanjit Chen MD PCP - General Family Medicine 02/11/24 Wendy Burden NP [address] [facility] [place] [address] PCP - Lacy MARIE 01/10/25 Betty Singh NP Nurse Practitioner Family Medicine 02/11/24 11/20/24 Henok Hendrix MA [address] [place] [address] Family Medicine 05/24/24 03/07/25 documented as of this encounter
--- OUTSIDE RECORDS SUMMARY | 2025-03-20 10:46 | XMS_ITS | Encounter Summary ---
Author Organization [facility] Address [id number] [address] [place] [address] Care Team Providers Care Wood Getter Name Role Phone Betty Singh C JAVA DEVELOPER-AMERICAN HISTORY TEACHER Primary Care Pr ovider Encounter Details Date Type Department Care Team (Late st Contact Info) Description 06/13/2024 Orders Only [facility] [address] [place] [address] Transcribe, Orders Support User Pain (Primary Dx) Social History Tobacco Use Types Packs/Day Years Used Date Smoking Tobacco: Never Assessed [facility] Utilities Answer Date Recorded In [...] documented as of this encounter Care Teams Wood Getter Relationship Specialty Start Date End Date Betty Singh, C JAVA DEVELOPER-AMERICAN HISTORY TEACHER [address] [place] [address] PCP - General Nurse Practitioner 06/13/24 documented as of this encounter
--- OUTSIDE RECORDS SUMMARY | 2025-03-20 10:46 | XMS_ITS | Encounter Summary ---
Author Organization [facility] Address [address] [place] [address] Care Team Providers Care Division Chair Name Role Phone Flower Stokes LPN Unavailable Unavailable Charanjit Chen MD Primary Care Provider [phone] Betty Singh ADVERTISING JOB TITLES Unavailable [phone] Anne Hartley LITHOGRAPHY CONTACT WORKER Unavailable Henok Hendrix MA Unavailable [phone] Wendy Burden NP Unavailable [phone] Encounter Details Date Type Department Care Team (Late st Contact Info) Description 02/22/2024 Clinisync Result Encounter [facility] External Department Unsolicited Shaikh Horan MD [address] [place] [address] Social History Tobacco Use Types Packs/Day Years [...] How often do you attend chur or church services? Never 12/08/2023 Do you [...] Recorded Patient Health Questionnaire-2 Score 0 02/22/2024 [facility] [place] of Occupat ional Health - Occupational Stress [...] Dermatology [address] [place] [address] JayceMagui samuel, FEEDMOBILE DRIVER-FLYER MAKER [address] [facility] [address] [facility] [address] [place] [address] 05/02/2025 12:45 PM EDT Office Visit [facility] [address] [place] [address] Aj Lockwood MD 5103 [facility] [address] [place], [place] [phone] documented as of this encounter Procedures Procedure Name Priority Date/Time Associated Diagnosis Comments CA HOLTER MONITOR 2-7 DAYS 02/22/2024 1:27 PM EDT documented in this encounter Results * CA HOLTER MONITOR 2-7 DAYS (02/22/2024 1:27 PM EDT) Anatomical Region Laterality Modality Other 02/22/2024 1:27 PM EDT Narrative 02/23/2024 6:56 AM EDT [facility] [place] [id number] Cardiology Report Signed Patient: BHUPENDRA MIRANDA MR#: [id number] : 1950 Acct:[id number] Age/Sex: 73 / F ADM Date: 02/12/24 Loc: CARD Attending Dr: Shaikh Aung Davidson Ordering Physician: Shaikh Lety Horan Date of Service: 02/12/24 Procedure(s): CA holter montior 2-7 days Accession Number(s): [id number] cc: Shaikh Lety Horan [facility] Test Date: 2024-02-22 Pat Name: BHUPENDRA MIRANDA Department: Room: - Gender: Female Land Title Examiner: : 1950 Requested By: SHAIKH AUNG Order Number: [id number] Reading MD: KEEGAN COMER Interpretive Statements Predominant [...] 02/23/24 0656 02/23/24 0656 DD/ 1327 TD/TT: Biometrics Head: Procedure Note Radiology, Radiologist, MD - 02/23/2024 [place] [address] Cardiology Report Signed Patient: BHUPENDRA MIRANDA MMR#: [id number] : 1950cct:[id number] Age/Sex: 73 / FADM Date: 02/12/24 Loc: CARD Attending Dr: Shaikh Aung Davidson Ordering Physician: Shaikh Lety Horan Date of Service: 02/12/24 Procedure(s): CA holter montior 2-7 days Accession Number(s): [id number] cc: Shaikh Lety Horan [facility] Test Date: 2024-02-22 Pat Name: BHUPENDRA MIRANDA Department: Room: - Gender: Female Land Title Examiner: : 1950 Requested By: SHAIKH AUNG Order Number: [id number] Reading MD: KEEGAN COMER Interpretive Statements Predominant [...] By:02/23/24 0656 02/23/24 0656 DD/ 1327 TD/TT: Biometrics Head: us Shaikh Aung [facility] Final Result documented in this encounter Visit Diagnoses Not on filedocumented in this encounter Additional Health Concerns Assessment Noted Time PHQ-9 Depression Total Score: 5 07/09/20 23 2:09 PM EST A fall risk assessment has been complete d for the patient 12/08/2023 9:26 AM EDT documented as of this encounter Care Teams Division Chair Relationship Specialty Start Date End Date Charanjit Chen MD PCP - General Family Medicine 02/11/24 Wendy Burden NP [address] [facility] [place] [address] PCP - Lacy MARIE 01/10/25 Flower Stokes LPN Licensed Practical Nurse Family Medicine 11/26/23 Betty Singh NP Nurse Practitioner Family Medicine 02/11/24 11/20/24 Anne Hartley LPN [address] [place] [address] Licensed Practical Nurse Family Medicine 03/25/2405/13 Henok Hendrix MA [address] [place] [address] Family Medicine 05/24/24 03/07/25 documented as of this encounter
--- OUTSIDE RECORDS SUMMARY | 2025-03-20 10:46 | XMS_ITS | Encounter Summary ---
Author Organization [facility] Address [address] [place] [address] Care Team Providers Care Pst Manager Name Role Phone Shaikh NAHEED Horan Primary Care Provider Flower Stokes LICENSING DIRECTOR Unavailable Unavailable Charanjit Chen MD Primary Care Provider Betty Singh ORDNANCE ARTIFICER Unavailable Anne Hartley LICENSING DIRECTOR Unavailable Henok Hendrix MA Unavailable [phone] Wendy Burden ORDNANCE ARTIFICER Unavailable [phone] Encounter Details Date Type Department Care Team (Late st Contact Info) Description 12/30/2023 Abstract [facility] [address] [place] [address] Shaikh Horan MD [address] [place] [address] Social History Tobacco Use Types Packs/Day Years [...] How often do you attend chur or yarsani services? Never 12/08/2023 Do you belong to any clubs o r organizations such as mu-ism groups, unions, fraternal or athletic groups, or [...] Recorded Patient Health Questionnaire-2 Score 0 11/09/2023 [facility] of Occupat ional Health - [...] [address] [place] [address] Magui Juan APRN-SUPERVISOR [employer] [address] [place] [address] 05/02/2025 12:45 PM EDT Office Visit [facility] [address] [place] [address] Aj Lockwood MD [address] [facility] [address] [place], [place] [phone] documented as of this encounter Visit Diagnoses Not on filedocumented in this encounter Additional Health Concerns Assessment Noted Time PHQ-9 Depression Total Score: 5 07/09/20 23 2:09 PM EST A fall risk assessment has been complete d for the patient 12/08/2023 9:26 AM EDT documented as of this encounter Care Teams Pst Manager Relationship Specialty Start Date End Date Shaikh Horan MD [address] [place] [address] PCP - General Internal Medicine 10/12/23 02/10/24 Charanjit Chen MD PCP - General Family Medicine 02/11/24 Wendy Burden NP [address] [place] [address] PCP - Lacy MARIE 01/10/25 Flower Stokes LPN Licensed Practical Nurse Family Medicine 11/26/23 Betty Singh NP Nurse Practitioner Family Medicine 02/11/24 11/20/24 Anne Hartley LPN [address] [place] [address] Licensed Practical Nurse Family Medicine 03/25/2405/13 Henok Hendrix MA [address] [place] [address] Family Medicine 05/24/24 03/07/25 documented as of this encounter
--- OUTSIDE RECORDS SUMMARY | 2025-03-20 10:47 | XMS_ITS | Patient Health Record ---
Author Organization [facility] in [place] Address [address] [place] [address] Care Team Providers Care Vocational Rehabilitation Supervisor Name Role Phone Wendy Burden CNP Primary Care Provider Unavail able Eryn Lundberg Unavailable [phone] SamRoberto saunders Unavailable [phone] Allergies No Known Allergies Results Component Value Reference Range Notes FERRITIN (Not yet reviewed b y provider) Interpretation: Performing Lab: Notes/Report: [facility] , Ferritin 29.0 8.0-252.0 ng/mL Performing Lab: see note ML - [facility] LB IRON AND TIBC (Not yet revie wed by provider) Interpretation: Performing Lab: Notes/Report: [facility] , Iron 33.0 50.0-170.0 ug/dL Total Iron Binding Capacity 340.0 250.0-450.0 u g/dL Percent Iron Saturation 9.7 Performing Lab: see note ML - [facility] LB PROF 14(COMP METB) (Not yet reviewed by provider) Interpretation: Performing Lab: Notes/Report: [facility] , Sodium 143 136-145 mmol/L Potassium 4.1 3.5-5.1 mmol/L Chloride 105 98-107 mmol/L Carbon Dioxide 30.4 21.0-32.0 mmol/L Anion Gap 11.7 Glucose 107 74-106 mg/dL Blood Urea Nitrogen 20.0 7.0-18.0 mg/dL Creatinine 0.90 0.55-1.02 mg/dL Estimated GFR ( Rima >60 >=60 mL/mi n/1.73m 2 Estimated GFR (Non- Anu >60 >=60 mL/mi n/1.73m 2 BUN Creatinine Ratio 22.2 Calcium 9.2 8.5-10.1 mg/dL Bilirubin Total 0.4 0.2-1.0 mg/dL Aspartate Amino Transferase 11 15-37 U/L Alanine Aminotransferase 19 14-59 U/L Alkaline Phosphatase 108 46-116 U/L Total Protein 6.8 6.4-8.2 g/dL Albumin Level 3.2 3.4-5.0 g/dL Globulin 3.6 Albumin Globulin Ratio 0.9 Performing Lab: see note ML - [facility] LB CBC AUTO DIFF (Not yet revie wed by provider) Interpretation: Performing Lab: Notes/Report: [facility] , White Blood Count 10.7 4.0-11.0 10 3/uL Red Blood Count 4.83 4.20-5.40 10 6/uL Hemoglobin 13.6 12.0-16.0 g/dL Hematocrit 42.7 36.0-48.0 % Mean Corpuscular Volume 88.4 81.0-99.0 fL Mean Corpuscular Hemoglobin 28.2 26.7-34.0 pg Mean Corpuscular HGB Conc 31.9 29.9-35.2 g/dL Red Cell Distribution Width 15.9 11.0-15.0 % Platelet Count 375 150-450 10 3/uL Mean Platelet Volume 9.8 9.5-13.5 fL Neutrophils Percent Auto 62.4 43.0-75.0 % Lymphocytes Percent Auto 26.0 20.5-60.0 % Monocytes Percent Auto 9.3 1.7-12.0 % Eosinophils Percent Auto 1.3 0.9-7.0 % Basophils Percent Auto 0.7 0.2-2.0 % Immature Granulocytes Pct Auto 0.3 0.0-0.5 % Neutrophils Absolute Auto 6.7 1.4-6.5 10 3/uL Lymphocytes Absolute Auto 2.8 1.2-3.8 10 3/uL Monocytes Absolute Auto 1.0 0.3-0.8 10 3/uL Eosinophils Absolute Auto 0.1 0.0-0.7 10 3/uL Basophils Absolute Auto 0.1 0.0-0.1 10 3/uL Immature Granulocytes Abs Auto 0.03 0.00-0.03 10 3/uL Performing Lab: see note ML - [facility] Erythrocyte Sedimentation Ra te (Not yet reviewed by provider) Interpretation: Performing Lab: Notes/Report: [facility] , Erythrocyte Sedimentation Rate 78 <=30 mm/hr Performing Lab: see note ML - [facility] PROF 14(COMP METB) (Not yet reviewed by provider) Interpretation: Performing Lab: Notes/Report: [facility] , Sodium 141 136-145 mmol/L Potassium 3.7 3.5-5.1 mmol/L Chloride 103 98-107 mmol/L Carbon Dioxide 29.2 21.0-32.0 mmol/L Anion Gap 12.5 Glucose 97 74-106 mg/dL Blood Urea Nitrogen 15.0 7.0-18.0 mg/dL Creatinine 1.02 0.55-1.02 mg/dL Estimated GFR ( Rima >60 >=60 mL/mi n/1.73m 2 Estimated GFR (Non- Anu 53 >=60 mL/mi n/1.73m 2 BUN Creatinine Ratio 14.7 Calcium 9.4 8.5-10.1 mg/dL Bilirubin Total 0.3 0.2-1.0 mg/dL Aspartate Amino Transferase 12 15-37 U/L Alanine Aminotransferase 16 14-59 U/L Alkaline Phosphatase 133 46-116 U/L Total Protein 7.4 6.4-8.2 g/dL Albumin Level 3.5 3.4-5.0 g/dL Globulin 3.9 Albumin Globulin Ratio 0.9 Performing Lab: see note ML - [facility] CRP (Not yet reviewed by pro vider) Interpretation: Performing Lab: Notes/Report: [facility] , C Reactive Protein 1.02 <=0.50 mg/dL Performing Lab: see note ML - [facility] CBC AUTO DIFF (Not yet revie wed by provider) Interpretation: Performing Lab: Notes/Report: [facility] , White Blood Count 9.8 4.0-11.0 10 [...] 10 3/uL Performing Lab: see note - [facility] Reason For Referral Reason HÉCTOR nodule - non-shaheen gnostic bronchoscopy @ [facility] - please eval for interventional procedures Diagnosis 1 Multiple pulmonary n odules (R91.8) Referral Organization [facility] [place] Referring Provider First Name Roberto Referring Provider Last Name Prem Referring Provider Speciality Pulmonolog y Referred Provider Diana Gonzalez Referred Provider Specialty Pulmonary [facility] General Notes Christian Connelly 03/23 01:59:26 PM >Images pushed from [facility] via PACS to [facility]., Christian Connelly 03/23/2024 02:00:05 PM >Referral faxed [...] 03/29/2024 11:01:00 AM >Per Bernice SOUSA at [facility] 's office-the patient is scheduled for 04/28/2024 @ 1500. Patient is aware of the appt. 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) Active confirmed Problem Mental 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 (750802880) Cigarette nicotine dependence with nicotine-induced disorder (F17.219) Active confirmed Problem History of cerebrovascular accident (024891895) History of stroke (Z86.73) Active confirmed Problem Adenocarcinoma of left lung (02935743789079733 ) Adenocarcinoma of left lung (C34.92) Active confirmed Problem Aneurysm of infrarenal abdominal aorta (disorder) (125294943) Infrarenal abdominal aortic aneurysm, without rupture (I71.43) Active confirmed Vital Signs Heart Rate 114 /min 11/30/2024 Temperature 96.4 degrees Fahrenheit 11/30/2024 Respiratory Rate 18 /min 11/30/2024 Blood pressure diastolic 87 mm Hg 11/30/2024 Oximetry 91 % 11/30/2024 Height 63 in 11/30/2024 Blood pressure systolic 148 mm Hg 11/30/2024 Weight 149.2 lbs 11/30/2024 BMI 26.43 kg/m2 11/30/2024 Encounters Encounter Location Date Provider Diagnosis [facility] [address] [place] [address] 03/23/2024 Roberto Samsa Centrilobular emphys rodney J43.2 ; Multiple pulmonary nodules R91.8 ; Cigarette nicotine dependence in remission F17.211 ; Mass of right parotid gland K11.8 ; Infrarenal abdominal aortic aneurysm, without rupture I71.43 ; Abnormal computed tomography of large intestine R93.3 ; History of stroke Z86.73 and senior care (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 steroids Z79.51 [facility] [address] [place] [address] 11/30/2024 Roberto Samsa Centrilobular emphys rodney J43.2 ; Adenocarcinoma of left lung C34.92 ; Cigarette nicotine dependence with nicotine-induced disorder F17.219 ; History of stroke Z86.73 and senior care (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 steroids Z79.51 [facility] [place] [facility] [address] [place] [address] 06/01/2024 Roberto Samsa Centrilobular emphys rodney J43.2 ; Adenocarcinoma of left lung C34.92 ; Hypoxemia R09.02 ; Cigarette nicotine dependence in remission F17.211 ; Mass of right parotid gland K11.8 ; Abnormal computed tomography of large intestine R93.3 ; History of stroke Z86.73 and 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 (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 steroids Z79.51 [facility] [address] [facility] [place] [address] 04/05/2024 Eryn [facility] [address] [place] [facility] [place] [address] 05/03/2024 Eryn [facility] [address] [facility] [place] [address] 05/31/2024 Eryn [facility] [address] [facility] [place] [address] 07/19/2024 Eryn [facility] Oncology [address] [place] [address], [place] [address] 08/[facility] [address] [facility] [place] [address] 10/04/2024 Eryn [facility] [address] [place] [facility] [place] [address] [facility] [place] [address] [facility] [place] [address] 04/05/2024 [facility] [place] [address] [facility] [place] [address] 05/18/2024 [facility] [place] [address] [facility] [place] [address] 03/07/2025 [facility] Assessments Encounter Date Diagnosis (ICD Code) Assessment Notes Treatment Notes Treatment Clinical Notes Section Notes 03/23/2024 Centrilobular emphysema (ICD-10 - J43.2) Prior treatments: Breztri > Trelegy Continue Breztri. Will eventually require repeat PFT. 06/01/2024 Centrilobular emphysema (ICD-10 - J43.2) Prior treatments: Breztri > Trelegy Patient is doing okay at this time on Breztri. Albuterol uses about once a week. Previously consider repeating PFT, but as she does not appear to be a candidate for lobectomy/pneumone ctomy, will hold off on repeating a PFT at this current time. 06/01/2024 Adenocarcinoma of left lung (ICD-10 - C34.92) HÉCTOR biopsy positive for adenocarcinoma. She is already established with Dr. Lundberg. Patient is going to have radiation therapy to the area - she voiced she is not particularly pleased she needs to go to [place] for radiation treatments. Explained to her that [...] avid at SUV 21.2. [place] [facility] [place] about [place] a tissue [...] I would refer her to thoracic surgery. 03/23/2024 Cigarette nicotine dependence in remission (ICD-10 [...] issues are better directed to neurology. 11/30/2024 senior care (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 steroids (ICD-10 [...] CT within 3-6 months. Deferred to PCP/oncology. 03/23/2024 Infrarenal abdominal aortic aneurysm, without rupture [...] someone to her visits to help her understand/remembe r the conversation. 03/23/2024 Abnormal computed tomography of large intestine (ICD-10 - R93.3) Incidental PET positive SUV 22.4 region of the ascending colon. Etiology is unclear. Last colonoscopy was over 10 years ago. Patient states that she has an appointment to see a healthcare provider regarding a colonoscopy. Unclear if there is any relationship between this and the lung nodule. 03/23/2024 History of stroke (ICD-10 - Z86.73) Patient is bringing someone to her visits to help her understand/remembe r the conversation. 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 03/23/2024 senior care (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 steroids (ICD-10 - Z79.51) .Patient was counseled to rinse & gargle with water after inhaled corticosteroid use. 06/01/2024 Other Increase in size of the AAA from 3.1cm from 11/11/2022 to 3.6cm on 01/25/2024. Deferring to PCP regarding continued monitoring. Previously stable 0.4/0.6cm HÉCTOR nodule noted on chest CT 11/11/2022 is now 2.2cm on LDCT 12/27/2023, with PET 01/25/2024 identifying it as FDG avid at SUV 21.2. [place] [facility] [place] not confident about obtaining a tissue [...] for Screening* 024 CBC AUTO DIFF 10/04/2024 CBC AUTO DIFF 12/14/2024 CRP 10/04/2024 FERRITIN 10/04/2024 IRON AND TIBC 10/04/2024 PROF 14(COMP METB) 10/04/2024 PROF 14(COMP METB) 12/14/2024 Erythrocyte Sedimentation Rate Next Appt Details Provider Name:Eryn Lundberg , 06/27/2025 11:00:00 AM, [address] [place], [address], Insurance Providers Payer Name Payer Address Payer Phone Subscriber Number Group Number Insured Name Patient Relationship to Insured Coverage Start Date Coverage End Date [employer] ADV PLAN [address] [place] [phone] [id number] [id number] Mitchell Self - patient is the insured Medical [...] ine-induced disorder F17.219 Surgical History Surgery Date(Month/Year) [facility] 05/18/2024 Bronchoscopy 03/09/2024 tubal ligation rotator cuff tear repair-bilateral Cholecystectomy hysterectomy Hospitalization History Reason Date(Month/Year) CVA-TB 10/04/2024
--- OUTSIDE RECORDS SUMMARY | 2025-03-20 10:47 | XMS_ITS | Clinical Summary ---
Author Organization [facility] Address [id number] [place] [address] Care Team Providers Care Dice Person Name Role Phone Singh, Betty Jonathan GROUP UNDERWRITER-RAGS LABORER Primary Care Pr ovider Allergies No known [...] 12/19/2024 Telephone [facility], A Department of [facility] [address] [facility] [address] [place] [address] Brenna Morel referral from Last 3 Months Immunizations Immunization Administration Dates Next Due Pneumococcal Conjugate 13-Valent 07/03/2022 Pneumococcal Conjugate 20-valent 07/09/2022 Social History Tobacco Use Types Packs/Day Years Used Date Smoking Tobacco: Former Cigarettes Smokeless Tobacco: Never Tobacco Cessation:Counseling Given: Not Answered Alcohol Use Standard Drinks/Week Comments Not Currently 0 (1 standard drink = 0.6 oz pur e alcohol) [facility] Utilities Answer Date Recorded In the [...] 1:10 PM 06/17/2024 7:37 PM Care Teams Dice Person Relationship Specialty Start Date End Date Betty Singh, GROUP UNDERWRITER-RAGS LABORER [address] [place] [address] PCP - General Nurse Practitioner 06/13/24
--- OUTSIDE RECORDS SUMMARY | 2025-03-20 10:47 | XMS_ITS | Encounter Summary ---
Author Organization [facility] Address [address] [place] [address] Care Team Providers Care Actuarial Internship Name Role Phone Shaikh NAHEED Horan Primary Care Provider [phone] Shaikh NAHEED Horan Unavailable [phone] Shaikh NAHEED Horan Primary Care Provider [phone] [place] SHOW DOG TRAINER Unavailable Unavailable Charanjit Chen MD Primary Care Provider [phone] Betty Singh PHARMACY DATA ANALYST Unavailable Anne Hartley SHOW DOG TRAINER Unavailable Henok Hendrix MA Unavailable [phone] Wendy Burden PHARMACY DATA ANALYST Unavailable [phone] Reason for Visit * Reason Comments Med Refill Encounter Details Date Type Department Care Team (Late st Contact Info) Description 08/03/2023 Refill [facility] [address] [place] [address] Shaikh Horan MD [address] [place] [address] Primary hypertension (Primary Dx); Gastroesophageal reflux disease [...] Dermatology [address] [place] [address] Magui Juan APRN-CARTON AND CAN SUPPLY SUPERVISOR [address] [place] [address] 05/02/2025 12:45 PM EDT Office Visit [facility] Neurology [address] [place] [address] Aj Lockwood MD [address] [facility] [address] [place], [place] [id number] documented as of this encounter Visit Diagnoses Diagnosis Primary hypertension- Primary Unspecified essential hypertension Gastroesophageal reflux disease without esophagitis Esophageal reflux Other polyneuropathy documented in this encounter Additional Health Concerns Assessment Noted Time PHQ-9 Depression Total Score: 5 07/09/20 23 2:09 PM EST documented as of this encounter Care Teams Actuarial Internship Relationship Specialty Start Date End Date Shaikh Horan MD PCP - General Internal Medicine 01/26/23 10/11/23 Shaikh Horan MD [address] [place] [address] PCP - Devoted 04/12/23 11/10/23 Shaikh Horan MD [address] [place] [address] PCP - General Internal Medicine 10/12/23 02/10/24 Charanjit Chen MD PCP - General Family Medicine 02/11/24 Wendy Burden NP [address] [place] [address] PCP - [place] 01/10/25 [place] LPN Licensed Practical Nurse Family Medicine 11/26/23 Betty Singh NP Nurse Practitioner Family Medicine 02/11/24 11/20/24 Anne Hartley LPN [address] [place], [place] [address] Licensed Practical Nurse Family Medicine 03/25/2405/13 Henok Hendrix MA [address] [place] [address] Family Medicine 05/24/24 03/07/25 documented as of this encounter
--- OUTSIDE RECORDS SUMMARY | 2025-03-20 10:47 | XMS_ITS ---
Author Organization [facility] Address [address] [place] [address] Care Team Providers Care Cable Mock Up Assembler Name Role Phone Charanjit Chen MD Primary Care Provider [phone] Wendy Burden NP Unavailable [phone] 30 Day Monitoring Program Status:Closed (Closed) Start date:02/15/2025 Enrollment date:02/15/2025 End date:03/07/2025 Close reason:Not eligible Overview <March 07, 2025, 14:30 - Henok Hendrix MA> 30 day Program closed r/t PCP leaving [facility] Continued Care and Services Coordination
--- OUTSIDE RECORDS SUMMARY | 2025-03-20 10:47 | XMS_ITS | Encounter Summary ---
Author Organization [facility] Address [id number] [address] [place] [address] Care Team Providers Care Program Or Project Administrator Name Role Phone Singh, Betty Jonathan BRAKE SPECIALIST-DEPUTY K 9 Primary Care Pr ovider Encounter Details Date Type Department Care Team (Late st Contact Info) Description 06/15/2024 Orders Only [facility] [address] [place] [address] Transcribe, Orders Support User Pain (Primary Dx) Social History Tobacco Use Types Packs/Day Years Used Date Smoking Tobacco: Former Cigarettes Smokeless Tobacco: Never Alcohol Use Standard Drinks/Week Comments Not Currently 0 (1 standard drink = 0.6 oz pur e alcohol) [facility] Utilities Answer Date Recorded In the past 12 months has [employer], oil, or water [email or web address] threatened to shut off services in your [...] documented as of this encounter Care Teams Program Or Project Administrator Relationship Specialty Start Date End Date Betty Singh, BRAKE SPECIALIST-DEPUTY K [address] [place] [address] PCP - General Nurse Practitioner 06/13/24 documented as of this encounter
--- OUTSIDE RECORDS SUMMARY | 2025-03-20 10:47 | XMS_ITS | Encounter Summary ---
Author Organization [facility] Address [address] [place] [address] Care Team Providers Care Bootmaker Name Role Phone Charanjit Chen MD Primary Care Provider [phone] Henok Hendrix MA Unavailable [phone] Wendy Burden NP Unavailable [phone] Encounter Details Date Type Department Care Team (Latest Contact Info) Description 03/07/2025 Travel Social History Tobacco Use Types Packs/Day [...] often do you attend chur ch or temple services? Never 12/08/2023 Do you belong to [...] Questionnaire-2 Score 1 08/02/2024 [facility]ational Stress Questionnaire Answer Date [...] Dermatology [address] [place] [address] Magui Juan, ELECTRONIC DEVELOPMENT TECHNICIAN-MEDICAL SCREENER [address] [place] [address] 05/02/2025 12:45 PM EDT Office Visit [facility] [place] [facility] Neurology [address] [place] [address] Aj Lockwood MD [address] [facility] [address] [place] [address] documented as of this encounter Visit Diagnoses Not on filedocumented in this encounter Additional Health Concerns Assessment Noted Time PHQ-9 Depression Total Score: 10 025 11:00 AM EST A fall risk assessment has been complete d for the patient 12/08/2023 9:26 AM EDT documented as of this encounter Care Teams Bootmaker Relationship Specialty Start Date End Date Charanjit Chen MD PCP - General Family Medicine 02/11/24 Wendy Burden NP [address] [place] [address] PCP - Lacy MARIE 01/10/25 Henok Hendrix, [place] [address] [place] [address] Family Medicine 05/24/24 03/07/25 documented as of this encounter
--- OUTSIDE RECORDS SUMMARY | 2025-03-20 10:47 | XMS_ITS | Encounter Summary ---
Author Organization [facility] Address [address] [place] [address] Care Team Providers Care Gang Worker Name Role Phone Charanjit Chen MD Primary Care Provider [phone] Henok Hendrix MA Unavailable [phone] Wendy Burden NP Unavailable [phone] Reason for Referral * Consultation (Routine) - Closed Specialty Diagnoses / Procedures Referred By Contmaeve t Referred To Contact Dermatology Diagnoses Rash Procedures UT OFFICE/OUTPATIENT NEW HIGH MDM 60 MINUTES Wendy Burden NP Phone: tel: fax: Sandi Coronado MD [address] [address] Phone: tel: fax: Referral ID Status Reason Start Date Expiration Date V isits Requested Visits Authorized [id number] Closed Specialty Services Required 02/09/2025 08/08/2025 1 1 Encounter Details Date Type Department Care Team (Late st Contact Info) Description 02/09/2025 Orders Only [facility] [address] [place] [address] Wendy Burden NP [address] [place] [address] Sher (Primary Dx) Social History Tobacco Use [...] any clubs o r organizations such as shinto groups, unions, fraternal or athletic groups, or [...] Recorded Patient Health Questionnaire-2 Score 1 08/02/2024 [facility] - Occupational Stress Questionnaire Answer Date [...] money to buy more. Never true 12/08/19 Within the past 12 months, t he [...] [address] [place] [address] Magui Juan APRN-SIX PACK LOADER OPERATOR [address] [place] [address] 05/02/2025 12:45 PM EDT Office Visit [facility] [address] [place] [address] Aj Lockwood MD [address] [facility] [address] [place], [place] [phone] Scheduled Referrals Name Type Priority Associated Diagnoses [...] documented as of this encounter Care Teams Gang Worker Relationship Specialty Start Date End Date Charanjit Chen MD PCP - General Family Medicine 02/11/24 Wendy Burden NP [address] [place] [address] PCP - Lacy MARIE 01/10/25 Henok Hendrix MA [address] [place] [address] Family Medicine 05/24/24 03/07/25 documented as of this encounter
--- OUTSIDE RECORDS SUMMARY | 2025-03-20 10:47 | XMS_ITS | Encounter Summary ---
Author Organization [facility] Address [address] [place] [address] Care Team Providers Care Trench Pipe Layer Helper Name Role Phone Charanjit Chen MD Primary Care Provider Henok Hendrix MA Unavailable [phone] Wendy Burden NP Unavailable [phone] Encounter Details Date Type Department Care Team (Late st Contact Info) Description 03/06/2025 Patient Outreach [facility] [address] [place] [address] Henok Hendrix MA [address] [place] [address] Social History Tobacco Use Types Packs/Day Years [...] Recorded Patient Health Questionnaire-2 Score 1 08/02/2024 [facility] - Occupational [...] Progress Notes * Henok Hendrix MA - 03/06/2025 11:23 AM EDT Unable to reach pt for weekly outreach. Phone just rings and goes silent, no VM available. Will tryto contact pt again next week. Senior Director Marketing did call Alejandra at [facility] and pt did attent Carotid US appt but looks like she was a no show for ECHO today as it's still under pre-reg status. documented in this encounter Plan of Treatment Upcoming Encounters Date Type Department Care Team (Late st Contact Info) Description 03/23/2025 9:05 AM EDT Office Visit [facility] [address] [place] [address] Magui Juan, MEDICAL TECHNICAL WRITER-SWIMMING TEACHER [address] [place] [address] 05/02/2025 12:45 PM EDT Office Visit [facility] [address] [place] [phone] Aj Lockwood MD [address] 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 Primary hypertension Unspecified essential hypertension documented in this encounter Additional Health Concerns Assessment Noted Time PHQ-9 Depression Total Score: 10 025 11:00 AM EST A fall risk assessment has been complete d for the patient 12/08/2023 9:26 AM EDT documented as of this encounter Care Teams Trench Pipe Layer Helper Relationship Specialty Start Date End Date Charanjit Chen MD PCP - General Family Medicine 02/11/24 Wendy Burden NP [address] [place] [place] [address] PCP - Lacy MARIE 01/10/25 Henok Hendrix MA [address] [place] [address] Family Medicine 05/24/24 03/07/25 documented as of this encounter
--- OUTSIDE RECORDS SUMMARY | 2025-03-20 10:47 | XMS_ITS | Encounter Summary ---
Author Organization [facility] Address [address] [place] [address] Care Team Providers Care Calculating Machine Mechanic Name Role Phone Charanjit Chen MD Primary Care Provider Henok Hendrix MA Unavailable [phone] Wendy Burden NP Unavailable [phone] Encounter Details Date Type Department Care Team (Late st Contact Info) Description 01/16/2025 External Result Encounter [facility] External Department Unsolicited Tammie Shah, RECORD CUTTER [address] [place] [address] Social History Tobacco Use Types Packs/Day Years [...] How often do you attend chur or adventist services? Never 12/08/2023 Do you belong to [...] 1 08/02/2024 [facility] - Occupational [...] Dermatology [address] [place] [address] Magui Juan, FOREST PRODUCTS TEACHER-MIS MANAGER [address] [place] [address] 05/02/2025 12:45 PM EDT Office Visit [facility] [address] [place] [address] Aj Lockwood MD [address] [facility] [address] [place], [place] [phone] documented as of this encounter Procedures Procedure [...] Berger M.D. 01/16/2025 2:45 PM Dictation Location: [facility]--16 Transcribed By: [facility] 01/16/25 1445 Dictated By: Adam Berger DO 01/16/25 1439 Signed By: <Electronically signed by Adam Berger DO in OV> 01/16/25 1445 Narrative 01/16/2025 2:47 PM EDT [facility] Main [place] [address] [place] [address] CT Scan Report Signed Patient: Mirta Mitchell MR#: [id number] : 1950 Acct:[id number] Age/Sex: 74 / F ADM Date: 01/16/25 Loc: Room: Type: [facility] Attending Dr: Judit Martini MD Copies [...] Procedure Note Radiology, Radiologist, MD - 01/16/2025 [facility] Main [place] [address] [place] [address] CT Scan Report Signed Patient: Mirta Mitchell MMR#: [id number] : 3Acct:[id number] Age/Sex: 74 / FADM Date: 01/16/25 Loc: Room:Type: [facility] Attending Dr: Judit Martini MD Copies [...] Berger M.D. 01/16/2025 2:45 PM Dictation Location: [facility]--16 Transcribed By: [facility] 01/16/25 1445 Dictated By: Adam Berger DO 01/16/25 1439 Signed By: <Electronically signed by Adam Berger DO in OV> 01/16/25 1445 Tammie Shah RECORD CUTTER IMG CT PROCEDURES Final Resul t documented in this encounter Visit Diagnoses Not on filedocumented in this encounter Additional Health Concerns Assessment Noted Time PHQ-9 Depression Total Score: 10 025 11:00 AM EST A fall risk assessment has been complete d for the patient 12/08/2023 9:26 AM EDT documented as of this encounter Care Teams Calculating Machine Mechanic Relationship Specialty Start Date End Date Charanjit Chen MD PCP - General Family Medicine 02/11/24 Wendy Burden NP [address] [place] [address] PCP - Lacy MARIE 01/10/25 Henok Hendrix MA [address] [place] [address] Family Medicine 05/24/24 03/07/25 documented as of this encounter
--- OUTSIDE RECORDS SUMMARY | 2025-03-20 10:47 | XMS_ITS | Encounter Summary ---
Author Organization [facility] Address [address] [place] [address] Care Team Providers Care Sales Office Coordinator Name Role Phone Charanjit Chen MD Primary Care Provider [phone] Betty Singh CUSTOMER SOLUTIONS COORDINATOR Unavailable Henok Hendrix MA Unavailable [phone] Wendy Burden CUSTOMER SOLUTIONS COORDINATOR Unavailable [phone] Encounter Details Date Type Department Care Team (Late st Contact Info) Description 10/05/2024 Orders Only [facility] [address] [place] [address] Charanjit Chen MD [address] [facility] [place] [address] Social History Tobacco Use Types Packs/Day Years [...] Recorded Patient Health Questionnaire-2 Score 1 08/02/2024 [facility] [place] [facility] - Occupational Stress [...] Dermatology [address] [place] [address] Magui Juan, BYPRODUCTS EXTRACTOR-TOUR GUIDE [address] [place] [address] 05/02/2025 12:45 PM EDT Office Visit [facility] [address] [place] [address] Aj Lockwood MD [address] [facility] [address] [place] [address] documented as of this encounter Procedures Procedure [...] documented as of this encounter Care Teams Sales Office Coordinator Relationship Specialty Start Date End Date Charanjit Chen MD PCP - General Family Medicine 02/11/24 Wendy Burden NP [address] [place] [address] PCP - Lacy MARIE 01/10/25 Betty Singh NP Nurse Practitioner Family Medicine 02/11/24 11/20/24 Henok Hendrix MA [address] [place] [address] Family Medicine 05/24/24 03/07/25 documented as of this encounter
--- OUTSIDE RECORDS SUMMARY | 2025-03-20 10:47 | XMS_ITS | Encounter Summary ---
Author Organization [facility] Address [id number] [address] [place] [address] Care Team Providers Care College Physics Instructor Name Role Phone Betty Singh RESIDENTIAL RECYCLE DRIVER-UNIT ASSEMBLER Primary Care Pr ovider Encounter Details Date Type Department Care Team (Late st Contact Info) Description 06/14/2024 Orders Only [facility] [address] [place] [phone] Transcribe, Orders Support User Pain (Primary Dx) Social History Tobacco Use Types Packs/Day Years Used Date Smoking Tobacco: Never Assessed [facility] Utilities Answer Date Recorded In the past [...] documented as of this encounter Care Teams College Physics Instructor Relationship Specialty Start Date End Date Betty Singh, RESIDENTIAL RECYCLE DRIVER-UNIT ASSEMBLER [address] [place] [address] PCP - General Nurse Practitioner 06/13/24 documented as of this encounter
--- OUTSIDE RECORDS SUMMARY | 2025-03-20 10:47 | XMS_ITS | Encounter Summary ---
Author Organization [facility] Address [address] [place] [address] Care Team Providers Care Appetizer Packer Name Role Phone Charanjit Chen MD Primary Care Provider Henok Hendrix MA Unavailable [phone] Wendy Burden NP Unavailable [phone] Encounter Details Date Type Department Care Team (Late st Contact Info) Description 03/07/2025 Bamboo flowsheet [facility] [address] [place] [address] Aj Lockwood MD [address] [facility] [address] [address] Social History Tobacco Use Types Packs/Day Years [...] Recorded Patient Health Questionnaire-2 Score 1 08/02/2024 [facility] - Occupational [...] Dermatology [address] [place] [address] Magui Juan, IRON WORKER APPRENTICE-PET TRAINER [address] [place] [address] 05/02/2025 12:45 PM EDT Office Visit [facility] [address] [place] [address] Aj Lockwood MD [address] [facility] [address] [address] documented as of this encounter Visit Diagnoses Not on filedocumented in this encounter Additional Health Concerns Assessment Noted Time PHQ-9 Depression Total Score: 10 025 11:00 AM EST A fall risk assessment has been complete d for the patient 12/08/2023 9:26 AM EDT documented as of this encounter Care Teams Appetizer Packer Relationship Specialty Start Date End Date Charanjit Chen MD PCP - General Family Medicine 02/11/24 Wendy Burden NP [address] [facility] [place] [address] PCP - Lacy MARIE 01/10/25 Henok Hendrix MA [address] [place] [address] Family Medicine 05/24/24 03/07/25 documented as of this encounter
--- OUTSIDE RECORDS SUMMARY | 2025-03-20 10:47 | XMS_ITS | Encounter Summary ---
Author Organization [facility] Address [id number] [address] [place] [address] Care Team Providers Care Nuclear Fuels Reclamation Engineer Name Role Phone Singh, Betty Jonathan INVESTIGATIVE AGENT-POLE INCISOR OPERATOR Primary Care Pr ovider Encounter Details Date Type Department Care Team (Late st Contact Info) Description 10/05/2024 Orders Only [facility] [address] [place] [phone] Transcribe, Orders Support User Pain (Primary Dx) Social History Tobacco Use Types Packs/Day Years Used Date Smoking Tobacco: Former Cigarettes Smokeless Tobacco: Never Alcohol Use Standard Drinks/Week Comments Not Currently 0 (1 standard drink = 0.6 oz pur e alcohol) [facility] Utilities Answer Date Recorded In the past 12 months has [employer], oil, or water [employer] threatened to shut off services in your [...] pain documented in this encounter Care Teams Nuclear Fuels Reclamation Engineer Relationship Specialty Start Date End Date Betty Singh, INVESTIGATIVE AGENT-POLE INCISOR OPERATOR [address] [place] [address] PCP - General Nurse Practitioner 06/13/24 documented as of this encounter
--- OUTSIDE RECORDS SUMMARY | 2025-03-20 10:48 | XMS_ITS | Encounter Summary ---
Author Organization [facility] Address [id number] [address] [place] [address] Care Team Providers Care Bat Lathe Operator Name Role Phone Singh, Betty Jonathan FRONT MAKER LOCKSTITCH-DELIVERY CLERK Primary Care Pr ovider Encounter Details Date Type Department Care Team (Late st Contact Info) Description 10/07/2024 Orders Only [facility] [address] [place] [phone] Transcribe, Orders Support User Pain (Primary Dx) Social History Tobacco Use Types Packs/Day Years Used Date Smoking Tobacco: Former Cigarettes Smokeless Tobacco: Never Alcohol Use Standard Drinks/Week Comments Not Currently 0 (1 standard drink = 0.6 oz pur e alcohol) [facility] Utilities Answer Date Recorded In the past 12 months has [employer], oil, or water [employer] threatened to shut off services in your [...] pain documented in this encounter Care Teams Bat Lathe Operator Relationship Specialty Start Date End Date Betty Singh, FRONT MAKER LOCKSTITCH-DELIVERY CLERK [address] [place] [address] PCP - General Nurse Practitioner 06/13/24 documented as of this encounter
--- OUTSIDE RECORDS SUMMARY | 2025-03-20 10:55 | XMS_ITS | CCD ---
Author Organization [facility] Inform ion Partnership [facility] Care Team Providers Care Latin Dancer Name Role Phone FAWWAD, HURTADO H Admitting [...] Shaikh Horan MD Unavailable MD Aung [facility] Primary Care Provider [phone] MD Emmett Bhakta Emergency Provider SANDRA BautistaC Cherelle Mckay Attending Provider DO Leigh Thompson Attending Provider [phone] MD Mikhail Moon Attending Provider [phone] MD Aung [facility] Primary Care Provider [phone] April FARFAN, Charanjit Primary Care Provider Samantha DEVELOPMENT GEOLOGIST, Chris Unavailable Naeem GENERAL OPERATIONS AGENT, Anne Unavailable Unavailable Naeem GENERAL OPERATIONS AGENT, Anne Unavailable Unavailable Henok Hendrix MA Unavailable Unavailable Kike GENERAL OPERATIONS AGENT, Ardana Unavailable Unavailable Kike GENERAL OPERATIONS AGENT, Ardana Unavailable Unavailable Samantha ELECTRICIAN APPRENTICE-COTTON TIER, Chris Castillo Primary Care Pr ovider Aung FARFAN, Hurtado Primary Care Provider Nitza Russell MD Attending Provider Mikhail Moon MD Referring Provider Samantha MABRY, Chris Unavailable Red FARFAN, Mikhail Referring Provider [phone] Samantha DEVELOPMENT GEOLOGIST-CChris Primary Care Provid er Judit Martini MD Attending Provider Sulema Cordero PA-C Attending Provider [phone] Mikhail Moon MD Referring Provider [phone] Samantha MABRY-CChris Primary Care Provid er Judit Martini MD Attending Provider Red FARFAN, Mikhail Referring Provider Samantha DEVELOPMENT GEOLOGIST-C, Chris N Primary Care [facility] er Judit Martini MD Attending Provider OMBALLI, MOHAMED Referring Unavailable OMBALLI, MOHAMED Referring Unavailable OMBALLI, MOHAMED Referring Unavailable OMBALLI, MOHAMED Attending Unavailable OMBALLI, MOHAMED Referring Unavailable OMBALLI, MOHAMED Attending Unavailable NURIA, ERYN Referring Unavailable NAWRAS, ALI Attending Unavailable NAWRAS, ALI Admitting Unavailable Singh ELECTRICIAN APPRENTICE-COTTON TIER, [facility] Primary Care Pr ovider Simeon MARIE, Saebel Unavailable Hipolito Shah APRN Attending Provider NON STAFF Primary Care Provider UnavailWendy Hassan Attending Provider Jacquelyn FARFAN, Nigel Cespedes Attending Provider [phone] Adam Keller MD Attending Provider WENDY BURDEN Primary Care Physician NON STAFF Primary Care Provider Unavailabl e Hipolito Shah APRN Attending Provider Yaneth Naranjo Attending Provider Unavailable Mikhail Moon MD Referring Provider Samantha DEVELOPMENT GEOLOGIST-C, Chris Castillo Primary Care [facility] er Judit Martini MD Attending Provider Isabella Brown MD Emergency Provider Matteo Zaragoza MD Admit Provider Matteo Zaragoza MD Attending Provider NON STAFF Primary Care Provider UnavailMatteo Hernandez MD Other Provider Kenn Ignacio DO Attending Provider Kenn Ignacio DO Other Provider Wendy Burden NP Unavailable WENDY BURDEN Referring Unavailable Arden De Leon Attending Unavailable EPID, HURTADO Referring Unavailable Arden De Leon Attending Unavailable Arden De Leon Attending Unavailable Arden De Leon Admitting Unavailable Arden De Leon Referring Unavailable Henok Hendrix MA Unavailable CHRIS SINGH Attending UnavailROMEL Vidal Attending Unavailable ERYN LUNDBERG Referring Unavailable KIANNA ROMAN Attending Unavailable WENDY BURDEN Attending Unavailable WENDY BURDEN Attending Unavailable WENDY BURDEN Attending Unavailable CHRIS SINGH Attending UnavailJAVIER Arreola Attending Unavailable ASAAD, IMAD Referring Unavailable CHRIS SINGH Attending UnavailJAVIER Arreola Attending Unavailable NEYDA LOCKWOOD Attending Unavailable SULEMA JUAN Attending Unavailable WENDY BURDEN Attending Unavailable NEYDA LOCKWOOD Attending Unavailable Chris Singh Primary Care Unavaila ble Asaad, Imad Referring Unavailable Anjel Martiniena R Admitting Unavailable Lianet Norericena R Attending Unavailable Jamin Covarrubias Attending Unavailable Matteo Zaragoza Admitting Unavailab Kenn Dominguez Consulting Unavailab Wendy Coleman Primary Care [facility] H[facility]ado Primary Care Unavailable Asaad, Imad Admitting Unavailable Asaad, Imad Attending Unavailable Sulema Cordero Admitting Unavailable Sulema Cordero Attending Unavailable Wendy Burden Attending Unavailable Wendy Burden Admitting Unavailable NON STAFF Primary Care Unavailable Adam Keller Admitting Unavailable Adam Keller Attending Unavailable Fawwad, Hurtado Primary Care Unavailable Asaad, Imad Admitting Unavailable Asaad, Imad Attending Unavailable Arden De Leon Attending Unavailable Allergies Allergy Classification Reported Allergen(s) Allergy Type Date of Onset Reaction(s) Facility (1 source) ALLERGIES NOT ON FILE; Translations: [ALLERGIES NOT ON FILE] Propensity to adverse reactions (disorder) [facility] Repository (2 sources) No Known Medication Allergies; Translations: [No Known Medication Allergies] Propensity to adverse reactions (disorder) [facility] Repository Medications Current Medications Medication Drug Class(es) [...] / oxyCODONE hydrochloride 5 mg oral tablet (11 sources) Opioid Agonist Start: 02-22-2025 End: 03-24-2025 [...] every eight hours as needed for pain [id number] actuat albuter ol 0.09 mg/actuat metered [...] 2 puff(s) by inhalation in the morning Vueqofa-Myzhevotqzb-Fbfxqdbotm (Breztri Aerosphere) 160-9-4.8 MCG/ACT aerosol Indications: Moderate [...] Active hyoscyamine sulfate 0.125 mg oral tablet (20 sources) Start: 01-30-2025 take 2 tablets by mouth four times daily as needed for muscle spasms Levsin 0.125 mg SL Tab 0.25 mg = 2 tab(s), Oral, QID, PRN for spasm, # 80 tab(s), Refills(s) 0, Pharmacy: [facility], 159, cm, 01/30/25 12:14:00 EDT, Height/Length [...] Days Active plecanatide 3 mg oral tablet (8 sources) Start: 01-30-2025 take 1 tablet by mouth once daily Trulance 3 mg oral tablet 3 mg = 1 tab(s), Oral, Daily, # 30 tab(s), Refills(s) 6, Pharmacy: [facility], 159, cm, 01/30/25 12:14:00 EDT, [...] and abdomen; sucralfate 100 mg/ml oral suspension (9 sources) Aluminum Complex Start: 02-11-2025 take 1 [...] Start: 08-11-2022 take 2 puff(s) by mo ut every four hours as needed Albuterol (Eqv-ProAir [...] procedure, # 2 tab(s), Refills(s) 0, Pharmacy: [facility], 159, cm, 08/11/22 13:12:00 EST, Height/Length [...] day(s), # 90 tab(s), Refills(s) 0, Pharmacy: [facility], 159, cm, 12/24/22 10:00:00 EDT, Height/Length Dosing, 67.6, kg, 12/24/22 10:00:00 EDT, Weight Dosing Start Date: 02/18/23 Stop Date: 05/19/23 Status: Ordered Csqpcatqyev-Aprdstyoh-Jqhyau er (16 sources) Anticholinergic, Corticosteroid, beta2-Adrenergic Agonist Start: 12-30-2023 End: 03-11-2024 Jkoneoogwnj-Fcaxwvqvu-Exonvb er (Trelegy Ellipta) 100-62.5-25 mcg blister with device Discontinued INHALATION December 29, 2023 11:00pm March 11, 2024 7:20am Start: 12-30-2023 End: 03-11-2024 Xfomukknujf-Fxngcscsz-Qdvxpy er (Trelegy Ellipta) 100-62.5-25 mcg blister with [...] Active 1 INH INHALATION Daily 2024 12:00am Szjutqbnuti-Lnqdettef-Tymyzw er (17 sources) Start: 12-27-2023 End: 03-11-2024 Qbjlrerulvv-Nkifsvfvz-Vtvvft er (Trelegy Ellipta) 200-62.5-25 mcg blister with device Discontinued 1 INH INHALATION Daily December 26, 2023 11:00pm March 11, 2024 7:20am FreeTextSig: Inhalation; Note: Source Status: Taking; Qty: 60 Each; Provider: Jacquelyn Manning ( ) Start: 12-27-2023 End: 03-11-2024 Dibxgatvibb-Vdnexdvxf-Xotaae er (Trelegy Ellipta) 200-62.5-25 mcg blister with [...] day(s), # 30 tab(s), Refills(s) 0, Pharmacy: [facility], 159, cm, 12/24/22 10:00:00 EDT, Height/Length [...] 02/22/2025 Discontinued (Therapy completed) polyethylene glycol 3350 21045 mg powder for oral solution (16 sources) Osmotic Laxative Start: 2024 End: 02-11-2025 Polyethylene Glycol 3350 (Miralax) 17 gram/dose powder Discontinued 17 GM PO Daily 2024 1:00am February 11, 2025 3:24pm Start: 12-24-2022 MiraLax Refill (s) 0 Start Date: 12/24/22 Status: Ordered Repeat number: 1 Start: 12-24-2022 MiraLax Refill (s) 0 Start Date: 12/24/22 Status: Ordered polyethylene glycol 3350 [id number] mg / potassium chloride 1480 mg / sodium bicarbonate 5720 mg / sodium chloride 43343 mg powder for oral solution (7 sources) Osmotic Laxative Start: 12-24-2022 NuLYTELY Fuentes oral powder for reconstitution See Instructions, 1 EA, Refill(s) 0, Prior to colonoscopy., [facility], 159, cm, 12/24/22 10:00:00 EDT, Height/Length [...] abdominal pain; Translations: [Upper abdominal pain] Onset: Episodic Acute cerebrovascular disease (20 sources) Cerebrovascular [...] obstructive pulmonary disease] Onset: 3 08-20-2023 Chronic Coma; stupor; and brain damage (4 sources) Loss of consciousness; Translations: [Unspecified coma] Onset: 5 03-07-2025 Episodic Disorders of lipid metabolism (20 sources) [...] 5 Episodic Late effects of cerebrovascular disease (14 sources) Sequelae of cerebral infarction; Translations: [Unspecified sequelae of cerebral infarction] Onset: 5 02-07-2025 Chronic Menopausal disorders (1 source) Postmenopausal atrophic vaginitis; Translations: [POSTMENOPAUSAL ATROPHIC VAGINITIS] Onset: 3 Chronic Miscellaneous mental health disorders (10 sources) Psychophysiologic insomnia; Translations: [Psychophysiologic insomnia] Onset: 5 08-02-2024 Chronic Nonspecific chest pain (3 sources) Chest pain, unspecified; Translations: [CHEST PAIN UNSPECIFIED] Onset: 3 Episodic Occlusion or stenosis of precerebral arteries (20 sources) Left carotid artery stenosis; Translations: [Occlusion and stenosis of left carotid artery] Onset: 5 Chronic Other aftercare (1 source) Other ocean transportation intermediary (current) drug therapy; Translations: [OTH DIRECTOR HEMATOLOGY CURRENT DRUG THERAPY] Onset: 3 Episodic Other aftercare (1 source) long term care administrator (current) use of aspirin; Translations: [DETENTION CURRENT [...] Abdominal bloating 01-30-2025 Episodic Other gastrointestinal disorders (6 sources) Chronic constipation; Translations: [Other constipation] Onset: [...] Onset: 3 Episodic Other lower respiratory disease (4 sources) Hypoxia; Translations: [Hypoxemia] 02-11-2025 Episodic Other lower respiratory disease (1 source) Hypoxemia; Translations: [Hypoxemia] Onset: 5 Episodic Other nervous system disorders (20 sources) Polyneuropathy; Translations: [Polyneuropathy, unspecified] Onset: 3 07-09-2023 Chronic Other nervous system disorders (14 sources) Abnormal gait; Translations: [Unspecified abnormalities of gait and mobility] Onset: 5 02-07-2025 Episodic Other skin disorders (8 sources) Eruption; Translations: [Rash and other nonspecific [...] uncomplicated; Translations: [Smoker] Onset: 3 Resolved: Chronic Transient cerebral ischemia (4 sources) Transient cerebral ischemia; Translations: [Other transient cerebral ischemic attacks and related syndromes] 02-07-2025 Chronic Unclassified (2 sources) Post hospital appointment. Please call to reschedule if needed. Unclassified (1 source) Office is currently unavailable. Please call to schedule a post hospital appointment. Unclassified (1 source) Abdominal aortic aneurysm, without rupture, unspecified; Translations: [Abdominal aortic aneurysm, without rupture, unspecified] Onset: 5 Past or Other Problems Problem Classification Problem [...] Long-term current use of inhaled steroid; Translations: [long term care administrator (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 steroids] Onset: 10-27-2024 [...] abnormal finding of lung field] Onset: 01-04-2024 Resolved: 02-22-2025 12-27-2023 Episodic Other lower respiratory disease (2 [...] 02-23-2025 Reminders Reminders From: Ruth Thrasher To: [facility] - Reminders/Recalls; Sent: 02/23/2025 08:43:40 EDT Show up: 12/11/2025 08:43:00 EDT Subject: Ambulatory Reminder Due Date/Time: 01/10/2026 08:43:00 EDT Reminder/Recall [address] De Leon 02/08/25 [facility] Reminders Reminders From: Cyn Tomlinson MA To: [facility] - Reminders/Recalls; Sent: 02/16/2025 12:51:55 EDT Show up: 02/16/2025 12:52:00 EDT Subject: EGD recall Reminder/Recall [address] De Leon 02/08/25 patient had it done 02/08/2025 error, due in a year. not now. new recall placed. Normal [facility] No Panel Informationon 02-[address] [facility] [address] abdomen pelvis wo conon 0 02-14-2025 CT abdomen pelvis wo con [facility] [place] [address] [place] [address] CT Scan Report Signed Patient: Bhupendra Rubi MR#: [id number] 306 : 1950 Acct:[id number] Age/Sex: 74 / F ADM Date: 02/11/25 Loc: Room: [address] [place] [address] Type: ADM IN Attending Dr: Jamin Covarrubias [...] Jr., D.O. 02/14/2025 2:03 PM Dictation Location: [place] [address] Transcribed By: [facility] 02/14/25 1403 Dictated By: Napoleon Jalloh Jr, DO 02/14/25 1359 Signed By: 02/14/25 1403 Normal [facility] Complete Blood Count Auto Di ffon 02-14-2025 Basophils (Bld) [#/Vol] 0.0 10*3/uL Normal 0.0-0.2 [facility] Comment on above: Result Comment: PERF ORMED BY: [place] [address] PATHOLOGIST DISPLAY DESIGNER OBDULIO SEAMAN M.D. Performed By: #### C BC, CMP #### [address] Basophils/100 WBC (Bld) 0.3 % Normal . T [facility] Comment on above: Performed By: #### C BC, CMP #### [address] Eosinophils (Bld) [#/Vol] 0.1 10*3/uL Normal 0.0-0.45 [facility] Comment on above: Performed By: #### C BC, CMP #### [address] Eosinophils/100 WBC (Bld) 1.6 % Normal . [facility] Comment on above: Performed By: #### C BC, CMP #### [address] Erythrocyte distribution width (RBC) [Ratio] 17.0 % High 11.9-15.3 [facility] Comment on above: Performed By: #### C BC, CMP #### [address] Hematocrit (Bld) [Volume fraction] 40.2 % Normal 34.0-46.4 [facility] Comment on above: Performed By: #### C BC, CMP #### [address] Hemoglobin (Bld) [Mass/Vol] 12.9 g/dL Normal 11.8-15.4 [facility] Comment on above: Performed By: #### C BC, CMP #### [address] Lymphocytes (Bld) [#/Vol] 1.7 10*3/uL Normal 1.00-4.8 [facility] Comment on above: Performed By: #### C BC, CMP #### [address] Lymphocytes/100 WBC (Bld) 21.7 % Normal . [facility] Comment on above: Performed By: #### C SUNDEEP, CMP #### [address] MCH (RBC) [Entitic mass] 27.0 pg Normal 24.7-34.3 [facility] Comment on above: Performed By: #### C SUNDEEP, CMP #### [address] MCV (RBC) [Entitic vol] 84.4 fL Normal 80-100 [facility] Comment on above: Performed By: #### C SUNDEEP, CMP #### [address] Mean Corpuscular HGB Conc 32.0 g/dL Normal 32.0-35.0 [facility] Comment on above: Performed By: #### C BC, CMP #### [place] [address] [place] Monocytes (Bld) [#/Vol] 0.9 10*3/uL High 0.0-0.8 [facility] Comment on above: Performed By: #### C BC, CMP #### [address] Monocytes/100 WBC (Bld) 11.4 % Normal . [facility] Comment on above: Performed By: #### C BC, CMP #### [address] [place] [address] [place] Neutrophils (Bld) [#/Vol] 5.2 10*3/uL Normal 1.8-7.7 [facility] Comment on above: Performed By: #### C BC, CMP #### [address] Neutrophils/100 WBC (Bld) 65.0 % Normal . [facility] Comment on above: Performed By: #### C BC, CMP #### [address] NRBC% 0.0 /100{WBC} Normal 0-0.5 [facility] Comment on above: Performed By: #### C BC, CMP #### [address] Platelet mean volume (Bld) [Entitic vol] 7.9 fL Normal 6.3-10.7 [facility] Comment on above: Performed By: #### C BC, CMP #### [address] Platelets (Bld) [#/Vol] 291 10*3/uL Normal 150-450 [facility] Comment on above: Performed By: #### C BC, CMP #### [address] RBC (Bld) [#/Vol] 4.77 10*6/uL Normal 3.60-5.00 [facility] Comment on above: Performed By: #### C BC, CMP #### [address] WBC (Bld) [#/Vol] 8.0 10*3/uL Normal 3.8-11.6 [facility] Comment on above: Performed By: #### C BC, CMP #### [address] White Blood Count 8.0 [CFU]/mL Normal 3.8-11.6 [facility] Comment on above: Performed By: #### C BC, CMP #### [address] [place] [address] [place] Comprehensive Metabolic Pane agata 02-14-2025 Albumin [Mass/Vol] 3.5 g/dL Normal 3.5-5.7 [facility] Comment on above: Performed By: #### C BC, CMP #### [address] Albumin/Globulin [Mass ratio] 1.6 {ratio} Normal [facility] Comment on above: Performed By: #### C BC, CMP #### [address] ALP [Catalytic activity/Vol] 70 U/L Normal 34-104 [facility] Comment on above: Performed By: #### C BC, CMP #### [address] ALT [Catalytic activity/Vol] 6 U/L Low 7-52 [facility] Comment on above: Performed By: #### C BC, CMP #### [address] Anion gap [Moles/Vol] 10.1 mmol/L Normal 6.0-15.0 Th e [facility] Comment on above: Performed By: #### C BC, CMP #### [address] AST [Catalytic activity/Vol] 11 U/L Low 13-39 [facility] Comment on above: Performed By: #### C BC, CMP #### [address] Bilirubin [Mass/Vol] 0.4 mg/dL Normal 0.3-1.0 [facility] Comment on above: Performed By: #### C BC, CMP #### [address] Calcium [Mass/Vol] 8.7 mg/dL Normal 8.6-10.3 [facility] Comment on above: Performed By: #### C BC, CMP #### [address] Chloride [Moles/Vol] 104 mmol/L Normal 98-107 [facility] Comment on above: Performed By: #### C BC, CMP #### [address] CO2 [Moles/Vol] 29.6 mmol/L Normal 21.0-31.0 [facility] Comment on above: Performed By: #### C BC, CMP #### [address] Creatinine [Mass/Vol] 0.88 mg/dL Normal 0.60-1.20 [facility] Comment on above: Performed By: #### C BC, CMP #### [place] [address] [place] Creatinine Clr Calc Pharmacy 50.59 Normal [facility] Comment on above: Result Comment: PERF ORMED BY: [place] [address] PATHOLOGIST DISPLAY DESIGNER OBDULIO SEAMAN M.D. Performed By: #### C BC, CMP #### [place] [address] [place] GFR/1.73 sq M.predicted MDRD (S/P/Bld) [Vol rate/Area] mL/min/{1.73_m2} Normal [facility] Comment on above: Performed By: #### C BC, CMP #### [address] Globulin (S) [Mass/Vol] 2.2 g/dL Normal T [facility] Comment on above: Performed By: #### C BC, CMP #### [address] Glucose [Mass/Vol] 83 mg/dL Normal 70-100 [facility] Comment on above: Result Comment: [place] Glucose Reference Range is dependent on time and content of last meal. Glucose of more than 200 mg/dL in a nonstressed, ambulatory subject supports the diagnosis of Diabetes Mellitus. ADA recommended reference range Performed By: #### C BC, CMP #### [place] [address] [place] Potassium [Moles/Vol] 3.7 mmol/L Normal 3.5-5.1 [facility] Comment on above: Performed By: #### C BC, CMP #### [address] Protein [Mass/Vol] 5.7 g/dL Low 6.4-8.9 [facility] Comment on above: Performed By: #### C BC, CMP #### [address] Sodium [Moles/Vol] 140 mmol/L Normal 136-145 [facility] Comment on above: Performed By: #### C BC, CMP #### [address] Urea nitrogen [Mass/Vol] 9 mg/dL Normal 7-25 [facility] Comment on above: Performed By: #### C BC, CMP #### [address] MR head/brain wo/w conon MR head/brain wo/w con [facility] Main [place] [address] [place] [address] MRI Report Signed Patient: Bhupendra Rubi MR#: [id number] 306 : 1950 Acct:[id number] Age/Sex: 74 / F ADM Date: 02/11/25 Loc: Room: [address] [place] [address] Type: ADM IN Attending Dr: Jamin Covarrubias [...] Salazar M.D. 02/14/2025 4:53 PM Dictation Location: [place] [address] Transcribed By: [facility] 02/14/25 1653 Dictated By: Neyda Salazar II, MD 02/14/25 1639 Signed By: 02/14/25 1653 Normal [facility] Surgical Pathology Reporton 02-14-2025 [place] [address]- Surgical Pathology Report Collected Date/Time: 02/08/2025 10:48 [...] characteristics were determined by the [facility] Surgical Pathology. They have not been cleared or approved by the US Food and Drug Administration. The FDA has determined that such clearance or approval is not necessary. These tests are used for clinical Surgical Pathology Report Collected Date/Time: 02/08/2025 10:48 EDT Pathologist: Ev Mckeon MD Received Date/Time: 02/08/2025 13:25 EDT Moises FARFAN, Arden Howell MD. Microscopic Description purposes. They should not be regarded as investigational or for research. Appropriate positive and negative controls are performed and are acceptable. This report was transcribed using voice recognition technology and might contain unintended computerized white kid buffer errors. Microscopic examination performed unless gross only specified. Quality was accessed and acceptable. Normal [facility] Comment on above: Performed By: #### [id number] #### [facility] Laboratory [address] [place] [address] Complete Blood Count Auto Di ffon 02-13-2025 Basophils (Bld) [#/Vol] 0.1 10*3/uL Normal 0.0-0.2 [facility] Comment on above: Result Comment: PERF ORMED BY: [place] [address] PATHOLOGIST DISPLAY DESIGNER OBDULIO SEAMAN M.D. Performed By: #### C BC, CMP #### [address] Basophils/100 WBC (Bld) 0.7 % Normal . T [facility] Comment on above: Performed By: #### C BC, CMP #### [address] Eosinophils (Bld) [#/Vol] 0.1 10*3/uL Normal 0.0-0.45 [facility] Comment on above: Performed By: #### C BC, CMP #### [address] Eosinophils/100 WBC (Bld) 1.3 % Normal . [facility] Comment on above: Performed By: #### C BC, CMP #### [address] Erythrocyte distribution width (RBC) [Ratio] 17.3 % High 11.9-15.3 [facility] Comment on above: Performed By: #### C BC, CMP #### [address] Hematocrit (Bld) [Volume fraction] 40.8 % Normal 34.0-46.4 [facility] Comment on above: Performed By: #### C BC, CMP #### [address] Hemoglobin (Bld) [Mass/Vol] 13.2 g/dL Normal 11.8-15.4 [facility] Comment on above: Performed By: #### C BC, CMP #### [address] Lymphocytes (Bld) [#/Vol] 2.2 10*3/uL Normal 1.00-4.8 [facility] Comment on above: Performed By: #### C BC, CMP #### [address] Lymphocytes/100 WBC (Bld) 22.6 % Normal . [facility] Comment on above: Performed By: #### C BC, CMP #### [address] MCH (RBC) [Entitic mass] 27.6 pg Normal 24.7-34.3 [facility] Comment on above: Performed By: #### C BC, CMP #### [address] MCV (RBC) [Entitic vol] 85.6 fL Normal 80-100 [facility] Comment on above: Performed By: #### C BC, CMP #### [address] Mean Corpuscular HGB Conc 32.3 g/dL Normal 32.0-35.0 [facility] Comment on above: Performed By: #### C BC, CMP #### [place] [address] [place] Monocytes (Bld) [#/Vol] 0.8 10*3/uL Normal 0.0-0.8 [facility] Comment on above: Performed By: #### C BC, CMP #### [place] [address] [place] Monocytes/100 WBC (Bld) 8.6 % Normal . [facility] Comment on above: Performed By: #### C BC, CMP #### [address] Neutrophils (Bld) [#/Vol] 6.5 10*3/uL Normal 1.8-7.7 [facility] Comment on above: Performed By: #### C BC, CMP #### [facility] [address] Neutrophils/100 WBC (Bld) 66.8 % Normal . [facility] Comment on above: Performed By: #### C BC, CMP #### [facility] [address] NRBC% 0.1 /100{WBC} Normal 0-0.5 [facility] Comment on above: Performed By: #### C BC, CMP #### [facility] [address] Platelet mean volume (Bld) [Entitic vol] 8.1 fL Normal 6.3-10.7 [facility] Comment on above: Performed By: #### C BC, CMP #### [place] [address] [place] Platelets (Bld) [#/Vol] 343 10*3/uL Normal 150-450 [facility] Comment on above: Performed By: #### C BC, CMP #### [facility] [address] RBC (Bld) [#/Vol] 4.77 10*6/uL Normal 3.60-5.00 [facility] Comment on above: Performed By: #### C BC, CMP #### [place] [address] [place] WBC (Bld) [#/Vol] 9.8 10*3/uL Normal 3.8-11.6 [facility] Comment on above: Performed By: #### C BC, CMP #### [address] White Blood Count 9.8 [CFU]/mL Normal 3.8-11.6 [facility] Comment on above: Performed By: #### C BC, CMP #### [address] Comprehensive Metabolic Pane agata 02-13-2025 Albumin [Mass/Vol] 3.7 g/dL Normal 3.5-5.7 [facility] Comment on above: Performed By: #### C BC, CMP #### [address] Albumin/Globulin [Mass ratio] 1.5 {ratio} Normal [facility] Comment on above: Performed By: #### C BC, CMP #### [address] ALP [Catalytic activity/Vol] 71 U/L Normal 34-104 [facility] Comment on above: Performed By: #### C BC, CMP #### [address] ALT [Catalytic activity/Vol] 8 U/L Normal 7-52 [facility] Comment on above: Performed By: #### C BC, CMP #### [address] Anion gap [Moles/Vol] 9.8 mmol/L Normal 6.0-15.0 [facility] Comment on above: Performed By: #### C BC, CMP #### [address] AST [Catalytic activity/Vol] 11 U/L Low 13-39 [facility] Comment on above: Performed By: #### C BC, CMP #### [address] Bilirubin [Mass/Vol] 0.4 mg/dL Normal 0.3-1.0 [facility] Comment on above: Performed By: #### C BC, CMP #### [place] [address] [place] Calcium [Mass/Vol] 8.8 mg/dL Normal 8.6-10.3 [facility] Comment on above: Performed By: #### C BC, CMP #### [address] Chloride [Moles/Vol] 104 mmol/L Normal 98-107 [facility] Comment on above: Performed By: #### C BC, CMP #### [address] CO2 [Moles/Vol] 31.1 mmol/L High 21.0-31.0 [facility] Comment on above: Performed By: #### C BC, CMP #### [address] Creatinine [Mass/Vol] 0.89 mg/dL Normal 0.60-1.20 [facility] Comment on above: Performed By: #### C BC, CMP #### [address] Creatinine Clr Calc Pharmacy 50.02 Normal [facility] Comment on above: Result Comment: PERF ORMED BY: [place] [address] PATHOLOGIST DISPLAY DESIGNER OBDULIO SEAMAN M.D. Performed By: #### C BC, CMP #### [address] GFR/1.73 sq M.predicted MDRD (S/P/Bld) [Vol rate/Area] mL/min/{1.73_m2} Normal [facility] Comment on above: Performed By: #### C BC, CMP #### [address] Globulin (S) [Mass/Vol] 2.4 g/dL Normal T he [facility] Comment on above: Performed By: #### C BC, CMP #### [address] Glucose [Mass/Vol] 83 mg/dL Normal 70-100 [facility] Comment on above: Result Comment: [place] Glucose Reference Range is dependent on time and content of last meal. Glucose of more than 200 mg/dL in a nonstressed, ambulatory subject supports the diagnosis of Diabetes Mellitus. ADA recommended reference range Performed By: #### C BC, CMP #### [address] Potassium [Moles/Vol] 3.9 mmol/L Normal 3.5-5.1 [facility] Comment on above: Performed By: #### C BC, CMP #### [address] Protein [Mass/Vol] 6.1 g/dL Low 6.4-8.9 [facility] Comment on above: Performed By: #### C BC, CMP #### [address] Sodium [Moles/Vol] 141 mmol/L Normal 136-145 [facility] Comment on above: Performed By: #### C BC, CMP #### [address] Urea nitrogen [Mass/Vol] 9 mg/dL Normal 7-25 [facility] Comment on above: Performed By: #### C BC, CMP #### [address] Complete Blood Count Auto Di ffon 02-12-2025 Basophils (Bld) [#/Vol] 0.1 10*3/uL Normal 0.0-0.2 [facility] Comment on above: Result Comment: PERF ORMED BY: [place] [address] PATHOLOGIST DISPLAY DESIGNER OBDULIO SEAMAN M.D. Performed By: #### P ATH TO [facility] #### [address] Basophils/100 WBC (Bld) 1.0 % Normal . T [facility] Comment on above: Performed By: #### P ATH TO [facility] #### [address] Eosinophils (Bld) [#/Vol] 0.1 10*3/uL Normal 0.0-0.45 [facility] Comment on above: Performed By: #### P ATH TO [facility] #### [place] [address] [place] Eosinophils/100 WBC (Bld) 1.4 % Normal . [facility] Comment on above: Performed By: #### P ATH TO [facility] #### [address] Erythrocyte distribution width (RBC) [Ratio] 17.4 % High 11.9-15.3 [facility] Comment on above: Performed By: #### P ATH TO [facility] #### [address] Hematocrit (Bld) [Volume fraction] 40.8 % Normal 34.0-46.4 [facility] Comment on above: Performed By: #### P ATH TO [facility] #### [address] Hemoglobin (Bld) [Mass/Vol] 13.0 g/dL Normal 11.8-15.4 [facility] Comment on above: Performed By: #### P ATH TO [facility] #### [address] Lymphocytes (Bld) [#/Vol] 2.0 10*3/uL Normal 1.00-4.8 [facility] Comment on above: Performed By: #### P ATH TO [facility] #### [address] Lymphocytes/100 WBC (Bld) 23.2 % Normal . [facility] Comment on above: Performed By: #### P ATH TO [facility] #### [address] MCH (RBC) [Entitic mass] 27.1 pg Normal 24.7-34.3 [facility] Comment on above: Performed By: #### P ATH TO [facility] #### [address] MCV (RBC) [Entitic vol] 85.5 fL Normal 80-100 T [facility] Comment on above: Performed By: #### P ATH TO [facility] #### [address] Mean Corpuscular HGB Conc 31.8 g/dL Low 32.0-35.0 [facility] Comment on above: Performed By: #### P ATH TO [facility] #### [place] [address] [place] Monocytes (Bld) [#/Vol] 0.9 10*3/uL High 0.0-0.8 [facility] Comment on above: Performed By: #### P ATH TO [facility] #### [place] [address] [place] Monocytes/100 WBC (Bld) 10.6 % Normal . T [facility] Comment on above: Performed By: #### P ATH TO [facility] #### [place] [address] [place] Neutrophils (Bld) [#/Vol] 5.5 10*3/uL Normal 1.8-7.7 [facility] Comment on above: Performed By: #### P ATH TO [facility] #### [place] [address] [place] Neutrophils/100 WBC (Bld) 63.8 % Normal . [facility] Comment on above: Performed By: #### P ATH TO [facility] #### [place] [address] [place] NRBC% 0.3 /100{WBC} Normal 0-0.5 [facility] Comment on above: Performed By: #### P ATH TO [facility] #### [address] Platelet mean volume (Bld) [Entitic vol] 8.3 fL Normal 6.3-10.7 [facility] Comment on above: Performed By: #### P ATH TO [facility] #### [place] [address] [place] Platelets (Bld) [#/Vol] 327 10*3/uL Normal 150-450 [facility] Comment on above: Performed By: #### P ATH TO [facility] #### [place] [address] [place] RBC (Bld) [#/Vol] 4.77 10*6/uL Normal 3.60-5.00 [facility] Comment on above: Performed By: #### P ATH TO [facility] #### [address] WBC (Bld) [#/Vol] 8.6 10*3/uL Normal 3.8-11.6 [facility] Comment on above: Performed By: #### P ATH TO [facility] #### [address] White Blood Count 8.6 [CFU]/mL Normal 3.8-11.6 [facility] Comment on above: Performed By: #### P ATH TO [facility] #### [address] Comprehensive Metabolic Pane agata 02-12-2025 Albumin [Mass/Vol] 3.5 g/dL Normal 3.5-5.7 [facility] Comment on above: Performed By: #### P ATH TO [facility] #### [address] Albumin/Globulin [Mass ratio] 1.4 {ratio} Normal [facility] Comment on above: Performed By: #### P ATH TO [facility] #### [address] ALP [Catalytic activity/Vol] 69 U/L Normal 34-104 [facility] Comment on above: Performed By: #### P ATH TO [facility] #### [address] ALT [Catalytic activity/Vol] 9 U/L Normal 7-52 [facility] Comment on above: Performed By: #### P ATH TO [facility] #### [address] Anion gap [Moles/Vol] 8.4 mmol/L Normal 6.0-15.0 [facility] Comment on above: Performed By: #### P ATH TO [facility] #### [address] AST [Catalytic activity/Vol] 11 U/L Low 13-39 [facility] Comment on above: Performed By: #### P ATH TO [facility] #### [facility] [address] [place] [address] [place] Bilirubin [Mass/Vol] 0.5 mg/dL Normal 0.3-1.0 [facility] Comment on above: Performed By: #### P ATH TO [facility] #### [facility] [address] [place] [address] [place] Calcium [Mass/Vol] 8.8 mg/dL Normal 8.6-10.3 [facility] Comment on above: Performed By: #### P ATH TO [facility] #### [facility] [address] [place] [address] [place] Chloride [Moles/Vol] 106 mmol/L Normal 98-107 [facility] Comment on above: Performed By: #### P ATH TO [facility] #### [place] [address] [place] CO2 [Moles/Vol] 30.6 mmol/L Normal 21.0-31.0 [facility] Comment on above: Performed By: #### P ATH TO [facility] #### [place] [address] [place] Creatinine [Mass/Vol] 0.90 mg/dL Normal 0.60-1.20 [facility] Comment on above: Performed By: #### P ATH TO [facility] #### [place] [address] [place] Creatinine Clr Calc Pharmacy 50.54 Normal [facility] Comment on above: Result Comment: PERF ORMED BY: [place] [address] PATHOLOGIST DISPLAY DESIGNER OBDULIO SEAMAN M.D. Performed By: #### P ATH TO [facility] #### [place] [address] [place] GFR/1.73 sq M.predicted MDRD (S/P/Bld) [Vol rate/Area] mL/min/{1.73_m2} Normal [facility] Comment on above: Performed By: #### P A[facility] TO [facility] #### [place] [address] [place] Globulin (S) [Mass/Vol] 2.5 g/dL Normal T he [facility] Comment on above: Performed By: #### P ATH TO [facility] #### [address] Glucose [Mass/Vol] 83 mg/dL Normal 70-100 [facility] Comment on above: Result Comment: [facility] Glucose Reference Range is dependent on time and content of last meal. Glucose of more than 200 mg/dL in a nonstressed, ambulatory subject supports the diagnosis of Diabetes Mellitus. ADA recommended reference range Performed By: #### P ATH TO [facility] #### [address] Potassium [Moles/Vol] 4.0 mmol/L Normal 3.5-5.1 [facility] Comment on above: Result Comment: Hemo lysis is present at a level that could interfere with the result. Contact lab if redraw is required Performed By: #### P A[facility] TO [facility] #### [place] [address] [place] Protein [Mass/Vol] 6.0 g/dL Low 6.4-8.9 [facility] Comment on above: Performed By: #### P ATH TO [facility] #### [place] [address] [place] Sodium [Moles/Vol] 141 mmol/L Normal 136-145 [facility] Comment on above: Performed By: #### P ATH TO [facility] #### [place] [address] [place] Urea nitrogen [Mass/Vol] 9 mg/dL Normal 7-25 [facility] Comment on above: Performed By: #### P ATH TO [facility] #### [place] [address] [place] Partial Thromboplastin Timeo n 02-12-2025 aPTT Coag (Bld) [Time] 32.0 s Normal 25.1-36.5 Th e [facility] Comment on above: Result Comment: A he matocrit value greater than 55% may lead to inaccurate results in coagulation testing. Patients having hematocrit values >55% require a special collection tube for coagulation studies. Please contact the laboratory at [phone] for redraw instructions. PERFORMED BY: [address] [place] [address] PATHOLOGIST DISPLAY DESIGNER OBDULIO SEAMAN M.D. Performed By: #### P ATH TO [facility] #### [place] [id number] [facility] Prothrombin Time INRon 02-12 INR Coag (PPP) [Relative time] 1.3 {INR} Normal [facility] Comment on above: Result Comment: [...] valves: 3 - 4.5 Performed By: #### P ATH TO [facility] #### [address] PT Coag (PPP) [Time] 14.9 s High 9.0-12.9 [facility] Comment on above: Result Comment: A he matocrit value greater than 55% may lead to inaccurate results in coagulation testing. Patients having hematocrit values >55% require a special collection tube for coagulation studies. Please contact the laboratory at [phone] for redraw instructions. Performed By: #### P ATH [facility] #### [place] [id number] [facility] Acetaminophen [Mass/volume] in Serum or PlasmaOrdered By: Isabella Brown on 02-11-2025 Acetaminophen [Mass/Vol] 0.1 ug/mL Low 10.0-30.0 [facility] Comment on above: Result Comment: PERF ORMED BY: [place] [address] PATHOLOGIST DISPLAY DESIGNER OBDULIO SEAMAN M.D. Performed By: #### C UU #### [facility] [address] [place] [address] [place] Alanine aminotransferase [En zymatic activity/volume] in Serum or PlasmaOrdered By: Isabella Brown on 02-11-2025 ALT [Catalytic activity/Vol] 10 U/L Normal 7-52 [facility] Comment on above: Performed By: #### L ACOSAMIDE #### [facility] , Albumin [Mass/volume] in Ser um or Plasma by Bromocresol green (BCG) dye binding methoOrdered By: Isabella Brown on 02-11-2025 Albumin BCG dye [Mass/Vol] 3.8 g/dL 3.5-5.7 [facility] Alkaline phosphatase [Enzyma tic activity/volume] in Serum or PlasmaOrdered By: Isabella Brown on 02-11-2025 ALP [Catalytic activity/Vol] 76 U/L Normal 34-104 [facility] Comment on above: Performed By: #### L ACOSAMIDE #### [facility] , Ammonia [Moles/volume] in Pl asmaOrdered By: Isabella Brown on 02-11-2025 Ammonia (P) [Moles/Vol] 30 umol/L Normal 11-35 [facility] Comment on above: Result Comment: PERF ORMED BY: [place] [address] PATHOLOGIST DISPLAY DESIGNER OBDULIO SEAMAN M.D. Performed By: #### C UU #### [address] Appearance of UrineOrdered B y: Isabella Brown on 02-11-2025 Appearance (U) Clear Normal Clear [facility] Comment on above: Order Comment: Name Collection Type:: Voided Performed By: #### C UU #### [address] Arterial Blood Gason 025 ABG Base Excess -3.6 mmol/L Low -3.0-3.0 [facility] Comment on above: Performed By: #### P ATH TO [facility] #### [address] ABG Frac Inspired O2 28 % Normal [facility] Comment on above: Performed By: #### P ATH TO [facility] #### [address] ABG Liter Flow 1.5 Normal [facility] Comment on above: Performed By: #### P ATH TO [facility] #### [address] ABG Oxygen Content 7.3 mmol/L Normal 6.6-9.7 [facility] Comment on above: Performed By: #### P ATH TO [facility] #### [address] ABG Oxygen Saturation 90.4 % Low 95.0-100.0 [facility] Comment on above: Performed By: #### P ATH TO [facility] #### [address] ABG PCO2 49.2 mm[Hg] High 35.0-45.0 [facility] Comment on above: Performed By: #### P ATH TO [facility] #### [address] ABG PH 7.29 Low 7.35-7.45 [facility] Comment on above: Performed By: #### P ATH TO [facility] #### [address] ABG PO2 63.2 mm[Hg] Low 80.0-100.0 [facility] Comment on above: Performed By: #### P ATH TO [facility] #### [address] Oxygen Device Nasal Cannula Normal [facility] Comment on above: Performed By: #### P ATH TO [facility] #### [address] Respiratory Critical Normal [facility] Comment on above: Result Comment: Crit ical Value called on: 02/11/2025 at 14:29 PERFORMED BY: [place] [address] PATHOLOGIST DISPLAY DESIGNER OBDULIO SEAMAN M.D. Performed By: #### P ATH TO [facility] #### [facility] [address] [place] [address] VBG Draw Site Left Brachial Normal [facility] Comment on above: Performed By: #### P ATH TO [facility] #### [facility] [address] [place] [address] Arterial Blood GasOrdered By : Isabella Brown on 02-11-2025 CO2 [Moles/Vol] 24.8 mmol/L Normal 23.0-27.0 [facility] Comment on above: Performed By: #### P ATH TO [facility] #### [facility] [address] [place] [address] HCO3 (Bld) [Moles/Vol] 23.3 mmol/L Normal 23.0-29.0 [facility] Comment on above: Performed By: #### P ATH TO [facility] #### [facility] [address] [place] [address] Aspartate aminotransferase [ Enzymatic activity/volume] in Serum or PlasmaOrdered By: Isabella Brown on 02-11-2025 AST [Catalytic activity/Vol] 11 U/L Low 13-39 [facility] Comment on above: Performed By: #### L ACOSAMIDE #### [facility] , BNP ser/plasOrdered By: David Brown on 02-11-2025 Natriuretic peptide B (Bld) [Mass/Vol] 32.0 pg/mL Normal 5-100 [facility] Comment on above: Result Comment: PERF ORMED BY: [place] [address] PATHOLOGIST DISPLAY DESIGNER OBDULIO SEAMAN M.D. Performed By: #### L ACOSAMIDE #### [facility] , Basic Metabolic Panelon Creatinine Clr Calc Pharmacy 38.80 Normal [facility] Comment on above: Performed By: #### L ACOSAMIDE #### [facility] , GFR/1.73 sq M.predicted MDRD (S/P/Bld) [Vol rate/Area] 50.092 mL/min/{1.73_m2} Normal [facility] Comment on above: Performed By: #### L ACOSAMIDE #### [facility] , Basophils [#/volume] in Bloo d by Automated countOrdered By: Isabella Brown on 02-11-2025 Basophils (Bld) [#/Vol] 0.1 10*3/uL Normal 0.0-0.2 [facility] Comment on above: Result Comment: PERF ORMED BY: [place] [address] PATHOLOGIST DISPLAY DESIGNER OBDULIO SEAMAN M.D. Performed By: #### C UU #### [facility] [address] [place] [address] Basophils/100 leukocytes in Blood by Automated countOrdered By: Isabella Brown on 02-11-2025 Basophils/100 WBC (Bld) 0.6 % Normal . [facility] Comment on above: Performed By: #### C UU #### [facility] [address] [place] [address] Bilirubin Test strip Ql (U)O rdered By: Isabella Brown on 02-11-2025 Bilirubin Ql (U) Negative Negative [facility] Bilirubin.direct [Mass/volum e] in Serum or PlasmaOrdered By: Isabella Brown on 02-11-2025 Bilirubin.direct [Mass/Vol] 0.10 mg/dL 0.03-0.18 [facility] Bilirubin.total [Mass/volume ] in Serum or PlasmaOrdered By: Isabella Brown on 02-11-2025 Bilirubin [Mass/Vol] 0.5 mg/dL Normal 0.3-1.0 [facility] Comment on above: Performed By: #### L ACOSAMIDE #### [facility] , Blood Cultureon 02-11-2025 Bacteria identified Cx Nom (Bld) NO GROWTH 5 DAYS PERFORMED BY: [place] [address] PATHOLOGIST DISPLAY DESIGNER OBDULIO SEAMAN M.D. Normal [facility] Comment on above: Performed By: #### C UU #### [address] angio abdomen pelvison CT angio abdomen pelvis [facility] Main [place] [address] [place] [address] CT Scan Report Signed Patient: Bhupendra Rubi MR#: [id number] : 1950 Acct:[id number] Age/Sex: 74 / F ADM Date: 02/11/25 Loc: ER Room: Type: [facility] ER Attending Dr: Copies to: Isabella Brown MD Ordering Provider: Isabella Brown MD Date of Service: 02/11/25 CT/CT angio abdomen pelvis: known aneurysm, sudden abd pain ([id number]) CT/CT angio chest: seizure, arreola CT angio [...] Salazar M.D. 02/11/2025 2:01 PM Dictation Location: [place] [address] Transcribed By: JOSE MIGUEL 02/11/25 1401 Dictated By: Neyda Salazar II, MD 02/11/25 1350 Signed By: 02/11/25 1401 Normal [facility] CT angio headon 02-11-2025 CT angio head [facility] [place] [address] CT Scan Report Signed Patient: Bhupendra Rubi MR#: [id number] : 1950 Acct:[id number] Age/Sex: 74 / F ADM Date: 02/11/25 Loc: ER Room: Type: PRE ER Attending Dr: Copies to: Isabella Brown MD Ordering Provider: Isabella Brown MD Date of Service: 02/11/25 CT/CT angio head: seizure, arreola ([id number]) CT/CT head/brain wo con: seizure, arreola ([id number]) CT/CT angio neck: SYNCOPAL EPISODE VS SEIZURE [...] Salazar M.D. 02/11/2025 1:49 PM Dictation Location: [place] [address] Transcribed By: [facility] 02/11/25 1349 Dictated By: Neyda Salazar II, MD 02/11/25 1338 Signed By: 02/11/25 1349 Normal [facility] Calcium [Mass/volume] in Ser um or PlasmaOrdered By: Isabella Brown on 02-11-2025 Calcium [Mass/Vol] 9.0 mg/dL Normal 8.6-10.3 [facility] Comment on above: Performed By: #### L ACOSAMIDE #### [facility] , Carbon dioxide, total [Moles /volume] in Serum or PlasmaOrdered By: Isabella Brown on 02-11-2025 CO2 [Moles/Vol] 26.3 mmol/L Normal 21.0-31.0 [facility] Comment on above: Performed By: #### L ACOSAMIDE #### [facility] , Chloride [Moles/volume] in S [place] or PlasmaOrdered By: Isabella Brown on 02-11-2025 Chloride [Moles/Vol] 106 mmol/L Normal 98-107 [facility] Comment on above: Performed By: #### L ACOSAMIDE #### [facility] , Color of Urine by AutoOrdere d By: Isabella Brown on 02-11-2025 Color (U) Colorless Normal [facility] Comment on above: Order Comment: Name Collection Type:: Voided Performed By: #### C UU #### [address] Complete Blood Count Auto Di ffon 02-11-2025 Mean Corpuscular HGB Conc 32.2 g/dL Normal 32.0-35.0 [facility] Comment on above: Performed By: #### C UU #### [address] Monocytes/100 WBC (Bld) 16.76 % Normal 0.00-20.00 T [facility] Comment on above: Performed By: #### C UU #### [address] NRBC% 0.0 /100{WBC} Normal 0-0.5 [facility] Comment on above: Performed By: #### C UU #### [address] White Blood Count 10.6 [CFU]/mL Normal 3.8-11.6 [facility] Comment on above: Performed By: #### C UU #### [address] [place] [address] [facility] Creatine kinase [Enzymatic a ctivity/volume] in Serum or PlasmaOrdered By: Isabella Brown on 02-11-2025 CK [Catalytic activity/Vol] 31 U/L Normal 30-223 [facility] Comment on above: Performed By: #### L ACOSAMIDE #### [facility] , Creatinine [Mass/volume] in Serum or PlasmaOrdered By: Isabella Brown on 02-11-2025 Creatinine [Mass/Vol] 1.16 mg/dL Normal 0.60-1.20 [facility] Comment on above: Performed By: #### L ACOSAMIDE #### [facility] , ECG 12 lead ECGon 02-11-2025 ECG 12 lead ECG [facility] Main [place] [address] [place] [address] Electrocardiograph Report Signed Patient: Bhupendra Rubi MR#: [id number] : 1950 Acct:[id number] Age/Sex: 74 / F ADM Date: 02/11/25 Loc: Room: [address] [place] [address] Type: ADM IN Attending Dr: Matteo Zaragoza [...] sinus rhythm Confirmed by Isabella Brown MD ([id number]) on 02/11/2025 7:37:09 PM Referred By: Electronically Signed By: Isabella Brown MD Transcribed By: MUS Signed By Isabella Brown MD 09/06 Normal [facility] Eosinophils [#/volume] in Bl ood by Automated countOrdered By: Isabella Brown on 02-11-2025 Eosinophils (Bld) [#/Vol] 0.1 10*3/uL Normal 0.0-0.45 [facility] Comment on above: Performed By: #### C UU #### [address] Eosinophils/100 leukocytes i n Blood by Automated countOrdered By: Isabella Brown on 02-11-2025 Eosinophils/100 WBC (Bld) 0.6 % Normal . [facility] Comment on above: Performed By: #### C UU #### [address] Erythrocyte distribution wid th [Ratio] by Automated countOrdered By: Isabella Brown on 02-11-2025 Erythrocyte distribution width (RBC) [Ratio] 17.4 % High 11.9-15.3 [facility] Comment on above: Performed By: #### C UU #### [address] Erythrocytes [#/volume] in B lood by Automated countOrdered By: Isabella Brown on 02-11-2025 RBC (Bld) [#/Vol] 4.93 10*6/uL Normal 3.60-5.00 [facility] Comment on above: Performed By: #### C UU #### [address] Ethanol [Mass/volume] in Ser um or PlasmaOrdered By: Isabella Brown on 02-11-2025 Ethanol [Mass/Vol] mg/dL Normal [facility] Comment on above: Performed By: #### C UU #### [address] Ethyl Alcohol Profileon Percent Ethanol Not performed Normal [facility] Comment on above: Result Comment: PERF ORMED BY: [place] [address] PATHOLOGIST DISPLAY DESIGNER OBDULIO SEAMAN M.D. Performed By: #### C UU #### [address] Glucose [Mass/volume] in Ser um or PlasmaOrdered By: Isabella Brown on 02-11-2025 Glucose [Mass/Vol] 131 mg/dL High 70-100 [facility] Comment on above: ADA recommended refe rence rangeRandom Glucose Reference Range is dependent on time and content of last meal. Glucose of more than 200 mg/dL in a nonstressed, ambulatory subject supports the diagnosis of Diabetes Mellitus. Result Comment: Sharon om Glucose Reference Range is dependent on time and content of last meal. Glucose of more than 200 mg/dL in a nonstressed, ambulatory subject supports the diagnosis of Diabetes Mellitus. ADA recommended reference range Performed By: #### L ACOSAMIDE #### [facility] , Glucose [Mass/volume] in Uri ne by Test stripOrdered By: Isabella Brown on 02-11-2025 Glucose Test strip (U) [Mass/Vol] Normal mg/dL Normal [facility] Hematocrit [Volume Fraction] of Blood by Automated countOrdered By: Isabella Brown on 02-11-2025 Hematocrit (Bld) [Volume fraction] 41.4 % Normal 34.0-46.4 [facility] Comment on above: Performed By: #### C UU #### [facility] [address] Hemoglobin Test strip Ql (U) Ordered By: Isabella Brown on 02-11-2025 Hemoglobin Ql (U) Negative Negative [facility] Hemoglobin [Mass/volume] in BloodOrdered By: Isabella Brown on 02-11-2025 Hemoglobin (Bld) [Mass/Vol] 13.3 g/dL Normal 11.8-15.4 [facility] Comment on above: Performed By: #### C UU #### [facility] [address] [place] [address] [place] Hepatic Panelon 02-11-2025 Albumin [Mass/Vol] 3.8 g/dL Normal 3.5-5.7 [facility] Comment on above: Performed By: #### L ACOSAMIDE #### [facility] , Bilirubin,Indirect 0.4 mg/dL Normal [facility] Comment on above: Performed By: #### L ACOSAMIDE #### [facility] , Bilirubin.indirect [Mass/Vol] 0.10 mg/dL Normal 0.03-0.18 [facility] Comment on above: Performed By: #### L ACOSAMIDE #### [facility] , INR in Platelet poor plasma by Coagulation assayOrdered By: Isabella Brown on 02-11-2025 INR Coag (PPP) [Relative time] 1.4 {INR} Normal [facility] Comment on above: INR Therapeutic Rang e [...] heart valves: 3 - 4.5 PERFORMED BY: [place] [address] PATHOLOGIST DISPLAY DESIGNER OBDULIO SEAMAN M.D. Performed By: #### C EA #### [facility] [address] [place] [address] Ketones [Presence] in Urine by Test stripOrdered By: Isabella Brown on 02-11-2025 Ketones Ql (U) Negative Normal Negative [facility] Comment on above: Order Comment: Name Collection Type:: Voided Performed By: #### C UU #### [facility] [address] [place] [address] [place] Lacosamideon 02-11-2025 Lacosamide Normal . [facility] Comment on above: Result Comment: Test not performed. Insufficient specimen to perform or complete analysis. Contacted: your facility 02-18-25 This test was developed and its performance characteristics determined by [employer]. It has not been cleared or approved by the Food and Drug Administration. Limit of Detection 0.5 Mean plasma concentrations following maintenance dose 200 mg/day 4.99 +/- 2.51 ug/mL 400 mg/day 9.35 +/- 4.22 ug/mL 600 mg/day 12.46 +/- 5.60 ug/mL PERFORMED BY: [place] [address] PATHOLOGIST DISPLAY DESIGNER OBDULIO SEAMAN M.D. Performed By: #### L ACOSAMIDE #### [facility] , Lactate [Moles/volume] in Se rum or PlasmaOrdered By: Isabella Brown on 02-11-2025 Lactate [Moles/Vol] 1.5 mmol/L Normal 0.5-1.9 [facility] Comment on above: Lactic Acid referenc e range has been updated to 0.5 1.9 mmol/L and the critical range of 2.0 or greater. Result Comment: Lact ic Acid reference range has been updated to 0.5 ? 1.9 mmol/L and the critical range of 2.0 or greater. PERFORMED BY: [place] [address] PATHOLOGIST DISPLAY DESIGNER OBDULIO SEAMAN M.D. Performed By: #### C UU #### [address] Lamotrigine (Lamictal)on Lamotrigine (Lamictal) 8.4 Normal 2.0-20.0 [facility] Comment on above: Result Comment: Dete ction Limit = 1.0 Performed at: - [address] [id number] Dressmaking Teacher: Erick Khalil MD, Phone: [phone] PERFORMED BY: [place] [address] PATHOLOGIST DISPLAY DESIGNER OBDULIO SEAMAN M.D. Performed By: #### L AMOT #### [facility] , Leukocyte esterase [Presence ] in Urine by Test stripOrdered By: Isabella Brown on 02-11-2025 Leukocyte esterase Test strip Ql (U) Negative Normal Negative [facility] Comment on above: Order Comment: Name Collection Type:: Voided Performed By: #### C UU #### [address] Leukocytes [#/volume] correc pilar for nucleated erythrocytes in Blood by Automated counOrdered By: Isabella Brown on 02-11-2025 WBC corrected for nucl RBC Auto (Bld) [#/Vol] 10.6 10*3/uL 3.8-11.6 [facility] Leukocytes [#/volume] in Blo od by Automated countOrdered By: Isabella Brown on 02-11-2025 WBC (Bld) [#/Vol] 10.6 10*3/uL Normal 3.8-11.6 [facility] Comment on above: Performed By: #### C UU #### [facility] [address] [place] [address] [place] Lipase [Enzymatic activity/v olume] in Serum or PlasmaOrdered By: Isabella Brown on 02-11-2025 Lipase [Catalytic activity/Vol] 14.0 U/L Normal 11.0-82.0 [facility] Comment on above: Result Comment: PERF ORMED BY: [place] [address] PATHOLOGIST DISPLAY DESIGNER OBDULIO SEAMAN M.D. Performed By: #### L ACOSAMIDE #### [facility] , Lymphocytes [#/volume] in Bl ood by Automated countOrdered By: Isabella Brown on 02-11-2025 Lymphocytes (Bld) [#/Vol] 2.3 10*3/uL Normal 1.00-4.8 [facility] Comment on above: Performed By: #### C UU #### [place] [address] [place] Lymphocytes/100 leukocytes i n Blood by Automated countOrdered By: Isabella Brown on 02-11-2025 Lymphocytes/100 WBC (Bld) 21.9 % Normal . [facility] Comment on above: Performed By: #### C UU #### [facility] [address] MCH [Entitic mass] by Automa pilar countOrdered By: Isabella Brown on 02-11-2025 MCH (RBC) [Entitic mass] 27.0 pg Normal 24.7-34.3 [facility] Comment on above: Performed By: #### C UU #### [facility] [address] MCHC Auto (RBC) [Mass/Vol]Or dered By: Isabella Brown on 02-11-2025 MCHC (RBC) [Mass/Vol] 32.2 g/dL 32.0-35.0 [facility] MCV [Entitic volume] by Auto mated countOrdered By: Isabella Brown on 02-11-2025 MCV (RBC) [Entitic vol] 84.0 fL Normal 80-100 [facility] Comment on above: Performed By: #### C UU #### [facility] [address] Monocyte distribution width [Entitic volume] in Blood by AutomatedOrdered By: Isabella Brown on 02-11-2025 Monocyte distribution width Auto (Bld) [Entitic vol] 16.76 % 0.00-20.00 [facility] Monocytes [#/volume] in Bloo d by Automated countOrdered By: Isabella Brown on 02-11-2025 Monocytes (Bld) [#/Vol] 0.9 10*3/uL High 0.0-0.8 [facility] Comment on above: Performed By: #### C UU #### [facility] [address] [place] [address] [place] Monocytes/100 leukocytes in Blood by Automated countOrdered By: Isabella Brown on 02-11-2025 Monocytes/100 WBC (Bld) 8.7 % Normal . [facility] Comment on above: Performed By: #### C UU #### [facility] [address] [place] [address] [place] Neutrophils [#/volume] in Bl ood by Automated countOrdered By: Isabella Brown on 02-11-2025 Neutrophils (Bld) [#/Vol] 7.2 10*3/uL Normal 1.8-7.7 [facility] Comment on above: Performed By: #### C UU #### [facility] [address] [place] [id number] [place] Neutrophils/100 leukocytes i n Blood by Automated countOrdered By: Isabella Brown on 02-11-2025 Neutrophils/100 WBC (Bld) 68.2 % Normal . [facility] Comment on above: Performed By: #### C UU #### [facility] [address] Nitrite Test strip Ql (U)Ord ered By: Isabella Brown on 02-11-2025 Nitrite Ql (U) Negative Negative [facility] No Panel InformationOrdered By: Isabella Brown on 02-11-2025 Arterial Blood Base Excess -3.6 mmol/L Low -3.0-3.0 [facility] Arterial Blood Oxygen Content 7.3 mmol/L 6.6-9.7 [facility] Arterial Blood Oxygen Saturation 90.4 % Low 95.0-100.0 [facility] Arterial Blood Partial Pressure CO2 49.2 mm[Hg] High 35.0-45.0 [facility] Arterial Blood Partial Pressure O2 63.2 mm[Hg] Low 80.0-100.0 [facility] Arterial Blood pH 7.29 Low 7.35-7.45 [facility] Blood Gas Critical Value See comment [facility] Comment on above: Critical Value chaves d on: 02/11/2025 at 14:29 Blood Gas Liter Flow 1.5 L/min [facility] Blood Gas Sample Site Left brachial [facility] FiO2 28 % [facility] Oxygen Delivery Device Nasal cannula [facility] Estimated GFR (CKD-EPI) 50.092 mL/Min [facility] Creatinine Clearance (Chem 38.80 [facility] Nucleated erythrocytes [Pres ence] in Blood by Automated countOrdered By: Isabella Brown on 02-11-2025 Nucleated RBC Auto Ql (Bld) 0.0 /100{WBC} 0-0.5 [facility] Platelet mean volume [Entiti c volume] in Blood by Automated countOrdered By: Isabella Brown on 02-11-2025 Platelet mean volume (Bld) [Entitic vol] 8.0 fL Normal 6.3-10.7 [facility] Comment on above: Performed By: #### C UU #### [facility] [address] [place] [address] Platelets [#/volume] in Bloo d by Automated countOrdered By: Isabella Brown on 02-11-2025 Platelets (Bld) [#/Vol] 367 10*3/uL Normal 150-450 [facility] Comment on above: Performed By: #### C UU #### [facility] [address] [place] [address] Potassium [Moles/volume] in Serum or PlasmaOrdered By: Isabella Brown on 02-11-2025 Potassium [Moles/Vol] 3.6 mmol/L Normal 3.5-5.1 [facility] Comment on above: Performed By: #### L ACOSAMIDE #### [facility] , Prolactinon 02-11-2025 Prolactin 35.66 ng/mL High 2.74-19.64 [facility] Comment on above: Result Comment: PERF ORMED BY: [place] [address] PATHOLOGIST DISPLAY DESIGNER OBDULIO SEAMAN M.D. Performed By: #### L ACOSAMIDE #### [facility] , Prolactin [Mass/volume] in S [place] or PlasmaOrdered By: Isabella Brown on 02-11-2025 Prolactin [Mass/Vol] 35.66 ng/mL High 2.74-19.64 [facility] Protein Test strip (U) [Mass /Vol]Ordered By: Isabella Brown on 02-11-2025 Protein (U) [Mass/Vol] Negative Negative [facility] Protein [Mass/volume] in Ser um or PlasmaOrdered By: Isabella Brown on 02-11-2025 Protein [Mass/Vol] 6.4 g/dL Normal 6.4-8.9 [facility] Comment on above: Performed By: #### L ACOSAMIDE #### [facility] , Prothrombin time (PT)Ordered By: Isabella Brown on 02-11-2025 PT Coag (PPP) [Time] 16.0 s High 9.0-12.9 [facility] Comment on above: A hematocrit value g reater than 55% may lead to inaccurate results in coagulation testing. Patients having hematocrit values >55% require a special collection tube for coagulation studies. Please contact the laboratory at [phone] for redraw instructions. Result Comment: A he matocrit value greater than 55% may lead to inaccurate results in coagulation testing. Patients having hematocrit values >55% require a special collection tube for coagulation studies. Please contact the laboratory at [phone] for redraw instructions. Performed By: #### C EA #### [facility] [address] [place] [address] [place] Salicylateon 02-11-2025 Salicylate <1.5 Low 15.0-30.0 [facility] Comment on above: Result Comment: Odette ents treated with Sulfasalazine may generate a false high result for Salicylate. Performed By: #### C UU #### [facility] [address] Salicylates [Mass/volume] in Serum or PlasmaOrdered By: Isabella Brown on 02-11-2025 Salicylates [Mass/Vol] mg/dL Low 15.0-30.0 [facility] Comment on above: Patients treated wit h Sulfasalazine may generate a false high result for Salicylate. Serum globulin measurement b y calculation (mass/volume)Ordered By: Isabella Brown on 02-11-2025 Globulin (S) [Mass/Vol] 2.6 g/dL Normal [facility] Comment on above: Performed By: #### L ACOSAMIDE #### [facility] , Serum or plasma albumin/glob ulin mass ratioOrdered By: Isabella Brown on 02-11-2025 Albumin/Globulin [Mass ratio] 1.5 {ratio} Normal [facility] Comment on above: Performed By: #### L ACOSAMIDE #### [facility] , Serum or plasma anion gap de terminationOrdered By: Isabella Brown on 02-11-2025 Anion gap [Moles/Vol] 12.3 mmol/L Normal 6.0-15.0 [facility] Comment on above: Performed By: #### L ACOSAMIDE #### [facility] , Serum or plasma ethanol josemanuel urement (mass/volume)Ordered By: Isabella Brown on 02-11-2025 Ethanol [Mass/Vol] TNP [facility] Comment on above: Test not performed Serum or plasma non-glucuron idated bilirubin measurement (mass/volume)Ordered By: Isabella Brown on 02-11-2025 Bilirubin.indirect [Mass/Vol] 0.4 mg/dL [facility] Sodium [Moles/volume] in Ser um or PlasmaOrdered By: Isabella Brown on 02-11-2025 Sodium [Moles/Vol] 141 mmol/L Normal 136-145 [facility] Comment on above: Performed By: #### L ACOSAMIDE #### [facility] , Specific gravity Test strip (U) [Rel density]Ordered By: Isabella Brown on 02-11-2025 Specific gravity (U) [Rel density] 1.038 High 1.001-1.03 0 [facility] Thyrotropin [Units/volume] i n Serum or PlasmaOrdered By: Isabella Brown on 02-11-2025 TSH Qn 2.73 m[IU]/L Normal 0.45-5.33 [facility] Comment on above: Performed By: #### L ACOSAMIDE #### [facility] , Thyroxine (T4) free [Mass/vo lume] in Serum or PlasmaOrdered By: Isabella Brown on 02-11-2025 Free T4 [Mass/Vol] 1.06 ng/dL Normal 0.61-1.12 [facility] Comment on above: Performed By: #### L ACOSAMIDE #### [facility] , Troponin I High Sensitivityo n 02-11-2025 Troponin I High Sensitivity 4 Normal 0-15 [facility] Comment on above: Result Comment: The Troponin units of report have been changed to meet the Chest Pain Accreditation requirement, element EC5.M1l2. Troponin units are changed from pg/ml to ng/L. Also, the decimal is removed and results are in whole numbers. PERFORMED BY: [place] [address] PATHOLOGIST DISPLAY DESIGNER OBDULIO SEAMAN M.D. Performed By: #### P ATH TO [facility] #### [address] Troponin I High Sensitivity 3 Normal 0-15 [facility] Comment on above: Result Comment: The Troponin units of report have been changed to meet the Chest Pain Accreditation requirement, element EC5.M1l2. Troponin units are changed from pg/ml to ng/L. Also, the decimal is removed and results are in whole numbers. PERFORMED BY: [place] [address] PATHOLOGIST DISPLAY DESIGNER OBDULIO SEAMAN M.D. Performed By: #### L ACOSAMIDE #### [facility] , Troponin I.cardiac [Mass/vol ume] in Serum or Plasma by Detection limit <= 0.01 ng/mLOrdered By: Isabella Brown on 02-11-2025 Troponin I.cardiac DL <= 0.01 ng/mL [Mass/Vol] 4 ng/L 0-15 [facility] Comment on above: The Troponin units o f report have been changed to meet the Chest Pain Accreditation requirement, element EC5.M1l2. Troponin units are changed from pg/ml to ng/L. Also, the decimal is removed and results are in whole numbers. Urea nitrogen [Mass/volume] in Serum or PlasmaOrdered By: Isabella Brown on 02-11-2025 Urea nitrogen [Mass/Vol] 11 mg/dL Normal 7-25 [facility] Comment on above: Performed By: #### L ACOSAMIDE #### [facility] , Urinalysison 02-11-2025 Bilirubin,Urine Negative Normal Negative [facility] Comment on above: Order Comment: Name Collection Type:: Voided Performed By: #### C UU #### [address] Glucose Ql (U) Normal Normal Normal [facility] Comment on above: Order Comment: Name Collection Type:: Voided Performed By: #### C UU #### [place] [address] [place] Nitrite,Urine Negative Normal Negative [facility] Comment on above: Order Comment: Name Collection Type:: Voided Performed By: #### C UU #### [address] Occult Blood,Urine Negative Normal Negative [facility] Comment on above: Order Comment: Name Collection Type:: Voided Result Comment: PERF ORMED BY: [place] [address] PATHOLOGIST DISPLAY DESIGNER OBDULIO SEAMAN M.D. Performed By: #### C UU #### [address] Protein,Urine Negative Normal Negative [facility] Comment on above: Order Comment: Name Collection Type:: Voided Performed By: #### C UU #### [address] Specificy [place],Urine 1.038 High 1.00 1-1.03 0 [facility] Comment on above: Order Comment: Name Collection Type:: Voided Performed By: #### C UU #### [address] Urobilinogen,Urine Normal Normal Normal [facility] Comment on above: Order Comment: Name Collection Type:: Voided Performed By: #### C UU #### [address] Urobilinogen Test strip (U) [Mass/Vol]Ordered By: Isabella Brown on 02-11-2025 Urobilinogen (U) [Mass/Vol] Normal mg/dL Normal [facility] X-ray reportOrdered By: Neyda Salazar on 02-11-2025 Study report [facility] Main [address] [address] XRay Report Signed Patient: Bhupendra Rubi MR#: [id number] : 1950 Acct:[id number] Age/Sex: 74 / F ADM Date: 5 [...] Salazar M.D. 02/11/2025 1:38 PM Dictation Location: [place] [address] Transcribed By: [facility] 02/11/25 133 Dictated By: Neyda Salazar II, MD 02/11/251334 Signed By: 02/11/251337 [facility] Work Phone: XR chest 1V portableon 02-11 XR chest 1V portable [facility] Main [address] [address] XRay Report Signed Patient: Bhupendra Rubi MR#: [id number] : 1950 Acct:[id number] Age/Sex: 74 / F ADM Date: 02/11/25 [...] Salazar M.D. 02/11/2025 1:38 PM Dictation Location: [place] [address] Transcribed By: [facility] 02/11/25 1338 Dictated By: Neyda Salazar II, MD 02/11/251334 Signed By: 02/11/25 1338 Normal [facility] pH of Urine by Test stripOrd ered By: Isabella Brown on 02-11-2025 pH (U) 7.5 [pH] Normal 5.0-9.0 [facility] Comment on above: Order Comment: Name Collection Type:: Voided Performed By: #### C UU #### [facility] [address] [place] [address] Main [place] Intraoperative Recor don 02-09-2025 Main OR Intraoperative Record Main [place] Intraoperative Record IntraOp Document Type FT Summary Primary Physician: Moises FARFAN, Arden Fisher Finalized Date/Time: 02/09/25 10:55:42 Pt. Name: BHUPENDRA RUBI/Sex: 1950 Female Med Rec #: [id number] Physician: Arden De Leon MD Financial #: [id number] Pt. Type: O Room/Bed: / Admit/Disch: 02/08/25 09:14:26 - 02/08/25 23:59:59 Institution: Case Times FT Entry 1 Patient Times In Room 02/08/25 10:44:00 Out Room 02/08/25 10:55:00 Procedure Times Start 02/08/25 10:48:00 Stop 02/08/25 10:52:00 Anesthesia Times Start 02/08/25 10:44:00 Stop 02/08/25 10:55:00 Last Modified By: Ning LOVETT, Soledad Castillo 02/08/25 10:55:58 Case Attendance FT Entry 1 Entry 2 Entry 3 Case Attendee Georgina GAITAN, Mary Barclay RN, Rosita Stubbs Role Performed DRUM HANDLER Internal Controls Analyst - Primary Scrub - Primary Time In 02/08/25 10:44:00 02/08/25 10:44:00 02/08/25 10:44:00 Time Out 02/08/25 10:55:00 02/08/25 10:55:00 02/08/25 10:55:00 Procedure EGD(.) EGD(.) EGD(.) Comments Dr. Robert supervising procedure. Last Modified By: Kianna Garcia CST, RN, Soledad Barclay RN, Soledad Castillo 02/09/25 10:53:01 02/08/25 10:56:00 02/08/25 10:56:00 Entry 4 Case Attendee Arden De Leon MD Role Performed Surgeon - Primary Time In 02/08/25 10:44:00 Time Out 02/08/25 10:55:00 Procedure EGD(.) Comments Last Modified By: Ning LOVETT, Soledad Castillo 02/08/25 10:56:00 Perioperative Protocols FT Pre-Care Text: [...] Time Out Mary Erickson CRNA, Given Participants Soledad Barclay RN, Miles, Kirstyn K, Moises FARFAN, Arden Fisher Time [...] duodenal biopsy. Primary Procedure Yes Primary Surgeon Moises FARFAN, Arden Fisher Start 02/08/25 10:48:00 Stop 02/08/25 10:52:00 Anesthesia [...] and tissue Entry 1 Skin Integrity Intact, [place], Warm, & Skin Abnormality No Dry Outcomes Met? Yes Last Modified By: Ning LOVETT, Soledad Castillo 02/08/25 10:47:02 Post-Care Text: The patient is [...] Strap, Pillow (more content not included)... Normal [facility] Discharge Instructionson Discharge Instructions Discharge Instruc tions [...] after Discharge Follow Up with Moises FARFAN, LUZMA Sheehan, MED When: Comments: call office regarding follow up Where: [address] [place] [address], [address] [place] [address]- [phone] Medications What How Much When Why Instructions [...] your heal (more content not included)... Normal [facility] Comment on above: Result Comment: Elec tronically [...] spasm, # 80 tab(s), Refills(s) 0, Pharmacy: [facility], 159, cm, 01/30/25 12:14:00 EDT, Height/Length Dosing, 63.6, kg, 01/30/25 12:14:00 EDT, Weight Dosing Trulance 3 mg oral tablet: 3 mg = 1 tab(s), Oral, Daily, # 30 tab(s), Refills(s) 6, Pharmacy: [facility], 159, cm, 01/30/25 12:14:00 EDT, Height/Length Dosing, 63.6, kg, 01/30/25 12:14:00 EDT, Weight Dosing esomeprazole 40 mg Cap-EC: 40 mg = 1 cap(s), Oral, Daily, # 90 cap(s), Refills(s) 0, Pharmacy: [facility], 159, cm, 12/24/22 10:00:00 EDT, Height/Length [...] All Problems Acid reflux / SNOMED CT 103216712 / Confirmed Bilateral flank pain / SNOMED CT 677587702 / Confirmed Bloating / SNOMED CT 272844863 / Confirmed Chronic constipation / SNOMED CT 105699533 / Confirmed Dysuria / SNOMED CT 05205950 / Confirmed Heart disease / SNOMED CT 18530769 / Confirmed History of colon polyps / SNOMED CT 4410620988 / Confirmed History of prolapse of bladder / SNOMED CT 844122910 / Confirmed Hyperlipidemia / SNOMED CT 99309742 / Confirmed Hypertension / SNOMED CT 3540463883 / Confirmed Infrequent urination / SNOMED CT 623262517 / Confirmed Mixed incontinence / SNOMED CT 33533606 / Confirmed Personal history of transient ischemic attack / SNOMED CT 3095087190 / Confirmed Straining during bowel movements / SNOMED CT 00797231 / Confirmed Stress-related physiological response affecting medical condition / SNOMED CT 14409401 / Confirmed Tobacco use / SNOMED CT 2069254076 / Confirmed Upper abdominal pain / SNOMED CT 837629109 / Confirmed, Active Problems (17) Acid reflux [...] history: Introduction of tension free vaginal tape (250794008) in 1989 at 39 Years. Hysterectomy (536716620). Cholecystectomy (52522473). Rotator cuff (43834323). Colonoscopy (680582342). Physical Examination Vital Signs (last 24 hrs) Last Charted Temp Temporal 36.7 DegC (FEB 08 09:28) Heart Rate Monitored 93 bpm (FEB 08) Resp Rate 18 br/min (FEB 08) SBP 128 mmHg (FEB 08:) DBP 78 mmHg (FEB 08) Weight 63.6 kg (FEB 08) BMI 25.16 (FEB 08) General: in Nad Abdomen: Soft, NTND Impression and Plan Diagnosis: Epigastric pain -EGD Normal [facility] Comment on above: Result Comment: Elec tronically Signed By: Arden De Leon MD\.br\Date and Time Signed: 02/08/25 10:28 EDT Main OR PACU I Recordon 01-12 Main OR PACU I Record Main OR PACU I Rec ord PACU Phase I Document Type FT Summary Primary Physician: Arden De Leon MD Finalized Date/Time: 02/08/25 12:27:47 Pt. Name: BHUPENDRA RUBI/Sex: 1950 Female Med Rec #: [id number] Physician: Arden De Leon MD Financial #: [id number] Pt. Type: O Room/Bed: / Admit/Disch: 02/08/25 [...] By: Zoila Morel RN 02/08/25 12:27 Normal [facility] Main OR Preoperative Recordo n 02-08-2025 Main OR Preoperative Record Main OR Preoperative Record Holding Area Document Type FT Summary Primary Physician: Arden De Leon MD Finalized Date/Time: 02/08/25 09:34:56 Pt. Name: BHUPENDRA RUBI/Sex: 1950 Female Med Rec #: [id number] Physician: Arden De Leon MD Financial #: [id number] Pt. Type: O Room/Bed: / Admit/Disch: 02/08/25 [...] By: Umang Borrego RN 02/08/25 09:34 Normal [facility] Operative Reporton Operative Report Operative Report Patient: [...] spasm, # 80 tab(s), Refills(s) 0, Pharmacy: [facility], 159, cm, 01/30/25 12:14:00 EDT, Height/Length Dosing, 63.6, kg, 01/30/25 12:14:00 EDT, Weight Dosing Trulance 3 mg oral tablet: 3 mg = 1 tab(s), Oral, Daily, # 30 tab(s), Refills(s) 6, Pharmacy: [facility], 159, cm, 01/30/25 12:14:00 EDT, Height/Length Dosing, 63.6, kg, 01/30/25 12:14:00 EDT, Weight Dosing esomeprazole 40 mg Cap-EC: 40 mg = 1 cap(s), Oral, Daily, # 90 cap(s), Refills(s) 0, [facility], cm, 12/24/22 10:00:00 EDT, Height/Length Dosing, [...] bulb status post biopsies. Images Procedure images: Rec_hd_video_ 0__52_661.jpg Rec_hd_video_ 0__15_913.jpg Rec_hd_video_ 0__53_849.jpg Rec_hd_video_ 0__57_988.jpg Rec_hd_video_ 0__056.jpg Rec_hd_video_ 0__585.jpg Rec1_hd_video_ 0__45_367.jpg Rec1_hd_video_ 0__750.jpg Rec1_hd_video_ 0__731.jpg . Post-Procedure Complications: none. Estimated blood loss: minimal. Specimens: sent to pathology. Devices/ implants: none left in place. Impression and Plan hiatal hernia Fundic polyp status post resection Gastropathy Duodenitis Recommendations: -Resume previous diet -Resume home medications -Await pathology results, follow in GI clinic in 1-2 after discharge [facility] Comment on above: Result Comment: Elec tronically Signed By: Moises FARFAN, Arden Caraballo.br\Date and Time Signed: 02/08/25 10:54 EDT Other Comment: Jyoti parks Attachment - attachment storage system not supported [id number] Can be viewed in source systemMissshaw hospital Attachment - attachment storage system not supported [id number] Can be viewed in source systemM[facility]indred [facility] Attachment - attachment storage system not supported 5162605 Can be viewed in source systemMiFioshaw hospital Attachment - attachment storage system not supported 0514059 Can be viewed in source systemMiFioshaw hospital Attachment - attachment storage system not supported 6073192 Can be viewed in source systemMiFioshaw hospital Attachment - attachment storage system not supported 3874723 Can be viewed in source systemMiJethroData Attachment - attachment storage system not supported 0834632 Can be viewed in source systemMiJethroData Attachment - attachment storage system not supported 8609180 Can be viewed in source systemMiFioshaw hospital Attachment - attachment storage system not supported 1525291 Can be viewed in source system Gastroenterology [...] AORTIC ANEURYSM. NO ACUTE FINDINGS. Colonoscopy @ [facility] 06/22/24 Impression: Unremarkable examination of the site [...] previous colonoscopy over 10 years ago in [place] that was reportedly showed polyps- no record [...] spasm, # 80 tab(s), Refills(s) 0, Pharmacy: [facility], 159, cm, 01/30/25 12:14:00 EDT, Height/Length Dosing, 63.6, kg, 01/30/25 12:14:00 EDT, Weight Dosing plecanatide, 3 mg = 1 tab(s), Oral, Daily, # 30 tab(s), Refills(s) 6, Pharmacy: [facility], 159, cm, 01/30/25 12:14:00 EDT, Height/Length Dosing, 63.6, kg (more content not included)... Normal [facility] Comment on above: Result Comment: Elec tronically Signed By: Moises FARFAN, Arden Caraballo.holger\Date and Time Signed: 01/30/25 12:[address] chest wo conon 01-16-2025 CT chest wo con [facility] Main [place] [address] [place] [address] CT Scan Report Signed Patient: Bhupendra Rubi MR#: [id number] : 1950 Acct:[id number] Age/Sex: 74 / F ADM Date: 01/16/25 Loc: XT Room: Type: [facility] Attending Dr: Judit Martini MD Copies to: MD Hipolito Potter, OUMAR Martini MD Ordering Provider: Hipolito Shah APRN Date [...] Berger M.D. 01/16/2025 2:45 PM Dictation Location: [place] [address] Transcribed By: JOSE MIGUEL 01/16/25 1445 Dictated By: Adam Berger DO 01/16/25 143 Signed By: 01/16/25 1445 Normal [facility] US aortaon 01-04-2025 [place] [address] Ultrasound Report Signed Patient: Bhupendra Rubi MR#: [id number] : 1950 Acct:[id number] Age/Sex: 74 / F ADM Date: 01/04/25 Loc: [facility] Room: Type: [facility] Attending Dr: Adam Keller MD Ordering Provider: [...] Valladares MD,FACS,FSVS 01/04/2025 2:59 PM Dictation Location: [place] [address] Tech: Yakelin Gibson Transcribed By: JOSE MIGUEL 01/04/25 145 Dictated By: Nigel Valladares MD 01/04/25 145 Signed By: 01/04/25 145 Normal [facility] CT ABDOMEN PELVIS W CONon The [address] [address] [address] Scan Report Signed Patient: BHUPENDRA RUBI MR#: [id number] : 1950 Acct:[id number] Age/Sex: 74 / F ADM Date: 12/29/24 Loc: CT Attending Dr: Wendy Burden NP Ordering Physician: Wendy Burden NP Date of Service: 12/29/24 Procedure(s): CT abdomen pelvis w con Accession Number(s): [id number] cc: Wendy Burden NP [address] [address] Patient Name: BHUPENDRA RUBI MRN: [id number] date: 1950 Sex: F Assigned Patient Location: CT Current Patient Location: CT Accession/Order Number: [id number] Exam Date: 12/29/2024 10:36 Report Date: 12/29/2024 [...] Brar M.D. 12/29/2024 11:00 AM Dictation Location: [place] [address] Electronically authenticated by: [id number] Y Date: 12/29/2024 11:00 Dictated By: Darshana Brar M.D. Signed By: 12/29/24 1103 DD/ 1100 TD/TT: Wound Care Rn: [facility] Radiology, Radiologmarty crawford MD - 12/29/2024 [place] [address] CT Scan Report Signed Patient: BHUPENDRA RUBI MR#: [id number] : 1950 Acct:[id number] Age/Sex: 74 / F ADM Date: 12/29/24 Loc: CT Attending Dr: Wendy Burden NP Ordering Physician: Wendy Burden NP Date of Service: 12/29/24 Procedure(s): CT abdomen pelvis w con Accession Number(s): [id number] cc: Wendy Burden NP The [place] [address] Patient Name: HBUPENDRA RUBI MRN: [facility]:[id number] date: 1950 Sex: F Assigned Patient Location: CT Current Patient Location: CT Accession/Order Number: [id number] Exam Date: 12/29/2024 10:36 Report Date: 12/29/2024 [...] Brar M.D. 12/29/2024 11:00 AM Dictation Location: [place] [address] Electronically authenticated by: [id number] Y Date: 12/29/2024 11:00 Dictated By: Darshana Brar M.D. Signed By: 12/29/24 1103 DD/ 1100 TD/TT: Wound Care Rn: [facility] Radiology Study observation (narrative) [facility] CT ABDOMEN PELVIS W CONOrder ed By: Radiologist Radiology on 12-29-2024 [facility] Work Phone: Urine Cultureon 12-22-2024 Bacteria identified Cx Nom (U) 75,000 colonies/ml mixed bacterial skin contaminants 2 Days PERFORMED BY: [place] [address] PATHOLOGIST DISPLAY DESIGNER OBDULIO SEAMAN M.D. [facility] Comment on above: Performed By: #### C UU #### [address] Urine cultureOrdered By: Isabel Burden on 12-22-2024 Bacteria identified Cx Nom (U) 2 Days [facility] 36on 12-15-2024 36 Message left for pat ient to call and schedule a 6 month follow up Colonoscopy with Dr. Florinda Sandoval. She is s/p Colonoscopy with EMR Normal [facility] Telephoneon 12-15-2024 Telephone [phone] Maximiliano Rubi 1950 F Date Provider Department Center 12/15/2024 [facility]MARTELL ROJO [facility] Family History Problem Relation Age of Onset Lung cancer Mother Other Sister Family Status - Relation Status Age at Mother Sister Normal [facility] ALL CBC WITH AUTO DIFFon BASOPHILS ABSOLUTE AUTO 0.1 [facility] Basophils/100 WBC (Bld) 0.7 % 0.2 [...] Healthcare MCH (RBC) [Entitic mass] 28.2 pg 26.7 - 34.0 pg [facility] MCHC (RBC) [Mass/Vol] 31.9 g/dL 29.9 - 35.2 g/dL [facility] MCV (RBC) [Entitic vol] 88.4 fL 81.0 - 99.0 fL [facility] MONOCYTES ABSOLUTE AUTO 1 High [facility] Monocytes/100 WBC (Bld) 9.3 % 1.7 - 12.0 % [facility] NEUTROPHILS ABSOLUTE AUTO 6.7 High [facility] Neutrophils/100 WBC (Bld) 62.4 % 43.0 - 75.0 % [facility] Platelet mean volume (Bld) [Entitic vol] 9.8 fL 9.5 - 13.5 fL [facility] TB EO # 0.1 [facility] TB PLT 375 [facility] RBC 4.83 [facility] WBC 10.7 [facility] Urine Cultureon 10-04-2024 Bacteria identified Cx Nom (U) ORGANISM: Klebsiella pneumoniae (O:KLEPNE) [place] Count >100,000 Aerobic BAILEE Charge (NMIC56) SUSCEPTIBILITY [...] RESISTANT TO ALL B-LACTAM DRUGS. PERFORMED BY: [facility] [address] [place] [address] PATHOLOGIST DISPLAY DESIGNER DIANA CRUZ M.D. Normal [facility] Comment on above: Performed By: #### C UU #### [facility] [address] Urine cultureOrdered By: Amanda lucila Cordero on 10-04-2024 Bacteria identified Cx Nom (U) Abnormal [facility] HISTOLOGY - TISSUE EXAMon LAB AP CASE REPORT Normal Doug duron [facility] Comment on above: Result Comment: Surg ical Pathology Case: [id number] Authorizing Provider: Florinda Sandoval MD Collected: 06/21/2024 1421 Ordering Location: [facility] [place] Received: 06/21/2024 150[facility] Pathologist: Alexandrea Bonds MD Specimens: A) - Large Intestine, Right/Ascending Colon, polyp across to tatto site B) - Large Intestine, Right/Ascending Colon, polyp adjcent to tatto site C) - Large Intestine, Right/Ascending Colon, polypectomy site bx r/o adenoma D) - Large Intestine, Hepatic Flexure Performed By: #### L [id number] ####[facility] LAB (BEAKER)[address] [place] [address] LAB AP CLINICAL INFORMATION Order Diagnoses Normal [facility] Comment on above: Result Comment: K63. 5 - Polyp of ascending colon, unspecified type [ICD-10-CM] K63.89 - Colonic mass [ICD-10-CM] Performed By: #### L [id number] ####[facility] (BEAKER)[address] [place] [address] LAB AP GROSS DESCRIPTION Normal [facility] Comment on above: Result Comment: A. [...] in a container labeled Bhupendra Rubi and polypectomy site bx r/o adenoma. It consists of four chandler-so, ragged soft tissue fragments, 0.1 to 1.1 cm in greatest dimension. The specimen is submitted entirely in 1 cassette. Carrie Abdalla, student fellow D. Large Intestine, Hepatic Flexure. The specimen is received in formalin in a container labeled Bhupendra Rubi and unspecified. It consists of 6 chandler-so, irregular, focally erythematous soft tissue fragments, 0.1 to 0.6 cm in greatest dimension. The specimen is submitted entirely in 1 cassette. Carrie Abdalla, student fellow Performed By: #### L [id number] ####[facility] (BEAKER)[address] [place] [address] LAB AP MICROSCOPIC DESCRIPTION Microscopic examination performed. [facility] Comment on above: Performed By: #### L [id number] ####[facility] LAB (BEAKER)[address] [place] [address] LAB AP REPORT FINAL DIAGNOSIS NARRATIVE [facility] Comment on above: Result Comment: A. C olon, ascending polyp across tattoo site, biopsy: - Tubular adenoma B. Colon, ascending polyp adjacent to tattoo site, biopsy: - Tubular adenoma C. Colon, ascending polypectomy site, biopsy: - Benign colonic mucosa - No evidence of dysplasia D. Colon, hepatic flexure polyp, biopsy: - Hyperplastic polyp Performed By: #### L [id number] ####[facility] (BEAKER)[address] [place] [address] HPon 06-21-2024 HP History Of Present I [...] I pers (more content not included)... Normal [facility] POCT GLUCOSE METER UNSOLICIT ED RESULTSon 06-21-2024 Glucose [Mass/Vol] 106 mg/dL High 70-105 [facility] Comment on above: Order Comment: Waive d Testing in the ED is performed under the ED CLIA certificate #[id number]. Result Comment: jhag eman Performed By: #### L [id number] #### [facility] ([facility]) [address] [place] [address] Telephoneon 06-15-2024 Telephone [id number] Maximiliano Rubi M 1950 F Date Provider Department Center 06/15/2024 [id number] LACY DCC ONC DCC Family History Problem Relation Age of Onset Lung cancer Mother Other Sister Family Status - Relation Status Age at Mother Sister Reason for Visit and Comments: Appointment [375] - Tried calling patient to get scheduled for F/U appt 06/16, left a voicemail twice. CJ Normal [facility] Prep for Procedureon 024 Prep for Procedure [id number] Maximiliano Rubi 1950 F Date Provider Department [place] 06/13/2024 Mckenzie-FLORINDA SANDOVAL [facility] Family History Problem Relation Age of Onset Lung cancer Mother Other Sister Family Status - Relation Status Age at Mother Sister Normal [facility] Orders Onlyon 05-27-2024 Orders Only [id number] Maximiliano Rubi M 1950 F [facility] Provider Department Center 05/27/2024 MARTELL DALLAS [facility] Family History Problem Relation Age of Onset Lung cancer Mother Other Sister Family Status - Relation Status Age at Mother Sister Normal [facility] SURGICAL PATHOLOGY REFER ENCE LAB CONSULTon 05-26-2024 [facility] CASE REPORT [facility] Comment on above: Surgical Pathology R eport Case: [id number] Authorizing Provider: Javier Villanueva Collected: 05/24/2024 11:27 AM Ordering Location: [facility] Main Received: 05/24/2024 11:26 AM [facility] Pathologist: Leroy Zayas MD, PhD Specimen: Slide(s), 16 SLIDES [id number] [facility] CLINICAL HISTORY CONSULT REQUESTED [facility] DIAGNOSIS COMMENT [facility] Comment on above: Thank you for allowi ng us the opportunity to review this case in consultation representing the colon polyp biopsies from the 73-year-old female. Per provided letter and patient note, the jelly filter tender felt the polyp was completely removed. Histologic [...] to contact the GI consultation service at [phone] with questions or if additional follow-up information becomes available. This case was reviewed in conjunction with the GI pathology fellow, Sangita Rai M.D. F FINAL DIAGNOSIS [facility] Comment on above: A. 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 - See comment. [facility] FINAL PERFORMING LAB [facility] Comment on above: Diagnostic interpret ation performed at: [facility], [address] [place] [address], [address]# [id number] Vice Chancellor: Henri Mireles MD Specimen Type: FORMALIN-FIXED PARAFFIN-EMBEDDED TISSUE SPECIMEN Ordering Facility: External Submitter Address: , , Original Ordering Provider: JAVIER VILLANUEVA [facility] 36on 05-18-2024 36 Attempted to contact patient to schedule a colonoscopy with EMR. Patient is at [facility] already today for an EBUS, and tells me she is having the colonoscopy today, attempted to explain to her the difference in the procedures but she ended up hanging up on me. Will try her tomorrow. Normal [facility] Anesthesiaon 05-18-2024 Anesthesia [id number] Maximiliano Rubi 1950 F Date Provider Department Center 05/18/202415752-[id number], ILYADebbi*[facility] OR [facility] C Family History Problem Relation Age of Onset Lung cancer Mother Other Sister Family Status - Relation Status Age at Mother Sister Normal [facility] HISTOLOGY - TISSUE EXAMon LAB AP ADDENDUM 1 Normal [facility] Comment on above: Result Comment: This case ([id number]) was sent to [facility] for PD-L1 22C3 IHC with tumor proportion score (TPS) interpretation and read by Rosie Azevedo MD. The result reads as follows: Tumor Proportion Score: 91-100% Adequacy of specimen: Adequate Addendum electronically signed by Javier Mensah MD on 06/02/2024 at 10:28 AM Performed By: #### L [id number] #### [facility] ([facility]AKER) [address] [place] [address] LAB AP ASR DISCLAIMER The interpretation of [...] the Clinical Laboratory Improvement Amendments of 1998. Normal [facility] Comment on above: Performed By: #### L [id number] #### [facility] (BEAKER) [address] [place] [address] LAB AP CASE REPORT Normal [facility] Comment on above: Result Comment: Surg ical Pathology Case: [id number] Authorizing Provider: Diana Warren MD Collected: 05/18/2024 1331 Ordering Location: [facility] Main Operating Room Received: 05/18/2024 1432 Pathologist: Javier Mensah MD Specimen: Lung, Left Upper Lobe, Left Upper Lung Mass bx r/o Cancer Performed By: #### L [id number] #### [facility] ([facility]) [address] [place] [address] LAB AP CLINICAL INFORMATION Order Diagnoses [facility] Comment on above: Result Comment: R91. 1 - Lung nodule [ICD-10-CM] Performed By: #### L [id number] #### [facility] ([facility]) [address] [place] [address] LAB AP DIAGNOSIS COMMENT [facility] Comment on above: Result Comment: Immu nohistochemical staining shows the tumor cells are positive for TTF-1 and negative for CK5/6. The controls are satisfactory. PD-L1 testing has been requested with results to follow in an addendum. There is a moderate amount of tumor present in the tissue block which may be suitable for additional ancillary testing, if clinically indicated. Performed By: #### L [id number] #### [facility] ([facility]) [address] [place] [address] LAB AP GROSS DESCRIPTION [facility] Comment on above: Result Comment: A. L chantel, Left Upper Lobe. Received in formalin labeled with the patient's name Bhupendra Rubi and left upper lung mass BX rule out cancer, is a 2.0 x 0.3 x 0.1 cm aggregate of chandler-pink, feathery soft tissue fragments. The specimen is filtered and submitted in toto in 1 cassette. Saniya Carson, Pathologists' Help Desk Intern Student Performed By: #### L [id number] #### [facility] ([facility]) [address] [place] [address] LAB AP MICROSCOPIC DESCRIPTION Microscopic examination performed. [facility] Comment on above: Performed By: #### L [id number] #### [facility] ([facility]) [address] [place] [address] LAB AP REPORT FINAL DIAGNOSIS NARRATIVE [facility] Comment on above: Result Comment: A. L chantel, left upper lobe, biopsy: -Adenocarcinoma. Preliminary result electronically signed by Javier Mensah MD on 05/20/2024 at 12:17 PM Performed By: #### L [id number] #### [facility] JEFRY ALICEA) [place] [address] HPon 05-18-2024 HP ------ -- Attestation signed by Diana Warren MD at 05/18/2024 11:17 AM Re-explained the procedure to the patient along with the associated risk of pneumothorax, bleeding, hypoxia, and respiratory failure. Patient is agreeable and will proceed with the scheduled robotic bronchoscopy, TBBx, and Ebus TBNA Diana Warren MD Interventional Pulmonary Medicine Pulmonary and Critical Care Medicine [facility] -- History Reviewed reviewed. The [...] no edema. Skin: Warm and dry. Normal [facility] NON-ARM MAKER CYTOLOGY - CELLULAR EXAMon 05-18-2024 LAB AP CASE REPORT Normal [facility] Comment on above: Result Comment: Non- gynecologic Cytology Case: [id number] Authorizing Provider: Diana Warren MD Collected: 05/18/2024 1309 Ordering Location: [facility] Main Operating Room Received: 05/19/2024 1251 Pathologist: Javier Mensah MD Specimens: A) - Lung, Left Upper Lobe B) - Lung, Left Upper Lobe C) - Lymph Node Station 7, Lymph Node Station 7 FNA D) - Lymph Node Station 4R, Lymph Node Station 4R FNA Performed By: #### L [id number] #### [facility] (BEAKER) [address] [place] [address] LAB AP CLINICAL INFORMATION Normal [facility] Comment on above: Result Comment: PET avid left upper lobe lung nodule that has increased in size (2.2 cm), 40 pack-year smoking history Performed By: #### L [id number] #### [facility] (BEAKER) [address] [place] [address] LAB AP DIAGNOSIS COMMENT Normal [facility] Comment on above: Result Comment: Ther e is a moderate amount of tumor cells present in the cell block of part A and scant tumor in the cell block of part B for additional studies, if clinically indicated. See also concurrent biopsy, [id number]. Performed By: #### L [id number] #### [facility] (BEAKER) [address] [place] [address] LAB AP GROSS DESCRIPTION Normal [facility] Comment on above: Result Comment: A. 2 air-dried slides, 2 alcohol-fixed slides, 30 mL CytoLyt with clear, red fluid and clots B. 15 mL cloudy, red fluid C. 30 mL CytoLyt with clear, pink fluid D. 30 mL CytoLyt with clear, pink fluid and white flecks Performed By: #### L [id number] #### [facility] (BEAKER) [address] [place] [address] LAB AP INTRAOPERATIVE CONSULTATION Normal [facility] Comment on above: Result Comment: A. [...] submitted.* Performed By: #### L [id number] #### [facility] ([facility]) [address] [place] [address] LAB AP MICROSCOPIC DESCRIPTION Normal [facility] Comment on above: Result Comment: A. [...] blood. Performed By: #### L [id number] #### [facility] ([facility]) [address] [place] [address] LAB AP REPORT FINAL DIAGNOSIS NARRATIVE Normal [facility] Comment on above: Result Comment: A. L chantel, Left Upper Lobe, Ion-guided fine needle aspiration: - Non-small cell carcinoma. See concurrent surgical biopsy [id number] for results of immunohistochemistry. B. Lung, Left Upper Lobe, bronchoalveolar lavage: - Non-small cell carcinoma C. Lymph Node, Station 7, EBUS-guided fine needle aspiration: - Negative for metastatic malignancy. - Cellular evidence of a lymph node. D. Lymph Node, Station 4R, EBUS-guided fine needle aspiration: - Negative for metastatic malignancy. - Cellular evidence of a lymph node. Performed By: #### L [id number] #### [facility] ([facility]) [address] [place] [address] NURSNOTEon 05-18-[address] Warren viewed c hest xray at bedside and gave production underwriter verbal permission to discharge patient home. RN reviewed discharge instructions with patient and significant other at bedside. No questions or concerns expressed at this time. Normal [facility] NURSNOTE X ray is at bedside Normal [facility] NURSNOTE STAT Portable Chest X-Ray in PACU. Follow up at [facility] with Carrol Kunz, for lab results in 2-4 weeks. May resume a Regular Diet and home medications if Chest X-Ray is normal. Normal [facility] NURSNOTE Bronch/EBUS Findings : Left Upper Lung Mass Normal [facility] POCT GLUCOSE METER UNSOLICIT ED RESULTSon 05-18-2024 Glucose [Mass/Vol] 96 mg/dL Normal 70-105 [facility] Comment on above: Order Comment: Waive d Testing in the ED is performed under the ED CLIA certificate #[id number]. Result Comment: aepp ink Performed By: #### L [id number] ####[facility] (BEAKER)[address] [place] [address] Telephoneon 05-18-2024 Telephone [id number] Maximiliano Rubi 1950 F Date Provider Department Center 05/18/2024 [facility] DALL[facility] Family History Problem Relation Age of Onset Lung cancer Mother Other Sister Family Status - Relation Status Age at Mother Sister Normal [facility] Prep for Procedureon 024 Prep for Procedure [id number] Maximiliano Rubi 1950 F Date Provider Department Center 05/12/2024 DIANA MONTANEZ [facility] Family History Problem Relation Age of Onset Lung cancer Mother Other Sister Family Status - Relation Status Age at Mother Sister Normal [facility] CT CHEST WO IV CONTRASTon CT [...] Menon MD. Not Vldtd Invalid [facility] ------ -- Attestation signed by Diana Warren [...] Age: 73 y.o. : 1950 Account No.: [id number] Referring physician: Dr. Lundberg Chief complaint: Lung [...] was initiated by the patient and conducted [id number] with use of audio-only real time telephone [...] Physical examination (more content not included)... 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 Normal [facility] CT abdomen pelvis w conon CT abdomen pelvis w con [facility] [place] [address] [place] [address] CT Scan Report Signed Patient: Bhupendra Rubi MR#: [id number] 306 : 1950 Acct:[id number] Age/Sex: 73 / F ADM Date: 04/21/24 Loc: CT Room: Type: [facility] Attending Dr: Mikhail Moon MD Copies to: Mikhail Moon MD Ordering Provider: Mikhail Moon MD Date of Service: 04/21/24 CT/CT abdomen pelvis w con: D12.6 - Benign neoplasm of colon, unspecified ([id number]) CT/CT chest w con: D12.6 - Benign [...] 12/30/2023. Impression dictated by: Napoleon Jalloh Jr., DCathyOCathy04/21/2024 4:03 PM Dictation Location: [place] [address] Transcribed By: [facility] 04/21/24 1603 Dictated By: Napoleon Jalloh Jr, DO 04/21/24 1556 Signed By: 04/21/24 1603 Normal [facility] Creatinineon 04-21-2024 GFR/1.73 sq M.predicted MDRD (S/P/Bld) [Vol rate/Area] mL/min/{1.73_m2} Normal [facility] Comment on above: Order Comment: PATHO LOGY GI SPECIMEN Result Comment: PERF ORMED BY: [place] [address] PATHOLOGIST DISPLAY DESIGNER JENNIFER ALANIZ M.D. Performed By: #### P ATH TO [facility] #### [address] Creatinine [Mass/volume] in Serum or PlasmaOrdered By: Mikhail Moon on 04-21-2024 Creatinine [Mass/Vol] 0.91 mg/dL Normal 0.60-1.20 [facility] Comment on above: Order Comment: PATHO LOGY GI SPECIMEN Performed By: #### P ATH TO [facility] #### [address] No Panel InformationOrdered By: [facility] on 04-21-2024 Estimated GFR (CKD-EPI) > 60.0 mL/Min [facility] Creatinine Clearance (Chem N/A [facility] Serum or plasma carcinoembry onic antigen measurement (mass/volume)Ordered By: [facility] on 04-21-2024 Carcinoembryonic Ag [Mass/Vol] 10.0 ng/mL High 0.0-3.0 [facility] Comment on above: Serial tumor marker results determined by assays using different manufacturers or methods may not be comparable.[facility] lockstitch collar setter and method:ANTIONE Orexo DXI, 2 SITE IMMUNOENZYMATIC SANDWICH ASSAY. Urea nitrogen [Mass/volume] in Serum or PlasmaOrdered By: [facility] on 04-21-2024 Urea nitrogen [Mass/Vol] 18 mg/dL Normal 7-25 [facility] Comment on above: Order Comment: STAT FOR CT Performed By: #### C EA #### [address] No Panel InformationOrdered By: ad [facility] on 03-25-2024 Miscellaneous Pathology Test See comment [facility] Comment on above: See report. Scanned copy available in EMR. Pathology Request for Lab Co rpon 03-25-2024 Pathology Request for Lab Crys Normal [facility] Comment on above: Order Comment: PATHO LOGY GI SPECIMEN Result Comment: See report. Scanned copy available in EMR. PERFORMED BY: [place] [address] PATHOLOGIST DISPLAY DESIGNER JENNIFER ALANIZ M.D. Performed By: #### P ATH TO [facility] #### [address] HISTOPLASMA GAL'BARB AG UR on 03-17-2024 HISTOPLASMA GAL'BARB AG UR Negative <0.2 ng/mL [facility] Comment on above: Performed at: [address] [id number] Dressmaking Teacher: Erick Khalil MD, Phone: [phone] [facility] HGB HCTon 03-09-2024 Hematocrit (Bld) [Volume fraction] 38.5 % 36.0 - 48.0 % [facility] Hemoglobin (Bld) [Mass/Vol] 12.3 g/dL 12.0 - 16.0 g/dL [facility] ALL CBC WITH AUTO DIFFon BASOPHILS ABSOLUTE AUTO 0.1 N [facility] Basophils/100 WBC (Bld) 0.9 % 0.2 - 2.0 % [facility] Eosinophils/100 WBC (Bld) 1.1 % 0.9 - 7.0 % [facility] Erythrocyte distribution width (RBC) [Ratio] 14.9 % 11.0 - 15.0 % [facility] Hematocrit (Bld) [Volume fraction] 43.8 % 36.0 - 48.0 % [facility] Hemoglobin (Bld) [Mass/Vol] 14.2 g/dL 12.0 - 16.0 g/dL [facility] IMMATURE GRANULOCYTES ABS AUTO 0.03 [facility] Immature granulocytes/100 WBC (Bld) 0.3 % 0.0 - 0.5 % [facility] Interpretation and review of laboratory results Abnormal [facility] LYMPHOCYTES ABSOLUTE AUTO 2.6 [facility] Lymphocytes/100 WBC (Bld) 23.0 % 20.5 - 60.0 % [facility] MCH (RBC) [Entitic mass] 28.8 pg 26.7 - 34.0 pg [facility] MCHC (RBC) [Mass/Vol] 32.4 g/dL 29.9 - 35.2 g/dL [facility] MCV (RBC) [Entitic vol] 88.8 fL 81.0 - 99.0 fL [facility] MONOCYTES ABSOLUTE AUTO 1.0 High N [facility] Monocytes/100 WBC (Bld) 8.5 % 1.7 - 12.0 % [facility] NEUTROPHILS ABSOLUTE AUTO 7.5 High [facility] Neutrophils/100 WBC (Bld) 66.2 % 43.0 - 75.0 % [facility] Platelet mean volume (Bld) [Entitic vol] 9.9 fL 9.5 - 13.5 fL [facility] TBH EO # 0.1 [facility] TB PLT 331 [facility] RBC 4.93 [facility] WBC 11.2 High [facility] Activated partial thrombopla stin time (aPTT) in platelet poor plasma by coagulation aOrdered By: Emmett Bhakta on 12-27-2023 aPTT Coag (PPP) [Time] 24.6 s Low 25.1-36.5 [facility] Comment on above: A hematocrit value g reater than 55% may lead to inaccurate results in coagulation testing. Patients having hematocrit values >55% require a special collection tube for coagulation studies. Please contact the laboratory at [phone] for redraw instructions. Alanine aminotransferase [En zymatic activity/volume] in Serum or PlasmaOrdered By: Emmett Bhakta on 12-27-2023 ALT [Catalytic activity/Vol] 10 U/L 7-52 [facility] Albumin [Mass/volume] in Ser um or Plasma by Bromocresol green (BCG) dye binding methoOrdered By: Emmett Bhakta on 12-27-2023 Albumin BCG dye [Mass/Vol] 4.0 g/dL 3.5-5.7 [facility] Alkaline phosphatase [Enzyma tic activity/volume] in Serum or PlasmaOrdered By: Emmett Bhakta on 12-27-2023 ALP [Catalytic activity/Vol] 105 U/L High 34-104 [facility] Aspartate aminotransferase [ Enzymatic activity/volume] in Serum or PlasmaOrdered By: Emmett Bhakta on 12-27-2023 AST [Catalytic activity/Vol] 10 U/L Low 13-39 [facility] Bacteria [Presence] in Urine sediment by Light microscopyOrdered By: Emmett Bhakta on 12-27-2023 Bacteria LM Ql (Urine sed) 1+ [HPF] High None Seen [facility] Comment on above: Microscopic results may be affected due to low specimen volume. Bacterial blood cultureOrder ed By: Emmett Bhakta on 12-27-2023 Bacteria identified Cx Nom (Bld) NO GROWTH 5 DAYS [facility] Bacteria identified Cx Nom (Bld) NO GROWTH 5 DAYS [facility] Basophils Auto (Bld) [#/Vol] Ordered By: Emmett Bhakta on 12-27-2023 Basophils (Bld) [#/Vol] 0.1 10*3/uL 0.0-0.2 [facility] Basophils/100 WBC Auto (Bld) Ordered By: Emmett Bhakta on 12-27-2023 Basophils/100 WBC (Bld) 0.6 % . [facility] Bilirubin Test strip Ql (U)O rdered By: Emmett Bhakta on 12-27-2023 Bilirubin Ql (U) Negative Negative [facility] Bilirubin.total [Mass/volume ] in Serum or PlasmaOrdered By: Emmett Bhakta on 12-27-2023 Bilirubin [Mass/Vol] 0.3 mg/dL 0.3-1.0 [facility] Calcium [Mass/volume] in Ser um or PlasmaOrdered By: Emmett Bhakta on 12-27-2023 Calcium [Mass/Vol] 9.3 mg/dL 8.6-10.3 [facility] Carbon dioxide, total [Moles /volume] in Serum or PlasmaOrdered By: Emmett Bhakta on 12-27-2023 CO2 [Moles/Vol] 26.9 mmol/L 21.0-31.0 [facility] Chloride [Moles/volume] in S [place] or PlasmaOrdered By: Emmett Bhakta on 12-27-2023 Chloride [Moles/Vol] 104 mmol/L 98-107 [facility] Color Auto (U)Ordered By: Josi Bhakta on 12-27-2023 Color (U) Yellow Yellow [facility] Creatine kinase [Enzymatic a ctivity/volume] in Serum or PlasmaOrdered By: Emmett Bhakta on 12-27-2023 CK [Catalytic activity/Vol] 41 U/L 30-223 [facility] Creatinine [Mass/volume] in Serum or PlasmaOrdered By: Emmett Bhakta on 12-27-2023 Creatinine [Mass/Vol] 0.94 mg/dL 0.60-1.20 [facility] Eosinophils Auto (Bld) [#/Vo l]Ordered By: Emmett Bhakta on 12-27-2023 Eosinophils (Bld) [#/Vol] 0.1 10*3/uL 0.0-0.45 [facility] Eosinophils/100 WBC Auto (Bl d)Ordered By: Emmett Bhakta on 12-27-2023 Eosinophils/100 WBC (Bld) 0.6 % . [facility] Epithelial cells.squamous [# /area] in Urine sediment by Microscopy high power fieldOrdered By: Emmett Bhakta on 12-27-2023 Epithelial cells.squamous LM.HPF (Urine sed) [#/Area] 5-9 [HPF] High 0-2 [facility] Comment on above: Microscopic results may be affected due to low specimen volume. Erythrocyte distribution wid th Auto (RBC) [Ratio]Ordered By: Emmett Bhakta on 12-27-2023 Erythrocyte distribution width (RBC) [Ratio] 15.6 % High 11.9-15.3 [facility] Erythrocytes [#/area] in Uri ne sediment by Microscopy high power fieldOrdered By: Emmett Bhakta on 12-27-2023 RBC LM.HPF (Urine sed) [#/Area] None seen [HPF] 0-4 [facility] Comment on above: Microscopic results may be affected due to low specimen volume. Fecal occult blood detection by immunochemistryOrdered By: Emmett Bhakta on 12-27-2023 Hemoglobin.gastrointest inal Ql (Stl) [facility] Fibrin D-dimer [Presence] in Platelet poor plasma by Latex agglutinationOrdered By: Emmett Bhakta on 12-27-2023 Fibrin D-dimer LA Ql (PPP) 480 ng/mL High 0-243 [facility] Comment on above: The reference range for [...] coagulation studies. Please contact the laboratory at [phone] for redraw instructions. Globulin Calc (S) [Mass/Vol] Ordered By: Emmett Bhakta on 12-27-2023 Globulin (S) [Mass/Vol] 2.8 g/dL [facility] Glucose [Mass/volume] in Ser um or PlasmaOrdered By: Emmett Bhakta on 12-27-2023 Glucose [Mass/Vol] 120 mg/dL High 70-100 [facility] Comment on above: ADA recommended refe rence rangeRandom Glucose Reference Range is dependent on time and content of last meal. Glucose of more than 200 mg/dL in a nonstressed, ambulatory subject supports the diagnosis of Diabetes Mellitus. Glucose [Mass/volume] in Uri ne by Test stripOrdered By: Emmett Bhakta on 12-27-2023 Glucose Test strip (U) [Mass/Vol] Normal mg/dL Normal [facility] Hematocrit Auto (Bld) [Volum e fraction]Ordered By: Emmett Bhakta on 12-27-2023 Hematocrit (Bld) [Volume fraction] 44.0 % 34.0-46.4 [facility] Hemoglobin Test strip Ql (U) Ordered By: Emmett Bhakta on 12-27-2023 Hemoglobin Ql (U) Negative Negative [facility] Hemoglobin [Mass/volume] in BloodOrdered By: Emmett Bhakta on 12-27-2023 Hemoglobin (Bld) [Mass/Vol] 14.5 g/dL 11.8-15.4 [facility] INR in Platelet poor plasma by Coagulation assayOrdered By: Emmett Bhakta on 12-27-2023 INR Coag (PPP) [Relative time] 1.0 {INR} [facility] Comment on above: INR Therapeutic Rang e [...] on 12-27-2023 Ketones Ql (U) Negative Negative [facility] Laboratory - Chemistry and C hemistry - challengeOrdered By: Emmett Bhakta on 12-27-2023 CO2 [Moles/Vol] 25.3 mmol/L 23.0-27.0 [facility] HCO3 (Bld) [Moles/Vol] 23.8 mmol/L 23.0-29.0 [facility] Lactate [Moles/volume] in Se rum or PlasmaOrdered By: Emmett Bhakta on 12-27-2023 Lactate [Moles/Vol] 1.6 mmol/L 0.5-2.2 [facility] Leukocyte esterase [Presence ] in Urine by Test stripOrdered By: Emmett Bhakta on 12-27-2023 Leukocyte esterase Test strip Ql (U) 4+ High Negative [facility] Leukocytes [#/area] in Urine sediment by Microscopy high power fieldOrdered By: Emmett Bhakta on 12-27-2023 WBC LM.HPF (Urine sed) [#/Area] 5-9 [HPF] High 0-4 [facility] Comment on above: Microscopic results may be affected due to low specimen volume. Leukocytes [#/volume] correc pilar for nucleated erythrocytes in Blood by Automated counOrdered By: Emmett Bhakta on 12-27-2023 WBC corrected for nucl RBC Auto (Bld) [#/Vol] 13.4 10*3/uL High 3.8-11.6 [facility] Lymphocytes Auto (Bld) [#/Vo l]Ordered By: Emmett Bhakta on 12-27-2023 Lymphocytes (Bld) [#/Vol] 3.7 10*3/uL 1.00-4.8 [facility] Lymphocytes/100 WBC Auto (Bl d)Ordered By: Emmett Bhakta on 12-27-2023 Lymphocytes/100 WBC (Bld) 27.4 % . [facility] MCH Auto (RBC) [Entitic mass ]Ordered By: Emmett Bhakta on 12-27-2023 MCH (RBC) [Entitic mass] 28.9 pg 24.7-34.3 [facility] MCHC Auto (RBC) [Mass/Vol]Or dered By: Emmett Bhakta on 12-27-2023 MCHC (RBC) [Mass/Vol] 33.0 g/dL 32.0-35.0 [facility] MCV Auto (RBC) [Entitic vol] Ordered By: Emmett Bhakta on 12-27-2023 MCV (RBC) [Entitic vol] 87.6 fL 80-100 [facility] Monocyte distribution width [Entitic volume] in Blood by AutomatedOrdered By: Emmett Bhakta on 12-27-2023 Monocyte distribution width Auto (Bld) [Entitic vol] 19.53 % 0.00-20.00 [facility] Monocytes Auto (Bld) [#/Vol] Ordered By: Emmett Bhakta on 12-27-2023 Monocytes (Bld) [#/Vol] 1.3 10*3/uL High 0.0-0.8 [facility] Monocytes/100 WBC Auto (Bld) Ordered By: Emmett Bhakta on 12-27-2023 Monocytes/100 WBC (Bld) 9.8 % . [facility] Natriuretic peptide B [Mass/ Vol]Ordered By: Emmett Bhakta on 12-27-2023 Natriuretic peptide B (Bld) [Mass/Vol] 32.0 pg/mL 5-100 [facility] Neutrophils Auto (Bld) [#/Vo l]Ordered By: Emmett Bhakta on 12-27-2023 Neutrophils (Bld) [#/Vol] 8.3 10*3/uL High 1.8-7.7 [facility] Neutrophils/100 WBC Auto (Bl d)Ordered By: Emmett Bhakta on 12-27-2023 Neutrophils/100 WBC (Bld) 61.6 % . [facility] Nitrite Test strip Ql (U)Ord ered By: Emmett Bhakta on 12-27-2023 Nitrite Ql (U) Negative Negative [facility] No Panel InformationOrdered By: Emmett Bhakta on 12-27-2023 Arterial Blood Base Excess -2.4 mmol/L -3.0-3.0 [facility] Arterial Blood Oxygen Content 7.5 mmol/L 6.6-9.7 [facility] Arterial Blood Oxygen Saturation 95.5 % 95.0-100.0 [facility] Arterial Blood Partial Pressure CO2 46.7 mm[Hg] High 35.0-45.0 [facility] Arterial Blood Partial Pressure O2 84.0 mm[Hg] 80.0-100.0 [facility] Arterial Blood pH 7.33 Low 7.35-7.45 [facility] Blood Gas Critical Value See comment [facility] Comment on above: Critical Value chaves d on: 12/27/2023 at 11:36 Blood Gas Liter Flow 3 L/min [facility] Blood Gas Sample Site Left radial [facility] FiO2 32 % [facility] Oxygen Delivery Device Nasal cannula [facility] Estimated GFR (CKD-EPI) > 60.0 mL/Min [facility] Creatinine Clearance (Chem 50.59 [facility] Nucleated erythrocytes [Pres ence] in Blood by Automated countOrdered By: Emmett Bhakta on 12-27-2023 Nucleated RBC Auto Ql (Bld) 0.1 /100{WBC} 0-0.5 [facility] Platelet mean volume Auto (B ld) [Entitic vol]Ordered By: Emmett Bhakta on 12-27-2023 Platelet mean volume (Bld) [Entitic vol] 8.3 fL 6.3-10.7 [facility] Platelets Auto (Bld) [#/Vol] Ordered By: Emmett Bhakta on 12-27-2023 Platelets (Bld) [#/Vol] 399 10*3/uL 150-450 [facility] Potassium [Moles/volume] in Serum or PlasmaOrdered By: Emmett Bhakta on 12-27-2023 Potassium [Moles/Vol] 3.7 mmol/L 3.5-5.1 [facility] Protein Test strip (U) [Mass /Vol]Ordered By: Emmett Bhakta on 12-27-2023 Protein (U) [Mass/Vol] Negative Negative [facility] Protein [Mass/volume] in Ser um or PlasmaOrdered By: Emmett Bhakta on 12-27-2023 Protein [Mass/Vol] 6.8 g/dL 6.4-8.9 [facility] Prothrombin time (PT)Ordered By: Emmett Bhakta on 12-27-2023 PT Coag (PPP) [Time] 11.5 s 9.0-12.9 [facility] Comment on above: A hematocrit value g reater than 55% may lead to inaccurate results in coagulation testing. Patients having hematocrit values >55% require a special collection tube for coagulation studies. Please contact the laboratory at [phone] for redraw instructions. RBC Auto (Bld) [#/Vol]Ordere d By: Emmett Bhakta on 12-27-2023 RBC (Bld) [#/Vol] 5.03 10*6/uL High 3.60-5.00 [facility] Serum or plasma albumin/glob ulin mass ratioOrdered By: Emmett Bhakta on 12-27-2023 Albumin/Globulin [Mass ratio] 1.4 {ratio} [facility] Serum or plasma anion gap de terminationOrdered By: Emmett Bhakta on 12-27-2023 Anion gap [Moles/Vol] 12.8 mmol/L 6.0-15.0 [facility] Sodium [Moles/volume] in Ser um or PlasmaOrdered By: Emmett Bhakta on 12-27-2023 Sodium [Moles/Vol] 140 mmol/L 136-145 [facility] Specific gravity Test strip (U) [Rel density]Ordered By: Emmett Bhakta on 12-27-2023 Specific gravity (U) [Rel density] 1.043 High 1.001-1.03 0 [facility] Troponin I.cardiac [Mass/vol ume] in Serum or Plasma by Detection limit <= 0.01 ng/Ordered By: Emmett Bhakta on 12-27-2023 Troponin I.cardiac DL <= 0.01 ng/mL [Mass/Vol] < 2.3 pg/mL 0.0-15.0 [facility] Urea nitrogen [Mass/volume] in Serum or PlasmaOrdered By: Emmett Bhakta on 12-27-2023 Urea nitrogen [Mass/Vol] 13 mg/dL 7-25 [facility] Urine appearanceOrdered By: Emmett Bhakta on 12-27-2023 Appearance (U) Cloudy Abnormal Clear [facility] Urine culture routineOrdered By: Emmett Bhakta on 12-27-2023 Bacteria identified Cx Nom (U) 2 Days [facility] Urobilinogen Test strip (U) [Mass/Vol]Ordered By: Emmett Bhakta on 12-27-2023 Urobilinogen (U) [Mass/Vol] Normal mg/dL Normal [facility] WBC Auto (Bld) [#/Vol]Ordere d By: Emmett Bhakta on 12-27-2023 WBC (Bld) [#/Vol] 13.4 10*3/uL High 3.8-11.6 [facility] pH Test strip (U)Ordered By: Emmett Bhakta on 12-27-2023 pH (U) 6.0 [pH] 5.0-9.0 [facility] CHEMISTRYOrdered By: SYSTEM SYSTEM on 01-01-2023 Ferritin [...] 11-11-2022 BASO # 0.1 103/ul Normal 0.0-0.1 [facility] Comment on above: Performed By: #### C BC #### [facility] [address] [place] [address] Dr. Anisa Gomez Basophils/100 WBC (Bld) 0.5 % Normal 0.2-2.0 [facility] Comment on above: Performed By: #### C BC #### [facility] [address] [place] [address] [address] Anisa Gomez EO # 0.1 103/ul Normal 0.0-0.7 [facility] Comment on above: Performed By: #### C BC #### [facility] [address] [place] [address] Dr. Anisa Gomez Eosinophils/100 WBC (Bld) 0.8 % Critically low 0.9-7.0 [facility] Comment on above: Performed By: #### C BC #### [facility] [address] [place] [address] Dr. Anisa Gomez Erythrocyte distribution width (RBC) [Ratio] 15.2 % Critically high 11.0-15.0 [facility] Comment on above: Performed By: #### C BC #### [facility] [address] [place] [address] Dr. Anisa Gomez Hematocrit (Bld) [Volume fraction] 48.8 % Critically high 36.0-48.0 [facility] Comment on above: Performed By: #### C BC #### [facility] [facility] [address] [place] [address] Dr. Anisa Gomez Hemoglobin (Bld) [Mass/Vol] 15.8 g/dL Normal 12.0-16.0 [facility] [place] Comment on above: Performed By: #### C BC #### [facility] [address] [place] [address] Dr. Anisa Gomez IG # 0.03 10e3/ul Normal 0.00-0.03 [facility] [place] Comment on above: Performed By: #### C BC #### [facility] [address] [place] [address] Dr. Anisa Gomez IG % 0.2 % Normal 0.0-0.5 [facility] Comment on above: Performed By: #### C BC #### [facility] [address] [place] [address] Dr. Anisa Gomez LYMPH # 3.2 103/ul Normal 1.2-3.8 [facility] Comment on above: Performed By: #### C BC #### [facility] [address] [place] [address] Dr. Anisa Gomez Lymphocytes/100 WBC (Bld) 21.9 % Normal 20.5-60.0 [facility] [place] Comment on above: Performed By: #### C BC #### [facility] [address] [place] [address] Dr. Anisa Gomez MANUAL DIFF REQ NO Normal [facility] [place] Comment on above: Performed By: #### C BC #### [facility] [address] [place] [address] Dr. Anisa Gomez MCH (RBC) [Entitic mass] 29.9 pg Normal 26.7-34.0 [facility] [place] Comment on above: Performed By: #### C BC #### [facility] [address] [place] [address] Dr. Anisa Gomez MCHC (RBC) [Mass/Vol] 32.4 g/dL Normal 29.9-35.2 [facility] [place] Comment on above: Performed By: #### C BC #### [facility] [address] [place] [address] Dr. Anisa Gomez MCV (RBC) [Entitic vol] 92.2 fL Normal 81.0-99.0 [facility] Comment on above: Performed By: #### C BC #### [facility] [address] [place] [address] Dr. Anisa Gomez MONO # 1.2 103/ul Critically high 0.3-0.8 [facility] [place] Comment on above: Performed By: #### C BC #### [facility] [address] [place] [address] Dr. Anisa Gomez Monocytes/100 WBC (Bld) 8.0 % Normal 1.7-12.0 [facility] Comment on above: Performed By: #### C BC #### [facility] [address] [place] [address] Dr. Anisa Gomez NEUT # 9.9 103/ul Critically high 1.4-6.5 [facility] [place] Comment on above: Performed By: #### C BC #### [facility] [address] [place] [address] Dr. Anisa Gomez Neutrophils/100 WBC (Bld) 68.6 % Normal 43.0-75.0 [facility] [place] Comment on above: Performed By: #### C BC #### [facility] [id number] Anisa Gomez Platelet mean volume (Bld) [Entitic vol] 10.6 fL Normal 9.5-13.5 [facility] [place] Comment on above: Performed By: #### C BC #### [facility] [address] [address] [address] Anisa Gomez PLT 336 103/ul Normal 150-450 [facility] Comment on above: Performed By: #### C BC #### [facility] [address] [address] [address] Anisa Gomez RBC 5.29 106/ul Normal 4.20-5.40 [facility] [place] Comment on above: Performed By: #### C BC #### [facility] [address] [place] [address] Dr. Anisa Gomez WBC 14.4 103/ul Critically high 4.0-11.0 [facility] [place] Comment on above: Performed By: #### C BC #### [facility] [address] [place] [address] Dr. Anisa Gomez CTA ABD/PELVIS WO W [...] by: LAYNE HO Date: 2022-11-11 18:26 Normal [facility] [place] CTA CHEST WO W CONon 023 CTA [...] ANDRES UNLU Date: 2022-11-11 17:48 Normal [facility] ER URINE PROFILEon 3 Bilirubin Ql (U) Negative Normal NEGATIVE [facility] Comment on above: Performed By: #### E RUR ####[facility] [address] [place], [place] [address]Dr. Anisa Gomez Clarity (U) CLEAR Normal CLEAR [facility] Comment on above: Performed By: #### E RUR ####[facility] [address] [place], [place] [address]Dr. Cherrylan Gomez Color (U) LT. YELLOW Normal YELLOW [facility] Comment on above: Performed By: #### E RUR ####[facility] [address] [place], [place] [address]Dr. Anisa Gomez ERUAHD A micrscopic examina tion will be performed if indicated. Normal [facility] Comment on above: Performed By: #### E RUR ####[facility] [address] [place], [place] [address]Dr. Yilan Gomez Glucose Ql (U) Negative Normal NEGATIVE [facility] [place] Comment on above: Performed By: #### E RUR ####[facility] [address] [place], [place] [address]Dr. Yilan Gomez Hemoglobin Ql (U) Negative Normal NEGATIVE [facility] Comment on above: Performed By: #### E RUR ####[facility] [address] [place], [place] [address]Dr. Yilan Gomez Ketones Ql (U) Negative Normal NEGATIVE [facility] Comment on above: Performed By: #### E RUR ####[facility] [address] [place], [place] [address]Dr. Yilan Gomez LEUKOCYTES Negative Normal NEGATIVE [facility] Comment on above: Performed By: #### E RUR ####[facility] [address] [place], [place] [address]Dr. Yilan Gomez Nitrite Ql (U) Negative Normal NEGATIVE [facility] [place] Comment on above: Performed By: #### E RUR ####[facility] [address] [address]Dr. Anisa Gomez pH (U) 5.5 [pH] Normal 5-9 [facility] Comment on above: Performed By: #### E RUR ####[facility] [address] [address]Dr. Anisa Gomez SPEC GRAVITY >=1.030 Abnormal 1.005-<=1. 025 [facility] Comment on above: Performed By: #### E RUR ####[facility] [address] [address]Dr. Anisa Gomez UA PROTEIN Negative Normal NEGATIVE/ TRACE [facility] Comment on above: Performed By: #### E RUR ####[facility] [address] [address]Dr. Anisa Gomez UR MICRO IND NOT INDICATED Normal [facility] Comment on above: Performed By: #### E RUR ####[facility] [address] [address]Dr. Anisa Gomez Urobilinogen Qn (U) 0.2 {Agustin'U}/dL Normal 0.2 - 1. 0 [facility] [place] Comment on above: Performed By: #### E RUR ####[facility] [address] [place], [place] [address]Dr. Anisa Gomez LIPASEon 11-11-2022 Lipase [Catalytic activity/Vol] 100.0 U/L Normal 73.0-393.0 [facility] Comment on above: Performed By: #### JANET BOOTH #### [facility] [address] [place] [address] Dr. Anisa Gomez LIVER PROFILEon 11-11-2022 Albumin [Mass/Vol] 3.8 g/dL Normal 3.4-5.0 [facility] Comment on above: Performed By: #### JANET BOOTH #### [facility] [address] [place] [address] Dr. Anisa Gomez Albumin/Globulin [Mass ratio] 0.9 {ratio} Normal [facility] Comment on above: Performed By: #### L IVER, LIPA #### [facility] [address] [address] [address] Anisa Gomez ALP [Catalytic activity/Vol] 107 U/L Normal 46-116 [facility] [place] Comment on above: Performed By: #### L IVER, LIPA #### [facility] [address] [address] [address] Anisa Gomez ALT [Catalytic activity/Vol] 25 U/L Normal 14-59 [facility] [place] Comment on above: Performed By: #### L IVER, LIPA #### [facility] [address] [address] [address] Anisa Gomez AST [Catalytic activity/Vol] 25 U/L Normal 15-37 [facility] [place] Comment on above: Performed By: #### L IVER, LIPA #### [facility] [address] [address] [address] Anisa Gomez BILI, CONJUGATED 0.1 mg/dL Normal 0.0-0.2 [facility] [place] Comment on above: Performed By: #### L IVER, LIPA #### [facility] [address] [address] [address] Anisa Gomez Bilirubin [Mass/Vol] 0.5 mg/dL Normal 0.2-1.0 [facility] [place] Comment on above: Performed By: #### L IVER, LIPA #### [facility] [address] [address] [address] Anisa Gomez Globulin (S) [Mass/Vol] 4.0 g/dL Normal T [facility] Comment on above: Performed By: #### L IVER, LIPA #### [facility] [address] [address] [address] Anisa Gomez Protein [Mass/Vol] 7.8 g/dL Normal 6.4-8.2 [facility] [place] Comment on above: Performed By: #### L IVER, LIPA #### [facility] [address] [address] [address] Anisa Gomez PROF CHEM 8 (BAS METB)on Anion gap [Moles/Vol] 13.2 mmol/L Normal Th [facility] Comment on above: Performed By: #### B MP #### [facility] [address] [address] [address] Anisa Gomez Calcium [Mass/Vol] 9.4 mg/dL Normal 8.5-10.1 [facility] [place] Comment on above: Performed By: #### B MP #### [facility] [address] [address] [address] Anisa Gomez Chloride [Moles/Vol] 103 mmol/L Normal 98-107 [facility] [place] Comment on above: Performed By: #### B MP #### [facility] [address] [address] [address] Anisa Gomez CO2 [Moles/Vol] 29.3 mmol/L Normal 21.0-32.0 [facility] [place] Comment on above: Performed By: #### B MP #### [facility] [address] [address] [address] Anisa Gomez Creatinine [Mass/Vol] 1.02 mg/dL Normal 0.55-1.02 [facility] [place] Comment on above: Performed By: #### B MP #### [facility] [address] [address] [address] Anisa Gomez EGFR-AF VENEZUELAN 60 mL/min/1.73m2 Normal >=60 Th [facility] Comment on above: Performed By: #### B MP #### [facility] [address] [address] [address] Anisa Gomez EGFR-NON AF VENEZUELAN 54 mL/min/1.73m2 Critically low >=60 [facility] [place] Comment on above: Performed By: #### B MP #### [facility] [address] [address] [address] Anisa Gomez Glucose [Mass/Vol] 102 mg/dL Normal 74-106 [facility] [place] Comment on above: Performed By: #### B MP #### [facility] [address] [address] [address] Anisa Gomez Potassium [Moles/Vol] 4.5 mmol/L Normal 3.5-5.1 [facility] [place] Comment on above: Performed By: #### B MP #### [facility] [address] [address] [address] Anisa Gomez Sodium [Moles/Vol] 141 mmol/L Normal 136-145 [facility] [place] Comment on above: Performed By: #### B MP #### [facility] [address] [address] [address] Anisa Gomez Urea nitrogen [Mass/Vol] 16.0 mg/dL Normal 7.0-18.0 [facility] [place] Comment on above: Performed By: #### B MP #### [facility] [address] [address] [address] Anisa Gomez Urea nitrogen/Creatinine [Mass ratio] 15.7 mg/mg Normal [facility] [place] Comment on above: Performed By: #### B MP #### [facility] [address] [address] [address] CHEST WO CONon [...] for better evaluation. Normal [facility] HEMOGLOBINon 10-27-2022 Hemoglobin (Bld) [Mass/Vol] 14.5 g/dL Normal 12.0-16.0 [facility] Comment on above: Performed By: #### H GB ####[facility] [address] [place], [place] [address]. [address]isa Gomez [address] LUNG CANCER SCREENINGon 0 [...] ROMEL ALONZO Date: 2022-07-24 17:20 Normal The [facility] MAMM SCREEN 3D BRISSA CADon 07-09-2022 MG MAMM SCREEN 3D BRISSA CAD Patient: BHUPENDRA RUBI Exam Date: 07/09/2022 : 1950 Gender:F Ordering : SHAIKH Eddie HORAN . Admission #: [id number] Family : Order #: [id number] CLICK HERE TO VIEW EXAM RADIOLOGY REPORT [...] Family Cancers None LOCATION: [facility] BREAST COMPOSITION: Heterogeneously dense,which may obscure [...] 07/25/2022 at 08:51 Normal [facility] CBC AUTO DIFFon 05-07-2022 BASO # 0.1 103/ul Normal 0.0-0.1 [facility] [place] Comment on above: Performed By: #### C BC #### [facility] [address] [place] [address] Dr. Anisa Gomez Basophils/100 WBC (Bld) 0.7 % Normal 0.2-2.0 [facility] Comment on above: Performed By: #### C BC #### [facility] [address] [place] [address] Dr. Anisa Gomez EO # 0.1 103/ul Normal 0.0-0.7 [facility] [place] Comment on above: Performed By: #### C BC #### [facility] [address] [place] [address] Dr. Anisa Gomez Eosinophils/100 WBC (Bld) 0.6 % Critically low 0.9-7.0 [facility] [place] Comment on above: Performed By: #### C BC #### [facility] [address] [place] [address] Dr. Anisa Gomez Erythrocyte distribution width (RBC) [Ratio] 14.9 % Normal 11.0-15.0 [facility] [place] Comment on above: Performed By: #### C BC #### [facility] [address] [place] [address] Dr. Anisa Gomez Hematocrit (Bld) [Volume fraction] 48.4 % Critically high 36.0-48.0 [facility] [place] Comment on above: Performed By: #### C BC #### [facility] [address] [place] [address] Dr. Anisa Gomez Hemoglobin (Bld) [Mass/Vol] 15.6 g/dL Normal 12.0-16.0 [facility] [place] Comment on above: Performed By: #### C BC #### [facility] [address] [place] [address] Dr. Anisa Gomez IG # 0.02 10e3/ul Normal 0.00-0.03 [facility] [place] Comment on above: Performed By: #### C BC #### [facility] [address] [place] [address] Dr. Anisa Gomez IG % 0.2 % Normal 0.0-0.5 [facility] [place] Comment on above: Performed By: #### C BC #### [facility] [address] [place] [address] Dr. Anisa Gomez LYMPH # 2.9 103/ul Normal 1.2-3.8 [facility] [place] Comment on above: Performed By: #### C BC #### [facility] [address] [place] [address] Dr. Anisa Gomez Lymphocytes/100 WBC (Bld) 28.6 % Normal 20.5-60.0 [facility] [place] Comment on above: Performed By: #### C BC #### [facility] [address] [place] [address] Dr. Anisa Gomez MANUAL DIFF REQ NO Normal [facility] [place] Comment on above: Performed By: #### C BC #### [facility] [address] [place] [address] Dr. Anisa Gomez MCH (RBC) [Entitic mass] 29.2 pg Normal 26.7-34.0 [facility] [place] Comment on above: Performed By: #### C BC #### [facility] [address] [place] [address] Dr. Anisa Gomez MCHC (RBC) [Mass/Vol] 32.2 g/dL Normal 29.9-35.2 [facility] [place] Comment on above: Performed By: #### C BC #### [facility] [address] [place] [address] Dr. Anisa Gomez MCV (RBC) [Entitic vol] 90.5 fL Normal 81.0-99.0 [facility] Comment on above: Performed By: #### C BC #### [facility] [address] [place] [address] Dr. Anisa Gomez MONO # 1.0 103/ul Critically high 0.3-0.8 [facility] [place] Comment on above: Performed By: #### C BC #### [facility] [address] [place] [address] Dr. Anisa Gomez Monocytes/100 WBC (Bld) 9.5 % Normal 1.7-12.0 [facility] Comment on above: Performed By: #### C BC #### [facility] [address] [place] [address] Dr. Anisa Gomez NEUT # 6.2 103/ul Normal 1.4-6.5 [facility] [place] Comment on above: Performed By: #### C BC #### [facility] [address] [address] [address] Anisa Gomez Neutrophils/100 WBC (Bld) 60.4 % Normal 43.0-75.0 [facility] [place] Comment on above: Performed By: #### C BC #### [facility] [address] [address] [address] Anisa Gomez Platelet mean volume (Bld) [Entitic vol] 10.1 fL Normal 9.5-13.5 [facility] [place] Comment on above: Performed By: #### C BC #### [facility] [address] [place] [address] Dr. Anisa Gomez PLT 403 103/ul Normal 150-450 [facility] Comment on above: Performed By: #### C BC #### [facility] [address] [place] [address] Dr. Anisa Gomez RBC 5.35 106/ul Normal 4.20-5.40 [facility] [place] Comment on above: Performed By: #### C BC #### [facility] [address] [place] [address] Dr. Anisa Gomez WBC 10.2 103/ul Normal 4.0-11.0 [facility] [place] Comment on above: Performed By: #### C BC #### [facility] [address] [place] [address] Dr. Anisa Gomez LIPID PROFILEon 05-07-2022 CHOL-HDL RATIO NORM SEE BELOW Normal [facility] Comment on above: Result Comment: 3.3 - 4.4 LOW RISK 4.4 - 7.1 AVERAGE RISK 7.1 - 11.0 MODERATE RISK >11.0 HIGH RISK Performed By: #### L IPID, CMP ####[facility] [address] [address]Dr. Anisa Gomez Cholesterol [Mass/Vol] 242 mg/dL Critically high <=200 [facility] Comment on above: Performed By: #### L IPID, CMP ####[facility] [address] [id number]. Anisa Gomez Cholesterol in HDL [Mass/Vol] 49 mg/dL Normal 40-60 [facility] Comment on above: Performed By: #### L IPID, CMP ####[facility] [address] [address]Dr. Anisa Gomez Cholesterol in LDL [Mass/Vol] 148.4 mg/dL Normal [facility] Comment on above: Performed By: #### L IPID, CMP ####[facility] [address] [address]Dr. Anisa Gomez Cholesterol.total/Joanne sterol in HDL [Mass ratio] 4.9 {ratio} Normal [facility] Comment on above: Performed By: #### L IPID, CMP ####[facility] [address] [place], [place] [address]Dr. Anisa Gomez HDL NORMAL > or = 60 mg/dl - LO W CARDIOVASCULAR RISK <40 mg/dl - HIGH CARDIOVASCULAR RISK Normal [facility] Comment on above: Performed By: #### L IPID, CMP ####[facility] [address] [address]Dr. Anisa Goemz LDL CALC NORMAL SEE BELOW Normal [facility] Comment on above: Result Comment: <100 mg/dl OPTIMAL 100 - 129 mg/dl NEAR OR ABOVE OPTIMAL 130 - 159 mg/dl BORDERLINE HIGH 160 - 189 mg/dl HIGH >190 mg/dl VERY HIGH Performed By: #### L IPID, CMP ####[facility] [address] [place], [place] [address]Dr. Anisa Gomez Triglyceride [Mass/Vol] 223 mg/dL Critically high <=150 [facility] Comment on above: Performed By: #### L IPID, CMP ####[facility] [address] [address]Dr. Anisa Gomez VLDL CALC 44.6 mg/dL Normal [facility] Comment on above: Performed By: #### L IPID, CMP ####[facility] [address] [id number]. Anisa Gomez PROF 14(COMP METB)on 10-26-2 022 Albumin [Mass/Vol] 3.6 g/dL Normal 3.4-5.0 [facility] [place] Comment on above: Performed By: #### L IPID, CMP ####[facility] [address] [address]Dr. Anisa Gomez Albumin/Globulin [Mass ratio] 1.0 {ratio} Normal [facility] [place] Comment on above: Performed By: #### L IPID, CMP ####[facility] [address] [address]Dr. Anisa Gomez ALP [Catalytic activity/Vol] 95 U/L Normal 46-116 [facility] Comment on above: Performed By: #### L IPID, CMP ####[facility] [address] [address]Dr. Anisa Gomez ALT [Catalytic activity/Vol] 21 U/L Normal 14-59 [facility] [place] Comment on above: Performed By: #### L IPID, CMP ####[facility] [address] [address]Dr. Anisa Gomez Anion gap [Moles/Vol] 6.3 mmol/L Normal [facility] [place] Comment on above: Performed By: #### L IPID, CMP ####[facility] [address] [place], [place] [address]Dr. Anisa Gomez AST [Catalytic activity/Vol] 15 U/L Normal 15-37 [facility] [place] Comment on above: Performed By: #### L IPID, CMP ####[facility] [address] [address]Dr. Anisa Gomez Bilirubin [Mass/Vol] 0.5 mg/dL Normal 0.2-1.0 [facility] Comment on above: Performed By: #### L IPID, CMP ####[facility] [address] [address]Dr. Anisa Gomez Calcium [Mass/Vol] 9.1 mg/dL Normal 8.5-10.1 [facility] Comment on above: Performed By: #### L IPID, CMP ####[facility] [id number] [address]Dr. Anisa Gomez Chloride [Moles/Vol] 104 mmol/L Normal 98-107 [facility] Comment on above: Performed By: #### L IPID, CMP ####[facility] [id number] [address]Dr. Anisa Gomez CO2 [Moles/Vol] 33.4 mmol/L Critically high 21.0-32.0 [facility] [place] Comment on above: Performed By: #### L IPID, CMP ####[facility] [address] [place], [place] [address]Dr. Anisa Gomez Creatinine [Mass/Vol] 0.90 mg/dL Normal 0.55-1.02 [facility] [place] Comment on above: Performed By: #### L IPID, CMP ####[facility] [address] [place], [place] [address]Dr. Anisa Gomez EGFR-AF VENEZUELAN >60 Normal >=60 [facility] [place] Comment on above: Performed By: #### L IPID, CMP ####[facility] [id number] [place], [place] [address]Dr. Anisa Gomez EGFR-NON AF VENEZUELAN >60 Normal >=60 [facility] Comment on above: Performed By: #### L IPID, CMP ####[facility] [id number] [place], [place] [address]Dr. Anisa Gomez Globulin (S) [Mass/Vol] 3.7 g/dL Normal T [facility] Comment on above: Performed By: #### L IPID, CMP ####[facility] [id number] [address]Dr. Anisa Gomez Glucose [Mass/Vol] 67 mg/dL Critically low 74-106 Th [facility] Comment on above: Performed By: #### L IPID, CMP ####[facility] [address] [place], [place] [address]Dr. Anisa Gomez Potassium [Moles/Vol] 3.7 mmol/L Normal 3.5-5.1 [facility] Comment on above: Performed By: #### L IPID, CMP ####[facility] [id number] [address]Dr. Anisa Gomez Protein [Mass/Vol] 7.3 g/dL Normal 6.4-8.2 [facility] Comment on above: Performed By: #### L IPID, CMP ####[facility] [id number] [address]Dr. Anisa Gomez Sodium [Moles/Vol] 140 mmol/L Normal 136-145 [facility] Comment on above: Performed By: #### L IPID, CMP ####[facility] [id number] [address]Dr. Anisa Gomez Urea nitrogen [Mass/Vol] 13.0 mg/dL Normal 7.0-18.0 [facility] Comment on above: Performed By: #### L IPID, CMP ####[facility] [id number] [address]Dr. Anisa Gomez Urea nitrogen/Creatinine [Mass ratio] 14.4 mg/mg Normal [facility] Comment on above: Performed By: #### L IPID, CMP ####[facility] [id number] [address]Dr. Anisa Gomez UA RANDOM W/MICROSCOPICon BACTERIA NONE SEEN Normal NONE SEEN [facility] Comment on above: Performed By: #### U AMIC #### [facility] [address] [place] [address] Dr. Anisa Gomez Bilirubin Ql (U) Negative Normal NEGATIVE [facility] Comment on above: Performed By: #### U AMIC #### [facility] [address] [place] [address] Dr. Ansia Gomez CAST NONE SEEN Normal NONE SEEN [facility] Comment on above: Performed By: #### U AMIC #### [facility] [address] [place] [address] Dr. Anisa Gomez Clarity (U) CLEAR Normal CLEAR [facility] Comment on above: Performed By: #### U AMIC #### [facility] [address] [place] [address] Dr. Anisa Gomez Color (U) YELLOW Normal YELLOW [facility] Comment on above: Performed By: #### U AMIC #### [facility] [address] [address] [address] Anisa Gomez Crystals LM Nom (Urine sed) NONE SEEN Normal NONE SEEN [facility] [place] Comment on above: Performed By: #### U AMIC #### [facility] [address] [address] [address] Anisa Gomez Epithelial cells LM Ql (Urine sed) RARE Normal NONE SEEN /RARE [facility] Comment on above: Performed By: #### U AMIC #### [facility] [address] [address] [address] Anisa Gomez Glucose Ql (U) Negative Normal NEGATIVE [facility] Comment on above: Performed By: #### U AMIC #### [facility] [address] [address] [address] Anisa Gomez Hemoglobin Ql (U) Negative Normal NEGATIVE [facility] Comment on above: Performed By: #### U AMIC #### [facility] [address] [address] [address] Anisa Gomez Ketones Ql (U) Negative Normal NEGATIVE [facility] Comment on above: Performed By: #### U AMIC #### [facility] [address] [address] [address] Anisa Gomez LEUKOCYTES Negative Normal NEGATIVE [facility] Comment on above: Performed By: #### U AMIC #### [facility] [address] [address] [address] Anisa Gomez MUCOUS NONE SEEN Normal NONE SEEN [facility] Comment on above: Performed By: #### U AMIC #### [facility] [address] [address] [address] Anisa Gomez Nitrite Ql (U) Negative Normal NEGATIVE [facility] Comment on above: Performed By: #### U AMIC #### [facility] [address] [address] [address] Anisa Gomez pH (U) 7.0 [pH] Normal 5-9 [facility] Comment on above: Performed By: #### U AMIC #### [facility] [address] [place] [address] Dr. Anisa Gomez RBC 0-2 Normal 0-2 [facility] Comment on above: Performed By: #### U AMIC #### [facility] [address] [place] [address] Dr. Anisa Gomez SPEC GRAVITY 1.010 Normal 1.005-<=1. 025 [facility] [place] Comment on above: Performed By: #### U AMIC #### [facility] [address] [place] [address] Dr. Anisa Gomez UA PROTEIN Negative Normal NEGATIVE/ TRACE [facility] Comment on above: Performed By: #### U AMIC #### [facility] [address] [place] [address] Dr. Anisa Gomez Urobilinogen Qn (U) 0.2 {Agustin'U}/dL Normal 0.2 - 1. 0 [facility] Comment on above: Performed By: #### U AMIC #### [facility] [address] [place] [address] Dr. Anisa Gomez WBC 0-2 Abnormal NONE SEEN [facility] Comment on above: Performed By: #### U AMIC #### [facility] [address] [place] [address] Dr. Anisa Gomez Vital Signs Date Time Vital Sign Value Performing Clinician Facility 03-07-2025 16:05-0400 Body height 157.5 cm Neyda Lockwood MD Work Phone: [facility] 03-07-2025 16:05-0400 Body mass index (BMI) [Ratio] 26.52 kg/m2 Neyda Lockwood MD Work Phone: [facility] 03-07-2025 16:05-0400 Body weight 65.77 kg Neyda Lockwood MD Work Phone: [facility] 02-22-2025 10:50-0400 Body mass index (BMI) [Ratio] 25.2 kg/m2 Wendy Burden NP Work Phone: [facility] 02-22-2025 10:50-0400 Body temperature 98.1 [degF] Wendy Aichholz DEVELOPMENT GEOLOGIST Work Phone: [facility] 02-22-2025 10:50-0400 Body weight 62.51 kg Wendy Aichholz DEVELOPMENT GEOLOGIST Work Phone: [facility] 02-22-2025 10:50-0400 Diastolic blood pressure 50 mm[Hg] Wendy Aichholz DEVELOPMENT GEOLOGIST Work Phone: [facility] 02-22-2025 10:50-0400 Heart rate 88 /min Wendy Aichholz DEVELOPMENT GEOLOGIST Work Phone: [facility] 02-22-2025 10:50-0400 SaO2% (BldA) [Mass fraction] 94 % Wendy Aichholz DEVELOPMENT GEOLOGIST Work Phone: [facility] 02-22-2025 10:50-0400 Systolic blood pressure 98 mm[Hg] Wendy Aichholz DEVELOPMENT GEOLOGIST Work Phone: [facility] 02-14-2025 17:24-0400 Heart rate 73 /min Wendy Aichholz Work Phone: [facility] 02-14-2025 17:24-0400 Respiratory rate 18 /min Wendy Aichholz Work Phone: [facility] 02-14-2025 17:24-0400 SaO2% (BldA) [Mass fraction] 89 % Wendy Aichholz Work Phone: [facility] 02-14-2025 16:32-0400 Body temperature 98.1 [degF] Wendy Aichholz Work Phone: [facility] 02-14-2025 16:32-0400 Diastolic blood pressure 75 mm[Hg] Wendy Aichholz Work Phone: [facility] 02-14-2025 16:32-0400 Systolic blood pressure 172 mm[Hg] Wendy Aichholz Work Phone: [facility] 02-14-2025 14:07-0400 Inhaled oxygen flow rate 2 L/min Wendy Jenise Work Phone: [facility] 02-14-2025 06:00-0400 Body weight 62.1 kg Wendy Jenise Work Phone: [facility] 02-13-2025 15:50-0400 Body height 157.48 cm Wendy Jenise Work Phone: [facility] 02-11-2025 18:00-0400 Diastolic blood pressure 61 mm[Hg] [facility] 02-11-2025 18:00-0400 Heart rate 68 /min [facility] 02-11-2025 18:00-0400 Inhaled oxygen flow rate 4 L/min [facility] 02-11-2025 18:00-0400 Respiratory rate 14 /min [facility] 02-11-2025 18:00-0400 SaO2% (BldA) [Mass fraction] 99 % [facility] 02-11-2025 18:00-0400 Systolic blood pressure 130 mm[Hg] [facility] 02-11-2025 12:49-0400 Body height 157.48 cm [facility] 02-11-2025 12:49-0400 Body weight 65 kg [facility] 02-11-2025 12:41-0400 Body temperature 97.7 [degF] [facility] 02-07-2025 09:38-0400 Body height 157.5 cm Neyda Lockwood MD Work Phone: [facility] 02-07-2025 09:38-0400 Body mass index (BMI) [Ratio] 27.25 kg/m2 Neyda Lockwood MD Work Phone: [facility] 02-07-2025 09:38-0400 Body weight 67.59 kg Neyda Lockwood MD Work Phone: [facility] 01-26-2025 10:27-0400 Body mass index (BMI) [Ratio] 25.72 kg/m2 Wendy Burden DEVELOPMENT GEOLOGIST Work Phone: [facility] 01-26-2025 10:27-0400 Body temperature 97.81 [degF] Wendy Burden DEVELOPMENT GEOLOGIST Work Phone: [facility] 01-26-2025 10:27-0400 Body weight 63.78 kg Wendy Burden DEVELOPMENT GEOLOGIST Work Phone: [facility] 01-26-2025 10:27-0400 Diastolic blood pressure 84 mm[Hg] Wendy Burden DEVELOPMENT GEOLOGIST Work Phone: [facility] 01-26-2025 10:27-0400 Heart rate 96 /min Wendy Burden DEVELOPMENT GEOLOGIST Work Phone: [facility] 01-26-2025 10:27-0400 Respiratory rate 20 /min Wendy Burden DEVELOPMENT GEOLOGIST Work Phone: [facility] 01-26-2025 10:27-0400 SaO2% (BldA) [Mass fraction] 93 % Wendy Burden DEVELOPMENT GEOLOGIST Work Phone: [facility] 01-26-2025 10:27-0400 Systolic blood pressure 140 mm[Hg] Wendy Burden DEVELOPMENT GEOLOGIST Work Phone: [facility] 01-04-2025 10:51-0400 Body height 157.48 cm Hipolito Shah OUMAR Work Phone: [facility] 01-04-2025 10:51-0400 Body mass index (BMI) [Ratio] 27.4 kg/m2 Hipolito Shah OUMAR Work Phone: [facility] 01-04-2025 10:51-0400 Body temperature 98.6 [degF] Hipolito Shah OUMAR Work Phone: [facility] 01-04-2025 10:51-0400 Body weight 68.03 kg Hipolito Shah OUMAR Work Phone: [facility] 01-04-2025 10:51-0400 Diastolic blood pressure 76 mm[Hg] Hipolito Shah APRN Work Phone: [facility] 01-04-2025 10:51-0400 Heart rate 89 /min Hipolito Shah APRN Work Phone: [facility] 01-04-2025 10:51-0400 Respiratory rate 16 /min Hipolito Shah APRN Work Phone: [facility] 01-04-2025 10:51-0400 SaO2% (BldA) [Mass fraction] 90 % Hipolito Shah APRN Work Phone: [facility] 01-04-2025 10:51-0400 Systolic blood pressure 122 mm[Hg] Hipolito Shah APRN Work Phone: [facility] 12-21-2024 16:27-0400 Body mass index (BMI) [Ratio] 27 kg/m2 Wendy Jenise DEVELOPMENT GEOLOGIST Work Phone: [facility] 12-21-2024 16:27-0400 Body temperature 98.29 [degF] Wendy Suadz DEVELOPMENT GEOLOGIST Work Phone: [facility] 12-21-2024 16:27-0400 Body weight 66.95 kg Wendy Suadz DEVELOPMENT GEOLOGIST Work Phone: [facility] 12-21-2024 16:27-0400 Diastolic blood pressure 66 mm[Hg] Wendy Suadz DEVELOPMENT GEOLOGIST Work Phone: [facility] 12-21-2024 16:27-0400 Heart rate 104 /min Wendy Aichholz DEVELOPMENT GEOLOGIST Work Phone: [facility] 12-21-2024 16:27-0400 Respiratory rate 18 /min Wendy Aicanjuholz DEVELOPMENT GEOLOGIST Work Phone: [facility] 12-21-2024 16:27-0400 SaO2% (BldA) [Mass fraction] 93 % Wendy Suadz DEVELOPMENT GEOLOGIST Work Phone: [facility] 12-21-2024 16:27-0400 Systolic blood pressure 98 mm[Hg] Wendy Chintanholz DEVELOPMENT GEOLOGIST Work Phone: [facility] 10-27-2024 10:38-0400 Body mass index (BMI) [Ratio] 28.06 kg/m2 Wendy Aichholz DEVELOPMENT GEOLOGIST Work Phone: [facility] 10-27-2024 10:38-0400 Body temperature 98.49 [degF] Wendy Sylviahholz DEVELOPMENT GEOLOGIST Work Phone: [facility] 10-27-2024 10:38-0400 Body weight 69.58 kg Wendy Aichholz DEVELOPMENT GEOLOGIST Work Phone: [facility] 10-27-2024 10:38-0400 Diastolic blood pressure 78 mm[Hg] Wendy Aichholz DEVELOPMENT GEOLOGIST Work Phone: [facility] 10-27-2024 10:38-0400 Heart rate 96 /min Wendy Sylviahholz DEVELOPMENT GEOLOGIST Work Phone: [facility] 10-27-2024 10:38-0400 Respiratory rate 20 /min Wendy Aichholz DEVELOPMENT GEOLOGIST Work Phone: [facility] 10-27-2024 10:38-0400 SaO2% (BldA) [Mass fraction] 89 % Wendy Sylviahholz DEVELOPMENT GEOLOGIST Work Phone: [facility] 10-27-2024 10:38-0400 Systolic blood pressure 112 mm[Hg] Wendy Aichholz DEVELOPMENT GEOLOGIST Work Phone: [facility] 09-26-2024 10:21-0400 Body height 157.5 cm Kianna Lowe PA Work Phone: [facility] 09-26-2024 10:21-0400 Body mass index (BMI) [Ratio] 27.44 kg/m2 Kianna Lowe PA Work Phone: [facility] 09-26-2024 10:21-0400 Body weight 68.04 kg Kianna Lowe PA Work Phone: [facility] 09-26-2024 10:21-0400 Diastolic blood pressure 84 mm[Hg] Kianna Roman PA Work Phone: [facility] 09-26-2024 10:21-0400 Systolic blood pressure 138 mm[Hg] Kianna Roman PA Work Phone: [facility] 08-02-2024 11:57-0500 Body height 157.5 cm Romel Sampson MD Work Phone: [facility] 08-02-2024 11:57-0500 Body mass index (BMI) [Ratio] 27.8 kg/m2 Romel Sampson MD Work Phone: [facility] 08-02-2024 11:57-0500 Body weight 68.95 kg Romel Sampson MD Work Phone: [facility] 08-02-2024 11:57-0500 Diastolic blood pressure 84 mm[Hg] Romel Sampson MD Work Phone: [facility] 08-02-2024 11:57-0500 Systolic blood pressure 118 mm[Hg] Romel Sampson MD Work Phone: [facility] 08-02-2024 10:51-0500 Body height 157.5 cm Chris Singh DEVELOPMENT GEOLOGIST Work Phone: [facility] 08-02-2024 10:51-0500 Body mass index (BMI) [Ratio] 28.53 kg/m2 Chris Singh DEVELOPMENT GEOLOGIST Work Phone: [facility] 08-02-2024 10:51-0500 Body temperature 97.11 [degF] Chris Singh DEVELOPMENT GEOLOGIST Work Phone: [facility] 08-02-2024 10:51-0500 Body weight 70.76 kg Chris Singh DEVELOPMENT GEOLOGIST Work Phone: [facility] 08-02-2024 10:51-0500 Diastolic blood pressure 76 mm[Hg] Chris Singh DEVELOPMENT GEOLOGIST Work Phone: [facility] 08-02-2024 10:51-0500 Heart rate 107 /min Chris Singh DEVELOPMENT GEOLOGIST Work Phone: [facility] 08-02-2024 10:51-0500 Respiratory rate 16 /min Chris Singh DEVELOPMENT GEOLOGIST Work Phone: [facility] 08-02-2024 10:51-0500 SaO2% (BldA) [Mass fraction] 95 % Chris Singh DEVELOPMENT GEOLOGIST Work Phone: [facility] 08-02-2024 10:51-0500 Systolic blood pressure 128 mm[Hg] Chris Singh DEVELOPMENT GEOLOGIST Work Phone: [facility] 07-28-2024 14:17-0500 Body height 159.51 cm Shaikh Aung FARFAN Work Phone: [facility] 07-28-2024 14:17-0500 Body mass index (BMI) [Ratio] 27.2 kg/m2 Shaikh Aung FARFAN Work Phone: [facility] 07-28-2024 14:17-0500 Body temperature 97.1 [degF] Shaikh Aung FARFAN Work Phone: [facility] 07-28-2024 14:17-0500 Body weight 69.39 kg Shaikh Aung FARFAN Work Phone: [facility] 07-28-2024 14:17-0500 Diastolic blood pressure 83 mm[Hg] Shaikh Aung FARFAN Work Phone: [facility] 07-28-2024 14:17-0500 Heart rate 97 /min Shaikh Aung FARFAN Work Phone: [facility] 07-28-2024 14:17-0500 Respiratory rate 18 /min Shaikh Aung FARFAN Work Phone: [facility] 07-28-2024 14:17-0500 SaO2% (BldA) [Mass fraction] 93 % Shaikh Aung FARFAN Work Phone: [facility] 07-28-2024 14:17-0500 Systolic blood pressure 143 mm[Hg] Shaikh Aung FARFAN Work Phone: [facility] 05-23-2024 10:17-0500 Body height 157.5 cm Chris Singh DEVELOPMENT GEOLOGIST Work Phone: [facility] 05-23-2024 10:17-0500 Body mass index (BMI) [Ratio] 28.9 kg/m2 Chris Singh DEVELOPMENT GEOLOGIST Work Phone: [facility] 05-23-2024 10:17-0500 Body temperature 96.8 [degF] Chris Singh DEVELOPMENT GEOLOGIST Work Phone: [facility] 05-23-2024 10:17-0500 Body weight 71.67 kg Chris Singh DEVELOPMENT GEOLOGIST Work Phone: [facility] 05-23-2024 10:17-0500 Diastolic blood pressure 84 mm[Hg] Chris Singh DEVELOPMENT GEOLOGIST Work Phone: [facility] 05-23-2024 10:17-0500 Heart rate 78 /min Chris Singh DEVELOPMENT GEOLOGIST Work Phone: [facility] 05-23-2024 10:17-0500 Respiratory rate 16 /min Chris Singh DEVELOPMENT GEOLOGIST Work Phone: [facility] 05-23-2024 10:17-0500 SaO2% (BldA) [Mass fraction] 90 % Chris Singh DEVELOPMENT GEOLOGIST Work Phone: [facility] 05-23-2024 10:17-0500 Systolic blood pressure 128 mm[Hg] Chris Singh DEVELOPMENT GEOLOGIST Work Phone: [facility] 05-11-2024 14:25-0400 Body height 157.48 cm MD Shaikh Horan Work Phone: [facility] 05-11-2024 14:25-0400 Body mass index (BMI) [Ratio] 28.5 kg/m2 MD Shaikh Horan Work Phone: [facility] 05-11-2024 14:25-0400 Body temperature 97.8 [degF] MD Shaikh Horan Work Phone: [facility] 05-11-2024 14:25-0400 Body weight 70.76 kg MD Shaikh Horan Work Phone: [facility] 05-11-2024 14:25-0400 Diastolic blood pressure 78 mm[Hg] MD Shaikh Horan Work Phone: [facility] 05-11-2024 14:25-0400 Heart rate 89 /min MD Shaikh Horan Work Phone: [facility] 05-11-2024 14:25-0400 Respiratory rate 16 /min MD Shaikh Horan Work Phone: [facility] 05-11-2024 14:25-0400 SaO2% (BldA) [Mass fraction] 95 % MD Shaikh Horan Work Phone: [facility] 05-11-2024 14:25-0400 Systolic blood pressure 134 mm[Hg] MD Shaikh Horan Work Phone: [facility] 05-10-2024 14:010400 Body height 157.5 cm Javier Villanueva DO Work Phone: [facility] 05-10-2024 14:01-0400 Body mass index (BMI) [Ratio] 27.62 kg/m2 Javier Villanueva DO Work Phone: [facility] 05-10-2024 14:010400 Body weight 68.49 kg Javier Laffay DO Work Phone: [facility] 05-10-2024 14:01-0400 Diastolic blood pressure 90 mm[Hg] Javier Villanueva DO Work Phone: [facility] 05-10-2024 14:01-0400 Systolic blood pressure 130 mm[Hg] Javier Vilalnueva DO Work Phone: [facility] 03-25-2024 11:45-0400 Diastolic blood pressure 90 mm[Hg] MD Shaikh Horan Work Phone: [facility] 03-25-2024 11:45-0400 Heart rate 85 /min MD Shaikh Horan Work Phone: [facility] 03-25-2024 11:45-0400 Respiratory rate 20 /min MD Shaikh Horan Work Phone: [facility] 03-25-2024 11:45-0400 SaO2% (BldA) [Mass fraction] 95 % MD Shaikh Horan Work Phone: [facility] 03-25-2024 11:45-0400 Systolic blood pressure 152 mm[Hg] MD Shaikh Horan Work Phone: [facility] 03-25-2024 10:06-0400 Body height 157.48 cm MD Shaikh Horan Work Phone: [facility] 03-25-2024 10:06-0400 Body weight 65.77 kg MD Shaikh Horan Work Phone: [facility] 03-24-2024 11:14-0400 Body height 157.5 cm Chris Mccordk DEVELOPMENT GEOLOGIST Work Phone: [facility] 03-24-2024 11:14-0400 Body mass index (BMI) [Ratio] 27.25 kg/m2 Chris Buchananpatrick DEVELOPMENT GEOLOGIST Work Phone: [facility] 03-24-2024 11:14-0400 Body temperature 98.91 [degF] Chris Singh DEVELOPMENT GEOLOGIST Work Phone: [facility] 03-24-2024 11:14-0400 Body weight 67.59 kg Chris Singh DEVELOPMENT GEOLOGIST Work Phone: [facility] 03-24-2024 11:14-0400 Diastolic blood pressure 80 mm[Hg] Chris Singh DEVELOPMENT GEOLOGIST Work Phone: [facility] 03-24-2024 11:14-0400 Heart rate 96 /min Chris Singh DEVELOPMENT GEOLOGIST Work Phone: [facility] Comment on above: 93% O2 03-24-2024 11:14-0400 Systolic blood pressure 116 mm[Hg] Chris Singh DEVELOPMENT GEOLOGIST Work Phone: [facility] 12-30-2023 09:35-0400 Body height 157.48 cm MD Shaikh Horan Work Phone: [facility] 12-30-2023 09:35-0400 Body mass index (BMI) [Ratio] 27.4 kg/m2 MD Shaikh Horan Work Phone: [facility] 12-30-2023 09:35-0400 Body temperature 97.3 [degF] MD Shaikh Horan Work Phone: [facility] 12-30-2023 09:35-0400 Body weight 68.03 kg MD Shaikh Horan Work Phone: [facility] 12-30-2023 09:35-0400 Diastolic blood pressure 50 mm[Hg] MD Shaikh Horan Work Phone: [facility] 12-30-2023 09:35-0400 Heart rate 106 /min MD Shaikh Horan Work Phone: [facility] 12-30-2023 09:35-0400 Respiratory rate 18 /min MD Shaikh Horan Work Phone: [facility] 12-30-2023 09:35-0400 SaO2% (BldA) [Mass fraction] 85 % MD Shaikh Horan Work Phone: [facility] 12-30-2023 09:35-0400 Systolic blood pressure 76 mm[Hg] MD Shaikh Horan Work Phone: [facility] 12-27-2023 15:46-0400 Diastolic blood pressure 57 mm[Hg] MD Shaikh Horan Work Phone: [facility] 12-27-2023 15:46-0400 Heart rate 65 /min MD Shaikh Horan Work Phone: [facility] 12-27-2023 15:46-0400 Respiratory rate 20 /min MD Shaikh Horan Work Phone: [facility] 12-27-2023 15:46-0400 Systolic blood pressure 112 mm[Hg] MD Shaikh Horan Work Phone: [facility] 12-27-2023 14:59-0400 Inhaled oxygen flow rate 2 L/min MD Shaikh Horan Work Phone: [facility] 12-27-2023 14:59-0400 SaO2% (BldA) [Mass fraction] 92 % MD Shaikh Horan Work Phone: [facility] 12-27-2023 11:20-0400 Body temperature 97.7 [degF] MD Shaikh Horan Work Phone: [facility] 12-27-2023 10:48-0400 Body height 157.48 cm MD Shaikh Horan Work Phone: [facility] 12-27-2023 10:48-0400 Body weight 70.8 kg MD Shaikh Horan Work Phone: [facility] 03-25-2023 10:00-0400 Body height 157.48 cm Nigel Valladares Other [facility] Other 03-25-2023 10:00-0400 Body mass index (BMI) [Ratio] 27.43 kg/m2 Nigel Valladares Other [facility] Other 03-25-2023 10:00-0400 Body temperature 97.2 [degF] Nigel Valladares Other [facility] Other 03-25-2023 10:00-0400 Body weight 68.04 kg Nigel Valladares Other [facility] Other 03-25-2023 10:00-0400 Diastolic blood pressure 82 mm[Hg] Nigel Valladares Other [facility] Other 03-25-2023 10:00-0400 SaO2% (BldA) [Mass fraction] 91 % Nigel Valladares Other [facility] Other 03-25-2023 10:00-0400 Systolic blood pressure 158 mm[Hg] Nigel Valladares Other [facility] Other 02-09-2023 11:00-0400 Body height 157.48 cm Cherelle Bautista Other [facility] Other 02-09-2023 11:00-0400 Body mass index (BMI) [Ratio] 27.43 kg/m2 Cherelle Bautista Other [facility] Other 02-09-2023 11:00-0400 Body temperature 97.6 [degF] Cherelle Bautista Other [facility] Other 02-09-2023 11:00-0400 Body weight 68.04 kg Cherelle Bautista Other [facility] Other 02-09-2023 11:00-0400 Diastolic blood pressure 74 mm[Hg] Cherelle Bautista Other [facility] Other 02-09-2023 11:00-0400 SaO2% (BldA) [Mass fraction] 92 % Cherelle Bautista Other [facility] Other 02-09-2023 11:00-0400 Systolic blood pressure 122 mm[Hg] Cherelle Bautista Other [facility] Other 12-24-2022 10:00-0400 Diastolic blood pressure 86 mm[Hg] Brigette Esparzametz [facility] 12-24-2022 10:00-0400 Mean blood pressure 106 mm[Hg] Brigette Lianet [facility] 12-24-2022 10:00-0400 Systolic blood pressure 146 mm[Hg] Brigette Lianet [facility] 12-24-2022 09:57-0400 Blood Pressure Location Brigette Lianet [facility] 12-24-2022 09:57-0400 Body temperature 97.52 [degF] Brigtete Lianet [facility] 12-24-2022 09:57-0400 Diastolic blood pressure 82 mm[Hg] Brigette Lianet [facility] 12-24-2022 09:57-0400 Heart rate 86 /min Brigette Martini [facility] 12-24-2022 09:57-0400 Systolic blood pressure 150 mm[Hg] Brigette Martini [facility] Encounters Encounter Date Encounter Type Care Provider Facility Start: 04-03-2025 ambulatory Arden Fay lity:[facility] Start: 03-07-2025 End: 03-07-2025 Office outpatient visit 25 minutes Neyda Lockwood MD [facility] Phone[facility] Comment on above: Seizure (HCC) (Prima ry Dx); Loss of consciousness (HCC); Carotid stenosis, bilateral; Sequelae of cerebral infarction; Gait disturbance Start: 03-07-2025 End: 03-07-2025 ambulatory NEYDA LOCKWOOD Not Available Start: 03-07-2025 End: 03-07-2025 Bamboo flowsheet Neyda Lockwood MD Work Phone: [facility] Start: 03-07-2025 End: 03-07-2025 Bamboo flowsheet Neyda Lockwood MD Work Phone: [facility] Start: 02-22-2025 End: 02-22-2025 Office outpatient visit 25 minutes Wendy Burden DEVELOPMENT GEOLOGIST Work Phone: [facility] Comment on above: Chronic abdominal pa in (Primary Dx); Seizure (HCC); Cerebrovascular accident (CVA), unspecified mechanism (HCC); Mass of left lung; Adenocarcinoma of left lung (HCC); Infrarenal abdominal aortic aneurysm (AAA) without rupture; Syncope and collapse Start: 02-22-2025 End: 02-22-2025 ambulatory WENDY BURDEN Not Available Start: 02-21-2025 End: 02-21-2025 Bamboo flowsheet Sulema Juan APRN-COTTON TIER Work Phone: [facility] Start: 02-21-2025 End: 02-21-2025 Bamboo flowsheet Sulema Juan ELECTRICIAN APPRENTICE-COTTON TIER Work Phone: [facility] Start: 02-21-2025 End: 02-21-2025 Patient encounter procedure Sulema Juan ELECTRICIAN APPRENTICE-COTTON TIER Work Phone: [facility] Comment on above: Inflamed seborrheic keratosis Start: 02-21-2025 End: 02-21-2025 ambulatory SULEMA JUAN Not Available Start: 02-11-2025 End: 02-14-2025 Evaluation and management of inpatient Matteo Zaragoza MD -[facility] [employer] Work Phone: Start: 02-11-2025 Non-patient / Non-visit [facility] nguyễn Ignacio [facility] Work Phone: Start: 02-08-2025 End: 02-08-2025 ambulatory Arden De Leon Facility:[facility] Start: 02-07-2025 End: 02-07-2025 Bamboo flowsheet Neyda Lockwood MD Work Phone: [facility] Start: 02-07-2025 End: 02-07-2025 Bamboo flowsheet Neyda Lockwood MD Work Phone: [facility] Start: 02-07-2025 End: 02-07-2025 Office outpatient new 60 minutes Neyda Lockwood MD Work Phone: [facility] [place] Comment on above: Seizure (HCC) (Prima ry Dx); Carotid stenosis, bilateral; Sequelae of cerebral infarction; Gait disturbance; Stroke, lacunar (HCC); Cerebral artery occlusion with cerebral infarction (HCC); Other transient cerebral ischemic attacks and related syndromes; Patent foramen ovale (HHS-HCC); Alteration of awareness Start: 02-07-2025 End: 02-07-2025 ambulatory NEYDA LOCKWOOD Not Available Start: 01-30-2025 End: 01-30-2025 ambulatory WENDY BURDEN Facility:[facility] Start: 01-30-2025 End: 01-30-2025 Patient encounter procedure Aurasantymaximiliano AnnetteCathy De Leon [facility] Start: 01-26-2025 End: 01-26-2025 Bamboo flowsheet Wendy Burden DEVELOPMENT GEOLOGIST Work Phone: [facility] Start: 01-26-2025 End: 01-26-2025 Bamboo flowsheet Wendy Burden DEVELOPMENT GEOLOGIST Work Phone: [facility] Start: 01-26-2025 End: 01-26-2025 Office outpatient visit 25 minutes Wendy Burden DEVELOPMENT GEOLOGIST Work Phone: [facility] Comment on above: Chronic abdominal pa [...] rupture Start: 01-26-2025 End: 01-26-2025 ambulatory WENDY JENISE Not Available Start: 01-16-2025 ambulatory Chris Singh Facility:[facility] Start: 01-16-2025 Registered Recurring Judit mckay MD -[facility] Work Phone: Start: 01-05-2025 Non-patient / Non-visit Yaneth samuel -[facility] Neurology Work Phone: Start: 01-04-2025 End: 01-04-2025 Patient encounter procedure Nigel Valladares MD -[facility] Vascular Surg Work Phone: Start: 01-04-2025 End: 01-04-2025 Refill Wendy Jenise DEVELOPMENT GEOLOGIST Work Phone: [facility] Comment on above: Alteration of awaren ess Epigastric pain (Petra hipolito Dx); Chronic abdominal pain; Gastroesophageal reflux disease, unspecified whether esophagitis present; History of colon polyps; Cerebrovascular accident (CVA), unspecified mechanism (HCC) Start: 01-03-2025 End: 01-03-2025 Refill Wendy Burden NP Work Phone: [facility] Comment on above: Chronic abdominal pa in; Epigastric pain Start: 12-29-2024 End: 12-29-2024 Clinisync Result Encounter Wendy Burden NP Work Phone: [facility] Unsolicited Start: 12-29-2024 End: 12-29-2024 Clinisync Result Encounter Wendy Burden NP Work Phone: [facility] External [facility] Unsolicited Start: 12-22-2024 End: 12-22-2024 Clinisync Result Encounter Wendy Burden NP Work Phone: [facility] External Department Unsolicited Start: 12-22-2024 End: 12-23-2024 Clinisync Result Encounter Wendy Burden NP Work Phone: [facility] External [facility] Unsolicited Start: 12-22-2024 End: 12-23-2024 External Result Encounter Wendy Burden NP Work Phone: [facility] External Department Unsolicited Start: 12-22-2024 End: 12-22-2024 ambulatory Wendy Burden Facility:[facility] Start: 12-22-2024 End: 12-22-2024 Departed Referred Wendy Burden DEVELOPMENT GEOLOGIST-C -[facility] Start: 12-21-2024 End: 12-21-2024 Office outpatient visit 25 minutes Wendy Burden NP Work Phone: [facility] Comment on above: Gastroesophageal ref lux disease, unspecified whether esophagitis present (Primary Dx); Infrarenal abdominal aortic aneurysm (AAA) without rupture (CMS/HCC); Chronic abdominal pain; Dysuria; Epigastric pain; Tobacco dependency Start: 12-21-2024 End: 12-21-2024 ambulatory WENDY JENISE Not Available Start: 12-21-2024 End: 12-21-2024 Bamboo flowsheet Wendy Jenise DEVELOPMENT GEOLOGIST Work Phone: [facility] Start: 12-21-2024 End: 12-21-2024 Bamboo flowsheet Wendy Woodsonenrique DEVELOPMENT GEOLOGIST Work Phone: [facility] Start: 12-19-2024 End: 12-21-2024 Refill Wendy Jenise DEVELOPMENT GEOLOGIST Work Phone: [facility] Comment on above: Alteration of awaren ess referral Start: 12-14-2024 End: 12-14-2024 Clinisync Result Encounter Generic External Data Provider [facility] External Department Unsolicited Start: 12-14-2024 End: 12-14-2024 Clinisync Result Encounter Generic External Data Provider [facility] External Department Unsolicited Start: 11-15-2024 End: 11-15-2024 Orders Only Wendy Burden DEVELOPMENT GEOLOGIST Work Phone: [facility] Comment on above: Mixed hyperlipidemia (CMS/HCC) (Primary Dx) Anxiety Start: 11-14-2024 Registered Recurring Mikhail rosenberg MD Work Phone: [facility] Work Phone: Start: 11-14-2024 End: 11-14-2024 ambulatory Mikhail Moon MD Work Phone: [facility] Work Phone: Start: 11-14-2024 End: 11-14-2024 Patient encounter procedure Mikhail Moon MD Work Phone: [facility] Work Phone: Start: 11-02-2024 End: 11-02-2024 Refill Wendy Jenise DEVELOPMENT GEOLOGIST Work Phone: [facility] Comment on above: Urinary tract infect ion symptoms (Primary Dx); UTI symptoms Start: 10-28-2024 End: 10-28-2024 Refill Wendy Jenise DEVELOPMENT GEOLOGIST Work Phone: [facility] Comment on above: Anxiety (Primary Dx) ; Psychophysiological insomnia Start: 10-27-2024 End: 10-27-2024 Transitional care manage srvc 14 day discharge Wendy Jenise DEVELOPMENT GEOLOGIST Work Phone: [facility] Comment on above: Cerebrovascular acci dent (CVA), unspecified mechanism (CMS/HCC) (Primary Dx); Malignant neoplasm of unspecified part of left bronchus or lung (CMS/HCC); Adenocarcinoma of left lung (CMS/HCC); Mixed hyperlipidemia (CMS/HCC); Tobacco dependency; Peripheral polyneuropathy; Primary hypertension (CMS/HCC); Screening mammogram for breast cancer Start: 10-27-2024 End: 10-27-2024 ambulatory WENDY JENISE Not Available Start: 10-10-2024 Registered Recurring Mikhail rosenberg MD Work Phone: [facility] Work Phone: Start: 10-10-2024 End: 10-10-2024 ambulatory Mikhail Moon MD Work Phone: [facility] Work Phone: Start: 10-10-2024 End: 10-10-2024 Patient encounter procedure Mikhail Moon MD Work Phone: [facility] Work Phone: Start: 10-04-2024 End: 10-04-2024 ambulatory Mikhail Moon MD Work Phone: [facility] Work Phone: Start: 10-04-2024 End: 10-04-2024 Departed Referred Mikhail Moon MD Work Phone: [facility] Start: 09-26-2024 End: 09-26-2024 Bamboo flowsheet Kianna ORDOÑEZ Work Phone: [facility] Start: 09-26-2024 End: 09-26-2024 Bamboo flowsheet Kianna ORDOÑEZ Work Phone: [facility] Start: 09-26-2024 End: 09-26-2024 Office outpatient visit 25 minutes Kianna ORDOÑEZ Work Phone: [facility] Comment on above: Alteration of awaren ess (Primary Dx); History of stroke Start: 09-26-2024 End: 09-26-2024 ambulatory KIANNA ROMAN Not Available Start: 09-12-2024 Registered Recurring Mikhail rosenberg MD Work Phone: [facility] Work Phone: Start: 09-12-2024 Non-patient / Non-visit Mikhail cordova MD Work Phone: [facility] Work Phone: Start: 09-05-2024 Non-patient / Non-visit Mikhail cordova MD Work Phone: [facility] Work Phone: Start: 08-29-2024 Non-patient / Non-visit Mikhail cordova MD Work Phone: [facility] Work Phone: Start: 08-12-2024 Non-patient / Non-visit Mikhail cordova MD Work Phone: [facility] Work Phone: Start: 08-06-2024 Non-patient / Non-visit Mikhail cordova MD Work Phone: [facility]monary Work Phone: Start: 08-04-2024 Non-patient / Non-visit Mikhail cordova MD Work Phone: [facility] Work Phone: Start: 08-02-2024 End: 08-02-2024 Bamboo flowsheet Chris Singh DEVELOPMENT GEOLOGIST Work Phone: [facility] Start: 08-02-2024 End: 08-02-2024 Bamboo flowsheet Chris Singh DEVELOPMENT GEOLOGIST Work Phone: [facility] Start: 08-02-2024 End: 08-02-2024 Office outpatient visit 40 minutes Romel Sampson MD Work Phone: [facility] Comment on above: Alteration of awaren ess; History of stroke Start: 08-02-2024 End: 08-02-2024 ambulatory ROMEL SAMPSON Not Available Start: 08-02-2024 End: 08-02-2024 Patient encounter procedure Chris Singh DEVELOPMENT GEOLOGIST Work Phone: [facility] Comment on above: Medicare annual well ness visit, subsequent (Primary Dx); Other polyneuropathy; Psychophysiological insomnia Start: 08-02-2024 End: 08-02-2024 ambulatory CHRIS SINGH Not Available Start: 07-28-2024 Registered Recurring Shaikh Izzy gunn MD [facility] Work [facility]: Start: 07-28-2024 End: 07-28-2024 ambulatory Shaikh Aung FARFAN Work Phone: [facility] Work Phone: Start: 07-28-2024 End: 07-28-2024 Patient encounter procedure Shaikh Aung FARFAN Work Phone: [facility] Work Phone: Start: 07-18-2024 End: 07-18-2024 Telephone encounter [facility] Comment on above: lacosamide (VIMPAT) Start: 06-27-2024 End: 06-27-2024 Orders Only Chris Singh DEVELOPMENT GEOLOGIST Work Phone: [facility] Comment on above: Moderate COPD (chron ic obstructive pulmonary disease) ([facility]/HCC) Start: 06-21-2024 End: 07-04-2024 Telephone encounter C[facility] Comment on above: Hospital Follow-up Start: 06-21-2024 End: 06-21-2024 ambulatory ERYN [facility] Start: 06-13-2024 End: 06-14-2024 Non-patient / Non-visit Shaikh Aung FARFAN Work Phone: [facility] Work Phone: Start: 05-31-2024 End: 05-31-2024 Office outpatient visit 15 minutes Javier Vilalnueva DO Work Phone: [facility] Comment [...] 05-23-2024 End: 05-23-2024 Bamboo flowsheet Chris Singh DEVELOPMENT GEOLOGIST Work Phone: [facility] Start: 05-23-2024 End: 05-23-2024 Bamboo flowsheet Chris Singh DEVELOPMENT GEOLOGIST Work Phone: [facility] Start: 05-23-2024 End: 05-23-2024 Office outpatient visit 15 minutes Chris Singh DEVELOPMENT GEOLOGIST Work Phone: [facility] Comment on above: Mass of left lung (P rimary Dx) Start: 05-23-2024 End: 05-23-2024 ambulatory CHRIS SINGH Not Available Start: 05-18-2024 End: 05-18-2024 ambulatory [facility] Start: 05-18-2024 End: 05-18-2024 ambulatory [facility] Start: 05-11-2024 End: 05-11-2024 ambulatory MD Shaikh Horan Work Phone: [facility] Work Phone: Start: 05-11-2024 End: 05-11-2024 Patient encounter procedure MD Shaikh Horan Work Phone: [facility] Work Phone: Start: 05-10-2024 End: 05-10-2024 Office outpatient new 45 minutes Javier Villanueva DO Work Phone: [facility] Comment on above: Carcinoma in situ of ascending colon Start: 05-10-2024 End: 05-10-2024 ambulatory JAVIER VILLANUEVA Not Available Start: 05-02-2024 End: 05-02-2024 Refill Chris Singh DEVELOPMENT GEOLOGIST Work Phone: [facility] Comment on above: Gastroesophageal ref lux disease without esophagitis Start: 04-28-2024 ambulatory [facility] Start: 04-21-2024 End: 04-21-2024 Patient encounter procedure MD Shaikh Horan Work Phone: [facility] [place] Work Phone: Start: 04-21-2024 End: 04-21-2024 ambulatory MD Shaikh Horan Work Phone: [facility] Work Phone: Start: 04-06-2024 ambulatory MD Shaikh Key kovacs Work Phone: [facility] Work Phone: Start: 04-06-2024 Non-patient / Non-visit MD Reynaldo Horan Work Phone: [facility] Work Phone: Start: 03-25-2024 Non-patient / Non-visit MD Reynaldo Horan Work Phone: [facility] Work Phone: Start: 03-25-2024 End: 03-25-2024 Admission to same day surgery center MD Shaikh Horan Work Phone: [facility] Work Phone: Start: 03-25-2024 End: 03-25-2024 ambulatory MD Shaikh Horan Work Phone: [facility] Work Phone: Start: 03-24-2024 End: 03-24-2024 Bamboo flowsheet Chris Singh DEVELOPMENT GEOLOGIST Work Phone: [facility] Start: 03-24-2024 End: 03-24-2024 Bamboo flowsheet Chris Singh DEVELOPMENT GEOLOGIST Work Phone: [facility] Start: 03-24-2024 End: 03-24-2024 Office outpatient visit 15 minutes Chris Singh DEVELOPMENT GEOLOGIST Work Phone: [facility] Comment on above: Primary hypertension (CMS/HCC) (Primary Dx); Hyperlipidemia, unspecified hyperlipidemia type (CMS/HCC) Start: 03-24-2024 End: 03-24-2024 ambulatory CHRIS SINGH Not Available Start: 03-23-2024 End: 03-23-2024 ambulatory DIANA [facility] Start: 03-15-2024 End: 03-17-2024 Clinisync Result [...] 03-09-2024 ambulatory MD Shaikh Horan Work Phone: [facility] Work Phone: Start: 03-09-2024 End: 03-09-2024 Departed Referred MD Shaikh Horan Work Phone: [facility] Start: 03-07-2024 End: 03-07-2024 Refill Chris Singh DEVELOPMENT GEOLOGIST Work Phone: [facility] Comment on above: Mixed hyperlipidemia (CMS/HCC) (Primary Dx); Hyperlipidemia, unspecified hyperlipidemia type (CMS/HCC) Start: 03-02-2024 End: 03-02-2024 Refill Chris Singh DEVELOPMENT GEOLOGIST Work Phone: [facility] Comment on above: Moderate COPD (chron ic obstructive pulmonary disease) (CMS/HCC) (Primary Dx) Start: 03-01-2024 End: 03-01-2024 Clinisync Result Encounter Chris Singh DEVELOPMENT GEOLOGIST Work Phone: [facility] External Department Unsolicited Start: 03-01-2024 End: 03-01-2024 Clinisync Result Encounter Chris Singh DEVELOPMENT GEOLOGIST Work Phone: [facility] External Department Unsolicited Start: 03-01-2024 End: 03-01-2024 ambulatory SHAIKH AUNG Facility:[facility] Start: 03-01-2024 End: 03-01-2024 Patient encounter procedure Arden De Leon [facility] Start: 02-23-2024 Non-patient / Non-visit MD Reynaldo Horan Work Phone: [facility] Work Phone: Start: 12-30-2023 End: 12-30-2023 ambulatory MD Shaikh Horan Work Phone: [facility] Work Phone: Start: 12-30-2023 End: 12-30-2023 Patient encounter procedure MD Shaikh Horan Work Phone: [facility] Work Phone: Start: 12-27-2023 End: 12-27-2023 Emergency department patient visit MD Shaikh Horan Work Phone: [facility] Work Phone: Start: 08-20-2023 Orders Only Shaikh Aung FARFAN Work Phone: [facility] Comment on above: RLS (restless legs s yndrome) (Primary Dx); Moderate COPD (chronic obstructive pulmonary disease) (CMS/HCC) Start: 07-09-2023 Patient encounter procedure Shaikh Aung FARFAN Work Phone: [facility] Start: 03-25-2023 End: 03-25-2023 ambulatory Nigel Valladares Other [facility] Other Start: 03-25-2023 Office outpatient vi sit 15 minutes Nigel Valladares [facility] Start: 02-09-2023 End: 02-09-2023 ambulatory Cherelle Bautista Other [facility] Other Start: 02-09-2023 [facility] visit new patient Cherelle grissom [facility] Start: 01-07-2023 End: 01-07-2023 Patient encounter procedure Brigette Martini [facility] Start: 01-01-2023 End: 01-01-2023 Patient encounter procedure Brigette Martini [facility] Start: 12-29-2022 End: 12-29-2022 Patient encounter procedure Brigette Martini [facility] Start: 12-24-2022 End: 12-24-2022 Patient encounter procedure Brigette Martini [facility] Start: 12-24-2022 End: 02-19-2023 Pre-admission assessment Jorge MERCEDES [facility] Start: 12-24-2022 End: 12-24-2022 Patient encounter procedure Brigette Martini [facility] Start: 11-11-2022 End: 11-11-2022 ambulatory HURTADO H FAWWAD Facility:[facility] Start: 10-27-2022 End: 10-28-2022 ambulatory LEIGH THOMPSON . Facility:[facility] Start: 09-01-2022 End: 09-01-[address] ARMANDO WESTON . Facility:[facility] Start: 07-24-2022 End: 07-25-2022 ambulatory HURTADO H FAWWAD Facility:[facility] Start: 07-14-2022 ambulatory HURTADO H FAWWAMaximiliano Facilit y:[facility] Start: 07-09-2022 End: 07-10-2022 ambulatory HURTADO H FAWWAD Facility:[facility] Start: 07-04-2022 ambulatory HURTADO H FAWWAMaximiliano Facilit y:[facility] Start: 06-09-2022 End: 06-09-2022 Patient encounter procedure [facility] Start: 05-07-2022 End: 05-08-2022 ambulatory SHAIKH Anju HORAN Facility:[facility] Procedures Date Procedure Procedure Detail Performing Clinician Start: 02-21-2025 CRYOTHERAPY SKIN LESION Sulema Juan ELECTRICIAN APPRENTICE-COTTON TIER Work Phone: Start: 02-11-2025 CT angiography of ne ck vessels Start: 02-11-2025 Plain chest X-ray Start: 02-11-2025 Computed tomography of abdomen and pelvis with contrast Start: 02-11-2025 CT angiography of head Start: 02-11-2025 CT of chest Start: 02-11-2025 CT of head without contrast Start: 01-16-2025 CT of chest without contrast Start: 01-04-2025 US scan of aorta Hipolito somers ELECTRICIAN APPRENTICE Work Phone: Start: 12-29-2024 CT ABDOMEN PELVIS W CON Wendy Burden DEVELOPMENT GEOLOGIST Work Phone: Start: 12-22-2024 Urine culture Hipolito hurst ELECTRICIAN APPRENTICE Work Phone: Start: 12-22-2024 Culture bacterial quanttative colony count urine Wendy Burden DEVELOPMENT GEOLOGIST Work Phone: Start: 12-22-2024 URINE CULTURE - [facility] Margoth Burden DEVELOPMENT GEOLOGIST Work Phone: Start: 12-14-2024 ALL CBC WITH AUTO DIFF Generic External Data Provider Start: 10-04-2024 Urine culture Imad Sadie rosenberg MD Work Phone: Start: 06-21-2024 Colonoscopy Chrismaddy serrano DEVELOPMENT GEOLOGIST Work Phone: Start: 05-24-2024 [facility] CONSULT Javier Villanueva DO Work Phone: Start: 04-21-2024 Carcinoembryonic antigen cea Chris Singh Comment on above: Result Comment: Demarco palencia tumor marker results determined by assays using different manufacturers or methods may not be comparable. [facility] lockstitch collar setter and method: [employer] DXI, 2 SITE IMMUNOENZYMATIC ?SANDWICH? ASSAY. PERFORMED BY: [place] [id number] PATHOLOGIST DISPLAY DESIGNER JENNIFER ALANIZ M.D. Performed By: #### C EA #### [address] Start: 04-21-2024 Computed tomography of abdomen [...] ALL CBC WITH AUTO DIFF Chris Singh DEVELOPMENT GEOLOGIST Work Phone: Start: 12-30-2023 US scan of [...] tape Brigette Martini Cholecystectomy Brigette Magallon saad Colonoscopy Arden De Leon Hysterectomy Brigette Martini Rotator cuff includi ng muscles and tendons (body structure) Brigette Cerratoz Plan of Treatment Date Care Activity Detail Author Start: 06-21-2034 Screening for malign ant neoplasm of colon [facility] Start: 03-25-2034 Screening for malign ant neoplasm of colon [facility] Start: 04-12-2026 Screening for malign ant neoplasm of colon [facility] Start: 08-02-2025 Medicare Annual Wellness (AWV) Medicare Annual Wellness (AWV) [facility] Start: 06-15-2025 Adult BMI Screening Adult BMI Screen ing [facility] Start: 06-15-2025 Tobacco Screening Tobacco Screening [facility] Start: 05-02-2025 End: 05-02-2025 Patient encounter procedure 05/02/2025 12:45 PM EDT [facility] [address] [facility] [address] [place] [address] Neyda Lockwood MD [address] [facility] [address] [place] [address] [facility] [place] Start: 05-01-2025 End: 05-01-2025 Patient encounter procedure 05/01/2025 9:40 AM EDT Office Visit [facility] [address] [place] [phone] Wendy Burden, CLOTILDE [address] [place] [phone] [facility] Start: 04-11-2025 End: 04-11-2025 Patient encounter procedure 04/11/2025 10:15 AM EDT [facility] [address] [place] [phone] Neyda Lockwood MD [address] [facility] [address] [place] [address] [facility] Start: 03-23-2025 End: 03-23-2025 Patient encounter procedure 03/23/2025 9:05 AM EDT Office Visit [facility] [facility] [address] [place] [phone] Sulema Juan, ELECTRICIAN APPRENTICE-COTTON TIER [address] [place] [address] [facility] Start: 03-13-2025 Influenza vaccination [facility] Start: 03-07-2025 End: 03-07-2025 [facility] Comment on above: Arrived Start: 02-24-2025 End: 02-24-2025 ambulatory 02/24/2025 10:30 AM EDT Evaluation [facility] [address] [place] [address] Rachael Jessica, PT [facility] Start: 02-22-2025 End: 02-22-2025 Patient encounter procedure 02/22/2025 11:30 AM EDT Office Visit [facility] [address] [place] [address] Wendy Burden NP [address] [place] [address] [facility] Start: 02-21-2025 End: 02-21-2025 Patient encounter procedure 02/21/2025 1:25 PM EDT Office Visit [facility] [address] [place] [phone] Sulema Juan, ELECTRICIAN APPRENTICE-COTTON TIER [address] [place] [address] Arrived [facility] Comment on above: Arrived Start: 02-14-2025 [facility] Start: 02-11-2025 Referral to neurologist [facility] Start: 02-11-2025 Lamotrigine measurement [facility] Start: 02-11-2025 Hospital admission [facility] Start: 02-11-2025 [facility] Start: 02-11-2025 Bacteria identified in Blood by Culture Blood Culture [facility] Start: 02-07-2025 End: 02-07-2027 Echocardiogram 2D complete Echocardiogram 2D complete Echocardiography Routine Cerebral artery occlusion with cerebral infarction (HCC) Other transient cerebral ischemic attacks and related syndromes Patent foramen ovale (HHS-HCC) Expected: 02/07/2025 (Approximate), Expires: 02/07/2027 [facility] Comment on above: Expected: 02/07/2025 (Approximate), Expires: 02/07/2027 Start: 02-07-2025 End: 02-07-2026 US.doppler Carotid arteries - bilateral Vascular US carotid artery duplex bilateral Imaging Routine Carotid stenosis, bilateral Stroke, lacunar (HCC) Cerebral artery occlusion with cerebral infarction (HCC) Expected: 02/07/2025, Expires: 02/07/2026 [facility] Work Phone: Comment on above: Expected: 02/07/2025 , Expires: 02/07/2026 Start: 02-07-2025 End: 02-07-2025 Patient encounter procedure [facility] Comment on above: Arrived Start: 01-26-2025 End: 01-26-2025 Patient encounter procedure [facility] Comment on above: Arrived Start: 01-04-2025 US scan of aorta US aorta [facility] Start: 12-21-2024 End: 12-21-2024 Patient encounter procedure [facility] Comment on above: Arrived Start: 12-21-2024 End: 12-21-2025 Amylase [Enzymatic activity/volume] in Serum or Plasma Amylase Lab Routine Epigastric pain Expected: 12/21/2024 (Approximate), Expires: 12/21/2025 [facility] Comment on above: Expected: 12/21/2024 (Approximate), Expires: 12/21/2025 Start: 12-21-2024 End: 12-21-2025 Bacteria identified in Urine by Culture Urine culture (clean catch) Microbiology Routine Dysuria Expected: 12/21/2024 (Approximate), Expires: 12/21/2025 [facility] Comment on above: Expected: 12/21/2024 (Approximate), Expires: 12/21/2025 Start: 12-21-2024 End: 12-21-2025 Comprehensive metabolic 2000 panel - Serum or Plasma Comprehensive metabolic panel Lab Routine Chronic abdominal pain Dysuria Epigastric pain Expected: 12/21/2024 (Approximate), Expires: 12/21/2025 [facility] Comment on above: Expected: 12/21/2024 (Approximate), Expires: 12/21/2025 Start: 12-21-2024 End: 12-21-2025 CT Abdomen and Pelvis W contrast IV CT abdomen pelvis w IV contrast Imaging High Priority Infrarenal abdominal aortic aneurysm (AAA) without rupture (CMS/HCC) Chronic abdominal pain Expected: 12/21/2024 (Approximate), Expires: 12/21/2025 [facility] Work Phone: Comment on above: Expected: 12/21/2024 (Approximate), Expires: 12/21/2025 Start: 12-21-2024 End: 12-21-2025 Lipase [Enzymatic activity/volume] in Serum or Plasma Lipase Lab Routine Epigastric pain Expected: 12/21/2024 (Approximate), Expires: 12/21/2025 [facility] Comment on above: Expected: 12/21/2024 (Approximate), Expires: 12/21/2025 Start: 12-21-2024 End: 12-21-2025 Urinalysis complete panel - Urine Urinalysis with reflex microscopic (clean catch) Lab Routine Dysuria Expected: 12/21/2024 (Approximate), Expires: 12/21/2025 [facility] Comment on above: Expected: 12/21/2024 (Approximate), Expires: 12/21/2025 Start: 11-15-2024 End: 11-15-2025 Lipid 1996 panel - Serum or Plasma Lipid panel Lab Routine Mixed hyperlipidemia (CMS/HCC) Expected: 11/15/2024 (Approximate), Expires: 11/15/2025 [facility] Work Phone: Comment on above: Expected: 11/15/2024 (Approximate), Expires: 11/15/2025 Start: 10-27-2024 End: 12-27-2025 MG Breast - bilateral Screening Bilateral screening mammogram Imaging Routine Screening mammogram for breast cancer Expected: 10/27/2024 (Approximate), Expires: 12/27/2025 [facility] Work Phone: Comment on above: Expected: 10/27/2024 (Approximate), Expires: 12/27/2025 Start: 10-24-2024 End: 10-24-2024 Patient encounter procedure 10/24/2024 9:20 AM EDT Office Visit [facility] [address] [place] [address] Kianna Roman PA [address] [place], [place] [phone] [facility] Start: 10-04-2024 Urine culture [facility] Start: 10-04-2024 Bacteria identified in Urine by Culture Urine Culture [facility] Start: 09-26-2024 End: 09-26-2024 Patient encounter procedure [facility] Comment on above: Arrived Start: 09-13-2024 End: 09-13-2024 Patient encounter procedure 09/13/2024 10:00 AM EST Office Visit NERE[facility] ART[facility] [address] [place] [address] Chris Singh NP [address] [place] [address] [facility] Start: 08-02-2024 End: 08-02-2024 Patient encounter procedure [facility] Comment on above: Arrived Start: 08-01-2024 End: 08-01-2024 Patient encounter procedure 08/01/2024 10:30 AM EST Office Visit [facility] [address] [place] [phone] Chris Singh NP [address] [place] [address] [facility] Start: 07-09-2024 Medicare Annual Wellness (AWV) Medicare Annual Wellness (AWV) [facility] Start: 06-29-2024 End: 06-29-2024 Patient encounter procedure 06/29/2024 9:45 AM EST Office Visit [facility] [address] [place] [phone] Javier Villanueva DO [address] [place] [address] [facility] Start: 06-23-2024 End: 03-24-2025 Lipid 1996 panel - Serum or Plasma Lipid panel Lab Routine Hyperlipidemia, unspecified hyperlipidemia type (CMS/HCC) Expected: 06/23/2024 (Approximate), Expires: 03/24/2025 [facility] Work Phone: Comment on above: Expected: 06/23/2024 (Approximate), Expires: 03/24/2025 Start: 06-23-2024 End: 06-23-2024 Patient encounter procedure 06/23/2024 10:00 AM EST Office Visit [facility] [address] [place] [address] Chris Singh NP [address] [place] [address] [facility] Start: 05-31-2024 End: 05-31-2024 Patient encounter procedure 05/31/2024 10:30 AM EST Office Visit [facility] [address] [place] [phone] Javier Villanueva, DO [address] [place] [address] [facility] Start: 05-03-2024 End: 05-03-2024 Patient encounter procedure 05/03/2024 2:00 PM EDT Consult [facility] [address] [place] [phone] Javier Villanueva, DO [address] [place] [address] [facility] Start: 04-06-2024 Patient referral [facility] Work Phone: Start: 03-25-2024 [facility] Start: 03-24-2024 End: 03-24-2024 Patient encounter procedure [facility] Comment on above: Arrived Start: 03-13-2024 Influenza vaccination [facility] Start: 01-10-2024 Influenza vaccination Influenza Vacc ine (#1) [facility] Comment on above: Postponed from 03/13 (Patient Refused) Start: 12-27-2023 Bacteria identified in Blood by Culture [facility] Start: 12-27-2023 Bacteria identified in Urine by Culture [facility] Start: 12-27-2023 Blood culture for bacteria, including anaerobic screen Blood Culture [facility] Start: 10-08-2023 End: 10-08-2023 Patient encounter procedure 10/08/2023 2:00 PM EDT Office Visit [facility] [address] [place] [address] Shaikh Horan MD [address] [place] [address] [facility] Start: 07-03-2023 Screening for malign ant neoplasm of breast Mammogram [facility] Start: 2017 Fall Risk Screening Fall Risk Screen ing [facility] Start: 2002 Administration of varicella zoster vaccine Zoster (Shingles) Vaccine (1 of 2) [facility] Start: 1971 DTaP,Tdap and Td Vaccines (1 - Tdap) DTaP,Tdap and Td Vaccines (1 - Tdap) [facility] Start: 1970 Adult BMI Follow Up Plan Adult BMI Follow Up Plan [facility] Start: 1964 Depression Screening Depression Scre ening [facility] Start: 1952 Screening for malign ant neoplasm of colon [facility] Bacteria identified in Urine by Culture Urine culture Microbiology Routine 12/22/2024 10:41 AM EDT [facility] Work Phone: CT Chest WO contrast [facility] CT with contrast for radiotherapy planning [facility] Lacosamide [Mass/volume] in Serum or Plasma [facility] Patient Education [facility] Work Phone: Patient referral [facility] Work Phone: URINE CULTURE - [facility] URINE CULTU RE - [facility] Lab Routine 12/22/2024 10:41 AM EDT [facility] Work Phone: US Thoracic and abdominal aorta [facility] Immunizations Immunization Date Immunization Notes Care Provider Izzy gutierrez 07-09-2022 pneumococcal 20-ananya nt conjugate vaccine Brigette Martini [facility] [place] 07-03-2022 pneumococcal conjuga te vaccine, 13 valent Brigette Martini [facility] Payers Date Payer Category Payer Medicare HMO [id number] 2023 Unknown [id number] 2023 Medicare (Managed Care) 1.2. [id number] 2023 Private Health Insurance [id number] 2022 Unknown [employer] [id number] 2022-Present [address] [place] [address] [id number] .[id number] 2020 Unknown [id number] 2013 Medicare [id number] 2013 Medicare [id number] 1959 Self-pay 1950 Unknown [id number] 2.16.840.1.465587.3.579.2 .593 1952 Unknown [id number] 2.16.840.1.286043.3.579.2 .593 1952 Unknown [id number] 2.16.840.1.719804.3.579.2 .593 1952 Unknown [id number] 2.16.840.1.375605.3.579.2 .593 1952 Unknown [id number] 2.16.840.1.931508.3.579.2 .593 1952 Unknown [id number] 2.16.840.1.451286.3.579.2 .593 1952 Unknown [id number] 2.16.840.1.729660.3.579.2 .593 1952 Unknown [id number] 2.16.840.1.946828.3.579.2 .593 1952 Unknown [id number] 2.16.840.1.909405.3.579.2 .727 1952 Unknown [id number] 2.16.840.1.232015.3.579.2 .727 1952 Unknown [id number] 2.16.840.1.309721.3.579.2 .727 1952 Unknown [id number] 2.16.840.1.555717.3.579.2 .125 1952 Unknown [id number] 2.16.840.1.519524.3.579.2 .125 1952 Unknown [id number] 2.16.840.1.001526.3.579.2 .1258 1952 Unknown [id number] 2.16.840.1.129613.3.579.2 .1258 1952 Unknown [id number] 2.16.840.1.665355.3.579.2 .1258 1952 Unknown [id number] 2.16.840.1.620685.3.579.2 .1258 1952 Unknown [id number] 2.16.840.1.564629.3.579.2 .1258 1952 Unknown [id number] 2.16.840.1.040207.3.579.2 .1258 1952 Unknown [id number] 2.16.840.1.875497.3.579.2 .1258 1952 Unknown [id number] 2.16.840.1.888142.3.579.2 .1258 1952 Unknown [id number] 2.16.840.1.701003.3.579.2 .1258 1952 Unknown [id number] 2.16.840.1.282933.3.579.2 .1259 1952 Unknown [id number] 2.16.840.1.222461.3.579.2 .1259 1952 Unknown [id number] 2.16.840.1.144454.3.579.2 .1259 1952 Unknown [id number] 2.16.840.1.816132.3.579.2 .727 Medicare [employer] [facility] [id number] [id number] Private Health Insurance [employer] [facility] [id number] Unknown [id number] 2.16.840.1.234847.3.579.2 .531 Unknown [id number] 2.16.840.1.486137.3.579.2 .531 Unknown [id number] 2.16.840.1.117574.3.579.2 .531 Unknown [id number] 2.16.840.1.212121.3.579.2 .531 Unknown [id number] 2.16.840.1.819795.3.579.2 .531 Unknown [id number] 2.16.840.1.088374.3.579.2 .531 Unknown [id number] 2.16.840.1.855987.3.579.2 .531 Social History Date Type Detail Facility Tobacco smoking status [facility] Start: 07-09-2023 End: 12-08-2023 Sex Assigned At Female [facility] Start: 12-24-2022 Tobacco smoking status Heavy t obacco smoker (finding) [facility] Tobacco smoking status Never [facility] Start: 07-09-2023 End: 02-12-2025 Tobacco smoking status NHIS Smokes tobacco daily [facility] End: 12-28-2023 History of tobacco use Cigarette Smoker [facility] Start: 07-09-2023 End: 12-08-2023 Cigarettes smoked current (pack per day) - Reported 1 [facility] Start: 07-09-2023 End: 01-04-2024 Tobacco use and exposure Smokeless tobacco non-user [facility] Start: 07-09-2023 End: 02-22-2025 Alcohol intake Lifetime non-drinker (finding) [facility] Start: 1950 Sex Assigned At Not on file [facility] Start: 1950 Sex Assigned At Female F [facility] Start: 12-27-2023 End: 12-28-2023 Tobacco smoking status NHIS Smoker (finding) [facility] Start: 01-04-2024 End: 03-25-2024 Tobacco smoking status [facility] Ex-smoker (finding) [facility] History of tobacco use Passive smoker NOM [...] Start: 06-15-2024 Alcoholic beverage intake [facility]-drinker [facility]finding[facility] Start: 06-13-2024 End: 11-14-2024 Sex Female (finding) [facility] Start: 01-30-2025 Tobacco smoking status Light t obacco smoker (finding) [facility] Start: 02-14-2025 SDOH Follow up SDOH Follow up [facility] Work Phone: Goals Date Patient Goal Desired Activity /State Personal health goal Comment on above: Formatting of this n ote might be different from the original. Evaluation of progress towards goal: Significant other hopes patient will be able to return home Functional Status Date Assessment Result Facility 12-24-2022 Functional Status N/A [facility] Clinical Notes 06-09-2022 to 03-07-2025 Neyda Lockwood MD - 03/07/2025 4:15 PM EDTMnickolas Lockwood MD - 03/07/2025 4:15 PM EDTMnickolas Lockwood MD - 03/07/2025 4:15 PM EDTMnickolas Lockwood MD - 03/07/2025 4:15 PM EDTMnickolas Lockwood MD - 03/07/2025 4:15 PM EDT Note Date & Type Note Facility 03-07-2025 History of Present illness Narrative Associated Problem(s): Seizure (HCC) --- presumed epilepsy. Likely focal onset given infarcts. Driving - does not drive. WWE - postmenopausal. (Continue current regimen.) LTG, LCM levels. (Still not done) Amb EEG x 72 h. Associated Problem(s): Carotid stenosis, bilateral Get recent US carotids. Associated Problem(s): Sequelae of cerebral infarction Get echo when done. Associated Problem(s): Gait disturbance (PT completed.) Associated Problem(s): Loss of consciousness (HCC) [facility] records - neuro consult, EEG result. Images from the original note were not included. Outpatient Progress Note Patient: Bhupendra Rubi Dept: Neurology : 1950 Appt Date: 03/07/2025 Prev Appt: 02/07/2025 Chief Complaint Patient presents with Seizures Appointment Note -- [facility] 02/11/25 Seizure Assessment and Plan - Assessment & Plan Loss of consciousness (HCC) Get [facility] records - neuro consult, EEG result. Seizure [...] resolved by the time ambulance arrived. Adm [place], teleneurology recommended adding LCM. LoC - was at [facility]. Hot day. Sat down on a bench. 3-4' in felt dizzy, leaned over to L. Son was talking to pt but she couldn't respond. Urinary incontinence. No tongue or cheek biting. -> [facility] ER, admitted. Apparently BP low on adm. Failed Onset Semeiology Aetiology Trigger Preg EEG (02/2025, [facility]) - ____ (06/2024, [facility], apparently while adm [place]) - stuporous, gen theta; also read as asymmetry incr background L hem, no mention of skull defect, interp'd as L hem dysfunction Amb EEG VEEG (06/2024, [facility], 2 d) - stupor/theta, improving to lethargy/6 Hz, then to alert/9 Hz; SW T7>F7 x 2, T8>P8 x 1 ASHWINI MR (02/2025, [facility], c/s Gd - infarct L MCA post div; also R fro; lacunes B BG; ^T2/FLAIR . . . . (09/2024, [place]) - infarct L post fro-par-tem +GRE, R fro, L cbl, R>L caudate . . . . (06/2024, [place]) - similar PET SPECT Imaging Testing Surgery [...] Motor - ___, unchanged: ___, orig: RUE 10/15 generally Sens - ___, unchanged: ___, orig: [...] 5' 2 Wt 145 lb BMI 26.52 kg/m OB Status Hysterectomy Smoking Status Former BSA 1.7 m Review of Systems - . Const: [...] mg) by mouth Daily 90 tablet 0 Qvncunx-Gyzmuthdubx-Sbgkqntgzd (Breztri Aerosphere) 160-9-4.8 MCG/ACT aerosol Inhale 2 [...] times daily as needed for spasm lacosamide (Vimpat) 100 MG [...] encounter medications on file as of 03/07/2025. Neyda Lockwood M.D. [facility] ? [address] ? [place] [address] ? ? fax Neurology ? Clinical Neurophysiology ? Epilepsy ? Sleep Disorders ? Clinical Informatics documented in this encounter [facility] 02-22-2025 History of Present illness Narrative Associated [...] (cerebral vascular accident) (HCC) recent hospitalization at [facility] around 10/04/24, was also sent to [...] note were not included. Bhupendra Wilburn [place] is a 74 y.o. female presents with chief complaint of Hospital Follow-up HPI: Here for hospital follow up Passed out at [facility]: see ER notes for HPI I have [...] daily atorvastatin (LIPITOR) 80 mg, Oral, Daily Gptmmif-Gufpohxqavo-Jsqcmcyaut (Breztri Aerosphere) 160-9-4.8 MCG/ACT aerosol 2 puffs, [...] Continue with oncology CVA (cerebral vascular accident) ([facility]) recent hospitalization at [facility] around 10/04/24, was also sent to [place] for rehab as well Current meds: eliquis [...] under the care of Dr Mandie Nunez ([facility]) Under the care of neurology documented in this encounter [facility] 02-22-2025 Instructions Wendy Burden NP - 02/22/2025 11:30 AM EDT I will give you a ONE TIME script for pain meds: One pill daily documented in this encounter [facility] 02-21-2025 History of Present illness Narrative Rash [...] limited to risks of scarring, darker or cafeteria manager pigmentary changes, recurrence, incomplete removal and infection. [...] any new/changing lesions documented in this encounter [facility] 02-11-2025 Radiology Diagnostic study note [facility] [place] [address] [place] [address] CT Scan Report Signed Patient: Bhupendra Rubi MR#: [id number] : 1950 Acct:[id number] Age/Sex: 74 / F ADM Date: 5 Loc: ER Room: Type: [facility] ER Attending Dr: Copies to: Isabella Brown MD~ Ordering Provider: Isabella Brown MD Date of Service: 02/11/25 CT/CT angio abdomen pelvis: known aneurysm, sudden abd pain ([id number]) CT/CT angio chest: seizure, arreola CT angio [...] Salazar M.D. 02/11/2025 2:01 PM Dictation Location: [facility]- Transcribed By: JOSE MIGUEL 02/11/25 1401 Dictated By: Neyda Salazar II, MD 02/11/25 1350 Signed By: 02/11/25 1401 [facility] Work Phone: 02-11-2025 Radiology Diagnostic study note [facility] [place] [address] CT Scan Report Signed Patient: Bhupendra Rubi MR#: [id number] : 1950 Acct:[id number] Age/Sex: 74 / F ADM Date: 5 Loc: ER Room: Type: PRE ER Attending Dr: Copies to: Isabella Brown MD~ Ordering Provider: Isabella Brown MD Date of Service: 02/11/25 CT/CT angio head: seizure, arreola ([id number]) CT/CT head/brain wo con: seizure, arreola ([id number]) CT/CT angio neck: SYNCOPAL EPISODE VS SEIZURE [...] Salazar M.D. 02/11/2025 1:49 PM Dictation Location: [place] [address] Transcribed By: JOSE MIGUEL 02/11/25 1349 Dictated By: Neyda Salazar II, MD 02/11/25 1338 Signed By: 02/11/25 1349 [facility] Work Phone: 02-08-2025 Note Progress Note-Physic mich Patient: BHUPENDRA RUBI Age: 74 years Sex: Female : 1950 Associated Diagnoses: None Author: Dre Robert Jr., DO Postoperative Information Postoperative disposition: Postoperative disposition: Home. Optimetrix number: Optimetrix number [id number]. Anesthetic utilized: General. Physical Examination Vital Signs [...] Ambulatory Surgery Unit, and To home ). [facility] Comment on above: Result Comment: Elec tronically [...] symptoms. ??? Medicines. These may include: ? Gtba-yin-napcrlg antacids. ? Medicines that make your stomach [...] ? Fatty foods, like fried foods. ? Abbott fruits, like oranges or lemon. ? Other [...] not drink alcohol. General instructions ??? Take wxze-jao-mofgdmd and prescription medicines only as told by [...] right away. Call (more content not included)... [facility] 02-08-2025 Note Progress Note-Physic mich Patient: BHUPENDRA RUBI [facility]: [id number] Age: 74 years Sex: Female : 1950 [...] spasm, # 80 tab(s), Refills(s) 0, Pharmacy: [id number], 159, cm, 01/30/25 12:14:00 EDT, Height/Length Dosing, 63.6, kg, 01/30/25 12:14:00 EDT, Weight Dosing Trulance 3 mg oral tablet: 3 mg = 1 tab(s), Oral, Daily, # 30 tab(s), Refills(s) 6, Pharmacy: [id number], 159, cm, 01/30/25 12:14:00 EDT, Height/Length Dosing, 63.6, kg, 01/30/25 12:14:00 EDT, Weight Dosing esomeprazole 40 mg Cap-EC: 40 mg = 1 cap(s), Oral, Daily, # 90 cap(s), Refills(s) 0, Pharmacy: [facility], 159, cm, 12/24/22 10:00:00 EDT, Height/Length Dosing, [...] All Problems Acid reflux / SNOMED CT 987640606 / Confirmed Bilateral flank pain / SNOMED CT 824382136 / Confirmed Bloating / SNOMED CT 811320516 / Confirmed Chronic constipation / SNOMED CT 117331891 / Confirmed Dysuria / SNOMED CT 42038740 / Confirmed Heart disease / SNOMED CT 94817481 / Confirmed History of colon polyps / SNOMED CT 9854687547 / Confirmed History of prolapse of bladder / SNOMED CT 929654625 / Confirmed Hyperlipidemia / SNOMED CT 86614171 / Confirmed Hypertension / SNOMED CT 5200127247 / Confirmed Infrequent urination / SNOMED CT 134487813 / Confirmed Mixed incontinence / SNOMED CT 42554080 / Confirmed Personal history of transient ischemic attack / SNOMED CT 9813704034 / Confirmed Straining during bowel movements / SNOMED CT 96764776 / Confirmed Stress-related physiological response affecting medical condition / SNOMED CT 68344704 / Confirmed Tobacco use / SNOMED CT 0391464507 / Confirmed Upper abdominal pain / SNOMED CT 382748219 / Confirmed Histories Past Medical History: No active or resolved past medical history items have been selected or recorded. Procedure history: Introduction of tension free vaginal tape (370281877) in 1989 at 39 Years. Hysterectomy (524038533). Cholecystectomy (10989659). Rotator cuff (70619484). Colonoscopy (883730364). Social History Social & Psychosocial Habits Tobacco 01/30/2025 Tobacco Use: 10 or more (more content not included)... [facility] Comment on above: Result Comment: Elec tronically Signed By: Dre Robert Jr., DO.holger\Date and Time Signed: 02/08/25 09:38 EDT 02-07-2025 [...] bubble study. Associated Problem(s): Gait disturbance PT ([facility]). Images from the original note were [...] resolved by the time ambulance arrived. Adm [place], teleneurology recommended adding LCM. Failed Onset Semeiology Aetiology Trigger Preg EEG (06/2024, [facility], apparently while adm [place]) - stuporous, gen theta; also read as [...] R arm weakness Imaging MR brain (09/2024, [place]) - infarct L post fro-par-tem +GRE, R fro, L cbl, R>L caudate . . . . (06/2024, [place]) - similar Testing Surgery carotid endarterectomy (~2011, [...] in all four extremities, including at least asset protection greeter, finger abductors, biceps, triceps, deltoid, toe flexors [...] mg) by mouth Daily 90 tablet 0 Efibpqr-Aehawluafik-Nzcmhbgaqf (Breztri Aerosphere) 160-9-4.8 MCG/ACT aerosol Inhale 2 [...] file as of 02/07/2025. Neyda Lockwood M.D. [facility] ? [address] ? [place], [place] [address] ? ? fax Neurology ? Clinical Neurophysiology ? Epilepsy ? Sleep Disorders ? Clinical Informatics documented in this encounter [facility] 01-30-2025 Evaluation + Plan note Future Scheduled ZztgxKbozs-2-Cjwnkthhare 01/30/25Antimitochondrial Antibody, Quantitative 01/30/25Alkaline Phosphatase Isoenzymes 01/30/25Smooth Muscle Antibody Screen 01/30/25ANA w/Reflex if POS 01/30/25IgG, Quant. 01/30/25 [facility] 01-26-2025 History of Present illness Narrative Associated Problem(s): Infrarenal abdominal aortic aneurysm (AAA) without rupture Call was placed to vascular office Associated Problem(s): CVA (cerebral vascular accident) (HCC) recent hospitalization at [facility] around 10/04/24, was also sent to [...] of the risks of continued smoking: stroke, OH, all forms of cancer, lung disease, and [...] of the risks of continued smoking: stroke, OH, all forms of cancer, lung disease, and [...] required that the pt be seen in [facility], the pt and SO declined going to [place] for this. She is also not happy with local Neurologist in [place]. I did place a referral for Neurology [...] daily atorvastatin (LIPITOR) 80 mg, Oral, Daily Cizqubr-Qfnzesojcez-Zwptujnhyh (Breztri Aerosphere) 160-9-4.8 MCG/ACT aerosol 2 puffs, [...] of the risks of continued smoking: stroke, OH, all forms of cancer, lung disease, and [...] (cerebral vascular accident) (HCC) recent hospitalization at [facility] around 10/04/24, was also sent to [...] of the risks of continued smoking: stroke, OH, all forms of cancer, lung disease, and . Options for quitting smoking include: cold turkey, hypnosis, acupuncture, nicotine replacement meds (gum, lozenges, and patches), Buproprion, and Varenicline. At this time pt is encouraged to evaluate their goals for wanting to quit smoking, and reach out to provider when ready to start this process documented in this encounter [facility] 01-26-2025 Instructions Wendy Burden NP - 01/26/2025 10:30 AM EDT Appt with GI: next week Neurology: Dr Lockwood, [facility] building on [address] documented in this encounter [facility] 01-04-2025 Radiology Diagnostic study note [facility] [address] [place] [address] Ultrasound Report Signed Patient: Bhupendra Rubi MR#: [id number] : 1950 Acct:[id number] Age/Sex: 74 / F ADM Date: 5 Loc: [facility] Room: Type: [facility] Attending Dr: Adam Keller MD Ordering Provider: [...] Valladares MD,FACS,FSVS 01/04/2025 2:59 PM Dictation Location: [place] [address] Tech: Yakelin Gibson Transcribed By: JOSE MIGUEL 01/04/25 1459 Dictated By: Nigel Valladares MD 01/04/25 1458 Signed By: 01/04/25 145 [facility] Work Phone: 01-04-2025 Evaluation note Diagnosis Onset [...] 11 2:51pm Seizure-like activity acute Feb 2:51pm [facility] Work Phone: 1(465) 334-782106-11-2025 History of Present illness Narrative* Wendy Burden NP - 12/21/2024 6:35 PM EDTAssociated Problem(s): Tobacco dependency The patient has been advised of the risks of continued smoking: stroke, [place], all forms of cancer, lung disease, and [...] laying sitting eating; everything. documented in this encounterSaint Luke's [id number] Instructions* Patient Instructions* Wendy Burden NP - 12/21/2024 4:00 PM EDT We will order CT scan abd/pelvis area First get labs completed for me Stop nexium (esomeprazole), we will trial pantoprazole 40mg daily documented in this encounterSaint Luke's [id number] Miscellaneous Notes* Telephone Encounter - Brenna Morel [...] Abdi Kimble and patient was admitted to [place]. What is a good call back number? [place] [phone] Please Advise. Would patient need to schedule [...] scheduling an appt with the patient when production underwriter was giving the address and sherealized we are located in [place]. She stated she doesn't want [place] and that she will not go to [place]. She then disconnected the call Insole Rounder canceled the appt. documented in this encounterUK Healthcare06-09-2025 Telephone encounter Note* Telephone Encounter - Brenna [...] Abdi Kimble and patient was admitted to [place]. What is a good call back number? [place] [phone] Please Advise. Would patient need to schedule new patient appointment with stroke or general neurology? Patient significant other is requesting a call back to schedule. Thank you so much. [facility] [id number] Telephone encounter Note* Telephone Encounter - Stephanie Crawford RN - 12/19/2024 12:56 PM EDT Okay to schedule with carlos/fellow/homar. [facility] [id number] Telephone encounter Note* Telephone Encounter - Isabella Stokes - 12/19/2024 12:56 PM EDT Was in the middle of scheduling an appt with the patient when production underwriter was giving the address and sherealized we are located in [place]. She stated she doesn't want [place] and that she will not go to [place]. She then disconnected the call Insole Rounder canceled the appt. [facility] [id number] Evaluation note* Diagnosis Onset Date Resolution Status Admit Date Non-small cell lung cancer acute November 14, 2024 11:18am [facility] Work Phone: 1(664) 198-911205-05-2025 Evaluation note* Diagnosis Onset Date Resolution Status Admit Date Non-small cell lung cancer acute November 14, 2024 11:18am Abdominal aortic aneurysm (A AA) 3.0 cm to 5.0 cm in diameter in female acute January 04, 2025 9:40am [facility] Work Phone: 1(841) 245-707405-05-2025 Evaluation note* Diagnosis Onset Date Resolution Status [...] 2025 2:51pm Seizure acute February 11 2:51pm [facility] Work Phone: 1(468) 815-163504-17-2025 History of Present illness Narrative* Wendy Burden NP - 10/27/2024 4:59 PM EDTAssociated Problem(s): Adenocarcinoma of left lung (CMS/HCC) Continue with oncology * Wendy Burden NP - 10/27/2024 10:30 AM EDT Images from the original note were not included. Bhupendra Rubi is a 74 y.o. female presents with chief complaint of No chief complaint on file. HPI: Here for hospital/ long term fu: [facility] ER for CVA 10/04/24, then to [place] for rehab See notes for hospital notes [...] daily atorvastatin (LIPITOR) 80 mg, Oral, Daily Hnklczn-Rpwpivqfcjy-Eudbmvwpus (Breztri Aerosphere) 160-9-4.8 MCG/ACT aerosol 2 puffs, [...] of the risks of continued smoking: stroke, [place], all forms of cancer, lung disease, and [...] accident) (CMS/HCC) - Primary recent hospitalization at [facility] around 10/04/24, was also sent to [...] of the risks of continued smoking: stroke, OH, all forms of cancer, lung disease, and [...] (cerebral vascular accident) (CMS/HCC) recent hospitalization at [facility] around 10/04/24, was also sent to [...] to let me know documented in this encounterSaint Luke's [id number] Instructions* Patient Instructions* Wendy Burden NP - 10/27/2024 10:30 AM EDT Mammogram: [facility], they will call to schedule you Please call Neurology office to get an appointment documented in this encounterSaint Luke's [id number] History of Present illness Narrative* TIAGO Garcia [...] Review Audit Reviewed by Yakelin Powell MA (Family Mediator) on 09/26/24 at 1022 Medication Order Taking? Sig Documenting Provider Last Dose Status albuterol HFA 90 mcg/act inhaler [id number] Inhale 2 puffs every 4 (four) hours if needed for wheezing or shortness of breath Shaikh Aung MD Active atorvastatin (Lipitor) 80 MG tablet [id number] Take 1 tablet (80 mg) by mouth Daily Chris Singh NP 08/02/24 5633 Ryteaqf-Bvufjhecdhe-Tgllattbcn (Breztri Aerosphere) 160-9-4.8 MCG/ACT aerosol [id number] Inhale 2 puffs in the morning and 2 puffs before bedtime. Chris Singh NP Active ezetimibe (Zetia) 10 MG tablet [id number] Take 1 tablet (10 mg) by mouth in the morning. Shaikh Aung MD 08/02/24 2359 gabapentin (Neurontin) 300 MG capsule [id number] Take 1 capsule (300 mg) by mouth in the morning and 1 capsule (300 mg) in the evening and 1 capsule (300 mg) before bedtime. Chris Singh NP Active lacosamide (Vimpat) 150 mg tablet tablet [id number] Take 150 mg by mouth in the morning and 150 mg inthe evening. Active lamoTRIgine (LaMICtal) 100 MG tablet [id number] Take 100 mg by mouth in the morning. Do not start before July 28, 2024. Active losartan (Cozaar) 25 MG tablet [id number] Take 25 mg by mouth in the morning. Active rOPINIRole (Requip) 0.5 MG tablet [id number] Take 1 tablet (0.5 mg) by mouth at bedtime Shaikh Aung MD Active traZODone (Desyrel) 100 MG tablet [id number] Take 1 tablet (100 mg) by mouth [...] pin prick in the right side. Coordination Uvrdxq-ok-emvr, rapid alternating movements and fvxy-lm-dbut normal bilaterally without dysmetria. Gait Normal casual, toe, heel and tandem gait. Motor Examination RUE Strength deltoid, biceps, triceps, wrist extensors, wrist extensors, wrist flexor, asset protection greeter strength 4/5. LUE Strength deltoid, biceps, triceps, wrist extensors, wrist extensors, wrist flexor, asset protection greeter strength 5/5. RLE Strength illopsoas, quadriceps, tibialis [...] seizure-like episode in June and went to [facility] and then transferred to [place]. The episode that she had presented as [...] up in 4 weeks documented in this encounterSaint Luke's [id number] History of Present illness Narrative* Romel Sampson [...] Review Audit Reviewed by Lashaun Reynaga MA (Family Mediator) on 08/02/24 at 1158 Medication Order Taking? Sig Documenting Provider Last Dose Status albuterol HFA 90 mcg/act inhaler [id number] Inhale 2 puffs every 4 (four) hours if needed for wheezing or shortness of breath Shaikh Aung MD Active atorvastatin (Lipitor) 80 MG tablet [id number] Take 1 tablet (80 mg) by mouth Daily Chris Singh NP Active Ierrwig-Qsedlmdlebc-Qnzguookka (Breztri Aerosphere) 160-9-4.8 MCG/ACT aerosol [id number] Inhale 2 puffs in the morning and 2 puffs before bedtime. Chris Singh NP Active ezetimibe (Zetia) 10 MG tablet [id number] Take 1 tablet (10 mg) by mouth in the morning. Shaikh Aung MD Active Discontinued 08/02/24 1054 Discontinued 08/02/24 1118 gabapentin (Neurontin) 300 MG capsule [id number] Take 1 capsule (300 mg) by mouth in the morning and 1 capsule (300 mg) in the evening and 1 capsule (300 mg) before bedtime. Chris Singh NP Active lacosamide (Vimpat) 150 mg tablet tablet [id number] Take 150 mg by mouth in the morning and 150 mg inthe evening. Active lamoTRIgine (LaMICtal) 100 MG tablet [id number] Take 100 mg by mouth in the morning. Do not start before July 28, 2024. Active Discontinued 08/02/24 1055 Discontinued 08/02/24 1055 losartan (Cozaar) 25 MG tablet [id number] Take 25 mg by mouth in the morning. Active Discontinued 08/02/24 1056 rOPINIRole (Requip) 0.5 MG tablet [id number] Take 1 tablet (0.5 mg) by mouth at bedtime Shaikh Aung MD 05/23/24 4589 Discontinued 08/02/24 1118 traZODone (Desyrel) 100 MG tablet [id number] Take 1 tablet (100 mg) by mouth at bedtime Chris Singh NP Active Discontinued 08/02/24 1057 HPI HPI Ms. Rubi is a 74 year old female who I was asked to see in neurological consultation at the request of Dr. Lundberg for seizures. She states that she has had 2 seizures. She was seen at [facility] and [facility] and was transferred to [place]. She admits LOC and body shaking. She [...] pin prick in the right side. Coordination Lprrlg-ea-xnxz, rapid alternating movements and hopg-pt-meft normal bilaterally without dysmetria. Gait Normal casual, toe, heel and tandem gait. Motor Examination RUE Strength deltoid, biceps, triceps, wrist extensors, wrist extensors, wrist flexor, asset protection greeter strength 4/5. LUE Strength deltoid, biceps, triceps, wrist extensors, wrist extensors, wrist flexor, asset protection greeter strength 5/5. RLE Strength illopsoas, quadriceps, tibialis [...] seizure-like episode in June and went to [facility] and then transferred to [place]. The episode that she had presented as [...] options. I have reviewed the records from [facility] and [facility] Continue Vimpat 150 mg bid for seizure [...] side effects from medications. documented in this encounterSaint Luke's [id number] History of Present illness Narrative* Chris Singh NP - 08/02/2024 11:00 AM EST Subjective : [...] mg) by mouth Daily 90 tablet 0 Jmdlgil-Eajednmarie-Ojhnjpopkk (Breztri Aerosphere) 160-9-4.8 MCG/ACT aerosol Inhale 2 [...] Do you have a medical power of attorney at law?: Yes Who is your medical power of attorney at law?: charito son Objective : BP 128/76 Pulse [...] on August 02, 2024 documented in this encounterSaint Luke's HospitalAzdzyrerfc31-59-5896 Evaluation note* Diagnosis Onset Date Resolution Status Admit Date Non-small cell lung cancer acute July 28, 2024 1:45pm [facility] Work Phone: 1(214) 790-263801-06-2025 Miscellaneous Notes* Telephone Encounter - Lay Chacon - 07/18/2024 2:17 PM EST Henok from [facility] called to request a refill of the patient's lacosamide (VIMPAT) 150 mg tablet. Insole Rounder informed her that the prescription was sent on 06/17/2024 with 3 refills to [facility] Ellen voiced understanding and stated she would inform the patient documented in this encounterUK Healthcare01-06-2025 Telephone encounter Note* Telephone Encounter - Lay Chacon - 07/18/2024 2:17 PM EST Henok from [facility] Family called to request a refill of the patient's lacosamide (VIMPAT) 150 mg tablet. Insole Rounder informed her that the prescription was sent on 06/17/2024 with 3 refills to [facility] Ellen voiced understanding and stated she would inform the patient [facility]12-10-2024 NotePatient: Bhupendra Rubi Procedure Summary Date: 06/21/24 Room / Location: [facility] [place] [facility] Anesthesia Start: 1343 Anesthesia Stop: 1444 [...] PACU per anesthesia protocol. No notable events documented.[facility]12-10-2024 Note Airway Date/Time: 06/21/2024 1:49 PM Urgency: elective General Information and Staff Patient location during procedure: OR Anesthesiologist: Jacki Rivas MD Resident/KANDY/MENDEZ: MENDEZ Guzman Performed: resident/KANDY/EMNDEZ Indications and Patient Condition Indications for airway [...] approach: 1 Number of other approaches attempted: 0[facility] 06-21-2024 NotePatient: Bhupendra Rubi Procedure Information Date/Time: 06/21/24 1200 Scheduled providers: Jacki Rivas MD; MENDEZ Guzman; Florinda Sandoval MD Procedure: DIAGNOSTIC COLONOSCOPY Location: [facility] [place] [facility] Past Medical History: Diagnosis Date Anxiety [...] activity since being treated last week at [facility] Anesthesia Plan ASA 3 general (Due to new onset seizure like activity, spoke with neurologist who took care of patient at [facility]. Recommendation by neurology was to give IV [...] neuro events in perioperative period. Additional Equipment RequestsBarberton Citizens Hospital12-10-2024 Note Patient: Bhupendra Rubi Procedure Summary Date: 06/21/24 Room / Location: [facility] [place] [facility] Anesthesia Start: 1343 Anesthesia Stop: 1444 Procedure: DIAGNOSTIC COLONOSCOPY Diagnosis: Polyp of ascending colon, unspecified type Colonic mass Scheduled Providers: Jacki Rivas MD; MENDEZ Guzman; Florinda Sandoval MD Responsible Provider: Jacki Rivas MD Anesthesia Type: general ASA Status: 3 Anesthesia Post Transport Note Transport to: PACU O2 Route: room air Patient Monitor: direct observation Transport: uneventful Patient condition is: stableUnOhioHealth Grady [facility]12-10-2024 Miscellaneous Notes* Telephone Encounter - Casi Fitzgerald - 06/21/2024 8:11 AM EST ----- Message from Bailey Alba MD sent at 06/17/2024 2:34 PM EST ----- Please schedule this patient for a follow-up appointment in the resident clinic in 4-6 weeks of discharge Diagnosis: New onset seizures * Telephone Encounter - Kateryna Covarrubias - 06/21/2024 8:11 AM EST 1st attempt: Insole Rounder contacted patient and left a voicemail offering to schedule in with our clinic for a hospital follow up appointment as we have received a provider message requesting to see patient in office. Insole Rounder provided callback number for scheduling or to address any questions or concerns they may have. * Telephone Encounter - Ange Rashad - 06/21/2024 8:11 AM EST 2nd attempt: Left message for patient documented in this encounterUK Healthcare12-10-2024 Telephone encounter Note* Telephone Encounter - Casi Amilcar - 06/21/2024 8:11 AM EST ----- Message from Bailey Alba MD sent at 06/17/2024 2:34 PM EST ----- Please schedule this patient for a follow-up appointment in the resident clinic in 4-6 weeks of discharge Diagnosis: New onset seizures [facility] [id number] Telephone encounter Note* Telephone Encounter - Kateryna Covarrubias - 06/21/2024 8:11 AM EST 1st attempt: Insole Rounder contacted patient and left a voicemail offering to schedule in with our clinic for a hospital follow up appointment as we have received a provider message requesting to see patient in office. Insole Rounder provided callback number for scheduling or to address any questions or concerns they may have. [facility] [id number] Telephone encounter Note* Telephone Encounter - Angekaylene Solorzano - 06/21/2024 8:11 AM EST 2nd attempt: Left message for patient [facility] [id number] History of Present illness Narrative* Javier Villanueva [...] 23. She is having that done in [place]. She has not having any abdominal pain. She has not having any blood in his stool. SUBJECTIVE: MEDICATIONS: ALLERGIES Current Outpatient Medications Medication Instructions albuterol HFA 90 mcg/act inhaler 2 puffs, Inhalation, Every 4 hours PRN atorvastatin (LIPITOR) 80 mg, Oral, Daily Eemnfdb-Odmhzbjtctg-Bbizbnqoym (Breztri Aerosphere) 160-9-4.8 MCG/ACT aerosol 2 puffs, [...] had this sent for 2nd opinion at [facility] and they did not identify any [...] week after her colonoscopy. documented in this encounterSaint Luke's HospitalCanvtwymfm59-25-7913 History of Present illness Narrative* Chris Singh [...] who presents for Follow-up. HPI Following with Anisa-Onc Dr. Lundberg GI- Dr. Mohr General Surgery- Dr. Villanueva Pulmonology- Dr. Ngoc Kirby is here today for a routine follow up. She recently was referred to naisa/onc, pulmonary, and gen surgery for lung mass. 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 Recently had EBUS at [facility], is scheduled for colonoscopy as well. Is following closely with allspecialists. There is pending pathology. She reports she is feeling very overwhelmed and uncertain of all of her diagnosis. I did reach out to Dr. Lundberg, anisa/luna while in office with patient who was [...] additional. Pathology reports pending. documented in this encounterSaint Luke's HospitalHukasazrfz55-98-2225 Instructions* Patient Instructions* Chris Singh NP - 05/23/2024 10:30 AM EST Follow up with Dr. Lundberg's office this week. Have colonoscopy scheduled. Call if you need anything! documented in this encounterSaint Luke's HospitalHhgsepejas93-37-7947 NoteAddendum created 05/20/24 5842 by Marilia Pennington MD Intraprocedure Meds editedUnOhioHealth Grady [facility] Hospital11-06-2024 Note Patient: Bhupendra Rubi Procedure Summary Date: 05/18/24 Room / Location: [facility] Main Operating Room Anesthesia [...] PACU per anesthesia protocol. No notable events documented.[facility]11-06-2024 Note Patient's significant other at bedside. He states he was not updated post procedure by Dr. Warren or his fellow Dr. Hamlin. RN notified physician of family's request for update and chest xray was completed, but needs to be read prior to discharge.[facility]11-06-2024 NoteAirway Date/Time: 05/18/2024 12:57 PM Urgency: elective General Information and Staff Patient location during procedure: OR Anesthesiologist: Micky Hilliard MD Resident/DRUM HANDLER/CAA: Marilia Pennington MD Performed: resident/DRUM HANDLER/CAA Indications and Patient Condition Indications for airway [...] approach: 1 Number of other approaches attempted: 0[facility] 05-18-2024 NotePatient: Bhupendra Rubi Procedure Information Date/Time: 05/18/24 1230 Scheduled providers: Diana Warren MD; Micky Hilliard MD Procedure: BRONCHOSCOPY Location: [facility] Main Operating Room Relevant [...] speech affected (+) CVA (cerebral vascular accident) ([facility]/HCC) Pulmonary (+) Moderate COPD (chronic obstructive pulmonary disease) ([facility]) Clinical information reviewed: Tobacco Allergies Meds Problems [...] products. Plan discussed with resident. 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 Do not wear perfume, make-up, nail chilean, or lotions on the day of your [...] need to make any changes, please call [phone]. Notify your surgeon if you develop any illness such as a cold, cough, fever, sore throat or vomiting between now and your surgery. Thank you for entrusting us with your care. [facility] Surgical Services TeamBarberton Citizens Hospital10-30-2024 Evaluation note* Diagnosis Onset Date Resolution Status Admit Date High grade dysplasia in colonic adenoma acute May 11 1:25pm History of hypotension acute Oc tober 2023 1:25pm Mass of upper lobe of left lung acute May 11 1:25pm Non-small cell lung cancer acute July 28, 2024 1:45pm [facility] Work Phone: 1(233) 130-696410-29-2024 History of Present illness Narrative* Javier Villanueva, [...] PRN atorvastatin (LIPITOR) 80 mg, Oral, Daily Igrtbuv-Zzsyzablxcb-Hctdoedjbo (Breztri Aerosphere) 160-9-4.8 MCG/ACT aerosol 2 puffs, [...] invasive adenocarcinoma . I Communicated with her jelly filter tender, he felt this was completely removed. I am sending her pathology to [facility] for 2nd opinion. Patient is having her lung mass worked up with a biopsy in [place] and is supposed to get a 2nd [...] I discussed that with Dr. Moon her jelly filter tender. documented in this encounterSaint Luke's HospitalKawgbgetpy63-75-7215 Note Attestation signed by Diana Warren MD [...] Age: 73 y.o. : 1950 Account No.: [id number] Referring physician: Dr. Lundberg Chief complaint: Lung [...] was initiated by the patient and conducted tww-fcmb-xd-face with use of audio-only real time telephone [...] no pruritus. Physical examination (more content not included)...[facility]09-13-2024 History of Present illness Narrative* Chris [...] them to next visit. documented in this encounterSaint Luke's HospitalPfrvxhhsww02-76-5610 [facility] noteAccess [facility]09-[facility] Instructions* Patient Instructions* Chris Singh NP - 03/24/2024 11:30 AM EDT Keep all appointments with specialists as scheduled Call if you need anything! [facility]* Encounter Date Diagnosis Assessment [...] were addressed she understands agrees the plan. [facility] Other 07-31-2023 Evaluation note* Encounter Date Diagnosis Assessment Notes Treatment Notes Treatment Clinical Notes Jan, Abdominal aortic aneurysm (AAA) without rupture, unspecified part (ICD-10 - I71.40) We reviewed her abdominal CT imaging from outside facility at the [facility] which shows AAA 3.4 cm in [...] her risk and is unmotivated to quit. [facility] Other 06-14-2023 Hospital Discharge instructions Patient Education [...] Follow these instructions at home: Medicines Take nnlr-tlt-hciipxb and prescription medicines only as told by [...] Watch your condition for any changes. Take eevr-isq-qjztqsg and prescription medicines only as told by [...] provider. Document Revised: 08/17/2020 Document Reviewed: 11/07/2019 [employer] Patient Education 2022 [employer]. Follow Up Care 12/15/2022 11:25:23 With:Brigette Martini CNP Address: When:1 month [facility] 11-28-2022 Hospital Discharge instructions [...] fried and sweet foods. General instructions Take dqrh-mkq-xcagfok and prescription medicines only as told by [...] 04/25/2010 Document Revised: 10/20/2019 Document Reviewed: 07/15/2018 [employer] Patient Education 2020 [employer]. Follow Up Care 05/09/2022 11:00:12 With:TRISTA FARFAN, Armando Mckay, URL Address: [facility] [address] [place] [address]- When: Unknown [facility] evaluation + Plan note No data available for this section [facility] evaluation + Plan note Future Appointments Appointment Date:12/29/2022 10:30:00 AM Scheduled Provider: Location:.[facility] Appointment Type:US Abdominal/Pelvis (FT) Appointment Date:02/18/2023 08:15:00 AM Scheduled Provider: Location:[facility] Appointment Type:Surgery FT Future Scheduled Tests Radiology* US Abdomen, Limited 12/29/22 [facility] Evaluation + Plan note Future Appointments Appointment Date:02/18/2023 08:15:00 AM Scheduled Provider: Location:[facility] Future Appointments Appointment Date:01/07/2023 11:00:00 AM Scheduled Provider: Location:.[facility] Appointment Type:CT Abdomen (FT) Appointment Date:02/18/2023 08:15:00 AM Scheduled Provider: Location:[facility] Appointment Type:Surgery FT Future Scheduled Tests Radiology* CT Abdomen w/ Contrast [facility]07[facility] Diagnosis RLS (restless legs syndrome)- Primary Restless legs syndrome (RLS) Moderate COPD (chronic obstructive pulmonary disease) ([facility]/HCC) documented in this encounter [facility] Healthcare[facility] noteNo assessment information available[facility] Work Phone: Evaluation note* Diagnosis Onset Date Resolution Status Abdominal aortic aneurysm (A AA) 3.0 cm to 5.0 cm in diameter in female acute [facility] Work Phone: evaluation note* Diagnosis Tobacco dependency- Primary Tobacco use disorder Hyperlipidemia, unspecified hyperlipidemia type ([facility]/HCC) H/O: CVA (cerebrovascular accident) Primary hypertension ([facility]/HCC) Unspecified essential hypertension Moderate COPD (chronic obstructive pulmonary disease) ([facility]/HCC) RLS (restless legs syndrome) Restless legs [...] Mass of left lung- Primary Primary hypertension ([facility]/HCC)- Primary Unspecified essential hypertension Moderate COPD (chronic obstructive pulmonary disease) ([facility]/HCC) Hyperlipidemia, unspecified hyperlipidemia type ([facility]/HCC) Gastroesophageal reflux disease without esophagitis Esophageal reflux H/O: CVA (cerebrovascular accident) Wellness examination History of colon polyps Chronic abdominal pain Abdominal pain, unspecified site Primary hypertension ([facility]/HCC)- Primary Unspecified essential hypertension Hyperlipidemia, unspecified hyperlipidemia type ([facility]/HCC) Gastroesophageal reflux disease without esophagitis Esophageal reflux documented in this encounter [facility]* Diagnosis Tobacco dependency- Primary Tobacco use disorder Hyperlipidemia, unspecified hyperlipidemia type ([facility]/HCC) H/O: CVA (cerebrovascular accident) Primary hypertension ([facility]/HCC) Unspecified essential hypertension Moderate COPD (chronic obstructive pulmonary disease) ([facility]/HCC) RLS (restless legs syndrome) Restless legs syndrome (RLS) Peripheral polyneuropathy Screening mammogram for breast cancer Medicare annual wellness visit, subsequent RLS (restless legs syndrome)- Primary Restless legs syndrome (RLS) Peripheral polyneuropathy Moderate COPD (chronic obstructive pulmonary disease) ([facility]/HCC) Hyperlipidemia, unspecified hyperlipidemia type ([facility]/HCC) Primary hypertension ([facility]/HCC) Unspecified essential hypertension Chronic abdominal pain Abdominal pain, unspecified site Moderate COPD (chronic obstructive pulmonary disease) (CMS/HCC)- Primary Primary hypertension ([facility]/HCC) Unspecified essential hypertension Moderate COPD (chronic [...] of ascending colon documented in this encounter [facility]* Diagnosis Tobacco dependency- Primary Tobacco [...] left lung- Primary documented in this encounter [facility]* Diagnosis Tobacco dependency- Primary Tobacco [...] Tobacco use disorder Hyperlipidemia, unspecified hyperlipidemia type ([facility]/HCC) H/O: CVA (cerebrovascular accident) Primary hypertension [...] pulmonary disease) (CMS/HCC) documented in this encounter [facility]* Diagnosis Moderate COPD (chronic obstructive pulmonary disease) (CMS/HCC)- Primary documented in this encounter [facility]* Diagnosis Mixed hyperlipidemia (CMS/HCC)- Primary Mixed hyperlipidemia Hyperlipidemia, unspecified hyperlipidemia type (CMS/HCC) documented in this encounter [facility]* Diagnosis Tobacco dependency- Primary Tobacco use disorder Hyperlipidemia, unspecified hyperlipidemia type ([facility]/HCC) H/O: CVA (cerebrovascular accident) Primary hypertension [...] Unspecified essential hypertension Hyperlipidemia, unspecified hyperlipidemia type ([facility]) Mass of left lung- Primary Medicare annual wellness visit, subsequent- Primary Other polyneuropathy Psychophysiological insomnia Persistent disorder of initiating or maintaining sleep documented in [facility] encounter [facility]* Diagnosis Tobacco dependency- Primary Tobacco use disorder Hyperlipidemia, unspecified hyperlipidemia type ([facility]) H/O: CVA (cerebrovascular accident) Primary hypertension ([facility]) Unspecified essential hypertension Moderate COPD (chronic obstructive pulmonary disease) ([facility]) RLS (restless legs syndrome) Restless legs syndrome (RLS) Peripheral polyneuropathy Screening mammogram for breast cancer Medicare annual wellness visit, subsequent RLS (restless legs syndrome)- Primary Restless legs syndrome (RLS) Peripheral polyneuropathy Moderate COPD (chronic obstructive pulmonary disease) ([facility]) Hyperlipidemia, unspecified hyperlipidemia type ([facility]/HCC) Primary hypertension ([facility]) Unspecified essential hypertension Chronic abdominal pain Abdominal pain, unspecified site Moderate COPD (chronic obstructive pulmonary disease) ([facility])- Primary Primary hypertension ([facility]) Unspecified essential hypertension Moderate COPD (chronic obstructive pulmonary disease) ([facility])- Primary Mass of left lung Primary hypertension ([facility]) Unspecified essential hypertension Syncope and collapse Mass of left lung- Primary Mass of left lung- Primary Primary hypertension ([facility])- Primary Unspecified essential hypertension Moderate COPD (chronic obstructive pulmonary disease) ([facility]) Hyperlipidemia, unspecified hyperlipidemia type ([facility]) Gastroesophageal reflux disease without esophagitis Esophageal reflux H/O: CVA (cerebrovascular accident) Wellness examination History of colon polyps Chronic abdominal pain Abdominal pain, unspecified site Primary hypertension ([facility])- Primary Unspecified essential hypertension Hyperlipidemia, unspecified hyperlipidemia type ([facility]) Mass of left lung- Primary Alteration of awareness History of stroke Transient ischemic attack (TIA), and cerebral infarction without residual deficits documented in [facility] encounter [facility]* Diagnosis Tobacco dependency- Primary Tobacco use disorder Hyperlipidemia, unspecified hyperlipidemia type ([facility]) H/O: CVA (cerebrovascular accident) Primary hypertension ([facility]) Unspecified essential hypertension Moderate COPD (chronic obstructive pulmonary disease) ([facility]) RLS (restless legs syndrome) Restless legs syndrome [...] pulmonary disease) (CMS/HCC) Hyperlipidemia, unspecified hyperlipidemia type ([facility]/HCC) Gastroesophageal reflux disease without esophagitis Esophageal reflux H/O: CVA (cerebrovascular accident) Wellness examination History of colon polyps Chronic abdominal pain Abdominal pain, unspecified site Primary hypertension ([facility]/HCC)- Primary Unspecified essential hypertension Hyperlipidemia, unspecified hyperlipidemia type ([facility]/HCC) Mass of left lung- Primary Alteration of awareness- Primary History of stroke Transient ischemic attack (TIA), and cerebral infarction without residual deficits [facility]* Diagnosis Tobacco dependency- Primary Tobacco use disorder Hyperlipidemia, unspecified hyperlipidemia type ([facility]/HCC) H/O: CVA (cerebrovascular accident) Primary hypertension ([facility]/HCC) Unspecified essential hypertension Moderate COPD (chronic obstructive pulmonary disease) ([facility]/HCC) RLS (restless legs syndrome) Restless legs syndrome (RLS) Peripheral polyneuropathy Screening mammogram for breast cancer Medicare annual wellness visit, subsequent RLS (restless legs syndrome)- Primary Restless legs syndrome (RLS) Peripheral polyneuropathy Moderate COPD (chronic obstructive pulmonary disease) (CMS/HCC) Hyperlipidemia, unspecified hyperlipidemia type ([facility]/HCC) Primary hypertension ([facility]/HCC) Unspecified essential hypertension Chronic abdominal pain Abdominal pain, unspecified site Moderate COPD (chronic obstructive pulmonary disease) (CMS/HCC)- Primary Primary hypertension ([facility]/HCC) Unspecified essential hypertension Moderate COPD (chronic [...] for breast cancer documented in this encounter [facility]* Diagnosis Tobacco dependency- Primary Tobacco [...] Primary UTI symptoms documented in this encounter [facility]* [...] Primary Mixed hyperlipidemia documented in this encounter [facility]* Diagnosis Tobacco dependency- Primary Tobacco [...] Anxiety state, unspecified documented in this encounter [facility]* Diagnosis Onset Date Resolution Status Admit Date Non-small cell lung cancer acute November 14, 2024 11:18am [facility] Work Phone: Evaluation note* Diagnosis Tobacco dependency- [...] unspecified mechanism (HCC) documented in this encounter [facility]* [...] (AAA) without rupture documented in this encounter [facility]* Diagnosis Tobacco dependency- Primary Tobacco [...] Alteration of awareness documented in this encounter [facility]* Diagnosis Tobacco dependency- Primary [...] Inflamed seborrheic keratosis documented in this encounter [facility]* Diagnosis Tobacco dependency- Primary Tobacco [...] Syncope and collapse documented in this encounter [facility]* Diagnosis Tobacco dependency- Primary Tobacco [...] aneurysm (AAA) without rupture Syncope and collapse Seizure (HCC)- Primary Other convulsions Loss of consciousness (HCC) Other alteration of consciousness Carotid stenosis, bilateral Occlusion and stenosis of carotid artery without mention of cerebral infarction 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 Gait disturbance Abnormality of gait documented in this encounter [facility] and physical note Author Mikhail Moon [facility] March 25, 2024 10:35am Note Date/Time March 25, 2024 10:35am [facility] [address] [place] [address] Gastroenterology H&P Signed Patient: Bhupendra Rubi MR#: [id number] : 1950 Acct:[id number] Age/Sex: 73 / F Adm Date: 4 Loc: Room: Type: [facility] Attending Dr: Mikhail Moon MD [...] signed by Mikhail Moon MD> 03/25/24 1035 [facility] Work Phone: History general Narrative - Reported* Type Description Date Medical History GERD Medical History hypercholesterolemia Surgical History cholecystectomy Surgical History tubal ligation Surgical History shoulder surgery Hospitalization History see above [facility] Other History general Narrative - Reported* Type Description Date Medical History GERD Medical History hypercholesterolemia Medical History Carotid stenosis Surgical History cholecystectomy Surgical History tubal ligation Surgical History shoulder surgery Hospitalization History see above [facility] Other Hospital Discharge instructions No data available for this section [facility] Additional Instructions Stop your blood pressure medicine. Follow-up with your doctor without fail for reevaluation of blood pressure and left lung mass.[facility] Work Phone: Hospital Discharge instructionsAmbulatory Orders* Referral to General Surgery Location: None Selected [facility] Work Phone: Hospital Discharge instructions Additional Instructions Please wear home oxygen at 2l with any activity or exertion.[facility] Work Phone: InstructionsNot on filedocumented in this encounter [facility] filedocumented in this encounter [facility]ructionsNot on filedocumented in this encounter [facility] No data available for this section [facility] reason for referral (narrative)No reason for referral information availableAs[facility] Work Phone: Summary Purpose Family History No [...] DATE CREATED AUTHOR AUTHOR'S ORGANIZ ATION 12/17/2024 [facility] DATE CREATED AUTHOR AUTHOR'S ORGANIZ ATION 02/25/2025 [facility] DATE CREATED AUTHOR AUTHOR'S ORGANIZ ATION 03/09/2025 [facility] DATE CREATED AUTHOR AUTHOR'S ORGANIZ ATION 03/10/2025 [facility] DATE CREATED AUTHOR AUTHOR'S ORGANIZ ATION 03/15/2025 [facility] Patient Care team informatio n (unrecognized section [...] Provider Active Start: January 05, 2025 Yaneth Jose A Attending Provider Active Start: January 05, 2025 [...] Active Start: February 11, 2025 Personnel Name: WENDY BURDEN CNP Address: [address] [place] [id number] [email or web address]: Team Status: Active Member Role Status Dates [...] Active Start: November 14, 2024 Chris Singh NP-C Primary Care Provider Ac tive Start: November [...] Active Start: August 04, 2024 Chris Singh NP-C Primary Care Provider [...] Active Start: August 12, 2024 Chris Singh DEVELOPMENT GEOLOGIST-C Primary Care Provider Ac tive Start: August 12, 2024 Judit Martini MD Attending Provider Active Start: August 12, 2024 Team Status: Active Member Role Status Dates Nitza Russell MD Other Provider Active Start: 2024 Mikhail Moon MD Referring Provider Active Start: August 29, 2024 Chris Singh DEVELOPMENT GEOLOGIST-C Primary Care Provider Ac tive Start: August 29, 2024 Judit Martini MD Attending Provider Active Start: August 29, 2024 Team Status: Active Member Role Status Dates Nitza Russell MD Other Provider Active Start: 2024 Mikhail Moon MD Referring Provider Active Start: September 05, 2024 Chris Singh DEVELOPMENT GEOLOGIST-C Primary Care Provider Ac tive Start: September [...] Referring Provider Active Start: July 28, 2024 Latin Dancer Relationship Specialty Start Date End Date Chris Singh, ELECTRICIAN APPRENTICE-COTTON TIER [address] [place] [address] PCP - General Nurse Practitioner 06/13/24 Latin Dancer Relationship Specialty Start Date End Date Charanjit Chen MD [address] [place] [address] PCP - General Family Medicine 02/11/24 Chris Singh NP [address] [place] [place] [address] Nurse Practitioner Family Medicine 02/11/24 Anne Hartley LPN Licensed Practical Nurse Family Medicine 03/25/24 Team Status: Active Member Role Status Angelcia Horan MD Primary Care Provider Active Team [...] SHAIKH HORAN MD Address: Address: [address] [place] [address] Team Status: Active Member Role Status Angelica Horan MD Primary Care Provider Active Team Status: Inactive Member Role Status Angelica Horan MD Primary Care Provider Active Start: December 27, 2023 End: December 27, 2023 Emmett Bhakta MD Emergency Provider Active St art: December 27, 2023 End: December 27, 2023 Latin Dancer Relationship Specialty Start Date End Date Shaikh Horan MD PCP - General Internal Medicine 01/26/23 Shaikh Horan MD [address] [place] [address] PCP - Devoted 04/12/23 Personnel Name: SHAIKH HORAN Address: Address: [address] [place] [address] REASON FOR VISIT (unrecogniz ed section and content) Reason Onset Date Comments Med Refill 05/02/2024 Reason Comments Consult Colon polyp ref'd by Red Specialty Diagnoses / Procedures Referred By Contac t Referred To Contact General Surgery Diagnoses Benign neoplasm of colon, unspecified Procedures [place] OFFICE/OUTPATIENT NEW HIGH MDM 60 MINUTES Mikhail Moon MD [address] [facility] [address] [place] [address] Phone: tel: fax: [facility] [address] [facility] [address] [place] [address] Phone: tel: fax: Referral ID Status Reason Start Date Expiration Date V isits Requested Visits Authorized [id number] Closed Specialty Services Required 04/11/2024 10/08/2024 1 1 Reason Comments Follow-up Reason Comments Follow-up 1mo F/U Reason Onset Date Comments Hospital Follow-up 06/21/2024 Reason Onset Date Comments lacosamide (VIMPAT) 07/18/2024 Reason Comments Medicare Annual Wellness Visit [facility] Reason Comments Seizures Specialty Diagnoses / Procedures Referred By Contac t Referred To Contact Neurology Diagnoses Other seizures (CMS/HCC) Procedures [place] OFFICE/OUTPATIENT NEW LOW MDM 30 MINUTES Eryn Lundberg MD [address] [place] [address] Phone: tel: fax: Romel Sampson MD [address] [place] [address] Phone: tel: fax: Referral ID Status Reason Start Date Expiration Date V isits Requested Visits Authorized [id number] Closed Consult and Treat 07/22/2024 01/18/2025 1 [...] BE BASED ON THE PRIMARY CLINICAL RECORDS. [employer] provides no warranty or guarantee of the accuracy or completeness of information in this document.
[2025-03-22 10:09] LABS: Lamotrigine (Lamictal), Serum 9.2 ug/mL (2.0-20.0)
== END 2025-03-20 10:40 | disposition home or self-care (01) ==
PROVIDERS: PCP Nurse Practitioner; Visit Provider Psychiatry & Neurology Neurology
DX: R51.9 Headache, unspecified (principal); G40.909 Epilepsy, unspecified, not intractable, without status epilepticus; G62.9 Polyneuropathy, unspecified; R79.89 Other specified abnormal findings of blood chemistry; G60.9 Hereditary and idiopathic neuropathy, unspecified; Z11.3 Encounter for screening for infections with a predominantly sexual mode of transmission; E53.1 Pyridoxine deficiency; I70.91 Generalized atherosclerosis; M79.10 Myalgia, unspecified site; D51.3 Other dietary vitamin B12 deficiency anemia; E78.5 Hyperlipidemia, unspecified
CPT/HCPCS: 36415; 80175; 80235